=== PATIENT | female | born 1990 | race Caucasian/White ===

== ENCOUNTER 2023-05-31 16:06 | Outpatient (OUT) | payer BC, SELFPAY ==
--- NOTE | 2023-05-31 16:10 | US_ITS ---
[place] [id number] Patient Name: MYA CASTANEDA MRN: [id number] date: 1990 Sex: F Assigned Patient Location: US Current Patient Location: Accession/Order Number: [id number] Exam Date: 05/31/2023 16:25 Report Date: 06/03/2023 07:54 At the request of: ROCK HARRISON Procedure: US OB transvaginal EXAMINATION: US OB transvaginal HISTORY: Missed menses N92.6 COMPARISON: No relevant comparison available. FINDINGS: Bergeron intrauterine gestation Gestational sac: 1.79 cm, 6 weeks 1 day CRL: 0.62 cm, 6 weeks 3 days Yolk sac: 2.2 mm Heart rate: 119 bpm The uterus is normal, anteverted The ovaries are normal. 3.1 cm anechoic area in the left ovary likely represents a corpus luteal cyst. The cervix is closed measuring 4.2 cm Clinical age: 7 weeks 2 days Clinical CLIFFORD: 01/15/2024 Ultrasound age: 6 weeks 2 days Ultrasound CLIFFORD: 01/22/2024 US/US OB transvaginal IMPRESSION: Viable bergeron intrauterine gestation measuring 6 weeks 2 days Electronically authenticated by: IRENE ZUÑIGA Date: 06/03/2023 07:54
== END 2023-05-31 16:07 | disposition home or self-care (01) ==
LOC: US 16:06
PROVIDERS: Visit Provider Obstetrics & Gynecology
DX: Z34.91 Encounter for supervision of normal pregnancy, unspecified, first trimester (principal); Z3A.01 Less than 8 weeks gestation of pregnancy; N92.6 Irregular menstruation, unspecified
CPT/HCPCS: 76817

== ENCOUNTER 2023-06-28 16:34 | Outpatient (OUT) | payer BC, SELFPAY ==
[2023-06-28 17:12] LABS: Estimated Average Glucose 105 mg/dL; Glycohemoglobin A1C 5.3 % (4.5-6.2)
[2023-06-28 17:15] LABS: Basophils Percent Auto 0.3 % (0.2-2.0); Eosinophils Percent Auto 0.5 % (0.9-7.0); Hematocrit 34.5 % (36.0-48.0); Hemoglobin 11.8 g/dL (12.0-16.0); Immature Granulocytes Abs Auto 0.02 10^3/uL (0.00-0.03); Immature Granulocytes Pct Auto 0.3 % (0.0-0.5); Lymphocytes Absolute Auto 2.5 10^3/uL (1.2-3.8); Lymphocytes Percent Auto 33.2 % (20.5-60.0); Mean Corpuscular HGB Conc 34.2 g/dL (29.9-35.2); Mean Corpuscular Hemoglobin 29.7 pg (26.7-34.0); Mean Corpuscular Volume 86.9 fL (81.0-99.0); Mean Platelet Volume 9.6 fL (9.5-13.5); Monocytes Absolute Auto 0.4 10^3/uL (0.3-0.8); Monocytes Percent Auto 5.4 % (1.7-12.0); Neutrophils Absolute Auto 4.5 10^3/uL (1.4-6.5); Neutrophils Percent Auto 60.3 % (43.0-75.0); Platelet Count 286 10^3/uL (150-450); Red Blood Count 3.97 10^6/uL (4.20-5.40); Red Cell Distribution Width 13.4 % (11.0-15.0); White Blood Count 7.4 10^3/uL (4.0-11.0)
[2023-06-28 18:54] LABS: BOX Test Sent Out Y
[2023-06-30 08:07] LABS: HIV Ab/p24 Ag Screen Non Reactive (Non Reactive)
[2023-06-30 10:08] LABS: HBsAg Screen Negative (Negative)
[2023-06-30 12:08] LABS: HCV Ab Non Reactive (Non Reactive); Rapid Plasma Reagin, Quant Non Reactive titer (NonRea<1:1)
== END 2023-06-28 16:35 | disposition home or self-care (01) ==
PROVIDERS: Visit Provider Obstetrics & Gynecology
DX: N92.6 Irregular menstruation, unspecified (principal); Z36.0 Encounter for antenatal screening for chromosomal anomalies
CPT/HCPCS: 36415; 83036; 85025; 86592; 86762; 86803; 86850; 86900; 86901; 87086; 87340; 87389

== ENCOUNTER 2023-08-12 20:31 | Outpatient (REF) | payer BC, SELFPAY ==
--- OUTSIDE RECORDS SUMMARY | 2023-08-12 20:42 | XMS_ITS | CCD ---
Author Organization [facility] Inform ion Partnership [facility] Care Team Providers Care Pastry Finisher Name Role Phone Unavailable Primary Care Provider Unavailisaac HARRISON ., DR WILKERSON Admitting Unavailable CHRISTY ., DR WILKERSON Attending Unavailable CHRISTY ., DR WILKERSON Consulting Unavailable IUKA, DR IRENE Dee Consulting Unavailable CHRISTY ., DR WILKERSON Attending Unavailable CHRISTY ., DR WILKERSON Admitting Unavailable CHRISTY ., DR WILKERSON Consulting Unavailable ROCK HARRISON Attending Unavailable LADONNA CEBALLOS Attending Unavailable Problems Problem Classification Problem Date Documented Date Episodic/Chronic Abdominal pain (1 source) Pelvic and perineal pain; Translations: [PELVIC AND PERINEAL PAIN] Onset: 05-23-2022 Episodic Immunizations and screening for infectious disease (1 source) Encounter for screening for human papillomavirus (HPV); Translations: [ENC SCREENING HUMAN PAPILLOMAVIRUS] Onset: 05-23-2022 Episodic Other screening for suspected conditions (not mental disorders or infectious disease) (4 sources) Encounter for screening for malignant neoplasm of cervix; Translations: [ENC SCREENING MALIG NEOPLASM CERV] Onset: 05-17-2022 Episodic Ovarian cyst (1 source) Other ovarian cyst, right side; Translations: [OTHER OVARIAN CYST RIGHT SIDE] Onset: 05-23-2022 Episodic Results Test Name Value Interpretation Reference Range Facility PAP ACOG PANEL 2: 21 to 29on 05-24-2022 . . Normal [facility] Comment on above: Performed By: #### [id number] #### [facility] [address] [place], [place] [address] Dr. Michael Garrett Age Gdln ACOG Testing 21-[address] [facility] Comment on above: Performed By: #### [id number] #### [facility] [address] [place] [address] Dr. Michael Garrett DIAGNOSIS: Comment Normal [facility] Comment on above: Result Comment: NEGA TIVE FOR INTRAEPITHELIAL LESION OR MALIGNANCY. CELLULAR CHANGES ASSOCIATED WITH INFLAMMATION ARE PRESENT. Performed By: #### [id number] #### [facility] [address] [place] [address] Dr. Michael Garrett Methodology: Comment [facility] Comment on above: Result Comment: This liquid based ThinPrep(R) pap test was screened with the use of an image guided system. Performed By: #### [id number] #### [facility] [address] [place] [address] Dr. Michael Garrett Note: Comment Normal [facility] Comment on above: Result Comment: The Pap smear is a screening test designed to aid in the detection of premalignant and malignant conditions of the uterine cervix. It is not a diagnostic procedure and should not be used as the sole means of detecting cervical cancer. Both false-positive and false-negative reports do occur. . Performed By: #### [id number] #### [facility] [address] [place] [address] Dr. Michael Garrett Performed by: Comment Normal [facility] Comment on above: Result Comment: Francisco Otero, Shift Supervisor Melting (ASCP) Performed By: #### [id number] #### [facility] [address] [place] [address] Dr. Michael Garrett Reflex Criteria: Comment [facility] Comment on above: Result Comment: The HPV DNA reflex criteria were not met with this specimen result therefore, no HPV testing was performed. . Performed By: #### 4 [id number] #### [facility] [address] [place] [address] Dr. Michael Garrett Specimen adequacy: Comment [facility] Comment on above: Result Comment: Sati sfactory for evaluation. Endocervical and/or squamous metaplastic cells (endocervical component) are present. Performed By: #### 4 [id number] #### [facility] [address] [place] [address] Dr. Michael Garrett US PELVIS AND TRANSVAGon US PELVIS AND TRANSVAG EXAMINATION: US PELVIS AND TRANSVAG HISTORY: Pelvic and perineal pain COMPARISON: No relevant comparison available. FINDINGS: The uterus is normal in size, contour and myometrial echotexture measuring 8.8 x 4.4 x 6.1 cm. Anteverted. The endometrium measures 5.9 mm, normal. Linear hyperechogenicity within the endometrial cavity consistent with a normally positioned IUD The right ovary is normal in appearance measuring 5.5 x 2.4 x 2.8 cm. Normal color Doppler flow. Area of anechoic echogenicity measuring 2.1 x 1.8 x 2.1 cm, simple cyst Left ovary is normal in appearance measuring 2.1 x 3.1 x 2.3 cm. Normal color and Doppler flow IMPRESSION: 2.1 cm right ovarian simple cyst Electronically authenticated by: IRENE ZUÑIGA Date: 2022-05-18 07:[address] [facility] Nursing Assessmenton 021 Nursing Assessment [id number] 3 [id number] Normal [facility] Coding Summary.on 08-16-2020 Coding Summary. CD:[id number] G h0bWw+PGhlYWQ+YP0PRHA aR54peSXcyA5NT7oXPT4A WRBQYMZZSX6PWA3ajRG4U VawD0IvanCg XlkuoMLcSL04MHs3RJA7v HwrJWtgbY2ouSVlT3e7Us FyCT41lK02XNrwBKTnNoM 3LjZpbjsgbWFy L3tkJgQjhKSsBhz+PHRhY mxlIHdpZHRoPScxMDAlJy YwuPvuZY5eSs3kZJLsFPI vbGxhcHNlOiBj z9hxXRZmOKqhAA9koAypM 2TywED4MMOod6y3Wt56jH I+WGWmGIG7uCinGLpwl15 4SlHny8xeBON3 uCZkUNdvXSE7C12wo2B8N DQoFOQrDUN8zEI0jA8kvW xniihtB4RgiJDpPsS0LTX 9aOSnjR3wcJma nykyoJ7eWlh+R23MBR5VO GAKHF4AJgs4H7QgCxqqzL I+HC21ZNDeGH58wCZnuWI lc3hpcVt8KqUi HCZrGYK2vWigLZstv6BqJ UPdX82kwDCjf9Q8KAGsjZ yyaJXfJeOmyJY1wU6lVFg nxdaqt4qmwuip Pgigc3bokt38qS11Q74aF ZqtZNCwEEE9CXHbHMSyeA igub0zaX8eVf7+RDxvu0d rn2jigFk6XqYl KCMzxlBrqZfkMBX2n7BeK s82B9PeqYkun6KyAnr4vj 94qUVqi2M4lZU5UDsnSNO gsV8oECvwIpZ8 ORCkMyMavH39oVAsWPxwZ i5veOjbsRedGS0hSIDpsi xfQKHzeT6hTLCaaPEsgGv kEW5nQJDafoem a625CrOsTOM6HDMsbPPtG 5BzfD9iKfFrYFRmSDNqO3 ZboCZzPXebG411KEdiWvB 7LRBzrbBmA3Ms VXDfgCtwReT0h8I5Ud6Yx 0YcgrfwBZH8FCbkRHW0Jl M7NzEdBnG3A0EtLak2LBX xmGhjFW4yZ3Jr PLYalclxidvqvNE1SUSoB OAwzB20yBTjYYbtMn6ep5 O6m629NHPnSHNvuZ79Hp1 udDogMTBwdCBU iQ1jvmmua8pzetfmEdQcU BVtKSz6YBa4MFWoaFapZw LwYHO7QgZ6YFM9sAQakA2 btDjynwiwvQ1y Oyc+T55pvT0sXHY1YXM9o aknLYHfyfAuVU12LQ40T2 RyPjwvdGFibGU+PGRpdiB jlQvbFE3nCmLa x2zya9EgDMciQ2WdZKXuL MytXtt3MCQtHFW9jPU5yJ 4kKSUlPPigo0Q3jQV8R0S gulUlcy1ot7fc SXXpVGwiJ36hlMLhk2M5J UApdGF0INQxgVdoOwIqcF 93Oyc+JBVbcAmlp5GhPej qt0lks2vhvAc9 OuGiDOOnwxBuwQzkZMK0d 6VdKw16W20aYJobSCHqGR SoYTAzSJWduMnvvk5fqV5 wIi8+PGNvbCB3 dKJ0kM7xXABvUkB5KKhsD 498RtDfiPZaPdoky6soa0 oaoBl5JhKsQLIalkHbgIh aQFY5p1TcTv44 J33qOHybVCFnLKMuELSoA EYhjUvzbb6kqP5kAd8+PC 6ar5ymxl86pP68xEI+PHR uBRX8jWvhDYxy RRDdhF0oFSwlYgO4MIIlL xWbqA34zMTjACxfFk1hqJ gziJfjLF7bAWHvdjmdu07 1CpJdi7kxHSOb xXVePDtuSAF5A91uw1Q2S PVrONQcJRK2fEZ1fP4qhX lnbjogbGVmdDsgdmVydGl mSUoyTFqbG406 IHRvcDsnPlBhdGllbnQgT eJeSMn8J9AdWyw7RVHeuD cqNY5pbIYcZZvzZb2ujVl rhIelRX4rABVw eeiks491IhDtm8vfDJGqa OYmJZijKYH0M72qc4S7LD MyGGCzVJT5zIV5cI2vmDv nbjogbGVmdDsg moTruTcaDWpbHFiaY040G HRvcDsnPkJpcnRoIERhdG M0LE97EE76sAPbg8G9oBN 7Z0YeDEGsjjkc qokqmBR6BJZbTZWmvT58M e5zhUhmKm2eBTEcTVE4RI KsdOMeB7JavZ8qWpLgCNS vJWGaF8CotSRm IWcrH200PCnvGsM9WKYas iYrZ2RzRCMeyWsaIoA6w8 P1Rt7MB7M6KJ96MC42gAV pr5D9vJL3J1Fn NWUwscmqlqeudAC5QZElT EQrmK19Dx6mhDyjWt7gYR ShMSL7AHVpcKAwU0YtqB6 yOiAjMDAwMDAw G4YhpWZeCGaoA641JKtjO iV4MJOtrdIeD5DlEFLzjS mrUqY8m0T2Pg0DIXo0BM4 3KG11dIEfe0V0 eYV0E3MnLBRndkbyjhciy TN6OGJaQJPzkE23Lm3yfE wlXr6vGQKzBJZ1MUHyoXH oV7IkqB2lSzDa OKMaRUGvX3UbtLMqJJomX 440AUcsIoF4VYUwzyTkF6 LsQVEmsQibWtS1j5P4Ja9 RHTIzPD31HGB8 iGI7JP88KC14N5XoGmlnz GFibGU+PHRhYmxlIHdpZH RoPScxMDAlJyBzdHlsZT0 lMd6tHKXfJZZg cOkebDLyJkAdc8bsQCVeP FgkJF3qjVvjV4KxlJD8WX Abi8w0Si73J20eK3GvaNR +UBPoqHB1rWF0 lO4sYnYgCpM1KUqzB309C gSbyISrQrvaz8xej8npkB f4RqT0ZGYaurUbpHgoPBT 3w8YtZa69R72y IHdpZHRoPSIxNSUiIHZhb Hgojo3ytR0mGs8+PGNvbC L2rXU5fL3gChHiDlX3HQc aL534EwYugNVq Njchx5bkr8uacSd5ZgFiA JHfhiLxnDjeLLU2m1PcAi 30C3UmcQfqg8JzTwn7ih2 5hVQfx5Z3mRY7 I3DdIDBwrjenwSEqqLlaJ G6uGZWfgorwREKuwY9zDD AvB6u4ZnHoXzB4BOahK4P klpE4NXGqrTMb HAxzOYQ1H13xq6T9VJDwQ VEmNUB6dDA5cU4hyJyjan ogbGVmdDsgdmVydGljYWw mQMeeZ791NHYe tMvbOJExbP6hONQduQOfo DcrCC5cMWKlbzftIdBQKz lLEy2uFFVWXoRJI7PzYIs vdGQ+PHRkIHN0 eCdlPNnjLJNphK6pGFYeU 2s6EcXoWzB2BAoeR2NjWZ DbdtjqGi58vD1iTpUjNrB 0MXirA6MdhgE2 DAUhpPAbTFsgLAT4P45pr 0U3KMBtUEZhVRN9fCU0eI 1hbGlnbjogbGVmdDsgdmV ydGljYWwtYWxp W710WTPqqCymNqX8JrAkL jY0WNL0R4IrNge7WQXfuD rzUF1lyGNnPUtqXj4rjXt aySuwIJ9tJRJr cocsBXWxiC4wLKBjfVXkz HxxHD1fKDEcscgko696Oc DiWJT0BWYqwXXmG3YpvO5 yOiAjMDAwMDAw T2XwgYUoSNubY621ENryQ zP7LQBlaaGxC8LzFWCggC bmLnH5i5R6Ay3lKGOKTZY yczwvdGQ+PHRk HHB7zAuiRHvcRJPzaJ9fS FNgS1f6KyNxPhC2QRzhI4 YeMDYeuhvdIo42gL5uByC fLsB1OLdiJ6Lh yjS2QGDxuOHcIFgfPMB2T 26oa3C3NNDbAQWrPTS9gD M2xI2ydBynosxgiINqvNr gdmVydGljYWwt ZXbqK387HHJvdXkxYgKyj WFsZTwvdGQ+EBTmLXZ2dI yrKDclNNEtbX7yRRYcM7r 8TdPeLlD6MOoq K0LtSDYsmxpeGu64uY7hD pIlNxC6HPdxE2KhngU4BP MzzDXlWLymJKL4X66ya9Y 6YWMkIUUaLOH8 dZK4iC1tsGfszjwsnXJjf DsgdmVydGljYWwtYWxpZ2 36HPIwvSeyUn98fBOziGa adgB4B5NbGkfg dHI+UV68HDLwFA47hUPrr CUzs9pouLh8QhDqOWUcHY I4bTnaKIvew8JaNMWjO49 gxSNgg3L6CPJp qWgaiKRlXyAtuOF0cI7tC Jqyswpjz3fhrqfoLefhp2 pqcy31hB70B03qICxnERO oPSIzMCUiIHZh sVtfix5byL8hGn4+PGNvb VQ4fMU5sR8pPyXsUjH9OR gfS604RjNbjVNnOkivd9c fr6ddxNp3GoSo YCOsbaDfqZenNMR0y6MtT w37E55sQGgaIFGgVACtNT MnQULnsLfsxc2baT0qTp9 +UM5ak6telh97 kT04tPK+FTTdPVJ0kLnaW XeyWNYysE7vGEgjJoI5ET UzKtFzjI28gKOpIDinOn1 luRffiVhkFB0p TPVcoegxr681LlNiu4aoU DGozYWfYEicMZB6L10tt0 Y0PGWrPCAuVRF8qTL6dQ2 hbGlnbjogbGVm dDsgdmVydGljYWwtYWxpZ 718KDGwoFobEuRoiFXxE9 zlxqJWWB7aRusccKS+PHR mFSD9kQjgBMnm CGKkfP2wYKIeG1y4KqTzR jB6FAyqE0NqrdF4SGLbbG QaBNKyiFGDxE8mkltmb0e vcjogIzAwMDAw GAl7OMg7KTIrmLglVaUuS GW7MrN5LGA1uRRxmB3olJ rcbmxhrQ0dWdl+RklOOjw vdGQ+PHRkIHN0 pZyqGSigTCHcbS0wEQQaQ 4i3TyGgHfO0LIvnH4Qrdm O5FIPoqNLtZCFlnBQZdI1 sfdfhw0tmsfyp WeIpJMHyJVf2ZDw0AJTvh YsyItNhALF3FtF4SUK3nO EbaZ9hxLncapjkfJ7gJid +TVJOOjwvdGQ+ SNYiWQK3jOmpQMxiPASuh Y7jRLDuD2p6NlRvEgD0RB hcM2MydhW2RKVdyMYkLJG khIFHsK3bajgc i4eqhuslXjIzPTGcSOo6A Qf6HGGvmAzyCcIoBEJ0Fg W7DEK4zEWytE2rmQtkwvq nzP5kOxh+UGF5 FWC0CY55HA14Z1VvHlzrt GFibGU+PHRhYmxlIHdpZH RoPScxMDAlJyBzdHlsZT0 qMj2wQMAiYDSt bGxh (more content not included)... Normal [facility] Coding Summary.on 08-15-2020 Coding Summary. CD:[id number] G h0bWw+PGhlYWQ+MN3EJHE fD05pdOOslQ6WH9rIPZ0P SXARLLAJNE9QAO1rwQJ2N TkoY7YqvtJy QstsnMMxTV49ANu8RDU7t RvcWJjaeJ7wyBUhW4t3Pl PkYA26jM33OAtsPDCtOcQ 3LjZpbjsgbWFy H5saDtEgcAEmZbu+PHRhY mxlIHdpZHRoPScxMDAlJy ConBwiZL3hTt4dNKFrJDN vbGxhcHNlOiBj e5ufBEVeKSzlGR4mwIssG 3KusEJ6VSHpg2x0Xk94iD I+SPHtEPY7aJsrWVvfo77 7OjLgc6viRFI3 qKFvUErwNSR1Z18kv1E0Z XNjRDSjIGJ4dOB2hX6zaJ vezpfnL1HozLVpKfK7KBG 2nMAnxU6uyOuc efyqxF9dRet+S67SUR2CF ADFVH1CZzv6Z8GjDdffwR I+MW93FHDdHW57jWNdrAH nx8uutKa4GjXj RIGbCDM6fCglCDkpc9MlB MTyU08tsZBpl8I1RNOvrF qlrQAaTuEcaGM7fL1sGNw nvxpth6aypajr Nrscm8lafb56oW87Z36jE SslSPKuQQQ6NVHqNFGbeV ygho6tnF2lWz0+UTgfl6u iq4kajTz7BwOw RTLahuRvqEzcPON2k0RmJ m46L9ZfmKiux4XmDac0lq 29tVKjh6V4bTO9AQryHSK hoN9dMDhvPtP8 DJUdCoBlvK36zDMqIMrnW n5weVjdeSkuRQ4nIGJfrv nrUCKvgH3pYXWodSFirTa kSK7gHAHnytbl w349ErScPNK8MVVroHQpI 3WvyH2kUqFiXNYfBJOpN0 OqgCKnRHcpY976EWxsPdX 4FEEjzaMmR0Qi KMPfdDnpJpB3o8W4Ea6Us 7BrmaqjDGP9ZChuQNZ7Sr D9OiVrAiN8E1BbQwy0KNP dgRinAO7pB4En PHQhtlikfeqqfLV6KFHgK OKqoP27bJJvUCznNd0xi7 L9v590TSOkLYOtvA37Xi0 udDogMTBwdCBU iO3yrkzni6toucocVuAnG WSgXPx4NTv0GOKcoEmpXx CbWCO3TdN1IHO4uWOptS8 ycXnsvgwkqT1p Oyc+V89boD2oKSR8VJZ0v hmwYXYewlJdVL37HL49N4 RyPjwvdGFibGU+PGRpdiB iyMmeIP5yKzAn i9doh0ZvQFlzG0BeQFPiW AamBik6QCBqTFF7lPY2gN 1hODBpRGsgc7G3rDF1X5J komCxjm0pn5wq CNGyGDieE74jkHJjw7O7V UYriEQ8BFIirMraZjLqjQ 93Oyc+UELtsVjzf5CuFbx yf1hac2parAg2 FzFrAHOhywHmtPqdPYP6i 1YhCb22Z69lARimVTKcFB GjKVFnZRYqgFlnmt2qrP5 wIi8+PGNvbCB3 lVF4kS2iKMRmNgD4QKmbW 988ZuEafRBkQoxpw2kiq5 kzdTg8WwKnQHHmcbNymOi mHNF5u7GjIs31 Z32oKYzaMGHmKQZrHTHzJ ZVxgDzgjx0ctT3kCi3+PC 0wh8gyfz01oK31kIY+PHR lART8oHqnTTfa TINdmV8xSTvbJlJ0AGHaW jNfrR89eVYbTPlsZl1saW owlWflFN3gUEGqrqrba35 7OnIzh6dnSHAb nIYvRKukQBX8L49cq4J5H CCfYQZtWVD6tNU3qU9kvX lnbjogbGVmdDsgdmVydGl nOBmxKPxcP912 IHRvcDsnPlBhdGllbnQgT gZxCGj3T6QvWzs5VKFkcY bfLT0drBMxCUwnYc7zcAg hjZnrJR2bUKAu owwzx816WtRdl8akFYMeb GRpLLyqZTE6S56tw9J3NI VuPPIgCDB9zFA5yI3idQd nbjogbGVmdDsg jjGyzSnuHHbzCQekO410A HRvcDsnPkJpcnRoIERhdG E4YT60UN26pYErw0U9sDM 6L3XeIJUstenk onlskPW6AYJdKOMteC55R r3nuHhdSe9mHRJuQDQ9LM TpvZTmZ7IeeD5qIkClVCJ tVDOzJ2UluTXm KPrwD357KEbhOgL0JZZhv aGxG7ZuYJVuvMzjAcT5r1 R5Qr9FF7U3RC04YL91kOZ lk0G6gMG6E9Yr NMHrkeqqscudkKZ8TDVeE PXmgC06Dy6ddZouRo9fQO TuCBP7ZYVnuJIyW5JoqA5 yOiAjMDAwMDAw Q6GfyGNqMCxdQ244CYdlP gE2IPEwxbOzL3WpKPSgnB uwVmH4f5L6Jt9SRJr3WP3 2OT27iNHcm2J3 pWX5L4CeALDhiaztwaoxt JW9OUKaOSTfcI13Tu8dgE lmQx2jAQPvWZD6METbsDK hH8FsoK4vBeKd CBQkYVAcD4ZisGRnZNeoC 611OAwvLcC9RCQhlbBeB0 UnHZTsdUnnRmE3k8Y9Hm5 ETUUwYP02PSO5 dMP1MM73KS50X0GoDzdhq GFibGU+PHRhYmxlIHdpZH RoPScxMDAlJyBzdHlsZT0 nXz0lUFTxGOWu jVnunMQyAeWuk9beKJCoC CyxSN4dkIhrJ0JwpTN0SP Qmc9w8Mh74V19lM4XzvCC +UEZsoGH4hDB9 pM0nNdQaLrG4FKrfO747V wTntIStYehbj3zlz0atnN r8WkH9SJMceoXfoFpqCHW 7w6VtVt10B45f IHdpZHRoPSIxNSUiIHZhb Dbxnf2dnV9qWq1+PGNvbC B2vZC1zH7gSzPhHrJ5UTx sF180FxXxaHKc Xelwr3nhi1lioRe1OgYoN KUvrnNlvXcxPGR9c1GrFi 28Z2DjuArjn0QrElt3nu6 1yWRrt3H1aLG1 L9NdMERjsooqqZRrgZvtZ D6pGLEoetkqUOHjbM5yDU OvW6t6FcMcKrT9XWsxM9U qoxU8VPEuoBHf ZIzcWRW3V57my4E8EOScW DRlTDY0uSQ9iH1zmTbhjh ogbGVmdDsgdmVydGljYWw nQEfjN262KIVc iRqqXZLjwJ8rDTBtjQAwv FjwAX7ySPRfixqhIbDJRy xVDn4zRAIHTwRWS2ZrNGt vdGQ+PHRkIHN0 iEzpIVzzNJXdwT8zYDOuF 2u4EnZaBhE2HNliY7WgIF TwzggdOo66bG0hHbHbNuD 9TSpnH1IptsW7 ITQnfYAwLZryXDS0X66gn 4I4LJNvPYCjPLC1kOW0mC 1hbGlnbjogbGVmdDsgdmV ydGljYWwtYWxp N110NSFguWiyZqB0TiVyG qD2WQY6K4XcIcg4KDEwuE xdSS9gvVOoGUdpBh6fgCl mhWcnHH2xYWCw xuwrFATseJ1dXLMcnLXrm EhwEG2dYGWunuklt905Ox IvPZX1LSWusYAyQ7YuhS1 yOiAjMDAwMDAw W8IoqNQyBUvdR373RLihW lR6HGDeegUfC1KkDEWruG lkCzX6b4L0Mx9aJSARCVC yczwvdGQ+PHRk HNH3tUnyRAghGSOqdT8pN VMtY8g9WeWyRzD1LXfoU1 ScRIZqbieyXx83lO4cDeF pOfU9XIezX4Wq kcO7NGMumNRnXAnfRBA9D 49lm9L0ZRKvPEYmVWV6yH W1zL2iiBqitxvuoFQeuKu gdmVydGljYWwt OSleY192BLZfsGwnRmOrq WFsZTwvdGQ+JNAyUQV7tA ixKXewMQLxpE4zWQDhN9o 9WdImJpE8JIqh M5RlSLWmcjrxYo11qE2xX jJsJwT8JJinU0TksqG0CP PoeJGiPJkwPRK1B45fk2C 1BOHqOQIwEEK9 jLE2yQ6xrUotimulsMTcq DsgdmVydGljYWwtYWxpZ2 91GLWfqCthWbefoIN7vAG udDwvdGQ+PC90 ty57P5CxSjhgXep4SVDtZ RN6pHI6hI9tNKLdBNvty5 S0nDO6V1AzatRlvn5wt6d xAIDeDJieH11z wEYph0L5BEJanRK6KBAjn IftEcTusS40Pas+PGNvbG trg5EbQvwjm2ajl2bveLa 9IjMwJSIgdmFs hAzwNIX1h5CqFs86Z55qM HdpZHRoPSIzMCUiIHZhbG kmjc1deN8gDi1+PGNvbCB 1uAZ4tJ2bCeIq VdG2OXfmZ273WzGhrZQcQ gvdo1wmm0yzhAo6OvWvVB CrgoTjpIbnRVH4y2MlRw7 1I5InmQtkf0Fs Yva1xo11pHOlw6F4cEO7I 3BhZGRpbmctbGVmdDogMC 4mSHGkgtlrLPYwmP9nPAJ vP6p5QsDjGxM8 UQmfW5VdwwD5ZVTwcREfH CFqvBBJuK6yyhzah8fnoz cgLmArCGIhUJg1QAg9XVJ saWduOiBsZWZ0 PcD1VHT4xAIzxX7zqBwlo akloN2wLck+WFf8s2uadB CrTQ5rhJB7SK60YW59dFU uh2Q0xBN0S0Am RSLwkfzkvvqimDS3MWArZ ZMwlU45Xh4hwQphXy9gDN FnSTF7FRHijTWnM7WhvI6 yOiAjMDAwMDAw X6CwyCCiQByeP976GCmrA nB6YPMcifEyH5JgWVLelW lpZjR5i3R9Po8RKO17IY3 3GA18lLVzg5J4 sLU2P4ZuYYGbaizfcecti WN5SSKoBWOrjY51Tk9hrP zpHk8yIGNwAVC3PQKnmMB vS5VexL7zUzSs GRGyOAHuW9OqkCNpVKqyR 637GQerXtG8MUChonNlS2 IxREHxzJvkElZ5z0Q5Ug9 VBg46MF62EX23 bXBxn5T4wMV2E0YlOWDka qhrexbqzJX8IHNfERSqsH 01Xa6buNitDh5kRLLrDYP 2BICdgGFvS8Es wR2sGcStOKUbBZZnE3Ybv JZfXDvtG983ETldRgD5LB NwbvVcB8QcRZStqKpnOfL 0m3E9Sh5ZVUhw skd7G9FmAefsvMQ+PC90Y PMzSB35uNDsmJMne5bvyV u8CiDmJILxQDS2uWjpFWi ca5PzSFGnI24q bGFw (more content not included)... Normal [facility] Consent for Treatmenton 07-20 Consent for Treatment [id number]:127 Normal [facility] General Message Officeon General Message Office --- --- --- --- - -- --- --- --- --- From: Basilio, VivienInbox To: MYLESMYA Sent: 08/06/20 02:30:52 AM EDT Subject: Discharge Summary Ready to View A summary regarding your recent visit is available in the Documents section of your health record. Normal [facility] CBC w/Indiceson 08-05-2020 Erythrocyte distribution width (RBC) [Ratio] 15.1 % High 10.9-14.2 [facility] Comment on above: Performed By: #### 2 [id number], [id number], [id number] #### [facility] [address] [place] [address] Hematocrit (Bld) [Volume fraction] 26.0 % Low 34.0-46.0 [facility] Comment on above: Performed By: #### 2 [id number], [id number], [id number] #### [facility] [address] [place] [address] Hemoglobin (Bld) [Mass/Vol] 8.6 g/dL Low 12.0-16.0 [facility] Comment on above: Performed By: #### 2 689209, [id number], [id number] #### [facility] [address] [place] [address] MCH (RBC) [Entitic mass] 26.3 pg Low 27.0-34.0 [facility] Comment on above: Performed By: #### 2 764527, [id number], [id number] #### [facility] [address] [place] [address] MCHC (RBC) [Mass/Vol] 32.9 g/dL Normal 31.4-36.[address] [facility] Comment on above: Performed By: #### 2 733743, [id number], [id number] #### [facility] [address] [place] [address] MCV (RBC) [Entitic vol] 79.7 fL Low 80.0-100.0 [facility] Comment on above: Performed By: #### 2 555872, [id number], [id number] #### [facility] [address] [place] [address] Platelet mean volume (Bld) [Entitic vol] 8.0 fL Normal 6.4-10.8 [facility] Comment on above: Performed By: #### 2 880909, [id number], [id number] #### [facility] [address] [place] [address] Platelets (Bld) [#/Vol] 259.0 E9/L Normal 150.0-500.0 [facility] Comment on above: Performed By: #### 2 399547, 0706936, [id number] #### [facility] [address] [place] [address] RBC (Bld) [#/Vol] 3.3 E12/L Low 4.3-5.9 [facility] Comment on above: Performed By: #### 2 372564, [id number], [id number] #### [facility] [address] [place] [address] WBC corrected for nucl RBC Auto (Bld) [#/Vol] 10.2 E9/L Normal 4.0-11.0 [facility] Comment on above: Performed By: #### 2 629747, [id number], [id number] #### [facility] [address] [place] [address] Discharge Instructionson Discharge Instructions [id number]:127 Normal [facility] Inpatient Clinical Summaryon 08-05-2020 Inpatient Clinical Summary [address] [address] Clinical Summary Person Information Name: MYA MYLES Abdulaziz Ifeoma/[facility] Age: 30 Years : 1990 Sex: Female PCP: Chao Blackwell III, DO Marital Status: Single Race: White Ethnicity: Non- or Language: Algerian MRN: Visit Id: Visit Reason: Speciality: Acuity: 1 PP Enc Type: Inpatient Med Service: Obstetrics Arrival: 08/04/2020 06:59:23 Discharge: 08/05/2020 17:20:00 Dispo Type: Home (Routine DC) Address: [address] [place] [address] [address] [place] [id number] Provider Notes: Diagnosis: Depression during ; Obesity complicating , third trimester; Supervision of high risk in third trimester Problems Active Insomnia Chronic fatigue syndrome Attention deficit hyperactivity disorder Obesity complicating , third trimester Supervision of high risk in third trimester Depression during Ovarian cyst Smoking Status: Never Smoker Functional Status: Sensory Deficits: History of Falls: Mobility Assistance Prior to Admission: Independent ADLs: Independent Current Level of Assistance for Self-Care/Mobility: Cognitive Status: Allergies No Known Allergies Laboratory or Other Results This Visit (last charted value for your 08/04/2020 visit) Hematology 08/05/2020 6:00 AM Hct: 26.0 % -- Normal range between ( 34.0 and 46.0 ) Hgb: 8.6 gm/dL -- Normal range between ( 12.0 and 16.0 ) RBC: 3.3 E12/L -- Normal range between ( 4.3 and 5.9 ) RDW: 15.1 % -- Normal range between ( 10.9 and 14.2 ) MCH: 26.3 pg -- Normal range between ( 27.0 and 34.0 ) MCHC: 32.9 gm/dL -- Normal range between ( 31.4 and 36.0 ) MCV: 79.7 fL -- Normal range between ( 80.0 and 100.0 ) MPV: 8.0 fL -- Normal range between ( 6.4 and 10.8 ) Platelet: 259.0 E9/L -- Normal range between ( 150.0 and 500.0 ) WBC: 10.2 E9/L -- Normal range between ( 4.0 and 11.0 ) Urinalysis 08/04/2020 10:18 AM UA Bili: Negative UA Color: Yellow UA Glucose: Negative UA Ketones: Negative UA Leuk Est: Negative UA Mucous: Trace UA Nitrite: Negative UA Protein: Negative UA RBC: 0-3 /HPF UA Squam Epithelial: 0-2 /HPF UA Urobilinogen: 0.2 EU/dL -- Normal range between ( 0.0 and 1.0 ) UA WBC: 0-5 /HPF UA Spec Desc: Catheter UA Blood: Trace UA Clarity: Clear UA pH: 6.0 -- Normal range between ( 5.0 and 9.0 ) UA Spec Grav: 1.015 -- Normal range between ( 1.005 and 1.030 ) UA Amorph Nadia: Present Blood Bank 08/04/2020 8:11 AM ABO/Rh: A POS ABSC Gel Interp: Negative Measurements: Height: 162.5 cm Weight: 92.1 kg Blood Pressure: 116 mmHg / 79 mmHg BMI: 34.88 kg/m2 Procedures No Procedures Documented Immunizations No Immunizations Documented This Visit Final Med List: ibuprofen (ibuprofen 600 mg Tab) 1 Tablets By Mouth every 6 hours. Refills: 0. multivitamin, ( Multivitamins) 1 Tablets By Mouth every day. Care Team Members: Attending Physician: Funmilayo ESCOBEDO MD Consulting Physician: Referring Physician: Follow up: With: Address: When: Sukhdeep Schaffer [address] [place] [id number] Business (2) Within 6 weeks Comments: Call Dr if fever>100.5 F, heavy bleeding Call for any problems. Nothing in the vagina for 6 weeks Type Location Start [facility] 09/15/2020 9:00 AM 09/15/2020 9:15 AM Confirmed Patient Education Information: ibuprofen 600 mg Tab Normal [facility] Inpatient Patient Summaryon 08-05-2020 Inpatient Patient Summary [address] [address] Patient Discharge Instructions PERSON INFORMATION Name: MYA MYLES Date of : 1990 Current Date: 08/05/2020 18:16:41 PHYSICIANS Admitting Physician: Funmilayo ESCOBEDO MD Primary Care Physician: Chao Blackwell III, DO PCP Comment: Discharge Diagnosis: Depression during ; Obesity complicating , third trimester; Supervision of high risk in third trimester Condition at Discharge: Stable MYA MYLES has been given the following list of follow-up instructions, prescriptions, and patient education materials: PATIENT FOLLOW-UP INFORMATION Diet: Regular Activity: Expect mild pain, Expect minimal amount of drainage and/or bleeding, Activity as tolerated Wound Care Instructions: Remove Your Dressing IN: Days Call Your Doctor For: Persistent or heavy bleeding, Temperature above 101.5 degrees, Persistent vomiting IF UNABLE TO CONTACT YOUR PHYSICIAN AND YOU FEEL IT IS AN EMERGENCY, GO TO THE NEAREST EMERGENCY ROOM OR CALL 911 Home Treatment: Devices/Equipment: Special Services: Additional Instructions: Physician to provide the following pending test results: None Follow up: With: Address: When: Sukhdeep [place], [facility] [address], [place] [address] Business (1) Within 6 weeks Comments: Call Dr if fever>100.5 F, heavy bleeding Call for any problems. Nothing in the vagina for 6 weeks In the event that this physician does not participate in your insurance network, please consult with your insurance company to find a nearby participating provider. Type Location Start [facility] 09/15/2020 9:00 AM 09/15/2020 9:15 AM Confirmed Comment: JUSTINO Burton VANESSA L, have received the attached patient education materials/instruction s and have verbalized understanding. Patient Signature Date Clinican/Nurse Signature Date MEDICATION LIST New Medications [id number], [address], [place] [id number], [phone] ibuprofen (ibuprofen 600 mg Tab) 1 Tablets By Mouth every 6 hours. Refills: 0. Last Dose: ____Next Dose: ____ Medications to Continue with No Changes Other Medications multivitamin, ( Multivitamins) 1 Tablets By Mouth every day. Last Dose: ____Next Dose: ____ Pharmacy Information: [facility] PATIENT EDUCATION INFORMATION Instructions: Medication Leaflets: ibuprofen (EYE bue PROE fen) Advil, Genpril, IBU, Midol IB, Motrin IB, Proprinal, Smart Sense Children's Ibuprofen What is the most important information I should know about ibuprofen? Ibuprofen can increase your risk of fatal heart attack or stroke. Do not use this medicine just before or after heart bypass surgery (coronary artery bypass graft, or CABG). Ibuprofen may also cause stomach or intestinal bleeding, which can be fatal. What is ibuprofen? Ibuprofen is a nonsteroidal anti-inflammatory drug (NSAID). Ibuprofen is used to reduce fever and treat pain or inflammation caused by many conditions such as headache, toothache, back pain, arthritis, menstrual cramps, or minor injury. This medicine is used in adults and children who are at least 6 months old. Ibuprofen may also be used for purposes not listed in this medication guide. What should I discuss with my healthcare provider before taking ibuprofen? Ibuprofen can increase your risk of fatal heart attack or stroke, even if you don't have any risk factors. Do not use this medicine just before or after heart bypass surgery (coronary artery bypass graft, or CABG). Ibuprofen may also cause stomach or intestinal bleeding, which can be fatal. These conditions can occur without warning while you are using ibuprofen, especially in older adults. You should not use ibuprofen if you are allergic to it, or if you have ever had an asthma attack or severe allergic reaction after taking aspirin or an NSAID. Ask a doctor or pharmacist if this medicine is safe to use if you have ever had: ?? heart disease, high blood pressure, high cholesterol, diabetes, or if you smoke; ? a heart attack, stroke, or blood clot; ? stomach ulcers or bleeding; ? liver or kidney disease; ? asthma; or ? if you take aspirin to prevent heart attack or stroke. Ask a doctor before using this medicine if you are or . If you are , you should not take ibuprofen unless your doctor tells you to. Taking an NSAID during the last 20 weeks of can cause serious heart or kidney problems in the unborn baby and possible complications with your . Do not give ibuprofen to a child younger th (more content not included)... Normal [facility] ABO/Rhon 08-04-2020 ABO/Rh Positive Invalid Interpretation Code [facility] Comment on above: Performed By: #### 1 [id number], [id number], [id number], [id number] ####[facility] [address] [place] [address] ABO/Rh History Checkon 08-04 ABO/Rh History Check Verified Hx Blood Type Normal [facility] Comment on above: Performed By: #### 1 [id number], [id number], [id number], [id number] ####[facility] [address] [place] [address] ABSCon 08-04-2020 ABSC Gel Interp Negative Normal [facility] Comment on above: Performed By: #### 1 [id number], [id number], [id number], [id number] ####[facility] [address] [place] [address] Blood Bank ID#on 08-04-2020 BBID# [id number] Invalid Interpretation Code [facility] Comment on above: Performed By: #### 1 [id number], [id number], [id number], [id number] ####[facility] [address] [place] [address] CBC w/Indiceson 08-04-2020 Erythrocyte distribution width (RBC) [Ratio] 14.8 % High 10.9-14.2 [facility] Comment on above: Performed By: #### 2 [id number] #### [facility] [address] [place] [address] Hematocrit (Bld) [Volume fraction] 31.7 % Low 34.0-46.0 [facility] Comment on above: Performed By: #### 2 [id number] #### [facility] [address] [place] [address] Hemoglobin (Bld) [Mass/Vol] 10.2 g/dL Low 12.0-16.0 [facility] Comment on above: Performed By: #### 2 [id number] #### [facility] [address] [place] [address] MCH (RBC) [Entitic mass] 25.6 pg Low 27.0-34.0 [facility] Comment on above: Performed By: #### 2 [id number] #### [facility] [address] [place] [address] MCHC (RBC) [Mass/Vol] 32.1 g/dL Normal 31.4-36.[address] [facility] Comment on above: Performed By: #### 2 [id number] #### [facility] [address] [place] [address] MCV (RBC) [Entitic vol] 79.7 fL Low 80.0-100.0 [facility] Comment on above: Performed By: #### 2 [id number] #### [facility] [address] [place] [address] Platelet mean volume (Bld) [Entitic vol] 8.3 fL Normal 6.4-10.8 [facility] Comment on above: Performed By: #### 2 [id number] #### [facility] [address] [place] [address] Platelets (Bld) [#/Vol] 341.0 E9/L Normal 150.0-500.0 [facility] Comment on above: Performed By: #### 2 [id number] #### [facility] [address] [place] [address] RBC (Bld) [#/Vol] 4.0 E12/L Low 4.3-5.9 [facility] Comment on above: Performed By: #### 2 315648 #### [facility] [address] [place] [address] WBC corrected for nucl RBC Auto (Bld) [#/Vol] 8.2 E9/L Normal 4.0-11.0 [facility] Comment on above: Performed By: #### 2 935689 #### [facility] [address] [place] [address] Consent for Procedure/Surger yon 08-04-2020 Consent for Procedure/Surgery [id number]# 1.00CD:127 Normal [facility] Consent for Procedure/Surgery [id number]# 1.00CD:127 Normal [facility] Consent for Procedure/Surgery [id number]# 1.00CD:127 Normal [facility] Consent for Treatmenton 07-19 Consent for Treatment [id number] [id number]# 1.00CD:127 Normal [facility] Consent for Treatment [id number] [id number]# 1.00CD:127 Normal [facility] Delivery Summaryon Delivery Summary Patient: MYA MYLES Age: 30 years Sex: Female : 1990 Associated Diagnoses: None Author: Funmilayo ESCOBEDO MD Basic Information Gestational Age: Gestational Age (EGA) and CLIFFORD * Note: EGA calculated as of 08/04/2020 CLIFFORD: 08/11/2020 EGA*: 39 weeks Type: Authoritative Method Date: 02/16/2020 Method: Ultrasound (02/16/2020) Confirmation: Confirmed Description: -- Comments: -- Entered by: Caroline HILARIO on 04/21/2020 Other CLIFFORD Calculations for this : No additional CLIFFORD calculations have been recorded for this . Procedure Vaginal delivery procedure Performed by: Funmilayo ESCOBEDO MD. Indication for delivery: labor progression induced. Informed consent obtained: for procedure. Anesthesia method: epidural. Position: birthing bed. Rupture of membranes: moderate amount of fluid, appearance of fluid clear, amniotomy. Delivery of infant: time of 08/04/2020 15:08:00, uneventful, umbilical cord clamped and cut, AMRIT presentation, with right shoulder anterior, left shoulder posterior. Nuchal cord x1, reduced after delivery of body. Status of infant Viable Gender: female. Apgars: 8 at one minute, 9 at five minutes. Weight: pending, but appears as LGA. Cord blood: specimen obtained. Umbilical cord: three vessels. Personnel present at resuscitation: L&D RN. Not suctioned prior to delivery of shoulders. No resuscitation required. Placenta: delivery spontaneous, intact, mono-amnionic, abnormalities succenturiata, sent to pathology. Uterus: hemostasis. Procedure tolerated: well. Complications Maternal: no complications. Torrez/ Baby A: facial bruising. Post Delivery Intact. Estimated blood loss: 400 ml. Impression and Plan Vaginal Delivery: condition: Stable. Maternal condition: Stable. Funmilayo Escobedo MD [facility] Comment on above: Result Comment: Elec tronically Signed By: LAURA MACEDO, Funmilayo Ryan\.br\Date and Time Signed: 08/04/20 15:29 EDT Discharge Instructionson Discharge Instructions [id number]# 1.00CD:127 [facility] Help Me Grow Referralon 07-19 Help Me Grow Referral [id number] [id number]# 1.00CD:127 [facility] Progress Note-Physicianon Progress Note-Physician Patient: MYA MYLES Age: 30 years Sex: Female : 1990 Associated Diagnoses: None Author: Kevin Haley Jr., DO Postoperative Information Post Operative Note: Day 2. Anesthetic utilized: Regional: Epidural. Health Status Allergies: Allergic Reactions (Selected) No Known Allergies Problem list: All Problems labor / Patient Care / Confirmed Ovarian cyst / SNOMED CT 657993436 / Confirmed Attention deficit hyperactivity disorder / SNOMED CT 8646680345 / Confirmed Obesity / ICD-9-CM 278.00 / Possible Obesity complicating , third trimester / SNOMED CT 7602960670 / Confirmed Depression during / SNOMED CT 7166988097 / Confirmed Insomnia / SNOMED CT 654632225 / Confirmed / SNOMED CT 638119166 / Confirmed Supervision of high risk in third trimester / SNOMED CT 24715679 / Confirmed Chronic fatigue syndrome / SNOMED CT 86658910 / Confirmed Resolved: / SNOMED CT 718457878 Resolved: / SNOMED CT 560852059 Canceled: Obesity complicating , first trimester / SNOMED CT 5570876796 Canceled: Obesity complicating , second trimester / SNOMED CT 4759286317 Canceled: Supervision of high risk in first trimester / SNOMED CT 91126723 Canceled: Supervision of high risk in second trimester / SNOMED CT 50868861 Physical Examination General: Alert and oriented, No acute distress. Neurologic: Normal sensory, Normal motor function, No focal deficits. Review / Management Result Review Condition: Stable. Assessment Anesthetic outcome No post-epidural complications noted.. Plan Transfer/ Discharge: Condition stable. Normal [facility] Comment on above: Result Comment: Elec tronically Signed By: Kevin Haley Jr., DO\.br\Date and Time Signed: 08/04/20 10:51 EDT Progress Note-Physician Patient: MYA MYLES Age: 30 years Sex: Female : 1990 Associated Diagnoses: None Author: Kevin Haley Jr., DO Chief Complaint Intrauterine Health Status Allergies: Allergic Reactions (All) No Known Allergies Current medications.Problem list: All Problems labor / Patient Care / Confirmed Ovarian cyst / SNOMED CT 460801281 / Confirmed Attention deficit hyperactivity disorder / SNOMED CT 1669767244 / Confirmed Obesity / ICD-9-CM 278.00 / Possible Obesity complicating , third trimester / SNOMED CT 6096831946 / Confirmed Depression during / SNOMED CT 8467553460 / Confirmed Insomnia / SNOMED CT 923008060 / Confirmed / SNOMED CT 937234247 / Confirmed Supervision of high risk in third trimester / SNOMED CT 46896709 / Confirmed Chronic fatigue syndrome / SNOMED CT 18893770 / Confirmed Resolved: / SNOMED CT 566071671 Resolved: / SNOMED CT 712809283 Canceled: Obesity complicating , first trimester / SNOMED CT 5904373074 Canceled: Obesity complicating , second trimester / SNOMED CT 8336128390 Canceled: Supervision of high risk in first trimester / SNOMED CT 16234287 Canceled: Supervision of high risk in second trimester / SNOMED CT 50814785 Review of Systems Respiratory: Negative. Cardiovascular: Negative. Hematology/Lymphatics : No bruising tendency, No bleeding tendency. Neurologic: Negative. Physical Examination Please refer to Labor floor nursing records for ongoing vital signs, and for intake and output totals while epidural was running. Review / Management Differential diagnosis: Active labor. OB Results Review Labor 08/04/2020 8:11 EDT WBC 8.2 E9/L RBC 4.0 E12/L LOW Hgb 10.2 gm/dL LOW Hct 31.7 % LOW MCV 79.7 fL LOW MCH 25.6 pg LOW MCHC 32.1 gm/dL RDW 14.8 % HI Platelet 341.0 E9/L MPV 8.3 fL ABO/Rh A POS ABSC Gel Interp Negative Impression and Plan Plan Labor epidural at request of patient.. Procedure Epidural injection procedure Date/ Time: 08/04/2020 09:27:00. Confirmed: patient, procedure, site, safety procedures followed. Performed by: Kevin Haley DO. Informed consent: signed by patient. Indication: Active labor.. Preparation and technique: informed consent obtained (from patient before the procedure), positioned (sitting), sterile preparation of site (patient's back was sterilly prepped and draped) (in usual fashion, with 10 % povidone iodine, draped to expose affected area), local anesthesia (1% lidocaine was applied to the patient's back before the epidural was attempted) (lidocaine without epinephrine, _1_ cc injected subcutaneously), approach (midline), needle (17 ga mohinderuhy) (placed via loss of resistance technique, At _L4-L5_ interspace.), aspiration (attempted for blood and CSF), injectant (test dose consisting of 3 ml of 1.5% lodocaine with 1:200,000 epi) (test dose given, Epidural catheter inserted and secured at a depth of _11_ cm at skin.). Procedure tolerated: well. Complications: Negative heme, negative CSF, and negative response to test dose.. [facility] Epidural Medications Administered: Bolus dose consisted of 6 ml of 0.2% Ropivacaine and 100 mcg of fentanyl (2 ml) at 0940. Then a premixed epidural bag of 0.2% Ropivacaine, and 2 mcg/ml of fentanyl was administered via PCEA with basal rate at 10 ml/hour and demand boluses of _5_ ml with a lockout interval of _30_ minutes. The PCEA was started at 0942. Normal [facility] Comment on above: Result Comment: Elec tronically Signed By: Tera Brooke DO, Kevin Nelson.rosey\Date and Time Signed: 08/04/20 10:50 EDT UA With Cult Reflexon 2020 Bilirubin Ql (U) Negative Normal Negative [facility] Comment on above: Order Comment: Urina ry Catheter Insertion triggered Urinalysis With Culture Reflex order by discern. Performed By: #### 2 [id number], 2932615, [id number] #### [facility] [address] [place] [address] Clarity (U) CLEAR Normal Clear [facility] Comment on above: Order Comment: Urina ry Catheter Insertion triggered Urinalysis With Culture Reflex order by discern. Performed By: #### 2 467015, 6226059, [id number] #### [facility] [address] [place] [address] Color (U) YELLOW Normal Yellow [facility] Comment on above: Order Comment: Urina ry Catheter Insertion triggered Urinalysis With Culture Reflex order by discern. Performed By: #### 2 934196, 3142469, [id number] #### [facility] [address] [place] [address] Crystals LM Ql (Urine sed) Present Normal [facility] Comment on above: Order Comment: Urina ry Catheter Insertion triggered Urinalysis With Culture Reflex order by discern. Performed By: #### 2 257795, 0997859, [id number] #### [facility] [address] [place] [address] Epithelial cells.squamous LM.HPF (Urine sed) [#/Area] 0-2 Normal 0-2 [facility] Comment on above: Order Comment: Urina ry Catheter Insertion triggered Urinalysis With Culture Reflex order by discern. Performed By: #### 2 009993, 2069714, [id number] #### [facility] [address] [place] [address] Glucose Test strip (U) [Mass/Vol] Negative Normal Negative [facility] Comment on above: Order Comment: Urina ry Catheter Insertion triggered Urinalysis With Culture Reflex order by discern. Performed By: #### 2 871503, 1039461, [id number] #### [facility] [address] [place] [address] Hemoglobin Ql (U) TRACE Abnormal Negative [facility] Comment on above: Order Comment: Urina ry Catheter Insertion triggered Urinalysis With Culture Reflex order by discern. Performed By: #### 2 599581, 8260180, [id number] #### [facility] [address] [place] [address] Ketones (U) [Mass/Vol] Negative Normal Negative Fi [facility] Comment on above: Order Comment: Urina ry Catheter Insertion triggered Urinalysis With Culture Reflex order by discern. Performed By: #### 2 159371, 3338413, [id number] #### [facility] [address] [place] [address] [place].plasma/[place].R BC (Bld) [Mass ratio] 0-3 Normal 0-3 [facility] Comment on above: Order Comment: Urina ry Catheter Insertion triggered Urinalysis With Culture Reflex order by discern. Performed By: #### 2 148696, 6853767, [id number] #### [facility] [address] [place] [address] Mucus Ql (Urine sed) TRACE Normal Fish [facility] Comment on above: Order Comment: Urina ry Catheter Insertion triggered Urinalysis With Culture Reflex order by discern. Performed By: #### 2 248680, 6235045, [id number] #### [facility] [address] [place] [address] Nitrite Ql (U) Negative Normal Negative [facility] Comment on above: Order Comment: Urina ry Catheter Insertion triggered Urinalysis With Culture Reflex order by discern. Performed By: #### 2 998228, 0009701, [id number] #### [facility] [address] [place] [address] pH (U) 6.0 [pH] Invalid Interpretation Code 5.0-9.0 [facility] Comment on above: Order Comment: Urina ry Catheter Insertion triggered Urinalysis With Culture Reflex order by discern. Performed By: #### 2 708446, 1751284, [id number] #### [facility] [address] [place] [address] Protein (U) [Mass/Vol] Negative Normal Negative [facility] Comment on above: Order Comment: Urina ry Catheter Insertion triggered Urinalysis With Culture Reflex order by discern. Performed By: #### 2 295085, 8608173, [id number] #### [facility] [address] [place] [address] Specific gravity (U) [Rel density] 1.015 Invalid Interpretation Code 1.005-1.030 [facility] Comment on above: Order Comment: Urina ry Catheter Insertion triggered Urinalysis With Culture Reflex order by discern. Performed By: #### 2 640428, 1890027, [id number] #### [facility] [address] [place] [address] Type of Urine collection method Catheter Normal [facility] Comment on above: Order Comment: Urina ry Catheter Insertion triggered Urinalysis With Culture Reflex order by discern. Performed By: #### 2 319824, 6959665, [id number] #### [facility] [address] [place] [address] Urobilinogen Qn (U) 0.2 {Henny'U}/dL Normal 0.0-1.0 [facility] Comment on above: Order Comment: Urina ry Catheter Insertion triggered Urinalysis With Culture Reflex order by discern. Performed By: #### 2 693511, 3093016, [id number] #### [facility] [address] [place] [address] WBC Auto Ql (U) Negative Normal Negative [facility] Comment on above: Order Comment: Urina ry Catheter Insertion triggered Urinalysis With Culture Reflex order by discern. Performed By: #### 2 105638, 6631993, [id number] #### [facility] [address] [place] [address] WBC LM.HPF (Urine sed) [#/Area] 0-5 Normal 0-5 [facility] Comment on above: Order Comment: Urina ry Catheter Insertion triggered Urinalysis With Culture Reflex order by discern. Performed By: #### 2 160003, 7657275, [id number] #### [facility] [address] [place] [address] Vaccinationson 08-04-2020 Vaccinations [id number] 0 [id number]# 1.00CD:127 Normal [facility] Coding Summary.on 08-03-2020 Coding Summary. CD:[id number]:[id number] G h0bWw+PGhlYWQ+BH3GDIG jY07cqEAnoR6OT5dYOJ3E YVJYQWTSWZ4CFM9zvIP5Y ZmxI9OvniGe HzlqvQJdFO77MDd2WTZ2c FrpHAoraR5xuIUmT7v9Yj JcCZ05sH35RAkkTYOrWdR 3LjZpbjsgbWFy D1lxIkYgwPLvVud+PHRhY mxlIHdpZHRoPScxMDAlJy VeoHjwGQ3vMx4kQUQkRYI vbGxhcHNlOiBj f6mqKAJyWVygDG0oxZwlG 3XdeDW2YUKjm9u9Vn19gN I+PRRiLOC6fTdnVWdof54 4SoKds6amQCM4 oUIyRUkhSHT7J65cv0Q2F PUhOMRzANN0pAP2pQ3hqM abspdmD3TijQReCsE0EVM 1dWTzpZ3pgRab rnmczW9xBsn+A68HRF3SV BSQNP8WTpx6E7PzVkojxX I+UH32ATXqVJ26kCDtsLK zv8tqlMb4BwKe DSUaSTU6jDnyERxhp0UaH OSlI91knYEqg7N7HDKxhY cfmNTuIqGkoMC6fD6wBGh lgvsrm0dnynsq Qqgja2oerm06kV31V00kN OdhRBZcSQP2OMLoZBKwoN psul0alN8kMa4+HAixs1s pj0inhBn1WuQo AMOegoIzvSfdOCJ4v1HaL o35T5PllDsie2EiXaw4cl 42xEOiu3G8cOL6EHbrXGL ihF6zIJixQrW0 JVKaQbOtuJ75sFSwORgtV a9imQoppHisVQ0nPPHzzd xbJBWskL6iFMMafEYdiWj vVR3uJFAqoftr b861AfZtFTA7IAQjnGFhN 1ZfxO9nWcVdACWfOVZjX1 SaeKNyHLyiN491YDbrCgC 5WXBehlHqS2Bk XCNrrRxlHrM8o0R2Om1Es 3AeqbjzAFS8DBftGBC2Pj T8HdRyUmG2T8OeMmz0ZXY afZqaZW2zO8Mg TKGsecadrvuydNW0MZQlM IHfuG99wEYrEYhaRn6hw1 D5v770ZVWyBEZlsL30Nr2 udDogMTBwdCBU zJ2ygvdaq6pioxxaYhOhZ FPgULg5WPa8UCBcuBadHp ZtRJH6UrN5HQS6dZDcyZ0 rjZykekbqgU1d Oyc+B13jjT7mXZB2JLK9u ydmSBAokqWzGW17FS54D1 RyPjwvdGFibGU+PGRpdiB paPrnAT2gNyHi l3dsn5VmRBfbO7SqJXIaR SwdJyw0PPKeINO9wNR8jE 9rZXRjWPilq4S3gNV4H6B dgsPxfm9rk7ks QFIhMUfkQ77peVOpq0M1Q PAhjBS1ZVYntOzrRfHwrZ 93Oyc+GBEikOmui8MsXjn dr6fnu8yjkHb9 QxIoYGCbbdKeiWsfMJD4n 9QpWk91R11aMUhbVPOpIH EvJXCmCPGihPumcv9eaZ3 wIi8+PGNvbCB3 xFA9eW4oEIIgKdT3SIrcA 350CrBwsQRkUmzxe3jgf0 wjoQl7RlHkDIToetYvjUc dPWP5a4MzRt52 I93uYYjhLBNdGQSwRRKqW LZceLsyvc7yzQ9yXe5+PC 7nl3otzz74gR78dJG+PHR wJEZ1zQolCOie BYEpvM9sLNmqRcF8PSCvQ eVtxA23zXWhEGtgDa1ewL okcKtbSV7ePEDvxovwd10 0AaJan5ztRUJe hEQbGKheYMQ2O26cv9U6L TIzXMDkAMV8wRQ7rO8koU lnbjogbGVmdDsgdmVydGl vBWbrABgmD840 IHRvcDsnPlBhdGllbnQgT nYeFYw8C0EnZrq8XLYawG kqEJ4zzFCsUNjuLj6nkPn iyOrjLX3xISGb tugkv742XvFlq0sjZSDbs NGdORjdHAL4L21uo0Q3UG JhBZDpZTK4iEZ8fH7rzMk nbjogbGVmdDsg jmUubOvdVQpoREzgM984S HRvcDsnPkJpcnRoIERhdG Q9RM38FK26eRHib2K4aCL 6F7IrRTScqkmi ejlemSV4HWCqWMZuzB05Q g4naZuwAn4oRSClXMG6XI HryZGgO3DnxS9kHnMoJZA rQUOpM0UkhLOo VMtoH381VCacXtS2CLKso jEmP8CrUJNanRefZoL5a9 T3Gr3DK8K8BN29LH35xUI lt6H8sLB7V3Ye IXYmrvgyafobiWD2VCHdQ NKahO45Oe3sxItaEu4cZU IxDUZ9EJRimXHiG0LmzG2 yOiAjMDAwMDAw L8NgbFDyDHanH697FAwoV cG5TINnmlFfU0KrHSKsaT waJqP3a2F4Zv6JHZg1SK8 0DJ48cLJjt6U0 iHN7A2UcLTBqxsusdbfny FI5UIKdRLMlmF25Yx0aqU ljKt3iUFMgYWA1INBsdHP eD2HdlO5pYiAo EQHhROGhH5YlxMEgCJrlH 194HTjaMaJ3MKBmehIbN5 RaGIPksXbfCtV1f7L1Tw2 CYAGdNM70XST3 zXO4YE86FS98V8AeQykyv GFibGU+PHRhYmxlIHdpZH RoPScxMDAlJyBzdHlsZT0 bQh0pTMHoBATy uAfxbXKkCaLlf9ysDWCiF DpuAI5ppCfvQ5IeoJV7RV Xdz8c5Ei20R33tU2OqgMW +HSJzyJR4uYX1 mL1dKjOyQnE9FHhzR459W fTjtGCfOojzz8gsr3mvaW k0QuC3CEUotmXbpYoyCRN 8i1DhBw94L94c IHdpZHRoPSIxNSUiIHZhb Kuigw4hnX4nQr6+PGNvbC K2zBD1qM9bQjPfXwV1PRo nX249SdVwzFZn Mmuvn1pfm1rusVp4ZkUxE RVkxqBcrGdlRNA9r9AdLx 49H0RhiIdsx1SdYgo3yf3 4uQKjw0W2zYH9 L7BwOXZuynsnoYFhlNruT F6iJOTcaskuPXRmyC7kYI GzK5p4HtAdEkC9PZdlR3T ajxP8RQUtsFKn PUjhRTN6F46lv5T3TKBzD DIdQLB1jAO1iC7bcMtkth ogbGVmdDsgdmVydGljYWw uETaxI983DQOa jHceMQRmtM5sXDUjmFGzu RxfWQ2vTKOybekoVoTTQl cBGg2iMGTYKpCXG3NsXMq vdGQ+PHRkIHN0 uEitLHzbYAOptR1xLPYuC 6w6JdKyQjM9QPqiE8NhIO AugwcnUy60wD6yGtTnNpA 2ECyfE9VorwO1 YGWzfNSgMLlmQDH0P47pj 9F5WBChSQWaNRN9sYB4uW 1hbGlnbjogbGVmdDsgdmV ydGljYWwtYWxp J473CCJcoPinMlP9JzVxK vU3ISU1P2NxMfm9AZFrdL rwVV8ewAFzWXwyWn1amUq elXfkOD0lXRKe oslhMPZpdZ1gBXTkyLZzv CfyIM2iTOJrxrpkg665Un IzLXA4GUWskYMvB9XkmP3 yOiAjMDAwMDAw Q0YmsYSlMLzbI220IWwfW yW8OUAdvkZqI3YmUOMuyG vlGxU5a3Z5Bg5sXYJFIMA yczwvdGQ+PHRk MPD0lMezBApnNVQdyF2xR RVeU5g2RuRqDxD0AAyaI0 XnXSKrolzpLe54yE7gAbY pJyT8CSqfP3Ng bbS8VPBfuJHcAQzzDXD4Z 56hl7I7QWQcZTKzEIS2pR V9sZ8ldAhdpcksyCFiaFi gdmVydGljYWwt LUeiM243YRKpnYwkSkPkt WFsZTwvdGQ+VVWvBYB7aY ejMUqhYKKpxK6uBXTfC5d 2QdLtUxE4WXbr V0DkSOUlbzbaWx24uH1iM uUaSeI3PSjnZ2KxdjH0JG EvsTHeBWbvKCW1K74ta1Y 8MVJwQTMbGCT0 jNZ3kD9sqRahvklowAIgo DsgdmVydGljYWwtYWxpZ2 46GTBasGrzYi7IXZRazGA nZTwvdGQ+PC90 na32C7DxHkisXun1CFNkA GS3vPN1tV8aMCFrZZfez6 Y0sQW2P8CplxKtxz2bb5z mSWXkAHqmF40s iQFmp1P7VKSpiSQ3DIXar KoaOqUdqY49Yke+PGNvbG nxn4KbWbjxi6rbj7uwkSt 9IjMwJSIgdmFs hYimNPR3n1RcXe28K56aY HdpZHRoPSIzMCUiIHZhbG gldg2pdB5ySu6+PGNvbCB 6gWP5qH4yVxLe QnG8HItxH180ZbLruCVcR ukts2xlj6lwdGj2AhItWX VtmmJypTduGQZ6o9MjQm4 4T4NfeXrsc2Wk Tue9jn21jFAse4F2lKL8X 3BhZGRpbmctbGVmdDogMC 7yTGEvzichWSRweP3yNYT oN5i2PbZdGyB7 CIsaC2AjxeK3DFSllSRwQ IMihOCToC0vinycs8kqoy fjRaRgRHVoWDv4JFj2EHQ saWduOiBsZWZ0 MwN3NGF6sSPavM9grKjnx zjrvS4aPkp+TSj5o3auvQ ZqAJ8gzBW6OA88JE84kQP tq0O2cPA2E8Qz QLMtszyaozfhzYS4WGSiY HRukM32Yu7ntDmnRo8zMM MsQKV3SDXhtTLtF2DnlN8 yOiAjMDAwMDAw F8XteTXmQEadM731CDpbP mN6FZKzceDeN4RaFWSznI lfIvW2h3C9Rx3JCZ85OJ6 5XJ54aRSmp4O9 tRA0Y7XnFSWujcgxwqrew YZ3GZDdRFTcgD51Ue0bpH efAf0oIHYtXXU9VAMmwHC yS9UtmR5kHjBn THFuCSBeR0GleDKvKHkoU 771GKnsInW4MSPtciXqT7 XqJBQibFeoGiT7c2X2Wa9 XVh03WU65VF04 iEQoj1R1tLI8R5MoMFJlh eqozfrtlJQ2CXQzODYexL 34La0awVpmFn4rKNTcXGB 6PTKatUIcC2Sx mH4yHtZgTFOvJICiT4Zhr HFeITdzV708XNjjYtU8OR SaafRmJ3IgBXKgfPxlRxK 0g6R5Bu0HESko wdc3D6OpVnxauFO+PC90Y ITrXL13jQVknLIlf4ufbX r4ZuVwZKPrUJC6rQzsIAk ih0KcQROoT46f bGFw (more content not included)... Normal [facility] Ambulatory Clinical Summaryo n 08-02-2020 Ambulatory Clinical Summary {[id number]}CD:[id number] Normal [facility] Insurance Correspondenceon 0 08-02-2020 Insurance Correspondence [email or web address] [id number] Normal [facility] Insurance Correspondence Off iceon 08-02-2020 Insurance Correspondence Office [id number]# 1.00CD:127 Normal [facility] Insurance Correspondence Office [id number]# 1.00CD:127 [facility] Nursing Assessmenton 021 Nursing Assessment [id number]# 1.00CD:127 Normal [facility] Obstetrics Office/Clinic Not jasmine 08-02-2020 Obstetrics Office/Clinic Note Chief Complaint OB 38w 5d, baby moving, occ. CHAMP[place]NE, swelling bilat. feet, woke up with Migrain in middle of night Obstetric History History (1,0,0,2) # 1 Baby 1 Outcome Date: 2008 Outcome: Live Outcome or Result: Vaginal Gender: Female Gest Age: 41 weeks Wt: 3232 g [place] [facility] [place]: -- Child's Name: -- Baby's Father: -- # 2 Baby 1 Outcome Date: 05/26/2013 Outcome: Live Outcome or Result: Vaginal Gender: Male Gest Age: 39 weeks 3 days Wt: 3390 g Hospital: -- [facility] Labor: 5 hr 55 min Child's Name: -- Baby's Father: -- Complications: None Complications: None EGA and CLIFFORD Gestational Age (EGA) and CLIFFORD * Note: EGA calculated as of 08/02/2020 CLIFFORD: 08/11/2020 EGA*: 38 weeks 5 days Type: Authoritative Method Date: 02/16/2020 Method: Ultrasound (02/16/2020) Confirmation: Confirmed Description: -- Comments: -- Entered by: Caroline HILARIO on 04/21/2020 Other CLIFFORD Calculations for this : No additional CLIFFORD calculations have been recorded for this History of Present Illness ob visit Review of Systems Constitutional: No fever, No chills, No sweats, No weakness. Respiratory: No shortness of breath, No cough. Cardiovascular: No chest pain, Noperipheral edema. Physical Exam Vitals & Measurements BP: 112/72 HT: 157.4 cm WT: 92.1 kg WT: 92.1 kg BMI: 37.17 Examinations Glucose Urine Dipstick: Negative Protein Urine Dipstick: Negative Weight Measured: 92.1 kg Systolic Blood Pressure: 112 mmHg Diastolic Blood Pressure: 72 mmHg D-EGA at Documented Date, Time: 38W 5D Fundal Height: 41 cm Labor Signs/Symptoms: Contractions Cervix Dilation: 4.5 cm Cervix Effacement: 70 Station: -3 Medina's Score: 8.5 Baby A - Activity: Present per patient Baby A - FHR: 135 bpm Next Appointment: 6 week(s) Antepartum Comment: Has IOL sched on 08/04 General Exam: Constitutional: alert, no acute distress, well hydrated, well developed, well nourished. Skin: normal color, no rashes, no lesions, no unusual bruising. Head: atraumatic, normocephalic. Eyes: EOM intact, no nystagmus, no icterus. Ears: no external deformities, gross hearing intact. Respiratory: no respiratory distress. Abdomen: gravid, nontender. Extremities: no deformities, no edema. Psych: oriented to all spheres, affect and mood appropriate, normal interaction, good eye contact. Assessment/Plan IOL 08/04 @ 0700 1. Supervision of high risk in third trimester (O09.93: Supervision of high risk , unspecified, third trimester) Ordered: Office Visit Level 4 Est 05263 TH 2. Obesity complicating , third trimester (O99.213: Obesity complicating , third trimester) Ordered: Office Visit Level 4 Est 19180 TH 3. Depression during (O99.340: Other mental disorders complicating , unspecified trimester) Ordered: Office Visit Level 4 Est 16418 TH 4. 38 weeks gestation of (Z3A.38: 38 weeks gestation of ) Ordered: Office Visit Level 4 Est 43002 TH Follow-up With When Contact Information Funmilayo ESCOEBDO MD In [address] [place] [address]- Additional Instructions: Problem List/Past Medical History Ongoing Attention deficit hyperactivity disorder Chronic fatigue syndrome Depression during Insomnia Obesity complicating , third trimester Ovarian cyst Supervision of high risk in third trimester Historical Medications Multivitamins, 1 tab(s), Oral, Daily Allergies No Known Allergies Social History Alcohol - Denies Alcohol Use, 11/21/2009 DENIES, 04/14/2020 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 Living situation: Home/Independent. Alcohol abuse in household: No. Substance abuse in household: No. Family/Friends available for support: Yes., 07/26/2020 Nutrition/Health Regular, 07/26/2020 Substance Abuse - Denies Substance Abuse, 11/21/2009 DENIES, 04/14/2020 Tobacco - Denies Tobacco Use, 11/21/2009 Never (less than 100 in lifetime) Tobacco Use:. Never Smokeless Tobacco Use:., 07/28/2020 Family History Diabetes mellitus type 2: Mother and Father. Hypertension: Mother and Father. Immunizations Vaccine Date Status diphtheria/pertussis, acel/tetanus adult 06/23/2020 Given Lab Results Ambulatory Point of Care Results Glucose Urine Dipstick: Negative (08/02/20 16:30:00) Protein Urine Dipstick: Negative (08/02/20 16:30:00) Normal [facility] Comment on above: Result Comment: Elec tronically Signed By: LAURA MACEDO, Funmilayo Ryan\.br\Date and Time Signed: 08/02/20 17:10 EDT Patient Educationon 08-03-19 21 Patient Education Obstetrics and Gynecology Score An score is a number that is based on an assessment of a 's condition right after . A baby's score helps the baby's health care provider to: ? Decide whether the baby needs extra medical care. ? Determine the baby's response to care that is given. Babies are usually given two scores. The first score is calculated at 1 minute after , and the second score is calculated at 5 minutes after . For babies who score less than 7, scores are calculated again at 5-minute intervals up to 20 minutes. What is the scoring system? An scoring system is based on an assessment of the following characteristics. The baby's score is the total number of points that he or she is given after the assessment. Appearance Appearance refers to the color of your baby's skin. Your baby will be given: ? 2 points if the skin is a normal color or pink. ? 1 point if the hands or feet are a different color, usually bluish (acrocyanosis). ? 0 points if the skin is pale or bluish fisher (cyanosis). Pulse Pulse refers to your baby's heartbeat. Your baby will be given: ? 2 points if the heart beats 100 or more times per minute. ? 1 point if the heart beats less than 100 times per minute. ? 0 points if there is no heartbeat. Grimace Grimace, or reflex irritability, refers to how your baby responds to stimulation. Your baby will be given: ? 2 points if he or she coughs, sneezes, cries, or pulls away when stimulated. ? 1 point if he or she makes a face when stimulated. ? 0 points if he or she does not respond when stimulated. Activity Activity, or muscle tone, refers to how active your baby is. Your baby will be given: ? 2 points if he or she is actively moving the arms and legs. ? 1 point if the arms are curled up and the legs are bent but the baby is not actively moving them. ? 0 points if he or she is limp or floppy. Respiration Respiration, or respiratory effort, refers to a baby's breathing. Your baby will be given: ? 2 points if he or she is crying and breathing well. ? 1 point if breathing is slow, weak, or uneven (irregular). ? 0 points if he or she is not breathing. What does my baby's score mean? ? An score of 7 or higher is considered normal. It also usually means that the baby only needs routine care. ? An score of 6 or lower means that the baby might need some type of medical assistance. It is more common for some babies, especially babies who are born too early (prematurely) or through a surgery called delivery, to have a lower score. A score that is low at 1 minute often improves when the assessment is done again at 5 minutes. The score helps your baby's health care provider make decisions about what type of care your baby needs after . The score does not predict how healthy your baby will be in the future. Summary ? An score is a number that is based on an assessment of a 's condition right after . ? An score helps the baby's health care provider decide whether the baby needs extra medical care and how the baby is responding to care that is given. ? An score of 7 or higher is considered normal. If a baby's score is 6 or lower, the baby may need some type of medical assistance. ? The score does not predict how healthy your baby will be in the future. This information is not intended to replace advice given to you by your health care provider. Make sure you discuss any questions you have with your health care provider. Document Released: 05/13/2008 Document Revised: 07/07/2019 Document Reviewed: 07/07/2019 [employer]ah Patient Education ? 2019 [employer] Normal [facility] Discharge Instructionson Discharge Instructions [id number]#1 .00CD:127 Normal [facility] Inpatient Clinical Summaryon 07-31-2020 Inpatient Clinical Summary [address] [id number] Clinical Summary Person Information Name: MYA MYLES [facility] Age: 30 Years : 1990 Sex: Female PCP: Chao Blackwell III, DO Marital Status: Single Race: White Ethnicity: Non- or Language: Algerian Visit Id: Visit Reason: Speciality: Acuity: Obs Enc Type: OB Triage Med Service: Obstetrics Arrival: 07/30/2020 21:16:34 Discharge: 07/30/2020 22:58:00 Dispo Type: Home ([facility] [place]) Address: [address] [place] [address] [address] [place] [id number] Provider Notes: Diagnosis: Problems Active Insomnia Chronic fatigue syndrome Attention deficit hyperactivity disorder Obesity complicating , third trimester Supervision of high risk in third trimester Depression during (10/16/2019) Ovarian cyst Smoking Status: Never Smoker Functional Status: Sensory Deficits: History of Falls: Mobility Assistance Prior to Admission: ADLs: Current Level of Assistance for Self-Care/Mobility: Cognitive Status: Allergies No Known Allergies Laboratory or Other Results This Visit (last charted value for your 07/30/2020 visit) No Laboratory or Other Results This Visit Measurements: Height: 157.4 cm Weight: 92.3 kg Blood Pressure: 124 mmHg / 60 mmHg BMI: 37.26 kg/m2 Procedures No Procedures Documented Immunizations No Immunizations Documented This Visit Final Med List: multivitamin, ( Multivitamins) 1 Tablets By Mouth every day. Care Team Members: Attending Physician: Funmilayo ESCOBEDO MD Consulting Physician: Referring Physician: Follow up: With: Address: When: Funmilayo ESCOBEDO [address] [place] [id number] Business (1) In 3 days 08/02/2020 Comments: Keep scheduled appointment with Dr. Escobedo on Saturday. Educated patient on when to return to L&D for contractions closer, longer, stronger. Educated patient on mild, moderate and strong contractions. Educated patient to return once contractions are about every 5 minutes for an hour, or begin to become closer to every 5 minutes before that hour is up. Call for any problems. Call for severe abdominal pain Return for contractions closer, longer, and harder Return for decreased movement Return if ruptured membranes or vaginal bleeding Type Location Start [place] [facility] 08/02/2020 4:30 PM 08/02/2020 4:45 PM Confirmed [facility] 09/15/2020 9:00 AM 09/15/2020 9:15 AM Confirmed Patient Education Information: Normal [facility] Inpatient Patient Summaryon 07-31-2020 Inpatient Patient Summary [address] [address] Patient Discharge Instructions PERSON INFORMATION Name: MYA MYLES Date of : 1990 Current Date: 07/30/2020 23:21:29 PHYSICIANS Admitting Physician: Funmilayo ESCOBEDO MD Primary Care Physician: Chao Blackwell III, DO PCP Comment: Discharge Diagnosis: Condition at Discharge: Stable MYA MYLES has been given the following list of follow-up instructions, prescriptions, and patient education materials: PATIENT FOLLOW-UP INFORMATION Diet: Activity: Wound Care Instructions: Remove Your Dressing IN: Days Call Your Doctor For: IF UNABLE TO CONTACT YOUR PHYSICIAN AND YOU FEEL IT IS AN EMERGENCY, GO TO THE NEAREST EMERGENCY ROOM OR CALL 911 Home Treatment: Devices/Equipment: Special Services: Additional Instructions: Physician to provide the following pending test results: None Follow up: With: Address: When: Funmilayo ESCOBEDO [address] [place] [id number] [place] (1) In 3 days 08/02/2020 Comments: Keep scheduled appointment with Dr. Escobedo on Saturday. Educated patient on when to return to L&D for contractions closer, longer, stronger. Educated patient on mild, moderate and strong contractions. Educated patient to return once contractions are about every 5 minutes for an hour, or begin to become closer to every 5 minutes before that hour is up. Call for any problems. Call for severe abdominal pain Return for contractions closer, longer, and harder Return for decreased movement Return if ruptured membranes or vaginal bleeding In the event that this physician does not participate in your insurance network, please consult with your insurance company to find a nearby participating provider. Type Location [place] [facility] 08/02/2020 4:30 PM 08/02/2020 4:45 PM Confirmed [facility] 09/15/2020 9:00 AM 09/15/2020 9:15 AM Confirmed Comment: JUSTINO Burton VANESSA L, have received the attached patient education materials/instruction s and have verbalized understanding. Patient Signature Date Clinican/Nurse Signature Date MEDICATION LIST Medications to Continue with No Changes Other Medications multivitamin, ( Multivitamins) 1 Tablets By Mouth every day. Last Dose: ____Next Dose: ____ Pharmacy Information: [facility] [place] PATIENT EDUCATION INFORMATION Instructions: Medication Leaflets: You may receive a survey from [employer] asking you to rate your care experience. Your feedback is important and will help us understand what we do well and how we can improve the quality of care we provide to you, your loved ones and our community. It?s an honor to serve you. Thank you for choosing [facility] Consent for Treatmenton 07-19 Consent for Treatment [id number]# 1.00CD:127 [facility] Consent for Treatment [id number]# 1.00CD:127 [facility] Insurance Correspondenceon 0 07-29-2020 Insurance Correspondence [id number] #1.00CD:127 [facility] Insurance Correspondence Off iceon 07-29-2020 Insurance Correspondence Office [id number]# 1.00CD:127 [facility] Nursing Assessmenton 021 Nursing Assessment [id number]# 1.00CD:127 [facility] Ambulatory Clinical Summaryo n 07-28-2020 Ambulatory Clinical Summary {[id number] [facility] Obstetrics Office/Clinic Not jasmine 07-28-2020 Obstetrics Office/Clinic Note Chief Complaint OB visit 38 weeks . Obstetric History History (1,0,0,2) # 1 Baby 1 Outcome Date: 2008 Outcome: Live Outcome or Result: Vaginal Gender: Female Gest Age: 41 weeks Wt: 3232 g [place] [facility] [place] Labor: -- Child's Name: -- Baby's Father: -- # 2 Baby 1 Outcome Date: 05/26/2013 Outcome: Live Outcome or Result: Vaginal Gender: Male Gest Age: 39 weeks 3 days Wt: 3390 g Hospital: -- [facility] Labor: 5 hr 55 min Child's Name: -- Baby's Father: -- Complications: None Complications: None EGA and CLIFFORD Gestational Age (EGA) and CLIFFORD * Note: EGA calculated as of 07/28/2020 CLIFFORD: 08/11/2020 EGA*: 38 weeks Type: Authoritative Method Date: 02/16/2020 Method: Ultrasound (02/16/2020) Confirmation: Confirmed Description: -- Comments: -- Entered by: Caroline HILARIO on 04/21/2020 Other CLIFFORD Calculations for this : No additional CLIFFORD calculations have been recorded for this History of Present Illness 30 y/o here for visit. Active movement. She was on her feet all day today. She has had only about 3 contractions today - they are worse at night. Review of Systems Constitutional: No fever, No chills, Yes headache. Skin: No rash, No lesions. Respiratory: No shortness of breath. Cardiovascular: No peripheral edema. Gastrointestinal: No nausea, No vomiting, Noheartburn, No diarrhea, No constipation. Genitourinary: No dysuria. Gynecology: No abnormal vaginal discharge, No vaginal itching/burning, No bleeding, No leaking of fluid. Physical Exam Vitals & Measurements BP: 122/76 HT: 157.4 cm HT: 157.4 cm WT: 92.7 kg WT: 92.7 kg BMI: 37.42 Examinations Glucose Urine Dipstick: Negative Protein Urine Dipstick: Negative Weight Measured: 92.7 kg Systolic Blood Pressure: 122 mmHg Diastolic Blood Pressure: 76 mmHg D-EGA at Documented Date, Time: 38 weeks Fundal Height: 40 cm Labor Signs/Symptoms: Pelvic pressure, Contractions Cervix Dilation: 5 cm Cervix Effacement: 80 Station: -2 Medina's Score: 8 Baby A - Activity: Present per patient Baby A - FHR: 140 bpm Next Appointment: 1 week(s) Antepartum Comment: Labor precautions. IOL 6-17. General Exam: Constitutional: alert, no acute distress, well hydrated, well developed, well nourished. Skin: normal color, no rashes, no lesions, no unusual bruising. Head: atraumatic, normocephalic. Eyes: EOM intact, no nystagmus, no icterus. Ears: no external deformities, gross hearing intact. Respiratory: no respiratory distress. Abdomen: gravid, nontender. Extremities: no deformities, no edema. Psych: oriented to all spheres, affect and mood appropriate, normal interaction, good eye contact. Assessment/Plan 1. Obesity complicating , third trimester (O99.213: Obesity complicating , third trimester) Ordered: Office Visit Level 3 Est 68640 TH 2. Supervision of high risk in third trimester (O09.93: Supervision of high risk , unspecified, third trimester) Follow up in 1 wk. Ordered: Office Visit Level 3 Est 57217 TH 3. 38 weeks gestation of (Z3A.38: 38 weeks gestation of ) Ordered: Office Visit Level 3 Est 64062 TH Follow-up With When Contact Information [facility] In [address] [place] [address]- Additional Instructions: Problem List/Past Medical History Ongoing Attention deficit hyperactivity disorder Chronic fatigue syndrome Depression during Insomnia Obesity complicating , third trimester Ovarian cyst Supervision of high risk in third trimester Historical Medications Multivitamins, 1 tab(s), Oral, Daily Allergies No Known Allergies Social History Alcohol - Denies Alcohol Use, 11/21/2009 DENIES, 04/14/2020 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 Living situation: Home/Independent. Alcohol abuse in household: No. Substance abuse in household: No. Family/Friends available for support: Yes., 07/26/2020 Nutrition/Health Regular, 07/26/2020 Substance Abuse - Denies Substance Abuse, 11/21/2009 DENIES, 04/14/2020 Tobacco - Denies Tobacco Use, 11/21/2009 Never (less than 100 in lifetime) Tobacco Use:. Never Smokeless Tobacco Use:., 07/28/2020 Family History Diabetes mellitus type 2: Mother and Father. Hypertension: Mother and Father. Immunizations Vaccine Date Status diphtheria/pertussis, acel/tetanus adult 06/23/2020 Given Lab Results Ambulatory Point of Care Results Glucose Urine Dipstick: Negative (07/28/20 16:33:00) Protein Urine Dipstick: Negative (07/28/20 16:33:00) Normal [facility] Comment on above: Result Comment: Elec tronically Signed By: Caroline HILARIO\.rosey\Date and Time Signed: 07/28/20 16:52 EDT Patient Educationon 07-29-19 Patient Education Obstetrics and Gynecology Before Baby Comes Home Once your baby is home with you, things may become a bit hectic as you map out a schedule around your 's patterns. Preparing the things you need at home before that time comes is important. Before your baby arrives, make sure you: ? Have all the supplies that you will need to care for your baby. ? Know where to go if there is an emergency. ? Discuss the baby's arrival with other family members. What supplies will I need? Having the following supplies ready before your baby arrives will help ensure that you are prepared: Large items ? Crib or bassinet and mattress. Make sure to follow safe sleep recommendations to reduce the risk of sudden syndrome. ? Rear-facing car seat. Have a trained professional check to make sure that it is installed in your car correctly. Many hospitals and fire departments perform this service free of charge. ? Stroller. Always make sure any products?including cribs, mattresses, bassinets, or portable cribs and play areas?are safe. Check for recalls on your specific brand and model of crib. ? Nursing pillow. ? Milk storage containers or bags. ? Nipple cream. ? Nursing bra. ? Breast pads. ? Breast pump. ? Breast dover. Feeding ? Formula. ? Purified bottled water. ? 6?8 bottles (4?5 oz bottles and 8?9 oz bottles). ? 6?8 bottle nipples. ? Bibs and burp cloths. ? Bottle brush. ? Bottle sterilizer (or a pot with a lid). Bathing ? bath basin. ? Mild baby soap and baby shampoo. ? Soft cloth towel and washcloth. ? Hooded towel. Diapering ? Diapers. You may need to use as many as 10?12 diapers each day. ? Baby wipes. ? Diaper cream. ? Petroleum jelly. ? 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 ? Hand capacity manager. Health and safety ? Rectal thermometer. ? medicines. ? Bulb syringe. ? Baby nail clippers. ? Baby monitor. ? 2?3 pacifiers, if desired. Sleeping ? Sleep sack or swaddling blanket. ? Firm mattress pad and fitted sheets for the crib or bassinet. Other supplies ? Diaper bag. ? Clothing, including one-piece outfits and pajamas. ? Receiving blankets. Follow these instructions at home: Preparing for an emergency Prepare for an emergency by taking these steps: ? Know when to seek care or call your health care provider. ? Know how to get to the nearest hospital. ? List the phone numbers of your baby's health care providers near your home phone and in your cell phone. ? Take an infant first aid and CPR class. ? Place the phone number for the poison control center on your refrigerator. ? If there will be caregivers in the home, make sure your phone number, emergency contacts, and address are placed on the refrigerator in case they need to be given to emergency services. Preparing your family ? Create a plan for visitors. Keep your baby away from people who have a cough, fever, or other symptoms of illness. ? Prepare freezer meals ahead of time, and ask friends and family to help with meal preparation, errands, and everyday tasks. ? If you have other children: ? Talk with them about the baby coming home. Ask them how they feel about it. ? Read a book together about being a new big brother or sister. ? Find ways to let them help you prepare for the new baby. ? Have someone ready to care for them while you are in the hospital. Where to find more information ? Consumer Product Safety Commission: www.cpsc.gov ? [employer] [employer]: www.healthychildren.o rg ? Safe Kids [employer]: www.safekids.org Summary ? Planning is important before bringing your baby home from the hospital. You will need to have certain supplies ready before your baby arrives. ? You will need to have a rear-facing infant car seat ready prior to bringing your baby home. Have a trained professional check to make sure that it is installed in your car correctly. ? Always make sure any products?including cribs, mattresses, bassinets, or portable cribs and play areas?are safe. Check for recalls on your specific brand and model of crib. ? Know when to seek care or call your health care provider, and know how to get to the nearest hospital. This information is not intended to replace advice given to you by your health care provider. Make sure you discuss any questions you have with your health care provider. Document Released: 01/17/2009 Document Revised: 01/17/2018 Document Reviewed: 12/25/2017 [employer] Patient Education ? 2019 [employer]. [facility] Coding Summary.on 07-27-2020 Coding Summary. [id number] G h0bWw+PGhlYWQ+IF8VXIX tE44qeZNnnU2QQ1rMJY1N CIDSTSQLUQ8RPA8iiEP5K ZkoI4GwyyYm LghueWLwBZ50IWk3DLM7f MamVBbojB9yqTBxN4i1Ql WuKB84zW70OYbrOFRsUaX 3LjZpbjsgbWFy M5npGtUegTXeAun+PHRhY mxlIHdpZHRoPScxMDAlJy QdoIidMT6jAy4aABXkARF vbGxhcHNlOiBj g9tkICYzVFnwRN2hbGwsA 4PwcGV3MQGfe1b4Br98bV I+YHKbWEX2eKkmEAkio25 7QmJkk6pnVLM1 uQMuAVfjQDS8V51lb2F4B CCiHIRdHYM6aVE9uG9bsF nuyewcH2HsnEEhNoB8LYD 0kKNtnU0xmUsf dlpqqR4iPhn+R78IED0DW KWNXJ4MBxv9T8AvDiwbtQ I+XU40DKRzVO19fNOksAK dt8yttNf5ScWv KQCtCLP0kWgeVFcen2TiA YGqY46qxEExa5A2RBRsoP nfyXKwIhThwRL8pV9nBCn nwzenl9wumnug Gyyqi0oomp35rC58N29wC FdyKEMiZAW0GCUkCIBeyY kyro1zsL8vMw1+BZrsv8a aq4rucQf3UmEy PMAxttZaxLksITI9z7VtB i71D7AxhEebm0FjElj7wn 45aTLzn8S7aSD3HDvaFDP zxA4oMYrvZqQ2 HXLpAvRkxM32lQZdQXwqW g6orPzidMipHG5bBVJwuc alJWVquA0iBHQlaEOseAz zIP6rXXJhbukc m464RqJsEQX5HJYidXOxO 4IsyS7nBmEzPEXlYALnD7 MneKZgAIeeZ029KSqmPlO 0OBPuuiYuF9Us KDKdtFowZsY3w3P7Kt1Xs 9CkwhltQUK7MXnoTRT3Ep G3UwFpMmQ8A7KgFhy7CXP naYmoVM1iO2Mj UGNytjuxfgzscJF6BRPhG EFnmC43lBFuJKrmIy8lz9 L1z783WETuIANadF76Uj7 udDogMTBwdCBU dT1khbwqv6rgyqqmPcTzF KVtGMu7WZx1MRDxmUcjVt KqYMB3SuF0ITX3xFQebU5 piNknbayemV7i Oyc+X46plB9tMNL3HHA2x semQNWehpTiVU82EX98S4 RyPjwvdGFibGU+PGRpdiB poVtwIQ5fKnZx i5ekv2YdMUhnB3UvLJOhT UjdFuw3ELPlWVJ1mMV7xS 9dZXYcLPjvw7K9xUX0P6F svrHcdd3dn1zk BUVfMRquL35wgSIou3M9J BHcoAA6GCCeaRsfEfGntJ 93Oyc+SASviRsgz8WiEeu wv5ecr9gyoPb8 HsHmRFBusoBuaGsvXXW4i 8FcAo11Q67gAQiyVQYwIA PrTHGhQOBxlVwmlv4djJ3 wIi8+PGNvbCB3 gSL3gP4bNESoNkV6YDvcF 212GeTucJFzOxjns2son4 fqnLu6FsHsMWUpzjOpwVw sJGV6f2TfMg05 A60tQPhjHEDjQUNkNDFlL SIqnQrugk5yfP8mLc1+PC 0md7zodr89sU62vTT+PHR qBRM3wCelFSfz ULRdsG3pGKrnOuZ2DCPtG pYznK12cHJuJSxeAz5xrC pmjUgjMY4tVIZqfeycg28 3KqAhq9evGESe tRMzOAzvZXK6Y18oq7K6D JYjDMJoYGA2wAF6yX7njT lnbjogbGVmdDsgdmVydGl yJVlrNFwcK385 IHRvcDsnPlBhdGllbnQgT gYpLKi3D2GzFix1DYYcmM uhKI4dfPDeXYxcFl8beNo nuCoiTX1vVIHd yawbu572CzXfn4acVFTzf AQcYUzzDUT8W07kb9K8BA HwNBGgQGL7zYH4pC1rcZt nbjogbGVmdDsg ngSbgXhnZXuoPDebA368J HRvcDsnPkJpcnRoIERhdG Y5RN92KJ44uGDxi4R1dFQ 0Q7OhVXAzpjyw vvpuzCS0TZKkXYDijY76N t4xpGrnUd4hFPKaFCW9CL XrvHGmT9QkkK3lWpMbGXB xTOWhC2JyhMLo EZevD078SUydIbK9SEEil xQdG3GkHFFmzFbjMvE8g0 C2Um5FD8I4AZ43NH93qDB ep9E4xXU6P2Zo OEQgegecmsoqaGJ0XPVlC XPqcB26Ch1bjMrvLy2wTO FyVYU9POShsRIjB3FsnS0 yOiAjMDAwMDAw N4ViuOKiDSfsS012FQchT dY5SGZeocAbF4MkXOLwbL mxEuL6u2D1Xk6ZGLe4JB8 6KV54mCPxk3V0 fJQ9L8UnJSEmrfticermv ER9TRFhNQDhfS45Lu6ziG lqAn2jNWRzHZR4LFKxmJT tU2YmsV3qSxEh HWSjCUFiZ2VwqACwGNxkK 251TTibCqE2DOHjlhOtV9 ZyPCUncOltKpK4x4C8Pv4 IMVJdAQ18CRS1 zPK3MB40UK67O5ZpNqbpr GFibGU+PHRhYmxlIHdpZH RoPScxMDAlJyBzdHlsZT0 iDz7dOBAuJUNy xHuzlBBlCvLvg2wwNLOfU XznKF8hbVqfI2JutEF5TL Uhn6d4Uy80C98yL5FbaXZ +BZGlkPS8nLR2 yK8xItGuAhE1CXviJ394C wVsvHYyMifzx0oco7mngI t3NnS8XVDjxiLgpQrpFZN 2d5TcUm77O46o IHdpZHRoPSIxNSUiIHZhb Wsfqq7gvG8jAy4+PGNvbC K2sNW5vI3aEjAuCxG5BXs wR776BnCsuWMl Sufgl5mqs9zajOt8AjIlE MJpmsKwzBbmMUZ4h0UjMv 76Z8WocJvwt0HrWtj9xd1 5cEOda6O3tSU6 I8FxBMSpolxvhJEoaNpgE F5iCSUhcvwpYOLycJ7hSP IaB5c8JgCeDiA7QByxX9O yvtU3AEMtwCBn SFnpIHC4E34eb6M2FABvP LJbCHX3fQP5nW1xkZpsha ogbGVmdDsgdmVydGljYWw nIRieO271MXJs iJjmOTVwdT5xKRKnvJPha GqqOD2jRDXnxcitMmOPXk kWXd7lGFOYOoKUE3LrNDv vdGQ+PHRkIHN0 dXyxUVidVJVxqD1cXWSuH 6m1XtFjIsS3TZbfY0GeHI FqylkkZr72oF1cNlHpXzA 3YWjjC5AymsY6 NVZkjKZaALnnMDW7C68hi 2U7OEXoMHTwNSU6jDY1hO 1hbGlnbjogbGVmdDsgdmV ydGljYWwtYWxp G339QXFyyHldAdR7TrLvB tW3JPC9Q7TzVff5LIDlyR wsKR4dwBMoTBbyOe1kzFn fxLvlBY6kPBJm igimSSIlaJ8qDJVteCWut OdoOG4wNPTdjrops860Mg PbXRT2ANHjqKPjV5JzlM0 yOiAjMDAwMDAw W3UpuDChFHfsT770CRdnD nQ9QWVsjfKcQ3IuBSOdcA fgOxG1i0R6Bc0eTPPJEDV yczwvdGQ+PHRk SCX8zThmWCiiBROhrM7xH VOsY5m8ImVuLsI2SLnoH6 FoDSUpsmpbDr09oR3zPwU pNoS1UEsaV2Tj txR6SUFwaQSwUOmkWAM4J 66wq8Q5SLBaXFUqAVD0gZ Q7tH3qnOrqewyumFBcnQh gdmVydGljYWwt LFiaS823CPWtoMqyQcIuo WFsZTwvdGQ+HKQmZDO7gP mlVZskORAgvQ7pVCGqM3u 6NeEoSvX0PFze T2WoKKNllrlyPs37bT8gV aSkKlX9AOheF0YgvsG5WP RrrEFbSRhcDIJ8M11ww6N 2OSTiHCFqTMM5 tER8oI2asWoqyzgpeEUry DsgdmVydGljYWwtYWxpZ2 88BUOujIzaQs3TBFKzlHD nZTwvdGQ+PC90 et42I1WaRuybXxq8KZLvF RL2oIS0bK2dPDYyQRake5 M5lKP5W6RdgzXdvv8dk6k mJZJsAQnnD05d wJXub2E9ZRXghCJ6MIWel WpvViSovQ77Bsi+PGNvbG arz3LqCykli7gps3mehIm 9IjMwJSIgdmFs gBfdXLM9o1ZfAv36W32zN HdpZHRoPSIzMCUiIHZhbG sqwq9jfI9kTx2+PGNvbCB 9wEJ3qI9lYvCc VjQ5SDzhE482KgFipLZzL dutc6fls6dhqLu2VyUcJT SpxzKnwYtxMIR9n6FhCr2 1S2BpxExqx5Kc Ldj0eg67nBYnv9S6oVE9V 3BhZGRpbmctbGVmdDogMC 7bHBHsvchmXZIymN1uYTO eU2g4NeXoRrE3 GYvdP2RsckL6PPFauAUsB YWybICLhJ6qzpafz0qlfs grRpYlYBDpOJt3AWg7SUN saWduOiBsZWZ0 CdT3IEX4qMUaqT8wfVjsl euczN1nEoa+ZGz1t3rjmL OeTH5roES8HC98BX39pCJ to1B0cJA2Q6Yj HNMcwirokhshdHA8GVPqD OFhvM87Cw7waAzsPw7pYZ VpSVM1MAJwlTOaA5EmgM3 yOiAjMDAwMDAw C4NyuZUrMJswY728BGflQ cV9LRJmmrKjS4IsOHAypA yyZyS0r4I1Qx0XZS01JW2 1DM54nHHdf8Z8 rIX6S4AjSUYebrpvfktyc JL0GYFvEKUjyV31Ok0tiD kaNr5uQQUsHFB3YMOkaTC mL7IoaE2kOwEr JBMmJEHmH1EtrYOfPBnkE 988TEegBdR1SMAktiZzO7 RtPJEhuXaeOoL8r2K6Ab1 FAs44EY06CH59 vZAqb9F1vXE8C2PzZSRft kmqvzjhwOS9WZUqXMIbuR 87Qx2rtGsmBu7nBCHsCNM 0SFVinWKhT5Iu pL7kUzYcLPTqGMZaU8Tcm GVkOUcvF741VQstXxT3SO EnzaHkJ6HoBEDjwLccSvW 2r7Z4Ax6JIUex muu7P6AoWnifxIJ+PC90Y RPpFI40zONtgELam0yuyS h9OmQoURBwOVA2mRthYDi gt0FyXPVwT60i bGFw (more content not included)... Normal [facility] Consent for Treatmenton Consent for Treatment [id number]#1 .00CD:127 Normal [facility] Discharge Instructionson Discharge Instructions [id number] #1.00CD:127 [facility] Comment on above: Other Comment: incco rrect title Discharge Instructions [id number] #1.00CD:127 [facility] Inpatient Clinical Summaryon 07-26-2020 Inpatient Clinical Summary [place] [address] Clinical Summary Person Information Name: MYA MYLES [place] Age: 30 Years : 1990 Sex: Female PCP: Chao Blackwell III, DO Marital Status: Single Race: White Ethnicity: Non- or Language: Algerian Visit Id: Visit Reason: CONTRACTIONS Speciality: Acuity: Enc Type: OB Triage Med Service: Obstetrics Arrival: 07/26/2020 14:59:40 Discharge: 07/26/2020 16:40:00 Dispo Type: Home (Routine DC) Address: [address] [place] [address] [address] [place] [id number] Provider Notes: Diagnosis: Problems Active Insomnia Chronic fatigue syndrome Attention deficit hyperactivity disorder Obesity complicating , third trimester Supervision of high risk in third trimester Depression during (10/16/2019) Ovarian cyst Smoking Status: Never Smoker Functional Status: Sensory Deficits: History of Falls: Mobility Assistance Prior to Admission: ADLs: Current Level of Assistance for Self-Care/Mobility: Cognitive Status: Allergies No Known Allergies Laboratory or Other Results This Visit (last charted value for your 07/26/2020 visit) Urinalysis 07/26/2020 3:15 PM UA Bacteria: Trace /HPF UA Bili: Negative UA Color: Yellow UA Glucose: Negative UA Ketones: Trace UA Leuk Est: Trace UA Nitrite: Negative UA Protein: Negative UA RBC: 0-3 /HPF UA Squam Epithelial: 5-8 /HPF UA Urobilinogen: 0.2 EU/dL -- Normal range between ( 0.0 and 1.0 ) UA WBC: 0-5 /HPF UA Yeast: Trace UA Spec Desc: Clean Catch UA Blood: Trace UA Clarity: Clear UA pH: 6.0 -- Normal range between ( 5.0 and 9.0 ) UA Spec Grav: 1.020 -- Normal range between ( 1.005 and 1.030 ) Measurements: Height: 157.4 cm Weight: 89 kg Blood Pressure: 112 mmHg / 67 mmHg BMI: 35.92 kg/m2 Procedures No Procedures Documented Immunizations No Immunizations Documented This Visit Final Med List: famotidine (Pepcid 20 mg Tab) 1 Tablets By Mouth 2 times a day. Refills: 2. metronidazole (Flagyl 500 mg Tab) 1 Tablets 2 times a day. multivitamin, ( Multivitamins) 1 Tablets By Mouth every day. Care Team Members: Attending Physician: Funmilayo ESCOBEDO MD Consulting Physician: Referring Physician: Follow up: With: Address: When: Funmilay[place] [address] [facility] (1) Within 1 week Comments: Call for any problems. Call for fever > 100.5 F Return for contractions closer, longer, and harder Return for decreased movement Return if ruptured membranes or vaginal bleeding Type Location Start Finish State [facility] 07/27/2020 2:45 PM 07/27/2020 3:00 PM Confirmed [facility] 08/02/2020 4:30 PM 08/02/2020 4:45 PM Confirmed [facility] 09/15/2020 9:00 AM 09/15/2020 9:15 AM Confirmed Patient Education Information: Normal [facility] Inpatient Patient Summaryon 07-26-2020 Inpatient Patient Summary [address] [address] Patient Discharge Instructions PERSON INFORMATION Name: MYA MYLES Date of : 1990 Current Date: 07/26/2020 19:27:26 PHYSICIANS Admitting Physician: Funmilayo ESCOBEDO MD Primary Care Physician: Chao Blackwell III, DO PCP Comment: Discharge Diagnosis: Condition at Discharge: Stable MYA MYLES has been given the following list of follow-up instructions, prescriptions, and patient education materials: PATIENT FOLLOW-UP INFORMATION Diet: Activity: Wound Care Instructions: Remove Your Dressing IN: Days Call Your Doctor For: IF UNABLE TO CONTACT YOUR PHYSICIAN AND YOU FEEL IT IS AN EMERGENCY, GO TO THE NEAREST EMERGENCY ROOM OR CALL 911 Home Treatment: Devices/Equipment: Special Services: Additional Instructions: Physician to provide the following pending test results: Urine culture Follow up: With: Address: When: [address]milay[address] [place], [place] [id number] [facility] (1) Within 1 week Comments: Call for any problems. Call for fever > 100.5 F Return for contractions closer, longer, and harder Return for decreased movement Return if ruptured membranes or vaginal bleeding In the event that this physician does not participate in your insurance network, please consult with your insurance company to find a nearby participating provider. Type Location Start Finish State [facility] 07/27/2020 2:45 PM 07/27/2020 3:00 PM Confirmed [facility] 08/02/2020 4:30 PM 08/02/2020 4:45 PM Confirmed [facility] 09/15/2020 9:00 AM 09/15/2020 9:15 AM Confirmed Comment: JUSTINO Burton VANESSA L, have received the attached patient education materials/instruction s and have verbalized understanding. Patient Signature Date Clinican/Nurse Signature Date MEDICATION LIST Medications to Continue with No Changes Other Medications famotidine (Pepcid 20 mg Tab) 1 Tablets By Mouth 2 times a day. Refills: 2. Last Dose: ____Next Dose: ____ metronidazole (Flagyl 500 mg Tab) 1 Tablets 2 times a day. Last Dose: ____Next Dose: ____ multivitamin, ( Multivitamins) 1 Tablets By Mouth every day. Last Dose: ____Next Dose: ____ Pharmacy Information: [facility] PATIENT EDUCATION INFORMATION Instructions: Medication Leaflets: You may receive a survey from [facility] asking you to rate your care experience. Your feedback is important and will help us understand what we do well and how we can improve the quality of care we provide to you, your loved ones and our community. It?s an honor to serve you. Thank you for choosing [facility] Normal [facility] UA With Cult Reflexon 2020 Bacteria LM Ql (Urine sed) TRACE Normal Trace [facility] Comment on above: Performed By: #### 2 [id number], [id number], [id number] #### [facility] [address] [place] [address] Bilirubin Ql (U) Negative Normal Negative [facility] Comment on above: Performed By: #### 2 [id number], [id number], [id number] #### [facility] [address] [place] [address] Clarity (U) CLEAR Normal Clear [facility] Comment on above: Performed By: #### 2 823395, 0808093, [id number] #### [facility] [address] [place] [address] Color (U) YELLOW Normal Yellow [facility] Comment on above: Performed By: #### 2 602047, 8245577, [id number] #### [facility] [address] [place] [address] Epithelial cells.squamous LM.HPF (Urine sed) [#/Area] 5-8 Normal 0-2 [facility] Comment on above: Performed By: #### 2 298773, [id number], [id number] #### [facility] [address] [place] [address] Glucose Test strip (U) [Mass/Vol] Negative Normal Negative [facility] Comment on above: Performed By: #### 2 706831, 0809933, [id number] #### [facility] [address] [place] [address] Hemoglobin Ql (U) TRACE Abnormal Negative [facility] Comment on above: Performed By: #### 2 523121, 3761898, [id number] #### [facility] [address] [place] [address] Ketones (U) [Mass/Vol] TRACE Abnormal Negative [facility] Comment on above: Performed By: #### 2 518996, [id number], [id number] #### [facility] [address] [place] [address] [address] [place].plasma/[place].R BC (Bld) [Mass ratio] 0-3 Normal 0-3 [facility] Comment on above: Performed By: #### 2 892818, 4887824, [id number] #### [facility] [address] [place] [address] Nitrite Ql (U) Negative Normal Negative [facility] Comment on above: Performed By: #### 2 169728, 5435350, [id number] #### [facility] [address] [place] [address] pH (U) 6.0 [pH] Invalid Interpretation Code 5.0-9.0 [facility] Comment on above: Performed By: #### 2 741593, 6133640, [id number] #### [facility] [address] [place] [address] Protein (U) [Mass/Vol] Negative Normal Negative [facility] Comment on above: Performed By: #### 2 540505, 0350611, [id number] #### [facility] [address] [place] [address] Specific gravity (U) [Rel density] 1.020 Invalid Interpretation Code 1.005-1.030 [facility] Comment on above: Performed By: #### 2 790401, 2991649, [id number] #### [facility] [address] [place] [address] Type of Urine collection method Clean Catch Normal [facility] Comment on above: Performed By: #### 2 302755, 7180396, [id number] #### [facility] [address] [place] [address] Urobilinogen Qn (U) 0.2 {Henny'U}/dL Normal 0.0-1.0 [facility] Comment on above: Performed By: #### 2 828991, 6394504, [id number] #### [facility] [address] [place], [place] [address] WBC Auto Ql (U) TRACE Abnormal Negative [facility] Comment on above: Performed By: #### 2 606518, 4257152, [id number] #### [facility] [address] [place] [address] WBC LM.HPF (Urine sed) [#/Area] 0-5 Normal 0-5 [facility] Comment on above: Performed By: #### 2 564569, 7783244, [id number] #### [facility] [address] [place] [address] Yeast LM Ql (Urine sed) TRACE Normal [facility] Comment on above: Performed By: #### 2 907285, 4889173, [id number] #### [facility] [address] [place] [address] [place]enton 07-22-2020 Consent [id number] .00CD:127 Normal [facility] Consent for Procedure/Surger yon 07-22-2020 Consent for Procedure/Surgery [id number]#1 .00CD:127 Normal [facility] US Follow Upon US Follow Up Exam Date/Time: 07/21/2020 16:30 EDT Reason for Exam: Size - measuring standard growth/amniotic fluid volume;growth q4w - anatomy completed with MFM Report IMPRESSION: SINGLE LIVE INTRAUTERINE CORRESPONDING TO APPROXIMATELY Composite Ultrasound Age: 36 weeks, 3 days. NO GROSS ABNORMALITY IDENTIFIED. US Follow Up: 07/21/2020 4:02 PM CLINICAL HISTORY: Size - measuring standard growth/amniotic fluid volume, growth q4w - anatomy completed with MFM. . Gestational Age by LMP: 37 weeks, 0 days US_F1_EDD_FROM_US Composite Ultrasound Age: 36 weeks, 3 days 37w0d (weeks/days) COMPARISON: None available. Transabdominal ultrasound of the gravid uterus was performed. FINDINGS: A single live intrauterine is noted in vertex position. cardiac activity is measured at 150 bpm. The . PLACENTA: A grade 2-appearing placenta is posterior without evidence of placenta previa. The amniotic fluid volume appears within normal limits for gestation. Amniotic Fluid Index: 15.5 cm MEASUREMENTS: The following measurements were obtained: * Biparietal Diameter: 9.0 cm with the Growth Percentile Rank: 49.0 Percent * Head Circumference: 32.5 cm with the Growth Percentile Rank: 20.0 Percent * Abdominal Circumference: 32.5 cm with the Growth Percentile Rank: 48.0 Percent * Femur Length: 7.0 cm with the Growth Percentile Rank: 21.0 Percent * which corresponds to Composite Ultrasound Age: 36 weeks, 3 days. Report ESTIMATED WEIGHT: Estimated Weight: 2908.6 (grams) Estimated Weight: 6lbs 6.6ozs (lbs/oz) EFW growth percentile rank: 38 (Percent) EFW AUA Percentile: 50.3 (Percent) EFW LMP Percentile: 38.0 (Percent) A full anatomy survey was not performed. FINAL REPORT Dictated: 07/22/2020 3:01 pm Alexy Conn MD, V. Signed (Electronic Signature): 07/22/2020 3:01 pm Signed by: Alexy Conn MD, V. Transcribed by: [facility] Technologist: ADEN Technical Comments CLIFFORD 08/11/20 CLIFFORD Obtained CLIFFORD by US GA 37w 1d History 3 Para 2 Transabdominal Ultrasound Performed Placenta Location posterior Placenta Grade 2 Positioning Vertex Amniotic Fluid Volume Normal Normal [facility] Ambulatory Clinical Summaryo n 07-21-2020 Ambulatory Clinical Summary {[id number] Normal [facility] Ambulatory Clinical Summary {[id number] Normal [facility] Obstetrics Office/Clinic Not jasmine 07-21-2020 Obstetrics Office/Clinic Note Chief Complaint OB 37w, baby moving, swelling fingers and feet goes down with rest and elevating them Obstetric History History (1,0,0,2) # 1 Baby 1 Outcome Date: 2008 Outcome: Live Outcome or Result: Vaginal Gender: Female Gest Age: 41 weeks Wt: 3232 g [place] [facility] [place] Labor: -- Child's Name: -- Baby's Father: -- # 2 Baby 1 Outcome Date: 05/26/2013 Outcome: Live Outcome or Result: Vaginal Gender: Male Gest Age: 39 weeks 3 days Wt: 3390 g Hospital: [facility] Labor: 5 hr 55 min Child's Name: -- Baby's Father: -- Complications: None Complications: None EGA and CLIFFORD Gestational Age (EGA) and CLIFFORD * Note: EGA calculated as of 07/21/2020 CLIFFORD: 08/11/2020 EGA*: 37 weeks Type: Authoritative Method Date: 02/16/2020 Method: Ultrasound (02/16/2020) Confirmation: Confirmed Description: -- Comments: -- Entered by: Caroline HILARIO on 04/21/2020 Other CLIFFORD Calculations for this : No additional CLIFFORD calculations have been recorded for this History of Present Illness ob visit Review of Systems Constitutional: No fever, No chills, No sweats, No weakness. Respiratory: No shortness of breath, No cough. Cardiovascular: No chest pain, Noperipheral edema. Physical Exam Vitals & Measurements BP: 126/76 HT: 158.0 cm HT: 158 cm WT: 89.2 kg WT: 89.2 kg BMI: 35.73 Examinations Glucose Urine Dipstick: Negative Protein Urine Dipstick: Negative Weight Measured: 89.2 kg Systolic Blood Pressure: 126 mmHg Diastolic Blood Pressure: 76 mmHg D-EGA at Documented Date, Time: 37 weeks Fundal Height: 40 cm Labor Signs/Symptoms: None Cervix Dilation: 4 cm Cervix Effacement: 80 Station: -3 Medina's Score: 7 Baby A - Activity: Present per patient Baby A - FHR: 150 bpm Next Appointment: 1 week(s) Antepartum Comment: Signed labor/larc consents. Plans likely combined OCPs PP. Plans to breastfeed. Will start zoloft at delivery. EFW 38% (6# 7oz, 2909g), ALEXY 15.5cm, vtx General Exam: Constitutional: alert, no acute distress, well hydrated, well developed, well nourished. Skin: normal color, no rashes, no lesions, no unusual bruising. Head: atraumatic, normocephalic. Eyes: EOM intact, no nystagmus, no icterus. Ears: no external deformities, gross hearing intact. Respiratory: no respiratory distress. Abdomen: gravid, nontender. Extremities: no deformities, no edema. Psych: oriented to all spheres, affect and mood appropriate, normal interaction, good eye contact. Assessment/Plan RTC 1 wk 1. Supervision of high risk in third trimester (O09.93: Supervision of high risk , unspecified, third trimester) Ordered: Office Visit Level 4 Est 68312 TH 2. Obesity complicating , third trimester (O99.213: Obesity complicating , third trimester) Ordered: Office Visit Level 4 Est 96661 3. Depression during (O99.340: Other mental disorders complicating , unspecified trimester) Ordered: Office Visit Level 4 Est 07712 TH 4. 37 weeks gestation of (Z3A.37: 37 weeks gestation of ) Ordered: Office Visit Level 4 Est 01645 Orders: metronidazole, 500 mg = 1 tab(s), Oral, q12hr, X 7 day(s), # 14 tab(s), Refills(s) 0, Pharmacy: [id number], 158, cm, 07/07/20 20:05:00 EDT, Height/Length Dosing, 88.3, kg, 07/14/20 16:41:00 EDT, Weight Dosing Follow-up With When Contact Information Funmilayo ESCOBEDO MD In [address] [place] [address]- Additional Instructions: Problem List/Past Medical History Ongoing Attention deficit hyperactivity disorder Chronic fatigue syndrome Depression during Insomnia Obesity complicating , third trimester Ovarian cyst Supervision of high risk in third trimester Historical Medications Pepcid 20 mg Tab, 20 mg= 1 tab(s), Oral, BID, 2 refills Multivitamins, 1 tab(s), Oral, Daily Allergies No Known Allergies Social History Alcohol - Denies Alcohol Use, 11/21/2009 DENIES, 04/14/2020 Substance Abuse - Denies Substance Abuse, 11/21/2009 DENIES, 04/14/2020 Tobacco - Denies Tobacco Use, 11/21/2009 Never (less than 100 in lifetime) Tobacco Use:. Never Smokeless Tobacco Use:., 07/06/2020 Family History Diabetes mellitus type 2: Mother and Father. Hypertension: Mother and Father. Immunizations Vaccine Date Status diphtheria/pertussis, acel/tetanus adult 06/23/2020 Given Lab Results Ambulatory Point of Care Results Glucose Urine Dipstick: Negative (07/21/20 16:41:00) Protein Urine Dipstick: Negative (07/21/20 16:41:00) Normal [facility] Comment on above: Result Comment: Elec tronically Signed By: Funmilayo ESCOBEDO MD\.br\Date and Time Signed: 07/21/20 17:39 EDT Patient Educationon 07-22-19 Patient Education Obstetrics and Gynecology Score An score is a number that is based on an assessment of a 's condition right after . A baby's score helps the baby's health care provider to: ? Decide whether the baby needs extra medical care. ? Determine the baby's response to care that is given. Babies are usually given two scores. The first score is calculated at 1 minute after , and the second score is calculated at 5 minutes after . For babies who score less than 7, scores are calculated again at 5-minute intervals up to 20 minutes. What is the scoring system? An scoring system is based on an assessment of the following characteristics. The baby's score is the total number of points that he or she is given after the assessment. Appearance Appearance refers to the color of your baby's skin. Your baby will be given: ? 2 points if the skin is a normal color or pink. ? 1 point if the hands or feet are a different color, usually bluish (acrocyanosis). ? 0 points if the skin is pale or bluish fisher (cyanosis). Pulse Pulse refers to your baby's heartbeat. Your baby will be given: ? 2 points if the heart beats 100 or more times per minute. ? 1 point if the heart beats less than 100 times per minute. ? 0 points if there is no heartbeat. Grimace Grimace, or reflex irritability, refers to how your baby responds to stimulation. Your baby will be given: ? 2 points if he or she coughs, sneezes, cries, or pulls away when stimulated. ? 1 point if he or she makes a face when stimulated. ? 0 points if he or she does not respond when stimulated. Activity Activity, or muscle tone, refers to how active your baby is. Your baby will be given: ? 2 points if he or she is actively moving the arms and legs. ? 1 point if the arms are curled up and the legs are bent but the baby is not actively moving them. ? 0 points if he or she is limp or floppy. Respiration Respiration, or respiratory effort, refers to a baby's breathing. Your baby will be given: ? 2 points if he or she is crying and breathing well. ? 1 point if breathing is slow, weak, or uneven (irregular). ? 0 points if he or she is not breathing. What does my baby's score mean? ? An score of 7 or higher is considered normal. It also usually means that the baby only needs routine care. ? An score of 6 or lower means that the baby might need some type of medical assistance. It is more common for some babies, especially babies who are born too early (prematurely) or through a surgery called delivery, to have a lower score. A score that is low at 1 minute often improves when the assessment is done again at 5 minutes. The score helps your baby's health care provider make decisions about what type of care your baby needs after . The score does not predict how healthy your baby will be in the future. Summary ? An score is a number that is based on an assessment of a 's condition right after . ? An score helps the baby's health care provider decide whether the baby needs extra medical care and how the baby is responding to care that is given. ? An score of 7 or higher is considered normal. If a baby's score is 6 or lower, the baby may need some type of medical assistance. ? The score does not predict how healthy your baby will be in the future. This information is not intended to replace advice given to you by your health care provider. Make sure you discuss any questions you have with your health care provider. Document Released: 05/13/2008 Document Revised: 07/07/2019 Document Reviewed: 07/07/2019 [employer] Patient Education ? 2019 [employer]. [facility] Provider Letteron 07-21-2020 Provider Letter July 21, 2020 To Whom It May Concern, yMa Myles is scheduled to be induced on 08/04/20. [facility] [address] [facility] Ambulatory Clinical Summaryo n 07-14-2020 Ambulatory Clinical Summary {[id number]}CD:[id number] [facility] Obstetrics Office/Clinic Not jasmine 07-14-2020 Obstetrics Office/Clinic Note Chief Complaint OB 36w, baby moving, [place] in morning, feels like underwear are wet and has to shower frequently. Contractions all night and not able to sleep Obstetric History History (1,0,0,2) # 1 Baby 1 Outcome Date: 2008 Outcome: Live Outcome or Result: Vaginal Gender: Female Gest Age: 41 weeks Wt: 3232 g Hospital: [facility] Labor: -- Child's Name: -- Baby's Father: -- # 2 Baby 1 Outcome Date: 05/26/2013 Outcome: Live Outcome or Result: Vaginal Gender: Male Gest Age: 39 weeks 3 days Wt: 3390 g Hospital: -- [facility] Labor: 5 hr 55 min Child's Name: -- Baby's Father: -- Complications: None Complications: None EGA and CLIFFORD Gestational Age (EGA) and CLIFFORD * Note: EGA calculated as of 07/14/2020 CLIFFORD: 08/11/2020 EGA*: 36 weeks Type: Authoritative Method Date: 02/16/2020 Method: Ultrasound (02/16/2020) Confirmation: Confirmed Description: -- Comments: -- Entered by: Caroline HILARIO on 04/21/2020 Other CLIFFORD Calculations for this : No additional CLIFFORD calculations have been recorded for this History of Present Illness ob visit Review of Systems Constitutional: No fever, No chills, No sweats, No weakness. Respiratory: No shortness of breath, No cough. Cardiovascular: No chest pain, Noperipheral edema. Physical Exam Vitals & Measurements BP: 122/76 HT: 158 cm WT: 88.3 kg WT: 88.3 kg BMI: 35.37 Examinations Glucose Urine Dipstick: Negative Protein Urine Dipstick: Negative Weight Measured: 88.3 kg Systolic Blood Pressure: 122 mmHg Diastolic Blood Pressure: 76 mmHg D-EGA at Documented Date, Time: 36 weeks Fundal Height: 36.5 cm Labor Signs/Symptoms: Contractions, Leaking Fluid Cervix Dilation: 4.5 cm Cervix Effacement: 60 Station: -3 Medina's Score: 8.5 Baby A - Activity: Present per patient Baby A - FHR: 140 bpm Next Appointment: 1 week(s) Antepartum Comment: BOW palpated. Ferning neg. Pooling neg. Possible BV with milky white, frothy d/c. Will tx for this as pt having frequent ctx and watery discharge. General Exam: Constitutional: alert, no acute distress, well hydrated, well developed, well nourished. Skin: normal color, no rashes, no lesions, no unusual bruising. Head: atraumatic, normocephalic. Eyes: EOM intact, no nystagmus, no icterus. Ears: no external deformities, gross hearing intact. Respiratory: no respiratory distress. Abdomen: gravid, nontender. Extremities: no deformities, no edema. Psych: oriented to all spheres, affect and mood appropriate, normal interaction, good eye contact. Assessment/Plan RTC 1 wk. Tx for suspected BV as this is linked to labor. Otherwise negative workup for ROM. 1. Supervision of high risk in third trimester (O09.93: Supervision of high risk , unspecified, third trimester) Ordered: Fern Test Q0114 Office Visit Level 4 Est 19186 NC 2. Obesity complicating , third trimester (O99.213: Obesity complicating , third trimester) Ordered: Fern Test Q0114 Office Visit Level 4 Est 76366 [place] 3. Depression during (O99.340: Other mental disorders complicating , unspecified trimester) Ordered: Fern Test Q0114 Office Visit Level 4 Est 55985 NC 4. 36 weeks gestation of (Z3A.36: 36 weeks gestation of ) Ordered: Fern Test Q0114 Office Visit Level 4 Est 15307 [place] 5. Bacterial vaginosis (N76.0: Acute vaginitis) Ordered: Fern Test Q0114 Office Visit Level 4 Est 31052 NC Orders: metronidazole, 500 mg = 1 tab(s), Oral, q12hr, X 7 day(s), # 14 tab(s), Refills(s) 0, Pharmacy: [id number], 158, cm, 07/07/20 20:05:00 EDT, Height/Length Dosing, 88.3, kg, 07/14/20 16:41:00 EDT, Weight Dosing Follow-up With When Contact Information Funmilayo ESCOBEDO MD In 1 week [address] [place] [address]- Additional Instructions: Funmilayo ESCOBEDO MD In 1 week [address] [place] [address]- Additional Instructions: Problem List/Past Medical History Ongoing Attention deficit hyperactivity disorder Chronic fatigue syndrome Depression during Insomnia Obesity complicating , third trimester Ovarian cyst Supervision of high risk in third trimester Historical Medications Flagyl 500 mg Tab, 500 mg= 1 tab(s), Oral, q12hr Pepcid 20 mg Tab, 20 mg= 1 tab(s), Oral, BID, 2 refills Multivitamins, 1 tab(s), Oral, Daily Allergies No Known Allergies Social History Alcohol - Denies Alcohol Use, 11/21/2009 DENIES, 04/14/2020 Substance Abuse - Denies Substance Abuse, 11/21/2009 DENIES, 04/14/2020 Tobacco - Denies Tobacco Use, 11/21/2009 Never (less than 100 in lifetime) Tobacco Use:. Never Smokeless Tobacco Use:., 07/06/2020 Family History Diabetes mellitus type 2: (more content not included)... Normal [facility] Comment on above: Result Comment: Elec tronically Signed By: LAURA MACEDO, Funmilayo Garner.br\Date and Time Signed: 07/14/20 17:27 EDT Patient Educationon 07-15-19 21 Patient Education Obstetrics and Gynecology Score An score is a number that is based on an assessment of a 's condition right after . A baby's score helps the baby's health care provider to: ? Decide whether the baby needs extra medical care. ? Determine the baby's response to care that is given. Babies are usually given two scores. The first score is calculated at 1 minute after , and the second score is calculated at 5 minutes after . For babies who score less than 7, scores are calculated again at 5-minute intervals up to 20 minutes. What is the scoring system? An scoring system is based on an assessment of the following characteristics. The baby's score is the total number of points that he or she is given after the assessment. Appearance Appearance refers to the color of your baby's skin. Your baby will be given: ? 2 points if the skin is a normal color or pink. ? 1 point if the hands or feet are a different color, usually bluish (acrocyanosis). ? 0 points if the skin is pale or bluish fisher (cyanosis). Pulse Pulse refers to your baby's heartbeat. Your baby will be given: ? 2 points if the heart beats 100 or more times per minute. ? 1 point if the heart beats less than 100 times per minute. ? 0 points if there is no heartbeat. Grimace Grimace, or reflex irritability, refers to how your baby responds to stimulation. Your baby will be given: ? 2 points if he or she coughs, sneezes, cries, or pulls away when stimulated. ? 1 point if he or she makes a face when stimulated. ? 0 points if he or she does not respond when stimulated. Activity Activity, or muscle tone, refers to how active your baby is. Your baby will be given: ? 2 points if he or she is actively moving the arms and legs. ? 1 point if the arms are curled up and the legs are bent but the baby is not actively moving them. ? 0 points if he or she is limp or floppy. Respiration Respiration, or respiratory effort, refers to a baby's breathing. Your baby will be given: ? 2 points if he or she is crying and breathing well. ? 1 point if breathing is slow, weak, or uneven (irregular). ? 0 points if he or she is not breathing. What does my baby's score mean? ? An score of 7 or higher is considered normal. It also usually means that the baby only needs routine care. ? An score of 6 or lower means that the baby might need some type of medical assistance. It is more common for some babies, especially babies who are born too early (prematurely) or through a surgery called delivery, to have a lower score. A score that is low at 1 minute often improves when the assessment is done again at 5 minutes. The score helps your baby's health care provider make decisions about what type of care your baby needs after . The score does not predict how healthy your baby will be in the future. Summary ? An score is a number that is based on an assessment of a 's condition right after . ? An score helps the baby's health care provider decide whether the baby needs extra medical care and how the baby is responding to care that is given. ? An score of 7 or higher is considered normal. If a baby's score is 6 or lower, the baby may need some type of medical assistance. ? The score does not predict how healthy your baby will be in the future. This information is not intended to replace advice given to you by your health care provider. Make sure you discuss any questions you have with your health care provider. Document Released: 05/13/2008 Document Revised: 07/07/2019 Document Reviewed: 07/07/2019 [employer] Patient Education ? [address] [employer] [facility] Coding Summary.on 07-12-2020 Coding Summary. CD:[id number] G h0bWw+PGhlYWQ+QR8LIWP jP17vxIAshC9II1gPBQ2G USYKURYRUY8NNB0ifLV4G IiuX6JkvsDs HbkqdGKkBM84ZQd9TAS4f ScgBFcdeF6niFPsI7w0Eu McFH03uU09QIciCTJgCmI 3LjZpbjsgbWFy Y4rxNpAjrQZhDrq+PHRhY mxlIHdpZHRoPScxMDAlJy SzbAbgOI0iBu9zHUDtGGY vbGxhcHNlOiBj j0nyIFLdUGbjPU7vhDzwQ 4UkwYA3HRJhv9a0Ed24fB I+BPUdAYB1eLslELtoz87 8BpCax5bmMQN3 qFTrOSysIMS1Z07hi3M6H DOzPSBjTTB5nSF6oG3iiE nkpmfhM1XzeZSrWuB2EER 1vXGfbX5vfOin rfzgmC7eDen+L01IRM7AK JZWCJ5EDfb6C2UbMikhsU I+DH64XDUwYM57hFTcuKU cp7tbtRj9HaIw AYAwZSH3wQnxTHaaq4WuC CPqH42gzQNre9I2FRGonB sovVIqDsWwdAX2aY6bOJn orrfqp0suvevf Osnse5oahs18jU23E81xY HexFBHeTMI0ZOErSXEbwZ atxc8hgF5gPh8+QUird6v dv5gdoNj5QzKk IJHwywAyqXkuWKR5p8NrF l49N7DwxRnbi6WlUyf0ld 65zUFyk6B6pBO8GRhsQQF xuA0jVFiyMxZ4 NNVqJrUrwN23nVTwXXbyG b1qvLjfxWieTU0qVVNsen ahSLJbfA3gGFPpuRQswIg qHT8uZYToohcj i130GfPoNHP3SEUrpVFyJ 1HwaV8lIvUcUIOlUJRaN3 OfjYEeQRxlO973JZroLtF 6KITpzpEaU7Ji CABhyDujOgG6m1L7Sp9Cd 7QivnjqYCU0YJejYUF9Im H1RhCzPnR9D3PjChv2ENL drYyqSG6mG3Lq NIJsfqihipipcXN0RULyP AQmpI84gRVcUCzqLb7av1 T8u960CBWhFOAyrZ84Bj4 udDogMTBwdCBU pE1fswsuh8vwyeudOcIgA HPuPWy7LYa9ECMtpMpcBt KmMLA7GzM0ILJ5fSAxcV6 ctUgyjllzsA3l Oyc+B08noN0pGMG2BMT0q izsUAOtfrHhFL71HC54A7 RyPjwvdGFibGU+PGRpdiB nrFtlNG4qDyBc g1rrf4QtHCjsS2QfEHMzP IdbReb2AZUrVVL2rQC2gE 1wOLUyDIlia9H0hQZ2I6H yqxBabs7wa5ip RXOcTYznW03vhSTwg3L9J ZBnaKA8UJYrhNynCpYcoG 93Oyc+BKFelWxcp6YrKza xt8hpg7fhiHq7 TzGeMYFdbkNsnTleNRB0g 8HeCg94A65mZKlcGEYvRP YdMCVaVRLeqTudxs1vvZ7 wIi8+PGNvbCB3 eZT0sS6fSLLrJqQ7EJmbA 140IcSztFQkGsekf1afr5 mjwBo9CxZbDMVrtbBexTw dLZQ3r4FwKk99 C54xPGbpTXGsAMWiPKWbB WIqcPbspe0leP6bUt9+PC 0dk5ikin29hM19wHL+PHR vRQT1iSbdMQfe PTGxaG8lDDojKjO2MFEtW wEnnA12bVSnULcyHl0kvA ofdTxoRI0cGZSjgdfah67 2JvJip3ezDVVe cLEcNWatECC1P37as6M9E MTtBLRdCZS9vNX1nF6zfF lnbjogbGVmdDsgdmVydGl oBBliXWtrK314 IHRvcDsnPlBhdGllbnQgT rVdLXk8Z2CkMqt1ZCIynG woJI1evIWuDIplCx5wkOg uyQhzTS4iZYIx susop772XdBxs3opRHGej OJgHDqjKDZ6E41wf4E0BP DzDAYrMCK9aVW3hM1btTv nbjogbGVmdDsg kjWktSasTYwwQNgvC308X HRvcDsnPkJpcnRoIERhdG Q6GY65XR65sUUvo5Q9uIQ 4V7KuKJSykvbf vryauLR4BNKnOZYlxX32R a2ruPecTy8eYKLqMZT3LP MpfLYyY5BbcV7uBbDvYOH eSMAxM9FaxNSn ADcgW117MCjzOyH7DFNdk uKwX4AtUTOzrQmtWwV7w7 F7Kx8XB7I0AU23WY47sYU en9S0rMN1C8Lu TNZrwddujqevfZC8XIJaE LPxhY42Ei3thMubZk6wWC NmXXX0FXAauCJrQ1BjcC3 yOiAjMDAwMDAw Q7XmnKDrBYvbU160DJwwO uJ4JVPnkjBeT7FnOUBalT woYmF3k1O4Bb2EYLh1YX5 1FK31zLOmh7A5 tJH8P7LkARUlcotcwmbrf JE8MCXlHQKwsM54Pj3yhZ ygKq6jTHNhSUS6VNPxaNH rB1DmrZ9vUjFu MWUnUNJaB4FmgYEsVBdqV 105BBbjSfS3TUWfnzNtY5 IyIYNpgMvkBgF4p9B8Wy5 PZDXhRR27LHQ5 fOC0WN30AG54T7WdZmopp GFibGU+PHRhYmxlIHdpZH RoPScxMDAlJyBzdHlsZT0 kJz9pVTPuQNVu lBnumJEdEjKen8feZLWnV CydPG1vkHmeN1DvdVL0PU Tpo9c7Tp24W05jK6XdrVX +CQPtrHA3qNY0 uG8zOsGvTrT5AJfgV954G zMpfWQvXdvzm9fie1sjuH j1VfP8LYSrjdLpxOygKRF 1d2GnOf49I05b IHdpZHRoPSIxNSUiIHZhb Xtezo8hoU5iMp9+PGNvbC R0lLJ5yY9rMdVgZtZ1OUe nT231YtAteRAe Wrrdg0lne7dxnTe5ZrToK YMhgmKzlPdgTDC2f8GcQj 87H9PvqTjhq8LpFki4km2 8aKNky8W7uVR0 D4JuLJHpdqrbmGBclWvkK Q3wCACeversDOEdiY7lWD TmO8f5JoRsNzL9DSndM8W oqiS2FAAnjJRu OTloJJC8P04ki1T3GDGuL DIqYHC7jLA1xY2wdEqamr ogbGVmdDsgdmVydGljYWw gRLkwN821VBKc wAvqSTHihU4qPLRhlZIas NcnTW5eWBBciidvIgROGn bIJq2sFJNPDgSII6VbOOo vdGQ+PHRkIHN0 vUlqIFgbXKUskV7bNPJjH 6g9ZkRoQtR1NQjoW7CiFX YuyqmwUe71gY2vRmCsNuQ 6FZchT0TiekL8 KRDcvCRwBMrsAWT6F39rl 3P1WDKvOOIuNIJ2gVI6lP 1hbGlnbjogbGVmdDsgdmV ydGljYWwtYWxp Z241GPOfsGkvZsS5SgYeE hW3WAF3V1HiUse5QLOvbQ jbAB6xkCEpKJvhZt7ugXw auThsLW9qDEQo qgznZORwvH0pWBOauRNcc FtlUK7xHGQbwrqwh471Wi EkPPY0DVRhyOLuC2CnvL4 yOiAjMDAwMDAw P5DxcSTlEXthS697DOgtI aH0EFGuydDkG7ZjWQPbpF gyPxE3v5W1Go7vIQKBWFS yczwvdGQ+PHRk QJP6xHfnPMniYKCsmN3eF NUmJ5h4UhJgSgE4GUinF1 WnRMVhkblvMr88rN1xRxB gNnK2QVtxV6Pj vkV0OGVnpTCbNOcxSOH0D 48vm1M1DEQaQCPfFCY4xU Q0uU0kbAaxzwvtjQHkwSs gdmVydGljYWwt FFvaE063PXZzcNuoMgIpi WFsZTwvdGQ+KJDwBER2dG nhDRruHNXhaZ3yOTBfS1z 4JqVdBcN7GQqm T8EePWLfbcvzMa61eK2bZ mSkEqX5FYhhM7XxpdB8QG TzzBKnTXwpKMW7M47bm6V 3GVNfSZDnHUZ0 dID8aH1mlRajnpjstBWdj DsgdmVydGljYWwtYWxpZ2 84KCIesOysZs7XOSCmoOL nZTwvdGQ+PC90 hi29D9NoZqbmCfb8DELbZ ZP3wPD3nD3qNNQeOYeei6 V1oOP5P3XvvwPzxe8sz8d eKOKrSJijU57p iCSyp7U6EREelHH6AWMso CajPjKssE37Ucr+PGNvbG mgu6DhLxcze1eyn0sjyJz 9IjMwJSIgdmFs gAbsAQN1y7KoOb54C36jU HdpZHRoPSIzMCUiIHZhbG ruge7khL0zCz7+PGNvbCB 5jTP3kJ7pRfRq QpI1BYlwR124WhPinIFpS kbgh4faf2sidVh7KaHeBQ TmqgZqrYknQWB8h1YgLs5 9G4MboFmvh8Sj Oia2xd53xEBhc1H6jFE4I 3BhZGRpbmctbGVmdDogMC 7uUUVzjgoxIWOplT5cHTW iN6y9OlYyPcD4 JBzdP9BmphH3KNGisOUcQ DYxzYJEvP0khhkdb1wehe jmLcPrBFNoDCk6KEp4NTI saWduOiBsZWZ0 GjA2EFJ8fWWzxC0zmZvvj psgxM4kCmr+SWj9u4gnvW WbNN2yqZG2AW33HE04dGB ha2G5uGJ1W8Rx QTKosamoitjxiAW6LYWkE AVxfM63Lj1abApyWr5dFG JjQJX5NCHnjZPyY3ZknS5 yOiAjMDAwMDAw C3PdyJIrBUqsH870MSnrV uT3AGLewxOaN8SpWCOagN ioPsH0o0J0Bl8DHQ61AR6 1GR86iYYrl0M3 rIW2N7MqYJKvmdmbmamdd AT2HSCaODYtoG41Dr3gzO xuEw2cJMOoVVG5NATbgAU pW0PvfU3xFuOh YEEfWNBuX3SelYYvZStnQ 383ARwpJpE4ILUjxaLvD8 OuDAFxyEbpGkV1i0M9Jm4 YKd34UI67FB20 pUSde9Y3iUA6A9FnIELot tteebderVN7UBTdERCbrM 29Uy2thSjvMh7aVYZoAVM 7PIXcaUDiL8Iu oI2oTnYoNNBlYUWlO6Tdi WChQUfuI864VJipQkS8UO BrtaSqJ6SsDTDjnHmeLnH 9q0B6Rx3DVYgq alj4B3DyCkhghCD+PC90Y HMtPJ14nVVtoYHwj5rldD c7ElQmVAKgNKE2mRnaEVw kl4IeZDPhA26u bGFw (more content not included)... Normal [facility] Insurance Correspondenceon 0 07-12-2020 Insurance Correspondence [id number]# 1.00CD:127 Normal [facility] Insurance Correspondence Off iceon 07-12-2020 Insurance Correspondence Office [id number]# 1.00CD:127 Normal [facility] Nursing Assessmenton 021 Nursing Assessment [id number]# 1.00CD:127 Normal [facility] Group B Strep by PCRon 07-09 Group B Strep colonization by PCR Negative Normal Negative [facility] Comment on above: Order Comment: vagin al swab Performed By: #### 2 120938, [id number], [id number] #### [facility] [address] [place] [address] ABO/Rhon 07-08-2020 ABO/Rh Positive Invalid Interpretation Code [facility] Comment on above: Performed By: #### 1 [id number], [id number], [id number], [id number] #### [facility] [address] [place] [address] ABO/Rh History Checkon 07-08 ABO/Rh History Check Verified Hx Blood Type Normal [facility] Comment on above: Performed By: #### 1 [id number], [id number], [id number], [id number] ####[facility] [address] [place] [address] ABSCon 07-08-2020 ABSC Gel Interp Negative Normal [facility] Comment on above: Performed By: #### 1 [id number], [id number], 0598571, [id number] ####[facility] [address] [place] [address] BUNon 07-08-2020 Urea nitrogen [Mass/Vol] 7 mg/dL Normal - [facility] Comment on above: Performed By: #### 2 699389, 8697200, [id number] #### [facility] [address] [place] [address] Blood Bank ID#on 07-08-2020 BBID# [id number] Invalid Interpretation Code [facility] Comment on above: Performed By: #### 1 [id number], [id number], [id number], [id number] ####[facility] [address] [place] [address] CBC w/Indiceson 07-08-2020 Erythrocyte distribution width (RBC) [Ratio] 13.6 % Normal 10.9-14.2 [facility] Comment on above: Performed By: #### 2 867996, 5126677, [id number] #### [facility] [address] [place] [address] Hematocrit (Bld) [Volume fraction] 28.9 % Low 34.0-46.0 [facility] Comment on above: Performed By: #### 2 184581, 2189913, [id number] #### [facility] [address] [place] [address] Hemoglobin (Bld) [Mass/Vol] 9.7 g/dL Low 12.0-16.0 [facility] Comment on above: Performed By: #### 2 987644, 4939867, [id number] #### [facility] [address] [place] [address] MCH (RBC) [Entitic mass] 27.4 pg Normal 27.0-34.0 [facility] Comment on above: Performed By: #### 2 591800, 9998837, [id number] #### [facility] [address] [place] [address] MCHC (RBC) [Mass/Vol] 33.5 g/dL Normal 31.4-36.[address] [facility] Comment on above: Performed By: #### 2 048753, 0929786, [id number] #### [facility] [address] [place] [address] MCV (RBC) [Entitic vol] 81.7 fL Normal 80.0-100.0 [facility] Comment on above: Performed By: #### 2 126934, 1412984, [id number] #### [facility] [address] [place] [address] Platelet mean volume (Bld) [Entitic vol] 7.9 fL Normal 6.4-10.8 [facility] Comment on above: Performed By: #### 2 782054, 1480663, [id number] #### [facility] [address] [place] [address] Platelets (Bld) [#/Vol] 320.0 E9/L Normal 150.0-500.0 [facility] Comment on above: Performed By: #### 2 161316, 9254801, [id number] #### [facility] [address] [place] [address] RBC (Bld) [#/Vol] 3.5 E12/L Low 4.3-5.9 [facility] Comment on above: Performed By: #### 2 657904, 1526354, [id number] #### [facility] [address] [place] [address] WBC corrected for nucl RBC Auto (Bld) [#/Vol] 9.9 E9/L Normal 4.0-11.0 [facility] Comment on above: Performed By: #### 2 063349, 4953843, [id number] #### [facility] [address] [place] [address] Creatinineon 07-08-2020 Creatinine [Mass/Vol] 0.4 mg/dL Low 0.5-1.3 [facility] Comment on above: Performed By: #### 2 796995, 1074649, [id number] #### [facility] [address] [place] [address] Discharge Instructionson Discharge Instructions [id number]# 1.00CD:127 Normal [facility] FSPon 07-08-2020 Fibrin+Fibrinogen fragments (S) [Mass/Vol] <10 Normal <10 [facility] Comment on above: Performed By: #### 2 528425, 2478763, [id number] #### [facility] [address] [place] [address] Stainon 07-08-2020 FMHV 0 mL Invalid Interpretation Code [facility] Comment on above: Performed By: #### 2 107222, 7685817, [id number] #### [facility] [address] [place] [address] Negative Control Negative Normal [facility] Comment on above: Performed By: #### 2 684435, 8356325, [id number] #### [facility] [address] [place] [address] Fibrinogenon 07-08-2020 Fibrinogen Coag (PPP) [Mass/Vol] 451 mg/dL High 200-393 [facility] Comment on above: Performed By: #### 2 333419, 3340799, [id number] #### [facility] [address] [place] [address] Hep Func Panelon 07-08-2020 Bilirubin.indirect [Mass or moles/Vol] UTC Abnormal 0.1-0.9 [facility] Comment on above: Result Comment: Resu lt verified by Discern Rule. Performed result UTC (Unable to Calculate) was sent as an Alpha code due the inability to calculate a valid numeric value. Performed By: #### 2 232236, 7897559, [id number] #### [facility] [address] [place] [address] Albumin [Mass/Vol] 2.6 g/dL Low 3.3-5.0 [facility] Comment on above: Performed By: #### 2 924669, 2615714, [id number] #### [facility] [address] [place] [address] Albumin/Globulin (S) [Mass conc ratio] 0.8 Low 1.1-2.2 [facility] Comment on above: Performed By: #### 2 110112, 2534682, [id number] #### [facility] [address] [place] [address] ALP [Catalytic activity/Vol] 108 Int._Unit/L High 21-98 [facility] Comment on above: Performed By: #### 2 323372, 8515180, [id number] #### [facility] [address] [place] [address] 285[address] ALT No additional P-5'-P [Catalytic activity/Vol] 13 Int._Unit/L Normal 6-46 [facility] Comment on above: Performed By: #### 2 503625, 5497306, [id number] #### [facility] [address] [place] [address] AST [Catalytic activity/Vol] 22 Int._Unit/L Normal 5-43 [facility] Comment on above: Performed By: #### 2 951636, 8326698, [id number] #### [facility] [address] [place] [address] Bilirubin [Mass/Vol] 0.4 mg/dL Normal 0.0-1.1 [facility] Comment on above: Performed By: #### 2 [id number], [id number] #### [facility] [address] [place] [address] Bilirubin.direct [Mass/Vol] mg/dL Normal 0.1-0.4 [facility] Comment on above: Performed By: #### 2 [id number], [id number], [id number] #### [facility] [address] [place] [address] Globulin (S) [Mass/Vol] 3.4 g/dL Normal 1.4-4.0 [facility] Comment on above: Performed By: #### 2 [id number], [id number], [id number] #### [facility] [address] [place] [address] Protein [Mass/Vol] 6.0 g/dL Normal 6.0-7.8 [facility] Comment on above: Performed By: #### 2 [id number], [id number], [id number] #### [facility] [address] [place] [address] Inpatient Clinical Summaryon 07-08-2020 Inpatient Clinical Summary [address] [address] Clinical Summary Person Information Name: MYA MYLES [facility] Age: 30 Years : 1990 Sex: Female PCP: Chao Blackwell III, DO Marital Status: Single Race: White Ethnicity: Non- or Language: Algerian Visit Id: Visit Reason: Speciality: Acuity: Obs Enc Type: OB Triage Med Service: Obstetrics Arrival: 07/07/2020 19:39:51 Discharge: 07/08/2020 21:22:00 Dispo Type: Home (Routine DC) Address: [address] [place] [address] [address] [place] [id number] Provider Notes: Diagnosis: Problems Active Obesity complicating , third trimester Supervision of high risk in third trimester Depression during (10/16/2019) Ovarian cyst Smoking Status: Never Smoker Functional Status: Sensory Deficits: History of Falls: Mobility Assistance Prior to Admission: ADLs: Independent Current Level of Assistance for Self-Care/Mobility: Cognitive Status: Allergies No Known Allergies Laboratory or Other Results This Visit (last charted value for your 07/07/2020 visit) Hematology 07/07/2020 10:17 PM Hct: 28.9 % -- Normal range between ( 34.0 and 46.0 ) Hgb: 9.7 gm/dL -- Normal range between ( 12.0 and 16.0 ) RBC: 3.5 E12/L -- Normal range between ( 4.3 and 5.9 ) RDW: 13.6 % -- Normal range between ( 10.9 and 14.2 ) MCH: 27.4 pg -- Normal range between ( 27.0 and 34.0 ) MCHC: 33.5 gm/dL -- Normal range between ( 31.4 and 36.0 ) MCV: 81.7 fL -- Normal range between ( 80.0 and 100.0 ) MPV: 7.9 fL -- Normal range between ( 6.4 and 10.8 ) Platelet: 320.0 E9/L -- Normal range between ( 150.0 and 500.0 ) WBC: 9.9 E9/L -- Normal range between ( 4.0 and 11.0 ) Coagulation 07/07/2020 10:17 PM FSP: <10 INR: 1.0 Fibrinogen: 451 mg/dL -- Normal range between ( 200 and 393 ) PT: 12.2 second(s) -- Normal range between ( 10.2 and 12.9 ) PTT: 25.4 second(s) -- Normal range between ( 25.1 and 36.5 ) Urinalysis 07/07/2020 8:22 PM UA Bacteria: 1+ /HPF UA Bili: Negative UA Color: Yellow UA Glucose: Negative UA Ketones: Trace UA Leuk Est: Negative UA Mucous: Trace UA Nitrite: Negative UA Protein: Negative UA RBC: >30 /HPF UA Squam Epithelial: >10 /HPF UA Urobilinogen: 0.2 EU/dL -- Normal range between ( 0.0 and 1.0 ) UA WBC: 0-5 /HPF UA Spec Desc: Clean Catch UA Blood: 2+ UA Clarity: Clear UA pH: 5.5 -- Normal range between ( 5.0 and 9.0 ) UA Spec Grav: 1.025 -- Normal range between ( 1.005 and 1.030 ) Chemistry 07/07/2020 10:17 PM Creatinine: 0.4 mg/dL -- Normal range between ( 0.5 and 1.3 ) A/G Ratio: 0.8 -- Normal range between ( 1.1 and 2.2 ) AGAP: 9 mEq/L -- Normal range between ( 6 and 16 ) Albumin Lvl: 2.6 gm/dL -- Normal range between ( 3.3 and 5.0 ) Alk Phos: 108 Int._Unit/L -- Normal range between ( 21 and 98 ) ALT: 13 Int._Unit/L -- Normal range between ( 6 and 46 ) AST: 22 Int._Unit/L -- Normal range between ( 5 and 43 ) Bili Direct: <0.1 mg/dL -- Normal range between ( 0.1 and 0.4 ) Bili Total: 0.4 mg/dL -- Normal range between ( 0.0 and 1.1 ) CO2: 21 mmol/L -- Normal range between ( 21 and 31 ) Sodium Lvl: 135 mmol/L -- Normal range between ( 135 and 145 ) Total Protein: 6.0 gm/dL -- Normal range between ( 6.0 and 7.8 ) BUN: 7 mg/dL -- Normal range between ( 5 and 21 ) Potassium Lvl: 3.4 mmol/L -- Normal range between ( 3.5 and 5.3 ) Uric Acid: 2.7 mg/dL -- Normal range between ( 2.2 and 7.4 ) Chloride: 108 mmol/L -- Normal range between ( 101 and 111 ) Bili Indirect: Unable to Calculate mg/dL -- Normal range between ( 0.1 and 0.9 ) eGFR: >60 mL/min/1.73 m2 eGFR AA: >60 mL/min/1.73 m2 Globulin: 3.4 gm/dL -- Normal range between ( 1.4 and 4.0 ) Blood Bank 07/07/2020 10:17 PM ABO/Rh: A POS ABSC Gel Interp: Negative FMHV: 0 mL 07/07/2020 8:15 PM Fibronectin: Negative Serology 07/07/2020 8:18 PM PAMG-1 Protein: Negative Measurements: Height: 158 cm Weight: 88.2 kg Blood Pressure: 112 mmHg / 56 mmHg BMI: 35.33 kg/m2 Procedures No Procedures Documented Immunizations No Immunizations Documented This Visit Final Med List: famotidine (Pepcid 20 mg Tab) 1 Tablets By Mouth 2 times a day. Refills: 2. multivitamin, ( Multivitamins) 1 Tablets By Mouth every day. Care Team Members: Attending Physician: Sukhdeep Schaffer MD Consulting Physician: Referring Physician: Follow up: With: Address: When: Funmilayo ESCOBEDO [address] [place] [address] [facility] (1) In 3 days 07/11/2020 Comments: Call Dr. Kramer office Saturday to see if she wants to see you sooner. If not keep appointment. Call for any problems. Call for severe abdominal pain Call physician for heavy vaginal bleeding (more content not included)... Normal [facility] Inpatient Patient Summaryon 07-08-2020 Inpatient Patient Summary [address] [address] Patient Discharge Instructions PERSON INFORMATION Name: MYA MYLES Date of : 1990 Current Date: 07/08/2020 21:31:37 PHYSICIANS Admitting Physician: Sukhdeep Schaffer MD Primary Care Physician: Chao Blackwell III, DO PCP Comment: Discharge Diagnosis: Condition at Discharge: MYLES, MYA L has been given the following list of follow-up instructions, prescriptions, and patient education materials: PATIENT FOLLOW-UP INFORMATION Diet: Activity: Wound Care Instructions: Remove Your Dressing IN: Days Call Your Doctor For: IF UNABLE TO CONTACT YOUR PHYSICIAN AND YOU FEEL IT IS AN EMERGENCY, GO TO THE NEAREST EMERGENCY ROOM OR CALL 911 Home Treatment: Devices/Equipment: Special Services: Additional Instructions: Physician to provide the following pending test results: Follow up: With: Address: When: Funmilayo ESCOBEDO [address] [place] [id number] [facility] (1) In 3 days 07/11/2020 Comments: Call Dr. Kramer office Saturday to see if she wants to see you sooner. If not keep appointment. Call for any problems. Call for severe abdominal pain Call physician for heavy vaginal bleeding Call physician if symptoms worsen Return for contractions closer, longer, and harder Return for decreased movement Return if ruptured membranes or vaginal bleeding In the event that this physician does not participate in your insurance network, please consult with your insurance company to find a nearby participating provider. Type Location Start Finish State [facility] 07/14/2020 4:30 PM 07/14/2020 4:45 PM Confirmed [facility] Ul[facility]ound [facility] 07/21/2020 4:00 PM 07/21/2020 4:45 PM Confirmed [facility] 07/21/2020 4:30 PM 07/21/2020 4:45 PM Confirmed [facility] 07/27/2020 2:45 PM 07/27/2020 3:00 PM Confirmed [facility] 08/02/2020 4:30 PM 08/02/2020 4:45 PM Confirmed [facility] 09/15/2020 9:00 AM 09/15/2020 9:30 AM Confirmed Comment: JUSTINO Burton VANESSA L, have received the attached patient education materials/instruction s and have verbalized understanding. Patient Signature Date Clinican/Nurse Signature Date MEDICATION LIST Medications to Continue with No Changes Other Medications famotidine (Pepcid 20 mg Tab) 1 Tablets By Mouth 2 times a day. Refills: 2. Last Dose: ____Next Dose: ____ multivitamin, ( Multivitamins) 1 Tablets By Mouth every day. Last Dose: ____Next Dose: ____ Pharmacy Information: [facility] PATIENT EDUCATION INFORMATION Instructions: Labor, Home Care labor is when a woman has contractions that cause the cervix to open, shorten and thin before 37 weeks of . You will have regular contractions (tightening) 2 to 3 minutes apart. This usually causes discomfort or pain. HOME CARE Eat a healthy diet. Take your vitamins as told by your doctor. Drink 6 to 8 glasses of water a day. Get rest and sleep. Do not have sex if you have or are at high risk for labor. Follow your doctor's advice about activity, medicines and tests. Avoid stress. Avoid hard labor or exercise that lasts for a long time. Do not smoke. GET HELP IF: You are having contractions. You have belly (abdominal) pain. You have bleeding from your vagina. You have pain when you pee (urinate). You have abnormal discharge from your vagina. You develop a fever over 102? F (38.9? C) or higher. Document Released: 05/03/2009 [place]? Patient Information ?2009 [employer]. Labor and Information normally lasts 39?41 weeks. labor is when labor starts early. It starts before you have been for 37 whole weeks. What are the risk factors for labor? labor is more likely to occur in women who: ? Have an infection while . ? Have a cervix that is short. ? Have gone into labor before. ? Have had surgery on their cervix. ? Are younger than age 17. ? Are older than age 35. ? Are . ? Are with two or more babies. ? Take street drugs while . ? Smoke while . ? Do not gain enough weight while . ? Got right after another . What are the symptoms of labor? Symptoms of labor include: ? Cramps. The cramps may feel like the cramps some women get during their period. The cramps may happen with watery poop (diarrhea). ? Pain in the belly (abdomen). ? Pain in the lower back. ? Regular contractions or tightening. (more content not included)... Normal [facility] 07-08-2020 Anion gap [Moles/Vol] 9 mmol/L Normal 6-[address] [facility] Comment on above: Performed By: #### 2 [id number], [id number], [id number] #### [facility] [address] [place] [address] Chloride [Moles/Vol] 108 mmol/L Normal 101-111 [facility] Comment on above: Performed By: #### 2 629837, 3488139, [id number] #### [facility] [address] [place] [address] CO2 [Moles/Vol] 21 mmol/L Normal 21-31 [facility] Comment on above: Performed By: #### 2 999732, 4490366, [id number] #### [facility] [address] [place] [address] Potassium [Moles/Vol] 3.4 mmol/L Low 3.5-5.[address] [facility] Comment on above: Performed By: #### 2 360045, 5766916, [id number] #### [facility] [address] [place] [address] Sodium [Moles/Vol] 135 mmol/L Normal 135-145 [facility] Comment on above: Performed By: #### 2 053004, 2016408, [id number] #### [facility] [address] [place] [address] PT & PTTon 07-08-2020 aPTT Coag (PPP) [Time] 25.4 second(s) Normal 25.1-36.5 [facility] Comment on above: Result Comment: Hepa rin therapeutic range (represented by Anti-Factor Xa activity of 0.2 - 0.4 U/mL) corresponds to PTT of 56.6 - 109.0 sec. Performed By: #### 2 567696, 0330837, [id number] #### [facility] [address] [place] [address] INR Coag (PPP) [Relative time] 1.0 {INR} Invalid Interpretation Code [facility] Comment on above: Result Comment: INR results are specifically intended to assess patients stabilized on long-term Anticoagulation therapy suggested INR?s ?Less Intensive Anticoagulation? 2.0 ? 3.0 Conventional Range 3.0 ? 4.5 Performed By: #### 2 163681, 8442400, [id number] #### [facility] [address] [place] [address] PT Coag (PPP) [Time] 12.2 second(s) Normal 10.2-12.9 [facility] Comment on above: Performed By: #### 2 573211, 0054215, [id number] #### [facility] [address] [place] [address] Uric Acidon 07-08-2020 Urate [Mass/Vol] 2.7 mg/dL Normal 2.2-7.4 [facility] Comment on above: Performed By: #### 2 520036, 5639027, [id number] #### [facility] [address] [place] [address] eGFRon 07-08-2020 GFR/1.73 sq M.predicted among blacks MDRD (S/P/Bld) [Vol rate/Area] mL/min/{1.73_m2} Normal >=59 [facility] Comment on above: Order Comment: Order Added by Discern Expert. Result Comment: eGFR is race adjusted. AA=. Performed By: #### 2 106963, 1055431, [id number] #### [facility] [address] [place] [address] GFR/1.73 sq M.predicted among non-blacks MDRD (S/P/Bld) [Vol rate/Area] mL/min/{1.73_m2} Normal >=59 [facility] Comment on above: Order Comment: Order Added by Discern Expert. Result Comment: Belt Buckle Maker ramesh kidney disease could be indicated at eGFR's of less than 60 mL/min/1.73m2. Kidney failure is indicated at less than 15 mL/min/1.73m2. Performed By: #### 2 912119, 9449747, [id number] #### [facility] [address] [place] [address] AmniSureon 07-07-2020 PAMG-1 Protein Negative Normal Negative [facility] Comment on above: Performed By: #### 2 550292, 8216724, [id number] #### [facility] [address] [place] [address] PAMG-1 Protein Internal Control Positive Normal Positive [facility] Comment on above: Performed By: #### 2 560300, 0947282, [id number] #### [facility] [address] [place] [address] Consent for Treatmenton 06-19 Consent for Treatment [id number] [id number]# 1.00CD:127 Normal [facility] Consent for Treatment [id number] [id number]# 1.00CD:127 Normal [facility] FFNon 07-07-2020 Fibronectin. Ql (Vag fld) Negative Normal [facility] Comment on above: Result Comment: In [place] , a positive result is associated with delivery in: -symptomatic women between 24-36 weeks, 6 days gestation -asymptomatic women between 22-30 weeks, 6 days gestation Manipulation of the cervix may lead to false positive results. Cervicovaginal specimens should be obtained prior to digital examination or manipulation of the cervix. Lubricants, soaps, disinfectants, or creams may interfere with absorption of the specimen by the applicator or with the antibody-antigen reaction. Performed By: #### 2 832414, 5353907, [id number] #### [facility] [address] [place] [address] UA With Cult Reflexon 2020 Bacteria LM Ql (Urine sed) 1+ /HPF Abnormal Trace [facility] Comment on above: Performed By: #### 2 600982, 7049751, [id number] #### [facility] [address] [place] [address] Bilirubin Ql (U) Negative Normal Negative [facility] Comment on above: Performed By: #### 2 067485, 7296264, [id number] #### [facility] [address] [place] [address] Clarity (U) CLEAR Normal Clear [facility] Comment on above: Performed By: #### 2 296424, 2637566, [id number] #### [facility] [address] [place] [address] Color (U) YELLOW Normal Yellow [facility] Comment on above: Performed By: #### 2 126449, 3040652, [id number] #### [facility] [address] [place] [address] Epithelial cells.squamous LM.HPF (Urine sed) [#/Area] /[HPF] Normal 0-2 [facility] Comment on above: Performed By: #### 2 882522, 1907490, [id number] #### [facility] [address] [place] [address] Glucose Test strip (U) [Mass/Vol] Negative Normal Negative [facility] Comment on above: Performed By: #### 2 755460, 1200815, [id number] #### [facility] [address] [place] [address] Hemoglobin Ql (U) 2+ Abnormal Negative [facility] Comment on above: Performed By: #### 2 864326, 4378779, [id number] #### [facility] [address] [place] [address] Ketones (U) [Mass/Vol] TRACE Abnormal Negative Fi [facility] Comment on above: Performed By: #### 2 616138, 9222098, [id number] #### [facility] [address] [place] [address] [place].plasma/[place].R BC (Bld) [Mass ratio] >30 Abnormal 0-3 [facility] Comment on above: Performed By: #### 2 703085, 0111030, [id number] #### [facility] [address] [place] [address] Mucus Ql (Urine sed) TRACE Normal Fish [facility] Comment on above: Performed By: #### 2 757196, 3878950, [id number] #### [facility] [address] [place] [address] Nitrite Ql (U) Negative Normal Negative [facility] Comment on above: Performed By: #### 2 014877, 0172378, [id number] #### [facility] [address] [place] [address] pH (U) 5.5 [pH] Invalid Interpretation Code 5.0-9.0 [facility] Comment on above: Performed By: #### 2 252482, 7299022, [id number] #### [facility] [address] [place] [address] Protein (U) [Mass/Vol] Negative Normal Negative [facility] Comment on above: Performed By: #### 2 559241, 4665598, [id number] #### [facility] [address] [place], [place] [address] Specific gravity (U) [Rel density] 1.025 Invalid Interpretation Code 1.005-1.030 [facility] Comment on above: Performed By: #### 2 616014, 1729077, [id number] #### [facility] [address] [place], [place] [address] Type of Urine collection method Clean Catch Normal [facility] Comment on above: Performed By: #### 2 387364, 7629637, [id number] #### [facility] [address] [place], [place] [address] Urobilinogen Qn (U) 0.2 {Henny'U}/dL Normal 0.0-1.0 [facility] Comment on above: Performed By: #### 2 185832, 5827648, [id number] #### [facility] [address] [place] [address] WBC Auto Ql (U) Negative Normal Negative [facility] Comment on above: Performed By: #### 2 649638, 5515735, [id number] #### [facility] [address] [place] [address] WBC LM.HPF (Urine sed) [#/Area] 0-5 Normal 0-5 [facility] Comment on above: Performed By: #### 2 761141, 4767760, [id number] #### [facility] [address] [place] [address] Ambulatory Clinical Summaryo n 07-06-2020 Ambulatory Clinical Summary {[id number]}CD:[id number] Normal [facility] Obstetrics Office/Clinic Not jasmine 07-06-2020 Obstetrics Office/Clinic Note Chief Complaint OB visit 34 weeks 6 days. Obstetric History History (1,0,0,2) # 1 Baby 1 Outcome Date: 2008 Outcome: Live Outcome or Result: Vaginal Gender: Female Gest Age: 41 weeks Wt: 3232 g [place] [facility] [place] [facility] Labor: -- Child's Name: -- Baby's Father: -- # 2 Baby 1 Outcome Date: 05/26/2013 Outcome: Live Outcome or Result: Vaginal Gender: Male Gest Age: 39 weeks 3 days Wt: 3390 g Hospital: -- [facility] Labor: 5 hr 55 min Child's Name: -- Baby's Father: -- Complications: None Complications: None EGA and CLIFFORD Gestational Age (EGA) and CLIFFORD * Note: EGA calculated as of 07/06/2020 CLIFFORD: 08/11/2020 EGA*: 34 weeks 6 days Type: Authoritative Method Date: 02/16/2020 Method: Ultrasound (02/16/2020) Confirmation: Confirmed Description: -- Comments: -- Entered by: Caroline HILARIO on 04/21/2020 Other CLIFFORD Calculations for this : No additional CLIFFORD calculations have been recorded for this History of Present Illness 30 y/o here for visit. Active movement. She has been having some ctx. They last 10-20 seconds, gets them about 5 times per day. Yesterday and today she could feel it in her thighs lasting about 20 seconds. She feels she is getting them once every 2 hours and very random. It is random when she develops heartburn, not taking the pepcid daily just PRN. Review of Systems Constitutional: No fever, No chills, No headache. Skin: No rash, No lesions. Respiratory: No shortness of breath. Cardiovascular: Yes peripheral edema. Gastrointestinal: No nausea, No vomiting, Yesheartburn, No diarrhea, No constipation. Genitourinary: No dysuria. Gynecology: No abnormal vaginal discharge, No vaginal itching/burning, No bleeding, No leaking of fluid. Physical Exam Vitals & Measurements BP: 118/78 HT: 157.0 cm HT: 157 cm WT: 88.6 kg WT: 88.6 kg BMI: 35.94 Examinations Glucose Urine Dipstick: Negative Protein Urine Dipstick: Negative Weight Measured: 88.6 kg Systolic Blood Pressure: 118 mmHg Diastolic Blood Pressure: 78 mmHg D-EGA at Documented Date, Time: 34W 6D Fundal Height: 35 cm Labor Signs/Symptoms: Contractions Baby A - Activity: Present per patient Baby A - FHR: 128 bpm Next Appointment: 2 week(s) Antepartum Comment: growth next time. PTL precuations. General Exam: Constitutional: alert, no acute distress, well hydrated, well developed, well nourished. Skin: normal color, no rashes, no lesions, no unusual bruising. Head: atraumatic, normocephalic. Eyes: EOM intact, no nystagmus, no icterus. Ears: no external deformities, gross hearing intact. Respiratory: no respiratory distress. Abdomen: gravid, nontender. Extremities: no deformities, no edema. Psych: oriented to all spheres, affect and mood appropriate, normal interaction, good eye contact. Assessment/Plan 1. Depression during (O99.340: Other mental disorders complicating , unspecified trimester) Stable. Ordered: Office Visit Level 3 Est 30007 TH 2. Obesity complicating , third trimester (O99.213: Obesity complicating , third trimester) Doing well managing weight gain. Ordered: Office Visit Level 3 Est 19350 TH 3. Supervision of high risk in third trimester (O09.93: Supervision of high risk , unspecified, third trimester) Follow up in 2 weeks for appt and growth US. PTL precautions until 37 wks. Ordered: Office Visit Level 3 Est 19480 TH 4. 34 weeks gestation of (Z3A.34: 34 weeks gestation of ) Ordered: Office Visit Level 3 Est 11686 TH Follow-up With When Contact Information [facility] In [address] [place] [address]- Additional Instructions: Problem List/Past Medical History Ongoing Depression during Obesity complicating , third trimester Ovarian cyst Supervision of high risk in third trimester Historical Medications Pepcid 20 mg Tab, 20 mg= 1 tab(s), Oral, BID, 2 refills Multivitamins, 1 tab(s), Oral, Daily Allergies No Known Allergies Social History Alcohol - Denies Alcohol Use, 11/21/2009 DENIES, 04/14/2020 Substance Abuse - Denies Substance Abuse, 11/21/2009 DENIES, 04/14/2020 Tobacco - Denies Tobacco Use, 11/21/2009 Never (less than 100 in lifetime) Tobacco Use:. Never Smokeless Tobacco Use:., 07/06/2020 Family History Diabetes mellitus type 2: Mother and Father. Hypertension: Mother and Father. Immunizations Vaccine Date Status diphtheria/pertussis, acel/tetanus adult 06/23/2020 Given Lab Results Ambulatory Point of Care Results Glucose Urine Dipstick: Negative (07/06/20 14:59:00) Protein Urine Dipstick: Negative (07/06/20 14:59:00) Normal [facility] Comment on above: Result Comment: Elec tronically Signed By: Caroline HILARIO\.rosey\Date and Time Signed: 07/06/20 15:42 EDT Patient Educationon 07-07-19 21 Patient Education How a Baby Grows During begins when the male's sperm enters the female's egg. This happens in the fallopian tube and is called fertilization. The fertilized egg is called an embryo until it reaches 9 weeks from the time of fertilization. From 9 weeks until it is called a fetus. The fertilized egg moves down the tube into the uterus and attaches to the inside lining of the uterus. The woman is responsible for the growth of the embryo/fetus by supplying nourishment and oxygen through the blood stream and placenta to the developing fetus. The uterus becomes larger and pops out from the abdomen more and more as the fetus develops and grows. A normal lasts 280 days, with a range of 259 to 294 days, or 40 weeks. The is divided up into three trimesters: ? First trimester - 0 to 13 weeks. ? Second trimester - 14 to 27 weeks. ? Third trimester - 28 to 40 weeks. The day your baby is supposed to be born is called estimated date of confinement (EDC) or estimated date of delivery (CLIFFORD). GROWTH OF THE BABY MONTH BY MONTH 1. First Month: The fertilized egg attaches to the inside of the uterus and certain cells will form the placenta and others will develop into the fetus. The arms, legs, brain, spinal cord, lungs, and heart begin to develop. At the end of the first month the heart begins to beat. The embryo weighs less than an ounce and is ? inch long. 2. Second Month: The bones can be seen, the inner ear, eye lids, hands and feet form and genitals develop. By the end of 8 weeks, all of the major organs are developing. The fetus now weighs less than an ounce and is one inch (2.54 cm) long. 3. Third Month: Teeth buds appear, all the internal organs are forming, bones and muscles begin to grow, the spine can flex and the skin is transparent. Finger and toe nails begin to form, the hands develop faster than the feet and the arms are longer than the legs at this point. The fetus weighs a little more than an ounce (0.03 kg) and is 3? inches (8.89cm) long. 4. Fourth Month: The placenta is completely formed. The external sex organs, neck, outer ear, eyebrows, eyelids and fingernails are formed. The fetus can hear, swallow, flex its arms and legs and the kidney begins to produce urine. The skin is covered with a white waxy coating (vernix ) and very thin hair (lanugo ) is present. The fetus weighs 5 ounces (0.14kg) and is 6 to 7 inches (16.51cm) long. 5. Fifth Month: The fetus moves around more and can be felt for the first time (called quickening ), sleeps and wakes up at times, may begin to suck its finger and the nails grow to the end of the fingers. The gallbladder is now functioning and helps to digest the nutrients, eggs are formed in the female and the testicles begin to drop down from the abdomen to the scrotum in the male. The fetus weighs ? to 1 pound (0.45kg) and is 10 inches (25.4cm) long. 6. Sixth Month: The lungs are formed but the fetus does not breath yet. The eyes open, the brain develops more quickly at this time, one can detect finger and toe prints and thicker hair grows. The fetus weighs 1 to 1? pounds (0.68kg) and is 12 inches (30.48cm) long. 7. Seventh Month: The fetus can hear and respond to sounds, kicks and stretches and can sense changes in light. The fetus weighs 2 to 2? pounds (1.13kg) and is 14 inches (35.56cm) long. 8. Eight Month: All organs and body systems are fully developed and functioning. The bones get harder, taste buds develop and can taste sweet and sour flavors and the fetus may hiccup now. Different parts of the brain are developing and the skull remains soft for the brain to grow. The fetus weighs 5 pounds (2.27kg) and is 18 inches (45.75cm) long. 9. Ninth Month: The fetus gains about a half a pound a week, the lungs are fully developed, patterns of sleep develop and the head moves down into the bottom of the uterus called vertex. If the buttocks moves into the bottom of the uterus, it is called a breech. The fetus weighs 6 to 9 pounds (2.72 to 4.08kg) and is 20 inches (50.8cm) long. You should be informed about your , yourself and how the baby is developing as much as possible. Being informed helps you to enjoy this experience. It also gives you the sense to feel if something is not going right and when to ask questions. Talk to your caregiver when you have questions about your baby or your own body. Document Released: 07/23/2008 Document Revised: 04/28/2012 Document Reviewed: 07/23/2008 ExitCare? Patient Information ?2013 [employer] [facility]. [facility] Follow Upon Follow Up Exam Date/Time: 06/23/2020 15:12 EDT Reason for Exam: Size - measuring standard growth/amniotic fluid volume;growth q4w - anatomy completed with MFM Report IMPRESSION: SINGLE LIVE INTRAUTERINE CORRESPONDING TO APPROXIMATELY COMPOSITE ULTRASOUND AGE: 33 WEEKS, 3 DAYS. NO GROSS ABNORMALITY IDENTIFIED. US Follow Up: 06/23/2020 2:35 PM CLINICAL HISTORY: Size - measuring standard growth/amniotic fluid volume, growth q4w - anatomy completed with MFM. . LMP: 11/05/2019 CLIFFORD: 08/11/2020 Gestational Age by LMP: 33 weeks, 0 days CLIFFORD (AUA): 08/08/2020 COMPOSITE ULTRASOUND AGE: 33 WEEKS, 3 DAY COMPARISON: 01/07/2020. Transabdominal ultrasound of the gravid uterus was performed. FINDINGS: A single live intrauterine is noted in cephalic position. cardiac activity is measured at 149 bpm. PLACENTA: A grade 2-appearing placenta is posterior without evidence of placenta previa. The amniotic fluid volume appears within normal limits for gestation. Amniotic Fluid Index: 14.6 cm MEASUREMENTS: The following measurements were obtained: * Biparietal Diameter: 8.4 cm with the Growth Percentile Rank: 64.0 Percent * Head Circumference: 30.6 cm with the Growth Percentile Rank: 41.0 Percent * Abdominal Circumference: 29.2 cm with the Growth Percentile Rank: 57.0 Percent * Femur Length: 6.2 cm with the Growth Percentile Rank: 18.0 Percent * which corresponds to COMPOSITE ULTRASOUND AGE: 33 WEEKS, 3 DAYS. ESTIMATED WEIGHT: Report Estimated Weight: 2100.7 (grams) Estimated Weight: 4lbs 10.1ozs (lbs/oz) EFW growth percentile rank: 41 (Percent) EFW AUA Percentile: 29.8 (Percent) EFW LMP Percentile: 41.0 (Percent) A full anatomy survey was not performed. FINAL REPORT Dictated: 06/27/2020 7:45 am Yousif Toribio M.D. Signed (Electronic Signature): 06/27/2020 7:45 am Signed by: Yousif Toribio M.D. Transcribed by: [facility] Technologist: ADEN Technical Comments CLIFFORD 08/11/20 CLIFFORD Obtained CLIFFORD by US GA 33w 0d History 3 Para 2 Transabdominal Ultrasound Performed Placenta Location posterior Placenta Grade 1 2 Positioning Vertex Amniotic Fluid Volume Normal Normal [facility] [place]enton 06-24-2020 Consent [id number] Normal [facility] Ambulatory Clinical Summaryo n 06-23-2020 Ambulatory Clinical Summary {[id number] Normal [facility] Ambulatory Clinical Summary {[id number] Normal [facility] Obstetrics Office/Clinic Not jasmine 06-23-2020 Obstetrics Office/Clinic Note Chief Complaint OB 33w, baby moving, swelling in feet. Having heartburn for about two weeks. Obstetric History History (1,0,0,2) # 1 Baby 1 Outcome Date: 2008 Outcome: Live Outcome or Result: Vaginal Gender: Female Gest Age: 41 weeks Wt: 3232 g [place] [facility] [place]: -- Child's Name: -- Baby's Father: -- # 2 Baby 1 Outcome Date: 05/26/2013 Outcome: Live Outcome or Result: Vaginal Gender: Male Gest Age: 39 weeks 3 days Wt: 3390 g Hospital: -- [facility] Labor: 5 hr 55 min Child's Name: -- Baby's Father: -- Complications: None Complications: None EGA and CLIFFORD Gestational Age (EGA) and CLIFFORD * Note: EGA calculated as of 06/23/2020 CLIFFORD: 08/11/2020 EGA*: 33 weeks Type: Authoritative Method Date: 02/16/2020 Method: Ultrasound (02/16/2020) Confirmation: Confirmed Description: -- Comments: -- Entered by: Caroline HILARIO on 04/21/2020 Other CLIFFORD Calculations for this : No additional CLIFFORD calculations have been recorded for this History of Present Illness ob visit Review of Systems Constitutional: No fever, No chills, No sweats, No weakness. Respiratory: No shortness of breath, No cough. Cardiovascular: No chest pain, Noperipheral edema. Physical Exam Vitals & Measurements BP: 120/76 HT: 157.0 cm HT: 157 cm WT: 86.7 kg WT: 86.7 kg BMI: 35.17 Examinations Glucose Urine Dipstick: Negative Protein Urine Dipstick: Negative Weight Measured: 86.7 kg Systolic Blood Pressure: 120 mmHg Diastolic Blood Pressure: 76 mmHg D-EGA at Documented Date, Time: 33 weeks Fundal Height: 34.5 cm Labor Signs/Symptoms: Contractions Baby A - Activity: Present per patient Baby A - FHR: 149 bpm Next Appointment: 2 week(s) Antepartum Comment: GERD bad. Rx for pepcid. EFW 41%, ALEXY 14.6cm, vtx. TdaP today. General Exam: Constitutional: alert, no acute distress, well hydrated, well developed, well nourished. Skin: normal color, no rashes, no lesions, no unusual bruising. Head: atraumatic, normocephalic. Eyes: EOM intact, no nystagmus, no icterus. Ears: no external deformities, gross hearing intact. Respiratory: no respiratory distress. Abdomen: gravid, nontender. Extremities: no deformities, no edema. Psych: oriented to all spheres, affect and mood appropriate, normal interaction, good eye contact. Assessment/Plan RTC 2 wks. Mood stable. TdaP given today. Desires IOL on 08/04 - scheduled. 1. Supervision of high risk in third trimester (O09.93: Supervision of high risk , unspecified, third trimester) Ordered: Office Visit Level 4 Est 54289 NC 2. Obesity complicating , third trimester (O99.213: Obesity complicating , third trimester) Ordered: Office Visit Level 4 Est 38527 NC 3. Depression during (O99.340: Other mental disorders complicating , unspecified trimester) Ordered: Office Visit Level 4 Est 17106 NC 4. 33 weeks gestation of (Z3A.33: 33 weeks gestation of ) Ordered: Office Visit Level 4 Est 89882 NC Encounter for immunization (Z23: Encounter for immunization) Ordered: tetanus/diphtheria/pe rtussis, acel (Tdap), 0.5 mL, IntraMuscular, Once, Stop date 06/23/20 16:00:00 EDT, Routine, Start date 06/23/20 16:00:00 EDT EACH ADD'L Surgical Aides Teacher Admin Component 37416 EACH ADD'L Surgical Aides Teacher Admin Component 71340 FIRST VACCINE Surgical Aides Teacher Admin Charge [id number] Orders: famotidine, 20 mg = 1 tab(s), Oral, BID, # 60 tab(s), Refills(s) 2, Pharmacy: [id number], 157, cm, 06/23/20 15:10:00 EDT, Height/Length Dosing, 86.7, kg, 06/23/20 15:10:00 EDT, Weight Dosing Follow-up With When Contact Information Funmilayo ESCOBEDO MD In [address] [place] [address]- Additional Instructions: Problem List/Past Medical History Ongoing Depression during Obesity complicating , third trimester Ovarian cyst Supervision of high risk in third trimester Historical Medications Pepcid 20 mg Tab, 20 mg= 1 tab(s), Oral, BID, 2 refills Multivitamins, 1 tab(s), Oral, Daily Allergies No Known Allergies Social History Alcohol - Denies Alcohol Use, 11/21/2009 DENIES, 04/14/2020 Substance Abuse - Denies Substance Abuse, 11/21/2009 DENIES, 04/14/2020 Tobacco - Denies Tobacco Use, 11/21/2009 Never (less than 100 in lifetime) Tobacco Use:. Never Smokeless Tobacco Use:., 05/11/2020 Family History Diabetes mellitus type 2: Mother and Father. Hypertension: Mother and Father. Immunizations Vaccine Date Status diphtheria/pertussis, acel/tetanus adult 06/23/2020 Given Lab Results Ambulatory Point of Care Results Glucose Urine Dipstick: Negative (06/23/20 15:09:00) Protein Urine Dipstick: Negative (06/23/20 15:09:00) Normal [facility] Comment on above: Result Comment: Elec tronically Signed By: Funmilayo ESCOBEDO MD\.br\Date and Time Signed: 06/23/20 15:40 EDT Patient Educationon 06-24-19 Patient Education Obstetrics and Gynecology Abdominal Pain During Abdominal pain is common during , and has many possible causes. Some causes are more serious than others, and sometimes the cause is not known. Abdominal pain can be a sign that labor is starting. It can also be caused by normal growth and stretching of muscles and ligaments during . Always tell your health care provider if you have any abdominal pain. Follow these instructions at home: ? Do not have sex or put anything in your vagina until your pain goes away completely. ? Get plenty of rest until your pain improves. ? Drink enough fluid to keep your urine pale yellow. ? Take pvxz-twp-hmvflle and prescription medicines only as told by your health care provider. ? Keep all follow-up visits as told by your health care provider. This is important. Contact a health care provider if: ? Your pain continues or gets worse after resting. ? You have lower abdominal pain that: ? Comes and goes at regular intervals. ? Spreads to your back. ? Is similar to menstrual cramps. ? You have pain or burning when you urinate. Get help right away if: ? You have a fever or chills. ? You have vaginal bleeding. ? You are leaking fluid from your vagina. ? You are passing tissue from your vagina. ? You have vomiting or diarrhea that lasts for more than 24 hours. ? Your baby is moving less than usual. ? You feel very weak or faint. ? You have shortness of breath. ? You develop severe pain in your upper abdomen. Summary ? Abdominal pain is common during , and has many possible causes. ? If you experience abdominal pain during , tell your health care provider right away. ? Follow your health care provider's home care instructions and keep all follow-up visits as directed. This information is not intended to replace advice given to you by your health care provider. Make sure you discuss any questions you have with your health care provider. Document Released: 02/04/2006 Document Revised: 05/25/2019 Document Reviewed: 05/09/2017 [employer] Patient Education ? 2019 [employer] First Stage of Labor Labor is your body's natural process of moving your baby and other structures, including the placenta and umbilical cord, out of your uterus. There are three stages of labor. How long each stage lasts is different for every woman. But certain events happen during each stage that are the same for everyone. ? The first stage starts when true labor begins. This stage ends when your cervix, which is the opening from your uterus into your vagina, is completely open (dilated). ? The second stage begins when your cervix is fully dilated and you start pushing. This stage ends when your baby is born. ? The third stage is the delivery of the organ that nourished your baby during (placenta). First stage of labor As your due date gets closer, you may start to notice certain physical changes that mean labor is going to start soon. You may feel that your baby has dropped lower into your pelvis. You may experience irregular, often painless, contractions that go away when you walk around or lie down ([place] Mahmood contractions). This is also called false labor. The first stage of labor begins when you start having contractions that come at regular (evenly spaced) intervals and your cervix starts to get thinner and wider in preparation for your baby to pass through. care providers measure the dilation of your cervix in centimeters (cm). One centimeter is a little less than one-half of an inch. The first stage ends when your cervix is dilated to 10 cm. The first stage of labor is divided into three phases: ? Early phase. ? Active phase. ? Transitional phase. The length of the first stage of labor varies. It may be longer if this is your first . You may spend most of this stage at home trying to relax and stay comfortable. How does this affect me? During the first stage of labor, you will move through three phases. What happens in the early phase? ? You will start to have regular contractions that last 30?60 seconds. Contractions may come every 5?20 minutes. Keep track of your contractions and call your care provider. ? Your water may break during this phase. ? You may notice a clear or slightly bloody discharge of mucus (mucus plug) from your vagina. ? Your cervix will dilate to 3?6 cm. What happens in the active phase? The active phase usually lasts 3?5 hours. You may go to the hospital or center around this time. During the active phase: ? Your contractions will become stronger, longer, and more uncomfortable. ? Your contractions may last 45?90 seconds and come every 3?5 minutes. ? You may feel lower back pain. ? Your care providers may examine your cervix and feel your belly to find the position of your baby. ? You may have a monitor strap (more content not included)... Normal [facility] Coding Summary.on 06-12-2020 Coding Summary. [id number] G h0bWw+PGhlYWQ+NM3BNQQ zX21obGZjaV6NI6kHSV4M PUPYRNDBIO7IRX2bjEN9S UzdA1HzyjOv EsijgQQpKJ00CKk6NOS5i NhlYJebsT6mgQWpD3o1Is AuJI88vB29IPngROUjIsI 3LjZpbjsgbWFy N2hlUjYcoALgWhv+PHRhY mxlIHdpZHRoPScxMDAlJy MzaWzxHU7wFu4pJDJmWME vbGxhcHNlOiBj i4apFUXtBUbpBQ8umOtoP 9FopVJ5PCPpr2b0Dl04yL I+HIIvPDJ9iNppZZtbc07 2IjMto2cvAOE7 tYNfLYdzANP7Y26po0G9H WSrUSJhOHJ7lYU6fC3uwE qckxjdQ5IlhGGvKbQ5QAY 0fLRzqY2asFvj odykzL8fKlj+H47NIM9EJ RAMIM8BLkg1T7PyCroixP I+PE42AMMsUT56kVQabOU be6krkZp1RhPd NIKbJJZ7nMsjMPayn1OjP RQiC88haETuw4K9ZVVtaE cnyYXePzHzdWF9tO1fWTp ogjbvl4ctjyov Dwxkz9ubip86xU42U76dG JahHRVyTTO6QVVtKSCniB iqdk3khG2eIi5+RFjfr9v yg6xcqWu7LkRw XDZxlfIbrHieIIM4u2SpT i25V2IciNbwt2TzAnq2oj 59xFNwq2A5nPR6RGyzYVX asL9oPXlsMzO9 ZEJyUlAkpZ39pTRePToqD z4wgNcslEktGQ8rWWKzlw faHWAldV4iISLbxMTlfTv rOQ0mKBWdqbzn h755WaQyLAO8WECrmUSvB 8HhjY0vYiPqQJJfPISmF8 KntDDaVZjrL534TNomXjF 5TQMzsqTsH6Dt PEOpgAcdXlG5h1N3Kg5Xz 0DmpwfjSLF0HMgfUYY9Xp J8TcIeRbP8D6SkHuv1YBV brOhuEG6wB2Rf HOPlmokxmsikhNJ5PWOxA TPizE56qLDxOLkpMy6gm1 Y5x705XFCkNEXuaL45Ow6 udDogMTBwdCBU tL9uvwwpt6fypwtaFjAzD EUrZOf0TCr1JIKhaUhiRx VvVKK1AyM2MYG7zHMqvH8 azEnveodjuM8b Oyc+T94xsX1eTPN6YOY7b lzkRZPzpdNxPO00NA45L5 RyPjwvdGFibGU+PGRpdiB kiMmlSU5wGmBp k6sms3CpZPpzZ5TvVDQnP LeoNgh9OOMlLTO0bNY8mO 3kIRZvZQkcw3B2qYW2P6J ncuJzss7pe3ve DPEgWTdaX47qxOAvq9A6H OBumPZ3KZTgtDmsDfUouP 93Oyc+YIMdjRtac6VoGdx qh6oau4yawEp7 TiLyFHAwpxZnbBzzHVS9r 0EdMq43A77jITclHLZpNZ GuMHHkHEDsrNmtjr8yeJ3 wIi8+PGNvbCB3 sMC8aQ1aXYBdZyG0DRlfX 737MiSzxQFqNrzks7wwv1 gssQj7JlEkLBZabsRppQo qSSQ4l9VcXs16 B59hGJyaYGDbAINjQKTaN LMqhVlafn8hrM7cVw1+PC 9so8oqad21sL13cIM+PHR sHVU1pRzvEJdt FSDnlC7gROigGbE7QXLrR iUlkA53rRNoHFtnTk4qlO wbgDraEK1hDVHrfzmhc70 5RaLhs2pnWQCd eQTtHJzdKLL9S24ps8A1X QZmJPUwGEC0lNO3iB6bfR lnbjogbGVmdDsgdmVydGl eLHdsQJorV023 IHRvcDsnPlBhdGllbnQgT nTfOEi0X9KcUda8YHVamL laZC3gzWIcTJjmMk0bvOi oiDaqEG2wKOSv dwkna602OmNwk1ptXMIfo BRtLAzxMBF7R26og5C0IN OzJKHbSQB8yVQ8aR5biZb nbjogbGVmdDsg tvSilJpiYJooWNluW303C HRvcDsnPkJpcnRoIERhdG V4LM65MA84dADno5Z4dSC 5X5ZlIALehfgs iilzoPO5THAtBVZqkN49N r1ruTslVe8uPHQaLPC8GM PbhIHxY9DdjQ0nCfIhLXS sJVHyY7TimTYn CYkfL426YUagJjC4YOSqu kOlF3BcYDWdtYbrZuB2k2 Y7Xn2CW3K6RH67FM37fZE oo8W7lAM8L0Go NWLmwuujjwbltSR6TZCqA POiqZ40Hn2wfTmbPt7iML FnIPA0SCWqbQDdE5HkuP5 yOiAjMDAwMDAw H4WcoNQfHHflE724BXrlY wW4CAIuebGpX4AeEBQfzP itPkW8s1A9Ac1LZSq0DZ3 5MD92gJLiu6U3 hDR7Z9IgLTLamupxhwloc IB7TXJoSXBmaW00Cf5iwW fvJg8yGXElNWL7ILFmnFX xK5NelL4aFmKh XKPcKLHgD5TdzPJkGIlhD 703VEwjFsS5AZZwntPcC8 ZsJSDlzLcrHoA7h2J7Ty8 OYYAmGI48ZJS4 pTM2NC05GN88U5DjSlupe GFibGU+PHRhYmxlIHdpZH RoPScxMDAlJyBzdHlsZT0 xSm9uJDKtPBQc oQpfaMYwSjWfj6rwGKClD TmdBK8mmXqmN1QqbJF1ER Chk4e0Os95J43tC0NgxSN +HDKniIQ7mFC3 cB3nImIpGkD9RVjxQ833S zPdaFTpOnawc8qkh9uqwA b3QfN8GHXmadHnjNocGHT 1z0JjFc25B42b IHdpZHRoPSIxNSUiIHZhb Fgwts0ziS8xKg7+PGNvbC O3tVW6bG0hRfYhUyL2MOd oR452IbVoiGSe Auadj9qrt0onbPm3AiGjL UDhogApyDnoNTY1w8HgIo 14R1WqvNaaw4XlSjl0uv6 7oPKfa7A9dNP5 Q0BcGYCqmxrksMRlbSflS T9bOLAjejtgRIZglE5hQD NfU0e3WcIePnX9XEfrO0I kfyP7WQZrvFBh WRoxRPH9T39nt8M1FUTmY DDfNXV0xYD0zP8kbWikpc ogbGVmdDsgdmVydGljYWw zXLwjA200YXRv oYkoOIPgbX7pMMCnnWWdb NymGZ4eSBDgrywmMvQUAe gIMg5nMUIVGdUHT0TaMNf vdGQ+PHRkIHN0 yHkhPSkoIRLgrK7fXLNmU 7v7IjOnUfR2LCybL1RxPZ EwkluuCy15iX8kAbXrApQ 2NCatS8KhwhS8 SDLkzQQaWWmkDNT2I31zo 8F8IHNlFFQtUSJ7kHJ5tH 1hbGlnbjogbGVmdDsgdmV ydGljYWwtYWxp U900IJAiaGoyOgT0YrRiO mR3TDY7B2IbBrp7SPMpkD fjNY5amKMgJXqmOs4jfEq meQlaJA5uUPXp phnaNQBgmO3mLAJdnIVjc PliFP7dHZDprzshu013Bk RgPPX1TBHgqYLhQ3ExuD9 yOiAjMDAwMDAw A1VjdYRxGZppC086UVauV gA6VTWvnpQxD1MzCSGxaF fhWwP4b2Z1Ko9sBCJRKXQ yczwvdGQ+PHRk KCR0gBnhIZbhMCWmuM4zV ODcM5h7CcFeZjH7BSqrG4 SrULHkfvqaUz45dU9jZaF jCfG9UKlqH0Uu hwI8JRDmlSHpPVkfBFN8B 00te0Y4WRZaZNDbMGH1nS R6lY3vlKoexdqrvPXyhFq gdmVydGljYWwt YEwrR018ISYroFvgDmFuu WFsZTwvdGQ+XVAlRWW4oN qjJOxyGWCvvR0kIGRnC8a 3TbXiEnD3DIiu V3JnCPJbdwhuSu47nF5lL nXaOlO3HInlB1XguzG0NB KrcJVeDKraCLW8A70bj6D 8MUJpPYUwMPD2 rGR6jD1ngPqwlkhikJYtg DsgdmVydGljYWwtYWxpZ2 63QNZirUjyBb82oPGpsEw ccjO3Z5TyCfbo dHI+WK17LBWuYT56tWIvt QNwo7tywVm1KmQiALSsSQ B6oOukIFrmf3ZxRUEyK28 mcJPyh7F2RLQw vIqttNReVlLgwNT3cM1fQ Mkysbaih2ebsldoZweln0 wvaa40oX84N22eIWgtGYR oPSIzMCUiIHZh vXndvs7siE5hEs2+PGNvb LV4lDB5kM5mZxMzRwY8MH hrT341PfBvlRHgGfqmz9m vu3bbmAi7UzNp BPJppkKxrQsyPFS8f2XrM y20P90pEGavUXGsUQIhVX TvULIiyDebmp0bqV2vFc3 +GH7ji0taql84 zG72pFK+GAUzJFP9aZplJ QyfNVXrxF9kRPdgDrW5IO QdQpCbkA90oSXiEUokNw2 pqOcmoNalJB4k JPLozjplf021FpFez0flU KHloRXkLPecEOO8J76ms2 A9EGJbTOWuNNH0bUP2nC2 hbGlnbjogbGVm dDsgdmVydGljYWwtYWxpZ 948KGIwfBndGyHtnUIwO4 ipinIBOW4tSozrhQY+PHR aJRG6jJhoOGjt FSVheW5lVQBtJ0m4NgOsK uO0QLwmL1JqtvR0DROhxV GrPNYelENLvI6momjdl2j vcjogIzAwMDAw JPh6TRj0KQIpoLqbJiWyB HG5AnO0JPL7iOConE7ykW taxynguC2mWvc+RklOOjw vdGQ+PHRkIHN0 hIjaAWdsZLTuoD2fUWWwV 8c1MsWrWoM0KPatI3Tbof E4ZREcjLPqYZPtjTSUoJ1 hmqsyi8gtephr PkXnFYEjBOy1MDz9ZZEwh XlvQcSyNDR9MiN4XEX9fF IetL1arSdomzxtuH3iVlc +TVJOOjwvdGQ+ AJAfKYA4mWgsNLkmQRNmm W3hFNHgC9s4DhAfIsW4KD blE8MlmxP2TORbiQFbHAU wdEIFbA6omhoj k4jsetnuGeRlDGEgMHd2O Tm4NEBeyOtrUkEkSXP6Su V2LTY7lHCgtK1iiQwywen sjM9wRal+UGF5 IBY2ZW58KP04Q7EwTbnnu GFibGU+PHRhYmxlIHdpZH RoPScxMDAlJyBzdHlsZT0 iEb4rWMItZYRr bGxh (more content not included)... Normal [facility] Coding Summary.on 06-09-2020 Coding Summary. CD:[id number] G h0bWw+PGhlYWQ+HF4KCGI vO29bpMUfoH2AF8cYBC6E BTFXUQMXFT5GEJ8ycYJ6H MuyD1UrvbFi RjrqqJMjOE58AFz2WOS4w PqoDEkapS5kxZHiS8u6Ic ZfRA82jK45NXbyGMWdMeQ 3LjZpbjsgbWFy B4caTbTsbHBjJcp+PHRhY mxlIHdpZHRoPScxMDAlJy OljHwdZO9oSi9fBCOoIYQ vbGxhcHNlOiBj k8ywFOUkSVlcWA0rsGtqF 4IwkOL3YTYel6j3Gw57sN I+TFUqFYU3mBhnDKcsa53 7KcOvs9kkIIE8 bGWiZTlzJAO0K64yc1D6A HFiVHCiNCR7lMS3sL5jwX dydeckI6FneYLcKmY2KWY 5yCGxdO4fgGdz iusbgV2yQby+V12BEQ2KR AUFBE7GGwh0A3SyAmlimY I+LN60WLAxTG23kVVhiET uu2nfkTp0GzGu YIKtBSX5fMsqAXtdm5SzW MHpT55mkBEvw8S0MWCmhW joyQUyPtNxcMG6fF7jMNa hvjjtf3chwwyt Slaqi2wmnv64kZ86I06nN CxjOBCrWMU1RANtXQXyaC rynj3yaQ2yDg9+JZzmn7v dr7vcsUj4GnQn JLFstkQhlNfpLBB8d1XgN z62B6TleEwag2YiGpg0oe 66wYQgo0D8xRJ3QBfdBYH ldR1aXIytWuL4 HGRdKzIhsY21iDSlOFgpS p8hkMpfiUgyLZ2sEGUuva enQPElcL9pQJEifROywMu iTM1uMKOsakuh w629IqXvSLS2CTIodTUoE 2LuaT4mLpCgKJRaNYImY0 MxqRIqGYfvC177AUfzHuM 4VBAtanTgK2Gh GMQioTdzXwZ1x2H4Df9Ja 4WyfzheSXR1MHriGIX2Ip BhPkUwAkE8C5HtOps7EXE joWfgLT5rJ6Mi IQNtrmbqgrfisCY2WNSkT SHgyF86cFHgTMgvQv7dj1 D5n519HVQnQETlcL47Gp8 udDogMTBwdCBU tN5gpbaru9sepjnyMgTqA HXsLCc0XNi2VDXjcGhrSf NaXZS9HrX2IVD4dDJyjA2 shHuzcrtueP6d Oyc+A52jxV2vQUJ6RFZ2h jsxQYMycfJmBK41XJ49X7 RyPjwvdGFibGU+PGRpdiB agAmaTO4yOcVd l9xow0BfELxlM2EyPTUcN RebBvk6LNMhCAG3bKS2xF 5kRWVxYJdxz2W4uJS1O5U ibfPwwh5mt1pw KJXmKLbbI81jbLSyt9U9P LOvfLS1DHXsjSndHqEgcJ 93Oyc+KFLemBbzl2RkFnr zf2zsz0yrqSn0 AfWiNEKyzxXmtXqfLHM1p 5QiMe82U77wEYwhAZDgCQ GmKVNiPWHhiIrlhd0pnY5 wIi8+PGNvbCB3 eNC5eO5lBLUaEoA1YAgpG 358ZrUgeYLxRitck0qzn1 huiBs2VgHtMJWhmbGugBu vMKE4w1GsZg10 L43nGCghCCAbBXWfBBOrK PKbeWcfkf9fzM2fTq9+PC 4ry7czwt69dI32kEX+PHR cXFN5mWrsFAqb IOJwmU4zAKxjOlL0KOOuI fKiyA99lFSkXVurRw0esF zehWkjJT5wYREobzjda82 6FsXlj6jaSJYp mEOpVVrqVBJ4C12un3G6A MRmOKOcEQK6jPE4wG0chW lnbjogbGVmdDsgdmVydGl wMKcyEPeoD017 IHRvcDsnPlBhdGllbnQgT tRxNDf2K3XnHxd0NWMlyE byJB0iqVLcHSyvCo2ohPz rzLncNC5iOCRu rizlu986FtBad9rsTIUxx QBuXWldHEV7D12av5I7KR CtNMRvTIN3vNF5qZ3qmAe nbjogbGVmdDsg koQqpYmfRAijBBroU534I HRvcDsnPkJpcnRoIERhdG Y6CG15WJ48rFRyo6O5oLG 6X4TzEPUonitb lkmlmJD7RTAoAHFrqH04I h6rlLijHs7fXGAyBGB4JZ SnuRWcU8HpdY6yQwSbFLU aRYOxL7NrjYNw KCleN245MRddDtH7NTOyd yCtN9IgKTNjbLbmNbI6w9 M8Uu9NX5N1MS98DL15cUR ov5S8dBS3E0Fr HSElvphpmcrujRM6THTcX TObcG68Ya0ruKxpMk9dUI JgJMQ7RNAytEJpS6AlwE1 yOiAjMDAwMDAw F9KheFDqLVrjQ410WOciN vZ5NJRwocQvI3OpSVLfoJ mbUlO4x2D1Mt5ZYXw0UP5 7YG56jAWxv5P2 cKK6W9RiQWSxhueeonpyc OK2ZMCqUOPzbN17Tk9qdF odTo1yUBLwGEY8QDAxpXS iK9LxoK4yFqAm ITPqZDYdY0CkfYHjWTrdT 179ZHqjEdL8RNUewnTmX6 CmUOUavRvvQvT3k4O7Ni4 CINSgCH18AYC0 iKE5HH56IO03A7TqIkfqi GFibGU+PHRhYmxlIHdpZH RoPScxMDAlJyBzdHlsZT0 bKm5jKXVoCVHv fQpqoQQeAfQug0kvQZKuP KfcKX8lvUryK1PbfDX1MY Qdv5v8Pz83O68zB8PrySB +AUYafYU1lYZ4 fO0kGqGqJaL1QDwvZ229U cUayYOzLospd9udh6arcH a5VlN3YEVcerXkgAocFLB 5j1EnSy69B10c IHdpZHRoPSIxNSUiIHZhb Qjmkl4jqU2aPt0+PGNvbC X0hKM3hD2rWyWfPnA0JJr zH085MqUwtCIi Fkrhp8sbn7pgvYa0FcArX VVfeeIpnIcbMQD5v6GkXi 00M5RtcPtof2HaQoo6av7 0yYFib2Y7fNS6 B4QfDJLjzvspzNExiCksM P7gCFKptbzlGXHikO8kDE JuX2c6TlLqJkV9NOzuI4P achH8JCGddSIj XYchIRN4C86fs9L8ZHXmD APsAJL0pKJ5uW8xaKgdai ogbGVmdDsgdmVydGljYWw vJSzcM822CFUr aRmmLRYiqA8cUOUkzHSpo BbdMP6gGNJvqcckBkVADa xJCt7rUXLQFkLYK4GpYVr vdGQ+PHRkIHN0 gPagBVrjLRLjhX7hTJRcW 9x3KcQkSvV5BPhhP5TvCS MzmdcmEb64dF2qFhEoEzV 4SVdfO6EcuqX5 RSGhqUKrZBqbWLL8Q43rv 2D9CJEoLVPlTQZ9rHH9gT 1hbGlnbjogbGVmdDsgdmV ydGljYWwtYWxp C441EMBxmQcbJoX1DjRvM pA1OXV4D9MyVft8RKFumG kkNN5fjKSlKKmdDy4kwUf eaDgyIE6pYVNw ttsbYCNrnC6tIJLlrRGtz UgrPZ6yGQEgywmjx858Nt IhPGR5YWIbjVSpG1IcyO0 yOiAjMDAwMDAw M0VugNJkPDinO853ONenR oL9ZVQamkNxJ9DwKIZcvQ rvJiR3o4T2Te3eDWLHVDF yczwvdGQ+PHRk OZL9eYdgIXzdTIHhwA6yA JUyN8s8ZiRfVgS2QIvnF6 MlQSKqrbllIo42rC6wQuQ iBmT7VCctJ5Ae fmZ4MRLmrCEdZRymIHN0F 46wi3H2LFNlSEMvXFR5eY Q0eC9adOpajptkjLXtqTr gdmVydGljYWwt HEnvR987PNJlvJhtNhAln WFsZTwvdGQ+OLSxNDI8pO xsUKupUDFatD4pXZQoI4q 4XvKzArP7EAyp R1GuEXScqidiNo72aH1gH jGgOcQ8NEpaK1SaojL7YS IctMLkATgbGWH5X93qh3B 6QXBnQYGwCZI6 sCL5cE9isMzakgxfhKVvw DsgdmVydGljYWwtYWxpZ2 14BIGuwTeuAe74xOTjzVk jfmY3M9NnVftf dHI+FO64GMUdPI74dUAzd UCdd9jvzSm3AeUsDSLyIG W9pCjzHXgxd0YoHWCrN30 vaSLdy3S5PAOr qOgmaTOvAhAonUF9uV1vA Apnyancf8epexrmTzsqi1 ptxs51vP17R95sWBjmITM oPSIzMCUiIHZh kLadfo4joF6dFt8+PGNvb UL6jOE1pO8tMlJpOzH0SY vrS009KoDnpFZfErgsd2z du9hqmIw2PgSi ZPJzqhAkeYmoVKI4k7DqX w76Q23hZIoaELQpBJUqJA EaJWFxwUxzie3tmV9hTl3 +EX0dm7djtw51 aO55cAO+QCLnSIL8zYpzR GqoJGXpwH1qHRhvNdI2FK WxHlWxlQ83mJJlWZkhXy2 dsMmscHfwLW0n SFEjoglkm930OcDba7crB EZtqBHpPSleOIH8M35qd9 S3VYLwTSAjESR5bZL2oA5 hbGlnbjogbGVm dDsgdmVydGljYWwtYWxpZ 704ANBbqYytEwZksYPcQ2 yqgrWMRJ8lHubckAF+PHR xPGU2zFxwIVzb HDMcqI6kXZApR8y4SzBcO vS5VTxvU9IzjeT9BUOyfV WlDCYqqKQPaF5jdkqps3i vcjogIzAwMDAw CXr5UWq4WSBqsJqqRzLrB RZ9TvZ7URB0hRFmeU7yiE edumxpmD4kVgp+RklOOjw vdGQ+PHRkIHN0 fYfeOLwhBGLcaM4yLKUdC 2n1UyXbJhK3UWptZ2Xuqi S8YLOjuZVnJBVmrWIHvI9 cmdrsh0qqbjyr IiJzLTSgDKo3KHk8EIPhs KpiGrJmBSV8BvY8PBK6nZ HblA6diVnsmhmrwG3vJdc +TVJOOjwvdGQ+ VQTnZTW0jQpbLBnxFMRsm U5eQYXmN6f6HmNdXjC4LS cuY0CrsiJ9WELsrRUvNTN oeGPXcJ8rejei m6xnjcekYyYzNANgTTj9U Pu5WLUntTfqHrOgOHI5Af P6TAX7zMNteD2trMleeot eaI4lUuw+UGF5 BYD7PM57JL88Q1BcOzixl GFibGU+PHRhYmxlIHdpZH RoPScxMDAlJyBzdHlsZT0 xEh1eVHIuDXMt bGxh (more content not included)... Normal [facility] Capillary Glucose POCon 05-19 Glucose [Mass/Vol] 82 mg/dL Normal 55-99 [facility] Comment on above: Performed By: #### [id number] #### [facility] [address] [place] [address] Consent for Treatmenton 05-19 Consent for Treatment [phone] [id number] Normal [facility] Glu 1 Hron 06-03-2020 Glucose [Mass/Vol] 139 mg/dL Normal 55-180 The [facility] Comment on above: Result Comment: POSI TIVE SCREEN = 1 HR > 140 mg/dL Performed By: #### 2 [id number] #### [facility] [address] [place] [address] Glu 2 Hron 06-03-2020 Glucose [Mass/Vol] 123 mg/dL Normal 55-155 [facility] Comment on above: Result Comment: DIAB ETES FASTING >126 mg/dL or 2 HOUR >200 mg/dL Performed By: #### 2 [id number], [id number], [id number] #### [facility] [address] [place] [address] Glu 3 Hron 06-03-2020 Glucose [Mass/Vol] 101 mg/dL Normal 55-140 [facility] Comment on above: Result Comment: GEST ATIONAL DIABETES 2 of the following: FASTING >95 mg/dL 1 HOUR >180 mg/dL 2 HOUR >155 mg/dL 3 HOUR >140 mg/dL Performed By: #### 2 [id number] ####[facility] [address] [place] [address] Glu Fastingon 06-03-2020 Glucose [Mass/Vol] 83 mg/dL Normal 55-99 [facility] Comment on above: Performed By: #### 2 [id number], [id number], [id number] #### [facility] [address] [place] [address] Rubella Abon 06-03-2020 Rubella Ab Positive Normal Positive [facility] Comment on above: Performed By: #### 2 [id number], [id number], [id number] #### [facility] [address] [place] [address] ABO/Rhon 06-02-2020 ABO/Rh Positive Invalid Interpretation Code [facility] Comment on above: Performed By: #### 1 [id number], [id number] ####[facility] [address] [place] [address] ABSCon 06-02-2020 ABSC Gel Interp Negative Normal [facility] Comment on above: Performed By: #### 1 [id number] ####[facility] [address] [place] [address] CBC w/Indiceson 06-02-2020 Erythrocyte distribution width (RBC) [Ratio] 12.9 % Normal 10.9-14.2 [facility] Comment on above: Performed By: #### 2 [id number], [id number], [id number] #### [facility] [address] [place] [address] Hematocrit (Bld) [Volume fraction] 33.5 % Low 34.0-46.0 [facility] Comment on above: Performed By: #### 2 787483, 7937179, [id number] #### [facility] [address] [place] [address] Hemoglobin (Bld) [Mass/Vol] 11.2 g/dL Low 12.0-16.0 [facility] Comment on above: Performed By: #### 2 351775, [id number], [id number] #### [facility] [address] [place] [address] MCH (RBC) [Entitic mass] 29.0 pg Normal 27.0-34.0 [facility] Comment on above: Performed By: #### 2 436898, [id number], [id number] #### [facility] [address] [place] [address] MCHC (RBC) [Mass/Vol] 33.5 g/dL Normal 31.4-36.[address] [facility] Comment on above: Performed By: #### 2 112918, 7684117, [id number] #### [facility] [address] [place] [address] MCV (RBC) [Entitic vol] 86.6 fL Normal 80.0-100.0 [facility] Comment on above: Performed By: #### 2 403487, [id number], [id number] #### [facility] [address] [place] [address] Platelet mean volume (Bld) [Entitic vol] 7.6 fL Normal 6.4-10.8 [facility] Comment on above: Performed By: #### 2 360271, [id number], [id number] #### [facility] [address] [place] [address] Platelets (Bld) [#/Vol] 284.0 E9/L Normal 150.0-500.0 [facility] Comment on above: Performed By: #### 2 361894, 5532716, [id number] #### [facility] [address] [place] [address] RBC (Bld) [#/Vol] 3.9 E12/L Low 4.3-5.9 [facility] Comment on above: Performed By: #### 2 233840, [id number], [id number] #### [facility] [address] [place] [address] WBC corrected for nucl RBC Auto (Bld) [#/Vol] 9.4 E9/L Normal 4.0-11.0 [facility] Comment on above: Performed By: #### 2 730035, [id number], [id number] #### [facility] [address] [place] [address] Consent for Treatmenton 05-19 Consent for Treatment [id number] 104 [id number]:127 Normal [facility] Gest Scr Glu 1 Hron 06-03-19 Glucose [Mass/Vol] 150 mg/dL High 55-140 [facility] Comment on above: Result Comment: Posi tive Screen =1 HR > 140mg/dL Performed By: #### 2 142927, [id number], [id number] #### [facility] [address] [place] [address] Ambulatory Clinical Summaryo n 2020 Ambulatory Clinical Summary {[id number] Normal [facility] Obstetrics Office/Clinic Not jasmine 2020 Obstetrics Office/Clinic Note Chief Complaint OB 29w 5d, baby moving, patient doing 28 week labs done this Obstetric History History (1,0,0,2) # 1 Baby 1 Outcome Date: 2008 Outcome: Live Outcome or Result: Vaginal Gender: Female Gest Age: 41 weeks Wt: 3232 g Hospital: [facility] Labor: -- Child's Name: -- Baby's Father: -- # 2 Baby 1 Outcome Date: 05/26/2013 Outcome: Live Outcome or Result: Vaginal Gender: Male Gest Age: 39 weeks 3 days Wt: 3390 g Hospital: [facility] Labor: 5 hr 55 min Child's Name: -- Baby's Father: -- Complications: None Complications: None EGA and CLIFFORD Gestational Age (EGA) and CLIFFORD * Note: EGA calculated as of 2020 CLIFFORD: 08/11/2020 EGA*: 29 weeks 5 days Type: Authoritative Method Date: 02/16/2020 Method: Ultrasound (02/16/2020) Confirmation: Confirmed Description: -- Comments: -- Entered by: Caroline HILARIO on 04/21/2020 Other CLIFFORD Calculations for this : No additional CLIFFORD calculations have been recorded for this History of Present Illness ob visit Review of Systems Constitutional: No fever, No chills, No sweats, No weakness. Respiratory: No shortness of breath, No cough. Cardiovascular: No chest pain, Noperipheral edema. Physical Exam Vitals & Measurements T: 37 ?C (Temporal Artery) BP: 126/74 HT: 157 cm HT: 157.0 cm WT: 87.4 kg WT: 87.4 kg BMI: 35.46 Examinations Glucose Urine Dipstick: Negative Protein Urine Dipstick: Negative Weight Measured: 87.4 kg Systolic Blood Pressure: 126 mmHg Diastolic Blood Pressure: 74 mmHg D-EGA at Documented Date, Time: 29W 5D Fundal Height: 31 cm Labor Signs/Symptoms: None Baby A - Activity: Present per patient Baby A - FHR: 140 bpm Next Appointment: 2 week(s) Antepartum Comment: Will do growth USs here. Ordered. Mood now good. 28wk labs on . TdaP at next visit. General Exam: Constitutional: alert, no acute distress, well hydrated, well developed, well nourished. Skin: normal color, no rashes, no lesions, no unusual bruising. Head: atraumatic, normocephalic. Eyes: EOM intact, no nystagmus, no icterus. Ears: no external deformities, gross hearing intact. Respiratory: no respiratory distress. Abdomen: gravid, nontender. Extremities: no deformities, no edema. Psych: oriented to all spheres, affect and mood appropriate, normal interaction, good eye contact. Assessment/Plan RTC 3 wks. Will do 28wk labs later this wk. Desires IOL at 39wks. 1. Supervision of high risk in third trimester (O09.93: Supervision of high risk , unspecified, third trimester) Ordered: Office Visit Level 4 Est 37640 [place] US Follow Up US Follow Up 2. Obesity complicating , third trimester (O99.213: Obesity complicating , third trimester) Ordered: Office Visit Level 4 Est 12200 [place] US Follow Up US Follow Up 3. Depression during (O99.340: Other mental disorders complicating , unspecified trimester) Ordered: Office Visit Level 4 Est 58632 [place] US Follow Up US Follow Up 4. 29 weeks gestation of (Z3A.29: 29 weeks gestation of ) Ordered: Office Visit Level 4 Est 24067 [place] US Follow Up US Follow Up Follow-up With When Contact Information Funmilayo ESCOBEDO MD In [address] [place] [address]- Additional Instructions: Problem List/Past Medical History Ongoing Depression during Obesity complicating , third trimester Ovarian cyst Supervision of high risk in third trimester Historical Medications Multivitamins, 1 tab(s), Oral, Daily Allergies No Known Allergies Social History Alcohol - Denies Alcohol Use, 11/21/2009 DENIES, 04/14/2020 Substance Abuse - Denies Substance Abuse, 11/21/2009 DENIES, 04/14/2020 Tobacco - Denies Tobacco Use, 11/21/2009 Never (less than 100 in lifetime) Tobacco Use:. Never Smokeless Tobacco Use:., 05/11/2020 Family History Diabetes mellitus type 2: Mother and Father. Hypertension: Mother and Father. Lab Results Ambulatory Point of Care Results Glucose Urine Dipstick: Negative (05/31/20 14:25:00) Protein Urine Dipstick: Negative (05/31/20 14:25:00) Normal [facility] Comment on above: Result Comment: Elec tronically Signed By: Funmilayo ESCOBEDO MD\.br\Date and Time Signed: 05/31/20 15:32 EDT Patient Educationon 06-01-19 Patient Education Obstetrics and Gynecology Glucose Tolerance Test During Why am I having this test? The glucose tolerance test (GTT) is done to check how your body processes sugar (glucose). This is one of several tests used to diagnose diabetes that develops during (gestational diabetes mellitus). Gestational diabetes is a temporary form of diabetes that some women develop during . It usually occurs during the second trimester of and goes away after delivery. Testing (screening) for gestational diabetes usually occurs between 24 and 28 weeks of . You may have the GTT test after having a 1-hour glucose screening test if the results from that test indicate that you may have gestational diabetes. You may also have this test if: ? You have a history of gestational diabetes. ? You have a history of giving to very large babies or have experienced repeated loss (stillbirth). ? You have signs and symptoms of diabetes, such as: ? Changes in your vision. ? Tingling or numbness in your hands or feet. ? Changes in hunger, thirst, and urination that are not otherwise explained by your . What is being tested? This test measures the amount of glucose in your blood at different times during a period of 3 hours. This indicates how well your body is able to process glucose. What kind of sample is taken? Blood samples are required for this test. They are usually collected by inserting a needle into a blood vessel. How do I prepare for this test? ? For 3 days before your test, eat normally. Have plenty of carbohydrate-rich foods. ? Follow instructions from your health care provider about: ? Eating or drinking restrictions on the day of the test. You may be asked to not eat or drink anything other than water (fast) starting 8?10 hours before the test. ? Changing or stopping your regular medicines. Some medicines may interfere with this test. Tell a health care provider about: ? All medicines you are taking, including vitamins, herbs, eye drops, creams, and bmvr-laz-hdmxlsz medicines. ? Any blood disorders you have. ? Any surgeries you have had. ? Any medical conditions you have. What happens during the test? First, your blood glucose will be measured. This is referred to as your fasting blood glucose, since you fasted before the test. Then, you will drink a glucose solution that contains a certain amount of glucose. Your blood glucose will be measured again 1, 2, and 3 hours after drinking the solution. This test takes about 3 hours to complete. You will need to stay at the testing location during this time. During the testing period: ? Do not eat or drink anything other than the glucose solution. ? Do not exercise. ? Do not use any products that contain nicotine or tobacco, such as cigarettes and e-cigarettes. If you need help stopping, ask your health care provider. The testing procedure may vary among health care providers and hospitals. How are the results reported? Your results will be reported as milligrams of glucose per deciliter of blood (mg/dL) or millimoles per liter (mmol/L). Your health care provider will compare your results to normal ranges that were established after testing a large group of people (reference ranges). Reference ranges may vary among labs and hospitals. For this test, common reference ranges are: ? Fasting: less than 95?105 mg/dL (5.3?5.8 mmol/L). ? 1 hour after drinking glucose: less than 180?190 mg/dL (10.0?10.5 mmol/L). ? 2 hours after drinking glucose: less than 155?165 mg/dL (8.6?9.2 mmol/L). ? 3 hours after drinking glucose: 140?145 mg/dL (7.8?8.1 mmol/L). What do the results mean? Results within reference ranges are considered normal, meaning that your glucose levels are well-controlled. If two or more of your blood glucose levels are high, you may be diagnosed with gestational diabetes. If only one level is high, your health care provider may suggest repeat testing or other tests to confirm a diagnosis. Talk with your health care provider about what your results mean. Questions to ask your health care provider Ask your health care provider, or the department that is doing the test: ? When will my results be ready? ? How will I get my results? ? What are my treatment options? ? What other tests do I need? ? What are my next steps? Summary ? The glucose tolerance test (GTT) is one of several tests used to diagnose diabetes that develops during (gestational diabetes mellitus). Gestational diabetes is a temporary form of diabetes that some women develop during . ? You may have the GTT test after having a 1-hour glucose screening test if the results from that test indicate that you may have gestational diabetes. You may also have this test if you have any symptoms or risk factors for gestational diabetes. ? Talk with your health care provider about what your results mean. This inform (more content not included)... Normal [facility] RAD - Ultrasound Reporton RAD - Ultrasound Report [id number]. 00CD:127 [facility] Coding Summary.on 05-17-2020 Coding Summary. CODING DATE: 05/16/2020 FINAL [facility] STATUS: Home (Routine DC) PAYOR: Diamond ADMIT DX: REASON FOR VISIT DX: O09.92 Supervision of high risk , unspecified, second trimester FINAL DX: PRINCIPAL: O09.92 Supervision of high risk , unspecified, second trimester SECONDARY: PYMT PROC APC STAT DESCRIPTION DOCTOR NAME DATE NOTE: The code number assigned matches the documented diagnosis and / or procedure in the patient's chart. However, the narrative phrase printed from the coding software may appear abbreviated, or result in slightly different terminology. Coded By: Vannesa Pitt CphT Date Saved: 05/16/2020 11:[address] [facility] C Urineon 05-13-2020 Bacteria identified Cx Nom (U) Microbiology PROCEDURE: Urine Culture [R1] SOURCE: U Random BODY SITE: COLLECTED DATE/TIME: 05/11/2020 10:37 EDT RECEIVED DATE/TIME: 05/11/2020 19:08 EDT START DATE/TIME: 05/11/2020 19:08 EDT FREE TEXT SOURCE: Caroline HILARIO Stephanie FINAL REPORTS Final Report [] Verified Date/Time: 05/13/2020 08:25 EDT 4,000 cfu/ml Mixed skin contaminants Performing Locations R1: This test was performed at: [facility], [address] [place] [address], [id number] , , [facility] Comment on above: Performed By: #### 2 [id number] ####[facility] [address] [place] [address] Ambulatory Clinical Summaryo n 05-11-2020 Ambulatory Clinical Summary {[id number] Jerardo Gonzales [facility] Obstetrics Office/Clinic Not jasmine 05-11-2020 Obstetrics Office/Clinic Note Chief Complaint OB visit 26 weeks 6 days. Leg Pain, Has alot of anxiety. Tired all the time. 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 Obstetric History History (1,0,0,2) # 1 Baby 1 Outcome Date: 2008 Outcome: Live Outcome or Result: Vaginal Gender: Female Gest Age: 41 weeks Wt: 3232 g [facility] [facility] Labor: -- Child's Name: -- Baby's Father: -- # 2 Baby 1 Outcome Date: 05/26/2013 Outcome: Live Outcome or Result: Vaginal Gender: Male Gest Age: 39 weeks 3 days Wt: 3390 g Hospital: [facility] Labor: 5 hr 55 min Child's Name: -- Baby's Father: -- Complications: None Complications: None EGA and CLIFFORD Gestational Age (EGA) and CLIFFORD * Note: EGA calculated as of 05/11/2020 CLIFFORD: 08/11/2020 EGA*: 26 weeks 6 days Type: Authoritative Method Date: 02/16/2020 Method: Ultrasound (02/16/2020) Confirmation: Confirmed Description: -- Comments: -- Entered by: Caroline HILARIO on 04/21/2020 Other CLIFFORD Calculations for this : No additional CLIFFORD calculations have been recorded for this History of Present Illness 29 y/o here for visit, accompanied by significant other. She has been doing meditation for her depression. Last stomach was really hard up top, she had trouble sleeping, couldn't feel the baby move much. This morning had leg cramps. She does not feel baby's movements as much as she did last week. She does feel baby move every day. She is not having constipation. She has daily headaches. No vision changes. No swelling. 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 Review of Systems Constitutional: No fever, No chills, Yes headache. Skin: No rash, No lesions. Respiratory: No shortness of breath. Cardiovascular: No peripheral edema. Gastrointestinal: No nausea, No vomiting, Noheartburn, No diarrhea, No constipation. Genitourinary: No dysuria. Gynecology: No abnormal vaginal discharge, No vaginal itching/burning, No bleeding, No leaking of fluid. Physical Exam Vitals & Measurements BP: 130/90 BP: 122/82(Supine) HT: 158 cm HT: 158.0 cm WT: 83.9 kg WT: 83.9 kg BMI: 33.61 Examinations Glucose Urine Dipstick: Negative Protein Urine Dipstick: Negative Weight Measured: 83.9 kg Systolic Blood Pressure: 130 mmHg Diastolic Blood Pressure: 90 mmHg D-EGA at Documented Date, Time: 26W 6D Fundal Height: 27.5 cm Labor Signs/Symptoms: Headaches Baby A - Activity: Present per patient Baby A - FHR: 160 bpm Next Appointment: 2 week(s) Antepartum Comment: labs ordered. urine cx sent. General Exam: Constitutional: alert, no acute distress, well hydrated, well developed, well nourished. Skin: normal color, no rashes, no lesions, no unusual bruising. Head: atraumatic, normocephalic. Eyes: EOM intact, no nystagmus, no icterus. Ears: no external deformities, gross hearing intact. Respiratory: no respiratory distress. Abdomen: gravid, nontender. Extremities: no deformities, no edema. Psych: oriented to all spheres, affect and mood appropriate, normal interaction, good eye contact. Assessment/Plan 1. Obesity complicating , second trimester (O99.212: Obesity complicating , second trimester) Has gained 4lbs so far. Ordered: Office Visit Level 3 Est 41878 [place] 2. Depression during (O99.340: Other mental disorders complicating , unspecified trimester) Doing meditation. Ordered: Office Visit Level 3 Est 98013 [place] 3. Supervision of high risk in second trimester (O09.92: Supervision of high risk , unspecified, second trimester) Plan for 28 wk labs to be done prior to next visit. Sending out urine as she was recently treated for UTI. Follow up in 2 weeks. Preeclampsia precautions. Make sure drinking enough water. Ordered: ABO/Rh Antibody Screen CBC w/ Indices Gestational Screen Glucose 1 Hour Office Visit Level 3 Est 95947 [place] Urine Culture 4. 26 weeks gestation of (Z3A.26: 26 weeks gestation of ) Ordered: Office Visit Level 3 Est 83211 [place] Follow-up With When Contact Information [facility] In [address] [place] [address]- Additional Instructions: Problem List/Past Medical History Ongoing Depression during Obesity complicating , second trimester Ovarian cyst Supervision of high risk in second trimester Historical Medications Multivitamins, 1 tab(s), Oral, Daily Allergies No Known Allergies Social History Alcohol - Denies Alcohol Use, 11/21/2009 DENIES, 04/14/2020 Substance Abuse - Denies Substance Abuse, 11/21/2009 DENIES, 04/14/2020 Tobacco - Denies Tobacco Use, 11/21/2009 Never (less than 100 in lifetime) Tobacco Use:. Never Smokeless Toba (more content not included)... Normal [facility] Comment on above: Result Comment: Elec tronically Signed By: Caroline HILARIO\.rosey\Date and Time Signed: 05/11/20 10:23 EDT Patient Educationon 05-12-19 Patient Education Obstetrics and Gynecology Before Baby Comes Home Once your baby is home with you, things may become a bit hectic as you map out a schedule around your 's patterns. Preparing the things you need at home before that time comes is important. Before your baby arrives, make sure you: ? Have all the supplies that you will need to care for your baby. ? Know where to go if there is an emergency. ? Discuss the baby's arrival with other family members. What supplies will I need? Having the following supplies ready before your baby arrives will help ensure that you are prepared: Large items ? Crib or bassinet and mattress. Make sure to follow safe sleep recommendations to reduce the risk of sudden infant syndrome. ? Rear-facing infant car seat. Have a trained professional check to make sure that it is installed in your car correctly. Many hospitals and fire departments perform this service free of charge. ? Stroller. Always make sure any products?including cribs, mattresses, bassinets, or portable cribs and play areas?are safe. Check for recalls on your specific brand and model of crib. ? Nursing pillow. ? Milk storage containers or bags. ? Nipple cream. ? Nursing bra. ? Breast pads. ? Breast pump. ? Breast dover. Feeding ? Formula. ? Purified bottled water. ? 6?8 bottles (4?5 oz bottles and 8?9 oz bottles). ? 6?8 bottle nipples. ? Bibs and burp cloths. ? Bottle brush. ? Bottle sterilizer (or a pot with a lid). Bathing ? bath basin. ? Mild baby soap and baby shampoo. ? Soft cloth towel and washcloth. ? Hooded towel. Diapering ? Diapers. You may need to use as many as 10?12 diapers each day. ? Baby wipes. ? Diaper cream. ? Petroleum jelly. ? 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 ? Hand capacity manager. Health and safety ? Rectal thermometer. ? medicines. ? Bulb syringe. ? Baby nail clippers. ? Baby monitor. ? 2?3 pacifiers, if desired. Sleeping ? Sleep sack or swaddling blanket. ? Firm mattress pad and fitted sheets for the crib or bassinet. Other supplies ? Diaper bag. ? Clothing, including one-piece outfits and pajamas. ? Receiving blankets. Follow these instructions at home: Preparing for an emergency Prepare for an emergency by taking these steps: ? Know when to seek care or call your health care provider. ? Know how to get to the nearest hospital. ? List the phone numbers of your baby's health care providers near your home phone and in your cell phone. ? Take an first aid and CPR class. ? Place the phone number for the poison control center on your refrigerator. ? If there will be caregivers in the home, make sure your phone number, emergency contacts, and address are placed on the refrigerator in case they need to be given to emergency services. Preparing your family ? Create a plan for visitors. Keep your baby away from people who have a cough, fever, or other symptoms of illness. ? Prepare freezer meals ahead of time, and ask friends and family to help with meal preparation, errands, and everyday tasks. ? If you have other children: ? Talk with them about the baby coming home. Ask them how they feel about it. ? Read a book together about being a new big brother or sister. ? Find ways to let them help you prepare for the new baby. ? Have someone ready to care for them while you are in the hospital. Where to find more information ? Consumer Product Safety Commission: www.cpsc.gov ? [employer] [employer]: www.healthychildren.o rg ? Safe [employer]: www.safekids.org Summary ? Planning is important before bringing your baby home from the hospital. You will need to have certain supplies ready before your baby arrives. ? You will need to have a rear-facing infant car seat ready prior to bringing your baby home. Have a trained professional check to make sure that it is installed in your car correctly. ? Always make sure any products?including cribs, mattresses, bassinets, or portable cribs and play areas?are safe. Check for recalls on your specific brand and model of crib. ? Know when to seek care or call your health care provider, and know how to get to the nearest hospital. This information is not intended to replace advice given to you by your health care provider. Make sure you discuss any questions you have with your health care provider. Document Released: 01/17/2009 Document Revised: 01/17/2018 Document Reviewed: 12/25/2017 [employer] Patient Education ? [address] [employer] [facility] Coding Summary.on 04-29-2020 Coding Summary. CODING DATE: 04/28/2020 [facility] STATUS: Home (Routine DC) PAYOR: [place] ADMIT DX: REASON FOR VISIT DX: O09.92 Supervision of high risk , unspecified, second trimester FINAL DX: PRINCIPAL: O09.92 Supervision of high risk , unspecified, second trimester SECONDARY: Z3A.21 21 weeks gestation of PYMT PROC APC STAT DESCRIPTION DOCTOR NAME DATE NOTE: The code number assigned matches the documented diagnosis and / or procedure in the patient's chart. However, the narrative phrase printed from the coding software may appear abbreviated, or result in slightly different terminology. Coded By: Vannesa Pitt CphT Date Saved: 04/28/2020 10:[address] [facility] Coding Summary.on 04-27-2020 Coding Summary. CODING DATE: 04/27/2020 FINAL [facility] STATUS: Home (Routine DC) PAYOR: [place] ADMIT DX: REASON FOR VISIT DX: Z34.82 Encounter for supervision of other normal , second trimester FINAL DX: PRINCIPAL: Z34.82 Encounter for supervision of other normal , second trimester SECONDARY: Z3A.24 24 weeks gestation of PYMT PROC APC STAT DESCRIPTION DOCTOR NAME DATE NOTE: The code number assigned matches the documented diagnosis and / or procedure in the patient's chart. However, the narrative phrase printed from the coding software may appear abbreviated, or result in slightly different terminology. Coded By: Vannesa Pitt CphT Date Saved: 04/27/2020 10:[address] [facility] Nursing Assessmenton 021 Nursing Assessment [id number] .[id number]:127 [facility] C Urineon 04-23-2020 Bacteria identified Cx Nom (U) Microbiology PROCEDURE: Urine Culture [R1] SOURCE: U CleanCatch BODY SITE: COLLECTED DATE/TIME: 04/21/2020 16:15 EST RECEIVED DATE/TIME: 04/21/2020 17:00 EST START DATE/TIME: 04/21/2020 17:01 EST FREE TEXT SOURCE: LAURA MACEDO, Funmilayo ESCOBEDO MD, Funmilayo Ryan FINAL REPORTS Final Report [] Verified Date/Time: 04/23/2020 12:51 EST 1,000 cfu/ml Mixed skin contaminants Performing Locations R1: This test was performed at: [facility], [address] [place] [address], [address] , , [facility] Comment on above: Performed By: #### 2 [id number], [id number], [id number] #### [facility] [address] [place] [address] Consent for Treatmenton Consent for Treatment [id number] .00CD:127 [facility] Consent for Treatment [id number] [facility] [id number] .00CD:127 Normal [facility] Discharge Instructionson Discharge Instructions [id number] .[id number]:127 Normal [facility] Inpatient Clinical Summaryon 04-21-2020 Inpatient Clinical Summary [address] [address] Clinical Summary Person Information Name: MYA MYLES [facility] Age: 29 Years : 1990 Sex: Female PCP: Chao Blackwell III, DO Marital Status: Single Race: White Ethnicity: Non- or Language: Algerian Visit Id: Visit Reason: Speciality: Acuity: Enc Type: OB Triage Med Service: Obstetrics Arrival: 04/21/2020 15:56:05 Discharge: 04/21/2020 17:47:48 Dispo Type: Home ([facility]) Address: [address] [place] [address] [address] [place] [id number] Provider Notes: Diagnosis: Problems Active Depression during Obesity complicating , second trimester Supervision of high risk in second trimester (10/16/2019) Ovarian cyst Smoking Status: Never Smoker Functional Status: Sensory Deficits: History of Falls: Mobility Assistance Prior to Admission: ADLs: Current Level of Assistance for Self-Care/Mobility: Cognitive Status: Allergies No Known Allergies Laboratory or Other Results This Visit (last charted value for your 04/21/2020 visit) Urinalysis 04/21/2020 4:15 PM UA Bacteria: 1+ /HPF UA Bili: Negative UA Color: Yellow UA Glucose: Negative UA Ketones: 1+ UA Leuk Est: 1+ UA Nitrite: Negative UA Protein: Negative UA RBC: 0-3 /HPF UA Squam Epithelial: 3-4 /HPF UA Urobilinogen: 0.2 EU/dL -- Normal range between ( 0.0 and 1.0 ) UA WBC: 0-5 /HPF UA Spec Desc: Clean Catch UA Blood: Negative UA Clarity: Clear UA pH: 7.0 -- Normal range between ( 5.0 and 9.0 ) UA Spec Grav: 1.010 -- Normal range between ( 1.005 and 1.030 ) Measurements: Height: 158 cm Weight: 83 kg Blood Pressure: 117 mmHg / 72 mmHg BMI: 33.25 kg/m2 Procedures No Procedures Documented Immunizations No Immunizations Documented This Visit Final Med List: cephalexin (Keflex 500 mg oral capsule) 1 Capsules By Mouth 4 times a day for 7 Days. Refills: 0. multivitamin, ( Multivitamins) 1 Tablets By Mouth every day. Care Team Members: Attending Physician: Funmilayo ESCOBEDO MD Consulting Physician: Referring Physician: Follow up: With: Address: When: Funmilayo [address] [place] [id number] [place] () 05/12/2020 9:00 AM Comments: Call for any problems. Type Location Start [facility] 05/12/2020 9:00 AM 05/12/2020 9:15 AM Confirmed Patient Education Information: Normal [facility] Inpatient Patient Summaryon 04-21-2020 Inpatient Patient Summary [address] [id number] Patient Discharge Instructions PERSON INFORMATION Name: MYA MYLES Date of : 1990 Current Date: 04/21/2020 17:48:50 PHYSICIANS Admitting Physician: Funmilayo ESCOBEDO MD Primary Care Physician: Chao Blackwell III, DO PCP Comment: Discharge Diagnosis: Condition at Discharge: MYA MYLES has been given the following list of follow-up instructions, prescriptions, and patient education materials: PATIENT FOLLOW-UP INFORMATION Diet: Activity: Wound Care Instructions: Remove Your Dressing IN: Days Call Your Doctor For: IF UNABLE TO CONTACT YOUR PHYSICIAN AND YOU FEEL IT IS AN EMERGENCY, GO TO THE NEAREST EMERGENCY ROOM OR CALL 911 Home Treatment: Devices/Equipment: Special Services: Additional Instructions: Physician to provide the following pending test results: Follow up: With: Address: When: [place] [address] [employer] () 05/12/2020 9:00 AM Comments: Call for any problems. In the event that this physician does not participate in your insurance network, please consult with your insurance company to find a nearby participating provider. Type Location Start [facility] ELIZABETH LUCIO [place] 05/12/2020 9:00 AM 05/12/2020 9:15 AM Confirmed Comment: JUSTINO Burton VANESSA L, have received the attached patient education materials/instruction s and have verbalized understanding. Patient Signature Date Clinican/Nurse Signature Date MEDICATION LIST Medications to Continue with No Changes Other Medications cephalexin (Keflex 500 mg oral capsule) 1 Capsules By Mouth 4 times a day for 7 Days. Refills: 0. Last Dose: ____Next Dose: ____ multivitamin, ( Multivitamins) 1 Tablets By Mouth every day. Last Dose: ____Next Dose: ____ Pharmacy Information: [facility] PATIENT EDUCATION INFORMATION Instructions: Medication Leaflets: You may receive a survey from [employer] asking you to rate your care experience. Your feedback is important and will help us understand what we do well and how we can improve the quality of care we provide to you, your loved ones and our community. It?s an honor to serve you. Thank you for choosing [facility] Normal [facility] Insurance Correspondence Off iceon 04-21-2020 Insurance Correspondence Office [id number] .[id number]:127 Normal [facility] RAD - Ultrasound Reporton RAD - Ultrasound Report [id number] .[id number]:127 Normal [facility] UA With Cult Reflexon 2020 Bacteria LM Ql (Urine sed) 1+ /HPF Abnormal Trace [facility] Comment on above: Performed By: #### 2 232482, [id number], [id number] #### [facility] [address] [place] [address] Bilirubin Ql (U) Negative Normal Negative [facility] Comment on above: Performed By: #### 2 975189, 6194799, [id number] #### [facility] [address] [place] [address] Clarity (U) CLEAR Normal Clear [facility] Comment on above: Performed By: #### 2 456318, 1889509, [id number] #### [facility] [address] [place] [address] Color (U) YELLOW Normal Yellow [facility] Comment on above: Performed By: #### 2 773057, 0047380, [id number] #### [facility] [address] [place] [address] Epithelial cells.squamous LM.HPF (Urine sed) [#/Area] 3-4 Normal 0-2 [facility] Comment on above: Performed By: #### 2 879242, 3604633, [id number] #### [facility] [address] [place] [address] Glucose Test strip (U) [Mass/Vol] Negative Normal Negative [facility] Comment on above: Performed By: #### 2 680338, 8636672, [id number] #### [facility] [address] [place] [address] Hemoglobin Ql (U) Negative Normal Negative [facility] Comment on above: Performed By: #### 2 434809, 6911891, [id number] #### [facility] [address] [place] [address] Ketones (U) [Mass/Vol] 1+ Abnormal Negative [facility] Comment on above: Performed By: #### 2 543732, 8883534, [id number] #### [facility] [address] [place] [address] [place].plasma/[place].R BC (Bld) [Mass ratio] 0-3 Normal 0-3 [facility] Comment on above: Performed By: #### 2 370667, 5491639, [id number] #### [facility] [address] [place] [address] Nitrite Ql (U) Negative Normal Negative [facility] Comment on above: Performed By: #### 2 161172, 8684500, [id number] #### [facility] [address] [place] [address] pH (U) 7.0 [pH] Invalid Interpretation Code 5.0-9.0 [facility] Comment on above: Performed By: #### 2 089047, 8809662, [id number] #### [facility] [address] [place] [address] Protein (U) [Mass/Vol] Negative Normal Negative [facility] Comment on above: Performed By: #### 2 050339, 2656284, [id number] #### [facility] [address] [place] [address] Specific gravity (U) [Rel density] 1.010 Invalid Interpretation Code 1.005-1.030 [facility] Comment on above: Performed By: #### 2 966975, 9104246, [id number] #### [facility] [address] [place] [address] UA Spec Desc Clean Catch Normal [facility] Comment on above: Performed By: #### 2 705514, 7958263, [id number] #### [facility] [address] [place] [address] Urobilinogen Qn (U) 0.2 {Henny'U}/dL Normal 0.0-1.0 [facility] Comment on above: Performed By: #### 2 313525, 8803026, [id number] #### [facility] [address] [place] [address] WBC Auto Ql (U) 1+ Abnormal Negative [facility] Comment on above: Performed By: #### 2 826402, 8869325, [id number] #### [facility] [address] [place] [address] WBC LM.HPF (Urine sed) [#/Area] 0-5 Normal 0-5 [facility] Comment on above: Performed By: #### 2 365428, 4664452, [id number] #### [facility] [address] [place] [address] C Urineon 04-18-2020 Bacteria identified Cx Nom (U) Microbiology PROCEDURE: Urine Culture [R1] SOURCE: U Random BODY SITE: COLLECTED DATE/TIME: 04/14/2020 10:08 EST RECEIVED DATE/TIME: 04/14/2020 19:35 EST START DATE/TIME: 04/14/2020 19:35 EST FREE TEXT SOURCE: LAURA MACEDO, Funmilayo ESCOBEDO MD, Funmilayo Ryan FINAL REPORTS Final Report [] Verified Date/Time: 04/18/2020 10:55 EST >100,000 cfu/ml Staphylococcus epidermidis SUSCEPTIBILITY RESULTS LEGEND: S=Susceptible, N/R=Not Reported, Blank=Data not available, or drug not advisable or tested, I=Intermediate, ESBL=Extended spectrum beta-lactamase, R=Resistant, TFG=Thymidine-depende nt strain, CALVIN=Beta-lactamase positive, EL=mcg/m;(mg/L), S*=Predicted susceptible interp, R*=Predicted resistant interp Staepi Antibiotic EL Dilutn EL Interp Amoxicillin/ <=4/2 S Clavulanate Ampicillin <=2 N/R Ampicillin/ <=8/4 S Sulbactam Cefazolin <=8 S Ciprofloxacin <=1 S Daptomycin <=1 S Gentamicin <=4 S Levofloxacin <=1 S Linezolid <=2 S Nitrofurantoin <=32 S Oxacillin <=0.25 S Penicillin <=0.03 S Rifampin <=1 S Tetracycline <=4 S Trimethoprim/ <=0.5/9.5 S Sulfa Vancomycin 1 S Performing Locations R1: This test was performed at: [facility], [address] [place] [address], [address]- , [place], [facility] Comment on above: Performed By: #### 2 [id number] ####[place] [address] [place] [address] Obstetrics Office/Clinic Not jasmine 04-18-2020 Obstetrics Office/Clinic Note Chief Complaint OB 21w 5d, baby moving Obstetric History History (1,0,0,2) # 1 Baby 1 Outcome Date: 2008 Outcome: Live Outcome or Result: Vaginal Gender: Female Gest Age: 41 weeks Wt: 3232 g Hospital: [facility] Labor: -- Child's Name: -- Baby's Father: -- # 2 Baby 1 Outcome Date: 05/26/2013 Outcome: Live Outcome or Result: Vaginal Gender: Male Gest Age: 39 weeks 3 days Wt: 3390 g Hospital: -- [facility] Labor: 5 hr 55 min Child's Name: -- Baby's Father: -- Complications: None Complications: None EGA and CLIFFORD Gestational Age (EGA) and CLIFFORD * Note: EGA calculated as of 04/14/2020 CLIFFORD: 08/20/2020 EGA*: 21 weeks 5 days Type: Authoritative Method Date: 11/14/2019 Method: Last Menstrual Period (11/14/2019) Confirmation: Confirmed Description: -- Comments: -- Entered by: Caroline HILARIO on 01/11/2020 Other CLIFFORD Calculations for this : No additional CLIFFORD calculations have been recorded for this History of Present Illness ob visit Review of Systems Constitutional: No fever, No chills, No sweats, No weakness. Respiratory: No shortness of breath, No cough. Cardiovascular: No chest pain, Noperipheral edema. Physical Exam Vitals & Measurements T: 37.1 ?C (Temporal Artery) BP: 122/76 HT: 157 cm WT: 84.4 kg WT: 84.4 kg BMI: 34.24 Examinations Glucose Urine Dipstick: Negative Protein Urine Dipstick: Negative Weight Measured: 84.4 kg Systolic Blood Pressure: 122 mmHg Diastolic Blood Pressure: 76 mmHg D-EGA at Documented Date, Time: 21W 5D Fundal Height: 22.5 cm Labor Signs/Symptoms: None Baby A - Activity: Present per patient Baby A - FHR: 150 bpm Next Appointment: 4 week(s) Antepartum Comment: Roberto US with MFM - f/u US for subvis roberto in a cpl wks; nl cfDNA; female. Depression - tearful daily. Not sleeping well. Will try melatonin and meditation. Will call if not better and needs meds General Exam: Constitutional: alert, no acute distress, well hydrated, well developed, well nourished. Skin: normal color, no rashes, no lesions, no unusual bruising. Head: atraumatic, normocephalic. Eyes: EOM intact, no nystagmus, no icterus. Ears: no external deformities, gross hearing intact. Respiratory: no respiratory distress. Abdomen: gravid, nontender. Extremities: no deformities, no edema. Psych: oriented to all spheres, affect and mood appropriate, normal interaction, good eye contact. Assessment/Plan RTC 4 wks. Suggested melatonin and meditation for depression. May also use benadryl or tylenol PM. Will call if not better. 1. Supervision of high risk in second trimester (O09.92: Supervision of high risk , unspecified, second trimester) Ordered: Office Visit Level 4 Est 61665 NC 2. Obesity complicating , second trimester (O99.212: Obesity complicating , second trimester) Ordered: Office Visit Level 4 Est 99756 NC 3. 21 weeks gestation of (Z3A.21: 21 weeks gestation of ) Ordered: Office Visit Level 4 Est 62488 NC 4. Depression during (O99.340: Other mental disorders complicating , unspecified trimester) Ordered: Office Visit Level 4 Est 60632 NC Follow-up With When Contact Information LAURA MACEDO, Funmilayo Ryan In [address] [place] [address]- Additional Instructions: Problem List/Past Medical History Ongoing Depression during Obesity complicating , second trimester Ovarian cyst Supervision of high risk in second trimester Historical Medications Multivitamins, 1 tab(s), Oral, Daily Allergies No Known Allergies Social History Alcohol - Denies Alcohol Use, 11/21/2009 DENIES, 04/14/2020 Substance Abuse - Denies Substance Abuse, 11/21/2009 DENIES, 04/14/2020 Tobacco - Denies Tobacco Use, 11/21/2009 Never (less than 100 in lifetime) Tobacco Use:. Never Smokeless Tobacco Use:., 04/14/2020 Family History Diabetes mellitus type 2: Mother and Father. Hypertension: Mother and Father. Lab Results Ambulatory Point of Care Results Glucose Urine Dipstick: Negative (04/14/20 09:00:00) Protein Urine Dipstick: Negative (04/14/20 09:00:00) Urine cx returned at positive for staph epidermitis. Rx for keflex sent to pts pharmacy. Spoke with pt. 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 Will repeat urine cx at next visit. Kendal Escobedo MD [facility] Comment on above: Result Comment: Elec tronically Signed By: LAURA MACEDO, Funmilayo Garner.br\Date and Time Signed: 04/18/20 18:12 EST C Urineon 04-17-2020 Bacteria identified Cx Nom (U) Microbiology PROCEDURE: Urine Culture [R1] SOURCE: U CleanCatch BODY SITE: COLLECTED DATE/TIME: 04/15/2020 02:51 EST RECEIVED DATE/TIME: 04/15/2020 02:51 EST START DATE/TIME: 04/15/2020 02:51 EST FREE TEXT SOURCE: Caroline HILARIO, Caroline FINAL REPORTS Final Report [] Verified Date/Time: 04/17/2020 10:39 EST <10,000 cfu/ml Mixed skin contaminants Performing Locations R1: This test was performed at: [facility], [address] [place] [address], [address] , , [facility] Comment on above: Performed By: #### 2 860959 ####[facility] [address] [place] [address] HIV Screen 4th Generation wR fxon 04-16-2020 HIV 1+2 Ab+HIV1 p24 Ag IA Ql Non-Reactive Invalid Interpretation Code Non Reactive [facility] Comment on above: Result Comment: Perf ormed at: [facility] [address] [id number] PhD Lanette Dunn Performed By: #### 2 988643, [id number], [id number] #### [facility] [address] [place] [address] Hep Bs Agon 04-16-2020 HBV surface Ag IA Ql Negative Invalid Interpretation Code Negative [facility] Comment on above: Result Comment: Perf ormed at: [facility] [place] [id number] [place], [place] [id number] PhD Lanette Dunn Performed By: #### 2 819730, [id number], [id number] #### [facility] [address] [place] [address] Coding Summary.on 04-15-2020 Coding Summary. CODING DATE: 04/15/2020 FINAL [facility] STATUS: Home (Routine DC) PAYOR: [place] ADMIT DX: REASON FOR VISIT DX: O09.91 Supervision of high risk , unspecified, first trimester FINAL DX: PRINCIPAL: O09.91 Supervision of high risk , unspecified, first trimester SECONDARY: PYMT PROC APC STAT DESCRIPTION DOCTOR NAME DATE NOTE: The code number assigned matches the documented diagnosis and / or procedure in the patient's chart. However, the narrative phrase printed from the coding software may appear abbreviated, or result in slightly different terminology. Coded By: Vannesa Pitt CphT Date Saved: 04/15/2020 09:18 am Normal [facility] RPRon 04-15-2020 Reagin Ab RPR Ql (S) Non-Reactive Normal Non-Reactive [facility] Comment on above: Performed By: #### 9 [id number], 7551248, [id number] ####[facility] [address] [place] [address] ABO/Rhon 04-14-2020 ABO/Rh Positive Invalid Interpretation Code [facility] Comment on above: Performed By: #### 2 547898, [id number] #### [facility] [address] [place] [address] ABSCon 04-14-2020 ABSC Gel Interp Negative Normal [facility] Comment on above: Performed By: #### 2 393436, [id number] #### [facility] [address] [place] [address] Ambulatory Clinical Summaryo n 04-14-2020 Ambulatory Clinical Summary {[id number] Normal [facility] Auto Diffon 04-14-2020 Basophils/100 WBC (Bld) 0.3 % Normal 0.0-2.0 [facility] Comment on above: Order Comment: Order Added by Discern Expert. Performed By: #### 2 303191, 8241725, [id number] #### [facility] [address] [place] [address] Basophils/Leukocytes Auto (Bld) [Pure # fraction] 0.0 E9/L Normal 0.0-0.2 [facility] Comment on above: Order Comment: Order Added by Discern Expert. Performed By: #### 2 958636, 2574181, [id number] #### [facility] [address] [place] [address] Eosinophils/100 WBC (Bld) 0.3 % Normal 0.0-8.0 [facility] Comment on above: Order Comment: Order Added by Idalia Expert. Performed By: #### 2 827887, 9638950, [id number] #### [facility] [address] [place] [address] Eosinophils/Leukocytes Auto (Bld) [Pure # fraction] 0.0 E9/L Normal 0.0-0.5 [facility] Comment on above: Order Comment: Order Added by Discern Expert. Performed By: #### 2 261943, 5119867, [id number] #### [facility] [address] [place] [address] Lymphocytes/100 WBC (Bld) 19.1 % Normal 14.0-50.0 [facility] Comment on above: Order Comment: Order Added by Discern Expert. Performed By: #### 2 351804, 1177609, [id number] #### [facility] [address] [place] [address] Lymphocytes/Leukocytes Auto (Bld) [Pure # fraction] 1.4 E9/L Normal 1.0-4.0 [facility] Comment on above: Order Comment: Order Added by Idalia Expert. Performed By: #### 2 657491, 3222954, [id number] #### [facility] [address] [place] [address] Monocytes/100 WBC (Bld) 6.4 % Normal 4.0-14.0 [facility] Comment on above: Order Comment: Order Added by Discern Expert. Performed By: #### 2 147684, 3989276, [id number] #### [facility] [address] [place] [address] Monocytes/Leukocytes Auto (Bld) [Pure # fraction] 0.5 E9/L Normal 0.2-1.0 [facility] Comment on above: Order Comment: Order Added by Discern Expert. Performed By: #### 2 237223, 1912099, [id number] #### [facility] [address] [place] [address] Neutrophils/100 WBC (Bld) 73.9 % Normal 36.0-75.0 [facility] Comment on above: Order Comment: Order Added by Discern Expert. Performed By: #### 2 013089, 4128279, [id number] #### [facility] [address] [place] [address] Neutrophils/Leukocytes Auto (Bld) [Pure # fraction] 5.3 E9/L Normal 2.0-7.5 [facility] Comment on above: Order Comment: Order Added by Discern Expert. Performed By: #### 2 617226, 8596881, [id number] #### [facility] [address] [place] [address] BhCG Quanton 04-14-2020 [place] [address] m[IU]/mL High 1-3 [facility] Comment on above: Result Comment: GEST ATIONAL AGE HCG RANGE (mIU/mL) NON- <1-3 0.2-1 WEEKS 5-50 1-2 WEEKS 50-500 2-3 WEEKS 100-5,000 3-4 WEEKS 500-10,000 4-5 WEEKS 1,000-50,000 5-6 WEEKS 10,000-100,000 6-8 WEEKS 15,000-200,000 8-12 WEEKS 10,000-100,000 Performed By: #### 2 561387 #### [facility] [address] [place] [address] CBC w/ Auto Diffon Erythrocyte distribution width (RBC) [Ratio] 13.0 % Normal 10.9-14.2 [facility] Comment on above: Performed By: #### 2 383185, 8588513, [id number] #### [facility] [address] [place] [address] Hematocrit (Bld) [Volume fraction] 34.6 % Normal 34.0-46.0 [facility] Comment on above: Performed By: #### 2 185626, 4187189, [id number] #### [facility] [address] [place] [address] Hemoglobin (Bld) [Mass/Vol] 11.6 g/dL Low 12.0-16.0 [facility] Comment on above: Performed By: #### 2 750806, 2015481, [id number] #### [facility] [address] [place] [address] MCH (RBC) [Entitic mass] 29.8 pg Normal 27.0-34.0 [facility] Comment on above: Performed By: #### 2 507633, 9845175, [id number] #### [facility] [address] [place] [address] MCHC (RBC) [Mass/Vol] 33.4 g/dL Normal 31.4-36.[address] [facility] Comment on above: Performed By: #### 2 443447, 9468672, [id number] #### [facility] [address] [place] [address] MCV (RBC) [Entitic vol] 89.2 fL Normal 80.0-100.0 [facility] Comment on above: Performed By: #### 2 [id number], [id number], [id number] #### [facility] [address] [place] [address] Platelet mean volume (Bld) [Entitic vol] 7.8 fL Normal 6.4-10.8 [facility] Comment on above: Performed By: #### 2 [id number], [id number], [id number] #### [facility] [address] [place] [address] Platelets (Bld) [#/Vol] 326.0 E9/L Normal 150.0-500.0 [facility] Comment on above: Performed By: #### 2 [id number], [id number], [id number] #### [facility] [address] [place] [address] RBC (Bld) [#/Vol] 3.9 E12/L Low 4.3-5.9 [facility] Comment on above: Performed By: #### 2 [id number], [id number], [id number] #### [facility] [address] [place] [address] WBC corrected for nucl RBC Auto (Bld) [#/Vol] 7.2 E9/L Normal 4.0-11.0 [facility] Comment on above: Performed By: #### 2 [id number], [id number], [id number] #### [facility] [address] [place] [address] Consent for Treatmenton 03-22 Consent for Treatment [id number] .[id number]:127 Normal [facility] [id number] 04-14-2020 HbA1c (Bld) [Mass fraction] 4.8 % Normal <=5.9 [facility] Comment on above: Performed By: #### 2 [id number], [id number], [id number] #### [facility] [address] [place] [address] Patient Educationon 04-14-19 Patient Education How a Baby Grows During begins when the male's sperm enters the female's egg. This happens in the fallopian tube and is called fertilization. The fertilized egg is called an embryo until it reaches 9 weeks from the time of fertilization. From 9 weeks until it is called a fetus. The fertilized egg moves down the tube into the uterus and attaches to the inside lining of the uterus. The woman is responsible for the growth of the embryo/fetus by supplying nourishment and oxygen through the blood stream and placenta to the developing fetus. The uterus becomes larger and pops out from the abdomen more and more as the fetus develops and grows. A normal lasts 280 days, with a range of 259 to 294 days, or 40 weeks. The is divided up into three trimesters: ? First trimester - 0 to 13 weeks. ? Second trimester - 14 to 27 weeks. ? Third trimester - 28 to 40 weeks. The day your baby is supposed to be born is called estimated date of confinement (EDC) or estimated date of delivery (CLIFFORD). GROWTH OF THE BABY MONTH BY MONTH 1. First Month: The fertilized egg attaches to the inside of the uterus and certain cells will form the placenta and others will develop into the fetus. The arms, legs, brain, spinal cord, lungs, and heart begin to develop. At the end of the first month the heart begins to beat. The embryo weighs less than an ounce and is ? inch long. 2. Second Month: The bones can be seen, the inner ear, eye lids, hands and feet form and genitals develop. By the end of 8 weeks, all of the major organs are developing. The fetus now weighs less than an ounce and is one inch (2.54 cm) long. 3. Third Month: Teeth buds appear, all the internal organs are forming, bones and muscles begin to grow, the spine can flex and the skin is transparent. Finger and toe nails begin to form, the hands develop faster than the feet and the arms are longer than the legs at this point. The fetus weighs a little more than an ounce (0.03 kg) and is 3? inches (8.89cm) long. 4. Fourth Month: The placenta is completely formed. The external sex organs, neck, outer ear, eyebrows, eyelids and fingernails are formed. The fetus can hear, swallow, flex its arms and legs and the kidney begins to produce urine. The skin is covered with a white waxy coating (vernix ) and very thin hair (lanugo ) is present. The fetus weighs 5 ounces (0.14kg) and is 6 to 7 inches (16.51cm) long. 5. Fifth Month: The fetus moves around more and can be felt for the first time (called quickening ), sleeps and wakes up at times, may begin to suck its finger and the nails grow to the end of the fingers. The gallbladder is now functioning and helps to digest the nutrients, eggs are formed in the female and the testicles begin to drop down from the abdomen to the scrotum in the male. The fetus weighs ? to 1 pound (0.45kg) and is 10 inches (25.4cm) long. 6. Sixth Month: The lungs are formed but the fetus does not breath yet. The eyes open, the brain develops more quickly at this time, one can detect finger and toe prints and thicker hair grows. The fetus weighs 1 to 1? pounds (0.68kg) and is 12 inches (30.48cm) long. 7. Seventh Month: The fetus can hear and respond to sounds, kicks and stretches and can sense changes in light. The fetus weighs 2 to 2? pounds (1.13kg) and is 14 inches (35.56cm) long. 8. Eight Month: All organs and body systems are fully developed and functioning. The bones get harder, taste buds develop and can taste sweet and sour flavors and the fetus may hiccup now. Different parts of the brain are developing and the skull remains soft for the brain to grow. The fetus weighs 5 pounds (2.27kg) and is 18 inches (45.75cm) long. 9. Ninth Month: The fetus gains about a half a pound a week, the lungs are fully developed, patterns of sleep develop and the head moves down into the bottom of the uterus called vertex. If the buttocks moves into the bottom of the uterus, it is called a breech. The fetus weighs 6 to 9 pounds (2.72 to 4.08kg) and is 20 inches (50.8cm) long. You should be informed about your , yourself and how the baby is developing as much as possible. Being informed helps you to enjoy this experience. It also gives you the sense to feel if something is not going right and when to ask questions. Talk to your caregiver when you have questions about your baby or your own body. Document Released: 07/23/2008 Document Revised: 04/28/2012 Document Reviewed: 07/23/2008 ExitCare? Patient Information ?2013 [employer]. Obstetrics and Gynecology Eating Plan for Women While you are , your body requires additional nutrition to help support your growing baby. You also have a higher need for some vitamins and minerals, such as folic acid, calcium, iron, and vitamin D. Eating a healthy, well-balanced diet is very important for your health and your baby's health. Your need for extra calories varies for the three 3-month segments of your (t (more content not included)... Normal [facility] U Drug Screenon 04-14-2020 Amphetamines Screen method >1000 ng/mL Ql (U) Negative Normal Negative [facility] Comment on above: Result Comment: Nega tive Cutoff: <1000 ng/mL Performed By: #### 2 [id number] #### [facility] [address] [place] [address] Barbiturates Screen Ql (U) Negative Normal Negative [facility] Comment on above: Result Comment: Nega tive Cutoff: <200 ng/mL Performed By: #### 2 [id number] #### [facility] [address] [place] [address] Benzodiazepines Ql (U) Negative Normal Negative [facility] Comment on above: Result Comment: Nega tive Cutoff: <200 ng/mL Performed By: #### 2 [id number] #### [facility] [address] [place] [address] Cocaine Ql (U) Negative Normal Negative [facility] Comment on above: Result Comment: Nega tive Cutoff: <300 ng/mL Performed By: #### 2 [id number] #### [facility] [address] [place] [address] Opiates Screen Ql (U) Negative Normal Negative [facility] Comment on above: Result Comment: Nega tive Cutoff: <300 ng/mL Performed By: #### 2 [id number] #### [facility] [address] [place] [address] Phencyclidine Screen method >25 ng/mL Ql (U) Negative Normal Negative [facility] Comment on above: Result Comment: Nega tive Cutoff: <25 ng/mL These drug screen results are to be used for medical (i.e., treatment) purposes only. Unconfirmed drug screening results must not be used for non-medical purposes (e.g., employment testing, legal testing). Performed By: #### 2 [id number] #### [facility] [address] [place] [address] Tetrahydrocannabinol Screen method >50 ng/mL Ql (U) Negative Normal Negative [facility] Comment on above: Result Comment: Nega tive Cutoff: <50 ng/mL Performed By: #### 2 [id number] #### [facility] [address] [place] [address] RAD - Ultrasound Reporton RAD - Ultrasound Report [id number] .[id number]:127 Normal [facility] Reportson 03-14-2020 Lab Reports [id number] .[id number]:127 Normal [facility] Ambulatory Clinical Summaryo n 02-29-2020 Ambulatory Clinical Summary {[id number]}CD:[id number] Normal [facility] Ambulatory Clinical Summary {[id number]}CD:[id number] Normal [facility] Obstetrics Office/Clinic Not jasmine 02-29-2020 Obstetrics Office/Clinic Note Chief Complaint OB 15w 2d, feeling flutters, occ. [place] Obstetric History History (1,0,0,2) # 1 Baby 1 Outcome Date: 2008 Outcome: Live Outcome or Result: Vaginal Gender: Female Gest Age: 41 weeks Wt: 3232 g [place] [facility] [place] Labor: -- Child's Name: -- Baby's Father: -- # 2 Baby 1 Outcome Date: 05/26/2013 Outcome: Live Outcome or Result: Vaginal Gender: Male Gest Age: 39 weeks 3 days Wt: 3390 g Hospital: -- [facility] Labor: 5 hr 55 min Child's Name: -- Baby's Father: -- Complications: None Complications: None EGA and CLIFFORD Gestational Age (EGA) and CLIFFORD * Note: EGA calculated as of 02/29/2020 CLIFFORD: 08/20/2020 EGA*: 15 weeks 2 days Type: Authoritative Method Date: 11/14/2019 Method: Last Menstrual Period (11/14/2019) Confirmation: Confirmed Description: -- Comments: -- Entered by: Caroline HILARIO on 01/11/2020 Other CLIFFORD Calculations for this : No additional CLIFFORD calculations have been recorded for this History of Present Illness ob visit Review of Systems Constitutional: No fever, No chills, No sweats, No weakness. Respiratory: No shortness of breath, No cough. Cardiovascular: No chest pain, Noperipheral edema. Physical Exam Vitals & Measurements T: 36.8 ?C (Temporal Artery) BP: 110/66 HT: 157 cm WT: 85.6 kg WT: 85.6 kg BMI: 34.73 Examinations Glucose Urine Dipstick: Negative Protein Urine Dipstick: Negative Weight Measured: 85.6 kg Systolic Blood Pressure: 110 mmHg Diastolic Blood Pressure: 66 mmHg D-EGA at Documented Date, Time: 15W 2D General Exam: Constitutional: alert, no acute distress, well hydrated, well developed, well nourished. Skin: normal color, no rashes, no lesions, no unusual bruising. Head: atraumatic, normocephalic. Eyes: EOM intact, no nystagmus, no icterus. Ears: no external deformities, gross hearing intact. Respiratory: no respiratory distress. Abdomen: gravid, nontender. Extremities: no deformities, no edema. Psych: oriented to all spheres, affect and mood appropriate, normal interaction, good eye contact. Assessment/Plan RTC 4 wks. Has anatomy US with GREGORIA on 03/22. Discussed weight gain and exercise in . 1. Supervision of high risk in second trimester (O09.92: Supervision of high risk , unspecified, second trimester) Ordered: Office Visit Level 4 Est 93588 TH 2. Obesity complicating , second trimester (O99.212: Obesity complicating , second trimester) Ordered: Office Visit Level 4 Est 05216 TH 3. 15 weeks gestation of (Z3A.15: 15 weeks gestation of ) Ordered: Office Visit Level 4 Est 03417 TH Follow-up With When Contact Information Funmilayo ESCOBEDO MD In [address] [place] [address]- Additional Instructions: Problem List/Past Medical History Ongoing Obesity complicating , second trimester Ovarian cyst Supervision of high risk in second trimester Historical Medications Multivitamins, 1 tab(s), Oral, Daily Allergies No Known Allergies Social History Alcohol - Denies Alcohol Use, 11/21/2009 DENIES, 02/29/2020 Substance Abuse - Denies Substance Abuse, 11/21/2009 DENIES, 02/29/2020 Tobacco - Denies Tobacco Use, 11/21/2009 Never (less than 100 in lifetime) Tobacco Use:. Never Smokeless Tobacco Use:., 02/29/2020 Family History Diabetes mellitus type 2: Mother and Father. Hypertension: Mother and Father. Lab Results Ambulatory Point of Care Results Glucose Urine Dipstick: Negative (02/29/20 15:46:00) Protein Urine Dipstick: Negative (02/29/20 15:46:00) Normal [facility] Comment on above: Result Comment: Elec tronically Signed By: Funmilayo ESCOBEDO MD\.br\Date and Time Signed: 02/29/20 16:25 EST Patient Educationon 02-28-19 Patient Education Exercise During It is possible to maintain a healthy exercise program throughout a . However, it is important to discuss exercising with your caregiver, so that the two of you may develop an appropriate exercise program. It is important to remember that exercise during should be use to maintain one's health and not to lose weight. Strenuous activities should be avoided as the may cause the baby to have difficulty obtaining proper amounts of oxygen. A proper exercise plan has many benefits including preparing you for the physical challenges of childbirth by strengthening the muscles that help with childbirth, reducing common backaches, alleviating constipation, improving posture, elevating mood, and promoting better sleep. If possible, begin exercising regularly before you become and continue through the duration of the . It is difficult for a woman to begin an exercise program later in a due to enlargement of the uterus and breasts and a shift in the center of gravity. exercise programs should be aimed at improving the muscles of the heart, back, pelvis, and abdomen. GENERAL GUIDELINES Every woman and is different; thus, the level of exercise you can do depends on your health, the conditions of the , and activity level before . For women who were sedentary before , walking is a good way to begin. Use caution while participation in sports during , because your center of gravity changes and may affect your balance or that require rapid movements. Always make sure to drink plenty of fluids to avoid dehydration, which may decrease blood flow to your baby. Avoid any activity that has the potential for trauma to the abdomen. If possible try to avoid high-altitude activities, which can deprive you and your baby of oxygen; this may cause premature labor. Talk with your caregiver. Performing a proper warm up and cool down are very important. It is important to start slowly and build up to more demanding exercises. Toward the end of an exercise session, gradually slow your activity. Perhaps try and work back through the exercises in reverse order. Check your pulse during peak activity, and discuss with your caregiver an appropriate range of heart rate for activity. Slow down your activity if your heart starts beating faster than the target range recommended by your health care provider. Do not exceed a heart rate of 140 beats per minute. Exercise that is too strenuous may speed up the baby's heartbeat to a dangerous level. In general, if you are able to carry on a conversation comfortably while exercising, your heart rate is probably within the recommended limits. Check to make sure. You should stop exercising and call your health care provider if you have any unusual symptoms, such as pain, uterine contractions, chest pain, bleeding or fluid leakage from the vagina, dizziness, or shortness of breath. Talk to your health caregiver if you have any questions. Document Released: 02/04/2006 Document Revised: 04/28/2012 Document Reviewed: 05/19/2009 ExitCare? Patient Information ?2014 [facility], [facility]. Family Medicine How a Baby Grows During begins when the male's sperm enters the female's egg. This happens in the fallopian tube and is called fertilization. The fertilized egg is called an embryo until it reaches 9 weeks from the time of fertilization. From 9 weeks until it is called a fetus. The fertilized egg moves down the tube into the uterus and attaches to the inside lining of the uterus. The woman is responsible for the growth of the embryo/fetus by supplying nourishment and oxygen through the blood stream and placenta to the developing fetus. The uterus becomes larger and pops out from the abdomen more and more as the fetus develops and grows. A normal lasts 280 days, with a range of 259 to 294 days, or 40 weeks. The is divided up into three trimesters: ? First trimester - 0 to 13 weeks. ? Second trimester - 14 to 27 weeks. ? Third trimester - 28 to 40 weeks. The day your baby is supposed to be born is called estimated date of confinement (EDC) or estimated date of delivery (CLIFFORD). GROWTH OF THE BABY MONTH BY MONTH 1. First Month: The fertilized egg attaches to the inside of the uterus and certain cells will form the placenta and others will develop into the fetus. The arms, legs, brain, spinal cord, lungs, and heart begin to develop. At the end of the first month the heart begins to beat. The embryo weighs less than an ounce and is ? inch long. 2. Second Month: The bones can be seen, the inner ear, eye lids, hands and feet form and genitals develop. By the end of 8 weeks, all of the major organs are developing. The fetus now weighs less than an ounce and is one inch (2.54 cm) long. 3. Third Month: Teeth buds appear, all the internal organs are forming, bones and muscles begin to grow, the spine can flex an (more content not included)... Normal [facility] Physician Referralon 021 Physician Referral [id number] .[id number]:127 Normal [facility] RAD - Ultrasound Reporton RAD - Ultrasound Report [id number] .[id number]:127 Normal [facility] Physician Referralon 020 Physician Referral [id number] .[id number]:127 Normal [facility] Physician Referralon 020 Physician Referral [id number] .[id number]:127 Normal [facility] Chlamydia/Gonococcus, NAAon 01-30-2020 C. trachomatis rRNA KAIDEN+probe Ql (Unsp spec) Negative Invalid Interpretation Code Negative [facility] Comment on above: Performed By: #### 2 [id number], [id number], [id number] #### [facility] [address] [place] [address] N. gonorrhoeae rRNA KAIDEN+probe Ql (Unsp spec) Negative Invalid Interpretation Code Negative [facility] Comment on above: Result Comment: Perf ormed at: =G [facility] [address] [place], [place] [id number] MD Kehinde Rivero Performed By: #### 2 [id number], [id number] #### [facility] [address] [place] [address] Coding Summary.on 01-29-2020 Coding Summary. CODING DATE: 01/29/2020 FINAL [facility] DSC STATUS: Home (Routine DC) PAYOR: Self Pay ADMIT DX: REASON FOR VISIT DX: O09.91 Supervision of high risk , unspecified, first trimester FINAL DX: PRINCIPAL: O09.91 Supervision of high risk , unspecified, first trimester SECONDARY: PYMT PROC APC STAT DESCRIPTION DOCTOR NAME DATE NOTE: The code number assigned matches the documented diagnosis and / or procedure in the patient's chart. However, the narrative phrase printed from the coding software may appear abbreviated, or result in slightly different terminology. Coded By: Thu Garcia Date Saved: 01/29/2020 01:52 pm Normal [facility] Ambulatory Clinical Summaryo n 01-27-2020 Ambulatory Clinical Summary {[id number]}CD:[id number] Normal [facility] Obstetrics Office/Clinic Not jasmine 01-27-2020 Obstetrics Office/Clinic Note Chief Complaint 1st OB 10 Weeks 4 days. Some Nausea. Obstetric History History (1,0,0,2) # 1 Baby 1 Outcome Date: 2008 Outcome: Live Outcome or Result: Vaginal Gender: Female Gest Age: 41 weeks Wt: 3232 g [place] [facility] [place] Benny Labor: -- Child's Name: -- Baby's Father: -- # 2 Baby 1 Outcome Date: 05/26/2013 Outcome: Live Outcome or Result: Vaginal Gender: Male Gest Age: 39 weeks 3 days Wt: 3390 g Hospital: -- [facility] Labor: 5 hr 55 min Child's Name: -- Baby's Father: -- Complications: None Complications: None EGA and CLIFFORD Gestational Age (EGA) and CLIFFORD * Note: EGA calculated as of 01/27/2020 CLIFFORD: 08/20/2020 EGA*: 10 weeks 4 days Type: Authoritative Method Date: 11/14/2019 Method: Last Menstrual Period (11/14/2019) Confirmation: Confirmed Description: -- Comments: -- Entered by: Caroline HILARIO on 01/11/2020 Other CLIFFORD Calculations for this : No additional CLIFFORD calculations have been recorded for this History of Present Illness 29 Years old patient here for first OB visit. LMP 11-14-19. Sure of dates, not on contraception at time of conception. She had some light bleeding a couple of weeks ago. On 01-18-20 called ER because she was hit in abdomen pretty hard. Had no bleeding or cramping since then. First daughter born with congenital lymphedema. Genetic testing negative with son. Both full term vaginal deliveries. She has not been as tired anymore. She feels she needs to eat all of the time or she feels morales and anxious. She will get a hot sensation in her stomach ad has to eat small amounts every 2 hours. Previously she had been eating twice a day. She is concerned as she was around 130lbs with her first 2 pregnancies and is around 180 lbs now. No first degree relatives with diabetes. No recent travel. Taking vitamins. Denies smoking, alcohol, or drug use. Last pap 2-13-18, NILM. 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 Review of Systems Constitutional: No fever, No chills, No headache. Skin: No rash, No lesions. Respiratory: No shortness of breath. Cardiovascular: No peripheral edema. Gastrointestinal: No nausea, No vomiting, Yesheartburn, No diarrhea, Yes constipation. Genitourinary: No dysuria. Gynecology: No abnormal vaginal discharge, No vaginal itching/burning, No bleeding, No leaking of fluid. Physical Exam Vitals & Measurements BP: 118/76 HT: 157.0 cm HT: 157 cm WT: 84.8 kg WT: 84.8 kg BMI: 34.4 Examinations Glucose Urine Dipstick: Negative Protein Urine Dipstick: Negative Weight Measured: 84.8 kg Systolic Blood Pressure: 118 mmHg Diastolic Blood Pressure: 76 mmHg D-EGA at Documented Date, Time: 10W 4D Labor Signs/Symptoms: None Baby A - FHR: 161 bpm Next Appointment: 4 week(s) Antepartum Comment: first OB. . obesity BMI 34, hx baby with congenital lymphedema. General Exam: Constitutional: alert, no acute distress, well hydrated, well developed, well nourished. Skin: normal color, no rashes, no lesions, no unusual bruising. Head: atraumatic, normocephalic. Eyes: EOM intact, no injection, no nystagmus, no icterus. Ears: no external deformities, gross hearing intact. Respiratory: no respiratory distress. Abdomen: nondistended, nontender, no guarding. Spine: normal mobility, no deformities. Extremities: no deformities, no clubbing, no cyanosis, no edema. Neurol: normal, cranial nn II-XII grossly intact, sensation intact, motor intact, station & gait normal. Psych: oriented to all spheres, affect and mood appropriate, normal interaction, good eye contact. Pelvic Exam: Vulva: normal appearance, normal hair distribution, no lesions or masses. Urethra: normal, no masses, non-tender, no discharge. Bladder: normal, non-tender, non-distended. Vagina: normal, rugated, physiologic discharge, no lesions, no masses, adequate pelvic support. Cervix: normal, midposition, no motion tenderness, no lesions. Uterus: smooth, mobile, non-tender, adequate support. Adnexa: normal, no masses, mobile, nontender. Assessment/Plan 1. Obesity complicating , first trimester (O99.211: Obesity complicating , first trimester) Recommend limiting weight gain to 11-20lbs in based on BMI by IOM. Discussed healthy diet focusing on fruits, vegetables, lean proteins, whole grains, and limiting sugars and empty calories. Recommend exercising 30 minutes per day at least 5 days per week. 2. Supervision of high risk in first trimester (O09.91: Supervision of high risk , unspecified, first trimester) New OB education provided. Folder given. Discussed safe medications in , nutrition, travel, bloodwork, genetic screening, interval of appointments, ultrasounds, childbirth classes, how to reach us during or after office hours. Referral to M and will defer to them for genetic testin (more content not included)... Normal [facility] Comment on above: Result Comment: Elec tronically Signed By: Caroline HILARIO\.rosey\Date and Time Signed: 01/27/20 14:40 EST Patient Educationon 01-27-20 Patient Education Family Medicine How a Baby Grows During begins when the male's sperm enters the female's egg. This happens in the fallopian tube and is called fertilization. The fertilized egg is called an embryo until it reaches 9 weeks from the time of fertilization. From 9 weeks until it is called a fetus. The fertilized egg moves down the tube into the uterus and attaches to the inside lining of the uterus. The woman is responsible for the growth of the embryo/fetus by supplying nourishment and oxygen through the blood stream and placenta to the developing fetus. The uterus becomes larger and pops out from the abdomen more and more as the fetus develops and grows. A normal lasts 280 days, with a range of 259 to 294 days, or 40 weeks. The is divided up into three trimesters: ? First trimester - 0 to 13 weeks. ? Second trimester - 14 to 27 weeks. ? Third trimester - 28 to 40 weeks. The day your baby is supposed to be born is called estimated date of confinement (EDC) or estimated date of delivery (CLIFFORD). GROWTH OF THE BABY MONTH BY MONTH 1. First Month: The fertilized egg attaches to the inside of the uterus and certain cells will form the placenta and others will develop into the fetus. The arms, legs, brain, spinal cord, lungs, and heart begin to develop. At the end of the first month the heart begins to beat. The embryo weighs less than an ounce and is ? inch long. 2. Second Month: The bones can be seen, the inner ear, eye lids, hands and feet form and genitals develop. By the end of 8 weeks, all of the major organs are developing. The fetus now weighs less than an ounce and is one inch (2.54 cm) long. 3. Third Month: Teeth buds appear, all the internal organs are forming, bones and muscles begin to grow, the spine can flex and the skin is transparent. Finger and toe nails begin to form, the hands develop faster than the feet and the arms are longer than the legs at this point. The fetus weighs a little more than an ounce (0.03 kg) and is 3? inches (8.89cm) long. 4. Fourth Month: The placenta is completely formed. The external sex organs, neck, outer ear, eyebrows, eyelids and fingernails are formed. The fetus can hear, swallow, flex its arms and legs and the kidney begins to produce urine. The skin is covered with a white waxy coating (vernix ) and very thin hair (lanugo ) is present. The fetus weighs 5 ounces (0.14kg) and is 6 to 7 inches (16.51cm) long. 5. Fifth Month: The fetus moves around more and can be felt for the first time (called quickening ), sleeps and wakes up at times, may begin to suck its finger and the nails grow to the end of the fingers. The gallbladder is now functioning and helps to digest the nutrients, eggs are formed in the female and the testicles begin to drop down from the abdomen to the scrotum in the male. The fetus weighs ? to 1 pound (0.45kg) and is 10 inches (25.4cm) long. 6. Sixth Month: The lungs are formed but the fetus does not breath yet. The eyes open, the brain develops more quickly at this time, one can detect finger and toe prints and thicker hair grows. The fetus weighs 1 to 1? pounds (0.68kg) and is 12 inches (30.48cm) long. 7. Seventh Month: The fetus can hear and respond to sounds, kicks and stretches and can sense changes in light. The fetus weighs 2 to 2? pounds (1.13kg) and is 14 inches (35.56cm) long. 8. Eight Month: All organs and body systems are fully developed and functioning. The bones get harder, taste buds develop and can taste sweet and sour flavors and the fetus may hiccup now. Different parts of the brain are developing and the skull remains soft for the brain to grow. The fetus weighs 5 pounds (2.27kg) and is 18 inches (45.75cm) long. 9. Ninth Month: The fetus gains about a half a pound a week, the lungs are fully developed, patterns of sleep develop and the head moves down into the bottom of the uterus called vertex. If the buttocks moves into the bottom of the uterus, it is called a breech. The fetus weighs 6 to 9 pounds (2.72 to 4.08kg) and is 20 inches (50.8cm) long. You should be informed about your , yourself and how the baby is developing as much as possible. Being informed helps you to enjoy this experience. It also gives you the sense to feel if something is not going right and when to ask questions. Talk to your caregiver when you have questions about your baby or your own body. Document Released: 07/23/2008 Document Revised: 04/28/2012 Document Reviewed: 07/23/2008 ExitCare? Patient Information ?[address] [facility] Patient Letter [facility] January 27, [address] MY[address] [place] [address] [place] [address] MYA MYLES 1990 Our patient Mya Myles is with a single IUP. EDC is 08/20/[address] [address] [facility] Coding Summary.on 01-22-2020 Coding Summary. CODING DATE: 01/22/2020 FINAL [facility] STATUS: Home (Routine DC) PAYOR: Self Pay ADMIT DX: REASON FOR VISIT DX: O20.9 Hemorrhage in early , unspecified FINAL DX: PRINCIPAL: O20.9 Hemorrhage in early , unspecified SECONDARY: PYMT PROC APC STAT DESCRIPTION DOCTOR NAME DATE NOTE: The code number assigned matches the documented diagnosis and / or procedure in the patient's chart. However, the narrative phrase printed from the coding software may appear abbreviated, or result in slightly different terminology. Coded By: Gloria Fleming Date Saved: 01/22/2020 08:46 am Normal [facility] 1st Trimesteron 01-11-2020 1st Trimester Exam Date/Time: 01/07/2020 10:19 EST Reason for Exam: Vaginal bleeding Report IMPRESSION: EARLY SINGLE INTRAUTERINE GESTATION. Composite Ultrasound Age: 8 weeks, 2 days. No subchorionic hemorrhage. CLINICAL HISTORY: Vaginal bleeding. LMP: 11/14/2019 CLIFFORD from LMP: 08/20/2020 Gestational Age by LMP: 7 weeks, 5 days CLIFFORD from average ultrasound age: 0608/16/2020 Composite Ultrasound Age: 8 weeks, 2 days 3 para 2 COMPARISON: None. COMMENT: Transabdominal images were obtained. The uterus measurements and an estimated volume are: Uterus Length: 14.1 cm Uterus Width: 7.1 cm Uterus Height: 5.1 cm Uterus Volume: 267.1 cm3 The uterus is otherwise unremarkable. A single gestational sac is identified within the uterine cavity. A yolk sac and small pole are identified within the gestational sac. The crown-rump length and the corresponding gestational age +/- 1 week are: [place] Rump Length: 1.8 cm Composite Ultrasound Age: 8 weeks, 2 days CLIFFORD from average ultrasound age: 0608/16/2020 There is no evidence of subchorionic hemorrhage. The heart rate is measured at 169 bpm. The right ovary measurements and estimated volume are: Right Ovary Length: 2.6 cm Right Ovary Width: 1.9 cm Right Ovary Height: 1.3 cm Right Ovary Volume: 3.3 cm3 The left ovary measurements and estimated volume are: Left Ovary Length: 4.6 cm Left Ovary Width: 2.9 cm Left Ovary Height: 2.3 cm Left Ovary Volume: 16.1 cm3 There are a few small follicular ovarian cysts. No large cysts and no adnexal mass are noted. There is no free fluid in the cul-de-sac. There is placenta forming Report posteriorly. FINAL REPORT Dictated: 01/11/2020 11:44 am Julia Sánchez MD Signed (Electronic Signature): 01/11/2020 11:44 am Signed by: Julia Sánchez MD Transcribed by: ERMELINDA Technologist: ADEN Technical Comments Regular History 3 Para 2 SAB 1 Transabdominal Ultrasound Performed Size = Dates Normal [facility] Ambulatory Clinical Summaryo n 01-07-2020 Ambulatory Clinical Summary {[id number]}CD:[id number] Normal [facility] Ambulatory Clinical Summaryo n 01-06-2020 Ambulatory Clinical Summary {[id number]}CD:[id number] Normal [facility] BhCG Quanton 01-06-2020 HCG.beta subunit Qn [id number] m[IU]/mL High 1-3 [facility] Comment on above: Result Comment: GEST ATIONAL AGE HCG RANGE (mIU/mL) NON- <1-3 0.2-1 WEEKS 5-50 1-2 WEEKS 50-500 2-3 WEEKS 100-5,000 3-4 WEEKS 500-10,000 4-5 WEEKS 1,000-50,000 5-6 WEEKS 10,000-100,000 6-8 WEEKS 15,000-200,000 8-12 WEEKS 10,000-100,000 Performed By: #### 2 [id number], [id number], [id number] #### [facility] [address] [place] [id number] Consent for Treatmenton 12-19 Consent for Treatment [id number] .[id number]:127 Normal [facility] Gynecology Office/Clinic Not jasmine 01-06-2020 Gynecology Office/Clinic Note Chief Complaint Confirmation of , Nausea Some Vomitting. Has had Dark pink Spotting, First OB paper work added . Obstetric History History (1,0,0,2) # 1 Baby 1 Outcome Date: 2008 Outcome: Live Outcome or Result: Vaginal Gender: Female Gest Age: 41 weeks Wt: 3232 g [place] [facility] [place] [facility] Labor: -- Child's Name: -- Baby's Father: -- # 2 Baby 1 Outcome Date: 05/26/2013 Outcome: Live Outcome or Result: Vaginal Gender: Male Gest Age: 39 weeks 3 days Wt: 3390 g Hospital: -- [facility] Labor: 5 hr 55 min Child's Name: -- Baby's Father: -- Complications: None Complications: None History of Present Illness 29 y/o NEW here for confirmation of , accompanied by significant other. LMP ether 10/15 or 11/13. 10/15 was a normal period for her, 11/13 was more spotting for her. Pt had IUD removed end of July, changed to pill for August and September and discontinued due to mood problems. She has been having some pink spotting. 2 weeks ago had very light pink tinge discharge. 3 days ago had dark pink. Blood type A+. Cramping stopped about 2 weeks ago. She has a lot of nausea, not vomiting. Crackers and 7up is helping. She feels extremely tired. First baby has congenital lymphedema. She has had genetic testing done, all negative results. Hx vaginal delivery x2. First baby went 42 weeks. She is concerned as she feels she has gained a lot of weight this year, approx 30lbs. Review of Systems Constitutional: No fever, No chills, No headache. Skin: No rash, No lesions. Respiratory: No shortness of breath. Cardiovascular: No peripheral edema. Gastrointestinal: Yes nausea, No vomiting, Noheartburn, No diarrhea, No constipation. Genitourinary: No dysuria. Gynecology: No abnormal vaginal discharge, No vaginal itching/burning, Yes bleeding. Physical Exam Vitals & Measurements T: 36.9 ?C (Temporal Artery) BP: 122/76 HT: 157 cm HT: 157.0 cm WT: 82.7 kg WT: 82.7 kg BMI: 33.55 General Exam: Constitutional: alert, no acute distress, well hydrated, well developed, well nourished. Skin: normal color, no rashes, no lesions, no unusual bruising. Head: atraumatic, normocephalic. Eyes: EOM intact, no nystagmus, no icterus. Ears: no external deformities, gross hearing intact. Respiratory: no respiratory distress. Extremities: no deformities, no clubbing, no cyanosis. Neurol: normal, cranial nn II-XII grossly intact, sensation intact, motor intact, station & gait normal. Psych: oriented to all spheres, affect and mood appropriate, normal interaction, good eye contact. Assessment/Plan 1. First trimester bleeding (O20.9: Hemorrhage in early , unspecified) Plan to check quant levels and based on results order subsequent US. Plan to refer to [facility] d/t hx child with congenital lymphedema. Recommend for pt to continue on vitamins and can add vitamin B6 3 times per day to help with nausea. Recommend small frequent meals. Discussed healthy diet focusing on fruits, vegetables, lean proteins, whole grains, and limiting sugars and empty calories. Recommend exercising 30 minutes per day at least 5 days per week. Ordered: Beta hCG Quantitative Beta hCG Quantitative Progesterone Level Positive test (Z32.01: Encounter for test, result positive) Ordered: HCG, Urine POC 21021 Follow-up No qualifying data available Problem List/Past Medical History Ongoing Ovarian cyst Historical Medications Multivitamins, 1 tab(s), Oral, Daily Allergies No Known Allergies Social History Alcohol - Denies Alcohol Use, 11/21/2009 Substance Abuse - Denies Substance Abuse, 11/21/2009 Tobacco - Denies Tobacco Use, 11/21/2009 Never (less than 100 in lifetime) Tobacco Use:., 01/06/2020 Family History Diabetes mellitus type 2: Mother and Father. Hypertension: Mother and Father. Lab Results Ambulatory Point of Care Results HCG, Urine: Positive (01/06/20 09:31:00) Normal [facility] Comment on above: Result Comment: Elec tronically Signed By: Caroline HILARIO\.rosey\Date and Time Signed: 01/06/20 10:17 EST Progesteroneon 01-06-2020 Progesterone [Mass/Vol] 18.00 ng/mL Invalid Interpretation Code [facility] Comment on above: Result Comment: REFE RENCE RANGE Males 0.14-2.06 ng/mL Non- Females Follicular 0.10-0.60 ng/mL Luteal 3.00-17.5 ng/mL Midluteal 3.30-18.6 ng/mL Post-Menopausal 0.10-0.40 ng/mL First Trimester 8.30-66.5 ng/mL Second Trimester 18.9-66.1 ng/mL Third Trimester 35.8-312.4 ng/mL Performed By: #### 2 [id number], [id number], [id number] #### [facility] [address] [place] [address] Coding Summary.on 12-14-2019 Coding Summary. CODING DATE: 12/14/2019 FINAL [facility] STATUS: Home (Routine DC) PAYOR: Self Pay ADMIT DX: REASON FOR VISIT DX: T18.9XXA Foreign body of alimentary tract, part unspecified, initial encounter FINAL DX: PRINCIPAL: O9A.211 Injury, poisoning and certain other consequences of external causes complicating , first trimester SECONDARY: T18.9XXA Foreign body of alimentary tract, part unspecified, initial encounter Y92.[address] the [address] of occurrence of the external cause Z3A.01 Less than 8 weeks gestation of PYMT PROC APC STAT DESCRIPTION DOCTOR NAME DATE NOTE: The code number assigned matches the documented diagnosis and / or procedure in the patient's chart. However, the narrative phrase printed from the coding software may appear abbreviated, or result in slightly different terminology. Coded By: Thu Garcia Date Saved: 12/14/2019 02:13 pm Normal [facility] ED Note-Physicianon 12-14-19 ED Note-Physician Basic Information Time Seen: Kate MESA, Gege Lechuga 12/13/2019 19:14 Chief Complaint pt to ED with c/o consuming plastic from a burger at [employer] today. pt is . denies complaints History of Present Illness This patient presents emergency department after ingesting some type of plastic while eating a sandwich at [employer]. She states she was at [employer] restaurant. She bit down on something hard and swallowed it. She states the next bite there was something hard again and she opened a sandwich and there was a piece of plastic in it. She believes she also swallowed a piece of plastic. She came in because she is concerned because she is 6 weeks she does not want any danger to the fetus. She denies any nausea or vomiting. Rest review of systems unremarkable. Review of Systems 10 point ROS negative except for pertinent positives and negatives as listed in the HPI Physical Exam Vitals & Measurements T: 37.0 ?C (Oral) HR: 101(Peripheral) RR: 18 BP: 141/87 SpO2: 98% HT: 157 cm HT: 157.0 cm WT: 79 kg WT: 79.0 kg BMI: 32.05 Vital signs and nursing notes reviewed. General: Awake, alert, NAD. HEENT: Head is normocephalic, atraumatic. PERRL. EOMI. Sclerae are anicteric. External ears are normal. TMs are intact bilaterally. Canals are clear bilaterally. Nares are patent bilaterally. Oral mucosa is pink and moist. No lesions noted. Tongue protrudes in midline. Uvula rises with phonation. Neck is supple, no no palpable adenopathy. No JVD. Trachea is midline. Thorax: Symmetrical rise and fall Lungs: Clear to auscultation throughout all hughes, no wheezes, no crackles Heart: Regular rate and rhythm. No murmur, gallop, or rub Abdomen: No tenderness on palpation. Bowel sounds are present active and normal. No organomegaly. No palpable masses. No CVA tenderness. Extremities: Motor sensory pulses intact x4 extremities. No lower extremity edema. Skin: No lesions, rashes, ulcerations. No bruising or petechiae. Color appropriate, warm and dry Neuro: No oriented x3, cranial nerves II through XII are grossly intact with no focal neuro deficits Psych: Mood and affect are normal Medical Decision Making accidental ingested foreign body Assessment/Plan 1. Ingestion of foreign body (T18.9XXA: Foreign body of alimentary tract, part unspecified, initial encounter) This patient was interviewed and examined. I have not discussed the diagnosis with the patient and her . I discussed with them to eat a high-fiber diet to keep her stools bulky so that she passes any potential piece of plastic for her bowels. I have instructed the patient if she has any worsening or change in her symptoms that she should return to the emergency department immediately. She can follow-up with her primary care physician. The patient will be discharged to home in good condition with stable vital signs. She is to return to the emergency department for any further problems or concerns. Disposition Plan Patient Discharge Condition stable Discharge Disposition home Discharge Prescription List Prescriptions No active prescription medications Follow-up With When Contact Information Chao Blackwell In 3 days 12/16/2019 EDT [address] [place] [address]- Business (1) Additional Instructions: Patient Education Swallowed Foreign Body, Adult, Dlea-oq-Yrsp Problem List/Past Medical History Ongoing Ovarian cyst Historical Medications Inpatient No active inpatient medications Home Bactroban 2% Cream, 1 ced, Topical, TID Woodhull 325 mg-5 mg oral tablet, 1 tab(s), Oral, q4hr, PRN Allergies No Known Allergies Social History Alcohol - Denies Alcohol Use, 11/21/2009 Substance Abuse - Denies Substance Abuse, 11/21/2009 Tobacco - Denies Tobacco Use, 11/21/2009 Family History Diabetes mellitus type 2: Mother and Father. Hypertension: Mother and Father. Lab Results No qualifying data available. Diagnostic Results No qualifying data available. [facility] Comment on above: Result Comment: Elec tronically Signed By: Gege Love PA-C\.br\Date and Time Signed: 12/13/19 19:34 EDT\.br\Electronically Co-Signed By: Ed Jerome MD\.br\Date and Time Co-Signed: 12/14/19 05:14 EDT Consent for Treatmenton 11-19 Consent for Treatment [id number] .[id number]:127 [facility] Discharge Instructionson Discharge Instructions [id number]:127 Normal [facility] ED Clinical Summaryon 2019 ED Clinical Summary [facility] [address], [place] [id number] ED Clinical Summary Person Information Name: MYA MYLES [place] Age: 29 Years : 1990 Sex: Female Language: Algerian PCP: Chao Blackwell III, DO Marital Status: Single MRN: Visit Id: Visit Reason: Medical screening exam; CONSUMED PLASTIC IN A BURGER FROM [employer], APRX 6-8 WEEKS Speciality: Acuity: 4 Enc Type: Emergency Med Service: Emergency Arrival: 12/13/2019 18:29:24 Discharge: 12/13/2019 19:43:58 LOS: 000 01:14 Checkin: 12/13/2019 18:29:24 Checkout: 12/13/2019 19:43:58 Dispo Type: Home (Routine DC) EVENTS: Event Name Event Status Request Date/Time Start Date/Time Complete Date/Time Arrive Complete 12/13/2019 18:29:24 12/13/2019 18:29:24 12/13/2019 18:29:24 Document Home Meds Request 12/13/2019 18:29:24 Triage Complete 12/13/2019 18:29:24 12/13/2019 18:44:29 12/13/2019 18:44:29 Bed Assign Complete 12/13/2019 18:41:44 12/13/2019 18:41:44 12/13/2019 18:41:44 Dr Exam Complete 12/13/2019 18:41:44 12/13/2019 19:14:05 12/13/2019 19:14:05 RN Exam Complete 12/13/2019 18:41:44 12/13/2019 18:48:18 12/13/2019 18:48:18 Registration Complete 12/13/2019 19:06:40 12/13/2019 19:06:40 12/13/2019 19:06:40 Reg Complete Request 12/13/2019 19:06:40 Reg Bed Request Complete 12/13/2019 19:06:40 12/13/2019 19:06:40 12/13/2019 19:06:40 Registration Request 12/13/2019 19:14:05 Discharge Complete 12/13/2019 19:31:23 12/13/2019 19:44:03 12/13/2019 19:44:03 Transfer Complete 12/13/2019 19:44:03 12/13/2019 19:44:03 12/13/2019 19:44:03 ADDRESS: [address] [place] [address] [address] [place] [id number] PHYS DOC NOTES: MEDICAL INFORMATION: Prescriptions Given: Medications to Continue with No Changes Other Medications acetaminophen-hydroco done (Woodhull 325 mg-5 mg oral tablet) 1 Tablets By Mouth every 4 hours as needed for pain. Refills: 0. mupirocin topical (Bactroban 2% Cream) 1 Application Topical 3 times a day. Refills: 0. PATIENT EDUCATION INFORMATION: Instructions: Swallowed Foreign Body, Adult, Nnuc-au-Uaiw Follow up: With: Address: When: Chao Blackwell [address] [place] [address], [facility], [facility] [place] [address] Business (1) In 3 days 12/16/2019 DIAGNOSIS: 1:Ingestion of foreign body Normal [facility] ED Patient Education Noteon 12-13-2019 ED Patient Education Note Family Medicine Swallowed Foreign Body, Adult You have swallowed an object (foreign body). The object may get stuck in the food pipe (esophagus). A stuck object can cause pain and trouble swallowing. In some cases, a doctor may need to remove the object. If the object keeps moving and reaches the stomach, it usually does not cause problems. Certain medicines and illegal drugs can be life-threatening if swallowed. HOME CARE ? Ask your doctor when it is safe for you to start eating again. Drink liquids and eat soft foods until you feel better. ? When you go back to eating normal foods: ? Cut food into small pieces. ? Remove small bones from food. ? Remove large seeds and pits from fruit. ? Chew your food well. ? Do not talk, laugh, or do physical activity while eating or swallowing. GET HELP RIGHT AWAY IF: ? You have trouble breathing, chest pain, or you cannot control your cough. ? You have a temperature by mouth above 102? F (38.9? C), not controlled by medicine. ? You cannot eat or drink, or you feel food is stuck in your throat. ? You are choking, or you cannot stop drooling. ? You have belly (abdominal) pain, you throw up (vomit) blood, or you are bleeding from the place where poop comes out (rectum). MAKE SURE YOU: ? Understand these instructions. ? Will watch your condition. ? Will get help right away if you are not doing well or get worse. Document Released: 05/22/2011 Document Revised: 04/28/2012 Document Reviewed: 05/22/2011 ExitCare? Patient Information ?2014 [employer]. This information is not intended to replace advice given to you by your health care provider. Make sure you discuss any questions you have with your health care provider. Normal [facility] ED Patient Summaryon 020 ED Patient Summary [facility] [address], [place] [address] Patient Discharge Instructions Person Information Name: MYA MYLES Age: 29 Years Arrival Date: 12/13/2019 18:29:24 Discharge Diagnosis: 1:Ingestion of foreign body Primary Care Physician: Chao Blackwell III, DO Provider Information Primary Provider: Advanced Electrical Project Manager:None The exam and treatment you received in the Emergency Department were for an urgent problem and are not intended as complete care. It is important that you follow up with a doctor, nurse practitioner, or physician?s assistant merchandise manager for ongoing care. If your symptoms become worse or you do not improve as expected and you are unable to reach your usual health care provider, you should return to the Emergency Department. We are available 24 hours a day. MYA MYLES has been given the following list of patient education materials, prescriptions and follow-up instructions: Follow-up Instructions: With: Address: When: Chao Rishi [address] [place] [address], [place], [place] [id number] Business (1) In 3 days 12/16/2019 In the event that this physician does not participate in your insurance network, please consult with your insurance company to find a nearby participating provider. Patient Education Materials: Swallowed Foreign Body, Adult, Dhge-vy-Hpbo A MESSAGE TO ALL PATIENTS REGARDING OPIOIDS PRESCRIPTION OPIOIDS: WHAT YOU NEED TO KNOW Prescription opioids can be used to help relieve oozhrscb-yy-[id number] pain and are often prescribed following a surgery or injury, or for certain health conditions. These medications can be an important part of the treatment but also come with serious risks. It is important to work with your healthcare provider to make sure you are getting the safest, most effective care. WHAT ARE THE RISKS AND SIDE EFFECTS OF OPIOID USE? Prescription opioids carry serious risks of addiction and overdose, especially with prolonged use. An opioid overdose, often marked by slowed breathing, can cause sudden . The use of prescription opioids can have a number of side effects as well, even when taken as directed: ? Tolerance?meaning you might need to take more of the medication for the same pain relief ? Physical dependence?meaning you have symptoms of withdrawal when a medication is stopped ? Increased sensitivity to pain ? Constipation ? Nausea, vomiting, and dry mouth ? Sleepiness and dizziness ? Confusion ? Depression ? Low levels of testosterone that can result in lower sex drive, energy, and strength ? Itching and sweating RISKS ARE GREATER WITH: ? History of drug misuse, substance use disorder, or overdose ? Mental health conditions (such as depression or anxiety) ? Sleep apnea ? Older age (65 years and older) ? Avoid alcohol while taking prescription opioids. Also, unless specifically advised by your health care provider, medications to avoid include: ? Benzodiazepines (such as Xanax or Valium) ? Muscle relaxants (such as Soma or Flexeril) ? Hypnotics (such as Ambien or Lunesta) ? Other prescription opioids KNOW YOUR OPTIONS Talk to your health care provider about ways to manage your pain that don?t involve prescription opioids. Some of these options may actually work better and have fewer risks and side effects. Options may include: ? Pain relievers such as acetaminophen, ibuprofen, and naproxen ? Some medication that are also used for depression or seizures ? Physical therapy and exercise ? Cognitive behavioral therapy, a psychological, goal-directed approach, in which patients learn how to modify physical, behavioral, and emotional triggers of pain and stress. IF YOU ARE PRESCRIBED OPIOIDS FOR PAIN: ? Never take opioids in greater amounts or more often than prescribed. ? Follow up with your primary health care provider. o Work together to create a plan on how to manage your pain. o Talk about ways to help manage your pain that don?t involve prescription opioids. o Talk about any and all concerns and side effects. ? Help prevent misuse and abuse o Never sell or share prescription opioids. o Never use another person?s prescription opioids. ? Store prescription opioids in a secure place and out of reach of others (this may include visitors, children, friends, and family). ? Safely dispose of unused prescription opioids: Find your community drug take-back program or your pharmacy mail-back program, or flush them down the toilet, following guidance from the Food and Drug Administration (www.fda.gov/Drugs/Re sourcesForYou). ? Visit www.cdc.gov/drugoverd ose to learn about the risks of opioids abuse and overdose. ? If you believe you may be struggling with addiction, tell your health hospice care transitions coordinator and ask for guidance or call [facility] National Helpline at 2-274-939-QTTB. (more content not included)... [facility] Encounters Encounter Date Encounter Type Care Provider Facility Start: 07-30-2023 End: 07-30-2023 ambulatory LADONNA CEBALLOS Not Available Start: 07-08-2023 End: 07-08-2023 ambulatory ROCK HARRISON Not Available Start: 06-07-2023 End: 06-07-2023 ambulatory ROCK HARRISON Not Available Start: 05-17-2022 End: 05-18-[address] IRENE ZUÑIGA Facility:[facility] Start: 05-16-2022 End: 05-16-[address] ROCK HARRISON . Facility:[facility] Start: 02-16-2020 End: 02-16-2020 Subsequent hospital visit by physician Njama Hilliard Work Phone: [facility] [address] Plan of Treatment Date Care Activity Detail Author Start: 10-20-2019 Influenza vaccination Flu vaccine (# 1) [place], [place] Payers Date Payer Category Payer Unknown [id number] 1990 Unknown [id number] 2.16.84 [id number] 1990 Unknown [id number] 2.16.84 [id number] 1990 Unknown [id number] 2.16.84 [id number] 1990 Unknown [id number] 2.16.84 [id number] 1990 Unknown [id number] 2.16.84 [id number] 1959 Unknown [id number] Social History Date Type Detail Facility Tobacco smoking status NHIS Unknown if ev er smoked [place], [place] Sex Assigned At Not on file [place] Discharge summary note 08-16-2020 Note Date & Type Note Facility 08-16-2020 Note DATE OF DISCHARGE: 0 08/05/2020 The patient is without complaints. Positive flatus. Positive void. Vital signs are stable, afebrile. Breasts non-tender, non-pathologic. Abdomen fundus firm and below the umbilicus. She has scant lochia. The perineum is intact. The patient is ready for release. Good instructions are given. The patient is to return to my office in six weeks. She is given the following prescriptions for her home use: Motrin and vitamins. DISCHARGE DIAGNOSIS: Vaginal delivery. Course: Relatively uncomplicated. Intrapartum Course: Spontaneous vaginal delivery of an 8 pound 7 ounce female infant with Apgars of 8 and 9, nuchal cord reduced x1, secondary lobe on the placenta noted, otherwise without complications. Course: Without complications. Sukhdeep Schaffer MD, [facility] Dictated: 08/13/2020 #[id number] Typed: 08/15/2020 #[id number] cc: Sukhdeep Schaffer MD, [facility] Comment on above: Result Comment: Elec tronically Signed By: Karime MACEDO, Sukhdeep Olivera\.br\Date and Time Signed: 08/16/20 08:09 EDT Clinical Note 08-05-2020 Note Date & Type Note Facility 08-05-2020 Note The following Patien t Education Materials have been given to the patient: [facility] History and physical note 08-04-2020 Note Date & Type Note Facility 08-04-2020 Note Patient: LAZARO MYLES Age: 30 years Sex: Female : 1990 Associated Diagnoses: None Author: Funmilayo ESCOBEDO MD Basic Information Reason for admission: Scheduled induction. Maternal complications: Obesity, depression. Informed consent obtained for procedure. Gestational Age: Gestational Age (EGA) and CLIFFORD * Note: EGA calculated as of 08/04/2020 CLIFFORD: 08/11/2020 EGA*: 39 weeks Type: Authoritative Method Date: 02/16/2020 Method: Ultrasound (02/16/2020) Confirmation: Confirmed Description: -- Comments: -- Entered by: Caroline HILARIO on 04/21/2020 Other CLIFFORD Calculations for this : No additional CLIFFORD calculations have been recorded for this . Chief Complaint 08/04/2020 8:11 EDT pt here for labor induction History of Present Illness Patient is Para Information: : 3 Para Term: 2 Para : 0 Para Abortions: 0 Para Livin. Review of Systems Constitutional: Negative. Eye: Negative. Ear/Nose/Mouth/Throat: Negative. Respiratory: Negative. Cardiovascular: Negative. Breast: Negative. Gastrointestinal: Negative. Genitourinary: Negative. Gynecologic: Negative. Hematology/Lymphatics: Negative. Endocrine: Negative. Immunologic: Negative. Musculoskeletal: Negative. Integumentary: Negative. Neurologic: Negative. Psychiatric: Negative. All other systems are negative Health Status Allergies: Allergic Reactions (Selected) No Known Allergies Problem list: All Problems Attention deficit hyperactivity disorder / SNOMED CT 3739469351 / Confirmed Chronic fatigue syndrome / SNOMED CT 84676152 / Confirmed Depression during / SNOMED CT 4146439632 / Confirmed Insomnia / SNOMED CT 574268052 / Confirmed Obesity / ICD-9-CM 278.00 / Possible Obesity complicating , third trimester / SNOMED CT 7615372869 / Confirmed Ovarian cyst / SNOMED CT 509150197 / Confirmed / SNOMED CT 098948797 / Confirmed labor / Patient Care / Confirmed Supervision of high risk in third trimester / SNOMED CT 63439314 / Confirmed Histories History History (1,0,0,2) # 1 Baby 1 Outcome Date: 2008 Outcome: Live Outcome or Result: Vaginal Gender: Female Gest Age: 41 weeks Wt: 3232 g [place] [facility] [place]: -- Child's Name: -- Baby's Father: -- # 2 Baby 1 Outcome Date: 05/26/2013 Outcome: Live Outcome or Result: Vaginal Gender: Male Gest Age: 39 weeks 3 days Wt: 3390 g Hospital: - [facility] Labor: 5 hr 55 min Child's Name: -- Baby's Father: -- Complications: None Complications: None Family History: Hypertension Father Mother Diabetes mellitus type 2 Father Procedure history: No active procedure history items have been selected or recorded. 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 Home/Environment Lives with Children, Significant other. Living situation: Home/Independent. Alcohol abuse in household: No. Substance abuse in household: No. Family/Friends available for support: Yes. Nutrition/Health Regular Substance Abuse Denies Substance Abuse (11/21/2009) DENIES Tobacco Denies Tobacco Use (11/21/2009) Never (less than 100 in lifetime) Tobacco Use:. Never Smokeless Tobacco Use:. Psychosocial History Family/Social (08/04/20) Emotional Support Available: Yes Coping: Effective Father of Baby Involved: Yes (12/13/19) Domestic Concerns: None Domestic Violence Screen (08/04/20) Have You Ever Been Emotionally Or Physically Abused by Your Partner: No (07/30/20) Have You Ever Been Emotionally Or Physically Abused by Your Partner: No Have You Been Physically Hurt by Someone Within the Past Year: No Within the Last Year, Has Anyone Forced You to Have Sexual Activity: No (07/26/20) Have You Ever Been Emotionally Or Physically Abused by Your Partner: No Have You Been Physically Hurt by Someone Within the Past Year: No Within the Last Year, Has Anyone Forced You to Have Sexual Activity: No (07/07/20) Have You Ever Been Emotionally Or Physically Abused by Your Partner: No Have You Been Physically Hurt by Someone Within the Past Year: No Within the Last Year, Has Anyone Forced You to Have Sexual Activity: No (04/21/20) Have You Ever Been Emotionally Or Physically Abused by Your Partner: No . Physical Examination Vital Signs 08/04/2020 7:30 EDT Temperature Temporal Artery 36.4 DegC Heart Rate Monitored 92 bpm Systolic Blood Pressure 116 mmHg Diastolic Blood Pressure 69 mmHg Mean Arterial Pressure, Cuff 85 mmHg Hourly Rounding Yes General: Alert and oriented, No acute distress. Eye: Extraocular movements are intact. HENT: Normocephalic, Normal hearing, Oral mu (more content not included)... [facility] Comment on above: Result Comment: Elec tronically Signed By: LAURA MACEDO, Funmilayo Ryan\.br\Date and Time Signed: 08/04/20 13:03 EDT Clinical Note 07-31-2020 Note Date & Type Note Facility 07-31-2020 Note The following Patien t Education Materials have been given to the patient: [facility] Clinical Note 07-26-2020 Note Date & Type Note Facility 07-26-2020 Note The following Patien t Education Materials have been given to the patient: [facility] History and physical note 07-11-2020 Note Date & Type Note Facility 07-11-2020 Note HOSPITAL REGULATIONS : ALL Positive Important Negative Findings Shall Be Recorded DATE ADMITTED: 07/07/2020 ADMITTING DIAGNOSIS: Intrauterine at 35 weeks gestation with pre-term labor. HISTORY OF PRESENT ILLNESS: The patient is a 30-year-old 3, para 2, AB 0 white female who presented at 35 weeks gestation complaining of irregular contractions. Her cervix was found to be 3-4 cm dilatation, 50% effaced, membranes intact with irregular contractions. PAST OBSTETRICAL HISTORY: Two full-term pregnancies. This had good dating parameters, confirmed with ultrasound. PAST MEDICAL HISTORY: Allergies: No known allergies. Medications: None. Illnesses: None. Surgeries: Noncontributory. PSYCHOSOCIAL HISTORY: Negative for cigarettes. Negative for ETOH. REVIEW OF SYSTEMS: Irregular contractions. PHYSICAL EXAMINATION: GENERAL: A well-developed, well-nourished, white female in no acute distress. VITAL SIGNS: Afebrile, pulse 82, respirations 16, blood pressure 111/61. HEAD AND E.E.N.T.: Normocephalic. Extraocular muscles intact. The pupils equal and responsive to light and accommodation. Nose and throat clear. NECK: Without masses. Without thyromegaly. LUNGS: Clear to auscultation and percussion. HEART: Regular rate and rhythm. BREASTS: Nonpathologic. ABDOMEN: Soft, irregular contractions, vertex presentation. EXTREMITIES: Negative for clubbing, cyanosis or edema. PELVIC: Normal external genitalia. Vault within normal limits. Cervix 50% and 3-4 cm dilatation, -2 to -1 station, vertex. IMPRESSION: Advanced dilatation for 35 weeks gestation. Will observe. Additional examination after evaluation although the fibronectin was negative, her cervix had progressed to 4 cm dilatation. She was given hydration and parenteral antibiotics for a question of urinary tract infection and administered betamethasone to help with lung maturity. Will continue to observe and watch for further cervical progression. Suk[facility]deep Schaffer MD, [facility] Dictated: 07/08/2020 #[id number] Typed 07/08/2020 #[id number] cc: Sukhdeep Schaffer MD, [facility] Comment on above: Result Comment: Elec tronically Signed By: Karime MACEDO, Sukhdeep Olivera\.br\Date and Time Signed: 07/11/20 07:40 EDT Clinical Note 07-08-2020 Note Date & Type Note Facility 07-08-2020 Note The following Patien t Education Materials have been given to the patient: [facility] 04-21-2020 Note Date & Type Note Facility 04-21-2020 Note The following Patien t Education Materials have been given to the patient: [facility] Summary Purpose Family History No Family History Records FoundNo Family History Records FoundNo Family History Records Found Advance Directives No Advanced Directives Records FoundNo Advanced Directives Records FoundNo Advanced Directives Records Found Additional Source Comments INFORMATION SOURCE (unrecogn ized section and content) DATE CREATED AUTHOR 09/15/2020 [facility] DATE CREATED AUTHOR AUTHOR'S ORGANIZ ATION 06/29/2022 [facility] DATE CREATED AUTHOR AUTHOR'S ORGANIZ ATION 07/31/2023 [facility] EPIC FOR RECORDS PERTAINING TO PATIENTS WHO ARE OR HAVE BEEN ENROLLED IN A CHEMICAL DEPENDENCY/SUBSTANCEABUSE PROGRAM, SOME INFORMATION MAY BE OMITTED. This clinical summary was aggregated from multiple sources. Caution should be exercised in using it in the provision of clinical care. This summary normalizes information from multiple sources, and as a consequence, information in this document may materially change the coding, format and clinical context of patient data. In addition, data may be omitted in some cases. CLINICAL DECISIONS SHOULD BE BASED ON THE PRIMARY CLINICAL RECORDS. [email or web address] provides no warranty or guarantee of the accuracy or completeness of information in this document.
== END 2023-08-12 20:32 | disposition home or self-care (01) ==
LOC: LAB 20:31
PROVIDERS: Visit Provider Obstetrics & Gynecology
DX: Z01.419 Encounter for gynecological examination (general) (routine) without abnormal findings (principal)
CPT/HCPCS: 87624; 88175

== ENCOUNTER 2023-09-13 11:23 | Outpatient (OUT) | payer BC, SELFPAY ==
--- OUTSIDE RECORDS SUMMARY | 2023-09-13 11:40 | XMS_ITS | CCD ---
Author Organization [facility] Care Team Providers Care Cytotechnologist/Histotechnologist Name Role Phone Unavailable Primary Care Provider Unavailisaac HARRISON ., DR WILKERSON Admitting Unavailable CHRISTY ., DR WILKERSON Attending Unavailable CHRISTY ., DR WILKERSON Consulting Unavailable HOPEWELL, DR IRENE Dee Consulting Unavailable CHRISTY ., DR WILKERSON Attending Unavailable CHRISTY ., DR WILKERSON Admitting Unavailable CHRISTY ., DR WILKERSON Consulting Unavailable ROCK HARRISON R Referring Unavailable RY ERAZO Attending Unavailable CHARLOTTE VELASCO Referring Unavail able ROCK HARRISON Attending Unavailable LADONNA CEBALLOS Attending Unavailable CHRISTYROCK DIAZ Attending Unavailable LORNA BAEZA Attending Unavailable Problems Problem Classification Problem Date Documented Date Episodic/Chronic Abdominal pain (1 source) Pelvic and perineal pain; Translations: [PELVIC AND PERINEAL PAIN] Onset: 05-23-2022 Episodic Attention-deficit, conduct, and disruptive behavior disorders (1 source) Attention-deficit hyperactivity disorder, unspecified type; Translations: [Attention-deficit hyperactivity disorder, unspecified type] Onset: 09-06-2023 Chronic Attention-deficit, conduct, and disruptive behavior disorders (1 source) Attention deficit hyperactivity disorder Onset: 09-06-2023 Chronic Hemorrhage during ; abruptio placenta; placenta previa (1 source) Low lying placenta NOS or without hemorrhage, unspecified trimester; Translations: [Low lying placenta nos or without hemorrhage, unspecified trimester] Onset: 09-06-2023 Episodic Immunizations and screening for infectious disease (1 source) Encounter for screening for human papillomavirus (HPV); Translations: [ENC SCREENING HUMAN PAPILLOMAVIRUS] Onset: 05-23-2022 Episodic Other and unspecified benign neoplasm (1 source) Lymphangioma, any site; Translations: [Lymphangioma, any site] Onset: 09-06-2023 Episodic Other complications of (1 source) Obesity complicating , unspecified trimester; Translations: [Obesity complicating , unspecified trimester] Onset: 09-06-2023 Chronic Other complications of (1 source) Obesity complicating , second trimester; Translations: [Obesity complicating , second trimester] Onset: 09-06-2023 Chronic Other complications of (1 source) Supervision of high risk , unspecified, unspecified trimester; Translations: [Supervision of high risk , unspecified, unspecified trimester] Onset: 09-06-2023 Episodic Other complications of (1 source) Supervision of high risk , unspecified, second trimester; Translations: [Supervision of high risk , unspecified, second trimester] Onset: 09-06-2023 Episodic Other diseases of veins and lymphatics (1 source) Lymphedema, not elsewhere classified; Translations: [Lymphedema, not elsewhere classified] Onset: 09-06-2023 Chronic Other nutritional; endocrine; and metabolic disorders (1 source) Obesity, unspecified; Translations: [Obesity, unspecified] Onset: 09-06-2023 Chronic Other screening for suspected conditions (not mental disorders or infectious disease) (6 sources) Encounter for screening for malignant neoplasm of cervix; Translations: [Encounter for other specified screening] Onset: 05-17-2022 Episodic Ovarian cyst (1 source) Other ovarian cyst, right side; Translations: [OTHER OVARIAN CYST RIGHT SIDE] Onset: 05-23-2022 Episodic Residual codes; unclassified (1 source) Family history of other congenital malformations, deformations and chromosomal abnormalities; Translations: [Family history of other congenital malformations, deformations and chromosomal abnormalities] Onset: 09-06-2023 Episodic Residual codes; unclassified (1 source) 20 weeks gestation of ; Translations: [20 weeks gestation of ] Onset: 09-06-2023 Episodic Unclassified (1 source) 1st daughter born with Primary Lymphadema and Abdominal Lym Onset: 09-06-2023 Results Test Name Value Interpretation Reference Range Facility PAP ACOG PANEL 2: 21 to 29on 05-24-2022 . . Normal [facility] Comment on above: Performed By: #### [id number] #### [facility] [address] [place] [address] Dr. Michael Garrett Age Gdln ACOG Testing 21-29 Normal [facility] Comment on above: Performed By: #### [id number] #### [facility] [address] [place] [address] Dr. Michael Garrett DIAGNOSIS: Comment [facility] Comment on above: Result Comment: NEGA TIVE FOR INTRAEPITHELIAL LESION OR MALIGNANCY. CELLULAR CHANGES ASSOCIATED WITH INFLAMMATION ARE PRESENT. Performed By: #### [id number] #### [facility] [address] [place] [address] Dr. Michael Garrett Methodology: Comment [facility] Comment on above: Result Comment: This liquid based ThinPrep(R) pap test was screened with the use of an image guided system. Performed By: #### [id number] #### [facility] [address] [place] [address] Dr. Michael Garrett Note: Comment Normal [facility] Comment on above: Result Comment: The Pap smear is a screening test designed to aid in the detection of premalignant and malignant conditions of the uterine cervix. It is not a diagnostic procedure and should not be used as the sole means of detecting cervical cancer. Both false-positive and false-negative reports do occur. . Performed By: #### [id number] #### [facility] [address] [place] [address] Dr. Michael Garrett Performed by: Comment Normal [facility] Comment on above: Result Comment: Francisco Otero, Winding Machine Operator (ASCP) Performed By: #### [id number] #### [facility] [address] [place] [address] Dr. Michael Garrett Reflex Criteria: Comment [facility] Comment on above: Result Comment: The HPV DNA reflex criteria were not met with this specimen result therefore, no HPV testing was performed. . Performed By: #### [id number] #### [facility] [address] [place] [address] Dr. Michael Garrett Specimen adequacy: Comment [facility] Comment on above: Result Comment: Sati sfactory for evaluation. Endocervical and/or squamous metaplastic cells (endocervical component) are present. Performed By: #### 4 [id number] #### [facility] [address] [place] [address] Dr. Michael Garrett US PELVIS AND TRANSVAGon [...] by: IRENE ZUÑIGA Date: 2022-05-18 07:45 Normal [facility] Nursing Assessmenton 021 Nursing Assessment [id number] Normal [facility] Coding Summary.on 08-16-2020 Coding Summary. CD:[id number] G h0bWw+PGhlYWQ+KF6WQRV zX91fkWRrnY4YD8jXJS8U QVLQDWVEHC6GIQ1oxXH8X IbmV8HemgUu DhoktUBaEV66MIy2SAF1u WksBJvryM8vkKDkM2t3Ex AhVG54uH58NPvaIMHnJyE 3LjZpbjsgbWFy I7erFlEjzPGyRbz+PHRhY mxlIHdpZHRoPScxMDAlJy BpzEzjRP4bMr7vBMImHEU vbGxhcHNlOiBj w3ilJCSpVEbbHV2wqBdhJ 1NwlGR4VUYdb1o6Mz00vO I+BVFuQDH2aSehCKxhf39 3AsGpf8vdIQG7 zBTbGAyuLWJ8H70xj6I5W OCbDBBnQGA0wMP2gS8umZ khbopeU0HneJJhEmD4GXI 5pEQayL4xdYbt azfagX2jFbe+E80ZDR0YU LNMEQ0TIcu3L5XgDfvelH I+CJ04IVIwJV88oBHqlRC cx9ntmDg9FwKs VQNsKZB1dOcbOQkiw6VfY SBnF57ydAYjw7H6ZYMpnN kblRYyTcWnySU2kE1dYWh qczkmf7jezxub Ikzsb5iryz81vH23R08hE GydHLScDYE7VRJnKKVdzC jvlf4rdQ4qWb5+EVgbb1h tt2kqwBu5VrWr YVQfzsBcqKnwHMZ3h8PlA r18R7UitEjsz5NaOor4zm 46rSIho6M6gWS1RHbzVNH viB4jHMuaQuD0 LILhZwEjpA22nYKxEFacM d4ixQsphTqhNB4wPBJcrb siPQNtdJ5rEJEzuVNdxSd wSN6qXVCaaxhe u350LeCdVTR0KZTgzCBrN 5YouU9bRuGiBUZuAYFfY3 HodVYvQWupN288YKisGtW 1KPGgpdLyF8Ke OOKbpBtrOxS2f0P4Cb7Pk 3QsyxgsEDP3CIzgRRG6Sb L2EuYhAcC1O1GtBzm0NCR hnFkiPU9jQ8Xl JGFijzhmukppeUH5KIOiE IExuW91cUPqFMloGa4rl6 F4d478KJEoHGGnpS60Em1 udDogMTBwdCBU xH2yefbpi9mchkhqIzOqD IZvSHq1SYc8BPPfpKlaOl DzIIG1RhD2ULF3jJXkhH7 xsQrgojkayU6l Oyc+Q12ogH8qWGT6AKK2q srqNSJzlfAbUC50UV20T9 RyPjwvdGFibGU+PGRpdiB kkTrtOZ0yIdRa h2aoo1LoPBvlQ7UpMQFqN PzgKep2FGXaZCF8qLT4cD 5xNUFsKHvxn5E3vAQ5H4L frfSrdg3yp3jq BPRhVVyjR04lvZXwt5X6Z TUmhGE7QLYyrIhrXlDenK 93Oyc+TKEhiTtko8BbWhf on4jnw6zzrPn0 EcRsANZhwlIxzEmqUTZ9j 6WzRc28T97zHRxwPLLmJI NvOFEoIXCxsFarbk1khY9 wIi8+PGNvbCB3 yAV2jX6qXBDyUzA5XAndX 448VwBltLYmXymsq5dtv6 lfqLi1UgLdPCXbuhZpjQm bMIH0x8RvWb25 C01qLHikJDCvLIReBZDfO HSquHokji4boQ0yGi2+PC 5fe4relj88vG70uDK+PHR iYFV9gGjaHZir ILPuqU1yHWgfHxF5ZSSuD aJizA96tWLzRTpcYj1dsQ ahfMfmEE3fXTWamcmdp86 5GgBln8lxAEJf vBUdHZdlLIJ7Z70zf7I7Z QHrRIRiWMS8qGM0sM6njN lnbjogbGVmdDsgdmVydGl rZVbcLSkwF449 IHRvcDsnPlBhdGllbnQgT eZdHMj1Z4AmIkt6OJVxiX hdPZ9ydCTlJGqaHa3njUe dzCtsIW7jJMZl qlsjw155OjWlp4wxOIPpy HHyBMsiZFR6Y40xg9S0UD ZmLSMySTA8tCB4fA5vtIu nbjogbGVmdDsg ljWceUhgKTarPZryR104A HRvcDsnPkJpcnRoIERhdG S0DO30GP24yGFwb6T6uQF 3F2IkKLXgenbc aqkgwXO7QOTxUFJkeJ59N y1avBtbJr8oBYIfXFJ0LW CavBTmE5YcaB9pOxXgLVQ hOWNkM4VhmNPc MRnvN662EUmbIuM1QKIvq fCkM2TcILQhrJmmBjZ0h8 H6Ve9DY5H3RV67UV93aOF cf0L0uDX3V9Nh IKVzcncsyojvuMH6MOErW WDbtM28Zh9gmNjcHh3fXR JrIAH2EKVdbCQqQ6FliZ5 yOiAjMDAwMDAw J5FbuMJwGLxiC315PZlwM rS0RWIprvTnY8RwSUPedU bnVsT6q4E3Hi0FQHt3WS1 8VF52aSWao8R8 rSA8C0LmLKRdkcluzdhpw DS4AIUiUOUlrS43Au1hnJ lwVz6oGIJgRFQ0WIBofZH zJ7JkdK3pFdYn VEAzWHGxP4OgvXBmJMcxR 816QSszIuD7VVNyjxLgI2 LgSDVxrJazHrW4t2K9Wx9 RRLOiLD03DKK3 vEJ3TM32TY23B9NcKegcw GFibGU+PHRhYmxlIHdpZH RoPScxMDAlJyBzdHlsZT0 mPf2hQBVgSBGo qCxlrGHrVaOql4yqMCYsN MxxJT1xcDjiG3AfbPO9QN Wgy4q7Wp33Y49xL0QavEW +EJIkwUX3nCO6 mO3uPhMrNtG4QRymW727Z kImuYAlWuqjz5eyk6mvmR u1VjV8NDQrauUluEnuTJQ 2x8WnRj82K86t IHdpZHRoPSIxNSUiIHZhb Gdwuj2cqS5dTe8+PGNvbC T1hAM9tD3jFbHzFiO0QFu oQ851IgBwsBVd Bstjx4afr7pfnHg7ViFkZ OTqbeJocWqxWIU0d7WsZk 84E3LldJott9BfRas4zp1 6vMPuz7B8gES8 Z4NsYGOezesuuSVnsHdaI C0bTAJbknfmLVSmgO0tLS RzF1u3DfNsWqF2XSiyY0X gbeX8WEBckRZd OQghZWI6P65fh9D5BNJbV RBhUFK3nHD3hG0oiViuem ogbGVmdDsgdmVydGljYWw eXWcwA155JXQi jZyfWFDidK4mWKIuwGIqv NtsVL5tMCPtmkuzToVUNk eFGt6nVYKVXtKCG0GoEKm vdGQ+PHRkIHN0 hKsgBHzuASVjgT0tIROyX 5b9XgZjVbJ4IFqrF4VxEQ GbznibHk74qJ7hFjMsGtR 1EUpcY0OhpfY6 DVYkeZLgEWzjTEB9K59nv 2E1ENDoGTHzYEW2bVZ0oG 1hbGlnbjogbGVmdDsgdmV ydGljYWwtYWxp G255BIDhtPomBeE4TnJqU sY0HLY3G7RhEtl1MMMwgT aqVB7qjNZqLUwdTa5pnBn ioAbjSZ7cRJBm mlmsXPUdxE4yXWZrpZBur BerGD9yNVBszdgjb985Iz SqGGV0NKZxiOHjH6BrxK8 yOiAjMDAwMDAw B1RlwUCkSXofD281XQbyP bY7HDOrlhHzW7PqVYUbfF ugBtJ9s5N3Ek7cDAEJCTB yczwvdGQ+PHRk NIM5iNpgINuzUBAjcM6kD PPcM1o4PsNkHvY0LWlgU0 JtDAVeupusQv47uU7cIeB sWtL3JLhnA1Gn fhT1SPMvuMEvTLnsTDI1V 59jx1E8VSHhUYIvZVH7cS O5yG0luGhxdzuzdNIecSt gdmVydGljYWwt ZAcvH244PKKmtHqkVwLxy WFsZTwvdGQ+THMaOYT5nM blDBycFYGvaL6oXEAdA5d 7XfZzWvJ3KUpq A8TfPFQzjhezXp59mV9qN bFkFcR8LUjjI1PdmrK0NS TsqOFsKTicBXS6T14kc3N 1GBSaGJPgIAG9 pCF9aA9gpBlshtzmoRBgy DsgdmVydGljYWwtYWxpZ2 83VLOhgVnzSv29xDPuhGw zxoR8F7UqGwnf dHI+VP01DMFiAS11yBVcw PKjm3kplSn8QjNxFUSxLM R5hSuxOSjas6UoKLAnW33 blNIeu1E5KVCp sHiujJFrMkTbnPJ5sF0bF Uwxlnete8jupnzpCtaxz9 rjej94aP21X95dVNbrPPF oPSIzMCUiIHZh dHdlqk1lwG6vLd3+PGNvb TH1oTT6aS4pMfLwGjJ9IF jzD948FvLfwDBgSipqd8w uz0xdpWh5SfEr YXPfjzIvfZtoSBJ4u8BhE d44F19fSKiwMDGuUBFdYY FrAMBtsJxvtg2ytZ6sYm9 +YE1vy8bojs52 rI72mRV+YEEbYQJ6fQqmJ NbmOYZtmB3mINpcHuV5JA KgDeAftZ63mDGdNTdvCz9 jbOqbuIaaAG8m GJIcquafi422YwXiv7vgE VVzqXIeLTgaAGR0U13mq6 Z0LYDkCHEbKUN7bEV8gQ1 hbGlnbjogbGVm dDsgdmVydGljYWwtYWxpZ 882VHPubRxfXyUhvLFsC8 oqxhDFKO9hUvzuxKS+PHR pMWC8cUfzXZqk WGUblL8lKPPzI2e1LjIvU uF4SDxbO8RpgoD0ZJDnzZ LvXUSnzWELgZ6miinzd7g vcjogIzAwMDAw SNe1ZBw9SMBugIsfIdFbC LE0LkW6FVA3mYQlxK8liD mlxnxspD8pIyb+RklOOjw vdGQ+PHRkIHN0 sXbyBCriTDXxzF3oXWRqR 2c8TyIjGrR7GWcmP3Cjcs O2WTJzmSAnMQYsqTBQkH4 dimdiu8lsihuk EnRcCIKhXGl7KYa3PPZmc SjhVtSuUYH1YsY7RWL3lX GirC1oyFqhuhthjY6bPni +TVJOOjwvdGQ+ UVFqLYU4uJaeVOveENHtt M9kKSCxY4w8IdPdAtA4BH kqK4TfanN4UUBnuEMvJZO oiOKLbI2xhebq f3xvokykWmKbGHQqBGr7M Af8VJShfCkmTwTpUQO1Sr N1XIB5iGKpzP8dzVbddxb xnR3yMiq+UGF5 ORE5LX58WL78T1IfKbqmr GFibGU+PHRhYmxlIHdpZH RoPScxMDAlJyBzdHlsZT0 xYy7jTWUmUUUb bGxh (more content not included)... [facility] Coding Summary.on 08-15-2020 Coding Summary. CD:[id number] G h0bWw+PGhlYWQ+HP9UPYQ lO49taOJhhO8AO3hWME6S NGCMVTAVRV9XUT3jnED7Q OzgX5WhmzGg OqnhcURvUS43SBf9ZTU6v QwtIPwrzZ2tnSVjA1o7Uu LeRR60uF75MZesALJcXhH 3LjZpbjsgbWFy A2cgNaBvlLMcKmm+PHRhY mxlIHdpZHRoPScxMDAlJy ShaZwjHQ9bQp1gFDDjNKJ vbGxhcHNlOiBj b0msRIYoYDefCY7iaZnzI 3BuuXL4JSNuq4j4Zy20sG I+OQZrZXI5eNxnFExqj26 1MnYwb4kkHSY9 tUUsLDsiRRS8S48sw5F0Z JJjVXZdUPU5iQA6eD3drQ fueaitK1GgvASiBaU0OVK 7nBMqaF3zfIiw pmkckI1gQsv+Y72CTT2WV XRFCW2NHzf6G9KbZhfxiD I+CA49HKZuAF92eDCtoEB tf6sjrQh7ZaOj CMGwJDE5dBprXQrem5WtR SNjL17evMHeh0B2YWOftP zgcHWgJgXwjXB9eA2iGGr ronsyk7nivyli Dnsmk9nrqx64xR31W74fH PwwFDFqOEK7TEExAIRvaT olxy5npR1kAj5+BQfyy1a xr3eolNd5DpFs TXGjqiNijPnrFWF9m5AeU m52E3NgnZzag2VjUxn6nc 07bSKmb9H7zJH1KRbwLNV ajZ0pQUgjKfE5 NSHcJjXynE77rPTyCKgcH t9vkFdijHmtIW6dULUzhq qsMPXlyZ8jOMBfzCXssGv nDK3vYEKzgkap y328JyEwYVM9VFNzoEHnQ 0WraR5nWfDmFXEiRYBgN3 BqvCFoVYyjY904QRanQsQ 7XKEdfiJnD6Pj JWGqdEafLpO7d7I2Hn8Bn 4KpfxumRBS7YHbmLJT0Dk M0PqDuFlD8O9VnYat9HHL fbQrgMC6bX8Fl TGLjympquvxpoIX4KFTrE OBqvP31dRNkQSaxZr5qq3 H6f436ESRpNJGevE18Bq2 udDogMTBwdCBU kT2kmbhtc9odtgniGwLdZ IRvEEg0HQt2QJNqqJorFb TkPIF2WtB7IZU4gLSaeM2 ukGywkbfroF8h Oyc+J43dfY8gKIK3WEL9m kooAUJstpCoJV66UB03E3 RyPjwvdGFibGU+PGRpdiB syWwtNS8mDaRo z7qus3XcTMylZ1LjHWEqI LplXic8BXEwDSL4qAR6iD 1nMCKaYUqpa6M1nYM7C3G trsQiuj9si5kl AOWgRRteZ23yyOTyl9L8J GUotPN3ZRQylYvkAhWdiF 93Oyc+AABjfClsx5UzFqv vw5dbu7kumQz0 LfQuWUNyhqTwtKitTVZ3q 4DzPq26S58gVVevLJQpXG VoEFNaNGQkdRvvoe1fzC0 wIi8+PGNvbCB3 oPN3vS1xOAJgAwQ3FGzaE 244KtWgoWPpAbxgf8rjo2 zsbXn3BzDfUSJutgGyaNd fGCZ3m8VbYo68 N75fEDdrMNNaMSIgRVZlN SBdeWljmy7asA5wSl0+PC 7ro0nxrh19qU62wWB+PHR eMAL7zQrxTTsf ZDShaM0nQEwpQbQ1VLDzH tEgmM65lARuQRlnQv1cmX gozGleEP5fOCJlwiswc73 5PwIsn5fmSNVk hSLmHRzqYLR9N72jr4G3N YOtGGLsHDV3cZR0lZ0nfY lnbjogbGVmdDsgdmVydGl iFWosAAotF486 IHRvcDsnPlBhdGllbnQgT bKrTGj1I2DnRxk4QOYctR mjPW5bfXTyVYhuFj8qsKo djDmrEN3nGYUf bkvnt743XbNrt9xqJANun QSiHSuaVTY0X53ks7T2KC PhVOQnDOA9pVV5pL4ayVf nbjogbGVmdDsg ngCcvGgxEQgjXSbaU806Z HRvcDsnPkJpcnRoIERhdG B2OE71VC23qWHwg6X1pJE 6B6LzLFZvkaul tbghtGX8UJZmVQDuhB00K l6czYoqXa9jXSAbHNG8OS FfqVPpY9CaqB5rJaTvAUV dXMUnJ0NwcUHa XIwcT044WGzmCeD7ILYqr qTgA1XrODGqcJpkRlE9c0 Z8Gy8ZS8H8AU15BD32uZK ak3C6xDM1Q0Tx DQTescrnfsrqxYA8DUZhD SGxzI20Pm2isMszVf2pZJ SzZKL5CDFqbLMrS4HtwZ5 yOiAjMDAwMDAw Z9ZmyUWdXBgfG650VSooH aS7NQJplhRvM3MjDSEfiL vuWaA8n1M3Oe2QDRc7ST9 1NM38xRQtg3A8 pWF9Z6JfRXYiilxljggox JW8OZLrNSZntI91Hn7qoK bwEn0aAKOaSAK3TSWfhFQ lT4VodZ5mGwFn HMUbRYMpF2LhlQQuMDcrS 312NDefShN6BYUeprXkX7 CqZQRmsUupSfR3a4R8Ok9 KNDTgPO13LLG0 yGH8GH41ZW82F0ClZlswy GFibGU+PHRhYmxlIHdpZH RoPScxMDAlJyBzdHlsZT0 uTq4zILKkHPCi iXpisQIwAaKtg6saJFEyU XieWR1fsXrxN9BtiWM7YR Ldf3v9Td48F86eE9BkvOP +BBYezJY4yMY6 oU4yBnPbBcX5DLqwA291L vDbfCMpRqjkp2yxa5xyhP e4VqL6LKTguaIrpIhmTYX 7p1PxBf37E83d IHdpZHRoPSIxNSUiIHZhb Bgehk4uvD3cCk9+PGNvbC E8wIU2cT6oRaMoIuS1JTd oG621HdEmcXDd Dmzbv4tsw9bstQo4FqRlD MDybyXlqBafGVD8r9IpRl 48Z3ChuOwcs8LvQlb3en9 6uVOvb8T9bSI0 F1MxAMVmczqwmMGkfYyyX D5cPGMmcuudMJScwR2uAG PcH1k0XkUgPnL2ZUotD3Y ibjA9YXVxnJKd RFdzSYB6C39qc6N2QRNlM IKbYFI8pUG1cZ4fqBonsn ogbGVmdDsgdmVydGljYWw yBFljV428BYQq lTtqLCKyhK1lAQCxiATiv ExyLJ8zAQMxkklyBgGZIl wNDc3mHSGALlXQJ1LyJIy vdGQ+PHRkIHN0 mLjjVCicDFPngI1pSGZxQ 8t9AkVpJaT9IXxfU9WhYQ VrteqhAy10gG6rUsPdOvB 9FMlwV0XzoiR2 IWIzxCEdHSuzSLZ9I43pi 6B4EWNdPRItMYP0pQD1uF 1hbGlnbjogbGVmdDsgdmV ydGljYWwtYWxp F305MZChvVdqYyN8UtAqV cU5PQU6B5JhGew1VHRvjV lpSK9ddOLdOAssQg9ioFn btDlxRQ8mQKQx ctzhUFApdH2dVVVlxZRfd PmzGN1fOPOwrdlla745Fd AaBUX8RNPzyOPaP6VcmV3 yOiAjMDAwMDAw K7JetUSvRJovZ534ESgwZ oB7TBNzitPpF7VeGBLxaC eaPjU9d9W3Us7qXBBJPJW yczwvdGQ+PHRk PUU8oWcpQDpnTEJqiG2qP IVqA9l5ZbXbMrM3YWhwE7 BpMXCqnqcuYx07kF5oYwI jYyZ0TUkmG9Cx uqU5LJAloKUmJVegXKG2E 00ze6O8TYPlBVPcYBD0dZ H9zH3umDxjfrbruVAhsKa gdmVydGljYWwt TBokL261MRVjaLdkMgLpa WFsZTwvdGQ+TXBrUIQ0oD pbLHquAAWegC4uTPVsI8x 0HvFuFuQ0PWyx A3VrHHYecczmLm68oR0bP qWwJoC8AAejJ7IsqyD1RL ZwoICrSOnzNPW1H80av5O 6SXEyYQUtZON7 aUF3aU8bfFxlyfesoVVjv DsgdmVydGljYWwtYWxpZ2 52QVFsmFdqJczidJH3wQL udDwvdGQ+PC90 bl93Q7HuJdxnGxf0THXvW RG7cAN4jA0jKOFdJWvzw4 N0cXA6A6NltlHoix0fd9u rEOQpMZjkY14g aLBnh5P0AXFwsTD2ADQso RmqCyLiaK35Hhe+PGNvbG kfp0PoRrbgs3ski7rcpIx 9IjMwJSIgdmFs vFmqQSS5m2PyDp13V80dY HdpZHRoPSIzMCUiIHZhbG ttqn4ngF6eFi4+PGNvbCB 3oSF7yF7oIbSl LjG4PNuvT225VnTliCLoP smmx3icx2xesBz3NgBeLR QedwSqzKnzOIG9e6CkAx8 3W2KzsAljh4Ta Ntd0ej30mKAxe2J3rKO4A 3BhZGRpbmctbGVmdDogMC 0eJPVlgutjXISnuK7aCTP nB4j7VfPpOlZ6 DPbeI2KiuwR2SYQdzTNfE FWqaTBMrI0twufep3uwgx atSkAePQOpHTb6FPq6KHG saWduOiBsZWZ0 PvA7IBM7vIQesL3gpRvkm aafmQ3cRzz+YDf4j6nnxN CkQF2geRX6PS92VM99cXZ al1K2sYL8Q4Rz GSLfavjplspkgTB9QTPaP IZiaD54Fl1hfSacEs9kQK MyNSJ2QMPmqKRmU9OocX0 yOiAjMDAwMDAw S3YujROdMQxjX830HEpzJ gR9HPQipvGaC9XgRABujB qyJhZ0x8O7Gd7YQB68KQ2 5XW38qOLmq5U0 wLF8C3CzHCKwzleqwjfiy YJ2LDOuSKDleM41Sw3jjE pzNr0aYEPsUAA1BRCbiBA sD8FoaF6fLjIu BIYbPAFqR7KacUTfPVtnS 655ILtbSxD6FPQukeJjX4 XoHRGsjNbuVhV8r0R6Ll6 RPk70FL98HE76 zXFgp6N3cEM9R5DjEGRye ddwskgchIQ6EFDnTEHbfA 07Km1mbFxlHp3wNYUwPTP 0RCXxoURuI8Qi bS5oBsBwSLYrTSIiA0Jsy WPxJDtyL453YVtrRoL8LF TogpQeH8YxRZTygZeyEuE 9h9U8Fe5EYYqn aml2Z8GaHyyvaSG+PC90Y JNtGX33fBHelKUbp1rxxO d1KzVqBZQwJCC1oFmyVIt re5HqKHStK27a bGFw (more content not included)... Normal [facility] Consent for Treatmenton 07-20 Consent for Treatment [id number] .00CD:127 Normal [facility] General Message Officeon General Message Office --- --- --- --- - -- --- --- --- --- From: Basilio, Direct[employer] To: MYA MYLES Sent: 08/06/20 02:30:52 AM EDT Subject: Discharge Summary Ready to View A summary regarding your recent visit is available in the Documents section of your health record. Normal [facility] CBC w/Indiceson 08-05-2020 Erythrocyte distribution width (RBC) [Ratio] 15.1 % High 10.9-14.2 [facility] Comment on above: Performed By: #### 2 [id number], [id number], [id number] #### [facility] [address] [place] [address] Hematocrit (Bld) [Volume fraction] 26.0 % Low 34.0-46.0 [facility] Comment on above: Performed By: #### 2 [id number], [id number], [id number] #### [facility] [address] [place] [address] Hemoglobin (Bld) [Mass/Vol] 8.6 g/dL Low 12.0-16.0 [facility] Comment on above: Performed By: #### 2 547678, [id number], [id number] #### [facility] [address] [place] [address] MCH (RBC) [Entitic mass] 26.3 pg Low 27.0-34.0 [facility] Comment on above: Performed By: #### 2 440429, 7098741, [id number] #### [facility] [address] [place] [address] MCHC (RBC) [Mass/Vol] 32.9 g/dL Normal 31.4-36.0 [facility] Comment on above: Performed By: #### 2 859598, 7270432, [id number] #### [facility] [address] [place] [address] MCV (RBC) [Entitic vol] 79.7 fL Low 80.0-100.0 F [facility] Comment on above: Performed By: #### 2 397581, 8462391, [id number] #### [facility] [address] [place] [address] Platelet mean volume (Bld) [Entitic vol] 8.0 fL Normal 6.4-10.8 [facility] Comment on above: Performed By: #### 2 947397, 7398470, [id number] #### [facility] [address] [place] [address] Platelets (Bld) [#/Vol] 259.0 E9/L Normal 150.0-500.0 [facility] Comment on above: Performed By: #### 2 132124, 6950753, [id number] #### [facility] [address] [place] [address] RBC (Bld) [#/Vol] 3.3 E12/L Low 4.3-5.9 [facility] Comment on above: Performed By: #### 2 601839, 5318605, [id number] #### [facility] [address] [place], [place] [id number] WBC corrected for nucl RBC Auto (Bld) [#/Vol] 10.2 E9/L Normal 4.0-11.0 [facility] Comment on above: Performed By: #### 2 396167, 9581528, [id number] #### [facility] [address] [place] [address] Discharge Instructionson Discharge Instructions [id number] 1.00CD:127 Normal [facility] Inpatient Clinical Summaryon 08-05-2020 Inpatient Clinical Summary [address] [address] Clinical Summary Person Information Name: MYA MYLES [place] Age: 30 Years : 1990 Sex: Female PCP: Chao Blackwell III, DO Marital Status: Single Race: White Ethnicity: Non- or Language: [place] Citizen Visit Id: Visit Reason: Speciality: Acuity: 1 PP Enc Type: Inpatient Med Service: Obstetrics Arrival: 08/04/2020 06:59:23 Discharge: 08/05/2020 17:20:00 Dispo Type: Home (Routine DC) Address: [address] [place] [address] [place] [id number] Provider Notes: Diagnosis: Depression during ; Obesity [...] Follow up: With: Address: When: Sukhdeep Schaffer [address] [place] [address] Business (1) Within 6 weeks Comments: Call Dr if fever>100.5 F, heavy bleeding Call for any problems. Nothing in the vagina for 6 weeks Type Location Start Finish [facility] 09/15/2020 9:00 AM 09/15/2020 9:15 AM Confirmed Patient Education Information: ibuprofen 600 mg Tab Normal [facility] Inpatient Patient Summaryon 08-05-2020 Inpatient Patient Summary [address] [address] Patient Discharge Instructions PERSON INFORMATION Name: MYA MYLES L Date of : 1990 Current Date: 08/05/2020 18:16:41 PHYSICIANS Admitting Physician: Funmilayo ESCOBEDO MD Primary Care Physician: Chao Blackwell III, DO PCP Comment: Discharge Diagnosis: Depression during ; Obesity complicating , third trimester; Supervision of high risk in third trimester Condition at Discharge: Stable MYLES MYA Abdulaziz has been given the following list of [...] None Follow up: With: Address: When: Sukhdeep L[facility] [place] [address], [place] [address] Business (1) Within 6 weeks Comments: Call Dr if fever>100.5 F, heavy bleeding Call for any problems. Nothing in the vagina for 6 weeks In the event that this physician does not participate in your insurance network, please consult with your insurance company to find a nearby participating provider. Type Location Start [facility] 09/15/2020 9:00 AM 09/15/2020 9:15 AM Confirmed Comment: IJUSTINO VANESSA L, have received the attached patient education materials/instruction s and have verbalized understanding. Patient Signature Date Clinican/Nurse Signature Date MEDICATION LIST New Medications [id number], [address], [place] [id number], [phone] - 1947 ibuprofen (ibuprofen 600 mg Tab) 1 Tablets By Mouth every 6 hours. Refills: 0. Last Dose: ____Next Dose: ____ Medications to Continue with No Changes Other Medications multivitamin, ( Multivitamins) 1 Tablets By Mouth every day. Last Dose: ____Next Dose: ____ Pharmacy Information: [facility] PATIENT EDUCATION INFORMATION Instructions: Medication Leaflets: ibuprofen [...] younger th (more content not included)... [facility] ABO/Rhon 08-04-2020 ABO/Rh Positive Invalid Interpretation Code [facility] Comment on above: Performed By: #### 1 [id number], [id number], [id number], [id number] ####[facility] [address] [place] [address] ABO/Rh History Checkon 08-04 ABO/Rh History Check Verified Hx Blood Type Normal [facility] Comment on above: Performed By: #### 1 [id number], [id number], [id number], [id number] ####[address] [place] [address] ABSCon 08-04-2020 ABSC Gel Interp Negative Normal [facility] Comment on above: Performed By: #### 1 [id number], [id number], [id number], [id number] ####[address] [place] [address] Blood Bank ID#on 08-04-2020 BBID# [id number] Invalid Interpretation Code [facility] Comment on above: Performed By: #### 1 [id number], [id number], [id number], [id number] ####[address] [place] [address] CBC w/Indiceson 08-04-2020 Erythrocyte distribution width (RBC) [Ratio] 14.8 % High 10.9-14.2 [facility] Comment on above: Performed By: #### 2 [id number] #### [facility] [address] [place] [address] Hematocrit (Bld) [Volume fraction] 31.7 % Low 34.0-46.0 [facility] Comment on above: Performed By: #### 2 [id number] #### [facility] [address] [place] [address] Hemoglobin (Bld) [Mass/Vol] 10.2 g/dL Low 12.0-16.0 [facility] Comment on above: Performed By: #### 2 [id number] #### [facility] [address] [place] [address] MCH (RBC) [Entitic mass] 25.6 pg Low 27.0-34.0 [facility] Comment on above: Performed By: #### 2 [id number] #### [facility] [address] [place] [address] MCHC (RBC) [Mass/Vol] 32.1 g/dL Normal 31.4-36.0 [facility] Comment on above: Performed By: #### 2 314220 #### [facility] [address] [place] [address] MCV (RBC) [Entitic vol] 79.7 fL Low 80.0-100.0 [facility] Comment on above: Performed By: #### 2 [id number] #### [facility] [address] [place] [address] Platelet mean volume (Bld) [Entitic vol] 8.3 fL Normal 6.4-10.8 [facility] Comment on above: Performed By: #### 2 745032 #### [facility] [address] [place] [address] Platelets (Bld) [#/Vol] 341.0 E9/L Normal 150.0-500.0 [facility] Comment on above: Performed By: #### 2 385631 #### [facility] [address] [place] [address] RBC (Bld) [#/Vol] 4.0 E12/L Low 4.3-5.9 [facility] Comment on above: Performed By: #### 2 924097 #### [facility] [address] [place] [address] WBC corrected for nucl RBC Auto (Bld) [#/Vol] 8.2 E9/L Normal 4.0-11.0 [facility] Comment on above: Performed By: #### 2 295834 #### [facility] [address] [place] [address] Consent for Procedure/Surger yon 08-04-2020 Consent for Procedure/Surgery [id number]# 1.00CD:127 Normal [facility] Consent for Procedure/Surgery [id number]# 1.00CD:127 Normal [facility] Consent for Procedure/Surgery [id number]# 1.00CD:127 Normal [facility] Consent for Treatmenton 07-19 Consent for Treatment [id number] [id number]# 1.00CD:127 Normal [facility] Consent for Treatment [id number] [id number]# 1.00CD:127 Normal [facility] Delivery Summaryon Delivery Summary Patient: MYA [...] Vaginal delivery procedure Performed by: Funmilayo ESCOBEDO MD Indication for delivery: labor progression induced. Informed consent obtained: for procedure. Anesthesia method: epidural. Position: birthing bed. Rupture of membranes: moderate amount of fluid, appearance of fluid clear, amniotomy. Delivery of infant: time of 08/04/2020 15:08:00, uneventful, umbilical cord clamped and cut, AMRIT presentation, with right shoulder anterior, left shoulder posterior. Nuchal cord x1, reduced after delivery of body. Status of Viable Gender: female. Apgars: 8 at one [...] Stable. Maternal condition: Stable. Funmilayo Escobedo MD [facility] Comment on above: Result Comment: Elec tronically Signed By: Funmilayo ESCOBEDO MD\.br\Date and Time Signed: 08/04/20 15:29 EDT Discharge Instructionson Discharge Instructions [id number] [id number]# 1.00CD:127 [facility] Help Me Grow Referralon 07-19 Help Me Grow Referral [id number] [id number]# 1.00CD:127 [facility] Progress Note-Physicianon Progress Note-Physician Patient: MYA MYLES Age: 30 years Sex: Female : 1990 Associated Diagnoses: None Author: Kevin Haley Jr., DO Postoperative Information Post Operative Note: Day 2. Anesthetic utilized: Regional: Epidural. Health Status Allergies: Allergic Reactions (Selected) No Known Allergies Problem list: All Problems labor / Patient Care / Confirmed Ovarian cyst / SNOMED CT 930739635 / Confirmed Attention deficit hyperactivity disorder / SNOMED CT 4512536868 / Confirmed Obesity / ICD-9-CM 278.00 / Possible Obesity complicating , third trimester / SNOMED CT 1706214414 / Confirmed Depression during / SNOMED CT 3307474620 / Confirmed Insomnia / SNOMED CT 048007003 / Confirmed / SNOMED CT 213886389 / Confirmed Supervision of high risk in third trimester / SNOMED CT 61112887 / Confirmed Chronic fatigue syndrome / SNOMED CT 41782972 / Confirmed Resolved: / SNOMED CT 867196254 Resolved: / SNOMED CT 644873755 Canceled: Obesity complicating , first trimester / SNOMED CT 7707186727 Canceled: Obesity complicating , second trimester / SNOMED CT 3670221366 Canceled: Supervision of high risk in first trimester / SNOMED CT 63454101 Canceled: Supervision of high risk in second trimester / SNOMED CT 69046206 Physical Examination General: Alert and oriented, No acute distress. Neurologic: Normal sensory, Normal motor function, No focal deficits. Review / Management Result Review Condition: Stable. Assessment Anesthetic outcome No post-epidural complications noted.. Plan Transfer/ Discharge: Condition stable. Normal [facility] Comment on above: Result Comment: Elec [...] / Confirmed Ovarian cyst / SNOMED CT 267647688 / Confirmed Attention deficit hyperactivity disorder / SNOMED CT 0226304056 / Confirmed Obesity / ICD-9-CM 278.00 / Possible Obesity complicating , third trimester / SNOMED CT 8401389047 / Confirmed Depression during / SNOMED CT 6717002135 / Confirmed Insomnia / SNOMED CT 346464643 / Confirmed / SNOMED CT 038866451 / Confirmed Supervision of high risk in third trimester / SNOMED CT 30521803 / Confirmed Chronic fatigue syndrome / SNOMED CT 96654897 / Confirmed Resolved: / SNOMED CT 966008488 Resolved: / SNOMED CT 857821872 Canceled: Obesity complicating , first trimester / SNOMED CT 8142021018 Canceled: Obesity complicating , second trimester / SNOMED CT 8148609764 Canceled: Supervision of high risk in first trimester / SNOMED CT 73245995 Canceled: Supervision of high risk in second trimester / SNOMED CT 21845291 Review of Systems Respiratory: Negative. Cardiovascular: Negative. [...] The PCEA was started at 0942. Normal [facility] Comment on above: Result Comment: Elec tronically Signed By: Kevin Haley Jr., DO\.rosey\Date and Time Signed: 08/04/20 10:50 EDT UA With Cult Reflexon 2020 Bilirubin Ql (U) Negative Normal Negative [facility] Comment on above: Order Comment: Urina ry Catheter Insertion triggered Urinalysis With Culture Reflex order by discern. Performed By: #### 2 622061, 5180413, [id number] #### [facility] [address] [place] [address] Clarity (U) CLEAR Normal Clear [facility] Comment on above: Order Comment: Urina ry Catheter Insertion triggered Urinalysis With Culture Reflex order by discern. Performed By: #### 2 040223, 3498863, [id number] #### [facility] [address] [place] [address] Color (U) YELLOW Normal Yellow [facility] Comment on above: Order Comment: Urina ry Catheter Insertion triggered Urinalysis With Culture Reflex order by discern. Performed By: #### 2 627399, 2143536, [id number] #### [facility] [address] [place] [address] Crystals LM Ql (Urine sed) Present Normal [facility] Comment on above: Order Comment: Urina ry Catheter Insertion triggered Urinalysis With Culture Reflex order by discern. Performed By: #### 2 363719, 0674150, [id number] #### [facility] [address] [place] [address] Epithelial cells.squamous LM.HPF (Urine sed) [#/Area] 0-2 Normal 0-2 [facility] Comment on above: Order Comment: Urina ry Catheter Insertion triggered Urinalysis With Culture Reflex order by discern. Performed By: #### 2 532968, 5425591, [id number] #### [facility] [address] [place] [address] Glucose Test strip (U) [Mass/Vol] Negative Normal Negative [facility] Comment on above: Order Comment: Urina ry Catheter Insertion triggered Urinalysis With Culture Reflex order by discern. Performed By: #### 2 493364, 6391359, [id number] #### [facility] [address] [place] [address] Hemoglobin Ql (U) TRACE Abnormal Negative [facility] Comment on above: Order Comment: Urina ry Catheter Insertion triggered Urinalysis With Culture Reflex order by discern. Performed By: #### 2 019484, 1536418, [id number] #### [facility] [address] [place] [address] Ketones (U) [Mass/Vol] Negative Normal Negative [facility] Comment on above: Order Comment: Urina ry Catheter Insertion triggered Urinalysis With Culture Reflex order by discern. Performed By: #### 2 452368, 7871120, [id number] #### [facility] [address] [place] [address] [place].plasma/[place].R BC (Bld) [Mass ratio] 0-3 Normal 0-3 [facility] Comment on above: Order Comment: Urina ry Catheter Insertion triggered Urinalysis With Culture Reflex order by discern. Performed By: #### 2 123126, 0543852, [id number] #### [facility] [address] [place] [address] Mucus Ql (Urine sed) TRACE Normal [facility] Comment on above: Order Comment: Urina ry Catheter Insertion triggered Urinalysis With Culture Reflex order by discern. Performed By: #### 2 838848, 2390391, [id number] #### [facility] [address] [place] [address] Nitrite Ql (U) Negative Normal Negative [facility] Comment on above: Order Comment: Urina ry Catheter Insertion triggered Urinalysis With Culture Reflex order by discern. Performed By: #### 2 949148, 9916789, [id number] #### [facility] [address] [place] [address] pH (U) 6.0 [pH] Invalid Interpretation Code 5.0-9.0 [facility] Comment on above: Order Comment: Urina ry Catheter Insertion triggered Urinalysis With Culture Reflex order by discern. Performed By: #### 2 714881, 8595564, [id number] #### [facility] [address] [place] [address] Protein (U) [Mass/Vol] Negative Normal Negative [facility] Comment on above: Order Comment: Urina ry Catheter Insertion triggered Urinalysis With Culture Reflex order by discern. Performed By: #### 2 911854, 2771352, [id number] #### [facility] [address] [place] [address] Specific gravity (U) [Rel density] 1.015 Invalid Interpretation Code 1.005-1.030 [facility] Comment on above: Order Comment: Urina ry Catheter Insertion triggered Urinalysis With Culture Reflex order by discern. Performed By: #### 2 925323, 0586952, [id number] #### [facility] [address] [place] [address] Type of Urine collection method Catheter Normal [facility] Comment on above: Order Comment: Urina ry Catheter Insertion triggered Urinalysis With Culture Reflex order by discern. Performed By: #### 2 931930, 7051234, [id number] #### [facility] [address] [place] [address] Urobilinogen Qn (U) 0.2 {Henny'U}/dL Normal 0.0-1.0 [facility] Comment on above: Order Comment: Urina ry Catheter Insertion triggered Urinalysis With Culture Reflex order by discern. Performed By: #### 2 177291, 8543227, [id number] #### [facility] [address] [place] [address] WBC Auto Ql (U) Negative Normal Negative [facility] Comment on above: Order Comment: Urina ry Catheter Insertion triggered Urinalysis With Culture Reflex order by discern. Performed By: #### 2 304429, 8637104, [id number] #### [facility] [address] [place] [address] WBC LM.HPF (Urine sed) [#/Area] 0-5 Normal 0-5 [facility] Comment on above: Order Comment: Urina ry Catheter Insertion triggered Urinalysis With Culture Reflex order by discern. Performed By: #### 2 191576, 2156050, [id number] #### [facility] [address] [place] [address] Vaccinationson 08-04-2020 Vaccinations [id number]# 1.00CD:127 Normal [facility] Coding Summary.on 08-03-2020 Coding Summary. CD:[id number]:[id number] G h0bWw+PGhlYWQ+TC7NVRZ yW72ogMCqaU7XK7oDFO9O EYCPJHNWWX8EUP9vhCJ9M LltY1AkzgIm NndnkYKtRO60ICd5ZZL2u TftUXwzbY9hePXfP3e8Jd ByER80zU72HOmrFPWwIgP 3LjZpbjsgbWFy F0kyXyVpdFRiUqx+PHRhY mxlIHdpZHRoPScxMDAlJy YbtHbdDS0xAz3fWSBaVTP vbGxhcHNlOiBj b5pcXUZhIWmeGH3uhEayY 2FikVK1AWAqt4z5Nh52uF I+SOGbLKA5tNsvWJdpy41 9UeGmf5ikJBS0 fMQyFTeeHDX1U91gc5E3V EByVSIoWTC0xXB3iY3eaK ipqucuM5HqrLBnUqB2QOZ 7eJPleF3kkDkr mlsvxI3jZtl+X95BPG9XO OJAHH6QEoh8S3TbOsdxpV I+PI70TEVnHY23cQWsbOB et0lboYn8WpOc PSGmVMB9uSaqZNdlv4FeD EChD78hfCOgk6X0NPGjnS xahHFzItOxoZV2cG5lRLi gjvzce5ygaoas Qgrrj7lqpz82hG94S74fW OkrBPTfBCX4EMYgLCBlrA zokl5xwX0zOq2+PSadd4z bl9xuwBd9HzYq XJRvjtJynLfxKAH8p8NaJ s41N7YziOknp7TzJsb7lp 98rPGzi2O4uVB2AZfbNCD aqO4oPYxoTxX8 XCNlLpCsrN28zZRnMZatR d3ocRhifDxfFG7rBKRdso dzGDWwhO5uEYLslAWwzHd gQS1rWBUrtdgp b064YoApLOJ3MAMynODsC 1YfwZ5cTpXbHQDwABEwY1 FigICgRXdpL650MWpkUwI 2LDXiswLlF7Oc ZKZgyZssVhS4g7L0Tw2Ya 2RfznfqDMP4WDskWNI8Br M9CwUyBjI7M6TqMsp7JMH dkIwxJG3mN7Qn TLLbvzpcwdgifZO6ZAVoS NZleJ30kTAeUVqiDn6mc9 Z5q965PPNxOVFbyY29Op5 udDogMTBwdCBU oA2kqrtro2zsbojcIzEeO JYnGLo0MEt3APDivZnnLy VfESD4HpN0LTZ3nIMfsL5 rbWzshqtotY6k Oyc+I22juX8cKIE9ELI4j fnhJCXehyAuMP77AT33D0 RyPjwvdGFibGU+PGRpdiB hfCphTT4dCcSw g0yaa2PxTUdfC2FaBXPqB UchXwd8TUIoKFS9fBN6hT 0bNSVcVRzcu3D1mUE4O7M zkwRooq5iq4pz QYFmJCdzR97gwRTdu7T7R BKjlNR5YEDfdQdwEgMisU 93Oyc+PNImuMaoj4DxIvj ag3dft4bwrSu6 HvLwSJEhpsGgoGgfGEG3g 5TvUf17Z39nLXxlTHOpTR YgEOStSARlaZbkmc8bfU8 wIi8+PGNvbCB3 iBC0nK0tDWJtWhS9SMvyF 154CdFsjLNkEdyda4jwp3 itlTm8FxXhIBTqijQceAq bORI1a7TpKy60 V88rKAgsDGOmWKJqYNPsP YCigXrqdu5fzB4kWl0+PC 7yl4uwyi98pH95oCM+PHR kMJR1xXahJZrs UEJhlJ1vPXejDfN0MPEeL lNvhT67qDJmIJzyMz1yfU yscYleYW3oOPYraxobk64 1BoZam1rkTRDj dGLoHJexKAV5E70we1V9X FJdTQGiXYM9qFS0gC5jgJ lnbjogbGVmdDsgdmVydGl cPFitUCpiL286 IHRvcDsnPlBhdGllbnQgT sTkGDi6I2FjFrm3TIItgK ztLA7lxGHjDUdgSo4yaZa odHrhPN0uKTDf stnhj427HyDlv4ixWJGcb YHwLMblVQS6V42cf2X7JA CaQQMjEAF8gPJ9hE0pyBt nbjogbGVmdDsg nwOwcAijZKwaKZfrE639K HRvcDsnPkJpcnRoIERhdG Z4GT85UJ83hKLyc2K4hUE 0F7DtLXHglsrv ysbcjSG9HNKzAJHwkN05U n4ylFqtTp4tDZMuTAE6AC YxvCHlZ6XmvD2dPdIyEAH iQZBmT0XgeFSp UNpdP461NUbbIiD3OSQwk dIdW7DdMOHroUgiGiW9e6 I3Mi0LO0R1GC62RM62gJP ky4J1lAW6X6Qy TMTtbddmtdtyrDP2YAPkM ZSpnL38Nl2yyPsbIz2zHL PzDVA5NXAwaJRcS4VazE5 yOiAjMDAwMDAw D6JbmCCdTDaoT481GIshL zV1IFQtcwJkM8PnKUGcmN efSxQ2a6V2Uj5AEHq4RG1 9WG99fUUsx0W1 aLY7Y7EoBFJeskkkrrvjl HQ3GOTmLJCkrU97Rs9dbG nwMm3zXHTqBDG1ZTJebZG xJ2MfjB3cOzTc MLJkNJClL4OhyYOrRCilJ 895KVrxPgZ2OVDmvzKyE4 NyLAFvuCloSqI5l6Y7Ee4 ZHYYvXF57WVY5 yUA1MW75XM22L3OiCnpre GFibGU+PHRhYmxlIHdpZH RoPScxMDAlJyBzdHlsZT0 nTy1dFDAeCUQd xIdzqIKkOgCmi8imSWQfI DypQR7onBoeO4GvgZR5ZX Igz4s3Qx22Z84wC4AafGS +QBYrwTE4qWD1 pV9gUtOaVzA7UCwlR621B eTdhGCbRpcww9jay4ufeJ j4ZvK1DRGejrTjsItgAPY 8o3SdXh38O22f IHdpZHRoPSIxNSUiIHZhb Yknrn7icV5gYb0+PGNvbC J7eCA0iU8vWwPvJpZ5NRd rS502PbDbaINi Lnppl3wih4meeHu1VkMmK KUpjxZcaSuzDLB2i0IbAy 21L2BjnFxya7QiZug1xn0 3nRZtx4T9kHQ4 O2LySNWieunfhYPcpSowF C8pHAFadabdWDQywH7tUV UfL2u8TzMpUrE8CEupO6V dguX4BEQswNTv HWfkKYI3V13cg8F9AMPsH QRoLXU0aCJ4xK4oxPuydm ogbGVmdDsgdmVydGljYWw pJPieH288VXDy kLreOCDbhD8sDLUkyMQwa VqfWM7hTDIuzevkGhINMj tVYk4cQAQFEnDVS8BkJHp vdGQ+PHRkIHN0 rIodQVfvHCCmmN3bYJFnF 6j7OzRrJxN1AYloU6WoLD GkdyrsFz01qV0mUuZlPeU 7SQmvP4JylnX4 QRCmlNNiETimYQX3P64st 1Y8ZCUaPBXxWRN4lHU5qO 1hbGlnbjogbGVmdDsgdmV ydGljYWwtYWxp W559DRNonObaAeV8MeSsY bD1ABH7L4AyBif5CSHaaO wdXV1puWXqDPnwEv2jdOf bwPwdQK4nCVWe adrhXPYpuK8eFATlzCXae BgbKS5dZUMfawimo043Rv RnIJT0CJVzxEJcT0FgtK4 yOiAjMDAwMDAw K6CwxNVnPAaoI335AZlmW oL1VWGrrbQhM3JiTOUbzO ttSlG6o3P0Bu6nAGSCHPK yczwvdGQ+PHRk FVN9dAhrXIddPPMifM1rU RQgT1d3RvPbEtC4HGihD3 NtCLMkjztkWd02bF3oKuZ nBxC4AWrcB5Iu lsK5SQMioPQjMDobPBT3V 19yw0U2TBIyEMUnTZT3gO G8uL2ahOcwodwhxYVbtNd gdmVydGljYWwt ENqwW943QZBimGqnJuNta WFsZTwvdGQ+PHNsAJW3kG pcTGoiFYWgnK3lWJYaH1z 1FdVgHfU3JLvz A2YkLUNsppvgPk42qO7cE rQwJiY0HSxaY1FzmwH5SS RwpBNlPUubMZI7S64rt5F 0TFDwAFWhCNP6 nHV7yL1tmYkidyatxYOue DsgdmVydGljYWwtYWxpZ2 89GDIuhFmeGm2LAZJxlRB nZTwvdGQ+PC90 zw55T1IaNbkpAiw9HTAmS FL7uDN7pQ7jTWHiVZxqa5 L9vTN1U1SldpVajl5lf1e fMTDaVPqvL76d qIVbz4Z7VSSffTM5MJEay ZcnUtUqhK47Ljf+PGNvbG mno7SkUgxvp4ncq4fqgMh 9IjMwJSIgdmFs qJylMHA5f3StUu87J50pI HdpZHRoPSIzMCUiIHZhbG mrkb8dfR5fWy8+PGNvbCB 0bWS7bO1mUnVo OsD5GQvpT521WrJnxABrA qxkx3heg0aagYo2RjDkII XsxbXdbYuyZTQ7x0NtNl1 3T4CkgHbot1Xq Jup2su58nCXxh8L6dWN8X 3BhZGRpbmctbGVmdDogMC 6kPMUnpoyoRICuqO9xAJY eF6g0SnYnUlL5 XZfqC1XeixK2UMXizUPnX VWgySQTaH1bskewt3ykuc srWsNmLVEhLHr7CZe5VSO saWduOiBsZWZ0 FfA5YGO9oVYhaE7nfXhiy jeaoT2bJur+VOj5d9kaoY FuUR0ljFA0JI58CR86gTU nb8B3bAM8S3Bj FFLhidlwawxsjVS4IHQeX VHajL75Yn9wmNkyEd3iWQ QqKFO8NLWhdMTkH9IffN2 yOiAjMDAwMDAw G4XldNLyLMjtF672QPsmM aE7DFArjtTdQ1IxJIZqzV bnRvI9g8H7Oh8PVI71RF2 6DT89lBKvb1V8 nSW4M4XoBBXqbulqrfmfy UM4CKVhGIImmG58If1ytJ jxUi4aLGKsVFB0WILtiHU jF7SlwN7bDzPc WDOwFFAoM9EbgKOoNPauZ 283JOdyMgR7KZUeuxMtE3 GdZXTrdMgrOgS3b2E0Fp0 EQv14OG28GL54 vVFnk7C8dVV3P4KmMZZso iurzbsmoVR1UDNjSCRrpM 22Fd3rgSwtDb3pOJHnDYZ 1NSBuxMSnO5Gu gO3jDdBjZKUoTYQhQ5Vwo TUhNEhnA808XCrpDrP3YN WsdwDaJ4CzRPCtgMwmNeY 0x3I8Es7UVZys qsr8E4XhVzyjoID+PC90Y BCyNN00sZSjeJSpc5szpM t8FpSjDYDkLYY8zLdnUXr wd6CkVVWhC86i bGFw (more content not included)... Normal [facility] Ambulatory Clinical Summaryo n 08-02-2020 Ambulatory Clinical Summary {jg-12-u2-[id number]-[id number] -[id number]-rl-78-fc-[id number]-09 -9c-6a}CD:[id number] [facility] Insurance Correspondenceon 0 08-02-2020 Insurance Correspondence [id number]#1 .00CD:127 Normal [facility] Insurance Correspondence Off iceon 08-02-2020 Insurance Correspondence Office [id number]# 1.00CD:127 Normal [facility] Insurance Correspondence Office [id number]# 1.00CD:127 Normal [facility] Nursing Assessmenton 021 Nursing Assessment [id number]# 1.00CD:127 [facility] Obstetrics Office/Clinic Not jasmine 08-02-2020 Obstetrics Office/Clinic Note Chief Complaint OB 38w 5d, baby moving, occ. [place], swelling bilat. feet, woke up with Migrain in middle of night Obstetric History History (1,0,0,2) # 1 Baby 1 Outcome Date: 2008 Outcome: Live Outcome or Result: Vaginal Gender: Female Gest Age: 41 weeks Wt: 3232 g [facility]: [facility] Labor: -- Child's Name: -- Baby's [...] Description: -- Comments: -- Entered by: Caroline IHLARIO on 04/21/2020 Other [place] Calculations for this [...] trimester) Ordered: Office Visit Level 4 Est 97780 2. Obesity complicating , third trimester (O99.213: Obesity complicating , third trimester) Ordered: Office Visit Level 4 Est 57408 3. Depression during (O99.340: Other mental disorders complicating , unspecified trimester) Ordered: Office Visit Level 4 Est 51352 TH 4. 38 weeks gestation of (Z3A.38: 38 weeks gestation of ) Ordered: Office Visit Level 4 Est 22800 TH Follow-up With When Contact Information Funmilayo ESCOBEDO MD In [address] [place] [address]- Additional Instructions: Problem List/Past Medical History Ongoing Attention deficit hyperactivity disorder Chronic fatigue syndrome Depression during Insomnia Obesity complicating , third trimester Ovarian cyst Supervision of high risk in third trimester Historical Medications Multivitamins, 1 tab(s), Oral, Daily Allergies No Known Allergies Social History Alcohol - Denies Alcohol Use, 11/21/2009 DENIES, 04/14/2020 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 [...] Protein Urine Dipstick: Negative (08/02/20 16:30:00) [facility] Comment on above: Result Comment: Elec tronically Signed By: LAURA MACEDO, Funmilayo Garner.rosey\Date and Time Signed: 08/02/20 17:10 EDT Patient Educationon 08-03-19 Patient Education Obstetrics and Gynecology Score An [...] 05/13/2008 Document Revised: 07/07/2019 Document Reviewed: 07/07/2019 [employer] Patient Education ? 2019 [employer] Normal [facility] Discharge Instructionson Discharge Instructions [id number]#1 .00CD:127 [facility] Inpatient Clinical Summaryon 07-31-2020 Inpatient Clinical Summary [address] [address] Clinical Summary Person Information Name: MYA MYLES [facility] Age: 30 Years : 1990 Sex: Female PCP: Chao Blackwell III, DO Marital Status: Single Race: White Ethnicity: Non- or Language: [place] Citizen Visit Id: Visit Reason: Speciality: Acuity: Obs Enc Type: OB Triage Med Service: Obstetrics Arrival: 07/30/2020 21:16:34 Discharge: 07/30/2020 22:58:00 Dispo Type: Home (Routine DC) Address: [address] [place] [address] [place] [id number] Provider Notes: Diagnosis: Problems Active Insomnia Chronic [...] Follow up: With: Address: When: Funmilayo ESCOBEDO [place] [place] [id number] Business (1) In 3 days 08/02/2020 Comments: [...] Type Location Start Finish State WH SOV [facility] 08/02/2020 4:30 PM 08/02/2020 4:45 PM Confirmed WH [facility] 09/15/2020 9:00 AM 09/15/2020 9:15 AM Confirmed Patient Education Information: Normal [facility] Inpatient Patient Summaryon 07-31-2020 Inpatient Patient Summary [address] [address] Patient Discharge Instructions PERSON INFORMATION [...] up: With: Address: When: Funmilayo ESCOBEDO [address] [place] [address] [employer] ([place] In 3 days 08/02/2020 Comments: Keep scheduled [...] provider. Type Location Start Finish State SOV [facility] 08/02/2020 4:30 PM 08/02/2020 4:45 PM Confirmed [facility] 09/15/2020 9:00 AM 09/15/2020 9:15 AM Confirmed Comment: IJUSTINO VANESSA L, have received the attached patient [...] to serve you. Thank you for choosing [facility] Consent for Treatmenton 07-19 Consent for Treatment [id number]# 1.00CD:127 [facility] Consent for Treatment [id number]# 1.00CD:127 [facility] Insurance Correspondenceon 0 07-29-2020 Insurance Correspondence [id number] #1.00CD:127 [facility] Insurance Correspondence Off iceon 07-29-2020 Insurance Correspondence Office [id number]# 1.00CD:127 [facility] Nursing Assessmenton 021 Nursing Assessment [id number]# 1.00CD:127 [facility] Ambulatory Clinical Summaryo n 07-28-2020 Ambulatory Clinical Summary {[id number] Jerardo Gonzales [facility] Obstetrics Office/Clinic Not jasmine 07-28-2020 Obstetrics Office/Clinic Note Chief Complaint OB visit 38 weeks . Obstetric History History (1,0,0,2) # 1 Baby 1 Outcome Date: 2008 Outcome: Live Outcome or Result: Vaginal Gender: Female Gest Age: 41 weeks Wt: 3232 g [place] [facility] [place] Labor: -- Child's Name: -- Baby's [...] trimester) Ordered: Office Visit Level 3 Est 07165 TH 2. Supervision of high risk in third trimester (O09.93: Supervision of high risk , unspecified, third trimester) Follow up in 1 wk. Ordered: Office Visit Level 3 Est 06906 TH 3. 38 weeks gestation of (Z3A.38: 38 weeks gestation of ) Ordered: Office Visit Level 3 Est 42318 TH Follow-up With When Contact Information [facility] In [address] [place] [address]- Additional Instructions: Problem List/Past Medical History Ongoing Attention deficit hyperactivity disorder Chronic fatigue syndrome Depression during Insomnia Obesity complicating , third trimester Ovarian cyst Supervision of high risk in third trimester Historical Medications Multivitamins, 1 tab(s), Oral, Daily Allergies No Known Allergies Social History Alcohol - Denies Alcohol Use, 11/21/2009 DENIES, 04/14/2020 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 [...] Protein Urine Dipstick: Negative (07/28/20 16:33:00) [facility] Comment on above: Result Comment: Elec tronically Signed By: RHONDA DICKEY, Caroline\.br\Date and Time Signed: 07/28/20 16:52 EDT Patient [...] a pot with a lid). Bathing ? Infant bath basin. ? Mild baby soap and baby shampoo. ? Soft cloth towel and washcloth. ? Hooded towel. Diapering ? Diapers. You may need to use as many as 10?12 diapers each day. ? Baby wipes. ? Diaper cream. ? Petroleum jelly. ? 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 ? Hand distribution sales manager. Health and safety ? Rectal thermometer. ? Infant medicines. ? Bulb syringe. ? Baby nail [...] ? Consumer Product Safety Commission: www.cpsc.gov ? [place] [employer]: www.healthychildren.o rg ? [employer]: www.safekids.org Summary ? Planning is important before bringing your baby home from the hospital. You will need to have certain supplies ready before your baby arrives. ? You will need to have a rear-facing car seat ready prior to bringing your [...] 01/17/2009 Document Revised: 01/17/2018 Document Reviewed: 12/25/2017 [employer]Order Patient Education ? 2019 [employer] [facility] Coding Summary.on 07-27-2020 Coding Summary. CD:[id number] G h0bWw+PGhlYWQ+QS7SHZD iE69xbZNznO2DW3dBYC9S YRJBANAIMX0RDJ2gjXD3U IgbR6DxvaYo WawxoKNwUZ61UYh6SYT3l AnwLDqatI1clHQqD8x3Ov EtIZ91yA86ZQwyYFNvZkS 3LjZpbjsgbWFy A6xaYzHgsOSaNtm+PHRhY mxlIHdpZHRoPScxMDAlJy KwqXxuRS2oIz9sEHTgLFH vbGxhcHNlOiBj v5hcNQIqLAcvKB3lbNttJ 3OnwYF6YMOey2j4Mt23gV I+BTReCUG4xBcuARkdx68 7KaUcp1zsHYM7 uMQrCTxuXEQ7O03kj5P5C RWiNQUuOOF8dMO7pF5xsU xxzvyoP0DpnNSxJoT2OEY 9wOGruE4joEqd lnmleX9yDkk+K61ZDS6PD AMASB3IAkc4D8LwMdgjpV I+CR07RMRyMJ31lPXltYY uj8mcvZs9TpCg NJGyGRS2nFsaAJcfl0VfT SGiI64ubXAtz7I2ZCLstH nbzYBzKoVytDA7vF3uQTn pifyeg4ozsdyr Bgoiq8pxon02rX03J64aX HmoLBGwSTP7LBDvZOGpmP llpd8qfK6bMg5+VLhqb5x gh7nqvGs1BeRl FBHmzlCwrCzxQXD3d2ZcF v65Y3AusMehr6GzNci9gp 94hUIta9T3pXD0UWoiPYL klO1xVAntIxQ6 WRBuOyGtkQ06uMJjGYwvN s1ynAojtTlcPH2yIZRsul edGYLigV9uIEKypQIikMu kNR2eEYRzybbj z549ZxIwMVC5TLPepNNzK 5VroE8cWaRzAVOoNDFqW3 XggYEtNZafK153HJjyPxU 0DZSbzlFuI3Jq MIWbjKnvWbA0o2T1Co3Nj 5ZoakevCQE3RAzmYCE9Ck R3EkIfKsT4V0MoSim5FBT sdHjdGV7cA3Qq WIRpsuhudtfelZQ9HSQbU GJzlR89yTCaGQncWd1vi4 H0r178JDOhONXrcI45Cq9 udDogMTBwdCBU sK9wrbodc0yzdzsiRmXwR XQqEXk7ZEy0ICYmnZnbWo CaVIQ7GzI0NUV2mCVmnS7 sdAaelxtzcT7b Oyc+A68eaA1dEIP9SPK9v lveVHNmreZyYH47QS67O5 RyPjwvdGFibGU+PGRpdiB ivHknTI8aXjLt e4czc0AnQAhhR5EgGSCbC ZpaHxk5CBJlLGZ2iWC8pW 7sROLcRSfhd1I2zFZ8Z9D hztJftj0jm8um UNEtQYkzG85wbASdi2G9L UTraXE2ZHGkcJcuJsGloM 93Oyc+FVTvbBwsm5KnClb xa5hvj0siuUi0 YzTePMGsjlWgtBhgIWD9m 4AhQj56R31hQStzVXEpPR MrJGQzJOSmoPbeoc0egT9 wIi8+PGNvbCB3 bNN0cI6nYWXjQwS0ORisG 764YiBnsVHbKeode8gyn7 tqqKr5SwTbJROdfvVkuEl uIRZ7g0KpMw10 I94pVJabBPNeEMZqAQMdY COzgHgmay4whF1uSr7+PC 6vc9mbxe02vV28pBY+PHR gMSM0uUpgWXxp HMFqjX2eLYcmNcM2HTVuM gIifD74xKUwSTpkTz8dbV lgrIycXZ8sIMVihvwqe93 5CqVcn7wpZBQj nBKxGOhaWSZ7Q22ae0C5W OBhHYWyIAJ2nCS1iK5olC lnbjogbGVmdDsgdmVydGl wYJnqHRdnT370 IHRvcDsnPlBhdGllbnQgT oQdNOf9K1GjQhq0YYTidU ihIX3hdKNcYDxfIh7umZb uaYmyMS0rSEUh tvntx945CuWqu6whSCIwc UNfSZurCRZ8D59if1E6CP PvRKEvOJD0qRS9aP8ygXk nbjogbGVmdDsg dfBdxUcwDJveKKavU408L HRvcDsnPkJpcnRoIERhdG F8RD01AF84jHJfm7N8lGL 2G0JhIGBmepyv jlubrEY3XSJoQENtsH40A x4ipIxuPu6zIWOcOFH4GN BmeHYsK1NetP9lRoJrGUX nXQFwD9AikQEo OLmvJ177ODlhCgG9ZSQlm aRxM8WrDYSaqChzXoY8c0 Z9Yk4PF1F4YB31IQ30fAQ lg0P3tEC5I8Qx QVQfoknyakurrJB4FMYhQ ZOzlA34Um2bsYlmXn8fLO LiJYC9IWKbvPBjN3SrsX0 yOiAjMDAwMDAw Q8TizQYiGLkyA075CHfhW uS3ZADptcUnB4GiPUYalN dsSmR7y8B2Aw6YFId9HY2 6CF72jTXdi1Y3 sCB9G0DeZCOyssijclbpa RL0GSIhBKTezL34At2jqD nfFc8sZWOcXBT4YWHpdGA uC0PspK2vXlWt XSJzXCQgW0WvfTApAMpyH 956RSsqHxI7WVRdssQbG4 KyYGPecElxYxL8r4N5Ya7 YPZFiSK87PBQ7 fRQ7WT13WB72X8QeWruvk GFibGU+PHRhYmxlIHdpZH RoPScxMDAlJyBzdHlsZT0 hAd7vFWLmQXCa zAvpcJMaBnBbr3xaVQTnL RmyNL0enSdrU0CflEQ6KS Iul6t1Ye89H58vL7BhiSY +QMFofSS9pED0 iX0aJyZlAaE9LCloM963Y vVekEZpGizax6csa3dgpK z6MmT2MIRfkoHzzLrzBVE 6r3SqVh60M69e IHdpZHRoPSIxNSUiIHZhb Dgvbs7csY6qJt7+PGNvbC W1cLP9sU4zXgKjTrG1LNy nA247CtCjkNFm Tbhvc5nfm7nhpBx0JnErK AYxmbRhkJbgOPC6u0NyEc 71L2CohAwwn0XwKbc2jz7 6uSFwq8E4aQT9 A6VtLMBrdlhaaCJgkIwzX Y6eRUHylrbxTYSpsT1tSG SnO7y7EfAqTkY4MPoeJ0M ljpM2MTDyzLPx ZXrcMVC6P34ky2A5PVScR HFxTQJ2eQS8bJ3hsVgerz ogbGVmdDsgdmVydGljYWw pDXwwQ290KXVu pTqgIFAtgD7jXNLqwVUwm LhnGZ2bZPJwvxbaHnUIJe iURm4wNLCNKbOAY9SyGXr vdGQ+PHRkIHN0 pNisBJpkBWVyfR5lJYJdQ 6u4LeNyCqX6YHacU4QwWK LboehyVe46bI9rKsHyGrR 0DHmbV0MrdrN2 QIIruMUmIXvnUJM6P72ef 3T5EQCpIGUxHNO7xNT8xE 1hbGlnbjogbGVmdDsgdmV ydGljYWwtYWxp P983KRLmiXfgOsP0TcAsB pZ0YMM7U5CwLkb3VNErfV fyPU1csZCnZWsqRq9miIz ggDnaIG9mPOEz txpiHGKdaQ9vJORnwPTbh UdsNP0qAVAriopzu404Ls ReVMF2ZHEezBHsE8JvdW2 yOiAjMDAwMDAw V1FfyFZvEBsiI782JKufF jV2KATkybCfF7OpISEkyP beHbR4u2S6Yy0iETGWFNX yczwvdGQ+PHRk QZV7oQtsVUtjKVAlrC4yR EWkU2i9MfEmRxR5WSsjZ4 AzHQCiizqoOn91aB6oVmT vZbQ7AJvaL1Rn yfS8GNHzzSZxDZdnRUU6D 48wq3F2LLXfILTcUGR1aH E3zF9evBwgvblkpXLxvZx gdmVydGljYWwt DMkfP228TKYyzIdqBePyu WFsZTwvdGQ+VTSfXXG3dZ yyTJjuSWVnwM4wXMSpL3r 6FuZcSkR0MWgp A7EwQUCfgigkIr53kB2zY iBySjU2RHhyZ8HemoZ8RP OeqUQsCUreGHJ9K06wh4C 3LPQkXDHuUQT3 fPZ3gZ0wnSramoxisRMgz DsgdmVydGljYWwtYWxpZ2 68UZDilTsvBm7CPBMehWO nZTwvdGQ+PC90 bo48Y3EgGltrSzc3AWPuQ DL6pXK9qZ6nKDEbRFdjc6 M5rIU5N7EnpkBscy6ox4h bHEAaJSluM35a iJWuj6E3GPAdiIV1HGGzd XjpGkAtrK98Clf+PGNvbG kca9MfHuyzk3jlr5kleKk 9IjMwJSIgdmFs yBulVJS2l3UvQw33O34yY HdpZHRoPSIzMCUiIHZhbG sthi7exH4tYb6+PGNvbCB 6zHX1jE4nPlRf SsM4YDkoT131UpQplUBpD jpfl1daz2vtkTu1NgTpIZ YtgmQobQgcMUQ7y6LvCp5 4L8ElaSjoo2Ky Dlu4qq77oXVzy1C0bOX7K 3BhZGRpbmctbGVmdDogMC 4aNPQbqgwvNLPjvA4qRYC mT9g9RnTyEgP2 KWghA9QjdoS0QLZjdWXvT XXopRUZmN6qezjqo1ssmi azVtWrPITzQSp6PYe9WXQ saWduOiBsZWZ0 OuX3TWQ9aHYsdX4hkQxue cgwjU2jVjv+GLk8c5uvxH JiQC5mrOK3OL26VX73wLH un9W7kEV6K6Xs CRBiybywkkiuhFK2CEKsZ YXtwM25Bv8agFllSy0uKP EeGEU2MRTbaAQgD3HmsA2 yOiAjMDAwMDAw R5DsbECkOTykU262SVioF gZ7BRZvbeXjA6GrTTHomC qrJwQ0l8N1Ng3BBM21EJ3 4WJ44rWYth4N6 kFB3H6GqCDRwekktezxzq CA3ZUPhRYRsfG71Lf1lxM alSz3yEZVvGFH9CACmdLK yW8EmzT9wYyDf TGHbUSUbX7FwhALrTTrdQ 557SPgbAaP0IDFwdxIzR8 WoJIUsnZxnHzY2m8X9Za1 EHj02HJ46EJ62 tEIsy7U8jZR4C8KbTIBjt qfndvcxdGE5KBBrLOSyxA 37Xq1ajTjhSr5nQLOuBME 8EDVmoPVxT1Uw mY6tTjGxZEJxDMGsI0Pbk WXuAFzeZ594JOyiDbF8RT UxccYzW9DhNPVcwZazShT 0v4Q5Lr1RGFzw dgk1K3PdDjinmPY+PC90Y PGnXI70rAPmuNCeh5pwfW l9IoBlAKMzFYZ1eVacABw gf3YyGUZaE18v bGFw (more content not included)... [facility] Consent for Treatmenton Consent for Treatment [id number]#1 .00CD:127 [facility] Discharge Instructionson Discharge Instructions [id number] #1.00CD:127 [facility] Comment on above: Other Comment: incco rrect title Discharge Instructions [id number] #1.00CD:127 [facility] Inpatient Clinical Summaryon 07-26-2020 Inpatient Clinical Summary [address] [address] Clinical Summary Person Information Name: MYA MYLES [place] Age: 30 Years : 1990 Sex: Female PCP: Chao Blackwell III, DO Marital Status: Single Race: White Ethnicity: Non- or Language: [place] Citizen Visit Id: Visit Reason: CONTRACTIONS Speciality: Acuity: Enc Type: OB Triage Med Service: Obstetrics Arrival: 07/26/2020 14:59:40 Discharge: 07/26/2020 16:40:00 Dispo Type: Home (Routine DC) Address: [address] [place] [address] [address] [place] [id number] Provider Notes: Diagnosis: Problems Active Insomnia Chronic [...] up: With: Address: When: Funmilayo ESCOBEDO [address] [place] [phone] Business (1) Within 1 week Comments: Call for any problems. Call for fever > 100.5 F Return for contractions closer, longer, and harder Return for decreased movement Return if ruptured membranes or vaginal bleeding Type Location Start Finish State SOV [facility] 07/27/2020 2:45 PM 07/27/2020 3:00 PM Confirmed WH SOV [facility] 08/02/2020 4:30 PM 08/02/2020 4:45 PM Confirmed WH BI[facility] 09/15/2020 9:00 AM 09/15/2020 9:15 AM Confirmed Patient Education Information: [facility] Inpatient Patient Summaryon 07-26-2020 Inpatient Patient Summary [address] [address] Patient Discharge Instructions PERSON INFORMATION [...] culture Follow up: With: Address: When: Funmilayo ESCOBEDO [address] [place] [address] Business (1[place]zo Within 1 week Comments: Call for any problems. Call for fever > 100.5 F Return for contractions closer, longer, and harder Return for decreased movement Return if ruptured membranes or vaginal bleeding In the event that this physician does not participate in your insurance network, please consult with your insurance company to find a nearby participating provider. Type Location Start Finish State SOV [place] 07/27/2020 2:45 PM 07/27/2020 3:00 PM Confirmed S[facility] 08/02/2020 4:30 PM 08/02/2020 4:45 PM Confirmed BI[facility]EN[facility] 09/15/2020 9:00 AM 09/15/2020 9:15 AM [...] to serve you. Thank you for choosing [facility] UA With Cult Reflexon 2020 Bacteria LM Ql (Urine sed) TRACE Normal Trace [facility] Comment on above: Performed By: #### 2 191662, [id number], [id number] #### [facility] [address] [place] [address] Bilirubin Ql (U) Negative Normal Negative [facility] Comment on above: Performed By: #### 2 739528, 3204208, [id number] #### [facility] [address] [place] [address] Clarity (U) CLEAR Normal Clear [facility] Comment on above: Performed By: #### 2 608193, 6335949, [id number] #### [facility] [address] [place] [address] Color (U) YELLOW Normal Yellow [facility] Comment on above: Performed By: #### 2 485133, 6269126, [id number] #### [facility] [address] [place] [address] Epithelial cells.squamous LM.HPF (Urine sed) [#/Area] 5-8 Normal 0-2 [facility] Comment on above: Performed By: #### 2 751242, 0538919, [id number] #### [facility] [address] [place] [address] Glucose Test strip (U) [Mass/Vol] Negative Normal Negative [facility] Comment on above: Performed By: #### 2 363967, 7421800, [id number] #### [facility] [address] [place] [address] Hemoglobin Ql (U) TRACE Abnormal Negative [facility] Comment on above: Performed By: #### 2 592772, 4795963, [id number] #### [facility] [address] [place] [address] Ketones (U) [Mass/Vol] TRACE Abnormal Negative Fi [facility] Comment on above: Performed By: #### 2 976176, 4691007, [id number] #### [facility] [address] [place] [address] [place].plasma/[place].R BC (Bld) [Mass ratio] 0-3 Normal 0-3 [facility] Comment on above: Performed By: #### 2 995891, 4535103, [id number] #### [facility] [address] [place] [address] Nitrite Ql (U) Negative Normal Negative [facility] Comment on above: Performed By: #### 2 792934, 1993592, [id number] #### [facility] [address] [place] [address] pH (U) 6.0 [pH] Invalid Interpretation Code 5.0-9.0 [facility] Comment on above: Performed By: #### 2 010395, 4007395, [id number] #### [facility] [address] [place] [id number] Protein (U) [Mass/Vol] Negative Normal Negative [facility] Comment on above: Performed By: #### 2 244172, 8409234, [id number] #### [facility] [address] [place] [address] Specific gravity (U) [Rel density] 1.020 Invalid Interpretation Code 1.005-1.030 [facility] Comment on above: Performed By: #### 2 610393, 5458447, [id number] #### [facility] [address] [place] [address] Type of Urine collection method Clean Catch Normal [facility] Comment on above: Performed By: #### 2 883777, 1231415, [id number] #### [facility] [address] [place] [address] Urobilinogen Qn (U) 0.2 {Henny'U}/dL Normal 0.0-1.0 [facility] Comment on above: Performed By: #### 2 872282, 8660822, [id number] #### [facility] [address] [place] [address] WBC Auto Ql (U) TRACE Abnormal Negative [facility] Comment on above: Performed By: #### 2 059791, 4859501, [id number] #### [facility] [address] [place] [address] WBC LM.HPF (Urine sed) [#/Area] 0-5 Normal 0-5 [facility] Comment on above: Performed By: #### 2 195628, 4258975, [id number] #### [facility] [address] [place] [address] Yeast LM Ql (Urine sed) TRACE Normal F [facility] Comment on above: Performed By: #### 2 525139, 3722181, [id number] #### [facility] [address] [place] [address] [place] 07-22-2020 Consent [id number]#1 .00CD:127 [facility] Consent for Procedure/Surger yon 07-22-2020 Consent for Procedure/Surgery [id number]#1 .00CD:127 [facility] US Follow Upon US Follow Up Exam [...] by: Alexy Conn MD, V. Transcribed by: ERMELINDA Technologist: ADEN Technical Comments LCIFFORD 08/11/20 CLIFFORD Obtained CLIFFORD by US GA 37w 1d History 3 Para 2 Transabdominal Ultrasound Performed Placenta Location posterior Placenta Grade 2 Positioning Vertex Amniotic Fluid Volume Normal [facility] Ambulatory Clinical Summaryo n 07-21-2020 Ambulatory Clinical Summary {[id number]}CD:[id number] [facility] Ambulatory Clinical Summary {[id number]}CD:566201 [facility] Obstetrics Office/Clinic Not jasmine 07-21-2020 Obstetrics Office/Clinic Note Chief Complaint OB 37w, baby moving, swelling fingers and feet goes down with rest and elevating them Obstetric History History (1,0,0,2) # 1 Baby 1 Outcome Date: 2008 Outcome: Live Outcome or Result: Vaginal Gender: Female Gest Age: 41 weeks Wt: 3232 g [facility] [facility] [place] Labor: -- Child's Name: -- Baby's [...] trimester) Ordered: Office Visit Level 4 Est 24045 2. Obesity complicating , third trimester (O99.213: Obesity complicating , third trimester) Ordered: Office Visit Level 4 Est 25780 3. Depression during (O99.340: Other mental disorders complicating , unspecified trimester) Ordered: Office Visit Level 4 Est 50652 4. 37 weeks gestation of (Z3A.37: 37 weeks gestation of ) Ordered: Office Visit Level 4 Est 41557 TH Orders: metronidazole, 500 mg = 1 tab(s), Oral, q12hr, X 7 day(s), # 14 tab(s), Refills(s) 0, Pharmacy: [id number], 158, cm, 07/07/20 20:05:00 EDT, Height/Length Dosing, 88.3, kg, 07/14/20 16:41:00 EDT, Weight Dosing Follow-up With When Contact Information Funmilayo ESCOBEDO MD In [address] [place] [address]- Additional Instructions: Problem List/Past Medical [...] Protein Urine Dipstick: Negative (07/21/20 16:41:00) [facility] Comment on above: Result Comment: Elec [...] 05/13/2008 Document Revised: 07/07/2019 Document Reviewed: 07/07/2019 ElseHeTexted Patient Education ? 2019 [employer] [facility] Provider Letteron 07-21-2020 Provider Letter July 21, 2020 To Whom It May Concern, Mya Myles is scheduled to be induced on 08/04/20. [facility] [address] [facility] Ambulatory Clinical Summaryo n 07-14-2020 Ambulatory Clinical Summary {[id number] -[id number]}CD:432065 [facility] Obstetrics Office/Clinic Not jasmine 07-14-2020 Obstetrics Office/Clinic Note Chief Complaint OB 36w, baby moving, [place] in morning, feels like underwear are wet and has to shower frequently. Contractions all night and not able to sleep Obstetric History History (1,0,0,2) # 1 Baby 1 Outcome Date: 2008 Outcome: Live Outcome or Result: Vaginal Gender: Female Gest Age: 41 weeks Wt: 3232 g [place] [facility] [place] Labor: -- Child's Name: -- Baby's [...] Test Q0114 Office Visit Level 4 Est 20843 NC 2. Obesity complicating , third trimester (O99.213: Obesity complicating , third trimester) Ordered: Fern Test Q0114 Office Visit Level 4 Est 08596 NC 3. Depression during (O99.340: Other mental disorders complicating , unspecified trimester) Ordered: Fern Test Q0114 Office Visit Level 4 Est 23116 NC 4. 36 weeks gestation of (Z3A.36: 36 weeks gestation of ) Ordered: Fern Test Q0114 Office Visit Level 4 Est 28925 NC 5. Bacterial vaginosis (N76.0: Acute vaginitis) Ordered: Fern Test Q0114 Office Visit Level 4 Est 90663 NC Orders: metronidazole, 500 mg = 1 tab(s), Oral, q12hr, X 7 day(s), # 14 tab(s), Refills(s) 0, Pharmacy: [facility] #[id number], 158, cm, 07/07/20 20:05:00 EDT, Height/Length Dosing, 88.3, kg, 07/14/20 16:41:00 EDT, Weight Dosing Follow-up With When Contact Information Funmilayo ESCOBEDO MD In 1 week [address] [place] [address]- Additional Instructions: Funmilayo ESCOBEDO MD In 1 week [address] [place] [address]- Additional Instructions: Problem List/Past Medical History Ongoing [...] type 2: (more content not included)... [facility] Comment on above: Result Comment: Elec tronically Signed By: LAURA MACEDO, Funmilayo Ryan\.br\Date and Time Signed: 07/14/20 17:27 EDT Patient [...] 05/13/2008 Document Revised: 07/07/2019 Document Reviewed: 07/07/2019 ElseHeTexted Patient Education ? 2019 [employer] [facility] Coding Summary.on 07-12-2020 Coding Summary. CD:[id number]:[id number] G h0bWw+PGhlYWQ+ML6ZOJD qT53ojRKkcJ6LI3sXEU1L GCTKBIHFVO4WYO7fjOG8J GzlZ3KmhzMp StitfQRjUL76YLk3XLV0k PvgSGahoM4sjYJaI0z3Ru ErIK72oI97LQlqAUBxNwV 3LjZpbjsgbWFy V3qnVxXtzZTkOfy+PHRhY mxlIHdpZHRoPScxMDAlJy WsqNmtVW7fFs0gOBRlMLE vbGxhcHNlOiBj d8nrWSOaBIenEZ1utNxxG 1OlbNE5JLVkp6j2Wz88uY I+XCPhSZD6kZwnOLune24 7CdJsw9uxORN5 yBVfXYctOFO3R78ei0Y8G DTuRLNwEBV3rKS1hM2ypW ocltlrY3UpzRVlLpB0XXH 5pTUgmS1tsBpl ipjhjY5tPck+G07TGG1RX FZHMJ4GOxa2U7EeUbpchR I+GM27KSHxYB64hTAycEW sm4armMs5TeXb LLPuAUC3zJasQVoji2LhR ETpP55wvKRjo8D4GGFqnG lbpNHzWzIhfPR3aI7tWKj yhseyb8htqjjh Qzhqp4chne65sV36R22sR SaiZEKzXYC5WXDmFHKfkN goot8mdJ8iTa4+HCuuu4k ti8fvtJu5UyVl QGBjqdPuxOwvKXS2b2NfU w74H3TfiBubs1IaPix8vm 13uUXcm7F2iHP1CHbeYJO loT7hYGtoMiD9 HHKuFfUkxK88jTUeKJxzL c3hdOmhjIbrNU4uCTNkgz bcTTSheY4nAYHcpCAudIx hHR9mMOUfqiap e663PfHeTEN1SKPmyIBjH 4HryH9bRuYzPAZpVKQxK7 QkvXWvLVplQ835HZczCgO 8RVOdhrTtB7Km YROaoDfmWfC8h1B3Lg7Ex 7UjntlzZZP7OOzaIUY0Hb W4MkGsWsM4O6JrKan8BJB zdVxkNK2xK6Ph BNMfnndoytxefMZ4KYYxS EMcvS91eAZiMFglJb0kb8 I9o319XKWaKDZasW70Jd7 udDogMTBwdCBU eF9vkdoic3kvnsbnZoDdS TVjIIb7BQz8PBSxuDwkCy QlSCW4GsO7THD6vZGnvW6 ymFlixcxbcZ2g Oyc+Q03jgT9dZXB1NGB1n eakTWAiklGySJ52YI72H6 RyPjwvdGFibGU+PGRpdiB gcKpoUO4xYvCq m3lue3BaVAubZ9FqSUYvX ZlnLjp7UPCgRQO4iNV7mD 0sWCYaUXvjg7C3lYP8X1B dgvMzyx1ja6jt DPOtOXkxX72ypADqf0U5B FZswTT6DWWvrXgmJcLgrL 93Oyc+EWNjyAdoa0TpYbb lk8pcq5mudKn9 VtPwNYLcbgZajZeeGQX6j 3PzWi74I29pROvoUSMoXB HxQWTbBDZgdClzmb4ovQ1 wIi8+PGNvbCB3 hLM5jD6dMOTySgX1BJgiW 778JvNdfRWpHavtp5dcp6 ggcTi7CoIyYWSdbsDccTw xLEJ9m5OlZw43 S80cMIahRIJnKBQgTCJfK CEiuBvqvo2ojA1oZt8+PC 6uh3ejii83cJ50oDY+PHR mZNV6iMxrVUnv AUJnaZ4mLMslVlA8CQWtJ jCrqF50zLJjOQyqDp6eiP invXceBQ3dTVLvscdvz21 6YyGbl5xcGBHa lZZyEMtmTON9I39kl5Q5M KJkACTiTNU0qAM5iC3evD lnbjogbGVmdDsgdmVydGl fPAdjIEovK551 IHRvcDsnPlBhdGllbnQgT nYtLOd6F4TmNfs5PHHccD tzBG6dtKQpMSbzVl4nvHh vnNhwGL2vSBCt nazyd556MlYlk7cyTQUub GYjXFshXAN7T06hc9U5EO RvTXEgBXS1qPI9qC6tsPm nbjogbGVmdDsg mjDbbYekXYsjMTzyI037L HRvcDsnPkJpcnRoIERhdG R3LG64LE09mTXkn2H4cZF 4U1LhDLFzrcei maaoeZG5RUTaSLLosT77V t9arMgpQn8aHVHeHBU2TR TsnKFsZ9FtbL1xUmAoWJD lAOKgJ5WrcGXf FNbwT277EAzuWlC2YFYrf nChI9StKRHzbPogGoM9i1 Q0Bq1IF9K4BN63UH45yNA cm6Z5pJC0Q1Sg EABcnjyzwaedbTW1DLFsV RKgoK98Hh4yeCzgEa4pZZ IwDCG4WGCxnUVtM8QmpH0 yOiAjMDAwMDAw Z8AtcYGtBAzkY657MHffG qG4DAHjanHrK2IkSZIngT vyVsN7a1P2Pg6XLUz8WI2 5HG37mOLgq2I6 cAV8X4YlBLYkdsbfvptny HX3YUHdILQhgT48Yj4ceL vcLa5uKFBhNXF3BSOrgBP mW1ZjfI7rUwYx CAYdOAXwS9GoiJTyOMsjO 557XPynLfO0JUGgrxWzQ5 LxORLogGdtGuX4s7I2Vm8 DBSGtOB09WUU0 nBM5EA50TJ91R8YgZfsnh GFibGU+PHRhYmxlIHdpZH RoPScxMDAlJyBzdHlsZT0 rPd9eKQTwHONf iVqcnWYhUaNce1ouVCVhU VahTQ6qdFmyX2AlyGP1CA Lhs6m2Nr26E63gY0DkhLT +BHQymZA2nGL6 oR8sUfPgOwL9EFdpK969S uYupTFiBthvz7hqr5afgE v4OoU4GOFiqdVmkJdfYOV 8j2RlEk58P24h IHdpZHRoPSIxNSUiIHZhb Yutjc9foO6kJh0+PGNvbC S2jDG8sS6wHiJwRwZ6AMy jF159JuTzjFJi Ddbvm4gex5cplYw5EmOmX BYzpmCsvLdoLWF8f9FkVy 09N0EzvRjjr0ObJvb7yg9 8yHXjq4N1vNF1 E6QxFMNhnzrnaNLeuZrjS L2mMWTugydqFLYqmT0zLJ WwJ2g6QmDbUvI6FIgzI9Y qowL2FXPipXIe GPpsQYE7M08in3W4POGnT WAhFLY2ySJ3kI0qvGyryi ogbGVmdDsgdmVydGljYWw zRGkmZ881AANg gGbsGFBgbL7wIAVvmPTvi PcjHW9vDCOitoxoJnKEVq fTQr4fLNFPMhNPJ8JaQUz vdGQ+PHRkIHN0 aTpbZWtqBNImwX8qNRIqZ 7w2ZkFcSlH7ZZqhK5FoKE CbliarUz05qY1tYyAoWaQ 4UCzeC6EvrpL5 OQWouHOnGZkpJAU6T41ob 4F1RQXySDSjHOJ3zLO8eT 1hbGlnbjogbGVmdDsgdmV ydGljYWwtYWxp P917MNItjLacTtK3PlXzL bE4OSG5X9NpWtr4IWUyoM hlBW0ozDJoHEzsWs0wqEb dlGmfXT5nISFq artsCBCdqW1oLEHhqZFgs XksSD3mVGJkvgkml352Jb NfYRX8MCLsqOXcZ4CueX6 yOiAjMDAwMDAw M6ZmiVChCVblY806IHliT cX0FCWqliGiA8UrGKIgmL wwGxY1j7B9Tc3bWVUYZKT yczwvdGQ+PHRk NGT8rXryFAbwYXXvwQ9aW HMlQ1n4GhZjIfJ4ZEbtM6 IyJTImusiuDe94rZ3gBnP zFsU5OJpqW7Nr hxM6INYywGMyGNzuCGH1C 94ta2C4ASLqGWHyGYY0rB C8uH8ijHbdhvlrxJCtcWr gdmVydGljYWwt BGarY695PJUebBxsZrTea WFsZTwvdGQ+GILmPLA4aB hwGNiwXILrrO9lLZJtM5l 9ZjMoEaN5WZov P2QePCDysyqjKw83xN8tR vMfEvR1JVtoW5LpxuW5LL TiaNEtILsvOPC6C06kg3J 8FEBtMGHfUYM6 kFC9mL2raPnobxtroWXkj DsgdmVydGljYWwtYWxpZ2 23XEKnnOckLr3XASBnhKQ nZTwvdGQ+PC90 kp56W9FdOszeBgs2DXCmH JQ6zBA2kW3tBWOxFLwqm4 H9dFW7J2SjufHwvo2li4k yYQVlYAfhI10b sBDkc4Z3EBUpbBV7TCHjp AabCpUkqM46Mbq+PGNvbG ndr2EkPaaei4nkb5czoGx 9IjMwJSIgdmFs wNpoRBL5h2HaIb49S29rE HdpZHRoPSIzMCUiIHZhbG infw8pnW6rYu2+PGNvbCB 9hWI1jF8oGgTv OmS5PVyjQ787DpZgxEWqZ nepw4rij4tiuMr1UkHpGU CihuMsmQpjVBJ4u2ZdOp9 8X4WuuLakr5Hr Oez9hl45nSZaz3S3bZI6F 3BhZGRpbmctbGVmdDogMC 9aSJPeromrZZOqpV5lQAH eU6w2DvTtViM3 ALfjY3NxvmB3JALqxNIqR JUmpBNPwL4ibqued8kfyy rrXkRzZODpPIw7COx0JKI saWduOiBsZWZ0 PzU6FCM9sFDfrE2fgKfwx zqmiF4fZyq+EYi7o6dtbM BwOS6hbXP6TQ15BC41yOQ nu3T3bVZ5N8Gx NASsvnotttrcxQW6JXLlA XXrlL40Et1dxLbgEh9hBL LfGDN4MMPbcEEhJ4WfcH7 yOiAjMDAwMDAw G5NqbYFxOWvxE224PSpgF tH8ZUCdzeMaR4ItGRMisW vmTeR9l4V9Yj2ODX26KB6 4FD12zRWxm0H0 iHF1H9YyKBSpfvqyznjob GN9LAPrPZNvrM75Yy6iwJ owLw5tKPHrHYA4DJYfiPQ cG4PlpD6nXyOz XVGqBCRpF5JrqCMpTLyoQ 395ZIopWnQ1LGVbtrWpH4 UtUTCgzYdzTwH4j0R3Py1 DEf88LF30TH34 iLTxo4F5aSQ7Z3HsTDXzo puyruphcNR6WDMuNGDqxY 64Wv2dxWxlWw6tXNNjPCH 2ITTkpBUdG2Ml lT7kWcXmXECqTUIjX1Agx ONcSAxdY196UAadWpI7VE SuflBbI3KsQWVizSbdFeE 1c3E3Ed6TIIpi yqb6Q8NvKsiwrPV+PC90Y DDxNC61tPWuiKFxu7yafT o3UyVnKUSkRYJ1vEuwXSl dw4HnTLBuK55q bGFw (more content not included)... Normal [facility] Insurance Correspondenceon 0 07-12-2020 Insurance Correspondence [id number]# 1.00CD:127 Normal [facility] Insurance Correspondence Off iceon 07-12-2020 Insurance Correspondence Office [id number]# 1.00CD:127 Normal [facility] Nursing Assessmenton 021 Nursing Assessment [id number]# 1.00CD:127 Normal [facility] Group B Strep by PCRon 07-09 Group B Strep colonization by PCR Negative Normal Negative [facility] Comment on above: Order Comment: vagin al swab Performed By: #### 2 [id number] #### [facility] [address] [place] [address] ABO/Rhon 07-08-2020 ABO/Rh Positive Invalid Interpretation Code [facility] Comment on above: Performed By: #### 1 [id number] #### [facility] [address] [place] [address] ABO/Rh History Checkon 07-08 ABO/Rh History Check Verified Hx Blood Type Normal [facility] Comment on above: Performed By: #### 1 [id number] ####[facility] [address] [place] [address] ABSCon 07-08-2020 ABSC Gel Interp Negative Normal [facility] Comment on above: Performed By: #### 1 [id number] ####[facility] [address] [place] [address] BUNon 07-08-2020 Urea nitrogen [Mass/Vol] 7 mg/dL Normal 07-08 [facility] Comment on above: Performed By: #### 2 [id number], [id number], [id number] #### [facility] [address] [id number] Blood Bank ID#on 07-08-2020 BBID# [id number] Invalid Interpretation Code [facility] Comment on above: Performed By: #### 1 2659306, 55940034, 7305889, [id number] ####[facility] [address] [place] [address] CBC w/Indiceson 07-08-2020 Erythrocyte distribution width (RBC) [Ratio] 13.6 % Normal 10.9-14.2 [facility] Comment on above: Performed By: #### 2 516028, 2562728, [id number] #### [facility] [address] [place] [address] Hematocrit (Bld) [Volume fraction] 28.9 % Low 34.0-46.0 [facility] Comment on above: Performed By: #### 2 778701, 2323746, [id number] #### [facility] [address] [place] [address] Hemoglobin (Bld) [Mass/Vol] 9.7 g/dL Low 12.0-16.0 [facility] Comment on above: Performed By: #### 2 081601, 7637317, [id number] #### [facility] [address] [place] [address] MCH (RBC) [Entitic mass] 27.4 pg Normal 27.0-34.0 [facility] Comment on above: Performed By: #### 2 060515, 3761874, [id number] #### [facility] [address] [place] [address] MCHC (RBC) [Mass/Vol] 33.5 g/dL Normal 31.4-36.0 [facility] Comment on above: Performed By: #### 2 972222, 8498395, [id number] #### [facility] [address] [place] [address] MCV (RBC) [Entitic vol] 81.7 fL Normal 80.0-100.0 [facility] Comment on above: Performed By: #### 2 179673, 4209525, [id number] #### [facility] [address] [place] [address] Platelet mean volume (Bld) [Entitic vol] 7.9 fL Normal 6.4-10.8 [facility] Comment on above: Performed By: #### 2 976345, 6302727, [id number] #### [facility] [address] [place] [address] Platelets (Bld) [#/Vol] 320.0 E9/L Normal 150.0-500.0 [facility] Comment on above: Performed By: #### 2 247109, 1371751, [id number] #### [facility] [address] [place] [address] RBC (Bld) [#/Vol] 3.5 E12/L Low 4.3-5.9 [facility] Comment on above: Performed By: #### 2 269343, 3220856, [id number] #### [facility] [address] [place] [address] WBC corrected for nucl RBC Auto (Bld) [#/Vol] 9.9 E9/L Normal 4.0-11.0 [facility] Comment on above: Performed By: #### 2 057255, 9079732, [id number] #### [facility] [address] [place] [address] Creatinineon 07-08-2020 Creatinine [Mass/Vol] 0.4 mg/dL Low 0.5-1.3 [facility] Comment on above: Performed By: #### 2 887427, 4702600, [id number] #### [facility] [address] [place] [address] Discharge Instructionson Discharge Instructions [id number]# 1.00CD:127 Normal [facility] FSPon 07-08-2020 Fibrin+Fibrinogen fragments (S) [Mass/Vol] <10 Normal <10 [facility] Comment on above: Performed By: #### 2 076172, 6099016, [id number] #### [facility] [address] [place] [address] Stainon 07-08-2020 FMHV 0 mL Invalid Interpretation Code [facility] Comment on above: Performed By: #### 2 431624, 1929044, [id number] #### [facility] [address] [place] [address] Negative Control Negative Normal [facility] Comment on above: Performed By: #### 2 349757, 3419713, [id number] #### [facility] [address] [place] [address] Fibrinogenon 07-08-2020 Fibrinogen Coag (PPP) [Mass/Vol] 451 mg/dL High 200-393 [facility] Comment on above: Performed By: #### 2 869127, 1614687, [id number] #### [facility] [address] [place] [address] Hep Func Panelon 07-08-2020 Bilirubin.indirect [Mass or moles/Vol] UTC Abnormal 0.1-0.9 [facility] Comment on above: Result Comment: Resu lt verified by Discern Rule. Performed result [facility] (Unable to Calculate) was sent as an Alpha code due the inability to calculate a valid numeric value. Performed By: #### 2 309377, 0290486, [id number] #### [facility] [address] [place] [address] Albumin [Mass/Vol] 2.6 g/dL Low 3.3-5.0 [facility] Comment on above: Performed By: #### 2 479551, 5312333, [id number] #### [facility] [address] [place] [address] Albumin/Globulin (S) [Mass conc ratio] 0.8 Low 1.1-2.2 [facility] Comment on above: Performed By: #### 2 624506, 1604405, [id number] #### [facility] [address] [place] [address]85 ALP [Catalytic activity/Vol] 108 Int._Unit/L High 21-98 [facility] Comment on above: Performed By: #### 2 244538, 7419926, [id number] #### [facility] [address] [place] [address]95[address] ALT No additional P-5'-P [Catalytic activity/Vol] 13 Int._Unit/L Normal 6-46 [facility] Comment on above: Performed By: #### 2 586104, 5470097, [id number] #### [facility] [address] [place] [address] AST [Catalytic activity/Vol] 22 Int._Unit/L Normal 5-43 [facility] Comment on above: Performed By: #### 2 009933, 1513471, [id number] #### [facility] [address] [place] [address] Bilirubin [Mass/Vol] 0.4 mg/dL Normal 0.0-1.1 [facility] Comment on above: Performed By: #### 2 902582, 8353760, [id number] #### [facility] [address] [place] [address] Bilirubin.direct [Mass/Vol] mg/dL Normal 0.1-0.4 [facility] Comment on above: Performed By: #### 2 511403, 5074406, 960278635 #### [facility] [address] [place] [address] Globulin (S) [Mass/Vol] 3.4 g/dL Normal 1.4-4.0 [facility] Comment on above: Performed By: #### 2 068742, 6862530, [id number] #### [facility] [address] [place] [address] Protein [Mass/Vol] 6.0 g/dL Normal 6.0-7.8 [facility] Comment on above: Performed By: #### 2 369936, 2522552, [id number] #### [facility] [address] [place] [address] Inpatient Clinical Summaryon 07-08-2020 Inpatient Clinical Summary [address] [address] Clinical Summary Person Information Name: MYA MYLES Ifeoma/[facility] Age: 30 Years : 1990 Sex: Female PCP: Chao Blackwell III, DO Marital Status: Single Race: White Ethnicity: Non- or Language: [place] Citizen Visit Id: Visit Reason: Speciality: Acuity: Obs Enc Type: OB Triage Med Service: Obstetrics Arrival: 07/07/2020 19:39:51 Discharge: 07/08/2020 21:22:00 Dispo Type: Home (Routine DC) Address: [address] [place] [address] [place] [id number] Provider Notes: Diagnosis: Problems Active Obesity complicating [...] Follow up: With: Address: When: Funmilayo ESCOBEDO [address] [place], [place] [id number] [facility] () In 3 days 07/11/2020 Comments: Call Dr. Kramer office Saturday to see if she wants to see you sooner. If not keep appointment. Call for any problems. Call for severe abdominal pain Call physician for heavy vaginal bleeding (more content not included)... Normal [facility] Inpatient Patient Summaryon 07-08-2020 Inpatient Patient Summary [address] [id number] Patient Discharge Instructions PERSON INFORMATION Name: MYA [...] Follow up: With: Address: When: Funmilayo ESCOBEDO [address] [place] [address] [facility] () In 3 days 07/11/2020 Comments: Call Dr. [...] Type Location Start Finish State [facility] SOV [place] 07/14/2020 4:30 PM 07/14/2020 4:45 PM Confirmed [facility] Ultrasound [place] 07/21/2020 4:00 PM 07/21/2020 4:45 PM Confirmed [facility] SOV [place] 07/21/2020 4:30 PM 07/21/2020 4:45 PM Confirmed [facility] SOV [place] 07/27/2020 2:45 PM 07/27/2020 3:00 PM Confirmed [facility] SOV [place] 08/02/2020 4:30 PM 08/02/2020 4:45 PM Confirmed WH BIENVENIDO [place] 09/15/2020 9:00 AM 09/15/2020 9:30 AM Confirmed [...] (38.9? C) or higher. Document Released: 05/03/2009 ExitCare? Patient Information ?2009 [place] P[place]. Labor and Information normally lasts 39?41 weeks. [...] or tightening. (more content not included)... Normal [facility] Lyteson 07-08-2020 Anion gap [Moles/Vol] 9 mmol/L Normal 6-16 [facility] Comment on above: Performed By: #### 2 167136, 9188579, [id number] #### [facility] [address] [place] [address] Chloride [Moles/Vol] 108 mmol/L Normal 101-111 [facility] Comment on above: Performed By: #### 2 706527, 2935232, [id number] #### [facility] [address] [place] [address] CO2 [Moles/Vol] 21 mmol/L Normal 21-31 [facility] Comment on above: Performed By: #### 2 763220, 7311869, [id number] #### [facility] [address] [place] [address] Potassium [Moles/Vol] 3.4 mmol/L Low 3.5-5.3 [facility] Comment on above: Performed By: #### 2 058852, 2846241, [id number] #### [facility] [address] [place] [address] Sodium [Moles/Vol] 135 mmol/L Normal 135-145 [facility] Comment on above: Performed By: #### 2 613906, 0189786, [id number] #### [facility] [address] [place] [address] PT & PTTon 07-08-2020 aPTT Coag (PPP) [Time] 25.4 second(s) Normal 25.1-36.5 [facility] Comment on above: Result Comment: Hepa rin therapeutic range (represented by Anti-Factor Xa activity of 0.2 - 0.4 U/mL) corresponds to PTT of 56.6 - 109.0 sec. Performed By: #### 2 284148, 2233899, [id number] #### [facility] [address] [place] [address] INR Coag (PPP) [Relative time] 1.0 {INR} Invalid Interpretation Code [facility] Comment on above: Result Comment: INR results are specifically intended to assess patients stabilized on long-term Anticoagulation therapy suggested INR?s ?Less Intensive Anticoagulation? 2.0 ? 3.0 Conventional Range 3.0 ? 4.5 Performed By: #### 2 209552, 0262453, [id number] #### [facility] [address] [place] [address] PT Coag (PPP) [Time] 12.2 second(s) Normal 10.2-12.9 [facility] Comment on above: Performed By: #### 2 141970, 0933013, [id number] #### [facility] [address] [place] [address] Uric Acidon 07-08-2020 Urate [Mass/Vol] 2.7 mg/dL Normal 2.2-7.4 [facility] Comment on above: Performed By: #### 2 411312, 1747429, 800510328 #### [facility] [address] [place] [address] eGFRon 07-08-2020 GFR/1.73 sq M.predicted among blacks MDRD (S/P/Bld) [Vol rate/Area] mL/min/{1.73_m2} Normal >=59 [facility] Comment on above: Order Comment: Order Added by Discern Expert. Result Comment: eGFR is race adjusted. AA=. Performed By: #### 2 780357, 8317161, [id number] #### [facility] [address] [place] [address] GFR/1.73 sq M.predicted among non-blacks MDRD (S/P/Bld) [Vol rate/Area] mL/min/{1.73_m2} Normal >=59 [facility] Comment on above: Order Comment: Order Added by Discern Expert. Result Comment: Express Manager ramesh kidney disease could be indicated at eGFR's of less than 60 mL/min/1.73m2. Kidney failure is indicated at less than 15 mL/min/1.73m2. Performed By: #### 2 526761, 1600257, 522591300 #### [facility] [address] [place] [address] AmniSureon 07-07-2020 PAMG-1 Protein Negative Normal Negative [facility] Comment on above: Performed By: #### 2 099003, 1406467, 521003917 #### [facility] [address] [place] [address] PAMG-1 Protein Internal Control Positive Normal Positive [facility] Comment on above: Performed By: #### 2 177173, 3222017, [id number] #### [facility] [address] [place] [address] Consent for Treatmenton 06-19 Consent for Treatment [id number]# 1.00CD:127 Normal [facility] Consent for Treatment [id number] [id number]# 1.00CD:127 Normal [facility] FFNon 07-07-2020 Fibronectin. Ql (Vag fld) Negative Normal [facility] Comment on above: Result Comment: In [...] the antibody-antigen reaction. Performed By: #### 2 223771, 4564097, [id number] #### [facility] [address] [place] [address] UA With Cult Reflexon 2020 Bacteria LM Ql (Urine sed) 1+ /HPF Abnormal Trace [facility] Comment on above: Performed By: #### 2 616587, 6022429, 085139319 #### [facility] [address] [place] [address] Bilirubin Ql (U) Negative Normal Negative [facility] Comment on above: Performed By: #### 2 965437, 8126496, 286904787 #### [facility] [address] [place] [address] Clarity (U) CLEAR Normal Clear [facility] Comment on above: Performed By: #### 2 743518, 0817410, 362300073 #### [facility] [address] [place] [address] Color (U) YELLOW Normal Yellow [facility] Comment on above: Performed By: #### 2 894256, 7931952, 486838539 #### [facility] [address] [place] [address] Epithelial cells.squamous LM.HPF (Urine sed) [#/Area] /[HPF] Normal 0-2 [facility] Comment on above: Performed By: #### 2 308925, 8238749, 361865180 #### [facility] [address] [place] [address] Glucose Test strip (U) [Mass/Vol] Negative Normal Negative [facility] Comment on above: Performed By: #### 2 152384, 4229102, 774224201 #### [facility] [address] [place] [address] Hemoglobin Ql (U) 2+ Abnormal Negative [facility] Comment on above: Performed By: #### 2 597218, 0343611, 368379945 #### [facility] [address] [place] [address] Ketones (U) [Mass/Vol] TRACE Abnormal Negative Fi [facility] Comment on above: Performed By: #### 2 120529, 2360079, 106372198 #### [facility] [address] [place] [address] [place].plasma/[place].R BC (Bld) [Mass ratio] >30 Abnormal 0-3 [facility] Comment on above: Performed By: #### 2 113598, 9394668, 184906423 #### [facility] [address] [place] [address] Mucus Ql (Urine sed) TRACE Normal [facility] Comment on above: Performed By: #### 2 474791, 4302313, 225010288 #### [facility] [address] [place] [address] Nitrite Ql (U) Negative Normal Negative [facility] Comment on above: Performed By: #### 2 217978, 2196233, 641998502 #### [facility] [address] [place] [address] pH (U) 5.5 [pH] Invalid Interpretation Code 5.0-9.0 [facility] Comment on above: Performed By: #### 2 371874, 3392022, [id number] #### [facility] [address] [place] [address] Protein (U) [Mass/Vol] Negative Normal Negative [facility] Comment on above: Performed By: #### 2 189634, 8830751, 235146776 #### [facility] [address] [place] [address] Specific gravity (U) [Rel density] 1.025 Invalid Interpretation Code 1.005-1.030 [facility] Comment on above: Performed By: #### 2 135743, 8840576, 221108247 #### [facility] [address] [place] [address] Type of Urine collection method Clean Catch Normal [facility] Comment on above: Performed By: #### 2 726651, 1012019, 881151411 #### [facility] [address] [place] [address] Urobilinogen Qn (U) 0.2 {Henny'U}/dL Normal 0.0-1.0 [facility] Comment on above: Performed By: #### 2 180274, 2196738, 551489141 #### [facility] [address] [place] [address] WBC Auto Ql (U) Negative Normal Negative [facility] Comment on above: Performed By: #### 2 766198, 5405313, 528917283 #### [facility] [address] [place] [address] WBC LM.HPF (Urine sed) [#/Area] 0-5 Normal 0-5 [facility] Comment on above: Performed By: #### 2 687461, 1272825, 137756533 #### [facility] [address] [place] [address] Ambulatory Clinical Summaryo n 07-06-2020 Ambulatory Clinical Summary {[id number]}CD:[id number] Normal [facility] Obstetrics Office/Clinic Not jasmine 07-06-2020 Obstetrics Office/Clinic Note Chief Complaint OB visit 34 weeks 6 days. Obstetric History History (1,0,0,2) # 1 Baby 1 Outcome Date: 2008 Outcome: Live Outcome or Result: Vaginal Gender: Female Gest Age: 41 weeks Wt: 3232 g [facility]: [facility] Labor: -- Child's Name: -- Baby's [...] Stable. Ordered: Office Visit Level 3 Est 32269 TH 2. Obesity complicating , third trimester (O99.213: Obesity complicating , third trimester) Doing well managing weight gain. Ordered: Office Visit Level 3 Est 35900 TH 3. Supervision of high risk in third trimester (O09.93: Supervision of high risk , unspecified, third trimester) Follow up in 2 weeks for appt and growth US. PTL precautions until 37 wks. Ordered: Office Visit Level 3 Est 91941 TH 4. 34 weeks gestation of (Z3A.34: 34 weeks gestation of ) Ordered: Office Visit Level 3 Est 95729 TH Follow-up With When Contact Information [facility] In [address] [place] [address]- Additional Instructions: Problem List/Past Medical History Ongoing [...] Protein Urine Dipstick: Negative (07/06/20 14:59:00) Normal [facility] Comment on above: Result Comment: Elec tronically Signed By: Caroline HILARIO\.rosey\Date and Time Signed: 07/06/20 15:42 EDT Patient Educationon 07-07-19 Patient Education How a Baby Grows During [...] Document Reviewed: 07/23/2008 ExitCare? Patient Information ?2013 [place] P[place]. Jer[facility] US Follow Upon Follow Up Exam Date/Time: 06/23/2020 [...] Signed by: Yousif Toribio M.D. Transcribed by: Phong Technologist: ADEN Technical Comments CLIFFORD 08/11/20 CLIFFORD Obtained CLIFFORD by US GA 33w 0d History 3 Para 2 Transabdominal Ultrasound Performed Placenta Location posterior Placenta Grade 1 2 Positioning Vertex Amniotic Fluid Volume Normal Normal [facility] Consenton 06-24-2020 Consent [id number]#1 .00CD:127 Normal [facility] Ambulatory Clinical Summaryo n 06-23-2020 Ambulatory Clinical Summary {[id number] -09-56}CD:675110 Normal [facility] Ambulatory Clinical Summary {[id number] -[id number]}CD:436708 Normal [facility] Obstetrics Office/Clinic Not jasmine 06-23-2020 Obstetrics Office/Clinic Note Chief Complaint OB 33w, baby moving, swelling in feet. Having heartburn for about two weeks. Obstetric History History (1,0,0,2) # 1 Baby 1 Outcome Date: 2008 Outcome: Live Outcome or Result: Vaginal Gender: Female Gest Age: 41 weeks Wt: 3232 g [facility] [facility] Labor: -- Child's Name: -- Baby's Father: -- # 2 Baby 1 Outcome Date: 05/26/2013 Outcome: Live Outcome or Result: Vaginal Gender: Male Gest Age: 39 weeks 3 days Wt: 3390 g Hospital: [facility] Labor: 5 hr 55 min Child's [...] trimester) Ordered: Office Visit Level 4 Est 59694 NC 2. Obesity complicating , third trimester (O99.213: Obesity complicating , third trimester) Ordered: Office Visit Level 4 Est 77448 NC 3. Depression during (O99.340: Other mental disorders complicating , unspecified trimester) Ordered: Office Visit Level 4 Est 40590 NC 4. 33 weeks gestation of (Z3A.33: 33 weeks gestation of ) Ordered: Office Visit Level 4 Est 46395 AL Encounter for immunization (Z23: Encounter for immunization) Ordered: tetanus/diphtheria/pe rtussis, acel (Tdap), 0.5 mL, IntraMuscular, Once, Stop date 06/23/20 16:00:00 EDT, Routine, Start date 06/23/20 16:00:00 EDT EACH ADD'L Lathing Supervisor Admin Component 92373 EACH ADD'L Lathing Supervisor Admin Component 59168 FIRST VACCINE Lathing Supervisor Admin Charge 94[address] Orders: famotidine, 20 mg = 1 tab(s), Oral, BID, # 60 tab(s), Refills(s) 2, Pharmacy: [id number], 157, cm, 06/23/20 15:10:00 EDT, Height/Length Dosing, 86.7, kg, 06/23/20 15:10:00 EDT, Weight Dosing Follow-up With When Contact Information Funmilayo ESCOBEDO MD In [address] [place] [address]- Additional Instructions: Problem List/Past Medical [...] Protein Urine Dipstick: Negative (06/23/20 15:09:00) Normal [facility] Comment on above: Result Comment: Elec tronically Signed By: Funmilayo ESCOBEDO MD\.br\Date and Time Signed: 06/23/20 15:40 EDT Patient Educationon 06-24-19 21 Patient Education Obstetrics and Gynecology Abdominal Pain [...] keep your urine pale yellow. ? Take rqgq-dsv-fgaalwx and prescription medicines only as told by [...] 02/04/2006 Document Revised: 05/25/2019 Document Reviewed: 05/09/2017 Elsevier Patient Education ? 2019 [employer] First Stage of Labor Labor is [...] when you walk around or lie down ([place] Mahmood contractions). This is also called false [...] monitor strap (more content not included)... Normal [facility] Coding Summary.on 06-12-2020 Coding Summary. CD:[id number]:[id number] G h0bWw+PGhlYWQ+LT1TNWX yO90xvKXcnW3VP7lMAT8B QKITQFWZFU7UIP9vrWI1W FohQ8LedbCc CqgabDQhOV66DZm3MIQ2e BuiYHfmiA6poSDaS2b3Ni IgPR83wI51HBydVMQxJsL 3LjZpbjsgbWFy X0anIuLdtWGsWeq+PHRhY mxlIHdpZHRoPScxMDAlJy YwrXbcJL9nEj7iWQSvIQX vbGxhcHNlOiBj t4vqAXJsPCtoQV5jaJfpF 6CcjXE5NVCbv4x6Wk79mL I+EHXeORT1pWqmJXerp13 4MwEnr0vqWPP0 yKHoXHbrCCX3T90wb4C4G HFhUUFsHQL8vBE4jM2kgM omeujrS5GuuIVmQkZ0RXJ 8eUNzzN3nvCia qrrtxV0uUql+D86QDV4JO QWULI1WMyq9I1NvYbdhgI I+HF60YMIoPF16uLSdvKZ zs7lcmLq1NeWi YSZxVFF5bUkpSLvvf1DkQ VQwX94chTXcd2R8DMDfoD lfkCTlFwUtoCZ7oL8nOBs blyyhv6huyjiq Vdglz9uaul44uV08J30xT DrvTJPwVPW0DEIvZDUgeQ prkz6llM4oRd5+UMhwz5t qh4hliFo8EeXo PYDfbzQrwQlkOJN0w0RaF z56U3VnmAlat3NhAjv5nt 11gKWgv3O9fZV4QJyqDGQ cqG4rGQhsErK0 CCXcVjZllI93lZUgXVqcS j5gqQxcxWyeLR7lEDMusu qvOPEsdP5hVKEqmGZfzBu hFD0iLZAdxljm d649RgGhFKE5OKKosLOuV 9TvwO1vTpYhWKAxTRUpI5 IrqJDvNZkjH997ELydTpG 1HOPowaWaO1Qm YORogZmsRsB4d5I2Lr7Ra 9OrxsccMSY4WLteRTD2Cx R5YfLmOyH8W7UfJmb3EHR ctApxXN7iE7Or BSEhiupwbspwpOQ4HCCtI BZieN22vOGsTVwnXk5pd0 C0k285QJLvYNIpjY17Ql9 udDogMTBwdCBU pN0fwcynz2srlenaKxTeC CApJHc1YOb1ZHMwiRcyPg PnLEZ1CmN7SDB1qJVjeX5 dxDmapvpizH2q Oyc+T74mqN0eSAX8AZK1x uczDTQwzgHgNU97TP86A5 RyPjwvdGFibGU+PGRpdiB tuMyvZM4cSvXw n5qju5UfONxjJ2OoGRZpZ DgiOqe6DUOpNTF3aKX7pH 0nPFOwFDxju7K8eXH5S5M hfuUmgt0jy6jb MKRbNNrwN29zmANdl8X9A SCnpDX9NQQgaTwjGpAzkD 93Oyc+KPEmsKqbm4YtJdm wp2srj7oykTy0 ItPgPLJwbhEtoNnhCPI1n 8JzVf96V96kAIroYYVqUW BzNHQsAZPaoHfcwu4evP9 wIi8+PGNvbCB3 hAF4aA8aDTWdSxU6ZCyuX 086YzWryYPeFkmsw5ffu7 nxkCh7OoDxZUHakqUoxBg zFHR8j3FjIs99 G45mOXtnKIDtMKUcRYMnU UFnnEthlc1fkE3xKo1+PC 0mw8gues19iJ70pVL+PHR dEKO2aBqlEHzx RTQhgL2xMPsaOfU6QNYuH gOuzT48dXOyZXqnZo5iwE iidVigQC6mMQQeyjdvs62 4CvRnf6ikNODr uTRuEXogOTF5F65es0R0Z MYtHMOiUOD9fUN3qB0qoY lnbjogbGVmdDsgdmVydGl rYGgoZJibA703 IHRvcDsnPlBhdGllbnQgT tVtUDt1K3EtFcx9OBXdkP woEX3gsOFfOKvtGd4qeHf zjLuuRS3rYSJb aalrc656QrJbo5xwNALcm MTjYXybAKQ9W78ir3P9SJ QuDFGtNIC8tEA8qI1trAf nbjogbGVmdDsg vhKgpFfgNNyfZGojO626B HRvcDsnPkJpcnRoIERhdG K6MZ59RT26xKIjc2O2vHS 2L2NcLPBrvikw afbgnBV3OTNvMGVdiJ74Z p1niHfrSt0uOLNvBLJ9XI MciVAoM4VdtM2gAaIjGTR mDCSqO3JsnAOd GQyzN970REwyMqB6GUDrr jCjR8QqRFUtoPvfPfQ0a0 B2Yq8IH0L1VH88FV83tBZ hu9L8mOM7O8Ut GEDilkdjdbmfwYJ8HTGjP WIqtR17Nv2akXxwCt8iLL AzZFV8WKAvdPPnU0PfxO0 yOiAjMDAwMDAw W5LsxXZgZWmrN842MPyeB bU9YMLudtShE4SpADUlrL phZtL8c5I2Ii5GEKp8AA8 2MK30hKFbg9A7 kOT4Y1WcPLWetpojauwbr JO1AOXtTMZvdY56An3woN unCz9oZYWgSBC0PQHfmEG vL7YnuQ1zNhOi GUQcHXHnA7QopPNlYEblC 900XClxCsW3SWXgvtSoX6 IeDQMeuNguKrF8a1F6Uj0 XDFDbAG89QLI7 tZS8TK38OV24R1DcHmzmq GFibGU+PHRhYmxlIHdpZH RoPScxMDAlJyBzdHlsZT0 iEb5mMDHrYWNh fJkdrFHnAiNkb7gxQCOrF XsxZI4nfRopE7BvcRA9OU Mmt9i8Dm67E02zR5KfjEL +NUSrtJR9uRC2 dJ0zAeQlDjF3ONnpQ204O xMowLUfXewbi6ztz0eclO t5UeI2VHCfycCghCxuGSH 6r0AgGx12D56x IHdpZHRoPSIxNSUiIHZhb Zgedd1doY8uKg0+PGNvbC Z2uIA3fZ5dGuFxHuK6UAi eJ505FdMrjKUf Ibsbc2hlz7haxRm4WfQzT IQvfbIkpKsxMEQ6l1BqTq 51W5YmwDmdj8PhNgr8jn0 2vBAqs7I9sOS4 X4QtROOpbbfxxLMyiJonE X6kUKEyxdcdQWNcbG0hNS TaO3x1MaQxJiC3BGjaX5I fmiI7BKGzyFMf TDgtZBF5W30xc8H5ZJUdY EWdKCL3yXC3rY3pfIogdf ogbGVmdDsgdmVydGljYWw tLUhaD159DAVw xKacVIEobP2aURPvwTIfk AjkMT3sWKJxtbabMlSEWl wUGa3tNKAIQdPKD5ByLDy vdGQ+PHRkIHN0 cLaiDFkeMIRxqT4gFEFfQ 4y5EmYiCuS9UUirL7PhEE EftcwgNa18xL8hQoExWnP 4KBtmK0JildF3 UZCbdWGiOXkrTER6F48xe 6T1JNQzYMIjKCT9bDL3oZ 1hbGlnbjogbGVmdDsgdmV ydGljYWwtYWxp M591OWYcfFtsZvZ7MvAdS fU0PPD0S3YtKut9QEUlnV ttEV1zwGMtLGyeAi1dzEo jjVafZJ6bLOEs peabHBWuzH5dBZRnqYKra IiqKA7rOVJzebbqy148Gn NpIFB6SQDrlHZbV0MkfP4 yOiAjMDAwMDAw E3BqmRTpLHjoX140EPmvT aQ9STHotzTyE9IoOMOopD qqOzN0c0Q7Pk1lGIWNLKA yczwvdGQ+PHRk YQB7oRrwHLbdOWBboU9bI ERpW6w5QdLiJqY8ETnwK9 UvKJQjwhtaCk87mR8kOrA kLnB0UAogG5Zr ucW6DSEgyLPhBIaaAZF5A 99ru4G0ONReHBJvOQC4nN D2bO1foHaasieeiKBjkSi gdmVydGljYWwt NHzdG339MELkpXouLkBoc WFsZTwvdGQ+OEAnMKA8nN iiATczXWYtlO2hRMZxC1l 0TrWdKkP6IIzc N2ErSDTxzbdwCc18fR1fA dXdWeI0ADvzM3TykbD9HC GczIXtJLgjVUB8S84dj4G 1DVSkWLBgPNF2 bRW3xT3tiNdcrdosfLDxo DsgdmVydGljYWwtYWxpZ2 69XJCstMumUa84mBBovPa lwrQ3X3KvCgjy dHI+FH87NQIaCB24mHKpm PPcq9mplIr2IvDxSKWbYQ O0eMdgKOurh6CjZLEsN20 fvEJrh3V9MQFo hUooyBZcNaVsdFT2yN4eC Yyncfbqs6zgfjbrGbvhr4 rkms87dO59A85eFOryKXJ oPSIzMCUiIHZh lLvdox0evP6jIs2+PGNvb OM0tIN5jE6bFrWhFoQ0CK ohO808AmEejNYgRlwmy9x za2gydWe3ScKp MSEtazCavDkvJFS9t9MvN e42M01nAPuzXKRsEPKgCY DiHMNsqKznrv7swF5sZm3 +RE0wn4xxoz42 kC95bGV+OEMrKBU2cUhdE TvgFPEvhM7lVKalHfD2EN JkIlUjuR24iLTvPHrzMe2 fiUwwoHzqFJ1v XSOocpqqb619GeHbu5dwC DXmtICjIKvsHQP7X58gl9 G1FBBcWQPrYYM2nYK1lN4 hbGlnbjogbGVm dDsgdmVydGljYWwtYWxpZ 957HRLhsRvbEpHryPTnB0 bvvfLAMD8uPikqxIW+PHR cJGZ8fCvqJAeq BFPjfL9iFZDrZ6a8FhVuL kU5IQluX1RlqeV7LIYclR KnGBUigBWAyT1oxojly2p vcjogIzAwMDAw REl1QVx6ARCroRtxYpGhW IQ7FyJ9PCX6iCUadC2ppF pyqzchzZ5vFfy+RklOOjw vdGQ+PHRkIHN0 xAkkVKxvZKYmxH2oPNUqK 8z3MpBzNbJ2XGyjO3Vcfa T8XCZkuBOnSMXutMEHlD4 kczuor1ejmqlr XpYnPUXyKEo8KSn3AOGsr WfdWvWlKSS9RiP2ZWC6cR YjvQ3cpNujhtamxH5xFzk +TVJOOjwvdGQ+ YTJkFZM9nLwnTKkaQDCgu P3fTUCtP1c4UlHpIfQ4CK jgY8MusvI8QGFqcMHaRMK mmDSXyF1rzkrg r3mnyrwvRfTlDOAxLNx1E Gt7GXLbbRmkVrSoUYN3Bx X3SVK6mUIrhD6akQqbhyk bfI3pJqp+UGF5 QDP7BQ03LO92A2EkEcmku GFibGU+PHRhYmxlIHdpZH RoPScxMDAlJyBzdHlsZT0 pPo4kHCVmJTFl bGxh (more content not included)... [facility] Coding Summary.on 06-09-2020 Coding Summary. CD:[id number]:[id number] G h0bWw+PGhlYWQ+GA3XZRQ tQ85xdYNqiJ6JM6nNWI6O IIYTSYHDCG7XMM6mwRL1P QaiI0GjheYa QomeqKSmYM22QMv8NZM1d NhhTMfnmU3qlIHdW7b6In SwNX19oR03TKneFTGfKmW 3LjZpbjsgbWFy W4xoOrFrtXMyOuu+PHRhY mxlIHdpZHRoPScxMDAlJy YrnFfhUC7tIa0qTBUvWNG vbGxhcHNlOiBj h7awTETgIPijER8ipEzzZ 1OlnTX9DAOrg4a4Vu44yA I+CCJoODN2dBqkAZzwm33 6NyYsq7wsYSK0 xZBbZFtfJIZ0D23su6D8U IBkAWQuAFS9bZY3xV8crI sknuszB0QreUPyOgT1RCX 6iIWihV4rbWjw jemdlC0sUkc+K60FFH9SR VLROD3ZCli8T1QpPeaxjH I+SE62FWMuCR24iKTayVF sn9txpBt0WeKu TGEqYRQ4sTknNFvol0WqN QMtL07apQGmy1T7PMWdqZ ixeHInZzAlmRY3sY0yWWq ztrejl0wvjekl Gxcyz2qikt46lU34X86kO MflFWGdTFD8FIPyGUJcrF idzz1veG4pNz8+GYkao0l hn2jugWw7GgYv DQEjsoTuwEeeCIW3t4OgK n30K8CnhEirj3HhWyx5uz 68yAIbk4S8rCH7GOboVPM euN3nXGruXlY3 JGFvJtMreP17gIGaMHjmY x8diEdnoEvmAJ0oYRGvlg ahRXFhkA2vEQWsbRMnfRv rBY0vRDNcfuut y500ZfWiIOT4VIWibXZpV 5AluT6mZkZbTFOcYJDcC1 MkxAFfBNziU444FSwbGpR 3MFVksnNtC1Yf WZYhuMiyHnM8n7V7Rs8Lz 6MzdmibVKV8SKkuAKL6Fw TnQcIzDsX9H9StFah3RRL iiCgkSF2rW2Is SKLoxuqyrsetuXB6BXStE LDevK26xIUnJTcbBk2lv9 W7k500TEZpQFWkaQ47Ym0 udDogMTBwdCBU pQ8rxqiky6xhpntgCnPiB NXaUPh0XFi9TXGevIsgEj KqKLF9LfV1PXU6sWTjyU0 jwUvfkaaffC3i Oyc+B38auG6jYZK2ISI8w voeVIFynkWwBW77MV74N1 RyPjwvdGFibGU+PGRpdiB jtCzvKJ9zPzDq j3phh6TlXYoaO6GgSGYdX GbxTpt2ICWpGLF9mKR2bB 3kMCKxULran2H2hCS0D6W iysEtjp2ac0lw YPTnMJnoC95exTWlj9N1W OUisRS4TSKxiIhlPiNqrZ 93Oyc+PQWujZqjp5YySzd bs1vjf0iuhQh5 AsYjVNWlqnMhdGaaTWS8h 7YpDb89C63aWXywVCJiVS PvLBAdBLYniNktwe3zlE3 wIi8+PGNvbCB3 jOJ8pM5aSQWiZuO4SNztI 848NbEggOWvHywfc5knj7 ijsFk9TjFpTAHkisQzoKj zEFI9j6RoFp67 W82pQFvfKUDyKFKbVDPoE TBluQlppx4daF0rCc4+PC 4sf2obsp72qG65vWO+PHR kMTK1bYcnHWhe IUWkaB1lJSpdVgP3OAZpQ mDzxB94xBSwKAcuSw0fcW whnGczKL5vZQLprkaea75 4ZzGzi9bnAUIo hBNzWDtcNHM6Y71ot3U3T YOeIVVaSZR9lMN4nC5oeW lnbjogbGVmdDsgdmVydGl cENcgIAkhU399 IHRvcDsnPlBhdGllbnQgT gDdDKw1V6ZrJhj0SREufX oaEK2lmWUjHNopDv8afNj tuLwkJW1tWEUl xptwy727UtGku0loGWRjf PAoKMqbUYZ8X13xs3F0DU PzXPYrGGV4eUA9cI2uyJe nbjogbGVmdDsg oiJumMswNFzjXXmbN664M HRvcDsnPkJpcnRoIERhdG Q4LI72LA33tQBgq7Q5gOL 6I5GnTOSxapny jhynkKH9MKZsHAQeiV40A f7gsUccRt1fWGFdUTZ1AM IrcWYhX8JqeT2xAzVdOMG vIBKqJ6NyaHTn JVcaY704UQmtPzP7FNXkm bHeA0XvHLOziNfpEkW1k9 F7Hz6YG8Q3TP82NU37rPI io8R2qFH0W6Ja OMJivrignrfitXR2OFQtR HGhdS81Ix2xrDoeSq8nKR MiCTP9FFTfdKBlO4PjqL8 yOiAjMDAwMDAw M9FwtWFjIQmrF294SWckA eP1NHAxfePtZ9IkWPLvmB sjRuX5x0Z1Lh4NDFx2MX7 9OP31mKYpx2G1 yQQ0J9LgQTLvrwfgpfylz VN3PZOaHRWgcF57Gr8cxB hkCs8bOCUgLWV1LERilHI fW3LoeE3lNrXq NYMzRBMoV2LmqNAlZAfjN 490EPsdMpQ3XTJinxXkI6 LbHPUxeTkzGrN8o1A0Vu9 MXHQkRG80LQW2 xYW3SW04HL44A1MqBzuvg GFibGU+PHRhYmxlIHdpZH RoPScxMDAlJyBzdHlsZT0 rPk6cVTQyJOWx eLefnAMvCwWxc8clYDBbN ZysHQ5dmExdZ5RxtYD1LD Cli3i9Ex41S18nE5BfcNZ +DZCddIL0aBB8 jC0aQlEdEgY3NZthV052S dPhnCUbJxyre8ivw5poaF a8ObS4KSUfhgMykLliWXV 9u7NlRm45V00r IHdpZHRoPSIxNSUiIHZhb Llimp5svV0cUn8+PGNvbC P9qPF9zM9tCzGmTlX7ZXw dG900HaUsbUUt Npzak0nss8vskVm9ImIiE HAztzTdhXliCPM5n5ThRe 66X9PonVzjp9OiHfj5dy8 3pCEht3V4tHY4 L6KbJYRjimxbwWHiuRvxY V1xCTLimjtnAPYhjZ0oVB YaS0n9AiNhFhU1CXzzP3B qctP2LIJhoQKn QHbqPQR2P90pu7L2FQKoO YHiMPO7xIX4fR1hiApdjq ogbGVmdDsgdmVydGljYWw sUTonX178BCEb lRbvEOXsfX1oXQBtkWEsz LwyTU3xYKDxnfxzBbYPXu uBNp5jGYLEQaIER0MpWOk vdGQ+PHRkIHN0 xOahJGqxBRLbuK1kLFMeT 8x4XtKeEcL6YEesE2VzWH DltspdBe44lB9yPqDwWnP 5EXhgQ7UrdgT3 HAEqtJNkVEfaOLX8Q77un 5M4YTIxGWGlEFU3dHM9zA 1hbGlnbjogbGVmdDsgdmV ydGljYWwtYWxp Y217BSRpnVhcZuC9JgBrD zR3OSL8G6RyTze8ORUbmD uuHB4arQGgLEwxDf9upWx ovVbiWW1xYHUv nglkUJVoyO6aSQFlfNOke FlaHY7cOCHngrzgb566Ap HyRSR4DQUqeLTuK3FbhK5 yOiAjMDAwMDAw S5VekFMmSPypF683VYwuB qY8LYKcbuHrX1KsBHKwzH sjZlR0y1L7Jv4tSKZGYIO yczwvdGQ+PHRk RSJ9iAlqJOxpHESguO3uM WYnP4b5WyEaSqS9UUenV3 RjBNBukavuNx26oU2dPeV hEqE2DFszA4Db eaS8TROajSEiSCjxMKJ3U 08sf2H9LTFdLXJbTWQ8fB Q1nY7cpAavrwogzWAihWq gdmVydGljYWwt JYlfJ334IJTruBtvNhIht WFsZTwvdGQ+DQNhDON7mE xkSFpdFJZroQ4oJHAgA0c 4WtGlMsQ5YQzj B7AuIFVetstyDp36gW8sC wApHzM0IStrE4AwmdX3OZ HifXKuYNpvEQE7I25xk5M 5RWLgVOXuWPG8 rHN0gM8plXhxkrifoLItb DsgdmVydGljYWwtYWxpZ2 42HHPlzMefFl72dEQwnPv yzsF9J1IhSqwv dHI+SF86PMCkJF52dCFdz YDfx2ldtTy4YcGtIWTpPB R3xRorPIyto3SkQNGbK22 aoSFej0V3QWLd bBfxoDJfAtNlbBT2zT9oU Zsyahcpw9khokraMqjbj3 xfam74vC53F29tITeoQJD oPSIzMCUiIHZh rWkyev1tnB9zYu4+PGNvb ZI5pZA1hQ3oAyAqEdZ2US gbZ792XfJabINdBgytl0m bz1klhQd0IlDf QBPdmtIphDnwEWN3t7FnT m05Q54lYKelGFUkKDEcFD YdTLGapQjeoc9vdE5fHn6 +JY3ee8mcdb84 jK82xGZ+YXDsHEW0nZrtV GrtVHVexA8vKLunLzD7HX YrAvPslB05fKRqYTyqNw8 ymDoitXygZK7m JWOwxgkpj036PqRoy8ioD VIupXKiOHufGHY1V04si6 P1PQPfEYSvDXX3fQR6dP1 hbGlnbjogbGVm dDsgdmVydGljYWwtYWxpZ 371YVYirXmzRtLmaWQoJ3 bsceICLQ9oInyhjUE+PHR kDMC4vGqtXAvt CZKlmZ1hRFKaG3i9NoLbR wI6QMrsL3MoeeF5TSNcyE UvLWKewDLXzW2gxilqt3q vcjogIzAwMDAw TRy1CJc7YTDetUggMaRxC VQ9InK2UCF3kNYnxU6cnS yqjdnzjG7hKtk+RklOOjw vdGQ+PHRkIHN0 kUaaSJbpBSLogW3hEBWsS 7y5SeIxHnD9FSkgX7Ttug T1WUPdkQHlAOIqhWHGdG9 ftzthw9fmjvbf KbUmLRZiYFo2NWv9WZLmi AprHcKlXQQ6RyD6NPW2jF DuqG9nfJdlsdxsqP8iDuw +TVJOOjwvdGQ+ LWJuUOI1uOnxXXjmPVXxf Y7wZBApI5f7LxRbVxC0YO cuQ8DepsT4QDVcxWIpGCR mhFUUiR6rydnp j2hkpcazKmJwQZPzHRm5N Vp3RCMlhNutBlGqIXS3Uj Z8EGW5fBVzaD6eyMyyrww zzU4eNiy+UGF5 OKS1CK32JD83G8AzNlbmp GFibGU+PHRhYmxlIHdpZH RoPScxMDAlJyBzdHlsZT0 zZe8oLOGpHRTf bGxh (more content not included)... [facility] Capillary Glucose POCon 05-19 Glucose [Mass/Vol] 82 mg/dL Normal 55-99 [facility] Comment on above: Performed By: #### 2 [id number] #### [facility] [address] [place] [address] Consent for Treatmenton 05-19 Consent for Treatment [id number] .00CD:127 [facility] Glu 1 Hron 06-03-2020 Glucose [Mass/Vol] 139 mg/dL Normal 55-180 [facility] Comment on above: Result Comment: POSI TIVE SCREEN = 1 HR > 140 mg/dL Performed By: #### 2 [id number] #### [facility] [address] [place] [address] Glu 2 Hron 06-03-2020 Glucose [Mass/Vol] 123 mg/dL Normal 55-155 [facility] Comment on above: Result Comment: DIAB ETES FASTING >126 mg/dL or 2 HOUR >200 mg/dL Performed By: #### 2 [id number], [id number], [id number] #### [facility] [address] [place] [address] Glu 3 Hron 06-03-2020 Glucose [Mass/Vol] 101 mg/dL Normal 55-140 [facility] Comment on above: Result Comment: GEST ATIONAL DIABETES 2 of the following: FASTING >95 mg/dL 1 HOUR >180 mg/dL 2 HOUR >155 mg/dL 3 HOUR >140 mg/dL Performed By: #### 2 [id number] ####[facility] [address] [place] [address] Glu Fastingon 06-03-2020 Glucose [Mass/Vol] 83 mg/dL Normal 55-99 [facility] Comment on above: Performed By: #### 2 013932, 7252031, [id number] #### [facility] [address] [place] [address] Rubella Abon 06-03-2020 Rubella Ab Positive Normal Positive [facility] Comment on above: Performed By: #### 2 [id number], [id number], [id number] #### [facility] [address] [place] [address] ABO/Rhon 06-02-2020 ABO/Rh Positive Invalid Interpretation Code [facility] Comment on above: Performed By: #### 1 [id number], [id number] ####[facility] [address] [place] [address] ABSCon 06-02-2020 ABSC Gel Interp Negative Normal [facility] Comment on above: Performed By: #### 1 [id number], [id number] ####[facility] [address] [place] [address] CBC w/Indiceson 06-02-2020 Erythrocyte distribution width (RBC) [Ratio] 12.9 % Normal 10.9-14.2 [facility] Comment on above: Performed By: #### 2 941122, [id number], [id number] #### [facility] [address] [place] [address] Hematocrit (Bld) [Volume fraction] 33.5 % Low 34.0-46.0 [facility] Comment on above: Performed By: #### 2 620348, 7280001, [id number] #### [facility] [address] [place] [address] Hemoglobin (Bld) [Mass/Vol] 11.2 g/dL Low 12.0-16.0 [facility] Comment on above: Performed By: #### 2 400082, 0890439, [id number] #### [facility] [address] [place] [address] MCH (RBC) [Entitic mass] 29.0 pg Normal 27.0-34.0 [facility] Comment on above: Performed By: #### 2 986821, 6680015, [id number] #### [facility] [address] [place] [address] MCHC (RBC) [Mass/Vol] 33.5 g/dL Normal 31.4-36.0 [facility] Comment on above: Performed By: #### 2 337095, 7218789, [id number] #### [facility] [address] [place] [address] MCV (RBC) [Entitic vol] 86.6 fL Normal 80.0-100.0 F [facility] Comment on above: Performed By: #### 2 687184, 5106381, [id number] #### [facility] [address] [place] [address] Platelet mean volume (Bld) [Entitic vol] 7.6 fL Normal 6.4-10.8 [facility] Comment on above: Performed By: #### 2 455979, 7528148, [id number] #### [facility] [address] [place] [address] Platelets (Bld) [#/Vol] 284.0 E9/L Normal 150.0-500.0 [facility] Comment on above: Performed By: #### 2 408887, 2544941, [id number] #### [facility] [address] [place] [address] RBC (Bld) [#/Vol] 3.9 E12/L Low 4.3-5.9 [facility] Comment on above: Performed By: #### 2 741621, 8551543, [id number] #### [facility] [address] [place] [address] WBC corrected for nucl RBC Auto (Bld) [#/Vol] 9.4 E9/L Normal 4.0-11.0 [facility] Comment on above: Performed By: #### 2 168925, 6003330, [id number] #### [facility] [address] [place] [address] Consent for Treatmenton 05-19 Consent for Treatment [id number]#1 .00CD:127 [facility] Gest Scr Glu 1 Hron 06-03-19 21 Glucose [Mass/Vol] 150 mg/dL High 55-140 [facility] Comment on above: Result Comment: Posi tive Screen =1 HR > 140mg/dL Performed By: #### 2 106602, 1770902, [id number] #### [facility] [address] [place] [address] Ambulatory Clinical Summaryo n 2020 Ambulatory Clinical Summary {[id number] -26-70}CD:[id number] [facility] Obstetrics Office/Clinic Not jasmine 2020 Obstetrics Office/Clinic Note Chief Complaint OB 29w 5d, baby moving, patient doing 28 week labs done this Obstetric History History (1,0,0,2) # 1 Baby 1 Outcome Date: 2008 Outcome: Live Outcome or Result: Vaginal Gender: Female Gest Age: 41 weeks Wt: 3232 g [facility] [facility] Labor: -- Child's Name: -- Baby's [...] Ordered. Mood now good. 28wk labs on Th. TdaP at next visit. General Exam: Constitutional: [...] trimester) Ordered: Office Visit Level 4 Est 80509 [facility] Follow Up US Follow Up 2. Obesity complicating , third trimester (O99.213: Obesity complicating , third trimester) Ordered: Office Visit Level 4 Est 11101 [facility] Follow Up Follow Up 3. Depression during (O99.340: Other mental disorders complicating , unspecified trimester) Ordered: Office Visit Level 4 Est 52423 [facility] Follow Up US Follow Up 4. 29 weeks gestation of (Z3A.29: 29 weeks gestation of ) Ordered: Office Visit Level 4 Est 18284 [facility] Follow Up Follow Up Follow-up With When Contact Information LAURA MACEDO, Funmilayo Ryan In [address] [place] [address]- Additional Instructions: Problem List/Past Medical [...] 14:25:00) Protein Urine Dipstick: Negative (05/31/20 14:25:00) [facility] Comment on above: Result Comment: Elec tronically Signed By: LAURA MACEDO, Funmilayo Garner.rosey\Date and Time Signed: 05/31/20 15:32 EDT Patient [...] including vitamins, herbs, eye drops, creams, and abmu-lqq-uhzbjik medicines. ? Any blood disorders you have. [...] mean. This inform (more content not included)... [facility] RAD - Ultrasound Reporton RAD - Ultrasound Report [id number]#1. 00CD:127 [facility] Coding Summary.on 05-17-2020 Coding Summary. CODING DATE: 05/16/2020 FINAL [facility] STATUS: Home (Routine DC) PAYOR: Diamond [...] [facility] CphT Date Saved: 05/16/2020 11:17 pm [facility] C Urineon 05-13-2020 Bacteria identified Cx Nom (U) Microbiology PROCEDURE: Urine Culture [R1] SOURCE: U Random BODY SITE: COLLECTED DATE/TIME: 05/11/2020 10:37 EDT RECEIVED DATE/TIME: 05/11/2020 19:08 EDT START DATE/TIME: 05/11/2020 19:08 EDT FREE TEXT SOURCE: Caroline HILARIO Stephanie FINAL REPORTS Final Report [] Verified Date/Time: 05/13/2020 08:25 EDT 4,000 cfu/ml Mixed skin contaminants Performing Locations R1: This test was performed at: [facility], [address] [place] [address], [id number] [place] [address], Normal [facility] Comment on above: Performed By: #### 2 [id number] ####[facility] [address] [place] [address] Ambulatory Clinical Summaryo n 05-11-2020 Ambulatory Clinical Summary {[id number] -f9-14}CD:[id number] [facility] Obstetrics Office/Clinic Not jasmine 05-11-2020 Obstetrics Office/Clinic Note Chief Complaint OB visit 26 weeks 6 days. Leg Pain, Has alot of anxiety. Tired all the time. 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 Obstetric History History (1,0,0,2) # 1 Baby 1 Outcome Date: 2008 Outcome: Live Outcome or Result: Vaginal Gender: Female Gest Age: 41 weeks Wt: 3232 g [facility] [facility] [place] Labor: -- Child's Name: -- Baby's [...] far. Ordered: Office Visit Level 3 Est 86394 [place] 2. Depression during (O99.340: Other mental disorders complicating , unspecified trimester) Doing meditation. Ordered: Office Visit Level 3 Est 47218 [place] 3. Supervision of high risk in [...] 1 Hour Office Visit Level 3 Est 23215 [place] Urine Culture 4. 26 weeks gestation of (Z3A.26: 26 weeks gestation of ) Ordered: Office Visit Level 3 Est 58701 [place] Follow-up With When Contact Information [facility] In [address] [place], [place] [address]- Additional Instructions: Problem List/Past Medical History Ongoing [...] Smokeless Toba (more content not included)... [facility] Comment on above: Result Comment: Elec tronically Signed By: Carolnie HILARIO\.rosey\Date and Time Signed: 05/11/20 10:23 EDT [...] a pot with a lid). Bathing ? Infant bath basin. ? Mild baby soap and baby shampoo. ? Soft cloth towel and washcloth. ? Hooded towel. Diapering ? Diapers. You may need to use as many as 10?12 diapers each day. ? Baby wipes. ? Diaper cream. ? Petroleum jelly. ? 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 ? Hand distribution sales manager. Health and safety ? Rectal thermometer. [...] ? Consumer Product Safety Commission: www.cpsc.gov ? [place] [employer]: www.healthychildren.o rg ? Safe [...] 01/17/2009 Document Revised: 01/17/2018 Document Reviewed: 12/25/2017 [employer] Patient Education ? 2019 [employer] [facility] Coding Summary.on 04-29-2020 Coding Summary. CODING DATE: 04/28/2020 FINAL [facility] STATUS: Home (Routine DC) PAYOR: Marvel ADMIT DX: REASON FOR VISIT DX: O09.92 [...] [facility] Date Saved: 04/28/2020 10:33 pm [facility] Coding Summary.on 04-27-2020 Coding Summary. CODING DATE: 04/27/2020 FINAL [facility] STATUS: Home (Routine DC) PAYOR: Diamond [...] [facility] Date Saved: 04/27/2020 10:53 am [facility] Nursing Assessmenton 021 Nursing Assessment [id number]#1 .00CD:127 [facility] C Urineon 04-23-2020 Bacteria identified Cx Nom [...] [facility]: [facility], [address] [place] [address], [address] , , [facility] Comment on above: Performed By: #### 2 [id number], [id number], [id number] #### [facility] [address] [place] [address] Consent for Treatmenton Consent for Treatment [id number] .00CD:127 [facility] Consent for Treatment [id number] .00CD:127 [facility] Discharge Instructionson Discharge Instructions [id number]#1 .00CD:127 [facility] Inpatient Clinical Summaryon 04-21-2020 Inpatient Clinical Summary [address] [id number] Clinical Summary Person Information Name: MYA MYLES Ifeoma/[facility] Age: 29 Years : 1990 Sex: Female PCP: Chao Blackwell III, DO Marital Status: Single Race: White Ethnicity: Non- or Language: [place] Citizen Visit Id: Visit Reason: Speciality: Acuity: Enc Type: OB Triage Med Service: Obstetrics Arrival: 04/21/2020 15:56:05 Discharge: 04/21/2020 17:47:48 Dispo Type: Home (Routine DC) Address: [address] [place] [address] [id number] Provider Notes: Diagnosis: Problems Active Depression during [...] Follow up: With: Address: When: Funmilayo ESCOBEDO [place] [id number] Business (1) 05/12/2020 9:00 AM Comments: Call for any problems. Type Location [facility] 05/12/2020 9:00 AM 05/12/2020 9:15 AM Confirmed Patient Education Information: [facility] Inpatient Patient Summaryon 04-21-2020 Inpatient Patient Summary [address] [address] Patient Discharge Instructions PERSON INFORMATION [...] Follow up: With: Address: When: Funmilayo ESCOBEDO [address] [place] [id number] Business (1) 05/12/2020 9:00 AM Comments: Call for any problems. In the event that this physician does not participate in your insurance network, please consult with your insurance company to find a nearby participating provider. Type Location [facility] [employer] [place] 05/12/2020 9:00 AM 05/12/2020 9:15 AM Confirmed [...] Leaflets: You may receive a survey from [employer] asking you to rate your care experience. Your feedback is important and will help us understand what we do well and how we can improve the quality of care we provide to you, your loved ones and our community. It?s an honor to serve you. Thank you for choosing [facility] Insurance Correspondence Off iceon 04-21-2020 Insurance Correspondence Office [id number] .[id number]:127 [facility] RAD - Ultrasound Reporton RAD - Ultrasound Report [id number] .[id number]:127 [facility] UA With Cult Reflexon 2020 Bacteria LM Ql (Urine sed) 1+ /HPF Abnormal Trace [facility] Comment on above: Performed By: #### 2 [id number], [id number], [id number] #### [facility] [address] [place] [address] Bilirubin Ql (U) Negative Normal Negative [facility] Comment on above: Performed By: #### 2 703224, 6767177, [id number] #### [facility] [address] [place] [address] Clarity (U) CLEAR Normal Clear [facility] Comment on above: Performed By: #### 2 093208, 8282234, [id number] #### [facility] [address] [place] [address] Color (U) YELLOW Normal Yellow [facility] Comment on above: Performed By: #### 2 832832, 7102995, [id number] #### [facility] [address] [place] [address] Epithelial cells.squamous LM.HPF (Urine sed) [#/Area] 3-4 Normal 0-2 [facility] Comment on above: Performed By: #### 2 074451, 2286675, [id number] #### [facility] [address] [place] [address] Glucose Test strip (U) [Mass/Vol] Negative Normal Negative [facility] Comment on above: Performed By: #### 2 726709, 8720546, [id number] #### [facility] [address] [place] [address] Hemoglobin Ql (U) Negative Normal Negative [facility] Comment on above: Performed By: #### 2 784499, 0916157, [id number] #### [facility] [address] [place] [address] Ketones (U) [Mass/Vol] 1+ Abnormal Negative [facility] Comment on above: Performed By: #### 2 388320, 6736630, [id number] #### [facility] [address] [place] [address] [place].plasma/[place].R BC (Bld) [Mass ratio] 0-3 Normal 0-3 [facility] Comment on above: Performed By: #### 2 902241, 7413327, [id number] #### [facility] [address] [place] [address] Nitrite Ql (U) Negative Normal Negative [facility] Comment on above: Performed By: #### 2 762827, 3629854, [id number] #### [facility] [address] [place] [address] pH (U) 7.0 [pH] Invalid Interpretation Code 5.0-9.0 [facility] Comment on above: Performed By: #### 2 384354, 4384925, [id number] #### [facility] [address] [place] [address] Protein (U) [Mass/Vol] Negative Normal Negative [facility] Comment on above: Performed By: #### 2 039136, 2919462, [id number] #### [facility] [address] [place] [address] Specific gravity (U) [Rel density] 1.010 Invalid Interpretation Code 1.005-1.030 [facility] Comment on above: Performed By: #### 2 017237, 2504876, [id number] #### [facility] [address] [place] [address] UA Spec Desc Clean Catch [facility] Comment on above: Performed By: #### 2 245094, 2072834, [id number] #### [facility] [address] [place] [address] Urobilinogen Qn (U) 0.2 {Henny'U}/dL Normal 0.0-1.0 [facility] Comment on above: Performed By: #### 2 436286, 5617521, [id number] #### [facility] [address] [place] [address] WBC Auto Ql (U) 1+ Abnormal Negative [facility] Comment on above: Performed By: #### 2 640150, 7197394, [id number] #### [facility] [address] [place] [address] WBC LM.HPF (Urine sed) [#/Area] 0-5 Normal 0-5 [facility] Comment on above: Performed By: #### 2 867139, 1159370, [id number] #### [facility] [address] [place] [address] C Urineon 04-18-2020 Bacteria identified Cx Nom [...] Locations R1: This test was performed at: [facility], [address] [place] [address], [address] , , [facility] Comment on above: Performed By: #### 2 248187 ####[facility] [address] [place] [address] Obstetrics Office/Clinic Not jasmine 04-18-2020 Obstetrics Office/Clinic Note Chief Complaint OB 21w 5d, baby moving Obstetric History History (1,0,0,2) # 1 Baby 1 Outcome Date: 2006 Outcome: Live Outcome or Result: Vaginal Gender: Female Gest Age: 41 weeks Wt: 3232 g [facility] [facility] [place] Labor: -- Child's Name: -- Baby's [...] trimester) Ordered: Office Visit Level 4 Est 16430 NC 2. Obesity complicating , second trimester (O99.212: Obesity complicating , second trimester) Ordered: Office Visit Level 4 Est 87239 NC 3. 21 weeks gestation of (Z3A.21: 21 weeks gestation of ) Ordered: Office Visit Level 4 Est 77498 NC 4. Depression during (O99.340: Other mental disorders complicating , unspecified trimester) Ordered: Office Visit Level 4 Est 15499 NC Follow-up With When Contact Information Funmilayo ESCOBEDO MD In [address] [place] [address]- Additional Instructions: Problem List/Past Medical History Ongoing [...] pts pharmacy. Spoke with pt. 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 Will repeat urine cx at next visit. Kendal Escobedo MD [facility] Comment on above: Result Comment: Elec tronically Signed By: LAURA MACEDO, Funmilayo Garner.br\Date and Time Signed: 04/18/20 18:12 EST C Urineon 04-17-2020 Bacteria identified Cx Nom (U) Microbiology PROCEDURE: Urine Culture [R1] SOURCE: U CleanCatch BODY SITE: COLLECTED DATE/TIME: 04/15/2020 02:51 EST RECEIVED DATE/TIME: 04/15/2020 02:51 EST START DATE/TIME: 04/15/2020 02:51 EST FREE TEXT SOURCE: Caroline HILARIO Stephanie FINAL REPORTS Final Report [] Verified Date/Time: 04/17/2020 10:39 EST <10,000 cfu/ml Mixed skin contaminants Performing Locations R1: This test was performed at: [facility], [address] [place] [address], [facility] , , [facility] Comment on above: Performed By: #### 2 [id number] ####[facility] [address] [place] [address] HIV Screen 4th Generation wR fxon 04-16-2020 HIV 1+2 Ab+HIV1 p24 Ag IA Ql Non-Reactive Invalid Interpretation Code Non Reactive [facility] Comment on above: Result Comment: Perf ormed at: [facility] [address] [id number] PhD Lanette Dunn Performed By: #### 2 130976, [id number], [id number] #### [facility] [address] [place] [address] Hep Bs Agon 04-16-2020 HBV surface Ag IA Ql Negative Invalid Interpretation Code Negative [facility] Comment on above: Result Comment: Perf ormed at: CB [facility] [address] [id number] PhD Lanette Dunn Performed By: #### 2 177193, [id number], [id number] #### [facility] [address] [place] [address] Coding Summary.on 04-15-2020 Coding Summary. CODING DATE: 04/15/2020 FINAL [facility] STATUS: Home (Routine DC) PAYOR: Marvel ADMIT DX: REASON FOR VISIT DX: O09.91 [...] CphT Date Saved: 04/15/2020 09:18 am [facility] RPRon 04-15-2020 Reagin Ab RPR Ql (S) Non-Reactive Normal Non-Reactive [facility] Comment on above: Performed By: #### 9 [id number], [id number] ####[facility] [address] [place] [address] ABO/Rhon 04-14-2020 ABO/Rh Positive Invalid Interpretation Code [facility] Comment on above: Performed By: #### 2 575060, [id number] #### [facility] [address] [place] [address] ABSCon 04-14-2020 ABSC Gel Interp Negative Normal [facility] Comment on above: Performed By: #### 2 115184, [id number] #### [facility] [address] [place] [address] Ambulatory Clinical Summaryo n 04-14-2020 Ambulatory Clinical Summary {[id number] -03-14}CD:736611 Normal [facility] Auto Diffon 04-14-2020 Basophils/100 WBC (Bld) 0.3 % Normal 0.0-2.0 [facility] Comment on above: Order Comment: Order Added by Discern Expert. Performed By: #### 2 470122, 3042306, [id number] #### [facility] [address] [place] [address] Basophils/Leukocytes Auto (Bld) [Pure # fraction] 0.0 E9/L Normal 0.0-0.2 [facility] Comment on above: Order Comment: Order Added by Discern Expert. Performed By: #### 2 381269, 1421374, [id number] #### [facility] [address] [place] [address] Eosinophils/100 WBC (Bld) 0.3 % Normal 0.0-8.0 [facility] Comment on above: Order Comment: Order Added by Discern Expert. Performed By: #### 2 608247, 2474939, [id number] #### [facility] [address] [place] [address] Eosinophils/Leukocytes Auto (Bld) [Pure # fraction] 0.0 E9/L Normal 0.0-0.5 [facility] Comment on above: Order Comment: Order Added by Discern Expert. Performed By: #### 2 660589, 9615602, [id number] #### [facility] [address] [place] [address] Lymphocytes/100 WBC (Bld) 19.1 % Normal 14.0-50.0 [facility] Comment on above: Order Comment: Order Added by Discern Expert. Performed By: #### 2 353650, 6512426, [id number] #### [facility] [address] [place] [address] Lymphocytes/Leukocytes Auto (Bld) [Pure # fraction] 1.4 E9/L Normal 1.0-4.0 [facility] Comment on above: Order Comment: Order Added by Discern Expert. Performed By: #### 2 445601, 6542380, [id number] #### [facility] [address] [place] [address] Monocytes/100 WBC (Bld) 6.4 % Normal 4.0-14.0 [facility] Comment on above: Order Comment: Order Added by Discern Expert. Performed By: #### 2 775599, 4010524, [id number] #### [facility] [address] [place] [address] Monocytes/Leukocytes Auto (Bld) [Pure # fraction] 0.5 E9/L Normal 0.2-1.0 [facility] Comment on above: Order Comment: Order Added by Idalia Expert. Performed By: #### 2 555631, 9009196, [id number] #### [facility] [address] [place] [address] Neutrophils/100 WBC (Bld) 73.9 % Normal 36.0-75.0 [facility] Comment on above: Order Comment: Order Added by Idalia Expert. Performed By: #### 2 945162, 0156742, [id number] #### [facility] [address] [place] [address] Neutrophils/Leukocytes Auto (Bld) [Pure # fraction] 5.3 E9/L Normal 2.0-7.5 [facility] Comment on above: Order Comment: Order Added by Discern Expert. Performed By: #### 2 960239, 1839765, [id number] #### [facility] [address] [place] [address] BhCG Quanton 04-14-2020 [place] [address] m[IU]/mL High 1-3 F [facility] Comment on above: Result Comment: GEST ATIONAL AGE HCG RANGE (mIU/mL) NON- <1-3 0.2-1 WEEKS 5-50 1-2 WEEKS 50-500 2-3 WEEKS 100-5,000 3-4 WEEKS 500-10,000 4-5 WEEKS 1,000-50,000 5-6 WEEKS 10,000-100,000 6-8 WEEKS 15,000-200,000 8-12 WEEKS 10,000-100,000 Performed By: #### 2 871631 #### [facility] [address] [place] [address] CBC w/ Auto Diffon Erythrocyte distribution width (RBC) [Ratio] 13.0 % Normal 10.9-14.2 [facility] Comment on above: Performed By: #### 2 531268, 9375904, [id number] #### [facility] [address] [place] [address] Hematocrit (Bld) [Volume fraction] 34.6 % Normal 34.0-46.0 [facility] Comment on above: Performed By: #### 2 924811, 3213398, [id number] #### [facility] [address] [place] [address] Hemoglobin (Bld) [Mass/Vol] 11.6 g/dL Low 12.0-16.0 [facility] Comment on above: Performed By: #### 2 835834, 7949126, [id number] #### [facility] [address] [place] [address] MCH (RBC) [Entitic mass] 29.8 pg Normal 27.0-34.0 [facility] Comment on above: Performed By: #### 2 948546, 3987935, [id number] #### [facility] [address] [place] [address] MCHC (RBC) [Mass/Vol] 33.4 g/dL Normal 31.4-36.0 [facility] Comment on above: Performed By: #### 2 100942, 2814009, [id number] #### [facility] [address] [place] [address] MCV (RBC) [Entitic vol] 89.2 fL Normal 80.0-100.0 F [facility] Comment on above: Performed By: #### 2 206267, 2860897, [id number] #### [facility] [address] [place] [address] Platelet mean volume (Bld) [Entitic vol] 7.8 fL Normal 6.4-10.8 [facility] Comment on above: Performed By: #### 2 951419, 1358734, [id number] #### [facility] [address] [place] [address] Platelets (Bld) [#/Vol] 326.0 E9/L Normal 150.0-500.0 [facility] Comment on above: Performed By: #### 2 266861, 8010848, [id number] #### [facility] [address] [place] [address] RBC (Bld) [#/Vol] 3.9 E12/L Low 4.3-5.9 [facility] Comment on above: Performed By: #### 2 226779, 7798568, [id number] #### [facility] [address] [place] [address] WBC corrected for nucl RBC Auto (Bld) [#/Vol] 7.2 E9/L Normal 4.0-11.0 [facility] Comment on above: Performed By: #### 2 895492, 1062998, [id number] #### [facility] [address] [place] [address] Consent for Treatmenton 03-22 Consent for Treatment [id number] .00CD:127 Normal [facility] DqaI3vqy 04-14-2020 HbA1c (Bld) [Mass fraction] 4.8 % Normal <=5.9 [facility] Comment on above: Performed By: #### 2 138284, 5311589, [id number] #### [facility] [address] [place] [address] Patient Educationon 04-14-19 Patient Education How a [...] Document Reviewed: 07/23/2008 ExitCare? Patient Information ?2013 [place]. Obstetrics and Gynecology Eating Plan for Women [...] your (t (more content not included)... [facility] U Drug Screenon 04-14-2020 Amphetamines Screen method >1000 ng/mL Ql (U) Negative Normal Negative [facility] Comment on above: Result Comment: Nega tive Cutoff: <1000 ng/mL Performed By: #### 2 775240 #### [facility] [address] [place] [address] Barbiturates Screen Ql (U) Negative Normal Negative [facility] Comment on above: Result Comment: Nega tive Cutoff: <200 ng/mL Performed By: #### 2 991890 #### [facility] [address] [place] [address] Benzodiazepines Ql (U) Negative Normal Negative [facility] Comment on above: Result Comment: Nega tive Cutoff: <200 ng/mL Performed By: #### 2 261415 #### [facility] [address] [place] [address] Cocaine Ql (U) Negative Normal Negative [facility] Comment on above: Result Comment: Nega tive Cutoff: <300 ng/mL Performed By: #### 2 201210 #### [facility] [address] [place] [address] Opiates Screen Ql (U) Negative Normal Negative [facility] Comment on above: Result Comment: Nega tive Cutoff: <300 ng/mL Performed By: #### 2 793173 #### [facility] [address] [place] [address] Phencyclidine Screen method >25 ng/mL Ql (U) Negative Normal Negative [facility] Comment on above: Result Comment: Nega tive Cutoff: <25 ng/mL These drug screen results are to be used for medical (i.e., treatment) purposes only. Unconfirmed drug screening results must not be used for non-medical purposes (e.g., employment testing, legal testing). Performed By: #### 2 419070 #### [facility] [address] [place] [address] Tetrahydrocannabinol Screen method >50 ng/mL Ql (U) Negative Normal Negative [facility] Comment on above: Result Comment: Nega tive Cutoff: <50 ng/mL Performed By: #### 2 969142 #### [facility] [address] [place] [address] RAD - Ultrasound Reporton RAD - Ultrasound Report [id number] .00CD:127 Normal [facility] Lab Reportson 03-14-2020 Lab Reports [id number] .00CD:127 Normal [facility] Ambulatory Clinical Summaryo n 02-29-2020 Ambulatory Clinical Summary {[id number] -3a-98}CD:037010 Normal [facility] Ambulatory Clinical Summary {[id number]-43 -[id number]-[id number] -73-bd}CD:335277 Normal [facility] Obstetrics Office/Clinic Not jasmine 02-29-2020 Obstetrics Office/Clinic Note Chief Complaint OB 15w 2d, feeling flutters, occ. [place] Obstetric History History (1,0,0,2) # 1 Baby 1 Outcome Date: 2008 Outcome: Live Outcome or Result: Vaginal Gender: Female Gest Age: 41 weeks Wt: 3232 g [facility] [facility] [place] Labor: -- Child's Name: -- Baby's [...] RTC 4 wks. Has anatomy US with MFNeelam on 03/22. Discussed weight gain and exercise in . 1. Supervision of high risk in second trimester (O09.92: Supervision of high risk , unspecified, second trimester) Ordered: Office Visit Level 4 Est 54527 TH 2. Obesity complicating , second trimester (O99.212: Obesity complicating , second trimester) Ordered: Office Visit Level 4 Est 54240 TH 3. 15 weeks gestation of (Z3A.15: 15 weeks gestation of ) Ordered: Office Visit Level 4 Est 39868 TH Follow-up With When Contact Information Funmilayo ESCOBEDO MD In [address] [place] [address]- Additional Instructions: Problem List/Past Medical [...] Protein Urine Dipstick: Negative (02/29/20 15:46:00) [facility] Comment on above: Result Comment: Elec tronically Signed By: Funmilayo ESCOBEDO MD\.br\Date and Time Signed: 02/29/20 16:25 EST Patient Educationon 02-28-19 21 Patient Education Exercise During It is possible [...] 04/28/2012 Document Reviewed: 05/19/2009 ExitCare? Patient Information ?2013 [place]. [facility] How a Baby Grows During begins when [...] flex an (more content not included)... [facility] Physician Referralon 021 Physician Referral [id number] .00CD:127 [facility] RAD - Ultrasound Reporton RAD - Ultrasound Report [id number] .00CD:127 Normal [facility] Physician Referralon 020 Physician Referral [id number] .00CD:127 Normal [facility] Physician Referralon 020 Physician Referral [id number] .00CD:127 Normal [facility] Chlamydia/Gonococcus, NAAon 01-30-2020 C. trachomatis rRNA KAIDEN+probe Ql (Unsp spec) Negative Invalid Interpretation Code Negative [facility] Comment on above: Performed By: #### 2 860388, 7831681, [id number] #### [facility] [address] [place] [address] N. gonorrhoeae rRNA KAIDEN+probe Ql (Unsp spec) Negative Invalid Interpretation Code Negative [facility] Comment on above: Result Comment: Perf ormed at: =G [facility] [address] [id number] MD Kehinde Rivero Performed By: #### 2 028277, 5956009, [id number] #### [facility] [address] [place] [address] Coding Summary.on 01-29-2020 Coding Summary. CODING DATE: 01/29/2020 FINAL [facility] STATUS: Home (Routine DC) PAYOR: Self [...] Garcia Date Saved: 01/29/2020 01:52 pm Normal [facility] Ambulatory Clinical Summaryo n 01-27-2020 Ambulatory Clinical Summary {[id number] -[id number]}CD:736060 Normal [facility] Obstetrics Office/Clinic Not jasmine 01-27-2020 Obstetrics Office/Clinic Note Chief Complaint 1st OB 10 Weeks 4 days. Some Nausea. Obstetric History History (1,0,0,2) # 1 Baby 1 Outcome Date: 2008 Outcome: Live Outcome or Result: Vaginal Gender: Female Gest Age: 41 weeks Wt: 3232 g [place] [facility] [place] Labor: -- Child's Name: -- Baby's [...] Confirmed Description: -- Comments: -- Entered by: aCroline HILARIO on 01/11/2020 Other [place] Calculations for [...] drug use. Last pap 2-13-18, NILM. 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 Review of Systems Constitutional: No fever, No [...] genetic testin (more content not included)... [facility] Comment on above: Result Comment: Elec tronically Signed By: Caroline HILARIO\.br\Date and Time Signed: 01/27/20 14:40 EST Patient Educationon 01-27-20 20 Patient Education Family Medicine How a Baby [...] Document Reviewed: 07/23/2008 ExitCare? Patient Information ?2013 [place] P[place]. [facility] January 27, 2020 MYA MYLES [address] [place] [address] [place] [address] MYA MYLES 1990 Our patient Mya Myles is with a single IUP. EDC is 08/20/20 [place] [address] [place], [place] [address] [facility] Coding Summary.on 01-22-2020 Coding Summary. CODING DATE: 01/22/2020 FINAL [facility] STATUS: Home (Routine DC) PAYOR: Self [...] Gloria Fleming Date Saved: 01/22/2020 08:46 am [facility] 1st Trimesteron 01-11-2020 1st Trimester Exam Date/Time: [...] corresponding gestational age +/- 1 week are: [place] Rump Length: 1.8 cm Composite Ultrasound Age: [...] Transabdominal Ultrasound Performed Size = Dates Normal [facility] Ambulatory Clinical Summaryo n 01-07-2020 Ambulatory Clinical Summary {[id number] -79-56}CD:209296 Normal [facility] Ambulatory Clinical Summaryo n 01-06-2020 Ambulatory Clinical Summary {[id number] -12-53}CD:407119 [facility] BhCG Quanton 01-06-2020 HCG.beta subunit Qn 114379 m[IU]/mL High 1-3 [facility] Comment on above: Result Comment: GEST ATIONAL AGE HCG RANGE (mIU/mL) NON- <1-3 0.2-1 WEEKS 5-50 1-2 WEEKS 50-500 2-3 WEEKS 100-5,000 3-4 WEEKS 500-10,000 4-5 WEEKS 1,000-50,000 5-6 WEEKS 10,000-100,000 6-8 WEEKS 15,000-200,000 8-12 WEEKS 10,000-100,000 Performed By: #### 2 893357, 0158988, [id number] #### [facility] [address] [place] [address] Consent for Treatmenton 12-19 Consent for Treatment [id number] .00CD:127 Normal [facility] Gynecology Office/Clinic Not jasmine 01-06-2020 Gynecology Office/Clinic Note Chief Complaint Confirmation of , Nausea Some Vomitting. Has had Dark pink Spotting, First OB paper work added . Obstetric History History (1,0,0,2) # 1 Baby 1 Outcome Date: 2008 Outcome: Live Outcome or Result: Vaginal Gender: Female Gest Age: 41 weeks Wt: 3232 g [place] [facility] [place] Labor: -- Child's Name: -- Baby's [...] order subsequent US. Plan to refer to [facility] d/t hx child with congenital lymphedema. Recommend [...] test, result positive) Ordered: HCG, Urine POC 22721 Follow-up No qualifying data available Problem List/Past [...] Results HCG, Urine: Positive (01/06/20 09:31:00) [facility] Comment on above: Result Comment: Elec tronically Signed By: Caroline HILARIO\.rosey\Date and Time Signed: 01/06/20 10:17 EST Progesteroneon 01-06-2020 Progesterone [Mass/Vol] 18.00 ng/mL Invalid Interpretation Code [facility] Comment on above: Result Comment: REFE RENCE RANGE Males 0.14-2.06 ng/mL Non- Females Follicular 0.10-0.60 ng/mL Luteal 3.00-17.5 ng/mL Midluteal 3.30-18.6 ng/mL Post-Menopausal 0.10-0.40 ng/mL First Trimester 8.30-66.5 ng/mL Second Trimester 18.9-66.1 ng/mL Third Trimester 35.8-312.4 ng/mL Performed By: #### 2 892194, 6566289, [id number] #### [facility] [address] [place] [address] Coding Summary.on 12-14-2019 Coding Summary. CODING DATE: 12/14/2019 FINAL [facility] STATUS: Home (Routine DC) PAYOR: Self [...] Garcia Date Saved: 12/14/2019 02:13 pm [facility] ED Note-Physicianon 12-14-19 20 ED Note-Physician Basic Information Time Seen: Kate MESA, Gege Lechuga 12/13/2019 19:14 Chief Complaint pt to ED with c/o consuming plastic from a burger at [employer] today. pt is . denies complaints History of Present Illness This patient presents emergency department after ingesting some type of plastic while eating a sandwich at [employer]. She states she was at [employer] restaurant. She bit down on something hard [...] Blackwell In 3 days 12/16/2019 EDT [address] [facility], [place] [address]- Business (1) Additional Instructions: Patient Education Swallowed Foreign Body, Adult, Bsve-ai-Zrpo Problem List/Past Medical History Ongoing Ovarian cyst Historical Medications Inpatient No active inpatient medications Home Bactroban 2% Cream, 1 ced, Topical, TID Meherrin 325 mg-5 mg oral tablet, 1 tab(s), Oral, q4hr, PRN Allergies No Known Allergies Social History Alcohol - Denies Alcohol Use, 11/21/2009 Substance Abuse - Denies Substance Abuse, 11/21/2009 Tobacco - Denies Tobacco Use, 11/21/2009 Family History Diabetes mellitus type 2: Mother and Father. Hypertension: Mother and Father. Lab Results No qualifying data available. Diagnostic Results No qualifying data available. [facility] Comment on above: Result Comment: Elec tronically Signed By: Gege Love PA-C\.br\Date and Time Signed: 12/13/19 19:34 EDT\.br\Electronically Co-Signed By: Ed Jerome MD\.br\Date and Time Co-Signed: 12/14/19 05:14 EDT Consent for Treatmenton 11-19 Consent for Treatment [id number] .00CD:127 Normal [facility] Discharge Instructionson Discharge Instructions [id number]# 1.00CD:127 Normal [facility] ED Clinical Summaryon 2019 ED Clinical Summary [facility] [address] [place], [place] [address] ED Clinical Summary Person Information Name: MYA MYLES Abdulaziz Dia/[facility] Age: 29 Years : 1990 Sex: Female Language: [place] Citizen PCP: Chao Blackwell III, DO Marital Status: Single Visit Id: Visit Reason: Medical screening exam; CONSUMED PLASTIC IN A BURGER FROM [place], APRX 6-8 WEEKS Speciality: Acuity: 4 Enc [...] 12/13/2019 19:44:03 12/13/2019 19:44:03 12/13/2019 19:44:03 ADDRESS: [address] [facility] [place] [id number] PHYS DOC NOTES: MEDICAL INFORMATION: Prescriptions Given: Medications to Continue with No Changes Other Medications acetaminophen-hydroco done (Meherrin 325 mg-5 mg oral tablet) 1 Tablets By Mouth every 4 hours as needed for pain. Refills: 0. mupirocin topical (Bactroban 2% Cream) 1 Application Topical 3 times a day. Refills: 0. PATIENT EDUCATION INFORMATION: Instructions: Swallowed Foreign Body, Adult, Eimv-df-Dsvl Follow up: With: Address: When: Chao Blackwell [address] [place] [address], [place] [address] Business (1) In 3 days 12/16/2019 DIAGNOSIS: 1:Ingestion of foreign body [facility] ED Patient Education Noteon 12-13-2019 ED [...] 04/28/2012 Document Reviewed: 05/22/2011 ExitCare? Patient Information ?2015 [place]. This information is not intended to replace advice given to you by your health care provider. Make sure you discuss any questions you have with your health care provider. Normal [facility] ED Patient Summaryon 020 ED Patient Summary [facility] [address] [place], [place] [address] Patient Discharge Instructions Person Information Name: MYA MYLES Age: 29 Years Arrival Date: 12/13/2019 18:29:24 Discharge Diagnosis: 1:Ingestion of foreign body Primary Care Physician: Chao Blackwell III, DO Provider Information Primary Provider: Advanced Public Relations Intern:None The exam and treatment you received in the Emergency Department were for an urgent problem and are not intended as complete care. It is important that you follow up with a doctor, nurse practitioner, or physician?s animal assistant for ongoing care. If your symptoms become worse or you do not improve as expected and you are unable to reach your usual health care provider, you should return to the Emergency Department. We are available 24 hours a day. MYA MYLES has been given the following list of patient education materials, prescriptions and follow-up instructions: Follow-up Instructions: With: Address: When: Chao Blackwell [address] [place] [address], [facility] [place] [address] Business (1) In 3 days 12/16/2019 In the event that this physician does not participate in your insurance network, please consult with your insurance company to find a nearby participating provider. Patient Education Materials: Swallowed Foreign Body, Adult, Ggwn-dx-Kfqq A MESSAGE TO ALL PATIENTS REGARDING OPIOIDS PRESCRIPTION OPIOIDS: WHAT YOU NEED TO KNOW Prescription opioids can be used to help relieve xlmkwuez-fz-wllpkc pain and are often prescribed following a [...] be struggling with addiction, tell your health critical care physician assistant and ask for guidance or call [facility]?S National Helpline at 0-319-229-BHJI. (more content not included)... [facility] Encounters Encounter Date Encounter Type Care Provider Facility Start: 09-09-2023 End: 09-09-2023 ambulatory LORNA BAEZA Not Available Start: 09-06-2023 End: 09-06-2023 ambulatory ROCK HARRISON [facility] Start: 08-12-2023 End: 08-12-2023 ambulatory ROCK HARRISON Not Available Start: 07-30-2023 End: 07-30-2023 ambulatory LADONNA CEBALLOS Not Available Start: 07-08-2023 End: 07-08-2023 ambulatory ROCK HARRISON Not Available Start: 06-07-2023 End: 06-07-2023 ambulatory ROCK HARRISON Not Available Start: 05-17-2022 End: 05-18-[address] IRENE ZUÑIGA Facility:[facility] Start: 05-16-2022 End: 05-16-[address] ROCK HARRISON . Facility:[facility] Start: 02-16-2020 End: 02-16-2020 Subsequent hospital visit by physician Najma Hilliard Work Phone: [facility] [address] [facility] Plan of Treatment Date Care Activity Detail Author Start: 10-20-2019 Influenza vaccination Flu vaccine (# 1) [place], [place] Payers Date Payer Category Payer Unknown [id number] 1990 Unknown [id number] 2.16.84 [id number] 1990 Unknown [id number] 2.16.84 [id number] 1990 Unknown [id number] 2.16.8 [id number] 1990 Unknown [id number] 2.16.8 [id number] 1990 Unknown [id number] 2.16.84 [id number] 1990 Unknown [id number] 2.16.84 [id number] 1990 Unknown [id number] 2.16.84 [id number] 1990 Unknown [id number] 2.16.84 [id number] 1992 Unknown [id number] 2.16.84 [id number] 1959 Unknown [id number] Social History Date Type Detail Facility Tobacco smoking status NHIS Unknown if ev er smoked [place], [place] Sex Assigned At Not on file [place], [place] Discharge summary note 08-16-2020 Note Date [...] complications. Course: Without complications. Sukhdeep Schaffer MD, FACOG gls Dictated: 08/13/2020 #[id number] Typed: 08/15/2020 #[id number] cc: Sukhdeep Schaffer MD, [facility] Comment on above: Result Comment: Elec tronically Signed By: Karime MACEDO, Sukhdeep Olivera\.br\Date and Time Signed: 08/16/20 08:09 EDT Clinical Note 08-05-2020 Note Date & Type Note Facility 08-05-2020 Note The following Patien t Education Materials have been given to the patient: [facility] History and physical note 08-04-2020 Note [...] Attention deficit hyperactivity disorder / SNOMED CT 8954272520 / Confirmed Chronic fatigue syndrome / SNOMED CT 88218340 / Confirmed Depression during / SNOMED CT 5913777697 / Confirmed Insomnia / SNOMED CT 822540504 / Confirmed Obesity / ICD-9-CM 278.00 / Possible Obesity complicating , third trimester / SNOMED CT 1937610419 / Confirmed Ovarian cyst / SNOMED CT 314946090 / Confirmed / SNOMED CT 291649746 / Confirmed labor / Patient Care / Confirmed Supervision of high risk in third trimester / SNOMED CT 09959053 / Confirmed Histories History History (1,0,0,2) # 1 Baby 1 Outcome Date: 2008 Outcome: Live Outcome or Result: Vaginal Gender: Female Gest Age: 41 weeks Wt: 3232 g [facility]: [facility] [place] Labor: -- Child's Name: -- Baby's [...] Use (11/21/2009) DENIES Employment/School 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 Home/Environment Lives with Children, Significant other. Living [...] hearing, Oral mu (more content not included)... [facility] Comment on above: Result Comment: Elec tronically Signed By: LAURA MACEDO, Funmilayo Garner.rosey\Date and Time Signed: 08/04/20 13:03 EDT Clinical Note 07-31-2020 Note Date & Type Note Facility 07-31-2020 Note The following Patien t Education Materials have been given to the patient: [facility] Clinical Note 07-26-2020 Note Date & Type Note Facility 07-26-2020 Note The following Patien t Education Materials have been given to the patient: [facility] History and physical note 07-11-2020 Note Date [...] for further cervical progression. Sukhdeep Schaffer MD, [facility] Dictated: 07/08/2020 #[id number] Typed 07/08/2020 #[id number] cc: Sukhdeep Schaffer MD, [facility] Comment on above: Result Comment: Elec tronically Signed By: Karime MACEDO, Sukhdeep Arciniega.br\Date and Time Signed: 07/11/20 07:40 EDT Clinical Note 07-08-2020 Note Date & Type Note Facility 07-08-2020 Note The following Patien t Education Materials have been given to the patient: [facility] Clinical Note 04-21-2020 Note Date & Type Note Facility 04-21-2020 Note The following Patien t Education Materials have been given to the patient: [facility] Summary Purpose Family History No Family History Records FoundNo Family History Records FoundNo Family History Records FoundNo Family History Records Found Advance Directives No Advanced Directives Records FoundNo Advanced Directives Records FoundNo Advanced Directives Records FoundNo Advanced Directives Records Found Additional Source Comments INFORMATION SOURCE (unrecogn ized section and content) DATE CREATED AUTHOR 09/15/2020 Christian Rodrigez [facility] DATE CREATED AUTHOR AUTHOR'S ORGANIZ ATION 06/29/2022 [facility] DATE CREATED AUTHOR AUTHOR'S ORGANIZ ATION 09/09/2023 [facility] DATE CREATED AUTHOR AUTHOR'S ORGANIZ ATION 09/12/2023 [facility] FOR RECORDS PERTAINING TO PATIENTS WHO ARE [...] BE BASED ON THE PRIMARY CLINICAL RECORDS. [facility] [employer] provides no warranty or guarantee of the accuracy or completeness of information in this document.
[2023-09-13 12:53] LABS: Glucose 1 Hour 104 mg/dL (<130)
== END 2023-09-13 11:24 | disposition home or self-care (01) ==
LOC: LAB 11:25
PROVIDERS: Visit Provider Obstetrics & Gynecology
DX: Z34.91 Encounter for supervision of normal pregnancy, unspecified, first trimester (principal)
CPT/HCPCS: 36415; 82950

== ENCOUNTER 2023-11-18 14:55 | Outpatient (OUT) | payer BC, SELFPAY ==
--- NOTE | 2023-11-18 14:56 | US_ITS ---
[address] [address] Patient Name: MYA CASTANEDA MRN: [id number] date: 1990 Sex: F Assigned Patient Location: [facility] Current Patient Location: Accession/Order Number: [id number] Exam Date: 11/18/2023 15:00 Report Date: 11/19/2023 04:24 At the request of: ROCK HARRISON Procedure: US OB growth EXAMINATION: US OB growth HISTORY: Excessive growth COMPARISON: Ultrasound OB transvaginal 05/31/2023 FINDINGS: Heart Rate: 133 bpm Amniotic Fluid Volume: 16.6 cm; normal range Number: 1 Position: CEPHALIC BIOMETRY: BPD: 8.37 cm; 33 weeks 5 days; >97 % HC: 31.43 cm; 35 weeks 2 days; >97 % AC: 31.64 cm; 35 weeks 4 days; >97 % FL: 5.76 cm; 30 weeks 1 day; 21.40 % EFW: 2482.72 g; >97 % FL/AC: 18.20 FL/BPD: 68.82 HC/AC: 0.99 GESTATIONAL AGE: Age by EDC: 30 weeks 5 days CLIFFORD by EDC: 2024-01-22 Age by US: 33 weeks 5 days CL[place] by US: 2024-01-01 US/US OB growth IMPRESSION: 1. Single live intrauterine with growth detailed above. 2. Estimated weight is greater than 97th percentile. Electronically authenticated by: LAURA COATES Date: 11/19/2023 04:24
--- OUTSIDE RECORDS SUMMARY | 2023-11-18 14:58 | XMS_ITS | CCD ---
Author Organization [facility] Care Team Providers Care Solder Cream Maker Name Role Phone Unavailable Primary Care Provider Unavailisaac CARYO ., DR WILKERSON Admitting Unavailable CHRISTY ., DR WILKERSON Attending Unavailable CHRISTY ., DR WILKERSON Consulting Unavailable [place], DR IRENE Dee Consulting Unavailable CHRISTY ., DR WILKERSON Attending Unavailable CHRISTY ., DR WILKERSON Admitting Unavailable CHRISTY ., DR WILKERSON Consulting Unavailable CHRISTYROCK R Referring Unavailable RY ERAZO Attending Unavailable CHARLOTTE VELASCO Referring Unavail able CHRISTY, ROCK R Referring Unavailable CY HARRISONY Attending Unavailable LADONNA CEBALLOS Attending Unavailable CHRISTY, ROCK Attending Unavailable LORNA BAEZA Attending Unavailable CHRISTY, ROCK Attending Unavailable Problems Problem Classification Problem Date [...] conditions (not mental disorders or infectious disease) (7 sources) Encounter for screening for malignant neoplasm of cervix; Translations: [Encounter for other screening follow-up] Onset: 05-17-2022 Episodic Ovarian cyst (1 source) [...] to 31on 05-24-2022 . . Normal [facility] Comment on above: Performed By: #### [id number] #### [facility] [address] [place] [address] Dr. Michael Garrett Age Gdln ACOG Testing 21-29 [facility] Comment on above: Performed By: #### [id number] #### [facility] [address] [place] [address] Dr. Michael Garrett DIAGNOSIS: Comment [facility] Comment on above: Result Comment: NEGA TIVE FOR INTRAEPITHELIAL LESION OR MALIGNANCY. CELLULAR CHANGES ASSOCIATED WITH INFLAMMATION ARE PRESENT. Performed By: #### 4 [id number] #### [facility] [address] [place] [address] Dr. Michael Garrett Methodology: Comment [facility] Comment on above: Result Comment: This liquid based ThinPrep(R) pap test was screened with the use of an image guided system. Performed By: #### 4 [id number] #### [facility] [address] [place] [address] Dr. Michael Garrett Note: Comment [facility] Comment on above: Result Comment: The Pap smear is a screening test designed to aid in the detection of premalignant and malignant conditions of the uterine cervix. It is not a diagnostic procedure and should not be used as the sole means of detecting cervical cancer. Both false-positive and false-negative reports do occur. . Performed By: #### 4 [id number] #### [facility] [address] [place] [address] Dr. Michael Garrett Performed by: Comment [facility] Comment on above: Result Comment: Francisco Otero, Heel Painter (ASCP) Performed By: #### [id number] #### [facility] [address] [place] [address] Dr. Michael Garrett Reflex Criteria: Comment [facility] Comment on above: Result Comment: The HPV DNA reflex criteria were not met with this specimen result therefore, no HPV testing was performed. . Performed By: #### 4 [id number] #### [facility] [address] [place] [address] Dr. Michael Garrett Specimen adequacy: Comment [facility] Comment on above: Result Comment: Sati sfactory for evaluation. Endocervical and/or squamous metaplastic cells (endocervical component) are present. Performed By: #### 4 [id number] #### [facility] [address] [place] [address] Dr. Michael Garrett US PELVIS AND TRANSVAGon [...] by: IRENE ZUÑIGA Date: 2022-05-18 07:45 Normal [facility] Nursing Assessmenton [facility] Nursing Assessment [id number] Normal [facility] Coding Summary.on 08-16-2020 Coding Summary. CD:[id number] G h0bWw+PGhlYWQ+NK5HBGW mX81kyRLbmE1AK9cTSN5N YUDTRWTGBS9YBF5aoWY7O BovA0ZbjbWr DcwtwAVlIM52ZAc8JYA2e BykYUmdhI1xrCHoW2j7Kc HuJI11gP72IPodQRFcKvB 3LjZpbjsgbWFy G8cqLmWvtDLzDag+PHRhY mxlIHdpZHRoPScxMDAlJy QsnNsuVH4zTg4qPYYtMIY vbGxhcHNlOiBj x1xiLTHxDFnbVM0gdMhkD 7QulCY4YCJsu3t6Yf67gZ I+JCMmLCF9kXcoQFbgt59 6FmWbx2kdNOG0 vJAxGKmqDFY8H21kd6V7H JBhIHWkLBH6rVI1pM0fyU tocgnqC3VmhEUfMvQ4QDX 0yBRalJ1auTgu roifcE9rPrv+B78IAK3OE RLTCP9BCbt0H3FoOelcaE I+OS28XZEpYN01gQWwjWC ti5fxaPd9XvBr TIPcDCB6qDraLDehs4KcZ TDeB17rwMAyt5Z6RTVnrO uftPWfKsJwoEZ4lV0iXWy ydlxok9tmtwfm Zwezf4avwa12jN42J52yR QqpCFVdFEW1HHKgZUQfbE uxve7jsE2yPm5+EVwvn6p rc0alpKp7MpGt SJCyhzNreOdpZFE9f9VnP z45T9BqsMwlj3NnIbe4ht 07rIRar3Y9jTO6COdlROM taG1jOKfsElL5 VXTuEuQjmQ69qBLaYDxjF e8xyScbjVfoIL8qZMYnrx rbMFGxqG8wNSXniJTpfTn gNL6hIZObdtut u880CpKtMKY9TSCoaXMcR 3StoU8aYvYmTBEaLREfP4 NxaUFoPVrcY543FKgxEyF 5WQNbbgFwB8Cs KQTitFjaEcQ9n2Y1Vp5Qd 1DwcsnrCBL4URmlVHU6Vs P2DjNrHqF8T0LxNyn5MOY rpUkqQU7jC7Jl GCZyaismubcgyAP7FZFuC FFiqQ18sNNbZXygHr8nr7 Y0t316BYPtUOKcsP82Fq0 udDogMTBwdCBU zN5njnfev9fprhztUfBpR RVhHUu4LWl0KDNidFnxQz YdNCK2OcH7HKZ4wSNwvR1 wxCpqjmwneY4m Oyc+N40udQ3mXRJ8DRK8f kmxTAOfzoFqET48AO81C8 RyPjwvdGFibGU+PGRpdiB ldMgtHE2oCzIn s7bkl9MsOGduC0GzOVQmK PifNlm4XOFcKHR7dNQ7oU 7vXRRfQNrwx8M1xMJ0R5D brmRbsc0vb7ye EEYzXPprK62lbYAay2N3Q NOrxNJ2YCRnyZsdAiSyoM 93Oyc+ZTQqyDxfc4GgHma qe2twc1ufsBp1 SzZrDFXtrjJbjYpsNCG2k 5RwWr51W45tGAvxYIQyMH JwEVBrBSGhhLllyc4dqC7 wIi8+PGNvbCB3 eLS7lW1jQATnFxS1QDonW 601ZbHdnRTjHovqm9bhb7 dqyVu0MtMdCNFocfUkaHg kLFZ5y3ToSt32 I16hLMnfSHPkVCGmRNJcJ SOuoTomae6dwB5yBn2+PC 4lj2dkof83uO01nCV+PHR hDLT8vUiuUPht RGTnfE2mNNkgLrY6RAKpG bFfqB87cRMxBAylQt5noF nmkRrePU4tTIIqxgvvd06 3YrTyc4yiZYSp wAXrRYchGND2H57ip4D4S OGdSGBfLUE2vOO9pO6kwO lnbjogbGVmdDsgdmVydGl vDAtrDUzjK454 IHRvcDsnPlBhdGllbnQgT dGqXDw3X0XgIfr4SZCwdJ bySE9qeWUcPEfuQn7ifUd vdEuhZE7yMBDz eusaz282JuFxc5kzTPXia SLjZBhrPEC3R46pl3O2FF ZbZZFnHTW6gNP1zS6knCv nbjogbGVmdDsg tsMxhOvzEOijQLlgW493L HRvcDsnPkJpcnRoIERhdG W8FS48TX74jZZbe7G3yJF 8Q0HdDZEfhjya djnpaYF6VDOcZQWndI19Q o9ooAptJi1mGWSoTAP6QA NoqQUlG3ZarB6gEuNeVCC pTCVvX3AvjVMu OCojB518UKvyLgW6RTNpt sUzQ3RzLTGbvCyyYcM3l1 R4Ml8SK9S7FB58UY54eLM cl0N5bTT3L6Ec ECRiqzkooybuyWG0LCHvO ILuoZ37Iz1eqQgtEn3bTP MrDUA4PGTziLYvC0JjeO1 yOiAjMDAwMDAw F9FwxIXjSDfoF154TPruH yD0KTXpxkOdB3GhVOLpaF ylFhD6p9M1Bi3TLLm2QJ0 4PJ21kSBib9O9 vGV7U9YmPBLaiwdsiaptx NQ8SMSgHAOzyE03Rn8phB ldPq6xGVReKCG5WZGzvJJ sL0IroT9eShIh JECySIXvB0OwgOLeALvcS 968QIxeGgA4CEMzxrBhG7 AsPVAaoYanZrG4a8S5Jy3 RGGGqTN63SPM9 fWL1TY00ZS05R0XkBkpny GFibGU+PHRhYmxlIHdpZH RoPScxMDAlJyBzdHlsZT0 wGy2vZABoAJWy rHgecXKcTrUwk6xhVAGwB RgsBS5wfEqxM7PogGI2SD Opk6a7Hi57J22hR7HehDP +FFEoiPC1jYO8 wO4eFzBpYvO5SHnyJ734K yGtnJUgVcfwj5efk8yeqC o0QfK9PDWwjoFneHkhPXD 2n8VhOa03B39g IHdpZHRoPSIxNSUiIHZhb Bwvxk4cdY4xQr7+PGNvbC E6hLU3tJ0nXjYoUgY6AGe pH554ZxPrbAHh Vwtpi3kak2zvdQh8HvGwR AZwxzGxpUabVTF1m0EdUe 44K2CsuQizl7NtUco7zj6 7yIRyy1Q5uTF2 E7LpQNImkfpicGWxuUrnP D6cXCDvbawhGJZtwR7iHR YrI9r8TfAtClP7PIfgP5X mxgN9QUWrjHLy AFoqFGD6Q22mo6X5SKZiK VZnNQV7kLK1dQ4lyUzbfw ogbGVmdDsgdmVydGljYWw nALhzG174JIJw fPveNWGzoA1cELOraINbl EwgZP4kDBWfeaikZpOJYo nBYm9gEQMJXiJCR1ElHDm vdGQ+PHRkIHN0 rZeiBJvfCTKvvM0zSJCiP 7c1AuJrKzY5ZFimV4KlHC YpjgkcGq94nT1jOaViEsT 7ZXghG5FucxB1 WKEzvTDnUHucMCE3I77zk 0D2WVRsBLHlAOR5lVR3vI 1hbGlnbjogbGVmdDsgdmV ydGljYWwtYWxp Z773JRKvoLvsFyJ2ArEcV tU4UCK5U3CzNrb5WFKbjI vwHR5hxGXtXSqiFm1kdHh ljFbhHF9pSFNb qpmjPHAnqM5pVETnoICmr QxwFV5vSEFuxijmm711Gg FxNUW7LDJbhHWfU1GikB7 yOiAjMDAwMDAw C8UzrBFsALkoE654YOhaK rX7TQLbooWmW8GkIZRswM wwOvY9z1T4Ok6mQWXJREJ yczwvdGQ+PHRk IOC5lZwrBHshYLBokH6yE VDyH2g4MuKbQzF7JSouL2 UlALBxjawjUs25lK0hFwJ hJbS3OGxuD2Ty naN6ZMDeeQCyHFkkYSN5J 38mj3L1DTKrMPZwATM9pR P4rK9qcVxufwlkxJYdpBf gdmVydGljYWwt UJhvG320ZRVfsMtsCxPsz WFsZTwvdGQ+JXTwBSM3hH plFLkdOCBpgH3bQZNxD8b 7RuVuZoA1HYff I5KvDEScldjgCd72hI0sF eErPyZ4XQysH7HjccZ2TR GthNZhTBliBUQ1C97co4I 8GXHxMRKbRJY1 wDG2jN1zlMphxidqnRRdk DsgdmVydGljYWwtYWxpZ2 56IYLahYjyYv40zGTgpIw gfhV5O4NzYfxk dHI+PV87DWGyLN56zYMhz ALpw5kepCt7UaTuBJAoAA E4hMrhRTnnn8RvRCXxX55 maAYvw8I2ZOGg wAdswJNaTxLchEK8nP4oF Llpeabsd7jmplnwXtjsr7 fbwk11uN35H25jXArmHPG oPSIzMCUiIHZh cKojte5nyP3kGr9+PGNvb RO6kNQ8nB9qIzXqSqF6ZQ rrK283MyHnqLIfFfxpx8c xx0tykHf4OcRv MYQsrvUwsHztXNA2p2NgV b45X44yDZitWPVtFGGsFQ AnLHUgyUdkse9qbC4qCz0 +IO7vg2noht86 eM72qVQ+VONnQMW6vFssX AgcUFStyR6yVTpcGaY6GR FdIwHbpW07oHDcFJbjIg0 ehYdtqTtkZB4o XWIzfqjmc972JyRna4pwK ADetKKuWJzqWAZ7P36tr9 B8YEJrXSUkOPS2jMB8jV1 hbGlnbjogbGVm dDsgdmVydGljYWwtYWxpZ 871PTVqqObhJjOnfTKoC0 netiGNRS5tKrcpqXM+PHR gFSF7rNxfMEzh TXCthW6jJQShU5i0KfLnV pH4COosI9KrnhF5EQLyjL EmWVMfvAIOnA2wpiczw2p vcjogIzAwMDAw EJa0WLf4UOZenXkfFjBbH RB8KoC2FDY0kIJazX0baX bavcstpN3iDet+RklOOjw vdGQ+PHRkIHN0 mQdzASaqBFGhcK7sIKEvN 0f2QfKsBrS5IRbxN4Lepk U7OENjnVVbXKSkgLYNrA2 shkoxn3lnopsm FmCeOYMcYFc7AAc4STGyu EctQeYhLFN6YbN5FMP8bD LyeM4khSoiazpkuP1wSzs +TVJOOjwvdGQ+ LJKrYPB8lOrdELysEZNwf Y6pXDJaU6n4IhItRkX8HX efO0BgoiU5BRSksVXpNXN hrYYOoQ9jrnos g9fcizpzOuLsMRDrFGb7S Ct5AQEtpDqsNtWlPWW6Br N5LPR2oPSmxZ8slNhhktl acM3eCyl+UGF5 CUQ2DK21QD17C7PfVdzju GFibGU+PHRhYmxlIHdpZH RoPScxMDAlJyBzdHlsZT0 iVb2jMWAyDBKz bGxh (more content not included)... [facility] Coding Summary.on 08-15-2020 Coding Summary. CD:[id number] G h0bWw+PGhlYWQ+LC7DMDI xC80faUTxnK0CG5hQGI4U SBENTFJOSZ8NZM4qpBA2V JnrM3ZglnDo KwobiTDfIS18MXn3JXM7d OmfEWydzN4nzSQvH5l8Lc QnUZ54aX30UVnqCJBfFoM 3LjZpbjsgbWFy O8imSyHvpAMpHpi+PHRhY mxlIHdpZHRoPScxMDAlJy NujWxwUP8lAn3xLMWkQHT vbGxhcHNlOiBj d7wsDYJzJMysRF3wqAzjL 0HrqQA6KHGva1a5Ew55pN I+CAOgFWR9iVbxJAxfk27 8AtAyb0sdCJR9 iNRfGCzcZJF5G41vi4F2T YQkTIGqPRB6kAN2bI9mmQ ojvhbkE3SclRCrZlD5KOQ 0nHRxqY9nrNgk cdmwyM6gGxo+N68OHZ4SM FNVWU6IHjn5V9OmQwirhL I+EH42FERhWH58cNZacCQ fl4nvkCm2LiEs OJZeXNQ6aIoaFGgot4WsV XVqA68zyVLnq5F8XGLhdP lanAMkGcHebER7oT6wNPf pesmzc6jhraoz Sowlw1hvrc16kZ79Q87cI PowRZMgQLQ9PKHzGOSymM cuwb3ydE5kNh5+KSnon1n bp8jgoYb9MsVc SCXnpvBcgHntVHL3g4PxF z51G7KzhPixf9DgTjk5qp 49oEWww7G2vQP3RIvbAXD ugV9wMFroGbI1 FFKcGsFapY42pXOxEHiuN w1ipAjnjBzkWP9zYXYusw vhLKQluE2xSHBgiRLhnLn iVF1hEAKhkrqw o133EnMiODE0ASNhqAIxN 3PktR5zSjYqBQYxMKJzJ5 VrxSLqAXhuS890SYbbGaX 5TMIlxfZcT0Sw EHNwdAsoXhS1k3Y4Pd5Qk 2RlprpfOEO0XGmmSNY8Is T6McMiIoZ5G5OaDne6KML ypIaaAF0sD5Tz URQntduizmkvoDQ6ETWpQ ULcfD42uBTlWOybRl3kj1 G5s754RPAlPTDbkX42Ln4 udDogMTBwdCBU nJ3uxsbkh9nfwyyvSaKhO CAiJQc9YUo3TCEvcMzuNi YqAJX4KeN3PZJ5tXBsaU0 vgTgrlookbV6a Oyc+B67qfQ6jMWH4SGG8l xoyFRBbzxUeUU20EF68A0 RyPjwvdGFibGU+PGRpdiB rhFleCH8wLrWo k0hol0DgZNnxF6BdNFJiW EdlTsa0CRRxNBH1iNL2cN 0sYHFvMSvtq5H4wOY0X6K jpvKbfu5zk0xp HHQpAUehH93xyZZew4N9S YTppQZ3DEJymZxlApEwlY 93Oyc+HKPufYumw7HwAcu bj2dlc4livUa9 FnGqIBByejDllDnhDFX7d 8FjHd26Y07dUWjdJVPpHT WcUPPiNUJjrQqevd1eqK8 wIi8+PGNvbCB3 kGK3xJ2pYMAjUcD0HAtvN 349ZxFhxWOwBqbgb7tew9 pmlQf8DuPcMQPqapCaoAr rHOT8y4JrRu34 H71fOLudYKDkVMSnCHJmV PSfaNzrmd5srY7sUq5+PC 2sn9yqrc63yF29zDG+PHR fZQO3tWwvEGhr CAVfzJ5cQTvnMaG6KCMtB vPedO11qHSaCBodHm1zwB mygWyzJO4oYRUvlxhhg83 3EhLpn2ldEYDe yEItMPswYNB2Z43ba5M1R OMnABBrANG4uPQ4zG4atD lnbjogbGVmdDsgdmVydGl fMOanCDnfT780 IHRvcDsnPlBhdGllbnQgT zArNRc1L2NnAtb7LJPmxG veYV8euAIeMGztAz1otEc wjJquQR8kPSIz gyjzy742SmVel4zuIYDkn JAhWNivZKE1O25gb8S2EF DlTSSxXEO2sAJ0xH5peFy nbjogbGVmdDsg zbZqhQocMWtjVQffP346Z HRvcDsnPkJpcnRoIERhdG N7OD40AM08qTDzd3Q2oXA 1W0GnMZZitgli zyjmiYX7KCAlUDTyuM14P q7daCwkYi7kEITzTNK7FG AfxKEdN7RmpU7cBlRfHOU oZFFiE3KrjJOk YIafD331LAslTdP1ZPEwi mAoR7NmZFDvmRqqAsD8d3 W4Nf5NP9R2GP37HZ21kDK es9N2nZL0T1En TSXemfqhemizxJO1ILVaW HWztO89Dz1keQakDq3cYN KoQJU7DQPqhCAcI1KutJ0 yOiAjMDAwMDAw A9DtyDDpBNaoX482QHbtP tT6KWNhdpRjU9TeTQUbnU tlUfQ9s7S9Pd9SZDz2ZX4 9CD50qCKiw7B9 lDU2O8OjHGXazfpkfgtzq TI9MGPqTCAncK06By0xlI zdSz3nIXGwSJU2RUCccIK qE1WwrL9sMbPk XBMnBSKvX7CdvUOnRUwoE 725TEruCwU9KKIkohIiH1 NyUTYchQomUzM9t4F6Ee0 SDQHdIG28OJD2 zEN5VE90PJ18Y2EwYebki GFibGU+PHRhYmxlIHdpZH RoPScxMDAlJyBzdHlsZT0 oJx9gGCLmDOFz wMkgqYXmStQve7evGWHfF ZrnUV1bgWmiE6OtbWQ9XN Rtn8n9Ve64S71lJ5NmlDA +KNBxdPN3xHC2 hL5yZyBeNvO3QTdcX906A kNdwSXhQyast6ipv9mykZ n4KkO9YVOqdiHyeAtaJSM 6g0SzEd71S75x IHdpZHRoPSIxNSUiIHZhb Lgoqo3dpA8iKv6+PGNvbC X9eJK7oU7aPcMqAkG5XDh dQ924OlQcsURm Nzlha1wwf4povTv8ZkBmO TDbgqJklApyBQA2r0LmVc 20M5MsdCihq7ShClt9mf8 1mAXyp7V2zNG4 M9PxMEPuzsgaqAOlbAkzF D5tIXFsaaioKFIwyS9gNI ZaL4r1OdKrGoR4HYcfE2B jifJ9DUHqoCLb AUwiCQN8L89cc4D7BLIiI PVtVHT7wML6cV4ygBjcqp ogbGVmdDsgdmVydGljYWw lCZchJ767NNXr lMhqYRUttV4dGXYqiEEvu HskCB2eSRBjznvkDwHDJw vPQw5oJJTOYaTLC0MoAPn vdGQ+PHRkIHN0 gSvvILyzOFZpaP1vMRPtY 9h5PiXjDnD6GKmlX1IiGF QktpoaMz99iD1uBjQnQgT 0GMyuG2HwgrE6 MSPuyEZgFPuhOZP7T55ja 3I1PFXoTYYeCOM4sWU0xA 1hbGlnbjogbGVmdDsgdmV ydGljYWwtYWxp N619DMRkvSyxMkU8GkUlX qX4OTX6S2PqBim3HGShbP wyVG5zzOFmRZidIw9qiCc jgZqmYF5kHSUm bhgzHUTkxF3sCRObwKAko LfyTF6aZJFesdlyb475Sr KbUCK9HIJtoEIaY2IzhY6 yOiAjMDAwMDAw W7SytVZhGKyaL887DBngT cP8XUPwbpAgK1GlHXNieX kbYrN9b8S9Eg3zFBQEACJ yczwvdGQ+PHRk TFR1cSpaHZqzJZNhoF6hV QKmS4e6WaUoUxE0ZCyqA5 KhKFFlkacxCk06sK1eUtX kEfP2YOnoY5Jr wbX9ZTKceGFyXKaeRZP0F 40kn6K0KJVmBVZxXQI6hA B5rN3wnHlpdmbztNIaoWj gdmVydGljYWwt FBrmI772JTScpTzaWsFut WFsZTwvdGQ+EZSqVIL3sP kgZOpoDBHfdW2hZGFlV4n 3XmQbUlW1YLth X8CfLRZwulsgDi57xD2lK hKrUdA6LZnlU3NuinG7AA HxgXMmALtlKVT8W26mn4E 4LHYtGVExFDX1 sYW0mM3saAegebeyfZQve DsgdmVydGljYWwtYWxpZ2 78VSImbWqaMdpzcDX6vIF udDwvdGQ+PC90 of68F7LfZhfdDix8KCGcH DM7jTQ0zR5mSKGoBOlok4 H0yIX4Q8ApqbZjsn4tw1t hIPJdPMbwA61z lHYdm8O2MRWtgQQ0HEYft LvfTtEqqN44Thr+PGNvbG gnw6QwHddot9ziw8dvdQl 9IjMwJSIgdmFs qQlzQXT1v6DxDk77X64iA HdpZHRoPSIzMCUiIHZhbG jvbl0ghF3kOt3+PGNvbCB 3pYX4bA7uWvLv NpB2TCtuK808PvUwhZNfG iejm9izx2mxvHd8IxIeVI BgmkRoyPymOCF1p6YqMb2 0Q9WngAwll8Cu Jru2ax28hHRba6L2gYA4W 3BhZGRpbmctbGVmdDogMC 5wMLHvxscoYUFznZ7gIHW qQ3w7XvDaHrF8 GPhqI8EvcqJ4DBRovHBzF EAkaXLChF0sfhbyy5ersj mcOhLoFJCyKOs7BJl2TQJ saWduOiBsZWZ0 TlW3XFD0bEFhoG5stAurb qpsxS5wFuf+LDm4y3dsaZ UuGX1hsVK0II12UD94zHL vb3H7kFC3C4Az VHYfrhznkvqxvHD4SOMeI KBjcY07Nc9nbDiyAe6tEI PqMAG8UPCmpSZzY7EguF1 yOiAjMDAwMDAw N0QkqMIoTGdeQ948TNrfO jR4BLDbokFrR1HvPNQoxP kmMcS5n5F1Ff2XES67YT6 9MY38aGEmh0I8 uSP8A9FpZZOiowjmqqgfx TC7XCUrGVJqlO24Vd2sdQ goRn1kRNBiBVU3UIHbpVS wD7TieT4gZiYh CPIuZERgB7MqhJHmBOfsT 897YSidIsN4HAZyagHqT4 MxZHRqaJvgZcT1i0D0Ow5 QRp20QE47XB37 nZFut8X1dIX3H5YxBRBhn wurxwozvRT5YPEoNAOilR 30Lt0jnNqkKi0cCOSwBFR 9MNExjUNeM5Ma eF8xPcUgSNLhKTNgR8Hba SCaJIazY461NKijIvJ8UR QbevOdK4InPAKzcUkwToL 0b2K0Ll2ETXwx mth5W1PaDgptsPL+PC90Y FWsQC88mEGucDJhh2nicN k1EfLvMBSwBAV2oGfzLEt au5QjZDVcF67t bGFw (more content not included)... Normal [facility] Consent for Treatmenton 07-20 Consent for Treatment [id number]#1 .00CD:127 Normal [facility] General Message Officeon General Message Office --- --- --- --- - -- --- --- --- --- From: [place], [employer] To: MYA MYLES Sent: 08/06/20 02:30:52 AM EDT Subject: Discharge Summary Ready to View A summary regarding your recent visit is available in the Documents section of your health record. Normal [facility] CBC w/Indiceson 08-05-2020 Erythrocyte distribution width (RBC) [Ratio] 15.1 % High 10.9-14.2 [facility] Comment on above: Performed By: #### 2 [id number], [id number], [id number] #### [facility] [address] [place] [address] Hematocrit (Bld) [Volume fraction] 26.0 % Low 34.0-46.0 [facility] Comment on above: Performed By: #### 2 870097, 6922389, [id number] #### [facility] [address] [place] [address] Hemoglobin (Bld) [Mass/Vol] 8.6 g/dL Low 12.0-16.0 [facility] Comment on above: Performed By: #### 2 204189, 7764127, [id number] #### [facility] [address] [place] [address] MCH (RBC) [Entitic mass] 26.3 pg Low 27.0-34.0 [facility] Comment on above: Performed By: #### 2 774898, 6726753, [id number] #### [facility] [address] [place] [address] MCHC (RBC) [Mass/Vol] 32.9 g/dL Normal 31.4-36.0 [facility] Comment on above: Performed By: #### 2 494897, 6190795, [id number] #### [facility] [address] [place] [address] MCV (RBC) [Entitic vol] 79.7 fL Low 80.0-100.0 [facility] Comment on above: Performed By: #### 2 084568, 7493155, [id number] #### [facility] [address] [place] [address] Platelet mean volume (Bld) [Entitic vol] 8.0 fL Normal 6.4-10.8 [facility] Comment on above: Performed By: #### 2 886321, 4516240, [id number] #### [facility] [address] [place] [address] Platelets (Bld) [#/Vol] 259.0 E9/L Normal 150.0-500.0 [facility] Comment on above: Performed By: #### 2 298272, 8443655, [id number] #### [facility] [address] [place] [address] RBC (Bld) [#/Vol] 3.3 E12/L Low 4.3-5.9 [facility] Comment on above: Performed By: #### 2 700637, 1832003, [id number] #### [facility] [address] [place] [address] WBC corrected for nucl RBC Auto (Bld) [#/Vol] 10.2 E9/L Normal 4.0-11.0 [facility] Comment on above: Performed By: #### 2 096652, 5741465, [id number] #### [facility] [address] [place] [address] Discharge Instructionson Discharge Instructions [id number]# 1.00CD:127 Normal [facility] Inpatient Clinical Summaryon 08-05-2020 Inpatient Clinical Summary [address] [address] Clinical Summary Person Information Name: MYA MYLES [place] Age: 30 Years : 1990 Sex: Female PCP: Chao Blackwell III, DO Marital Status: Single Race: White Ethnicity: Non- or Language: Tongan Visit Id: Visit Reason: Speciality: Acuity: 1 PP Enc Type: Inpatient Med Service: Obstetrics Arrival: 08/04/2020 06:59:23 Discharge: 08/05/2020 17:20:00 Dispo Type: Home (Routine DC) Address: [address] [place] [address] [address] [id number] Provider Notes: Diagnosis: Depression during ; Obesity [...] Follow up: With: Address: When: Sukhdeep Schaffer [address] [place] [id number] Business (1) Within 6 weeks Comments: Call Dr if fever>100.5 F, heavy bleeding Call for any problems. Nothing in the vagina for 6 weeks Type Location Start Finish [facility] 09/15/2020 9:00 AM 09/15/2020 9:15 AM Confirmed Patient Education Information: ibuprofen 600 mg Tab Normal [facility] Inpatient Patient Summaryon 08-05-2020 Inpatient Patient Summary [address] [address] Patient Discharge Instructions PERSON INFORMATION Name: MYA [...] None Follow up: With: Address: When: Sukhdeep Schaffer [address] [place] [address], [facility] [address], [place] [address] Business (1) Within 6 weeks Comments: Call Dr if fever>100.5 F, heavy bleeding Call for any problems. Nothing in the vagina for 6 weeks In the event that this physician does not participate in your insurance network, please consult with your insurance company to find a nearby participating provider. Type Location Start [facility] 09/15/2020 9:00 AM 09/15/2020 9:15 AM Confirmed Comment: IJUSTINO VANESSA L, have received the attached patient education materials/instruction s and have verbalized understanding. Patient Signature Date Clinican/Nurse Signature Date MEDICATION LIST New Medications [id number], [address], [place] [id number], [phone] ibuprofen (ibuprofen 600 mg Tab) 1 Tablets By Mouth every 6 hours. Refills: 0. Last Dose: ____Next Dose: ____ Medications to Continue with No Changes Other Medications multivitamin, ( Multivitamins) 1 Tablets By Mouth every day. Last Dose: ____Next Dose: ____ Pharmacy Information: [facility] PATIENT EDUCATION INFORMATION Instructions: Medication Leaflets: ibuprofen [...] younger th (more content not included)... Normal [facility] ABO/Rhon 08-04-2020 ABO/Rh Positive Invalid Interpretation Code [facility] Comment on above: Performed By: #### 1 [id number], [id number], 17724389, [id number] ####[facility] [address] [place] [address] ABO/Rh History Checkon 08-04 ABO/Rh History Check Verified Hx Blood Type Normal [facility] Comment on above: Performed By: #### 1 [id number], [id number], [id number], [id number] ####[facility] [address] [place] [address] ABSCon 08-04-2020 ABSC Gel Interp Negative Normal [facility] Comment on above: Performed By: #### 1 [id number], [id number], [id number], [id number] ####[facility] [address] [place] [address] Blood Bank ID#on 08-04-2020 BBID# [id number] Invalid Interpretation Code [facility] Comment on above: Performed By: #### 1 [id number], [id number], [id number], [id number] ####[facility] [address] [place] [address] CBC w/Indiceson 08-04-2020 Erythrocyte distribution width (RBC) [Ratio] 14.8 % High 10.9-14.2 [facility] Comment on above: Performed By: #### 2 602741 #### [facility] [address] [place] [address] Hematocrit (Bld) [Volume fraction] 31.7 % Low 34.0-46.0 [facility] Comment on above: Performed By: #### 2 899020 #### [facility] [address] [place] [address] Hemoglobin (Bld) [Mass/Vol] 10.2 g/dL Low 12.0-16.0 [facility] Comment on above: Performed By: #### 2 329922 #### [facility] [address] [place] [address] MCH (RBC) [Entitic mass] 25.6 pg Low 27.0-34.0 [facility] Comment on above: Performed By: #### 2 857551 #### [facility] [address] [place] [address] MCHC (RBC) [Mass/Vol] 32.1 g/dL Normal 31.4-36.0 [facility] Comment on above: Performed By: #### 2 737094 #### [facility] [address] [place] [address] MCV (RBC) [Entitic vol] 79.7 fL Low 80.0-100.0 [facility] Comment on above: Performed By: #### 2 282011 #### [facility] [address] [place] [address] Platelet mean volume (Bld) [Entitic vol] 8.3 fL Normal 6.4-10.8 [facility] Comment on above: Performed By: #### 2 431417 #### [facility] [address] [place] [address] Platelets (Bld) [#/Vol] 341.0 E9/L Normal 150.0-500.0 [facility] Comment on above: Performed By: #### 2 189221 #### [facility] [address] [place] [address] RBC (Bld) [#/Vol] 4.0 E12/L Low 4.3-5.9 [facility] Comment on above: Performed By: #### 2 027050 #### [facility] [address] [place] [address] WBC corrected for nucl RBC Auto (Bld) [#/Vol] 8.2 E9/L Normal 4.0-11.0 [facility] Comment on above: Performed By: #### 2 845302 #### [facility] [address] [place] [address] Consent for Procedure/Surger yon 08-04-2020 Consent for Procedure/Surgery [id number]# 1.00CD:127 Normal [facility] Consent for Procedure/Surgery [id number]# 1.00CD:127 Normal [facility] Consent for Procedure/Surgery [id number]# 1.00CD:127 Normal [facility] Consent for Treatmenton 07-19 Consent for Treatment [id number] [id number]# 1.00CD:127 Normal [facility] Consent for Treatment [id number] [id number]# 1.00CD:127 Normal [facility] Delivery Summaryon Delivery Summary Patient: MYA MYLES [...] Stable. Maternal condition: Stable. Funmilayo Escobedo MD [facility] Comment on above: Result Comment: Elec tronically Signed By: Funmilayo ESCOBEDO MD\.br\Date and Time Signed: 08/04/20 15:29 EDT Discharge Instructionson Discharge Instructions [id number] 1060 [id number]# 1.00CD:127 Normal [facility] Help Me Grow Referralon 07-19 Help Me Grow Referral [id number]# 1.00CD:127 [facility] Progress Note-Physicianon Progress Note-Physician Patient: MYA MYLES Age: 30 years Sex: Female : 1990 Associated Diagnoses: None Author: Kevin Haley Jr., DO Postoperative Information Post Operative Note: Day 2. Anesthetic utilized: Regional: Epidural. Health Status Allergies: Allergic Reactions (Selected) No Known Allergies Problem list: All Problems labor / Patient Care / Confirmed Ovarian cyst / SNOMED CT 836787380 / Confirmed Attention deficit hyperactivity disorder / SNOMED CT 8234988534 / Confirmed Obesity / ICD-9-CM 278.00 / Possible Obesity complicating , third trimester / SNOMED CT 0588290788 / Confirmed Depression during / SNOMED CT 8266944099 / Confirmed Insomnia / SNOMED CT 267849819 / Confirmed / SNOMED CT 557531448 / Confirmed Supervision of high risk in third trimester / SNOMED CT 01907368 / Confirmed Chronic fatigue syndrome / SNOMED CT 31306071 / Confirmed Resolved: / SNOMED CT 716089600 Resolved: / SNOMED CT 503867323 Canceled: Obesity complicating , first trimester / SNOMED CT 6094092782 Canceled: Obesity complicating , second trimester / SNOMED CT 5881283325 Canceled: Supervision of high risk in first trimester / SNOMED CT 68807492 Canceled: Supervision of high risk in second trimester / SNOMED CT 69098433 Physical Examination General: Alert and oriented, No acute distress. Neurologic: Normal sensory, Normal motor function, No focal deficits. Review / Management Result Review Condition: Stable. Assessment Anesthetic outcome No post-epidural complications noted.. Plan Transfer/ Discharge: Condition stable. Normal [facility] Comment on above: Result Comment: [...] / Confirmed Ovarian cyst / SNOMED CT 059492896 / Confirmed Attention deficit hyperactivity disorder / SNOMED CT 8073571410 / Confirmed Obesity / ICD-9-CM 278.00 / Possible Obesity complicating , third trimester / SNOMED CT 6454770671 / Confirmed Depression during / SNOMED CT 6347760503 / Confirmed Insomnia / SNOMED CT 479601758 / Confirmed / SNOMED CT 539991460 / Confirmed Supervision of high risk in third trimester / SNOMED CT 62984514 / Confirmed Chronic fatigue syndrome / SNOMED CT 36629897 / Confirmed Resolved: / SNOMED CT 339018722 Resolved: / SNOMED CT 349379678 Canceled: Obesity complicating , first trimester / SNOMED CT 9617469622 Canceled: Obesity complicating , second trimester / SNOMED CT 9279142597 Canceled: Supervision of high risk in first trimester / SNOMED CT 95733699 Canceled: Supervision of high risk in second trimester / SNOMED CT 40762432 Review of Systems Respiratory: Negative. Cardiovascular: Negative. [...] injected subcutaneously), approach (midline), needle (17 ga touhy) (placed via loss of resistance technique, At [...] The PCEA was started at 0942. Normal [facility] Comment on above: Result Comment: Elec tronically Signed By: Kevin Haley Jr., DO\.br\Date and Time Signed: 08/04/20 10:50 EDT UA With Cult Reflexon 2020 Bilirubin Ql (U) Negative Normal Negative [facility] Comment on above: Order Comment: Urina ry Catheter Insertion triggered Urinalysis With Culture Reflex order by discern. Performed By: #### 2 961506, 0797454, [id number] #### [facility] [address] [place] [address] Clarity (U) CLEAR Normal Clear [facility] Comment on above: Order Comment: Urina ry Catheter Insertion triggered Urinalysis With Culture Reflex order by discern. Performed By: #### 2 741503, 3043305, [id number] #### [facility] [address] [place] [address] Color (U) YELLOW Normal Yellow [facility] Comment on above: Order Comment: Urina ry Catheter Insertion triggered Urinalysis With Culture Reflex order by discern. Performed By: #### 2 796173, 5610307, [id number] #### [facility] [address] [place] [address] Crystals LM Ql (Urine sed) Present Normal [facility] Comment on above: Order Comment: Urina ry Catheter Insertion triggered Urinalysis With Culture Reflex order by discern. Performed By: #### 2 693229, 5507464, [id number] #### [facility] [address] [place] [address] Epithelial cells.squamous LM.HPF (Urine sed) [#/Area] 0-2 Normal 0-2 [facility] Comment on above: Order Comment: Urina ry Catheter Insertion triggered Urinalysis With Culture Reflex order by discern. Performed By: #### 2 599227, 9955978, [id number] #### [facility] [address] [place] [address] Glucose Test strip (U) [Mass/Vol] Negative Normal Negative [facility] Comment on above: Order Comment: Urina ry Catheter Insertion triggered Urinalysis With Culture Reflex order by discern. Performed By: #### 2 025659, 8128311, [id number] #### [facility] [address] [place] [address] Hemoglobin Ql (U) TRACE Abnormal Negative [facility] Comment on above: Order Comment: Urina ry Catheter Insertion triggered Urinalysis With Culture Reflex order by discern. Performed By: #### 2 667030, 1644246, [id number] #### [facility] [address] [place] [address] Ketones (U) [Mass/Vol] Negative Normal Negative [facility] Comment on above: Order Comment: Urina ry Catheter Insertion triggered Urinalysis With Culture Reflex order by discern. Performed By: #### 2 983140, 3061499, [id number] #### [facility] [address] [place] [address] Wisner.plasma/Wisner.R BC (Bld) [Mass ratio] 0-3 Normal 0-3 [facility] Comment on above: Order Comment: Urina ry Catheter Insertion triggered Urinalysis With Culture Reflex order by discern. Performed By: #### 2 952496, 8260362, [id number] #### [facility] [address] [place] [address] Mucus Ql (Urine sed) TRACE Normal [facility] Comment on above: Order Comment: Urina ry Catheter Insertion triggered Urinalysis With Culture Reflex order by discern. Performed By: #### 2 606522, 3082185, [id number] #### [facility] [address] [place] [address] Nitrite Ql (U) Negative Normal Negative [facility] Comment on above: Order Comment: Urina ry Catheter Insertion triggered Urinalysis With Culture Reflex order by discern. Performed By: #### 2 489078, 5694573, [id number] #### [facility] [address] [place] [address] pH (U) 6.0 [pH] Invalid Interpretation Code 5.0-9.0 [facility] Comment on above: Order Comment: Urina ry Catheter Insertion triggered Urinalysis With Culture Reflex order by discern. Performed By: #### 2 782504, 3816668, [id number] #### [facility] [address] [place] [address] Protein (U) [Mass/Vol] Negative Normal Negative Fi [facility] Comment on above: Order Comment: Urina ry Catheter Insertion triggered Urinalysis With Culture Reflex order by discern. Performed By: #### 2 806668, 6403767, [id number] #### [facility] [address] [place] [address] Specific gravity (U) [Rel density] 1.015 Invalid Interpretation Code 1.005-1.030 [facility] Comment on above: Order Comment: Urina ry Catheter Insertion triggered Urinalysis With Culture Reflex order by discern. Performed By: #### 2 339852, 9614165, [id number] #### [facility] [address] [place] [address] Type of Urine collection method Catheter Normal [facility] Comment on above: Order Comment: Urina ry Catheter Insertion triggered Urinalysis With Culture Reflex order by discern. Performed By: #### 2 990506, 8276321, [id number] #### [facility] [address] [place] [address] Urobilinogen Qn (U) 0.2 {Henny'U}/dL Normal 0.0-1.0 [facility] Comment on above: Order Comment: Urina ry Catheter Insertion triggered Urinalysis With Culture Reflex order by discern. Performed By: #### 2 314906, 1847199, [id number] #### [facility] [address] [place] [address] WBC Auto Ql (U) Negative Normal Negative [facility] Comment on above: Order Comment: Urina ry Catheter Insertion triggered Urinalysis With Culture Reflex order by discern. Performed By: #### 2 205950, 1044129, [id number] #### [facility] [address] [place] [address] WBC LM.HPF (Urine sed) [#/Area] 0-5 Normal 0-5 [facility] Comment on above: Order Comment: Urina ry Catheter Insertion triggered Urinalysis With Culture Reflex order by discern. Performed By: #### 2 188263, 5019179, [id number] #### [facility] [address] [place] [address] Vaccinationson 08-04-2020 Vaccinations [id number]# 1.00CD:127 Normal [facility] Coding Summary.on 08-03-2020 Coding Summary. CD:[id number] G h0bWw+PGhlYWQ+CV3ZOQD qE60lkIPfvK0BO9oXLO2N IDMBYIDEJO4QNF3cvDK8X ZbdB1ZnszHw VugamCQtEA15HBf1MXV5t WonPOxalN7ljRIbO2j1Up NvUL35oY21NBklKJKdReA 3LjZpbjsgbWFy T0xrKbEsrKGmSvu+PHRhY mxlIHdpZHRoPScxMDAlJy YolMquWJ3vLy6dVOHzWQU vbGxhcHNlOiBj t7mrQNAvXDysKN0vuBlaE 4IerIP2ALSrr4f8Ai77lE I+CISuVED9dAyeGWbmz77 5CcFsv8wkXJG0 zOYoNKtuMKQ5R17az9T0M FKqNKXsLDV1gNJ9wV4ubS oykqjrR5TnsHEnXwC0AQV 1tUKjfY8gyVdo pnpnvR8jIql+Q33GJJ8AZ MPQBU3SQzv4D4WjTuqgiT I+HO49EXEkMZ00fSWhjUJ ys0swfDl3IuPr YWRaYVA1cAcvFDmpv0AoL RLaO45sfJIuk8S9LCJalK mmjKNfRoYzcLQ7zH3eOUm igwygn1ptcsno Esanj7qwil84bU46V78mJ CisPLTiABY0JTDqVDPfbI wywk5lyU8gCk1+OWghp2b bm4hjwXz6JxSu WQCdkxAfySmqWQP8c9QgM i84J3YsdVpxu7YbRcw5ty 73nHMly2G3jJS1PWfuFMT ahQ7pCUykUzN3 IZAjZpWncO82sNPuAVufT b5tvVrfoHdbAT1wNQMwhh ruVGJrpY4pLJTnsDZoaCe xTK8dZLFeotht b899WoMiFXW8YLRolNAiS 1LumO1mGcQzCRTyEWEhM1 LnbEUnXHswO458RLvaLmH 3YDZyzpEoN6Dm ZGYyvXvcMbZ8z6N9Zi2Sd 6EiyhecQSB8EMycFZR1Ra Y5LjVyGbJ6V1AaYbw4JLL ckGeiQP8mF1Ko UNUnbdqtanqsbPW1PSDpO ZOzkX68zIRaVQpnEh3sj5 J8x684IWBdTTEfvE70Bl9 udDogMTBwdCBU mR0kjoxih3ejphuvOaUzK HZfXKg3FGy4TOTwkVzsSu QlTMW5DvW0VJM3oAXsdL1 lwHxdurimuT7i Oyc+K95weS4iIIV0YNU6c wjnMHCyejPaCE72VD78E3 RyPjwvdGFibGU+PGRpdiB leXfkZY1xEbDe p4llv7OaONzhI4LsUOMcX DwxAat1ISIuEWE5mZB6lH 7bXCPaPPjuf8F4iPZ2N4X cbkPowc3dj7ss JEFoJMuwK53kiXGvi4R7K YJffKY5JFGdfKywQqCxwF 93Oyc+IALrjQahf4FrZwo id4ero1kesRh3 IkGlOSKlluTtxAbtPDQ1j 4NnBn52D29qWCtgBNDwOW YoUBGoKTHbkGpptx5xmA5 wIi8+PGNvbCB3 cWB9nV2tMBIpDwJ5EJynK 354MzIuiPBfTwcyr6fiz0 uxjYr5EbHtMTBjvvXpbUh tRWB8p5ZuAj36 L49gENmoDMRxMDIyXGChM BLhsAwddz0wuK3xSa3+PC 6bm1xdyg57cY53nAC+PHR bVXM7bSdyTLkg ANYlqO5fINtqVtQ5LFSaC aFblJ52iYRcVHpnGt9vhH vmhBwuAC2xWYRfsstfc39 5VnCis9jkPPNc wUCuHHmyHKT3K16ab4J3N UIgQVYoULY5oGD4yD5zeS lnbjogbGVmdDsgdmVydGl hOZxoADxaW208 IHRvcDsnPlBhdGllbnQgT zSvHWy8X6SeWlk4VILlpH wtJR4dsGVpPOwlUo4kgZd doYviAT4qLUTm ssqft878HoTqx2rcNDGhg BFrHUjqCZV5C39hb9K6TR EwFKPiKAO3jNU7iG4doTo nbjogbGVmdDsg jbCwwGgqPCfhUNrpZ106E HRvcDsnPkJpcnRoIERhdG K1PN42BC56vFMiy5X9mNK 4T4UwURGraoig ngfgqQJ6JMBuOODfnS89E c1xfBsaGs4oSUFyKUZ3RT FxkKNpH9VsaN2qNgBqKHL hDUQrK6AohYVd VWgpR970HExfRrO3CTQac eInU7BwSGUalWqnHeU0s1 G7Mz0AA9S3BG20MK20xDA qn1L4qQN2D7Go NCVfchcljkhpcHM6UZYkF NFcvP26Tr6emZfnFf8zKG AkAPG7UTBmkOObC4IgvK5 yOiAjMDAwMDAw V5UxoUPwSIqxF036ZPwaE bN4BHZnimAbS4JpPCVdwF ygCvA7y6U7Bp5YEKo3IH4 4OP16yYOvx0W8 lBU6X2FpDDLtrhrdocuze OB8LQHsSYRwaG23Zc1xtI bsOs9dOTDvGSM7FUAnyXR vW9UgqE8uSlQl FIKtWGMiX7VcmTYwQLpeC 503MWkvSlS5TZZdgvVeI6 XzDVZcrGgnWtY7a5J0Ko9 AXINlDE09YKT3 sKH0NS42PN75L6QhThexp GFibGU+PHRhYmxlIHdpZH RoPScxMDAlJyBzdHlsZT0 mLj6rJGEfCPMr aNpmxVOdDrTmz4tiGTNbY XryEY4vnSidI2TgnKV6MP Fob9i4Ow69T76nR4DwsZT +RIDivBJ2uBN6 rB5nPuJfYcA3MJmzE289J gBrjMDfUghod8iic0tdkI g6DfT3KNVhbcVrtQnaOKN 2c8ViEk51Y51j IHdpZHRoPSIxNSUiIHZhb Fpnaf6bmK2xKx2+PGNvbC Z5lWP0gS3lYzXeGpV1VSj fG053IaVbsHCb Zjdjj0olp6uvqWn8CqIxR DPznhBbzWfjNHL4r9DcAe 27O0GusTcys3CiHbw3vp1 9jHCbb9W2lSN8 C4FdDBYkytmqbEJqrJvoS L2hVAVucjpqUTDkiE7pOW HwH0q3LsTwRrO1UGmqF5W wjvB1NDHjsXTi HLqqBMD0K66bn6N8HZViK WAlCOA2jXG3jK4vsGsbeh ogbGVmdDsgdmVydGljYWw bTNpmG806CXXm zAwnHLOqtC9dHKGrnCUsi DhkZT0gLHKfwlhjJyIPTl iIVg5kXXKXUxEAA9GiXBp vdGQ+PHRkIHN0 xTzcHOcmFTHydY7aAXLrL 7k4LfKoZaO6LDenT7AcRI WxqcklOf55tK7lVkYbEmX 3VNkfP3OkclV2 ODQwyPOdBPtqERL6X44tk 1U5WEVzLUBzTDW6aFM6zC 1hbGlnbjogbGVmdDsgdmV ydGljYWwtYWxp T022TRZguHznCmN5BrIpC qD7SXB2I1PhPmo1AKNkuS ncXR1xmRBnTHtfHp0xgBm anKbjMV0sVLXl jboyVXRprV5pCLEzeXYts YovEM2sXYJfxypjb995Fj ZiFYY6GSClgDUgL3OftI7 yOiAjMDAwMDAw P3FjfMDoESwjO263RIpyK iK1HVVskyRnF1RwSBPxtL usOuG7r9E9Bw4kJJEVILG yczwvdGQ+PHRk GEO6yBxtINmeJJXwwM2xN IVsP2t5TwEhNuW2MKjpC1 ImMKNwvaxuCr75nV0fNcZ tFjZ3DTvxZ8Sc hxL8FNSnmTMbQCyhCRP2S 06gd8I8DXAyILIdLIP9xI W3iY1lkMozknmgoBFpfSt gdmVydGljYWwt JOngK021PFHomVheHfEzj WFsZTwvdGQ+FAHeVCA6mN ekSKbyOKUkdV2hLPOcZ0i 7BmDpEaX3VHty W7TyUELpmbtgSx76wJ9xS hLuHmJ9QWcqU6OwnaO9UM DaaFYjPQseZAX8Z56lp6V 6TRXnOKWxEXX4 yQB8zP0hqSlkzubglZObs DsgdmVydGljYWwtYWxpZ2 41QRZarJqnGw3TDCNtbSC nZTwvdGQ+PC90 dl21X3PsTueiZqh3ZKFsX XM4hVL0lA1bRVWsVHlah7 Q4tUW4D7MyvnWwhf2my0d yHEYrBPllG33x qXCho8G0ITOteQC4HOZsj GypOgWjaQ26Ukc+PGNvbG rhn0AzLakkl9qzi5ebrKl 9IjMwJSIgdmFs jNvyUNS9g9OySk33D34dE HdpZHRoPSIzMCUiIHZhbG bnyc7hrU4uXz6+PGNvbCB 2bXH5yI7tYxPg VaQ7ZOvcX993QeYvsWDeL vtnn2kif4dznTw6TaJfWG TsewNlaRszVPS3z4TdHj4 7N2DczKddx8It Yps5fy40cESxx9H7lWY2P 3BhZGRpbmctbGVmdDogMC 5tITEmvruyVFJtnA6fDIT aW1a8FlLzHdK4 VGzxX3GjcgW4KKLbeVCiO QBpzPUAfI4cscvrd5uyjn mmIbPwOAUwRBl2DWx3LQG saWduOiBsZWZ0 SpY4LZV0eXJfhP5egRsqy gdwxH7vKuq+RGc3k7fygG TxMB0ssMS1MH01CJ71qJA xd5V3wQY4P5Mp KNQrigesxhzcpWG6TGCaJ WRztY08Hr9fiMycSa4wTN IyFGT3FSHhyLRjM7YysQ5 yOiAjMDAwMDAw I7OybFEpSKmyF704BGdmB qZ5NSHpyyAhM4BfRYSwxR nqZeK3i3V1Lx9UAU01VN5 3MG50kVOzn6L1 zGC2Y3ZlLUTizknrczzux NY5JGEkUGBsmK28Sl8gyZ rpJc7zTFYgNIQ8ZOAemMB yR3UxuB2fCfWw TLBdGYQjH9CrsQIsPXplN 194YUswJvF2WEUmruJxV2 OxEBBbeVmuJrQ2d9L9Nk9 CMe11XX25XK53 eBTgc8H7bXC5Y3HuJNQnn ruxpzplxVO2CTCnCSBbiF 50Qu0ztDeyLi1qHOAoVGL 2JCYfuXCxN6Xi qP7hMzQmKIHdBPHfS7Yzj ZQtQMzeO454ODtmMmL9BU XquoGkD7HcXQEplUoyQrJ 2w3A4Wy3PQCky brb7B6UwRyfzcUK+PC90Y PLjYE31rKJsjXWmp7ivrR y3YfUdZXQgPWK7nLccWQu xd0PwSDEmT89o bGFw (more content not included)... Normal [facility] Ambulatory Clinical Summaryo n 08-02-2020 Ambulatory Clinical Summary {[id number]}CD:[id number] Normal [facility] Insurance Correspondenceon 0 08-02-2020 Insurance Correspondence [id number]#1 .00CD:127 Normal [facility] Insurance Correspondence Off iceon 08-02-2020 Insurance Correspondence Office [id number]# 1.00CD:127 Normal [facility] Insurance Correspondence Office [id number]# 1.00CD:127 [facility] Nursing Assessmenton 021 Nursing Assessment [id number]# 1.00CD:127 [facility] Obstetrics Office/Clinic Not jasmine 08-02-2020 Obstetrics Office/Clinic Note Chief Complaint OB 38w 5d, baby moving, occ. [place], swelling bilat. feet, woke up with Migrain in middle of night Obstetric History History (1,0,0,2) # 1 Baby 1 Outcome Date: 2008 Outcome: Live Outcome or Result: Vaginal Gender: Female Gest Age: 41 weeks Wt: 3232 g [place] [facility] [place] Labor: -- Child's Name: -- Baby's [...] trimester) Ordered: Office Visit Level 4 Est 32332 2. Obesity complicating , third trimester (O99.213: Obesity complicating , third trimester) Ordered: Office Visit Level 4 Est 10231 3. Depression during (O99.340: Other mental disorders complicating , unspecified trimester) Ordered: Office Visit Level 4 Est 83102 4. 38 weeks gestation of (Z3A.38: 38 weeks gestation of ) Ordered: Office Visit Level 4 Est 04559 TH Follow-up With When Contact Information LAURA MACEDO, Funmilayo Ryan In [address] [place] [address]- Additional Instructions: Problem List/Past Medical History Ongoing Attention deficit hyperactivity disorder Chronic fatigue syndrome Depression during Insomnia Obesity complicating , third trimester Ovarian cyst Supervision of high risk in third trimester Historical Medications Multivitamins, 1 tab(s), Oral, Daily Allergies No Known Allergies Social History Alcohol - Denies Alcohol Use, 11/21/2009 DENIES, 04/14/2020 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 2019 [employer] Normal [facility] Discharge Instructionson Discharge Instructions [id number]#1 .00CD:127 Normal [facility] Inpatient Clinical Summaryon 07-31-2020 Inpatient Clinical Summary [address] [address] Clinical Summary Person Information Name: MYA MYLES [facility] Age: 30 Years : 1990 Sex: Female PCP: Chao Blackwell III, DO Marital Status: Single Race: White Ethnicity: Non- or Language: Tongan Visit Id: Visit Reason: Speciality: Acuity: Obs Enc Type: OB Triage Med Service: Obstetrics Arrival: 07/30/2020 21:16:34 Discharge: 07/30/2020 22:58:00 Dispo Type: Home (Routine DC) Address: [address] [place] [address] [address] [place] [id number] Provider Notes: Diagnosis: Problems Active Insomnia Chronic [...] Follow up: With: Address: When: Funmilayo [place] [address] [employer] In 3 days 08/02/2020 Comments: Keep scheduled [...] Type Location Start Finish State WH [facility] 08/02/2020 4:30 PM 08/02/2020 4:45 PM Confirmed [facility] 09/15/2020 9:00 AM 09/15/2020 9:15 AM Confirmed Patient Education Information: Normal [facility] Inpatient Patient Summaryon 07-31-2020 Inpatient Patient Summary [address] [address] Patient Discharge Instructions PERSON INFORMATION [...] up: With: Address: When: Funmilayo ESCOBEDO [address] [place] [address] [employer] In 3 days 08/02/2020 Comments: Keep scheduled [...] provider. Type Location Start Finish State [facility] 08/02/2020 4:30 PM 08/02/2020 4:45 PM Confirmed [facility] 09/15/2020 9:00 AM 09/15/2020 9:15 AM [...] to serve you. Thank you for choosing [facility] Consent for Treatmenton 07-19 Consent for Treatment [id number]# 1.00CD:127 Normal [facility] Consent for Treatment [id number]# 1.00CD:127 Normal [facility] Insurance Correspondenceon 07-29-2020 Insurance Correspondence [id number] #1.00CD:127 Normal [facility] Insurance Correspondence Off iceon 07-29-2020 Insurance Correspondence Office [id number]# 1.00CD:127 Normal [facility] Nursing Assessmenton Nursing Assessment [id number]# 1.00CD:127 Normal [facility] Ambulatory Clinical Summaryo n 07-28-2020 Ambulatory Clinical Summary {[id number]}CD:[id number] Normal [facility] Obstetrics Office/Clinic Not jasmine 07-28-2020 Obstetrics Office/Clinic Note Chief Complaint OB visit 38 weeks . Obstetric History History (1,0,0,2) # 1 Baby 1 Outcome Date: 2008 Outcome: Live Outcome or Result: Vaginal Gender: Female Gest Age: 41 weeks Wt: 3232 g Hospital: [facility] Labor: -- Child's Name: -- Baby's Father: -- # 2 Baby 1 Outcome Date: 05/26/2013 Outcome: Live Outcome or Result: Vaginal Gender: Male Gest Age: 39 weeks 3 days Wt: 3390 g Hospital: -- [facility] Labor: 5 hr 55 min Child's [...] trimester) Ordered: Office Visit Level 3 Est 13493 TH 2. Supervision of high risk in third trimester (O09.93: Supervision of high risk , unspecified, third trimester) Follow up in 1 wk. Ordered: Office Visit Level 3 Est 01197 TH 3. 38 weeks gestation of (Z3A.38: 38 weeks gestation of ) Ordered: Office Visit Level 3 Est 24808 TH Follow-up With When Contact Information [facility] In [address] [place] [address]- Additional Instructions: Problem List/Past Medical History Ongoing Attention deficit hyperactivity disorder Chronic fatigue syndrome Depression during Insomnia Obesity complicating , third trimester Ovarian cyst Supervision of high risk in third trimester Historical Medications Multivitamins, 1 tab(s), Oral, Daily Allergies No Known Allergies Social History Alcohol - Denies Alcohol Use, 11/21/2009 DENIES, 04/14/2020 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 ? Rear-facing infant car seat. Have [...] Petroleum jelly. ? 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 ? Hand orthopedic physical therapist. Health and safety ? Rectal thermometer. ? [...] ? Consumer Product Safety Commission: www.cpsc.gov ? [place] [employer]: www.healthychildren.o rg ? Safe [...] 01/17/2009 Document Revised: 01/17/2018 Document Reviewed: 12/25/2017 [employer] Patient Education ? 2019 [employer]. [facility] Coding Summary.on 07-27-2020 Coding Summary. CD:[id number] G h0bWw+PGhlYWQ+TG8QVGP xI16dxCQmiF6AG4kJNF4B XJRAPAWZPX1TUN8euCV8S MtiD1MzsfVr BdjizYFlVJ04NVl4BGQ2z SsjWGlqoS0irCRtK8e2Kc YwXL85oF18AKdpWKTiIwI 3LjZpbjsgbWFy U5irAxUpeBCgBfx+PHRhY mxlIHdpZHRoPScxMDAlJy LatSiyRI4jYk7fBPHiIUK vbGxhcHNlOiBj s7woADIdNGjlDT2skLjnJ 2ZmqTG3QBYcz1q9Mw40qL I+UNQpWGJ7lSniQTmvb04 5NrIpe6qcZHV7 lWQgUDvuCXO0J20ya6E8H EMpNZGhBXW7gSF9hX2weL zhhpqhO2HrwFCjGkH0VHX 7jXYiwJ6txDde mhzaxI4fZhh+V15HKP9FF SPFAT5HDfz7N3IqXbvnrE I+AK46AXBaNY27rHMjrEV pf1ydwLl7VgGm HTYqYDC0eLvpZPoqf1RvN YIcS52faNCma5I0YPLnyH dgpVJpQnDtoXO8tI5wTAw wwarni3cjronh Vmotc2bcci93oX82R94hG YmyCUYrGZT1TTVpQBKrpJ xkbd4zyI7wYg5+ZRotv7h ao3oqzQb8PgHt ZWFuctGkhSynWHJ1n4GkJ h09R6XyrZneb2SsXid7bo 88uCToi2W7gWE5OKgkZYF awO6hWGasFvY8 ROXtHkWytE49rYWzHGdaV f8mmIdgaQdrJM8sELLqgv ruNGUlpO9fEYAdpBHqkYj xDN4jVELbtihk l401QkOyKER9LVBddPCtQ 8DogL9ePjYeDSBzSVMeI8 PvjNNyWVwsE010JBigPkT 6UFPesfTgG5Nc MNLhaRjlOgU8m5V6Bu7Ov 9MadbqxWYL3TIypZGD1Fv R0IfSmYzS6U5NdWcg7BED lnDbqYY8iV1Zo NGUjdpfuowvpzAT9ZDKrC LLnqQ49xPAiKSlkDp6yq9 J3s053RMZsVOMccV44Wk0 udDogMTBwdCBU jV9ytcwzk6rtjejhLfVnI UCrBGl8QYd3FPBpqBdpSv XxHVM0RdU7PIZ3bKVmwO1 bvAypzbxpdO6f Oyc+Q96haG0pNTP6TRC4p dkjGURgzsUgSU08SK02I6 RyPjwvdGFibGU+PGRpdiB unLekTL1vEpMs v2tqo5ZmOFrjA3YmVRDvD OznMci0DKXmXND2jWJ8pT 7kFUEyZIaml5N6fIH7K2S wnhYucd1vw6tf ADNiCAlhS64pgVVxb6O5K SYfhEY7LHTrjCplReNwxO 93Oyc+VMThtZmll3GkXkt sg6qxg3ljqXm2 BpBgSJXtqfPlwJozSQH4b 8AkHr38X56mCOpoWCZgKB OsFPJcOSKpcXcibq2gkC6 wIi8+PGNvbCB3 gPW7cX2oTKPcYkN7IDnqK 380FbRwlKNnTfuep2hnr5 lndBc9AnEcZPYrhgYsoQt jHIU9w4YnCc90 X77jOBdfZSNtNKPbZDFoJ EAogJtgem9zhG2aMb2+PC 6mz9bywm59xH82eRQ+PHR iUPM1mMuaTXzm RYJzhL5cFMzvPuV0GTEfA pGbnM98aTXtZLpxAj0mmE zboTjhTF9eYLWxrcngf46 2UhKfr4keKUCo fOFsLXpbKCW0Z04ao2L0K WBaTVIbKKD0rYL0eU5kvB lnbjogbGVmdDsgdmVydGl sQBbzWHtbQ636 IHRvcDsnPlBhdGllbnQgT pSbROp6H1AiVde1CFAduN gbYS1knELuEJrvHc7dcVc whFvjZT4zUHUd syaul413ReBsp4jjELCtg FQvUFtqLSH8T30sw1G1HR LqASTeJHQ6rLO0kB4erUt nbjogbGVmdDsg rbOfrQicEGzqEYytW648O HRvcDsnPkJpcnRoIERhdG S2UV71CP50zVQue7L2uIG 5R5XlUPVftspa dpjzmBY4MIWaPNQxjB14D e3zrQiyEp4sVTCsHUY8NU OrgKWbA1AulO8sXkFgOZH bUPGdK1AlzNTg NQfcO876HDgyLlY9TRQtg hYfD7DoYNTkdQxqHbD4y4 W4Qc9LP1N9RB17PF72eFR ag7R0pOJ2U3Qt KPHsgvirhhgdvNP5XEBjF NZqqZ00Iu8acSiwXr5hPA OsYSZ9TVTliZVmA1IpqY4 yOiAjMDAwMDAw Y1GjbYVoCDwxA189IPhhY qT8VHUoloZgJ2VhHLHenF uqWdL2s9V0Kb5KHAj3TU8 2TT52jVEbo1J0 fBW0M7XeSUCauumuukymn UU9QRTwXHOfeO35Ac0mmA lsXm4cVYZoOBV6KZAwdMF eA3BsvY2vGyPx JGClSXSnF8OvnZWxXXqhO 325IYmxIpB8AUJzrgUlN2 OqVTWamFafWbI5d5B4Nk1 QRZTlMQ16HXQ2 nBR3FY96QD42Q8VfIlbbt GFibGU+PHRhYmxlIHdpZH RoPScxMDAlJyBzdHlsZT0 gXp8fHQQoLNQm jHnyjNZfRyEjx0wyGIBfE TeiYE7okSesC0MihXY7FL Rij5h1Px69J78dU9PtrNM +OOJrwTN0uFG6 dB2qYuHiHeN8MIqaL926O pGatVFhMmgvg1gli6yksW a7KxV9IXJabxNaoTeiKFY 6u1PzZs84G58e IHdpZHRoPSIxNSUiIHZhb Ycjai7icS1xZa1+PGNvbC B1cBL1yF6aPvGuMyV3AQe vX462BmGjpFYl Albfo2uxi1ljbWg5JtCrS QIeyqKabDubHYR9f5DaAr 14Z2UkfNyek5TvTzo1ya1 8rPBow8H0kVF9 Y0DfUQWdxukhlUZugUwdX U6ySZPqldxnXMErhX4iKQ WgD7h6ZgExWmJ9XDeiY8C jwhC8HEJklIIe OIdeCXE5K88at0M3DZVfK KNzMKR4eII8sS0xuPzhku ogbGVmdDsgdmVydGljYWw lTSqkA308JKPo hJntPRYlwP9pVTJrwMOqw RxnPA8yYDMjlnktCgRRAk kFKf7kEPXNTaEPV4MeOOe vdGQ+PHRkIHN0 nZqfIIsbHLXfaP7bAMNfN 7g3NpAtOhG4MWsnR1SmWN EcufsrVu98oP1bYlRpCjF 8HNzjO0JiyvK3 WJUpsKKqZOkiJAC3E29ll 2F2XVQxTCNiTYQ8yMB5zD 1hbGlnbjogbGVmdDsgdmV ydGljYWwtYWxp I762XOIirDdcQzF1KbEpF qA6QYA9Q1TtThs6NYLxtC jeVH7agXVsVAarZs4giKb zgRivDO6vTABp ixtkHFFozK9jBFMmwVXgn ReqOS7vKAPipzpbb454Zx SsSGP9NLOobNGvE7JchI7 yOiAjMDAwMDAw O4RhfDDfBEgoU183DMnlQ jU0CBAiazOcU4KsLLJhoY tjLjI7k3Q7Ud0tASFUEFV yczwvdGQ+PHRk BIP9tDxsELfoVYTvqP2uN QQuU8b5YbHqAlI1EMxrP5 NdDRStduqtWl42oX0nJbP pFdZ4TKmlA1Cg eiG2NWMznWLjKWkbMIP0H 73fh2O3BFTqHOQsOJQ2sP F5gD4jsManjcwfcUOouJv gdmVydGljYWwt AIlbQ123FXXyuZvvAtAqd WFsZTwvdGQ+NOTfIEW8zR jaLRdmVFZsyL4lSPTrR5r 0OeRyZkB0OHlt R8IvWWHkxigyQn65iE7eD gQdAnX9ZBhuA1YhklQ1GY HgiNGxPSvyNYF9O41mh5Z 4ORKoEQOoEIZ7 wWQ2aA0nnWyikazegFDjv DsgdmVydGljYWwtYWxpZ2 70AEYomLquPc2XJWImoHC nZTwvdGQ+PC90 tf02S0CjYpejTix4ZTDhT SW6uYP1rH3sZJMkVVifm6 B0xRB5V9KuiiRhij9wo0h pXGRmVOwuA51r aJGti3H4PIRbwOY8SMMcp BqpTuCzgZ85Xdh+PGNvbG dpe1XdRbtog0jqi1wgbRs 9IjMwJSIgdmFs aPgdLUA5r5TtWj03D04fL HdpZHRoPSIzMCUiIHZhbG ftsq6uqJ0sJz5+PGNvbCB 2sJH4rZ3uChGt EjJ6XPfnA020FhPaiIPsJ oiob5clw1qizAc0HtKdWM IyztVmsCmnSQM3a1KjNb3 2X4BzyNozw3Xg Nhb2ra08zPQty2I4nLD5B 3BhZGRpbmctbGVmdDogMC 8xPZHxoaeyDBOzjQ8gWRR gI9v9GoSvDaR0 TXxmC8XmhkB4WDNqlZLnO IXzlORTxW8bgwvtk5vfqq cwTyKsMNRqCXc6UCn9ZHV saWduOiBsZWZ0 OoL7MZK3vOSudG8nwNlgo dxczT4aLvx+YMy5t7ebfN JjTB8shFB6PR40ZK56aJP lh2C9yUV5O5Fd DNBvrjrzuvwraGE2JPLrB GUhlU41Ab3nuJcrUh3nDP JnXZO8PGVxlBJfX3VrcP5 yOiAjMDAwMDAw R1KqmAEpHLkzH029ELceV eS4ATWdawAeC5PkHQBplG qfSaM0w6H8Fe1BOZ83UJ3 8IN16gYSzf0C9 iRS8T0KqHYWglwcdlgiki RY3WRNhYYCbdZ73Py9naI gpHs2zLNUhCUO7AXMnbIS zV8CknA4uDtAm HYOtTQNqE2QbeHAhNMocL 559HKumVwG4NEJbmbAqP9 TbETIdqFnaDsE0o2V9Xn8 PCu73IL73IQ63 qESum7F2oAI3U5InDDAls amdttzvhGL6UGEpJPVmcN 49Ed1ekQymFm1zIIHjQOY 1SIClyVFrL4Fk dP3wTzUxEGReUUUjJ4Vrb KKfETejH060WIucGrB5ZL NihdAnT7LuHHXruXquBzA 0v2S1Gl6RPLap mna2U3DwQjqhdGL+PC90Y PDuII22vVVshDLof7vtoC z5DiJyIPBhXXM4aTqxXAy cb4LdMMNrE12e bGFw (more content not included)... [facility] Consent for Treatmenton Consent for Treatment [id number]#1 .00CD:127 [facility] Discharge Instructionson Discharge Instructions [id number] 2106 [id number] #1.00CD:127 [facility] Comment on above: Other Comment: incco rrect title Discharge Instructions [id number] [id number] #1.00CD:127 Normal [facility] Inpatient Clinical Summaryon 07-26-2020 Inpatient Clinical Summary [address] [address] Clinical Summary Person Information Name: MYA MYLES [place] Age: 30 Years : 1990 Sex: Female PCP: Chao Blackwell III, DO Marital Status: Single Race: White Ethnicity: Non- or Language: Tongan MRN: Visit Id: Visit Reason: CONTRACTIONS Speciality: Acuity: Enc Type: OB Triage Med Service: Obstetrics Arrival: 07/26/2020 14:59:40 Discharge: 07/26/2020 16:40:00 Dispo Type: Home ([facility]) Address: [address] [place] [address] [address] [place] [id number] Provider Notes: Diagnosis: Problems Active Insomnia Chronic [...] Follow up: With: Address: When: Funmilayo ESCOBEDO [employer] [place] [id number] Business (1) Within 1 week Comments: Call for any problems. Call for fever > 100.5 F Return for contractions closer, longer, and harder Return for decreased movement Return if ruptured membranes or vaginal bleeding Type Location Start Finish State [facility] 07/27/2020 2:45 PM 07/27/2020 3:00 PM Confirmed WH [facility] 08/02/2020 4:30 PM 08/02/2020 4:45 PM Confirmed WH [facility] 09/15/2020 9:00 AM 09/15/2020 9:15 AM Confirmed Patient Education Information: Normal [facility] Inpatient Patient Summaryon 07-26-2020 Inpatient Patient Summary [address] [address] Patient Discharge Instructions PERSON INFORMATION [...] When: Funmilayo ESCOBEDO [address] [place] [address] [employer] Within 1 week Comments: Call for any problems. Call for fever > 100.5 F Return for contractions closer, longer, and harder Return for decreased movement Return if ruptured membranes or vaginal bleeding In the event that this physician does not participate in your insurance network, please consult with your insurance company to find a nearby participating provider. Type Location [facility] 2:45 PM 07/27/2020 3:00 PM Confirmed [facility] 08/02/2020 4:30 PM 08/02/2020 4:45 PM Confirmed [facility] 09/15/2020 9:00 AM 09/15/2020 9:15 AM [...] to serve you. Thank you for choosing [facility] Normal [facility] UA With Cult Reflexon 2020 Bacteria LM Ql (Urine sed) TRACE Normal Trace [facility] Comment on above: Performed By: #### 2 973504, [id number], [id number] #### [facility] [address] [place] [address] Bilirubin Ql (U) Negative Normal Negative [facility] Comment on above: Performed By: #### 2 340304, [id number], [id number] #### [facility] [address] [place] [address] Clarity (U) CLEAR Normal Clear [facility] Comment on above: Performed By: #### 2 148282, 6530044, [id number] #### [facility] [address] [place] [address] Color (U) YELLOW Normal Yellow [facility] Comment on above: Performed By: #### 2 783148, 2202354, [id number] #### [facility] [address] [place] [address] Epithelial cells.squamous LM.HPF (Urine sed) [#/Area] 5-8 Normal 0-2 [facility] Comment on above: Performed By: #### 2 188343, 0199294, [id number] #### [facility] [address] [place] [address] Glucose Test strip (U) [Mass/Vol] Negative Normal Negative [facility] Comment on above: Performed By: #### 2 193115, 5490911, [id number] #### [facility] [address] [place] [address] Hemoglobin Ql (U) TRACE Abnormal Negative [facility] Comment on above: Performed By: #### 2 407031, 8671703, [id number] #### [facility] [address] [place] [address] Ketones (U) [Mass/Vol] TRACE Abnormal Negative [facility] Comment on above: Performed By: #### 2 725377, 7545141, [id number] #### [facility] [address] [place] [address] Wisner.plasma/Wisner.R BC (Bld) [Mass ratio] 0-3 Normal 0-3 [facility] Comment on above: Performed By: #### 2 978007, 9213131, [id number] #### [facility] [address] [place] [address] Nitrite Ql (U) Negative Normal Negative [facility] Comment on above: Performed By: #### 2 830822, 2626184, [id number] #### [facility] [address] [place] [address] pH (U) 6.0 [pH] Invalid Interpretation Code 5.0-9.0 [facility] Comment on above: Performed By: #### 2 938538, 6852305, [id number] #### [facility] [address] [place] [address] Protein (U) [Mass/Vol] Negative Normal Negative [facility] Comment on above: Performed By: #### 2 432294, 8112536, [id number] #### [facility] [address] [place] [address] Specific gravity (U) [Rel density] 1.020 Invalid Interpretation Code 1.005-1.030 [facility] Comment on above: Performed By: #### 2 474624, 4126157, [id number] #### [facility] [address] [place] [address] Type of Urine collection method Clean Catch Normal [facility] Comment on above: Performed By: #### 2 506564, 1559161, [id number] #### [facility] [address] [place], [place] [address] Urobilinogen Qn (U) 0.2 {Henny'U}/dL Normal 0.0-1.0 [facility] Comment on above: Performed By: #### 2 497622, 6139852, [id number] #### [facility] [address] [place], [place] [address] WBC Auto Ql (U) TRACE Abnormal Negative [facility] Comment on above: Performed By: #### 2 501077, 8379291, [id number] #### [facility] [address] [place] 8[address]8557 WBC LM.HPF (Urine sed) [#/Area] 0-5 Normal 0-5 [facility] Comment on above: Performed By: #### 2 281038, 7312977, [id number] #### [facility] [address] [place] 8[address]8557 Yeast LM Ql (Urine sed) TRACE Normal [facility] Comment on above: Performed By: #### 2 303800, 5997888, [id number] #### [facility] [address] [place] [address]8557 [place] 07-22-2020 Consent [id number]#1 .00CD:127 Normal [facility] Consent for Procedure/Surger yon 07-22-2020 Consent for Procedure/Surgery [id number]#1 .00CD:127 Normal [facility] US Follow Upon US Follow [...] Transcribed by: ERMELINDA Technologist: ADEN Technical Comments CLIFFORD 08/11/20 CLIFFORD Obtained CLIFFORD by US GA 37w 1d History 3 Para 2 Transabdominal Ultrasound Performed Placenta Location posterior Placenta Grade 2 Positioning Vertex Amniotic Fluid Volume Normal Normal [facility] Ambulatory Clinical Summaryo n 07-21-2020 Ambulatory Clinical Summary {[id number]}CD:[id number] Normal [facility] Ambulatory Clinical Summary {[id number]}CD:[id number] Normal [facility] Obstetrics Office/Clinic Not jasmine 07-21-2020 Obstetrics Office/Clinic Note Chief Complaint OB 37w, baby moving, swelling fingers and feet goes down with rest and elevating them Obstetric History History (1,0,0,2) # 1 Baby 1 Outcome Date: 2008 Outcome: Live Outcome or Result: Vaginal Gender: Female Gest Age: 41 weeks Wt: 3232 g [place] [facility] [place] Labor: -- Child's Name: -- Baby's Father: -- # 2 Baby 1 Outcome Date: 05/26/2013 Outcome: Live Outcome or Result: Vaginal Gender: Male Gest Age: 39 weeks 3 days Wt: 3390 g Hospital: [facility] Labor: 5 hr 55 min Child's [...] trimester) Ordered: Office Visit Level 4 Est 97431 2. Obesity complicating , third trimester (O99.213: Obesity complicating , third trimester) Ordered: Office Visit Level 4 Est 34297 3. Depression during (O99.340: Other mental disorders complicating , unspecified trimester) Ordered: Office Visit Level 4 Est 36886 TH 4. 37 weeks gestation of (Z3A.37: 37 weeks gestation of ) Ordered: Office Visit Level 4 Est 14547 TH Orders: metronidazole, 500 mg = 1 tab(s), Oral, q12hr, X 7 day(s), # 14 tab(s), Refills(s) 0, Pharmacy: [id number], 158, cm, 07/07/20 20:05:00 EDT, Height/Length Dosing, 88.3, kg, 07/14/20 16:41:00 EDT, Weight Dosing Follow-up With When Contact Information Funmilayo ESCOBEDO MD In [address] [place] [address]- Additional Instructions: Problem List/Past Medical [...] Protein Urine Dipstick: Negative (07/21/20 16:41:00) Normal [facility] Comment on above: Result Comment: [...] 05/13/2008 Document Revised: 07/07/2019 Document Reviewed: 07/07/2019 Elsevier Patient Education ? 2019 [employer] [facility] Provider Letteron 07-21-2020 Provider Letter July 21, 2020 To Whom It May Concern, Mya Myles is scheduled to be induced on 08/04/20. [facility] [address] [place] [address] [facility] Ambulatory Clinical Summaryo n 07-14-2020 Ambulatory Clinical Summary {[id number]}CD:[id number] [facility] Obstetrics Office/Clinic Not jasmine 07-14-2020 Obstetrics Office/Clinic Note Chief Complaint OB 36w, baby moving, [place] in morning, feels like underwear are wet and has to shower frequently. Contractions all night and not able to sleep Obstetric History History (1,0,0,2) # 1 Baby 1 Outcome Date: 2008 Outcome: Live Outcome or Result: Vaginal Gender: Female Gest Age: 41 weeks Wt: 3232 g [place] [facility] [place] Labor: -- Child's Name: -- Baby's Father: -- # 2 Baby 1 Outcome Date: 05/26/2013 Outcome: Live Outcome or Result: Vaginal Gender: Male Gest Age: 39 weeks 3 days Wt: 3390 g Hospital: -- [facility] Labor: 5 hr 55 min Child's [...] Test Q0114 Office Visit Level 4 Est 90401 NC 2. Obesity complicating , third trimester (O99.213: Obesity complicating , third trimester) Ordered: Fern Test Q0114 Office Visit Level 4 Est 95376 NC 3. Depression during (O99.340: Other mental disorders complicating , unspecified trimester) Ordered: Fern Test Q0114 Office Visit Level 4 Est 22134 NC 4. 36 weeks gestation of (Z3A.36: 36 weeks gestation of ) Ordered: Fern Test Q0114 Office Visit Level 4 Est 38107 NC 5. Bacterial vaginosis (N76.0: Acute vaginitis) Ordered: Fern Test Q0114 Office Visit Level 4 Est 66410 NC Orders: metronidazole, 500 mg = 1 tab(s), Oral, q12hr, X 7 day(s), # 14 tab(s), Refills(s) 0, Pharmacy: [id number], 158, cm, 07/07/20 20:05:00 EDT, Height/Length Dosing, 88.3, kg, 07/14/20 16:41:00 EDT, Weight Dosing Follow-up With When Contact Information Funmilayo ESCOBEDO MD In 1 week [address] [place] [address]- Additional Instructions: Funmilayo ESCOBEDO MD In [address] [place] [address]- Additional Instructions: Problem List/Past Medical History Ongoing [...] type 2: (more content not included)... Normal [facility] Comment on above: Result Comment: Elec tronically Signed By: LAURA MACEDO, Funmilayo Ryan\.rosey\Date and Time Signed: 07/14/20 17:27 EDT Patient [...] 05/13/2008 Document Revised: 07/07/2019 Document Reviewed: 07/07/2019 [employer] Patient Education ? 2019 [employer]. [facility] Coding Summary.on 07-12-2020 Coding Summary. CD:[id number]:[id number] G h0bWw+PGhlYWQ+EP9PVGN rJ46fhDKnjI7UY5rULT1S LTOGOOKNOD3YEK6heXE3O FtwP5BpxzNw HbfdpNCiVH51ANo8BWH2y PmiWFocbT9mfABgQ6s2Xi FiVG23jL17KSusPTJcZcO 3LjZpbjsgbWFy U3pqRsWqjOHtHdu+PHRhY mxlIHdpZHRoPScxMDAlJy FviHaeXU8sBn1xKMDkDBV vbGxhcHNlOiBj d5icUQEsUSfhNF7ieKneJ 2ZhlPO1ZQGyi6q1Ki40lD I+PRDrLPU0sDkeWLynj40 5WnLcb0kpVCQ9 zRMuWJevEUP9B59pm4X2X RGeWGYvKQY6aEM4aX8qgD dwbuyuC6VolQOdXgH0WMW 1dAAdyX1qfTle aqnfcV4bPzz+E72FUT1CM JLQYI5TJtb2F8CwSaebaA I+BB65QYNnKN34uEZjuAV ba6pdoBu4XyCq OQWwYHQ9dEzdHYmye2GpP NKaO27nlRYkd0X7ZWDxqO tldYNeEyYipRT5xN3sSDf usltzy4ksrawg Nxfut4esnm96yY70Q71fB ZfgWUPxCGY9VYGdFQCemH mdnd5kjK1hDt8+APuzh2z of5liuUh1FwJz APElirIqeUtwBPM0b2TmM l96A7VlnFjxi5RjUfm3ko 16oTCvp9E8bWX7HSqmUSI pkK3gEYtdOrK0 YAHjBgIyaH50uYLyZZgqL p8paDcogIlzOO8cQFJsle kcTKZocV4bWJWesGLivIo rBW3lUSSrbimt w662QkAwVBV1KMAmvWAnR 5YtmM9sKnJnFAIkSZGlF2 KfoGCxMFvkW344VCjqJzP 2RVTjrgKvW6Ls YBEbzKegOdX7c3L6Fa3Ys 9RjlnerISY8SHecBTV6Sy I5OjEpWiO4L1JoIgv6LKF vaVjvMM4kQ6Ca JSDdtcpvxnjlnIO1XSAbA NApvW71iBTcMKtcAn0lj7 H8r392DMNeJIMdgD19Gi8 udDogMTBwdCBU uT5icosfd3dhcfptTpEaN SCbBTs1UIj1CSShtOrgUj RlRFT9WlG4RCO1oXBqdZ3 trUzeqasgwK0w Oyc+C48odZ5aQKW1NTK0f zisBOZjdcUcUO52LN85R3 RyPjwvdGFibGU+PGRpdiB mvGviUG9yDoHu d6ury5YwQUdaY2KmRWBhN PyyIwh2AODgDMF4sXS5lB 4aZWSuYLnvq6V2cUH3J8K wekFchw2ng7md KWIkKCtgE32osHUde1B1O SRvyWG4EBXazDbyTjXhqI 93Oyc+QPSfyFyei3PsQlf fy3xil8tkvJx2 LwYaFPAnhrIeyElnGXY9q 1SmPh35P94lUUtbNTNqSF JzNHCnVEEsjYfeby6wpN4 wIi8+PGNvbCB3 oEH1gM7fPWTkBlW7XTjlL 336LbYloUTrOzzpd0htc9 tjrHi5LzIiWWYgzcTudYs qAYN2e9BjBr90 I29uHSsxOPXfLEPuRDIrY DSbgAelcx6pzJ1wKh3+PC 3uf9sibo92pS22nEV+PHR cAHC0lFdxVUdu TEBtpQ3qBIshXeE1MMWwE hBrrR78xLOgUVbmNu5jwJ ahyNspNF1dVKJbencbv78 3WiAbk1trSDZy bDPuEAojOSX2Y56lk1S9F MHaXSKlKCE6xQT4kQ7xhK lnbjogbGVmdDsgdmVydGl xWHsjDChmW366 IHRvcDsnPlBhdGllbnQgT cHwQUx3I0RsUlg9KLQkxP zkQP1bgQBsSHwmLg1xvQe zcZsoFA9oHLLn kiuur296TeOiw5yqAMOpu KCuFZgdVZC8M90io0D5IB RgOIAySDI2nCQ4aW3xyPs nbjogbGVmdDsg mwGheZypBNvoKPbnH066T HRvcDsnPkJpcnRoIERhdG M7RM13CI40jPNvk9Y5zVR 1K4FoDGSvkezg fdngpYT7RDRwMMAfzL49B a5gbUbwIf4aTGUpJOL0RG MprQQiO2BngR4uPkQhFPB gFLXsW3IwmHMg PFcdL231CTnsGlU3EGHel lYyI7YnZYKstAbpRmX3l5 X9Wt4WY6Z9ZL12FG57oLE eq9D8gIZ1M4Iy JHRvcenqbigkoVN9TWMaB YPccS81Yt3wiTqzLl0qFW HoREP2QJJsyMTaS6NucP9 yOiAjMDAwMDAw D4XhtXYgPElkT702RFliU rS7PGVgvuJvY0FaNUIusW cdUvF8q9T5Lv5SMMt3TX6 9WD23lDOha5G3 xRZ0W3OnSPDgxfqdoppmq BT6RDYxRKFtaA31Qi9hwW ujXc9hMHQmWMF8JYIhqOQ sR4PejT6bKnKj SKUkCEPhM2HtlTQhCIduV 842FVieOtK0SCEsdoNmA6 NcNGSlrFleUkN8k2F8Uw9 VGEFoWX05PGV5 lHF3HY49JX01V3LmAaazv GFibGU+PHRhYmxlIHdpZH RoPScxMDAlJyBzdHlsZT0 fQd9pAHPfJVUo kXqjmLCoWqSug3liHMAvM PliZU1rrAeeA7FcsMB7VU Qlg3s8Ws59A78vB7BzjYI +QWLkxCP8tXZ4 eF6wJiMrFdU8BXonA723G cGexDUgFpffv0ckq0oxeS c9UeK3EOVbhsYnjRntXBJ 0v3PuEw87L49o IHdpZHRoPSIxNSUiIHZhb Vjxjs2laD7eSa0+PGNvbC Q2qVY5mD6eUnApClK1ALw qS469QlHivEMl Qtioi0gzn6hrgZy9WkVyR JCydnZdxKeqXMM6g1HsDc 54X3IzuVlrz4QnTph1qf9 3wPPzx2Q0nPQ0 T3QySWGcsxtfvPGejAvkN J5zSKFsjpdwKFTqcG9jFL YbC2t8IaLhOoL9PCkhC9T fysT3COBanRQv HNjbVAQ3V75dl0D9TRZaV SDyKOV5aOK8aF7clGmzgv ogbGVmdDsgdmVydGljYWw uBYyzX664IBSn lQyjWTWheK6xWGMaxZQby BffZR8xKBZxpognEdPCAv sULy5lUAFMYkQGE3ScHAv vdGQ+PHRkIHN0 gQptLXxnAFJzpJ0lOYVmP 3m8TkFeOcN8IQvdM8QhHE CqraviVr37bI5wPkHuGsG 0NIkpZ8UdhsK0 TORnuDJhOYoxCTT3J66pv 7U8GELgBGCyBAG8vSK3nA 1hbGlnbjogbGVmdDsgdmV ydGljYWwtYWxp J057MTHkyKkbKnF0LuPiD dH0OKZ8G1KwAnn4MXFgdA buCV9nqZAzLGpdWu5xlWe loCzoAC4zYDIa qajtMOIynE2uIMSibLHyh UcnEH8xVYPanvuml470Zi QxMIJ0MFUnsHUsW4FwfF1 yOiAjMDAwMDAw W5KcwOIyPDyhJ342GSkoT zR6LJJuqgTgS5UtJQIrtI fiZtC8i3J8Zq5kTFOVFYA yczwvdGQ+PHRk BBX0pEmuFGkqCOCmrG5iV WOxQ3y4LyTsToG7XIasU5 HwUEKsgoqfPq96wQ1tUkP cFtQ0IDrfK2Oj kiT5VIKedLZqQIuvIAM4I 03nh4F7VSXxJLNiBRL0eE X4hU0veYbrybjuvNXjjTe gdmVydGljYWwt PVwwH599BKCziCsbWoPsc WFsZTwvdGQ+FRCyJBM2hM ehQMnmVDFxxE0aMSMgP2t 9IxRwDnJ9EHuu G5WsMSTqmmldSz16lI5xK pJhFoY7XBrjV6YhucC9RV ZdeCVrDOjpKEP2H56jl8J 7PABoTLWiSSD2 yFX3tX8emOrdqszpeHKsg DsgdmVydGljYWwtYWxpZ2 34LEAhkRppSr9LWGBcvFL nZTwvdGQ+PC90 bq48Y9FkEeigVkg0GMVbG VO2sEG8iD7rGYNzPHiub9 T3qAQ1N1QpjwScfk6ed3d rCROtWPszE57e bJLkh7P5UIFkaGS9WVQqb FldAeVefR42Eqr+PGNvbG jrr2FlSkraa5omo4yriYx 9IjMwJSIgdmFs gGvtWEZ7z7LcLu43K39iJ HdpZHRoPSIzMCUiIHZhbG peav1yiC6pYo2+PGNvbCB 0rYF5bV0jWsQw ZjM1NXjjK427LnGymGJvV yffk4ack1aeoWa4VqMpOB DqqoQzjVvfIDQ7w0HuOu8 6T9CrxNxxw7Pr Rft3yq81dQDlc5D3jBF2T 3BhZGRpbmctbGVmdDogMC 2sUIQtydvkESKojU3iZKA bR3c4TlHyOeU0 SGmeG1BljsC8HEIyaTXcO TYvuUBNhR2zqygql1fdqk fsTtOvJBEoYEz5NIc1MSZ saWduOiBsZWZ0 UfB3UGE4lBMfdT4wbXrlh thwjR0ePpg+THp2j2tabN DyQM1mxFR2DL69WT94pKS xj1Y7yQD8W8Sw UCIkfkrjqkxmmDZ1TDZfA ATylE95Ux1lmUchHt3dUU KzENH4ZSEluFCwG4KkxA1 yOiAjMDAwMDAw R2RbfZAaZAmcV390KNhbD tJ7TGYvbrLeA3SrUJDyrR yhYmQ6q4F6Tk5KJR23EI3 8AN50bNGdx2X9 aQM3B7NzZJRqfrbugxdep CP7GSLgRUCpgD79Bm8spL kiOu5fPPXjDPW5OZPpeYV bQ8YrnA7kIgCc YNSwIQRkD4IawECwPMpxC 243ZRnuDrG6VWOgqpGjI4 InBWHmeEpvXzL3q7H5Sd5 IYm00YS78YK17 lPQja7A3hZQ6V4OaYAFce gjaqbjmlDV3YHOfKVSfoI 12Gf9xaVioVb9qYYWoNKX 4VDNntMZlA0Em nO7lAkMhLKMhIQArT9Nxu UYpUXdyO598VCvbCcJ7VD TcvaFlE6MdWTToeKozTiC 2j7K1By2YHTla vsc8W0RiFkjkkSC+PC90Y CYyNQ71gKPndAUgd5lkeD i8XmHyAMUyQGT4tRpnCVx xo3SmRJYsY72w bGFw (more content not included)... Normal [facility] Insurance Correspondenceon 0 07-12-2020 Insurance Correspondence [id number]# 1.00CD:127 Normal [facility] Insurance Correspondence Off iceon 07-12-2020 Insurance Correspondence Office [id number]# 1.00CD:127 Normal [facility] Nursing Assessmenton 021 Nursing Assessment [id number]# 1.00CD:127 Normal [facility] Group B Strep by PCRon 07-09 Group B Strep colonization by PCR Negative Normal Negative [facility] Comment on above: Order Comment: vagin al swab Performed By: #### 2 [id number], [id number] #### [facility] [address] [place] [address] ABO/Rhon 07-08-2020 ABO/Rh Positive Invalid Interpretation Code [facility] Comment on above: Performed By: #### 1 [id number], [id number], [id number], [id number] #### [facility] [address] [place] [address] ABO/Rh History Checkon 07-08 ABO/Rh History Check Verified Hx Blood Type Normal [facility] Comment on above: Performed By: #### 1 [id number], [id number], [id number], [id number] ####[facility] [address] [place] [address] ABSCon 07-08-2020 ABSC Gel Interp Negative Normal [facility] Comment on above: Performed By: #### 1 [id number], [id number], [id number], [id number] ####[facility] [address] [place] [address] BUNon 07-08-2020 Urea nitrogen [Mass/Vol] 7 mg/dL Normal 07-08 [facility] Comment on above: Performed By: #### 2 [id number], [id number], [id number] #### [facility] [address] [id number] Blood Bank ID#on 07-08-2020 BBID# [id number] Invalid Interpretation Code [facility] Comment on above: Performed By: #### 1 [id number], [id number], [id number], [id number] ####[facility] [address] [place] [address] CBC w/Indiceson 07-08-2020 Erythrocyte distribution width (RBC) [Ratio] 13.6 % Normal 10.9-14.2 [facility] Comment on above: Performed By: #### 2 [id number], [id number], [id number] #### [facility] [address] [place] [address] Hematocrit (Bld) [Volume fraction] 28.9 % Low 34.0-46.0 [facility] Comment on above: Performed By: #### 2 [id number], [id number], [id number] #### [facility] [address] [place] [address] Hemoglobin (Bld) [Mass/Vol] 9.7 g/dL Low 12.0-16.0 [facility] Comment on above: Performed By: #### 2 946237, [id number], [id number] #### [facility] [address] [place] [address] MCH (RBC) [Entitic mass] 27.4 pg Normal 27.0-34.0 [facility] Comment on above: Performed By: #### 2 [id number], [id number], [id number] #### [facility] [address] [place] [address] MCHC (RBC) [Mass/Vol] 33.5 g/dL Normal 31.4-36.0 [facility] Comment on above: Performed By: #### 2 894600, [id number], [id number] #### [facility] [address] [place] [address] MCV (RBC) [Entitic vol] 81.7 fL Normal 80.0-100.0 [facility] Comment on above: Performed By: #### 2 [id number], [id number], [id number] #### [facility] [address] [place] [address] Platelet mean volume (Bld) [Entitic vol] 7.9 fL Normal 6.4-10.8 [facility] Comment on above: Performed By: #### 2 [id number], [id number], [id number] #### [facility] [address] [place] [address] Platelets (Bld) [#/Vol] 320.0 E9/L Normal 150.0-500.0 [facility] Comment on above: Performed By: #### 2 605645, 6979540, [id number] #### [facility] [address] [place] [address] RBC (Bld) [#/Vol] 3.5 E12/L Low 4.3-5.9 [facility] Comment on above: Performed By: #### 2 135153, 0660941, [id number] #### [facility] [address] [place] [address] WBC corrected for nucl RBC Auto (Bld) [#/Vol] 9.9 E9/L Normal 4.0-11.0 [facility] Comment on above: Performed By: #### 2 414052, 7077938, [id number] #### [facility] [address] [place] [address] Creatinineon 07-08-2020 Creatinine [Mass/Vol] 0.4 mg/dL Low 0.5-1.3 [facility] Comment on above: Performed By: #### 2 264281, 0664546, [id number] #### [facility] [address] [place] [address] Discharge Instructionson Discharge Instructions [id number]# 1.00CD:127 Normal [facility] FSPon 07-08-2020 Fibrin+Fibrinogen fragments (S) [Mass/Vol] <10 Normal <10 [facility] Comment on above: Performed By: #### 2 452947, 9651399, [id number] #### [facility] [address] [place] [address] Stainon 07-08-2020 FMHV 0 mL Invalid Interpretation Code [facility] Comment on above: Performed By: #### 2 375115, 7215578, [id number] #### [facility] [address] [place] [address] Negative Control Negative Normal [facility] Comment on above: Performed By: #### 2 402937, 1336745, [id number] #### [facility] [address] [place] [address] Fibrinogenon 07-08-2020 Fibrinogen Coag (PPP) [Mass/Vol] 451 mg/dL High 200-393 [facility] Comment on above: Performed By: #### 2 775911, 3617936, [id number] #### [facility] [address] [place] [address] Hep Func Panelon 07-08-2020 Bilirubin.indirect [Mass or moles/Vol] UT Abnormal 0.1-0.9 [facility] Comment on above: Result Comment: Resu lt verified by Discern Rule. Performed result UT (Unable to Calculate) was sent as an Alpha code due the inability to calculate a valid numeric value. Performed By: #### 2 672797, 4270395, [id number] #### [facility] [address] [place] [address] Albumin [Mass/Vol] 2.6 g/dL Low 3.3-5.0 [facility] Comment on above: Performed By: #### 2 655496, 7779518, [id number] #### [facility] [address] [place] [address] Albumin/Globulin (S) [Mass conc ratio] 0.8 Low 1.1-2.2 [facility] Comment on above: Performed By: #### 2 818932, 7701522, [id number] #### [facility] [address] [place] [address] ALP [Catalytic activity/Vol] 108 Int._Unit/L High 21-98 [facility] Comment on above: Performed By: #### 2 693256, 7308851, [id number] #### [facility] [address] [place] [address] ALT No additional P-5'-P [Catalytic activity/Vol] 13 Int._Unit/L Normal 6-46 [facility] Comment on above: Performed By: #### 2 909386, 6129194, [id number] #### [facility] [address] [place] [address] AST [Catalytic activity/Vol] 22 Int._Unit/L Normal 5-43 [facility] Comment on above: Performed By: #### 2 282075, 8323913, [id number] #### [facility] [address] [place] [address] Bilirubin [Mass/Vol] 0.4 mg/dL Normal 0.0-1.1 [facility] Comment on above: Performed By: #### 2 557217, 1830124, [id number] #### [facility] [address] [place] [address] Bilirubin.direct [Mass/Vol] mg/dL Normal 0.1-0.4 [facility] Comment on above: Performed By: #### 2 692152, 2896052, [id number] #### [facility] [address] [place] [address] Globulin (S) [Mass/Vol] 3.4 g/dL Normal 1.4-4.0 [facility] Comment on above: Performed By: #### 2 543333, 4346479, [id number] #### [facility] [address] [place] [address] Protein [Mass/Vol] 6.0 g/dL Normal 6.0-7.8 [facility] Comment on above: Performed By: #### 2 974005, 4020476, [id number] #### [facility] [address] [place] [address] Inpatient Clinical Summaryon 07-08-2020 Inpatient Clinical Summary [address] [address] Clinical Summary Person Information Name: MYA MYLES Ifeoma/[facility] Age: 30 Years : 1990 Sex: Female PCP: Chao Blackwell III, DO Marital Status: Single Race: White Ethnicity: Non- or Language: Tongan Visit Id: Visit Reason: Speciality: Acuity: Obs Enc Type: OB Triage Med Service: Obstetrics Arrival: 07/07/2020 19:39:51 Discharge: 07/08/2020 21:22:00 Dispo Type: Home (Routine DC) Address: [address] [place] [address] [address] [place] [phone] Provider Notes: Diagnosis: Problems Active Obesity complicating [...] up: With: Address: When: Funmilayo ESCOBEDO [address] [place], [place] [id number] [facility] () In 3 days 07/11/2020 Comments: Call Dr. Kramer office Saturday to see if she wants to see you sooner. If not keep appointment. Call for any problems. Call for severe abdominal pain Call physician for heavy vaginal bleeding (more content not included)... Normal [facility] Inpatient Patient Summaryon 07-08-2020 Inpatient Patient Summary [address] [address] Patient Discharge Instructions PERSON INFORMATION [...] TO THE NEAREST EMERGENCY ROOM OR CALL 1 Home Treatment: Devices/Equipment: Special Services: Additional Instructions: Physician to provide the following pending test results: Follow up: With: Address: When: Funmilayo ESCOBEDO [address] [place] [address] [employer] () In 3 days 07/11/2020 Comments: Call Dr. Kramer office Saturday morning to see if she wants to see [...] PM 07/14/2020 4:45 PM Confirmed [facility] [place] 07/21/2020 4:00 PM 07/21/2020 4:45 PM Confirmed [facility] SOV Saeid 07/21/2020 4:30 PM 07/21/2020 4:45 PM Confirmed [facility] SOV [place] 07/27/2020 2:45 PM 07/27/2020 3:00 PM Confirmed [facility] SOV [place] 08/02/2020 4:30 PM 08/02/2020 4:45 PM Confirmed [facility] BIENVENIDO Ste[place]man 09/15/2020 9:00 AM 09/15/2020 9:30 AM Confirmed [...] (38.9? C) or higher. Document Released: 05/03/2009 [employer]? Patient Information ?2009 [employer]. Labor and Information normally lasts 39?41 weeks. [...] or tightening. (more content not included)... Normal [facility] Lyteson 07-08-2020 Anion gap [Moles/Vol] 9 mmol/L Normal 6-16 [facility] Comment on above: Performed By: #### 2 047463, 0782361, [id number] #### [facility] [address] [place] [address] Chloride [Moles/Vol] 108 mmol/L Normal 101-111 [facility] Comment on above: Performed By: #### 2 903979, 6896255, [id number] #### [facility] [address] [place] [address] CO2 [Moles/Vol] 21 mmol/L Normal 21-31 [facility] Comment on above: Performed By: #### 2 220537, 6963085, [id number] #### [facility] [address] [place] [address] Potassium [Moles/Vol] 3.4 mmol/L Low 3.5-5.3 [facility] Comment on above: Performed By: #### 2 524703, 0078672, [id number] #### [facility] [address] [place] [address] Sodium [Moles/Vol] 135 mmol/L Normal 135-145 [facility] Comment on above: Performed By: #### 2 186688, 0326997, [id number] #### [facility] [address] [place] [address] PT & PTTon 07-08-2020 aPTT Coag (PPP) [Time] 25.4 second(s) Normal 25.1-36.5 [facility] Comment on above: Result Comment: Hepa rin therapeutic range (represented by Anti-Factor Xa activity of 0.2 - 0.4 U/mL) corresponds to PTT of 56.6 - 109.0 sec. Performed By: #### 2 017629, 3638862, [id number] #### [facility] [address] [place] [address] INR Coag (PPP) [Relative time] 1.0 {INR} Invalid Interpretation Code [facility] Comment on above: Result Comment: INR results are specifically intended to assess patients stabilized on long-term Anticoagulation therapy suggested INR?s ?Less Intensive Anticoagulation? 2.0 ? 3.0 Conventional Range 3.0 ? 4.5 Performed By: #### 2 269482, 9417998, [id number] #### [facility] [address] [place] [address] PT Coag (PPP) [Time] 12.2 second(s) Normal 10.2-12.9 [facility] Comment on above: Performed By: #### 2 481716, 3234836, [id number] #### [facility] [address] [place] [address] Uric Acidon 07-08-2020 Urate [Mass/Vol] 2.7 mg/dL Normal 2.2-7.4 [facility] Comment on above: Performed By: #### 2 201121, 8509604, [id number] #### [facility] [address] [place] [address] eGFRon 07-08-2020 GFR/1.73 sq M.predicted among blacks MDRD (S/P/Bld) [Vol rate/Area] mL/min/{1.73_m2} Normal >=59 [facility] Comment on above: Order Comment: Order Added by Discern Expert. Result Comment: eGFR is race adjusted. AA=. Performed By: #### 2 176724, 6621159, [id number] #### [facility] [address] [place] [address] GFR/1.73 sq M.predicted among non-blacks MDRD (S/P/Bld) [Vol rate/Area] mL/min/{1.73_m2} Normal >=59 [facility] Comment on above: Order Comment: Order Added by Discern Expert. Result Comment: Supervisor [employer] ramesh kidney disease could be indicated at eGFR's of less than 60 mL/min/1.73m2. Kidney failure is indicated at less than 15 mL/min/1.73m2. Performed By: #### 2 399359, 1343711, [id number] #### [facility] [address] [place] [address] AmniSureon 07-07-2020 PAMG-1 Protein Negative Normal Negative [facility] Comment on above: Performed By: #### 2 577431, 0043984, [id number] #### [facility] [address] [place] [address] PAMG-1 Protein Internal Control Positive Normal Positive [facility] Comment on above: Performed By: #### 2 537091, 3359670, [id number] #### [facility] [address] [place] [address] Consent for Treatmenton 06-19 Consent for Treatment [id number]# 1.00CD:127 Normal [facility] Consent for Treatment [id number] [id number]# 1.00CD:127 Normal [facility] FFNon 07-07-2020 Fibronectin. Ql (Vag fld) Negative Normal [facility] Comment on above: Result Comment: In S [...] the antibody-antigen reaction. Performed By: #### 2 125601, 8872364, [id number] #### [facility] [address] [place] [address] UA With Cult Reflexon 2020 Bacteria LM Ql (Urine sed) 1+ /HPF Abnormal Trace [facility] Comment on above: Performed By: #### 2 691150, 4985410, [id number] #### [facility] [address] [place] [address] Bilirubin Ql (U) Negative Normal Negative [facility] Comment on above: Performed By: #### 2 723776, 9703417, 262194736 #### [facility] [address] [place] [address] Clarity (U) CLEAR Normal Clear [facility] Comment on above: Performed By: #### 2 963861, 5074000, [id number] #### [facility] [address] [place] [address] Color (U) YELLOW Normal Yellow [facility] Comment on above: Performed By: #### 2 431212, 9325535, 166261539 #### [facility] [address] [place] [address] Epithelial cells.squamous LM.HPF (Urine sed) [#/Area] /[HPF] Normal 0-2 [facility] Comment on above: Performed By: #### 2 927094, 3176344, [id number] #### [facility] [address] [place] [address] Glucose Test strip (U) [Mass/Vol] Negative Normal Negative [facility] Comment on above: Performed By: #### 2 677870, 4029070, [id number] #### [facility] [address] [place] [address] Hemoglobin Ql (U) 2+ Abnormal Negative [facility] Comment on above: Performed By: #### 2 018259, 8561016, 299969228 #### [facility] [address] [place] [address] Ketones (U) [Mass/Vol] TRACE Abnormal Negative [facility] Comment on above: Performed By: #### 2 043123, 3107947, [id number] #### [facility] [address] [place] [address] Wisner.plasma/Wisner.R BC (Bld) [Mass ratio] >30 Abnormal 0-3 [facility] Comment on above: Performed By: #### 2 021426, 5738579, [id number] #### [facility] [address] [place] [address] Mucus Ql (Urine sed) TRACE Normal [facility] Comment on above: Performed By: #### 2 236879, 9063424, 791035781 #### [facility] [address] [place] [address] Nitrite Ql (U) Negative Normal Negative [facility] Comment on above: Performed By: #### 2 412373, 4672532, 924323594 #### [facility] [address] [place] [address] pH (U) 5.5 [pH] Invalid Interpretation Code 5.0-9.0 [facility] Comment on above: Performed By: #### 2 703957, 8213339, [id number] #### [facility] [address] [place] [address] Protein (U) [Mass/Vol] Negative Normal Negative [facility] Comment on above: Performed By: #### 2 323079, 6058772, [id number] #### [facility] [address] [place] [address] Specific gravity (U) [Rel density] 1.025 Invalid Interpretation Code 1.005-1.030 [facility] Comment on above: Performed By: #### 2 171404, 2974907, [id number] #### [facility] [address] [place] [address] Type of Urine collection method Clean Catch Normal [facility] Comment on above: Performed By: #### 2 917966, 9225800, 061306649 #### [facility] [address] [place] [address] Urobilinogen Qn (U) 0.2 {Henny'U}/dL Normal 0.0-1.0 [facility] Comment on above: Performed By: #### 2 480042, 6575465, [id number] #### [facility] [address] [place] [address] WBC Auto Ql (U) Negative Normal Negative [facility] Comment on above: Performed By: #### 2 650197, 5731361, [id number] #### [facility] [address] [place] [address] WBC LM.HPF (Urine sed) [#/Area] 0-5 Normal 0-5 [facility] Comment on above: Performed By: #### 2 933711, 4646796, [id number] #### [facility] [address] [place] [address] Ambulatory Clinical Summaryo n 07-06-2020 Ambulatory Clinical Summary {[id number]}CD:[id number] Normal [facility] Obstetrics Office/Clinic Not jasmine 07-06-2020 Obstetrics Office/Clinic Note Chief Complaint OB visit 34 weeks 6 days. Obstetric History History (1,0,0,2) # 1 Baby 1 Outcome Date: 2008 Outcome: Live Outcome or Result: Vaginal Gender: Female Gest Age: 41 weeks Wt: 3232 g [place] [facility] [place] Labor: -- Child's Name: -- Baby's [...] Stable. Ordered: Office Visit Level 3 Est 57360 TH 2. Obesity complicating , third trimester (O99.213: Obesity complicating , third trimester) Doing well managing weight gain. Ordered: Office Visit Level 3 Est 18408 TH 3. Supervision of high risk in third trimester (O09.93: Supervision of high risk , unspecified, third trimester) Follow up in 2 weeks for appt and growth US. PTL precautions until 37 wks. Ordered: Office Visit Level 3 Est 12289 TH 4. 34 weeks gestation of (Z3A.34: 34 weeks gestation of ) Ordered: Office Visit Level 3 Est 37382 TH Follow-up With When Contact Information [facility] In [address] [place] [address]- Additional Instructions: Problem List/Past Medical History Ongoing [...] Protein Urine Dipstick: Negative (07/06/20 14:59:00) Normal [facility] Comment on above: Result Comment: [...] Document Reviewed: 07/23/2008 ExitCare? Patient Information ?2013 [employer]. [facility] Follow Upon Follow Up Exam Date/Time: 06/23/2020 [...] Signed by: Yousif Toribio M.D. Transcribed by: ERMELINDA Technologist: ADEN Technical Comments CLIFFORD 08/11/20 CLIFFORD Obtained CLIFFORD by US GA 33w 0d History 3 Para 2 Transabdominal Ultrasound Performed Placenta Location posterior Placenta Grade 1 2 Positioning Vertex Amniotic Fluid Volume Normal Normal [facility] Consenton 06-24-2020 Consent [id number] .00CD:127 Normal [facility] Ambulatory Clinical Summaryo n 06-23-2020 Ambulatory Clinical Summary {[id number] -[id number]}CD:[id number] Normal [facility] Ambulatory Clinical Summary {[id number] -[id number]}CD:744643 Normal [facility] Obstetrics Office/Clinic Not jasmine 06-23-2020 Obstetrics Office/Clinic Note Chief Complaint OB 33w, baby moving, swelling in feet. Having heartburn for about two weeks. Obstetric History History (1,0,0,2) # 1 Baby 1 Outcome Date: 2008 Outcome: Live Outcome or Result: Vaginal Gender: Female Gest Age: 41 weeks Wt: 3232 g [place] [facility] [place] Labor: -- Child's Name: -- Baby's [...] trimester) Ordered: Office Visit Level 4 Est 71370 NC 2. Obesity complicating , third trimester (O99.213: Obesity complicating , third trimester) Ordered: Office Visit Level 4 Est 20855 NC 3. Depression during (O99.340: Other mental disorders complicating , unspecified trimester) Ordered: Office Visit Level 4 Est 10186 NC 4. 33 weeks gestation of (Z3A.33: 33 weeks gestation of ) Ordered: Office Visit Level 4 Est 12501 [place] Encounter for immunization (Z23: Encounter for immunization) Ordered: tetanus/diphtheria/pe rtussis, acel (Tdap), 0.5 mL, IntraMuscular, Once, Stop date 06/23/20 16:00:00 EDT, Routine, Start date 06/23/20 16:00:00 EDT EACH ADD'L [employer]building Draft[employer] Admin Component 97560 EACH ADD'L [employer] Admin Component 44514 FIRST VACCINE [employer] Admin Charge 03026 Orders: famotidine, 20 mg = 1 tab(s), Oral, BID, # 60 tab(s), Refills(s) 2, Pharmacy: [facility] #[id number], 157, cm, 06/23/20 15:10:00 EDT, Height/Length Dosing, 86.7, kg, 06/23/20 15:10:00 EDT, Weight Dosing Follow-up With When Contact Information LAURA MACEDO, Funmilayo Ryan In [address] [place] [address]- Additional Instructions: Problem List/Past Medical [...] Protein Urine Dipstick: Negative (06/23/20 15:09:00) Normal [facility] Comment on above: Result Comment: Elec tronically Signed By: LAURA MACEDO, Funmilayo Garner.rosey\Date and Time Signed: 06/23/20 15:40 EDT Patient [...] keep your urine pale yellow. ? Take jpoz-ftd-czcuswg and prescription medicines only as told by [...] Reviewed: 05/09/2017 Elsevier Patient Education ? 2019 [employer] First Stage of Labor Labor is [...] when you walk around or lie down ([place] Mahmood contractions). This is also called false [...] monitor strap (more content not included)... Normal [facility] Coding Summary.on 06-12-2020 Coding Summary. CD:[id number] G h0bWw+PGhlYWQ+AF8ZQSI sF23eqIWubZ1ZZ0zVLI6B LNXUEPMUGU9NGY0arKM7T DxyP9SqsiGy IcgsnNLaUF68LAo7XHI7h VgvJIaliU7yoKLvS0i1Ec EdDQ43rN38ESmzOWXkDuM 3LjZpbjsgbWFy S6rfTnUhmIEtDvx+PHRhY mxlIHdpZHRoPScxMDAlJy RplWvkDV8jDe4bXQVfBFD vbGxhcHNlOiBj q0dmHCStIJkmOS9fxUhmK 6GtvZD6HEFjy2v2Vl88xJ I+LOAfPKL9rMlyAOqzu78 4AcLtg4ggVTG2 jVAaZOhnVXT8Y28wt0G2Q PHjQQDrMXR3xSB8fG2ibC zdpxucU5ZtbEEaNvU4GUJ 8ySFvrV5eaFjp iidsdR7aWwe+U55EUZ1KI ZFZYS7YCch6E8OcWldvjV I+ZF13UCSfQF24dLGliBN jr5gfyCb1QlEp WPXkHQG9xQyfJOjgg9EzO GYdN27gsGNtr9O1AZOhnZ eugFFjDaWgoVY5yW7cAXh akdykw2iogomh Ktbqh2lnry97dQ80I46iG ErrEZKeXDE7TOIvRTPjhJ vhrx9pyI2uLj5+DTuwo6b sm1ieuRe7OfBq COZinmBkjLmqMBC3p4HwF w25S8QdgIjej6UeNtj6om 58mSFsb8M7wOF6PZaaZUM ktR2pCRltPcR4 AHGlNpHhgC37iNQfWXacU x9kyZzqpBajNC8sDJOufm kwZLCmvE1vCZKfmUFjyPb rPH4bYKJivorn w975EaBuDIK5KTRphOIuU 2TxtH1kLsEiLTIwJWCuC7 YmfMBvUNgkC549OOrtDiH 0FINhioBaN9Ds QKMzuZbcVhJ7y0M7Ls2Bp 9EhcnlpMZR7DPfvKJC0La N3EsEdNbS5F7HtSba1QRB zhCqfCZ8uV1Fl BGNdivclmxmexRR9GIQeB XUmwS45fBMaAOgzBl9wk6 X0h423RVMyFBPdmR34Wb0 udDogMTBwdCBU fC4cesdvs4pzcqagNiTsK FNdMEp7VQi4DWTjfZgfZn QyMSF2BpZ4ATB8qAQfdU9 arCihgpeohG5n Oyc+V38ynS4mNEE3MTC1s bcfLPPlmkZoKL08BE36R7 RyPjwvdGFibGU+PGRpdiB kcSyxZQ5vZzPk s7etr6VxICnsY6EqPNBgR OotKqo6OQFfHXX6fDK7jJ 1lPNSwOBpel3M8sLA9E9J dooZxpn5lf2cu AUZoVBvyD41szSZfl0I5P TCimCZ5IGJqdHduTzDkqB 93Oyc+CZRnqGnxj9AlTsk tp4yil0wziVv7 QjBpKUNlofWazAtwGKT2v 1JhJe14Z11tPWdjTZFxCR SlYWQyYTAxnMkvlv1rsY1 wIi8+PGNvbCB3 bCT4zQ1qDVTlXgB4NTcgK 807VwQnaVVsRbeec5cbz8 dpoAd7LxLfWSVpteVaqOy kMUZ3a5WoYg22 N94rRPokDXCsNXRlEYTaL QLejLfgeq6mnN1yIf7+PC 5yw6cxou66uX73lDM+PHR mTJN1yYqvOCrj IYQjpW7yZPrqEsI3PXMaG dIzgA48vRJdHEppXk5dxQ qnzCydDD0pSXTwhuskn38 3UnSah4fdDWXm aFAmKPukURP4Q23my2W3T OSnAREkPEX4bIV6jS1krV lnbjogbGVmdDsgdmVydGl oJUtcHTasN039 IHRvcDsnPlBhdGllbnQgT mCrRSm3F1KbSnx2ZEFyyL xsCO7awZZpJRdsXo1rxSv cvYywJN2iMIZi tzaja941IoVkb0opCIBra BBbDBdjDBT2N72kw5A0MT EfXUXbHHS5qCL3sY5vuSr nbjogbGVmdDsg hdUrqXgrIRzjUMquH845D HRvcDsnPkJpcnRoIERhdG U4UC99RU19bLTod0P3vTE 8O0JcYOPevhlc oazaoFZ7JTYtQJGhoQ43F p4qgWvkVg2yQGWkMMM3DE UvjFDaV7PvlN7qAfWxKTX zYLOcF5MtvOMd YNbrT216EJwaZzY3LXGup xXrY9IaZXOyuEevUdZ6d7 L3Wt3PS1G8DA37OF39fZA gn4L1eLK3S4Ca KKAahkrmsimueCG9BNMaZ UBiqQ89Ql5efCysEs3sYF AxQPY8SAPnhRLrD2ItkD4 yOiAjMDAwMDAw U9GioWLqCVbhG432KMffN iB6VGMqmcQwK1SwIGSajB ypIkO6t2C4Qr1JOPz5LI9 8NM55tXKjr9O9 rZI0F0DrCOHbqzhzqesol HS1ZNFdAJVesC62Rc2sfX bfLz8zICKdPZS8FDEngCR cK1BkxZ2mLmPa JGMjHPViR7JsuMArGImsH 582TQznYnL7TUErtmWcM7 DvURClvZsnXoX0u3Q8Ei9 MKMEwWQ74VYG8 tSB3MG84FP84F7RaSvjhv GFibGU+PHRhYmxlIHdpZH RoPScxMDAlJyBzdHlsZT0 bLh7tTJEdPGDq rOiavAPbOeOen2zwANSpI HzrHD6xqZjeM9GbxKS3RX Vsk6c9Rg97L82lZ9CggDK +NMUtjIT8pCV5 sU9xNzMtWoS6WLtnR843X qKgiPBdRecxy8dlr0nsoF l7HhD3HQWmcxQxxEaeRFT 4s5RjRh86G96m IHdpZHRoPSIxNSUiIHZhb Qzvwf2lqH5qQk0+PGNvbC D3eQQ1uB3bPsNbVgD2AWo rW458YoAtsTYa Dxuzu8uij9cqpGw3YyUrN ODagwCcrSnvTCM5y9VwRz 27W5JgpLzuf1QrVyj2je1 2uDWaj0G2oRS6 F6JxFNFlianuwITsqWzpL T9rTSAbkgboMFKveB1iAF MnA7n6McJbIbQ3TAthY0J jztR2CTArzXLp PWzqLZU5E80tx3Y7AKUiB YMiTIE8lAS1hM9ejRikom ogbGVmdDsgdmVydGljYWw oGSasE910STXe gLkfTSEizU3jZLLdgHAil HkaEK0nXUYtocliBjFHSv gTDw5yLGCELyNGH9DjPOt vdGQ+PHRkIHN0 nSmqKOolLAXsfC3oHQTcJ 8k7WcWwEgL5ZHlwP5QpTU CrudgsLv21bH8hTrMqXuO 4EFtwY7UgscP3 UJSuwYWbAXozDNJ6S14kk 3S9TIGcOXJnACX9vWN7xX 1hbGlnbjogbGVmdDsgdmV ydGljYWwtYWxp L513SVTrfEthNvP6DhNeE yT0WDV9H0RjKgl6XMQmpC pnVN2pzNLzSNmxZe9vuIv xrDzhAA3xZCCf spisWGZcqH4pUUGhwKBqn IhoNT8pRDGxbccvt851Li OnFHQ3OBLbzZDnG9FqnU4 yOiAjMDAwMDAw J7HiwTTiLYgkT850ZBlgN qB2XMOvbpEyX3HbPHIleL pxMnM6s7Q4Gf9bGPTWRNL yczwvdGQ+PHRk UDL7hQeqFVlpZDEjwQ8hF IIoN9e4VkWdXzM6TSalG3 GgMHNkswjhAz48xZ5bFlG vVaI8TSlgT7Vr sgF9WMHhmWCaQJgtVOP1C 89kk8N0UCTtOAGdGCU6gK V8yO6cwVgqqeltsJNeyYs gdmVydGljYWwt RDjvQ150DTDgdVpqUmVdq WFsZTwvdGQ+RVQmSHS8qU ibQTnmRULcrD0bUFLzD4d 2JnZaUmO8SSon Y0BiTVEqmsqlIb65zN1lM lKrJeJ4RCbnE9BsfyC0UB PiwUHxNLovPJF9R41hj4X 5HBJbRKDfHDW1 eQK6jP6uzLyfltnzpTLpx DsgdmVydGljYWwtYWxpZ2 37FEVvrYecDe42mQIyyVe lcfF9H2UbDtop dHI+VQ21YYSfEC74gJPua QEjh4sdkZx9KfXuXBLbXZ U7yLqoXFkbc0MpHZFaV20 moTKbs9V4MZZr bRzlmFIfSeObfOA5oT1nQ Osuptrnw3bnmrwzScznw8 hhpm24tK07Q28pFQqlHFT oPSIzMCUiIHZh ySuopm9hyO6xFz9+PGNvb QS6mSV3iP6tFjGoHyP2RS aaC346MjCovYRaJpqmw8y ot4vtnXk4UlEi GGMqniVbmVhtNHL1p4FkN e30J51bLJxhMTZhCRVlPK CaLMRopFzizn7mhX9aOn2 +[id number] sD79bZC+CGVeFQB9fWwjB NnjKQZhxO3qDNwdNyT3BO TzWhYlcU35pAAeZUdtHk3 lnItufHsvKA6t ZEGrxeams523RtAlx8lnM GOnzPYhFMvpFKG9M20vc2 K4HDMhXRHhZPW8cRF1oU1 hbGlnbjogbGVm dDsgdmVydGljYWwtYWxpZ 104BHSavApnAyNicWOhG1 almiASZE3yRnsjhOW+PHR qJXL6fEqnKEan UORtaA3lYACbM6m8XkHjX sA2IIcyG6HopbK6DXGggB UbKIZtyIDRuP9gpahsd9k vcjogIzAwMDAw FLe6ARd3NAVwyZhbXyQqQ JS6SaG0ZHK3qGTxvJ5zgD qyvnllwV7uArx+RklOOjw vdGQ+PHRkIHN0 jZunRNnfAQGkcF6zMLWpT 8h8YfBqGjS1COdyG4Ocmg S3VFZslVPzWEQhrTWYaN1 jqvqcj1zkdwvc LaKsOQRaIKs4XEr2DUFmw JtoAsCwNBR7QgQ2TZQ5lK DfqY8hjZhiswcslZ4cGoa +TVJOOjwvdGQ+ HTBtFLO1xFchOOeuTRLnh N6fAHTnN0p1WdJdEvI4GV koH8NkbmK1GGMijOVdZNL utQLEfD6barfm n4dfxtcqHoFgVOKfEYa6D Ie3WITvrPetXsXqBPI2To Y9SDZ3yLEpoX3gxRtnutk dnP7rUvk+UGF5 WKG4UM60LJ71R8PcFylhd GFibGU+PHRhYmxlIHdpZH RoPScxMDAlJyBzdHlsZT0 nQm6wXBXrHLKx bGxh (more content not included)... [facility] Coding Summary.on 06-09-2020 Coding Summary. CD:[id number]:[id number] G h0bWw+PGhlYWQ+BR0GNRB uY23zxJTuoS3BH7yLDV6F TURVNTBGCV2NNF2nnNT9A AboJ2SlbuMp MyuicKRrQL37NTd8NEA3q KmyQBxpjL6wtNIwQ9a3Yp DkJU69bJ28FAmlWXSpRyP 3LjZpbjsgbWFy Y7zpPzBwrQObFsw+PHRhY mxlIHdpZHRoPScxMDAlJy NhqXunUO2yDa0uFYXuFFU vbGxhcHNlOiBj y1tbNYVwKAaaFT2tfVbmO 1FkuOL7PFRrv4r1Fh30rW I+EKAxDBK8dJyqPNkdv04 0DyCiq1tgSSG0 gEPpNOirZSH1R08de9Z2G GPeBMVpIFU0eES8qW8xwW ghpipdO6NqfSGzMwG8JVT 6jPEilU2trYnm tkvqpJ7nPmy+H90QOE4GL NAWQC4GOpx7M6WrFssmfX I+FO63XRRhYY66zRAzdLD jc3bhxJl1XlIw CKZtCJK3fSggSBkxp0ZnD XEwK87mrFKdf1U7FOOhuL nmzJGwIeIkkVR4wG2vORm ljstyf1djolea Axkfu6kuey76vF56A60gM FnpBIFjCYN7QSDrOTAuiB cohw1zlP6lWp8+RZvjq5j se8jecWy4XnKy NPYfcmSxeNgtGLX5p4IrY x04Y4JxjLcqj2FgAeh3io 69zQNtx3A9eSY0IUpuMQX waM8kEIfdQpR2 AKQpWuEwyH31pDGkBYjsT y6kjHwgaKgaTV8fUOFjxh upXDDicN7iKZLdaFZlzFx wNN6dFRIvcmgn l319IaAhFYY6EKMgsNCsJ 1GifY2zFoKbSQPkWORhO7 NfyTGiKWviB415WDwoCeQ 7CYKvgvPpA1Kp HCWnlMqiWbG9t7D4Ap7Mv 4SebhxcNWB4CIxhYQX3Ki VsOkDoMhO3U4IuIdh7TIF jpEteTX6lK5Ua HXQrxobjyruxwYU4EFKkD YDqdG26lAWpLVyzPw3jl1 H1z929OZEqGWSceE77Ub7 udDogMTBwdCBU qR1clmuxq1nflrglMeXyU NEzPCp9PWq6QQLwiDsjVb MgHRP9JwL9XFZ9tWWbvL0 crCggznoszL7f Oyc+X89omF6kONG8ERW8g siaBQTnmhCbYC97RT11B3 RyPjwvdGFibGU+PGRpdiB onRvwMC0aDpNn m4gkv2HvGMbrO5OjHYZxG QuyYrj9TVDnPRE3hQF4tB 7hRDLkNGlux8R9uVT3E7J xuiJgdl2jd7rh QYEeXZbnP20xdNVfr9Q7Z NDwsUG3UUZviQzkOcHwxH 93Oyc+QHVhkLknz4PlHvj sv9iah3bdqDy9 LuUbMRNtljSmfQcvRUF9e 3JxRc59N95kUUomZFNfAO QxCGZxUCRysGsrbo6lgM0 wIi8+PGNvbCB3 hHH8xT7oIQBuDuU2RQmzS 009VqBzeGVjZsbar0aiv6 yozIe1VsQrSPAvdlWucBl tTQO7x3NtXd72 G13aWOdlEDBtQMEmXFPmH SZjgDzokz8rgY0wMy5+PC 7ru8oafr76nN85wJU+PHR tTUQ1eIuuROwr OHYjyG1aQEfhUcF1GEWlJ fDggR79sISiPGyhRk3qnL arpMnxEM1eQWCqhnbjj02 7UjXxd3ixBOQo lYVhQKwiYMA9U33qn9A6K MLdPWZqWCO4fZQ6fK6eyK lnbjogbGVmdDsgdmVydGl wWJidQMxpQ492 IHRvcDsnPlBhdGllbnQgT yLzHUt2L1GfSbh2YVRdzU xnRG4umZIjWOmzSp7kxEt knBocZC1lOFXn gpqsa064NsSsw3jmGMRqf RMaXZpcXDA2Q08yw9Z3JP YjCZSvAVZ9mSC9eF0egOl nbjogbGVmdDsg kyNqaJuqORsdFFlmV267G HRvcDsnPkJpcnRoIERhdG N8HG81WE53wWFcz5C5kYO 1E7BjMZOkvwzb tzgynTB5QBOgFRJmtN70H v3ykCojRz8aLLXcZGG6YO KypSKkI2YsdS7oYnTbJCF jJLWxA0SwbMMu XXmlZ829VFykSfW7ZCLgs cQnX5LcSLShuUejDqC6f4 J7Yg1AI1X9VI01NX70yZV rd8G4tLF7W3Pq ZHHsgdgqtyosjEB6ZWNiY YWmbL01Lr7ejGxvGa0vMO AwPDL9QCFnkZSpW4PchT6 yOiAjMDAwMDAw E9QclCSgERkuY188PEtpR xE8HWJagiBpW6ZqHLXnuW ddNuT2p5I0Nd1BCIo7XW2 9OF03mCGpz2K4 hHY4S6IlHCQyoetyuwybm SO4YQHsIYFznS47Nx6qzU exCg2vBTDpVOV0HHTtnUO kK7AvgP6bRtUd QSQpNUYpU4QtiKCsVRztT 663QGtgRlQ0CFBfymQsV0 OjVYZbvEtlLlK2o1D2Lj2 RVBAyNW56OYF8 gOL0QF50JM93B8XxOhbdr GFibGU+PHRhYmxlIHdpZH RoPScxMDAlJyBzdHlsZT0 aJk0zBWNwUMRu gWyzzKPqBmNby1fvFJZsB XnhST2isXojX3LxoNI8TR Ffz7s6Ht74J35yZ2RmjJD +CUMmaJB2hED6 wP5dMgNtZhV0QCtjM584V eKfmZAmKpuvv1xxw8jhoR e4IyC2WGDevkKttVucIDU 7s9GhJj95B65j IHdpZHRoPSIxNSUiIHZhb Zgjxq1euD8aEf9+PGNvbC I1eOV9wR7jTkYaYyZ8YGj vN640NuYzmGRw Yqkfn1hma6ycqYo1HcLaM CEdglPkeMitVIM4s9KvMs 28A4BxfCfij5DpMxe0mt0 5zHHrf4U8jVT3 E1YuXUJcfnbtyZKouHllP T5lOFTaegytXFJdoZ1pVX RoF9h5YdIeIjG5VIevW2Z osjO5CSEbkTHk PVofVPC7Z53fo8X0KZUjR SXpCHF5wTY3yS9mlChgqs ogbGVmdDsgdmVydGljYWw fKZjkV363OMWl tHmrBMUzmL4cMVSvcBUeb VxsVL0dTZNjcyhvHrCTPn eLMb3rZTFYYkQCV6IvVPc vdGQ+PHRkIHN0 fKbcKMyjVSEfhH7iXWIcD 3c9DmYmQqU0JOvpY3RhSQ SndqciGn40fR2lDvRrFaM 0XZqoV3GvrfE2 JMNcaFPwFNslVKU8H68hu 2T1DCJrXJRkJKI5jUW9qQ 1hbGlnbjogbGVmdDsgdmV ydGljYWwtYWxp G508LNKdpIyuFnS6MjBjL yW9SNE7J5ZvCbh8HVIzvQ ejBA5erSEtOWaxZn4ppEc bsBivAL3pWRYq nlwlIQOklT7qGAZpgWSiq QckXH2zECKmcjdsf499Xh ZmFGA0QXPcgOEgM5ThyL8 yOiAjMDAwMDAw P4EhmHWaKMveJ398WHueX nO4ICOhvvGuS3PmSOHrrL orXoX8i8I6Kg1hXAWHROE yczwvdGQ+PHRk IOD7bWrhHQnvTJEweH0kK PWmS4n2MyVoHvR3ZRinP7 EgNTUdloteFa26eY9cWuA mZvA4TKkgJ3Aj fmA2FHEpzIEsQRbdLUS6V 20jq2M5FPGqUAGaZNG2yJ F0bR8mgHgvsligtGDyqTb gdmVydGljYWwt MTblP354VTSrkQjoRfIwa WFsZTwvdGQ+UGFsTYP0uF msAQhjYUFmhD2kTEYtT9p 0XxTuBtW0UIet L1IjTMQiwxkaJa66nE2aK xQyHqO3KSebK1ZttgB3JV NtkMEmZYibCKI7W52tm0P 0UJXqPWBlEEM3 jCE6pL0cwFyhjscxsCBbj DsgdmVydGljYWwtYWxpZ2 69EPVohGdhDa91vTAaxMe xhgL6M7AfHjse dHI+DE33ODXbOR93cHQby GGwk6jwuMm6PdBxDVEqXE P7iZszZYbuq0GjXTIqP42 tmZSnf7S0BZCd tJguwFWfIjRvfOV8hG3nZ Wuqpjben6wmvnxeWckfr0 knnt23mS99O35oCBghPAE oPSIzMCUiIHZh vUzhkz7veN3iZe4+PGNvb GY2zFG1tU6nFyQqQpA6JR duZ435IhQxmQXqOntdv6l ta1qbqRw1JfUo AAGkwlZdiWbyYEW7b5ZgM r40Z58vUYvhQBYnMNPlMH CjFIMzsTuoza3ldT5iIc4 +ZW2sm1bpqw46 fS08oNY+FETgMIZ9rHxgQ JjpJMWmjM1vZEjvPpA0XE WaSrDpzQ45yWUzHJzqOr3 qaOtrmNtiQA0z RVXfjqfwr698TlKxs4gcM VUkiNWvOWgeTXD3E40hd6 E5HADvCBJrMOE8kXO5tQ5 hbGlnbjogbGVm dDsgdmVydGljYWwtYWxpZ 288HOXucHtsOhQgsRShF4 wjanAXJC6uUpcrrUI+PHR tNTP6gJlgOGdk HYAovM4aBBHxB1a2FxWeD mW2AJgaN2CnpyY5GTEelB DxWWGenLNYeS0yswqox2b vcjogIzAwMDAw XHg6RIb2XPTndYuoCiIiL LG8GnH1BTW1bHEcfX6gbZ kkfssefC0iKry+RklOOjw vdGQ+PHRkIHN0 nMbqWGmoSYGlsY4bEQZhM 5z0GuKwPtL8FEhpX4Pxfy X6EFRqzWOqNWUxbVZTfH1 rewypf9evxcsv NeCfMSXjWUd0GIt7EHNpr LydLkGwWII1VmN5HBS6jS UgvS5rkZyswmfmwJ9iFvv +TVJOOjwvdGQ+ QUVbCCS5cXdoKVqyLALze T1bTUWjO2v0MeFtQoH9AR xxO4UsopE3HFVyrCWfVRF isSBXwM3bmfdt m0jzmebxLuLbNHBfIKl1H Rk5YNVroKelMgDcMUP6Kw Q8KPM8aKRgmA7ryXvvmsm dhG3vNmf+UGF5 GCS9JZ37CW88B8BuJuzvb GFibGU+PHRhYmxlIHdpZH RoPScxMDAlJyBzdHlsZT0 kNc8fCKRuOUMj bGxh (more content not included)... Normal [facility] Capillary Glucose POCon 05-19 Glucose [Mass/Vol] 82 mg/dL Normal 55-99 [facility] Comment on above: Performed By: #### 2 [id number] #### [facility] [address] [place] [address] Consent for Treatmenton 05-19 Consent for Treatment [id number] .00CD:127 Normal [facility] Glu 1 Hron 06-03-2020 Glucose [Mass/Vol] 139 mg/dL Normal 55-180 [facility] Comment on above: Result Comment: POSI TIVE SCREEN = 1 HR > 140 mg/dL Performed By: #### 2 [id number] #### [facility] [address] [place] [address] Glu 2 Hron 06-03-2020 Glucose [Mass/Vol] 123 mg/dL Normal 55-155 [facility] Comment on above: Result Comment: DIAB ETES FASTING >126 mg/dL or 2 HOUR >200 mg/dL Performed By: #### 2 [id number], [id number], [id number] #### [facility] [address] [place] [address] Glu 3 Hron 06-03-2020 Glucose [Mass/Vol] 101 mg/dL Normal 55-140 [facility] Comment on above: Result Comment: GEST ATIONAL DIABETES 2 of the following: FASTING >95 mg/dL 1 HOUR >180 mg/dL 2 HOUR >155 mg/dL 3 HOUR >140 mg/dL Performed By: #### 2 829120 ####[facility] [address] [place] [address] Glu Fastingon 06-03-2020 Glucose [Mass/Vol] 83 mg/dL Normal 55-99 [facility] Comment on above: Performed By: #### 2 035506, 3142592, [id number] #### [facility] [address] [place] [address] Rubella Abon 06-03-2020 Rubella Ab Positive Normal Positive [facility] Comment on above: Performed By: #### 2 703405, 1304046, [id number] #### [facility] [address] [place] [address] ABO/Rhon 06-02-2020 ABO/Rh Positive Invalid Interpretation Code [facility] Comment on above: Performed By: #### 1 [id number], [id number] ####[facility] [address] [place] [address] ABSCon 06-02-2020 ABSC Gel Interp Negative Normal [facility] Comment on above: Performed By: #### 1 [id number], [id number] ####[facility] [address] [place] [address] CBC w/Indiceson 04-15-2021 Erythrocyte distribution width (RBC) [Ratio] 12.9 % Normal 10.9-14.2 [facility] Comment on above: Performed By: #### 2 449226, 4435576, [id number] #### [facility] [address] [place] [address] Hematocrit (Bld) [Volume fraction] 33.5 % Low 34.0-46.0 [facility] Comment on above: Performed By: #### 2 726279, 1033596, [id number] #### [facility] [address] [place] [address] Hemoglobin (Bld) [Mass/Vol] 11.2 g/dL Low 12.0-16.0 [facility] Comment on above: Performed By: #### 2 715823, 8399676, [id number] #### [facility] [address] [place] [address] MCH (RBC) [Entitic mass] 29.0 pg Normal 27.0-34.0 [facility] Comment on above: Performed By: #### 2 877915, 1434405, [id number] #### [facility] [address] [place] [address] MCHC (RBC) [Mass/Vol] 33.5 g/dL Normal 31.4-36.0 [facility] Comment on above: Performed By: #### 2 685320, 8741650, [id number] #### [facility] [address] [place] [address] MCV (RBC) [Entitic vol] 86.6 fL Normal 80.0-100.0 [facility] Comment on above: Performed By: #### 2 824401, 3239374, [id number] #### [facility] [address] [place] [address] Platelet mean volume (Bld) [Entitic vol] 7.6 fL Normal 6.4-10.8 [facility] Comment on above: Performed By: #### 2 103007, 3030697, [id number] #### [facility] [address] [place] [address] Platelets (Bld) [#/Vol] 284.0 E9/L Normal 150.0-500.0 [facility] Comment on above: Performed By: #### 2 949593, 3569871, [id number] #### [facility] [address] [place] [address] RBC (Bld) [#/Vol] 3.9 E12/L Low 4.3-5.9 [facility] Comment on above: Performed By: #### 2 413728, 2339238, [id number] #### [facility] [address] [place] [address] WBC corrected for nucl RBC Auto (Bld) [#/Vol] 9.4 E9/L Normal 4.0-11.0 [facility] Comment on above: Performed By: #### 2 543431, 7567642, [id number] #### [facility] [address] [place] [address] Consent for Treatmenton 05-19 Consent for Treatment [id number] 104 [id number] .00CD:127 Normal [facility] Gest Scr Glu 1 Hron 06-03-19 21 Glucose [Mass/Vol] 150 mg/dL High 55-140 [facility] Comment on above: Result Comment: Posi tive Screen =1 HR > 140mg/dL Performed By: #### 2 252625, 8695688, [id number] #### [facility] [address] [place] [address] Ambulatory Clinical Summaryo n 2020 Ambulatory Clinical Summary {[id number] -26-70}CD:[id number] Normal [facility] Obstetrics Office/Clinic Not jasmine 2020 Obstetrics Office/Clinic Note Chief Complaint OB 29w 5d, baby moving, patient doing 28 week labs done this Obstetric History History (1,0,0,2) # 1 Baby 1 Outcome Date: 2008 Outcome: Live Outcome or Result: Vaginal Gender: Female Gest Age: 41 weeks Wt: 3232 g [place] [facility] Labor: -- Child's Name: -- Baby's [...] Ordered. Mood now good. 28wk labs on Thurs. TdaP at next visit. General Exam: Constitutional: [...] trimester) Ordered: Office Visit Level 4 Est 08481 [facility] Follow Up US Follow Up 2. Obesity complicating , third trimester (O99.213: Obesity complicating , third trimester) Ordered: Office Visit Level 4 Est 09378 [facility] Follow Up Follow Up 3. Depression during (O99.340: Other mental disorders complicating , unspecified trimester) Ordered: Office Visit Level 4 Est 05047 [facility] Follow Up Follow Up 4. 29 weeks gestation of (Z3A.29: 29 weeks gestation of ) Ordered: Office Visit Level 4 Est 93213 [facility] Follow Up Follow Up Follow-up With When Contact Information Funmilayo ESCOBEDO MD In [address] [place] [address]- Additional Instructions: Problem List/Past Medical History Ongoing [...] Protein Urine Dipstick: Negative (05/31/20 14:25:00) Normal [facility] Comment on above: Result Comment: Elec tronically Signed By: LAURA MACEDO, Funmilayo Stallings\Date and Time Signed: 05/31/20 15:32 EDT Patient [...] including vitamins, herbs, eye drops, creams, and syek-xbt-bkyfvuj medicines. ? Any blood disorders you have. [...] This inform (more content not included)... Normal [facility] RAD - Ultrasound Reporton RAD - Ultrasound Report [id number]#1. 00CD:127 Normal [facility] Coding Summary.on 05-17-2020 Coding Summary. CODING DATE: 05/16/2020 FINAL [facility] STATUS: Home (Routine DC) PAYOR: Frost ADMIT DX: REASON FOR VISIT DX: O09.92 [...] Pitt CphT Date Saved: 05/16/2020 11:17 pm [facility] C Urineon 05-13-2020 Bacteria identified Cx Nom (U) Microbiology PROCEDURE: Urine Culture [R1] SOURCE: U Random BODY SITE: COLLECTED DATE/TIME: 05/11/2020 10:37 EDT RECEIVED DATE/TIME: 05/11/2020 19:08 EDT START DATE/TIME: 05/11/2020 19:08 EDT FREE TEXT SOURCE: Caroline HILARIO Stephanie FINAL REPORTS Final Report [] Verified Date/Time: 05/13/2020 08:25 EDT 4,000 cfu/ml Mixed skin contaminants Performing Locations R1: This test was performed at: [facility], [address] [place] [address], [address] , [place], Normal [facility] Comment on above: Performed By: #### 2 958176 ####[facility] [address] [place] [address] Ambulatory Clinical Summaryo n 05-11-2020 Ambulatory Clinical Summary {[id number] -f9-14}CD:[id number] Normal [facility] Obstetrics Office/Clinic Not jasmine 05-11-2020 [...] Age: 41 weeks Wt: 3232 g [facility] [facility] [place] [place] Labor: -- Child's Name: -- Baby's [...] CLIFFORD Calculations for this : No additional CLIFFODR calculations have been recorded for this History [...] far. Ordered: Office Visit Level 3 Est 47100 [place] 2. Depression during (O99.340: Other mental disorders complicating , unspecified trimester) Doing meditation. Ordered: Office Visit Level 3 Est 81944 [place] 3. Supervision of high risk in [...] 1 Hour Office Visit Level 3 Est 64752 [place] Urine Culture 4. 26 weeks gestation of (Z3A.26: 26 weeks gestation of ) Ordered: Office Visit Level 3 Est 67008 [place] Follow-up With When Contact Information [facility] In [address] [place] [address]- Additional Instructions: Problem List/Past Medical History Ongoing [...] Smokeless Toba (more content not included)... Normal [facility] Comment on above: Result Comment: [...] Petroleum jelly. ? 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 ? Hand orthopedic physical therapist. Health and safety ? Rectal thermometer. ? [...] ? Consumer Product Safety Commission: www.cpsc.gov ? [place] [employer]: www.healthychildren.o rg ? Safe [...] 01/17/2009 Document Revised: 01/17/2018 Document Reviewed: 12/25/2017 [employer] Patient Education ? 2019 [employer]. Normal [facility] Coding Summary.on 04-29-2020 Coding Summary. CODING DATE: 04/28/2020 FINAL [facility] STATUS: Home (Routine DC) PAYOR: Diamond [...] Pitt CphT Date Saved: 04/28/2020 10:33 pm [facility] Coding Summary.on 04-27-2020 Coding Summary. CODING DATE: 04/27/2020 FINAL [facility] STATUS: Home (Routine DC) PAYOR: Diamond [...] in slightly different terminology. Coded By: Vannesa Ptit CphT Date Saved: 04/27/2020 10:53 am [facility] Nursing Assessmenton 021 Nursing Assessment [id number]#1 .00CD:127 [facility] C Urineon 04-23-2020 Bacteria identified Cx [...] Locations R1: [facility], [address] [place] [address], [address] , , [facility] Comment on above: Performed By: #### 2 301176, 0293018, [id number] #### [facility] [address] [place] [address] Consent for Treatmenton Consent for Treatment [id number] .00CD:127 Normal [facility] Consent for Treatment [id number]#1 .00CD:127 Normal [facility] Discharge Instructionson Discharge Instructions [id number] .00CD:127 Normal [facility] Inpatient Clinical Summaryon 04-21-2020 Inpatient Clinical Summary [address] [address] Clinical Summary Person Information Name: MYA MYLES Ifeoma/[facility] Age: 29 Years : 1990 Sex: Female PCP: Chao Blackwell III, DO Marital Status: Single Race: White Ethnicity: Non- or Language: Tongan Visit Id: Visit Reason: Speciality: Acuity: Enc Type: OB Triage Med Service: Obstetrics Arrival: 04/21/2020 15:56:05 Discharge: 04/21/2020 17:47:48 Dispo Type: Home ([facility]) Address: [address] [place] [address] [address] [place] [phone] Provider Notes: Diagnosis: Problems Active Depression during [...] Follow up: With: Address: When: Funmilayo ESCOBEDO [employer] [place] [phone] Business (1) 05/12/2020 9:00 AM Comments: Call for any problems. Type Location Start [facility] 05/12/2020 9:00 AM 05/12/2020 9:15 AM Confirmed Patient Education Information: Normal [facility] Inpatient Patient Summaryon 04-21-2020 Inpatient Patient Summary [place] [id number] Patient Discharge Instructions PERSON INFORMATION Name: MYA [...] Address: When: Funmilayo ESCOBEDO [address] [place] [address] [employer] (1) 05/12/2020 9:00 AM Comments: Call for any problems. In the event that this physician does not participate in your insurance network, please consult with your insurance company to find a nearby participating provider. Type Location Start [employer] [facility] 05/12/2020 9:00 AM 05/12/2020 9:15 AM [...] Leaflets: You may receive a survey from [employer] asking you to rate your care experience. Your feedback is important and will help us understand what we do well and how we can improve the quality of care we provide to you, your loved ones and our community. It?s an honor to serve you. Thank you for choosing [facility] Normal [facility] Insurance Correspondence Off iceon 04-21-2020 Insurance Correspondence Office [id number]#1 .00CD:127 Normal [facility] RAD - Ultrasound Reporton RAD - Ultrasound Report [id number]#1 .00CD:127 Normal [facility] UA With Cult Reflexon 2020 Bacteria LM Ql (Urine sed) 1+ /HPF Abnormal Trace [facility] Comment on above: Performed By: #### 2 930040, 1332262, [id number] #### [facility] [address] [place] [address] Bilirubin Ql (U) Negative Normal Negative [facility] Comment on above: Performed By: #### 2 806204, 7403521, [id number] #### [facility] [address] [place] [address] Clarity (U) CLEAR Normal Clear [facility] Comment on above: Performed By: #### 2 902234, 1198049, [id number] #### [facility] [address] [place] [address] Color (U) YELLOW Normal Yellow [facility] Comment on above: Performed By: #### 2 982041, 8537463, [id number] #### [facility] [address] [place] [address] Epithelial cells.squamous LM.HPF (Urine sed) [#/Area] 3-4 Normal 0-2 [facility] Comment on above: Performed By: #### 2 786130, [id number], [id number] #### [facility] [address] [place] [address] Glucose Test strip (U) [Mass/Vol] Negative Normal Negative [facility] Comment on above: Performed By: #### 2 507108, 1350800, [id number] #### [facility] [address] [place] [address] Hemoglobin Ql (U) Negative Normal Negative [facility] Comment on above: Performed By: #### 2 361592, [id number], [id number] #### [facility] [address] [place] [address] Ketones (U) [Mass/Vol] 1+ Abnormal Negative [facility] Comment on above: Performed By: #### 2 093497, [id number], [id number] #### [facility] [address] [place] [address] Wisner.plasma/Wisner.R BC (Bld) [Mass ratio] 0-3 Normal 0-3 [facility] Comment on above: Performed By: #### 2 018708, 5635544, [id number] #### [facility] [address] [place] [address] Nitrite Ql (U) Negative Normal Negative [facility] Comment on above: Performed By: #### 2 956924, 4680885, [id number] #### [facility] [address] [place] [address] pH (U) 7.0 [pH] Invalid Interpretation Code 5.0-9.0 [facility] Comment on above: Performed By: #### 2 277025, [id number], [id number] #### [facility] [address] [place] [address] Protein (U) [Mass/Vol] Negative Normal Negative [facility] Comment on above: Performed By: #### 2 525473, 4065577, [id number] #### [facility] [address] [place] [address] Specific gravity (U) [Rel density] 1.010 Invalid Interpretation Code 1.005-1.030 [facility] Comment on above: Performed By: #### 2 100417, 3354785, [id number] #### [facility] [address] [place] [address] UA Spec Desc Clean Catch Normal [facility] Comment on above: Performed By: #### 2 728007, [id number], [id number] #### [facility] [address] [place], [place] [id number] Urobilinogen Qn (U) 0.2 {Henny'U}/dL Normal 0.0-1.0 [facility] Comment on above: Performed By: #### 2 211576, 6037389, [id number] #### [facility] [address] [place], [place] [address] WBC Auto Ql (U) 1+ Abnormal Negative [facility] Comment on above: Performed By: #### 2 705868, 7393350, [id number] #### [facility] [address] [place] [address] WBC LM.HPF (Urine sed) [#/Area] 0-5 Normal 0-5 [facility] Comment on above: Performed By: #### 2 021484, 6574510, [id number] #### [facility] [address] [place] [address] C Urineon 04-18-2020 Bacteria identified Cx Nom [...] Locations R1: This test was performed at: [facility], [address] [place] [address], [address]- , , [facility] Comment on above: Performed By: #### 2 [id number] ####[facility] [id number] [address] Obstetrics Office/Clinic Not jasmine 04-18-2020 Obstetrics Office/Clinic Note Chief Complaint OB 21w 5d, baby moving Obstetric History History (1,0,0,2) # 1 Baby 1 Outcome Date: 2008 Outcome: Live Outcome or Result: Vaginal Gender: Female Gest Age: 41 weeks Wt: 3232 g [place] [facility] [place] Labor: -- Child's Name: -- Baby's [...] trimester) Ordered: Office Visit Level 4 Est 97176 NC 2. Obesity complicating , second trimester (O99.212: Obesity complicating , second trimester) Ordered: Office Visit Level 4 Est 21292 [place] 3. 21 weeks gestation of (Z3A.21: 21 weeks gestation of ) Ordered: Office Visit Level 4 Est 12991 [place] 4. Depression during (O99.340: Other mental disorders complicating , unspecified trimester) Ordered: Office Visit Level 4 Est 78581 NC Follow-up With When Contact Information Funmilayo ESCOBEDO MD In [address] [place] [address]- Additional Instructions: Problem List/Past Medical History Ongoing [...] pts pharmacy. Spoke with pt. 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 Will repeat urine cx at next visit. Kendal Escobedo MD [facility] Comment on above: Result Comment: Elec tronically Signed By: LAURA MACEDO, Funmilayo Ryan\.br\Date and Time Signed: 04/18/20 18:12 EST C [...] Locations R1: This test was performed at: [facility], [address] [place] [address], [facility] , , [facility] Comment on above: Performed By: #### 2 [id number] ####[facility] [address] [place] [address] HIV Screen 4th Generation wR fxon 04-16-2020 HIV 1+2 Ab+HIV1 p24 Ag IA Ql Non-Reactive Invalid Interpretation Code Non Reactive [facility] Comment on above: Result Comment: Perf ormed at: [facility] [address] [id number] PhD Lanette Dunn Performed By: #### 2 [id number], [id number], [id number] #### [facility] [address] [place] [address] Hep Bs Agon 04-16-2020 HBV surface Ag IA Ql Negative Invalid Interpretation Code Negative [facility] Comment on above: Result Comment: Perf ormed at: CB [facility] [place] [address] [place], [place] [id number] PhD Lanette Dunn Performed By: #### 2 918385, [id number], [id number] #### [facility] [address] [place] [address] Coding Summary.on 04-15-2020 Coding Summary. CODING DATE: 04/15/2020 FINAL [facility] STATUS: Home (Routine DC) PAYOR: Diamond ADMIT DX: REASON FOR VISIT DX: O09.91 [...] CphT Date Saved: 04/15/2020 09:18 am Normal [facility] RPRon 04-15-2020 Reagin Ab RPR Ql (S) Non-Reactive Normal Non-Reactive [facility] Comment on above: Performed By: #### 9 [id number], [id number], [id number] ####[facility] [address] [place] [address] ABO/Rhon 04-14-2020 ABO/Rh Positive Invalid Interpretation Code [facility] Comment on above: Performed By: #### 2 [id number], [id number] #### [facility] [address] [place] [address] ABSCon 04-14-2020 ABSC Gel Interp Negative Normal [facility] Comment on above: Performed By: #### 2 [id number], [id number] #### [facility] [address] [place] [address] Ambulatory Clinical Summaryo n 04-14-2020 Ambulatory Clinical Summary {[id number] -03-14}CD:[id number] Normal [facility] Auto Diffon 04-14-2020 Basophils/100 WBC (Bld) 0.3 % Normal 0.0-2.0 [facility] Comment on above: Order Comment: Order Added by Discern Expert. Performed By: #### 2 066827, 1414909, [id number] #### [facility] [address] [place] [address] Basophils/Leukocytes Auto (Bld) [Pure # fraction] 0.0 E9/L Normal 0.0-0.2 [facility] Comment on above: Order Comment: Order Added by Discern Expert. Performed By: #### 2 107385, 0202038, [id number] #### [facility] [address] [place] [address] Eosinophils/100 WBC (Bld) 0.3 % Normal 0.0-8.0 [facility] Comment on above: Order Comment: Order Added by Discern Expert. Performed By: #### 2 243141, 6325628, [id number] #### [facility] [address] [place] [address] Eosinophils/Leukocytes Auto (Bld) [Pure # fraction] 0.0 E9/L Normal 0.0-0.5 [facility] Comment on above: Order Comment: Order Added by Discern Expert. Performed By: #### 2 456991, 5011896, [id number] #### [facility] [address] [place] [address] Lymphocytes/100 WBC (Bld) 19.1 % Normal 14.0-50.0 [facility] Comment on above: Order Comment: Order Added by Discern Expert. Performed By: #### 2 865603, 9293174, [id number] #### [facility] [address] [place] [address] Lymphocytes/Leukocytes Auto (Bld) [Pure # fraction] 1.4 E9/L Normal 1.0-4.0 [facility] Comment on above: Order Comment: Order Added by Discern Expert. Performed By: #### 2 721383, 8430497, [id number] #### [facility] [address] [place] [address] Monocytes/100 WBC (Bld) 6.4 % Normal 4.0-14.0 [facility] Comment on above: Order Comment: Order Added by Discern Expert. Performed By: #### 2 576813, 4468891, [id number] #### [facility] [address] [place] [address] Monocytes/Leukocytes Auto (Bld) [Pure # fraction] 0.5 E9/L Normal 0.2-1.0 [facility] Comment on above: Order Comment: Order Added by Idalia Expert. Performed By: #### 2 069799, 6026565, [id number] #### [facility] [address] [place] [address] Neutrophils/100 WBC (Bld) 73.9 % Normal 36.0-75.0 [facility] Comment on above: Order Comment: Order Added by Idalia Expert. Performed By: #### 2 773247, 8673106, [id number] #### [facility] [address] [place] [address] Neutrophils/Leukocytes Auto (Bld) [Pure # fraction] 5.3 E9/L Normal 2.0-7.5 [facility] Comment on above: Order Comment: Order Added by Idalia Expert. Performed By: #### 2 102969, 7713552, [id number] #### [facility] [address] [place] [address] BhCG Quanton 04-14-2020 [place] [address] m[IU]/mL High 1-3 [facility] Comment on above: Result Comment: GEST ATIONAL AGE HCG RANGE (mIU/mL) NON- <1-3 0.2-1 WEEKS 5-50 1-2 WEEKS 50-500 2-3 WEEKS 100-5,000 3-4 WEEKS 500-10,000 4-5 WEEKS 1,000-50,000 5-6 WEEKS 10,000-100,000 6-8 WEEKS 15,000-200,000 8-12 WEEKS 10,000-100,000 Performed By: #### 2 551849 #### [facility] [address] [place] [address] CBC w/ Auto Diffon Erythrocyte distribution width (RBC) [Ratio] 13.0 % Normal 10.9-14.2 [facility] Comment on above: Performed By: #### 2 111967, 7797288, [id number] #### [facility] [address] [place] [address] Hematocrit (Bld) [Volume fraction] 34.6 % Normal 34.0-46.0 [facility] Comment on above: Performed By: #### 2 650027, 8166753, [id number] #### [facility] [address] [place] [address] Hemoglobin (Bld) [Mass/Vol] 11.6 g/dL Low 12.0-16.0 [facility] Comment on above: Performed By: #### 2 263657, 8498415, [id number] #### [facility] [address] [place] [address] MCH (RBC) [Entitic mass] 29.8 pg Normal 27.0-34.0 [facility] Comment on above: Performed By: #### 2 967555, 1893672, [id number] #### [facility] [address] [place] [address] MCHC (RBC) [Mass/Vol] 33.4 g/dL Normal 31.4-36.0 [facility] Comment on above: Performed By: #### 2 879714, 5812683, [id number] #### [facility] [address] [place] [address] MCV (RBC) [Entitic vol] 89.2 fL Normal 80.0-100.0 [facility] Comment on above: Performed By: #### 2 937753, 8932876, [id number] #### [facility] [address] [place] [address] Platelet mean volume (Bld) [Entitic vol] 7.8 fL Normal 6.4-10.8 [facility] Comment on above: Performed By: #### 2 231078, 2221985, [id number] #### [facility] [address] [place] [address] Platelets (Bld) [#/Vol] 326.0 E9/L Normal 150.0-500.0 [facility] Comment on above: Performed By: #### 2 320015, 5239557, [id number] #### [facility] [address] [place] [address] RBC (Bld) [#/Vol] 3.9 E12/L Low 4.3-5.9 [facility] Comment on above: Performed By: #### 2 725505, 5953612, [id number] #### [facility] [address] [place] [address] WBC corrected for nucl RBC Auto (Bld) [#/Vol] 7.2 E9/L Normal 4.0-11.0 [facility] Comment on above: Performed By: #### 2 800741, 7447007, [id number] #### [facility] [address] [place] [address] Consent for Treatmenton 03-22 Consent for Treatment [id number] .00CD:127 Normal [facility] FpwM3hpt 04-14-2020 HbA1c (Bld) [Mass fraction] 4.8 % Normal <=5.9 [facility] Comment on above: Performed By: #### 2 320873, 5093894, [id number] #### [facility] [address] [place] [address] Patient Educationon 04-14-19 21 Patient Education How a Baby Grows [...] Document Reviewed: 07/23/2008 ExitCare? Patient Information ?2013 [employer]. Obstetrics and Gynecology Eating Plan for Women [...] your (t (more content not included)... Normal [facility] U Drug Screenon 04-14-2020 Amphetamines Screen method >1000 ng/mL Ql (U) Negative Normal Negative [facility] Comment on above: Result Comment: Nega tive Cutoff: <1000 ng/mL Performed By: #### 2 736069 #### [facility] [address] [place] [address] Barbiturates Screen Ql (U) Negative Normal Negative [facility] Comment on above: Result Comment: Nega tive Cutoff: <200 ng/mL Performed By: #### 2 945360 #### [facility] [address] [place] [address] Benzodiazepines Ql (U) Negative Normal Negative [facility] Comment on above: Result Comment: Nega tive Cutoff: <200 ng/mL Performed By: #### 2 693112 #### [facility] [address] [place] [address] Cocaine Ql (U) Negative Normal Negative [facility] Comment on above: Result Comment: Nega tive Cutoff: <300 ng/mL Performed By: #### 2 727889 #### [facility] [address] [place] [address] Opiates Screen Ql (U) Negative Normal Negative [facility] Comment on above: Result Comment: Nega tive Cutoff: <300 ng/mL Performed By: #### 2 981216 #### [facility] [address] [place] [address] Phencyclidine Screen method >25 ng/mL Ql (U) Negative Normal Negative [facility] Comment on above: Result Comment: Nega tive Cutoff: <25 ng/mL These drug screen results are to be used for medical (i.e., treatment) purposes only. Unconfirmed drug screening results must not be used for non-medical purposes (e.g., employment testing, legal testing). Performed By: #### 2 131882 #### [facility] [address] [place] [address] Tetrahydrocannabinol Screen method >50 ng/mL Ql (U) Negative Normal Negative [facility] Comment on above: Result Comment: Nega tive Cutoff: <50 ng/mL Performed By: #### 2 376275 #### [facility] [address] [place] [address] RAD - Ultrasound Reporton RAD - Ultrasound Report [id number] .00CD:127 Normal [facility] Lab Reportson 03-14-2020 Lab Reports [id number] .00CD:127 Normal [facility] Ambulatory Clinical Summaryo n 02-29-2020 Ambulatory Clinical Summary {[id number] -[id number]-98}CD:[id number] Normal [facility] Ambulatory Clinical Summary {[id number] -73-bd}CD:413843 [facility] Obstetrics Office/Clinic Not jasmine 02-29-2020 Obstetrics Office/Clinic Note Chief Complaint OB 15w 2d, feeling flutters, occ. [place] Obstetric History History (1,0,0,2) # 1 Baby 1 Outcome Date: 2008 Outcome: Live Outcome or Result: Vaginal Gender: Female Gest Age: 41 weeks Wt: 3232 g [place] [facility] [place] Labor: -- Child's Name: -- Baby's [...] * Note: EGA calculated as of 02/29/2020 CLIFOFRD: 08/20/2020 EGA*: 15 weeks 2 days Type: [...] RTC 4 wks. Has anatomy US with MFM on 03/22. Discussed weight gain and exercise in . 1. Supervision of high risk in second trimester (O09.92: Supervision of high risk , unspecified, second trimester) Ordered: Office Visit Level 4 Est 77454 TH 2. Obesity complicating , second trimester (O99.212: Obesity complicating , second trimester) Ordered: Office Visit Level 4 Est 44334 TH 3. 15 weeks gestation of (Z3A.15: 15 weeks gestation of ) Ordered: Office Visit Level 4 Est 77042 TH Follow-up With When Contact Information Funmilayo ESCOBEDO MD In [address] [place] [address]- Additional Instructions: Problem List/Past Medical [...] Protein Urine Dipstick: Negative (02/29/20 15:46:00) Normal [facility] Comment on above: Result Comment: [...] Document Reviewed: 05/19/2009 ExitCare? Patient Information ?2013 [facility], [facility]. [facility] Medicine How a Baby Grows During begins [...] flex an (more content not included)... Normal [facility] Physician Referralon 021 Physician Referral [id number] .00CD:127 Normal [facility] RAD - Ultrasound Reporton RAD - Ultrasound Report [id number] .00CD:127 Normal [facility] Physician Referralon 020 Physician Referral [id number] .00CD:127 Normal [facility] Physician Referralon 020 Physician Referral [id number] .00CD:127 Normal [facility] Chlamydia/Gonococcus, NAAon 01-30-2020 C. trachomatis rRNA KAIDEN+probe Ql (Unsp spec) Negative Invalid Interpretation Code Negative [facility] Comment on above: Performed By: #### 2 503772, 8803477, [id number] #### [facility] [address] [place] [address] N. gonorrhoeae rRNA KAIDEN+probe Ql (Unsp spec) Negative Invalid Interpretation Code Negative [facility] Comment on above: Result Comment: Perf ormed at: =G [facility] [place] [address] [place], [place] [id number] MD Kehinde Rivero Performed By: #### 2 877690, 3222228, [id number] #### [facility] [address] [place] [address] Coding Summary.on 01-29-2020 Coding Summary. CODING DATE: 01/29/2020 FINAL [facility] STATUS: Home (Routine DC) PAYOR: Self [...] Garcia Date Saved: 01/29/2020 01:52 pm Normal [facility] Ambulatory Clinical Summaryo n 01-27-2020 Ambulatory Clinical Summary {[id number] -[id number]}CD:[id number] Jerardo Gonzales [facility] Obstetrics Office/Clinic Not jasmine 01-27-2020 Obstetrics Office/Clinic Note Chief Complaint 1st OB 10 Weeks 4 days. Some Nausea. Obstetric History History (1,0,0,2) # 1 Baby 1 Outcome Date: 2008 Outcome: Live Outcome or Result: Vaginal Gender: Female Gest Age: 41 weeks Wt: 3232 g [place] [facility] [place] Labor: -- Child's Name: -- Baby's [...] smoking, alcohol, or drug use. Last pap 2--18, NILM. 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 Review of Systems Constitutional: No fever, No [...] genetic testin (more content not included)... Normal [facility] Comment on above: Result Comment: [...] Document Reviewed: 07/23/2008 ExitCare? Patient Information ?2013 [employer]. Normal [facility] January 27, 2020 MYA MYLES [address] [place] [address] [place] [address] MYA MYLES 1990 Our patient Mya Myles is with a single IUP. EDC is 08/20/[address] [address] [facility] Coding Summary.on 01-22-2020 Coding Summary. CODING DATE: 01/22/2020 FINAL [facility] STATUS: Home (Routine DC) PAYOR: Self [...] Gloria Fleming Date Saved: 01/22/2020 08:46 am [facility] US 1st Trimesteron 01-11-2020 1st Trimester Exam Date/Time: [...] corresponding gestational age +/- 1 week are: [place] Rump Length: 1.8 cm Composite Ultrasound Age: [...] Transabdominal Ultrasound Performed Size = Dates Normal [facility] Ambulatory Clinical Summaryo n 01-07-2020 Ambulatory Clinical Summary {[id number] -79-56}CD:[id number] Normal [facility] Ambulatory Clinical Summaryo n 01-06-2020 Ambulatory Clinical Summary {[id number] -[id number]}CD:[id number] [facility]2020 HCG.beta subunit Qn 114262 m[IU]/mL High 1-3 [facility] Comment on above: Result Comment: GEST ATIONAL AGE HCG RANGE (mIU/mL) NON- <1-3 0.2-1 WEEKS 5-50 1-2 WEEKS 50-500 2-3 WEEKS 100-5,000 3-4 WEEKS 500-10,000 4-5 WEEKS 1,000-50,000 5-6 WEEKS 10,000-100,000 6-8 WEEKS 15,000-200,000 8-12 WEEKS 10,000-100,000 Performed By: #### 2 585507, 5878976, [id number] #### [facility] [address] [place] [address] Consent for Treatmenton 12-19 Consent for Treatment [id number] .00CD:127 Normal [facility] Gynecology Office/Clinic Not jasmine 01-06-2020 Gynecology Office/Clinic Note Chief Complaint Confirmation of , Nausea Some Vomitting. Has had Dark pink Spotting, First OB paper work added . Obstetric History History (1,0,0,2) # 1 Baby 1 Outcome Date: 2008 Outcome: Live Outcome or Result: Vaginal Gender: Female Gest Age: 41 weeks Wt: 3232 g [place] [facility] [place] Labor: -- Child's Name: -- Baby's [...] order subsequent US. Plan to refer to [facility] d/t hx child with congenital lymphedema. [...] test, result positive) Ordered: HCG, Urine POC 34860 Follow-up No qualifying data available Problem List/Past [...] Results HCG, Urine: Positive (01/06/20 09:31:00) Normal [facility] Comment on above: Result Comment: Elec tronically Signed By: Caroline HILARIO\.rosey\Date and Time Signed: 01/06/20 10:17 EST Progesteroneon 01-06-2020 Progesterone [Mass/Vol] 18.00 ng/mL Invalid Interpretation Code [facility] Comment on above: Result Comment: REFE RENCE RANGE Males 0.14-2.06 ng/mL Non- Females Follicular 0.10-0.60 ng/mL Luteal 3.00-17.5 ng/mL Midluteal 3.30-18.6 ng/mL Post-Menopausal 0.10-0.40 ng/mL First Trimester 8.30-66.5 ng/mL Second Trimester 18.9-66.1 ng/mL Third Trimester 35.8-312.4 ng/mL Performed By: #### 2 230398, [id number], [id number] #### [facility] [address] [place] [address] Coding Summary.on 12-14-2019 Coding Summary. CODING DATE: 12/14/2019 FINAL [facility] STATUS: Home (Routine DC) PAYOR: Self [...] Garcia Date Saved: 12/14/2019 02:13 pm Normal [facility] ED Note-Physicianon 12-14-19 ED Note-Physician Basic Information Time Seen: Kate MESA, Gege Lechuga 12/13/2019 19:14 Chief Complaint pt to ED with c/o consuming plastic from a burger at [employer] today. pt is . denies complaints History of Present Illness This patient presents emergency department after ingesting some type of plastic while eating a sandwich at [employer]. She states she was at [employer] restaurant. She bit down on something hard [...] Blackwell In 3 days 12/16/2019 EDT [address] [facility] [place] [address]- Business (1) Additional Instructions: Patient Education Swallowed Foreign Body, Adult, Oszu-ui-Mrqq Problem List/Past Medical History Ongoing Ovarian cyst Historical Medications Inpatient No active inpatient medications Home Bactroban 2% Cream, 1 ced, Topical, TID [place] 325 mg-5 mg oral tablet, 1 tab(s), Oral, q4hr, PRN Allergies No Known Allergies Social History Alcohol - Denies Alcohol Use, 11/21/2009 Substance Abuse - Denies Substance Abuse, 11/21/2009 Tobacco - Denies Tobacco Use, 11/21/2009 Family History Diabetes mellitus type 2: Mother and Father. Hypertension: Mother and Father. Lab Results No qualifying data available. Diagnostic Results No qualifying data available. Normal [facility] Comment on above: Result Comment: Elec tronically Signed By: Gege Love PA-C\.br\Date and Time Signed: 12/13/19 19:34 EDT\.br\Electronically Co-Signed By: Ed Jerome MD\.br\Date and Time Co-Signed: 12/14/19 05:14 EDT Consent for Treatmenton 11-19 Consent for Treatment [id number] .00CD:127 Normal [facility] Discharge Instructionson Discharge Instructions [id number]# 1.00CD:127 Normal [facility] ED Clinical Summaryon 2019 ED Clinical Summary [facility] [address] [place], [place] [address] ED Clinical Summary Person Information Name: MYA MYLES [facility] Age: 29 Years : 1990 Sex: Female Language: Tongan PCP: Chao Blackwell III, DO Marital Status: [...] 12/13/2019 19:44:03 12/13/2019 19:44:03 12/13/2019 19:44:03 ADDRESS: [address] [place] [address] [address] [place] [id number] PHYS DOC NOTES: MEDICAL INFORMATION: Prescriptions Given: Medications to Continue with No Changes Other Medications acetaminophen-hydroco done ([place] 325 mg-5 mg oral tablet) 1 Tablets By Mouth every 4 hours as needed for pain. Refills: 0. mupirocin topical (Bactroban 2% Cream) 1 Application Topical 3 times a day. Refills: 0. PATIENT EDUCATION INFORMATION: Instructions: Swallowed Foreign Body, Adult, Oopx-mh-Jlau Follow up: With: Address: When: Chao Blackwell [address] [place] [address], [place] [phone] Business (1) In 3 days 12/16/2019 DIAGNOSIS: 1:Ingestion of foreign body Normal [facility] ED Patient Education Noteon 12-13-2019 ED Patient [...] Document Reviewed: 05/22/2011 ExitCare? Patient Information ?2014 [employer]. This information is not intended to replace advice given to you by your health care provider. Make sure you discuss any questions you have with your health care provider. Normal [facility] ED Patient Summaryon 020 ED Patient Summary [address] [address] Patient Discharge Instructions Person Information Name: MYA MYLES Age: 29 Years Arrival Date: 12/13/2019 18:29:24 Discharge Diagnosis: 1:Ingestion of foreign body Primary Care Physician: Chao Blackwell III, DO Provider Information Primary Provider: [employer] Collector:None The exam and treatment you received in the Emergency Department were for an urgent problem and are not intended as complete care. It is important that you follow up with a doctor, nurse practitioner, or physician?s medical assistant supervisor for ongoing care. If your symptoms become worse or you do not improve as expected and you are unable to reach your usual health care provider, you should return to the Emergency Department. We are available 24 hours a day. MYA MYLES has been given the following list of patient education materials, prescriptions and follow-up instructions: Follow-up Instructions: With: Address: When: Chao Blackwell [address] [place] [address], [place] [address] Business (1) In 3 days 12/16/2019 In the event that this physician does not participate in your insurance network, please consult with your insurance company to find a nearby participating provider. Patient Education Materials: Swallowed Foreign Body, Adult, Utwe-sb-Ggya A MESSAGE TO ALL PATIENTS REGARDING OPIOIDS PRESCRIPTION OPIOIDS: WHAT YOU NEED TO KNOW Prescription opioids can be used to help relieve kwvpwsld-if-pxvyzi pain and are often prescribed following a [...] be struggling with addiction, tell your health adult care provider and ask for guidance or call [facility] National Helpline at 0-245-688-UKLN. (more content not included)... [facility] Encounters Encounter Date Encounter Type Care Provider Facility Start: 10-24-2023 End: 10-24-2023 ambulatory ROCK HARRISON Not Available Start: 10-08-2023 End: 10-08-2023 ambulatory [facility] Start: 09-09-2023 End: 09-09-2023 ambulatory LORNA BAEZA Not Available Start: 09-06-2023 End: 09-06-2023 ambulatory [facility] Start: 08-12-2023 End: 08-12-2023 ambulatory ROCK HARRISON Not Available Start: 07-30-2023 End: 07-30-2023 ambulatory LADONNA KYARAASHLEY Not Available Start: 07-08-2023 End: 07-08-2023 ambulatory ROCK HARRISON Not Available Start: 06-07-2023 End: 06-07-2023 ambulatory ROCK HARRISON Not Available Start: 05-17-2022 End: 05-18-[address] IRENE ZUÑIGA Facility:[facility] Start: 05-16-2022 End: 05-16-[address] ROCK HARRISON . Facility:[facility] Start: 02-16-2020 End: 02-16-2020 Subsequent hospital visit by physician Najma Hilliard Work Phone: [phone] Plan of Treatment Date Care Activity Detail Author Start: 10-20-2019 Influenza vaccination Flu vaccine (# 1) [facility] [place] Payers Date Payer Category Payer Unknown [id number] 1992 Unknown [id number] 2.16.84 [id number] 1992 Unknown [id number] 2.16.84 [id number] 1992 Unknown [id number] 2.16.8 [id number] 1992 Unknown [id number] 2.16.8 40.1.180900.3.579.2.1286 1992 Unknown [id number] 2.16.8 40.1.597336.3.579.2.128 1992 Unknown [id number] 2.16.84 0.1.615635.3.579.2.9 1992 Unknown [id number] 2.16.84 0.1.477421.3.579.2.9 1992 Unknown [id number] 2.16.84 0.1.939714.3.579.2.9 1992 Unknown [id number] 2.16.84 0.1.683986.3.579.2.1258 1992 Unknown [id number] 2.16.84 0.1.560836.3.579.2.9 1992 Unknown [id number] 2.16.84 [id number] 1959 Unknown [id number] Social History Date Type Detail Facility Tobacco smoking status NHIS Unknown if ev er smoked [place], [place] Sex Assigned At Not on file [place] Discharge summary note 08-16-2020 Note Date [...] of an 8 pound 7 ounce female with Apgars of 8 and 9, nuchal cord reduced x1, secondary lobe on the placenta noted, otherwise without complications. Course: Without complications. Sukhdeep Schaffer MD, [facility] Dictated: 08/13/2020 #[id number] Typed: 08/15/2020 #[id number] cc: Sukhdeep Schaffer MD, [facility] Comment on above: Result Comment: Elec tronically Signed By: Karime MACEDO, Sukhdeep Olivera\.br\Date and Time Signed: 08/16/20 08:09 EDT Clinical Note 08-05-2020 Note Date & Type Note Facility 08-05-2020 Note The following Patien t Education Materials have been given to the patient: [facility] History and physical note 08-04-2020 Note Date [...] Attention deficit hyperactivity disorder / SNOMED CT 5683989646 / Confirmed Chronic fatigue syndrome / SNOMED CT 97020265 / Confirmed Depression during / SNOMED CT 9316243625 / Confirmed Insomnia / SNOMED CT 570192903 / Confirmed Obesity / ICD-9-CM 278.00 / Possible Obesity complicating , third trimester / SNOMED CT 5128923634 / Confirmed Ovarian cyst / SNOMED CT 172345081 / Confirmed / SNOMED CT 792939850 / Confirmed labor / Patient Care / Confirmed Supervision of high risk in third trimester / SNOMED CT 27030436 / Confirmed Histories History History (1,0,0,2) # 1 Baby 1 Outcome Date: 2008 Outcome: Live Outcome or Result: Vaginal Gender: Female Gest Age: 41 weeks Wt: 3232 g [place] [facility] [place] Labor: -- Child's Name: -- Baby's [...] Use (11/21/2009) DENIES 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 Home/Environment Lives with Children, Significant other. [...] hearing, Oral mu (more content not included)... [facility] Comment on above: Result Comment: Elec tronically Signed By: LAURA MACEDO, Funmilayo Ryan\.rosey\Date and Time Signed: 08/04/20 13:03 EDT Clinical Note 07-31-2020 Note Date & Type Note Facility 07-31-2020 Note The following Patien t Education Materials have been given to the patient: [facility] Clinical Note 07-26-2020 Note Date & Type Note Facility 07-26-2020 Note The following Patien t Education Materials have been given to the patient: [facility] History and physical note 07-11-2020 Note [...] for further cervical progression. [facility] MD, [facility] Dictated: 07/08/2020 #[id number] Typed 07/08/2020 #[id number] cc: Sukhdeep Schaffer MD, [facility]OG [facility] Comment on above: Result Comment: Elec tronically Signed By: Karime MACEDO, Sukhdeep Olivera\.br\Date and Time Signed: 07/11/20 07:40 EDT Clinical Note 07-08-2020 Note Date & Type Note Facility 07-08-2020 Note The following Patien t Education Materials have been given to the patient[facility] 04-21-2020 Note Date & Type Note Facility 04-21-2020 Note The following Patien t Education Materials have been given to the patient: [facility] Purpose Family History No Family History Records FoundNo Family History Records FoundNo Family History Records FoundNo Family History Records Found Advance Directives No Advanced Directives Records FoundNo Advanced Directives Records FoundNo Advanced Directives Records FoundNo Advanced Directives Records Found Additional Source Comments INFORMATION SOURCE (unrecogn ized section and content) DATE CREATED AUTHOR 09/15/2020 [facility] DATE CREATED AUTHOR AUTHOR'S ORGANIZ ATION 06/29/2022 [facility] DATE CREATED AUTHOR AUTHOR'S ORGANIZ ATION 10/10/2023 [facility] DATE CREATED AUTHOR AUTHOR'S ORGANIZ ATION 10/26/2023 [facility] EPIC FOR RECORDS PERTAINING TO PATIENTS [...] BE BASED ON THE PRIMARY CLINICAL RECORDS. [employer] provides no warranty or guarantee of the accuracy or completeness of information in this document.
== END 2023-11-18 14:56 | disposition home or self-care (01) ==
LOC: NOMS 14:55
PROVIDERS: Visit Provider Obstetrics & Gynecology
DX: Z34.93 Encounter for supervision of normal pregnancy, unspecified, third trimester (principal); Z3A.30 30 weeks gestation of pregnancy
CPT/HCPCS: 76816

== ENCOUNTER 2023-12-10 07:09 | Outpatient (OUT) | payer BC, SELFPAY ==
--- OUTSIDE RECORDS SUMMARY | 2023-12-09 07:00 | XMS_ITS | CCD ---
Author Organization [facility] Care Team Providers Care Service Rig Operator Name Role Phone Unavailable Primary Care Provider Unavailabl e CHRISTY ., DR WILKERSON Admitting Unavailable CHRISTY ., DR WIKLERSON Attending Unavailable CHRISTY ., DR WILKERSON Consulting Unavailable MOUNT AIRY, DR IRENE Dee Consulting Unavailable CHRISTY ., DR WILKERSON Attending Unavailable CHRISTY ., DR WILKERSON Admitting Unavailable CHRISTY ., DR WILKERSON Consulting Unavailable CHRISTY, DEVEN Attending Unavailable LADONNA CEBALLOS Attending Unavailable CHRISTY, DEVEN Attending Unavailable ARYANCATHERINE Attending Unavailable CHRISTY, DEVEN Attending Unavailable CHRISTY, DEVEN Attending Unavailable ARYAN, CATHERINE Attending Unavailable Unavailable Primary Care Provider Unavailabl e Unavailable Primary Care Provider Unavailabl e CHRISTY, DEVEN R Referring Unavailable MORY RYAN Attending Unavailable CHARLOTTE VELASCO Referring Unavail able CHRISTY, DEVEN R Referring Unavailable MARINA MARTINEZ Attending Unavailable CHRISTY, DEVEN R Referring Unavailable ALYSIA LEE Attending Unavailable CHRISTY, DEVEN R Referring Unavailable Medications Current Medications Medication Drug Class(es) Dates Sig (Normalized) Sig (Original) aspirin 81 mg delayed release oral tablet (4 sources) Platelet Aggregation Inhibitor, Nonsteroidal Anti-inflammatory Drug End: 11-27-2023 take 1 tablet by mouth in the morning aspirin 81 mg Take 1 tablet (81 mg total) by mouth in the morning. Active cephalexin 500 mg oral capsule (1 source) Cephalosporin Antibacterial Start: 11-27-2023 End: 12-04-2023 take 1 capsule by mouth in the morning, then take 1 capsule by mouth in the evening, then take 1 capsule by mouth at bedtime cephalexin (Keflex) 500 MG capsule Indications: Dysuria Take 1 capsule (500 mg) by mouth in the morning and 1 capsule (500 mg) in the evening and 1 capsule (500 mg) before bedtime. Do all this for 7 days. 21 capsule 11/27/2023 12/04/2023 Active [id number] acid ( 19) 29 mg iron- 1 mg tablet,chewable (2 sources) [id number] acid ( 19) 29 mg iron- 1 mg tablet,chewable Chew 1 tablet and swallow in the morning. Active Vit-Fe Fumarate-FA ( Vitamin Plus Low Iron) 27-1 MG tablet (2 sources) take 1 tablet by mouth once daily Vit-Fe Fumarate-FA ( Vitamin Plus Low Iron) 27-1 MG tablet Take 1 each by mouth 1 (one) time each day at the same time Active Vit-Fe Fumarate-FA ( Vitamins) 28-0.8 MG tablet (2 sources) Start: 07-08-2023 End: 07-07-2024 take 1 tablet by mouth once daily Vit-Fe Fumarate-FA ( Vitamins) 28-0.8 MG tablet Indications: First trimester Take 1 tablet by mouth Daily 30 tablet 11 07/08/2023 07/07/2024 Active Completed/Discontinued Medications Medication Drug Class(es) Dates Sig (Normalized) Sig (Original) clindamycin 10 mg/ml topical lotion (2 sources) Lincosamide Antibacterial Start: 07-30-2023 End: 11-27-2023 clindamycin (Cleocin T) 1 % lotion Indications: Acne vulgaris Apply to face in the morning/30 day supply 60 mL 11 07/30/2023 11/27/2023 Discontinued ferrous sulfate (2 sources) End: 11-27-2023 take 1 tablet by mouth in the morning Ferrous Sulfate (IRON PO) Take 1 tablet by mouth in the morning. 11/27/2023 Discontinued take 1 tablet by mouth in the mo rning Ferrous Sulfate (IRON PO) Take 1 tablet by mouth in the morning. Active hydrocortisone 25 mg/ml topical cream (2 sources) Corticosteroid Start: 07-30-2023 End: 11-27-2023 hydrocortisone 2.5 % cream Indications: Other atopic dermatitis Apply thin layer to affected areas bid prn for flares, hold when clear/30 days 60 g 3 07/30/2023 11/27/2023 Discontinued Problems Active Problems Problem Classification Problem Date Documented Date Episodic/Chronic Abdominal pain (1 source) Pelvic and perineal pain; Translations: [PELVIC AND PERINEAL PAIN] Onset: 05-23-2022 Episodic Attention-deficit, conduct, and disruptive behavior disorders (1 source) Attention-deficit hyperactivity disorder, unspecified type; Translations: [Attention-deficit hyperactivity disorder, unspecified type] Onset: 09-06-2023 Chronic Attention-deficit, conduct, and disruptive behavior disorders (1 source) Attention deficit hyperactivity disorder Onset: 09-06-2023 Chronic Genitourinary symptoms and ill-defined conditions (1 source) Dysuria; Translations: [Dysuria] 11-27-2023 Episodic Immunizations and screening for infectious disease (1 source) Encounter for screening for human papillomavirus (HPV); Translations: [ENC SCREENING HUMAN PAPILLOMAVIRUS] Onset: 05-23-2022 Episodic Other complications of (1 source) Maternal obesity complicating , childbirth and the puerperium, antepartum; Translations: [Obesity complicating , second trimester] 12-04-2023 Chronic Other complications of (1 source) Obesity complicating , unspecified trimester; Translations: [Obesity complicating , unspecified trimester] Onset: 09-06-2023 Chronic Other complications of (1 source) Obesity complicating , second trimester; Translations: [Obesity complicating , second trimester] Onset: 09-06-2023 Chronic Other diseases of veins and lymphatics (1 source) Lymphedema, not elsewhere classified; Translations: [Lymphedema, not elsewhere classified] Onset: 09-06-2023 Chronic Other nutritional; endocrine; and metabolic disorders (1 source) Obesity, unspecified; Translations: [Obesity, unspecified] Onset: 09-06-2023 Chronic Other and delivery including normal (1 source) Third trimester ; Translations: [Encounter for supervision of normal , unspecified, third trimester] 11-27-2023 Episodic Other screening for suspected conditions (not mental disorders or infectious disease) (7 sources) Encounter for screening for malignant neoplasm of cervix; Translations: [Encounter for other screening follow-up] Onset: 05-17-2022 Episodic Ovarian cyst (1 source) Other ovarian cyst, right side; Translations: [OTHER OVARIAN CYST RIGHT SIDE] Onset: 05-23-2022 Episodic Polyhydramnios and other problems of amniotic cavity (4 sources) Polyhydramnios with problem; Translations: [Polyhydramnios, unspecified trimester, not applicable or unspecified] Onset: 12-04-2023 12-04-2023 Episodic Residual codes; unclassified (1 source) Gestation period, 32 weeks; Translations: [32 weeks gestation of ] 11-27-2023 Episodic Unclassified (1 source) 1st daughter born with Primary Lymphadema and Abdominal Lym Onset: 09-06-2023 Past or Other Problems Problem Classification Problem Date Documented Da te Episodic/Chronic Hemorrhage during ; abruptio placenta; placenta previa (1 source) Low lying placenta NOS or without hemorrhage, unspecified trimester; Translations: [Low lying placenta nos or without hemorrhage, unspecified trimester] Onset: 09-06-2023 Episodic Other and unspecified benign neoplasm (1 [...] , unspecified, second trimester] Onset: 09-06-2023 Episodic Residual codes; unclassified (1 source) Family history of other congenital malformations, deformations and chromosomal abnormalities; Translations: [Family history of other congenital malformations, deformations and chromosomal abnormalities] Onset: 09-06-2023 Episodic Residual codes; unclassified (1 source) 20 weeks gestation of ; Translations: [20 weeks gestation of ] Onset: 09-06-2023 Episodic NEGATED: Highlighted row has been ruled out!Unclassified (2 sources) No known active problems 07-30-2023 Results Test Name Value Interpretation Reference Range Facility Glucose random or fasting- P OCTon 12-04-2023 External Glucose Fasting Or Random (Fbs) 126 [facility] POCT Hemoglobin A1con 2023 HbA1c (Bld) [Mass fraction] 5.1 % 4 - 7 % [facility] Urinalysis macro (dipstick) panel (U)on 11-27-2023 Bilirubin, UA Negative Negative - 4(70) +++ mg/dL [facility] Blood, UA Negative Negative - 50 [place]/mcL [facility] Clarity, UA Cloudy [facility] Color, UA Yellow [facility] Glucose, UA Negative Negative - 2000(110) ++++ mg/dL [facility] Interpretation and review of laboratory results Normal [facility] Ketones, UA Negative Negative - 160(16) ++++ mg/dL [facility] Leukocytes, UA Negative Negative - 500+++ [place]/mcL [facility] Nitrite, UA Negative Negative - Positive [facility] pH, UA 7.0 5 - 9 [facility] Protein, UA Negative Negative - 2000(20) ++++ mg/dL [facility] Spec Grav, UA 1.025 1 - 1.03 [facility] Urobilinogen, UA 0.2 0.2 - 12 mg/dL [facility] PAP ACOG PANEL 2: 21 to 29on 05-24-2022 . . Normal [facility] Comment on above: Performed By: #### [id number] #### [facility] [address] [place] [address] Dr. Michael Garrett Age Gdln ACOG Testing - [facility] Comment on above: Performed By: #### [id number] #### [facility] [address] [address] [address] Michael Garrett DIAGNOSIS: Comment [facility] Comment on above: Result Comment: NEGA TIVE FOR INTRAEPITHELIAL LESION OR MALIGNANCY. CELLULAR CHANGES ASSOCIATED WITH INFLAMMATION ARE PRESENT. Performed By: #### [id number] #### [facility] [address] [address] [address] Michael Garrett Methodology: Comment [facility] Comment on above: Result Comment: This liquid based ThinPrep(R) pap test was screened with the use of an image guided system. Performed By: #### [id number] #### [facility] [address] [place] [address] Dr. Michael Garrett Note: Comment [facility] Comment on above: Result Comment: The Pap smear is a screening test designed to aid in the detection of premalignant and malignant conditions of the uterine cervix. It is not a diagnostic procedure and should not be used as the sole means of detecting cervical cancer. Both false-positive and false-negative reports do occur. . Performed By: #### [id number] #### [facility] [address] [place] [address] Dr. Michael Garrett Performed by: Comment Normal [facility] Comment on above: Result Comment: Francisco Otero, Napper Tender (ASCP) Performed By: #### [id number] #### [facility] [address] [place] [address] Dr. Michael Garrett Reflex Criteria: Comment Normal [facility] Comment on above: Result Comment: The HPV DNA reflex criteria were not met with this specimen result therefore, no HPV testing was performed. . Performed By: #### [id number] #### [facility] [address] [place] [address] Dr. Michael Garrett Specimen adequacy: Comment Normal [facility] Comment on above: Result Comment: Sati sfactory for evaluation. Endocervical and/or squamous metaplastic cells (endocervical component) are present. Performed By: #### [id number] #### [facility] [address] [place] [address] Dr. Michael Garrtet US PELVIS AND TRANSVAGon US PELVIS AND [...] by: IRENE ZUÑIGA Date: 2022-05-18 07:45 Normal [facility] Nursing Assessmenton 021 Nursing Assessment [id number] #[id number]:127 Normal [facility] Coding Summary.on 08-16-2020 Coding Summary. [id number] Gh0bWw+PGhlYWQ+PE1FV BZbJ08ulDAwnW4XX7rDW B0JUJUJCXBGSF2PJS2gs PL6ZSvaV7PtkkSr MlotmUOwIV86GXu0QXV0 iLccOUhglH3imPGrP4t0 PiWfQO59nN02SPhoSCIu CrQ4HiNbxhdcqUVm J9syPrJdyFDrYde+PHRh YmxlIHdpZHRoPScxMDAl EdDoaKnpKN6aXm6mQBLh LWNvbGxhcHNlOiBj s6ajLGDjRTwqTT1izBhu Y6EegHA0GXOhq9p4Ha44 dHI+SDIjTGT3lNgzRVvg g763WoThl6ogJLP5 jNDrLPexHUL5K46dh1Y0 XUOxHVReWQJ7pYW9xN6f jQxtagyeM5DxtLZqSfM5 WJG0jIWocT3dpMha zdednK4lLfk+Q60DLQ5E UEEYIB0WQbs0O0JkPojp dHI+FP45CHJbBE25lMPe jHVcn4osnVp2BiGb RFZaUXY2jOlsQLqrm1Tb HPBpR38paGSyd8I1YXKz dHcsvXVuXaCvdAL5uK3r UEvuzgfdh7wnfizi Ydsuo9ftro83uH04A61i SLecHJBhGSN8CBPcEVGk aBtkxr8waN3hZp2+IDxj x8nxo9vlgCq6FaYk RVEiizMlfQlwWAO5r5Yw Jc12D5JqtWpow4YoSpm0 nv25sBDrr4Y2rZA9ZZti GGDplE8mVVniZxR1 BXUkDzAgiB75bXUeGHte Td8jhVvytDraLU1sDMSt gvmiYHQvcQ5xCSCgmROf nGkbNA1eTBJqldwm a376WqJaIPY6CIWhrPCy X3HhjU6dSvJwITFvXCHb J4RwgYZdGOroH105UTev AeG8YOVnoqMrN3Sr CQHeqMejFeI6o8C6Hx1A m7AlifpnFCC8XCypHWI8 PsE6CvQpDjF8F3TaSxm9 HXIefJkaSY8hX7Hr EGKqdrjyiblutSX2UKHj TEBjbZ87nKGqZPduBi8u k3L0i875YUTjNBTspG51 Pa9kbTztZRLbuWKE wI8slrsxa9acppohWxGz YROgYYm4KPu9VPUzlAdf MdYkHNW2AhM4SCX3kRQy tS9mwFexbixehS5a Oyc+G63ovH8kMUE0DWU3 zvgxOCYekjIcPM41OP46 Q8IzXrrykTYbgRJ+PGRp qfCcyUkyNU5cHgVi v6lqe6RlJTwlN8YgGHRi HGimFzk3YMHzTIP1iWN4 bI1nSCSfFAocf7N5eIS8 F0SjjoXauf0uw6li MAOtABrvZ45ojYIod3X0 GKGxcKF5JOFnkFfdXwNf hX63Hjn+GNSgcExwv7Yc Mtytn4gbh5sclDd1 IjMwJSIgdmFsaWduPSJ0 i1SgPz00F01wFFoxFMZl IFQaDBCrMNBcpBajej4q iS6cRk4+PGNvbCB3 bGC3gP5aBXTwVqM0HXjb O141QcPetKXbQoylc9xa r2worLl2FmSjZOHsokDy fTjaMVN5r0RkUy90 X56hBVtqODSnRZTwJVBz HXTxkJkeqd1veM7oRv2+ HF4qw4ydsw85tA28gNW+ WUToWWW7iIneAKqn ONFepA1mLObsZjY6FAEb KeJccZ31wLCzBDzoNb9o fIzktQahMP9lGUEdjhog u916MwLpc8pkFXDl fBZcZMgnBEG8G10rj1X5 ZSQgKKStYZU8vMZ4qA0s bGlnbjogbGVmdDsgdmVy uTchFJyvPLcxG985 IHRvcDsnPlBhdGllbnQg KiSlUHd6S2JdVkj4HLRf ePnxHB3njHJmVBzuNd5i iLdipHowZD8bYNAj pnsav862IrKkz9bqNPJq mEZyKNnbKOX1C80nk7Q7 EKPrFCBnIGW6rMF2kB8n bGlnbjogbGVmdDsg swYoaQuaJOrxXZbgZ353 IHRvcDsnPkJpcnRoIERh fAL3YD68MV34jISlu6D8 gVN4E3LlEEZhdxbm bghqsPF7GMXwSNOryO37 Qk4hyAkoCs8kTVGtVCM2 VUUtwWDrX1HgaM8xEmCo PRNxVONuB8IxbGXq WQgrH791BKbvBlJ4BYJz hjFvI0PvGEZvbZcjUgZ6 b7O5Wa3AF5F7PR14XD77 lSWic7N5dNJ6I4Mt CANruxbetudlrQL6HTLn QNFjeN33If7bpVdvMy2w RUBjCKJ3VNPuyMRrY5Ff rB0pPePiVUPhDLSw B4PcwAByGDotW669DKpr YvX7YXLzqcMiQ0PuGCQu lJhvTlD1q5U1Fg3QNOe8 VH60MB26rUXue4L0 nWF5U3OaBFMkovebrvkq hJT7GNDrKRFavN19Zd8x sNfeOx9tPHNyYIF3IQYc wVGoD0QdhD8vEcBs JHWkIYVnA4SlyTCpSMsn J548MEeoPjI1SBKpkgKe B0VtUFBldUjuMlT6e1P8 Ur0BFWRxZI15RRR6 uKU9AJ04KV44V7WbMznf dGFibGU+PHRhYmxlIHdp ZHRoPScxMDAlJyBzdHls MS6fVa9yAVPxSRJp fLnogIHrSsJxx2enDHMm PKueAL6hzEmfV1OjdOS0 QHDzh4d7Zx14V95zI8Zx dXA+ZOOojYS2fNO5 pV4rWzOvPmM3MKfnE678 VyAizRZqPlbkt4eki1mm cEj2ZuJ4HNHisnYwcSyn FNN4q2EdLy66N32o IHdpZHRoPSIxNSUiIHZh yFgnsa1ojQ1jQq3+PGNv dIT8vUX4dR6pHqFfPqU0 NQksP297UvObaCQo Pzzys6xjw2xqiBx1YbSe BEBofaOstLplCLD7k4Yx Pw28W4NytMtpf0AbKwv6 lz71kBPaz2I1oFP7 Z4DnDPYvkjicpQVuySnr DY1dLKDgvzmlTNVjpH8o SMYiF0z3OpZxZjQ6IWzk V7DnhqH9UARaeMJe HAjuHDE5O88pw0V8MWTx TVCeIHP7pRB6vA1iyBal bjogbGVmdDsgdmVydGlj ASatLSssU611TEIb wQswPVFluL8pSSHqyBHp hVtwYX4dIWUlopliWtXB KzkXMh4wQZTBOuUQN0Ng TDwvdGQ+PHRkIHN0 dTkpBQvyIUZfxB0bLHZn K5d6ZjGoQcD4FLbgF4Ho OWCwhitaRv52lE1rSfBs CuJ3YWssD2RhsxD0 VQZaaHRjMBjfGCX5P33v x8Z2VJMmXQRhWBT1zFS2 kV6klZhtgwofwPSaeFxg dmVydGljYWwtYWxp F417DUBkkBohGhO2NkSl XuM9CSR5D0SeFnf1HFGg rUzwRK6brBBeZMxjAh5n jJmqlWmyML9rUHOd slczAOKamS6tNIVicIZv iRngNP8wYYKqkxvli946 DmZtTDW1FDSlcAGxS3If tA8xWnPlTZVlDXLt W7FuuVOeNTuzA039ZRvx OvC0ANCzvmMsW5TeNONc tSxrOyS8a9K0Er2eAQAS ZWFyczwvdGQ+PHRk FTP5zYgbYGleRGRzfO9f KPShW6y8TmOjPsO8JOdo S4AnIOLmtgsuOj40wQ9a CzFcCwZ4NKvmP6Wh evN4UVMhyWNoITxmDKP5 P46wl0T8HXLcBYCjRXF7 nAK5hX8jwSncyqxkbHGi dDsgdmVydGljYWwt SSjdX000EYOyfZlrQwXg bWFsZTwvdGQ+PHRkIHN0 vQcbARrzFIKwsL6iXGRt M3c6RmBsXfV0KPxw P1KvDZNhvkjnAc66cN7v CoJfOgM0MKpuH8ZoldD3 OIUsdJAqWXxsUTF2E49w v6P1HIEgRQQoNZE2 mTJ5zU0jcLsmfsclnQXv dDsgdmVydGljYWwtYWxp Y649XOVzzHewRr05lJBa rNgmkbS7G7RbSild dHI+EJ93AYStIZ68tALe iRRoo9jbsMt3GuCiVJOm HLS9dQkiUAidj9WgLRVe S22hqWPkf1A7ZIMl hOtoqTSbDrVzwDS3qX3u XKyffvkup4wnhtemWyvf g4zuio77gJ67I25zMGrz ZHRoPSIzMCUiIHZh dAigsh9taT0hHd0+PGNv aSI8aJV5pE9lEtIqJrE3 XJctC834HvCrhIPwEskn i7dpz0zifMb5TkUi DLHpksFfnYkmVWL0z7St Hx46W00cJXmyCRNsDLAc ZVYaPFPbuMppct4xsP3d Ii8+NK3oj5qoqf35 bV27sPE+FQSjXQZ3oNad GGpcAIBkjC2cHTduRzG8 YHLhSzKdjY91iNRtUQok Mo5hkSqdaNiiTJ8c BPMhtutad266VdCoa0yu STYjiQQhSBvhTZS3T10r p8A2UXFpXUIlVPA0qVR1 zM9xgWperhydyGAh dDsgdmVydGljYWwtYWxp W734NXOfoBsqKtPwcDFh T4eyxnBJVN4uEgjsxTC+ DTLmAGG0lYvaYUyx CZGwqJ9uWCGxU1o6YeHk EbB7JStfJ9QxpzV1GDTz vHLxASDbjHSVpT4htewt g4jpothqNzJcUKKx JZr0XGm0PRQbsPnmNyVm SLD7YcC0SHS5kOOzmP2y oRcgsbhmeA0lUiw+RklO OjwvdGQ+PHRkIHN0 aOudTHwsQTLxdJ5oBKFs G1f0BjVvLeC8GDutO1Va fiE4QVLbpJYzXHXonRNU eE3rorblz7rsgeac HyRjWPKfGWj7LUf3XPZx cPzoFpHfYQC7RdV2FQY8 oOFotR3sdQoqouezxX2z Oyc+TVJOOjwvdGQ+ BZKbVCR9hQlrJCeoNRCb pO2cRGPuU7g4FpGmLuK6 QTutD4GwhqK2UGBvpIQl ESEupQXGaN2fiylj a6uvojetYbDlRBByYEk3 MYt6EVBqsAmuOoRnJEI1 IcL7UZO5hQKixH5vlKut jgcbfA7bSwr+UGF5 UJZ9OT99GD38G5YeAyzl dGFibGU+PHRhYmxlIHdp ZHRoPScxMDAlJyBzdHls CE8eAh1iKCJfTOLa bGxh (more content not included)... [facility] Coding Summary.on 08-15-2020 Coding Summary. [id number] Gh0bWw+PGhlYWQ+PE1FV MGvW31guRElyJ7AO3fZD M1ZDQSUERVERH1YNF6ew LL3ZJjtN0AgjuLw PlpjgRKwTN21CRz0TLK4 kQnhRBrplM4rdJXeU1k0 SwCjQP73fN18INjgQLFe WtU1GmFefoxovTPr P6hiZfMtmAObZbs+PHRh YmxlIHdpZHRoPScxMDAl DiHfdLxpFM1zWa2tSRTb LWNvbGxhcHNlOiBj t4lzGXOqUHffPB4lhWfw G1SrtDM1RHDms9f9Cx79 dHI+LRJfSBI7pSrkVOni t089VuJhj2vhIIZ0 bRHvKGkeFHT1X65iq9V4 NFUvTVTmCIM4cGA4zD6t yFgiqxbaB3NcfJDaPvO5 LWS7gJZawM4nyZjc dynjnQ4tCqv+T98MSS0Y ARAHES0UTxy1H8QrQqkf dHI+TV67ALHeJF04hUQg oVLuy6kouKy5BvBq MVTpAIY1iMwoDDxmf7Ta WJNhB70fvVMez3C1RCGc mEzjnYEcFgFyxAK8xU0o ZUtncxvcj0tmqqyf Xvsgx1cjjf35uV58Q59w ZRumETWhFAS5AVPkMTKh iPripr1cvS5qUt0+IDxj f9vjc4rnsYg5AyCs UOQhmjGydQnqYNC3q1Uj Cv23W5NfmVvfj9YxSha6 yt70vSTmo3X5yWC4NQcw TKCitP3tQMjkSbQ4 HMChUiWbcH17rZSiBDqv Qw7wdGlrtNaeVQ2pJVTc zvcsVUOxuP4uUMGpyNBf jAchSQ3cMLXsbvmu i212SuYzZPG6PIYgxWVm O9UfuK6iCuTzUGAaMIVz N0FoxNIrDVdzQ393VGja KtC6SEQpoaGsZ7Nt WQBaaEnoUiR3e9L1Xo4Y u8SvcansDRB4ZTbeYHV3 OsK3DaBwKkE8R1XtAzw1 VGSuvSepZO9oX4Pg PPAczykjwrpzfAZ6DIUk OFZkvG20zEDpKPtpLr0h r7Q8j765OHFzQTNsqC50 On1vaQtvRQDmdVKW yG6ulvscx7joumdnNaXk ERXnNQa6NSg5RPKjsObf XkDxKGU9HgL7HSI3nJIi hP0ssMitmqqmjW8w Oyc+S68zgQ2fRWT1UXH8 glebUPMlumOcYD16ZM40 X5ZkTshtpFIvqID+PGRp xtBiwHrmWZ7aEnGn z9mgx6KwNRxdF1HyEOFq MBauOes8PRUxMHV0bRT1 eL7aLKPwEZmgl1C4iJZ8 O2RuhkYrnz5mu6tz LFTjLEegY17muRPhf5V2 IGJczYE0XEBnxZruFyEv vB23Tpy+VLLguVusk9Ai Iufbw4liv1pbuBd9 IjMwJSIgdmFsaWduPSJ0 s9BvAa15P24lPFraIROj KZZxPRWcPMVrdIoreb4v yW3gBm3+PGNvbCB3 sHC9dN9bISTyNyK3WFeq C657LfBseGWfKgfpf4hd f7ggyIl2ZfVkAKOgitJi sRkfDQZ2d8PaJs96 O97zOTqpFHAuGCImKTFb RFWmnPbedg7owI6tIs9+ ZK5fn8slxu03jM43oHE+ IJKrLGV1wWygPOzv KBMhjI4qXEorVcD6BCNb ApQfdN27wAMuISgnLi8x bZrugXarUI8nNPHzihsj q906KnSbr2htEETi tLZzJEjmYVP7E78qf1Y3 SBXxXRDpDAB7lCQ2eI4k bGlnbjogbGVmdDsgdmVy iEnhPCjhMXbjP089 IHRvcDsnPlBhdGllbnQg LvPgVFo8G3FoOte2NWTw bHxwCT1ozJCcMVbrWn4z sGfhlGbpXN6uXEFr tltud617GkSgz6zvTUDr tXEcYYvtJDW6H85rq0L1 RWLcDTJoMZP0tLE7dW7f bGlnbjogbGVmdDsg ttNxoBtuZMgkFCpcD513 IHRvcDsnPkJpcnRoIERh sZK4NE96PM00iXLgs5J2 pAO6N6IwDJMfucfm hzhmbAN9WHXlJBTnmI90 Gv4caAthUa1zTYEzZON2 DUEctPVfQ9QqcC9lRzUf SGLoHRVsG7ZvuLXa LSmdM896ZSxyZqX3ESXh lnGdU5VfIAXlhUfmEiY6 y1V0Ci1YV3Y8GQ61TF19 hICee0D3vAY5E7Sn HNJvamytoixsiKA3UTLq PMUpbJ49Hk4ncIzvJd7q TTRtGHC8QMXbrBIvL1Mc xR6eSfCeLORfAADf E7UybWArGSdzR883CLhi VzC1JORrxfLbH9PqJSVq uAoxRxH2r4V4Pm6ZTHr7 UD57EI20wIIxh4W9 gXR8N9MlLFBnyisdvxww bMN6GTJvBAIfwN01Nw0u eBadPc0gBVIoLEX1JDSw zYAhN0ZdvF7cIbWu TMUcNHLcG1HobSXjJTak W375QDmmRtJ6CEFdzdLp Q2UbDOQntXytYoP4n7H7 Pm3UJTRgFI86OKD4 tHN0LY18ME90D9LkKqvc dGFibGU+PHRhYmxlIHdp ZHRoPScxMDAlJyBzdHls OL4hSn9mQVClIQFs rKldrUPxOsZsv0hgMUUx IEcxOG9dpEvpZ0HweUW7 PRQpq0o0Np91J19oG4Az dXA+RUQhwVZ5vHT5 qB7nWkXuJhV6CKfhF895 XyCxpXHnRdzxr3wyg7li zWf5ZuO1FYSdxhGzjVfz FYM2k4QmXk17O70u IHdpZHRoPSIxNSUiIHZh bUqqft5btQ0zZq2+PGNv tZL1lHX9jH8pCzCzKqI8 UHrnP443MeIzzWHl Nkrvc0vpe3nqaWn9WsGi PALkjqLpoJnlTEA7h4Jv Rh90T3LhoSzqd3EpWbf0 lv72zHCsc9W3dPT1 Z7EkASJpvaenzRIykXai CR1qOOFuxhhdLJGknC4d XTSvG7b5RxDyQbH0NYjt P1YoelQ1TTTajGYr KPqxMEJ8K60zu1B0PZQr MDVgKDN2hZI3aM2qsQmn bjogbGVmdDsgdmVydGlj MKeuBFpiA645VEDq xQtmPSGvcD9vZARbiRIv qPwdMB0yJRDpwezmQxBP HasRDh7yUUUBXdQUQ9Vf TDwvdGQ+PHRkIHN0 jXvpCMztQKWusP4xLBGe Z6n5CzUvIsD9RYjcI4Zx JQEusqtiKu43rX7iQtMn UzO3NEkwE0XureJ2 WYIlpXEtCIldCAF4G34t p6Q4IHZgRKJiTAI4vRH5 vI6kvPinjczayTYaiSsz dmVydGljYWwtYWxp Z933AWUurKkySzS3SoRk KuT5MCE1K3MpArj2TQEb iIhnBO9xcIXcBGuaZc4t dLqzeQjcUP1eFVWr ppidJACddA1yXIFwsXKq wRqhNA1wSVHsedzrr222 JwJlCFJ7TRBqqSRwA2Qv lH3kWiQhEOIiQJBl G8BhoDOiTGnxV886MYoc UhM3FQLeewRqH8BnDNAz jOjmLfW9h2N8Hy8tNAQN ZWFyczwvdGQ+PHRk PGZ8rEkeIHewREEdvA1m NBXiI8b4CqNyAmN1GPrw E4ZdRYUhbkxoIs62sO0h MrIfIjS4GHxlY3Nf vmR2ZPBkhNEjKKupIXE5 N73xm7H7IXDmZZHlFGG3 jGW1yT7ryKmedfjzrIKa dDsgdmVydGljYWwt IJxmN276CDDibZvzBuTi bWFsZTwvdGQ+PHRkIHN0 gOiuDMreGBEfnX2aLPLo V6p1VdWkBuE7PLav B7HbGFVydcleZo46bU7f JkNgFsB4FVndX8WfhkI2 NIKbyRWbGXoxUFH1O52v r6B2QKMuZZXjOGD0 iFK9hI8foBidalogzHMo dDsgdmVydGljYWwtYWxp X589MNDntLwmIcgpoBC3 aWVudDwvdGQ+PC90 mj26I4CsDhhyJdn7QEOb LUP0cBM6xI0uREVzMOof m8M1nKE5I7TjogWgpt8w u4sgFVTaDQdoB67m vRQid7A3EPAsxOC7XNLd vQehQaEqpM36Iad+PGNv yJpej5CsBvhfj2vdt1km qCq0PhFwKQFtvpYu iUrjJTE3t0TcCi05Y51p IHdpZHRoPSIzMCUiIHZh zSyhfk5oeG3fJp5+PGNv mTY1pTF7xZ2sYjMb XuQ6KJfpF763BfRjpGHc Jtdqr5ubp3lrvXu2EaEo VIDdaxXqiGyqTHV2y3Rx Bm15G5JacVolo6Bt Ubk0bm41eQEyr8P5bEF1 N7WeVXPdlkfzdXFjdPoy RS6uQLJimzjyZESxyY2r KLYzN7g2VhXbTuU5 CDdqS6NrtzL0RJIbgGJx LEQjcRQKvE3kgudpm5cw cuhsRiCxHJJzUFi9YXn3 LWFsaWduOiBsZWZ0 HnU0SKZ9pRYjmL0eeUip jpvcuI7nAsx+MJe4c1kz mOUlYP6rmRL9JH86VB53 eLAji7B0sPN5I6Ru BPVuxvmzjislgGX7XKLa AMMsuZ33Ew2hoTrmDb1f NNDjTWH9UULvfFPtL2Im pO8aQtXyIFTpXTUk N0ZuxVTeCCzcM136ZOne YwY9ATXugbHuO8DzHKNu tBslNyV5k8D2Ol9TRA50 SL65UB98iBHrp2R8 jLR4T5NzGPJetbeelmhj yUY1LLKcTJLgrR00Mp9q cIxzNg6lPAQqGUA1HSCc kMEfS0CqnB5uSzSv RWVeDZRpU5DygEOaTWlq M703PKjxJaU0GEFebfQf H3VeIYAtwWqeRpN6b6S6 Ig8HAm14VS03LD67 xIAgb9O9cEY4Z9PuCHTs dmrbbqfcjYC5MHHyOTLs nB21Xv3nhBgnRh4qVEUj PTZ1DJZlsVLgN5Uz qV2uIfTgFTJcAHIvX8Cy pSOrKWgyM617RGweYbF7 HQAzqtLzO2UwEWWrwXbq XmR0h9J4Vs3WSIbc nal3S1OhMzeouHO+PC90 DNDrEX09hIYscWJka8gw lJt3KkXqBRBsUIU7uPdz WNemr4DnIMIrN72u bGFw (more content not included)... Normal [facility] Consent for Treatmenton 07-20 Consent for Treatment [id number] Normal [facility] General Message Officeon General Message Office --- --- --- --- - -- --- --- --- --- From: Basilio, [employer] To: MYA MYLES Sent: 08/06/20 02:30:52 AM EDT Subject: Discharge Summary Ready to View A summary regarding your recent visit is available in the Documents section of your health record. Normal [facility] CBC w/Indiceson 08-05-2020 Erythrocyte distribution width (RBC) [Ratio] 15.1 % High 10.9-14.2 [facility] Comment on above: Performed By: #### 2 [id number], [id number] #### [facility] [address] [place] [address] Hematocrit (Bld) [Volume fraction] 26.0 % Low 34.0-46.0 [facility] Comment on above: Performed By: #### 2 [id number], [id number] #### [facility] [address] [place] [address] Hemoglobin (Bld) [Mass/Vol] 8.6 g/dL Low 12.0-16.0 [facility] Comment on above: Performed By: #### 2 [id number], [id number], [id number] #### [facility] [address] [place] [address] MCH (RBC) [Entitic mass] 26.3 pg Low 27.0-34.0 [facility] Comment on above: Performed By: #### 2 [id number], [id number] #### [facility] [address] [place] [address] MCHC (RBC) [Mass/Vol] 32.9 g/dL Normal 31.4-36.0 [facility] Comment on above: Performed By: #### 2 [id number], [id number], [id number] #### [facility] [address] [place] [address] MCV (RBC) [Entitic vol] 79.7 fL Low 80.0-100.0 [facility] Comment on above: Performed By: #### 2 [id number], [id number], [id number] #### [facility] [address] [place] [address] Platelet mean volume (Bld) [Entitic vol] 8.0 fL Normal 6.4-10.8 [facility] Comment on above: Performed By: #### 2 [id number], [id number], [id number] #### [facility] [address] [place] [address] Platelets (Bld) [#/Vol] 259.0 E9/L Normal 150.0-500.0 [facility] Comment on above: Performed By: #### 2 [id number], [id number], [id number] #### [facility] [address] [place] [address] RBC (Bld) [#/Vol] 3.3 E12/L Low 4.3-5.9 [facility] Comment on above: Performed By: #### 2 [id number], [id number], [id number] #### [facility] [address] [place] [address] WBC corrected for nucl RBC Auto (Bld) [#/Vol] 10.2 E9/L Normal 4.0-11.0 [facility] Comment on above: Performed By: #### 2 [id number], [id number], [id number] #### [facility] [address] [place] [address] Discharge Instructionson Discharge Instructions [id number] 106 [id number] 9#1.00CD:127 Normal [facility] Inpatient Clinical Summaryon 08-05-2020 Inpatient Clinical Summary [address] [address] Clinical Summary Person Information Name: MYA MYLES Ifeoma/[facility] Age: 30 Years : 1990 Sex: Female PCP: Chao Blackwell III, DO Marital Status: Single Race: White Ethnicity: Non- or Language: Brazilian Visit Id: Visit Reason: Speciality: Acuity: 1 PP Enc Type: Inpatient Med Service: Obstetrics Arrival: 08/04/2020 06:59:23 Discharge: 08/05/2020 17:20:00 Dispo Type: Home (Routine DC) Address: [address] [place] [address] DR BREAUX MD [id number] Provider Notes: Diagnosis: Depression during ; Obesity [...] Physician: Follow up: With: Address: When: [address], [place] [address] Business (1) Within 6 weeks Comments: Call Dr if fever>100.5 F, heavy bleeding Call for any problems. Nothing in the vagina for 6 weeks Type Location Start Finish State [facility] 09/15/2020 9:00 AM 09/15/2020 9:15 AM Confirmed Patient Education Information: ibuprofen 600 mg Tab Normal [facility] Inpatient Patient Summaryon 08-05-2020 Inpatient Patient Summary [address] [address] Patient Discharge Instructions PERSON INFORMATION [...] None Follow up: With: Address: When: [address], [place] [address] Business (1) Within 6 weeks Comments: Call Dr if fever>100.5 F, heavy bleeding Call for any problems. Nothing in the vagina for 6 weeks In the event that this physician does not participate in your insurance network, please consult with your insurance company to find a nearby participating provider. Type Location Start Finish [facility] 09/15/2020 9:00 AM 09/15/2020 9:15 AM Confirmed Comment: JUSTINO Burton VANESSA L, have received the attached patient education materials/instructio ns and have verbalized understanding. Patient Signature Date Clinican/Nurse Signature Date MEDICATION LIST New Medications [id number], [address] [place] [address] [id number], [phone] ibuprofen (ibuprofen 600 mg Tab) 1 Tablets By Mouth every 6 hours. Refills: 0. Last Dose: Next Dose: Medications to Continue with No Changes Other Medications multivitamin, ( Multivitamins) 1 Tablets By Mouth every day. Last Dose: Next Dose: Pharmacy Information: [facility] PATIENT EDUCATION INFORMATION Instructions: Medication Leaflets: [...] younger th (more content not included)... Normal [facility] ABO/Rhon 08-04-2020 ABO/Rh Positive Invalid Interpretation Code [facility] Comment on above: Performed By: #### 1 [id number], [id number], [id number], [id number] ####[facility] [address] [place] [address] ABO/Rh History Checkon 08-04 ABO/Rh History Check Verified Hx Blood Type Normal [facility] Comment on above: Performed By: #### 1 [id number], [id number], [id number], [id number] ####[facility] [address] [place] [address] ABSCon 08-04-2020 ABSC Gel Interp Negative Normal [facility] Comment on above: Performed By: #### 1 [id number], [id number], [id number], [id number] ####[facility] [address] [place] [address] Blood Bank ID#on 08-04-2020 BBID# [id number] Invalid Interpretation Code [facility] Comment on above: Performed By: #### 1 [id number], [id number], [id number], [id number] ####[facility] [address] [place] [address] CBC w/Indiceson 08-04-2020 Erythrocyte distribution width (RBC) [Ratio] 14.8 % High 10.9-14.2 [facility] Comment on above: Performed By: #### 2 [id number] #### [facility] [address] [place] [address] Hematocrit (Bld) [Volume fraction] 31.7 % Low 34.0-46.0 [facility] Comment on above: Performed By: #### 2 164614 #### [facility] [address] [place] [address] Hemoglobin (Bld) [Mass/Vol] 10.2 g/dL Low 12.0-16.0 [facility] Comment on above: Performed By: #### 2 687987 #### [facility] [address] [place] [address] MCH (RBC) [Entitic mass] 25.6 pg Low 27.0-34.0 [facility] Comment on above: Performed By: #### 2 765861 #### [facility] [address] [place] [address] MCHC (RBC) [Mass/Vol] 32.1 g/dL Normal 31.4-36.0 [facility] Comment on above: Performed By: #### 2 595184 #### [facility] [address] [place] [address] MCV (RBC) [Entitic vol] 79.7 fL Low 80.0-100.0 F [facility] Comment on above: Performed By: #### 2 634976 #### [facility] [address] [place] [address] Platelet mean volume (Bld) [Entitic vol] 8.3 fL Normal 6.4-10.8 [facility] Comment on above: Performed By: #### 2 [id number] #### [facility] [address] [place] [address] Platelets (Bld) [#/Vol] 341.0 E9/L Normal 150.0-500.0 [facility] Comment on above: Performed By: #### 2 981904 #### [facility] [address] [place] [address] RBC (Bld) [#/Vol] 4.0 E12/L Low 4.3-5.9 [facility] Comment on above: Performed By: #### 2 136231 #### [facility] [address] [place] [address] WBC corrected for nucl RBC Auto (Bld) [#/Vol] 8.2 E9/L Normal 4.0-11.0 [facility] Comment on above: Performed By: #### 2 752523 #### [facility] [address] [place] [address] Consent for Procedure/Surger yon 08-04-2020 Consent for Procedure/Surgery [id number] 9#1.00CD:127 Normal [facility] Consent for Procedure/Surgery [id number] 3#1.00CD:127 Normal [facility] Consent for Procedure/Surgery [id number] 5#1.00CD:127 Normal [facility] Consent for Treatmenton 07-19 Consent for Treatment [id number] 2#1.00CD:127 Normal [facility] Consent for Treatment [id number] 06 [id number] 9#1.00CD:127 Normal [facility] Delivery Summaryon Delivery Summary Patient: MYA [...] appearance of fluid clear, amniotomy. Delivery of : time of 08/04/2020 15:08:00, uneventful, umbilical cord [...] Stable. Maternal condition: Stable. Funmilayo Escobedo MD [facility] Comment on above: Result Comment: Elec tronically Signed By: LAURA MACEDO, Funmilayo J\.br\Date and Time Signed: 08/04/20 15:29 EDT Discharge Instructionson Discharge Instructions [id number] 106 [id number] 9#1.00CD:[address] [facility] Help Me Grow Referralon 07-19 Help Me Grow Referral [id number] 4#1.00CD:[address] [facility] Progress Note-Physicianon Progress Note-Physician Patient: MYA MYLES Age: 30 years Sex: Female : 1990 Associated Diagnoses: None Author: Kevin Haley Jr., DO Postoperative Information Post Operative Note: Day 2. Anesthetic utilized: Regional: Epidural. Health Status Allergies: Allergic Reactions (Selected) No Known Allergies Problem list: All Problems labor / Patient Care / Confirmed Ovarian cyst / SNOMED CT 030115281 / Confirmed Attention deficit hyperactivity disorder / SNOMED CT 1869509960 / Confirmed Obesity / ICD-9-CM 278.00 / Possible Obesity complicating , third trimester / SNOMED CT 6323084154 / Confirmed Depression during / SNOMED CT 2054130248 / Confirmed Insomnia / SNOMED CT 628350670 / Confirmed / SNOMED CT 093919675 / Confirmed Supervision of high risk in third trimester / SNOMED CT 38499118 / Confirmed Chronic fatigue syndrome / SNOMED CT 92702347 / Confirmed Resolved: / SNOMED CT 456250245 Resolved: / SNOMED CT 222746664 Canceled: Obesity complicating , first trimester / SNOMED CT 9840716664 Canceled: Obesity complicating , second trimester / SNOMED CT 5149766966 Canceled: Supervision of high risk in first trimester / SNOMED CT 28049407 Canceled: Supervision of high risk in second trimester / SNOMED CT 52132942 Physical Examination General: Alert and oriented, No acute distress. Neurologic: Normal sensory, Normal motor function, No focal deficits. Review / Management Result Review Condition: Stable. Assessment Anesthetic outcome No post-epidural complications noted.. Plan Transfer/ Discharge: Condition stable. Normal [facility] Comment on above: Result Comment: [...] / Confirmed Ovarian cyst / SNOMED CT 061888753 / Confirmed Attention deficit hyperactivity disorder / SNOMED CT 4527530722 / Confirmed Obesity / ICD-9-CM 278.00 / Possible Obesity complicating , third trimester / SNOMED CT 2697180604 / Confirmed Depression during / SNOMED CT 7080484431 / Confirmed Insomnia / SNOMED CT 123128173 / Confirmed / SNOMED CT 328061652 / Confirmed Supervision of high risk in third trimester / SNOMED CT 54606841 / Confirmed Chronic fatigue syndrome / SNOMED CT 85194776 / Confirmed Resolved: / SNOMED CT 782679669 Resolved: / SNOMED CT 270604133 Canceled: Obesity complicating , first trimester / SNOMED CT 8748142209 Canceled: Obesity complicating , second trimester / SNOMED CT 8940015499 Canceled: Supervision of high risk in first trimester / SNOMED CT 81553153 Canceled: Supervision of high risk in second trimester / SNOMED CT 41271475 Review of Systems Respiratory: Negative. Cardiovascular: Negative. Hematology/Lymphatic s: No bruising tendency, No bleeding tendency. Neurologic: [...] The PCEA was started at 0942. Normal [facility] Comment on above: Result Comment: Elec tronically Signed By: Kevin Haley Jr., DO.rosey\Date and Time Signed: 08/04/20 10:50 EDT UA With Cult Reflexon 2020 Bilirubin Ql (U) Negative Normal Negative [facility] Comment on above: Order Comment: Urina ry Catheter Insertion triggered Urinalysis With Culture Reflex order by discern. Performed By: #### 2 026472, 1685801, [id number] #### [facility] [address] [place] [address] Clarity (U) CLEAR Normal Clear [facility] Comment on above: Order Comment: Urina ry Catheter Insertion triggered Urinalysis With Culture Reflex order by discern. Performed By: #### 2 259421, 4501917, [id number] #### [facility] [address] [place] [address] Color (U) YELLOW Normal Yellow [facility] Comment on above: Order Comment: Urina ry Catheter Insertion triggered Urinalysis With Culture Reflex order by discern. Performed By: #### 2 519739, 9189559, [id number] #### [facility] [address] [place] [address] Crystals LM Ql (Urine sed) Present Normal [facility] Comment on above: Order Comment: Urina ry Catheter Insertion triggered Urinalysis With Culture Reflex order by discern. Performed By: #### 2 951600, 9601374, [id number] #### [facility] [address] [place] [address] Epithelial cells.squamous LM.HPF (Urine sed) [#/Area] 0-2 Normal 0-2 [facility] Comment on above: Order Comment: Urina ry Catheter Insertion triggered Urinalysis With Culture Reflex order by discern. Performed By: #### 2 418963, 1474627, [id number] #### [facility] [address] [place] [address] Glucose Test strip (U) [Mass/Vol] Negative Normal Negative [facility] Comment on above: Order Comment: Urina ry Catheter Insertion triggered Urinalysis With Culture Reflex order by discern. Performed By: #### 2 805813, 3583943, [id number] #### [facility] [address] [place] [address] Hemoglobin Ql (U) TRACE Abnormal Negative [facility] Comment on above: Order Comment: Urina ry Catheter Insertion triggered Urinalysis With Culture Reflex order by discern. Performed By: #### 2 241361, 6801167, [id number] #### [facility] [address] [place] [address] Ketones (U) [Mass/Vol] Negative Normal Negative [facility] Comment on above: Order Comment: Urina ry Catheter Insertion triggered Urinalysis With Culture Reflex order by discern. Performed By: #### 2 018547, 7287687, [id number] #### [facility] [address] [place] [address] Keyport.plasma/Keyport. RBC (Bld) [Mass ratio] 0-3 Normal 0-3 [facility] Comment on above: Order Comment: Urina ry Catheter Insertion triggered Urinalysis With Culture Reflex order by discern. Performed By: #### 2 707541, 3357464, [id number] #### [facility] [address] [place] [address] Mucus Ql (Urine sed) TRACE Normal [facility] Comment on above: Order Comment: Urina ry Catheter Insertion triggered Urinalysis With Culture Reflex order by discern. Performed By: #### 2 149712, 2041300, [id number] #### [facility] [address] [place] [address] Nitrite Ql (U) Negative Normal Negative [facility] Comment on above: Order Comment: Urina ry Catheter Insertion triggered Urinalysis With Culture Reflex order by discern. Performed By: #### 2 248182, 2429920, [id number] #### [facility] [address] [place] [address] pH (U) 6.0 [pH] Invalid Interpretation Code 5.0-9.0 [facility] Comment on above: Order Comment: Urina ry Catheter Insertion triggered Urinalysis With Culture Reflex order by discern. Performed By: #### 2 897741, 6811970, [id number] #### [facility] [address] [place] [address] Protein (U) [Mass/Vol] Negative Normal Negative [facility] Comment on above: Order Comment: Urina ry Catheter Insertion triggered Urinalysis With Culture Reflex order by discern. Performed By: #### 2 613482, 8810958, [id number] #### [facility] [address] [place] [address] Specific gravity (U) [Rel density] 1.015 Invalid Interpretation Code 1.005-1.030 [facility] Comment on above: Order Comment: Urina ry Catheter Insertion triggered Urinalysis With Culture Reflex order by discern. Performed By: #### 2 897795, 8312199, [id number] #### [facility] [address] [place] [address] Type of Urine collection method Catheter Normal [facility] Comment on above: Order Comment: Urina ry Catheter Insertion triggered Urinalysis With Culture Reflex order by discern. Performed By: #### 2 988855, 7298709, [id number] #### [facility] [address] [place], [place] [address] Urobilinogen Qn (U) 0.2 {Henny'U}/dL Normal 0.0-1.0 [facility] Comment on above: Order Comment: Urina ry Catheter Insertion triggered Urinalysis With Culture Reflex order by discern. Performed By: #### 2 990179, 3203578, [id number] #### [facility] [address] [place] [address] WBC Auto Ql (U) Negative Normal Negative [facility] Comment on above: Order Comment: Urina ry Catheter Insertion triggered Urinalysis With Culture Reflex order by discern. Performed By: #### 2 517259, 3629949, [id number] #### [facility] [address] [place] [address] WBC LM.HPF (Urine sed) [#/Area] 0-5 Normal 0-5 [facility] Comment on above: Order Comment: Urina ry Catheter Insertion triggered Urinalysis With Culture Reflex order by discern. Performed By: #### 2 812427, 3499135, [id number] #### [facility] [address] [place] [address] Vaccinationson 08-04-2020 Vaccinations [id number] 0#1.00CD:127 Normal [facility] Coding Summary.on 08-03-2020 Coding Summary. CD:[id number] Gh0bWw+PGhlYWQ+PE1FV QOgK96ilZKlxY1UN1sSD Q9OEWUWTWMASE7UID1xo UT2ZUhsT0AyuyJr JqachQHqHP19GBt5OVW1 iFvcREaafE9nsTDyS7f3 VnCcNG48kN70LYosEXDa RbY5TkRzczlpzAEb Y8wdZeKgxXQpItx+PHRh YmxlIHdpZHRoPScxMDAl LsNdvDtuPL1nSm8qTBXz LWNvbGxhcHNlOiBj l5icMCLsDRvmYD0maIfp T3AyfQW2IKOcp8c3Xc77 dHI+XWHgUIP0eWqoUThg o877MwXzz1orVXJ5 mIGcZLqhBCX8U85zt6N6 MLTxAQUpFKJ2vNN9mU2l bTgzedaoJ8DkiTMnAgS5 GZI5iZHwoX6jiMkr nlljwE4hMgr+Q97AOR4H LKAIJO9BCtk2T4MpOucc dHI+OE44TLRfVH06hEHj tHGdj1zzoAe6FrEt LWPjECJ5gUtpTOgpk2Oc TBCeO67mfEXcu7Z4GFQv jJmamRInRpAapKP3eG2k FYyquwxdz7luxlen Exipv5yltq03zX98Q28v IQpaUKYdMFY4EVRjVAYo vEtjyu0xuU4qDa4+IDxj n0xpx1xthUv1OoKz CMAjxfQfrTvvHTR2t2By Sd88X5HobUfab0VxLou3 iy97vEMac6H2jVH1JMbw MTFljY2iAUmnNaF3 ANNkBmWhxI76oREuFArx Jb9exPnujKmiNW1uPCHv afayEMSkdX9vQEOvvGHd zKmiLN5gXTDgktby w107WqCgOGC0BLKvtSWy D9LrrP1yLjObOGCrBZXr V9EqdGBiQRhpR359CKzd AmV5EGAickPhQ5Sr SWFyuBbtVgC8x7E4Kp6A y2XiifsgPEB8UOhhXCB7 FwQ8RxAfVvR5W2JlLly3 NNAplEdvFO6eU1Hd COKgumggopnfyTI6LVVm MCOzbR27uLXePTtvUm2d x3R9e616QVFiWJNanP14 Lq3jkGayBVQgvZDK iU1yelnnc6lgkquvFwMt BQUsQNv0TVw1KRBkqPkv QaOrYXM4NjY3TCA5pUKx xB6glWyhnqrqcP6c Oyc+X26yfZ9vWBW8QOL1 dugpLXJhtzOsVW82LZ75 Y1PmBfsljYXsvQP+PGRp vgBstZomPC6tYkTj e1sqo0OuZJomF4WbBDYe ROgcUej4OJOgGEO2pCV7 vX8kSYGqCKmfp0Y8nVF5 B7TuzmLhga0xr8ld ZYXcJWrjP50usBNyi1K0 OGHfaVC5OUFydFdvOmHq iT88Ejl+IKXjbNsil1Wv Axelc1ceo1ztlLa7 IjMwJSIgdmFsaWduPSJ0 w2UqXj01Q78dMUjsGOGe FUZlPYPsNMZoqIhzpb5z kU3dGm0+PGNvbCB3 yZE5vG9tGSSsAfN4VYch X137AmCbfHXgDmrms9gf m6rukPe2PrKkSOGpllQi lMglVMJ0b5IwSi77 Z58tIWtxPTVvMQTuZWMo AKNtvWutjt1plO2oVh2+ HR7vi6kqvg60sC84qLJ+ PHAcJZT5vPdjUDpg GPCdfB9bHNapMyR8FMRt RbCzwW46pASmLMquVu4j kXlbtPbmNA4vDTOpgakl d033OtMnp3qqTMWo dXEbSReaTWL2Q11tb9Y3 SZLfPALjJGL6qNK7iT0d bGlnbjogbGVmdDsgdmVy dOwfJGapFIcdH424 IHRvcDsnPlBhdGllbnQg LlCrZHu0R1LkVsv4NTKn zAleID2rxOOxFOfwPk7e fZmtqSnmMS7mXRUs aaqsd741JbUod5hmHFHx gCKgREycKCK1L72vg6Y9 GFAaHVBnVJK0pVV2xM5o bGlnbjogbGVmdDsg cdGdvCajSGluCQdfB144 IHRvcDsnPkJpcnRoIERh kOR8FF65CP35jXXyd4A0 dYS1Z8XzXACyiscj odhdvHK1QDFpHUXdjX66 Mb2ssFmaJm8lDEDhTDY8 RAMbdXLiE8KdtM4rIsPn UDLbEGTaV2OthPXy EHdlY386QMlaStK2UYPo ocQaZ5GcPGZxzHamGaM7 j6D1Dc4RF2X3CM86JC12 wNBsw5O1mBF8W4Dw YEShaxbvetfzmWL2NJMh COZxlL57Ja4ewMtrTy2u JRGvDPD5ZQPdwCNjG1Yy pJ8dQrKqXAQjMOQd B4QqtLAtYBohW462OXxe BqB6MVAbqjJuV6HjEEGi uEukAqH5h9I3Vd6ETCl9 ZJ90BP12tPHrg6K5 wIC4N7LmMKAagkhijjoq nQG6CHSnBVFqfR83Tk8z xKzbHx6tAYUaDBF5BOQd zLOoU6KtyV5pQtAe SGMkYEEkX4KkdLXyNRzn Q344MVcxCzN1KHQbloAm L5DoUUKgyMorGmK3l8R2 Mh1KEHVcPL89IOO7 iNS0BL05US52F2BhFwbi dGFibGU+PHRhYmxlIHdp ZHRoPScxMDAlJyBzdHls YY7aOo9oIDTnNIVg lWncfKEjMmDwt9kkUBZw OBflYL7uzWaqW4UpnHI0 MZJpp4q3Cl42L06oU8Lk dXA+KVJckHH4jTN4 aF3rBuTqPoJ2BRsqE703 AoHdiPMkMxoek7dre6tc tAc2StF2QZKkutMkxJpo CIH5d3HxWo39C17h IHdpZHRoPSIxNSUiIHZh rKdfdh7clU9aMp1+PGNv oIW4dLY5gS3pJbBwQoZ5 XNafS878OmYjqRJb Gdjsf1lzt1wflSv5KsOc ADQnnvXvvZyyMQG2f2Qf Nq12D7NrgMoai5RpVyb5 bb64nZPxm1Z9eMF6 Q9HpPNMdjkpfpHDbdYcy JZ5oLVVdeqgdJZGwoG6t RQSwU6t5CjBoXlQ1GGzw I5YkxcO0LIHtaQXg ODyfCTD7H41aq7N9UYYa KJFqERB8kYP8cI7fgSqm bjogbGVmdDsgdmVydGlj FOweGHjuM480ZOEr tUpmCPWqbF5fUQPvxRCi tEsiTT8mNAWoeohwGkZE LyaHAa1mDIHPLwQSG7Yf TDwvdGQ+PHRkIHN0 oGpzSQltKTFjtC2jTHOk V7x4JyAzOoQ9KBwrJ7Ln BEGawewlFc90uI9xMrSx TnN2POvmS8SpkyE3 KPYsqWPaROpjQBA2N84x f2U9YDBxMFDoIMJ3yIV8 gT9tfMsnrnexiONfmBak dmVydGljYWwtYWxp Q525OEAnxKrrLaF4RcEi DxY0KZY7V0IxEza8USXi oRjfFJ1wqXMdWPmbWl6x zHgotFpeUZ3ePACc ltwfFTZyxI0ePESkmOTn aAecVZ9pQGClmasic220 EvJjKDO0VWFvgBXvL3Uc bC3fArKwFQEuTRLg C5WxvTEqAUkyT143EAvc DuH9JVCtkuKtY5OwIQTy pUujPkV4y2W0Bc1sMEXM ZWFyczwvdGQ+PHRk LQV0uHwqOGijKFFhkS3c XOPnP1i2YwSiMnG3FSig Y2QoNVOguaxrDe53sZ3n GaWyXdI4GKzfP2Kf feA7QSBqnVXwBGmnYUH9 B52nl8C8RIOyLGStGAA6 bJU6nL0gtZbtyaqscFIu dDsgdmVydGljYWwt NWjqA212BTWyeZxvIuXb bWFsZTwvdGQ+PHRkIHN0 fFnuAZeqCCGewU2iHEMv V1l6WbKcVoD9FXcc K3AoXALeqhirYw24zF2j LoVuWlL2LUvjD1CunvN4 HOPcqHHuMDtyPRY4F97k n1O2OXBoOFIxRXQ5 cJV4gQ3emKsssldxnGUi dDsgdmVydGljYWwtYWxp E220MZUzhJzsUe3DOZTw aWFnZTwvdGQ+PC90 ko27N3VzLyrfYya1ZRIy PSY5sJJ9jR4rWGMgETmj e6A4vUH9Y5MluwSzjw4a q7nhXKYhQNpeR55k pWMnr3K9TNOdxXV6PQVw wVkfLkXisW95Zrs+PGNv lTkyh1TnZgncw0ohq2oy vHt6VoIeLQFqhxOl dGprUGT3l1BdVd00I92a IHdpZHRoPSIzMCUiIHZh uHpejg7nuU4jMf4+PGNv wZS4iFL9mW0jUfQd TrS1KRfaH850RtKtxLCt Hfnte0vsd9eulDg4WzPd XENlsiSuiWouILH7p6Lp Eb88W4HkxOthi3Eu Doc3kx84jUUpl3F9vDM6 R2OpOONmzjphqNDtjRoc NT6kJSJqswetQUJmwT8u XAVsY8x3MoKpUvQ1 FAsxA2GkvuY6TPZcsWFg YUGmdGRAgQ0ceqhwl3ep ilahZaLxPTHeEIa0KCl9 LWFsaWduOiBsZWZ0 HgB7LHH1iFLuhT7dbPen rtjrwB2mRjr+WWg1d8no mLAcOP8vpTS5TR75XR79 sCSbi5O4vXH6U9Hp ZMXecbfrjgcbnIS7ZAFv VOUeoK70Zd1rxYhdJq0f RHPrXPU9IYNrjCDcD5Mb vV8fNfPjZGLfVPCi S6ZkdPKlHYywD123BDfi QkR1LQPpmmQsS7NiXRXa oTpnYaU4g7K2Ff7UOI96 ZD89UF74dDFly2S7 nRA8U5SgGSCulsajntxh pGZ4JLVsGFLfxV63Di4d uTpvSn2sKVJoBTH1AEFr yFUbV9MqdB7rPzAj CBKbIUReN5PqsAFkJCdd S985JMfpRkU4PRVhnfBu M0UvQQSanRrlApJ9h7Q3 Nj5IMi74EZ27LX40 mWVib1B3nFW2E7QyIDIx qsnagbcpwIF8XZSvKBDj cN00Os6poEyfGx5vHAIc YBE0IUDtcQJlZ8Ro mT7kNrIpXVWsNRDyB2Ee jIMtDEzpZ459QOkvCjM2 SDLmbpMqL1ZhYRAdqVhb BxU8v5J1Sg5VVMgp emi7L0UhKxyhbXS+PC90 XGPtNF60wPUcrRZkl6xh kRg1FyHuMBXaLRF9dKry GMwgm5RnGPNcC87u bGFw (more content not included)... Normal [facility] Ambulatory Clinical Summaryo n 08-02-2020 Ambulatory Clinical Summary {to-88-f6-[id number] 8-3u-vr-48-wn-68-5b- 09-9c-6a}CD:[id number] Normal [facility] Insurance Correspondenceon 0 08-02-2020 Insurance Correspondence [id number] #1.00CD:[address] [facility] Insurance Correspondence Off iceon 08-02-2020 Insurance Correspondence Office [id number] 1#1.00CD:[address] [facility] Insurance Correspondence Office [id number] 1#1.00CD:127 Normal [facility] Nursing Assessmenton 021 Nursing Assessment [id number] 4#1.00CD:127 Normal [facility] Obstetrics Office/Clinic Not jasmine 08-02-2020 Obstetrics Office/Clinic Note Chief Complaint OB 38w 5d, baby moving, occ. [place], swelling bilat. feet, woke up with Migrain in middle of night Obstetric History History (1,0,0,2) # 1 Baby 1 Outcome Date: 2008 Outcome: Live Outcome or Result: Vaginal Gender: Female Gest Age: 41 weeks Wt: 3232 g Hospital: [facility] [place] Benny Labor: -- Child's Name: -- Baby's Father: -- # 2 Baby 1 Outcome Date: 05/26/2013 Outcome: Live Outcome or Result: Vaginal Gender: Male Gest Age: 39 weeks 3 days Wt: 3390 g Hospital: -- [facility] Labor: 5 hr 55 min Child's Name: [...] normal interaction, good eye contact. Assessment/Plan IOL Th08/04 @ 0700 1. Supervision of high risk in third trimester (O09.93: Supervision of high risk , unspecified, third trimester) Ordered: Office Visit Level 4 Est 00977 TH 2. Obesity complicating , third trimester (O99.213: Obesity complicating , third trimester) Ordered: Office Visit Level 4 Est 88239 TH 3. Depression during (O99.340: Other mental disorders complicating , unspecified trimester) Ordered: Office Visit Level 4 Est 41153 TH 4. 38 weeks gestation of (Z3A.38: 38 weeks gestation of ) Ordered: Office Visit Level 4 Est 85992 TH Follow-up With When Contact Information Funmilayo ESCOBEDO MD In [address] [place] [address]- Additional Instructions: Problem List/Past Medical History Ongoing Attention deficit hyperactivity disorder Chronic fatigue syndrome Depression during Insomnia Obesity complicating , third trimester Ovarian cyst Supervision of high risk in third trimester Historical Medications Multivitamins, 1 tab(s), Oral, Daily Allergies No Known Allergies Social History Alcohol - Denies Alcohol Use, 11/21/2009 DENIES, 04/14/2020 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 Immunizations Vaccine Date Status diphtheria/pertussis , acel/tetanus adult 06/23/2020 Given Lab Results Ambulatory Point of Care Results Glucose Urine Dipstick: Negative (08/02/20 16:30:00) Protein Urine Dipstick: Negative (08/02/20 16:30:00) Normal [facility] Comment on above: Result Comment: Elec tronically Signed By: LUARA MACEDO, Funmilayo Garner.rosey\Date and Time Signed: 08/02/20 [...] Reviewed: 07/07/2019 [employer] Patient Education ? 2019 [employer] Normal [facility] Discharge Instructionson Discharge Instructions [id number] #1.00CD:127 [facility] Inpatient Clinical Summaryon 07-31-2020 Inpatient Clinical Summary [address] [address] Clinical Summary Person Information Name: MYA MYLES [place] Age: 30 Years : 1990 Sex: Female PCP: Chao Blackwell III, DO Marital Status: Single Race: White Ethnicity: Non- or Language: Brazilian Visit Id: Visit Reason: Speciality: Acuity: Obs Enc Type: OB Triage Med Service: Obstetrics Arrival: 07/30/2020 21:16:34 Discharge: 07/30/2020 22:58:00 Dispo Type: Home (Routine DC) Address: [address] [place] [address] DR BREAUX MD [id number] Provider Notes: Diagnosis: Problems Active Insomnia Chronic [...] up: With: Address: When: Funmilayo ESCOBEDO [address] [place] [address] BiolineRx (1) In 3 days 08/02/2020 Comments: Keep [...] Type Location Start Finish State [facility] 08/02/2020 4:30 PM 08/02/2020 4:45 PM Confirmed [facility] 09/15/2020 9:00 AM 09/15/2020 9:15 AM Confirmed Patient Education Information: Normal [facility] Inpatient Patient Summaryon 07-31-2020 Inpatient Patient Summary [address] [address] Patient Discharge Instructions PERSON INFORMATION [...] up: With: Address: When: Funmilay[place] [address] Business (1) In 3 days 08/02/2020 Comments: [...] Type Location Start Finish State [facility] 08/02/2020 4:30 PM 08/02/2020 4:45 PM Confirmed [facility] 09/15/2020 9:00 AM 09/15/2020 9:15 AM Confirmed Comment: JUSTINO Burton VANESSA L, have received the attached patient education materials/instructio ns and have verbalized understanding. Patient Signature Date Clinican/Nurse Signature Date MEDICATION LIST Medications to Continue with No Changes Other Medications multivitamin, ( Multivitamins) 1 Tablets By Mouth every day. Last Dose: Next Dose: Pharmacy Information: [facility] PATIENT EDUCATION INFORMATION Instructions: Medication Leaflets: You may receive a survey from [employer] asking you to rate your care experience. Your feedback is important and will help us understand what we do well and how we can improve the quality of care we provide to you, your loved ones and our community. It?s an honor to serve you. Thank you for choosing [facility] Consent for Treatmenton 07-19 Consent for Treatment [id number] 06 [id number] 0#1.00CD:[address] [facility] Consent for Treatment [id number] 06 [id number] 8#1.00CD:[address] [facility] Insurance Correspondenceon 0 07-29-2020 Insurance Correspondence [id number] 41#1.00CD:[address] [facility] Insurance Correspondence Off iceon 07-29-2020 Insurance Correspondence Office [id number] 5#1.00CD:[address] [facility] Nursing Assessmenton 021 Nursing Assessment [id number] 1#1.00CD:[address] [facility] Ambulatory Clinical Summaryo n 07-28-2020 Ambulatory Clinical Summary {[id number]}CD:[id number] [facility] Obstetrics Office/Clinic Not jasmine 07-28-2020 Obstetrics Office/Clinic Note Chief Complaint OB visit 38 weeks . Obstetric History History (1,0,0,2) # 1 Baby 1 Outcome Date: 2008 Outcome: Live Outcome or Result: Vaginal Gender: Female Gest Age: 41 weeks Wt: 3232 g Hospital: [facility] Benny Labor: -- Child's Name: -- Baby's [...] CLIFFORD Calculations for this : No additional CILFFORD calculations have been recorded for this History [...] trimester) Ordered: Office Visit Level 3 Est 87567 TH 2. Supervision of high risk in third trimester (O09.93: Supervision of high risk , unspecified, third trimester) Follow up in 1 wk. Ordered: Office Visit Level 3 Est 99260 TH 3. 38 weeks gestation of (Z3A.38: 38 weeks gestation of ) Ordered: Office Visit Level 3 Est 11595 TH Follow-up With When Contact Information [facility] In [address] [place] [id number]- Additional Instructions: Problem List/Past Medical History Ongoing Attention deficit hyperactivity disorder Chronic fatigue syndrome Depression during Insomnia Obesity complicating , third trimester Ovarian cyst Supervision of high risk in third trimester Historical Medications Multivitamins, 1 tab(s), Oral, Daily Allergies No Known Allergies Social History Alcohol - Denies Alcohol Use, 11/21/2009 DENIES, 04/14/2020 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 Immunizations Vaccine Date Status diphtheria/pertussis , acel/tetanus adult 06/23/2020 Given Lab Results Ambulatory Point of Care Results Glucose Urine Dipstick: Negative (07/28/20 16:33:00) Protein Urine Dipstick: Negative (07/28/20 16:33:00) [facility] Comment on above: Result Comment: Elec tronically Signed By: Caroline HILARIO\.rosey\Date and Time Signed: 07/28/20 16:52 EDT Patient Educationon 06-10-20 21 Patient Education Obstetrics and Gynecology Before Baby [...] Petroleum jelly. ? 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 ? Hand metal gauge maker. Health and safety ? Rectal thermometer. ? [...] ? Consumer Product Safety Commission: www.cpsc.gov ? [employer] Academy [employer] Pediatrics: www.healthychildren. org ? Safe Kids Worldwide: www.safekids.org Summary ? [...] 01/17/2009 Document Revised: 01/17/2018 Document Reviewed: 12/25/2017 [employer] Patient Education ? 2019 [employer] [facility] Coding Summary.on 07-27-2020 Coding Summary. CD:[id number] Gh0bWw+PGhlYWQ+PE1FV IBaY00jsOFgbR8HM7eME C6QONAHBUZHOL4LOB1uc RS1SWfbK5IqseLz QmejtHRvFS38UNr9DRZ0 lGmeHMnbiA4zyQZyP1x1 UzEtOD66aM63WVqcTTKm ByE8MoZvbewgnYLk C9ktIeHsrUYzDin+PHRh YmxlIHdpZHRoPScxMDAl IcMeeDmqBN3gAl4qCOMp LWNvbGxhcHNlOiBj p9wlHMWgLEvbJS5snNsb Q3KkuLE3BLOhi8z6Yf62 dHI+DUJvTKC4yGpkHUuf j583CkMva0dxQMW7 jYYoILgkFKU0C72uy5Q7 GDRdWFFwNVB9pKJ4dX1g kBodjvdpB6QjnKZdIoV7 YDQ7jTXviC0spDbo iehjrQ4cQoa+F13PBL8X YZYCPS6WVoe5T4GgJlha dHI+EE64GIVwNV87jZEi lHDds6ktmLv4CjOx RMFzZCC6vUzhZZpgb0Vf OVEfW87ovYHwu5Y0STSh oTzzpAMvMjXphKY7fE1a UUegolpkt3ycuapf Ritnq7gkiu62aW93S35s PCyxLILcTKD7IBGdULKc nSabta2wrU8yZf5+IDxj l6acg6hubTw5CcBu ELJmtjNgnBzmJQU6t7Dr Sh44E4XxlDwin6GfPno7 wv93nWHhm3C9nNJ9ZYbf KRDtnY4cSOmmFmT3 FWSuCzTueV07rDVqWQoo Cs4beMlnvImoWN2qQBTm rzbpVCRlhO1dPGLatPMy uNvzAU4tPJNftcvu q855ZbZcSBN1RCRvoAOq I7OkkS9kQcBoALPwVOCv T0VacOIlTJhjH402PGvi PtE2HVSebaPrG0Qj FDKlpIyeRcE4j8K6Kp4L g5SvqjtgMSR5ZYfgPWY7 MwG7QiSaAeC1I4OmOgl2 HMYmyZyfDU7yZ4Vh HMJrhmxfkpzmfRL9BSVj VEHobY69oQXnVBddTn3w y7X8s869YOTgQUFjsF41 Pu6ysZpvMMPmeUJC dH3iomhhm4ysryfjPgNt SWDoDVv0SEw8SJRpyDbn IrBaSWR1UmZ4QWX5eLJq lV9thOhvembzrT9w Oyc+L67dzQ3zHPV1KUQ1 lhanIZYzvwZdZB91EH35 N4MnFtqxmDEspAS+PGRp zqMblKqxIA1jRtRi u4ugt2CkUZvyQ0BrHPPa DIwaSvo8COSqTOK7yZU9 vD5fFQZgJChrd5G2xTO2 K3SydqVsun0ue3wm HFRgVXqhB19vvVHnk5B7 LZMukOD4VFLzqZaqXyMv aY60Syb+FFOauLxvs4Ye Rmuqk1msn9axkDv3 IjMwJSIgdmFsaWduPSJ0 g2HdQp35N33rONhcSXHm PMVgAEQwWENttWnztz2u gL2wBs0+PGNvbCB3 dOV1qL5fMPLmFsR5YCmq V305XpGzpVDtXsfai4km m9ngrQe2CdCtTLEzhrIb vCkjOKI9o9DtTw74 G33gVWmsSYWvBVMuWEPg ALOvcWainn9eqS8pVk0+ TY0zf0ijkk54dS48nUH+ VMUkHUD5wQzjBAds GNWgjB2aJKndMeE3HYBu NrUuzM31kDVtZQtbKn3w dVvcyNzdMU0zGZNigpza d115XeCuv5zyUHHu fTQfTMupVFI7D21bi5R7 NWVuBYLoMHA9qXF5rE0s bGlnbjogbGVmdDsgdmVy gHnyPZltLQcaC346 IHRvcDsnPlBhdGllbnQg RdRwVWs6M1NkSzs4LREe bMcqXU0ohWFoXOlyWi1w yZybfCprAM3wOAGy ggmae980ZvVtz9pkPZKl ePLpAOlxLCS9Z58sj2G6 DUZlMYZgVSM4pEB0vS0j bGlnbjogbGVmdDsg vtUfyVemFGvsWJapC063 IHRvcDsnPkJpcnRoIERh dYI8WY94PS34cQXjm8Y3 uZQ0S8KiUCDczdvk asumfZV0JCHaPHGzdK69 Pt0krKysAg3nJVDiVCX9 PADonKVbE2BfgS4oSmQh WYPaKXQcX7UcsELo QTpfJ290UOkyZmP4MRYt boXpM6MxGFPvqShvOxW4 u2N1Bb6KL4S4XC22ON07 wSKfi0S8mGR2X6Mk MXFtyqbfxwnnnSN8EOBe ASFxhC55Iz4fzAfwAa0w ZEPeDUM5GQOnbWFhM4Dr nY3aDxDkLADhMKBy D7EgrNVbKXzjF286IHzw TtT9ITAeonLbD9JiJWTl iYnaXzD5m0Y1Bv7LJGw1 YY36AH66nDNkl4B4 tRP6R4BgHJYciolkjxil eUM0FFEoEBRdgO99Nc6d gPoaCv9fMTHmUQU4IBUc yEJoX1CeyB2vRzVd MHTtSTUbO7ZksCRkDYgt A624VKqsRzO1ESDisnFc F5EoKTUceOihBvJ4h0R5 Yt7ASYPwHD78QKG8 fSR9XE94MR51A2LwEmas dGFibGU+PHRhYmxlIHdp ZHRoPScxMDAlJyBzdHls QN9sVt4qEUCdVUCl eDclhPGaZzHhw5hbVTCq YNtoBM9wrCibT7OfkVY4 IFJkh4l9Tt37B25tF1Fg dXA+EOOkqBH2oGC8 nC7uKcNpTsF8BKvgG812 XpWuqOFzRuhoo4gtg7yf aCd8MyR5AZBrrpHehMxj LGI5a2TzOo19I86i IHdpZHRoPSIxNSUiIHZh sHwguv5xbU0gUa3+PGNv tJK1oXV1nZ8rLmWqSqS1 WVdlN401CiRdjHUz Rvvom5spr8onhRr4PlNt RJZzceFluYnwEWB7c2Ki Fb87G0YllZaez9TyQfj8 rq01tYMxi4K4lTR9 W1NbQEHpiztibYObxNah CJ5pHWKrlmvlEMLcwL9m LEJgG2i4GrRiHkS3SFuk X5EyhzQ7BQVozSDt JHkyDVW9E05ti4B1ZDHb YLJfTAN2nYX1vB2ltJgb bjogbGVmdDsgdmVydGlj ARnmGKifM819PAMg cVieIRZedM0yAPJtiTMa iWwoIC3vTHKkxaqqNzCZ RrnPWg9hNJANJmBGJ6Lc TDwvdGQ+PHRkIHN0 mSvjMAdpFVCcjU7gAEGx V0o9CdTvAcJ4HSivQ2Ra NMRrymycPc55zI6pCkFu HfD7HOnpW3OvjoC2 YIHanOMtOUguHTO4Y43h r9J6JFCmZULzAVI7gOA2 zD9dhNhvtcvpoMNqyTma dmVydGljYWwtYWxp S413MURmvKedQfN9CpBd EgE1WJR4J1GfIrp6BRZh zDtwZN2rjFTbZHhoMo2f kMofnPhsIW0mHBDo ajgfVECbcL0uAINqhGCk aOibKO9pEOPlxpfnk640 MqDiHGP3KNOlnQBmR5Cv bE2lWnFxQZGgBLCw W8VzzIPoZFdtK289JYsb ZtC7LSMhguPiQ8KxDMBy sEkrLmT1i9C1Uk4hMJZQ ZWFyczwvdGQ+PHRk RJS2vFdkIYkyYYDsxK0i JUXgZ3r2PmAbRlJ9SOme K5JbJOQbrwfuVh66dH4t ZwDlRzY1QDphS3Hc ceN4XBQadCWmYEktKZJ1 N32ax2L9AFAmBKVlMKY5 eVJ5fB1wyCdcbdfjjGUc dDsgdmVydGljYWwt CDokE990DRDmtXsqAuFj bWFsZTwvdGQ+PHRkIHN0 zVruJPvtCUNxkB1bCXIc C4w7RpQcVuM3SAqq I7NsMEXxowsjNo89xY6k LpFvSeT0PRtdE7FgoeF6 OKRwqFEcRTruEUL0A39l j9X8YJCbGIImUCQ1 uIM3fR0rbFknxkufySXg dDsgdmVydGljYWwtYWxp V150FZTgkGsfNu3EROKl aWFnZTwvdGQ+PC90 rd62Y6UzAxbqZid9SOBt PZA4lDF5xN5bJXCxDJxg m2D8dAK5Q9MeoyReyc3v t3gqCKCuRWfeR84q gWIwv4T3UQPsrJV7QLWr sVehWkHihU86Jbz+PGNv bCnsm2TbTzraf7lzn1wp cGx9WsGbRODhdxTv kOurGIB6z7ElJy45E60g IHdpZHRoPSIzMCUiIHZh vTprks9ztG0iIk3+PGNv kNI9xGK3uR5iUvFx RlL7NPfmP867GqPqnQZa Boedp8nme0zhmVj9GrTl EESwczWwbEyzATF6f7Dw Xl01F0AsmWpil8Po Vcy2cb02qHCuf1I8sHY8 J7PqINVdieorsGCsoWzg ZI8iHGEdgbntPLMgrU1s TMOgR7o6ZeTjWhD6 VVxsP9XzttB3IETnlQKk XADhiPWDuG1wontrp7ed rxezHcFwMHWvLOu2BPw3 LWFsaWduOiBsZWZ0 DmI1UVR8wCVtvV8apIcl onpbvS0sLdd+ECi8r0wh eIClSH4opPQ9IK98PT71 vJYra9H8rSL0C1Jb PDBumcrqsdivfRA2WTJj LOFzrM41Jj2pwIkfRq0v CXIvVRB7YTLfoCNzO3Ub pM6fMqWiOFXqYJPi A3PnbAOcUZxmM779EHzw PxP1ZWQlcmGaR5IuMFPs dNccArF4k4L2Dv3AAC55 SB46MH28sZEmz1W5 oVP5P6MtXHDmqjamsjfe hVN0IWCyNFMdsN47Nk4w wGbbWq9oLZPxEQH8JZUz kJWgW2MzaN6hQvWa CCMvEUYlX0ByfHUfFHyq K682BXehSmV7DTKdnnCw Y8YtHCUbxGelYcB6d7J8 Ck8GSj99QM82GC85 zHUhr8V2rPH4T9MmLPBl hwynnhjxdJU4PTYfACGr dD73Ov9nrDsdMi5fSTJm VMP2SCYkoQAmH2Ve eR3mRvMyEIFwKEHrZ0Wd kQPqKYlgL512SImmQqY1 WNHddnCsQ3GfNKPmuKeo GqE0e0E4Vz9XORfb drc6M7ZpEiwdnRV+PC90 IXKgAH32bVIohCEys2mp xYn3OtXxNPVdIFV3cDst VHfwd4FzOPMpV41m bGFw (more content not included)... [facility] Consent for Treatmenton Consent for Treatment [id number] #1.00CD:[address] [facility] Discharge Instructionson Discharge Instructions [id number]#1.00CD:[address] [facility] Comment on above: Other Comment: incco rrect title Discharge Instructions [id number]#1.00CD:[address] [facility] Inpatient Clinical Summaryon 07-26-2020 Inpatient Clinical Summary [address] [address] Clinical Summary Person Information Name: MYA MYLES Ifeoma/[facility] Age: 30 Years : 1990 Sex: Female PCP: Chao Blackwell III, DO Marital Status: Single Race: White Ethnicity: Non- or Language: Brazilian Visit Id: Visit Reason: CONTRACTIONS Speciality: Acuity: Enc Type: OB Triage Med Service: Obstetrics Arrival: 07/26/2020 14:59:40 Discharge: 07/26/2020 16:40:00 Dispo Type: Home (Routine DC) Address: [address] [place] [address] DR BREAUX MD [phone] Provider Notes: Diagnosis: Problems Active Insomnia Chronic [...] every day. Care Team Members: Attending Physician: Fnumilayo ESCOBEDO MD Consulting Physician: Referring Physician: Follow up: With: Address: When: Funmilayo ESCOBEDO [address] [place] [address] BiolineRx (1) Within 1 week Comments: Call for any problems. Call for fever > 100.5 F Return for contractions closer, longer, and harder Return for decreased movement Return if ruptured membranes or vaginal bleeding Type Location Start Finish State [facility] 07/27/2020 2:45 PM 07/27/2020 3:00 PM Confirmed [facility] 08/02/2020 4:30 PM 08/02/2020 4:45 PM Confirmed [facility] 09/15/2020 9:00 AM 09/15/2020 9:15 AM Confirmed Patient Education Information: Normal [facility] Inpatient Patient Summaryon 07-26-2020 Inpatient Patient Summary [address] [address] Patient Discharge Instructions PERSON INFORMATION Name: MYA MYLES Date of : 1990 Current Date: 07/26/2020 19:27:26 PHYSICIANS Admitting Physician: Funmilayo ESCOBEDO MD Primary Care Physician: Chao Blackwell III, DO PCP Comment: Discharge Diagnosis: Condition at Discharge: Stable MYLES MYA Abdulaziz [...] Follow up: With: Address: When: Funmilay[place] [address] Business (1) Within 1 week Comments: Call [...] Type Location Start Finish State [facility] 07/27/2020 2:45 PM 07/27/2020 3:00 PM Confirmed [facility] 08/02/2020 4:30 PM 08/02/2020 4:45 PM Confirmed [facility] 09/15/2020 9:00 AM 09/15/2020 9:15 AM Confirmed Comment: JUSTINO Burton VANESSA L, have received the attached patient education materials/instructio ns and have verbalized understanding. Patient Signature Date Clinican/Nurse Signature Date MEDICATION LIST Medications to Continue with No Changes Other Medications famotidine (Pepcid 20 mg Tab) 1 Tablets By Mouth 2 times a day. Refills: 2. Last Dose: Next Dose: metronidazole (Flagyl 500 mg Tab) 1 Tablets 2 times a day. Last Dose: Next Dose: multivitamin, ( Multivitamins) 1 Tablets By Mouth every day. Last Dose: Next Dose: Pharmacy Information: [facility] Bre[facility] PATIENT EDUCATION INFORMATION [...] to serve you. Thank you for choosing [facility] Normal [facility] UA With Cult Reflexon 2020 Bacteria LM Ql (Urine sed) TRACE Normal Trace [facility] Comment on above: Performed By: #### 2 [id number], [id number], [id number] #### [facility] [address] [facility] [place] [address] Bilirubin Ql (U) Negative Normal Negative [facility] Comment on above: Performed By: #### 2 980645, 7363543, [id number] #### [facility] [address] [place] [address] Clarity (U) CLEAR Normal Clear [facility] Comment on above: Performed By: #### 2 210228, [id number], [id number] #### [facility] [address] [place] [address] Color (U) YELLOW Normal Yellow [facility] Comment on above: Performed By: #### 2 022250, [id number], [id number] #### [facility] [address] [place] [address] Epithelial cells.squamous LM.HPF (Urine sed) [#/Area] 5-8 Normal 0-2 [facility] Comment on above: Performed By: #### 2 966837, 8932267, [id number] #### [facility] [address] [place] [address] Glucose Test strip (U) [Mass/Vol] Negative Normal Negative [facility] Comment on above: Performed By: #### 2 774435, 0970980, [id number] #### [facility] [address] [place] [address] Hemoglobin Ql (U) TRACE Abnormal Negative [facility] Comment on above: Performed By: #### 2 231959, 7506448, [id number] #### [facility] [address] [place] [address] Ketones (U) [Mass/Vol] TRACE Abnormal Negative [facility] Comment on above: Performed By: #### 2 451537, 8639221, [id number] #### [facility] [address] [place] [address] [place].plasma/[place]. RBC (Bld) [Mass ratio] 0-3 Normal 0-3 [facility] Comment on above: Performed By: #### 2 416252, 9193230, [id number] #### [facility] [address] [place] [address] Nitrite Ql (U) Negative Normal Negative [facility] Comment on above: Performed By: #### 2 285699, 7978815, [id number] #### [facility] [address] [place] [address] pH (U) 6.0 [pH] Invalid Interpretation Code 5.0-9.0 [facility] Comment on above: Performed By: #### 2 429006, 3296573, [id number] #### [facility] [address] [place] [address] Protein (U) [Mass/Vol] Negative Normal Negative [facility] Comment on above: Performed By: #### 2 775156, 0127546, [id number] #### [facility] [address] [place] [address] Specific gravity (U) [Rel density] 1.020 Invalid Interpretation Code 1.005-1.030 [facility] Comment on above: Performed By: #### 2 269623, 6784090, [id number] #### [facility] [address] [place] [address] Type of Urine collection method Clean Catch Normal [facility] Comment on above: Performed By: #### 2 979631, 9881171, [id number] #### [facility] [address] [place] [address] Urobilinogen Qn (U) 0.2 {Henny'U}/dL Normal 0.0-1.0 [facility] Comment on above: Performed By: #### 2 584729, 8649499, [id number] #### [facility] [address] [place] [address] WBC Auto Ql (U) TRACE Abnormal Negative [facility] Comment on above: Performed By: #### 2 926005, 7649379, [id number] #### [facility] [address] [place] [address] WBC LM.HPF (Urine sed) [#/Area] 0-5 Normal 0-5 [facility] Comment on above: Performed By: #### 2 129703, 1358731, [id number] #### [facility] [address] [place] [address] Yeast LM Ql (Urine sed) TRACE Normal F [facility] Comment on above: Performed By: #### 2 769340, 3063659, [id number] #### [facility] [address] [place] [address] Consenton 07-22-2020 Consent [id number] #1.00CD:127 Normal [facility] Consent for Procedure/Surger yon 07-22-2020 Consent for Procedure/Surgery [id number] #1.00CD:127 Normal [facility] US Follow Upon US Follow Up Exam Date/Time: 07/21/2020 16:30 EDT Reason for Exam: Size - measuring standard growth/amniotic fluid volume;growth q4w - anatomy completed with [facility] Report IMPRESSION: SINGLE LIVE INTRAUTERINE CORRESPONDING TO [...] by: Alexy Conn MD, V. Transcribed by: U Technologist: ADEN Technical Comments CLIFFORD 08/11/20 CLIFFORD Obtained CLIFFORD by US GA 37w 1d History 3 Para 2 Transabdominal Ultrasound Performed Placenta Location posterior Placenta Grade 2 Positioning Vertex Amniotic Fluid Volume Normal Normal [facility] Ambulatory Clinical Summaryo n 07-21-2020 Ambulatory Clinical Summary {[id number]}CD:[id number] Normal [facility] Ambulatory Clinical Summary {[id number]}CD:[id number] Normal [facility] Obstetrics Office/Clinic Not jasmine 07-21-2020 Obstetrics Office/Clinic Note Chief Complaint OB 37w, baby moving, swelling fingers and feet goes down with rest and elevating them Obstetric History History (1,0,0,2) # 1 Baby 1 Outcome Date: 2008 Outcome: Live Outcome or Result: Vaginal Gender: Female Gest Age: 41 weeks Wt: 3232 g Hospital: [facility] Benny Labor: -- Child's Name: -- Baby's [...] trimester) Ordered: Office Visit Level 4 Est 08988 TH 2. Obesity complicating , third trimester (O99.213: Obesity complicating , third trimester) Ordered: Office Visit Level 4 Est 91741 3. Depression during (O99.340: Other mental disorders complicating , unspecified trimester) Ordered: Office Visit Level 4 Est 32544 4. 37 weeks gestation of (Z3A.37: 37 weeks gestation of ) Ordered: Office Visit Level 4 Est 58504 TH Orders: metronidazole, 500 mg = 1 tab(s), Oral, q12hr, X 7 day(s), # 14 tab(s), Refills(s) 0, Pharmacy: [id number], 158, cm, 07/07/20 20:05:00 EDT, Height/Length Dosing, 88.3, kg, 07/14/20 16:41:00 EDT, Weight Dosing Follow-up With When Contact Information Funmilayo ESCOBEDO MD In 1 week [address] [place] [address]- Additional Instructions: Problem List/Past Medical [...] Mother and Father. Immunizations Vaccine Date Status diphtheria/pertussis , acel/tetanus adult 06/23/2020 Given Lab Results Ambulatory Point of Care Results Glucose Urine Dipstick: Negative (07/21/20 16:41:00) Protein Urine Dipstick: Negative (07/21/20 16:41:00) Normal [facility] Comment on above: Result Comment: Elec tronically Signed By: LAURA MACEDO, Funmilayo Garner.rosey\Date and Time Signed: 07/21/20 17:39 EDT Patient [...] Reviewed: 07/07/2019 Elsevier Patient Education ? 2019 [employer] [facility] Provider Letteron 07-21-2020 Provider Letter July 21, 2020 To Whom It May Concern, Mya Myles is scheduled to be induced on 08/04/20. [employer] [address] [facility] Ambulatory Clinical Summaryo n 07-14-2020 Ambulatory Clinical Summary {[id number]}CD:[id number] [facility] Obstetrics Office/Clinic Not jasmine 07-14-2020 Obstetrics Office/Clinic Note Chief Complaint OB 36w, baby moving, [place] in morning, feels like underwear are wet and has to shower frequently. Contractions all night and not able to sleep Obstetric History History (1,0,0,2) # 1 Baby 1 Outcome Date: 2008 Outcome: Live Outcome or Result: Vaginal Gender: Female Gest Age: 41 weeks Wt: 3232 g Hospital: [facility] [place] Benny Labor: -- Child's Name: -- Baby's [...] Test Q0114 Office Visit Level 4 Est 25102 NC 2. Obesity complicating , third trimester (O99.213: Obesity complicating , third trimester) Ordered: Fern Test Q0114 Office Visit Level 4 Est 36178 NC 3. Depression during (O99.340: Other mental disorders complicating , unspecified trimester) Ordered: Fern Test Q0114 Office Visit Level 4 Est 79852 NC 4. 36 weeks gestation of (Z3A.36: 36 weeks gestation of ) Ordered: Fern Test Q0114 Office Visit Level 4 Est 25892 NC 5. Bacterial vaginosis (N76.0: Acute vaginitis) Ordered: Fern Test Q0114 Office Visit Level 4 Est 42566 NC Orders: metronidazole, 500 mg = 1 tab(s), Oral, q12hr, X 7 day(s), # 14 tab(s), Refills(s) 0, Pharmacy: [facility] #[id number], 158, cm, 07/07/20 20:05:00 EDT, Height/Length Dosing, 88.3, kg, 07/14/20 16:41:00 EDT, Weight Dosing Follow-up With When Contact Information Funmilayo ESCOBEDO MD In 1 week [address] [place] [address]- Additional Instructions: Funmilayo ESCOBEDO MD In 1 week [address] [place] [address]- Additional Instructions: Problem List/Past Medical [...] type 2: (more content not included)... Normal [facility] Comment on above: Result Comment: Elec tronically Signed By: Funmilayo ESCOBEDO MD\.br\Date and Time Signed: 07/14/20 17:27 EDT Patient [...] 05/13/2008 Document Revised: 07/07/2019 Document Reviewed: 07/07/2019 [employer] Patient Education ? 2019 [employer] [facility] Coding Summary.on 07-12-2020 Coding Summary. CD:[id number] Gh0bWw+PGhlYWQ+PE1FV IZyB66ckVZdtF2YL2gED U4OUKVHLLSTFK2EDJ8dh RA8PBjpL0WtqaZn PfefgTWxNE39JQx1SUB3 oVquZRynvT5blVHuO3e8 JjLvSV74aI22JIglTJPx TwR6YeFzgtzclWOc Y5oiEgYhkKCdOoy+PHRh YmxlIHdpZHRoPScxMDAl BxBgyVxqRS4bHl3hNAIs LWNvbGxhcHNlOiBj u8crRRTmPRjoFW9kqWfp K2YjsTP5ERQkh6f7Za15 dHI+ECQdPGH9yLmxXPsw g273TgKwx7hcYOT2 hFOlQFosVWH6B22fk2R2 JTHlQBArRNE8eWP9iB4u aCbzsbmxD8VsrHHpIiO7 YGB8qOXjeZ0jwLzd pgcdrO1uSqr+C39AXP6P TKUZVX8NVug5K7IqKczd dHI+TW67GDOjXS13lZTr gXCue2yoaOj6HkTl XGUlMNC0yTjzOAbbi7Nb LNNjY65zvRHme9R8OCLo pXjxaJZhUsBqjZC0pX8m DIasygyzg4axqyuk Srgst7uoms56eA53Q38p HGqjKYYhLXR9QNQzLDJr kSbhrd8ocY2bOc4+IDxj w8emo7ddmNy5GbDo ESYzomZzfCbdKSR9w9Fl Ti18R2OjeYxgs1ZyIuw5 am84oSAgx4T2sHJ3PQrk JRWamS7qDSvcMxW0 NZHgLsMftG25mAWsIJpw Gv1jzVdhkNlzMC5nFUIv vsnxSIJvrO3qRSEzfLXe fAieQO5sCGDakajh o871KmDrLVS2TZWhyIGf O6LqiT3xYdGmJJOuNWTd X6XfsXVeOBeaE607POsq JvK1CKXperLjG4Cc YZVpwKohSlV3p1J3Jl8M g7SjafycCIN7XMylICQ9 QnB6EbXrVdR9I0ReIsr9 PYBdkPbxFQ4yG7Yk NGUgddiygkvcsAK3OXHi KWZeaL34uLCsCZpnBq6l f5B6p901XJFhHRBdaW11 Nv2dvDxyJEMvlUAC xJ3ngmiav5obbhctGtEu JBByZMb8YCb9GWHpdCli BcRhZFZ9BfP1XSN1sWGt kF9kaTxcemxgrK2q Oyc+U18ggZ0kJWQ3XCD9 pmjiCPQbcbEaQV29ZW18 Q6HeIfaqhDFwhHY+PGRp ibEqfRlcUJ2vBoFh e6jjk2AmHYdyT9InHAEu RZsdIly0UXMnFZB2xZY0 eK2bTYPkMUvwc1Q9eQN6 Z2AppnCsgj8xk0qa AUHqIBprK66qwXLgf6V5 JJMfrKH5OZZdhYxaVjAx qC13Rxc+ACSdrXqnc7Uf Lulin7ydc4rfeKe7 IjMwJSIgdmFsaWduPSJ0 g7GiUt01Z74aPVozVXMh PKCoSPDkNKOfkXutoo8z kD4jHq7+PGNvbCB3 dFT0bM9hGGFvIlP1LJje G049LeZnhOXzPcwlq5ru e2kpkVx7QcPyZBDgjgDb sXqoCHO1r0ZlFp25 V67zFNriSHOoHHKmWNEb PWDkeIgoyi9xyC8dAy7+ FJ2nx1gpua03qK69aRZ+ GCSoDTO6sGxfIZdc JAWsjT2pIIerVhC1GHZa XqRaiZ19bDMyGTguWr7o oVrliBcuRL7tCRLrdrkd d950IiLkg2qfLUBu uAKzVYzwWTE3E64aq2A6 ZEIrKLMbZOE7xHO2bK2s bGlnbjogbGVmdDsgdmVy aEzjMHjlZJjwD531 IHRvcDsnPlBhdGllbnQg IlVtYQl0L0NzRyf3XIGc mTbzBK8jcXKfLUmqMg3b oMccuGgvDP7tHTGf mqder034BwDuh5zoRYUw nVZqOKhyALQ6I34ak9Z4 PKRbJVKwSOR6sCR9qY0m bGlnbjogbGVmdDsg uiZnqMyrARvbDSpfN998 IHRvcDsnPkJpcnRoIERh fHJ4VR82MJ31yPUnd1N8 yZH7H9JiVLDnpinx ukcvxLA2QEKjAJQynV15 Wc0nfNiyNv7kVVWpGXM8 NDVauZBvS1OgwE8hUrDw ZQHeLXNvC8VguFWv CBttR144AHbpDyP7FJUj rgFrG4WfOVNhhUlwTdH5 p5Z3Wh4IO8G9CF27DM70 qXNjs4M9mYW7Q9Fg ADAgjwpscckooLG5RRPx JWGtsO84Qy7suMhqCy8q TLZgZPI5JSCadPRnS9Rr bK3iSkYkNTZuMQIy V6PgcMZmATvtG818HMds AvE7PKDatrYbT2WjMWUp yDmaRwW2v0C0Zc2CKPk4 BC34ZJ21nZAsr2E4 zNG9O5OyOJYhedlhspif jWK9EAWpMGCqbQ56La4o gDyjQb3oTUMwFYA0LWFw nGVuE5OlsS3hRfQs CGNpJGElO8FotPIcDPay V653BWqyGbX0FIMqerWf H1VhFMYeuSrrZkT4m0S7 Ts3BBRUxUD59MXO6 cEL3UC06YR81Q1QfBaiu dGFibGU+PHRhYmxlIHdp ZHRoPScxMDAlJyBzdHls DH3nGe2kNSCfJLGr lMqvnRWkBzGmd8mjBBBr KWlgVO9adPddA5AnqDX8 TQFeo8x1Ap37J68iY6Ou dXA+MZJjrMP1eUL5 zK5qUrWmGiU0ZBrxO981 RgRxkCSoVxwjs6sli3rx xIr5DwY7ROFcbfHckJzb WJV2a1RcCc16E21g IHdpZHRoPSIxNSUiIHZh rFdddx0pvM1qDy1+PGNv nLY2lVO2aG1kVaFxXbY8 CQvpN628GwThxCHh Ebmgh4kju4gilPx3CtHh KIMxggDawPpjIDI9j3Xx Ya32E7MvnPsur5GcNpf4 os44cCGla2U7jLM8 J3AdQBRugohozLKtiWbx EZ0zKGHmrltjARUldO1u FSVwS0d1YiYpDhM4YPln B7QkgpP3QHKcyYWa JSyvOTT2X48gp7I9EWJy BGYtHRX9eRB6mJ7brRap bjogbGVmdDsgdmVydGlj QYowSXdkH072BNTv yTluHXOvrH2vZTHklVUl eTssOB9jTSBlzwofKaJX ItfTZl2gPSTCDqVST4Ha TDwvdGQ+PHRkIHN0 lHcqJOvnUTRrtH1qVLKb H8r3FfBmQhJ1FTqiX7Td FHFkyjkkYx54oH7rLwEf OqK5LLqwO3OazfX8 EQYhmRDmRJrkZTU8C47l p9D4WYPcQQAcWQN3nGA3 lO8srJwqaxvkcLEpjFcp dmVydGljYWwtYWxp Y157EBRxtZdjYtO6BwCs OtP1QSO0T7KsVba8WSQo xWesXU8irNSiWKwdCe4t uAyvyWkzLK5eWWIq cgyrXZZkoQ5uDWVijBNh nIpkAS9hVGCephlwc285 UhWjZCM8RKGwkMYuV9Ks tP5aChXhIGTbUVNh M9RddWVfKUeuT327NRak CaC8MZWwenKbT5WjYIHz gFqpZvF8u5O2Fh4yOFTR ZWFyczwvdGQ+PHRk BBZ4cFtbNPekSJVcbE6t UPSkP0y2FbDdLrR0WWok X4IjAMMzokshXr55oW9e OhElJzQ4DZwaY7Te miF2YELvjMHePJcoTOV2 Q05fm4H3EDGpHYSyXBU5 iIL8iA6fwFdodmrvpXKo dDsgdmVydGljYWwt SSagM231WSSueKgjWsPm bWFsZTwvdGQ+PHRkIHN0 uUzkMRnpJUIgqR9dSHJa R8p8GnWdPpD2NWuq C0AjJNYszaqgDi75zA7h JfLuLjP8RWakO2EwxvD4 GOLpoLHrDRsnWEU4R45t u6Y1JZZrQBCfFRJ1 cNU0oJ0zrRmzsfgqbOGe dDsgdmVydGljYWwtYWxp S358BIMtmFcgDx6SSKZb aWFnZTwvdGQ+PC90 df38R5ZsVqoqLwl0ISGv QHI8hCH2qL1eCGBlQCat b1D6gUX1G9EpmjXrhx2j i1woPZByKNmiB64e zEBpp7T2ESEnzYS8MXGt pPkoLzJhhW31Nvf+PGNv iTvlr0JwKddpi9hiw5ic eBo2NfObMAMbzyHg xAakNON2t4AxRk44P12u IHdpZHRoPSIzMCUiIHZh vSxqog8vvT3kCb5+PGNv kAH3iZO4rV2dVmFp FfE9IIxwR040IzHekWUh Ixbsh1eeu8hskUf2HzEh JNVwpuPxePmrZXS0k5Fg Mg46L7FitPzva9Yh Qxc5yo55gRGlc9Z9dZF1 T5AhKJQvbtbhiRWqbZdb SW6dXILnudvxZYAkvP8y ZLUgH7l4HxShMhW1 XAitH1HpvvR7WHWxpRNn ECEyjZVYrP8igjrlg4zp qoyyWxLlCLEzIQc2ETc8 LWFsaWduOiBsZWZ0 OxK3MVS7eYZcnE0mvUcv qakfsX6cQbi+CDl8e1ht bEYuZR6ogAA6PF40CV12 aLMzw9A5tLQ6J0If OLHfytgrhrxxeSX2GROc TDVxaY82Ao5acArvRo0m FFFdUDK2BUUfmPLgW3Vh zK5eOvNsELWcSFIy M4ZpfBLbTQooE255RGpd ZbF2HXKfbeTmU3EoBROc cEinRkH1k3I6La8CER43 BC66BM78nSMob9E9 pLD7K0BuOPDcybvlylmd jHC1TENqPUCctA39Hk2g bKyqFh5iCWKjXHL1MPNu sHBdG9ExnW3eDmSq OIBdBKTjK0XmxRBnGHmk T009YFgwDlS9GRSnafGs S3MhLYItoJmnDqV4d7K3 Ak6LJb56JP23DQ94 oZNqs8F7wCN0P3VlZSZq nptzgzudzSO8DSRkEBTo zX82Ji1uhKrxSe9xBPWj IJI5WCPmkKPlB8Xz uG6uTvViAWDjROXsM0Ve xRXjQBdhM457JEetVhK5 HLKmpxAbZ3GhWIXdqTen UrC3q3C4Vr2KKFwy utj2D1ZpLvoknKV+PC90 COMvVV96aYJreBPao2ab yOq9YxOaFCUqPVD1fUdr QLigf4QsZFMoI33g bGFw (more content not included)... Normal [facility] Insurance Correspondenceon 0 07-12-2020 Insurance Correspondence [id number] 8#1.00CD:127 Normal [facility] Insurance Correspondence Off iceon 07-12-2020 Insurance Correspondence Office [id number] 1#1.00CD:127 Normal [facility] Nursing Assessmenton 021 Nursing Assessment [id number] 8#1.00CD:127 Normal [facility] Group B Strep by PCRon 07-09 Group B Strep colonization by PCR Negative Normal Negative [facility] Comment on above: Order Comment: vagin al swab Performed By: #### 2 160081, 5950304, [id number] #### [facility] [address] [address]457 ABO/Rhon 07-08-2020 ABO/Rh Positive Invalid Interpretation Code [facility] Comment on above: Performed By: #### 1 1039438, 59660718, 0614789, [id number] #### [facility] [address] [place] [address] ABO/Rh History Checkon 07-08 ABO/Rh History Check Verified Hx Blood Type Normal [facility] Comment on above: Performed By: #### 1 3969032, 38020114, 9812568, [id number] ####[facility] [address] [place] [address] ABSCon 07-08-2020 ABSC Gel Interp Negative Normal [facility] Comment on above: Performed By: #### 1 0278428, 57357573, 8173679, [id number] ####[facility] [address] [place] [address] BUNon 07-08-2020 Urea nitrogen [Mass/Vol] 7 mg/dL Normal 07-08 [facility] Comment on above: Performed By: #### 2 511748, 7573602, [id number] #### [facility] [address] [place] [address] Blood Bank ID#on 07-08-2020 BBID# [id number] Invalid Interpretation Code [facility] Comment on above: Performed By: #### 1 5689938, 65561468, 4862480, [id number] ####[facility] [address] [place] [address] CBC w/Indiceson 07-08-2020 Erythrocyte distribution width (RBC) [Ratio] 13.6 % Normal 10.9-14.2 [facility] Comment on above: Performed By: #### 2 544052, 4552883, [id number] #### [facility] [address] [place] [address] Hematocrit (Bld) [Volume fraction] 28.9 % Low 34.0-46.0 [facility] Comment on above: Performed By: #### 2 852994, 8581052, [id number] #### [facility] [address] [place] [address] Hemoglobin (Bld) [Mass/Vol] 9.7 g/dL Low 12.0-16.0 [facility] Comment on above: Performed By: #### 2 099950, 0688446, [id number] #### [facility] [address] [place] [address] MCH (RBC) [Entitic mass] 27.4 pg Normal 27.0-34.0 [facility] Comment on above: Performed By: #### 2 345012, 0793670, [id number] #### [facility] [address] [place] [address] MCHC (RBC) [Mass/Vol] 33.5 g/dL Normal 31.4-36.0 [facility] Comment on above: Performed By: #### 2 114001, 3457623, [id number] #### [facility] [address] [place] [address] MCV (RBC) [Entitic vol] 81.7 fL Normal 80.0-100.0 [facility] Comment on above: Performed By: #### 2 822933, 1249411, [id number] #### [facility] [address] [place] [address] Platelet mean volume (Bld) [Entitic vol] 7.9 fL Normal 6.4-10.8 [facility] Comment on above: Performed By: #### 2 333079, 1809760, [id number] #### [facility] [address] [place] [address] Platelets (Bld) [#/Vol] 320.0 E9/L Normal 150.0-500.0 [facility] Comment on above: Performed By: #### 2 112449, 5882645, [id number] #### [facility] [address] [place] [address] RBC (Bld) [#/Vol] 3.5 E12/L Low 4.3-5.9 [facility] Comment on above: Performed By: #### 2 905750, 8155237, 360997210 #### [facility] [address] 2240457 WBC corrected for nucl RBC Auto (Bld) [#/Vol] 9.9 E9/L Normal 4.0-11.0 [facility] Comment on above: Performed By: #### 2 212624, 2864218, [id number] #### [facility] [address] [place] [address] Creatinineon 07-08-2020 Creatinine [Mass/Vol] 0.4 mg/dL Low 0.5-1.3 [facility] Comment on above: Performed By: #### 2 857864, 6450523, [id number] #### [facility] [address] [place] [address] Discharge Instructionson Discharge Instructions [id number] 8#1.00CD:127 Normal [facility] FSPon 07-08-2020 Fibrin+Fibrinogen fragments (S) [Mass/Vol] <10 Normal <10 [facility] Comment on above: Performed By: #### 2 555618, 4078386, [id number] #### [facility] [address] [place] [address] Stainon 07-08-2020 FMHV 0 mL Invalid Interpretation Code [facility] Comment on above: Performed By: #### 2 799932, 1781023, [id number] #### [facility] [address] [place] [address] Negative Control Negative Normal [facility] Comment on above: Performed By: #### 2 428179, 9517867, [id number] #### [facility] [address] [place] [address] Fibrinogenon 07-08-2020 Fibrinogen Coag (PPP) [Mass/Vol] 451 mg/dL High 200-393 [facility] Comment on above: Performed By: #### 2 928170, 4172879, 748390565 #### [facility] [address] [place] [address] Hep Func Panelon 07-08-2020 Bilirubin.indirect [Mass or moles/Vol] UTC Abnormal 0.1-0.9 [facility] Comment on above: Result Comment: Resu lt verified by Discern Rule. Performed result UTC (Unable to Calculate) was sent as an Alpha code due the inability to calculate a valid numeric value. Performed By: #### 2 462297, 4111077, [id number] #### [facility] [address] [place] [address] Albumin [Mass/Vol] 2.6 g/dL Low 3.3-5.0 [facility] Comment on above: Performed By: #### 2 716254, 7903755, 373563912 #### [facility] [address] [place] [address] Albumin/Globulin (S) [Mass conc ratio] 0.8 Low 1.1-2.2 [facility] Comment on above: Performed By: #### 2 756324, 9612941, [id number] #### [facility] [address] [place] [address] ALP [Catalytic activity/Vol] 108 Int._Unit/L High 21-98 [facility] Comment on above: Performed By: #### 2 071520, 4765200, [id number] #### [facility] [address] [place] [address] ALT No additional P-5'-P [Catalytic activity/Vol] 13 Int._Unit/L Normal 6-46 [facility] Comment on above: Performed By: #### 2 472653, 8574214, 655354536 #### [facility] [address] [place] [address] AST [Catalytic activity/Vol] 22 Int._Unit/L Normal 5-43 [facility] Comment on above: Performed By: #### 2 012616, 4518214, [id number] #### [facility] [address] [place] [address] Bilirubin [Mass/Vol] 0.4 mg/dL Normal 0.0-1.1 [facility] Comment on above: Performed By: #### 2 828415, 9670581, 362481079 #### [facility] [address] [place] [address] Bilirubin.direct [Mass/Vol] mg/dL Normal 0.1-0.4 [facility] Comment on above: Performed By: #### 2 730174, 9865078, [id number] #### [facility] [address] [place] [address] Globulin (S) [Mass/Vol] 3.4 g/dL Normal 1.4-4.0 [facility] Comment on above: Performed By: #### 2 071494, 6518686, 659837220 #### [facility] [address] [place] [address] Protein [Mass/Vol] 6.0 g/dL Normal 6.0-7.8 [facility] Comment on above: Performed By: #### 2 400693, 7099472, [id number] #### [facility] [address] [place] [address] Inpatient Clinical Summaryon 07-08-2020 Inpatient Clinical Summary [address] [address] Clinical Summary Person Information Name: MYA MYLES [place] Age: 30 Years : 1990 Sex: Female PCP: Chao Blackwell III, DO Marital Status: Single Race: White Ethnicity: Non- or Language: Brazilian Visit Id: Visit Reason: Speciality: Acuity: Obs Enc Type: OB Triage Med Service: Obstetrics Arrival: 07/07/2020 19:39:51 Discharge: 07/08/2020 21:22:00 Dispo Type: Home (Routine DC) Address: [address] [place] [address] DR BREAUX MD [id number] Provider Notes: Diagnosis: Problems Active Obesity complicating [...] every day. Care Team Members: Attending Physician: Karime MACEDO, Sukhdeep Olivera Consulting Physician: Referring Physician: Follow up: With: Address: When: Fun[place] [address] Business (1) In 3 days 07/11/2020 Comments: Call Dr. Kramer office Saturday morning to see if she wants to see you sooner. If not keep appointment. Call for any problems. Call for severe abdominal pain Call physician for heavy vaginal bleeding (more content not included)... Normal [facility] Inpatient Patient Summaryon 07-08-2020 Inpatient Patient Summary [address] [address] Patient Discharge Instructions PERSON INFORMATION [...] Follow up: With: Address: When: Funmilayo ESCOBED[address] [place] [id number] Business ([employer] In 3 days 07/11/2020 Comments: Call Dr. [...] Type Location Start [facility] 4[facility]30 PM 07/14/2020 4:45 PM Confirmed [facility] Ultrasound [facility] 07/21/2020 4:00 PM 07/21/2020 4:45 PM Confirmed WH SOV [facility] 07/21/2020 4:30 PM 07/21/2020 4:45 PM Confirmed WH SOV [facility] 07/27/2020 2:45 PM 07/27/2020 3:00 PM Confirmed WH SOV [facility] 08/02/2020 4:30 PM 08/02/2020 4:45 PM Confirmed WH [facility] 09/15/2020 9:00 AM 09/15/2020 9:30 AM Confirmed Comment: JUSTINO Burton VANESSA L, have received the attached patient education materials/instructio ns and have verbalized understanding. Patient Signature Date Clinican/Nurse Signature Date MEDICATION LIST Medications to Continue with No Changes Other Medications famotidine (Pepcid 20 mg Tab) 1 Tablets By Mouth 2 times a day. Refills: 2. Last Dose: Next Dose: multivitamin, ( Multivitamins) 1 Tablets By Mouth every day. Last Dose: Next Dose: Pharmacy Information: Lawanda Breaux PATIENT EDUCATION INFORMATION [...] Document Released: 05/03/2009 ExitCare? Patient Information ?2009 L2. Labor and Information normally lasts 39?41 weeks. [...] or tightening. (more content not included)... Normal [facility] Lyteson 07-08-2020 Anion gap [Moles/Vol] 9 mmol/L Normal 6-16 [facility] Comment on above: Performed By: #### 2 335692, 6270824, [id number] #### [facility] [address] [place] [address] Chloride [Moles/Vol] 108 mmol/L Normal 101-111 [facility] Comment on above: Performed By: #### 2 711287, 1283450, [id number] #### [facility] [address] [place] [address] CO2 [Moles/Vol] 21 mmol/L Normal 21-31 [facility] Comment on above: Performed By: #### 2 823851, 8597784, [id number] #### [facility] [address] [place] [address] Potassium [Moles/Vol] 3.4 mmol/L Low 3.5-5.3 [facility] Comment on above: Performed By: #### 2 004666, 1916605, [id number] #### [facility] [address] [place] [address] Sodium [Moles/Vol] 135 mmol/L Normal 135-145 [facility] Comment on above: Performed By: #### 2 771804, 2567222, 833832304 #### [facility] [address] [place] [address] PT & PTTon 07-08-2020 aPTT Coag (PPP) [Time] 25.4 second(s) Normal 25.1-36.5 [facility] Comment on above: Result Comment: Hepa rin therapeutic range (represented by Anti-Factor Xa activity of 0.2 - 0.4 U/mL) corresponds to PTT of 56.6 - 109.0 sec. Performed By: #### 2 231978, 4911212, 140292405 #### [facility] [address] [place] [address] INR Coag (PPP) [Relative time] 1.0 {INR} Invalid Interpretation Code [facility] Comment on above: Result Comment: INR results are specifically intended to assess patients stabilized on long-term Anticoagulation therapy suggested INR?s ?Less Intensive Anticoagulation? 2.0 ? 3.0 Conventional Range 3.0 ? 4.5 Performed By: #### 2 052289, 3786663, [id number] #### [facility] [address] [place] [address] PT Coag (PPP) [Time] 12.2 second(s) Normal 10.2-12.9 [facility] Comment on above: Performed By: #### 2 122132, 8540005, [id number] #### [facility] [address] [place] [address] Uric Acidon 07-08-2020 Urate [Mass/Vol] 2.7 mg/dL Normal 2.2-7.4 [facility] Comment on above: Performed By: #### 2 945569, 8356159, 027485612 #### [facility] [address] [place] [address] eGFRon 07-08-2020 GFR/1.73 sq M.predicted among blacks MDRD (S/P/Bld) [Vol rate/Area] mL/min/{1.73_m2} Normal >=59 [facility] Comment on above: Order Comment: Order Added by Discern Expert. Result Comment: eGFR is race adjusted. AA=. Performed By: #### 2 386224, 0719631, [id number] #### [facility] [address] [place] [address] GFR/1.73 sq M.predicted among non-blacks MDRD (S/P/Bld) [Vol rate/Area] mL/min/{1.73_m2} Normal >=59 [facility] Comment on above: Order Comment: Order Added by Discern Expert. Result Comment: [employer] ramesh kidney disease could be indicated at eGFR's of less than 60 mL/min/1.73m2. Kidney failure is indicated at less than 15 mL/min/1.73m2. Performed By: #### 2 011638, 8433588, [id number] #### [facility] [address] [place] [address] AmniSureon 07-07-2020 PAMG-1 Protein Negative Normal Negative [facility] Comment on above: Performed By: #### 2 469167, 6621693, 216294904 #### [facility] [address] [place] [address] PAMG-1 Protein Internal Control Positive Normal Positive [facility] Comment on above: Performed By: #### 2 913273, 2748773, 085760927 #### [facility] [address] [place] [address] Consent for Treatmenton 06-19 Consent for Treatment [id number] 3#1.00CD:127 Normal [facility] Consent for Treatment [id number] 9#1.00CD:127 Normal [facility] FFNon 07-07-2020 Fibronectin. Ql (Vag fld) Negative Normal [facility] Comment on above: Result Comment: In [...] the antibody-antigen reaction. Performed By: #### 2 747457, 0112653, [id number] #### [facility] [address] [place] [address] UA With Cult Reflexon 2020 Bacteria LM Ql (Urine sed) 1+ /HPF Abnormal Trace [facility] Comment on above: Performed By: #### 2 413639, 0481180, [id number] #### [facility] [address] [place] [address] Bilirubin Ql (U) Negative Normal Negative [facility] Comment on above: Performed By: #### 2 671819, 4246483, 601553211 #### [facility] [address] [place] [address] Clarity (U) CLEAR Normal Clear [facility] Comment on above: Performed By: #### 2 064793, 2925914, [id number] #### [facility] [address] [place] [address] Color (U) YELLOW Normal Yellow [facility] Comment on above: Performed By: #### 2 275307, 8967806, [id number] #### [facility] [address] [place] [address] Epithelial cells.squamous LM.HPF (Urine sed) [#/Area] /[HPF] Normal 0-2 [facility] Comment on above: Performed By: #### 2 493401, 5074966, [id number] #### [facility] [address] [place] [address] Glucose Test strip (U) [Mass/Vol] Negative Normal Negative [facility] Comment on above: Performed By: #### 2 404231, 5807414, [id number] #### [facility] [address] [place] [address] Hemoglobin Ql (U) 2+ Abnormal Negative [facility] Comment on above: Performed By: #### 2 848782, 9872247, 107004033 #### [facility] [address] [place] [address] Ketones (U) [Mass/Vol] TRACE Abnormal Negative [facility] Comment on above: Performed By: #### 2 081788, 4490664, [id number] #### [facility] [address] [place] [address] Keyport.plasma/[place]. RBC (Bld) [Mass ratio] >30 Abnormal 0-3 [facility] Comment on above: Performed By: #### 2 103900, 1864806, [id number] #### [facility] [address] [place] [address] Mucus Ql (Urine sed) TRACE Normal [facility] Comment on above: Performed By: #### 2 271429, 8820843, 995194832 #### [facility] [address] [place] [address] Nitrite Ql (U) Negative Normal Negative [facility] Comment on above: Performed By: #### 2 445705, 0820907, 939176811 #### [facility] [address] [place] [address] pH (U) 5.5 [pH] Invalid Interpretation Code 5.0-9.0 [facility] Comment on above: Performed By: #### 2 495776, 9388757, 093898528 #### [facility] [address] [place] [address] Protein (U) [Mass/Vol] Negative Normal Negative [facility] Comment on above: Performed By: #### 2 150311, 5410712, 585302139 #### [facility] [address] 2240457 Specific gravity (U) [Rel density] 1.025 Invalid Interpretation Code 1.005-1.030 [facility] Comment on above: Performed By: #### 2 314062, 6782477, [id number] #### [facility] [address] 2240457 Type of Urine collection method Clean Catch Normal [facility] Comment on above: Performed By: #### 2 470058, 5162602, 447290929 #### [facility] [address] [address] Urobilinogen Qn (U) 0.2 {Henny'U}/dL Normal 0.0-1.0 [facility] Comment on above: Performed By: #### 2 121810, 3375510, 537155133 #### [facility] [address] [id number] WBC Auto Ql (U) Negative Normal Negative [facility] Comment on above: Performed By: #### 2 [id number], [id number], [id number] #### [facility] [address] [place] [address] WBC LM.HPF (Urine sed) [#/Area] 0-5 Normal 0-5 [facility] Comment on above: Performed By: #### 2 [id number], [id number], [id number] #### [facility] [address] [id number] Ambulatory Clinical Summaryo n 07-06-2020 Ambulatory Clinical Summary {[id number]}CD:[id number] Normal [facility] Obstetrics Office/Clinic Not jasmine 07-06-2020 Obstetrics Office/Clinic Note Chief Complaint OB visit 34 weeks 6 days. Obstetric History History (1,0,0,2) # 1 Baby 1 Outcome Date: 2008 Outcome: Live Outcome or Result: Vaginal Gender: Female Gest Age: 41 weeks Wt: 3232 g Hospital: [facility] [place] Benny Labor: -- Child's Name: -- Baby's [...] Stable. Ordered: Office Visit Level 3 Est 03100 TH 2. Obesity complicating , third trimester (O99.213: Obesity complicating , third trimester) Doing well managing weight gain. Ordered: Office Visit Level 3 Est 89588 TH 3. Supervision of high risk in third trimester (O09.93: Supervision of high risk , unspecified, third trimester) Follow up in 2 weeks for appt and growth US. PTL precautions until 37 wks. Ordered: Office Visit Level 3 Est 82276 TH 4. 34 weeks gestation of (Z3A.34: 34 weeks gestation of ) Ordered: Office Visit Level 3 Est 61184 TH Follow-up With When Contact Information [facility] In [address] [place] [id number]- Additional Instructions: Problem List/Past Medical History Ongoing [...] Mother and Father. Immunizations Vaccine Date Status diphtheria/pertussis , acel/tetanus adult 06/23/2020 Given Lab Results Ambulatory Point of Care Results Glucose Urine Dipstick: Negative (07/06/20 14:59:00) Protein Urine Dipstick: Negative (07/06/20 14:59:00) Normal [facility] Comment on above: Result Comment: Elec [...] Document Reviewed: 07/23/2008 ExitCare? Patient Information ?[address] [facility] US Follow Upon Follow Up Exam Date/Time: 06/23/2020 15:12 EDT Reason for Exam: Size - measuring standard growth/amniotic fluid volume;growth q4w - anatomy completed with [facility] Report IMPRESSION: SINGLE LIVE INTRAUTERINE CORRESPONDING TO APPROXIMATELY COMPOSITE ULTRASOUND AGE: 33 WEEKS, 3 DAYS. NO GROSS ABNORMALITY IDENTIFIED. US Follow Up: 06/23/2020 2:35 PM CLINICAL HISTORY: Size - measuring standard growth/amniotic fluid volume, growth q4w - anatomy completed with [facility]. . LMP: 11/05/2019 CLIFFORD: 08/11/2020 Gestational Age [...] Signed by: Yousif Toribio M.D. Transcribed by: [facility] Technologist: ADEN Technical Comments CLIFFORD 08/11/20 CLIFFORD Obtained CLIFFORD by US GA 33w 0d History 3 Para 2 Transabdominal Ultrasound Performed Placenta Location posterior Placenta Grade 1 2 Positioning Vertex Amniotic Fluid Volume Normal Normal [facility] Consenton 06-24-2020 Consent [id number] #[id number]:127 Normal [facility] Ambulatory Clinical Summaryo n 06-23-2020 Ambulatory Clinical Summary {2w-2s-s6-a7-ea-01-4 1-35-z7-4z-z1-gj-59- 4f-09-56}CD:[id number] Normal [facility] Ambulatory Clinical Summary {1j-zl-2k-7a-46-b6-4 7-bh-0i-r2-03-01-99- 21-e0-30}CD:[id number] Normal [facility] Obstetrics Office/Clinic Not jasmine 06-23-2020 Obstetrics Office/Clinic Note Chief Complaint OB 33w, baby moving, swelling in feet. Having heartburn for about two weeks. Obstetric History History (1,0,0,2) # 1 Baby 1 Outcome Date: 2008 Outcome: Live Outcome or Result: Vaginal Gender: Female Gest Age: 41 weeks Wt: 3232 g Hospital: [facility] [place] Benny Labor: -- Child's Name: -- Baby's [...] trimester) Ordered: Office Visit Level 4 Est 89660 NC 2. Obesity complicating , third trimester (O99.213: Obesity complicating , third trimester) Ordered: Office Visit Level 4 Est 76176 NC 3. Depression during (O99.340: Other mental disorders complicating , unspecified trimester) Ordered: Office Visit Level 4 Est 43608 NC 4. 33 weeks gestation of (Z3A.33: 33 weeks gestation of ) Ordered: Office Visit Level 4 Est 15456 NC Encounter for immunization (Z23: Encounter for immunization) Ordered: tetanus/diphtheria/p ertussis, acel (Tdap), 0.5 mL, IntraMuscular, Once, Stop date 06/23/20 16:00:00 EDT, Routine, Start date 06/23/20 16:00:00 EDT EACH ADD'L Property Maintenance Supervisor Admin Component 12062 EACH ADD'L Property Maintenance Supervisor Admin Component [id number] FIRST VACCINE Property Maintenance Supervisor Admin Charge [id number] Orders: famotidine, 20 mg = 1 tab(s), Oral, BID, # 60 tab(s), Refills(s) 2, Pharmacy: [id number], 157, cm, 06/23/20 15:10:00 EDT, Height/Length Dosing, 86.7, kg, 06/23/20 15:10:00 EDT, Weight Dosing Follow-up With When Contact Information LAURA MACEDO, Funmilayo Ryan In [address] [place] [address]- Additional Instructions: Problem List/Past Medical [...] Mother and Father. Immunizations Vaccine Date Status diphtheria/pertussis , acel/tetanus adult 06/23/2020 Given Lab Results Ambulatory Point of Care Results Glucose Urine Dipstick: Negative (06/23/20 15:09:00) Protein Urine Dipstick: Negative (06/23/20 15:09:00) Normal [facility] Comment on above: Result Comment: Elec tronically Signed By: LAURA MACEDO, Funmilayo Ryan\.br\Date and Time Signed: 06/23/20 15:40 EDT Patient [...] keep your urine pale yellow. ? Take oeur-vzl-yvlbfuk and prescription medicines only as told by [...] 02/04/2006 Document Revised: 05/25/2019 Document Reviewed: 05/09/2017 [employer] Patient Education ? 2020 [employer]. First Stage of Labor Labor is your [...] when you walk around or lie down (Barry Mahmood contractions). This is also called false [...] monitor strap (more content not included)... Normal [facility] Coding Summary.on 06-12-2020 Coding Summary. CD:[id number] Gh0bWw+PGhlYWQ+PE1FV YUhI85eeFRddK2JJ9tKH B9YQSMPHACIKD8SCF4yb XK4IOgkP7SargSy WzrexQCoXB88KDk3YZI5 fXajQXpovS4dgLMtZ4z9 PtTcNA32gK18UQdkMQNm IqF5JsUlirdqkPYq U5tlLlLwmPUcQhn+PHRh YmxlIHdpZHRoPScxMDAl AbPpuMhkKM2bVy1jYFKo LWNvbGxhcHNlOiBj o6ukLBExOIftUE9qwRvf M3GglRG9YJLwg1s2Zu95 dHI+RYSoYKO9xKjpVVvo t927KgQes2fjPOA7 jTFhHEiwWSA9V75mn6P0 HEWpQXPgYCK8rPY1kG4z hFuinihdM0NyiOOeOaU3 ZQM0pMAtiF7qjOuq zyxwjC8uKuz+A12FMD2M QFLLQH6HKuz0W4HmDinz dHI+WD13KYScZE30pICc fUMjy7oyrLj2OaTc PFUaSEN0wTkjRLlzv4In CXKlW69ulYEay0Q1MIYd mDzrcWQrOeQzdYU0rQ0h VKswgaijv5opjllu Tyvhk6wkex39xU86M67a XCrcLYZdDNB7POJpZXHp vQniub0akJ0mWt0+IDxj p7frj6hgeGd8EaXv SHMzcmRnvCzkRAU7e9Kp Ll98H9QwaOmdt8NnCfd6 ss83aEJul6I3aLR4THvw HXKqqY3sKNgkHuO7 OPEeGiWknA11jYJhGNbg Vp6zlAgupXkeRC9pJOFu ocsmWQQphP7yGAZwrLBa eOodGF9lUZOrdtpp l048ZaYwBJQ5YBGijCCa Q3NzaE4yCmZpBYCaKNQf Q6TkeNCvKCujI499ZQqe YpZ4XQWwdxKkQ4Bc AFRuiDfxGaN1e7D1Eo4D i8XhtmjvXUM1UCafZQT6 HgX2KcWxInY5X8JiSkg8 EQHmgMgrGT7aG4Hu WYRwhtzuapgrxLM1PPZf SIYuxL43wXRfKPnqPs1i b4V5e532TZKcEXEymO67 Jv3ezLmaYBXltDZY iR9gwyazv8bdzlpxReDi VUZhNAr0FUa4NFSydKdw CqBaOSF8KpH9ILT0wCKn xS9lfKtecnyolC3y Oyc+D03pdV1oLBC3KXB7 twzhMLAfvqYlWJ36EA95 X1AqUeelgOEusDE+PGRp cpEhwEwnUK4pYhDe e4jeh2WlMHjqI7PyKTLk DPtsIrb1WHHaUDN6kQN4 oX0iJWTfFXpau2I8uRF2 P3GebtPohq7lb8mg ADYiYDfeR32liEEqc0M7 TNJxoZT7TLRfiAgrOaOy lX88Wfl+BMEwqRalp3Nn Tgvml8uqc1qlfUe3 IjMwJSIgdmFsaWduPSJ0 c5TdAz92H61vSNplIOSc DCEhDSUcCQGevRxozk9z tK1wYw4+PGNvbCB3 zUV7mK0hFOSiMgI7ARig F226VvXoqTPqMnpro5ii s5wgrRh6KuNvTVBewjDw vAipCHD5s4GgGk35 K70fVJanPDWjHHWcGMCi GSHfkBddht0zfB0cBx3+ PT1sf6dqcy28tG08pOX+ AYXtDEA8pLbuKArs BUQyqN1tKIesMdT2VEUf WvSfeO53uYDhKElfOp4c gIuloBcoVF4wLQSoebdw x510BqZcb9fzFJQb wFEgQJcnIVS6C94za4Y5 LOGkHDYoWFJ3oUE2kQ7y bGlnbjogbGVmdDsgdmVy eVvhZCkmACywI779 IHRvcDsnPlBhdGllbnQg PnPkCOp8A8PbJae5IRGm iFgxVT3gdGMiYRorRu2o mXdmbVjwCQ5kHCZe cqxuy430ZsBwc2wjMFPf aNElBNjaDBK6A12az5L2 WDCdTWGrBHS8dAZ2yD9n bGlnbjogbGVmdDsg psIesUioOIbuCIagD695 IHRvcDsnPkJpcnRoIERh yUD0GV32NH00kWFjt9U6 dKI9I5QxIJYmnozi nbrbqQP9KFJoXXCksT98 Wn6txUdtQh2kKWLiTRM8 YGGpoZZlH7WhwO4kUyYd AVVfGBPeU4WeoSFv CPgnI544ALnjSyU6FZZs xzNpQ6MzFEPnkJxnPcA5 i9Y6Py0BY9X3PI07OG29 aBEht4Y0wCC9X0Ph WJDdymvnjcmbaZZ7JGTc FZVbfI27Bv0foLiwUc7y OCPoAMX9EVNcgOTiW3Jr bY9xTwKlHMXoQHYt Q2XenBXcJCluJ406UUlh RuU3DKVlehNzD8VrAQOj jHinWkR8r9Y8Hl4EKRf6 TC18UI20kGCxz5Z3 rUU7Z0RgHXQtgmbnncxk gFB2ZPPzJUPyvM87Wc3c vWfxAo7pOFUvCSU9NDBl jCNoC9YzaO5sRfTc DTIfLZHbN2OfsSQfXQza U222HTynQsZ0IWRmhpYb I0SmVAMnhSpqDsU9x3G5 Tu2HPTSiDT44JNN7 sVW3HO02GO03R7VdBhyg dGFibGU+PHRhYmxlIHdp ZHRoPScxMDAlJyBzdHls WJ8gBa6wCRAaTRFb jFhqkEMcRiBge0ufRXTc MIpfQI3fcNbjC6LddQV8 NKScq1y5Dh83C58wY0Mv dXA+JRGrmJD8yXC8 wA9sThYdNkB3ZQojD501 ZtHwoQAaEfzae9oql3ek hWk7TxO9HHCalnLqwIka TZX9b1XqUb44T58q IHdpZHRoPSIxNSUiIHZh zRhbdl8emM2aDd8+PGNv vWT6eQP8aF1yOcJdOxY1 NZnaH777YaVneDWl Vrlnt9evv9fdxAg5YmNz APLidoXapNfoMCF5m1Am Ya56T5ZhiQelf0AyNxx9 qs00mMOjk1G1aXA4 E0YsZRUsqbsddRRxsZku RP8tOJChbpoqBSEqcU6q TEHdN6c6JlLjOqX1ZUye P6BowpH3YOQugXJo XMqwVUT3L31wo7R3QFHp IDHaBQU5wQU9dN2ntXbz bjogbGVmdDsgdmVydGlj BNzmPNjiB697OXRq eFaeYMOxeY1yFTFxaZWf bXzqJE4cKTWbnufaSiJH SotUVn7aTCZAZmVVE8Bu TDwvdGQ+PHRkIHN0 tUwcRUkqAWWiyQ1cFQVx O9q0VnSwKbZ5QYtaG4Bc NNZkysbbHg08qO2fVzKv IiN6MUplW8TgxcA8 YOZlmCLqXCofNEG0K67c h3Y2QFMxHVIlZWQ4gML9 sE6mgVdnfwjzfWZcvZgz dmVydGljYWwtYWxp U772OPXdxYsoXhQ1KbJq VqO4ZGT1S2XfQja9BWQb oJvsZE0fuMAeUDkePz6x jIsapUqgHY3xVRMd xvbnRTAimP4nMXSraJUp fDjbCW4gDZBpofomm272 ErQoLMI1LGWjpYFoK9Tw pV9wSaArUSSoROWd G1NotQEgRJctR187WHrr ThR5WRSskmVzA2EtKLKo dNubKiF3j4E9Xh5ySRCK ZWFyczwvdGQ+PHRk DMI8kSypZDqlQJJnvG1l KUIkN9y4CqRkMgN2RAcz C9SmIGVoareeKy33tZ4r CsPxYvO7MKulW3Ka lkB4MFXmnMJaCBpjYVP6 Z32qj5Y3SHRkPHIxGAD2 bXN1qN2vvIhxakrgcGDx dDsgdmVydGljYWwt WVexG364TYCslSsrRdFf bWFsZTwvdGQ+PHRkIHN0 hAnfXTxfJAJsnE5mJHWp D5m8SeVdGpK5NBev T6GiFYMufntaMk54kY7q QtGqPzB6MQswD2BjdmV0 YBIsyTImTFzxDJM2H46q j1S0MLMiEVQqRPU7 fUF0kU8gdArckkbcvGKe dDsgdmVydGljYWwtYWxp T348KJHujGkeXq36bTAs lMhbqyE6T3LpDbrj dHI+EU45GSVhVI45jMRg rMZgb4pwwNk3PzZwVZGh OWR7pGvlUGiqb2GiZEGv A16fqUIss6T7QEBl wUiywCEfYvKjuWM0xW8u UCevrvbma1rnqijqUdch z8upuq08fX50I44mUJxy ZHRoPSIzMCUiIHZh eZlrxa5ktO1oAt7+PGNv eND0tLV5mM6cYoSyKoX9 HIoiG471TyKisOPmFqyl s0zpe5gomWu7IrOb UDXnlkTwbAikMIH5v4Hv Zs62J63lESxwYZAvEOQf FYUsPZVwjBhbbq4meX4v Ii8+DX0ms3nkuv15 oI72oUW+WWVmEEA7cVpr XZhgDMRgwY2rLPlnNoP2 ZANlIzSarI18gYCkJMgq Lx8jbAbjjUhyZK4t ZJDjopnjq176VeVii1oy KFKihYTpYBcoLBR8U92q r1P2AZRsVYOyUTM9cLB6 lE3wtWvosyslePZi dDsgdmVydGljYWwtYWxp P655UCNofYqsZcInwGTb I4nrhgIIGL5bSpnlhNC+ KNZcQWK8pHbwPBnr FHAtmG3fHILkV9a2HeEw XtP7HYvjO9SiswC4IGJi rWRdPIXzoQHVfN9bwezu h9kvgaspAjIjHUQr WPb9BXz9CENxqToqIlAl KUF0CaJ2GNP4xLCmkY0i cHzloxjznN5kUef+RklO OjwvdGQ+PHRkIHN0 sTbhRQciFOYfsX9mPEYu R5h8UbOpBhV5PVarM2Xy stA7EGRviKRzPITruLCK qL1tateak4brfgom PrPaPPFpAMi7FYd0WFOe fZokInNcJCN3YwT8HIB0 hEIaaE9kvOxpameydL9x Oyc+TVJOOjwvdGQ+ DAExVKH5wWwrFMfmYNTj zQ2rKWIwW7a5AtPpWfZ7 AWydD3XpkpV5EDLumWDy HGSnwYWRxM9uurqe i0gfkmqiEqTcQYPsKNk8 GAs2MBXagDubFjNxFOC6 GjH5DWJ6bNYzaC1iyFki kshikB2gYpd+UGF5 DYA0YU43JE38D2ItYffe dGFibGU+PHRhYmxlIHdp ZHRoPScxMDAlJyBzdHls RE0nYj5qYKVmXEDo bGxh (more content not included)... [facility] Coding Summary.on 06-09-2020 Coding Summary. CD:[id number] Gh0bWw+PGhlYWQ+PE1FV HQoU12zbTTizM3CT2tTG N8QOWDYHMQRRF3HBR7pu YA2ABfgN7MddnEb YxptvBEvFB16WSm9UGW0 hFhaBNcxkS8mwOTdC6a7 ZzGlBV13cO72DLijFTGa YjR0KvUnkwwocTLw C9tjAqDbmHLaXmr+PHRh YmxlIHdpZHRoPScxMDAl QyGcnLzxTR4cVe9sMMMd LWNvbGxhcHNlOiBj d6tqUCJxUYugMH9erPtb G4NgjWX6WXYsv6a2Fd65 dHI+ZWSlDNS2sEffSEcj q830EpUym1pnTRZ2 mEKlRKlyVQO6K61bh1W8 IQJtHWUwGIP3qFF3jK9c gPzflrmwQ1LfdHZoNiO6 WAU3qQSxfT3hvEse omfwyS6sSum+C01ZUJ6P ZIPQBR7GRvv5C0KpRvkp dHI+RJ90EXSxCN99wAHg lBIlt4ieuBv0MkNt LUBxDZC4oDzzUCmga0Pu TGXxJ69cgVFln4X8QBHx yFwbeVZiVlXfsWV1dQ4n BQnkwrgkd9azyzeh Waluh1lgzd15vL13W20j WSukENUiKZF6HYUhTBAt jLgdko8ypJ7gTg5+IDxj z0gdm6niwJx6OiIw ZPWdizBjdFlkAGY5e7Ss My91K3YzkTecy4YyGup8 na25dUQpv6K8bXZ8KYiw OXBdcT9xPXqkKyL9 RHCuWvFpeJ30fVVgNDqw Dp3viOobiAndYD6iWBMw xzhsJXBvzF3dMMJmsMJe sMyjJU2nVBOgftzn u604YfWbBLZ2SQGyzYPd F4IfhU8cOdVhFWBsDUDd Z8ErcWJiERetV927RCab HzE9YIKarwFdX0Df NSYuhQkcLrK5x8G9Ya9R j2DkdxkeLLG7YYheJTJ2 MnEtCyPzEnP4H7IhWxz1 QALyjZcnMP0kV9Nu MMAftjzfnovcwQB8QPOq MITobG46hQKrWMfaQa0r s7F2s913NELnWYIgxJ35 Tu0huZogTCNczGMI uK7arknaj8yhalobByAc FNJlRPh2LLo8GCCjrOmh XdKqOLL5OqH8OLS0dBLh bF6auQlwzvjucY5m Oyc+S22zkU8gUMS5HLO0 cvfqIBFjibKtRK21QC84 S4IoShdcdTEikGU+PGRp cmJqsLbcPQ2kPzMt x1kug9DhUKfzO9LiBJFk DByiJji4MZKbCXZ6cCD5 hZ3rCVYqEFijl0S2qOX5 E9FdjxMzhf7yp1je UWIcYJedE25iwLZkm3O8 ZIScrTN0SJTboStqKdOz cQ96Gte+JINwhPgfd4Yk Zxrdp3zzs2gijCc1 IjMwJSIgdmFsaWduPSJ0 q9OsPe18E25dSCqwBWPy YTTdHHYxHEYlxJtcwy1g uZ2nRr4+PGNvbCB3 dRY5rD5sDRDsWdN9KVqv L010YnFrjMIyJvqoq2hn b2xjhBf4LmSkFNViapCq vEqlTGK3c0RrXd79 S52uEBikOQSuWBHsNMAd BLXjhAezez3yoE0xIv0+ AE3xx5temz46eT93jKE+ YZYoUCC9nOktQUoi TEVryW8nUDtzDdT7IHJz HeNvfO84jEDiVWmjRl8v dMldfQhyJZ8xKFYsuqzq f769ZdPya6juHVOn uAYzRVhfSTK5I32xe0M2 WTTsBKKcUKX6uZT6sY6y bGlnbjogbGVmdDsgdmVy aSorNJrqRXhdV058 IHRvcDsnPlBhdGllbnQg NqEyANp0N6FzUpp7DRRp xVaxQL0eqIQtCJigEx1k oZcutRdsKH1zJDHj knmpl500EbTkt6hrMBCl cJJpIFwoJXC6M45bd2U9 SSJmKZJhQFU8yLO1zA5i bGlnbjogbGVmdDsg ynTbzKxiVJyhFNmqD509 IHRvcDsnPkJpcnRoIERh iPB8EG32LR19cTJor4P1 yDM0V0BfQQEtnuuv qnjzbYE2EOXeDMFdmQ04 Ex0qtPlxGy2bQIJxPNA1 DMMzfLAaG0FniY8oMoOu UWYrBJIdV3TciGJx KZpoB005QNiaJlY7CWVg arCsF3XwYLMdkKccJgH5 i5U6Ln8FP5J1GW90JH72 aSTej6O5lVL6S0Fy EYIyuqyhwsaogHD0RUTm TCKiaW98Pk7kqUpoOg4z AWKlSYC5UPAyoXCcY7Ap tA1oIgBoLONbYCZy L0WzbQDsOOppO425BPrl BdF6BJShqsTpM4OaTJJo sXvuXvP9g8F3Ni2IBEc7 CY58FI58qPUsl3K9 rGE1V4DuLZQdeitexsfz nHE5ZWZuFTLooY17Yp1h tQgmGh8oFHYhIHL3JLRk yXDcF1OqrO8zEqJx PNDrMZUxS9IqcTBfAJqp E453LCuyMgK6NPOcilEn L0YfLFOgsIsoBiX0m3F3 Im9KFJJcGJ45SDY1 nWN7CD29CM47L9PmVjdb dGFibGU+PHRhYmxlIHdp ZHRoPScxMDAlJyBzdHls PB6zVe1eARCqYICd eCkhoLAkFuVfr0ndMRMx GTymQO0duEnqD7EoyOO5 KLPbm9e1Wh38M50wB5Ut dXA+EKFaiWL5bJR3 nX6aAkBrVvK1QCnvW696 VbExdSAaXyhoc6zsy3sg wTk0QcT5RFHxfzBtkRcu KRG8r5YhTe10S25n IHdpZHRoPSIxNSUiIHZh sQuyso4quA9eZs3+PGNv eEN3kKI3rI9qCfDbHjH3 ZBwuB753IjYzqDCq Itksh9pcr4hvhVq9IrMm UHEdlhCadBzmKLE9t7Tr Sy50D0CzuHlha3BzRbo6 nf83dFRqv5X9zWQ5 S3VtOSPsstvcxRDkyRld ST5hDSMvhbrhXBTdpR5j MGQhA4d7YrErVtS7WRgs U2AyxhA8FHWrbPAq DEvuVAJ5S26ve4R6BRFq DATcWMN9aYQ3sS3tfYwj bjogbGVmdDsgdmVydGlj CUftHJfoE475JLJq yScsHWNjxA4cQYNtjWXp sIqfUV6iWRNmywvcGrED AysIDd8uDMOLQnLSM5Hm TDwvdGQ+PHRkIHN0 sBblHLwpHVMmzI9dLREw A9b0GaKiFgC0DGdcK0Cx TQNonmnyQg80zE0aKnGi UuS3EKyjQ3DfdvM1 ARIobPMtWMhnRXY5P92j l2P9ZCAoQCEbIBO2rFV6 bX3ptPibftdsmPUbxRas dmVydGljYWwtYWxp K104FXAboLfaUuF7YtSt SxZ6FUN9U1CaGfw2YSUc dTgwYP7ztEAmODkkPz2f tIbfnJqpVL9uNUWp qhhkZWQtuF0bNFWatLYe lYefSK1vGYVprhtqi268 TuDeTCB7CMRtxDDuX5Hx nL7nCnOzBNEwMAGk Z7YlxZEaWSreS827IZsy TjF9NRGxglPsO0LrPLEg vApjMnS5z7O3Hr3dRSGJ ZWFyczwvdGQ+PHRk EQF7yZfbVNayQQOnvL5s UQCmH2j5HyPwQpQ0AOya J3OnITUbpksdSv15oA7v QmRvVgW4KLinC4Tf xeV9PQCesFBxINcaSZP0 N01mu6R3FYOpQEObPBW9 lJZ5kL3phXperlcvuWLx dDsgdmVydGljYWwt SKmlS316LZTmxPoySjYy bWFsZTwvdGQ+PHRkIHN0 jDqeAGyxXCTmbE6aXLLu U8z9PqOjSzJ4EFad W0MvRDNqurzkRr46tH5t QzPsTyO0NWysP6DuwlC2 BRSspEHdNZmeTKO2G81t o4I5IQGsFVVzKOJ9 aGC4fB7rsCknmvelhAFo dDsgdmVydGljYWwtYWxp K821ZTAgyYspXo29ySNz eEplfjE9M7GcTuur dHI+JN08QPCnSL47rEKg aIAoh7qwkKy4TbWgDLXp STD8oZwiFSend3EnQKWl C80ejWVfy2X3YMFn qTqwkHPbEmXnkNT2hW8j ZFzekpmfw1rwexprOavj r9budc28rS92L27fTDvt ZHRoPSIzMCUiIHZh jTaezn1atS4vMo7+PGNv uEM6zDG5bR0uYwQcOxE7 BEvdN220RjYugLKyEvhp e5vbn2whtNs1SfYj PAHgnmGdqKrnQJF8l2Oe Tk22J75dOCkkOFRuIIHd FFIfJZKrnFhjyw0aoJ6n Ii8+LC1hn4tnju33 lF35wEK+HHHcWFI5oXgh JSysYJBxuE9dJOikDiV3 POIrNcUklQ39rXQbVAsi Nt6wcOwitPvzSO6i SUUupbsua129NuVhy9lc GEVciDOdAVmqQDI7U15f l7B6DTCwQXYbHRV1sCO7 iL5jsPbkeqokuRPu dDsgdmVydGljYWwtYWxp Z419IZEvpTanNlDorOQl I1ncglFEOZ5eHtjtfQD+ TJIwSUD7hCwkJYvn TGZuxO0aEFBaS3a5ObVm GoY9UNvyV4ObbmU6QEMx rCPeSXGgzVVMrJ7zxleq j7zwcsnlLaEiBVNu HEk0VZh3HFPhlMckHzHb CVX2WwE4BIE5nOKjnP3o cTmeoijbuO6nEyu+RklO OjwvdGQ+PHRkIHN0 rIiiZVyaKLTjvL5hAFZb O6o1NbMbKeH1OFlmA1Kx qtW2ULActWRlQPAgjXIR hV0xcyxlq7sebkli EdMqTBRvACf0VRf7VXZg iEpeIsYvBLD0PvF4OYZ0 dRSovJ7giGfffmjidN3g Oyc+TVJOOjwvdGQ+ ZUScSMB6aWhdOHxoYRMr pE9iHXDlB1t5NrKnEnH0 OZhhO0NotmO5WJDesREi XMSznJRUfQ8kogna g6pjyrjcSjNaCBDmTQb7 XLy2BBUwuBjxGnTsZOJ2 ZhC6VIX3lXRlmF3cpImr rupvfB4iZea+UGF5 WUB5XK74XY07Y3MbWhxw dGFibGU+PHRhYmxlIHdp ZHRoPScxMDAlJyBzdHls JY4eXp6rXXSdCSDg bGxh (more content not included)... Normal [facility] Capillary Glucose POCon 05-19 Glucose [Mass/Vol] 82 mg/dL Normal 55-99 [facility] Comment on above: Performed By: #### 2 [id number] #### [facility] [address] [place] [address] Consent for Treatmenton 05-19 Consent for Treatment [id number] #1.00CD:127 Normal [facility] Glu 1 Hron 06-03-2020 Glucose [Mass/Vol] 139 mg/dL Normal 55-180 [facility] Comment on above: Result Comment: POSI TIVE SCREEN = 1 HR > 140 mg/dL Performed By: #### 2 [id number] #### [facility] [address] [place] [address] Glu 2 Hron 06-03-2020 Glucose [Mass/Vol] 123 mg/dL Normal 55-155 [facility] Comment on above: Result Comment: DIAB ETES FASTING >126 mg/dL or 2 HOUR >200 mg/dL Performed By: #### 2 [id number], [id number], [id number] #### [facility] [address] [place] [address] Glu 3 Hron 06-03-2020 Glucose [Mass/Vol] 101 mg/dL Normal 55-140 [facility] Comment on above: Result Comment: GEST ATIONAL DIABETES 2 of the following: FASTING >95 mg/dL 1 HOUR >180 mg/dL 2 HOUR >155 mg/dL 3 HOUR >140 mg/dL Performed By: #### 2 [id number] ####[facility] [address] [place] [address] Glu Fastingon 06-03-2020 Glucose [Mass/Vol] 83 mg/dL Normal 55-99 [facility] Comment on above: Performed By: #### 2 938448, [id number], [id number] #### [facility] [address] [place] [address] Rubella Abon 06-03-2020 Rubella Ab Positive Normal Positive [facility] Comment on above: Performed By: #### 2 819396, 8874819, [id number] #### [facility] [address] [place] [address] ABO/Rhon 06-02-2020 ABO/Rh Positive Invalid Interpretation Code [facility] Comment on above: Performed By: #### 1 [id number], [id number] ####[facility] [address] [place] [address] ABSCon 06-02-2020 ABSC Gel Interp Negative Normal [facility] Comment on above: Performed By: #### 1 [id number], [id number] ####[facility] [address] [place] [address] CBC w/Indiceson 06-02-2020 Erythrocyte distribution width (RBC) [Ratio] 12.9 % Normal 10.9-14.2 [facility] Comment on above: Performed By: #### 2 152659, 8497643, [id number] #### [facility] [address] [place] [address] Hematocrit (Bld) [Volume fraction] 33.5 % Low 34.0-46.0 [facility] Comment on above: Performed By: #### 2 811686, 2607569, [id number] #### [facility] [address] [place] [address] Hemoglobin (Bld) [Mass/Vol] 11.2 g/dL Low 12.0-16.0 [facility] Comment on above: Performed By: #### 2 889126, 3460596, [id number] #### [facility] [address] [place] [address] MCH (RBC) [Entitic mass] 29.0 pg Normal 27.0-34.0 [facility] Comment on above: Performed By: #### 2 344413, 0441441, [id number] #### [facility] [address] [place] [address] MCHC (RBC) [Mass/Vol] 33.5 g/dL Normal 31.4-36.0 [facility] Comment on above: Performed By: #### 2 657416, 9345556, [id number] #### [facility] [address] [place] [address] MCV (RBC) [Entitic vol] 86.6 fL Normal 80.0-100.0 F [facility] Comment on above: Performed By: #### 2 910016, 4294702, [id number] #### [facility] [address] [place] [address] Platelet mean volume (Bld) [Entitic vol] 7.6 fL Normal 6.4-10.8 [facility] Comment on above: Performed By: #### 2 101505, 2654645, [id number] #### [facility] [address] [place] [address] Platelets (Bld) [#/Vol] 284.0 E9/L Normal 150.0-500.0 [facility] Comment on above: Performed By: #### 2 605357, 2541450, [id number] #### [facility] [address] [place] [address] RBC (Bld) [#/Vol] 3.9 E12/L Low 4.3-5.9 [facility] Comment on above: Performed By: #### 2 751636, 0704420, [id number] #### [facility] [address] [place] [address] WBC corrected for nucl RBC Auto (Bld) [#/Vol] 9.4 E9/L Normal 4.0-11.0 [facility] Comment on above: Performed By: #### 2 581614, 4748635, [id number] #### [facility] [address] [place] [address] Consent for Treatmenton 05-19 Consent for Treatment [id number] #1.00CD:127 Normal [facility] Gest Scr Glu 1 Hron 06-03-19 Glucose [Mass/Vol] 150 mg/dL High 55-140 [facility] Comment on above: Result Comment: Posi tive Screen =1 HR > 140mg/dL Performed By: #### 2 794603, 0246612, [id number] #### [facility] [address] [place] [address] Ambulatory Clinical Summaryo n 2020 Ambulatory Clinical Summary {[id number]}CD:[id number] Normal [facility] Obstetrics Office/Clinic Not jasmine 2020 Obstetrics Office/Clinic Note Chief Complaint OB 29w 5d, baby moving, patient doing 28 week labs done this Obstetric History History (1,0,0,2) # 1 Baby 1 Outcome Date: 2008 Outcome: Live Outcome or Result: Vaginal Gender: Female Gest Age: 41 weeks Wt: 3232 g Hospital: [facility] [place] Benny Labor: -- Child's Name: -- Baby's [...] trimester) Ordered: Office Visit Level 4 Est 05162 [facility] Follow Up US Follow Up 2. Obesity complicating , third trimester (O99.213: Obesity complicating , third trimester) Ordered: Office Visit Level 4 Est 33397 [facility] Follow Up Follow Up 3. Depression during (O99.340: Other mental disorders complicating , unspecified trimester) Ordered: Office Visit Level 4 Est 73097 [facility] Follow Up US Follow Up 4. 29 weeks gestation of (Z3A.29: 29 weeks gestation of ) Ordered: Office Visit Level 4 Est 65517 [facility] Follow Up Follow Up Follow-up With When Contact Information Funmilayo ESCOBEDO MD In [address] [place] [address]- Additional Instructions: Problem List/Past Medical History [...] Protein Urine Dipstick: Negative (05/31/20 14:25:00) Normal [facility] Comment on above: Result Comment: Elec [...] including vitamins, herbs, eye drops, creams, and nzym-swi-xyhjrjy medicines. ? Any blood disorders you have. [...] This inform (more content not included)... Normal [facility] RAD - Ultrasound Reporton RAD - Ultrasound Report [id number]# 1.00CD:127 Normal [facility] Coding Summary.on 05-17-2020 Coding Summary. CODING DATE: 05/16/2020 FINAL [facility] STATUS: Home (Routine DC) PAYOR: Crittenden ADMIT DX: REASON FOR VISIT DX: O09.92 [...] [facility] Date Saved: 05/16/2020 11:[address] [facility] C Urineon 05-13-2020 Bacteria identified Cx Nom (U) Microbiology PROCEDURE: Urine Culture [R1] SOURCE: U Random BODY SITE: COLLECTED DATE/TIME: 05/11/2020 10:37 EDT RECEIVED DATE/TIME: 05/11/2020 19:08 EDT START DATE/TIME: 05/11/2020 19:08 EDT FREE TEXT SOURCE: Caroline HILARIO, Caroline FINAL REPORTS Final Report [] Verified Date/Time: 05/13/2020 08:25 EDT 4,000 cfu/ml Mixed skin contaminants Performing Locations R1: This test was performed at: [facility], [address] [place] [address], [facility]- , , [facility] Comment on above: Performed By: #### 2 [id number] ####[place] [address] Ambulatory Clinical Summaryo n 05-11-2020 Ambulatory Clinical Summary {[id number]}CD:[id number] [facility] Obstetrics Office/Clinic Not jasmine 05-11-2020 Obstetrics [...] Age: 41 weeks Wt: 3232 g Hospital: [facility] Labor: -- Child's Name: -- Baby's [...] far. Ordered: Office Visit Level 3 Est 03022 [place] 2. Depression during (O99.340: Other mental disorders complicating , unspecified trimester) Doing meditation. Ordered: Office Visit Level 3 Est 67840 [place] 3. Supervision of high risk in [...] 1 Hour Office Visit Level 3 Est 39500 [place] Urine Culture 4. 26 weeks gestation of (Z3A.26: 26 weeks gestation of ) Ordered: Office Visit Level 3 Est 58863 [place] Follow-up With When Contact Information [facility] [place] In [address] [place] [address]- Additional Instructions: Problem List/Past Medical History Ongoing [...] Smokeless Toba (more content not included)... Normal [facility] Comment on above: Result Comment: [place] Signed By: Kathryn HILARIO.rosey\Date and Time Signed: 05/11/20 10:23 EDT Patient [...] Petroleum jelly. ? 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 ? Hand metal gauge maker. Health and safety ? Rectal thermometer. ? [...] ? Consumer Product Safety Commission: www.cpsc.gov ? [employer]: www.healthychildren. org ? [employer]: www.safekids.org Summary ? [...] 01/17/2009 Document Revised: 01/17/2018 Document Reviewed: 12/25/2017 Elsevier Patient Education ? 2019 [employer] [facility] Coding Summary.on 04-29-2020 Coding Summary. CODING DATE: 04/28/2020 [facility] STATUS: Home (Routine DC) PAYOR: Crittenden ADMIT DX: REASON FOR VISIT DX: O09.92 [...] [facility] Date Saved: 04/28/2020 10:[address] [facility] Coding Summary.on 04-27-2020 Coding Summary. CODING DATE: 04/27/2020 [facility] STATUS: Home (Routine DC) PAYOR: Crittenden ADMIT DX: REASON FOR VISIT DX: Z34.82 [...] [facility] Date Saved: 04/27/2020 10:[address] [facility] Nursing Assessmenton 021 Nursing Assessment [id number] #1.00CD:[address] [facility] C Urineon 04-23-2020 Bacteria identified Cx [...] Locations R1: This test was performed at: [facility], [address] [place] [address], [facility] , , [facility] Comment on above: Performed By: #### 2 024236, [id number], [id number] #### [facility] [address] [place] [address] Consent for Treatmenton Consent for Treatment [id number] #1.00CD:127 [facility] [facility] Consent for Treatment [id number] 30 [id number] #1.00CD:[address] [facility] Discharge Instructionson Discharge Instructions [id number] #1.00CD:[address] [facility] Inpatient Clinical Summaryon 04-21-2020 Inpatient Clinical Summary [address] [address] Clinical Summary Person Information Name: MYA MYLES [place] Age: 29 Years : 1990 Sex: Female PCP: Chao Blackwell III, DO Marital Status: Single Race: White Ethnicity: Non- or Language: Brazilian Visit Id: Visit Reason: Speciality: Acuity: Enc Type: OB Triage Med Service: Obstetrics Arrival: 04/21/2020 15:56:05 Discharge: 04/21/2020 17:47:48 Dispo Type: Home (Routine DC) Address: [address] [place] [address] SAEID MD [phone] Provider Notes: Diagnosis: Problems Active Depression during [...] Follow up: With: Address: When: Funmilay[place] [address] Business (1) 05/12/2020 9:00 AM Comments: Call for any problems. Type Location Start Finish [facility] 05/12/2020 9:00 AM 05/12/2020 9:15 AM Confirmed Patient Education Information: Normal [facility] Inpatient Patient Summaryon 04-21-2020 Inpatient Patient Summary [address] [address] Patient Discharge Instructions PERSON INFORMATION Name: MYLESMYA Date of : 1990 Current Date: 04/21/2020 [...] up: With: Address: When: Funmilayo ESCOBEDO [address] [place], [place] [id number] Business (1) 05/12/2020 9:00 AM Comments: Call for any problems. In the event that this physician does not participate in your insurance network, please consult with your insurance company to find a nearby participating provider. Type Location Start Finish [facility] 05/12/2020 9:00 AM 05/12/2020 9:15 AM Confirmed Comment: JUSTINO Burton VANESSA L, have received the attached patient education materials/instructio ns and have verbalized understanding. Patient Signature Date Clinican/Nurse Signature Date MEDICATION LIST Medications to Continue with No Changes Other Medications cephalexin (Keflex 500 mg oral capsule) 1 Capsules By Mouth 4 times a day for 7 Days. Refills: 0. Last Dose: Next Dose: multivitamin, ( Multivitamins) 1 Tablets By Mouth every day. Last Dose: Next Dose: Pharmacy Information: Lawanda Breaux PATIENT EDUCATION INFORMATION Instructions: Medication Leaflets: You may receive a survey from [employer] asking you to rate your care experience. Your feedback is important and will help us understand what we do well and how we can improve the quality of care we provide to you, your loved ones and our community. It?s an honor to serve you. Thank you for choosing [facility] Normal [facility] Insurance Correspondence Off iceon 04-21-2020 Insurance Correspondence Office [id number] #1.00CD:127 Normal [facility] RAD - Ultrasound Reporton RAD - Ultrasound Report [id number] #1.00CD:127 Normal [facility] UA With Cult Reflexon 2020 Bacteria LM Ql (Urine sed) 1+ /HPF Abnormal Trace [facility] Comment on above: Performed By: #### 2 406963, 9376145, [id number] #### [facility] [address] [place] [address] Bilirubin Ql (U) Negative Normal Negative [facility] Comment on above: Performed By: #### 2 868577, 9973547, [id number] #### [facility] [address] [place] [address] Clarity (U) CLEAR Normal Clear [facility] Comment on above: Performed By: #### 2 181769, 0340156, [id number] #### [facility] [address] [place] [address] Color (U) YELLOW Normal Yellow [facility] Comment on above: Performed By: #### 2 174795, 0014267, [id number] #### [facility] [address] [place] [address] Epithelial cells.squamous LM.HPF (Urine sed) [#/Area] 3-4 Normal 0-2 [facility] Comment on above: Performed By: #### 2 461760, 2483256, [id number] #### [facility] [address] [place] [address] Glucose Test strip (U) [Mass/Vol] Negative Normal Negative [facility] Comment on above: Performed By: #### 2 120802, 3701198, [id number] #### [facility] [address] [place] [address] Hemoglobin Ql (U) Negative Normal Negative [facility] Comment on above: Performed By: #### 2 496070, 9031583, [id number] #### [facility] [address] [place] [address] Ketones (U) [Mass/Vol] 1+ Abnormal Negative [facility] Comment on above: Performed By: #### 2 204200, 2028071, [id number] #### [facility] [address] [place] [address] [place].plasma/[place]. RBC (Bld) [Mass ratio] 0-3 Normal 0-3 [facility] Comment on above: Performed By: #### 2 738272, 8520583, [id number] #### [facility] [address] [place] [address] Nitrite Ql (U) Negative Normal Negative [facility] Comment on above: Performed By: #### 2 305711, 5943884, [id number] #### [facility] [address] [place] [address] pH (U) 7.0 [pH] Invalid Interpretation Code 5.0-9.0 [facility] Comment on above: Performed By: #### 2 532835, 3790347, [id number] #### [facility] [address] [place] [address] Protein (U) [Mass/Vol] Negative Normal Negative [facility] Comment on above: Performed By: #### 2 457348, 7105534, [id number] #### [facility] [address] [place] [address] Specific gravity (U) [Rel density] 1.010 Invalid Interpretation Code 1.005-1.030 [facility] Comment on above: Performed By: #### 2 001901, 7682223, [id number] #### [facility] [address] [place] [address] UA Spec Desc Clean Catch Normal [facility] Comment on above: Performed By: #### 2 032261, 4286784, [id number] #### [facility] [address] [place] [address] Urobilinogen Qn (U) 0.2 {Henny'U}/dL Normal 0.0-1.0 [facility] Comment on above: Performed By: #### 2 607168, 1460574, [id number] #### [facility] [address] [place] [address] WBC Auto Ql (U) 1+ Abnormal Negative [facility] Comment on above: Performed By: #### 2 602871, 3088376, [id number] #### [facility] [address] [place] [address] WBC LM.HPF (Urine sed) [#/Area] 0-5 Normal 0-5 [facility] Comment on above: Performed By: #### 2 457673, 2533133, [id number] #### [facility] [address] [place] [address] C Urineon 04-18-2020 Bacteria identified Cx Nom [...] or tested, I=Intermediate, ESBL=Extended spectrum beta-lactamase, R=Resistant, TFG=Thymidine-depend ent strain, CALVIN=Beta-lactamase positive, EL=mcg/m;(mg/L), S*=Predicted susceptible interp, [...] Locations R1: This test was performed at: [facility], [address] [place] [address], [facility] , , [facility] Comment on above: Performed By: #### 2 500687 ####[facility] [address] [place] [address] Obstetrics Office/Clinic Not jasmine 04-18-2020 Obstetrics Office/Clinic Note Chief Complaint OB 21w 5d, baby moving Obstetric History History (1,0,0,2) # 1 Baby 1 Outcome Date: 2008 Outcome: Live Outcome or Result: Vaginal Gender: Female Gest Age: 41 weeks Wt: 3232 g Hospital: [facility] Benny Labor: -- Child's Name: -- Baby's [...] trimester) Ordered: Office Visit Level 4 Est 34537 NC 2. Obesity complicating , second trimester (O99.212: Obesity complicating , second trimester) Ordered: Office Visit Level 4 Est 54729 NC 3. 21 weeks gestation of (Z3A.21: 21 weeks gestation of ) Ordered: Office Visit Level 4 Est 71315 NC 4. Depression during (O99.340: Other mental disorders complicating , unspecified trimester) Ordered: Office Visit Level 4 Est 64436 NC Follow-up With When Contact Information Funmilayo ESCOBEDO MD In [address] [place] [address]- Additional Instructions: Problem List/Past Medical History [...] pts pharmacy. Spoke with pt. 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 Will repeat urine cx at next visit. Kendal Escobedo MD [facility] Comment on above: Result Comment: Elec tronically Signed By: Funmilayo ESCOBEDO MD\.br\Date and Time Signed: 04/18/20 18:12 EST C Urineon 04-17-2020 Bacteria identified Cx Nom (U) Microbiology PROCEDURE: Urine Culture [R1] SOURCE: U CleanCatch BODY SITE: COLLECTED DATE/TIME: 04/15/2020 02:51 EST RECEIVED DATE/TIME: 04/15/2020 02:51 EST START DATE/TIME: 04/15/2020 02:51 EST FREE TEXT SOURCE: ELLISCaroline SHAVER Stephanie FINAL REPORTS Final Report [] Verified Date/Time: 04/17/2020 10:39 EST <10,000 cfu/ml Mixed skin contaminants Performing Locations R1: This test was performed at: [facility], [address] [place] [address], [address]- , [place], Normal [facility] Comment on above: Performed By: #### 2 916481 ####[facility] [address] [place] [address] HIV Screen 4th Generation wR fxon 04-16-2020 HIV 1+2 Ab+HIV1 p24 Ag IA Ql Non-Reactive Invalid Interpretation Code Non Reactive [facility] Comment on above: Result Comment: Perf ormed at: [address] [id number] PhD Lanette Dunn Performed By: #### 2 696484, 1307752, [id number] #### [facility] [address] [place] [address] Hep Bs Agon 04-16-2020 HBV surface Ag IA Ql Negative Invalid Interpretation Code Negative [facility] Comment on above: Result Comment: Perf ormed at: [address] [id number] PhD Lanette Dunn Performed By: #### 2 894278, 9237674, [id number] #### [facility] [address] [place] [address] Coding Summary.on 04-15-2020 Coding Summary. CODING DATE: 04/15/2020 FINAL [facility] STATUS: Home (Routine DC) PAYOR: [place] ADMIT DX: REASON FOR VISIT DX: O09.91 [...] result in slightly different terminology. Coded By: Sweetie Zuniga Vannesa Date Saved: 04/15/2020 09:18 am Normal [facility] RPRon 04-15-2020 Reagin Ab RPR Ql (S) Non-Reactive Normal Non-Reactive [facility] Comment on above: Performed By: #### 9 [id number], 5133871, [id number] ####[facility] [address] [place] [address] ABO/Rhon 04-14-2020 ABO/Rh Positive Invalid Interpretation Code [facility] Comment on above: Performed By: #### 2 294457, [id number] #### [facility] [address] [place] [address] ABSCon 04-14-2020 ABSC Gel Interp Negative Normal [facility] Comment on above: Performed By: #### 2 663539, [id number] #### [facility] [address] [place] [address] Ambulatory Clinical Summaryo n 04-14-2020 Ambulatory Clinical Summary {[id number] [id number]}CD:[id number] Normal [facility] Auto Diffon 04-14-2020 Basophils/100 WBC (Bld) 0.3 % Normal 0.0-2.0 F [facility] Comment on above: Order Comment: Order Added by Discern Expert. Performed By: #### 2 097683, 1403322, [id number] #### [facility] [address] [place] [address] Basophils/Leukocytes Auto (Bld) [Pure # fraction] 0.0 E9/L Normal 0.0-0.2 [facility] Comment on above: Order Comment: Order Added by Discern Expert. Performed By: #### 2 585609, 9996546, [id number] #### [facility] [address] [place] [address] Eosinophils/100 WBC (Bld) 0.3 % Normal 0.0-8.0 [facility] Comment on above: Order Comment: Order Added by Idalia Expert. Performed By: #### 2 843073, 3225036, [id number] #### [facility] [address] [place] [address] Eosinophils/Leukocytes Auto (Bld) [Pure # fraction] 0.0 E9/L Normal 0.0-0.5 [facility] Comment on above: Order Comment: Order Added by Discern Expert. Performed By: #### 2 414398, 8217400, [id number] #### [facility] [address] [place] [address] Lymphocytes/100 WBC (Bld) 19.1 % Normal 14.0-50.0 [facility] Comment on above: Order Comment: Order Added by Idalia Expert. Performed By: #### 2 051656, 5213381, [id number] #### [facility] [address] [place] [address] Lymphocytes/Leukocytes Auto (Bld) [Pure # fraction] 1.4 E9/L Normal 1.0-4.0 [facility] Comment on above: Order Comment: Order Added by Idalia Expert. Performed By: #### 2 998823, 3185000, [id number] #### [facility] [address] [place] [address] Monocytes/100 WBC (Bld) 6.4 % Normal 4.0-14.0 [facility] Comment on above: Order Comment: Order Added by Idalia Expert. Performed By: #### 2 587092, 2682016, [id number] #### [facility] [address] [place] [address] Monocytes/Leukocytes Auto (Bld) [Pure # fraction] 0.5 E9/L Normal 0.2-1.0 [facility] Comment on above: Order Comment: Order Added by Idalia Expert. Performed By: #### 2 291161, 0396658, [id number] #### [facility] [address] [place] [address] Neutrophils/100 WBC (Bld) 73.9 % Normal 36.0-75.0 [facility] Comment on above: Order Comment: Order Added by Discern Expert. Performed By: #### 2 142462, 9894113, [id number] #### [facility] [address] [place] [address] Neutrophils/Leukocytes Auto (Bld) [Pure # fraction] 5.3 E9/L Normal 2.0-7.5 [facility] Comment on above: Order Comment: Order Added by Discern Expert. Performed By: #### 2 441849, 7919216, [id number] #### [facility] [address] [place] [address] BhCG Quanton 04-14-2020 [place] [address] m[IU]/mL High 1-3 F [facility] Comment on above: Result Comment: GEST ATIONAL AGE HCG RANGE (mIU/mL) NON- <1-3 0.2-1 WEEKS 5-50 1-2 WEEKS 50-500 2-3 WEEKS 100-5,000 3-4 WEEKS 500-10,000 4-5 WEEKS 1,000-50,000 5-6 WEEKS 10,000-100,000 6-8 WEEKS 15,000-200,000 8-12 WEEKS 10,000-100,000 Performed By: #### 2 888217 #### [facility] [address] [place] [address] CBC w/ Auto Diffon Erythrocyte distribution width (RBC) [Ratio] 13.0 % Normal 10.9-14.2 [facility] Comment on above: Performed By: #### 2 693363, 2862260, [id number] #### [facility] [address] [place] [address] Hematocrit (Bld) [Volume fraction] 34.6 % Normal 34.0-46.0 [facility] Comment on above: Performed By: #### 2 491916, 4137437, [id number] #### [facility] [address] [place] [address] Hemoglobin (Bld) [Mass/Vol] 11.6 g/dL Low 12.0-16.0 [facility] Comment on above: Performed By: #### 2 214564, 5600622, [id number] #### [facility] [address] [place] [address] MCH (RBC) [Entitic mass] 29.8 pg Normal 27.0-34.0 [facility] Comment on above: Performed By: #### 2 625231, 5665553, [id number] #### [facility] [address] [place] [address] MCHC (RBC) [Mass/Vol] 33.4 g/dL Normal 31.4-36.0 [facility] Comment on above: Performed By: #### 2 560142, 0872075, [id number] #### [facility] [address] [place] [address] MCV (RBC) [Entitic vol] 89.2 fL Normal 80.0-100.0 F [facility] Comment on above: Performed By: #### 2 031905, 7082641, [id number] #### [facility] [address] [place] [address] Platelet mean volume (Bld) [Entitic vol] 7.8 fL Normal 6.4-10.8 [facility] Comment on above: Performed By: #### 2 314579, 8646764, [id number] #### [facility] [address] [place] [address] Platelets (Bld) [#/Vol] 326.0 E9/L Normal 150.0-500.0 [facility] Comment on above: Performed By: #### 2 100559, 7253427, [id number] #### [facility] [address] [place] [address] RBC (Bld) [#/Vol] 3.9 E12/L Low 4.3-5.9 [facility] Comment on above: Performed By: #### 2 829513, 6670376, [id number] #### [facility] [address] [place] [address] WBC corrected for nucl RBC Auto (Bld) [#/Vol] 7.2 E9/L Normal 4.0-11.0 [facility] Comment on above: Performed By: #### 2 353676, 3024528, [id number] #### [facility] [address] [place] [address] Consent for Treatmenton 03-22 Consent for Treatment [id number] #1.00CD:127 Normal [facility] UpyF0kbz 04-14-2020 HbA1c (Bld) [Mass fraction] 4.8 % Normal <=5.9 [facility] Comment on above: Performed By: #### 2 053025, 7638178, [id number] #### [facility] [address] [place] [address] Patient Educationon 04-14-19 21 Patient Education How [...] Document Reviewed: 07/23/2008 ExitCare? Patient Information ?2013 L2. Obstetrics and Gynecology Eating Plan for Women [...] your (t (more content not included)... Normal [facility] U Drug Screenon 04-14-2020 Amphetamines Screen method >1000 ng/mL Ql (U) Negative Normal Negative [facility] Comment on above: Result Comment: Nega tive Cutoff: <1000 ng/mL Performed By: #### 2 818255 #### [facility] [address] [place] [address] Barbiturates Screen Ql (U) Negative Normal Negative [facility] Comment on above: Result Comment: Nega tive Cutoff: <200 ng/mL Performed By: #### 2 125273 #### [facility] [address] [place] [address] Benzodiazepines Ql (U) Negative Normal Negative [facility] Comment on above: Result Comment: Nega tive Cutoff: <200 ng/mL Performed By: #### 2 142725 #### [facility] [address] [place] [address] Cocaine Ql (U) Negative Normal Negative [facility] Comment on above: Result Comment: Nega tive Cutoff: <300 ng/mL Performed By: #### 2 017838 #### [facility] [address] [place] [address] Opiates Screen Ql (U) Negative Normal Negative [facility] Comment on above: Result Comment: Nega tive Cutoff: <300 ng/mL Performed By: #### 2 981442 #### [facility] [address] [place] [address] Phencyclidine Screen method >25 ng/mL Ql (U) Negative Normal Negative [facility] Comment on above: Result Comment: Nega tive Cutoff: <25 ng/mL These drug screen results are to be used for medical (i.e., treatment) purposes only. Unconfirmed drug screening results must not be used for non-medical purposes (e.g., employment testing, legal testing). Performed By: #### 2 649998 #### [facility] [address] [place] [address] Tetrahydrocannabinol Screen method >50 ng/mL Ql (U) Negative Normal Negative [facility] Comment on above: Result Comment: Nega tive Cutoff: <50 ng/mL Performed By: #### 2 603230 #### [facility] [address] [place] [address] RAD - Ultrasound Reporton RAD - Ultrasound Report [id number] #1.00CD:127 Normal [facility] Lab Reportson 03-14-2020 Lab Reports [id number] #1.00CD:127 Normal [facility] Ambulatory Clinical Summaryo n 02-29-2020 Ambulatory Clinical Summary {[id number]-98}CD:871537 Normal [facility] Ambulatory Clinical Summary {[id number] [id number]-[id number]}CD:531713 Normal [facility] Obstetrics Office/Clinic Not jasmine 02-29-2020 Obstetrics Office/Clinic Note Chief Complaint OB 15w 2d, feeling flutters, occ. [place] Obstetric History History (1,0,0,2) # 1 Baby 1 Outcome Date: 2008 Outcome: Live Outcome or Result: Vaginal Gender: Female Gest Age: 41 weeks Wt: 3232 g Hospital: [facility] Benny Labor: -- Child's Name: -- Baby's [...] RTC 4 wks. Has anatomy US with M on 03/22. Discussed weight gain and exercise in . 1. Supervision of high risk in second trimester (O09.92: Supervision of high risk , unspecified, second trimester) Ordered: Office Visit Level 4 Est 38384 TH 2. Obesity complicating , second trimester (O99.212: Obesity complicating , second trimester) Ordered: Office Visit Level 4 Est 45163 TH 3. 15 weeks gestation of (Z3A.15: 15 weeks gestation of ) Ordered: Office Visit Level 4 Est 81013 TH Follow-up With When Contact Information Funmilayo ESCOBEDO MD In [address] [place] [address]- Additional Instructions: Problem List/Past Medical [...] Protein Urine Dipstick: Negative (02/29/20 15:46:00) Normal [facility] Comment on above: Result Comment: Elec tronically Signed By: LAURA MACEDO, Funmilayo Garner.rosey\Date and Time Signed: 02/29/20 16:25 EST Patient [...] 02/04/2006 Document Revised: 04/28/2012 Document Reviewed: 05/19/2009 [employer]? Patient Information ?2013 L2. Family Medicine How a Baby Grows During [...] flex an (more content not included)... Normal [facility] Physician Referralon 021 Physician Referral [id number] #1.00CD:127 Normal [facility] RAD - Ultrasound Reporton RAD - Ultrasound Report [id number] #1.00CD:127 Normal [facility] Physician Referralon 020 Physician Referral [id number] #1.00CD:127 Normal [facility] Physician Referralon 020 Physician Referral [id number] #1.00CD:127 Normal [facility] Chlamydia/Gonococcus, NAAon 01-30-2020 C. trachomatis rRNA KAIDEN+probe Ql (Unsp spec) Negative Invalid Interpretation Code Negative [facility] Comment on above: Performed By: #### 2 462271, 5335398, [id number] #### [facility] [address] [place] [address] N. gonorrhoeae rRNA KAIDEN+probe Ql (Unsp spec) Negative Invalid Interpretation Code Negative [facility] Comment on above: Result Comment: Perf ormed at: =G [facility] [place] [id number] MD Kehinde Rivero Performed By: #### 2 905536, 4129900, [id number] #### [facility] [address] [place] [address] Coding Summary.on 01-29-2020 Coding Summary. CODING DATE: 01/29/2020 FINAL [facility] STATUS: Home (Routine DC) PAYOR: Self Pay [...] Garcia Date Saved: 01/29/2020 01:52 pm Normal [facility] Ambulatory Clinical Summaryo n 01-27-2020 Ambulatory Clinical Summary {[id number]}CD:[id number] Normal [facility] Obstetrics Office/Clinic Not jasmine 01-27-2020 Obstetrics Office/Clinic Note Chief Complaint 1st OB 10 Weeks 4 days. Some Nausea. Obstetric History History (1,0,0,2) # 1 Baby 1 Outcome Date: 2008 Outcome: Live Outcome or Result: Vaginal Gender: Female Gest Age: 41 weeks Wt: 3232 g Hospital: [facility] [place] Benny Labor: -- Child's Name: -- Baby's [...] smoking, alcohol, or drug use. Last pap 2, NILM. 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 Review of Systems Constitutional: No fever, No [...] during or after office hours. Referral to [facility] and will defer to them for genetic testin (more content not included)... Normal [facility] Comment on above: Result Comment: Elec [...] 04/28/2012 Document Reviewed: 07/23/2008 ExitCare? Patient Information ?[address] [facility] Patient Letter FTon 2019 Patient [place] [facility] January 27, [address] MYLES [address] [place] [address] [facility] [place] [address] MYA MYLES 1990 Our patient Mya Myles is with a single IUP. EDC is 08/20/[address] [facility] Coding Summary.on 01-22-2020 Coding Summary. CODING DATE: 01/22/2020 FINAL [facility] STATUS: Home (Routine DC) PAYOR: Self Pay [...] Gloria Fleming Date Saved: 01/22/2020 08:[address] [facility] US 1st Trimesteron 01-11-2020 US 1st Trimester Exam Date/Time: 01/07/2020 10:19 EST [...] corresponding gestational age +/- 1 week are: [place] Rump Length: 1.8 cm Composite Ultrasound Age: [...] Signed by: Julia Sánchez MD Transcribed by: Phong Technologist: ADEN Technical Comments Regular History 3 Para 2 SAB 1 Transabdominal Ultrasound Performed Size = Dates Normal [facility] Ambulatory Clinical Summaryo n 01-07-2020 Ambulatory Clinical Summary {[id number] Normal [facility] Ambulatory Clinical Summaryo n 01-06-2020 Ambulatory Clinical Summary {[id number]}CD:[id number] Normal [facility] BhCG Quanton 01-06-2020 HCG.beta subunit Qn [id number] m[IU]/mL High 1-3 [facility] Comment on above: Result Comment: GEST ATIONAL AGE HCG RANGE (mIU/mL) NON- <1-3 0.2-1 WEEKS 5-50 1-2 WEEKS 50-500 2-3 WEEKS 100-5,000 3-4 WEEKS 500-10,000 4-5 WEEKS 1,000-50,000 5-6 WEEKS 10,000-100,000 6-8 WEEKS 15,000-200,000 8-12 WEEKS 10,000-100,000 Performed By: #### 2 [id number], [id number], [id number] #### [facility] [address] [place] [address] Consent for Treatmenton 12-19 Consent for Treatment [id number] #1.00CD:127 Normal [facility] Gynecology Office/Clinic Not jasmine 01-06-2020 Gynecology Office/Clinic Note Chief Complaint Confirmation of , Nausea Some Vomitting. Has had Dark pink Spotting, First OB paper work added . Obstetric History History (1,0,0,2) # 1 Baby 1 Outcome Date: 2008 Outcome: Live Outcome or Result: Vaginal Gender: Female Gest Age: 41 weeks Wt: 3232 g Hospital: [facility] Benny Labor: -- Child's Name: -- Baby's [...] order subsequent US. Plan to refer to [facility] d/t hx child with congenital lymphedema. Recommend [...] test, result positive) Ordered: HCG, Urine POC [id number] Follow-up No qualifying data available Problem List/Past [...] Results HCG, Urine: Positive (01/06/20 09:31:00) Normal [facility] Comment on above: Result Comment: Elec tronically Signed By: RHONDA DICKEY, Caroline\.br\Date and Time Signed: 01/06/20 10:17 EST Progesteroneon 01-06-2020 Progesterone [Mass/Vol] 18.00 ng/mL Invalid Interpretation Code [facility] Comment on above: Result Comment: REFE RENCE RANGE Males 0.14-2.06 ng/mL Non- Females Follicular 0.10-0.60 ng/mL Luteal 3.00-17.5 ng/mL Midluteal 3.30-18.6 ng/mL Post-Menopausal 0.10-0.40 ng/mL First Trimester 8.30-66.5 ng/mL Second Trimester 18.9-66.1 ng/mL Third Trimester 35.8-312.4 ng/mL Performed By: #### 2 [id number], [id number], [id number] #### [facility] [address] [place] [address] Coding Summary.on 12-14-2019 Coding Summary. CODING DATE: 12/14/2019 FINAL [facility] STATUS: Home (Routine DC) PAYOR: Self Pay [...] Garcia Date Saved: 12/14/2019 02:13 pm Normal [facility] ED Note-Physicianon 12-14-19 ED Note-Physician Basic Information Time Seen: Gege Love PA-C 12/13/2019 19:14 Chief Complaint pt to ED with c/o consuming plastic from a burger at [employer] today. pt is . denies complaints History of Present Illness This patient presents emergency department after ingesting some type of plastic while eating a sandwich at [employer]. She states she was at [employer] restaurant. She bit down on something hard [...] Blackwell In 3 days 12/16/2019 EDT [address] [id number] [facility] (1) Additional Instructions: Patient Education Swallowed Foreign Body, Adult, Rqca-xt-Gvmh Problem List/Past Medical History Ongoing Ovarian cyst Historical Medications Inpatient No active inpatient medications Home Bactroban 2% Cream, 1 ced, Topical, TID Bol[place] 325 mg-5 mg oral tablet, 1 tab(s), Oral, q4hr, PRN Allergies No Known Allergies Social History Alcohol - Denies Alcohol Use, 11/21/2009 Substance Abuse - Denies Substance Abuse, 11/21/2009 Tobacco - Denies Tobacco Use, 11/21/2009 Family History Diabetes mellitus type 2: Mother and Father. Hypertension: Mother and Father. Lab Results No qualifying data available. Diagnostic Results No qualifying data available. Normal [facility] Comment on above: Result Comment: Elec tronically Signed By: Gege Love PA-C\.br\Date and Time Signed: 12/13/19 19:34 EDT\.br\Electronically Co-Signed By: Ed Jerome MD\.br\Date and Time Co-Signed: 12/14/19 05:14 EDT Consent for Treatmenton 11-19 Consent for Treatment [id number] #1.00CD:127 Normal [facility] Discharge Instructionson Discharge Instructions [id number]#1.00CD:127 Normal [facility] ED Clinical Summaryon 2019 ED Clinical Summary [place] [id number] ED Clinical Summary Person Information Name: MYA MYLES [facility] Age: 29 Years : 1990 Sex: Female Language: Brazilian PCP: Chao Blackwell III, DO Marital Status: Single MRN: Visit Id: Visit Reason: Medical screening exam; CONSUMED PLASTIC IN A BURGER FROM [place], APRX 6-8 WEEKS Speciality: Acuity: 4 Enc [...] 12/13/2019 19:44:03 12/13/2019 19:44:03 12/13/2019 19:44:03 ADDRESS: [address] [place] [address] DR BREAUX MD [id number] PHYS DOC NOTES: MEDICAL INFORMATION: Prescriptions Given: Medications to Continue with No Changes Other Medications acetaminophen-hydroc odone (Bolivia 325 mg-5 mg oral tablet) 1 Tablets By Mouth every 4 hours as needed for pain. Refills: 0. mupirocin topical (Bactroban 2% Cream) 1 Application Topical 3 times a day. Refills: 0. PATIENT EDUCATION INFORMATION: Instructions: Swallowed Foreign Body, Adult, Zmlh-rt-Meqr Follow up: With: Address: When: Chao Blackwell [address] [place] [address], [facility] BRE[place] [address] Business (1) In 3 days 12/16/2019 DIAGNOSIS: 1:Ingestion of foreign body Normal [facility] ED Patient Education Noteon 12-13-2019 ED [...] Document Reviewed: 05/22/2011 ExitCare? Patient Information ?2015 L2. This information is not intended to replace advice given to you by your health care provider. Make sure you discuss any questions you have with your health care provider. Normal [facility] ED Patient Summaryon 020 ED Patient Summary [place] [id number] Patient Discharge Instructions Person Information Name: MYA MYLES Age: 29 Years Arrival Date: 12/13/2019 18:29:24 Discharge Diagnosis: 1:Ingestion of foreign body Primary Care Physician: Chao Blackwell III, DO Provider Information Primary Provider: [employer]:None The exam and treatment you received in the Emergency Department were for an urgent problem and are not intended as complete care. It is important that you follow up with a doctor, nurse practitioner, or physician?s training assistant for ongoing care. If your symptoms [...] Follow-up Instructions: With: Address: When: Chao Blackwell [address] [place] [address], [place] [address] [employer] (1) In 3 days 12/16/2019 In the event that this physician does not participate in your insurance network, please consult with your insurance company to find a nearby participating provider. Patient Education Materials: Swallowed Foreign Body, Adult, Zwcg-jj-Pyhq A MESSAGE TO ALL PATIENTS REGARDING OPIOIDS PRESCRIPTION OPIOIDS: WHAT YOU NEED TO KNOW Prescription opioids can be used to help relieve lahwkksf-nl-uhlwmv pain and are often prescribed following a [...] guidance from the Food and Drug Administration (www.fda.gov/Drugs/R esourcesForYou). ? Visit www.cdc.gov/drugover dose to learn about the risks of opioids abuse and overdose. ? If you believe you may be struggling with addiction, tell your health rn complex care and ask for guidance or call SAMHSA?S National Helpline at 1-622-490-YMBP. (more content not included)... Normal [facility] Vital Signs Date Time Vital Sign Value Performing Clinician Rene hernandez 11-27-2023 15:35-0400 Body mass index (BMI) [Ratio] 34.57 kg/m2 Catherine TRACY Work Phone: [facility] 11-27-2023 15:35-0400 Body weight 85.73 kg Catherine TRACY Work Phone: [facility] 11-27-2023 15:35-0400 Diastolic blood pressure 76 mm[Hg] Catherine TRACY Work Phone: [facility] Healthcare 11-27-2023 15:35-0400 Systolic blood pressure 114 mm[Hg] Catherine TRACY Work Phone: [facility] Encounters Encounter Date Encounter Type Care Provider Facility Start: 12-06-2023 End: 12-06-[address] [facility] at [facility] Start: 12-04-2023 End: 12-04-2023 Office consultation new/estab patient 40 min Alysia Lee MD Work Phone: [facility]- Medicine at [facility] Comment on above: Obesity affecting pr egnancy in second trimester, unspecified obesity type (Primary Dx); Polyhydramnios, antepartum, single or unspecified fetus Start: 12-04-2023 End: [facility] Start: 11-27-2023 End: 11-27-2023 ambulatory CATHERINE BAEZA Not Available Start: 11-27-2023 End: 11-27-2023 flow sheet Catherine TRACY Work Phone: [facility] Comment on above: 32 weeks gestation o f ; Third trimester ; Dysuria Start: 11-27-2023 End: 11-27-2023 Bamboo flowsheet Catherine TRACY Work Phone: [facility] Start: 11-27-2023 End: 11-27-2023 Bamboo flowsheet Catherine TRACY Work Phone: [facility] Start: 11-14-2023 End: 11-14-2023 ambulatory DEVEN CHRISTY Not Available Start: 10-24-2023 End: 10-24-2023 ambulatory DEVEN CHRISTY Not Available Start: 10-08-2023 End: 10-08-2023 ambulatory DEVEN R CHRISTY [facility] Start: 09-09-2023 End: 09-09-2023 ambulatory CATHERINE BAEZA Not Available Start: 09-06-2023 End: 09-06-2023 ambulatory DEVEN R CHRISTY [facility] Start: 08-12-2023 End: 08-12-2023 ambulatory DEVEN GOODE Not Available Start: 07-30-2023 End: 07-30-2023 ambulatory LADONNA CEBALLOS Not Available Start: 07-08-2023 End: 07-08-2023 ambulatory DEVEN GOODE Not Available Start: 06-07-2023 End: 06-07-2023 ambulatory DEVEN GOODE Not Available Start: 05-17-2022 End: 05-18-[address] IRENE ZUÑIGA Facility:[facility] Start: 05-16-2022 End: 05-16-[address] DEVEN GOODE . Facility:[facility] Start: 02-16-2020 End: 02-16-2020 Subsequent hospital visit by physician Najma Hilliard Work Phone: [facility] Procedures Date Procedure Procedure Detail Performing Clinician Start: 12-04-2023 End: 12-04-2023 Glucose quantitative blood xcpt reagent strip Alysia Lee MD Work Phone: Start: 11-27-2023 Urnls dip stick/tabl et rgnt non-auto w/o micrscp Catherine TRACY Work Phone: Plan of Treatment Date Care Activity Detail Author Start: 12-03-2024 Tobacco Screening Tobacco Screening [facility] Start: 09-05-2024 Adult BMI Screening Adult BMI Screen ing [facility] Start: 12-12-2023 End: 12-12-2023 Patient encounter procedure 12/12/2023 9:30 AM EDT Routine [facility] [address] [place] [address] [address], [address], [place] [id number] [facility] Start: 10-20-2023 Influenza vaccination Influenza Vacc ine [facility] Start: 10-20-2019 Influenza vaccination Flu vaccine (# 1) [facility] Start: 2013 Screening for malign ant neoplasm of cervix Pap Smear [facility] Start: 06-01-2011 DTaP,Tdap and Td Vaccines (1 - Tdap) DTaP,Tdap and Td Vaccines (1 - Tdap) [facility] Start: 2010 Adult BMI Follow Up Plan Adult BMI Follow Up Plan [facility] Start: 2004 Depression Screening Depression Scre ening [facility] Bacteria identified in Urine by Culture Urine culture Microbiology Routine Dysuria Ordered: 11/27/2023 [facility] Work Phone: Comment on above: Ordered: 11/27/2023 Payers Date Payer Category Payer Blue Cross Blue Shie ld Managed Care - Other ANTHEM [id number] 2022 Unknown BCBS BCBS xxxxxx [id number] 2022-Present [phone] [place], [place] [id number] [id number] 2022 Unknown [id number] 1990 Unknown [id number] 2.16.840.1.846689.3.579.2. 593 1990 Unknown [id number] 2.16.840.1.514664.3.579.2. 593 1992 Unknown [id number] 2.16.840.1.169866.3.579.2. 1259 1992 Unknown [id number] 2.16.840.1.244999.3.579.2. 9 1992 Unknown [id number] 2.16.840.1.996939.3.579.2. 9 1992 Unknown [id number] 2.16.840.1.600545.3.579.2. 9 1992 Unknown [id number] 2.16.840.1.484342.3.579.2. 1258 1992 Unknown [id number] 2.16.840.1.855661.3.579.2. 9 1992 Unknown [id number] 2.16.840.1.117157.3.579.2. 1258 1992 Unknown [id number] 2.16.840.1.973848.3.579.2. 9 1992 Unknown [id number] 2.16.840.1.854188.3.579.2. 1285 1992 Unknown [id number] 2.16.840.1.532053.3.579.2. 1285 1992 Unknown [id number] 2.16.840.1.849195.3.579.2. 1285 1992 Unknown [id number] 2.16.840.1.751349.3.579.2. 6 1992 Unknown [id number] 2.16.840.1.195792.3.579.2. 1286 1959 Unknown [id number] Social History Date Type Detail Facility [facility] Start: 1990 Sex Assigned At Not on file [facility] Start: 07-30-2023 End: 09-06-2023 Tobacco smoking status CAIS Never smoked tobacco [facility] Start: 07-30-2023 End: 09-06-2023 Tobacco use and exposure Smokeless tobacco non-user [facility] Start: 07-30-2023 End: 12-04-2023 History of Social function [facility] Start: 07-30-2023 End: 12-04-2023 Tobacco use panel [facility] Start: 05-01-2023 [facility] Start: 12-04-2023 Alcoholic beverage intake Ex-drinker (finding) [facility] Within the past 12 months we worried whether our food would run out before we got money to buy more. Never True [facility] Start: 08-15-2023 Sex Female (finding) [facility] Clinical Notes 04-21-2020 to 12-06-2023 Telephone Encounter - [address] - 12/06/2023 10:23 AM EDTTelephone Encounter - [address] - 12/06/2023 10:23 AM Deloris Rothman CMA - 12/04/2023 4:00 PM DEMARCUS Vasquez - 11/27/2023 3:20 PM EDT Note Date & Type Note Facility 12-06-2023 Miscellaneous Notes I LEFT A MESSAGE FOR PT TO CALL ME SO WE CAN SCHEDULE A GROWTH U/S. PT THINKS SHE ONLY NEEDS U/S AT PRIMARY OB OFFICE. CATHERINE Shahdi SAID SHE NEEDS TO COME HERE. THANK YOU documented in this encounter [facility] 12-06-2023 Telephone encounter Note I LEFT A MESSAGE FOR PT TO CALL ME SO WE CAN SCHEDULE A GROWTH U/S. PT THINKS SHE ONLY NEEDS U/S AT PRIMARY OB OFFICE. CATHERINE Shahid SAID SHE NEEDS TO COME HERE. THANK YOU [facility] 12-04-2023 History of Presen t illness Narrative Headache/epigastric pain/blurry vision/swelling? No Cramping/contractions? No Abnormal vaginal discharge? No Spotting or vaginal bleeding? No Loss or gush of fluid like your water may have broken? No Recent ER visits or hospitalizations? No Any concerns that you would like me to mention to the provider today? Just feeling tight and uncomfortable. REASON FOR OFFICE VISIT: Incidental finding of polyhydramnios. HISTORY OF PRESENT ILLNESS: Mya Olivas is a pleasant 33 y.o. at 33w1d due on Estimated Date of Delivery: 01/22/24 . has been complicated with New finding of polyhydramnios. Patient with normal hemoglobin A1c. Patient does state that she takes sugar cookies few times a week. Large for gestational age fetus. Currently the patient has no complaints. The patient denies nausea, vomiting, abdominal pain, vaginal bleeding, SOB or chest pain. Patient Active Problem List Diagnosis Polyhydramnios, antepartum complication ALLERGIES: No Known Allergies CURRENT MEDICATIONS: Current Outpatient Medications: aspirin 81 mg, Take 1 tablet (81 mg total) by mouth in the morning., Disp: , Rfl: [id number] acid ( 19) 29 mg iron- 1 mg tablet,chewable, Chew 1 tablet and swallow in the morning., Disp: , Rfl: Past Medical History: Diagnosis Date ADHD (attention deficit hyperactivity disorder) Lymphedema hx w/ last preg. REVIEW OF SYSTEMS: Head and Neck: Negative for any dizziness and headaches. Cardiovascular and Respiratory System: Denies any chest pain, shortness of breath, and coughing. Abdominal and System: Denies any abdominal pain, nausea, vomiting, vaginal bleeding, and vaginal discharge RECOMMENDATION: 1. Large for gestational age fetus. 2. Polyhydramnios seen. 3. Patient advised to decrease her simple carbohydrate intake. 4. Serial growth ultrasounds every 4 weeks office. 5. Continue form once a week NST and ALEXY based on criteria at her OB office. 6. Patient still low risk and can be delivered at her local hospital. 7. Delivery at 39 weeks gestation based on medical indication for polyhydramnios. 8. Bilobed placenta was seen which is a benign finding. Thank you for allowing me to participate in Mya Olivas care. If there are any questions, please do not hesitate to call me. Sincerely, ALYSIA LEE MD documented in this encounter [facility] 11-27-2023 History of Presen t illness Narrative Reason for Appointment: Patient ID: Mya Olivas is a 33 y.o. female who presents for Routine Visit Patient presents today for Return OB appointment. MEDICATIONS Current Outpatient Medications Medication Instructions Vit-Fe Fumarate-FA ( Vitamin Plus Low Iron) 27-1 MG tablet 1 each, Oral, Every 24 hours Vit-Fe Fumarate-FA ( Vitamins) 28-0.8 MG tablet 1 tablet, Oral, Daily ALLERGIES No Known Allergies PROBLEMS Active Ambulatory Problems Diagnosis Date Noted No Active Ambulatory Problems Resolved Ambulatory Problems Diagnosis Date Noted No Resolved Ambulatory Problems Past Medical History: Diagnosis Date [facility] deficit [facility] HISTORY PAST MEDICAL HISTORY SOCIAL HISTORY Past Medical History: Diagnosis Date ADHD (attention deficit hyperactivity disorder) ([facility] Social History Tobacco Use Smoking status: Never Smokeless tobacco: Never Substance Use Topics Alcohol use: Not on file Drug use: Not on file FAMILY HISTORY No family history on file. SURGICAL HISTORY History reviewed. No pertinent surgical history. REVIEW OF SYSTEMS Review of Systems: Review of Systems Constitutional: Negative. HENT: Negative. Eyes: Negative. Respiratory: Negative. Cardiovascular: Negative. Gastrointestinal: Negative. Genitourinary: Negative. Musculoskeletal: Negative. Skin: Negative. Neurological: Negative. All other systems reviewed and are negative. Hematological: Negative. Endocrine: Negative. Allergic/Immunologic: Negative. OBJECTIVE Objective: Physical Exam Constitutional: Appearance: Normal appearance. She is normal weight. HENT: Head: Normocephalic. Cardiovascular: Rate and Rhythm: Normal rate. Pulses: Normal pulses. Pulmonary: Effort: Pulmonary effort is normal. Breath sounds: Normal breath sounds. Abdominal: Palpations: Abdomen is soft. Musculoskeletal: General: Normal range of motion. Neurological: General: No focal deficit present. Mental Status: She is alert and oriented to person, place, and time. Psychiatric: Mood and Affect: Mood normal. Behavior: Behavior normal. Thought Content: Thought content normal. Judgment: Judgment normal. Vitals and nursing note reviewed. Vitals: Estimated body mass index is 34.57 kg/m as calculated from the following: Height as of 05/16/22: 5' 2 . Weight as of this encounter: 189 lb. BP: 114/76 Patient's last menstrual period was 04/10/2023. ASSESSMENT & PLAN ICD-10-CM 1. 32 weeks gestation of Z3A.32 POCT urinalysis dipstick manually resulted 2. Third trimester Z34.93 POCT urinalysis dipstick manually resulted Return OB: Patient presents today for a routine obstetrics appointment. Patient is currently 32w0d . Patient states she is doing well but has complaints of being tired due to current . Patient has verbalizes frequent movement. labor precautions was discussed/given and patient was instructed to perform kick counts three times a day. Patient states she has pain with urination. Will send urine for culture and send Keflex to her pharmacy. Patient scheduled for US NEXT WEEK WITH [facility], orders for nst and bpp sent for starting Orders Placed This Encounter Procedures POCT urinalysis dipstick manually resulted Follow Up: Patient is to return to office in 2 weeks for routine OB appointment. Documented by Leah Mason on behalf of: DEMARCUS Ross documented in this encounter [facility] 08-16-2020 Note DATE OF DISCHARGE: 0 08/05/2020 [...] complications. Course: Without complications. Sukhdeep Schaffer MD, [facility] Dictated: 08/13/2020 #[id number] Typed: 08/15/2020 #[id number] cc: Sukhdeep Schaffer MD, [place] [facility] Comment on above: Result Comment: Elec tronically Signed By: Karime MACEDO, Sukhdeep Olivera\.br\Date and Time Signed: 08/16/20 08:09 EDT 08-05-2020 Note The following Patien t Education Materials have been given to the patient: EducationMaterial [facility] 08-04-2020 Note Patient: LAZARO MYLES Age: 30 years Sex: Female : 1990 Associated Diagnoses: None Author: Funmilayo ESCOBEDO MD Basic Information Reason for admission: Scheduled induction. Maternal complications: Obesity, depression. Informed consent obtained for procedure. Gestational Age: Gestational Age (EGA) and CLIFFORD * Note: EGA calculated as of 08/04/2020 CIL[place]ORD: 08/11/2020 EGA*: 39 weeks Type: Authoritative Method [...] Attention deficit hyperactivity disorder / SNOMED CT 9267755932 / Confirmed Chronic fatigue syndrome / SNOMED CT 53586887 / Confirmed Depression during / SNOMED CT 7696438055 / Confirmed Insomnia / SNOMED CT 820189835 / Confirmed Obesity / ICD-9-CM 278.00 / Possible Obesity complicating , third trimester / SNOMED CT 4724905362 / Confirmed Ovarian cyst / SNOMED CT 533526826 / Confirmed / SNOMED CT 393086821 / Confirmed labor / Patient Care / Confirmed Supervision of high risk in third trimester / SNOMED CT 22382722 / Confirmed Histories History History (1,0,0,2) # 1 Baby 1 Outcome Date: 2008 Outcome: Live Outcome or Result: Vaginal Gender: Female Gest Age: 41 weeks Wt: 3232 g Hospital: [facility] Benny Labor: -- Child's Name: -- Baby's [...] Use (11/21/2009) DENIES 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 Home/Environment Lives with Children, Significant other. [...] hearing, Oral mu (more content not included)... [facility] Comment on above: Result Comment: Elec tronically Signed By: LAURA MACEDO, Funmilayo Ryan\.br\Date and Time Signed: 08/04/20 13:03 EDT 07-31-2020 Note The following Patien t Education Materials have been given to the patient: [facility] 07-26-2020 Note The following Patien t Education Materials have been given to the patient: [facility] 07-11-2020 Note HOSPITAL REGULATIONS : ALL Positive [...] for further cervical progression. Sukhdeep Schaffer MD, [facility] gls Dictated: 07/08/2020 #[id number] Typed 07/08/2020 #[id number] cc: Sukhdeep Schaffer MD, [facility] Comment on above: Result Comment: Elec tronically Signed By: Karime MACEDO, Sukhdeep Olivera\.br\Date and Time Signed: 07/11/20 07:40 EDT 07-08-2020 Note The following Patien t Education Materials have been given to the patient: [facility] Note The following Patien t Education Materials have been given to the patient: [facility] Evaluation note Diagnosis 32 weeks gestation of Third trimester state, incidental Dysuria [facility] Diagnosis Obesity affecting in second trimester, unspecified obesity type- Primary Polyhydramnios, antepartum, single or unspecified fetus documented in this encounter [facility]Not on filedocumented in this encounter [facility] SystemInstructionsNot on filedocumented in this encounter [facility] Summary Purpose Family History No Family History Records FoundNo Family History Records FoundNo Family History Records FoundNo Family History Records Found Advance Directives No Advanced Directives Records FoundNo Advanced Directives Records FoundNo Advanced Directives Records FoundNo Advanced Directives Records Found Additional Source Comments INFORMATION SOURCE (unrecogn ized section and content) DATE CREATED AUTHOR 09/15/2020 [facility] DATE CREATED AUTHOR AUTHOR'S ORGANIZ ATION 06/29/[address] [facility] DATE CREATED AUTHOR AUTHOR'S ORGANIZ ATION 11/29/2023 [facility] EPIC DATE CREATED AUTHOR AUTHOR'S ORGANVAUGHN ATION 12/07/2023 [facility] Reason for Visit (unrecogniz ed section and content) Reason Comments Routine Visit Reason Comments add on poly FOR RECORDS PERTAINING TO PATIENTS WHO ARE [...] BE BASED ON THE PRIMARY CLINICAL RECORDS. [employer] provides no warranty or guarantee of the accuracy or completeness of information in this document.
--- OUTSIDE RECORDS SUMMARY | 2023-12-10 07:12 | XMS_ITS | CCD ---
Author Organization [facility] Care Team Providers Care Coldfusion Name Role Phone Unavailable Primary Care Provider Unavailabl e CHRISTY ., DR WILKERSON Admitting Unavailable CHRISTY ., DR WILKERSON Attending Unavailable CHRISTY ., DR WILKERSON Consulting Unavailable OSCEOLA, DR IRENE Dee Consulting Unavailable CHRISTY ., [...] aspirin 81 mg delayed release oral tablet (5 sources) Platelet Aggregation Inhibitor, Nonsteroidal Anti-inflammatory Drug [...] 7 days. 21 capsule 11/27/2023 12/04/2023 Active [id number] acid ( 19) 29 mg iron- 1 mg tablet,chewable (3 sources) [id number]-[id number]-pkyym acid ( 19) 29 mg iron- 1 [...] Polyhydramnios and other problems of amniotic cavity (5 sources) Polyhydramnios with problem; Translations: [Polyhydramnios, unspecified [...] External Glucose Fasting Or Random (Fbs) 126 [facility] POCT Hemoglobin A1con 2023 HbA1c (Bld) [Mass fraction] 5.1 % 4 - 7 % [facility] Urinalysis macro (dipstick) panel (U)on 11-27-2023 Bilirubin, UA Negative Negative - 4(70) +++ mg/dL [facility] Blood, UA Negative Negative - 50 [place]/mcL [facility] Clarity, UA Cloudy [facility] Color, UA Yellow [facility] Glucose, UA Negative Negative - 2000(110) ++++ mg/dL [facility] Interpretation and review of laboratory results Normal [facility] Ketones, UA Negative Negative - 160(16) ++++ mg/dL [facility] Leukocytes, UA Negative Negative - 500+++ Saeed/mcL [facility] Nitrite, UA Negative Negative - Positive [facility] pH, UA 7.0 5 - 9 [facility] Protein, UA Negative Negative - 2000(20) ++++ mg/dL [facility] Spec Grav, UA 1.025 1 - 1.03 [facility] Urobilinogen, UA 0.2 0.2 - 12 mg/dL [facility] PAP ACOG PANEL 2: 23 to 31on 05-24-2022 . . Normal [facility] Comment on above: Performed By: #### [id number] #### [facility] [address] [place] [address] Dr. Michael Garrett Age Gdln ACOG Testing - [facility] Comment on above: Performed By: #### [id number] #### [facility] [address] [address] [address] Michael Garrett DIAGNOSIS: Comment [facility] Comment on above: Result Comment: NEGA TIVE FOR INTRAEPITHELIAL LESION OR MALIGNANCY. CELLULAR CHANGES ASSOCIATED WITH INFLAMMATION ARE PRESENT. Performed By: #### [id number] #### [facility] [address] [address] [address] Michael Garrett Methodology: Comment [facility] Comment on above: Result Comment: This liquid based ThinPrep(R) pap test was screened with the use of an image guided system. Performed By: #### [id number] #### [facility] [address] [place] [address] Dr. Michael Garrett Note: Comment [facility] Comment on above: Result Comment: The Pap smear is a screening test designed to aid in the detection of premalignant and malignant conditions of the uterine cervix. It is not a diagnostic procedure and should not be used as the sole means of detecting cervical cancer. Both false-positive and false-negative reports do occur. . Performed By: #### [id number] #### [facility] [address] [place] [address] Dr. Michael Garrett Performed by: Comment Normal [facility] Comment on above: Result Comment: Francisco Otero, Diesel Fleet Mechanic (ASCP) Performed By: #### [id number] #### [facility] [address] [place] [address] Dr. Michael Garrett Reflex Criteria: Comment Normal [facility] Comment on above: Result Comment: The HPV DNA reflex criteria were not met with this specimen result therefore, no HPV testing was performed. . Performed By: #### 4 [id number] #### [facility] [address] [place] [address] Dr. Michael Garrett Specimen adequacy: Comment Normal [facility] Comment on above: Result Comment: Sati sfactory for evaluation. Endocervical and/or squamous metaplastic cells (endocervical component) are present. Performed By: #### [id number] #### [facility] [address] [place] [address] Dr. Michael Garrett US PELVIS AND TRANSVAGon [...] by: IRENE ZUÑIGA Date: 2022-05-18 07:45 Normal [facility] Nursing Assessmenton 021 Nursing Assessment [id number] #[id number] Normal [facility] Coding Summary.on 08-16-2020 Coding Summary. CD:[id number] Gh0bWw+PGhlYWQ+PE1FV RLcR33isSWbkC5AP1bZL U7SAPKGEGVHFN7QXZ7yo WB4CGehW8JlmzRv YasgvWZeYF51THz3VTB2 oEwuRWxxhY8zeECnU6q9 KiCbGD47rB52ADghDVZm ThN2VgEegtliaRZi V2acBtIxyDOrScf+PHRh YmxlIHdpZHRoPScxMDAl GxEpoCgyFR0gDu8aKTWa LWNvbGxhcHNlOiBj s9jhOLBtOLkbQM8ccNcc H1DnuKW0NKUln5u9Rp86 dHI+DKEnANX7xHscGNpi b013YsKbb7klFLL4 cYCsABrsGBJ0U47rq5T0 UIThYUUcJPL2xSN5zE5q lKgwsafxX6CimRHzCbG8 MUD2fLNkrR0ruIhg zsnpyN3pZmh+D30IDJ2Z OOCHBY3YRrx0H7MyKyai dHI+ST13KSIyXB77iOGp wLPuv7obdFd4CsPy TXPhKRC8iLybYRnfy4Ei WLKjI43snFOov6F7DRFu vAifdAZyMrAqaPB3aH9d ACoiihkqz8ljofcg Ruonz0hirs56bM48Z81z QMuqGFFzTGQ8ZUCmGJTz pBavcd9gzF1lAe6+IDxj u9rko4jexVo9HrWe UEDsdsDvcVblSRC7d4Lp Cn44T1HgrZyew8WgTbo5 cd95lXVox9L3xKY5FPkf QMCvgU2oNEofXoL9 YAVnEwSggA39lAFdCOnq Yc5vwAidhKzbPH7qIQDx nlsfNSOgyJ0rUGKhxIWz lUciPH4uPKLlevrx p012LyKwLRH9OLIvfLPw R7DhtZ2yIsAtKEObYVTw L5GnmXJeFMvmX376JWdx WvL6FXCrjvLtQ9Cb RHBkdVopUpG1p2A6Dx9U y5QpnwjxCLH2ZGrrIQQ6 RoE6RhMyRrB1S4TbRff8 SCWyvDoaFX4pD3En RLMnwwtjnouorLI6DWPs IZZuuW44fKQhWJxkYe7v k4R6g826AMZqACQxwZ68 Np6tpLvzMGKdhXPC aT3kybhgi1eowgovOfTa ZVKhDDi2YGn7VMFouMkt OxWjLLD8RwP5HMR1tMSj cJ2yyIvpvbtjbJ7h Oyc+M73wrD3kDUH3KSZ7 yvkqIUVrojDnRN47MZ05 Y2OtXycwmBSkyHM+PGRp qdKfnQwcGR8eLoIv l8jgo6MfMSxoI4HlKIHv TMudWdf3GBRzNLZ0fRN8 nL2oMFJzLHsgy7E4eNW5 R9CowwAhtu3he8bj BTNhMAohI53zgZNmx5R4 SGDanYZ0PLHzvSzcOiNz oI43Pyi+TKPbtWjwl9Ay Kfvgg3lff1ddyAx8 IjMwJSIgdmFsaWduPSJ0 f5OwPb58R57bUMzqPAKc FZDxYGPwCLBtjKpnht9d nN9fOb8+PGNvbCB3 vKC3zQ5lGVLtQhS1FOsf K698RaHeqFYaQzybo6nc q0lwfKj5FrBaYEIsdxBn tShaCAY7u2NhGb00 F18mQJmbLPGaHKIqQMTq CQByjWtdve8dfX7vZl1+ US0on1vabh08sO54nFF+ SLTyVKP5gTgfXWfi PJQldF1mDImsRlQ1BOWx GjRwiQ34nFCmWPdaJh8m qDutmDqsDF6yAIFczpux t442BoFgl2lrEHPq zBNgFOndRBQ8R96ti1O9 YZPbUCKvYOK1oUM8pR7u bGlnbjogbGVmdDsgdmVy jLdpJPckSXakS215 IHRvcDsnPlBhdGllbnQg AkGoOSv6U3MuFwv5ZTDt dVkjUN3uaVOeKEveSf0g nKwxdWgeUJ5kEIId tacfr077PaQfb9koXDEj hOJsAUkoEDP6V19mf8L3 COWqMYUkMMW1vYL3fP8z bGlnbjogbGVmdDsg qqHosStgIRqmVXjvC872 IHRvcDsnPkJpcnRoIERh mTO0YJ82HE82dDTew5W4 iHY0Y5YtPEIfamis hxywxQV1XDJoUTAdhJ75 Ih6kiHzaSo2lTJYnRZU8 JKVwkIAwM6WzrJ9qBdYa FNRfSYLmV8XukQUr SEfhY996BGvaUtA8MAEv ysIlK3JcIBQedJfqGbD1 y9O8Tm9WL4N6YA67WS29 zOVyk7C0rUE9C3Rn JUUylnooshhejHA5YCXg EWIziA36Bl3jyAqgAc7v FFKfMJX6JYNptARqW8Sn oJ6iNqGnUHWiNJVy K7OvwEEhOOhrG257ELso PdI0UCZtxzQaF4RcEAUd cQweMoK3j4Q9Ym7DJOd4 BS15ND55kPDph2S0 pLK1N4HxVXZgrxxnfrhc dJJ2BOHsXYLknY55Nj9b vTlxWy6wQOTqBBX8PAUr cODuN2SflW2mAkNi UCYcFNBiK0MwyVWbCEbg Z607SXgdJbD1QLVozcGi M9QsCGDlqYuzGvH9p8K8 Tl6CZGVhVQ68YLN9 sJW6ZO14YR28U2HlQwsw dGFibGU+PHRhYmxlIHdp ZHRoPScxMDAlJyBzdHls NY9aEq1xSVIcNQQq eDybrVRdXzCgh0zhDRMu CCxoIU5egIjbP5JqbXB6 ZPZwq4v8Xv46T25gM6Ji dXA+HZUsdYW3vQD3 zG7bNuEwGnJ4CJvqT263 NqRtuZBzAeslm4vuz4pt oTr3YsU9XKBzexCeiRgw YMX2o5FgHb66X24y IHdpZHRoPSIxNSUiIHZh fKzhmu4uqX1rMf4+PGNv zSW5mKL9sT0kDvPsDhK2 YZvjV003HzLloLBe Vjzmp5eaw0iqkEj7ZgUp SJQxgqTnvCxkXYY5n0Ji Fl80A4VlcJzdy7UaNls8 le47aDPcw3B4jZZ7 W2HhOWVviydigXWsmKqf LZ5zGOUspzwiILBpjF3x PVCbR2s2LuOwPvV7CKca Y9CdazA6RQTcrVNj NMhxZTJ6D09sp8X7ZBMx FAIcDCP1lSM0tP0mtZnj bjogbGVmdDsgdmVydGlj WUjxBZrzC528XQEc jWozEJRkxA0cUCRofYMu zYplTU4bQOFkapsuRvHO MxnHLo9hYSQBZcKIP2Pe TDwvdGQ+PHRkIHN0 zVjtBVsqFZIsxS2jLOVx Z0a3TyLeCvX3SBwqZ2En BEWxnomsDj03aN1wNjBn EaB1OUnuC8CkfbN8 NUBsjYFvPJhlQIN4N68i z8B1ZPLkHHTlVSZ1yRL5 oH8pcSpjvmcmnQVetEcd dmVydGljYWwtYWxp U000VRCmcGrfXiR4LpSe PiW2FWD1L5QcGch5ENBg zDukIH3tiFIiUVquAz5k kGxjaQunNV9rJUSh hsmoBFRuhH2xPISqfSNn fKgxKZ9iRYKhsstqj626 WfKxNLF1RQFouTTmZ0Rs oK7gRzSxBNRzGBWm Y8ZlrYAqRVstU783VNao WeT6XQOedfMcF7ImDSKp mDpoWrL8v1K6Bp5zVXQH ZWFyczwvdGQ+PHRk OHQ2oVwgVGqgWHItzA9s KTXfH7r6XgAvQfC0ODqh O0UoKPFefcvkWt11uA5u QeSaCoQ1NIboI9Nd zxE1LEVxiNAoRZiiAQO5 E32hz8B0UWRrLDHnNPM2 hYI2dI5seGihulokcJWh dDsgdmVydGljYWwt TWonZ567EHVmvCueSiHx bWFsZTwvdGQ+PHRkIHN0 yQfuMEiuUDMnlC3tVUSh R6s6WvGvUtI7FZky O8JoSGHykdlcZj11gO5o MxHxMvQ2MYpkU3MhkmO2 DXHquXUxKUwyDDG2E12o t1X1STKqEJXpRFZ7 bXY3iZ8zzPxpgawnuLEc dDsgdmVydGljYWwtYWxp S875XKFgzIdaSf86nXWw mQrcfdD3I6FqGdqx dHI+YT43CTDlSW36dYIt xSFqk2zvxNu9SoBeNLZl WDW9eBueLGogn3KwINJy P73mtGGcm8K8SFUy kAwwuVNlGjDlhPR7xC9e WXzjapzns3bbpyucYjsn n9lbgq01vZ21X01kYRws ZHRoPSIzMCUiIHZh kGgnzu4uqC5dGv5+PGNv hTR3xRO1bV5yFlVnPrD6 NIkeT939EfEkySAjKnkv q4fem3eyrSm6PjPe KLOwwoNqvLuiSDY1f8Mp Be31I21tDUlxWGAkDHYt KUWmADZmyJnumn2cwJ7d Ii8+PR9mk2ztxj13 iD07qKF+NSPuZSH5dBvc ZGdxJXWzkU8xTSyaZwM3 TBAkCpBagL32rBWsDNuy Xg2jjGuhaYhsRV7s QOOhuhfbl200OgWbt2nq ETPdhMKzBQfzDXG5S93k o5O7CZWvMBOjGHO6qVQ2 nM6moRazwdphiDRw dDsgdmVydGljYWwtYWxp N708YBVqrVjuFfUjpZYa R0dganXSBZ1iIxfhsKH+ PAKkYAJ2nNcjMXdw AFOgwR2hVRGcB4v4JqDq YmE7OQrfU7WkuzV2IBZe zCRwEYRomUBVrA1gckzz y6rxujwvAdPhDHOg IMt0JCy6BWAfnFsrQxOv POB9ZpL0TMR7lKDpoV6r rTtvwblvrO7yWsa+RklO OjwvdGQ+PHRkIHN0 wAcmMTwaQUKwaX6yYIGv G5s1LyBdBdZ3LMyoZ0Qi hhT2TDHubFBvTGIaoOHT oR8rmnljd3arykcs JrBqDPIiNJu3CPw3MYXe pBhuXpGaBFC9KrW6QQF3 fFXnyN3agNmgfkzsfB5f Oyc+TVJOOjwvdGQ+ RXOqLOD4gVtqDWsdCZHi aD2cUHKuX9y8KaKuJvJ8 OOhnI5PusqL1YDKjuBGi GRBldQOEsL2ogqhw c2afzjrbTsOsGNQpKWt2 IDc0JOOklCezWlBeDJT2 EnS7FYO2yXWstR5lgJou itevdG1tAda+UGF5 WXF1GB22QK04N8TyUnng dGFibGU+PHRhYmxlIHdp ZHRoPScxMDAlJyBzdHls CX7uSc4rVWQjFHCc bGxh (more content not included)... [facility] Coding Summary.on 08-15-2020 Coding Summary. CD:[id number] Gh0bWw+PGhlYWQ+PE1FV VRaK28zmKIewH3LM6cQR E9VUDYQYRLIBB2BNY5nc IJ4GHxaY3DktcXr RctlpPTrNI27WCu0UHH9 sYyfOHkwgT1wzHTeQ3l7 ZyItJR09rE38AFymQTJh GjP2NnQnlpptbUMj C5vsZkBkpFEeCok+PHRh YmxlIHdpZHRoPScxMDAl OiWadYmxGY1yGn4jFJYk LWNvbGxhcHNlOiBj t4okNZQaJUozBV7gmSrz U1CmdVL6VTZkk9r3Is32 dHI+LODmDMT1zYtuRDcg w209RlSlm0jiVPF7 nAWsJZnvMEH2N78gi3V9 CHSoDPZoRNS0lGC0hI8y kZwhgmijQ3HskDObPoX1 XHW7hHGbyW7xyJse tmfhkE6wEhg+U01VOI4N IQPSAC4DVbj5S0IjXjzz dHI+FA40UKIxDT97zDAk bXLts0byeOk8IqEu LBHyDFK2mLniICcjj9Mn GUNbN84yyDFpe0G6EFWl lEpfdTLjKbFovVG6zL1d LAgfkvwyu9vwtngf Vvdwx8amsi21yM12A30f PXlqBDElLMZ1HWKsAJDc mJazjb6vxU5xTp1+IDxj h0syu1msbYo0CfHi UUDoxyAyhUeuHDD1g6Kn Dq88M4JrtQwmj0NwWkk2 zl25hJKaf3I9fBZ5PGcw GFOfoP5eYFnpQpB1 AJDxIeEofO73lKSmERwi Rc1wmUuraAryNJ7hOIOk ndztOHPamI3tKYFyzDPr hUwvBW9lGCNnyekc z011DuJtHZS6JNKuiCJv Z8JhwB4bFoUsAMNdPBTh K6PggJMiCPbmM989DAqv UsO2QEOsflHaR6Mb LDPuhYzwFmC8p6N4Lk7S t1FwuvopFPD6LEfaSVD9 YjW3KxPxPoZ6L9WaAam3 DHUdlBpjKO2nL3Ps EVCdcmpopoqvoYI3BELx LOCvpJ40sKGuFKyoQc6s a0U4w181ZAFzQVToaZ90 Hp2zjYjiFTMjaMFW uM6wraihm4puwsgdVeDp TTPnMTm9BMb8KZAdiKro VuFmJUD2SvZ3CWE0zMWh fZ5dfVpjxktpyB0t Oyc+E41vdS6aGIJ4ROK3 ewfmZTDdejUjZI70UD35 T4IsKfxqkQFuzOG+PGRp ohDtnVyyJV8mIgLw r6hnt9XzUQogT5MdJPKf BCfdJwo6WBAvONO2oDD8 yO0pXQHnUIkdb9C1rRX5 K6FwumQfye3hq9mr PPJmZCydY10ebJXxt4P7 SMXoyJI4BZNjtLfoTyMy lQ72Eha+GYDjkPnfv7Ub Otbrh7suv6xbnLc0 IjMwJSIgdmFsaWduPSJ0 j7KfZx15I51fFHexNSUu ZEOzWJWbKMZtqRpkou6j oT9fJu2+PGNvbCB3 bYW1wP8bRXMfSoV1LXez V416LgPpzKZkXssve1vk a0tovIy5FiWdOTChuxGn oKzoAOE1e9SoQh19 S85eHQoaZXClURApPKOg ZMAchHolvv0vrO5aKs7+ GM1qk6bljf16hX02eTW+ TKPcMWH7mLmdNDnz PZLbaO4wJMimThQ6CMCv ItAhoN32fFOhKCboTv8e iPopdJncOH5bOSRtpgpj d402QyQch4wmQEKi fNUdTZbqWNZ7C94ku9D7 MHAcSOZpILH5nHG9zL8r bGlnbjogbGVmdDsgdmVy kDpuXYswBQwnN528 IHRvcDsnPlBhdGllbnQg BuYyATy8D3WdJui6TMPe dOcxUX9imZOqOSbdXm2u sZkhnBuhXL4yVLXs kpzfp772SnRsp9xsRGOk sYOmUMvpXPR4Z22mn7P6 PHTjENZiTHL1wEU6zQ9n bGlnbjogbGVmdDsg zmSnyOaiDBtoYOxrP793 IHRvcDsnPkJpcnRoIERh uGP4NW63OP94zTSmc3I4 xKN1Y5KxKKYjpajp wkenuCN0SSOsVXRjsZ79 Yn7igGprJe3iLUFrLII2 ZPAzjAVtK9PjaI3nNjNj QOGvCYUfQ5CeqHAx UGmpG037XOlsLlX1QMZe dfMgV7TtSRWttFfpFkL1 o1O4Kw6LT2Q4RY33EM43 cABak5V1zGC9Y6Tx MIQjlomsqoqgwZT8PHOp KTGiqT95Ee9wcHkhDt8p GBApNGG5OSStxEKcS2Yz xX1xIkGySPUdANWz N1VuxQJrCZkgK698FEtc UgG7EKJkrvCzM6HjZTDy qSauUnZ8n1V5Da4RMUw8 AW50NX97aSTpu8X8 qOU3L2LgQIDkjyyjxqlx jDZ8KHVdGWRddI91Rv8r eJliZq3mYHHbMDK0RAHb bGGiQ5QnyF8zGaEj FECpKECsK0MeqONrACax I843OLioZcW7HSJggzDk R6BjYENtjHdcXqT7i9V1 Mj8WMORqXY53XYG1 uTV2DV02HP93F4AqZkkz dGFibGU+PHRhYmxlIHdp ZHRoPScxMDAlJyBzdHls JS3pFr9nSKXlXHBy rUbraCIaHcSbh1loGVKz QJurFA9lcHbjK1GzqBJ4 INTur2o3Zz32J54oP9Za dXA+ZQJtpVZ2gSZ5 wF3cSqUqYeI6NFokO888 UqTnsLNtSllhd4uuc5iw gNj2BrS5IWGqptHglTyf BVJ4v7IdKb27P83e IHdpZHRoPSIxNSUiIHZh jEvmje8lxT1mUs5+PGNv cTG5mPL0cM3aViLgXvM0 UIjoN159QuJinHZv Lvwxm7nly5zgeUz0HzUx HACnqlXgcMsfRZK5l1Xx Os97E1YbrLkeu1PcTxu8 cy01kSWku1D9mAM0 G5EwQUJnyymbsBPavJmk EV1cMTPrjdohIMDrsJ1k MWUdO0b8RzFfJzW1HOkd M6UpjgC6QUMlwIOn JXkxLUA5E23mr6H3UOBn RJQvCVO2aGS3tA2zjAri bjogbGVmdDsgdmVydGlj ZFedVJuoO456XKLw sDjaADDofG5nNIEzrEQc kScuIN9oWDVnofazRxCN UaaGBs8nBNZSPyFGE1Uc TDwvdGQ+PHRkIHN0 rJcbFLwgGBVjgB7dTSQs H8p5WhWtPaL0UMneR3Xj QRWhwapnBy15xJ4nUzUs GjX1IJwhH3IhqvJ5 BEXqfPPmMEkiCFM4B96x o9J9EGFvDHOyWPZ2sVS0 sQ3afDspnsbspWKtbRln dmVydGljYWwtYWxp S740KXUgkKaoOdK4WaAp NbE3EIA0C7GaLpa1VOMd wSfxIW6noIYzACxvHo7x zBrleTqrSO6hVVXt yvrtHTVwfX5kRIHhkOPe hKibTC7fYRDhfwzue782 DrRtLYA7OXModILhR5Sy vP0zXuZqUUZlJWUh E4TfrBUzSIfnO652GPoh HgH9OGUjcfIbU0ZcDCEe jEqjIoQ8m2U4Xr0qGJVV ZWFyczwvdGQ+PHRk HEP6uZavYRpkJWJygO8v AAKsQ0o9HuNvGfA1ATby H7KxKLSbmueuWl94mJ1r JcKpZcR4TIcpL7Fy klE9EHTnzXNgARpaQDH0 D58gn4B3BCAyDDFcEUE5 lSJ7dV9ypTdxwodsoQSy dDsgdmVydGljYWwt JBrnH246XVAstLgyAkCm bWFsZTwvdGQ+PHRkIHN0 zItlBEsvEHPwiU7vKMDf J2q4GtQpQoO8OAsj L0OwBTHvbierGr52oI3v EzZsXcR5OLvyK7MltwM3 TENydKDgTItxJEW3S07h p3D7HYNxPVBjTOE6 sVB3nD6mqBsawgnliQIm dDsgdmVydGljYWwtYWxp C791HLKptHsgQdrfzZA0 aWVudDwvdGQ+PC90 hg11E3YmTcqnAhk0EFCj FGR2bUC9nY5jPSVrIHon f5T9dKH2D4DowtZdje1h x3goWGMsDHhgS00k aXNdk6W1BDUmcCK8HCPj aAguGeFjvD35Yfb+PGNv nJhkh2ZuGjkho5ykg1ld hZz5RzCvUBEtaeSh eQiaNCR7z5JwCt21R47v IHdpZHRoPSIzMCUiIHZh bWepls8enN1zJm3+PGNv rMQ8rUN3eL4oZkKi CtR0UDxsJ264RfLdfWPv Bgpvr2esa0cnkRo7AwOb UTOpyuDixDteYXL6d2Fu Xk88V8MgyTgkv1Ry Awi2us75cDPhs6A0gBA7 L3ZsQREapexflZAfpBbx YS2yVVVmhwekXTJkxS6j WOAfY2s9XhZpPfA7 AMftJ1PorkC8FLXxlCWh WZVrqVKSpO4mgfojl7he fbxfTzGtKIGxYTy2YCa0 LWFsaWduOiBsZWZ0 PpB7HWF1jWFhxM4loZsa gglioO7lUcl+QNr2w1el qXXcGL2yoDU3EP02ZP04 fLGpq4D0rYM0P0Hx ENVecztemucywDQ7AQKq ZOGlxY61Tl3poHnnJc2c KMMxRZE2CJRdmNYyM4Fq zC5aGiGvBOWxVZFw L1PctOEfXAjrT842XPwd TqE1RKKhqaQdQ3FrCDVy oLetHzJ2u9N6Pe9SNE24 HS39LO36xNBcx7B2 qAZ9M8GbEHQcxtlbfiry fJI1TBApUOExnQ42Ge6d ePghFp9wNUUvOOM9BBIh lGUpX9CtdC8pKyAl IDHrHHZuC4SjfMJqWYfr C834AVrmLxE2APJgllZi I1FrNKQfcSboFwU3r0I2 Fa8UZp79LT52US13 lSVeg3O0eSP8B2PaIDNc yukbdbnruSY0VSOgRFNq fF08Cv8zcTelXu8oNDRp KHK6FKCwbFLcX7Ez yG9pPaCdVQVcDSVsA6Gn cHOsJZhfO625VZxkVbD2 GSNhroHbJ5JpOPRlbEgw BlQ0r7J7Fq3JQWgk rpe6C9AbIicglCD+PC90 SBBlCG07oFQskOXvl6vb yUk6LmCjOMHpNUB0eAij DJegd0ZjQPBfZ59h bGFw (more content not included)... Normal [facility] Consent for Treatmenton 07-20 Consent for Treatment [id number] #1.00CD:127 Normal [facility] General Message Officeon General Message Office --- --- --- --- - -- --- --- --- --- From: Basilio, Direct[employer] To: MYA MYLES Sent: 08/06/20 02:30:52 AM EDT Subject: Discharge Summary Ready to View A summary regarding your recent visit is available in the Documents section of your health record. Normal [facility] CBC w/Indiceson 08-05-2020 Erythrocyte distribution width (RBC) [Ratio] 15.1 % High 10.9-14.2 [facility] Comment on above: Performed By: #### 2 [id number], [id number], [id number] #### [facility] [address] [place] [address] Hematocrit (Bld) [Volume fraction] 26.0 % Low 34.0-46.0 [facility] Comment on above: Performed By: #### 2 968368, [id number], [id number] #### [facility] [address] [place] [address] Hemoglobin (Bld) [Mass/Vol] 8.6 g/dL Low 12.0-16.0 [facility] Comment on above: Performed By: #### 2 328258, 7196664, [id number] #### [facility] [address] [place] [address] MCH (RBC) [Entitic mass] 26.3 pg Low 27.0-34.0 [facility] Comment on above: Performed By: #### 2 963186, [id number], [id number] #### [facility] [address] [place] [address] MCHC (RBC) [Mass/Vol] 32.9 g/dL Normal 31.4-36.0 [facility] Comment on above: Performed By: #### 2 875590, 4632794, [id number] #### [facility] [address] [place] [address] MCV (RBC) [Entitic vol] 79.7 fL Low 80.0-100.0 [facility] Comment on above: Performed By: #### 2 895397, 4079680, [id number] #### [facility] [address] [place] [address] Platelet mean volume (Bld) [Entitic vol] 8.0 fL Normal 6.4-10.8 [facility] Comment on above: Performed By: #### 2 881475, 2703077, [id number] #### [facility] [address] [place] [address] Platelets (Bld) [#/Vol] 259.0 E9/L Normal 150.0-500.0 [facility] Comment on above: Performed By: #### 2 881945, 3681027, [id number] #### [facility] [address] [place] [address] RBC (Bld) [#/Vol] 3.3 E12/L Low 4.3-5.9 [facility] Comment on above: Performed By: #### 2 801885, 5231527, [id number] #### [facility] [address] [place] [address] WBC corrected for nucl RBC Auto (Bld) [#/Vol] 10.2 E9/L Normal 4.0-11.0 [facility] Comment on above: Performed By: #### 2 515280, 4539493, [id number] #### [facility] [address] [place] [address] Discharge Instructionson Discharge Instructions [id number] 106 [id number] 9#1.00CD:127 Normal [facility] Inpatient Clinical Summaryon 08-05-2020 Inpatient Clinical Summary [address] [address] Clinical Summary Person Information Name: MYA MYLES Ifeoma/[facility] Age: 30 Years : 1990 Sex: Female PCP: Chao Blackwell III, DO Marital Status: Single Race: White Ethnicity: Non- or Language: Trinidadian Visit Id: Visit Reason: Speciality: Acuity: 1 PP Enc Type: Inpatient Med Service: Obstetrics Arrival: 08/04/2020 06:59:23 Discharge: 08/05/2020 17:20:00 Dispo Type: Home (Routine DC) Address: [address] [place] [address] [address] [place] [id number] Provider Notes: Diagnosis: Depression during ; Obesity [...] Address: When: [address], [place] [address] Business (1) Within 6 weeks Comments: Call Dr if fever>100.5 F, heavy bleeding Call for any problems. Nothing in the vagina for 6 weeks Type Location Start Fin[facility] 09/15/2020 9:00 AM 09/15/2020 9:15 AM Confirmed Patient Education Information: ibuprofen 600 mg Tab Normal [facility] Inpatient Patient Summaryon 08-05-2020 Inpatient Patient Summary [address] [address] Patient Discharge Instructions PERSON INFORMATION [...] Address: When: [address], [place] [address] Business (1) Within 6 weeks Comments: Call Dr if fever>100.5 F, heavy bleeding Call for any problems. Nothing in the vagina for 6 weeks In the event that this physician does not participate in your insurance network, please consult with your insurance company to find a nearby participating provider. Type Location Start Finish [facility] Saeid 09/15/2020 9:00 AM 09/15/2020 9:15 AM Confirmed Comment: JUSTINO Burton VANESSA L, have received the attached patient education materials/instructio ns and have verbalized understanding. Patient Signature Date Clinican/Nurse Signature Date MEDICATION LIST New Medications ON [id number], [address] [place] [address] [phone], [phone] ibuprofen (ibuprofen 600 mg Tab) 1 Tablets By Mouth every 6 hours. Refills: 0. Last Dose: Next Dose: Medications to Continue with No Changes Other Medications multivitamin, ( Multivitamins) 1 Tablets By Mouth every day. Last Dose: Next Dose: Pharmacy Information: [facility] PATIENT EDUCATION INFORMATION Instructions: Medication [...] younger th (more content not included)... Normal [facility] ABO/Rhon 08-04-2020 ABO/Rh Positive Invalid Interpretation Code [facility] Comment on above: Performed By: #### 1 [id number], [id number], [id number], [id number] ####[facility] [address] [place] [address] ABO/Rh History Checkon 08-04 ABO/Rh History Check Verified Hx Blood Type Normal [facility] Comment on above: Performed By: #### 1 [id number], [id number], [id number], [id number] ####[facility] [address] [place] [address] ABSCon 08-04-2020 ABSC Gel Interp Negative Normal [facility] Comment on above: Performed By: #### 1 [id number], 96665886, [id number], [id number] ####[facility] [address] [place] [address] Blood Bank ID#on 08-04-2020 BBID# [id number] Invalid Interpretation Code [facility] Comment on above: Performed By: #### 1 [id number], [id number], [id number], [id number] ####[facility] [address] [place] [address] CBC w/Indiceson 08-04-2020 Erythrocyte distribution width (RBC) [Ratio] 14.8 % High 10.9-14.2 [facility] Comment on above: Performed By: #### 2 452771 #### [facility] [address] [place] [address] Hematocrit (Bld) [Volume fraction] 31.7 % Low 34.0-46.0 [facility] Comment on above: Performed By: #### 2 910131 #### [facility] [address] [place] [address] Hemoglobin (Bld) [Mass/Vol] 10.2 g/dL Low 12.0-16.0 [facility] Comment on above: Performed By: #### 2 542584 #### [facility] [address] [place] [address] MCH (RBC) [Entitic mass] 25.6 pg Low 27.0-34.0 [facility] Comment on above: Performed By: #### 2 149514 #### [facility] [address] [place] [address] MCHC (RBC) [Mass/Vol] 32.1 g/dL Normal 31.4-36.0 [facility] Comment on above: Performed By: #### 2 556155 #### [facility] [address] [place] [address] MCV (RBC) [Entitic vol] 79.7 fL Low 80.0-100.0 [facility] Comment on above: Performed By: #### 2 211984 #### [facility] [address] [place] [address] Platelet mean volume (Bld) [Entitic vol] 8.3 fL Normal 6.4-10.8 [facility] Comment on above: Performed By: #### 2 327028 #### [facility] [address] [place] [address] Platelets (Bld) [#/Vol] 341.0 E9/L Normal 150.0-500.0 [facility] Comment on above: Performed By: #### 2 065614 #### [facility] [address] [place] [address] RBC (Bld) [#/Vol] 4.0 E12/L Low 4.3-5.9 [facility] Comment on above: Performed By: #### 2 141343 #### [facility] [address] [place] [address] WBC corrected for nucl RBC Auto (Bld) [#/Vol] 8.2 E9/L Normal 4.0-11.0 [facility] Comment on above: Performed By: #### 2 737794 #### [facility] [address] [place] [address] Consent for Procedure/Surger yon 08-04-2020 Consent for Procedure/Surgery [id number] 9#1.00CD:127 Normal [facility] Consent for Procedure/Surgery [id number] 3#1.00CD:127 Normal [facility] Consent for Procedure/Surgery [id number] 5#1.00CD:127 Normal [facility] Consent for Treatmenton 07-19 Consent for Treatment [id number] 06 [id number] 2#1.00CD:127 Normal [facility] Consent for Treatment [id number] 06 [id number] 9#1.00CD:127 Normal [facility] Delivery Summaryon Delivery Summary Patient: MYA [...] Stable. Maternal condition: Stable. Funmilayo Escobedo MD [facility] Comment on above: Result Comment: Elec tronically Signed By: LAURA MACEDO, Funmilayo J\.br\Date and Time Signed: 08/04/20 15:29 EDT Discharge Instructionson Discharge Instructions [id number] 9#1.00CD:127 [facility] Help Me Grow Referralon 07-19 Help Me Grow Referral [id number] 4#1.00CD:127 [facility] Progress Note-Physicianon Progress Note-Physician Patient: MYA MYLES Age: 30 years Sex: Female : 1990 Associated Diagnoses: None Author: Kevin Haley Jr., DO Postoperative Information Post Operative Note: Day 2. Anesthetic utilized: Regional: Epidural. Health Status Allergies: Allergic Reactions (Selected) No Known Allergies Problem list: All Problems labor / Patient Care / Confirmed Ovarian cyst / SNOMED CT 268782994 / Confirmed Attention deficit hyperactivity disorder / SNOMED CT 6322801420 / Confirmed Obesity / ICD-9-CM 278.00 / Possible Obesity complicating , third trimester / SNOMED CT 1983954353 / Confirmed Depression during / SNOMED CT 2122109538 / Confirmed Insomnia / SNOMED CT 351620887 / Confirmed / SNOMED CT 217867883 / Confirmed Supervision of high risk in third trimester / SNOMED CT 32745321 / Confirmed Chronic fatigue syndrome / SNOMED CT 14807548 / Confirmed Resolved: / SNOMED CT 282686946 Resolved: / SNOMED CT 493655086 Canceled: Obesity complicating , first trimester / SNOMED CT 3629172724 Canceled: Obesity complicating , second trimester / SNOMED CT 4026890937 Canceled: Supervision of high risk in first trimester / SNOMED CT 08739335 Canceled: Supervision of high risk in second trimester / SNOMED CT 29907643 Physical Examination General: Alert and oriented, No acute distress. Neurologic: Normal sensory, Normal motor function, No focal deficits. Review / Management Result Review Condition: Stable. Assessment Anesthetic outcome No post-epidural complications noted.. Plan Transfer/ Discharge: Condition stable. Normal [facility] Comment on above: Result Comment: Elec [...] / Confirmed Ovarian cyst / SNOMED CT 968464773 / Confirmed Attention deficit hyperactivity disorder / SNOMED CT 1120891760 / Confirmed Obesity / ICD-9-CM 278.00 / Possible Obesity complicating , third trimester / SNOMED CT 1026167877 / Confirmed Depression during / SNOMED CT 1870057925 / Confirmed Insomnia / SNOMED CT 836343348 / Confirmed / SNOMED CT 719745448 / Confirmed Supervision of high risk in third trimester / SNOMED CT 45284025 / Confirmed Chronic fatigue syndrome / SNOMED CT 24936882 / Confirmed Resolved: / SNOMED CT 653917210 Resolved: / SNOMED CT 022451145 Canceled: Obesity complicating , first trimester / SNOMED CT 7571738493 Canceled: Obesity complicating , second trimester / SNOMED CT 8144835354 Canceled: Supervision of high risk in first trimester / SNOMED CT 53117258 Canceled: Supervision of high risk in second trimester / SNOMED CT 44077012 Review of Systems Respiratory: Negative. Cardiovascular: Negative. [...] The PCEA was started at 0942. Normal [facility] Comment on above: Result Comment: Elec tronically Signed By: Kevin Haley Jr., DO.rosey\Date and Time Signed: 08/04/20 10:50 EDT UA With Cult Reflexon 2020 Bilirubin Ql (U) Negative Normal Negative [facility] Comment on above: Order Comment: Urina ry Catheter Insertion triggered Urinalysis With Culture Reflex order by discern. Performed By: #### 2 907249, 0747913, [id number] #### [facility] [address] [place] [address] Clarity (U) CLEAR Normal Clear [facility] Comment on above: Order Comment: Urina ry Catheter Insertion triggered Urinalysis With Culture Reflex order by discern. Performed By: #### 2 533751, [id number], [id number] #### [facility] [address] [place] [address] Color (U) YELLOW Normal Yellow [facility] Comment on above: Order Comment: Urina ry Catheter Insertion triggered Urinalysis With Culture Reflex order by discern. Performed By: #### 2 923745, 9615700, [id number] #### [facility] [address] [place] [address] Crystals LM Ql (Urine sed) Present Normal [facility] Comment on above: Order Comment: Urina ry Catheter Insertion triggered Urinalysis With Culture Reflex order by discern. Performed By: #### 2 691852, 8560040, [id number] #### [facility] [address] [place] [address] Epithelial cells.squamous LM.HPF (Urine sed) [#/Area] 0-2 Normal 0-2 [facility] Comment on above: Order Comment: Urina ry Catheter Insertion triggered Urinalysis With Culture Reflex order by discern. Performed By: #### 2 462717, 0974558, [id number] #### [facility] [address] [place] [address] Glucose Test strip (U) [Mass/Vol] Negative Normal Negative [facility] Comment on above: Order Comment: Urina ry Catheter Insertion triggered Urinalysis With Culture Reflex order by discern. Performed By: #### 2 513985, 4488369, [id number] #### [facility] [address] [place] [address] Hemoglobin Ql (U) TRACE Abnormal Negative [facility] Comment on above: Order Comment: Urina ry Catheter Insertion triggered Urinalysis With Culture Reflex order by discern. Performed By: #### 2 533536, 9389963, [id number] #### [facility] [address] [place] [address] Ketones (U) [Mass/Vol] Negative Normal Negative [facility] Comment on above: Order Comment: Urina ry Catheter Insertion triggered Urinalysis With Culture Reflex order by discern. Performed By: #### 2 357087, 3157126, [id number] #### [facility] [address] [place] [address] [place].plasma/[place]. RBC (Bld) [Mass ratio] 0-3 Normal 0-3 [facility] Comment on above: Order Comment: Urina ry Catheter Insertion triggered Urinalysis With Culture Reflex order by discern. Performed By: #### 2 320370, 5973278, [id number] #### [facility] [address] [place] [address] Mucus Ql (Urine sed) TRACE Normal [facility] Comment on above: Order Comment: Urina ry Catheter Insertion triggered Urinalysis With Culture Reflex order by discern. Performed By: #### 2 626738, 2948033, [id number] #### [facility] [address] [place] [address] Nitrite Ql (U) Negative Normal Negative [facility] Comment on above: Order Comment: Urina ry Catheter Insertion triggered Urinalysis With Culture Reflex order by discern. Performed By: #### 2 093307, 0621756, [id number] #### [facility] [address] [place] [address] pH (U) 6.0 [pH] Invalid Interpretation Code 5.0-9.0 [facility] Comment on above: Order Comment: Urina ry Catheter Insertion triggered Urinalysis With Culture Reflex order by discern. Performed By: #### 2 502920, 4594904, [id number] #### [facility] [address] [place] [address] Protein (U) [Mass/Vol] Negative Normal Negative [facility] Comment on above: Order Comment: Urina ry Catheter Insertion triggered Urinalysis With Culture Reflex order by discern. Performed By: #### 2 052562, 1051284, [id number] #### [facility] [address] [place] [address] Specific gravity (U) [Rel density] 1.015 Invalid Interpretation Code 1.005-1.030 [facility] Comment on above: Order Comment: Urina ry Catheter Insertion triggered Urinalysis With Culture Reflex order by discern. Performed By: #### 2 432923, 7037673, [id number] #### [facility] [address] [place] [address] Type of Urine collection method Catheter Normal [facility] Comment on above: Order Comment: Urina ry Catheter Insertion triggered Urinalysis With Culture Reflex order by discern. Performed By: #### 2 932054, 9973427, [id number] #### [facility] [address] [place], [place] [address] Urobilinogen Qn (U) 0.2 {Henny'U}/dL Normal 0.0-1.0 [facility] Comment on above: Order Comment: Urina ry Catheter Insertion triggered Urinalysis With Culture Reflex order by discern. Performed By: #### 2 475537, 5575724, [id number] #### [facility] [address] [place] [address] WBC Auto Ql (U) Negative Normal Negative [facility] Comment on above: Order Comment: Urina ry Catheter Insertion triggered Urinalysis With Culture Reflex order by discern. Performed By: #### 2 983195, 2976466, [id number] #### [facility] [address] [place] [address] WBC LM.HPF (Urine sed) [#/Area] 0-5 Normal 0-5 [facility] Comment on above: Order Comment: Urina ry Catheter Insertion triggered Urinalysis With Culture Reflex order by discern. Performed By: #### 2 774081, [id number], [id number] #### [facility] [address] [place] [address] Vaccinationson 08-04-2020 Vaccinations [id number] 0#1.00CD:127 Normal [facility] Coding Summary.on 08-03-2020 Coding Summary. CD:[id number] Gh0bWw+PGhlYWQ+PE1FV GNmY43cmMWwkB4PO7yKZ U1NGFVKTBPTBS6BLD8xe AV4NQueF5DgumDm YaowdEIiRM71RLh4LQF5 dUoyFUmsmJ4rpKSjU5u7 WeZgWU67zT90NLwlQKWh SwF7HrUjjrafaBPw V5thIoSlnMHrAyn+PHRh YmxlIHdpZHRoPScxMDAl EaOsyDhwAL4nDi0kVDHg LWNvbGxhcHNlOiBj r5kiZLXfWVcbVJ1ttEjm X6JhoVT3KYLta4t7Yr62 dHI+GTUlLUF9oVqsURcp b633QcKgf8urEHI6 sABwWSayECY4L89wp2B1 FCIbNBGfNJY7cOM7vE5z gKavnlpaT0OlsUCxPwH1 LSR2jMJpuM4gcYfg tfmsdS3iKyl+A04ZGP0Y TTPXLL2SNij8V3QsOvyt dHI+LG88KSWoPR88rCTs iVRdi8cjrQv2GxCb JSGyLOL4iOuxGKbbv3Td EHVsJ37wdDExx5Q0SWFh iNtpjGAgYqZiqFZ2xQ6p IFnfxqzua4vtbzjt Wtqru6ssyd71cC92S76g ZYrjFFKaZYQ9TZUaZAIc oDkaxu8buZ3nBm6+IDxj z7kij8kpqZn0LlSh RKDktqYolGzrLSQ0b6Ze Tc30P3WwcOczp8JqSgo7 uy14kEUvf4L7pQL7HGsv RHYikF4aMAjuAhQ7 ZDJnKqMngV86jHYjXQbk Zv2gzQtmfCmbBZ4lNOPj xyokUUEjwA7gPZNcqVVs rWlvUU9pGUEqfved y499OuThPRX6UNKajQJj B7CofW5eGcDzVCUtQYJq C9FtyHVeNPfjI019FLwg QeG7KKYzxzKoB2Rj HSBrmUzqBrW8u2L2Ru7T j5NllowyZUB0RMgdTBI8 HnH1JaBeDeJ5B5AmBaf9 RBRraUsvPM1bH7Hn SPMkebesloabaME2IRDz QYZxqT95uUMcUCnjUj1a o1M4b865VMEyLBUtlW42 Zw0qaSffMGXdqSAE uZ2ujrwyd1nvfjuuAxUz QOAhDQn7ZVz7DKUstRqq DyXfWSG3MqT7XAM5tPXk kJ5dcVckfzzdhM5e Oyc+G13azB2sIGZ7VVR9 umfgZMPpmnVpSZ94UT85 U2VlJfmxrCUlyLF+PGRp pyGlrBeoXY5hUpCb e1bgb2XrCQvaL1AgOIAc GZakRch6KWLnBWL3nIC5 wS5kMWUqJGexx9V0vJQ9 M6TcgaCwbn0zg1fn XUXlGAocL21gvRKoh3I3 YEKddFB8VVQcgWsuJdOq vE67Izo+AFKvhKopb0Tk Ypnmp3axl6ottMl3 IjMwJSIgdmFsaWduPSJ0 r5VhZl62D28hYZzjAPOm MVRjIAEuDRDmpXbqjf9b gS4lPr7+PGNvbCB3 sJP1hM0uGKGlFzW1JUrj H504YkBfuPRvNzgwb3lo z2wimNf5LfYhYTDnxwJq wIkjDDO2c9EjWu99 C31bKNobYYCeVVZzYCZx OFHzzQamkv2xsY0cBr1+ WG2av5ddes94sB48xQQ+ OBAdAXT5wFddVUhe UGScrX6fMXmcWjQ1CWYb EsVeyG27pRMeKZquLm3o xElnjMgmGU9mWTRcnsrx u876AvPux2yhTSKj pPTnFXlcUZS9H60xv5V2 TPPnEKHeVKX4hFN6pG1z bGlnbjogbGVmdDsgdmVy kDioSWmkXYvyT327 IHRvcDsnPlBhdGllbnQg JdSiZAs0J7IzHin2ELUr jRoeNR3wvOKnQJgyLa2s aQbpqXmxUN7qGVNz qfslk985MaGvv5zbHPPz jLRxZIciXMQ8D18po0Z9 EBEfQRFuXNH2hKS4vJ6a bGlnbjogbGVmdDsg oxKaeQsxXJltUIzvA135 IHRvcDsnPkJpcnRoIERh cDB5RV81IY05nMIad6J5 mSX3Z7NbIBIaaxls tiuqwIZ2LJYvUHYypD22 Rt5qzQosOn7iFWUjJWN7 QPEjdBWnY4HnyK4rHzQf NKWfYPJeC1MybWIa ZTeuI574EKhoWoC5NVKa epDxZ5EoEMBioRpxMrE3 a6B1Nl4KS6R8MG25FE91 hVDqs6U7fJP5O2Kl XXBsyarvockopIP5SZFc BFUbtL65Wl6izJfpBg5r YJPxYBK5HBKgcDQdL4Jx xT2zDvLzHUWvNODy H2JfgEPgIWhnD318RCum DbW5TWPrsxKlA0QwGFJu gOkpLdF7j0U0Mf2VALa1 UJ96SI67qKLsx8L0 yVO9A3RpYIBkcmryfwax hGF0KLBbZIKipJ99Dg5o yCysTz6bNHPxGJC4EULz cRWqV9KtiH3wUhCi OAUsAHQxP0QuwWTgMGlc I539MXbsYnZ3ATXxilLw U8DhDRQmuNviJnB0h8K1 Mg3LKMPcAW49CIQ9 rNF0MU39NQ62N5XiRsfv dGFibGU+PHRhYmxlIHdp ZHRoPScxMDAlJyBzdHls AE3iOs7xIFSmUFMt eEnzgFFfDdBec3daXVPg NOzhGM0ocNuuX4MlhDQ4 USCie3r2Hv12A10pF7Yi dXA+ZNOqpPY0ePI0 xS3qWsSfYnI7VKitK323 UuBhgKDaUerzy5rob2uw oZe8MbN8POBhszHmuIcd NZT9x0YmFr22G14t IHdpZHRoPSIxNSUiIHZh hPepht3jdG7nGh2+PGNv eIM5iAE9sN9nWtStLaQ0 FGiqT503GwNdvIAj Biavk4xuq5ocpHf4DaNz VKAczoZaaPbwTHP7t5Fi Fw23W8OfjVrjd1RtSye9 ar80uQWum2R1iXU7 Q3RuDLJdjprilUZxdArc OC1dXREfnijtKUDwzH4q LJOiM6j4NgRqYpY4VEzb P3NbdtU3AQHntFYm DHmbTCK1Z88an6G3NPFc TOLtCHP9sVM5jZ6xxSki bjogbGVmdDsgdmVydGlj EEtsRRwcI215WXUh mPhgPAWqbQ7fFVCdtGYf eXuoEO3fKWIxbwqkAzDU QupOFw2pXHKWByMLH4St TDwvdGQ+PHRkIHN0 kCszSQgfCUXzhG9eVEUl R2o2SxHbKeU8BLcgW7Bj BMTvsyouJf82kP7bLkIw UqB2HLvxB0PcrtX0 KIOrfJEhIXdbCJO3R45d t9Y4OKKoVCIcBHL3zAJ1 xM6kdYuozdwjjPCknKbq dmVydGljYWwtYWxp R016VKYozAghMyE9UsTy DpH0UPD0O2FjDgn2IVId sWccLW4nbMIiNAlmCk8a dXfbkEwjBU3lKRFx mihhMXZvdR6hBSIkyHZl pUnvEW8nWWNqkxxhi655 AgHbZGB6WHWvcPQlS1Ej vB1rXdWdIYXaYSMo L0NnyBHfHKdkP726KDda VmV2PRAwhaCvV2UaRUBz yGnoYsT8v5Y5Cw2rJLFV ZWFyczwvdGQ+PHRk SEU2pBtaSLxjYAShmC8h PQJqO2f9VgJrFxP8NYex N6IaEFLuhcezQm28gZ7l MqOeXrH9TMkdI5Qu uhF0ZUBcuFSeXVbzGQR2 X98vf3E4KYYfDTBzDQB3 fDW0cG0lgYfztutanPFg dDsgdmVydGljYWwt PNppV262RXMasEslJdVa bWFsZTwvdGQ+PHRkIHN0 xArgWJpjXVPmiF1pNLCe J9i2SpDrNqA2UPzo J5UqUEFftrbtLl80gX0c YaQkBqH8VMwxO7VoqsH6 UCBseXMcWLvxRCC4X21w w9D5SQDxOFQhWIB0 pUO4aM0qzXbnvkaarJOb dDsgdmVydGljYWwtYWxp R286NUAkzSikSg7VBHVf aWFnZTwvdGQ+PC90 zk41Y1MvPbugFhk5XNFi JKL8bUN4gK9eUUHeWBsi b9B7pSJ1L0TczlXngj7i v4jrKPDoVZqeZ17o cVWpg1P5CLEfcXJ2IFVx aIaiQqJkpU85Ghi+PGNv iTmsw3UkQbdcb6qoi9xh fIh7JrYoDQYhxmLd bCaoWIC5x3NaZi23J22b IHdpZHRoPSIzMCUiIHZh cMxujo7ncF0rOv1+PGNv eYQ0iHA6nP6wXsXj LgJ4ARkdZ281CvIxqQSr Cwurg2zkn3tbbOa2QyNy GCThvoIviSvcSWW2k6Cb Sw79D9MtzIrma8Ef Rts8hy74bKXtq8H4uFZ1 Y5JaVBUuxtlpbAPnnBmd GB2zDNLnbivuZGAyeK8x YGQfH1c8UwUqJoU6 QFroS1MooiG8ODChhULz GYNuxUVBnU9fhdhgp0wk ykupBtSoQRLzKQf1WAl9 LWFsaWduOiBsZWZ0 CvQ7HOA1hSEeuW2cwLfu fhafaW6kDed+SPq1x6hf uDUvWB4pwZR5SB34RY48 kQSjn2R6iTC0V0Ha RCObwthpvmoanWN8NSRx MTYptZ06Cp4lhPqeMt0s YIJsOTG8ACTtsSLuG9Ap uV4rDjXzDIXwINQl C3QyhOCoPCygU831MXsg DtR7KZUrmkNrU1LtOGTz oGsjSwJ1g8I1Ou3CEB12 SK35VX52kXHeo6X6 uPA3G4YfEVWclssxtubs rML4ZWCwKSFnmN77Fg5j wVjeKr1pJHLuKXG6PFJx aSWtI5BncZ7iJxNt ZBLlSCKnI3JliZLmBVwy W766MPcxLxS4NPLmpdOy O0SaUZWttHfaVzP8r1H6 Pb5SAq57OH49SX65 hNGab3D2tOZ8K8TgDQDd zvhcjxzlpDC6YWQeDKZs eZ43Dg6jkJbtSz3bFOKi RPN0BQYerZZtR1Nq bX4xMhNzEUXjFKJbB8Ur gHDiRCokE432AMhqQrA5 XTKvhnEwI0QxMIEyeMdi YnM8h6O8Fe7RLAly hxa1N7QsDlivkNQ+PC90 NTCkNK85yPPajEUrt4nj mCs8DqLfRQBiWIQ2mSgd IQsuk0RyRRTbA40s bGFw (more content not included)... Normal [facility] Ambulatory Clinical Summaryo n 08-02-2020 Ambulatory Clinical Summary {[id number]}CD:[id number] Normal [facility] Insurance Correspondenceon 0 08-02-2020 Insurance Correspondence [id number] #1.00CD:127 [facility] Insurance Correspondence Off iceon 08-02-2020 Insurance Correspondence Office [id number] 1#1.00CD:127 [facility] Insurance Correspondence Office [id number] 1#1.00CD:127 Normal [facility] Nursing Assessmenton 021 Nursing Assessment [id number] 4#1.00CD:127 Normal [facility] Obstetrics Office/Clinic Not jasmine 08-02-2020 Obstetrics Office/Clinic Note Chief Complaint OB 38w 5d, baby moving, occ. [place], swelling bilat. feet, woke up with Migrain in middle of night Obstetric History History (1,0,0,2) # 1 Baby 1 Outcome Date: 2008 Outcome: Live Outcome or Result: Vaginal Gender: Female Gest Age: 41 weeks Wt: 3232 g Hospital: [facility] Labor: -- Child's Name: -- Baby's Father: -- # 2 Baby 1 Outcome Date: 05/26/2013 Outcome: Live Outcome or Result: Vaginal Gender: Male Gest Age: 39 weeks 3 days Wt: 3390 g Hospital: -- [facility] Labor: 5 hr 55 min Child's Name: [...] trimester) Ordered: Office Visit Level 4 Est 74901 TH 2. Obesity complicating , third trimester (O99.213: Obesity complicating , third trimester) Ordered: Office Visit Level 4 Est 17429 TH 3. Depression during (O99.340: Other mental disorders complicating , unspecified trimester) Ordered: Office Visit Level 4 Est 60271 TH 4. 38 weeks gestation of (Z3A.38: 38 weeks gestation of ) Ordered: Office Visit Level 4 Est 60448 TH Follow-up With When Contact Information Funmilayo ESCOBEDO MD In [address] [place] [address]- Additional Instructions: Problem List/Past Medical History Ongoing Attention deficit hyperactivity disorder Chronic fatigue syndrome Depression during Insomnia Obesity complicating , third trimester Ovarian cyst Supervision of high risk in third trimester Historical Medications Multivitamins, 1 tab(s), Oral, Daily Allergies No Known Allergies Social History Alcohol - Denies Alcohol Use, 11/21/2009 DENIES, 04/14/2020 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 2019 [employer] Normal [facility] Discharge Instructionson Discharge Instructions [id number] #1.00CD:127 Normal [facility] Inpatient Clinical Summaryon 07-31-2020 Inpatient Clinical Summary [address] [address] Clinical Summary Person Information Name: MYA MYLES [place] Age: 30 Years : 1990 Sex: Female PCP: Chao Blackwell III, DO Marital Status: Single Race: White Ethnicity: Non- or Language: Trinidadian Visit Id: Visit Reason: Speciality: Acuity: Obs Enc Type: OB Triage Med Service: Obstetrics Arrival: 07/30/2020 21:16:34 Discharge: 07/30/2020 22:58:00 Dispo Type: Home (Routine DC) Address: [address] [place] [address] [address] [place] [id number] Provider Notes: Diagnosis: Problems Active Insomnia Chronic [...] up: With: Address: When: Funmilayo ESCOBEDO [address] [place] [address] [employer] (1) In 3 days 08/02/2020 Comments: Keep [...] Type Location Start Finish State WH SOV [facility] 08/02/2020 4:30 PM 08/02/2020 4:45 PM Confirmed WH BI[facility]O [facility] 09/15/2020 9:00 AM 09/15/2020 9:15 AM Confirmed Patient Education Information: Normal [facility] Inpatient Patient Summaryon 07-31-2020 Inpatient Patient Summary [address] [address] Patient Discharge Instructions PERSON INFORMATION [...] up: With: Address: When: [place] [address] Business (1) In 3 days [...] Leaflets: You may receive a survey from [employer] asking you to rate your care experience. Your feedback is important and will help us understand what we do well and how we can improve the quality of care we provide to you, your loved ones and our community. It?s an honor to serve you. Thank you for choosing [facility] Consent for Treatmenton 07-19 Consent for Treatment [id number] 0#1.00CD:127 [facility] Consent for Treatment [id number] 8#1.00CD:127 [facility] Insurance Correspondenceon 0 07-29-2020 Insurance Correspondence [id number] 41#1.00CD:127 [facility] Insurance Correspondence Off iceon 07-29-2020 Insurance Correspondence Office [id number] 5#1.00CD:127 [facility] Nursing Assessmenton 021 Nursing Assessment [id number] 1#1.00CD:127 [facility] Ambulatory Clinical Summaryo n 07-28-2020 Ambulatory Clinical Summary {[id number] [id number]}CD:[id number] [facility] Obstetrics Office/Clinic Not jasmine 07-28-2020 Obstetrics Office/Clinic Note Chief Complaint OB visit 38 weeks . Obstetric History History (1,0,0,2) # 1 Baby 1 Outcome Date: 2008 Outcome: Live Outcome or Result: Vaginal Gender: Female Gest Age: 41 weeks Wt: 3232 g Hospital: [facility] Labor: -- Child's Name: -- Baby's [...] trimester) Ordered: Office Visit Level 3 Est 76204 TH 2. Supervision of high risk in third trimester (O09.93: Supervision of high risk , unspecified, third trimester) Follow up in 1 wk. Ordered: Office Visit Level 3 Est 27374 TH 3. 38 weeks gestation of (Z3A.38: 38 weeks gestation of ) Ordered: Office Visit Level 3 Est 68007 TH Follow-up With When Contact Information [facility] In [address] [place] [address]- Additional Instructions: Problem List/Past Medical History Ongoing Attention deficit hyperactivity disorder Chronic fatigue syndrome Depression during Insomnia Obesity complicating , third trimester Ovarian cyst Supervision of high risk in third trimester Historical Medications Multivitamins, 1 tab(s), Oral, Daily Allergies No Known Allergies Social History Alcohol - Denies Alcohol Use, 11/21/2009 DENIES, 04/14/2020 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 ? 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 ? 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 Health and safety ? Rectal thermometer. [...] ? Consumer Product Safety Commission: www.cpsc.gov ? [place] [employer]: www.healthychildren. org ? Safe [...] 01/17/2009 Document Revised: 01/17/2018 Document Reviewed: 12/25/2017 [employer] Patient Education ? 2019 [employer] [facility] Coding Summary.on 07-27-2020 Coding Summary. CD:[id number] Gh0bWw+PGhlYWQ+PE1FV CPbM59kzEHdfN1AO9qFC X0NFVOOWINTWC2YMV5by DR0QBenW3WynqSm GkcblPFnOD98VUj6OHA8 dZqwVUekeZ6fnICaJ4y3 BuYbEW43kZ17BWkeHKTi QiN5PtFnkewzvCBr R8lvUsWbzNTbJod+PHRh YmxlIHdpZHRoPScxMDAl PtNuuDohLQ0dTm2qPKXl LWNvbGxhcHNlOiBj h8hlVFBoMSlbPM3taEpo B0CwuRU6NPZee7t4Do10 dHI+KKPhSUW0uAvpRGwb a077OcIfp2lpMTP1 nCAcEYuzOXR1V02kl7W1 KPUsLYYpJWM7eXT4kD1o fRclwcfxD2LgqBUeSjT6 LXS5pLOlxG0ksSkx uwesvU7cVtv+Z67IKL2P DWHWHM4TJze3Z1GzFdid dHI+EX70LVJwHK30iIKq wGWgq1cfwVb0SvLa FTKqQJH6nAtdTGblo3Xl BBUtN91jcFXgz5E5FOGh iWqwoITdMqCshNR0nF1j OVtbadmro2obwgjw Srboy3spjc82kJ14M27k EBkmXODcSGX5PBByRTLu uWgymb1mmV8yZg2+IDxj n5vec8zynNj7VjZa XVWcnyPhxNmsGKR0y6Bo Cs53X1ZedFsyg1AcRhd0 mz26oAWuo6H5mFR5KPtl XVAntQ0kAXjyVkN2 WLFwEaPzyV34lJKuVNbx Sv2lxUwqfXfkXS3zTMFv mrbrBXGebT9gEDQzcUEk fPynHV1lMTDmwxtc r136HzSvSTT2UVRdbQZv K8CmeH1iCaHfGTQxEBEd E6RtnSPsYZycM292AVyz QxW5BHLcagEaQ3Dz LARomMsfHlF4z0T9Dr6B y0NozvrdEUT7KBvxTSS8 BnI5FwClPvT1N0NbCcm4 CPMwgXzsRO0pS0Zn DUPmixbnnnvneKC7GVAy QILmvI62rABaTVxuJu7t h6K9e066MTPvDHZcuS65 Uj3jjAjcHDZohZKQ dE6xnvrlo4xciwhvGjCp QCPpXRa8YIm5IYYtvMlf IbYzEFQ5KoF2WMG3fXTj hU9veWuwancbcG8c Oyc+O15skP8rPJB3XRJ2 prwfSJQpkqCyAK38KM05 C3ChPvtsjSTmoOP+PGRp ghFdgWndGM0jKsQa y0tfa8LxARisD5DhZMXr INdpGbk8MWOaUSB1dBN4 gK6cUVPjKGdhv4X9mYS6 Z6JapjGikx4ug1yf IAYxJLdjO90viBPzw4E1 HGXzzMN5VORlpYdkCaRd zY13Ukw+AHPimKhqb6Gd Saxal6gsc9gtkCd0 IjMwJSIgdmFsaWduPSJ0 v0GrEe04X58hQYymPOHl CTZhHVScIXLqvYznpx6c sT0aTt9+PGNvbCB3 pVE1oC3vXYPfOuG6YOhj F695SiZoqITuOlrhy3qt q0phwPe4OnLpCEVpciDk fClaPZY7p3IoHd27 V29qGVftUULrOVIoQZLy CWAroVymkf3stS4gId4+ SQ2li7jtug45bB01qUV+ CISsBNB3xApgKMsh NZUcjP7uCUanQhH4SMQc QoMceZ27uPVaMZwoHd6t dDjbwZhvCQ6tHPPctron b051UdRvs3hxYZHu iOIlEAgtHSN4K70sd6V1 RCVvOERiIST3gCG6jF4d bGlnbjogbGVmdDsgdmVy jUriHOtfPPmzO475 IHRvcDsnPlBhdGllbnQg KbTtBEf3S6PdDgd8KEHw iDscDI8sfCAyPJdbCt5c rXdokXgxAY6oDXJj uljjq870ZjQdh1ooOXFv hMOqICmbTDC2G59vl1Q3 JOWpEUReJTM2lFE4hF9i bGlnbjogbGVmdDsg ovDshNhsYWxuTLquI486 IHRvcDsnPkJpcnRoIERh nXX9ZC89MR16eNZye8Z2 uBI1G2YpTLBtjojc yxfhvVP6YUFfUEJoiO87 Jk8whFdwNs3gWTWpOUX9 GABjrRGyS2MktL5zEwTq OOWsZTNjE3AmcKTp YVdrL515VVbaGvA2OIFm siWaU3GsLIYoeVrlBkO1 o0U5Yw2CZ5J6PB18LW25 hNTtq7T3mQQ5R6Bu ZOTgjdujbylcnXZ0TFDo HDMaqJ53Pw4mpRodWm4n WACtDDN1CJPfaDWuO6Ua sP0iDzTtZWCkUSYf V9MifJPyMMsaA191GPqx DiK4XPGibwLoI3LmBCNc yJorQbP3u6C9Ry3GYDv2 ZG45VI66tWQhn6L0 dHE5J1TaCGNcjwxnzahk jGC7EPQvSSCyiU56Lq0g zEndYb2hHPLgNDA2IGSn sHZkP3GlxM8fRtEz MQImWFKjD4OtsCTpODsd R951ONcuJmY7QRSlwjDn Z4OdJGJsvHgjRzU5h7G5 Mg3TRMWpSO75AVT3 jWH5EY12TN39Q3MaTkqr dGFibGU+PHRhYmxlIHdp ZHRoPScxMDAlJyBzdHls LJ2dGp8qONQmSTMr mOaynNMiZtKca6gzHUTz XFxxBS0szFecW7KecCT4 AJPlp9l2Oj78P17eE9Av dXA+JYKkiHJ7pVH4 nZ6zGiNnKyP0OVwyW072 PtWybAQqUmuqk6bfr9ey wUc1CwO9ANNteuQvmOjc GGF9l1JvDa81X80v IHdpZHRoPSIxNSUiIHZh gMhduy7ksC4fRb6+PGNv fTH8eYZ4uG8yQzIxNzP3 VYrqD749PkVrdQEt Xlder2dup7wohAc9IoKl WDPauvEfjLcjANO3i1On Wu15E7PzbDfiu6QxJcv9 sn83bFTjw9A7zXV8 H5SoJTAnifmqfUKfpGbr DS4kNOWxbzwyRWHlhB8o GDNiB2e0DeReXmV6QBcm T2TxotI2JXJugQCw KShmNCS7X20uk4P5FJOw EWKyUUN9wEY2zD9aiBoq bjogbGVmdDsgdmVydGlj JJvwDVtfT717NIEt dDdzTVJguI8wCDWyiXZj jGdwAC3bVZElwiwsTyXL RdcWBx3lSNLHCzGSA1Nn TDwvdGQ+PHRkIHN0 zIrwLNoqPSBnkI3lUUBl C3v0RaDmVlS7JIitS6Ty EJXylrfuAx82pS3yUpMc KfG8BSdyS1PwrzN2 ZDXroKTaJQbdCFF7S56j v4V2OQIuZUMyOAY1dMH0 cT9myUreukntmMRgtRqp dmVydGljYWwtYWxp A763ZKDmaMtpCwI5WaLi EzL0TQS6Y1DzMak6HKFp vZkiAI1uxMEkHJyuOq1t gGurfButLR9wPXCf mkekUINniX2cPQBpxMRk eJaeOQ1zIMDwjwpkz643 QwMcGHM2PUTpgRPpG1Hm jT4qMgLtOOYnUULk G6UslTKxCIxtR222OTxd WfM4FTSemcWcP0EpEWEc qPtrFdY6p2G7Nl4sXLJX ZWFyczwvdGQ+PHRk FYX8hAcdCJbvHOTllB0s BZCzV5e2WmArYiS1IWhj B9JzJVAjvmfwGa27qW7t SyXhUoD0JEhsH8Nb bdC9EFTjkWSwOXuePEC9 W28lx2R2CZArILNfBGV3 lZV9eK7ryKnxrtlqsAIk dDsgdmVydGljYWwt UOtpF912GWGltSonIiIh bWFsZTwvdGQ+PHRkIHN0 aYdzNWjjHIChsY0gUOGo Z2o0VeZkTuN7TQlp W5BqXFMvzvzcCk80wX8t SlOkXkR7RHleH2EdwlM8 EVYdiEErGLwpINI2O28d t3T5YAApIQNbJKT3 pWS4eW2ntPslzuofgGJd dDsgdmVydGljYWwtYWxp Y260AYAjmYzdVs0EUUTo aWFnZTwvdGQ+PC90 kg06R5OmSdhzJnv0LXCj XKF6cQW9qK3sIYFiLVev b4W0aRE9D2QmobXigl4p w5kjREHqCCxcT33q fTBda5A5HQHfbYS6WUKk uMluMjBeyP22Xfi+PGNv qNnox7VeOwobx7xyg7yi nOy3CvBzSXYaohEt dPitWMV1c5QfZd88E28f IHdpZHRoPSIzMCUiIHZh iPzorg3shW6xGy9+PGNv vFM1pPD5qQ9aQlTc NaA1VKmzQ675WfAkiMCh Zpqnc4qcf3yarPx0OyPu JZDnubEoiZbaBSR7c7Mi Xs64U6CteUpyg2Gj Lcp4jr78vWPkx5O8aEQ9 Q6WbXHYuvjmycJJeyNwv GM5fNPGudwrxIZPkgA8f JWCvM9o2GoXkGwB1 LCqnZ2UdtwH3HYWxdIPd GZSqmLBHkR6nkbmoo0xl cvqmOmImUBLhRKz9LWw2 LWFsaWduOiBsZWZ0 JmH7SPT4sASwgE3ihFfv mdilkR7eUse+SMp9x7no ySIbRK1bbYR4EI13OQ28 vQFxj2B3rKL8L1Ik WEKypmauquhgxGQ8EYPy URNwwY16Do0tfQsxKu1g TDAlSQW9FSGlsQChG8Lm xB8mHcBdDNThGQBd J9GciNUyBMohD730NTzl ZnS1UMIjyeMpT9BoZNQj jWqqMuB1h2H7Gc1SUR43 FJ84GS43wDZrb4K8 lGN1W7VyDCLuptrsarui xEW8MHEeTFSwfD21Xe8o cJcaPp3vTHXeWRP1QZHm sWKhL2UtbZ3nWuZe LHBvNZLxH6KgiYLrIFyv Y608KRuqPpN3EFTuglSu D3EwHGOopVqoDwZ1f8U0 Ms6TAa99MP07UL76 pZHyx0O9aKW4U9KmFPTy ltmqnlvkpZL2AQCwWFBt mV80Sw5phHadMi4lDKTv ENW5PYLzwAWnU2Er mT4oQnQlZPAfEXDvX6Le lBOhITwwG263FPxsTyR2 RUWgokUtD2RcMRDomOfc PpN1h6K2Bk8NDRum bih4W2IpUkqmsJX+PC90 ZHGzCB58dHLqhNRxe3aq zFz0SgMqWZPxZMU6xShh AHmfn1NoSQQeV72q bGFw (more content not included)... Normal [facility] Consent for Treatmenton Consent for Treatment [id number] #1.00CD:127 [facility] Discharge Instructionson Discharge Instructions [id number]#1.00CD:127 [facility] Comment on above: Other Comment: incco rrect title Discharge Instructions [id number] 67#1.00CD:127 [facility] Inpatient Clinical Summaryon 07-26-2020 Inpatient Clinical Summary [address] [address] Clinical Summary Person Information Name: MYA MYLES [facility] Age: 30 Years : 1990 Sex: Female PCP: Chao Blackwell III, DO Marital Status: Single Race: White Ethnicity: Non- or Language: Trinidadian Visit Id: Visit Reason: CONTRACTIONS Speciality: Acuity: Enc Type: OB Triage Med Service: Obstetrics Arrival: 07/26/2020 14:59:40 Discharge: 07/26/2020 16:40:00 Dispo Type: Home (Routine DC) Address: [address] [place] [address] [address] [place] [id number] Provider Notes: Diagnosis: Problems Active Insomnia Chronic [...] up: With: Address: When: Funmilayo ESCOBEDO [address] [place] [address] [employer] (1) Within 1 week Comments: Call for any problems. Call for fever > 100.5 F Return for contractions closer, longer, and harder Return for decreased movement Return if ruptured membranes or vaginal bleeding Type Location Start Finish State WH SOV [facility] 07/27/2020 2:45 PM 07/27/2020 3:00 PM Confirmed WH SOV [facility] 08/02/2020 4:30 PM 08/02/2020 4:45 PM Confirmed WH BIENVENIDO [facility] 09/15/2020 9:00 AM 09/15/2020 9:15 AM Confirmed Patient Education Information: Normal [facility] Inpatient Patient Summaryon 07-26-2020 Inpatient Patient Summary [address] [address] Patient Discharge Instructions PERSON INFORMATION [...] Follow up: With: Address: When: Funmilayo [place] [place] [address] Business (1) Within 1 week [...] Type Location Start Finish State WH SOV [facility] 07/27/2020 2:45 PM 07/27/2020 3:00 PM Confirmed WH SOV [facility] 08/02/2020 4:30 PM 08/02/2020 4:45 PM Confirmed WH BIENVEN[place] 09/15/2020 9:00 AM 09/15/2020 9:15 AM [...] to serve you. Thank you for choosing [facility] Normal [facility] UA With Cult Reflexon 2020 Bacteria LM Ql (Urine sed) TRACE Normal Trace [facility] Comment on above: Performed By: #### 2 021401, [id number], [id number] #### [facility] [address] [facility] [place] [address] Bilirubin Ql (U) Negative Normal Negative [facility] Comment on above: Performed By: #### 2 424510, [id number], [id number] #### [facility] [address] [facility] [place] [address] Clarity (U) CLEAR Normal Clear [facility] Comment on above: Performed By: #### 2 135794, [id number], [id number] #### [facility] [address] [facility] [place] [address] Color (U) YELLOW Normal Yellow [facility] Comment on above: Performed By: #### 2 565974, 6798106, [id number] #### [facility] [address] [facility] [place] [address] Epithelial cells.squamous LM.HPF (Urine sed) [#/Area] 5-8 Normal 0-2 [facility] Comment on above: Performed By: #### 2 807243, 5186085, [id number] #### [facility] [address] [place] [address] Glucose Test strip (U) [Mass/Vol] Negative Normal Negative [facility] Comment on above: Performed By: #### 2 234165, 9571924, [id number] #### [facility] [address] [facility] [place] [address] Hemoglobin Ql (U) TRACE Abnormal Negative [facility] Comment on above: Performed By: #### 2 176564, 3457567, [id number] #### [facility] [address] [facility] [place] [address] Ketones (U) [Mass/Vol] TRACE Abnormal Negative [facility] Comment on above: Performed By: #### 2 135784, 1984668, [id number] #### [facility] [address] [place] [address] [place].plasma/[place]. RBC (Bld) [Mass ratio] 0-3 Normal 0-3 [facility] Comment on above: Performed By: #### 2 154136, 6494371, [id number] #### [facility] [address] [place] [address] Nitrite Ql (U) Negative Normal [facility] Comment on above: Performed By: #### 2 778949, 5068554, [id number] #### [facility] [address] [place] [address] pH (U) 6.0 [pH] Invalid Interpretation Code 5.0-9.0 [facility] Comment on above: Performed By: #### 2 265942, 2735919, [id number] #### [facility] [address] [place] [address] Protein (U) [Mass/Vol] Negative Normal Negative [facility] Comment on above: Performed By: #### 2 685650, 4842518, [id number] #### [facility] [address] [place] [address] Specific gravity (U) [Rel density] 1.020 Invalid Interpretation Code 1.005-1.030 [facility] Comment on above: Performed By: #### 2 066523, 7306292, [id number] #### [facility] [address] [place] [address] Type of Urine collection method Clean Catch Normal [facility] Comment on above: Performed By: #### 2 483884, 6723619, [id number] #### [facility] [address] [place] [address] Urobilinogen Qn (U) 0.2 {Henny'U}/dL Normal 0.0-1.0 [facility] Comment on above: Performed By: #### 2 775979, 7768808, [id number] #### [facility] [address] [place] [address] WBC Auto Ql (U) TRACE Abnormal Negative [facility] Comment on above: Performed By: #### 2 541424, 6616330, [id number] #### [facility] [address] [place] [address] WBC LM.HPF (Urine sed) [#/Area] 0-5 Normal 0-5 [facility] Comment on above: Performed By: #### 2 189683, 1310945, [id number] #### [facility] [address] [place] [address] Yeast LM Ql (Urine sed) TRACE Normal F [facility] Comment on above: Performed By: #### 2 534756, 5847284, [id number] #### [facility] [address] [place] [address] [place] 07-22-2020 Consent [id number] #1.00CD:127 Normal [facility] Consent for Procedure/Surger yon 07-22-2020 Consent for Procedure/Surgery [id number] #1.00CD:127 Normal [facility] US Follow Upon US Follow Up Exam Date/Time: 07/21/2020 16:30 EDT Reason for Exam: Size - measuring standard growth/amniotic fluid volume;growth q4w - anatomy completed with [facility] Report IMPRESSION: SINGLE LIVE INTRAUTERINE CORRESPONDING TO [...] Positioning Vertex Amniotic Fluid Volume Normal Normal [facility] Ambulatory Clinical Summaryo n 07-21-2020 Ambulatory Clinical Summary {[id number]}CD:[id number] Normal [facility] Ambulatory Clinical Summary {[id number]}CD:[id number] Normal [facility] Obstetrics Office/Clinic Not jasmine 07-21-2020 Obstetrics Office/Clinic Note Chief Complaint OB 37w, baby moving, swelling fingers and feet goes down with rest and elevating them Obstetric History History (1,0,0,2) # 1 Baby 1 Outcome Date: 2008 Outcome: Live Outcome or Result: Vaginal Gender: Female Gest Age: 41 weeks Wt: 3232 g Hospital: [facility] Labor: -- Child's Name: -- Baby's [...] trimester) Ordered: Office Visit Level 4 Est 98174 TH 2. Obesity complicating , third trimester (O99.213: Obesity complicating , third trimester) Ordered: Office Visit Level 4 Est 89033 3. Depression during (O99.340: Other mental disorders complicating , unspecified trimester) Ordered: Office Visit Level 4 Est 99717 4. 37 weeks gestation of (Z3A.37: 37 weeks gestation of ) Ordered: Office Visit Level 4 Est 14985 TH Orders: metronidazole, 500 mg = 1 tab(s), Oral, q12hr, X 7 day(s), # 14 tab(s), Refills(s) 0, Pharmacy: [id number], 158, cm, 07/07/20 20:05:00 EDT, Height/Length Dosing, 88.3, kg, 07/14/20 16:41:00 EDT, Weight Dosing Follow-up With When Contact Information Funmilayo ESCOBEDO MD In 1 week [address] [place] [address]- Additional Instructions: Problem List/Past Medical [...] Protein Urine Dipstick: Negative (07/21/20 16:41:00) Normal [facility] Comment on above: Result Comment: Elec [...] Reviewed: 07/07/2019 Elsevier Patient Education ? 2019 [employer] [facility] Provider Letteron 07-21-2020 Provider Letter July 21, 2020 To Whom It May Concern, Mya Myles is scheduled to be induced on 08/04/20. [employer] [address] [facility] Ambulatory Clinical Summaryo n 07-14-2020 Ambulatory Clinical Summary {[id number]}CD:[id number] [facility] Obstetrics Office/Clinic Not jasmine 07-14-2020 Obstetrics Office/Clinic Note Chief Complaint OB 36w, baby moving, [place] in morning, feels like underwear are wet and has to shower frequently. Contractions all night and not able to sleep Obstetric History History (1,0,0,2) # 1 Baby 1 Outcome Date: 2008 Outcome: Live Outcome or Result: Vaginal Gender: Female Gest Age: 41 weeks Wt: 3232 g Hospital: [facility] Labor: -- Child's Name: -- Baby's [...] Test Q0114 Office Visit Level 4 Est 77311 NC 2. Obesity complicating , third trimester (O99.213: Obesity complicating , third trimester) Ordered: Fern Test Q0114 Office Visit Level 4 Est 54394 NC 3. Depression during (O99.340: Other mental disorders complicating , unspecified trimester) Ordered: Fern Test Q0114 Office Visit Level 4 Est 70674 NC 4. 36 weeks gestation of (Z3A.36: 36 weeks gestation of ) Ordered: Fern Test Q0114 Office Visit Level 4 Est 81772 NC 5. Bacterial vaginosis (N76.0: Acute vaginitis) Ordered: Fern Test Q0114 Office Visit Level 4 Est 64269 NC Orders: metronidazole, 500 mg = 1 tab(s), Oral, q12hr, X 7 day(s), # 14 tab(s), Refills(s) 0, Pharmacy: [id number], 158, cm, 07/07/20 20:05:00 EDT, Height/Length Dosing, 88.3, kg, 07/14/20 16:41:00 EDT, Weight Dosing Follow-up With When Contact Information Funmilayo ESCOBEDO MD In 1 week [address] [place] [address]- Additional Instructions: Funmilayo ESCOBEDO MD In 1 week [address] [place] [address]- Additional Instructions: Problem List/Past Medical [...] type 2: (more content not included)... Normal [facility] Comment on above: Result Comment: Elec [...] 05/13/2008 Document Revised: 07/07/2019 Document Reviewed: 07/07/2019 [employer] Patient Education ? 2019 [employer] [facility] Coding Summary.on 07-12-2020 Coding Summary. CD:[id number] Gh0bWw+PGhlYWQ+PE1FV WXbN83izWFirN2WB4gLA Y2SSAZHMVZQDG6PVR7uj XO8OQicJ4IifcIy GvmtlDXnUO93LDy8IQQ6 xYhkOHocwM3erDXdG1q0 ZnJlVZ30wB96YLvgLPIb ChM8OtKphpzsvQSc S0qjWqNslAJvKpy+PHRh YmxlIHdpZHRoPScxMDAl YzUnjOjuEP8kGb3tYDSx LWNvbGxhcHNlOiBj m9lhLLLcXFwgXV3tlZvp V4BxlCH8DLJos5s1Dq69 dHI+FYEiNPL3xJbbCCdu g254AhWhb4gvUNX0 bVOfRAglNXQ1Q22ym7E6 IOWrGNIjYJY0jDR1mJ0l eWkzbpbaR7QguFVgRzV2 ETT1uGFzqI7nyLet pywywS7ePrp+A58GOQ1L WIBJPQ7YWid9C6RtYuzf dHI+YS00OHPnGZ59iNVf hSKov2oouQz0DdNs ZSWxZBI0eRxdYOgbn7Ly FQKeB33ioCKbw1Z4KTLq sUrqwIBmTpFvxSF9cP1h LXiojzvjz2dkglvk Jeptq2ucuu63wM81L16a TGbhBDDzXEP1HNLlWEJv dSjbzd8mbY5oLj4+IDxj j3fij3sppYi3MsLh LYOyboGxzNndTAH0j4Si Ho81E6WosQjml2UbCar6 aq24jIQdd7H6qLS9DTft AFOqkP4jNEieMkY9 QPKtJvVkxW89jZSuSCrx Hd8khDcgoCvpHD9aLTKw qyqzDWVyuZ1qZOCmdAQg uOxmAY4dFZRudiqr j923NgCgGIF1IMTmtUBk V1QehC0sYlNpXWQhHGJk P9RkqZBzTRqrB614OXwk UmU2MFLnpiAwE2Xx OOMxhJdoFiQ4w5M2Ns8W j4FdmzjbGPV3BMnbWZE3 XdA3EcOeKdK3U2FdXom2 JNCoyJhfLJ6eH0Uh BWHntfvhxuvujVV5OPCq AHRhfF58iTQmKEtmCq5g f9F7m834SKChQUKnkM90 Rc9stEwgRRZeoCBP jU3ceggjv1frutyzHePp QMZrNNe8MOo2DANgjGfu UdFqCFP4WwV9TTH8wYCg zJ3gsGwboygvxJ0x Oyc+S71xtI8tSEM3IWK8 zactFTDsgkQeIZ33JQ06 H4EeJzjnoYZtcSG+PGRp moXsbMzeOI2ePgRl u6hqz6OcTOghH6QwYTPi DFhwLew3QKUfPFU7rCI6 aJ4yOYBhJRwmh1H0mTZ0 C1FtsdQkpi6jl6hs DMLbCSbdY90hdGOao5E2 DULeuJH8NQGxnOxoAnZo uM29Igh+INAzgMnup4Da Tagyz2ncv4mkmDd3 IjMwJSIgdmFsaWduPSJ0 z3TdQj34R92lUSapFCDm AIKfBOFwBVBnfNnjpr6w zN1sNf3+PGNvbCB3 xCK9rO3eOGJdTpQ5SRkc B680EoUurJOsQvbph4nx v2fjvNy1JhNwWUVlvgDu yGuoKSJ0x8PxIa50 L46dWHrsPDEuMVFoEEOk AZTbdWlnfj3feP0pMg9+ JQ1za5gpgt57aF98mXJ+ SJBdESI5jGyjYTty FDVzwG9dMDgpYvM4GHTo IaRkzW20xNRoGYtuSv7l oImzsWucJZ6sVJLrkumi i509WeHya9qiMZGt hZZfRLmoTBB2S90ja9U6 PVAlQEBiPBD6kFD9zX1m bGlnbjogbGVmdDsgdmVy pFcxSBcgBSfrL396 IHRvcDsnPlBhdGllbnQg DsVvYFu6Y6GxExg5ZUBu yKjeKH6iaHLvBIfbLp7x vImvmRyoCS8nGEFh rhpwr317TfWtv5hhSUJb gGVqPNopYPN2G65qj6S3 LQVpOAVcOYE2qNK0dO7e bGlnbjogbGVmdDsg muYqwUxnLUblEHzzU419 IHRvcDsnPkJpcnRoIERh sEW1ZU15AF76xKZul2E8 xZL5E3KkMECineav jhheaSP4HEXwCSTfiJ77 Xi5zzNvkEy6kAOTaZWP7 WNZlzVElA6SkkT3eOfVl POXbZHYrI9BtuMRs ONpoE397CFcwWzD2URGa leDcR5HfRFErvNcbUkK6 c8L3Gs0MW5G0IE40TT27 wKVaq7F7pES0N6Gf TMTrqtrqgwogiIQ0UTJi GDZyjA68Ul1kwMrbOt0i GUYiARE0MZSkeWVqA6Sk vO1yLnBmDGBqJHMv A3FrrBFyRBysK548QGnk TsS3EVFhpiPpY0PcUNId bXpeBoQ2r1F8Lx4FKYs9 OY84EX06zXFpk9Q3 rQL5A8XiDBMjrjaoagya yAD5HEAxWYWcxG62Ii9y hWxiQm4dYKItLDY8CMVq sTCgN8GarS0kSpJv GADcGSWcF6XriJEyTQxu S889XFmwBhB0EJFotgGu R7SkAEHojAqmFcT5h2J8 Ey7BPTEpGT58GHJ7 wGZ6YO45UH87I3KbEjjs dGFibGU+PHRhYmxlIHdp ZHRoPScxMDAlJyBzdHls LG8cUa8lMCXdHMNo oBvevZZsYpUhk9auQFVq TXimWE1zpCpxN2PoaKU0 KGVmx7b2Ma13B98tJ0Mw dXA+BOLqvQF0gRD9 aV8xArNzIqL4RUvmG071 JuPcdJLtUlypy4mdm7ys yVl0IjK7BUQdygUivCib JVN9y1DdMf48M23t IHdpZHRoPSIxNSUiIHZh xSmtqw0wiC6eGw0+PGNv jIN0pIE9zC9wEeDwCgF6 ZRotC573PkZznCOm Hxoiz9gml2edsIr8PaFn NGTplbVigBdbLUZ7h2Sw Ql56E6HikHjor4EtKkp7 th08lBBzl0W9xKS0 M0SwCVXlfupviTVolKzx UZ0oMNVjlydpHDZynR4d RFRfM2k4OaPeBcP1VNle U3SxloE7ZEAdyNTe JOycORV8C83ur8D1BBHi KFKwPNX6sGY0aI6biDcu bjogbGVmdDsgdmVydGlj YTdrOWqbO001NLWm wPnlZCAjpL9gMYPnhXCh lQkpDM6oLCSaefzaBrSL LlqRXc2tGOLNVwUOT7Nf TDwvdGQ+PHRkIHN0 fHxhTWjxYXOtaL9vBKTq F7u2SzYqFnF5TIueP2Av GMAhtlduFm44lD3kAbCq EmR0XQxhF6CweuR9 CLUqoIGqZVdtELD2B73f a2H4BHYxCGQuCTK2tUK0 rT3sgFtlyhlvdCHtyDid dmVydGljYWwtYWxp T445BIHdoAczKcG3IrNv AaT0CWQ9G2UgGyx8MYVz rXavAT6fxXWnWEplHe8h yJbokByeFE6rANLw bzisQESgcY7lMPRbtBEb lWsqDV9qVGPradvgn042 QeXyONN7RDKxxMEdR3Ka bM1jDtPyHAYyFOHc Z3WqgIBjTPmqR413JEsa QrH7ZGPnxuZpP7KxEOFn nUdlKvO9j4U9Vi1kCMUJ ZWFyczwvdGQ+PHRk VKT5jBpfAWzkNEGanA5o HSTfP3g8HaUtWkK4BZbu N1YqTCEvjoqpZe07eF5h QtLfVfC6QQaiU3Qx awS3RYDggCDaVWwxOHS3 E57bi6S8FSJbCDRaMBH3 yVZ9fB9giDkgzunkpZYn dDsgdmVydGljYWwt RZleM666JKXncTkqHbPz bWFsZTwvdGQ+PHRkIHN0 tZtxTLbzXZQsrU0xGUBf F4c8CmGtWfI1HKfj M0AwEHJdtdcqZc35uU9f FsQxItF6TSbeB1FiowV2 SZUgfFVqOOcyFSE9V57v p1K2RILlDXAnKDE9 zIH8hB4noFmbiwfasETe dDsgdmVydGljYWwtYWxp E680KECrqHqdMd8YSQMy aWFnZTwvdGQ+PC90 ka49S4OrEltvWbk9PUZw GSB0vEF9gE5aIHVgBKtk c6H2pOO9N7AweeDhgt1q c7xyVNQuRYraV07a uUXtn8R6SCPnzUG8ZFCw bBlaPyZycI45Vjv+PGNv iZzpm1TdItapt9bok4uv iCh0OaLwNSOakbOi rJxuDOJ2g6WaPj83O64x IHdpZHRoPSIzMCUiIHZh bKodqj0raQ3rPr7+PGNv hEP0hOD7kL6aSeJu FiY2EMjmW044YpPyrMYd Qmsnv2ocq0jvpTr3HzTv FILhnkTslLbcMND4y6Pn Ir92R9MkjLzcl3Qo Ikc9nc63lUJtw3D1wNO7 W4RkMFEwbqgnrPUbdLej XY8dFVSdvadoQSNjuB1c WVEsB9k0YwOnVyN9 EVooL4EdbsK1SZRycWXg CWFdwMSMgM4bvtard0te prnrPgKpKOChFHz5VDm6 LWFsaWduOiBsZWZ0 TzU5RIB3eKYnqT9eoIkw qnghkN1tRhx+ITz8r7wv rPEhGD4hqGT9WV96BY23 cYVxb0Y0xIO5I0Vr NNRurwzantpdrUV3WDNs QSTlwJ95Ho1bjCocNs7x QGYbLGM1JFScdNGwV8Gf cR5dLaGkUFRlUQNr Y1PhaYYvRDouA557NLyw YdJ6TPEnixMqP3UrVBDz dUoiPwM4m1C3Fn3OKT81 IH55RK61pQQzg4D7 cPW3Z8ZgJVDyhkhnbcpz vFT1DXThKRBilM30Ur3i oRvwSb4xPLFnGEZ2ZXKt dUKpY5CzeI6uZhOl DUYxQOGbJ6NjmXVzGWdz D539SAgmAcS3YUYeafMm Z5NmEJYfvVoqHvT5j8K6 Yx6UJj94AV23CS64 sHPxf8D8fOP4L6EmPYDq npogsdynkNT9WANpAFIj hP46Gi5ooRfxHs1vPCQv FQI4LMKlbXQwG1Pz dY6tBaBgRXNwZGTlZ2Mq nZFxCCjhK196COzrHvE8 XWUltzKhZ7GmLPClkQqm OlC6m0E8Qx5IQUko vdi7W5KkVgjayHA+PC90 FDKiPY75lOEalUYlr4jd qJc0JuEbOWZdLIA5bLiv KUebs0DgAWVeM82g bGFw (more content not included)... Normal [facility] Insurance Correspondenceon 0 07-12-2020 Insurance Correspondence [id number] 8#1.00CD:127 Normal [facility] Insurance Correspondence Off iceon 07-12-2020 Insurance Correspondence Office [id number] 1#1.00CD:127 Normal [facility] Nursing Assessmenton 021 Nursing Assessment [id number] 8#1.00CD:127 Normal [facility] Group B Strep by PCRon 07-09 Group B Strep colonization by PCR Negative Normal Negative [facility] Comment on above: Order Comment: vagin al swab Performed By: #### 2 [id number], [id number], [id number] #### [facility] [address] [id number] ABO/Rhon 07-08-2020 ABO/Rh Positive Invalid Interpretation Code [facility] Comment on above: Performed By: #### 1 [id number], [id number], [id number], [id number] #### [facility] [address] [place] [address] ABO/Rh History Checkon 07-08 ABO/Rh History Check Verified Hx Blood Type Normal [facility] Comment on above: Performed By: #### 1 [id number], [id number], [id number], [id number] ####[facility] [address] [place] [address] ABSCon 07-08-2020 ABSC Gel Interp Negative Normal [facility] Comment on above: Performed By: #### 1 [id number], [id number], 9296462, [id number] ####[facility] [address] [place] [address] BUNon 07-08-2020 Urea nitrogen [Mass/Vol] 7 mg/dL Normal 07-08 [facility] Comment on above: Performed By: #### 2 980259, 7397963, [id number] #### [facility] [address] [place] [address] Blood Bank ID#on 07-08-2020 BBID# [id number] Invalid Interpretation Code [facility] Comment on above: Performed By: #### 1 [id number], [id number], [id number], [id number] ####[facility] [address] [place] [address] CBC w/Indiceson 07-08-2020 Erythrocyte distribution width (RBC) [Ratio] 13.6 % Normal 10.9-14.2 [facility] Comment on above: Performed By: #### 2 474123, 9484685, [id number] #### [facility] [address] [place] [address] Hematocrit (Bld) [Volume fraction] 28.9 % Low 34.0-46.0 [facility] Comment on above: Performed By: #### 2 586914, 0591496, [id number] #### [facility] [address] [place] [address] Hemoglobin (Bld) [Mass/Vol] 9.7 g/dL Low 12.0-16.0 [facility] Comment on above: Performed By: #### 2 455325, 3480930, [id number] #### [facility] [address] [place] [address] MCH (RBC) [Entitic mass] 27.4 pg Normal 27.0-34.0 [facility] Comment on above: Performed By: #### 2 501454, 6738675, [id number] #### [facility] [address] [place] [address] MCHC (RBC) [Mass/Vol] 33.5 g/dL Normal 31.4-36.0 [facility] Comment on above: Performed By: #### 2 601595, 9546540, [id number] #### [facility] [address] [place] [address] MCV (RBC) [Entitic vol] 81.7 fL Normal 80.0-100.0 [facility] Comment on above: Performed By: #### 2 564616, 5546292, [id number] #### [facility] [address] [place] [address] Platelet mean volume (Bld) [Entitic vol] 7.9 fL Normal 6.4-10.8 [facility] Comment on above: Performed By: #### 2 183137, 0498814, [id number] #### [facility] [address] [place] [address] Platelets (Bld) [#/Vol] 320.0 E9/L Normal 150.0-500.0 [facility] Comment on above: Performed By: #### 2 591345, 5676663, [id number] #### [facility] [address] [place] [address] RBC (Bld) [#/Vol] 3.5 E12/L Low 4.3-5.9 [facility] Comment on above: Performed By: #### 2 628551, 1990404, [id number] #### [facility] [address] [id number] WBC corrected for nucl RBC Auto (Bld) [#/Vol] 9.9 E9/L Normal 4.0-11.0 [facility] Comment on above: Performed By: #### 2 000717, 9805812, [id number] #### [facility] [address] [place] [address] Creatinineon 07-08-2020 Creatinine [Mass/Vol] 0.4 mg/dL Low 0.5-1.3 [facility] Comment on above: Performed By: #### 2 163647, 9150127, [id number] #### [facility] [address] [place] [address] Discharge Instructionson Discharge Instructions [id number] 8#1.00CD:127 Normal [facility] FSPon 07-08-2020 Fibrin+Fibrinogen fragments (S) [Mass/Vol] <10 Normal <10 [facility] Comment on above: Performed By: #### 2 966070, 8324187, [id number] #### [facility] [address] [place] [address] Stainon 07-08-2020 FMHV 0 mL Invalid Interpretation Code [facility] Comment on above: Performed By: #### 2 034309, 1215679, [id number] #### [facility] [address] [place], [place] [address] Negative Control Negative Normal [facility] Comment on above: Performed By: #### 2 879915, 6672850, [id number] #### [facility] [address] [place] [address] Fibrinogenon 07-08-2020 Fibrinogen Coag (PPP) [Mass/Vol] 451 mg/dL High 200-393 [facility] Comment on above: Performed By: #### 2 648500, 1933752, [id number] #### [facility] [address] [place] [address] Hep Func Panelon 07-08-2020 Bilirubin.indirect [Mass or moles/Vol] UTC Abnormal 0.1-0.9 [facility] Comment on above: Result Comment: Resu lt verified by Discern Rule. Performed result UTC (Unable to Calculate) was sent as an Alpha code due the inability to calculate a valid numeric value. Performed By: #### 2 746479, 5850180, [id number] #### [facility] [address] [place] [address] Albumin [Mass/Vol] 2.6 g/dL Low 3.3-5.0 [facility] Comment on above: Performed By: #### 2 547112, 0920932, [id number] #### [facility] [address] [place] [address] Albumin/Globulin (S) [Mass conc ratio] 0.8 Low 1.1-2.2 [facility] Comment on above: Performed By: #### 2 335557, 2015784, [id number] #### [facility] [address] [place] [address] ALP [Catalytic activity/Vol] 108 Int._Unit/L High 21-98 [facility] Comment on above: Performed By: #### 2 191173, 0223983, [id number] #### [facility] [address] [place] [address] ALT No additional P-5'-P [Catalytic activity/Vol] 13 Int._Unit/L Normal 6-46 [facility] Comment on above: Performed By: #### 2 795007, 2065877, [id number] #### [facility] [address] [place] [address] AST [Catalytic activity/Vol] 22 Int._Unit/L Normal 5-43 [facility] Comment on above: Performed By: #### 2 742608, 7583461, [id number] #### [facility] [address] [place] [address] Bilirubin [Mass/Vol] 0.4 mg/dL Normal 0.0-1.1 [facility] Comment on above: Performed By: #### 2 281038, 6364703, [id number] #### [facility] [address] [place] [address] Bilirubin.direct [Mass/Vol] mg/dL Normal 0.1-0.4 [facility] Comment on above: Performed By: #### 2 376458, 5146412, [id number] #### [facility] [address] [place] [address] Globulin (S) [Mass/Vol] 3.4 g/dL Normal 1.4-4.0 [facility] Comment on above: Performed By: #### 2 614220, 3200603, [id number] #### [facility] [address] [place] [address] Protein [Mass/Vol] 6.0 g/dL Normal 6.0-7.8 [facility] Comment on above: Performed By: #### 2 182146, 4479677, [id number] #### [facility] [address] [place] [address] Inpatient Clinical Summaryon 07-08-2020 Inpatient Clinical Summary [address] [address] Clinical Summary Person Information Name: MYA MYLES [place] Age: 30 Years : 1990 Sex: Female PCP: Chao Blackwell III, DO Marital Status: Single Race: White Ethnicity: Non- or Language: Trinidadian Visit Id: Visit Reason: Speciality: Acuity: Obs Enc Type: OB Triage Med Service: Obstetrics Arrival: 07/07/2020 19:39:51 Discharge: 07/08/2020 21:22:00 Dispo Type: Home (Routine DC) Address: [address] [place] [address] [address] [place] [id number] Provider Notes: Diagnosis: Problems Active Obesity complicating [...] Follow up: With: Address: When: Funmilayo [place] [address] Business (1) In 3 days 07/11/2020 Comments: Call Dr. Kramer office Saturday morning to see if she wants to see you sooner. If not keep appointment. Call for any problems. Call for severe abdominal pain Call physician for heavy vaginal bleeding (more content not included)... Normal [facility] Inpatient Patient Summaryon 07-08-2020 Inpatient Patient Summary [address] [address] Patient Discharge Instructions PERSON INFORMATION [...] Follow up: With: Address: When: Funmilayo ESCOBEDO [employer] [place] [id number] Business ([employer] In 3 days 07/11/2020 Comments: Call Dr. [...] Type Location Start Finish [facility] 4:30 PM 07/14/2020 4:45 PM Confirmed [facility] Ultrasound [facility] [place] 07/21/2020 4:00 PM 07/21/2020 4:45 PM Confirmed WH SOV [facility] [place] 07/21/2020 4:30 PM 07/21/2020 4:45 PM Confirmed WH SOV [facility] [place] 07/27/2020 2:45 PM 07/27/2020 3:00 PM Confirmed WH SOV [facility] [place] 08/02/2020 4:30 PM 08/02/2020 4:45 PM Confirmed WH [place] [facility] [place] 09/15/2020 9:00 AM 09/15/2020 9:30 AM Confirmed [...] Document Released: 05/03/2009 ExitCare? Patient Information ?2009 Let. Labor and Information normally lasts 39?41 weeks. [...] or tightening. (more content not included)... Normal [facility] Lyteson 07-08-2020 Anion gap [Moles/Vol] 9 mmol/L Normal 6-16 [facility] Comment on above: Performed By: #### 2 047404, 2782282, [id number] #### [facility] [address] [place] [address] Chloride [Moles/Vol] 108 mmol/L Normal 101-111 [facility] Comment on above: Performed By: #### 2 063177, 8121436, [id number] #### [facility] [address] [place] [address] CO2 [Moles/Vol] 21 mmol/L Normal 21-31 [facility] Comment on above: Performed By: #### 2 244903, 7186011, [id number] #### [facility] [address] [place] [address] Potassium [Moles/Vol] 3.4 mmol/L Low 3.5-5.3 [facility] Comment on above: Performed By: #### 2 311056, 3450018, [id number] #### [facility] [address] [place] [address] Sodium [Moles/Vol] 135 mmol/L Normal 135-145 [facility] Comment on above: Performed By: #### 2 067902, 5969138, [id number] #### [facility] [address] [place] [address] PT & PTTon 07-08-2020 aPTT Coag (PPP) [Time] 25.4 second(s) Normal 25.1-36.5 [facility] Comment on above: Result Comment: Hepa rin therapeutic range (represented by Anti-Factor Xa activity of 0.2 - 0.4 U/mL) corresponds to PTT of 56.6 - 109.0 sec. Performed By: #### 2 524188, 9731314, [id number] #### [facility] [address] [place] [address] INR Coag (PPP) [Relative time] 1.0 {INR} Invalid Interpretation Code [facility] Comment on above: Result Comment: INR results are specifically intended to assess patients stabilized on long-term Anticoagulation therapy suggested INR?s ?Less Intensive Anticoagulation? 2.0 ? 3.0 Conventional Range 3.0 ? 4.5 Performed By: #### 2 365165, 9513927, [id number] #### [facility] [address] [place] [address] PT Coag (PPP) [Time] 12.2 second(s) Normal 10.2-12.9 [facility] Comment on above: Performed By: #### 2 547011, 5918310, [id number] #### [facility] [address] [place] [address] Uric Acidon 07-08-2020 Urate [Mass/Vol] 2.7 mg/dL Normal 2.2-7.4 [facility] Comment on above: Performed By: #### 2 382456, 8957437, [id number] #### [facility] [address] [place] [address] eGFRon 07-08-2020 GFR/1.73 sq M.predicted among blacks MDRD (S/P/Bld) [Vol rate/Area] mL/min/{1.73_m2} Normal >=59 [facility] Comment on above: Order Comment: Order Added by Discern Expert. Result Comment: eGFR is race adjusted. AA=. Performed By: #### 2 493326, 2728348, [id number] #### [facility] [address] [place] [address] GFR/1.73 sq M.predicted among non-blacks MDRD (S/P/Bld) [Vol rate/Area] mL/min/{1.73_m2} Normal >=59 [facility] Comment on above: Order Comment: Order Added by Discern Expert. Result Comment: Water Pollution Specialist ramesh kidney disease could be indicated at eGFR's of less than 60 mL/min/1.73m2. Kidney failure is indicated at less than 15 mL/min/1.73m2. Performed By: #### 2 240504, 3806292, [id number] #### [facility] [address] [place] [address] AmniSureon 07-07-2020 PAMG-1 Protein Negative Normal [facility] Comment on above: Performed By: #### 2 983587, 2104953, [id number] #### [facility] [address] [place] [address] PAMG-1 Protein Internal Control Positive Normal Positive [facility] Comment on above: Performed By: #### 2 427376, 1995454, [id number] #### [facility] [address] [place] [address] Consent for Treatmenton 06-19 Consent for Treatment [id number]#1.00CD:127 Normal [facility] Consent for Treatment [id number] 9#1.00CD:127 Normal [facility] FFNon 07-07-2020 Fibronectin. Ql (Vag fld) Negative Normal [facility] Comment on above: Result Comment: In [...] the antibody-antigen reaction. Performed By: #### 2 295806, 0812111, [id number] #### [facility] [address] [place] [address] UA With Cult Reflexon 2020 Bacteria LM Ql (Urine sed) 1+ /HPF Abnormal Trace [facility] Comment on above: Performed By: #### 2 599807, 9231099, [id number] #### [facility] [address] [place] [address] Bilirubin Ql (U) Negative Normal Negative [facility] Comment on above: Performed By: #### 2 050607, 2012229, [id number] #### [facility] [address] [place] [address] Clarity (U) CLEAR Normal Clear [facility] Comment on above: Performed By: #### 2 595731, 9034982, [id number] #### [facility] [address] [place] [address] Color (U) YELLOW Normal Yellow [facility] Comment on above: Performed By: #### 2 103195, 0370319, [id number] #### [facility] [address] [place] [address] Epithelial cells.squamous LM.HPF (Urine sed) [#/Area] /[HPF] Normal 0-2 [facility] Comment on above: Performed By: #### 2 898220, 6813119, [id number] #### [facility] [address] [place] [address] Glucose Test strip (U) [Mass/Vol] Negative Normal Negative [facility] Comment on above: Performed By: #### 2 772107, 3504447, [id number] #### [facility] [address] [place] [address] Hemoglobin Ql (U) 2+ Abnormal Negative [facility] Comment on above: Performed By: #### 2 714037, 9057233, [id number] #### [facility] [address] [place] [address] Ketones (U) [Mass/Vol] TRACE Abnormal Negative [facility] Comment on above: Performed By: #### 2 617361, 9662375, [id number] #### [facility] [address] [place] [address] [place].plasma/[place]. RBC (Bld) [Mass ratio] >30 Abnormal 0-3 [facility] Comment on above: Performed By: #### 2 940303, 1166224, [id number] #### [facility] [address] [place] [address] Mucus Ql (Urine sed) TRACE Normal [facility] Comment on above: Performed By: #### 2 602918, 4333941, [id number] #### [facility] [address] [place] [address] Nitrite Ql (U) Negative Normal Negative [facility] Comment on above: Performed By: #### 2 011879, 9423642, 096940697 #### [facility] [address] [place] [address] pH (U) 5.5 [pH] Invalid Interpretation Code 5.0-9.0 [facility] Comment on above: Performed By: #### 2 579066, 6812293, 102453138 #### [facility] [address] [place] [address] Protein (U) [Mass/Vol] Negative Normal Negative [facility] Comment on above: Performed By: #### 2 082604, 7373189, [id number] #### [facility] [address] [place] 7036257 Specific gravity (U) [Rel density] 1.025 Invalid Interpretation Code 1.005-1.030 [facility] Comment on above: Performed By: #### 2 369165, 0758692, 136227476 #### [facility] [address] [place] 7036257 Type of Urine collection method Clean Catch Normal [facility] Comment on above: Performed By: #### 2 845876, 4060095, 975747669 #### [facility] [address] [place] [address]36257 Urobilinogen Qn (U) 0.2 {Henny'U}/dL Normal 0.0-1.0 [facility] Comment on above: Performed By: #### 2 172425, 4505521, 921868514 #### [facility] [address] [place] [address]257 WBC Auto Ql (U) Negative Normal Negative [facility] Comment on above: Performed By: #### 2 272754, 8005172, [id number] #### [facility] [address] [place] [address] WBC LM.HPF (Urine sed) [#/Area] 0-5 Normal 0-5 [facility] Comment on above: Performed By: #### 2 829006, 0158282, [id number] #### [facility] [address] [place] [address] Ambulatory Clinical Summaryo n 07-06-2020 Ambulatory Clinical Summary {[id number]}CD:[id number] Normal [facility] Obstetrics Office/Clinic Not jasmine 07-06-2020 Obstetrics Office/Clinic Note Chief Complaint OB visit 34 weeks 6 days. Obstetric History History (1,0,0,2) # 1 Baby 1 Outcome Date: 2008 Outcome: Live Outcome or Result: Vaginal Gender: Female Gest Age: 41 weeks Wt: 3232 g Hospital: [facility] Labor: -- Child's Name: -- Baby's [...] Stable. Ordered: Office Visit Level 3 Est 53016 TH 2. Obesity complicating , third trimester (O99.213: Obesity complicating , third trimester) Doing well managing weight gain. Ordered: Office Visit Level 3 Est 84692 TH 3. Supervision of high risk in third trimester (O09.93: Supervision of high risk , unspecified, third trimester) Follow up in 2 weeks for appt and growth US. PTL precautions until 37 wks. Ordered: Office Visit Level 3 Est 32247 TH 4. 34 weeks gestation of (Z3A.34: 34 weeks gestation of ) Ordered: Office Visit Level 3 Est 46772 TH Follow-up With When Contact Information [facility] In [address] [place] [address]- Additional Instructions: Problem List/Past Medical History Ongoing [...] Protein Urine Dipstick: Negative (07/06/20 14:59:00) Normal [facility] Comment on above: Result Comment: Elec [...] Document Reviewed: 07/23/2008 ExitCare? Patient Information ?2013 Let. [facility] US Follow Upon Follow Up Exam Date/Time: 06/23/2020 15:12 EDT Reason for Exam: Size - measuring standard growth/amniotic fluid volume;growth q4w - anatomy completed with [facility] Report IMPRESSION: SINGLE LIVE INTRAUTERINE CORRESPONDING TO APPROXIMATELY COMPOSITE ULTRASOUND AGE: 33 WEEKS, 3 DAYS. NO GROSS ABNORMALITY IDENTIFIED. US Follow Up: 06/23/2020 2:35 PM CLINICAL HISTORY: Size - measuring standard growth/amniotic fluid volume, growth q4w - anatomy completed with [facility]. . LMP: 11/05/2019 CLIFFORD: 08/11/2020 Gestational Age [...] Signed by: Yousif Toribio M.D. Transcribed by: [facility] Technologist: ADEN Technical Comments CLIFFORD 08/11/20 CLIFFORD Obtained CLIFFORD by US GA 33w 0d History 3 Para 2 Transabdominal Ultrasound Performed Placenta Location posterior Placenta Grade 1 2 Positioning Vertex Amniotic Fluid Volume Normal Normal [facility] Consenton 06-24-2020 Consent [id number] #1.00CD:127 Normal [facility] Ambulatory Clinical Summaryo n 06-23-2020 Ambulatory Clinical Summary {[id number]}CD:[id number] Normal [facility] Ambulatory Clinical Summary {[id number]}CD:601789 Normal [facility] Obstetrics Office/Clinic Not jasmine 06-23-2020 Obstetrics Office/Clinic Note Chief Complaint OB 33w, baby moving, swelling in feet. Having heartburn for about two weeks. Obstetric History History (1,0,0,2) # 1 Baby 1 Outcome Date: 2008 Outcome: Live Outcome or Result: Vaginal Gender: Female Gest Age: 41 weeks Wt: 3232 g Hospital: [facility] Labor: -- Child's Name: -- Baby's [...] trimester) Ordered: Office Visit Level 4 Est 06785 NC 2. Obesity complicating , third trimester (O99.213: Obesity complicating , third trimester) Ordered: Office Visit Level 4 Est 05192 NC 3. Depression during (O99.340: Other mental disorders complicating , unspecified trimester) Ordered: Office Visit Level 4 Est 30432 NC 4. 33 weeks gestation of (Z3A.33: 33 weeks gestation of ) Ordered: Office Visit Level 4 Est 69870 NC Encounter for immunization (Z23: Encounter for immunization) Ordered: tetanus/diphtheria/p ertussis, acel (Tdap), 0.5 mL, IntraMuscular, Once, Stop date 06/23/20 16:00:00 EDT, Routine, Start date 06/23/20 16:00:00 EDT EACH ADD'L Foot Setter Admin Component 15315 EACH ADD'L Foot Setter Admin Component 49672 FIRST VACCINE Foot Setter Admin Charge 02634 Orders: famotidine, 20 mg = 1 tab(s), Oral, BID, # 60 tab(s), Refills(s) 2, Pharmacy: [id number], 157, cm, 06/23/20 15:10:00 EDT, Height/Length Dosing, 86.7, kg, 06/23/20 15:10:00 EDT, Weight Dosing Follow-up With When Contact Information LAURA MACEDO, Funmilayo Ryan In [address] [place] [address]- Additional Instructions: Problem List/Past Medical [...] Protein Urine Dipstick: Negative (06/23/20 15:09:00) Normal [facility] Comment on above: Result Comment: Elec [...] keep your urine pale yellow. ? Take snkj-btp-xpsznbj and prescription medicines only as told by [...] 02/04/2006 Document Revised: 05/25/2019 Document Reviewed: 05/09/2017 [employer] Patient Education ? 2020 [employer]. First Stage of Labor Labor is your [...] monitor strap (more content not included)... Normal [facility] Coding Summary.on 06-12-2020 Coding Summary. CD:[id number] Gh0bWw+PGhlYWQ+PE1FV GXpX63cqHHchR5WP2wMJ F5FGQWAWAAEZR4VHC4ic KI1ACbvJ9LpanSd NqobbXSmWF20IXn8YWC9 bChlXJshxP8roOGaA0n0 MyCbPA58aF91FAhpADYc CcX3JaGpyiodxWFq H0dcAtLspIZnKrz+PHRh YmxlIHdpZHRoPScxMDAl NmMhwSleAI4pJb0cDDGd LWNvbGxhcHNlOiBj h7wlQQJaALyjGJ0snUuh F4GhmJQ4RGEqh6o8Xe40 dHI+NDDmQAJ7cWybAMpa y888OjKco8pyCCN6 kVQaPCazIVK4G87kj0W4 YHJsQHTsMZU0iJM3hX3z cEsuogxgL7EfxGAdNeY4 KAS5hWPhrM8ulFiv jtwjkQ6nJoj+M65SGM5Y NVKPFS3MIto1V6ZiHijl dHI+IC10SGUvHT76dDOg tPUxu2espWa9OkDc VQAnCWO5xIgjLZxto6Eu DFAdN46opXVsv7D2SNNr sDwhgYBeXeQutAX0aP0m UFdzbexli5nemwln Xtiwc5gbbi63aD46J60m NGnqZKPlNQK7PYFhMJJj oPebfz2xvU1yGg7+IDxj m7ppk1konWl6EfBx AORastRrrDzxPCW7v5Od Qo01P0CnkAxuv9KtUzl5 fy60hSPmt1D0qYX7HEyi TSDtfA1hUTopQlL1 MWCsUjUecH54hTOqSAno Jj0diXsaeHtpFR4uZXYy hjshKWXczT5bJEDmaGBa eVamQJ3qOLLbbukc g412LhSoASG5FNNrzKEg M1ZgvJ9mXiAjEVPxLJZw I7XwiFDvSXnbJ753IYdk JsW4PNLhwqRvQ9Sw YUYgrAbcOvB6w9W0Ud5G u1NrfflcXYG4EPuxCUG8 JzC4SzTvHeU6P2ZjWfj3 UPEveXrjXF8uO1Ab MXNvtqaszhnezYC5LFPv RVQagM61nNJaAUrvLk5i q5V9f834NSMjABFunZ02 Am5kxYmaWDRwxFAO vP7oeakia3vtqaitKvEo OHVpFUp7YJb9MLBotMuz KtPpVKH9PwH2CTL0iHCz vG7hsQbgjcscdZ5l Oyc+W40guE5aNVE5KQE9 cctiSGHneeQxKE50TK65 I8SaIsideTSmmWY+PGRp lwLkaPnaMD3aCmHx d1bwe4BbXMhfC8SfFXCp GHyrDos3LCNtMUS3vYS2 jS4rGQHxCFude7J3pSB6 T7QjjlEloe0jy2rg WBXhUDwoV40apRIjk0B0 MOJqfRU1DQNagBqxNwCf kQ67Waj+SHGzvHpii0Et Utbxp4okv7cwwQn9 IjMwJSIgdmFsaWduPSJ0 w5JqGs20K36nWIxuOTVu KNDfZUDcIXAxqJtweb3z eW2gDn3+PGNvbCB3 cMV0sG8tEFLfRfK8OFzn Y928ErLjaBGjMkzwd9wt o8rgrEj1OjTeAEBhdhZa dOgaYFN1e8CaBa91 Z09iFWgpMMCbANJdKHTn BOXefHjjhf4qxA9zZx3+ RE5fb0majq82yC19oRA+ YTCkAWN6fTpzCHup KZYzlP3pSJzkBlA8STRg UrIozX58bGDgSLfcKe9n xAynjUsnHU7tJTCdquag k611LoJtx4pgLNTz bYCsWWxvLUN9Z27fk1L2 FPKfPZRaFEG4xRJ0iK6v bGlnbjogbGVmdDsgdmVy hQwtFQqeHLufQ232 IHRvcDsnPlBhdGllbnQg LqItJDc6P2BuKvz4QINy kDdePX7mvEZwHDleRd2l tEfukFjxNW1xUEOw zkxbc283OdGco1nlRYCr lIWgIBsfHDH8A92ju5G8 BSFyJDFtFIG9aMZ5lZ2w bGlnbjogbGVmdDsg xdBhcRhbEYlsVRxaZ218 IHRvcDsnPkJpcnRoIERh lWU0KD68YG40zKBxc3Y8 yXJ4M6XuITDoakfj fzawtJN0MMTmKVZxrZ71 Vw3cwTwcRn9nPLOiSAK3 HMItqFNrR8FtjL8eUzTm RUVrGCRmP9RlfVTz KDqcM196PCmfGlC7FPPt ddWzT9WbMMTvsHrvJjJ6 s5V5Xv2AC9U8ZD52HL22 qFBdg2O0sII7E6Mb KPXejjrtioavdNO2OWTm NWQtkR02Wx8adOkbQj4f WZAuOEJ1YIJunFMtZ9Pi lL2vItBjCFWrGXUw L9XinTUpPWaaG071IPkj WzS9ITOkicTqR1GzEGPn sBlgXuJ2j7D5En9UFWx1 BJ00TF29qWJpm5M7 aHI6C9CeEOCxxvbvltrx kQA5OKZdXNGngD80Hq8v nRsoWm7bLGDeBAH1FJBg pSGyQ9QavO9tCsEb CYWqHUQtR1HgfWVfQTpb B584RFjlNkO4XFIdgjTi E2GmLZCylFwxPpL6q5D0 Fd8LKJEpHK49JZS5 tPZ0UE62NK85G1EzSjqn dGFibGU+PHRhYmxlIHdp ZHRoPScxMDAlJyBzdHls HZ7qHz1rKWRrOCMv sPluzMXtDbDmz7ecXXEu UQhzLJ5dzXypT0AekKM0 JJIle1s9Im99Q97zO3Kn dXA+RKRqlPB3rYI6 yM0hYoUfJqW1MZvsK814 VdLlfIQgFkikl9tys7dc bWr1CdT9RBLkkxWbvGlb KIS3l5GzLw63I70s IHdpZHRoPSIxNSUiIHZh ePaqjc7hqH8cUj9+PGNv eXI8hCO8zL4fBfOxGbG4 GHztQ813IvHfsASl Ladmi1lsw5jvgTp2QkZi FSLdyfCygEmbNHL8r1Cr Ec01N0KsxGjjr5YrVjk1 or50zEWfz1K8eDP4 W1VfRHOpryjwwFYebFeh SE7hKOQzexrbZPVupN4m GXNwB5s6EwTbSmP7PZat L5QcalJ7ZQDgeTJa ATgbGSR2U55wd3T1EWSt CJLqARA0fEZ5gP0grPtw bjogbGVmdDsgdmVydGlj NIafIZknW866XOWd eCnsHJDuuG4aDGTlzBVr cOefFC3cMHKyolcfWvAR KivJUe6yGDESKuTMT0Mf TDwvdGQ+PHRkIHN0 uUreTEmfFUHtbS8yUSEe W9v5NyWpOzJ2NKkfR3Xu IAMrmqdzLu48gX0iDaGl WcS2JEwhZ0AxpbG3 HUPwpGMwORitAZA3Y16b y1R9NCYgMNCyYVU8gLC7 yM4wmBfvhkrsyJNvxXco dmVydGljYWwtYWxp L338XZSgnIasHfF7CfJf DrE5OCY2S7WzTcl3GTNt yMyiPS8wrNWkROgdOb8y cNfltWvcKT3hLKDv vgwsYKHstM7tPCEckHZm tKgwRR6jIFLygkctj554 LqVhTBW7TZJstWYeT4Mo pJ8kLyBnTJOuQGIr F4DtfVAkLHdgO105NGzj RqB0PZOprvViP2CzZYIo yHjnIpJ8m2G8Ga3zVDTS ZWFyczwvdGQ+PHRk CAG6iIxqVRtdMIHfxT8z ZLFjO2x6ZpTuIkX7ARsf X4UsFSDzrixzYw56wN2x DfPwUsS4ROxuQ1Lt hcX1GUKvbOPqNOhqGWG7 I96kn8H7JDKnQUYwISB2 xOE4iM5xjExrfsjrmYBs dDsgdmVydGljYWwt UWszM162BGOjbDltCfAf bWFsZTwvdGQ+PHRkIHN0 zVfySFciARNanH1mQEGi S0x5GsHqHoC4MEmi R0SoTVRqabatCo23kR8g ZmSpJuL5REstF3QmulL3 LCXjjAPzAZaqWDV6D67e q8D8ZNInOJVmKUP3 fEP4hM2oeArowkysaHCi dDsgdmVydGljYWwtYWxp X098XJVobAwkPr41sJIb zJpxkcF7Q9LoWywu dHI+EF59PKEcFD14mNGi lPSoc3aycPs5QfSvPQAi NIY5tXvzZRldf2GdHMSo S98tkQFae5G2HPLk gDkltVZuNvTxgQC6yW9o BYachzbcz7aicwotHbrk v4mkeh44fK29V60yFJwq ZHRoPSIzMCUiIHZh wHskta4keZ9iVw3+PGNv mSQ7hCO5mQ6wLeGeAlA4 OFkiK494NzLvdWCnQufq h7lai6aiyRa6WaHc LAPuesWqmDmvAIW4c5Nx Go48Z35eXIhrHZCyAODs XOWcBKIdqPdwpc8taR6z Ii8+JI6fu9ukti13 cQ25oGX+LJEgGII6uJwf EKhiKIEnrQ8mHRwxDmH1 DZQkKcRdsM70xGNrFQvx Ma5dhLbweIgsEQ1s GEMdzaaal326FiTvd1yz ZNQykBOgMIswJIX6P77p g8J2XOKeSJLlMJK8uWC9 dY3llXpmbkhljQWp dDsgdmVydGljYWwtYWxp N857HRAxbDfpExEgoBCc U2qhiuHNAZ3iUxvxrEB+ EJVcJCA9hZseXZsy BZBxwW8wMNVpQ4v0FwFq KgG0HWkbW7PkmtW0LVHo xSJyGGPzmQABaS6uyskj w0zgqvkiNuGtLENy GIb0JFa3MJEvcWacDpHi WRD4NgD4UGX2cGSruO0y jZwbsmwcoD8pLvd+RklO OjwvdGQ+PHRkIHN0 gDmpNWvjSCXueP6lWCBd S0j7HgTlPdX0IKvlA7Wm ubD7CUGkxIBpTWFesEAK xJ3nmxasx3xxzjjw NyLhHJGjGTx0OCp8JPQp rIjqOpRePLG3SuT1JFO4 wTMvbT9zpClvxqhtgX6a Oyc+TVJOOjwvdGQ+ HYReZXX4yRorUHayBFKs dA8pKKOoR5h8ZnXyUiQ4 EIevC0GdulO7RGAunLZj QHKbeCKUzI3wgsdj q1igmqgyLyGfHGYfIPu2 PXg4ZUIrwIupXiPkSMQ3 AsN1VGW2pMRseM3tqZhb tghbgS5tEap+UGF5 WHA9LU15DJ72K7XcXtze dGFibGU+PHRhYmxlIHdp ZHRoPScxMDAlJyBzdHls PU4dTj4qPQLzAKVo bGxh (more content not included)... [facility] Coding Summary.on 06-09-2020 Coding Summary. [id number] Gh0bWw+PGhlYWQ+PE1FV KHsL03ohMHslN9ZR3oHF D8BJHCNNNUYUZ9UNG5mf QV7AUuhK0VlseIx LbxtdHFrBM06DJt1BJS7 pTbiZBgayY4slGOpQ5c8 HoMgOO48aO70CXkgCCPz KqG6ZiHvzeexgKXg L3enAbTerXKiEhp+PHRh YmxlIHdpZHRoPScxMDAl UpYzzCsuLW0sRn3zGHPe LWNvbGxhcHNlOiBj x6fcXWAgMOveYW7ynDce F7QbaVI8ELIac3p8Sr43 dHI+JSCoNJF9fRbyPYym n964TtZlf3cdZJG9 vDMsCThvSYL2B79qe7R1 PDWvCCGxRCK0xKO2aS5o lKkaetivT6AmtYGiKbO6 SEM0gZLuwF1ivRwv rxuweH7eHka+Q76YPQ7F KOAZZF2RTrc7P6CeIntq dHI+VE39YENpWX65kRNc pSGbo2dkeHf6DgTk QEPjNBM6sFmfKCakh4Lo JUIbF16suAErm1U9UJTl iOludOQxJxHivSO2pQ0h NUsghduyh3mibdxq Fnxwe5gadg98xC92C08t UVbsXGJsGBR9JTHjVMFp dIeuwq2mkS0gFq4+IDxj c2ots2nrvWs9SxHx ZXLcqhQjaVddZMZ3i2Ch Yt81A4HswXvgp8CqWcc7 th41eAQol9C8yBK5WEbr SKXtoP0qKBslMbO4 IOPrErUcxB74hDAmBBos Vd6wlCrmwUtpCM5kFYDc fyhwIDNmcR3bOCRnjKHf kTirVM9vZASmvktg u942YbJdJYR0JKUafFKx J5SmiE4iYwHjCEBiXKLq G1XkcBQfNBodS886BEnj KpG9TUAbntQmM7Vl BEHhiZrwErS5b5Y9Ac8Z o6IcbgprIHR6ZGrmZLQ0 KgIrTwJtWqZ1I0BgZpn5 ZAQlmQfzVI8qL8Uz TLTpzugkzvkjkVR4DQDy JJBbfS74eUQfXChdYv8q w0Q1i466QXApDKEugQ21 Eu9ytHrtCUQmdNJS yQ4czlzct4ntbzpmWuJc WJTlGCk6CLp9UZVzzQis HmHkSHP5QhN1TGV1pFPn eH5ssJsvqvbxlU1u Oyc+I84ndQ4bPNU6CQB6 aezjHBLbomVwJQ18CT16 T0ZtEbpenWXhsLG+PGRp hvLhdAwmNZ8cOmXp y1ygn3RdXXstP6RhMCQq OOdlVcl6CPUrJWV6kGG4 zW1iXTVuGLqpu8V3gRB3 M0QvahKipm3wq4du OMSkLKtdM14ffDInc9Q2 IKBueAS5JBWymWpfHtFg qW74Sts+XDNvqNkrm5Qi Mzame2hpf5knoHb8 IjMwJSIgdmFsaWduPSJ0 c9ArHp27F67uEWccFYGa FZIySPWiZLGeuJejkn3y xP4nQa5+PGNvbCB3 pGS0oW3aHRJxDbQ0MAfx Q513XiXyuVUbQdmip4ob k4ilpOh8HgFmHRIuduJn zVciBOD8c5HmXx72 N57oMJkgLEBpACYqVHQz CPDhpBjxnn4arF8aYz1+ HM1sm3nhae80kJ61nQC+ WNLpGDS1eMcjSQlz YSScnG3tXOvyDyK1QLFa WoOphB01lUYcOXbeGv0n rSgtcEbfBF5wTGCfjzqj v303FcKfi9qpJXXd xYPlCVatBOB1T93lq8G2 LEUlBOXzSKI9fFS2fP7b bGlnbjogbGVmdDsgdmVy aGwgSYjeSDrxS427 IHRvcDsnPlBhdGllbnQg MwJrCYt8S3PpJml7SDMs pBvmXM5xaVUnMXhhYq3g rEdnbBnsML3zKKFt dthij063XiDsd1dxPVNd aUWgZFznCVR8K42le5B0 DQHwZWObRDP2bDU3gS4o bGlnbjogbGVmdDsg yrKxwXyxETojIFfrI175 IHRvcDsnPkJpcnRoIERh hDM3FJ04XX61mGDuz3A7 pPK1Y8JgRVJjpnub ddstfXM5JNOqASSjnA68 Ie8vvLbsLq0kSDSkFXW0 AVKxoAUmK9OevF2mUiNn BGTxGJIeF1EmjRNn OXbzZ900DDfgMkK8ARPy qgOnN4EiPSCczFaaEgT1 e2O0Lg6IR6N9RT04AX55 pDTti2T4yQG1I5Mv YSIgwefmgpblaJX1DIUz NHYowY05Yl3wrYkrNf9a BCFeYIM8NFZafDZqA5Tx pU1gCaHzYYIaYJBi U0HduQDpDHimL592VVsq DeT2FJQuniTzP2PpBHAy bHkrKuZ0p4F7Uu6UXNt7 FY81OL88tGUqi5Q1 zCH3H6DbUAVxldfxafvp fBL1TRDuOCCusB16Rr5k jRgtRh5rEUFfECB8LUZm cHSyV6ZvaJ9jXbZx ZQYjVLVqE4FwhLHvBTvv C123GSnfRvG2YUKvyhEc X7YfTMThcPzgNwL4t6P4 Az4EKMWaMP24YLT8 rQP4FY67IU47O6SpCxni dGFibGU+PHRhYmxlIHdp ZHRoPScxMDAlJyBzdHls RV6sJg5zTNMbGSKu sMnezSGoNkNoc2amNHLa GCcvEM0grVfuS2WpwRX8 JSUub2d6Es22K78bF4Ep dXA+XTHnpDG8zLH0 nY2xAlIqHpY6LUkiN887 MhRvmSSkZwqhn9uba8fv yBv0DzU6WBBtkpMfnIxe NAB3s9UbFs02R29n IHdpZHRoPSIxNSUiIHZh bAjqom5wlC6pXp9+PGNv yRA3bZI1yH0bUrYtMeD9 EAlgH613PjRgnPTe Pgutg6jmp0nhjIg0HdNj YVPneyOezLwpDXX9e1Or Xl09K9IkzWsko2PjDdq1 dp41iWKal6N3lKU8 F6TeUBQdgjhskODzgFja MB6jFCRmcbalYMYdqP1p AUNaO3e8VoNmIhT8JHal K8GkuyZ7YNVrtIIx AHlsIXB7B27js2I7WJZe KDPpSOH0wDP3sH3stZoh bjogbGVmdDsgdmVydGlj NCplIXsdE660CGXi fWgiMCQznZ7dXWWdvOGq jEjdTU6hDGAbtktcLsJY MwuNBj3lBKCITgSZU5Gp TDwvdGQ+PHRkIHN0 vGbjNIcmDEPotC1aTIDj G9z2QzYrYcP6ZUlpC7Hm KEQjbhteBj14qR0uIkIw MdT5EKfhA1WzakV4 ZNXjaYTpRRrtGBO0O99o s9W7SMHtFZTnPVI5vQJ5 jU4lzMjxmnceyDNhzCrg dmVydGljYWwtYWxp H154YBYyfVypFfQ6IaGo UeL2IZD9A3EqEay3RFYz zOtdFM1xzVKnTNvjVk2c gCxvzLjkAP8uNZSx htlbGNGcqE2bTNPzuNHq dXhhMY5jEJDowksor749 TcEfULN9RAAwqIVkS6Ze hL6fErCrAOWvJNYg C0PtjDOdEBcnK823OUni DyP6HTWnbqQvB7UuXCIr oXdkEeS2c5H7Za1kRYJT ZWFyczwvdGQ+PHRk DSB5eGlvHPvlJCUolU7h ZMKkC7t2CtVzUgO5OTco W5QfMVAqsaabXv04xX1h IwQeHmF6EBlpH2Rm egZ8SEOfsNUhXLzpTBM4 B35jk7U5VKZtOGMtAEY0 nEX0yF6iaChjogqtzNLr dDsgdmVydGljYWwt CYshK823NJSbyAnzAwYo bWFsZTwvdGQ+PHRkIHN0 lKjnLAsqYXJlpD8zBXLu E2p8ZsYqOqT4DFta Q0FmMPMytqotFv62tM7i HbSsTjM3ZLpkK3LxhwP5 HZTzbDHxZKuoXEN9T62f v0Q5SPLwYRVeSYL3 sOK8wM4umCsfcgsrfDXg dDsgdmVydGljYWwtYWxp O022QEUbaNahDh65gMKg jOiouuF3Q9JySudl dHI+PG53ZYMjIQ80xQOx uLUbc0kadIi8ZhHmZZCc VQR1yBcsUZlwy7LhPXQc Z40neLNbh2P1HYEb vPrswPAtLpJpePI5wJ5b JQzoibhle2fklrljMvbt p7qshn92nV11K08cKTtt ZHRoPSIzMCUiIHZh oGreuv2imW8sGm4+PGNv dBX2nVO9yY3xCzBbLjW1 LPgtI950NpFdrBAcUtcb y8jgk5ehbPv2ImDo ZYRxcyOezCsoVOG6x9Nd Sg68L28mPYbfRALsEMDn NMZhMCKmgAjyxn6dfO4j Ii8+IF8qm0cndw62 kI15oVN+DMVzZTK5dPde UBvuESLvvP4xSYhqNqG3 EGVnLwMjtC85nAMcZDch Lp7inMhzqVdwQU4v INJjpwaic265HbUpb5gg WCNroHOlDMgoLCH1B43f z8Q7WNVfMKCyRZL8vIO6 mX3ujZeanlgfvTIf dDsgdmVydGljYWwtYWxp V640GBEopMptQoTjxIMg I0rqwbPSSJ3yGncgpMW+ FRTxRJN5oSopEBfy SSTyeV1wLLHpW7g8DlDx UdM2UIofO3OiiwI5YNKh jWRfRBDduRSXzB4owldb c2ogzychFkUoZJSu CBi7FDn9PDBeeKmrSdIm PVG2AlM7WMW7qAUnwW4z bLwumdxxjJ4iLip+RklO OjwvdGQ+PHRkIHN0 oLppJPwtHHWlzP8oHNBv K8g6PdAwSlQ7ZAzuM0Lf smI8KGJrrMTpARBkfFLV mZ3jmtmne7yqhzyb XbWaBJNaPSs1VHt9KJPu gXddVfZqPTI2OqV7YXK5 sVUgeW2mqNwqiiqsyI8j Oyc+TVJOOjwvdGQ+ IQIcICN8lDxuQVxlGENk qZ9dRGCjM3e3LcHrVlI1 QKboC6KatwD3OAUrcXBv CYFmkNCGdB7qsezp g5dqaoycXoMpVHWeSEm0 JUi8AFEeeLmrItEdNMC7 GfL0IGS0uGBoqW2scPmq pxpfaF1fTvt+UGF5 ZKB3LE36XR03G8SgGzvr dGFibGU+PHRhYmxlIHdp ZHRoPScxMDAlJyBzdHls GN6wLz3iOCNeOUIm bGxh (more content not included)... Normal [facility] Capillary Glucose POCon 05-19 Glucose [Mass/Vol] 82 mg/dL Normal 55-99 [facility] Comment on above: Performed By: #### 2 630886 #### [facility] [address] [place] [address] Consent for Treatmenton 05-19 Consent for Treatment [id number] #1.00CD:127 Normal [facility] Glu 1 Hron 06-03-2020 Glucose [Mass/Vol] 139 mg/dL Normal 55-180 [facility] Comment on above: Result Comment: POSI TIVE SCREEN = 1 HR > 140 mg/dL Performed By: #### 2 358879 #### [facility] [address] [place] [address] Glu 2 Hron 06-03-2020 Glucose [Mass/Vol] 123 mg/dL Normal 55-155 [facility] Comment on above: Result Comment: DIAB ETES FASTING >126 mg/dL or 2 HOUR >200 mg/dL Performed By: #### 2 411388, 5367819, [id number] #### [facility] [address] [place] [address] Glu 3 Hron 06-03-2020 Glucose [Mass/Vol] 101 mg/dL Normal 55-140 [facility] Comment on above: Result Comment: GEST ATIONAL DIABETES 2 of the following: FASTING >95 mg/dL 1 HOUR >180 mg/dL 2 HOUR >155 mg/dL 3 HOUR >140 mg/dL Performed By: #### 2 525178 ####[facility] [address] [place] [address] Glu Fastingon 06-03-2020 Glucose [Mass/Vol] 83 mg/dL Normal 55-99 [facility] Comment on above: Performed By: #### 2 418649, 1994220, [id number] #### [facility] [address] [place] [address] Rubella Abon 06-03-2020 Rubella Ab Positive Normal Positive [facility] Comment on above: Performed By: #### 2 181006, 0586900, [id number] #### [facility] [address] [place] [address] ABO/Rhon 06-02-2020 ABO/Rh Positive Invalid Interpretation Code [facility] Comment on above: Performed By: #### 1 [id number], [id number] ####[facility] [address] [place] [address] ABSCon 06-02-2020 ABSC Gel Interp Negative Normal [facility] Comment on above: Performed By: #### 1 0308787, [id number] ####[facility] [address] [place] [address] CBC w/Indiceson 06-02-2020 Erythrocyte distribution width (RBC) [Ratio] 12.9 % Normal 10.9-14.2 [facility] Comment on above: Performed By: #### 2 550936, 8713594, [id number] #### [facility] [address] [place] [address] Hematocrit (Bld) [Volume fraction] 33.5 % Low 34.0-46.0 [facility] Comment on above: Performed By: #### 2 580767, 2064357, [id number] #### [facility] [address] [place] [address] Hemoglobin (Bld) [Mass/Vol] 11.2 g/dL Low 12.0-16.0 [facility] Comment on above: Performed By: #### 2 490634, 5266279, [id number] #### [facility] [address] [place] [address] MCH (RBC) [Entitic mass] 29.0 pg Normal 27.0-34.0 [facility] Comment on above: Performed By: #### 2 451336, 4384297, [id number] #### [facility] [address] [place] [address] MCHC (RBC) [Mass/Vol] 33.5 g/dL Normal 31.4-36.0 [facility] Comment on above: Performed By: #### 2 381879, 2177294, [id number] #### [facility] [address] [place] [address] MCV (RBC) [Entitic vol] 86.6 fL Normal 80.0-100.0 [facility] Comment on above: Performed By: #### 2 117664, 6254415, [id number] #### [facility] [address] [place] [address] Platelet mean volume (Bld) [Entitic vol] 7.6 fL Normal 6.4-10.8 [facility] Comment on above: Performed By: #### 2 278370, 2714939, [id number] #### [facility] [address] [place] [address] Platelets (Bld) [#/Vol] 284.0 E9/L Normal 150.0-500.0 [facility] Comment on above: Performed By: #### 2 438112, 5192987, [id number] #### [facility] [address] [place] [address] RBC (Bld) [#/Vol] 3.9 E12/L Low 4.3-5.9 [facility] Comment on above: Performed By: #### 2 781243, 7832700, [id number] #### [facility] [address] [place] [address] WBC corrected for nucl RBC Auto (Bld) [#/Vol] 9.4 E9/L Normal 4.0-11.0 [facility] Comment on above: Performed By: #### 2 721528, 2558977, [id number] #### [facility] [address] [place] [address] Consent for Treatmenton 05-19 Consent for Treatment [id number] #1.00CD:127 Normal [facility] Gest Scr Glu 1 Hron 06-03-19 Glucose [Mass/Vol] 150 mg/dL High 55-140 [facility] Comment on above: Result Comment: Posi tive Screen =1 HR > 140mg/dL Performed By: #### 2 213748, 3829892, [id number] #### [facility] [address] [place] [address] Ambulatory Clinical Summaryo n 2020 Ambulatory Clinical Summary {[id number] [id number]}CD:[id number] Normal [facility] Obstetrics Office/Clinic Not jasmine 2020 Obstetrics Office/Clinic Note Chief Complaint OB 29w 5d, baby moving, patient doing 28 week labs done this Obstetric History History (1,0,0,2) # 1 Baby 1 Outcome Date: 2008 Outcome: Live Outcome or Result: Vaginal Gender: Female Gest Age: 41 weeks Wt: 3232 g Hospital: [facility] Labor: -- Child's Name: -- Baby's [...] trimester) Ordered: Office Visit Level 4 Est 67865 [facility] Follow Up US Follow Up 2. Obesity complicating , third trimester (O99.213: Obesity complicating , third trimester) Ordered: Office Visit Level 4 Est 18592 [facility] Follow Up Follow Up 3. Depression during (O99.340: Other mental disorders complicating , unspecified trimester) Ordered: Office Visit Level 4 Est 12305 [facility] Follow Up US Follow Up 4. 29 weeks gestation of (Z3A.29: 29 weeks gestation of ) Ordered: Office Visit Level 4 Est 12888 [facility] Follow Up Follow Up Follow-up With When Contact Information Funmilayo ESCOBEDO MD In [address] [place] [address]- Additional Instructions: Problem List/Past Medical History [...] Protein Urine Dipstick: Negative (05/31/20 14:25:00) Normal [facility] Comment on above: Result Comment: Elec [...] including vitamins, herbs, eye drops, creams, and shzk-kbt-sfcrrwe medicines. ? Any blood disorders you have. [...] This inform (more content not included)... Normal [facility] RAD - Ultrasound Reporton RAD - Ultrasound Report [id number] [id number]# 1.00CD:127 Normal [facility] Coding Summary.on 05-17-2020 Coding Summary. CODING DATE: 05/16/2020 FINAL [facility] STATUS: Home (Routine DC) PAYOR: [place] ADMIT DX: REASON FOR VISIT DX: O09.92 [...] [facility] Date Saved: 05/16/2020 11:17 pm [facility] C Urineon 05-13-2020 Bacteria identified Cx Nom (U) Microbiology PROCEDURE: Urine Culture [R1] SOURCE: U Random BODY SITE: COLLECTED DATE/TIME: 05/11/2020 10:37 EDT RECEIVED DATE/TIME: 05/11/2020 19:08 EDT START DATE/TIME: 05/11/2020 19:08 EDT FREE TEXT SOURCE: Caroline HILARIO, Caroline FINAL REPORTS Final Report [] Verified Date/Time: 05/13/2020 08:25 EDT 4,000 cfu/ml Mixed skin contaminants Performing Locations R1: This test was performed at: [facility], [address] [place] [address], [employer]- , , [facility] Comment on above: Performed By: #### 2 [address] ####[place] [address] Ambulatory Clinical Summaryo n 05-11-2020 Ambulatory Clinical Summary {[id number]}CD:668248 [facility] Obstetrics Office/Clinic Not jamsine 05-11-2020 Obstetrics Office/Clinic Note Chief Complaint OB visit 26 weeks 6 days. Leg Pain, Has alot of anxiety. Tired all the time. 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 Obstetric History History (1,0,0,2) # 1 Baby 1 Outcome Date: 2008 Outcome: Live Outcome or Result: Vaginal Gender: Female Gest Age: 41 weeks Wt: 3232 g Hospital: [facility] Labor: -- Child's Name: -- Baby's Father: [...] far. Ordered: Office Visit Level 3 Est 43128 [place] 2. Depression during (O99.340: Other mental disorders complicating , unspecified trimester) Doing meditation. Ordered: Office Visit Level 3 Est 41630 [place] 3. Supervision of high risk in [...] 1 Hour Office Visit Level 3 Est 44594 [place] Urine Culture 4. 26 weeks gestation of (Z3A.26: 26 weeks gestation of ) Ordered: Office Visit Level 3 Est 83425 [place] Follow-up With When Contact Information [facility] [place] In [address] [place] [address]- Additional Instructions: Problem List/Past Medical History Ongoing [...] Smokeless Toba (more content not included)... Normal [facility] Comment on above: Result Comment: Dillon [...] Petroleum jelly. ? 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 ? 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 Health and safety ? Rectal thermometer. [...] ? Consumer Product Safety Commission: www.cpsc.gov ? [place] [employer]: www.healthychildren. org ? Safe [...] Reviewed: 12/25/2017 Elsevier Patient Education ? 2019 [employer] [facility] Coding Summary.on 04-29-2020 Coding Summary. CODING DATE: 04/28/2020 [facility] STATUS: Home (Routine DC) PAYOR: [place] ADMIT DX: REASON FOR VISIT DX: O09.92 [...] [facility] Date Saved: 04/28/2020 10:33 pm [facility] Coding Summary.on 04-27-2020 Coding Summary. CODING DATE: 04/27/2020 [facility] STATUS: Home (Routine DC) PAYOR: [place] ADMIT DX: REASON FOR VISIT DX: Z34.82 [...] [facility] Date Saved: 04/27/2020 10:53 am [facility] Nursing Assessmenton 021 Nursing Assessment [id number] #1.00CD:127 [facility] C Urineon 04-23-2020 Bacteria identified Cx [...] Locations R1: This test was performed at: [facility], [address] [place] [address], [facility] , , [facility] Comment on above: Performed By: #### 2 431876, 8780078, [id number] #### [facility] [address] [place] [address] Consent for Treatmenton Consent for Treatment [id number] #1.00CD:127 [facility] Consent for Treatment [id number] 30 [id number] #1.00CD:127 [facility] Discharge Instructionson Discharge Instructions [id number] [id number] #1.00CD:127 [facility] Inpatient Clinical Summaryon 04-21-2020 Inpatient Clinical Summary [address] [address] Clinical Summary Person Information Name: MYA MYLES [place] Age: 29 Years : 1990 Sex: Female PCP: Chao Blackwell III, DO Marital Status: Single Race: White Ethnicity: Non- or Language: Trinidadian Visit Id: Visit Reason: Speciality: Acuity: Enc Type: OB Triage Med Service: Obstetrics Arrival: 04/21/2020 15:56:05 Discharge: 04/21/2020 17:47:48 Dispo Type: Home (Routine DC) Address: [address] [place] [address] [place] [id number] Provider Notes: Diagnosis: Problems Active Depression during [...] Follow up: With: Address: When: Funmilayo [place] [address] Business (1) 05/12/2020 9:00 AM Comments: Call for any problems. Type Location Start Finish [facility] [place] 05/12/2020 9:00 AM 05/12/2020 9:15 AM Confirmed Patient Education Information: Normal [facility] Inpatient Patient Summaryon 04-21-2020 Inpatient Patient Summary [address] [address] Patient Discharge Instructions PERSON INFORMATION Name: MYLESMYA [...] up: With: Address: When: Funmilayo ESCOBEDO [address] [place], [place] [id number] Business (1) 05/12/2020 9:00 AM Comments: Call for any problems. In the event that this physician does not participate in your insurance network, please consult with your insurance company to find a nearby participating provider. Type Location Start Finish [facility] 05/12/2020 9:00 AM 05/12/2020 9:15 AM [...] Leaflets: You may receive a survey from [employer] asking you to rate your care experience. Your feedback is important and will help us understand what we do well and how we can improve the quality of care we provide to you, your loved ones and our community. It?s an honor to serve you. Thank you for choosing [facility] Normal [facility] Insurance Correspondence Off iceon 04-21-2020 Insurance Correspondence Office [id number] #1.00CD:127 Normal [facility] RAD - Ultrasound Reporton RAD - Ultrasound Report [id number] [id number] #1.00CD:127 Normal [facility] UA With Cult Reflexon 2020 Bacteria LM Ql (Urine sed) 1+ /HPF Abnormal Trace [facility] Comment on above: Performed By: #### 2 905857, 9610336, [id number] #### [facility] [address] [place] [address] Bilirubin Ql (U) Negative Normal Negative [facility] Comment on above: Performed By: #### 2 794503, 0784266, [id number] #### [facility] [address] [place] [address] Clarity (U) CLEAR Normal Clear [facility] Comment on above: Performed By: #### 2 050523, 9781957, [id number] #### [facility] [address] [place] [address] Color (U) YELLOW Normal Yellow [facility] Comment on above: Performed By: #### 2 098617, 0778383, [id number] #### [facility] [address] [place] [address] Epithelial cells.squamous LM.HPF (Urine sed) [#/Area] 3-4 Normal 0-2 [facility] Comment on above: Performed By: #### 2 761919, 0191010, [id number] #### [facility] [address] [place] [address] Glucose Test strip (U) [Mass/Vol] Negative Normal Negative [facility] Comment on above: Performed By: #### 2 859729, 7464349, [id number] #### [facility] [address] [place] [address] Hemoglobin Ql (U) Negative Normal Negative [facility] Comment on above: Performed By: #### 2 257508, 5169783, [id number] #### [facility] [address] [place] [address] Ketones (U) [Mass/Vol] 1+ Abnormal Negative [facility] Comment on above: Performed By: #### 2 230359, 3445356, 230866941 #### [facility] [address] [place] [address] [place].plasma/[place]. RBC (Bld) [Mass ratio] 0-3 Normal 0-3 [facility] Comment on above: Performed By: #### 2 704373, 5122076, [id number] #### [facility] [address] [place] [address] Nitrite Ql (U) Negative Normal [facility] Comment on above: Performed By: #### 2 260659, 1698725, [id number] #### [facility] [address] [place] [address] pH (U) 7.0 [pH] Invalid Interpretation Code 5.0-9.0 [facility] Comment on above: Performed By: #### 2 936094, 4077203, [id number] #### [facility] [address] [place] [address] Protein (U) [Mass/Vol] Negative Normal Negative [facility] Comment on above: Performed By: #### 2 615763, 9620888, [id number] #### [facility] [address] [place] [address] Specific gravity (U) [Rel density] 1.010 Invalid Interpretation Code 1.005-1.030 [facility] Comment on above: Performed By: #### 2 310043, 9663608, [id number] #### [facility] [address] [place] [address] UA Spec Desc Clean Catch Normal [facility] Comment on above: Performed By: #### 2 963744, 2626640, [id number] #### [facility] [address] [place] [address] Urobilinogen Qn (U) 0.2 {Henny'U}/dL Normal 0.0-1.0 [facility] Comment on above: Performed By: #### 2 813955, 3480630, [id number] #### [facility] [address] [place] [address] WBC Auto Ql (U) 1+ Abnormal Negative [facility] Comment on above: Performed By: #### 2 607781, 5204451, [id number] #### [facility] [address] [place] [address] WBC LM.HPF (Urine sed) [#/Area] 0-5 Normal 0-5 [facility] Comment on above: Performed By: #### 2 134028, 8029057, [id number] #### [facility] [address] [place] [address] C Urineon 04-18-2020 Bacteria identified Cx Nom [...] Locations R1: This test was performed at: [facility], [address] [place] [address], [facility] , , [facility] Comment on above: Performed By: #### 2 348797 ####[facility] [address] [place] [address] Obstetrics Office/Clinic Not jasmine 04-18-2020 Obstetrics Office/Clinic Note Chief Complaint OB 21w 5d, baby moving Obstetric History History (1,0,0,2) # 1 Baby 1 Outcome Date: 2008 Outcome: Live Outcome or Result: Vaginal Gender: Female Gest Age: 41 weeks Wt: 3232 g Hospital: [facility] Labor: -- Child's Name: -- Baby's [...] trimester) Ordered: Office Visit Level 4 Est 65525 [place] 2. Obesity complicating , second trimester (O99.212: Obesity complicating , second trimester) Ordered: Office Visit Level 4 Est 93093 [place] 3. 21 weeks gestation of (Z3A.21: 21 weeks gestation of ) Ordered: Office Visit Level 4 Est 88364 [place] 4. Depression during (O99.340: Other mental disorders complicating , unspecified trimester) Ordered: Office Visit Level 4 Est 38457 [place] Follow-up With When Contact Information Funmilayo ESCOBEDO MD In [address] [place] [address]- Additional Instructions: Problem List/Past Medical History [...] pts pharmacy. Spoke with pt. 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 Will repeat urine cx at next visit. Kendal Escobedo MD [facility] Comment on above: Result Comment: [...] Locations R1: This test was performed at: [facility], [address] [place] [address], [address]- , [place], Normal [facility] Comment on above: Performed By: #### 2 560154 ####[facility] [address] [place] [address] HIV Screen 4th Generation wR fxon 04-16-2020 HIV 1+2 Ab+HIV1 p24 Ag IA Ql Non-Reactive Invalid Interpretation Code Non Reactive [facility] Comment on above: Result Comment: Perf ormed at: [address] [id number] PhD Lanette Dunn Performed By: #### 2 041455, 1125761, [id number] #### [facility] [address] [place] [address] Hep Bs Agon 04-16-2020 HBV surface Ag IA Ql Negative Invalid Interpretation Code Negative [facility] Comment on above: Result Comment: Perf ormed at: [address] [id number] PhD Lanette Dunn Performed By: #### 2 [id number] #### [facility] [address] [place] [id number] Coding Summary.on 04-15-2020 Coding Summary. CODING DATE: 04/15/2020 FINAL [facility] STATUS: Home (Routine DC) PAYOR: [place] ADMIT DX: REASON FOR VISIT DX: O09.91 [...] Vannesa Date Saved: 04/15/2020 09:18 am Normal [facility] RPRon 04-15-2020 Reagin Ab RPR Ql (S) Non-Reactive Normal Non-Reactive [facility] Comment on above: Performed By: #### 9 [id number] ####[facility] [address] [place] [address] ABO/Rhon 04-14-2020 ABO/Rh Positive Invalid Interpretation Code [facility] Comment on above: Performed By: #### 2 [id number] #### [facility] [address] [place] [address] ABSCon 04-14-2020 ABSC Gel Interp Negative Normal [facility] Comment on above: Performed By: #### 2 [id number] #### [facility] [address] [place] [address] Ambulatory Clinical Summaryo n 04-14-2020 Ambulatory Clinical Summary {[id number] Normal [facility] Auto Diffon 04-14-2020 Basophils/100 WBC (Bld) 0.3 % Normal 0.0-2.0 [facility] Comment on above: Order Comment: Order Added by Discern Expert. Performed By: #### 2 [id number], [id number], [id number] #### [facility] [address] [place] [address] Basophils/Leukocytes Auto (Bld) [Pure # fraction] 0.0 E9/L Normal 0.0-0.2 [facility] Comment on above: Order Comment: Order Added by Discern Expert. Performed By: #### 2 809541, 6999920, [id number] #### [facility] [address] [place] [address] Eosinophils/100 WBC (Bld) 0.3 % Normal 0.0-8.0 [facility] Comment on above: Order Comment: Order Added by Idalia Expert. Performed By: #### 2 858755, 2430561, [id number] #### [facility] [address] [place] [address] Eosinophils/Leukocytes Auto (Bld) [Pure # fraction] 0.0 E9/L Normal 0.0-0.5 [facility] Comment on above: Order Comment: Order Added by Discern Expert. Performed By: #### 2 997223, 5370921, [id number] #### [facility] [address] [place] [address] Lymphocytes/100 WBC (Bld) 19.1 % Normal 14.0-50.0 [facility] Comment on above: Order Comment: Order Added by Idalia Expert. Performed By: #### 2 078253, 5777433, [id number] #### [facility] [address] [place] [address] Lymphocytes/Leukocytes Auto (Bld) [Pure # fraction] 1.4 E9/L Normal 1.0-4.0 [facility] Comment on above: Order Comment: Order Added by Idalia Expert. Performed By: #### 2 854206, 3964247, [id number] #### [facility] [address] [place] [address] Monocytes/100 WBC (Bld) 6.4 % Normal 4.0-14.0 [facility] Comment on above: Order Comment: Order Added by Idalia Expert. Performed By: #### 2 605928, 6152955, [id number] #### [facility] [address] [place] [address] Monocytes/Leukocytes Auto (Bld) [Pure # fraction] 0.5 E9/L Normal 0.2-1.0 [facility] Comment on above: Order Comment: Order Added by Idalia Expert. Performed By: #### 2 942485, 6348656, [id number] #### [facility] [address] [place] [address] Neutrophils/100 WBC (Bld) 73.9 % Normal 36.0-75.0 [facility] Comment on above: Order Comment: Order Added by Discern Expert. Performed By: #### 2 405768, 4824359, [id number] #### [facility] [address] [place] [address] Neutrophils/Leukocytes Auto (Bld) [Pure # fraction] 5.3 E9/L Normal 2.0-7.5 [facility] Comment on above: Order Comment: Order Added by Discern Expert. Performed By: #### 2 655433, 2921453, [id number] #### [facility] [address] [place] [address] BhCG Quanton 04-14-2020 [place] [address] m[IU]/mL High 1-3 [facility] Comment on above: Result Comment: GEST ATIONAL AGE HCG RANGE (mIU/mL) NON- <1-3 0.2-1 WEEKS 5-50 1-2 WEEKS 50-500 2-3 WEEKS 100-5,000 3-4 WEEKS 500-10,000 4-5 WEEKS 1,000-50,000 5-6 WEEKS 10,000-100,000 6-8 WEEKS 15,000-200,000 8-12 WEEKS 10,000-100,000 Performed By: #### 2 080198 #### [facility] [address] [place] [address] CBC w/ Auto Diffon Erythrocyte distribution width (RBC) [Ratio] 13.0 % Normal 10.9-14.2 [facility] Comment on above: Performed By: #### 2 920657, 4538486, [id number] #### [facility] [address] [place] [address] Hematocrit (Bld) [Volume fraction] 34.6 % Normal 34.0-46.0 [facility] Comment on above: Performed By: #### 2 209831, 8399416, [id number] #### [facility] [address] [place] [address] Hemoglobin (Bld) [Mass/Vol] 11.6 g/dL Low 12.0-16.0 [facility] Comment on above: Performed By: #### 2 609168, 4325376, [id number] #### [facility] [address] [place] [address] MCH (RBC) [Entitic mass] 29.8 pg Normal 27.0-34.0 [facility] Comment on above: Performed By: #### 2 113601, 1831713, [id number] #### [facility] [address] [place] [address] MCHC (RBC) [Mass/Vol] 33.4 g/dL Normal 31.4-36.0 [facility] Comment on above: Performed By: #### 2 530959, 8898418, [id number] #### [facility] [address] [place] [address] MCV (RBC) [Entitic vol] 89.2 fL Normal 80.0-100.0 [facility] Comment on above: Performed By: #### 2 567343, 7070010, [id number] #### [facility] [address] [place] [address] Platelet mean volume (Bld) [Entitic vol] 7.8 fL Normal 6.4-10.8 [facility] Comment on above: Performed By: #### 2 650354, 4314766, [id number] #### [facility] [address] [place] [address] Platelets (Bld) [#/Vol] 326.0 E9/L Normal 150.0-500.0 [facility] Comment on above: Performed By: #### 2 242069, 6734560, [id number] #### [facility] [address] [place] [address] RBC (Bld) [#/Vol] 3.9 E12/L Low 4.3-5.9 [facility] Comment on above: Performed By: #### 2 207978, 5145216, [id number] #### [facility] [address] [place] [address] WBC corrected for nucl RBC Auto (Bld) [#/Vol] 7.2 E9/L Normal 4.0-11.0 [facility] Comment on above: Performed By: #### 2 423700, 7181826, [id number] #### [facility] [address] [place] [address] Consent for Treatmenton 03-22 Consent for Treatment [id number] #1.00CD:127 Normal [facility] YghW2aaj 04-14-2020 HbA1c (Bld) [Mass fraction] 4.8 % Normal <=5.9 [facility] Comment on above: Performed By: #### 2 659321, 0018603, [id number] #### [facility] [address] [place] [address] Patient Educationon 04-14-19 21 Patient Education How [...] Document Reviewed: 07/23/2008 ExitCare? Patient Information ?2013 Let. Obstetrics and Gynecology Eating Plan for Women [...] your (t (more content not included)... Normal [facility] U Drug Screenon 04-14-2020 Amphetamines Screen method >1000 ng/mL Ql (U) Negative Normal Negative [facility] Comment on above: Result Comment: Nega tive Cutoff: <1000 ng/mL Performed By: #### 2 720059 #### [facility] [address] [place] [address] Barbiturates Screen Ql (U) Negative Normal Negative [facility] Comment on above: Result Comment: Nega tive Cutoff: <200 ng/mL Performed By: #### 2 359473 #### [facility] [address] [place] [address] Benzodiazepines Ql (U) Negative Normal Negative [facility] Comment on above: Result Comment: Nega tive Cutoff: <200 ng/mL Performed By: #### 2 825852 #### [facility] [address] [place] [address] Cocaine Ql (U) Negative [facility] Comment on above: Result Comment: Nega tive Cutoff: <300 ng/mL Performed By: #### 2 926128 #### [facility] [address] [place] [address] Opiates Screen Ql (U) Negative Normal Negative [facility] Comment on above: Result Comment: Nega tive Cutoff: <300 ng/mL Performed By: #### 2 966008 #### [facility] [address] [place] [address] Phencyclidine Screen method >25 ng/mL Ql (U) Negative Normal Negative [facility] Comment on above: Result Comment: Nega tive Cutoff: <25 ng/mL These drug screen results are to be used for medical (i.e., treatment) purposes only. Unconfirmed drug screening results must not be used for non-medical purposes (e.g., employment testing, legal testing). Performed By: #### 2 252975 #### [facility] [address] [place] [address] Tetrahydrocannabinol Screen method >50 ng/mL Ql (U) Negative Normal Negative [facility] Comment on above: Result Comment: Nega tive Cutoff: <50 ng/mL Performed By: #### 2 558355 #### [facility] [address] [place] [address] RAD - Ultrasound Reporton RAD - Ultrasound Report [id number] #1.00CD:127 Normal [facility] Lab Reportson 03-14-2020 Lab Reports [id number] #1.00CD:127 Normal [facility] Ambulatory Clinical Summaryo n 02-29-2020 Ambulatory Clinical Summary {[id number]}CD:[id number] Normal [facility] Ambulatory Clinical Summary {[id number]}CD:287677 Normal [facility] Obstetrics Office/Clinic Not jasmine 02-29-2020 Obstetrics Office/Clinic Note Chief Complaint OB 15w 2d, feeling flutters, occ. [place] Obstetric History History (1,0,0,2) # 1 Baby 1 Outcome Date: 2008 Outcome: Live Outcome or Result: Vaginal Gender: Female Gest Age: 41 weeks Wt: 3232 g Hospital: [facility] Labor: -- Child's Name: -- Baby's [...] trimester) Ordered: Office Visit Level 4 Est 64607 TH 2. Obesity complicating , second trimester (O99.212: Obesity complicating , second trimester) Ordered: Office Visit Level 4 Est 33925 TH 3. 15 weeks gestation of (Z3A.15: 15 weeks gestation of ) Ordered: Office Visit Level 4 Est 47818 TH Follow-up With When Contact Information Funmilayo ESCOBEDO MD In [address] [place] [address]- Additional Instructions: Problem List/Past Medical [...] Protein Urine Dipstick: Negative (02/29/20 15:46:00) Normal [facility] Comment on above: Result Comment: Elec [...] 02/04/2006 Document Revised: 04/28/2012 Document Reviewed: 05/19/2009 Ringers[employer]Care? Patient Information ?2013 Let. Family Medicine How a Baby Grows During [...] flex an (more content not included)... Normal [facility] Physician Referralon 021 Physician Referral [id number] #1.00CD:127 Normal [facility] RAD - Ultrasound Reporton RAD - Ultrasound Report [id number] [id number] #1.00CD:127 Normal [facility] Physician Referralon 020 Physician Referral [id number] #1.00CD:127 Normal [facility] Physician Referralon 020 Physician Referral [id number] #1.00CD:127 Normal [facility] Chlamydia/Gonococcus, NAAon 01-30-2020 C. trachomatis rRNA KAIDEN+probe Ql (Unsp spec) Negative Invalid Interpretation Code Negative [facility] Comment on above: Performed By: #### 2 934734, 8533095, [id number] #### [facility] [address] [place] [address] N. gonorrhoeae rRNA KAIDEN+probe Ql (Unsp spec) Negative Invalid Interpretation Code Negative [facility] Comment on above: Result Comment: Perf ormed at: =G [facility] [place] [id number] MD Kehinde Rivero Performed By: #### 2 854979, 7394536, [id number] #### [facility] [address] [place] [address] Coding Summary.on 01-29-2020 Coding Summary. CODING DATE: 01/29/2020 FINAL [facility] STATUS: Home (Routine DC) PAYOR: Self [...] Garcia Date Saved: 01/29/2020 01:52 pm Normal [facility] Ambulatory Clinical Summaryo n 01-27-2020 Ambulatory Clinical Summary {[id number]}CD:[id number] Normal [facility] Obstetrics Office/Clinic Not jasmine 01-27-2020 Obstetrics Office/Clinic Note Chief Complaint 1st OB 10 Weeks 4 days. Some Nausea. Obstetric History History (1,0,0,2) # 1 Baby 1 Outcome Date: 2008 Outcome: Live Outcome or Result: Vaginal Gender: Female Gest Age: 41 weeks Wt: 3232 g Hospital: [facility] Labor: -- Child's Name: -- Baby's [...] drug use. Last pap 2, NILM. 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 Review of Systems Constitutional: No fever, No [...] during or after office hours. Referral to [facility] and will defer to them for genetic testin (more content not included)... Normal [facility] Comment on above: Result Comment: Elec [...] Document Reviewed: 07/23/2008 ExitCare? Patient Information ?2014 Let. [facility] Patient Letter FTon 2019 Patient Letter [facility] January 27, [address] [place] [address] [facility] [address] MYA MYLES 1990 Our patient Mya Myles is with a single IUP. EDC is 08/20/[address] [address] [facility] Coding Summary.on 01-22-2020 Coding Summary. CODING DATE: 01/22/2020 FINAL [facility] STATUS: Home (Routine DC) PAYOR: Self [...] Gloria Fleming Date Saved: 01/22/2020 08:46 am [facility] US 1st Trimesteron 01-11-2020 US 1st [...] corresponding gestational age +/- 1 week are: [place] Rump Length: 1.8 cm Composite Ultrasound Age: [...] Transabdominal Ultrasound Performed Size = Dates Normal [facility] Ambulatory Clinical Summaryo n 01-07-2020 Ambulatory Clinical Summary {[id number]}CD:[id number] Normal [facility] Ambulatory Clinical Summaryo n 01-06-2020 Ambulatory Clinical Summary {[id number]}CD:[id number] Normal [facility] BhCG Quanton 01-06-2020 HCG.beta subunit Qn 566868 m[IU]/mL High 1-3 [facility] Comment on above: Result Comment: GEST ATIONAL AGE HCG RANGE (mIU/mL) NON- <1-3 0.2-1 WEEKS 5-50 1-2 WEEKS 50-500 2-3 WEEKS 100-5,000 3-4 WEEKS 500-10,000 4-5 WEEKS 1,000-50,000 5-6 WEEKS 10,000-100,000 6-8 WEEKS 15,000-200,000 8-12 WEEKS 10,000-100,000 Performed By: #### 2 184479, 6572266, [id number] #### [facility] [address] [place] [address] Consent for Treatmenton 12-19 Consent for Treatment [id number] #1.00CD:127 Normal [facility] Gynecology Office/Clinic Not jasmine 01-06-2020 Gynecology Office/Clinic Note Chief Complaint Confirmation of , Nausea Some Vomitting. Has had Dark pink Spotting, First OB paper work added . Obstetric History History (1,0,0,2) # 1 Baby 1 Outcome Date: 2008 Outcome: Live Outcome or Result: Vaginal Gender: Female Gest Age: 41 weeks Wt: 3232 g Hospital: [facility] Labor: -- Child's Name: -- Baby's [...] order subsequent US. Plan to refer to [facility] d/t hx child with congenital lymphedema. [...] test, result positive) Ordered: HCG, Urine POC 80385 Follow-up No qualifying data available Problem List/Past [...] Results HCG, Urine: Positive (01/06/20 09:31:00) Normal [facility] Comment on above: Result Comment: Elec tronically Signed By: RHONDA DICKEY, Caroline\.br\Date and Time Signed: 01/06/20 10:17 EST Progesteroneon 01-06-2020 Progesterone [Mass/Vol] 18.00 ng/mL Invalid Interpretation Code [facility] Comment on above: Result Comment: REFE RENCE RANGE Males 0.14-2.06 ng/mL Non- Females Follicular 0.10-0.60 ng/mL Luteal 3.00-17.5 ng/mL Midluteal 3.30-18.6 ng/mL Post-Menopausal 0.10-0.40 ng/mL First Trimester 8.30-66.5 ng/mL Second Trimester 18.9-66.1 ng/mL Third Trimester 35.8-312.4 ng/mL Performed By: #### 2 842540, 5969765, [id number] #### [facility] [address] [place] [address] Coding Summary.on 12-14-2019 Coding Summary. CODING DATE: 12/14/2019 FINAL [facility] STATUS: Home (Routine DC) PAYOR: Self [...] Garcia Date Saved: 12/14/2019 02:13 pm Normal [facility] ED Note-Physicianon 12-14-19 ED Note-Physician Basic Information Time Seen: Gege Love PA-C 12/13/2019 19:14 Chief Complaint pt to ED with c/o consuming plastic from a burger at [employer] today. pt is . denies complaints History of Present Illness This patient presents emergency department after ingesting some type of plastic while eating a sandwich at [employer]. She states she was at [employer] restaurant. She bit down on something hard [...] Blackwell In 3 days 12/16/2019 EDT [address] [id number] [facility] (1) Additional Instructions: Patient Education Swallowed Foreign Body, Adult, Uhbn-cv-Bate Problem List/Past Medical History Ongoing Ovarian cyst Historical Medications Inpatient No active inpatient medications Home Bactroban 2% Cream, 1 ced, Topical, TID Allston 325 mg-5 mg oral tablet, 1 tab(s), Oral, q4hr, PRN Allergies No Known Allergies Social History Alcohol - Denies Alcohol Use, 11/21/2009 Substance Abuse - Denies Substance Abuse, 11/21/2009 Tobacco - Denies Tobacco Use, 11/21/2009 Family History Diabetes mellitus type 2: Mother and Father. Hypertension: Mother and Father. Lab Results No qualifying data available. Diagnostic Results No qualifying data available. Normal [facility] Comment on above: Result Comment: Elec tronically Signed By: Gege Love PA-C\.br\Date and Time Signed: 12/13/19 19:34 EDT\.br\Electronically Co-Signed By: Ed Jerome MD\.br\Date and Time Co-Signed: 12/14/19 05:14 EDT Consent for Treatmenton 11-19 Consent for Treatment [id number] #1.00CD:127 Normal [facility] Discharge Instructionson Discharge Instructions [id number]#1.00CD:127 Normal [facility] ED Clinical Summaryon 2019 ED Clinical Summary [place] [id number] ED Clinical Summary Person Information Name: MYA MYLES [facility] Age: 29 Years : 1990 Sex: Female Language: Trinidadian PCP: Chao Blackwell III, DO Marital Status: [...] 12/13/2019 19:44:03 12/13/2019 19:44:03 12/13/2019 19:44:03 ADDRESS: [address] [place] [address] [address] [place] [place] [id number] PHYS DOC NOTES: MEDICAL INFORMATION: Prescriptions Given: Medications to Continue with No Changes Other Medications acetaminophen-hydroc odone (Allston 325 mg-5 mg oral tablet) 1 Tablets By Mouth every 4 hours as needed for pain. Refills: 0. mupirocin topical (Bactroban 2% Cream) 1 Application Topical 3 times a day. Refills: 0. PATIENT EDUCATION INFORMATION: Instructions: Swallowed Foreign Body, Adult, Escp-oo-Fhui Follow up: With: Address: When: Chao Blackwell [address] [place] [address], [facility] [place] [id number] Business (1) In 3 days 12/16/2019 DIAGNOSIS: 1:Ingestion of foreign body Normal [facility] ED Patient Education Noteon 12-13-2019 ED [...] Document Reviewed: 05/22/2011 ExitCare? Patient Information ?2015 Let. This information is not intended to replace advice given to you by your health care provider. Make sure you discuss any questions you have with your health care provider. Normal [facility] ED Patient Summaryon 020 ED Patient Summary [place] [id number] Patient Discharge Instructions Person Information Name: MYA MYLES Age: 29 Years Arrival Date: 12/13/2019 18:29:24 Discharge Diagnosis: 1:Ingestion of foreign body Primary Care Physician: Chao Blackwell III, DO Provider Information Primary Provider: Advanced Quantitative Research Analyst:None The exam and treatment you received in the Emergency Department were for an urgent problem and are not intended as complete care. It is important that you follow up with a doctor, nurse practitioner, or physician?s pest controller assistant for ongoing care. If your symptoms [...] Follow-up Instructions: With: Address: When: Chao Blackwell [address] [place] [address], [place] [address] [employer] (1) In 3 days 12/16/2019 In the event that this physician does not participate in your insurance network, please consult with your insurance company to find a nearby participating provider. Patient Education Materials: Swallowed Foreign Body, Adult, Eomp-ha-Fpwx A MESSAGE TO ALL PATIENTS REGARDING OPIOIDS PRESCRIPTION OPIOIDS: WHAT YOU NEED TO KNOW Prescription opioids can be used to help relieve htojhrpw-wf-juugfn pain and are often prescribed following a [...] be struggling with addiction, tell your health career development facilitator and ask for guidance or call [employer]?S National Helpline at 8-356-429-UCHT. (more content not included)... Normal [facility] Vital Signs Date Time Vital Sign Value Performing Clinician Rene hernandez 11-27-2023 15:35-0400 Body mass index (BMI) [Ratio] 34.57 kg/m2 Catherine TRACY Work Phone: [facility] 11-27-2023 15:35-0400 Body weight 85.73 kg Catherine TRACY Work Phone: [facility] 11-27-2023 15:35-0400 Diastolic blood pressure 76 mm[Hg] Catherine TRACY Work Phone: [facility] 11-27-2023 15:35-0400 Systolic blood pressure 114 mm[Hg] Catherine TRACY Work Phone: [facility] Healthcare Encounters Encounter Date Encounter Type Care Provider Facility Start: 12-09-2023 End: 12-09-2023 Telephone encounter Shoshana Berlinantony [facility] Start: 12-06-2023 End: 12-06-2023 Telephone encounter Shoshana Sladegiannicydney [facility] Start: 12-04-2023 End: 12-04-2023 Office consultation new/estab patient 40 min Alysia Lee MD Work Phone: [facility] Comment on above: Obesity affecting pr egnancy in second trimester, unspecified obesity type (Primary Dx); Polyhydramnios, antepartum, single or unspecified fetus Start: 12-04-2023 End: 12-04-2023 ambulatory [facility] Start: 11-27-2023 End: 11-27-2023 ambulatory CATHERINE BAEZA Not Available Start: 11-27-2023 End: 11-27-2023 flow sheet Catherine TRACY Work Phone: [facility] Comment on above: 32 weeks gestation o f ; Third trimester ; Dysuria Start: 11-27-2023 End: 11-27-2023 Bamboo flowsheet Catherine TRACY Work Phone: [facility] Start: 11-27-2023 End: 11-27-2023 Bamboo flowsheet Catherine TRACY Work Phone: [facility] Start: 11-14-2023 End: 11-14-2023 ambulatory DEVEN CHRISTY Not Available Start: 10-24-2023 End: 10-24-2023 ambulatory DEVEN CHRISTY Not Available Start: 10-08-2023 End: 10-08-2023 ambulatory DEVEN R CHRISTY [facility] Start: 09-09-2023 End: 09-09-2023 ambulatory CATHERINE BAEZA Not Available Start: 09-06-2023 End: 09-06-2023 ambulatory DEVEN GOODE [facility] Start: 08-12-2023 End: 08-12-2023 ambulatory DEVEN BROOKSZIO Not Available Start: 07-30-2023 End: 07-30-2023 ambulatory LADONNA CEBALLOS Not Available Start: 07-08-2023 End: 07-08-2023 ambulatory DEVEN CHRISTY Not Available Start: 06-07-2023 End: 06-07-2023 ambulatory DEVEN CHRISTY Not Available Start: 05-17-2022 End: 05-18-2022 ambulatory [...] Author Start: 12-03-2024 Tobacco Screening Tobacco Screening [facility] Start: 09-05-2024 Adult BMI Screening Adult BMI Screen ing [facility] Start: 12-12-2023 End: 12-12-2023 Patient encounter procedure 12/12/2023 9:30 AM EDT Routine [facility] [address] [place] [address] Deven Goode, DO [address], [place] [id number] [facility] Start: 10-20-2023 Influenza vaccination Influenza Vacc ine [facility] Start: 10-20-2019 Influenza vaccination Flu vaccine (# 1) [place], [place] Start: 2013 Screening for malign ant neoplasm of cervix Pap Smear [facility] Start: 06-01-2011 DTaP,Tdap and Td Vaccines (1 - Tdap) DTaP,Tdap and Td Vaccines (1 - Tdap) [facility] Start: 2010 Adult BMI Follow Up Plan Adult BMI Follow Up Plan [facility] Start: 2004 [facility] B[facility] identified in Urine by Culture Urine culture Microbiology Routine Dysuria Ordered: 11/27/2023 [facility] Work Phone: Comment on above: Ordered: 11/27/2023 Payers Date Payer Category Payer Blue [employer] - Other ANTH [id number]. [id number] 2022 Unknown BCBS BCBS [id number] 2022-Present [id number] [place], [place] [id number]. [id number] 2022 Unknown [id number] 1992 Unknown [id number] 2.16.840.1.996563.3.579.2. 593 1992 Unknown [id number] 2.16.840.1.350893.3.579.2. 593 1992 Unknown [id number] 2.16.840.1.063690.3.579.2. 9 1992 Unknown [id number] 2.16.840.1.612862.3.579.2. 9 1992 Unknown [id number] 2.16.840.1.684806.3.579.2. 9 1992 Unknown [id number] 2.16.840.1.628946.3.579.2. 1258 1992 Unknown [id number] 2.16.840.1.544492.3.579.2. 9 1992 Unknown [id number] 2.16.840.1.609548.3.579.2. 1258 1992 Unknown [id number] 2.16.840.1.650360.3.579.2. 9 1992 Unknown [id number] 2.16.840.1.887941.3.579.2. 1258 1992 Unknown [id number] 2.16.840.1.098127.3.579.2. 1285 1992 Unknown [id number] 2.16.840.1.823851.3.579.2. 1285 1992 Unknown [id number] 2.16.840.1.178037.3.579.2. 1285 1992 Unknown [id number] 2.16.840.1.511864.3.579.2. 1285 1992 Unknown [id number] 2.16.840.1.799251.3.579.2. 1286 1959 Unknown [id number] Social History Date Type Detail Facility [facility] [place] Start: 1990 Sex Assigned At Not on file [place] Start: 07-30-2023 End: 09-06-2023 Tobacco smoking status AKIS Never smoked tobacco [facility] Start: 07-30-2023 End: 09-06-2023 Tobacco use and exposure Smokeless tobacco non-user [facility] Start: 07-30-2023 End: 12-04-2023 History of Social function [facility] Start: 07-30-2023 End: 12-04-2023 Tobacco use panel [facility] Start: 05-01-2023 [facility] Start: 12-04-2023 Alcoholic beverage intake Ex-drinker (finding) [facility] Within the past 12 months we worried whether our food would run out before we got money to buy more. Never True [facility] Start: 08-15-2023 Sex Female (finding) [facility] Clinical Notes 04-21-2020 to 12-09-2023 Telephone Encounter - [address] - 12/09/2023 2:20 PM EDTTelephone Encounter - [address] - 12/09/2023 2:20 PM EDTTelephone Encounter - [address] - 12/06/2023 10:23 AM EDT Note Date & Type Note Facility 12-09-2023 Miscellaneous Notes I LEFT A MESSAGE FOR PT TO CALL ME, I WILL CALL PT BACK TO SCHEDULE HER FOR A GROWTH U/S, ALSO A VIDEO VISIT WITH ONE OF THE DRS documented in this encounter [facility] 12-09-2023 Telephone encounter Note I LEFT A MESSAGE FOR PT TO CALL ME, I WILL CALL PT BACK TO SCHEDULE HER FOR A GROWTH U/S, ALSO A VIDEO VISIT WITH ONE OF THE DRS [facility] 12-06-2023 Miscellaneous Notes I LEFT A MESSAGE FOR PT TO CALL ME SO WE CAN SCHEDULE A GROWTH U/S. PT THINKS SHE ONLY NEEDS U/S AT PRIMARY OB OFFICE. CATHERINE Shahid SAID SHE NEEDS TO COME HERE. THANK YOU documented in this encounter [facility] 12-06-2023 Telephone encounter Note I LEFT A MESSAGE FOR PT TO CALL ME SO WE CAN SCHEDULE A GROWTH U/S. PT THINKS SHE ONLY NEEDS U/S AT PRIMARY OB OFFICE. CATHERINE Shahid SAID SHE NEEDS TO COME HERE. THANK YOU [facility] 12-04-2023 History of Presen t illness [...] mouth in the morning., Disp: , Rfl: [id number] acid ( 19) 29 mg iron- 1 [...] [facility] History of Presen t illness Narrative [...] Diagnosis Date ADHD (attention deficit hyperactivity disorder) ([facility]) HISTORY PAST MEDICAL HISTORY SOCIAL HISTORY Past Medical History: Diagnosis Date ADHD (attention deficit hyperactivity disorder) ([facility]) Social History Tobacco Use Smoking status: [...] Patient scheduled for US NEXT WEEK WITH M, orders for nst and bpp sent for starting Orders Placed This Encounter Procedures POCT urinalysis dipstick manually resulted Follow Up: Patient is to return to office in 2 weeks for routine OB appointment. Documented by Leah Mason on behalf of: DEMARCUS Ross documented in this encounter [facility] 08-16-2020 Note DATE OF DISCHARGE: 0 08/05/2020 [...] complications. Course: Without complications. Sukhdeep Schaffer MD, [facility], [place] Dictated: 08/13/2020 #[id number] Typed: 08/15/2020 #[id number] cc: Sukhdeep Schaffer MD, [facility] Comment on above: Result Comment: Elec tronically Signed By: Karime MACEDO, Sukhdeep Olivera\.br\Date and Time Signed: 08/16/20 08:09 EDT 08-05-2020 Note The following Patien t Education Materials have been given to the patient: EducationMaterial [facility] 08-04-2020 Note Patient: LAZARO MYLES Age: [...] Attention deficit hyperactivity disorder / SNOMED CT 8481735391 / Confirmed Chronic fatigue syndrome / SNOMED CT 64413684 / Confirmed Depression during / SNOMED CT 7007023257 / Confirmed Insomnia / SNOMED CT 495473778 / Confirmed Obesity / ICD-9-CM 278.00 / Possible Obesity complicating , third trimester / SNOMED CT 5520516006 / Confirmed Ovarian cyst / SNOMED CT 830291026 / Confirmed / SNOMED CT 886857849 / Confirmed labor / Patient Care / Confirmed Supervision of high risk in third trimester / SNOMED CT 28546871 / Confirmed Histories History History (1,0,0,2) # 1 Baby 1 Outcome Date: 2008 Outcome: Live Outcome or Result: Vaginal Gender: Female Gest Age: 41 weeks Wt: 3232 g Hospital: [facility] Labor: -- Child's Name: -- Baby's Father: -- # 2 Baby 1 Outcome Date: 05/26/2013 Outcome: Live Outcome or Result: Vaginal Gender: Male Gest Age: 39 weeks 3 days Wt: 3390 g Hospital: [facility] Labor: 5 hr 55 min Child's Name: -- Baby's Father: -- Complications: None Complications: None Family History: Hypertension Father Mother Diabetes mellitus type 2 Father Procedure history: No active procedure history items have been selected or recorded. 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 Home/Environment Lives with Children, Significant other. [...] hearing, Oral mu (more content not included)... [facility] Comment on above: Result Comment: Elec tronically Signed By: LAURA MACEDO, Funmilayo Ryan\.br\Date and Time Signed: 08/04/20 13:03 EDT 07-31-2020 Note The following Patien t Education Materials have been given to the patient: [facility] Note The following Patien t Education Materials have been given to the patient: [facility] 07-11-2020 Note HOSPITAL REGULATIONS : ALL Positive [...] for further cervical progression. Sukhdeep Schaffer MD, [facility], [place] Dictated: 07/08/2020 #[id number] Typed 07/08/2020 #[id number] cc: Sukhdeep Schaffer MD, [facility] Comment on above: Result Comment: Elec tronically Signed By: Karime MACEDO, Sukhdeep Olivera\.br\Date and Time Signed: 07/11/20 07:40 EDT 07-08-2020 Note The following Patien t Education Materials have been given to the patient: [facility] 04-21-2020 Note The following Patien t Education Materials have been given to the patient: [facility] Evaluation note Diagnosis 32 weeks gestation of Third trimester state, incidental Dysuria [facility] Obesity affecting in second trimester, unspecified obesity type- Primary Polyhydramnios, antepartum, single or unspecified fetus documented [facility] this encounter [facility] SystemInstructionsNot on filedocumented in this encounter [facility]Not on filedocumented in [facility] encounter [facility] Summary Purpose Family History No Family History Records FoundNo Family History Records FoundNo Family History Records FoundNo Family History Records Found Advance Directives No Advanced Directives Records FoundNo Advanced Directives Records FoundNo Advanced Directives Records FoundNo Advanced Directives Records Found Additional Source Comments INFORMATION SOURCE (unrecogn ized section and content) DATE CREATED AUTHOR 09/15/2020 [facility] DATE CREATED AUTHOR AUTHOR'S ORGANIZ ATION 06/29/2022 Eduardo Kapoor [facility] DATE CREATED AUTHOR AUTHOR'S ORGANIZ ATION 11/29/2023 [facility] EPIC DATE CREATED AUTHOR AUTHOR'S ORGANIZ ATION 12/07/2023 [facility] Reason for Visit (unrecogniz ed section [...] BE BASED ON THE PRIMARY CLINICAL RECORDS. [facility] [employer] [facility]. provides no warranty or guarantee of the accuracy or completeness of information in this document.
--- NOTE | 2023-12-10 19:05 | US_ITS ---
[address] [address] Patient Name: MYA CASTANEDA MRN: [id number] date: 1990 Sex: F Assigned Patient Location: US Current Patient Location: Accession/Order Number: [id number] Exam Date: 12/10/2023 19:09 Report Date: 12/11/2023 06:29 At the request of: ROCK HARRISON Procedure: US OB BPP w non-stress EXAMINATION: US OB BPP w non-stress HISTORY:EXCESSIVE GROWTH AFFECTING [id number] COMPARISON: No relevant comparison available. TECHNIQUE: Ultrasound biophysical profile was performed in the radiology department. BREATHING MOVEMENTS: 2 GROSS BODY MOVEMENTS: 2 TONE: 2 QUALITATIVE AMNIOTIC FLUID VOLUME: 2 PRESENTATION: CEPHALIC HEART RATE: 134.33 bpm AMNIOTIC FLUID VOLUME: 10.58 cm GESTATIONAL AGE: 33 weeks 6 days US/US OB BPP w non-stress IMPRESSION: Total biophysical profile score: 8 Electronically authenticated by: LAURA COATES Date: 12/11/2023 06:29
[2023-12-10 19:53] VITALS: BP 104/69; PULSE 85
== END 2023-12-10 20:25 | disposition home or self-care (01) ==
LOC: US 07:09 → FBC 19:49
PROVIDERS: Visit Provider Obstetrics & Gynecology
DX: O36.63X0 Maternal care for excessive fetal growth, third trimester, not applicable or unspecified (principal); Z3A.33 33 weeks gestation of pregnancy
CPT/HCPCS: 76818

== ENCOUNTER 2023-12-13 07:11 | Outpatient (OUT) | payer BC, SELFPAY ==
--- OUTSIDE RECORDS SUMMARY | 2023-12-13 07:15 | XMS_ITS | CCD ---
Author Organization [facility] Care Team Providers Care Cooking Appliance Repair Technician Name Role Phone Unavailable Primary Care Provider Unavailabl e RUSSEL ., DR WILKERSON Admitting Unavailable RUSSEL ., DR WILKERSON Attending Unavailable RUSSEL ., DR WILKERSON Consulting Unavailable WATKINS, DR IRENE Dee Consulting Unavailable RUSSEL ., DR WILKERSON Attending Unavailable RUSSEL ., DR WILKERSON Admitting Unavailable RUSSEL ., DR WILKERSON Consulting Unavailable RUSSEL, DEVEN Attending Unavailable LADONNA CEBALLOS Attending Unavailable RUSSEL, DEVEN Attending Unavailable ARYANCATHERINE Attending Unavailable RUSSEL, DEVEN Attending Unavailable RUSSEL, DEVEN Attending Unavailable ARYAN CATHERINE Attending Unavailable Unavailable Primary Care Provider Unavailabl e Unavailable Primary Care Provider Unavailabl e RUSSEL, DEVEN R Referring Unavailable RY ERAZO Attending Unavailable CHARLOTTE VELASCO Referring Unavail able RUSSEL, DEVEN R Referring Unavailable MARINA MARTINEZ Attending Unavailable RUSSEL, DEVEN R Referring Unavailable ALYSIA LEE Attending Unavailable RUSSEL, DEVEN R Referring Unavailable Medications Current Medications [...] 7 days. 21 capsule 11/27/2023 12/04/2023 Active [id number] acid ( 19) 29 mg iron- 1 mg tablet,chewable (3 sources) [id number] acid ( 19) 29 mg iron- 1 mg tablet,chewable Chew 1 tablet and swallow in the morning. Active Vit-Fe Fumarate-FA ( Vitamin Plus Low Iron) 27-1 MG tablet (5 sources) take 1 tablet by mouth once daily Vit-Fe Fumarate-FA ( Vitamin Plus Low Iron) 27-1 MG tablet Take 1 each by mouth 1 (one) time each day at the same time Active Vit-Fe Fumarate-FA ( Vitamins) 28-0.8 MG tablet (5 sources) Start: 07-08-2023 End: 07-07-2024 take 1 [...] trimester] Onset: 09-06-2023 Chronic Other complications of (4 sources) Placenta succenturiata; Translations: [Other malformation of placenta, third trimester] Onset: 12-12-2023 12-12-2023 Episodic Other diseases of veins and lymphatics (1 source) Lymphedema, not elsewhere classified; Translations: [Lymphedema, not elsewhere classified] Onset: 09-06-2023 Chronic Other nutritional; endocrine; and metabolic disorders (1 source) Obesity, unspecified; Translations: [Obesity, unspecified] Onset: 09-06-2023 Chronic Other and delivery including normal (5 sources) Third trimester ; Translations: [Encounter for supervision of normal , unspecified, third trimester] Onset: 12-12-2023 11-27-2023 Episodic Other screening for suspected conditions [...] [32 weeks gestation of ] 11-27-2023 Episodic Residual codes; unclassified (4 sources) Gestation period, 34 weeks; Translations: [34 weeks gestation of ] Onset: 12-12-2023 12-12-2023 Episodic Unclassified (1 source) 1st daughter born [...] NEGATED: Highlighted row has been ruled out!Unclassified (3 sources) No known active problems 07-30-2023 Results Test Name Value Interpretation Reference Range Facility Urinalysis macro (dipstick) panel (U)on 12-12-2023 Bilirubin, UA Negative Negative - 4(70) +++ mg/dL [facility] Blood, UA Positive Negative - 50 [place]/mcL [facility] Comment on above: trace Clarity, UA Clear [facility] Color, UA Yellow [facility] Glucose, UA Negative Negative - 1999(110) ++++ mg/dL [facility] Interpretation and review of laboratory results Abnormal [facility] Ketones, UA Negative Negative - 160(16) ++++ mg/dL [facility] Leukocytes, UA Negative Negative - 500+++ Saeed/mcL [facility] Nitrite, UA Negative Negative - Positive [facility] pH, UA 7 5 - 9 [facility] Protein, UA Negative Negative - 1999(20) ++++ mg/dL [facility] Spec Grav, UA 1.02 1 - 1.03 [facility] Urobilinogen, UA 0.2 0.2 - 12 mg/dL [facility] Glucose random or fasting- P OCTon 12-04-2023 External Glucose Fasting Or Random (Fbs) 126 [facility] POCT Hemoglobin A1con 2023 HbA1c (Bld) [Mass fraction] 5.1 % 4 - 7 % [facility] Urinalysis macro (dipstick) panel (U)on 11-27-2023 Bilirubin, UA Negative Negative - 4(70) +++ mg/dL [facility] Blood, UA Negative Negative - 50 [place]/mcL [facility] Clarity, UA Cloudy [facility] Color, UA Yellow [facility] Glucose, UA Negative Negative - 1999(110) ++++ mg/dL [facility] Interpretation and review of laboratory results Normal [facility] Ketones, UA Negative Negative - 160(16) ++++ mg/dL [facility] Leukocytes, UA Negative Negative - 500+++ Saeed/mcL [facility] Nitrite, UA Negative Negative - Positive [facility] pH, UA 7.0 5 - 9 [facility] Protein, UA Negative Negative - 1999(20) ++++ mg/dL [facility] Spec Grav, UA 1.025 1 - 1.03 [facility] Urobilinogen, UA 0.2 0.2 - 12 mg/dL [facility] PAP ACOG PANEL 2: 21 to 29on 05-24-2022 . . Normal [facility] Comment on above: Performed By: #### [id number] #### [facility] [address] [place] [address] Dr. Michael Garrett Age Gdln ACOG Testing 21-29 [facility] Comment on above: Performed By: #### [id number] #### [facility] [address] [address] [address] Michael Garrett DIAGNOSIS: Comment [facility] Comment on above: Result Comment: NEGA TIVE FOR INTRAEPITHELIAL LESION OR MALIGNANCY. CELLULAR CHANGES ASSOCIATED WITH INFLAMMATION ARE PRESENT. Performed By: #### [id number] #### [facility] [address] [place] [address] Dr. Michael Garrett Methodology: Comment [facility] Comment on above: Result Comment: This liquid based ThinPrep(R) pap test was screened with the use of an image guided system. Performed By: #### [id number] #### [facility] [address] [place] [address] Dr. Michael Garrett Note: Comment [facility] Comment on above: Result Comment: The Pap smear is a screening test designed to aid in the detection of premalignant and malignant conditions of the uterine cervix. It is not a diagnostic procedure and should not be used as the sole means of detecting cervical cancer. Both false-positive and false-negative reports do occur. . Performed By: #### [id number] #### [facility] [address] [place] [address] Dr. Michael Garrett Performed by: Comment Normal [facility] Comment on above: Result Comment: Francisco Otero, Oxygen Furnace Operator (ASCP) Performed By: #### [id number] #### [facility] [address] [place] [address] Dr. Michael Garrett Reflex Criteria: Comment [facility] Comment on above: Result Comment: The HPV DNA reflex criteria were not met with this specimen result therefore, no HPV testing was performed. . Performed By: #### [id number] #### [facility] [address] [place] [address] Dr. Michael Garrett Specimen adequacy: Comment Normal [facility] Comment on above: Result Comment: Sati sfactory for evaluation. Endocervical and/or squamous metaplastic cells (endocervical component) are present. Performed By: #### [id number] #### [facility] [address] [place] [address] Dr. Michael Garrett US PELVIS AND TRANSVAGon [...] Date: 2022-05-18 07:[address] [facility] Nursing Assessmenton 021 Nursing Assessment [id number] #[email or web address]:127 Normal [facility] Coding Summary.on 08-16-2020 Coding Summary. [id number] Gh0bWw+PGhlYWQ+PE1FV SAdH70esFXyyE7SE5bTZ M4QXOZOSNVGMC5RVR3kz LS7VAqjZ1BjnpIz GqpckSTrFC87BWb3OKA8 aTryOErsqO2emIWrC0k9 DgMgAF31kS74DWngDFSd VyD1HzUpxbyqiCAe C8xcLzTxjWTjBhx+PHRh YmxlIHdpZHRoPScxMDAl SzJwbRoyFA6zXy0yHQUm LWNvbGxhcHNlOiBj i4sdMNMjBCvjMA1exEun T0OehIM2DRXwj3p3In76 dHI+OLQvLJH5lGacNZfw x796FwGpf0pkMYW8 uQFsOYsgPDA0M99rc1V8 TMCzCYRlKMF0kOV8kQ0q rJxhsmpdH8XykTTrJxO9 KQT6bOCntM4niZko uquxkF7bHvo+K24FWN7M SZWLLN1JWvn9I6NdFjxl dHI+MZ66CEMtYE57qNHr wJOrn5uzlPs6UwUw RYHzWUA2pDvhOAjxb0Dw INKtR38dhKVtk4F3CPWw fCucxJNzTfNwnWB2mT4j UWsshuxim8dfdzkm Fehpy0nmhl29cF84P20j APyfYZUaVFB8PMOzQEQc hSfmdk5knQ7zVw1+IDxj y0rfz9oljXx5QqOj IDHhrnEuuMydOIQ8a8Vy Sw31B7FvlUbec7TeXia6 hu53iHCpk8W9nMX6CXiw VVKxpL2xOKoiQsL2 QUPbBqHfwV84bOGjYGih Cd1omLguhCvfQX7pUUXf zncmXBXtfY6tBHFumTIw tRusRG5qYLSphkka c304AnAlKXO7TETixAEr C1RwaQ1aUpBvQTHrQKCk I7NlhTXuGYrnD560LCrj PsH7SBSwckUuW3Uh HRXxdUgzIrE6a3W7Ty0W y1CqqolzZTE6MDidKXT7 EyI8YrOhMiA9F4OkOpe1 KIDggBfmDU2mJ3Wm VMUclristpyhzAW6AFLt YYBkkY94sNDwNGdpEf5a j8R6t402NKOpBTBnhM22 Yp3ysKsxHWGbuVIB bM9wcnwas4mtewfgAeOw NMTdAEi7WUh9HACekZht XkZcFXU1FbT8FZZ3bVLg bS5abTrayguwaT0w Oyc+Z30uvW1vDPJ8OXR6 zpvwIREwldWtQR45ZP84 X1JuUygfyVErxCD+PGRp sjUbgMkaXZ2kEyIp k6rpi6WzCVcdL0JvBNVx HZzmZal1CGGrMAU3qPC8 eI4lOQKtSKlxa3W9sLV0 F7WpdmJfyv9as5hk HEMgOBblA16zdAFin6X9 NCPlcFA7LAFrzNptHnFm aI30Muh+RPRwiUrhe6Ca Lkymd5diq9cuvIc3 IjMwJSIgdmFsaWduPSJ0 f1FmIa28M72iWYqsDKUl OHMePKKuZTBvyBoaoh0n dU8bXf9+PGNvbCB3 aMZ0lL6uBNIcKbI9KKzz E937EgKjaQWvEwgfv4fx n9lirFi8InNcTJOzugNd iTujKJQ2m5GyQu13 T41zYIikIORlFKYbWKGc QOVwqUaoqj0neA1xRm8+ NK1nk3oobq95nM57hIS+ WSMpHCK2xAycLPgo YMKdhN1sAAtqGjM5JEGm JaQwkD56bQGgFLnnRl0n aRcjxKkwDT5sYGIhoplu p020CiXnm2xeLNCt uXEuAHjbILP9S57zg0U7 WPCvFJMxEXW1yUQ4tS5k bGlnbjogbGVmdDsgdmVy gMdtHBjsOYnnS708 IHRvcDsnPlBhdGllbnQg DxFuNJs6E3KuUpe5FKXc bFajBH1olPWpXYtvFn8p xDnagGzzDD1uAKWz gyaxv270FqUqi6ktRKIw iPKrGJvwRWN8M70gu7W9 IBUoFJEmYGC9iKZ0vE3o bGlnbjogbGVmdDsg qcOrvThfZMznNAucS860 IHRvcDsnPkJpcnRoIERh xBI2UR18XC67mIUsv9N4 lLJ7S5AiGBHdrtcd zxfuzQN6YRRyOEGvhK96 Rw0ziEhpUf2yHDWaWOE2 ZDLskJRwN0ZvtZ1cPtXb EJVxDPOoC7PkaGNl OTzfB724UOszQxW6RAQf ohOhI2IrYTSwnUncCsT6 g1W6Gh1SL4P7NJ38ET93 jDQer1D8pSR4K8Wx YRKpqqodreibcUP0SPGr LNOftK84Dh0wwMhvCk1w RJRhELM7MTHlsTSbA6Mp uT6hXbNyZWFcMVQo Y6XlsCPgVUynM114FCrk VgU1AYEaefBvV7UtSQMn oFluAaF2s3H5Kg9ZNOc9 RB83YK43zCHfb4T1 kSD3W6RnROWkakuqvnls xQF7QTKwHYMfdS28Xr3h xCbcRb5hIAHzHFK9DVCz vPYpY4MaaA0kOyTd EHVsIDAoF6DejCOxYNub Z596KQteIdF9OGOmjwAz Q4SiJGZkrCkzLkH0h7R3 Rt7RZLZdWE83FVU9 xCY5QT20PG56H5ZjMmtd dGFibGU+PHRhYmxlIHdp ZHRoPScxMDAlJyBzdHls NX3bAs6mAODhRXJj bWxusSXmOxFso6meBKUz EJlkPT8lkWhxS6AovUF4 WSPqb7t9Sn81B65xE9Zw dXA+FYOaxOR7pPN9 hC2cRfQoPhD3DTrpN660 MgTbcJZyAvipt8myy8gs uQo6SqP9FNRourHcwVcs PFW4n9RdKw77P76j IHdpZHRoPSIxNSUiIHZh kHmyco0ejK9nSz9+PGNv xHD8pDQ8lO2bDnPcKyU1 SYylM802WeSlzFXv Xkwsa9ytc3ltsTw4GtMv IBOvejAnlCnoPKM6s6Sb Ei49L3QpzBgwc4OiMci4 kh54sAArp8Q0mAO5 P1AdQYQlqznujYChsDkq ME8hAHTccrbvISEcjL0r GRGaZ8s2ThLbAgL2RDsr E3BhlzV1PFZfxMLo QFhfSXJ1E58kj2O7GURt ORZkUWT1dPB4dT2duXby bjogbGVmdDsgdmVydGlj YTwmXMfbY830BZLp wBtdZYRtlL8fWQQjkIPy zKluDU2uQWKzessnEmVQ NufMSn7dZDJSQmORP3Cq TDwvdGQ+PHRkIHN0 lMozZIfqCOSodM5uWRTy O1h2AeApTdV0SPlzY1Ej UQTroataDl78mF1sAxNp ZrO9LFjtJ1UxmrD0 KWNroNYbEXxpICW5D16n g2W9QJHuKPUqPFK4xYD6 uH1dpUmyeyxwwLIsoMnb dmVydGljYWwtYWxp D413OVSpiAcxUiE0RdZn ShS7LUX5P6HjGby7OQTf tPraVS8drSOkKYphNk5v sMzlqJzuIO7wNXAs knkoCHBceT9gNCJgvSUq aTdqEC7dQONduotgs831 LuUhSIB0SJBubQHzV4Rw wZ1wReMdINEyFBSe O3GteXQhASrcB948WPar OtV3RFCvlfQjJ9BnGAZt fAkqHmY6p2G8Nq2jZPIE ZWFyczwvdGQ+PHRk BOK2tMtwHVtkTWMyyP1v FOZdV0z1ZrStXqU4XTgj Y6VoEFWgmfcrUz84cJ6m ShItQhB2YFuhD7Wy ffH7CQCxiYRqSUwjHGY5 W95ix7E0ODXfCVOpWGK6 hOG2xR7ihWoyclgwdHHa dDsgdmVydGljYWwt XNtcD118DFYsuNabJaNm bWFsZTwvdGQ+PHRkIHN0 xEhtXRsfTAEfnR4fCUMm I9p7NnWxCvM8KZet Z3CoMOLgdeibMq72aV3d CsYvBtD8JTykE3PrzjL2 HQVonYZuASlzCXE3H59i s0G3ZFNoBUBoKNQ4 cDM8lU4vfWvupuwxlBHb dDsgdmVydGljYWwtYWxp H958IINzhLthUy49wVJm rWagldO5L3InTbnv dHI+WC61KHAuQX85zSRo bSGet5ivyZk5HwOdBQRl VSY4mCnjJGkno8BzVUMc Y37ycRRxl8W3UJRa tZyjrLBoFfHuuPC9nM2q MTfdmfntp9jesdeqKpya t3bvis77xX16P34mOZfd ZHRoPSIzMCUiIHZh qCmzoy3aiE2bSi3+PGNv gXW6jIJ2yH5gGrRkAgY5 GSpmO465AlZtlOFwUvqq p6nae9wmdRn8XhYl UPWsslWrtGezGES3j9Or Ij00Y01lXNjcOVLxLVBh CJIkVOSppYjttl7neR1x Ii8+FT3vu9dlut47 zL65wYM+AFAhDXR5sQix ZWhnJQLseH6pOVbtWvJ2 CTThFkTjsJ58qVOjDGyi Fb4vmCmeeXouFG1w CBZoczdqt262NfKtz6yz CNAjrNPcWEzbEJW6U65r m2B8IYHwBQLdYTS6rCB2 vT4vhWawhaasoYJl dDsgdmVydGljYWwtYWxp W612GEFldLrmMpXbfAEj Z0wgumIMEQ6oPnqpkPN+ RXYgFZW9jVegROeo VFOfiZ1yRJQpT7f1CaIu FcY5AZejP9UhnlS1YMSd iLXnFJVfcZTTeN2eemix l4ffcctaBtEnLWXo OAg1KDf0AAQjlHumKfQi RFE5PsH3TYT1bOXdaV2q tSzdkfcenG1pMto+RklO OjwvdGQ+PHRkIHN0 hHvcEWnnPRMooL4qMMQc R8v8YiOvSkW5BYlqD4Hf deL2MAXhrUPeTUFusHIS mF9zdkqdg9plwirn HvKkZDVaDPd0HPj6XSVc lXyfTwSqAVC9YfU5BDJ7 uGGhvC9pwYiyhqjhgD5u Oyc+TVJOOjwvdGQ+ KWGgCIQ7pQjdWTmkSPSy rP7oCJLpM2f9JhCnZpY7 FHoiP9RgcvO2KZLtsJUm DWEtiIJEdX3uayny l9rkhunyRmLoEBSzHYh0 KPe1RYDqpXvlIbUdQVW1 YzC3NJV7gUTozV2byKjx hadpdP6dXrw+UGF5 GXG5DC38DZ41V8OrTyfp dGFibGU+PHRhYmxlIHdp ZHRoPScxMDAlJyBzdHls KN8gWb8eWZKrBUOb bGxh (more content not included)... Normal [facility] Coding Summary.on 08-15-2020 Coding Summary. [id number] Gh0bWw+PGhlYWQ+PE1FV OGtR62oyTFkxI6CT2zUA A5QONZEDWOXIV5TLT7ly XR4SZciI8OdtjRz IawszBMvWL99MNv9SLM2 wUscIGznlK6yqWOdZ0h0 WgNgUY23kQ53OSjaZUPp AnQ3QpQneovtyIKk C7kxPjQxdMUiWnc+PHRh YmxlIHdpZHRoPScxMDAl FzVzzJvrIA4pVl5yPRTe LWNvbGxhcHNlOiBj s4hmPJIxQFasQQ9xrRjq Y0NlzJC9WNFir2o0Ua38 dHI+OFSzYVO3jYibGUsa n222HfUay3yyYQE9 hYZoFHjoZNG9Q70me1H1 HJBoJOTlMOE7pPE6kM7y cJsrqdboI6UimIUrXoB2 FRX5kPNykM9luXsh yumvsQ5xMzg+J82GBX9V SVEFQQ6SAiu1J1HuEifi dHI+VM84XKWsWR21aOYt xMVip1ablNx7UzNt BCTuYGM4tFyiBMouf2Ur TBGpH55jhYYwt6X5NMBo iStlhTEtRyTudTP8fT9r QXtcwrdxe3ttdaos Zyykp7svnq77kY18D05c EWslUBXrWTB1YHYoKTIy lPjzkx9ltQ1jMf1+IDxj u1bjw5opfLo1GtGe NTOmtwHjjFhyVKW1m5Rf Df25M1SshIgve8AdKqh7 dx38fOWiz5Y1zXB2KTyr LWOsgF4kZEwyZqP3 ATKxNvWelU18oIHwMWax Vt4apKmvrOsgHS5zMQCq otzfSOCzwP2nZXRkcNDn kUxoPQ0gJUDtvrge o991BqRpEPT4GSOmrSKg Z5SlcA7uQkKcSUJaETFu H3TkjTJvDHlvB215KKwu WvM6MJXmdkZiH9Iv ETBgwOnrIaT3h4X3Cz8M t6NxashqAXG7OBeoYOZ0 UjS2VdYwIrR7Q9BaAcs5 QMNbhRckJG6rN9Kp ARLhscvujhxrsBE0RPOz GKYnoR19dZLxAZyaCp1o n6A3w767OYWqUNHyoM85 Ay6giAlwINRtrWMF fR9eahoup3mjtjcvWeKg NJOtRIm0OJl7SZQgiEyr HxIhPUP2GsU8GNN0cKYh dD0fnXsmzecnwK3l Oyc+Y78gdJ8oDSK7FCB1 yexmNKWqnqXpZG40SF61 B2LhKdyxqAUiqOM+PGRp gfHjeCglPR3uRaGn f5mjg5MgYDupM4TkIXId AQyaPsc7EMRhUEZ5jKN3 jS2vHXSwJVnkp3J8vCL8 B4ZkpbKiag0zp2kv WIJuSCzqE85udIPtb0W2 BDPfwRU1VFOryWajCqQb yL30Ris+TSEnfErqw9Yh Zpfdd4bfh3fauGf9 IjMwJSIgdmFsaWduPSJ0 b6MsPh21S81aIZtqATNo OHMnXBCrUXOrkDguff8v aE5kPp8+PGNvbCB3 eTC0dZ5xPRQyDfI2FIrw H685EaXmdHUpNtwzg1ju w5melUy2TxRtQDIrieCx tUoeSSY3u7QhQn93 T65uDTjrRXWhYQKcYMCt YOMbyCohjf5ovQ7yTj8+ WG2ni5jkos08yR64yYG+ LYNbHFH9qWyxZNom ZVPdkC2dIDbjGuH9KLSf QuDlvE15mGNsBJcqCl8s nOocjCldXP3pLFBdeutr q397XlSha8beRNYy mSSgMQwiUVK8L23gs8Z4 PSNlJOEbNHO0gDL9uE2z bGlnbjogbGVmdDsgdmVy oBhuCLagCMaxE486 IHRvcDsnPlBhdGllbnQg CkIdAWh3S3ItXfl9QPUh yQyiIN4ehARqLPktOf2z nXqrdMbnEF5zTOSg ewhum627EmFfa4yvZZQu cKVbXKtvIQL0P04cw4E2 GUUpSSDcGFH7fFP4dT4q bGlnbjogbGVmdDsg qoPqsPtwZMomBEffC619 IHRvcDsnPkJpcnRoIERh zMH7WB10LI75kGCtq8M9 bZN1S0VaHWSjfgtl dahciTF4JMVgGYSsrT64 Ih8yeFshMo2nQFCbRAE4 WNXfdQLwI8ArlE6gSxDi LAHdPSZfJ2VqhVMx ZNzxE949FSjtIyM6WKTb wuIcA5QoGEHxuAwkAmE0 p1C8Tz0YV9O4NZ08JY15 kSLuf5G1gKW4I3Dy JFNroahqrxbzpEZ5ZIMx NWOllC42Ya3qrIggBe8s EOPwCRA3VPHrmAFnD8Ir eC7qGiQxXFHcZJMl X5EwjUUlMVufQ140XEbk SqW7HIOnhbQeH3HlKTGz rBxrDpW8c8N7Wm5BVBs5 LV39AD04pIRta6Q3 gFT4F6UbRYXcfajmfhom pBU6ZDEtEZRaeQ85Rc8p hJxaVt5pJQToREI9KPQt zMQdU2YpiB5yEgSu AAMbBKSyL7DlqTStTLgz H444LVjbTkD8DIQofnYb V0ZqBZYwkFjnTpX7b3N5 Tp5BFZZvIH67QYA4 rLH9CF15RI52V4IbOskv dGFibGU+PHRhYmxlIHdp ZHRoPScxMDAlJyBzdHls MY3jEt0wFXPjWGTm lIzlcYZrVvOkt1efLPOf DZnkED7xbOdnX8UsfRA4 JNOpb2a3Xa38Y21yS1Ea dXA+CBUvpKQ1nQU2 dP3bKjJqAgW4MRtlR305 KhXteYTsGbbvd6trj6pp oVa3NzZ9FDQtqcDyzKib JWS6k2NaVj58G37t IHdpZHRoPSIxNSUiIHZh nYfdfv8ujS8nKf2+PGNv jVF1fPU1tP3ePbReZkW6 QOmmV986XdHfcBAc Ykxuo0sbj1wduKz9YxHr RBVsngFpoRcdEHO5r6Va Vn90B8YnvFxmn4EkSko8 dx85xTLgo5Y9uJX4 C7PmQKAuklkydOGlfZoq DX5qHRChpxroBQFflJ2a IKCnT1s6BzJnRdG7IGoj R3EsywA2EQWniJFu UJusCVB7E77es0Z4RYGv JSJdCBV6uEA0nF1ziVxu bjogbGVmdDsgdmVydGlj MXwpXWphE605QVYz fRmdXSOloV6aJEWhrZMq eRekYY0gPYSrmqwiCfTQ OpjUBl2jPXQKRvHJA0Um TDwvdGQ+PHRkIHN0 kYenMGlfZMAojC0vWKTz Z4v6PfZnBtU3OCbwD8Uk JJGcjvgqOd99rS1dEhKh NrT8LIupG8JzvkS2 GCBfgRPeBCegCBR7P17l s8W0EXWoFCIdWBA4hLS1 oF8pnDtbbotgvGXrrUjc dmVydGljYWwtYWxp B698DQTsyUsrGjX2IaWx TlZ1OHX8D5UyVdz0ZLKd qVtdDU4acGAeEAlzQj5o oWmqmIndQI8tKYTx cnjeTOYwoX8kIVMcrLEe lOtoBE9jMNKveihwp661 BxJpNEC4XNDioDTeO6Mv hS4fWlKvMIFuCBHn V5MpuGXcIGdbW341RBjg YfS3PSGhfnGuO2AqKIYa zDthInC7s9K7Sq6dOEKP ZWFyczwvdGQ+PHRk OJO9dUsyOOkqYEPcuO7x WRIbY4k1WtXeQwX1LJed J6ReNENclkhyZr92uI2q CvZqShT1ILgpY2Mz iuP7QRRjgUJiQUybEXZ0 U28nw1G2GDRwTGOxGVO7 zSB1mU5auIrrpkvupPNp dDsgdmVydGljYWwt TXcdS009BIBgnRxcZaQg bWFsZTwvdGQ+PHRkIHN0 oApnADliVYCedV8lVDEx O4p3ErDhAoJ0OLea E8DzRUUdkmnxAk26eQ6z VqBpJjZ1LJawE1LkyoB4 OENqwCDzOSknWOT1F17c e2Q8VIOqJPOpWYD4 iPK9cK1ieUxgiurwwNGw dDsgdmVydGljYWwtYWxp V341BTVrbLhxAjizxSR4 aWVudDwvdGQ+PC90 lf55K9DmNhezYur7JNBw LFS1uYY5rI4nTRArVCdx x3N3bRV2Y4FpbpKcgg3r m1vvLWViDUbnF66a xUNqj9L0ZCSxmAY8GMBm jQzgVfIfyC94Zoe+PGNv pCjla6MaPxbef8ott5jj vFo0DbUdDSTcpeUa iOehKLY7m0ClAs08A51j IHdpZHRoPSIzMCUiIHZh rFznhx2kiD3aBb3+PGNv iBL9qHN6mP7sEnUd QwN0YDpvE242McVvfKRm Ixwmw0lgq4xxuRk5NwEe HBHadvByuTsqOET7i3Fi Cc73P4XcmFlel4Sw Cks3uw61mVRjx9Q3xBD2 W3DoVUFjlxlurWUkeEkp BG6oOWOayyprTFTogS6f JMJgS4e4AmCkPiK7 NNeaF9HjtdR3AGZplTSk XUPghORHhZ9nbihoc8qb vblwXiXyQQNzUXm1MGo4 LWFsaWduOiBsZWZ0 QxA1ULX3lKUapP2uoDwm tkkzfL1wNle+RKq8c7gz jFDdVE0deJU7PX95EY30 hFAjx5A3eDL0T2Ps DYTdcaqrckhprIH6YPOq QOVjxA71Rf6jnGcwQd0a RQEzJNR1UDXtvDUiG5Hp qL6uQeGdNGLmJFHr N8LcgQSnGEbnU278SAbi EsE8JFTtbcXwC9IeTYAd aMikWvF4d0A6Yv6YXI26 DS03OU90uMQlb5K1 hJF4I5KkGOPwsjhpieoh uFW0QHGgJVTciM94Cx7b nUztYq4hKNJnBGL6ZKSt kKMlL3IgpO3zZsOj DTGdIKXaL8GozMQhYOdq M351ZLvsBeQ1EWXaacGd U7NsMKKydAcvBxC9q9L8 Lh6MDd93LU32EJ19 mRGro3C1aOA2U6FnEKXu bqildhuorCQ5IVCfUGFy yR95Az0cdBnpIk4jLNNh JYT6RHAoaMFpI5Xe uB9mCwSjIORkUPIoN2Zi vBFlMKsmS866DNiuKtE5 WZGwlgZqX0ZlLYVdeUgq ItS3o6E8Kd6PGNod vup4H0HcHomxvKZ+PC90 CPVbNH85yRWmxTBsv0us qJx7ZaWfJFHyNZT0oKdk XFvxh7IjNTZiD31k bGFw (more content not included)... Normal [facility] Consent for Treatmenton 07-20 Consent for Treatment [id number] #[id number]:127 Normal [facility] General Message Officeon General Message Office --- --- --- --- - -- --- --- --- --- From: Vivien RichmondInmode To: MYA MYLES Sent: 08/06/20 02:30:52 AM EDT Subject: Discharge Summary Ready to View A summary regarding your recent visit is available in the Documents section of your health record. Normal [facility] CBC w/Indiceson 08-05-2020 Erythrocyte distribution width (RBC) [Ratio] 15.1 % High 10.9-14.2 [facility] Comment on above: Performed By: #### 2 [id number], [id number], [id number] #### [facility] [address] [place] [address] Hematocrit (Bld) [Volume fraction] 26.0 % Low 34.0-46.0 [facility] Comment on above: Performed By: #### 2 [id number], [id number], [id number] #### [facility] [address] [place] [address] Hemoglobin (Bld) [Mass/Vol] 8.6 g/dL Low 12.0-16.0 [facility] Comment on above: Performed By: #### 2 [id number], [id number], [id number] #### [facility] [address] [place] [address] MCH (RBC) [Entitic mass] 26.3 pg Low 27.0-34.0 [facility] Comment on above: Performed By: #### 2 [id number], [id number], [id number] #### [facility] [address] [place] [address] MCHC (RBC) [Mass/Vol] 32.9 g/dL Normal 31.4-36.0 [facility] Comment on above: Performed By: #### 2 [id number], [id number], [id number] #### [facility] [address] [place] [address] MCV (RBC) [Entitic vol] 79.7 fL Low 80.0-100.0 [facility] Comment on above: Performed By: #### 2 [id number], [id number], [id number] #### [facility] [address] [place], [place] [id number] Platelet mean volume (Bld) [Entitic vol] 8.0 fL Normal 6.4-10.8 [facility] Comment on above: Performed By: #### 2 [id number], [id number], [id number] #### [facility] [address] [place] [address] Platelets (Bld) [#/Vol] 259.0 E9/L Normal 150.0-500.0 [facility] Comment on above: Performed By: #### 2 [id number], [id number], [id number] #### [facility] [address] [place] [address] RBC (Bld) [#/Vol] 3.3 E12/L Low 4.3-5.9 [facility] Comment on above: Performed By: #### 2 616553, [id number], [id number] #### [facility] [address] [place] [address] WBC corrected for nucl RBC Auto (Bld) [#/Vol] 10.2 E9/L Normal 4.0-11.0 [facility] Comment on above: Performed By: #### 2 [id number], [id number], [id number] #### [facility] [address] [place] [address] Discharge Instructionson Discharge Instructions [id number]#[id number]:127 Normal [facility] Inpatient Clinical Summaryon 08-05-2020 Inpatient Clinical Summary [address] [address] Clinical Summary Person Information Name: MYA MYLES [facility] Age: 30 Years : 1990 Sex: Female PCP: Chao Blackwell III, DO Marital Status: Single Race: White Ethnicity: Non- or Language: Sammarinese MRN: Visit Id: Visit Reason: Speciality: Acuity: 1 PP Enc Type: Inpatient Med Service: Obstetrics Arrival: 08/04/2020 06:59:23 Discharge: 08/05/2020 17:20:00 Dispo Type: Home ([facility]) Address: [address] [place] [address] [address] [place] [id number] Provider Notes: Diagnosis: Depression during ; Obesity [...] Follow up: With: Address: When: Sukhdeep Schaffer [address] [place] [address], [place] [address], [place] [phone] Business (1) Within 6 weeks Comments: Call Dr if fever>100.5 F, heavy bleeding Call for any problems. Nothing in the vagina for 6 weeks Type Location [facility] 09/15/2020 9:00 AM 09/15/2020 9:15 AM Confirmed Patient Education Information: ibuprofen 600 mg Tab Normal [facility] Inpatient Patient Summaryon 08-05-2020 Inpatient Patient Summary [address] [address] Patient Discharge Instructions PERSON INFORMATION Name: MYA MYLES Date of : 1990 Current Date: 08/05/2020 18:16:41 PHYSICIANS Admitting Physician: LAURA MACEDO, Funmilayo Ryan Primary Care Physician: Chao Blackwell III, DO [...] Follow up: With: Address: When: Sukhdeep Schaffer [address] [place] [address], [address] [address] Business (1) Within 6 weeks Comments: Call Dr if fever>100.5 F, heavy bleeding Call for any problems. Nothing in the vagina for 6 weeks In the event that this physician does not participate in your insurance network, please consult with your insurance company to find a nearby participating provider. Type Location [facility] 09/15/2020 9:00 AM 09/15/2020 9:15 AM Confirmed Comment: JUSTINO Burton VANESSA L, have received the attached patient education materials/instructio ns and have verbalized understanding. Patient Signature Date Clinican/Nurse Signature Date MEDICATION LIST New Medications [id number], [address], [place] [id number], [phone] ibuprofen (ibuprofen 600 mg Tab) 1 Tablets By Mouth every 6 hours. Refills: 0. Last Dose: Next Dose: Medications to Continue with No Changes Other Medications multivitamin, ( Multivitamins) 1 Tablets By Mouth every day. Last Dose: Next Dose: Pharmacy Information: [facility] PATIENT EDUCATION INFORMATION Instructions: Medication Leaflets: [...] younger th (more content not included)... Normal [facility] ABO/Rhon 08-04-2020 ABO/Rh Positive Invalid Interpretation Code [facility] Comment on above: Performed By: #### 1 [id number], [id number], [id number], [id number] ####[facility] [id number] [place] [address] ABO/Rh History Checkon 08-04 ABO/Rh History Check Verified Hx Blood Type Normal [facility] Comment on above: Performed By: #### 1 [id number], [id number], [id number], [id number] ####[address] [place] [address] ABSCon 08-04-2020 ABSC Gel Interp Negative Normal [facility] Comment on above: Performed By: #### 1 [id number], [id number], [id number], [id number] ####[address] [place] [address] Blood Bank ID#on 08-04-2020 BBID# [id number] Invalid Interpretation Code [facility] Comment on above: Performed By: #### 1 [id number], [id number], [id number], [id number] ####[facility] [id number] [place] [address] CBC w/Indiceson 08-04-2020 Erythrocyte distribution width (RBC) [Ratio] 14.8 % High 10.9-14.2 [facility] Comment on above: Performed By: #### 2 [id number] #### [facility] [address] [place] [address] Hematocrit (Bld) [Volume fraction] 31.7 % Low 34.0-46.0 [facility] Comment on above: Performed By: #### 2 [id number] #### [facility] [address] [place] [address] Hemoglobin (Bld) [Mass/Vol] 10.2 g/dL Low 12.0-16.0 [facility] Comment on above: Performed By: #### 2 381706 #### [facility] [address] [place] [address] MCH (RBC) [Entitic mass] 25.6 pg Low 27.0-34.0 [facility] Comment on above: Performed By: #### 2 744250 #### [facility] [address] [place] [address] MCHC (RBC) [Mass/Vol] 32.1 g/dL Normal 31.4-36.0 [facility] Comment on above: Performed By: #### 2 055775 #### [facility] [address] [place] [address] MCV (RBC) [Entitic vol] 79.7 fL Low 80.0-100.0 F [facility] Comment on above: Performed By: #### 2 724193 #### [facility] [address] [place] [address] Platelet mean volume (Bld) [Entitic vol] 8.3 fL Normal 6.4-10.8 [facility] Comment on above: Performed By: #### 2 652546 #### [facility] [address] [place] [address] Platelets (Bld) [#/Vol] 341.0 E9/L Normal 150.0-500.0 [facility] Comment on above: Performed By: #### 2 212222 #### [facility] [address] [place] [address] RBC (Bld) [#/Vol] 4.0 E12/L Low 4.3-5.9 [facility] Comment on above: Performed By: #### 2 833716 #### [facility] [address] [place] [address] WBC corrected for nucl RBC Auto (Bld) [#/Vol] 8.2 E9/L Normal 4.0-11.0 [facility] Comment on above: Performed By: #### 2 262386 #### [facility] [address] [place] [address] Consent for Procedure/Surger yon 08-04-2020 Consent for Procedure/Surgery [id number] 9#1.00CD:127 Normal [facility] Consent for Procedure/Surgery [id number] 3#1.00CD:127 Normal [facility] Consent for Procedure/Surgery [id number] 5#1.00CD:127 Normal [facility] Consent for Treatmenton 07-19 Consent for Treatment [id number] 2#1.00CD:127 Normal [facility] Consent for Treatment [id number] 9#1.00CD:127 Normal [facility] Delivery Summaryon Delivery Summary Patient: MYA MYLES Age: 30 years Sex: Female : 1990 Associated Diagnoses: None Author: LAURA MACEDO, Funmilayo Ryan Basic Information Gestational Age: Gestational Age (EGA) [...] Maternal condition: Stable. Funmilayo Escobedo MD [facility] Comment on above: Result Comment: Elec tronically Signed By: Funmilayo ESCOBEDO MD\.br\Date and Time Signed: 08/04/20 15:29 EDT Discharge Instructionson Discharge Instructions [id number] 106 [id number] 9#1.00CD:127 Normal [facility] Help Me Grow Referralon 07-19 Help Me Grow Referral [id number] 4#1.00CD:127 Normal [facility] Progress Note-Physicianon Progress Note-Physician Patient: MYA MYLES Age: 30 years Sex: Female : 1990 Associated Diagnoses: None Author: Kevin Haley Jr., DO Postoperative Information Post Operative Note: Day 2. Anesthetic utilized: Regional: Epidural. Health Status Allergies: Allergic Reactions (Selected) No Known Allergies Problem list: All Problems labor / Patient Care / Confirmed Ovarian cyst / SNOMED CT 987473585 / Confirmed Attention deficit hyperactivity disorder / SNOMED CT 2957967627 / Confirmed Obesity / ICD-9-CM 278.00 / Possible Obesity complicating , third trimester / SNOMED CT 9945706868 / Confirmed Depression during / SNOMED CT 1406918091 / Confirmed Insomnia / SNOMED CT 576177904 / Confirmed / SNOMED CT 464966222 / Confirmed Supervision of high risk in third trimester / SNOMED CT 59632353 / Confirmed Chronic fatigue syndrome / SNOMED CT 66388788 / Confirmed Resolved: / SNOMED CT 131096665 Resolved: / SNOMED CT 179511857 Canceled: Obesity complicating , first trimester / SNOMED CT 7501648019 Canceled: Obesity complicating , second trimester / SNOMED CT 8554808634 Canceled: Supervision of high risk in first trimester / SNOMED CT 22762969 Canceled: Supervision of high risk in second trimester / SNOMED CT 04855714 Physical Examination General: Alert and oriented, No acute distress. Neurologic: Normal sensory, Normal motor function, No focal deficits. Review / Management Result Review Condition: Stable. Assessment Anesthetic outcome No post-epidural complications noted.. Plan Transfer/ Discharge: Condition stable. Normal [facility] Comment on above: Result Comment: Elec [...] / Confirmed Ovarian cyst / SNOMED CT 826634134 / Confirmed Attention deficit hyperactivity disorder / SNOMED CT 9856537124 / Confirmed Obesity / ICD-9-CM 278.00 / Possible Obesity complicating , third trimester / SNOMED CT 1753024782 / Confirmed Depression during / SNOMED CT 5169043441 / Confirmed Insomnia / SNOMED CT 028189714 / Confirmed / SNOMED CT 083474190 / Confirmed Supervision of high risk in third trimester / SNOMED CT 05202666 / Confirmed Chronic fatigue syndrome / SNOMED CT 38785788 / Confirmed Resolved: / SNOMED CT 528476381 Resolved: / SNOMED CT 449333391 Canceled: Obesity complicating , first trimester / SNOMED CT 6773017673 Canceled: Obesity complicating , second trimester / SNOMED CT 4624023807 Canceled: Supervision of high risk in first trimester / SNOMED CT 73579858 Canceled: Supervision of high risk in second trimester / SNOMED CT 60251501 Review of Systems Respiratory: Negative. Cardiovascular: Negative. [...] The PCEA was started at 0942. Normal [facility] Comment on above: Result Comment: Elec tronically Signed By: Kevin Haley Jr., DO\.rosey\Date and Time Signed: 08/04/20 10:50 EDT UA With Cult Reflexon 2020 Bilirubin Ql (U) Negative Normal Negative [facility] Comment on above: Order Comment: Urina ry Catheter Insertion triggered Urinalysis With Culture Reflex order by discern. Performed By: #### 2 894879, 6181785, [id number] #### [facility] [address] [place] [address] Clarity (U) CLEAR Normal Clear [facility] Comment on above: Order Comment: Urina ry Catheter Insertion triggered Urinalysis With Culture Reflex order by discern. Performed By: #### 2 769603, 7160744, [id number] #### [facility] [address] [place] [address] Color (U) YELLOW Normal Yellow [facility] Comment on above: Order Comment: Urina ry Catheter Insertion triggered Urinalysis With Culture Reflex order by discern. Performed By: #### 2 448190, 7583379, [id number] #### [facility] [address] [place] [address] Crystals LM Ql (Urine sed) Present Normal [facility] Comment on above: Order Comment: Urina ry Catheter Insertion triggered Urinalysis With Culture Reflex order by discern. Performed By: #### 2 386587, 0686165, [id number] #### [facility] [address] [place] [address] Epithelial cells.squamous LM.HPF (Urine sed) [#/Area] 0-2 Normal 0-2 [facility] Comment on above: Order Comment: Urina ry Catheter Insertion triggered Urinalysis With Culture Reflex order by discern. Performed By: #### 2 951409, 0234839, [id number] #### [facility] [id number] Glucose Test strip (U) [Mass/Vol] Negative Normal Negative [facility] Comment on above: Order Comment: Urina ry Catheter Insertion triggered Urinalysis With Culture Reflex order by discern. Performed By: #### 2 850171, 3816806, [id number] #### [facility] [address] [place] [address] Hemoglobin Ql (U) TRACE Abnormal Negative [facility] Comment on above: Order Comment: Urina ry Catheter Insertion triggered Urinalysis With Culture Reflex order by discern. Performed By: #### 2 218470, 9312844, [id number] #### [facility] [address] [place] [address] Ketones (U) [Mass/Vol] Negative Normal Negative [facility] Comment on above: Order Comment: Urina ry Catheter Insertion triggered Urinalysis With Culture Reflex order by discern. Performed By: #### 2 654862, 2638426, [id number] #### [facility] [address] [place] [address] [place].plasma/[place]. RBC (Bld) [Mass ratio] 0-3 Normal 0-3 [facility] Comment on above: Order Comment: Urina ry Catheter Insertion triggered Urinalysis With Culture Reflex order by discern. Performed By: #### 2 890806, 5855967, [id number] #### [facility] [address] [place] [address] Mucus Ql (Urine sed) TRACE Normal [facility] Comment on above: Order Comment: Urina ry Catheter Insertion triggered Urinalysis With Culture Reflex order by discern. Performed By: #### 2 906962, 6597224, [id number] #### [facility] [address] [place] [address] Nitrite Ql (U) Negative Normal Negative [facility] Comment on above: Order Comment: Urina ry Catheter Insertion triggered Urinalysis With Culture Reflex order by discern. Performed By: #### 2 577396, 9460943, [id number] #### [facility] [address] [place] [address] pH (U) 6.0 [pH] Invalid Interpretation Code 5.0-9.0 [facility] Comment on above: Order Comment: Urina ry Catheter Insertion triggered Urinalysis With Culture Reflex order by discern. Performed By: #### 2 137447, 8380132, [id number] #### [facility] [address] [place] [address] Protein (U) [Mass/Vol] Negative Normal Negative [facility] Comment on above: Order Comment: Urina ry Catheter Insertion triggered Urinalysis With Culture Reflex order by discern. Performed By: #### 2 670733, 4019691, [id number] #### [facility] [address] [place] [address] Specific gravity (U) [Rel density] 1.015 Invalid Interpretation Code 1.005-1.030 [facility] Comment on above: Order Comment: Urina ry Catheter Insertion triggered Urinalysis With Culture Reflex order by discern. Performed By: #### 2 683585, 2315412, [id number] #### [facility] [address] [place] [address] Type of Urine collection method Catheter Normal [facility] Comment on above: Order Comment: Urina ry Catheter Insertion triggered Urinalysis With Culture Reflex order by discern. Performed By: #### 2 375028, 2570957, [id number] #### [facility] [address] [place] [address] Urobilinogen Qn (U) 0.2 {Henny'U}/dL Normal 0.0-1.0 [facility] Comment on above: Order Comment: Urina ry Catheter Insertion triggered Urinalysis With Culture Reflex order by discern. Performed By: #### 2 245958, 6233156, [id number] #### [facility] [address] [place] [address] WBC Auto Ql (U) Negative Normal Negative [facility] Comment on above: Order Comment: Urina ry Catheter Insertion triggered Urinalysis With Culture Reflex order by discern. Performed By: #### 2 041801, 4300291, [id number] #### [facility] [address] [place] [address] WBC LM.HPF (Urine sed) [#/Area] 0-5 Normal 0-5 [facility] Comment on above: Order Comment: Urina ry Catheter Insertion triggered Urinalysis With Culture Reflex order by discern. Performed By: #### 2 239302, 6746249, [id number] #### [facility] [address] [place] [address] Vaccinationson 08-04-2020 Vaccinations [id number] 0#1.00CD:127 Normal [facility] Coding Summary.on 08-03-2020 Coding Summary. CD:[id number]:[id number] Gh0bWw+PGhlYWQ+PE1FV MOxI20kfYPdiJ2BM4xIR R4VTFUEJHROEM7KCD2cq EX0PKdlE4LvngEb NifslCOsEG95BJa2IDN3 iHfwQLwcbJ8qwLNyT5o1 QvAyFP76iU89XBojEYRq UrK7FdGpqjbohJRa W6bbDdYsnTCpHym+PHRh YmxlIHdpZHRoPScxMDAl LpOrbGdqKU0uKo9qBMKl LWNvbGxhcHNlOiBj c3puVGZcNSlnGM0nvZjy Z5JbyOO3FCVrk8p2Xy84 dHI+YPQdJTR8nLubLEat q712VqBhe0veSGQ8 aHHlDLegQTG6R36mu7A7 OIRvLEIcXIH4cGB3oJ9u sHpgngcfO4HknIJiLlM4 NVM7eMSyuY0abSpp lwzcrX4yVtl+O85XZX0K HQDWPB4STia7I5StZziw dHI+RT91MWJeDP28kOQm lJPwh9xcgXw5MpXc XBHaREY6kEjaMNbje4Ah MWKyQ68sxVXui8V8YAFt gUxhtDEwCfNxlQP0eZ8a EQnbdpkuj5ajyzhl Njctd7mhst71eL77Z10g ORnhMBHxQTE0VYJuYINl tGvsey9fuB4tNh2+IDxj l8vgv7kpiKg4FmQr ECFphiVwrYttDQI2p4Mh Oj09P5HycFgys2ZfWlu2 yc59pEBes8S8iNL5KIwp YHRraI4yGSmyZeW1 PORbTjPzjK56hRUfKTtz Pj1dqMwpkRuvXI7vTOFm xhfoENLefA5fNORifWMc uMycGH0oHOXqyoaz f204SrBuUTG6MDXslXVy S0XwgJ3gZhEmHLUsOVJd F3HhoFGiNLudY308BYun BqX4CULxetMgQ8Kw VFPfuRuwUpJ7i4K0Rj5B i6DpsbtcIKL1IOfcOVA7 QjN1XaYfKnS3R4AwKzr9 PVGbcHeeOI8jM3Fp ZFUqmxbnrnojnJE4JYWa RDMwrD91lIOpBKgjKf3j i5O0l420DJYaXPEjrK32 Tc8gmGxgYVWbzEYV jO1mqmgfp6ksvhqgSfCv DABeNGj8ESj6UZGoyOkf DwLwUMM3LoM0DXG1rLBf uL9kfRjxcehjjR7i Oyc+H32bwU7iZPE1QGK5 kxcbDETfrmKoLE99BQ93 R5KqBmqqmFEtwSN+PGRp idMhlFzjNB4iCiCt e3uju5OoSFgtJ9EhVXJu UWzsLnv1NRJsRQY3zSR6 rV1qRYZoBHxny3U7uUD1 F8RfweCrtf4ad9hn YZKsYCpcV52bmINmt3U9 LPYldAY8NTIdjLxxJdUp kN76Vzz+MROifQbpr3Hs Eonzp5bqx3zcqXc2 IjMwJSIgdmFsaWduPSJ0 t4DrYi74F77dMUlcOVKx KKMoWJEnFHSuiMkwly4d mV6bDz6+PGNvbCB3 hGG2tD6dSLRpSxH7YDue M724QvCcyNQgFqezt9rv q9pflHk3AaEyEMOejjDc mPvmIYH7c6KsPh25 J54xZXizYHYnCTPdUJVx PYDscAalye3wtT4hWu4+ GR7nb0dlzg08mD39eMI+ DVAeSUM4aIpyCCpy QDLipJ9dWYjdStS5WAPb AcXbqW95pWPbMXqqCt3v uMtqmOzuBJ3dGILcdzpj j949ElAns6ruUTKk vXOjBBnsJOA5N02co2Y1 RLCbKWFzTWF7pVS0mY4g bGlnbjogbGVmdDsgdmVy hBnrHKkhFVtsB370 IHRvcDsnPlBhdGllbnQg ShSaQUk5T4NcHpv4MXHz fFiaJT6nhNCiOFgqVw3q kHuoqWgvPX6uRKFb gtnwv968GnLsh4dxTSUv hHRqYYdpYUB0W88io5A3 RDSwFAWkQIR4dYZ3eR2y bGlnbjogbGVmdDsg ynYffAzuKEyvISfsE283 IHRvcDsnPkJpcnRoIERh yHR3KI71KN33pFArn9A1 zCF4F8NbUFUevrtb vyndmEX3NEDkKJBaoQ41 Qj2blIxnXc6cSWVyOOT5 YACllFTsZ2LwrF6cYgXa PAJrZEZyB0VkcESf HWpwQ393ACyrDsH3AGPm exCkQ5RbWBZfjNpeGuW6 g1Z8Dj7RH4Q3AD31UX25 pGCji6U3lNO2J3Xe JOEkqbmtbmndvNC3NOBy VRYrgQ08St6pgJpdAw2w SIBdCGM1KIUzeEFsZ9Gj bG6sDgLhTVAyOYWi G7FgoMTmGXsnE161WAwc FvX1ZLNawcImJ2SzRJKy nHoxKkO6c0I0Jc0QUPv2 XP13UO64pDFug3P3 wTJ1F2JsVEDxuwyqswdy cLC1DJUhCCPplX78Xp9k kUmbKy4tPDTvCTC7SCGr dEAtF7NiyG5eQuTq QNRmXBPsA3GdtACgLDvv Y667ZIilGkM8OEPxjsAh N9IrVDAxrSiqXhT7v6X9 Ng8HYBUpUL85RKT1 pYC4HS55GK49F5KwExop dGFibGU+PHRhYmxlIHdp ZHRoPScxMDAlJyBzdHls ON8xVb0jEKMoSWLd wMpnkQNnEyYta9lnMIZn BBwnIZ3ghNqqL1DulRM5 JESzy3o0Un67L63iY3Rn dXA+FQAytKS8jYT3 pH0oSzTeKtM7DZmkH428 YiEgdFHcUylew3coz3jr pSu0BbM1DXEmhbAqjXdj DMX0y1UzNs07B65k IHdpZHRoPSIxNSUiIHZh rNxncd9ndV8qJk3+PGNv kQO0xEP5lW6qMwCnVfO5 LPfoT872YzLfaCPk Yxkph5wqm7vspEl8TcIh DMTdhnFvkCuaZYF0o6Nf Hu51F2MjvDihb9HkOxe4 ok76vLZwb4H8vKL3 W4VvLEKaebjveUHrgDds UN9yLLYdfkxjEORexW3d DCEaI6q3DaRrKlI5JKim H0HujnU2PLLkpGPd WAppDOY0Y17la5U1QSCo YBGvLQJ6oCT9gK5vbNzz bjogbGVmdDsgdmVydGlj XDdsRDxcE679AIUt oYbbESLfpI0kRMKkiEOe dPziXO0nKFVehjzuDtUO YlgSTk9wMOJNMnAND8Pz TDwvdGQ+PHRkIHN0 cXjtNJeaPSTsyL0qCKGb M6c9NaHuAgL4IXulU9Ws EXBsnlkyCu09cE6qGnUf RbM8KSooY4QjuhK1 VWPrjNGzKXceWTR4I79j p4Z4TFPsGIYuRNC6jYL3 jY2diUqkxxdoyPZmiPtn dmVydGljYWwtYWxp G849NPAtfGpwLrP9CfZd CpX1NDX0D8YsUri3TCFn sQrkPN3ngSLmRPtwHs2k oDwhbCtgFD5jSGRu ajeoKYAnqL1aEKGkdPVu jBqjTE0nXQIgdurgo751 AwThHUL7XPJqwYTxO5Bt uX0eCtRtMYUcGGVd E7FzqGBaXUbaF054OZcj UnB4OLRahoItJ2DnKUYe pLkkYvS7g4Y8Yc6xIIMI ZWFyczwvdGQ+PHRk GOM2uWhtOVieIWWgbX4o XMMuX0q3IjSwAsZ2YAab B3TbPBNejvocKa75mW6u CpTeYfS9FEuoO8Ly orC5JWYzfIWoHXhySVY3 U57hb9E4ZDQqOGXfZZV7 qRW7hY9byXfawxwhiZSn dDsgdmVydGljYWwt DThxW269BJGlyJfwQaZl bWFsZTwvdGQ+PHRkIHN0 zDzbKObjRQIusM0rDNMx P7b2VlQkMqH3IOoh H2GaQUNfnfioWa22vH4t WnAjDnR2IPenC3FcnjG4 XLLbiCSmOFxvVKY3T45l a4B5JFVuWLQhSEP0 mAX2dR7poNehvzrkkSNx dDsgdmVydGljYWwtYWxp M750LMQlbJyvGa3EBVAw aWFnZTwvdGQ+PC90 fb03C9ItZhtiOgz8PHWw WWJ3rMF1sQ4sFBKlQMvr h7C2zXY0X5LwwcOfjs4z v6jiGUIdCCrrX75k uDNrf5T7KIXmjDD7VKQb cFwrDoLgvQ85Moj+PGNv xAzvr6HsMraes7fxd6my aWv2QaPuFQZjvtXv zOizEFA8b8NuQk36R73l IHdpZHRoPSIzMCUiIHZh eAkuid1qcO7fMt2+PGNv kOE2pTO9lR1tKpXl UbE1QPtkB047XfMcjYVo Mqrdl1qqc3oewKa3BoRn XIXgieCvrKtzKQG4d2Au So68U0GaeTuxx7Ai Ixm2cd97xFVsx2Q9tNT3 G2WyWECmosskxIHbjKxh AY4kPYIepjorEZUreE8o CVWfA5j4BoPvIvU9 WNwdU2DignD6TOXmpZBc VSBhfGSChN5npgojq2hg myepXkZjUUTrFKc4DPv4 LWFsaWduOiBsZWZ0 IyZ6MWG3kWCynD5ujYyf ptxuqP3mZhn+EUu8k3gk vWYwVV4kuRD8DH59HC44 wFVez0E4dEZ1E4Uu JTDnwrcpdlhfvIC3KFZh SVLzbG81Im9elCwyTf6n QLRvTXN6KSQriIIfO7No vH1rQlUqIAIzTIJq F8WizOIzIOgzX081BRea AtW7LWYbxyZaE1VoXUEk lRlwNaG0k8S3Uw4UMG38 BB86CI42tLVtl8S0 sYL9Z3TwJDPfnuvagpxz jVZ5VHBlZPWnkR90Mk6o fBxbVl7iFNInJTX0EBJn hNWhP3IiiW5fFbTk YIFmUPGjF3GxkIQzSIse L572ORxnVzZ1FACztmPj W7KkRTRpnNtmHrG5v9P0 Fh0YOo78FF98YN16 wUEvg2A0kEM4M5PyUJAo qtcvztlslNR0LHEbQJEp yM94Xg1yrKeiLj7cGMWx REK3XIEowWQaR7Di iP9iHzXeQAFmOZHpS6Bz pAYbYZelO412PQccAcY5 KDQtktLuR1TzBJYeiBkd EbA5g8D8Cv3JJEim oov0Y6CqEurnqXY+PC90 WYIgKR18mJHobCMvk7bn fPz3UqSjACTfTZG3uOgk FCncm2UdZMLxI81x bGFw (more content not included)... Normal [facility] Ambulatory Clinical Summaryo n 08-02-2020 Ambulatory Clinical Summary {[id number] Normal [facility] Insurance Correspondenceon 0 08-02-2020 Insurance Correspondence [id number] #1.00CD:127 [facility] Insurance Correspondence Off iceon 08-02-2020 Insurance Correspondence Office [id number] 1#1.00CD:127 [facility] Insurance Correspondence Office [id number] 1#1.00CD:127 [facility] Nursing Assessmenton 021 Nursing Assessment [id number] 4#1.00CD:127 [facility] Obstetrics Office/Clinic Not jasmine 08-02-2020 Obstetrics Office/Clinic Note Chief Complaint OB 38w 5d, baby moving, occ. [place], swelling bilat. feet, woke up with Migrain in middle of night Obstetric History History (1,0,0,2) # 1 Baby 1 Outcome Date: 2008 Outcome: Live Outcome or Result: Vaginal Gender: Female Gest Age: 41 weeks Wt: 3232 g [place] [facility] [place] Labor: -- Child's Name: -- Baby's [...] trimester) Ordered: Office Visit Level 4 Est 97507 2. Obesity complicating , third trimester (O99.213: Obesity complicating , third trimester) Ordered: Office Visit Level 4 Est 46779 3. Depression during (O99.340: Other mental disorders complicating , unspecified trimester) Ordered: Office Visit Level 4 Est 40784 4. 38 weeks gestation of (Z3A.38: 38 weeks gestation of ) Ordered: Office Visit Level 4 Est 40555 TH Follow-up With When Contact Information Funmilayo ESCOBEDO MD In [address] [place] [address]- Additional Instructions: Problem List/Past Medical History Ongoing Attention deficit hyperactivity disorder Chronic fatigue syndrome Depression during Insomnia Obesity complicating , third trimester Ovarian cyst Supervision of high risk in third trimester Historical Medications Multivitamins, 1 tab(s), Oral, Daily Allergies No Known Allergies Social History Alcohol - Denies Alcohol Use, 11/21/2009 DENIES, 04/14/2020 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 2020 [employer] Normal [facility] Discharge Instructionson Discharge Instructions [id number] #1.00CD:127 Normal [facility] Inpatient Clinical Summaryon 07-31-2020 Inpatient Clinical Summary [place] [address] Clinical Summary Person Information Name: MYA MYLES [facility] Age: 30 Years : 1990 Sex: Female PCP: Chao Blackwell III, DO Marital Status: Single Race: White Ethnicity: Non- or Language: Sammarinese Visit Id: Visit Reason: Speciality: Acuity: Obs Enc Type: OB Triage Med Service: Obstetrics Arrival: 07/30/2020 21:16:34 Discharge: 07/30/2020 22:58:00 Dispo Type: Home (Routine DC) Address: [address] [place] [address] [address] [place] [id number] Provider Notes: Diagnosis: Problems Active Insomnia Chronic [...] up: With: Address: When: Funmilay[address] [place] [address] Business (1) In 3 days 08/02/2020 Comments: [...] Type Location Start Finish State [facility] 08/02/2020 4:30 PM 08/02/2020 4:45 PM Confirmed [facility] 09/15/2020 9:00 AM 09/15/2020 9:15 AM Confirmed Patient Education Information: Normal [facility] Inpatient Patient Summaryon 07-31-2020 Inpatient Patient Summary [address] [address] Patient Discharge Instructions PERSON INFORMATION Name: MYA [...] Follow up: With: Address: When: Funmilayo [place] [address] Business (1) In 3 days [...] provider. Type Location Start Finish State [facility] 08/02/2020 4:30 PM 08/02/2020 4:45 PM Confirmed [facility] 09/15/2020 9:00 AM 09/15/2020 9:15 AM [...] Leaflets: You may receive a survey from [employer] asking you to rate your care experience. Your feedback is important and will help us understand what we do well and how we can improve the quality of care we provide to you, your loved ones and our community. It?s an honor to serve you. Thank you for choosing [facility] Consent for Treatmenton 07-19 Consent for Treatment [id number] 0#1.00CD:127 [facility] Consent for Treatment [id number] 8#1.00CD:127 Normal [facility] Insurance Correspondenceon 0 07-29-2020 Insurance Correspondence [id number] 41#1.00CD:127 Normal [facility] Insurance Correspondence Off ice07-29-2020 Insurance Correspondence Office [id number] 5#1.00CD:127 Normal [facility] Nursing Assessmenton 021 Nursing Assessment [id number] 1#1.00CD:127 Normal [facility] Ambulatory Clinical Summaryo n 07-28-2020 Ambulatory Clinical Summary {[id number] Normal [facility] Obstetrics Office/Clinic Not jasmine 07-28-2020 Obstetrics Office/Clinic Note Chief Complaint OB visit 38 weeks . Obstetric History History (1,0,0,2) # 1 Baby 1 Outcome Date: 2008 Outcome: Live Outcome or Result: Vaginal Gender: Female Gest Age: 41 weeks Wt: 3232 g [place] [facility] [place]: -- Child's Name: -- Baby's Father: -- # 2 Baby 1 Outcome Date: 05/26/2013 Outcome: Live Outcome or Result: Vaginal Gender: Male Gest Age: 39 weeks 3 days Wt: 3390 g Hospital: -- [facility] Labor: 5 hr 55 min Child's [...] trimester) Ordered: Office Visit Level 3 Est 11298 TH 2. Supervision of high risk in third trimester (O09.93: Supervision of high risk , unspecified, third trimester) Follow up in 1 wk. Ordered: Office Visit Level 3 Est 42590 TH 3. 38 weeks gestation of (Z3A.38: 38 weeks gestation of ) Ordered: Office Visit Level 3 Est 88550 TH Follow-up With When Contact Information [facility] In [address] [place] [address]- Additional Instructions: Problem List/Past Medical History Ongoing Attention deficit hyperactivity disorder Chronic fatigue syndrome Depression during Insomnia Obesity complicating , third trimester Ovarian cyst Supervision of high risk in third trimester Historical Medications Multivitamins, 1 tab(s), Oral, Daily Allergies No Known Allergies Social History Alcohol - Denies Alcohol Use, 11/21/2009 DENIES, 04/14/2020 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 ? 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 ? Hand disability rater. Health and safety ? Rectal thermometer. ? [...] ? Consumer Product Safety Commission: www.cpsc.gov ? [place] [employer]: www.healthychildren. org ? Safe [...] 01/17/2009 Document Revised: 01/17/2018 Document Reviewed: 12/25/2017 [employer] Patient Education ? [address] [facility] Coding Summary.on 07-27-2020 Coding Summary. [id number] Gh0bWw+PGhlYWQ+PE1FV NLrT06rvMEypE0NQ8nEQ S4UXLVQEZVSUX2ERO6ay VL3LWhoG6DfuuCz FuisjEEbEF43TXt7RYL2 mZluIVifsA9cnBVfY8j1 UcEvGR72sP87GBdbJSKl ZyB4ZxCgkgdipUFm X9llFwTaxCDjCmr+PHRh YmxlIHdpZHRoPScxMDAl EuTciUywFN0xLe4bZBGm LWNvbGxhcHNlOiBj j8qoSJJeNXjwQX6wzTav Z0DwfPB0AZVpp8o8Ba48 dHI+XWXwMCZ7aUinYNev d308RjXma7cfRYM0 zWUcJSqqFKN0R62mw3G4 BHQaZDSnWOV2hWN7zH1m oQcyfadcD4SosDWhWyH8 BXS0fVHhvL4xrRqn janvyR5tVcm+M96OAT0H IPLRZQ7WJtv6K8SdLpus dHI+FV16NQMwHS87tWLy mQKhc7hkvPs1DbCq IQAqWFH0zPisXNesd5Gl ECOiM91qnBNvm9A1BSAk aTppcECxWmRizSV6bS3v THqwdacew5drkpqd Yolpy8xwre94tV29R73b NStdGSItZVD8OSCyBZDg uDtbdc8wjY6iSu3+IDxj f0mjq3xpyBs4EwOy QQSedbBkuDmxZAJ3d1Xj Vd87U3OrxQigz0JjUpu1 gc59iTBhu8S0oFC7NVmr RCXzlP9tHKtbFvR8 HTNiKnFohD05oVOfHSlz Hl1wjKbgmUicKS0uPFTg nnqiPVRrgE3hWJItqQWs eOpnRH4cLQMmnnbz a471LwPvNOX8BYIzcAXb L3GirR8sOkJrYRQkFGQy N2KgjIAiCQwyU251INaj GnP6GUPrjnClZ6Ka WBSirRexRnH8s7E6Qb3P l9UdridtBVM9DBcoBDP3 BkQ7CpWrPgV5Q1VuUsq5 HHUtuIhaIT3aD4We ECVtjlpnofsafCD7DMKa OOCcsP79iLHfTIxcNb5z j3R2o188SNMuJDAtyV00 Em1crJiqTYNbiQGB sF7vxgdgl5twuqsgVnWj XBMzDQd4MAk8FNNxfVnw NuKxCVG4LfF3PMS8qIWp gJ8bxSkdswwclF8k Oyc+L65xtX6sTYG7NTW4 akxzXYJfvsSrVP63FP66 X7PbKipnwMFurWZ+PGRp coOxsLehJU9qWqFs x6ucp2OiDHfiN6RuPAMe BYtbBjy3AILsDCS4iPE5 pA7mPJYqUQzpl7Q5sQT5 D3RwvnPcpw4qf0vz AYYnPOfvL97zwYGwl4A1 VIJioQH0YUTgrJqjCjOl cZ57Als+LROuiPape5Vh Ccckt4aae4uirZs8 IjMwJSIgdmFsaWduPSJ0 f1GaPu53Q85hWUhaGWNm RPZcLDLqNLJdgSkwcc6a wL7gPc5+PGNvbCB3 lGW5aX6vNWOkMmE4EDzw G813RsKlkWHtFhvzf0qb u4szfRx6DmRjLMInqoVb vXjjENH5n7YmIb11 J96gWXxjPQSyAXLqDYSv QOWltAqlbq4ydE2sMw8+ LA2dl7wsko59aP75kLI+ LYAgETT2yPruBUqe CZFhoL9jFMdoYhQ8UNNi TsCekR53fYEdVIiuPm6l lOljyJdjNT8iUPYpdwpo s844GvSoc0wcEHSa kPApVNnwJYB3T13im6Q2 DMRjANCuEUW1eQS8pA3s bGlnbjogbGVmdDsgdmVy nRuvXSieONakL565 IHRvcDsnPlBhdGllbnQg NpBuRZv5I9IwQfd9WAUg gBvnET8xiDEcBJiyYv7w zLmrfSajXC3sPFYp kqmlq220DaJdv3lpDAVh sZTlTCakUBT9G60zh3M8 IBWiZXWjMUK6oDQ1mJ6t bGlnbjogbGVmdDsg hlDweSkzNLeiUMjvI520 IHRvcDsnPkJpcnRoIERh vNI9GO16BL04qGGuv3L9 gER0N1ZzOWRgymix izlfgTG0EZKrHQCkcE31 Jm5smWoxGi0zRNRqQJP8 CPYvrEWhJ0HypP8tMhVu HFSgCDPpJ3IysCWe NUimR625DQgxFcY4ACFi tqKjL0LsSHFgoZbuXvE6 m0L5On1SG3D1LS51YF37 uMCvh9W0mOJ0I7Rm JPZlltdkaqadxID1CSUu PSHdtE29Fu7rlGvaFw5a CEHxOQF3MASikCPbN9Bb pV2tKzQvLDKhFEBb A4XvpSXhPOogN913IZgb EoO4CSJwraNlI5SqXMAw aWrzOhV0v3N6Rf0DSEm1 KP89HX30sMJxq6D8 pSW8J9QpJJXzrvydezxc jBU9YZXvYCVbcJ09Xd8x zJcvUr7fXSNsXER1KBQq gLKmS6ChwA2fMhFf VJQeIKOnD4UtjBGwOOfq D514HLehXdE9PTPqubId N3JnTEIqtHseEbB5u6T1 Ra7QDARaZP13AQA4 eTE5YA27JK01V7ZgTzgs dGFibGU+PHRhYmxlIHdp ZHRoPScxMDAlJyBzdHls KF8hKl0yPSAiSRYf xRcgkMKjOsRjp9yzFMTn YDklYZ4uaObhI6QxlGI4 VUWql8o3Oe25Y90bC3Mp dXA+NYQvjXF4eUK8 mY7fWaRvIeQ9ZTwvM936 BbHdyPJcBmsio6fpc5ro pWe3IcY7KSAenaDhaLjr ISU4x1LkMs60W84t IHdpZHRoPSIxNSUiIHZh rTqhnz2slE1nBh0+PGNv xWH2jEZ4mJ2bDnPiGtF4 LCamG648LzGqqOXh Oyedd5tqz8doxNp2DqQg TVBvgpNncCocXHM0g1Gx Sq21W9IxjUrwc5CeQoh3 me74tUVce0M2kRY2 B9NqHIVzhzovdJUyvMsa AX1rTEKkayayPMOjkN8r XPWvV6a0MlAbKsF0IVkg G9RyiyZ3JLJosIHh NCuwBFP4D96ft5D8GNKb EHStNGL1lHR8aV5qcGkn bjogbGVmdDsgdmVydGlj SMwkWVbsB038VXSf uJcuJMGxoN3oWMXwxYZl mLxdTP0vXAAokypzPoXI ZzjYTn3aMYOVJqPQK2St TDwvdGQ+PHRkIHN0 kYpkJHgiZQNihC0vGUKd G3c6MgCeOeV5OIrlR0Rs SAMeojitOu94hE1uWlEx UnR4NDazI7PexcY5 VQSviZRnBCneKOE8V96b a4A0AQMmBBRrFBR8kTK9 nV9owVlmmwbjbDZcoMrz dmVydGljYWwtYWxp T836NIOngZznGkY7RiJo DpM7BYO3I4QsZct0MSCc qBhwLV0veBIvZCvgDo5f iYgqlJjfOU8xYSQc jvtiJTHvnY9iXKUiuNZq jEdbBJ2rIWDmgmcpy187 QlWwQDC6XFNjpHNnU7Ov kD6mQhDuJJRnMWFl C3PilAMpJFfgC187QQus UoL6UNUkygQxV3BsNOQt kYisCbZ4t6T5Sn1eEOWO ZWFyczwvdGQ+PHRk ABC7yYoaUAxqKFNfcL4r CKWkR2g6QqLnJdH1KCgn S1PhGWFxnggbWg37zP3l YnWpZxP0HEgdU3Mr dvY3XIRrxRAxTCkjEBF7 L73zi7I6VHGmFRTbRLR3 qBC5bD3pxDxhpypdaURy dDsgdmVydGljYWwt POeiK253DSLboEmwLzQf bWFsZTwvdGQ+PHRkIHN0 fCmzWAvdLAYnnX9gGWGh J7e3PuNhCxS3YEij U6FfSPHyhdfgSd90qZ9y ItFiTeB2KInjF2XhtpL5 KXLxrACaANqePVM2H09e b7A6XTIdHPNlFKH2 rSR6aV6sbQoetocbhBDk dDsgdmVydGljYWwtYWxp R510RUBnxAacUi0VLBHk aWFnZTwvdGQ+PC90 ov78F5VuPhgaMdf1RSUi OEV8kDC5yY9cOYXnRCha r3R6pCU6S9DvuoIwte1f d8wpNOOoFLdrE60u aSBez2B5IPJlgWR1MNXs nCagImDalY91Ybu+PGNv qBaxj7JlKybwq4fcz4fw xVn4OdJwLLXfiyTh uXdiHAU7u3IbIk03Y23e IHdpZHRoPSIzMCUiIHZh vZvvfl9klS3iXr5+PGNv zSJ6hTV4hI9mQkUy IlU3SDjsO046IwWmqNKz Mswig9ans8lhmYp7ZiVw LUMoxiSenDxjEFF2x4Jq Qh67H3LlfSpyz5Xe Dwv8dz66aYGps7I5kKG5 Q6GgDOYwnwgyxIDbuDha LY2nTMFgxpfjYNAabQ4m BNXsO5j8OgUvYxU9 ODvrH2FyyzA7YMRdaSSu TXHsjYKXrG4lbjcve9yw ppncEoYzGKVhSJt9NFh8 LWFsaWduOiBsZWZ0 OsT6BYK6rAZkzX4lmRdw jwytmV8yOcz+HMk0j6cp vZAdZH1ybII5NV96EN21 nJTwh5F3mGZ1J5Qv VODlxvxsktjcrBD3YBTe SSDhvB33Tr2flCdhPz1o WQBoSUY1SSZglSEcE1Ew iG3wEnYqUCOqXJMd V5ElzIVtNXjqL696XSko OnZ6JGSiimSrN0WyBRIk zQesOkE1e8B1Eq5LXX41 JA34UR50wXWsl3U0 wWQ7P9HmXAOgzcumubdi rMO1PNMrMCIagR69Rr5q oHncEp7tBOZzRRM8VTSs jJTwK4HsaQ0fZeUr HIKeAQFsI9NuhQQaZRca S597LIxjKgY2RKJblwEz F6TpPSOmuVfdVoR3t8X3 Oo5PYh35WS84DH49 yFIyp9M7sSU4Y8AoXMKg tqwmrlxptIG7AVCaPWZr rO56Gc3ytHcsJz7eVNPp WNM7EKHhyIVrO3Qh nT2eRuTkEFJgCLZwF6Cp gXQeHNcvL711XHwrTkK6 FEZwquOaG2IpXNAchHdf PvT1h5I4Hc4NQYoz ggd2N3MhFzzuxWM+PC90 RKCnCW89tKSlwVZua7fq kBj9PcIzJCHkFSY3aOya BNexc7MwPFOjE92o bGFw (more content not included)... Normal [facility] Consent for Treatmenton Consent for Treatment [id number] #1.00CD:127 [facility] Discharge Instructionson Discharge Instructions [id number]#1.00CD:127 Normal [facility] Comment on above: Other Comment: incco rrect title Discharge Instructions [id number]#1.00CD:127 Normal [facility] Inpatient Clinical Summaryon 07-26-2020 Inpatient Clinical Summary [address] [address] Clinical Summary Person Information Name: MYA MYLES [place] Age: 30 Years : 1990 Sex: Female PCP: Chao Blackwell III, DO Marital Status: Single Race: White Ethnicity: Non- or Language: Sammarinese Visit Id: Visit Reason: CONTRACTIONS Speciality: Acuity: Enc Type: OB Triage Med Service: Obstetrics Arrival: 07/26/2020 14:59:40 Discharge: 07/26/2020 16:40:00 Dispo Type: Home (Routine DC) Address: [address] [place] [address] [address] [place] [id number] Provider Notes: Diagnosis: Problems Active Insomnia Chronic [...] Follow up: With: Address: When: Funmilayo ESCOBEDO [employer] [place] [phone] Business (1) Within 1 week Comments: Call for any problems. Call for fever > 100.5 F Return for contractions closer, longer, and harder Return for decreased movement Return if ruptured membranes or vaginal bleeding Type Location Start Finish State [facility] 07/27/2020 2:45 PM 07/27/2020 3:00 PM Confirmed WH [facility] 08/02/2020 4:30 PM 08/02/2020 4:45 PM Confirmed WH [facility] 09/15/2020 9:00 AM 09/15/2020 9:15 AM Confirmed Patient Education Information: Normal [facility] Inpatient Patient Summaryon 07-26-2020 Inpatient Patient Summary [address] [address] Patient Discharge Instructions PERSON INFORMATION [...] Address: When: Funmilayo ESCOBEDO [address] [place] [address] Business (1) Within 1 week [...] provider. Type Location Start Finish State [facility] 07/27/2020 2:45 PM 07/27/2020 3:00 PM Confirmed [facility] 08/02/2020 4:30 PM 08/02/2020 4:45 PM Confirmed [facility] 09/15/2020 9:00 AM 09/15/2020 9:15 AM [...] Leaflets: You may receive a survey from [employer] asking you to rate your care experience. Your feedback is important and will help us understand what we do well and how we can improve the quality of care we provide to you, your loved ones and our community. It?s an honor to serve you. Thank you for choosing [facility] Normal [facility] UA With Cult Reflexon 2020 Bacteria LM Ql (Urine sed) TRACE Normal Trace [facility] Comment on above: Performed By: #### 2 [id number], [id number], [id number] #### [facility] [address] [place] [address] Bilirubin Ql (U) Negative Normal Negative [facility] Comment on above: Performed By: #### 2 915248, [id number], [id number] #### [facility] [address] [place] [address] Clarity (U) CLEAR Normal Clear [facility] Comment on above: Performed By: #### 2 721576, [id number], [id number] #### [facility] [address] [place] [address] Color (U) YELLOW Normal Yellow [facility] Comment on above: Performed By: #### 2 387727, 2430424, [id number] #### [facility] [address] [place] [address] Epithelial cells.squamous LM.HPF (Urine sed) [#/Area] 5-8 Normal 0-2 [facility] Comment on above: Performed By: #### 2 167389, 1978815, [id number] #### [facility] [address] [place] [address] Glucose Test strip (U) [Mass/Vol] Negative Normal Negative [facility] Comment on above: Performed By: #### 2 988880, 7729174, [id number] #### [facility] [address] [place] [address] Hemoglobin Ql (U) TRACE Abnormal Negative [facility] Comment on above: Performed By: #### 2 968268, 6863549, [id number] #### [facility] [address] [place] [address] Ketones (U) [Mass/Vol] TRACE Abnormal Negative [facility] Comment on above: Performed By: #### 2 308021, 5197107, [id number] #### [facility] [address] [place] [address] [place].plasma/[place]. RBC (Bld) [Mass ratio] 0-3 Normal 0-3 [facility] Comment on above: Performed By: #### 2 895858, 6465308, [id number] #### [facility] [address] [place] [address] Nitrite Ql (U) Negative Normal Negative [facility] Comment on above: Performed By: #### 2 931233, 6953808, [id number] #### [facility] [address] [place] [address] pH (U) 6.0 [pH] Invalid Interpretation Code 5.0-9.0 [facility] Comment on above: Performed By: #### 2 820704, 5318894, [id number] #### [facility] [address] [place] [address] Protein (U) [Mass/Vol] Negative Normal Negative [facility] Comment on above: Performed By: #### 2 499921, 0870130, [id number] #### [facility] [address] [place] [address] Specific gravity (U) [Rel density] 1.020 Invalid Interpretation Code 1.005-1.030 [facility] Comment on above: Performed By: #### 2 852589, 2761985, [id number] #### [facility] [address] [place] [address] Type of Urine collection method Clean Catch Normal [facility] Comment on above: Performed By: #### 2 079516, 2021795, [id number] #### [facility] [address] [place] [address] Urobilinogen Qn (U) 0.2 {Henny'U}/dL Normal 0.0-1.0 [facility] Comment on above: Performed By: #### 2 956949, 0699808, [id number] #### [facility] [address] [place] [address] WBC Auto Ql (U) TRACE Abnormal Negative [facility] Comment on above: Performed By: #### 2 233665, 1690613, [id number] #### [facility] [address] [place] [address] WBC LM.HPF (Urine sed) [#/Area] 0-5 Normal 0-5 [facility] Comment on above: Performed By: #### 2 023342, 4428842, [id number] #### [facility] [address] [place] [address] Yeast LM Ql (Urine sed) TRACE Normal F [facility] Comment on above: Performed By: #### 2 785197, 7154482, [id number] #### [facility] [address] [place] [address] [place]enton 07-22-2020 Consent [id number] #1.00CD:127 Normal [facility] Consent for Procedure/Surger yon 07-22-2020 Consent for Procedure/Surgery [id number] #1.00CD:127 Normal [facility] US Follow Upon US Follow Up [...] Positioning Vertex Amniotic Fluid Volume Normal Normal [facility] Ambulatory Clinical Summaryo n 07-21-2020 Ambulatory Clinical Summary {[id number]}CD:[id number] Normal [facility] Ambulatory Clinical Summary {[id number]}CD:[id number] Normal [facility] Obstetrics Office/Clinic Not jasmine 07-21-2020 Obstetrics Office/Clinic Note Chief Complaint OB 37w, baby moving, swelling fingers and feet goes down with rest and elevating them Obstetric History History (1,0,0,2) # 1 Baby 1 Outcome Date: 2008 Outcome: Live Outcome or Result: Vaginal Gender: Female Gest Age: 41 weeks Wt: 3232 g [place] [facility] [place] Labor: -- Child's Name: -- Baby's [...] trimester) Ordered: Office Visit Level 4 Est 62405 TH 2. Obesity complicating , third trimester (O99.213: Obesity complicating , third trimester) Ordered: Office Visit Level 4 Est 10109 3. Depression during (O99.340: Other mental disorders complicating , unspecified trimester) Ordered: Office Visit Level 4 Est 36629 4. 37 weeks gestation of (Z3A.37: 37 weeks gestation of ) Ordered: Office Visit Level 4 Est 31682 Orders: metronidazole, 500 mg = 1 tab(s), Oral, q12hr, X 7 day(s), # 14 tab(s), Refills(s) 0, Pharmacy: [id number], 158, cm, 07/07/20 20:05:00 EDT, Height/Length Dosing, 88.3, kg, 07/14/20 16:41:00 EDT, Weight Dosing Follow-up With When Contact Information Funmilayo ESCOBEDO MD In [address] [place] [address]- Additional Instructions: Problem List/Past Medical [...] Protein Urine Dipstick: Negative (07/21/20 16:41:00) Normal [facility] Comment on above: Result Comment: Elec [...] 05/13/2008 Document Revised: 07/07/2019 Document Reviewed: 07/07/2019 [employer] Patient Education ? 2019 [employer] Normal [facility] Provider Letteron 07-21-2020 Provider Letter July 21, 2020 To Whom It May Concern, Mya Myles is scheduled to be induced on 08/04/20. [facility] [address] Normal [facility] Ambulatory Clinical Summaryo n 07-14-2020 Ambulatory Clinical Summary {[id number]}CD:[id number] Jerardo [facility] Obstetrics Office/Clinic Not jasmine 07-14-2020 Obstetrics Office/Clinic Note Chief Complaint OB 36w, baby moving, [place] in morning, feels like underwear are wet and has to shower frequently. Contractions all night and not able to sleep Obstetric History History (1,0,0,2) # 1 Baby 1 Outcome Date: 2008 Outcome: Live Outcome or Result: Vaginal Gender: Female Gest Age: 41 weeks Wt: 3232 g [place] [facility] [place] Labor: -- Child's Name: -- Baby's [...] Test Q0114 Office Visit Level 4 Est 02644 NC 2. Obesity complicating , third trimester (O99.213: Obesity complicating , third trimester) Ordered: Fern Test Q0114 Office Visit Level 4 Est 21289 NC 3. Depression during (O99.340: Other mental disorders complicating , unspecified trimester) Ordered: Fern Test Q0114 Office Visit Level 4 Est 93997 NC 4. 36 weeks gestation of (Z3A.36: 36 weeks gestation of ) Ordered: Fern Test Q0114 Office Visit Level 4 Est 80542 NC 5. Bacterial vaginosis (N76.0: Acute vaginitis) Ordered: Fern Test Q0114 Office Visit Level 4 Est 98077 NC Orders: metronidazole, 500 mg = 1 tab(s), Oral, q12hr, X 7 day(s), # 14 tab(s), Refills(s) 0, Pharmacy: [facility] #[id number], 158, cm, 07/07/20 20:05:00 EDT, Height/Length Dosing, 88.3, kg, 07/14/20 16:41:00 EDT, Weight Dosing Follow-up With When Contact Information Funmilayo ESCOBEDO MD In 1 week [address] [place] [address]- Additional Instructions: Funmilayo ESCOBEDO MD In 1 week [address] [place] [address]- Additional Instructions: Problem List/Past Medical [...] type 2: (more content not included)... Normal [facility] Comment on above: Result Comment: Elec [...] 05/13/2008 Document Revised: 07/07/2019 Document Reviewed: 07/07/2019 [employer] Patient Education ? [address] [facility] Coding Summary.on 07-12-2020 Coding Summary. [id number] Gh0bWw+PGhlYWQ+PE1FV JBgQ45phVYboK6SB3aVE H5ZBOROACDGGX3OFH9eq NI6FNjeR8YfpsBj VlbzbBKcMX73BRw6EUV0 sNwyUIwbnA5wmEGrU4u1 OmAuJA99rI53FAmkAOKh ApY0GfIzvnrtvLEh V7yeNfVtuJHlUdc+PHRh YmxlIHdpZHRoPScxMDAl BmSmnNlwJO4rKl1uCSVn LWNvbGxhcHNlOiBj c9zqZIIoZMizTV3kqMfw T9LzyZZ5ENJhs4y6Iw87 dHI+PNZaBKR5fNehCHuz w600QoIkp4wfMGZ2 uFLqTOebMKE1C58bs3F9 DJPrEULqQQR7vAB7uM0m kQdxtpguP2CaxKIuRpX1 FYE0jDLdwV7hvDff csmsxB3xOwi+L23TMR9K DHILFC1TCvn2U5ZdNgwp dHI+YN75SWVdNF37uQCh eCQgz9ztuZl1AmHq DXVeKBZ4zTxbPVxip5Xl LGEoT88xlHOxp2V5PNIh qToawNGkBhFgbDN5fZ9j ISmmzlcns2rwztsd Zaboe0hens54tY75T39t ATyqPEXhGKH4EQOeLVAx uJquom6cnR7yFy1+IDxj f5krl0emwOp5QcLc ITHfbeJxyIjrRZN9r4Ut Uo19E9IdyEgbt3VxUul5 ud52qILix2W0tKZ2ILcg AJTsnZ3hUZsvKeV3 YXPwTyVkjC68nHSyLUed Xl2wcJmrcXzuOA2vSDJc hunvYSCkoG0tNYGgvLRa bCvvAR3lOZJdtltt p039KgIeXZW7UJLtqLPo A4RxjL8iBhIfLEBfACFr U3VjtYYbENeiE188ZUpi KsQ3FBFyufFtX5Sx VEDibXdlEjI5j3V3Bj9B u0XeeaqkTSC4GOunYAH5 OuG8HnQxHhZ5N0EeNob5 YVOujXccYR4oL3Li VJFthdigrephmAG3FYZd QYDkpW65qHWhUMpjXg6r z2L8r825GIZtMOTfhA07 Rw9ofMviVMLczCZY jB0htwlrg1nbydejLyPh ZYVjOZa8ZGg5UJHdmLsl HhImJQI5PmX7EEH3fBGv jJ6udWfukaofzB5r Oyc+T10bhY8kKBP9FYJ8 xwhvBEXwqyItVF92AA26 M9IcFczcdAEzzNX+PGRp neWcdYjfEF0rAiYb e8pum9CdKEngU3EnTSGm PMbnSbf0RGPkEUQ8eLF9 iT1vBCLbBGbuw1Y0fQK7 U4PwrsXohw3qv9hl VOAsGDkmN90cfDYyw0R6 HXNbsYI5WBCxkJozTmTu tT43Vga+YCQevQrxj5Hb Jpljd3zjg3parZw8 IjMwJSIgdmFsaWduPSJ0 i9WwBs50M15zQVnxEWVu KYBeCWIsGSTguLidjd7j mF8qHs4+PGNvbCB3 mVZ6qW4dLJDpJbS3TTro T120EiWipBSkEjuze4av y9pfjPh4SoZxMRUmhcSu wFmhLUS1u4PsGy07 J49mAKheKRGsLAYiITBs UOAqkHbxyk5mhA0cGz4+ TA8ji0qmgd78fZ75sPX+ VYKjPGS8nPwrVUbb BVBafZ1cOMobTmU3FZCy GhIarI32rKCmHOxpMb1m hTreyZdvFJ1jLUYijgoa v500NvIby9khHNGg qLUiYXxwESN4L94hb6F2 OPYcNDCmPIX7jQA8oP6o bGlnbjogbGVmdDsgdmVy jYlyNDbpWGalQ506 IHRvcDsnPlBhdGllbnQg AbPePRx6X7WdLws9NVRd cQdxEK1zzHArLPuwQn7k lFypyCgeAP1wISWn ioqyt790RcNit3yyGJTy oWYkRSfwWQQ8C25dk4I7 VOGaBABaPQE0vBL3yR8l bGlnbjogbGVmdDsg clZrvEmsUNfkJXozJ119 IHRvcDsnPkJpcnRoIERh mUO3XM15RD58jSSqn5X6 nLF5K2BlCEZfmylb dbvbdJV2LYKpVVZuaN20 Zo2qbScmUw3bHVPiGDV1 DGQevPRkW2LqjY6rQdYy TVTrCNCvJ0HqhVEa SPqwJ041TAhdCrT1BJKz csFwK0TcZRHcwLqoLbL2 r5S4Up0LO4I6LT16SS68 iKGdy1Y8cYI0W2Lm RCVmtsacfxtczDI2GTBl HMFegL23Nu4cnDaoIp0a TJJmBXW8SOPedFHqP1Wi eR1mWdAtBXOrLLCw Z4WpbJZbDErqX214BZyp CuF2UVKcjvUkF4EsVDQa aCxbEhM1o4B1Xg3BAFy3 YT85KF92gNUhg5M1 yHK4Q4HxBGLizwjythxu rIY3TQRpLMDjsE77Ls3h dBiqGa6lQXLoWLB9AXOg jNBhH3AcvM9oEdSk NOLxTBIrF8OlpYAnTNuv Y903VIjsSoG6EDErhiEv N5KvQQExcSicFoN7t2U1 Rj7MOAImJU97YAO9 mZE0IC01LI95D1QkSifa dGFibGU+PHRhYmxlIHdp ZHRoPScxMDAlJyBzdHls AN7wRu5iDFCtALZj dHbklUBzDePgo2odBZAv GXkgIG0kpOxhE2XpdWX5 MOSud2b8Uv90S60uM0Zk dXA+SCPfhET0lIO1 sD8gNeCkDaR3QNaiQ598 AaIzwMNxOatdo1lea0pu tCg0ZsH9SMWdisAcwMrp DGU6z1YfNr30K19i IHdpZHRoPSIxNSUiIHZh vAoayz6fpS4aUb7+PGNv wWC2fQA1bL3tXoPzIuF0 IJlpU809VsWafKIl Xpain4pih7yfdNa3SkXl DTUkwpLlyVeuICW4e8Zm Dr48C5TviJock2NdUxs5 vg99zOJcp6U0lKH0 P7NiFGAikhxpqSMifExm RQ0mXMMeqpgdTBXboR0z TKUtY8g3HsVdJyG1CJnn Q5VdavF0VNPszMOv QNmpBYM9Z55ye3X8MBEv KLUbHRD6pLJ6oG3fwCtv bjogbGVmdDsgdmVydGlj TCgpMRjmI025EXDe xGocLEBgqH6sHQIxwXHm pEqyNR3oOJEzguziCyBH BnyGJd0hVJXRXfZEE2Sx TDwvdGQ+PHRkIHN0 kSbyPOpqQSHurP7dFRCu B4u9UwMvDyW7YTmoI4Nl IYWjkyacGr23tQ6fDyAs IaU1MSaaE2CvsfH4 QTBvfOUsLWftLEX9M40o m4A5YKHsPKEzTAW9nRM9 bS4avKzijhyvnKWuePhk dmVydGljYWwtYWxp P420MEPyyHtrKmS6CdOx JrL1SCI8M0RmMnz5MEJh rUorJA3tcIVuABsgDs5a gJcgjCmuIN0wRYXz nsksLGJfnH9uLACvkWSf cSbmZY7qWRRuzvhbg873 GhXzKYE5AYSlpNUkZ5Tc iE6wHfMhOCQmIZYk U2FfgWNhNYryS753TGvw TuF6CUQvkjLjH0IiOJWo uDluQmS1k6M3Le0vAYCF ZWFyczwvdGQ+PHRk MLD5oVugJOlvPDXcgW8m LMLlY3d1AfUjBoB7GJof Y6NpRQJmyqedSr21iR7m HiUqCmY7EOduH1Nc siZ8JONfyTLvXDbqKKP7 P03ep1H5RWAbPQScEQK5 yEZ4eM2bnArokdnbmNMd dDsgdmVydGljYWwt PWxwM945NZVvmGboQhFz bWFsZTwvdGQ+PHRkIHN0 mNpyRYtgTHXvsN9sZPAk I2s6KoJeAtG2OJtr H8MkVEOrcoacJt69iS6m JkTvXjU9XPezU7WjsaX3 PXFnkSNtLCepSGM4S61l u7N2REQpIICrJZM3 kIW5sU1ddOmjzneqqIAq dDsgdmVydGljYWwtYWxp I120OHIuiLnqQn5SKDSk aWFnZTwvdGQ+PC90 qe48J6RpVyhkUok5QVKf LAJ3bGT8mP8tLYSjLPgn o5Z7uNS8R2ZeaiUgdd6m j3avOOJbPAcvV02d cPPup3R3WKMbtVF4TNNm iWwzWnGuvF66Inp+PGNv jLbum5VtTtxox8wur0be kEi3VzXcTPLgekDi eWjuUGR5f5JzUl62Y96d IHdpZHRoPSIzMCUiIHZh dLphab9qgM8sLh8+PGNv fDJ9mKP1tO6iHtMx SfV7TLbhH034RmTwaCAs Rmoog7oxs2tweWn7IfEf UUFvcfYtrDtdSGP1s1Ww Jk51I1EeeSbcu8Vs Cow6ys61yMMam3B0nHD5 T6JpNPCvkfoiyBNtdJyq WG2nVTZwanooRQHbmJ9s UCVfG0t2ExRePwS3 MJvlT2YaqtJ2EMGykKIe QUYcrBHEjV8knxczi9nb zaipPkGfPOWwADa1TJz5 LWFsaWduOiBsZWZ0 OtO2JOV1vXOkvO0pvZqq xyjkuI6eHax+XWy6n5ll bDEtAN5nyGF9RZ90FJ45 oEIhe3L2jTN2W4Hs IPHcbpegytjxzRR6DSHe ZRWaaQ05Xp2xqAlvIl5h GAKlTRE3RTZvrLSzQ0Pz kS3kEcUkJZMeHCZx J3TrrTDqIAlaF337FNme VsN5BGAsznWaX8VuQKGh eKzrQaK7i5A4Tc6XDJ89 UZ65XB41dETvo2I2 fMX5C9RhCHRylczctsze qZD6DMPsVSMcrY16Rn3b hWbbFn8jARJiTEX5OGDq nKKbQ3VskI7qHySt FFYkVSQnB8JztITtXBda T595RGycYrU1YSFmihGy X5MuWPPhqEshZlC0v2R4 Vj5MCx70AL84SE39 dZVoy6A9sKV2Q2ByDXIp bcpqosnldWO2LKPaIFIs yJ55Ne9gvStaIz2wEZJt MJJ8DTDmwXRwM0Ot lB2xFwWiQMOlXJZiE5Ew bIQzCXgkV677MMwbQiN0 QGDwfeLzU8NdOQYsuUij AiV4x2J1Ws2YMFer bzb5U6VySbmozIO+PC90 PZVyLF30lWSytZUut6ub fFj2PxQfABWlIKU4uVnu UYhgk7MhFIWcS05m bGFw (more content not included)... Normal [facility] Insurance Correspondenceon 0 07-12-2020 Insurance Correspondence [id number] 8#[email or web address] Normal [facility] Insurance Correspondence Off iceon 07-12-2020 Insurance Correspondence Office [id number] 1#[email or web address]:127 Normal [facility] Nursing Assessmenton 021 Nursing Assessment [id number] 8#1.00CD:127 Normal [facility] Group B Strep by PCRon 07-09 Group B Strep colonization by PCR Negative Normal Negative [facility] Comment on above: Order Comment: vagin al swab Performed By: #### [id number] #### [facility] [address] [place] [id number] ABO/Rhon 07-08-2020 ABO/Rh Positive Invalid Interpretation Code [facility] Comment on above: Performed By: #### 1 [id number], [id number], 6223469, [id number] #### [facility] [address] [place] [address] ABO/Rh History Checkon 07-08 ABO/Rh History Check Verified Hx Blood Type Normal [facility] Comment on above: Performed By: #### 1 [id number], 21284138, 5780609, [id number] ####[facility] [address] [place] [address] ABSCon 07-08-2020 ABSC Gel Interp Negative Normal [facility] Comment on above: Performed By: #### 1 2472851, 71364372, 0587884, [id number] ####[facility] [address] [place] [address] BUNon 07-08-2020 Urea nitrogen [Mass/Vol] 7 mg/dL Normal 07-08 [facility] Comment on above: Performed By: #### 2 886854, 8644474, [id number] #### [facility] [address] [place] [address] Blood Bank ID#on 07-08-2020 BBID# [id number] Invalid Interpretation Code [facility] Comment on above: Performed By: #### 1 9954809, 87032625, 9821774, [id number] ####[facility] [address] [place] [address] CBC w/Indiceson 07-08-2020 Erythrocyte distribution width (RBC) [Ratio] 13.6 % Normal 10.9-14.2 [facility] Comment on above: Performed By: #### 2 090975, 4984796, 064525138 #### [facility] [address] [place] [address] Hematocrit (Bld) [Volume fraction] 28.9 % Low 34.0-46.0 [facility] Comment on above: Performed By: #### 2 904213, 7946326, [id number] #### [facility] [address] [place] [address] Hemoglobin (Bld) [Mass/Vol] 9.7 g/dL Low 12.0-16.0 [facility] Comment on above: Performed By: #### 2 806297, 9015545, [id number] #### [facility] [address] [place] [address] MCH (RBC) [Entitic mass] 27.4 pg Normal 27.0-34.0 [facility] Comment on above: Performed By: #### 2 884774, 4322918, [id number] #### [facility] [address] [place] [address] MCHC (RBC) [Mass/Vol] 33.5 g/dL Normal 31.4-36.0 [facility] Comment on above: Performed By: #### 2 588110, 9108318, [id number] #### [facility] [address] [place] [address] MCV (RBC) [Entitic vol] 81.7 fL Normal 80.0-100.0 [facility] Comment on above: Performed By: #### 2 659046, 5405739, [id number] #### [facility] [address] [place] [address] Platelet mean volume (Bld) [Entitic vol] 7.9 fL Normal 6.4-10.8 [facility] Comment on above: Performed By: #### 2 261041, 0556901, [id number] #### [facility] [address] [place] [address] Platelets (Bld) [#/Vol] 320.0 E9/L Normal 150.0-500.0 [facility] Comment on above: Performed By: #### 2 161496, 4475802, [id number] #### [facility] [address] [place] [address] RBC (Bld) [#/Vol] 3.5 E12/L Low 4.3-5.9 [facility] Comment on above: Performed By: #### 2 450721, 2093836, 190304215 #### [facility] [address] [place] [address] WBC corrected for nucl RBC Auto (Bld) [#/Vol] 9.9 E9/L Normal 4.0-11.0 [facility] Comment on above: Performed By: #### 2 749781, 7576380, [id number] #### [facility] [address] [place] [address] Creatinineon 07-08-2020 Creatinine [Mass/Vol] 0.4 mg/dL Low 0.5-1.3 [facility] Comment on above: Performed By: #### 2 026277, 7452641, [id number] #### [facility] [address] [place] [address] Discharge Instructionson Discharge Instructions [id number] 8#1.00CD:127 Normal [facility] FSPon 07-08-2020 Fibrin+Fibrinogen fragments (S) [Mass/Vol] <10 Normal <10 [facility] Comment on above: Performed By: #### 2 568826, 0390591, [id number] #### [facility] [address] [place] [address] Stainon 07-08-2020 FMHV 0 mL Invalid Interpretation Code [facility] Comment on above: Performed By: #### 2 577670, 4508733, [id number] #### [facility] [address] [place] [address] Negative Control Negative Normal [facility] Comment on above: Performed By: #### 2 952735, 1106920, 045986216 #### [facility] [address] [place] [address] Fibrinogenon 07-08-2020 Fibrinogen Coag (PPP) [Mass/Vol] 451 mg/dL High 200-393 [facility] Comment on above: Performed By: #### 2 766165, 0470140, 968625867 #### [facility] [address] [place] [address] Hep Func Panelon 07-08-2020 Bilirubin.indirect [Mass or moles/Vol] UTC Abnormal 0.1-0.9 [facility] Comment on above: Result Comment: Resu lt verified by Discern Rule. Performed result UTC (Unable to Calculate) was sent as an Alpha code due the inability to calculate a valid numeric value. Performed By: #### 2 965385, 7662205, [id number] #### [facility] [address] [place] [address] Albumin [Mass/Vol] 2.6 g/dL Low 3.3-5.0 [facility] Comment on above: Performed By: #### 2 181103, 6400831, 010437249 #### [facility] [address] [place] [address] Albumin/Globulin (S) [Mass conc ratio] 0.8 Low 1.1-2.2 [facility] Comment on above: Performed By: #### 2 396369, 3619374, 562311496 #### [facility] [address] [place] [address] ALP [Catalytic activity/Vol] 108 Int._Unit/L High 21-98 [facility] Comment on above: Performed By: #### 2 029771, 1544685, [id number] #### [facility] [address] [place] [address] ALT No additional P-5'-P [Catalytic activity/Vol] 13 Int._Unit/L Normal 6-46 [facility] Comment on above: Performed By: #### 2 597335, 0301123, [id number] #### [facility] [address] [place] [address] AST [Catalytic activity/Vol] 22 Int._Unit/L Normal 5-43 [facility] Comment on above: Performed By: #### 2 690308, 7600649, 483354786 #### [facility] [address] [place] [address] Bilirubin [Mass/Vol] 0.4 mg/dL Normal 0.0-1.1 [facility] Comment on above: Performed By: #### 2 297183, 9955381, 457502702 #### [facility] [address] [place] [address] Bilirubin.direct [Mass/Vol] mg/dL Normal 0.1-0.4 [facility] Comment on above: Performed By: #### 2 083412, 4981290, 298179047 #### [facility] [address] [place] [address] Globulin (S) [Mass/Vol] 3.4 g/dL Normal 1.4-4.0 F [facility] Comment on above: Performed By: #### 2 464656, 1655890, 225446092 #### [facility] [address] [place] [address] Protein [Mass/Vol] 6.0 g/dL Normal 6.0-7.8 [facility] Comment on above: Performed By: #### 2 540572, 8566259, [id number] #### [facility] [address] [place] [address] Inpatient Clinical Summaryon 07-08-2020 Inpatient Clinical Summary [address] [address] Clinical Summary Person Information Name: MYA MYLES Ifeoma/[facility] Age: 30 Years : 1990 Sex: Female PCP: Chao Blackwell III, DO Marital Status: Single Race: White Ethnicity: Non- or Language: Sammarinese MRN: [id number] Visit Id: Visit Reason: Speciality: Acuity: Obs Enc Type: OB Triage Med Service: Obstetrics Arrival: 07/07/2020 19:39:51 Discharge: 07/08/2020 21:22:00 Dispo Type: Home ([facility]) Address: [address] [place] [address] [address] [place] [id number] Provider Notes: Diagnosis: Problems Active Obesity complicating [...] Follow up: With: Address: When: Funmilayo ESCOBEDO [facility] [place] [id number] [place] (1) In 3 days 07/11/2020 Comments: Call Dr. rKamer office Saturday morning to see if she wants to see you sooner. If not keep appointment. Call for any problems. Call for severe abdominal pain Call physician for heavy vaginal bleeding (more content not included)... Normal [facility] Inpatient Patient Summaryon 07-08-2020 Inpatient Patient Summary [address] [address] Patient Discharge Instructions PERSON INFORMATION Name: MYA MYLES Date of : 1990 Current Date: 07/08/2020 21:31:37 PHYSICIANS Admitting Physician: Sukhdeep Schaffer MD Primary Care Physician: Chao Blackwell III, DO PCP Comment: Discharge Diagnosis: Condition at Discharge: MYLES MYA Cintron has been given the following list of [...] Address: When: Funmilayo ESCOBEDO [address] [place] [address] Business (1) In 3 days [...] Type Location Start Finish State WH SOV [facility] 07/14/2020 4:30 PM 07/14/2020 4:45 PM Confirmed [facility] Ultrasound [facility] 07/21/2020 4:00 PM 07/21/2020 4:45 PM Confirmed [facility] SOV [facility] 07/21/2020 4:30 PM 07/21/2020 4:45 PM Confirmed WH SOV [facility] 07/27/2020 2:45 PM 07/27/2020 3:00 PM Confirmed WH SOV [facility] 08/02/2020 4:30 PM 08/02/2020 4:45 PM Confirmed WH BIENVENIDO [facility] 09/15/2020 9:00 AM 09/15/2020 9:30 AM Confirmed [...] Document Released: 05/03/2009 ExitCare? Patient Information ?2009 [employer]. Labor and Information normally lasts 39?41 weeks. [...] or tightening. (more content not included)... Normal [facility] Lyteson 07-08-2020 Anion gap [Moles/Vol] 9 mmol/L Normal 6-16 [facility] Comment on above: Performed By: #### 2 693747, 2128812, [id number] #### [facility] [address] [place] [address] Chloride [Moles/Vol] 108 mmol/L Normal 101-111 [facility] Comment on above: Performed By: #### 2 095344, 3075482, 116588527 #### [facility] [address] [place] [address] CO2 [Moles/Vol] 21 mmol/L Normal 21-31 [facility] Comment on above: Performed By: #### 2 146455, 4990747, 069647064 #### [facility] [address] [place] [address] Potassium [Moles/Vol] 3.4 mmol/L Low 3.5-5.3 [facility] Comment on above: Performed By: #### 2 578021, 6358153, 111904339 #### [facility] [address] [place] [address] Sodium [Moles/Vol] 135 mmol/L Normal 135-145 [facility] Comment on above: Performed By: #### 2 051542, 9341805, 710886060 #### [facility] [address] [place] [address] PT & PTTon 07-08-2020 aPTT Coag (PPP) [Time] 25.4 second(s) Normal 25.1-36.5 [facility] Comment on above: Result Comment: Hepa rin therapeutic range (represented by Anti-Factor Xa activity of 0.2 - 0.4 U/mL) corresponds to PTT of 56.6 - 109.0 sec. Performed By: #### 2 575959, 9373764, 236987816 #### [facility] [address] [place] [address] INR Coag (PPP) [Relative time] 1.0 {INR} Invalid Interpretation Code [facility] Comment on above: Result Comment: INR results are specifically intended to assess patients stabilized on long-term Anticoagulation therapy suggested INR?s ?Less Intensive Anticoagulation? 2.0 ? 3.0 Conventional Range 3.0 ? 4.5 Performed By: #### 2 952786, 2665359, 570823228 #### [facility] [address] [place] [address] PT Coag (PPP) [Time] 12.2 second(s) Normal 10.2-12.9 [facility] Comment on above: Performed By: #### 2 670940, 0141237, [id number] #### [facility] [address] [place] [address] Uric Acidon 07-08-2020 Urate [Mass/Vol] 2.7 mg/dL Normal 2.2-7.4 [facility] Comment on above: Performed By: #### 2 742547, 3083354, 909276348 #### [facility] [address] [place] [address] eGFRon 07-08-2020 GFR/1.73 sq M.predicted among blacks MDRD (S/P/Bld) [Vol rate/Area] mL/min/{1.73_m2} Normal >=59 [facility] Comment on above: Order Comment: Order Added by Discern Expert. Result Comment: eGFR is race adjusted. AA=. Performed By: #### 2 218657, 0565724, 033000166 #### [facility] [address] [place] [address] GFR/1.73 sq M.predicted among non-blacks MDRD (S/P/Bld) [Vol rate/Area] mL/min/{1.73_m2} Normal >=59 [facility] Comment on above: Order Comment: Order Added by Discern Expert. Result Comment: [employer] ramesh kidney disease could be indicated at eGFR's of less than 60 mL/min/1.73m2. Kidney failure is indicated at less than 15 mL/min/1.73m2. Performed By: #### 2 903966, 4500533, 281103288 #### [facility] [address] [place] [address] AmniSureon 07-07-2020 PAMG-1 Protein Negative Normal Negative [facility] Comment on above: Performed By: #### 2 696472, 7427118, 352953162 #### [facility] [address] [place] [address] PAMG-1 Protein Internal Control Positive Normal Positive [facility] Comment on above: Performed By: #### 2 263228, 9089333, 868663835 #### [facility] [address] [place] [address] Consent for Treatmenton 05- Consent for Treatment [id number] 05 [id number] 3#1.00CD:127 Normal [facility] Consent for Treatment [id number] 05 [id number] 9#1.00CD:127 Normal [facility] FFNon 07-07-2020 Fibronectin. Ql (Vag fld) Negative Normal [facility] Comment on above: Result Comment: In [...] the antibody-antigen reaction. Performed By: #### 2 555512, 9165893, 775749166 #### [facility] [address] [place] [address] UA With Cult Reflexon 2020 Bacteria LM Ql (Urine sed) 1+ /HPF Abnormal Trace [facility] Comment on above: Performed By: #### 2 941022, 0311106, 843281098 #### [facility] [address] [place] [address] Bilirubin Ql (U) Negative Normal Negative [facility] Comment on above: Performed By: #### 2 487655, 0677085, 853227453 #### [facility] [address] [place] [address] Clarity (U) CLEAR Normal Clear [facility] Comment on above: Performed By: #### 2 689440, 5581954, 441133429 #### [facility] [address] [place] [address] Color (U) YELLOW Normal Yellow [facility] Comment on above: Performed By: #### 2 471133, 7394017, 537017150 #### [facility] [address] [place] [address] Epithelial cells.squamous LM.HPF (Urine sed) [#/Area] /[HPF] Normal 0-2 [facility] Comment on above: Performed By: #### 2 705101, 5708221, 055247432 #### [facility] [address] [place] [address] Glucose Test strip (U) [Mass/Vol] Negative Normal Negative [facility] Comment on above: Performed By: #### 2 644669, 7024440, 716874035 #### [facility] [address] [place] [address] Hemoglobin Ql (U) 2+ Abnormal Negative [facility] Comment on above: Performed By: #### 2 951841, 9350405, 946994025 #### [facility] [address] [place] [address] Ketones (U) [Mass/Vol] TRACE Abnormal Negative [facility] Comment on above: Performed By: #### 2 466968, 9977302, 843261145 #### [facility] [address] [place] [address] [place]okah.plasma/[place]. RBC (Bld) [Mass ratio] >30 Abnormal 0-3 [facility] Comment on above: Performed By: #### 2 935146, 9212584, 431864201 #### [facility] [address] [place] [address] Mucus Ql (Urine sed) TRACE Normal [facility] Comment on above: Performed By: #### 2 861635, 1604580, 159311203 #### [facility] [address] [place] 2340857 Nitrite Ql (U) Negative Normal Negative [facility] Comment on above: Performed By: #### 2 128044, 4734583, 950697867 #### [facility] [address] [place] [address]857 pH (U) 5.5 [pH] Invalid Interpretation Code 5.0-9.0 [facility] Comment on above: Performed By: #### 2 598325, 9453628, 956969306 #### [facility] [address] [place] [address]40857 Protein (U) [Mass/Vol] Negative Normal Negative [facility] Comment on above: Performed By: #### 2 815620, 6016356, 370942939 #### [facility] [address] [place] [address] Specific gravity (U) [Rel density] 1.025 Invalid Interpretation Code 1.005-1.030 [facility] Comment on above: Performed By: #### 2 427254, 1297052, 384834153 #### [facility] [address] [place] [address]857 Type of Urine collection method Clean Catch Normal [facility] Comment on above: Performed By: #### 2 831731, 8200046, 315609456 #### [facility] [address] [place] [address] Urobilinogen Qn (U) 0.2 {Henny'U}/dL Normal 0.0-1.0 [facility] Comment on above: Performed By: #### 2 223741, 6497459, 019257971 #### [facility] [address] [place] [address] WBC Auto Ql (U) Negative Normal Negative [facility] Comment on above: Performed By: #### 2 234114, 6043842, 215527246 #### [facility] [address] [place] [address] WBC LM.HPF (Urine sed) [#/Area] 0-5 Normal 0-5 [facility] Comment on above: Performed By: #### 2 840543, 4289295, 075964704 #### [facility] [address] [place] [address] Ambulatory Clinical Summaryo n 07-06-2020 Ambulatory Clinical Summary {[id number]}CD:[id number] Normal [facility] Obstetrics Office/Clinic Not jasmine 07-06-2020 Obstetrics Office/Clinic Note Chief Complaint OB visit 34 weeks 6 days. Obstetric History History (1,0,0,2) # 1 Baby 1 Outcome Date: 2008 Outcome: Live Outcome or Result: Vaginal Gender: Female Gest Age: 41 weeks Wt: 3232 g [place] [facility] Labor: -- Child's Name: -- Baby's [...] Stable. Ordered: Office Visit Level 3 Est 01353 TH 2. Obesity complicating , third trimester (O99.213: Obesity complicating , third trimester) Doing well managing weight gain. Ordered: Office Visit Level 3 Est 00160 TH 3. Supervision of high risk in third trimester (O09.93: Supervision of high risk , unspecified, third trimester) Follow up in 2 weeks for appt and growth US. PTL precautions until 37 wks. Ordered: Office Visit Level 3 Est 55018 TH 4. 34 weeks gestation of (Z3A.34: 34 weeks gestation of ) Ordered: Office Visit Level 3 Est 59961 TH Follow-up With When Contact Information [facility] In [address] [place] [address]- Additional Instructions: Problem List/Past Medical History Ongoing [...] Protein Urine Dipstick: Negative (07/06/20 14:59:00) Normal [facility] Comment on above: Result Comment: Elec [...] Document Reviewed: 07/23/2008 ExitCare? Patient Information ?2013 [employer] [facility] US Follow Upon US Follow Up Exam Date/Time: 06/23/2020 15:12 EDT [...] Signed by: Yousif Toribio M.D. Transcribed by: [facility] Technologist: ADEN Technical Comments CLIFFORD 08/11/20 CLIFFORD Obtained CLIFFORD by US GA 33w 0d History 3 Para 2 Transabdominal Ultrasound Performed Placenta Location posterior Placenta Grade 1 2 Positioning Vertex Amniotic Fluid Volume Normal Normal [facility] Consenton 06-24-2020 Consent [id number] #1.00CD:127 Normal [facility] Ambulatory Clinical Summaryo n 06-23-2020 Ambulatory Clinical Summary {[id number] [id number]}CD:[id number] Normal [facility] Ambulatory Clinical Summary {[id number] [id number]}CD:530681 Normal [facility] Obstetrics Office/Clinic Not jasmine 06-23-2020 Obstetrics Office/Clinic Note Chief Complaint OB 33w, baby moving, swelling in feet. Having heartburn for about two weeks. Obstetric History History (1,0,0,2) # 1 Baby 1 Outcome Date: 2008 Outcome: Live Outcome or Result: Vaginal Gender: Female Gest Age: 41 weeks Wt: 3232 g [place] [facility] [place] Labor: -- Child's Name: -- Baby's [...] trimester) Ordered: Office Visit Level 4 Est 85695 NC 2. Obesity complicating , third trimester (O99.213: Obesity complicating , third trimester) Ordered: Office Visit Level 4 Est 71623 NC 3. Depression during (O99.340: Other mental disorders complicating , unspecified trimester) Ordered: Office Visit Level 4 Est 24768 NC 4. 33 weeks gestation of (Z3A.33: 33 weeks gestation of ) Ordered: Office Visit Level 4 Est 06126 NC Encounter for immunization (Z23: Encounter for immunization) Ordered: tetanus/diphtheria/p ertussis, acel (Tdap), 0.5 mL, IntraMuscular, Once, Stop date 06/23/20 16:00:00 EDT, Routine, Start date 06/23/20 16:00:00 EDT EACH ADD'L Aoc Operations Intelligence Officer Admin Component 01107 EACH ADD'L Aoc Operations Intelligence Officer Admin Component 56594 FIRST VACCINE Aoc Operations Intelligence Officer Admin Charge 20593 Orders: famotidine, 20 mg = 1 tab(s), Oral, BID, # 60 tab(s), Refills(s) 2, Pharmacy: [id number], 157, cm, 06/23/20 15:10:00 EDT, Height/Length Dosing, 86.7, kg, 06/23/20 15:10:00 EDT, Weight Dosing Follow-up With When Contact Information LAURA MACEDO, Funmilayo Ryan In [address] [place] [address]- Additional Instructions: Problem List/Past Medical [...] Protein Urine Dipstick: Negative (06/23/20 15:09:00) Normal [facility] Comment on above: Result Comment: Elec [...] keep your urine pale yellow. ? Take akai-njj-bzcejrp and prescription medicines only as told by [...] 02/04/2006 Document Revised: 05/25/2019 Document Reviewed: 05/09/2017 [employer] Patient Education ? 2019 [employer] First Stage of Labor Labor is [...] monitor strap (more content not included)... Normal [facility] Coding Summary.on 06-12-2020 Coding Summary. CD:[id number]:[id number] Gh0bWw+PGhlYWQ+PE1FV UJiC21azULwdM3HK8bZN U8KASZRBTUCXT6FZG5ot ER9PGukW9PwmjYu BezzpMPqJR12GAl0FZW0 mQlxUPpwtO4xuUDwW6v7 YrNoBB41cP24EEltENWm LtJ5FvTepzjsnXJo I7gcJlEokJVqOml+PHRh YmxlIHdpZHRoPScxMDAl QlNfuHjhRI4zJm9nEYPq LWNvbGxhcHNlOiBj v8yvWKEgPXtxVY1ojQbd L8FgsJS9YXIyf8m8Ml64 dHI+CMEgMTH4pWhiEMuf w420StOux3wvRKB4 pQCjQLmbLQP0E91uk3S0 KJEyHNTkYSC0rGE5tY0t bXdnbccjR9KnhCCsKhT9 DRI8fWDknQ6mxWcz qxgeuA1vYxj+M74BUW2W HHCTXT8THxy5I6GsPhgl dHI+QU61SUOrEQ62qBHr hAHsa8jjnXm3KxYs NSPyLTT1uRqpBSivc9Up JWUdD81woOZaw0I9JFNa aOnatRVwSmTbiKI1nM0l QAanxqhau3djvcsn Gcziz6qzyw03hG10Z72h KPkzETTpEBW6XHKaLUSo mKaado6feV0wAd2+IDxj s6cuo2npuGa5IkNi LWPdscRynOhaKYK1n4Ai Ub60D4BfjCcwk3CwIjs5 nq42mMArs9V0mKB4USod NJTtjJ4wSIryAuT2 RZAdEcMuvA56hNIdWQpy Av5qgRoutMckCS6vZFNb tugsMJYqcL8gVZIjsUAh hKouUP5lZGIgqtzg q068AoErPDR6IKIejYGv P7JquD6oSpDaRBTyEBXe F2HzzMOsCBcmI825LEwc ZaI9YUOroqOuO9Ql BFVgbLjaEuG6q7K5De4N u5FrwmvfYCH9CUomGMZ9 TjY3LfEuXtK6T3MzUvc6 QMRotZznJT0rH1Zs BZLqsnivoozglJI3EAUg NPVzoC05dVHnRFwoKr7d y4Y4h544SIPiPZGfcD10 Ga0rvOrvPJDzfEBW qK7lbkntr4gfqiuhOpWc LOAoGOq2KYy3TPDgmGaq CuGbHLD0SqN8WJM2aXHo xM8bsVmrnvltrE2z Oyc+P34ioM1rXFQ0ODN2 eyxwXJQjtdFmVN92AZ03 Y9JlZwjazUBqhNH+PGRp knGjfTyaKZ1tPdAy p7ypg7TmQSavT7BmSMYu FCpoYwa8CQByCAM3kRA1 rN8oRFDwWLcmu6C0ePP9 O7GgfoGyte4nb4dj TXDiNLduO62ewLZnu7W8 AXCmeVQ4FNZnfJxqZzMv oR42Jlo+RSDrgRijs5Te Uxhkv8zbd9xlvNy1 IjMwJSIgdmFsaWduPSJ0 p8FgJi29P92mLWwrFLIa SQCaNBWfXCFydOhqnm4q rV4cCg3+PGNvbCB3 nFA9bI9qXIJmMnO4WPug D298OmWcgZVuBeuvi6vq f8vsvPu2PxTgVWKqcyEh zJgbVWK5w2JoLt64 E35yISnbSTXsUTZbDDKg CIXuvGotsc2clW8fJo0+ QA1av9onbz57nW87nTW+ PHWoJKW6oAddZJky DOFowV7tEThcJtR0OZJy ReCboW55iKIiLWdpDv1i dFokyLtxRV6kONEmhnge n180KoBdq8gjWBXz tHQqMIpkUMP5R88mz4A2 IUJqZVQsUIH5qVG5gQ6x bGlnbjogbGVmdDsgdmVy wZwgVOawWNkyK853 IHRvcDsnPlBhdGllbnQg PaUcIJl7V9KkPkr3UUEg eAsbMI7aqVDgRFhfWe2o tPjtrDpiSJ0yMQGc tmhol500BwQbz4vsTSDm vRPkOKpeURG2L75id7F7 ZSGlBWEnKIB1zPX1fR8q bGlnbjogbGVmdDsg xbZspBgnBVvhWMcoO194 IHRvcDsnPkJpcnRoIERh dHW4UA82NG93bYDhk8R5 fQA3T7VzKFNuaysn dlbhrPI5XQTdKTBusT69 Yi4frAnjFw0dQMUzCRS8 BPIztWXbL7TliC2iIzEp EMSsQTQuA8JzmMFq OMjdK983OOfeClB0UXXq xfEcS1QdWNQkeEvmXoO9 d8H4Ts3EH5T4HU62QY96 mRUzd9B5bQY9X6Dq VJBfnjclibzeyJP3MKLq PBGpvD50Rr9ehIbxNp2o XVKmXHM1HWNcoNVzK2Ia jH5mYuCgWLLsZKDf U7KvcNFpTNcvB458TZjh SjK0KIMizfRkP9CzEZBg sAllNdV0l4G9Rr9XDAf5 GJ03KE79aCOxp5F3 wLN6U2UbEUQsdglkttux aKB2AKQgIPHurZ55Ln7m bCypJm7fVYAtOIP8UTHj dOLzB2NkzS6pRuFi RYSxPZFlC6JtnSZiKPol V637JWrvVnC0ERQyeeXp R0JtLMAllFtmHlS8u6K0 Av2THPFbTO65CVE7 hFY3XH36VR36S8WmUfai dGFibGU+PHRhYmxlIHdp ZHRoPScxMDAlJyBzdHls HJ5fGn4kFIWwPIAg lWxstVHuOnKab1xbQGOt LWgrUA3yrCyzT7EmyWF3 MUGgq8k3Yo64T23tN6Nf dXA+ZGKjsEM7ePS1 yX2pRrIiGsO5FIbzE336 VqBvnJRqGkhgg1gpw2bg wWx1NmM5ZIPpgvWsvTwo UHU0f5QmBt60W33m IHdpZHRoPSIxNSUiIHZh gGrgtk2ecE9dTx5+PGNv cBS1zAC2gV0lJgBtWgS3 EZhlL190AjZfwUAe Mhwrc8pzy6cnuIe9XtIi HIQvylFndAzxHXJ0x4Ur Oe91F4XosFozk3BlBlz1 zu14qIYzn4V9pDU2 P9IrYRXfcvkeeYQawNmv FS0rHKPzmfsiFHKuvQ4x CBMdW3s5ZwHlSuK6DWsb H4JqziF9QOYryVRg MVllSFX3B93ip7C2IMFr BFOlUQZ0hYZ9vO5mwGof bjogbGVmdDsgdmVydGlj SBuaXDkgW157LAEy wIdyLFNdcG2tYKNffEZa uKlmMI6mPQVnicxiSiGA UozFEx6hKIDRIrUZV6Yg TDwvdGQ+PHRkIHN0 hBrfGGfqVMGsiB8hYMPz C6n9QzTbDwL5SCniR2Zm FLWekkevEg80tU0qYjFh JzH7XYaxM5HoknU4 RSMuiUGaWCreDFX7M94d r1M6UJFlZDJrTVU2fLQ1 uJ5njJobayeeyVSljTxx dmVydGljYWwtYWxp V537NFItkSsaVpZ5ZcYo HyI2YFQ3V5TaYvf9DXHe sRsoYL1pqUTwGUneYo6y rEiwcMdxRD3wLTLk ixpuMBKpmR3wRTBjtJEs jHydHY0eIACgucixn368 OjFaJML8TLPniTAcS8Fv hK5lIiTfEAQkARYf G4EadSQeDZrtI793OGnu BrF6RBFpdaMdX1KkILKz eVkcBmI4d6R2Yh1hRXAF ZWFyczwvdGQ+PHRk QMD1hDgzFNtpWPXbtI5y UEZeC3x5YhBkNaS7TXzp G2MxHWBzhyomBy90mU4w ZjSqVhK9FAfkX8Vr dkR3QTNaiOTzHIubSJH7 C64io5E5YSKxZFPeNOM2 cWL7aB5syBfwwznxzJXi dDsgdmVydGljYWwt VAoeP572LNHsuKxnWcSq bWFsZTwvdGQ+PHRkIHN0 cQttRNobFZWjuQ3iTOTm X9w5BmSkZlK5KRap P3NsCXZrrwegKp29iU9w AvIkEyY4TPodC4GyneA1 SPCexSMxGVliNFH7J49w l0X4CGDvWKEdIEQ4 iMP6hB6vgLowizwdlTJd dDsgdmVydGljYWwtYWxp H305URFskRozOq91eNOv cOabatF7V1TgJnbn dHI+PM16CZGmVV01aDJg mJCxz0hddAe6AhQkPDLu IST5lMfwXPhzb2FcIKYo F10jiKBfl8F6AFDx eCuhzORoNnLmxSN7lX7h KTvdwtknh8brjryrTnlf r8sdfb79dF04K66aANye ZHRoPSIzMCUiIHZh dQdoor9rjW1pYo5+PGNv jKA3jAK5mT5sGnPtOdG4 POqaA336ZeEsxSDvPcza e9dnp5lpfGl0GmNf ZLAqbhTqvUkuWJP9g2Td Dx06X73hPBurJSAkNQJl IGJjSBBaiYbukr6smO0r Ii8+FN3ap8bboo45 rR59wIH+CQRkUSA2sQoc KCdxOUFwmZ5wEOacZkJ9 KBIaDbPyaQ20nUQvKRnv Ew3guCgvhLcqTV1w JWWvxdxpk332VlTta0ih GHHhgHCsZIqdBOW0V47o v5P0CKWfJQIpQGM7hRL9 mW7lxKfwlxdguUOz dDsgdmVydGljYWwtYWxp Q144NFXbmUqaUcGatBRh M9hlglQNMC8wOrrgjUK+ LOSdJRI8tKaxKJho TOEzgB6oRPCrU3v4BkYw OiA7QAbtX3YzseC1TRUn hEVjXXErpDPQzB7aupiz v2kcuvjoIzAlHNFx NUp5EFz2UAYksVbiQlSp PPV1XgD7GEO3aRNunM1p uTiunaaecO0aMok+RklO OjwvdGQ+PHRkIHN0 pAaxMFrvQOKnbS0yDEKi S9w5IhKtYmM6DAdkL6Hi tjM0OAQkkSEaIBNmuBPB cB7swzsrf6hskbsn OmStGWEwCMh5JRa7BNHc hNjxGxHzOZT0BpG4CZT9 pIVpaX1avOsfipbifT4s Oyc+TVJOOjwvdGQ+ BCDlMEF6kOzlDKlsELTi gP3oAHNqV7o2TlNgNkE1 PQrzH7RivhB3DWBmlXIj LMZilEPQzZ2jfoiz i1qcqjefSxAaGRQtCVv0 PEb0PGIcyJtwGtLnJWX7 QvG4UGX6bVMgbU2ytNmm weskqF1vFzm+UGF5 LCV0RY93NO26O0BiBmmk dGFibGU+PHRhYmxlIHdp ZHRoPScxMDAlJyBzdHls CE8dAs2qXCSnRRNy bGxh (more content not included)... Normal [facility] Coding Summary.on 06-09-2020 Coding Summary. CD:[id number]:[id number] Gh0bWw+PGhlYWQ+PE1FV NYuR06aiLYiuS8PK2uBI U9ITGZTUTEQMV0TOV7he IF2OLkkZ5RanwMz SxcniIJjJU25KTq2FTQ7 mJimTAtzvU0kxFEnG3k8 HdYqHT69hU72OTweCVUa EnS2YaOvjzlxjRTh R9vbVtAwpQOnYjn+PHRh YmxlIHdpZHRoPScxMDAl CiSgyKikRZ6bXp6tUUVe LWNvbGxhcHNlOiBj m4vmDZCyOUzuNG7kwVlc J7OpaFF8IWWym0l5Qc41 dHI+SFHtVDJ1kZchRLlw r487FoDue5nvGLU3 sWFxSYeiNIS1J00ut2A5 LJTbGMIhJJW5eDI6fG3u eArjjvzaE4GmmEWqCgZ2 YMM2vNAvtP3zuLnj aigqwJ4hLfk+O98BKN9Z GIQIXA6OEdf9R3FgPubw dHI+BJ73HAPaAE95kEBz fBXxw2mpvBh0ZsHv WIWlSVZ5eHpuOWhju1Ju GCAtQ90umQAen6X1GKOq dHvugYHnMmKswMK2kP8u IPbfomoxh6issbov Gzojn9eazo82oY78H01d YNjwKMKmJCE7YOEeRWMt rGdbcw5ncG2ySx1+IDxj v4zyk6iodKn3KrVr YEPuhmFtwQqlKEO7o7Lp Cw30U7VzhGurt8FcIns9 pf26jJPzv1W0lLD7HIat DTBtsI3uCKtoHoR0 JFEpLrKmeL50nBAyRXuy Wi2hoXkymZmqDM0kTAYe rfubWNHtfO2mTURykXAt lHxnRA9hXZGfuswm y786NxLaEBI6DVFaxTAj I1FbrW1wVfLqZEJnMDYi H4VkaIPpGXbeF710BQvk AqU9BZEotxVrJ7Nq WZVvnJplQjQ6r1S0Lz3B k1XwabrkYBI5NLtvLFL1 KuSlTyAxBcW7D8ZcQcg2 JTYuwIhiLW9dG1Mh UIKmyzgdlxkupVK9MSZx BLLcoO31mSGbWJnvOh6j u9P1v684RTQiRCXzkW73 Ha5chOzjSDMoyTUI zL2mqmzaj0kphljwHuQk YTZjAHp5CFl7LNPgbPmk NyByBRQ4ZsH2AKJ9qXWj nZ8eaUhuhooqhC2p Oyc+F24zlQ6fLYU9GYA6 ivbxJZRjsnViWB06LV14 W8QcPxvuiSMlrID+PGRp gpOtsCkmYT7xWmQk w5hlf1ZdBJvqW8NfNPYp TItgDwg9VTKnWQZ2hLW8 rS9lMFMwHLwdq0M1qNW5 F4XftnKbkg9qn4jj AMVzFPbsL56nbCIrf9W4 AXVjxYU0NACkfCjfLvJz cJ04Fsi+TULnaWted9Zx Loxlx5tib4zxaGo6 IjMwJSIgdmFsaWduPSJ0 g8EvBe90D95jEVxkZVHd MVEbCDEpVMZwbHmqyb9r oI9lNi5+PGNvbCB3 sTB8wT2aIIZtMmC6QQlg S229OqTgeBRlEamgr3rz d8qrgSl6NgFoICZjkrCr kIjoGRO4z2GgOb89 Z33rEFjbDLDzDDGhFKXs DZEjjVszna1cfO1fXb2+ KP7co1pgjr23wY99sMW+ TZRtNAA5nSgyQUwn LTOzyF0xDOjmTnB5NXLd AuWldN21dLCvVHupMi9t oQfxuWevLW0oLVUsiowt x848UrWnf5enZTVh mRXdEEodUGF8N00be6P4 OSVmFHHzWIZ5pJX8mZ3h bGlnbjogbGVmdDsgdmVy mCfrXHpjOHsoN850 IHRvcDsnPlBhdGllbnQg OrHaRCq2J2LuBvy4WDTv qTmoPY3yaBNtIRxzHz9b rGstuIfoAB9cKTEj bjnsa419EkYrb6rhYHDg pJMcZFvySTZ3W21qi1G7 IUUfHGCjOYH2hQA0dC5y bGlnbjogbGVmdDsg caEgiPilIUlyANnpU951 IHRvcDsnPkJpcnRoIERh aYR8LB58FL79sNXzg1I0 cZP2Y8UiMVDpfnpd cshscML1HALvGXEwoR67 Fp9kpNakSd9tJAPlFQK0 GMXupVQeL3GhvS6eQhUc VAViCGIwC6OedOJl CTlnZ850ORauZlD6CGYd qiLlO3QrRBKzcTtwOqC1 l5H7Xw2EV0Y8YQ27DL61 cSSyg1M7mYO5S9Uj QROvcuoycyvkqEJ0TMZb SVQbdL07Sv0uuYziRd5m BCYoVGY7AMNvqDYdI0Vv iD0nJnGiRBEgXDYv E7SiiCBsYJgaC958TRxu VdD5XKCzidMgJ3XrYTIn sVfcOzG8o2L0Jb0CZNd8 RT04RQ51rCOrg1S0 mLY6A3BlPQRjpzjvhxmg qOU7SYBvWMLdaJ36Av1v yLkiSl7dWWQtGEM9VSWp eOViW7HpqD4mAkXr ULReSRCpD3EebWLxOVct B303PCmnXwP3UJXaigIp Y0GsXNQnlBzoZgF1p0F3 Ng7IYNOzBF77QXX4 zKT9VP43UJ38X5XkKgyq dGFibGU+PHRhYmxlIHdp ZHRoPScxMDAlJyBzdHls PB3eTy6fVDHfHBXv lUswhUVzXjJuq8xlJPJd HTnfBO8xrZdsC5VclFA6 VRRzx2r6Rv82Z69fO7Tn dXA+KKOmjFY9aQI3 kE5jDlQfPzH2NTajV100 HjStdCDuOtgjs0fls0jx kHw0JcV3AYWtatPwtOgq FFM2v8CcFo42W29p IHdpZHRoPSIxNSUiIHZh wDcqsc9odX5tXr8+PGNv bXF3cJK2bJ7sXxYkCoR3 LPiaQ922RuHcnTLp Lqidt1kkz0mhfLl9WhCh YWZtzrPdbDfdKFF9d0Dw Cd87G9YqsCenr5MuGvk0 mu82wQQcq6A7mNI3 T9IxLPIptqvahWVoeMuv TD6nFANvfgxgHJYdqO5b NRFsT0a3YfFeYzK8EMfd C3CgizB9OOUqeUPf GVdvFXI1E00bg8O1APLm LPZbFOE3sIT7xF4wwLhd bjogbGVmdDsgdmVydGlj OFuiGBjzZ299GLHt fYohLTOiaQ7rMBIyhRUu xVxxBI5oIUVsbofvMcOZ LcsONy9oUFIISkZEJ9Kq TDwvdGQ+PHRkIHN0 uTquIRtyMOFzhH1iWZHs L6a5BeFvUxJ0BZyzY4Zs PCLxdwyeAc27eR5xEsLa PpK3VYgwF1XyktA1 LCYqtUVxXVgtSJD7L60c j7G8ADDiVHFcUDZ4bXI4 kR1kaNwzrtjstYJsfVky dmVydGljYWwtYWxp C657BIAeoUhlXjX2GeEr InG6SME1S4NtXbd7RYAa cDlhIY3slIGeZRynVt3m bExtpKjaBP3wHKWb sktaJKVykC1uQSQvrORk pElhPQ1jQLDryfadj676 GkAgGAY9BTLhtMDsR0Nj rP8uQbXnTPNyBDMo Z5CpdKWcSQtgD672CPre HgW3HFZcczQcN6YjRXIo yFpmZuN1e7I5Ph8tVNIY ZWFyczwvdGQ+PHRk XUC6jGpaFHhrKLQpwM9s VKXbH6j9LzCwEoI1ISsj Y8MpVMJtrbpkMy39qG3v LwVfRsH1CJrlP8Az krZ2OBGdhCZtSZreCTU5 E64pz6E7FNKiTAQxLXW9 iCW6yE1moHtoendyzLIr dDsgdmVydGljYWwt KRwhR317BIOaqNcgJoXh bWFsZTwvdGQ+PHRkIHN0 oNzhRAdtVXRrgS4uFDJv T8v1WmThTfU1BRki H8EiBMMfsrywEv26vW1y XiVaDgJ1OZpzD1QtngW1 PGGkgJMyYFgcIEA1B81f a2R2HVBaBBJvKQS8 iCX3eB5qoKxfdsjqoOLe dDsgdmVydGljYWwtYWxp B234YYVoiZjfFb75rOWt pMmvdwB8P4JeFgdg dHI+WA62KIEwAG70nWCy yQVka0zwfOe7JrGaTZTk KOS9nZlbBIljq4XnNTDe M75qtHDdf6D4AGUh iFlnaBWgShYlcKJ2bO1n NUiaakasr6zpouxjYqwx d3mqnm40vZ22Z99iGOlq ZHRoPSIzMCUiIHZh zHzutl7ljZ3zQq6+PGNv vXQ7uHF6cL9fUwGiKzF7 UWaaP271JxLrbMIoYydk t5phu7nelSr7YkQf KIWadjLunVubVBY7o9Ta Ik72W84kZAldHDCeBCFv HHItASRozYeodw3ggF2g Ii8+RB9gz4dlqo63 oP14zPO+QMOzPHV7zDog PIejXPKlgF8xEKrpKxK6 WPErMoTkrZ21pERjGFrz Wu5hiOanoNajEF3g UWByasbrb482SvBpv5kv XSDokKVdJMeiOKP6T45p l2Y1CHNuXECvTKG7mAG8 kC2rhQdiyaoouONb dDsgdmVydGljYWwtYWxp S922UYGgyGmtPmIckFGm Y3igugOGVQ2lPpjpqZX+ KAJxASA3iTqqOQqg KCSqxP0cHNCxW9j3MrUq GmN2YTtgB0VpfsV8HRFv vFWqCTHedILPdY1shoan h6kzszqpNgEyECZh ZAc9ZZh6LBMmaKbyAlGn TKL9GmJ4QYQ2nZDpqT7y uQcwzpnvsG1eXbr+RklO OjwvdGQ+PHRkIHN0 sAkhMLqrLFIilQ7oJHBg E7t8MpJcSaV7HUeqG6Ri obU7ZLMypMVrABKqyUNQ eO9jvdklj9lfgtgp JeFtCWOsYTq2FOg8GWMc cGrgWlGrPOY3WkW4ZMF3 vPCzkC8jfRiwaotchL4u Oyc+TVJOOjwvdGQ+ AOOeYDM4kVghTGsvNZJb cP9dIBOfJ3k3DhXnNrZ2 TUupB2EmsoJ7QEWtpRGn QUMlaUUYhD3kvmjz l8zbmiefObBrKLGxCAm4 TEo4OUCvlUxwFsZjYRW4 LiL2ZHT2lUIcvU1ogIed vtbtuM4oHxn+UGF5 JDF6AW08VM80J5FwIhze dGFibGU+PHRhYmxlIHdp ZHRoPScxMDAlJyBzdHls AW0pDe9qRKDkIABi bGxh (more content not included)... Normal [facility] Capillary Glucose POCon 05-19 Glucose [Mass/Vol] 82 mg/dL Normal 55-99 [facility] Comment on above: Performed By: #### 2 [id number] #### [facility] [address] [place] [address] Consent for Treatmenton 05-19 Consent for Treatment [id number] #1.00CD:127 Normal [facility] Glu 1 Hron 06-03-2020 Glucose [Mass/Vol] 139 mg/dL Normal 55-180 [facility] Comment on above: Result Comment: POSI TIVE SCREEN = 1 HR > 140 mg/dL Performed By: #### 2 [id number] #### [facility] [address] [place] [address] Glu 2 Hron 06-03-2020 Glucose [Mass/Vol] 123 mg/dL Normal 55-155 [facility] Comment on above: Result Comment: DIAB ETES FASTING >126 mg/dL or 2 HOUR >200 mg/dL Performed By: #### 2 [id number], [id number], [id number] #### [facility] [address] [place] [address] Glu 3 Hron 06-03-2020 Glucose [Mass/Vol] 101 mg/dL Normal 55-140 [facility] Comment on above: Result Comment: GEST ATIONAL DIABETES 2 of the following: FASTING >95 mg/dL 1 HOUR >180 mg/dL 2 HOUR >155 mg/dL 3 HOUR >140 mg/dL Performed By: #### 2 [id number] ####[facility] [address] [place] [address] Glu Fastingon 06-03-2020 Glucose [Mass/Vol] 83 mg/dL Normal 55-99 [facility] Comment on above: Performed By: #### 2 653754, [id number], [id number] #### [facility] [address] [place] [address] Rubella Abon 06-03-2020 Rubella Ab Positive Normal Positive [facility] Comment on above: Performed By: #### 2 [id number], [id number], [id number] #### [facility] [address] [place] [address] ABO/Rhon 06-02-2020 ABO/Rh Positive Invalid Interpretation Code [facility] Comment on above: Performed By: #### 1 [id number], [id number] ####[facility] [address] [place] [address] ABSCon 06-02-2020 ABSC Gel Interp Negative Normal [facility] Comment on above: Performed By: #### 1 [id number], [id number] ####[facility] [address] [place] [address] CBC w/Indiceson 06-02-2020 Erythrocyte distribution width (RBC) [Ratio] 12.9 % Normal 10.9-14.2 [facility] Comment on above: Performed By: #### 2 [id number], [id number], [id number] #### [facility] [address] [place] [address] Hematocrit (Bld) [Volume fraction] 33.5 % Low 34.0-46.0 [facility] Comment on above: Performed By: #### 2 465082, [id number], [id number] #### [facility] [address] [place] [address] Hemoglobin (Bld) [Mass/Vol] 11.2 g/dL Low 12.0-16.0 [facility] Comment on above: Performed By: #### 2 754946, 3802214, [id number] #### [facility] [address] [place] [address] MCH (RBC) [Entitic mass] 29.0 pg Normal 27.0-34.0 [facility] Comment on above: Performed By: #### 2 720100, 4893401, [id number] #### [facility] [address] [place] [address] MCHC (RBC) [Mass/Vol] 33.5 g/dL Normal 31.4-36.0 [facility] Comment on above: Performed By: #### 2 913630, [id number], [id number] #### [facility] [address] [place] [address] MCV (RBC) [Entitic vol] 86.6 fL Normal 80.0-100.0 F [facility] Comment on above: Performed By: #### 2 786571, [id number], [id number] #### [facility] [address] [place] [address] Platelet mean volume (Bld) [Entitic vol] 7.6 fL Normal 6.4-10.8 [facility] Comment on above: Performed By: #### 2 248230, 4031525, [id number] #### [facility] [address] [place] [address] Platelets (Bld) [#/Vol] 284.0 E9/L Normal 150.0-500.0 [facility] Comment on above: Performed By: #### 2 461277, 7896607, [id number] #### [facility] [address] [place] [address] RBC (Bld) [#/Vol] 3.9 E12/L Low 4.3-5.9 [facility] Comment on above: Performed By: #### 2 252230, 2365644, [id number] #### [facility] [address] [place] [address] WBC corrected for nucl RBC Auto (Bld) [#/Vol] 9.4 E9/L Normal 4.0-11.0 [facility] Comment on above: Performed By: #### 2 601605, 0980716, [id number] #### [facility] [address] [place] [address] Consent for Treatmenton 05-19 Consent for Treatment [id number] 10 [id number] #1.00CD:127 Normal [facility] Gest Scr Glu 1 Hron 06-03-19 21 Glucose [Mass/Vol] 150 mg/dL High 55-140 [facility] Comment on above: Result Comment: Posi tive Screen =1 HR > 140mg/dL Performed By: #### 2 215305, [id number], [id number] #### [facility] [address] [place] [address] Ambulatory Clinical Summaryo n 2020 Ambulatory Clinical Summary {[id number] [id number]}CD:[id number] Normal [facility] Obstetrics Office/Clinic Not jasmine 2020 Obstetrics Office/Clinic Note Chief Complaint OB 29w 5d, baby moving, patient doing 28 week labs done this Obstetric History History (1,0,0,2) # 1 Baby 1 Outcome Date: 2008 Outcome: Live Outcome or Result: Vaginal Gender: Female Gest Age: 41 weeks Wt: 3232 g [facility] [facility] [place] Labor: -- Child's Name: -- Baby's [...] trimester) Ordered: Office Visit Level 4 Est 18409 [facility] Follow Up US Follow Up 2. Obesity complicating , third trimester (O99.213: Obesity complicating , third trimester) Ordered: Office Visit Level 4 Est 41278 [facility] Follow Up US Follow Up 3. Depression during (O99.340: Other mental disorders complicating , unspecified trimester) Ordered: Office Visit Level 4 Est 69666 [facility] Follow Up US Follow Up 4. 29 weeks gestation of (Z3A.29: 29 weeks gestation of ) Ordered: Office Visit Level 4 Est 64424 [facility] Follow Up Follow Up Follow-up With When Contact Information Funmilayo ESCOBEDO MD In [address] [place] [address]- Additional Instructions: Problem List/Past Medical History Ongoing [...] Protein Urine Dipstick: Negative (05/31/20 14:25:00) Normal [facility] Comment on above: Result Comment: Elec tronically Signed By: LAURA MACEDO, Funmilayo Garner.br\Date and Time Signed: 05/31/20 15:32 EDT Patient [...] including vitamins, herbs, eye drops, creams, and qxzs-mqr-jjcfhwy medicines. ? Any blood disorders you have. [...] mean. This inform (more content not included)... [facility] RAD - Ultrasound Reporton RAD - Ultrasound Report [id number]# 1.00CD:127 [facility] Coding Summary.on 05-17-2020 Coding Summary. CODING DATE: 05/16/2020 FINAL [facility] DSC STATUS: Home (Routine DC) PAYOR: Diamond ADMIT [...] CphT Date Saved: 05/16/2020 11:[address] [facility] C Urineon 05-13-2020 Bacteria identified Cx Nom (U) Microbiology PROCEDURE: Urine Culture [R1] SOURCE: U Random BODY SITE: COLLECTED DATE/TIME: 05/11/2020 10:37 EDT RECEIVED DATE/TIME: 05/11/2020 19:08 EDT START DATE/TIME: 05/11/2020 19:08 EDT FREE TEXT SOURCE: Caroline HILARIO Stephanie FINAL REPORTS Final Report [] Verified Date/Time: 05/13/2020 08:25 EDT 4,000 cfu/ml Mixed skin contaminants Performing Locations R1: This test was performed at: [facility], [address] [place] [address], [id number]- , [place], Normal [facility] Comment on above: Performed By: #### 2 [id number] ####[facility] [address] [place] [address] Ambulatory Clinical Summaryo n 05-11-2020 Ambulatory Clinical Summary {[id number] Normal [facility] Obstetrics Office/Clinic Not jasmine 05-11-2020 Obstetrics [...] Age: 41 weeks Wt: 3232 g Hospital: [facility] Labor: -- Child's Name: -- Baby's Father: -- # 2 Baby 1 Outcome Date: 05/26/2013 Outcome: Live Outcome or Result: Vaginal Gender: Male Gest Age: 39 weeks 3 days Wt: 3390 g Hospital: -- [facility] Labor: 5 hr 55 min Child's Name: -- Baby's Father: -- Complications: None Complications: None EGA and CLIFFORD Gestational Age (EGA) and CLIFOFRD * Note: EGA calculated as of 05/11/2020 CLIFFORD: 08/11/2020 EGA*: 26 weeks 6 days Type: Authoritative Method Date: 02/16/2020 Method: Ultrasound (02/16/2020) Confirmation: Confirmed Description: -- Comments: -- Entered by: Caroline HILARIO on 04/21/2020 Other CLIFFODR Calculations for this : No additional CLIFFORD [...] far. Ordered: Office Visit Level 3 Est 31961 NC 2. Depression during (O99.340: Other mental disorders complicating , unspecified trimester) Doing meditation. Ordered: Office Visit Level 3 Est 69596 NC 3. Supervision of high risk in [...] 1 Hour Office Visit Level 3 Est 23462 NC Urine Culture 4. 26 weeks gestation of (Z3A.26: 26 weeks gestation of ) Ordered: Office Visit Level 3 Est 73156 NC Follow-up With When Contact Information [facility] In [address] [place] [address]- Additional Instructions: Problem List/Past Medical History Ongoing [...] Smokeless Toba (more content not included)... Normal [facility] Comment on above: Result Comment: Elec [...] Petroleum jelly. ? 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 ? Hand disability rater. Health and safety ? Rectal thermometer. ? [...] ? Consumer Product Safety Commission: www.cpsc.gov ? [place] [employer]: www.healthychildren. org ? Safe [...] Reviewed: 12/25/2017 Elsevier Patient Education ? 2019 [employer] Normal [facility] Coding Summary.on 04-29-2020 Coding Summary. CODING DATE: 04/28/2020 FINAL [facility] STATUS: Home (Routine DC) PAYOR: Diamond ADMIT [...] Pitt CphT Date Saved: 04/28/2020 10:33 pm Normal [facility] Coding Summary.on 04-27-2020 Coding Summary. CODING DATE: 04/27/2020 FINAL [facility] DSC STATUS: Home (Routine DC) PAYOR: [employer] ADMIT DX: REASON FOR VISIT DX: Z34.82 [...] CphT Date Saved: 04/27/2020 10:[address] [facility] Nursing Assessmenton 021 Nursing Assessment [id number] #1.00CD:127 [facility] C Urineon 04-23-2020 Bacteria identified Cx [...] Locations R1: [facility] [address] [place] [address], [facility] , , [facility] Comment on above: Performed By: #### 2 [id number], [id number], [id number] #### [facility] [address] [place] [id number] Consent for Treatmenton Consent for Treatment [id number] #1.00CD:127 [facility] Consent for Treatment [id number] #1.00CD:127 [facility] Discharge Instructionson Discharge Instructions [id number] #1.00CD:127 [facility] Inpatient Clinical Summaryon 04-21-2020 Inpatient Clinical Summary [address] [address] Clinical Summary Person Information Name: MYA MYLES [facility] Age: 29 Years : 1990 Sex: Female PCP: Chao Blackwell III, DO Marital Status: Single Race: White Ethnicity: Non- or Language: Sammarinese Visit Id: Visit Reason: Speciality: Acuity: Enc Type: OB Triage Med Service: Obstetrics Arrival: 04/21/2020 15:56:05 Discharge: 04/21/2020 17:47:48 Dispo Type: Home ([facility]) Address: [address] [place] [address] [address] [place] [id number] Provider Notes: Diagnosis: Problems Active Depression during [...] Follow up: With: Address: When: Funmilayo ESCOBEDO [facility] [place] [id number] Business (1) 05/12/2020 9:00 AM Comments: Call for any problems. Type Location [facility] 05/12/2020 9:00 AM 05/12/2020 9:15 AM Confirmed Patient Education Information: Normal [facility] Inpatient Patient Summaryon 04-21-2020 Inpatient Patient Summary [place] [id number] Patient Discharge Instructions PERSON INFORMATION Name: MYA [...] When: Funmilayo ESCOBEDO [address] [place] [facility] [place] (1) 05/12/2020 9:00 AM Comments: Call for any problems. In the event that this physician does not participate in your insurance network, please consult with your insurance company to find a nearby participating provider. Type Location Start Finish [facility] [place] 05/12/2020 9:00 AM 05/12/2020 9:15 AM [...] to serve you. Thank you for choosing [facility] Normal [facility] Insurance Correspondence Off iceon 04-21-2020 Insurance Correspondence Office [id number] #1.00CD:127 Normal [facility] RAD - Ultrasound Reporton RAD - Ultrasound Report [id number] #1.00CD:127 Normal [facility] UA With Cult Reflexon 2020 Bacteria LM Ql (Urine sed) 1+ /HPF Abnormal Trace [facility] Comment on above: Performed By: #### 2 [id number], [id number], [id number] #### [facility] [address] [place] [address] Bilirubin Ql (U) Negative Normal Negative [facility] Comment on above: Performed By: #### 2 [id number], [id number], [id number] #### [facility] [address] [place] [address] Clarity (U) CLEAR Normal Clear [facility] Comment on above: Performed By: #### 2 [id number], [id number], [id number] #### [facility] [address] [place] [address] Color (U) YELLOW Normal Yellow [facility] Comment on above: Performed By: #### 2 [id number], [id number], [id number] #### [facility] [address] [place] [address] Epithelial cells.squamous LM.HPF (Urine sed) [#/Area] 3-4 Normal 0-2 [facility] Comment on above: Performed By: #### 2 [id number], [id number], [id number] #### [facility] [address] [place] [address] Glucose Test strip (U) [Mass/Vol] Negative Normal Negative [facility] Comment on above: Performed By: #### 2 [id number], [id number], [id number] #### [facility] [address] [place] [address] Hemoglobin Ql (U) Negative Normal Negative [facility] Comment on above: Performed By: #### 2 139153, [id number], [id number] #### [facility] [address] [place] [address] Ketones (U) [Mass/Vol] 1+ Abnormal Negative [facility] Comment on above: Performed By: #### 2 035606, [id number], [id number] #### [facility] [address] [place] [address] [place].plasma/[place]. RBC (Bld) [Mass ratio] 0-3 Normal 0-3 [facility] Comment on above: Performed By: #### 2 433037, [id number], [id number] #### [facility] [address] [place] [address] Nitrite Ql (U) Negative Normal Negative [facility] Comment on above: Performed By: #### 2 065760, [id number], [id number] #### [facility] [address] [place] [address] pH (U) 7.0 [pH] Invalid Interpretation Code 5.0-9.0 [facility] Comment on above: Performed By: #### 2 250935, 7550005, [id number] #### [facility] [facility] [address] [place] [address] Protein (U) [Mass/Vol] Negative Normal Negative [facility] Comment on above: Performed By: #### 2 [id number], [id number], [id number] #### [facility] [address] [place] [address] Specific gravity (U) [Rel density] 1.010 Invalid Interpretation Code 1.005-1.030 [facility] Comment on above: Performed By: #### 2 983780, 0469354, [id number] #### [facility] [address] [place] [address] UA Spec Desc Clean Catch Normal [facility] Comment on above: Performed By: #### 2 333069, 5253697, [id number] #### [facility] [address] [place], [place] [address] Urobilinogen Qn (U) 0.2 {Henny'U}/dL Normal 0.0-1.0 [facility] Comment on above: Performed By: #### 2 864450, 1404129, [id number] #### [facility] [address] [place] [address] WBC Auto Ql (U) 1+ Abnormal Negative [facility] Comment on above: Performed By: #### 2 240259, 5492517, [id number] #### [facility] [address] [place] [address] WBC LM.HPF (Urine sed) [#/Area] 0-5 Normal 0-5 [facility] Comment on above: Performed By: #### 2 342346, 2835496, [id number] #### [facility] [address] [place] [address] C Urineon 04-18-2020 Bacteria identified Cx Nom [...] Locations R1: This test was performed at: [facility], [address] [place] [address], [address]- , [place], Normal [facility] Comment on above: Performed By: #### 2 767452 ####[facility] [address] [place] [address] Obstetrics Office/Clinic Not jasmine 04-18-2020 Obstetrics Office/Clinic Note Chief Complaint OB 21w 5d, baby moving Obstetric History History (1,0,0,2) # 1 Baby 1 Outcome Date: 2008 Outcome: Live Outcome or Result: Vaginal Gender: Female Gest Age: 41 weeks Wt: 3232 g [place] [facility] [place] Labor: -- Child's Name: -- Baby's [...] trimester) Ordered: Office Visit Level 4 Est 43922 NC 2. Obesity complicating , second trimester (O99.212: Obesity complicating , second trimester) Ordered: Office Visit Level 4 Est 68968 NC 3. 21 weeks gestation of (Z3A.21: 21 weeks gestation of ) Ordered: Office Visit Level 4 Est 31832 NC 4. Depression during (O99.340: Other mental disorders complicating , unspecified trimester) Ordered: Office Visit Level 4 Est 15452 NC Follow-up With When Contact Information LAURA MACEDO, Funmilayo Ryan In [address] [place] [address]- Additional Instructions: Problem List/Past Medical [...] pts pharmacy. Spoke with pt. 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 Will repeat urine cx at next visit. Kendal Escobedo MD [facility] Comment on above: Result Comment: Elec [...] Locations R1: This test was performed at: [email or web address] [facility], [address] [place] [address], [address] , , [facility] Comment on above: Performed By: #### 2 850898 ####[facility] [address] [place] [address] HIV Screen 4th Generation wR fxon 04-16-2020 HIV 1+2 Ab+HIV1 p24 Ag IA Ql Non-Reactive Invalid Interpretation Code Non Reactive [facility] Comment on above: Result Comment: [facility] at: [facility] [address] [place], [place] [id number] PhD Lanette Dunn Performed By: #### 2 436669, [id number], [id number] #### [facility] [address] [place] [address] Hep Bs Agon 04-16-2020 HBV surface Ag IA Ql Negative Invalid Interpretation Code Negative [facility] Comment on above: Result Comment: [facility]: [facility] [address] [place], [place] [id number] PhD Lanette Dunn Performed By: #### 2 574608, 8017750, [id number] #### [facility] [address] [place] [address] Coding Summary.on 04-15-2020 Coding Summary. CODING DATE: 04/15/2020 FINAL [facility] STATUS: Home (Routine DC) PAYOR: [employer] ADMIT DX: REASON FOR VISIT DX: O09.91 [...] CphT Date Saved: 04/15/2020 09:18 am Normal [facility] RPRon 04-15-2020 Reagin Ab RPR Ql (S) Non-Reactive Normal Non-Reactive [facility] Comment on above: Performed By: #### 9 [id number], [id number], [id number] ####[facility] [address] [place] [address] ABO/Rhon 04-14-2020 ABO/Rh Positive Invalid Interpretation Code [facility] Comment on above: Performed By: #### 2 400756, [id number] #### [facility] [address] [place] [address] ABSCon 04-14-2020 ABSC Gel Interp Negative Normal [facility] Comment on above: Performed By: #### 2 005118, [id number] #### [facility] [address] [place] [address] Ambulatory Clinical Summaryo n 04-14-2020 Ambulatory Clinical Summary {[id number]}CD:[id number] Normal [facility] Auto Diffon 04-14-2020 Basophils/100 WBC (Bld) 0.3 % Normal 0.0-2.0 F [facility] Comment on above: Order Comment: Order Added by Discern Expert. Performed By: #### 2 770344, 0079403, [id number] #### [facility] [address] [place] [address] Basophils/Leukocytes Auto (Bld) [Pure # fraction] 0.0 E9/L Normal 0.0-0.2 [facility] Comment on above: Order Comment: Order Added by Discern Expert. Performed By: #### 2 784577, 6853652, [id number] #### [facility] [address] [place] [address] Eosinophils/100 WBC (Bld) 0.3 % Normal 0.0-8.0 [facility] Comment on above: Order Comment: Order Added by Discern Expert. Performed By: #### 2 501109, 0791041, [id number] #### [facility] [address] [place] [address] Eosinophils/Leukocytes Auto (Bld) [Pure # fraction] 0.0 E9/L Normal 0.0-0.5 [facility] Comment on above: Order Comment: Order Added by Discern Expert. Performed By: #### 2 457090, 7000366, [id number] #### [facility] [address] [place] [address] Lymphocytes/100 WBC (Bld) 19.1 % Normal 14.0-50.0 [facility] Comment on above: Order Comment: Order Added by Discern Expert. Performed By: #### 2 097891, 3049648, [id number] #### [facility] [address] [place] [address] Lymphocytes/Leukocytes Auto (Bld) [Pure # fraction] 1.4 E9/L Normal 1.0-4.0 [facility] Comment on above: Order Comment: Order Added by Discern Expert. Performed By: #### 2 379953, 9921412, [id number] #### [facility] [address] [place] [address] Monocytes/100 WBC (Bld) 6.4 % Normal 4.0-14.0 [facility] Comment on above: Order Comment: Order Added by Idalia Expert. Performed By: #### 2 202386, 5671648, [id number] #### [facility] [address] [place] [address] Monocytes/Leukocytes Auto (Bld) [Pure # fraction] 0.5 E9/L Normal 0.2-1.0 [facility] Comment on above: Order Comment: Order Added by Idalia Expert. Performed By: #### 2 899539, 3849289, [id number] #### [facility] [address] [place] [address] Neutrophils/100 WBC (Bld) 73.9 % Normal 36.0-75.0 [facility] Comment on above: Order Comment: Order Added by Idalia Expert. Performed By: #### 2 684399, 5826711, [id number] #### [facility] [address] [place] [address] Neutrophils/Leukocytes Auto (Bld) [Pure # fraction] 5.3 E9/L Normal 2.0-7.5 [facility] Comment on above: Order Comment: Order Added by Idalia Expert. Performed By: #### 2 177111, 7768896, [id number] #### [facility] [address] [place] [address] BhCG Quanton 04-14-2020 [place] [address] m[IU]/mL High 1-3 F [facility] Comment on above: Result Comment: GEST ATIONAL AGE HCG RANGE (mIU/mL) NON- <1-3 0.2-1 WEEKS 5-50 1-2 WEEKS 50-500 2-3 WEEKS 100-5,000 3-4 WEEKS 500-10,000 4-5 WEEKS 1,000-50,000 5-6 WEEKS 10,000-100,000 6-8 WEEKS 15,000-200,000 8-12 WEEKS 10,000-100,000 Performed By: #### 2 319282 #### [facility] [address] [place] [address] CBC w/ Auto Diffon Erythrocyte distribution width (RBC) [Ratio] 13.0 % Normal 10.9-14.2 [facility] Comment on above: Performed By: #### 2 020565, 2919577, [id number] #### [facility] [address] [place] [address] Hematocrit (Bld) [Volume fraction] 34.6 % Normal 34.0-46.0 [facility] Comment on above: Performed By: #### 2 010654, 1384252, [id number] #### [facility] [address] [place] [address] Hemoglobin (Bld) [Mass/Vol] 11.6 g/dL Low 12.0-16.0 [facility] Comment on above: Performed By: #### 2 115220, 1874410, [id number] #### [facility] [address] [place] [address] MCH (RBC) [Entitic mass] 29.8 pg Normal 27.0-34.0 [facility] Comment on above: Performed By: #### 2 488734, 8009057, [id number] #### [facility] [address] [place] [address] MCHC (RBC) [Mass/Vol] 33.4 g/dL Normal 31.4-36.0 [facility] Comment on above: Performed By: #### 2 147665, 9064227, [id number] #### [facility] [address] [place] [address] MCV (RBC) [Entitic vol] 89.2 fL Normal 80.0-100.0 F [facility] Comment on above: Performed By: #### 2 794378, 9306827, [id number] #### [facility] [address] [place] [address] Platelet mean volume (Bld) [Entitic vol] 7.8 fL Normal 6.4-10.8 [facility] Comment on above: Performed By: #### 2 940696, 8673461, [id number] #### [facility] [address] [place] [address] Platelets (Bld) [#/Vol] 326.0 E9/L Normal 150.0-500.0 [facility] Comment on above: Performed By: #### 2 749766, 3852072, [id number] #### [facility] [address] [place] [address] RBC (Bld) [#/Vol] 3.9 E12/L Low 4.3-5.9 [facility] Comment on above: Performed By: #### 2 932332, 6733496, [id number] #### [facility] [address] [place] [address] WBC corrected for nucl RBC Auto (Bld) [#/Vol] 7.2 E9/L Normal 4.0-11.0 [facility] Comment on above: Performed By: #### 2 806868, 4120762, [id number] #### [facility] [address] [place] [address] Consent for Treatmenton 03-22 Consent for Treatment [id number] 10 [id number] #1.00CD:127 Normal [facility] [id number] 04-14-2020 HbA1c (Bld) [Mass fraction] 4.8 % Normal <=5.9 [facility] Comment on above: Performed By: #### 2 859673, 0210611, [id number] #### [facility] [address] [place] [address] Patient Educationon 04-14-19 21 Patient Education How [...] Document Reviewed: 07/23/2008 ExitCare? Patient Information ?2013 [employer]. Obstetrics and Gynecology Eating Plan for Women [...] your (t (more content not included)... Normal [facility] U Drug Screenon 04-14-2020 Amphetamines Screen method >1000 ng/mL Ql (U) Negative Normal Negative [facility] Comment on above: Result Comment: Nega tive Cutoff: <1000 ng/mL Performed By: #### 2 786926 #### [facility] [address] [place] [address] Barbiturates Screen Ql (U) Negative Normal Negative [facility] Comment on above: Result Comment: Nega tive Cutoff: <200 ng/mL Performed By: #### 2 099995 #### [facility] [address] [place] [address] Benzodiazepines Ql (U) Negative Normal Negative [facility] Comment on above: Result Comment: Nega tive Cutoff: <200 ng/mL Performed By: #### 2 477360 #### [facility] [address] [place] [address] Cocaine Ql (U) Negative Normal Negative [facility] Comment on above: Result Comment: Nega tive Cutoff: <300 ng/mL Performed By: #### 2 253034 #### [facility] [address] [place] [address] Opiates Screen Ql (U) Negative Normal Negative [facility] Comment on above: Result Comment: Nega tive Cutoff: <300 ng/mL Performed By: #### 2 876205 #### [facility] [address] [place] [address] Phencyclidine Screen method >25 ng/mL Ql (U) Negative Normal Negative [facility] Comment on above: Result Comment: Nega tive Cutoff: <25 ng/mL These drug screen results are to be used for medical (i.e., treatment) purposes only. Unconfirmed drug screening results must not be used for non-medical purposes (e.g., employment testing, legal testing). Performed By: #### 2 999955 #### [facility] [address] [place] [address] Tetrahydrocannabinol Screen method >50 ng/mL Ql (U) Negative Normal Negative [facility] Comment on above: Result Comment: Nega tive Cutoff: <50 ng/mL Performed By: #### 2 476118 #### [facility] [address] [place] [address] RAD - Ultrasound Reporton RAD - Ultrasound Report [id number] #1.00CD:127 Normal [facility] Lab Reportson 03-14-2020 Lab Reports [id number] #1.00CD:127 Normal [facility] Ambulatory Clinical Summaryo n 02-29-2020 Ambulatory Clinical Summary {[id number]}CD:085450 Normal [facility] Ambulatory Clinical Summary {[id number] [id number]-[id number]}CD:[id number] Normal [facility] Obstetrics Office/Clinic Not jasmine 02-29-2020 Obstetrics Office/Clinic Note Chief Complaint OB 15w 2d, feeling flutters, occ. [place] Obstetric History History (1,0,0,2) # 1 Baby 1 Outcome Date: 2008 Outcome: Live Outcome or Result: Vaginal Gender: Female Gest Age: 41 weeks Wt: 3232 g [place] [facility] [place] Labor: -- Child's Name: -- Baby's [...] trimester) Ordered: Office Visit Level 4 Est 66483 TH 2. Obesity complicating , second trimester (O99.212: Obesity complicating , second trimester) Ordered: Office Visit Level 4 Est 83330 TH 3. 15 weeks gestation of (Z3A.15: 15 weeks gestation of ) Ordered: Office Visit Level 4 Est 70236 TH Follow-up With When Contact Information Funmilayo ESCOBEDO MD In [address] [place] [address]- Additional Instructions: Problem List/Past Medical [...] Protein Urine Dipstick: Negative (02/29/20 15:46:00) Normal [facility] Comment on above: Result Comment: Elec [...] Document Reviewed: 05/19/2009 ExitCare? Patient Information ?2013 [facility]. [facility] Medicine How a Baby Grows During [...] flex an (more content not included)... Normal [facility] Physician Referralon 021 Physician Referral [id number] #1.00CD:127 Normal [facility] RAD - Ultrasound Reporton RAD - Ultrasound Report [id number] #1.00CD:127 Normal [facility] Physician Referralon 020 Physician Referral [id number] #1.00CD:127 Normal [facility] Physician Referralon 020 Physician Referral [id number] #1.00CD:127 Normal [facility] Chlamydia/Gonococcus, NAAon 01-30-2020 C. trachomatis rRNA KAIDEN+probe Ql (Unsp spec) Negative Invalid Interpretation Code Negative [facility] Comment on above: Performed By: #### 2 209452, 2528395, [id number] #### [facility] [address] [place] [address] N. gonorrhoeae rRNA KAIDEN+probe Ql (Unsp spec) Negative Invalid Interpretation Code Negative [facility] Comment on above: Result Comment: Perf ormed at: =G [facility] [address] [place], [place] [id number] MD Kehinde Rivero Performed By: #### 2 521057, 7892136, [id number] #### [facility] [address] [place] [address] Coding Summary.on 01-29-2020 Coding Summary. CODING DATE: 01/29/2020 FINAL [facility] STATUS: Home (Routine DC) PAYOR: Self Pay [...] Garcia Date Saved: 01/29/2020 01:52 pm Normal [facility] Ambulatory Clinical Summaryo n 01-27-2020 Ambulatory Clinical Summary {[id number]}CD:[id number] Normal [facility] Obstetrics Office/Clinic Not jasmine 01-27-2020 Obstetrics Office/Clinic Note Chief Complaint 1st OB 10 Weeks 4 days. Some Nausea. Obstetric History History (1,0,0,2) # 1 Baby 1 Outcome Date: 2008 Outcome: Live Outcome or Result: Vaginal Gender: Female Gest Age: 41 weeks Wt: 3232 g [place] [facility] [place] Labor: -- Child's Name: -- Baby's [...] use. Last pap 2-13-18, NILM. 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 Review of Systems Constitutional: No fever, No [...] genetic testin (more content not included)... Normal [facility] Comment on above: Result Comment: Elec [...] Document Reviewed: 07/23/2008 ExitCare? Patient Information ?[address] [employer] [facility] Patient Letter FTon 2019 Patient Letter [facility] January 27, [address] [place] [address] MYA MYLES 1990 Our patient Mya Myles is with a single IUP. EDC is 08/20/[address] [address] Normal [facility] Coding Summary.on 01-22-2020 Coding Summary. CODING DATE: 01/22/2020 FINAL [facility] STATUS: Home (Routine DC) PAYOR: Self [...] Gloria Fleming Date Saved: 01/22/2020 08:[address] [facility] US 1st Trimesteron 01-11-2020 1st Trimester [...] corresponding gestational age +/- 1 week are: Gomer Rump Length: 1.8 cm Composite Ultrasound Age: [...] Transabdominal Ultrasound Performed Size = Dates Normal [facility] Ambulatory Clinical Summaryo n 01-07-2020 Ambulatory Clinical Summary {[id number]}CD:416085 Normal [facility] Ambulatory Clinical Summaryo n 01-06-2020 Ambulatory Clinical Summary {[id number]}CD:[id number] Normal [facility] Quanton 01-06-2020 HCG.beta subunit Qn 408909 m[IU]/mL High 1-3 [facility] Comment on above: Result Comment: GEST ATIONAL AGE HCG RANGE (mIU/mL) NON- <1-3 0.2-1 WEEKS 5-50 1-2 WEEKS 50-500 2-3 WEEKS 100-5,000 3-4 WEEKS 500-10,000 4-5 WEEKS 1,000-50,000 5-6 WEEKS 10,000-100,000 6-8 WEEKS 15,000-200,000 8-12 WEEKS 10,000-100,000 Performed By: #### 2 123470, 3186086, [id number] #### [facility] [address] [place] [address] Consent for Treatmenton 12-19 Consent for Treatment [id number] #1.00CD:127 Normal [facility] Gynecology Office/Clinic Not jasmine 01-06-2020 Gynecology Office/Clinic Note Chief Complaint Confirmation of , Nausea Some Vomitting. Has had Dark pink Spotting, First OB paper work added . Obstetric History History (1,0,0,2) # 1 Baby 1 Outcome Date: 2008 Outcome: Live Outcome or Result: Vaginal Gender: Female Gest Age: 41 weeks Wt: 3232 g [place] [facility] [place] Labor: -- Child's Name: -- Baby's [...] order subsequent US. Plan to refer to [facility] d/t hx child with congenital lymphedema. [...] test, result positive) Ordered: HCG, Urine POC 95687 Follow-up No qualifying data available Problem List/Past [...] Results HCG, Urine: Positive (01/06/20 09:31:00) Normal [facility] Comment on above: Result Comment: Elec tronically Signed By: RHONDA DICKEY, Caroline\.br\Date and Time Signed: 01/06/20 10:17 EST Progesteroneon 01-06-2020 Progesterone [Mass/Vol] 18.00 ng/mL Invalid Interpretation Code [facility] Comment on above: Result Comment: REFE RENCE RANGE Males 0.14-2.06 ng/mL Non- Females Follicular 0.10-0.60 ng/mL Luteal 3.00-17.5 ng/mL Midluteal 3.30-18.6 ng/mL Post-Menopausal 0.10-0.40 ng/mL First Trimester 8.30-66.5 ng/mL Second Trimester 18.9-66.1 ng/mL Third Trimester 35.8-312.4 ng/mL Performed By: #### 2 526866, 5250747, [id number] #### [facility] [address] [place] [address] Coding Summary.on 12-14-2019 Coding Summary. CODING DATE: 12/14/2019 FINAL [facility] STATUS: Home (Routine DC) PAYOR: Self Pay [...] Garcia Date Saved: 12/14/2019 02:13 pm Normal [facility] ED Note-Physicianon 12-14-19 20 ED Note-Physician Basic Information Time Seen: Gege Love PA-C 12/13/2019 19:14 Chief Complaint pt to ED with c/o consuming plastic from a burger at [employer] today. pt is . denies complaints History of Present Illness This patient presents emergency department after ingesting some type of plastic while eating a sandwich at [employer]. She states she was at [employer] restaurant. She bit down on something hard [...] Chao Blackwell In 3 days 12/16/[address] [place] [address] [facility] (1) Additional Instructions: Patient Education Swallowed Foreign Body, Adult, Ntvj-yb-Fwla Problem List/Past Medical History Ongoing Ovarian cyst Historical Medications Inpatient No active inpatient medications Home Bactroban 2% Cream, 1 ced, Topical, TID Phoenix 325 mg-5 mg oral tablet, 1 tab(s), Oral, q4hr, PRN Allergies No Known Allergies Social History Alcohol - Denies Alcohol Use, 11/21/2009 Substance Abuse - Denies Substance Abuse, 11/21/2009 Tobacco - Denies Tobacco Use, 11/21/2009 Family History Diabetes mellitus type 2: Mother and Father. Hypertension: Mother and Father. Lab Results No qualifying data available. Diagnostic Results No qualifying data available. [facility] Comment on above: Result Comment: Elec tronically Signed By: Gege Love PA-C\.br\Date and Time Signed: 12/13/19 19:34 EDT\.br\Electronically Co-Signed By: Ed Jerome MD\.br\Date and Time Co-Signed: 12/14/19 05:14 EDT Consent for Treatmenton 11-19 Consent for Treatment [id number] #1.00CD:127 Normal [facility] Discharge Instructionson Discharge Instructions [id number]#1.00CD:127 Normal [facility] ED Clinical Summaryon 2019 ED Clinical Summary [address] [address] ED Clinical Summary Person Information Name: MYA MYLES [place] Age: 29 Years : 1990 Sex: Female Language: Sammarinese PCP: Chao Blackwell III, DO Marital Status: Single MRN: Visit Id: Visit Reason: Medical screening exam; CONSUMED PLASTIC IN A BURGER FROM [employer], APRX 6-8 WEEKS Speciality: Acuity: 4 Enc [...] 12/13/2019 19:44:03 12/13/2019 19:44:03 12/13/2019 19:44:03 ADDRESS: [address] [place] [address] [address] [place] [id number] [facility] DOC NOTES: MEDICAL INFORMATION: Prescriptions Given: Medications to Continue with No Changes Other Medications acetaminophen-hydroc odone (Phoenix 325 mg-5 mg oral tablet) 1 Tablets By Mouth every 4 hours as needed for pain. Refills: 0. mupirocin topical (Bactroban 2% Cream) 1 Application Topical 3 times a day. Refills: 0. PATIENT EDUCATION INFORMATION: Instructions: Swallowed Foreign Body, Adult, Tfhj-kn-Rhdn Follow up: With: Address: When: [facility], [place] [address] Business (1) In 3 days 12/16/2019 DIAGNOSIS: 1:Ingestion of foreign body Normal [facility] ED Patient Education Noteon 12-13-2019 ED [...] Document Reviewed: 05/22/2011 ExitCare? Patient Information ?2015 [employer]. This information is not intended to replace advice given to you by your health care provider. Make sure you discuss any questions you have with your health care provider. Normal [facility] ED Patient Summaryon 020 ED Patient Summary [address] [address] Patient Discharge Instructions Person Information Name: MYA MYLES Age: 29 Years Arrival Date: 12/13/2019 18:29:24 Discharge Diagnosis: 1:Ingestion of foreign body Primary Care Physician: Chao Blackwell III, DO Provider Information Primary Provider: Advanced Crystal Slicer:None The exam and treatment you received in the Emergency Department were for an urgent problem and are not intended as complete care. It is important that you follow up with a doctor, nurse practitioner, or physician?s assistant buyer for ongoing care. If your symptoms become worse or you do not improve as expected and you are unable to reach your usual health care provider, you should return to the Emergency Department. We are available 24 hours a day. MYLESMYA has been given the following list of patient education materials, prescriptions and follow-up instructions: Follow-up Instructions: With: Address: When: Chao Blackwell [address] [place] [address], [facility], [place] [address] Business (1) In 3 days 12/16/2019 In the event that this physician does not participate in your insurance network, please consult with your insurance company to find a nearby participating provider. Patient Education Materials: Swallowed Foreign Body, Adult, Gnme-rb-Xwak A MESSAGE TO ALL PATIENTS REGARDING OPIOIDS PRESCRIPTION OPIOIDS: WHAT YOU NEED TO KNOW Prescription opioids can be used to help relieve dewwukvs-iv-xbwydc pain and are often prescribed following a [...] be struggling with addiction, tell your health palliative care nurse practitioner and ask for guidance or call [facility]S National Helpline at 1-941-053-LSEB. (more content not included)... Normal [facility] Vital Signs Date Time Vital Sign Value Performing Clinician Rene hernandez 12-12-2023 09:52-0400 Body mass index (BMI) [Ratio] 35.48 kg/m2 [employer] Work Phone: [facility] 12-12-2023 09:52-0400 Body weight 88 kg [employer] Work Phone: [facility] 12-12-2023 09:52-0400 Diastolic blood pressure 68 mm[Hg] [employer] Work Phone: [facility] 12-12-2023 09:52-0400 Systolic blood pressure 110 mm[Hg] [employer] Work Phone: [facility] 11-27-2023 15:35-0400 Body mass index (BMI) [Ratio] 34.57 kg/m2 Catherine TRACY Work Phone: [facility] 11-27-2023 15:35-0400 Body weight 85.73 kg Catherine TRACY Work Phone: [facility] 11-27-2023 15:35-0400 Diastolic blood pressure 76 mm[Hg] Catherine TRACY Work Phone: [facility] 11-27-2023 15:35-0400 Systolic blood pressure 114 mm[Hg] Catherine TRACY Work Phone: [facility] Encounters Encounter Date Encounter Type Care Provider Facility Start: 12-12-2023 End: 12-12-2023 Bamboo flowsheet Deven Russel DO Work Phone: [facility] Start: 12-12-2023 End: 12-12-2023 Bamboo flowsheet Deven Russel DO Work Phone: [facility] Start: 12-12-2023 End: 12-12-2023 flow sheet Deven Russel DO Work Phone: [facility] Comment on above: Third trimester preg faina; 34 weeks gestation of ; Accessory placenta, third trimester Start: 12-09-2023 End: 12-09-[address] [facility] Start: 12-06-2023 End: 12-06-[address] [facility] Start: 12-04-2023 End: 12-04-2023 Office consultation new/estab patient 40 min Alysia Lee MD Work Phone: [facility] Comment on above: Obesity affecting pr egnancy in second trimester, unspecified obesity type (Primary Dx); Polyhydramnios, antepartum, single or unspecified fetus Start: 12-04-2023 End: 12-04-2023 ambulatory MARINA [facility] Start: 11-27-2023 End: 11-27-2023 ambulatory CATHERINE BAEZA Not Available Start: 11-27-2023 End: 11-27-2023 flow sheet Catherine TRACY Work Phone: [facility] Comment on above: 32 weeks gestation o f ; Third trimester ; Dysuria Start: 11-27-2023 End: 11-27-2023 Bamboo flowsheet Catherine TRACY Work Phone: [facility] Start: 11-27-2023 End: 11-27-2023 Bamboo flowsheet Catherine TRACY Work Phone: [facility] Start: 11-14-2023 End: 11-14-2023 ambulatory DEVEN RUSSEL Not Available Start: 10-24-2023 End: 10-24-2023 ambulatory DEVEN RUSSEL Not Available Start: 10-08-2023 End: 10[facility] Start: 09-09-2023 End: 09-09-2023 ambulatory CATHERINE BAEZA Not Available Start: 09-06-2023 End: 09-06-2023 [facility] Start: 08-12-2023 End: 08-12-2023 ambulatory DEVEN RUSSEL Not Available Start: 07-30-2023 End: 07-30-2023 ambulatory LADONNA CEBALLOS Not Available Start: 07-08-2023 End: 07-08-2023 ambulatory DEVEN RUSSEL Not Available Start: 06-07-2023 End: 06-07-2023 ambulatory DEVEN RUSSEL Not Available Start: 05-17-2022 End: 05-18-[address] IRENE ZUÑIGA Facility:[facility] Start: 05-16-2022 End: 05-16-[address] DEVEN GOODE . Facility:[facility] Start: 02-16-2020 End: 02-16-2020 Subsequent hospital visit by physician Najma Hilliard Work Phone: [facility] Procedures Date Procedure Procedure Detail Performing Clinician Start: 12-12-2023 Urnls dip stick/tabl et rgnt non-auto w/o micrscp Deven Russel DO Work Phone: Start: 12-04-2023 End: 12-04-2023 Glucose quantitative blood xcpt reagent strip Alysia Lee MD Work Phone: Start: 11-27-2023 Urnls dip stick/tabl et rgnt non-auto w/o micrscp Catherine TRACY Work Phone: Plan of Treatment Date Care Activity Detail Author Start: 12-03-2024 Tobacco Screening Tobacco Screening [facility] Start: 09-05-2024 Adult BMI Screening Adult BMI Screen ing [facility] Start: 12-25-2023 End: 12-25-2023 Patient encounter procedure 12/25/2023 3:50 PM EST Routine [facility] [address] [place] [address] Catherine Baeza PA [address] [place], [facility] Start: 12-12-2023 End: 12-12-2023 Patient encounter procedure 12/12/2023 9:30 AM EDT Routine [facility] [address] [place] [address] Deven Goode DO [address] Sidney Kapoor, [facility] Start: 10-20-2023 Influenza vaccination Influenza Vacc ine [facility] Start: 10-20-2019 Influenza vaccination Flu vaccine (# 1) [place], [place] Start: 2013 Screening for malign ant neoplasm of cervix Pap Smear [facility] Start: 06-01-2011 DTaP,Tdap and Td Vaccines (1 - Tdap) DTaP,Tdap and Td Vaccines (1 - Tdap) [facility] Start: 2010 Adult BMI Follow Up Plan Adult BMI Follow Up Plan [facility] Start: 2004 Depression Screening Depression Scre [facility] Bacteria identified in Urine by Culture Urine culture Microbiology Routine Dysuria Ordered: 11/27/2023 [facility] Work Phone: Comment on above: Ordered: 11/27/2023 Payers Date Payer Category Payer [place] [employer] [id number] 2022 Blue Cross Blue Shie ld Managed Care - Other ANTHEM [id number] 2022 Unknown BCBS BCBS [id number] [id number] 2022-Present [phone] [id number] [place] [address] [id number] 2022 Unknown [id number] 1992 Unknown [id number] 2..840.1.698530.3.579.2. 593 1992 Unknown [id number] 2.16840.1.273689.3.579.2. 593 1992 Unknown [id number] 2.16.840.1.767235.3.579.2. 1259 1992 Unknown [id number] 2.16.840.1.450618.3.579.2. 1259 1992 Unknown [id number] 2.16.840.1.561193.3.579.2. 1259 1992 Unknown [id number] 2.16.840.1.794045.3.579.2. 9 1992 Unknown [id number] 2.16.840.1.568398.3.579.2. 9 1992 Unknown [id number] 2.16.840.1.630026.3.579.2. 1258 1992 Unknown [id number] 2.16.840.1.580930.3.579.2. 9 1992 Unknown [id number] 2.16.840.1.897073.3.579.2. 1258 1992 Unknown [id number] 2.16.840.1.624228.3.579.2. 1285 1992 Unknown [id number] 2.16.840.1.755992.3.579.2. 1285 1992 Unknown [id number] 2.16.840.1.478557.3.579.2. 1285 1992 Unknown [id number] 2.16.840.1.089400.3.579.2. 1285 1992 Unknown [id number] 2.16.840.1.237290.3.579.2. 1286 1959 Unknown [id number] Social History Date Type Detail [facility] smoked [place], [place] Start: 1990 Sex Assigned At Not on file [place] Start: 07-30-2023 End: 09-06-2023 Tobacco smoking status NHIS Never smoked tobacco [facility] Start: 07-30-2023 End: 09-06-2023 Tobacco use and exposure Smokeless tobacco non-user [facility] Start: 07-30-2023 End: 12-04-2023 History of Social function [facility] Start: 07-30-2023 End: 12-04-2023 Tobacco use panel [facility] Start: 05-01-2023 [facility] Start: 12-04-2023 Alcoholic beverage intake Ex-drinker (finding) [facility] Within the past 12 months we worried whether our food would run out before we got money to buy more. Never True [facility] Start: 08-15-2023 Sex Female (finding) [facility] Clinical Notes 04-21-2020 to 12-12-2023 Bindu Bravo LPN - 12/12/2023 9:30 AM EDTTelephone Encounter - Shoshana Berlinantony - 12/09/2023 2:20 PM EDTTelephone Encounter - Shoshana Way - 12/09/2023 2:20 PM DEMARCUS Vasquez - 11/27/2023 3:20 PM EDT Note Date & Type Note Facility 12-12-2023 History of Presen t illness Narrative Reason [...] Diagnosis Date ADHD (attention deficit hyperactivity disorder) ([facility]) HISTORY PAST MEDICAL HISTORY SOCIAL HISTORY Past Medical History: Diagnosis Date ADHD (attention deficit hyperactivity disorder) ([facility]) Social History Tobacco Use Smoking status: Never Smokeless tobacco: Never Substance Use Topics Alcohol use: Not on file Drug use: Not on file FAMILY HISTORY No family history on file. SURGICAL HISTORY History reviewed. No pertinent surgical history. REVIEW OF SYSTEMS Review of Systems: Review of Systems All other systems reviewed and are negative. OBJECTIVE Objective: Physical Exam Constitutional: Appearance: Normal appearance. She is well-developed. Cardiovascular: Rate and Rhythm: Normal rate and regular rhythm. Pulmonary: Effort: Pulmonary effort is normal. Breath sounds: Normal breath sounds. Abdominal: General: Bowel sounds are normal. There is no distension. Palpations: Abdomen is soft. Tenderness: There is no abdominal tenderness. There is no guarding or rebound. Musculoskeletal: General: No swelling. Normal range of motion. Right lower leg: No edema. Left lower leg: No edema. Neurological: Mental Status: She is alert and oriented to person, place, and time. Skin: General: Skin is warm and dry. Psychiatric: Mood and Affect: Mood normal. Behavior: Behavior normal. Vitals and nursing note reviewed. Exam conducted with a plant inspector present. Vitals: Estimated body mass index is 35.48 kg/m as calculated from the following: Height as of 05/16/22: 5' 2 . Weight as of this encounter: 194 lb. BP: 110/68 Patient's last menstrual period was 04/10/2023. ASSESSMENT & PLAN ICD-10-CM 1. Third trimester Z34.93 POCT urinalysis dipstick manually resulted 2. 34 weeks gestation of Z3A.34 POCT urinalysis dipstick manually resulted Patient presents today for a routine obstetrics appointment. Patient is currently 34w1d with a Estimated Date of Delivery: 01/22/24. Patient does have an accessory lobe placenta and noted on chart for at time of delivery. Patient verbalized understanding. Patient did take antibiotic for UTI. Patient voiced that at [facility] they discussed extra fluid & reassurance given to patient and spouse. Patient voiced that specialist did give a few reasons as to what may have caused the increased fluid. Discussed possibly eating protein waffles that were recalled and reassurance given to patient in regards to what to look out for and that baby is being monitored weekly. Documented by Bindu Bravo LPN on behalf of: Deven Goode DO documented in this encounter [facility] 12-09-2023 Miscellaneous Notes I LEFT A MESSAGE FOR PT TO CALL ME, I WILL CALL PT BACK TO SCHEDULE HER FOR A GROWTH U/S, ALSO A VIDEO VISIT WITH ONE OF THE DRS documented in this encounter [facility] 12-09-2023 Telephone encounter Note I LEFT A MESSAGE FOR PT TO CALL ME, I WILL CALL PT BACK TO SCHEDULE HER FOR A GROWTH U/S, ALSO A VIDEO VISIT WITH ONE OF THE DRS [facility] 12-06-2023 Miscellaneous Notes I LEFT A MESSAGE FOR PT TO CALL ME SO WE CAN SCHEDULE A GROWTH U/S. PT THINKS SHE ONLY NEEDS U/S AT PRIMARY OB OFFICE. CATHERINE Shahid SAID SHE NEEDS TO COME HERE. THANK YOU documented in this encounter [facility] 12-06-2023 Telephone encounter Note I LEFT A MESSAGE FOR PT TO CALL ME SO WE CAN SCHEDULE A GROWTH U/S. PT THINKS SHE ONLY NEEDS U/S AT PRIMARY OB OFFICE. CATHERINE Shahid SAID SHE NEEDS TO COME HERE. THANK YOU [facility] 12-04-2023 History of Presen t illness Narrative [...] mouth in the morning., Disp: , Rfl: [id number] acid ( 19) 29 mg iron- 1 [...] ALYSIA LEE MD documented in this encounter [facility] 11-27-2023 History of Presen t illness Narrative [...] Diagnosis Date ADHD (attention deficit hyperactivity disorder) ([facility]) HISTORY PAST MEDICAL HISTORY SOCIAL HISTORY Past Medical History: Diagnosis Date ADHD (attention deficit hyperactivity disorder) ([facility]) Social History Tobacco Use Smoking status: Never [...] Patient scheduled for US NEXT WEEK WITH [facility], orders for nst and bpp sent for starting Orders Placed This Encounter Procedures POCT urinalysis dipstick manually resulted Follow Up: Patient is to return to office in 2 weeks for routine OB appointment. Documented by Leah Mason on behalf of: DEMARCUS Ross documented in this encounter [facility] 08-16-2020 Note DATE OF DISCHARGE: 0 08/05/2020 [...] complications. Course: Without complications. Sukhdeep Schaffer MD, [facility] Dictated: 08/13/2020 #[id number] Typed: 08/15/2020 #[id number] cc: Sukhdeep Schaffer MD, [facility] Comment on above: Result Comment: Elec tronically Signed By: Karime MACEDO, Sukhdeep Olivera\.br\Date and Time Signed: 08/16/20 08:09 EDT 08-05-2020 Note The following Patien t Education Materials have been given to the patient: EducationMaterial [facility] 08-04-2020 Note Patient: LAZARO MYLES Age: [...] Attention deficit hyperactivity disorder / SNOMED CT 9633602777 / Confirmed Chronic fatigue syndrome / SNOMED CT 73909899 / Confirmed Depression during / SNOMED CT 0484601070 / Confirmed Insomnia / SNOMED CT 343909064 / Confirmed Obesity / ICD-9-CM 278.00 / Possible Obesity complicating , third trimester / SNOMED CT 1236639748 / Confirmed Ovarian cyst / SNOMED CT 956030888 / Confirmed / SNOMED CT 189441201 / Confirmed labor / Patient Care / Confirmed Supervision of high risk in third trimester / SNOMED CT 95293654 / Confirmed Histories History History (1,0,0,2) # 1 Baby 1 Outcome Date: 2008 Outcome: Live Outcome or Result: Vaginal Gender: Female Gest Age: 41 weeks Wt: 3232 g [facility]: [facility] Labor: -- Child's Name: -- Baby's [...] Use (11/21/2009) DENIES 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 Home/Environment Lives with Children, Significant other. [...] hearing, Oral mu (more content not included)... [facility] Comment on above: Result Comment: Elec tronically Signed By: LAURA MACEDO, Funmilayo Ryan\.br\Date and Time Signed: 08/04/20 13:03 EDT 07-31-2020 Note The following Patien t Education Materials have been given to the patient: [facility] 07-26-2020 Note The following Patien t Education Materials have been given to the patient: [facility] 07-11-2020 Note HOSPITAL REGULATIONS : ALL [...] for further cervical progression. Sukhdeep Schaffer MD, FACOG gls Dictated: 07/08/2020 #[id number] Typed 07/08/2020 #[id number] cc: Sukhdeep Schaffer MD, [facility] Comment on above: Result Comment: Elec tronically Signed By: Karime MACEDO, Sukhdeep Olivera\.br\Date and Time Signed: 07/11/20 07:40 EDT 07-08-2020 Note The following Patien t Education Materials have been given to the patient: [facility] 04-21-2020 Note The following Patien t Education Materials have been given to the patient: [facility] Evaluation note Diagnosis 32 weeks gestation of Third trimester state, incidental Dysuria [facility] Diagnosis Obesity affecting in second trimester, unspecified obesity type- Primary Polyhydramnios, antepartum, single or unspecified fetus [facility] Diagnosis Third trimester state, incidental 34 weeks gestation of Accessory placenta, third trimester documented in this encounter [facility] HealthcareInstructionsNot on filedocumented in this encounterPro[facility] SystemInstructionsNot on filedocumented in this encounterProBlanch[facility] Summary Purpose Family History No Family History Records FoundNo Family History Records FoundNo Family History Records FoundNo Family History Records Found Advance Directives No Advanced Directives Records FoundNo Advanced Directives Records FoundNo Advanced Directives Records FoundNo Advanced Directives Records Found Additional Source Comments INFORMATION SOURCE (unrecogn ized section and content) DATE CREATED AUTHOR 09/15/2020 [facility] DATE CREATED AUTHOR AUTHOR'S ORGANIZ ATION 06/29/2022 [facility] DATE CREATED AUTHOR AUTHOR'S ORGANIZ ATION 11/29/2023 [facility] DATE CREATED AUTHOR AUTHOR'S ORGANIZ ATION 12/07/2023 [facility] Reason for Visit (unrecogniz ed section [...] BE BASED ON THE PRIMARY CLINICAL RECORDS. [facility]. provides no warranty or guarantee of the accuracy or completeness of information in this document.
[2023-12-13 12:17] VITALS: BP 111/65; PULSE 86
== END 2023-12-13 12:55 | disposition home or self-care (01) ==
LOC: FBCO 07:12 → FBC 12:12
PROVIDERS: Visit Provider Obstetrics & Gynecology
DX: O36.63X0 Maternal care for excessive fetal growth, third trimester, not applicable or unspecified (principal)
CPT/HCPCS: 59025

== ENCOUNTER 2023-12-17 07:20 | Outpatient (OUT) | payer BC, SELFPAY ==
--- OUTSIDE RECORDS SUMMARY | 2023-12-17 07:24 | XMS_ITS | CCD ---
Author Organization 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 Name Role Phone Unavailable Primary Care Provider Unavailabl e RUSSEL ., DR WILKERSON Admitting Unavailable RUSSEL ., DR WILKERSON Attending Unavailable RUSSEL ., DR WILKERSON Consulting Unavailable BLOOMERY, DR IRENE Dee Consulting Unavailable RUSSEL ., DR WILKERSON Attending Unavailable RUSSEL ., DR WILKERSON Admitting Unavailable RUSSEL ., DR WILKERSON Consulting Unavailable Unavailable Primary Care Provider Unavailabl e Unavailable Primary Care Provider Unavailabl e RUSSEL, DEVEN R Referring Unavailable MOUSSA, RY NADIM Attending Unavailable CHARLOTTE VELASCO Referring Unavail able RUSSEL, DEVEN R Referring Unavailable MARINA MARTINEZ Attending Unavailable RUSSEL, DEVEN R Referring Unavailable ALYSIA LEE Attending Unavailable RUSSEL, EDVEN R Referring Unavailable RUSSEL, DEVEN Attending Unavailable LADONNA CEBALLOS Attending Unavailable RUSSEL, DEVEN Attending Unavailable CATHERINE BAEZA Attending Unavailable RUSSEL, DEVEN Attending Unavailable RUSSEL, DEVEN Attending Unavailable ARYANCATHERINE Attending Unavailable RUSSEL, DEVEN Attending Unavailable Medications Current Medications Medication Drug Class(es) [...] 7 days. 21 capsule 11/27/2023 12/04/2023 Active me255-gazr-sitep acid ( 19) 29 mg iron- 1 mg tablet,chewable (3 sources) ce276-pskw-vuelk acid ( 19) 29 mg iron- 1 [...] Negative Negative - 4(70) +++ mg/dL [facility] Blood, UA Positive Negative - 50 [place]/mcL [facility] Comment on above: trace Clarity, UA Clear [facility] Color, UA Yellow [facility] Glucose, UA Negative Negative - 1999(110) ++++ mg/dL [facility] Interpretation and review of laboratory results Abnormal [facility] Ketones, UA Negative Negative - 160(16) ++++ mg/dL [facility] Leukocytes, UA Negative Negative - 500+++ Saeed/mcL [facility] Nitrite, UA Negative Negative - Positive [facility] pH, UA 7 5 - 9 [facility] Protein, UA Negative Negative - 1999(20) ++++ mg/dL [facility] Spec Grav, UA 1.02 1 - 1.03 [facility] Urobilinogen, UA 0.2 0.2 - 12 mg/dL Replaced by [facility] Glucose random or fasting- P OCTon 12-04-2023 External Glucose Fasting Or Random (Fbs) 126 [facility] POCT Hemoglobin A1con 2023 HbA1c (Bld) [Mass fraction] 5.1 % 4 - 7 % [facility] Urinalysis macro (dipstick) panel (U)on 11-27-2023 Bilirubin, UA Negative Negative - 4(70) +++ mg/dL [facility] Blood, UA Negative Negative - 50 [place]/mcL [facility] Clarity, UA Cloudy [facility] Color, UA Yellow [facility] Glucose, UA Negative Negative - 1999(110) ++++ mg/dL [facility] Interpretation and review of laboratory results Normal [facility] Ketones, UA Negative Negative - 160(16) ++++ mg/dL [facility] Leukocytes, UA Negative Negative - 500+++ Saeed/mcL [facility] Nitrite, UA Negative Negative - Positive [facility] pH, UA 7.0 5 - 9 [facility] Protein, UA Negative Negative - 1999(20) ++++ mg/dL [facility] Spec Grav, UA 1.025 1 - 1.03 [facility] Urobilinogen, UA 0.2 0.2 - 12 mg/dL Replaced by [facility] PAP ACOG PANEL 2: 23 to 31on 05-24-2022 . . Normal [facility] Comment on above: Performed By: #### [id number] #### [facility] [address] [address] [address] Michael Garrett Age Gdln ACOG Testing 23- [facility] Comment on above: Performed By: #### [id number] #### [facility] [address] [address] [address] Michael Garrett DIAGNOSIS: Comment [facility] Comment on above: Result Comment: NEGA TIVE FOR INTRAEPITHELIAL LESION OR MALIGNANCY. CELLULAR CHANGES ASSOCIATED WITH INFLAMMATION ARE PRESENT. Performed By: #### [id number] #### [facility] [address] [place] [address] Dr. Michael Garrett Methodology: Comment [facility] Comment on above: Result Comment: This liquid based ThinPrep(R) pap test was screened with the use of an image guided system. Performed By: #### [id number] #### [facility] [address] [address] [address] Michael Garrett Note: Comment [facility] Comment on above: Result Comment: The Pap smear is a screening test designed to aid in the detection of premalignant and malignant conditions of the uterine cervix. It is not a diagnostic procedure and should not be used as the sole means of detecting cervical cancer. Both false-positive and false-negative reports do occur. . Performed By: #### [id number] #### [facility] [address] [place] [address] Dr. Michael Garrett Performed by: Comment [facility] Comment on above: Result Comment: Francisco Otero, Rewrite Editor (ASCP) Performed By: #### [id number] #### [facility] [address] [place] [address] Dr. Michael Garrett Reflex Criteria: Comment [facility] Comment on above: Result Comment: The HPV DNA reflex criteria were not met with this specimen result therefore, no HPV testing was performed. . Performed By: #### [id number] #### [facility] [address] [place] [address] Dr. Michael Garrett Specimen adequacy: Comment Normal [facility] Comment on above: Result Comment: Sati sfactory for evaluation. Endocervical and/or squamous metaplastic cells (endocervical component) are present. Performed By: #### [id number] #### [facility] [address] [place] [address] Dr. Michael Garrett US PELVIS AND TRANSVAGon [...] by: IRENE ZUÑIGA Date: 2022-05-18 07:45 Normal [facility] Nursing Assessmenton 021 Nursing Assessment [id number] #[email or web address]:127 Normal [facility] Coding Summary.on 08-16-2020 Coding Summary. CD:[id number] Gh0bWw+PGhlYWQ+PE1FV VShE30qsNMugR0CU8uHO T0ZSNVFWUFYZX1TFJ4ti MT1JHluY5ClxnGh WmgndJHsCU25LMj3JEG3 dYxcLAzblE8aqOJzP8n2 MzGdAH16fL07GBxbNRRi DtG2McIvnpgprKIl Y4jxCnEjfBDtLfj+PHRh YmxlIHdpZHRoPScxMDAl NyMdzRaeMR8dFh3oREDw LWNvbGxhcHNlOiBj j7ryZCWwDPouQU4fmYjp F8YflEV4NDEvq8j0Cq32 dHI+PPJlFSV6kOxbYRnj y715UnEje3niIMT3 uUYzFMrbYDL2X85uw8P4 TBUjKTBgFWR4kAO9wU6j xYbannabM5BdkNMpEqR0 AFX2rMJkuR7jpYaz dgyovO8tYko+G85HGN6A IMOBHA3LAzz5N7JuMkdt dHI+MF04QWFdIE19lXXz gSZzc6hicXj4ScVu FIHlTGR3gCumJDfkw1Dp XHKfQ52lgVEdl4Q9TYBf rUgecHUbGcWvvKJ8cH6q GVuczuuxo9ehctmt Brqbl9nkdt62tD31U05c EKgoXWCaRHL6TSOiNVIg tJetcw4fvI5aGv6+IDxj y0tye3wfnKi3NzGl EVKincZdcMdePYF8b1Tq Cp51S6SqwYmfs2VgFmu4 qt45bCRjq1O1nTB3YCtv MKUbsW3fHPnfKaV4 JNJgTvKezB36eFAfQCot Lx1jqThnkEegMO7dOAGz abjrVWAreQ0tZGLleMEf zRedVE3nMVBcjmpg e209WlJhGBW0WQGgzAUy O2HihN0yRaJrLOCuMBFw Q0MgkSNnLMpyY750GHoe HuR4QICitpKvW3Fq VNDneGefVyO7h5X8Yn7Y t4DmcaeuMFR7UHysJJC8 NeY8PmGoUsG7J5DfJcl0 VSMsqVmhOK8bD3Rh NUVdbphfzxhelCS6GHQt PDZtvB46yRQzKIjbOy4x s7T5u098AGAvVOTzqB07 Lt4ziWezQLMqeZVS dX8cmitvr6dmjpxeHlXn GDQiKNc5KKc1KCDilWcy XiUcIWD7WlJ4CCG5tLYc iL4ccJdscnkwvP3y Oyc+O77lmY0cKRZ8TJW2 lsxhJVIyybLhMC69FH37 Z8NvQloqiLKdyPW+PGRp vqTsaSggVU8dSsKg v4eau6XbBIldW4AfJSGr MPccIdk3FQZuKOA4cZA4 vN9sBGVdNPlxx0V7rIQ0 W9PprnTiob3vq1zu NYZuADhuY52dhFGom8F1 SYLnkEE4PCCqzBvwBzVs qW16Epy+ETKwxEtir2Bp Lfhzk2fqw8yslBr2 IjMwJSIgdmFsaWduPSJ0 d9IsWe13W70lTGenUKHs MLGrWHKoDEAemIbwtu5i tH8vAt6+PGNvbCB3 hOM6cV9kSUNyFqK3HSxn Q920LxWchZLtOqefn0vq y6bryFk4PwWuLEYqqvEh jRfkQUV7s0CpHu54 E29dAXbcLAYdMUSgTHEe LPAyyPnoie1tnT7sJi3+ OA4jm3booj27wO53dUV+ ELZvJHB2cYlmCRqj KIAjiX6aGBsdApM9SLBt SrYxpH52vTRdJGqePb8t yXnqjYwaXM8jOBSbrzds v020IsTle1zqZBPf rYZlNOalBTO7A14ka4Y4 NUVxXMDvZGV7eYN5hR1a bGlnbjogbGVmdDsgdmVy rCtgWChiIVceN161 IHRvcDsnPlBhdGllbnQg NdYpFIy5Y0ZwEbs3IBRl pFhuNN9bfSUaQOxaJi2a bZgtcTdcPR1lKKVx psise104GlSka0zpAEKf lNOhBDkcFQO1E33tq9V9 USXnYCWnFNW9gJB7dF3z bGlnbjogbGVmdDsg rrUttKfuPQpxVNquV394 IHRvcDsnPkJpcnRoIERh pFT1DO65KT00lEQnm5X9 oST1G6OvVWNnndcd fqjuxAP9NQEvQVWdoH19 Yd3nbXwkYh1fVSIePLY0 USIanEBgK3HddP5qPiYh GIRoNMVeJ1HwkZOq SUjgR791OEtgQhX4KQKd awDwK1PnQHKidPdpYwY1 k6S3We0IE6S7NV30XR88 vABjt1P6xAB5H8Ty OGQxzzheqwuwpTA1KDOx YWQciG43Oz3hqZyiRo2y WGMwFDU4TIMieINrP2Zp aA4qQpZvIRVaGXSk X3AsmCIuWQzkQ877AApw JwY5RWJrjaKlP8QmPWEk yWlxGbO4x1X6Mf4FUWm4 XD45AI34kYRdo3Q5 rUE2A8HxHRRdomerovul oSV3JCMwBLQhrG72Fn2w jMrkGa9rZJYcRYP6KWJj uUTlS6EwhQ3zAdUd GDOpDPGuL0AjnIFrIRbe U372WBsjBfX9ABGfvxVt L8JhWWRxaPtuFaA8n3K1 Mx1UHQZiQZ60QAW7 rRI3OJ87TK86F2GtTybv dGFibGU+PHRhYmxlIHdp ZHRoPScxMDAlJyBzdHls OJ3rLq7vIORgUKVn kHavdGRgEaJuk8jnWSBd JCumVQ0wbBgzZ8WawYK2 PUZbo7a0Wa22W66bL2Gt dXA+SDIhcPK8aZH9 hI7rBwUbQiK4NCtjA342 MyFjrVJgTwjap3puy5xf eDd8NaL8FIArvpKtgPsu AGU3m1PjJv64G00h IHdpZHRoPSIxNSUiIHZh wRkmwl9yyW2bQk2+PGNv pPF5hCS0aI7yVgSeJuV0 MJryF971QyYthQDb Lwfxh0odw3mpuSm8EeUl CJIxbeTncKcyWQK3t7Hr Wo62F8UmcRifz6OzRif2 hl89iURqe6F0bGO9 U9LtRPRrdylwuIOoeTpn HX9eQMNbsdybGGLcvG4n OLRiB3e0TmBeRdC1YQeh S3QbvkJ8WMMduXOh LThhWAZ1Z87wu2J7LSLt WVKcZIX6xDS5rW8srWym bjogbGVmdDsgdmVydGlj GIqkIXhnV301SOMr tWjqYIEbqE1sGUCqlLRd sKypZL1nWFGjubvzXjYI EieBTl7lQKGXGkJNV2Rf TDwvdGQ+PHRkIHN0 mAmvHSinSPXimQ2yYAMx Y8k6AjEjUcV1BYvpK9Rh BFCovcnvCp06zB4kAuHs UkV4QQrkT2JuovB0 KOJijUMzXRwaOOC0I82k z6Z3HGIkCLJrNIV6bVA8 pX2qmEftpmzrzSPxzRzk dmVydGljYWwtYWxp G637WDIpgOiiEcL0LcNm OxH2CRW1H4IgIxz3PXAx vMflEG2uxKLyQRorZn3w bAqsnHjlAP2iGDAt etntLJAizU0kBSSdjHKp iNalON8jKNNbtsees729 VhKuVFH2UZMmpEUwE4Zv zG8uOoScZELhVHYs F7FetPAkMMvbP061GVaj XfN2BTQodrNqL2LlQTLu xAqhTiC1l1P4Hk8hUILD ZWFyczwvdGQ+PHRk IIX0lGqxTUmiCBBphT1p SFFkM3a4HcAiJcH6EKaj P6TtEAUgjazqUs96wI2g KtVeAhQ1YTbiD4Kw vaZ1QXGbzGCeNFnrSHI4 E21du7C1ZFYzNUSeKPQ5 lMP0iR9dlCmmhfhfsANd dDsgdmVydGljYWwt PEsmU815QBFzaDwhQnGe bWFsZTwvdGQ+PHRkIHN0 xJtdJNbtYSXraG5iOCNe J9y9LaOvThV8KFqc I5UuSDOkbzjvSp55nK2v TvDtUkE3UMakM5GierG6 NBWgmJTsFJxhCSV0I04s w6G4UJUdTIHgDZF7 fIF2rQ4bvPeqetptpKFi dDsgdmVydGljYWwtYWxp C487ASPhrCgrMs12hTSo nGldnsG5H3QvShdv dHI+UO63CRYoOM34xEJc cHOwg0hweHc6HtCdZZVn XOL5sAngNVzcf7PiYCVl I01kqQXlt4N5QYPj pBkmyMHqYlDliEZ2xV8c COiykqdlu8njmfwdMefc g5madq50cM84R14rJYvj ZHRoPSIzMCUiIHZh uYnwlp0gyE7jCe1+PGNv uHN8gUR9wO9aOlBcFyE8 HMhuW630SaJbsDHyCtoc m5vej9xitBs9McAi VSEcesBrzThlBMQ7n9Fm Ug93D60gYSolXMKdGQLy MGUyVLGcvTieox0suT7f Ii8+XL2mb6qphd39 wO89aOR+SAIpEBT2lFcq HCtjVOYecV0dWPjeFuN5 KVVzVcLklK20zWYyYWar Nf8ijVtjqTroUH8d LIEinoebi203MzDzo3va NIGjmXMhLIskHUD0A60m x6Y2YNLkQHPfTZF6kUK7 mS2cvVzjawophHEc dDsgdmVydGljYWwtYWxp Z905TKSmrEfuJvJuuTVk T7opjpJXOS5aNcluzBA+ DITgUOZ9qZovSDye DSWhgO7sKQHcA6w8ZzZa PrY5TKksG4EfcwE4YQXd mFSpRDLvrMJPtB9tlvzf t9jmttahUiVjZBRz NUj5CXk0WXDtlAcbQyFr GUD6TzH8QBA7vYRvtD2v sGiquvjxrG7vHyk+RklO OjwvdGQ+PHRkIHN0 rAhsSTczIUWijB6xSJWs J5t2KdQsFdE8KLjzP2Du bcL6QIWyuQPwGAWmsEWK hA5zxkoqd8dxcptt LdCjQINpQWb0WKo5ORQb dAkcDyOsVNT3SpK0BTI4 vIUvyW2ozBrbzydwtE4b Oyc+TVJOOjwvdGQ+ TSCnTTX7xDhdSGshWTEf rM4kHWHvC0n6VzJhRnO3 GHdpS7NhbcR8TQTgaOQh IPWevKWXzR5tzmiz m2oggrmaJgXiHRUhYRc4 DUr8GBUejXqmNiUzZWS8 NdA6OZV0hOMpzA0ibXib hqjxxB2cSpz+UGF5 QMM7GG10EE42S7EyPpcu dGFibGU+PHRhYmxlIHdp ZHRoPScxMDAlJyBzdHls YB0fDb3hNHFaOCDa bGxh (more content not included)... Normal [facility] Coding Summary.on 08-15-2020 Coding Summary. CD:[id number] Gh0bWw+PGhlYWQ+PE1FV MTmQ47fuHEaoD0BY4tEG J1DZCLBKZLMLO2WQC5kl YA2JQnmG4KzrnSe KmybnBFgTN86FAu6VNP1 vHnaALoocO6ogTIfE0n9 KsNtSX42wR29JVrxDFFl JhB7JsIoxwhmlORr O9vnGtNjgWItFrg+PHRh YmxlIHdpZHRoPScxMDAl OwTixHjtSN2fJk6gKTMp LWNvbGxhcHNlOiBj c8doDHUfFAtpAE7xwHam W6JkbAH5SYZus5z7Nr99 dHI+CMZfKMS3uWmjROfm j335SyJfy2ofGCN3 bOBzTTptTZB6V09nn4D0 KGKxYJNhCGE1dGR2qW0w gHtzrdkaQ3PlfLPtBkD0 APJ7vFGvwF1jiKxx ndgteY2oHli+K79KQD7X FILVVH9MRtv2I6TmVglk dHI+FI47MIKtDL03hODs zDCtc5djtCq6GoPr MODbESJ7aEzfFBgqr0Jj NHYxQ75glTPtg9N8ILFi sGlvnHEnAdYltTK6eQ8a CFvqcdmkd0nxxwbt Hsiwk4wjpy37oK50V12f EYwpLZJuLEV1LXDxECPb hIpqli8vdC9sIu4+IDxj i5buh9yymMt3DyJr DUOhnvIhoCpkINR0m8Ze Gw53Z7ZeoLgco8RbReq1 jf49jQUzt9D8xLF2FLqv QYNrvX8kWOseGnY2 FKVkQpOvcH05xSPnEJio Cf4grFnofSvzZS7cLYGk wjuoVAHdhA7nQTTsfPTg hUycCX8lGDDhbymj q296HvMtFUS1UJRdhLOe P4LzaZ0oKkIpINWdREUf R3PjiWFiCQutM713GDdt AnF0LLPmeuVnB7Xm QNSiuAhaFvW5v4T6Dq5W k9HdciurRAT0VGjdVUG7 DbN1UdDvXmM8X2ZsCng8 GAMeyCdlLO0gD2Cn GCDomxdnocurfII7FGHv PJAgfV95rWZdKIhbOw5b d7C3r193AYRaSYAxsE55 Ku7oqZyfCNBdjIFT oX0yrcovw6lmklxnJwPi JBSxYYn7RVz5NSBosQnj PuZuNZX8ZvL6UWV5eOJt kK0xeKtphwvzgC5c Oyc+B26koP3lHFY3RGK3 txbyIPIvntIwVQ37WL99 P5LaTrmxyVFqyXB+PGRp lcFjvBqqRL8tByDt d2uwl4WiIZjdS6ImRFLb TDavTak0VHOyXCB2xBJ0 oW7pRMKjGZyos2S9fJZ7 K5HwtwQnod7du5or QRDmXStzP06jrYBpn4Y6 SCSteZW1TDLboXlwEjVx xG29Zcx+UZFakCfbc9Md Calja7uhg8anqXi4 IjMwJSIgdmFsaWduPSJ0 z9EuKb73H18cSAuoOKBb WOFdIHFfRLOuaZwapz4b iE9nJk0+PGNvbCB3 mRD0nA3wNEElFlB2TAim D880TlMfjZZqIivbu9ej t2ulwUo1VpGrOPItjuYq bOktWLN5y1JdWk38 T55hTBjbWEOeFJEyIWNx JZSvjZvvqo3tsW5wTt7+ GF2wu1ukha48qI89qZA+ ALLrAZH5pPlzOScg RLAhsK2gHSwoUeJ9WXQz ToKskE12mXTjEMfvQz3v iAddlShgXT5pVQSsddcd w379AkPtv8zkCTTq sAXcSSpiYZC9D98ac2G2 DPZgPVWhQXY2lTA5oM4k bGlnbjogbGVmdDsgdmVy fKfxIIoaINjrM575 IHRvcDsnPlBhdGllbnQg GqBwNIw2P1YlZcn7DQRr zWniSD1ccKXwZVqeJv8q pSrxpAnrFV1fTNPd upobx006QsIik0zwPGDm qOHkXAtlZTL5G71if6K4 GTJoELWyBHS7oWG5aT5u bGlnbjogbGVmdDsg zmOgkUysCIpxBBrrK887 IHRvcDsnPkJpcnRoIERh rSG2AF58WN33cRSho1T9 qLY5G9RqHGWaonuf batjzCE8SXCiOCTdyJ03 Bh7obLfzQp0kYJGwJCL2 ZMWjaXCaR9VfsR9nJkGi VOOhGZEiO8SprPYu FDpmL660ZPqzEuA5BYWr apLrC2XjQEBxdCdwFfY1 u7D2Ss3UL9Q5TS92LY62 uYKth0Y6aPV5I1Qc SDEkeqqjpbtjjZK0LWOc ZVOtjU38Os8yyVdyKd0e YXJaWWR3WZKguCMgE3Uh pX1vOnKrFVReICPa M3MzxYAqPIfwZ514PQzd AcS9JURnzmMkA8HoQBBa jTbxKfR5y1X8Sm1POOz2 OQ64LA04fVFiy5J5 cCP7N6OfFFIxoaxcwdad oFY3FVJaLJIalR77Up6z xRcnHu0mKWZcCBF3LKXw eHBaX5GdyJ9vTzYk WZGvOBSaL3CugUGkQIik A640XBnfNzZ8HJKdovWg O7XvARZcdZtnNbX8u1H4 Ng9QGZVyTR21HAQ9 zMK6EB59WR57V4CaAbob dGFibGU+PHRhYmxlIHdp ZHRoPScxMDAlJyBzdHls XU5zUj2qFCMuIXRg yZinsYLaRtQqf7ewFHYa UHufAP3knBmlU4JzsDA3 IHPxn9j1Bx29Y38nR5Im dXA+IEXlqCT2jAH5 bV3jVhEiFpD2RTocO253 HnIyqHTdFitzy8iij6yp hMj1QxI0VLOkwjSjeCnt MZF6r3DoQq63R40l IHdpZHRoPSIxNSUiIHZh wNhhig8yqZ1pGo8+PGNv tBR6gGY9xF2gUbJcScD4 WLodL433SnZhkUEd Rasss4run6khxLb0XtEa UYTtayHgmXaoTBM5m4Dw Ks67S2AutQqhp5UbUag0 ib97lMJsz7F8zZR4 P5FpFUQbbhruhKHmhHyb OD9bRVKkohrfWZYrtY8t PFPxY4h2IeJfHyS8PGkq B4HqvwA5HLLucGDn GVhuIZB8O54hg7T9HXZw SEDkLLH2gFX9kW9doWhd bjogbGVmdDsgdmVydGlj UNslMCluG423TWGf cXbhMLQqkU9mJOPxkXIr lVfdUR4eBNEwoitqPlHF WkbKTa9jVAJLExLUS0Pw TDwvdGQ+PHRkIHN0 rUwuLKonDSYbcU8xDSZf M2m7QkDzBvE5LXcfT4Rj ODUrcghdUb95gV7tOqSs UhJ8NBrcF9FainE2 LOQplBStBUqaPHE4D59d o6H5VKVwWYYyUHJ7jDJ4 iP7hgXockwloeLZhqRmj dmVydGljYWwtYWxp G199AIGvoOnaJnH9KeBq ShF1FFY2I4ThBle5GZNy rWbgEU9ejFEiAUofNm4i iOnsbMboZJ5pBSEn gbfaDTCbqS2kFYJogGYf vUruUZ8sTQFerrpiy171 DwBoTOE0EMNggGKmM9Hc kM3mSlAhOLYoIWDr I9MugHLzWIzeD188OXaf DpT9MQClohCwK9ZpYSEk kVgxRaR6a1R3Va2nWAWB ZWFyczwvdGQ+PHRk XHU8wTuuAOqvEEFxtI0s FQHxP1e7NwKjXpC5JLon X9FqPILepkdoQb10mH4u ZxWrDfX2QDtaD0Ih cfW6PBFunAHlVYkjKNY8 E64ya6Q5DJEzHLOjADF0 wAS5gG9gfQxtbcwqfBCt dDsgdmVydGljYWwt WJxuU430MHVmdHknWyTh bWFsZTwvdGQ+PHRkIHN0 eVifXKcsZILuoT6zMJLp Z8q4RhSyEgS6PBbj H5YdGFXusclcYe87tP3t BxIqXkK2KDnvO7BoijZ4 TJYhbNVqGSuwZLS8L02s d4D9NYKeDUPlAAG1 fZQ4aD9ntJzrxtgnsXGv dDsgdmVydGljYWwtYWxp F469BUWkjCvpMdablRY0 aWVudDwvdGQ+PC90 ms45R3QpFjqtBmc6MMCf DKC8kON6oC5kVVIpPTag q6C6tPS0J1XzwqQvkb2l f8juDHEmLYhaW16q oVRsi3W2LEVrwUB1YZFo vOckNiZdvV12Ksa+PGNv tHipq5SoIgjdw6zxw6tz fRu3EiGrYIDtysNs dPfgSXX5i3ZvZg42X24e IHdpZHRoPSIzMCUiIHZh tFnzif0fvT4jXf2+PGNv vFI2xVD7xT3cKpWc UsN9RSnwB740EmKdjQDh Dkamo2aua0wvmMc4GmUf MUCqggNcyCckIBK3v5Kr Br17M2OksNohl8Qf Qun8iu53sVGvv2C0mIL1 U5CkOIWqoucnyNMkkFzq PW8zRCMfsskuFXQcuM1v JHJuN9s6UcJnKaX4 QPnlF1UymeH9IQKypSNp XBYriWYHtD3gorogy5po dgcaAxFoDZWjOXg3RDi2 LWFsaWduOiBsZWZ0 SkK2MXI2dCBjlK9tgKci rgiuqO8fAqs+INv1z3la pCIqKK2unHQ4LY69LI86 fFRbj6B8hJT3I0Ui QVFpipdileexnQI6BWUe VCEkqV64Qp3mkZvdUd9i RUXhDRC5ZQDyrBZzW6Bi nK8oBwWnPMYmMFMy C4QrqQOkJFyvL928OPix JgR3VNKlllArB1SaDSMn vKunBrB1u6O6Hz3MFE52 IG37QB16jTYsk2U5 yLQ5X8PqCSRuyijypadl oNG4RUHvNTUuaJ54Vm5c yNcgEl1zMIRpYPJ5SQQo fLKyF6UvzR8qJlNm EEClFSQoM8XnnILgRYeo P120JAyzJmR5RFUrfhFr H6RgTVLftVljMqL5w5D5 Ds3NBx08HY64TT54 pTGqn0Y4qVA1K0HbIBKi jqbrlvgvpRB7TJJiBZHr yC66Dm9gzMdgTy4sBJOb VOT9HBCtdMAwN5Wg wE0uIlMyLXPnCIExO3Bh dIQoPDchL007YGiyJrT3 TERqmrQrP6BeJBQgyRqd QnW2b1G5We1IIXsp jzk5Y2OaDkcudDW+PC90 WWXwBY90bZMnlUNyv9ud kMh4MfNtVQYbRIT9vShk KLtxu2HxORHvB95a bGFw (more content not included)... Normal [facility] Consent for Treatmenton 07-20 Consent for Treatment [id number] Normal [facility] General Message Officeon General Message Office --- --- --- --- - -- --- --- --- --- From: Basilio, [employer] To: MYA MYLES Sent: 08/06/20 02:30:52 AM EDT Subject: Discharge Summary Ready to View A summary regarding your recent visit is available in the Documents section of your health record. Normal [facility] CBC w/Indiceson 08-05-2020 Erythrocyte distribution width (RBC) [Ratio] 15.1 % High 10.9-14.2 [facility] Comment on above: Performed By: #### 2 [id number], [id number], [id number] #### [facility] Laboratory [address] [place] [address] Hematocrit (Bld) [Volume fraction] 26.0 % Low 34.0-46.0 [facility] Comment on above: Performed By: #### 2 [id number], [id number], [id number] #### [facility] [address] [place] [address] Hemoglobin (Bld) [Mass/Vol] 8.6 g/dL Low 12.0-16.0 [facility] Comment on above: Performed By: #### 2 [id number], [id number], [id number] #### [facility] [address] [place] [address] MCH (RBC) [Entitic mass] 26.3 pg Low 27.0-34.0 [facility] Comment on above: Performed By: #### 2 [id number], [id number], [id number] #### [facility] [address] [place] [address] MCHC (RBC) [Mass/Vol] 32.9 g/dL Normal 31.4-36.0 [facility] Comment on above: Performed By: #### 2 [id number], [id number], [id number] #### [facility] [address] [place] [address] MCV (RBC) [Entitic vol] 79.7 fL Low 80.0-100.0 [facility] Comment on above: Performed By: #### 2 [id number], [id number], [id number] #### [facility] [address] [place] [address] Platelet mean volume (Bld) [Entitic vol] 8.0 fL Normal 6.4-10.8 [facility] Comment on above: Performed By: #### 2 [id number], [id number], [id number] #### [facility] [address] [place] [address] Platelets (Bld) [#/Vol] 259.0 E9/L Normal 150.0-500.0 [facility] Comment on above: Performed By: #### 2 [id number], [id number], [id number] #### [facility] [address] [place] [address] RBC (Bld) [#/Vol] 3.3 E12/L Low 4.3-5.9 [facility] Comment on above: Performed By: #### 2 [id number], [id number], [id number] #### [facility] [address] [place] [address] WBC corrected for nucl RBC Auto (Bld) [#/Vol] 10.2 E9/L Normal 4.0-11.0 [facility] Comment on above: Performed By: #### 2 [id number], [id number], [id number] #### [facility] [address] [place] [address] Discharge Instructionson Discharge Instructions [id number] Normal [facility] Inpatient Clinical Summaryon 08-05-2020 Inpatient Clinical Summary [address] [address] Clinical Summary Person Information Name: MYA MYLES Ifeoma/[facility] Age: 30 Years : 1990 Sex: Female PCP: Chao Blackwell III, DO Marital Status: Single Race: White Ethnicity: Non- or Language: Slovak Visit Id: Visit Reason: Speciality: Acuity: 1 PP Enc Type: Inpatient Med Service: Obstetrics Arrival: 08/04/2020 06:59:23 Discharge: 08/05/2020 17:20:00 Dispo Type: Home (Routine DC) Address: [address] [place] [address] [address] [id number] Provider Notes: Diagnosis: Depression during ; Obesity [...] Follow up: With: Address: When: Sukhdeep Schaffer [address] [place] [address], [facility], [place] [id number] Business (1) Within 6 weeks Comments: Call Dr if fever>100.5 F, heavy bleeding Call for any problems. Nothing in the vagina for 6 weeks Type Location Start Finish [facility] 09/15/2020 9:00 AM 09/15/2020 9:15 AM Confirmed Patient Education Information: ibuprofen 600 mg Tab Normal [facility] Inpatient Patient Summaryon 08-05-2020 Inpatient Patient Summary [address] [address] Patient Discharge Instructions PERSON INFORMATION Name: MYA MYLES Date of : 1990 Current Date: 08/05/2020 18:16:41 PHYSICIANS Admitting Physician: Funmilayo ESCOBEDO MD Primary Care Physician: Chao Blackwell III, DO PCP Comment: Discharge Diagnosis: Depression during ; Obesity complicating , third trimester; Supervision of high risk in third trimester Condition at Discharge: Stable MYLES MYA L has been given the following [...] None Follow up: With: Address: When: Sukhdeep Valeroten [address] [place] [id number] Business (1) Within 6 weeks Comments: Call Dr if fever>100.5 F, heavy bleeding Call for any problems. Nothing in the vagina for 6 weeks In the event that this physician does not participate in your insurance network, please consult with your insurance company to find a nearby participating provider. Type Location Start Finish [facility] 09/15/2020 9:00 AM 09/15/2020 9:15 AM Confirmed Comment: JUSTINO Burton VANESSA L, have received the attached patient education materials/instructio ns and have verbalized understanding. Patient Signature Date Clinican/Nurse Signature Date MEDICATION LIST New Medications [id number], [address], [place] [id number], [phone] ibuprofen (ibuprofen 600 mg Tab) 1 Tablets By Mouth every 6 hours. Refills: 0. Last Dose: Next Dose: Medications to Continue with No Changes Other Medications multivitamin, ( Multivitamins) 1 Tablets By Mouth every day. Last Dose: Next Dose: Pharmacy Information: [facility] PATIENT EDUCATION INFORMATION Instructions: Medication Leaflets: ibuprofen [...] (more content not included)... Normal [facility] ABO/Rhon 08-04-2020 ABO/Rh Positive Invalid Interpretation Code [facility] Comment on above: Performed By: #### 1 [id number], [id number], [id number], [id number] ####[address] [place] [address] ABO/Rh History Checkon 08-04 ABO/Rh History Check Verified Hx Blood Type Normal [facility] Comment on above: Performed By: #### 1 [id number], [id number], [id number], [id number] ####[address] [place] [address] ABSCon 08-04-2020 ABSC Gel Interp Negative Normal [facility] Comment on above: Performed By: #### 1 [id number], [id number], [id number], [id number] ####[address] [place] [address] Blood Bank ID#on 08-04-2020 BBID# [id number] Invalid Interpretation Code [facility] Comment on above: Performed By: #### 1 [id number], [id number], [id number] ####[facility] [address] [place] [address] CBC w/Indiceson 08-04-2020 Erythrocyte distribution width (RBC) [Ratio] 14.8 % High 10.9-14.2 [facility] Comment on above: Performed By: #### 2 [id number] #### [facility] Laboratory [address] [place] [address] Hematocrit (Bld) [Volume fraction] 31.7 % Low 34.0-46.0 [facility] Comment on above: Performed By: #### 2 [id number] #### [facility] [address] [place] [address] Hemoglobin (Bld) [Mass/Vol] 10.2 g/dL Low 12.0-16.0 [facility] Comment on above: Performed By: #### 2 592860 #### [facility] [address] [place] [address] MCH (RBC) [Entitic mass] 25.6 pg Low 27.0-34.0 [facility] Comment on above: Performed By: #### 2 137291 #### [facility] [address] [place] [address] MCHC (RBC) [Mass/Vol] 32.1 g/dL Normal 31.4-36.0 [facility] Comment on above: Performed By: #### 2 077373 #### [facility] Laboratory [address] [place] [address] MCV (RBC) [Entitic vol] 79.7 fL Low 80.0-100.0 [facility] Comment on above: Performed By: #### 2 736041 #### [facility] Laboratory [address] [place] [address] Platelet mean volume (Bld) [Entitic vol] 8.3 fL Normal 6.4-10.8 [facility] Comment on above: Performed By: #### 2 500123 #### [facility] [address] [place] [address] Platelets (Bld) [#/Vol] 341.0 E9/L Normal 150.0-500.0 [facility] Comment on above: Performed By: #### 2 479590 #### [facility] [address] [place] [address] RBC (Bld) [#/Vol] 4.0 E12/L Low 4.3-5.9 [facility] Comment on above: Performed By: #### 2 727716 #### [facility] Laboratory [address] [place] [address] WBC corrected for nucl RBC Auto (Bld) [#/Vol] 8.2 E9/L Normal 4.0-11.0 [facility] Comment on above: Performed By: #### 2 883184 #### [facility] Laboratory [address] [place] [address] Consent for Procedure/Surger yon 08-04-2020 Consent for Procedure/Surgery [id number] 9#1.00CD:127 Normal [facility] Consent for Procedure/Surgery [id number] 3#1.00CD:127 Normal [facility] Consent for Procedure/Surgery [id number] 5#1.00CD:127 Normal [facility] Consent for Treatmenton 07-19 Consent for Treatment [id number] 2#1.00CD:127 Normal [facility] Consent for Treatment [id number] 9#1.00CD:127 Normal [facility] Delivery Summaryon Delivery Summary [...] Stable. Maternal condition: Stable. Funmilayo Escobedo MD [facility] Comment on above: Result Comment: Elec tronically Signed By: Funmilayo ESCOBEDO MD\.br\Date and Time Signed: 08/04/20 15:29 EDT Discharge Instructionson Discharge Instructions [id number] 9#1.00CD:127 [facility] Help Me Grow Referralon 07-19 Help Me Grow Referral [id number] 4#1.00CD:127 [facility] Progress Note-Physicianon Progress Note-Physician Patient: MYA MYLES Age: 30 years Sex: Female : 1990 Associated Diagnoses: None Author: Kevin Haley Jr., DO Postoperative Information Post Operative Note: Day 2. Anesthetic utilized: Regional: Epidural. Health Status Allergies: Allergic Reactions (Selected) No Known Allergies Problem list: All Problems labor / Patient Care / Confirmed Ovarian cyst / SNOMED CT 995614782 / Confirmed Attention deficit hyperactivity disorder / SNOMED CT 2676560221 / Confirmed Obesity / ICD-9-CM 278.00 / Possible Obesity complicating , third trimester / SNOMED CT 1084939742 / Confirmed Depression during / SNOMED CT 5976782108 / Confirmed Insomnia / SNOMED CT 379528266 / Confirmed / SNOMED CT 955880316 / Confirmed Supervision of high risk in third trimester / SNOMED CT 67607887 / Confirmed Chronic fatigue syndrome / SNOMED CT 65659742 / Confirmed Resolved: / SNOMED CT 686826908 Resolved: / SNOMED CT 359271898 Canceled: Obesity complicating , first trimester / SNOMED CT 2066527821 Canceled: Obesity complicating , second trimester / SNOMED CT 9012048277 Canceled: Supervision of high risk in first trimester / SNOMED CT 67024757 Canceled: Supervision of high risk in second trimester / SNOMED CT 47668749 Physical Examination General: Alert and oriented, No acute distress. Neurologic: Normal sensory, Normal motor function, No focal deficits. Review / Management Result Review Condition: Stable. Assessment Anesthetic outcome No post-epidural complications noted.. Plan Transfer/ Discharge: Condition stable. Normal [facility] Comment on above: Result [...] / Confirmed Ovarian cyst / SNOMED CT 556052989 / Confirmed Attention deficit hyperactivity disorder / SNOMED CT 9857830214 / Confirmed Obesity / ICD-9-CM 278.00 / Possible Obesity complicating , third trimester / SNOMED CT 5433437886 / Confirmed Depression during / SNOMED CT 9696036699 / Confirmed Insomnia / SNOMED CT 835640062 / Confirmed / SNOMED CT 927889497 / Confirmed Supervision of high risk in third trimester / SNOMED CT 02795280 / Confirmed Chronic fatigue syndrome / SNOMED CT 31995669 / Confirmed Resolved: / SNOMED CT 802859875 Resolved: / SNOMED CT 050206980 Canceled: Obesity complicating , first trimester / SNOMED CT 5772408844 Canceled: Obesity complicating , second trimester / SNOMED CT 8147848312 Canceled: Supervision of high risk in first trimester / SNOMED CT 04737668 Canceled: Supervision of high risk in second trimester / SNOMED CT 86439850 Review of Systems Respiratory: Negative. Cardiovascular: Negative. [...] was started at 0942. Normal [facility] Comment on above: Result Comment: Elec tronically Signed By: Kevin Haley Jr., DO\.rosey\Date and Time Signed: 08/04/20 10:50 EDT UA With Cult Reflexon 2020 Bilirubin Ql (U) Negative Normal Negative [facility] Comment on above: Order Comment: Urina ry Catheter Insertion triggered Urinalysis With Culture Reflex order by discern. Performed By: #### 2 033303, [id number], [id number] #### [facility] Laboratory [address] [place] [address] Clarity (U) CLEAR Normal Clear [facility] Comment on above: Order Comment: Urina ry Catheter Insertion triggered Urinalysis With Culture Reflex order by idalia. Performed By: #### 2 862686, [id number], [id number] #### [facility] Laboratory [address] [place] [address] Color (U) YELLOW Normal Yellow [facility] Comment on above: Order Comment: Urina ry Catheter Insertion triggered Urinalysis With Culture Reflex order by discern. Performed By: #### 2 861051, 5921059, [id number] #### [facility] Laboratory [address] [place] [address] Crystals LM Ql (Urine sed) Present Normal [facility] Comment on above: Order Comment: Urina ry Catheter Insertion triggered Urinalysis With Culture Reflex order by discern. Performed By: #### 2 594521, 9400555, [id number] #### [facility] Laboratory [address] [place] [address] Epithelial cells.squamous LM.HPF (Urine sed) [#/Area] 0-2 Normal 0-2 [facility] Comment on above: Order Comment: Urina ry Catheter Insertion triggered Urinalysis With Culture Reflex order by discern. Performed By: #### 2 401729, 0739929, [id number] #### [facility] [address] [place] [address] Glucose Test strip (U) [Mass/Vol] Negative Normal Negative [facility] Comment on above: Order Comment: Urina ry Catheter Insertion triggered Urinalysis With Culture Reflex order by discern. Performed By: #### 2 335287, 5453696, [id number] #### [facility] [address] [place] [address] Hemoglobin Ql (U) TRACE Abnormal Negative [facility] Comment on above: Order Comment: Urina ry Catheter Insertion triggered Urinalysis With Culture Reflex order by discern. Performed By: #### 2 709790, 3706442, [id number] #### [facility] [address] [place] [address] Ketones (U) [Mass/Vol] Negative Normal Negative [facility] Comment on above: Order Comment: Urina ry Catheter Insertion triggered Urinalysis With Culture Reflex order by discern. Performed By: #### 2 257628, 8380522, [id number] #### [facility] Laboratory [address] [place] [address] [place].plasma/[place]. RBC (Bld) [Mass ratio] 0-3 Normal 0-3 [facility] Comment on above: Order Comment: Urina ry Catheter Insertion triggered Urinalysis With Culture Reflex order by discern. Performed By: #### 2 041486, 1053214, [id number] #### [facility] [address] [place] [address] Mucus Ql (Urine sed) TRACE Normal Fish [facility] Comment on above: Order Comment: Urina ry Catheter Insertion triggered Urinalysis With Culture Reflex order by discern. Performed By: #### 2 682224, 2214552, [id number] #### [facility] [address] [place] [address] Nitrite Ql (U) Negative Normal Negative [facility] Comment on above: Order Comment: Urina ry Catheter Insertion triggered Urinalysis With Culture Reflex order by discern. Performed By: #### 2 542649, 9439479, [id number] #### [facility] [address] [place] [address] pH (U) 6.0 [pH] Invalid Interpretation Code 5.0-9.0 [facility] Comment on above: Order Comment: Urina ry Catheter Insertion triggered Urinalysis With Culture Reflex order by discern. Performed By: #### 2 162779, 0212581, [id number] #### [facility] [address] [place] [address] Protein (U) [Mass/Vol] Negative Normal Negative [facility] Comment on above: Order Comment: Urina ry Catheter Insertion triggered Urinalysis With Culture Reflex order by discern. Performed By: #### 2 533494, 5199072, [id number] #### [facility] [address] [place] [address] Specific gravity (U) [Rel density] 1.015 Invalid Interpretation Code 1.005-1.030 [facility] Comment on above: Order Comment: Urina ry Catheter Insertion triggered Urinalysis With Culture Reflex order by discern. Performed By: #### 2 547136, 2291525, [id number] #### [facility] [address] [place] [address] Type of Urine collection method Catheter Normal [facility] Comment on above: Order Comment: Urina ry Catheter Insertion triggered Urinalysis With Culture Reflex order by discern. Performed By: #### 2 546150, 3558702, [id number] #### [facility] [address] [place] [address] Urobilinogen Qn (U) 0.2 {Henny'U}/dL Normal 0.0-1.0 [facility] Comment on above: Order Comment: Urina ry Catheter Insertion triggered Urinalysis With Culture Reflex order by discern. Performed By: #### 2 730168, 8716857, [id number] #### [facility] [address] [place] [address] WBC Auto Ql (U) Negative Normal Negative [facility] Comment on above: Order Comment: Urina ry Catheter Insertion triggered Urinalysis With Culture Reflex order by discern. Performed By: #### 2 714338, 2442812, [id number] #### [facility] [address] [place] [address] WBC LM.HPF (Urine sed) [#/Area] 0-5 Normal 0-5 [facility] Comment on above: Order Comment: Urina ry Catheter Insertion triggered Urinalysis With Culture Reflex order by discern. Performed By: #### 2 092009, 2069094, [id number] #### [facility] [address] [place] [address] Vaccinationson 08-04-2020 Vaccinations [id number] 0#1.00CD:127 Normal [facility] Coding Summary.on 08-03-2020 Coding Summary. CD:[id number]:[id number] Gh0bWw+PGhlYWQ+PE1FV FOpM38uvSAaeG6FA6oZX J9MZFQJFNDVAN0CCM5rr ET0PMedC4WqmjMn NshqcOSpKW59DWc6OAN4 dYcoQPbgzT4boXXmU5c0 OuLoEI94mM55ILuaROAh JyY2JcDgchzslONf C8cgLvPwpSPcJlb+PHRh YmxlIHdpZHRoPScxMDAl LkZkbOnaGG8cVq5iYVUx LWNvbGxhcHNlOiBj v6xqEIHpBBrnAX7hsGjk L5DmuMF5XDIfs8u5If05 dHI+UIKcWCI4fXprNJkh x938OsYsf1saPZQ4 tTCrWKezGVF1L07nj2X7 DXIwPOTsJNU7uKU9kQ1b zKnukrwvP3CpwHKxFpC8 BAH2fXMydF0udCyd kxkahI3jQye+Y87KHH2H QMOADU8ZFzc1F8ZaHpek dHI+AY49RGRxBO43ePZj xEKde4hnvDv8UjXu VDZcHIQ6nIreOJpfk5Ht LNCyU97koGRbk4J7WBQj aPfikYJwSdTwcNU1uX2l MPjkvwzol8jugptr Hjsou9ejgs16eF24Y15l WTmrPXZwEMQ9OWShSFSr uPxhct6nqZ4cDk4+IDxj g3qjv0ukrNk7ZdPi WZSlvqFkgOxjUNW8k5Qq Oa08Q7BtaVcec5VkJcx8 ke36tJHak2D3hJS7TZps NRAenN1fZNojOqA1 NVWwUsIhzH56sJJwNBex Eh7vwOenpYrfLA2cJTFq uqhiLYSdcX6hCATixGBe uCksGS5qYHPjfpjx s629UqHaZZS1BDHyuSRn P7QxnG6cNrChCQGhEPLs Q4KgmGNzOEhjV004JBqq EuI0XTLccdAuZ7Vq TZTfmVpuGqA7c8O4Ra6I q5LibuepHXM9MZrlXAZ9 IbV8ToJyRmV9M4PkIds9 AIMwgZnsJW5aU0Ku DKUbrmkqlxzrqIL7BBWe MPPkfS00tZSgKEvjPb8w r6E5f162VINyDBCixV34 Qy1ulQjnBKTuqIUW tP5mkhecz9wazqneBzHn WQZpZKb0EMe8KIOrbLkw NgOhETI4InL9DAO2kIIp vS6trIuqjbtfgT9u Oyc+L27nhZ0bPDV2IPG7 quttYZOineJyLZ97KG67 J0PaAxxmoJDxmUO+PGRp ddPjeKdcJB1oByLs p0whp2YyRCjzG4XkDBUb UBetQrz0VJKeLBP8tIG2 pZ8rVPAcODqzv8I7rQH6 W4FxdvPyaf1gg7ge GUEuUCikP73rzPPvc2W4 VIKszRB4PCAqgQsaQkAv uV76Zqf+TEAytFfnv9Vf Miqwk4hpa8zbhDl7 IjMwJSIgdmFsaWduPSJ0 f5CuNd22N95hFVvrVPLu WBNzBLJjOWHqaDfxdx2j gL8yHw9+PGNvbCB3 uBJ9cD3kBTJpGuN3RPnw M613HuOofBQnRptrk3ue g7zquDx9AzQxRWNgdmMq xQvaESB8f7PfMy97 F27zWIxzJXZuLXBgCCGu AVNwlOallc5bbW0jUu2+ ZX2yh4wvan02eY26eDH+ GBPzREV7tKttIOen PRHvyD6qMQklEcW2WKKu ZqZqsS92sFTgQFqxAm5l vHasuFjuRG0jCKBfzgly r735PlGmc5ouUFEc cJVjSLycUMI6D46yi2V0 SKDiWCRjNWX8ySS7iF7a bGlnbjogbGVmdDsgdmVy fPcpTBeoTFpeM716 IHRvcDsnPlBhdGllbnQg HnYtOYp6H7KqPuk7WLTa iQhzVQ7nsDFuYUwdJs6r uKnrrMtfZA6uTVRv jtnqm557NaAek0cxDVFi pYEqAEmuTKU5V94oz3F5 VWUoFNBsNLB0zXK7yQ9p bGlnbjogbGVmdDsg wmEanGlwRVylZObkN529 IHRvcDsnPkJpcnRoIERh jGF1GY10LR41jCWtr9E5 zHZ5F1VvDEOepgcb lsjexSU9ZKTsHVLupJ22 Yq6ttJczSy5gXDEfNZS7 YZWdqGNuB4XktC3eRxJq XUJxTSChB9BqhJYn TDkeG764VHegRjN6MJYx yrBcT6LhAARtqRajOlT1 t5D0Cb6JM1O5ZV63CQ55 cZRjf2H2xPY8Q9Wp BELxctgbzhldzXO5VUEt YSHhtG17Nm1vnDrxUu9k YZHpGBW2MWSpoSIaC7Jp aJ6sUtQdDPPvLHTj W4JbhXYvMZnfI018SEuv ScC7BQPslqEgY0DiCVZr qPviVzE2s7U1In6WTXl7 OY79BX32rLUkw0H8 mBF0N4ChREStzlskbojt bVE4RVKrSNLrpQ49Ma0t rGguSv0hOJDlWGR5USBw xRHaF3DjpV8qCfVv EYLlMKQpT5OcbMGrNImo X994FYpuCgI6WTQbnyQq F0LqMCDsbHbdBtS4i8F8 Ws5TLJZhEG77ZWC0 mFV3UM90JU37Z7RpYrwf dGFibGU+PHRhYmxlIHdp ZHRoPScxMDAlJyBzdHls XU5jDh6yUZQsRZUw zRftqEFyGdAkt1yrRDNe KDqjDB9ifUitI6KxkJF8 XAQmc1o5Ql82S08oK6Tt dXA+MOBdyFC0tRI7 uK6jZkWoXpO9ISitF736 LzLycIEcPmmzq0mys8hz cCc7BiK9QVFhfgEzaMgv TOB0v8BhHm89X05h IHdpZHRoPSIxNSUiIHZh uCczzq7hcC9pTo3+PGNv gWG1aQM0sO5qMjCsTnV6 RIwnP534GjQxyXGk Rpcux3bkc6ukxXn2EjOr CJPuwdIxvJghLDV4b2Df Tt21Q4RzuOqck2LqWzd2 xt93rLCeg2Y5vCB4 D7ZyEALpedkruZLjaFkg TW9pXLAtnwazTNNywL8l JRFmI5r4KiHcMcM3FEzb C3LrojB6AFIuqBBy VNwcTVB2C77zh0J9SOWr SLUfDSU1fQE2mN0niVnr bjogbGVmdDsgdmVydGlj KMibXZnsX078IQDk zIwrICGraH3cHBJsgMBa tHmvNY0yGUKfvclaDkDV FxfHQg5wQSUVUpGKQ7Td TDwvdGQ+PHRkIHN0 bXiiVBtrINCylL0oBQQf M7z6TpHgTtG9PZaiN4Gi EQAxltkqDs05tP4zVkNs JiN7FFbnC1CxkbP8 TEFenYImAHufRBX4I61l y8F3FRPvSTPxQMF2wTV1 gB7qpDlqppkxsPOamJzl dmVydGljYWwtYWxp X564HSYvqVxcYdA5QbVj JxY1XLS8J1ZvKan7GJUx lShvRT6qcCTyBUhwCf1j nAsxkXvvMA1vOINa dpdeJCLacK1dUHRnhXTw bFnqHB6sWEJisgwfp868 HoJbPKB7KNWdhYSaV1Xf iD8xHeUqKLTnVXGz N4IbjSAiUXztU052AEuq WuY1HEDrisXbS2EuXYDy oRvsKxE6b4X3Wx4xXRHR ZWFyczwvdGQ+PHRk EYP1rFaoNSnwYKExcL8i RKLfX3k7HsQnSxV4CLxi J0EwXTHgwtmmUm28eZ3k KjSpZtJ3RCewK0Yu jjG3OQBgjQSaNJlsFXN1 W04yg2O1EPDbDOFtVLV1 lZF1tH4knZgbywereHDi dDsgdmVydGljYWwt CMchS676WPRjdWyjHzFn bWFsZTwvdGQ+PHRkIHN0 qWgcHEkoGQWrwE8iUTRi L7i4TiNxYhL1ZTgz Q0XwZONofseqAv33zS7d NzLeLmF2JYneE5FnysE0 GRSfyGYjPNxjNWV3N04s z1P4DFDaIUZbAUL0 fKI3bE1zwPcfyhyddYTr dDsgdmVydGljYWwtYWxp B887OAUcjLqaEq2MMZBb aWFnZTwvdGQ+PC90 hx71M2EqTvieDng0YGJq LIL2cTS1aN7tNXPxECid d6J5bZF9I6AfagJvlf6i j6hwDIVaQYavT82r zTEnw6E1RNMytPN6GDQx iQriLqVcaW10Cop+PGNv qWwtu1VsDezhb9aic9pj nGf2NhHqCUQpczHt vTbaPVS7k5QxXg25A50u IHdpZHRoPSIzMCUiIHZh lZmdxs6nmN8gGk3+PGNv oYE2aSS4iK0rTgMc WkL8TVbuF299RwXyyVLr Hsgpq3eiz8oyiOu8VbQg BHJzibNjvLyxZBD6q3Sp Nm80L8SflPbgh2Yh Xhp9kf13kUHda3Z2cAW3 E9QvYOPoopikmGPtdKzh TG5uBHVptdsnBPUizH1z ITEqV8n9AkEpLyE6 SBwjC3CnvkJ7MPHibYTy IYRmqHKUuA2spwxng2xb jbabCiDcCXGdSBn4SHv7 LWFsaWduOiBsZWZ0 QbC5ZCH7yZAdwS4tcRrd yjgilW3zSmj+GLo7p0dq sQXqPJ3rxXD1LU38DU85 sDIhl6Z1nYI5Y1Cn MXGpenxxyuevqAI5EFCc NQUmmA81Di7kqFmsYl2q QLBkPGO5SOCmaEIeH7Zn jO6zZwSaAUVtFZFo U3CcyDGbFRvjY884MCme XdN6VVRogqSfE8XsGFEu nAaxYdN1e3W9Yg6DEU77 HY04IP37dVCpj2I4 hJY3A1HtNKEzipqoiewq oDC6UKClLEEkmW25Fc5j oAozIi5sRWAyUZO9NIVs bRFtX2EhgF3cHpYi PDOhDFMyV0CafZKiDQwr S174TDrmBkL5JGVfrePx V4NvBYBpyBrpFwJ6f5W0 Cw2QZs10PZ70BX15 lXVva4A7xXF9L8JqMCBf vnitiwmfqUH4GLAzNUXi qC45Xe8wiCzmDd2jLUSo OOV3HTEukELjY6Av pD7hYyYmRCPjTVOfO7Cj dSImFZklF790EOlaOtC8 OOXgmxVzP9NpTXDftCqk WeG9j6I9Jg1WXUmp ayi5J0FqWbcbyYD+PC90 VAJxIU28zWSxxVHdt2nd gMf8TjXgUPCgEXV9uAha DNlpo4ZmSGNfP30a bGFw (more content not included)... Normal [facility] Ambulatory Clinical Summaryo n 08-02-2020 Ambulatory Clinical Summary {[id number]-fm-[id number]-[id number]- 09-9c-6a}CD:[id number] [facility] Insurance Correspondenceon 0 08-02-2020 Insurance Correspondence [id number] #1.00CD:127 [facility] Insurance Correspondence Off iceon 08-02-2020 Insurance Correspondence Office [id number] 1#1.00CD:127 [facility] Insurance Correspondence Office [id number] 1#1.00CD:127 [facility] Nursing Assessmenton 021 Nursing Assessment [id number] 4#1.00CD:127 [facility] Obstetrics Office/Clinic Not jasmine 08-02-2020 Obstetrics Office/Clinic Note Chief Complaint OB 38w 5d, baby moving, occ. [place], swelling bilat. feet, woke up with Migrain in middle of night Obstetric History History (1,0,0,2) # 1 Baby 1 Outcome Date: 2008 Outcome: Live Outcome or Result: Vaginal Gender: Female Gest Age: 41 weeks Wt: 3232 g [place] [facility] [place]: -- Child's Name: -- Baby's [...] trimester) Ordered: Office Visit Level 4 Est 64995 2. Obesity complicating , third trimester (O99.213: Obesity complicating , third trimester) Ordered: Office Visit Level 4 Est 67533 3. Depression during (O99.340: Other mental disorders complicating , unspecified trimester) Ordered: Office Visit Level 4 Est 42007 4. 38 weeks gestation of (Z3A.38: 38 weeks gestation of ) Ordered: Office Visit Level 4 Est 08868 TH Follow-up With When Contact Information Funmilayo ESCOBEDO MD In [address] [place] [address]- Additional Instructions: Problem List/Past Medical History Ongoing Attention deficit hyperactivity disorder Chronic fatigue syndrome Depression during Insomnia Obesity complicating , third trimester Ovarian cyst Supervision of high risk in third trimester Historical Medications Multivitamins, 1 tab(s), Oral, Daily Allergies No Known Allergies Social History Alcohol - Denies Alcohol Use, 11/21/2009 DENIES, 04/14/2020 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 2019 [employer] Normal [facility] Discharge Instructionson Discharge Instructions [id number] #1.00CD:127 Normal [facility] Inpatient Clinical Summaryon 07-31-2020 Inpatient Clinical Summary [place] [id number] Clinical Summary Person Information Name: MYA MYLES [facility] Age: 30 Years : 1990 Sex: Female PCP: Chao Blackwell III, DO Marital Status: Single Race: White Ethnicity: Non- or Language: Slovak Visit Id: Visit Reason: Speciality: Acuity: Obs Enc Type: OB Triage Med Service: Obstetrics Arrival: 07/30/2020 21:16:34 Discharge: 07/30/2020 22:58:00 Dispo Type: Home (Routine DC) Address: [address] [place] [address] [place] [id number] Provider Notes: Diagnosis: Problems Active Insomnia Chronic [...] Follow up: With: Address: When: Funmilayo ESCOBEDO [place], [place] [id number] XDx ([employer] In 3 days 08/02/2020 Comments: Keep scheduled [...] Type Location Start Finish State WH SOV [facility] 08/02/2020 4:30 PM 08/02/2020 4:45 PM Confirmed [facility] 09/15/2020 9:00 AM 09/15/2020 9:15 AM Confirmed Patient Education Information: Normal [facility] Inpatient Patient Summaryon 07-31-2020 Inpatient Patient Summary [address] [address] Patient Discharge Instructions PERSON INFORMATION Name: MYA [...] Follow up: With: Address: When: Funmilayo [place] [address] XDx ([employer] In 3 days 08/02/2020 Comments: Keep scheduled [...] provider. Type Location Start Finish State [facility] 08/02/2020 4:30 PM 08/02/2020 4:45 PM Confirmed [facility] 09/15/2020 9:00 AM 09/15/2020 9:15 AM [...] Leaflets: You may receive a survey from [employer] asking you to rate your care experience. Your feedback is important and will help us understand what we do well and how we can improve the quality of care we provide to you, your loved ones and our community. It?s an honor to serve you. Thank you for choosing [facility] Consent for Treatmenton 07-19 Consent for Treatment [phone] [id number] 0#1.00CD:127 Normal [facility] Consent for Treatment [phone] [id number] 8#1.00CD:127 Normal [facility] Insurance Correspondenceon 0 07-29-2020 Insurance Correspondence [id number] 41#1.00CD:127 Normal [facility] Insurance Correspondence Off ice07-29-2020 Insurance Correspondence Office [id number] 5#1.00CD:127 Normal [facility] Nursing Assessmenton 021 Nursing Assessment [id number] 1#1.00CD:127 Normal [facility] Ambulatory Clinical Summaryo n 07-28-2020 Ambulatory Clinical Summary {[id number]- [id number]-[id number]}CD:[id number] Normal [facility] Obstetrics Office/Clinic Not jasmine 07-28-2020 Obstetrics Office/Clinic Note Chief Complaint OB visit 38 weeks . Obstetric History History (1,0,0,2) # 1 Baby 1 Outcome Date: 2008 Outcome: Live Outcome or Result: Vaginal Gender: Female Gest Age: 41 weeks Wt: 3232 g [place] [facility]: -- Child's Name: -- Baby's [...] trimester) Ordered: Office Visit Level 3 Est 66507 2. Supervision of high risk in third trimester (O09.93: Supervision of high risk , unspecified, third trimester) Follow up in 1 wk. Ordered: Office Visit Level 3 Est 04455 TH 3. 38 weeks gestation of (Z3A.38: 38 weeks gestation of ) Ordered: Office Visit Level 3 Est 70399 Follow-up With When Contact Information [facility] In [address] [place] [address]- Additional Instructions: Problem List/Past Medical History Ongoing Attention deficit hyperactivity disorder Chronic fatigue syndrome Depression during Insomnia Obesity complicating , third trimester Ovarian cyst Supervision of high risk in third trimester Historical Medications Multivitamins, 1 tab(s), Oral, Daily Allergies No Known Allergies Social History Alcohol - Denies Alcohol Use, 11/21/2009 DENIES, 04/14/2020 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 ? 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 ? 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 Health and safety ? Rectal thermometer. ? [...] ? Consumer Product Safety Commission: www.cpsc.gov ? [employer] [employer]: www.healthychildren. org ? Safe [...] 01/17/2009 Document Revised: 01/17/2018 Document Reviewed: 12/25/2017 [employer] Patient Education ? 2019 [employer]. [facility] Coding Summary.on 07-27-2020 Coding Summary. CD:[id number] Gh0bWw+PGhlYWQ+PE1FV QQmV44akNRmsB1PR8rCG K8PFUVCFXYFNF1QFA3it XD7SNkiC6RkkoOv XazkrZNgJQ30IKd7YLB5 fZbdMFkykZ6uwMLsG0q7 CbQgJI12nQ39ZYquDWCd YsW5EmAvkogqaNXl F4kfEuQegZVdYnl+PHRh YmxlIHdpZHRoPScxMDAl FaHfzMwdZU8vDv9nRPWy LWNvbGxhcHNlOiBj z7efIHViDWvjDG4cxMfm A7WgaTA0TXTsm3h1Nr03 dHI+XIEjXOP7tPlkSHdf s992GlTlm0baYZK8 mMFcIEaxMDA9W49ik2J6 IYMdQTGkSYY2pHL6tX3e kAcnmnxnG1CbuGJaRrT6 KWB5zKChnT4pjFmm vamuvR6dUqb+X68LHM0V OIWYDQ7FZrj6O0NwLfqw dHI+EZ80BLRxIN83tTZt eQCwt2lhmCb3BbYi TAGxQPN9hHwjLAvnd4Ec TGSsP73eyJVdz1A4TZXx uUqynMWdDjKgcFH4xD0v DBsjshfkk3swuzds Cfoww8sigl28dI70I09k NSihORWrTUS3RXSkZJFe cAshcj6irP1xMp0+IDxj r5onq3yltMx2KoFp UZTtzdYwzHljQMP4f8Sh Hn30S7CheBpbt2IfIba2 qe01aDAvg1G5rEZ2BEua PUXhzX7nATuzKmO5 CTRrSuScwL66kSFvBDfd Se9yzGuqaIcpUJ8jMKKj sevzWKGliV5cSJSeqYTr xGcwNR7hUKJqcxwa n247NiAzBJK8DYSukGGh F6SkkE2tFvMhNSWlKVEj J6HjwLOwYBwfS952URjv KpC7PILersHiV9Vh IQOkpWhxMbV7z2P0An1K j1KpjuerAFI8HMcaODI5 NaM9KlVnChN3V5WeYci1 VUOzzEkzLL5tZ0Bs UFQjrmfroftshVQ6WYXz FMHimV22dKLdTHvpIo2x n1M1i214EWBiMHPfbO57 Ts0blXuaFTOstXAN mC5ppvftf0vumyglEcIv QHJfMIb1YJw8YGKpsJqr WdJmAPS2RkH6OCM9kERw zY8jpKmpaijsyY6y Oyc+T87ygV7zQSL5BNJ9 ucpyRWYcihVdML21JM04 T6JxHfhxwNFzhLS+PGRp txBbhAsnWO5yGsHb h7ctb3RfDBmhS2XeKTUm DCwxUqw3LQLuBVA3pVF9 hS2eHCQeLUfnx0N5iFS6 Z9NfldHbqw9ep7tm VRHqSCblW27qbVEyi4I9 BETgpMK2USXgmKcjSjDj fG45Bud+LFRyrQgbg8Si Xojax0kck3zjbQc3 IjMwJSIgdmFsaWduPSJ0 f0DwOv31H18xZYpzQSEy SCVeIYQpOJIroEofzu2l nS7lEm0+PGNvbCB3 aKQ0jF3aPHCmXsX7EEwi C342FoHoyIJzJsejs9zf r1rnkHs1DvKnFXHmugOz nOfeMNT3r0CrSr66 L01hRDvlAQTtMPTlLDQk DIIndHrenr8ozD5kVd2+ CO1hu2jtcs61dZ84gQK+ QZDuASF6qYwzBNdb PQCznE5cTDgsUhF3PBNj EwGkhF53eABoUQgzIg4y jSophQykUH2jQJZeadkr e008WzFje9woYMDj aBPjOAotZJT7N14jx3D2 NNEzARFdACI9jJF3wT1w bGlnbjogbGVmdDsgdmVy eZpzVXtnLUdnJ690 IHRvcDsnPlBhdGllbnQg TsBpFWk0P6ItZcp1MFAi hGrlAA1zrVXdVBjvAr2h bVofiNqpKJ2pYIXv kfejq249SmFtu9ayWNKf fCToTXjpVHZ5T45oe6X0 DUNjKTTpETN9lLU1dF6z bGlnbjogbGVmdDsg fgVtpDqnTMlxLZfsD687 IHRvcDsnPkJpcnRoIERh bKQ2RL45HS13fEChv9A3 bCS6E7OvJNLzunsy vazzdMU8IVYgQQCyjH32 Uw7heEwcLb6kGLCnVJB4 BPRzhQFtC6ImkZ3xMgDx APCuVNAtA9VxeEAz LTijP787QYxhNfY4WUKj apRfM4UsNKGcqLwrUwV9 v4O4Kc0QO1P5IV30LD87 dUDyg6N2nEM2A7Ma PCXpkzybfytzaUF3FTTs FPChpI11Qq1bhKlbUk5o NNKpDHM8ENKksYWpK2Ti xG6pQpMhRQCzPLOg X8DnoSUfKMfqL419ZMhc RmT3KXTyvxOsH5QbLGHb yHmgGhM2z7I6Jj5OGLl0 DQ73JU11bQIhk0J7 eOV9Z2EpCVPfnehgfoba uVK9QKChSNVodE16Ng5q oVhuEg9pQDLgSQP0EONa pWPlV9NcqB1dCyNy CURpQYMiU7XmsOKtJCxg N870IEutReL1XDEjjlHe E8YvNLNquGeqZsF1b5K8 Wo9SYQIwWY09ZQH1 fVX4VH24XK07Y3RiKzgg dGFibGU+PHRhYmxlIHdp ZHRoPScxMDAlJyBzdHls BW3oGp0bGYPpGAFp tMzogPQwRvZwh1blSOXc IRrfZM1znNacG8FsiZU5 GGZgh8g6Lf20H68aE3Au dXA+JXWhbYY8wSJ1 pB2hUhUcIsH6XEazD635 BaAlgIDgIfxge3cti7kj zVt3CtU6OYNpugRfuOwm VQX5o2YqCz55D81v IHdpZHRoPSIxNSUiIHZh lFujzu2eiR4pNe5+PGNv xDG2hML8vT1qBjZlWjD8 MNwbU883BdDmqFKb Vipoy2sfr5eycZr5TgMn ZFXdumPmvVjfTJW8h3Rc Ws68L6VavDnjc9YdFou9 mt31pBNch1Y3lZJ8 I7OmKONrdpobsQQbmBej SA0zNWCwxyfmDVIgvD3f AVLnC8m9VzAhNiV0KBhb N2ShqkA6QTRybVUh KQhyCIU1B53na5L5GQMc SADtOWF5uIJ1mF6saPom bjogbGVmdDsgdmVydGlj OBewVSoqZ726PBTn lDofBRObbG0wDALyfQNb lOinMA8gQLUrwmzmNfNS RevHZp7xLNLZKvPKU4Ea TDwvdGQ+PHRkIHN0 lQkaOZupQNAvoX8wJIHw B8a6YePpUlT7SLnjW6Sq CVJsizokAp10gV3oEyRt DeS2KVwqT4YsgdK4 AKYutMVhSJxtRAI8R22t h5C7ZBHoGSYcKAV4oZN1 zN8mfBvwlemmfFZdzRdk dmVydGljYWwtYWxp V112CKSodNbzRdT1JlEk EfR0HAU7C4ZbPrb0DWMd vDwuGF4egDXsQOupHn2y hMqbqTrdRV0nYMFa ytadCOXcnI5iYJTrfEUu hBnvSH0bLQWqrwgxt771 DtGoCAB2HDRcwBAlD0Ep iW8tAbDbKKHyIEXp M9NbtNLuOZdnC871QTuh TkN4KSRbndXkH6CvUCCc oPzgHnL9n8E1Rh8aDVRR ZWFyczwvdGQ+PHRk IZT6wMszQHuqPZMnjF4v JGGlI8t2KtSbEnC9JXmx J3KeWYQttjbsZk73dT3i LwRoOyA6GTefY3Ja nwN0BPNamBKnFUfcITQ9 H62al1P7FOZuHZAeELB7 rCI4gC6uuCfbuhyhwLOn dDsgdmVydGljYWwt IHegI822UZLrrJejYoSq bWFsZTwvdGQ+PHRkIHN0 xFmyDHdtBCPwpE6kOAWh H0i2EdMjLeV1BUin N8FoKIMaufnoSw62zH2k DfZfErS0XKknN7YtmfE0 ZTRmwNBuERbeHHE7H60z a7Q9TEIbUSHbZFQ7 cZG8iV6vhVyeekzodBIi dDsgdmVydGljYWwtYWxp C927MJTzqDcvHp4SPDRy aWFnZTwvdGQ+PC90 jx61F5ScTbaaYnd7VKTq OGD9aAN1vQ6bDYGgJPve t8K7zFP4A1GaexElay0v y4dlVIAuUEipG44r kTVip1T2VCXxwJO0LLHx jSdeOpQcwJ32Bke+PGNv yIhck7XvNkcvj4wsd2fw vCg5SnEaYQKnhhEb hIrfRYF3o1UrTo03X29q IHdpZHRoPSIzMCUiIHZh qKdisg6rkH4bTi3+PGNv rHL7fVP9iB7bDcSn VmN8CLrjY057VbSreBHy Kivro8tmf3ophYn1TrXb RESjhvZprSbuDMK1d3Zc Gr03G7DtaLntn2Gl Rwe3ov66fRFjv5W9oMQ5 Q5KwBIVhkwpwyXBrkDwc EU6kZTCywujzOYYzhV8w JHUuA9l6LcFzYyM4 NOieX7NttwR1UWVscEPp TFXjuYGZgK5xyflsb5wy mmayNpYlTAVdRGt1XTw3 LWFsaWduOiBsZWZ0 QiH3RWG4xDKqmC3nbCmq qianwZ2gUmf+ADq9v9nq oNYrTE0gkBB8AE15RT49 lIWju4U5pYS9J6Rt TSRxmziyvscqrID6SSXg FHAoxD02Kx5faQqhHr4f LIIyYOL4JVArdOSrQ2Jd jZ3gLvOmQAFzEIZa V2GeqPIdALwdB700SOli HqQ0GUVjchRoQ3IdBVAw cAybBcW5p5F8Pt9ZHZ43 AE40TH75sTQzb0Y7 cMV6L6WbOZFenzoogehq jNO3JIMaVJXmgU87El4l sMydQa0zACGsQEO1TYTh nYFbY5HtzY0bDkFy CUIqSWLyG8EokJStTDwg E279HFkrXnU3KNMlaiCs R1InRPSgeAwbCkG4o8U5 Mr2POw40OS08XG15 aPKic4R6yKU8M7SvCEYe lovlwqnnjLN5MLKtTTXr nH10Gp0obBmvUg0rXJBe DJB4UKAzhXRvL1Dx oS0lLdRnTDXlEIDyR6Ik iBOlIGqcM105ROioCnK3 FRErajZeZ8VyCHPfaNra FdH8z9Q1Uz1LPTkt idl9C7MmYaqphBI+PC90 FQMxYE24kCUicPPaj8xd oQk5PjMqLSKvKIR3rZds KTgsh3LcJYSrC05p bGFw (more content not included)... Normal [facility] Consent for Treatmenton Consent for Treatment [id number] #1.00CD:127 Normal [facility] Discharge Instructionson Discharge Instructions [id number]#1.00CD:127 Normal [facility] Comment on above: Other Comment: incco rrect title Discharge Instructions [id number]#1.00CD:127 Normal [facility] Inpatient Clinical Summaryon 07-26-2020 Inpatient Clinical Summary [address] [address] Clinical Summary Person Information Name: MYA MYLES [place] Age: 30 Years : 1990 Sex: Female PCP: Chao Blackwell III, DO Marital Status: Single Race: White Ethnicity: Non- or Language: Slovak Visit Id: Visit Reason: CONTRACTIONS Speciality: Acuity: Enc Type: OB Triage Med Service: Obstetrics Arrival: 07/26/2020 14:59:40 Discharge: 07/26/2020 16:40:00 Dispo Type: Home ([facility]) Address: [address] [place] [address] [address] [place] [id number] Provider Notes: Diagnosis: Problems Active Insomnia Chronic [...] Follow up: With: Address: When: Funmilayo ESCOBEDO [employer] [place] [id number] Business (1) Within 1 week Comments: Call for any problems. Call for fever > 100.5 F Return for contractions closer, longer, and harder Return for decreased movement Return if ruptured membranes or vaginal bleeding Type Location Start Finish State [facility] 07/27/2020 2:45 PM 07/27/2020 3:00 PM Confirmed WH [facility] 08/02/2020 4:30 PM 08/02/2020 4:45 PM Confirmed WH [facility] 09/15/2020 9:00 AM 09/15/2020 9:15 AM Confirmed Patient Education Information: Normal [facility] Inpatient Patient Summaryon 07-26-2020 Inpatient Patient Summary [address] [address] Patient Discharge Instructions PERSON INFORMATION Name: JUSTINO MYA Cintron Date of : 1990 Current Date: 07/26/2020 19:27:26 PHYSICIANS Admitting Physician: Funmilayo ESCOBEDO MD Primary Care Physician: Chao Blackwell III, DO PCP Comment: Discharge Diagnosis: Condition at Discharge: Stable JUSTINO MYA Abdulaziz has been given the following [...] Address: When: Funmilayo ESCOBEDO [address] [place] [address] [employer]Dx ([employer] Within 1 week Comments: Call for any problems. Call for fever > 100.5 F Return for contractions closer, longer, and harder Return for decreased movement Return if ruptured membranes or vaginal bleeding In the event that this physician does not participate in your insurance network, please consult with your insurance company to find a nearby participating provider. Type Location Start Finish State [facility] 07/27/2020 2:45 PM 07/27/2020 3:00 PM Confirmed [facility] 08/02/2020 4:30 PM 08/02/2020 4:45 PM Confirmed [facility] 09/15/2020 9:00 AM 09/15/2020 9:15 AM [...] Leaflets: You may receive a survey from [employer] asking you to rate your care experience. Your feedback is important and will help us understand what we do well and how we can improve the quality of care we provide to you, your loved ones and our community. It?s an honor to serve you. Thank you for choosing [facility] Normal [facility] UA With Cult Reflexon 2020 Bacteria LM Ql (Urine sed) TRACE Normal Trace [facility] Comment on above: Performed By: #### 2 141646, [id number], [id number] #### [facility] Laboratory [address] [place] [address] Bilirubin Ql (U) Negative Normal Negative [facility] Comment on above: Performed By: #### 2 202320, [id number], [id number] #### [facility] Laboratory [address] [place] [address] Clarity (U) CLEAR Normal Clear [facility] Comment on above: Performed By: #### 2 769870, 7791669, [id number] #### [facility] Laboratory [address] [place] [address] Color (U) YELLOW Normal Yellow [facility] Comment on above: Performed By: #### 2 120807, [id number], [id number] #### [facility] Laboratory [address] [place] [address] Epithelial cells.squamous LM.HPF (Urine sed) [#/Area] 5-8 Normal 0-2 [facility] Comment on above: Performed By: #### 2 631606, 8251945, [id number] #### [facility] Laboratory [address] [place] [id number] Glucose Test strip (U) [Mass/Vol] Negative Normal Negative [facility] Comment on above: Performed By: #### 2 940316, 4242358, [id number] #### [facility] Laboratory [address] [place] [address] Hemoglobin Ql (U) TRACE Abnormal Negative [facility] Comment on above: Performed By: #### 2 611568, 4508311, [id number] #### [facility] Laboratory [address] [place] [address] Ketones (U) [Mass/Vol] TRACE Abnormal Negative [facility] Comment on above: Performed By: #### 2 230236, 9526569, [id number] #### [facility] Laboratory [address] [place] [address] [place]plasma/[place]. RBC (Bld) [Mass ratio] 0-3 Normal 0-3 [facility] Comment on above: Performed By: #### 2 385456, 7445319, [id number] #### [facility] Laboratory [address] [place] [address] Nitrite Ql (U) Negative Normal Negative [facility] Comment on above: Performed By: #### 2 348885, 7823936, [id number] #### [facility] [address] [place] [address] pH (U) 6.0 [pH] Invalid Interpretation Code 5.0-9.0 [facility] Comment on above: Performed By: #### 2 283081, 7173975, [id number] #### [facility] Laboratory [address] [place] [address] Protein (U) [Mass/Vol] Negative Normal Negative [facility] Comment on above: Performed By: #### 2 367251, 4233641, [id number] #### [facility] [address] [place] [address] Specific gravity (U) [Rel density] 1.020 Invalid Interpretation Code 1.005-1.030 [facility] Comment on above: Performed By: #### 2 459170, 2145140, [id number] #### [facility] Laboratory [address] [place] [address] Type of Urine collection method Clean Catch Normal [facility] Comment on above: Performed By: #### 2 422547, 9933550, [id number] #### [facility] [address] [place] [address] Urobilinogen Qn (U) 0.2 {Henny'U}/dL Normal 0.0-1.0 [facility] Comment on above: Performed By: #### 2 671242, 5210511, [id number] #### [facility] [address] [place] [address] WBC Auto Ql (U) TRACE Abnormal Negative [facility] Comment on above: Performed By: #### 2 791966, 5094193, [id number] #### [facility] [address] [place] [address] WBC LM.HPF (Urine sed) [#/Area] 0-5 Normal 0-5 [facility] Comment on above: Performed By: #### 2 688361, 5966895, [id number] #### [facility] [address] [place] [address] Yeast LM Ql (Urine sed) TRACE Normal F [facility] Comment on above: Performed By: #### 2 218898, 8021166, [id number] #### [facility] Laboratory [address] [place] [address] [place]enton 07-22-2020 Consent [id number] #1.00CD:127 Normal [facility] Consent for Procedure/Surger yon 07-22-2020 Consent for Procedure/Surgery [id number] #1.00CD:127 Normal [facility] US Follow Upon US [...] Conn MD, V. Transcribed by: ERMELINDA Technologist: ADNE Technical Comments CLIFFORD 08/11/20 CLIFFORD Obtained CLIFFORD by US GA 37w 1d History 3 Para 2 Transabdominal Ultrasound Performed Placenta Location posterior Placenta Grade 2 Positioning Vertex Amniotic Fluid Volume Normal Normal [facility] Ambulatory Clinical Summaryo n 07-21-2020 Ambulatory Clinical Summary {[id number]}CD:[id number] Normal [facility] Ambulatory Clinical Summary {[id number]}CD:[id number] Normal [facility] Obstetrics Office/Clinic Not jasmine 07-21-2020 Obstetrics Office/Clinic Note Chief Complaint OB 37w, baby moving, swelling fingers and feet goes down with rest and elevating them Obstetric History History (1,0,0,2) # 1 Baby 1 Outcome Date: 2008 Outcome: Live Outcome or Result: Vaginal Gender: Female Gest Age: 41 weeks Wt: 3232 g [place] [facility] [place]: -- Child's Name: -- Baby's [...] trimester) Ordered: Office Visit Level 4 Est 25358 TH 2. Obesity complicating , third trimester (O99.213: Obesity complicating , third trimester) Ordered: Office Visit Level 4 Est 89835 TH 3. Depression during (O99.340: Other mental disorders complicating , unspecified trimester) Ordered: Office Visit Level 4 Est 71767 4. 37 weeks gestation of (Z3A.37: 37 weeks gestation of ) Ordered: Office Visit Level 4 Est 24911 Orders: metronidazole, 500 mg = 1 tab(s), Oral, q12hr, X 7 day(s), # 14 tab(s), Refills(s) 0, Pharmacy: [id number], 158, cm, 07/07/20 20:05:00 EDT, Height/Length Dosing, 88.3, kg, 07/14/20 16:41:00 EDT, Weight Dosing Follow-up With When Contact Information Funmilayo ESCOBEDO MD In [address] [place] [address]- Additional Instructions: Problem List/Past Medical [...] Dipstick: Negative (07/21/20 16:41:00) Normal [facility] Comment on above: Result Comment: Elec tronically Signed By: LAURA MACEDO, Funmil[employer]o [employer]\Date and Time Signed: 07/21/20 17:39 EDT Patient [...] 05/13/2008 Document Revised: 07/07/2019 Document Reviewed: 07/07/2019 [employer] Patient Education ? 2019 [employer] Normal [facility] Provider Letteron 07-21-2020 Provider Letter July 21, 2020 To Whom It May Concern, Mya Myles is scheduled to be induced on 08/04/20. [facility] [address] [place] [address] Normal [facility] Ambulatory Clinical Summaryo n 07-14-2020 Ambulatory Clinical Summary {[id number]}CD:[id number] Normal [facility] Obstetrics Office/Clinic Not jasmine 07-14-2020 [...] Age: 41 weeks Wt: 3232 g [place] [facility] [place] Labor: -- Child's Name: -- Baby's [...] Test Q0114 Office Visit Level 4 Est 06916 NC 2. Obesity complicating , third trimester (O99.213: Obesity complicating , third trimester) Ordered: Fern Test Q0114 Office Visit Level 4 Est 38912 NC 3. Depression during (O99.340: Other mental disorders complicating , unspecified trimester) Ordered: Fern Test Q0114 Office Visit Level 4 Est 08072 NC 4. 36 weeks gestation of (Z3A.36: 36 weeks gestation of ) Ordered: Fern Test Q0114 Office Visit Level 4 Est 65123 NC 5. Bacterial vaginosis (N76.0: Acute vaginitis) Ordered: Fern Test Q0114 Office Visit Level 4 Est 46548 NC Orders: metronidazole, 500 mg = 1 tab(s), Oral, q12hr, X 7 day(s), # 14 tab(s), Refills(s) 0, Pharmacy: [facility][id number], 158, cm, 07/07/20 20:05:00 EDT, Height/Length Dosing, 88.3, kg, 07/14/20 16:41:00 EDT, Weight Dosing Follow-up With When Contact Information Funmilayo ESCOBEDO MD In 1 week [address] [place] [address]- Additional Instructions: Funmilayo ESCOBEDO MD In 1 week [address] [facility] [place] [address]- Additional Instructions: Problem List/Past Medical History Ongoing [...] (more content not included)... Normal [facility] Comment on above: Result [...] 05/13/2008 Document Revised: 07/07/2019 Document Reviewed: 07/07/2019 [employer] Patient Education ? 2019 [employer] [facility] Coding Summary.on 07-12-2020 Coding Summary. CD:[id number] Gh0bWw+PGhlYWQ+PE1FV GMaW23dtAMczO3EZ9hLN A9NKBXTRUKZFI8AMS5xk PL8FQszB8CdxnIx UaxdbBBzXQ05UQj4MCF7 uIuhSQxpyW9hvMTxI0z9 BsHvKG58oN26IHiiDRWd XaQ4AqWrxozwwPTg K2ekQxFdyXYzLqn+PHRh YmxlIHdpZHRoPScxMDAl NbUysGnrGH3mSn4oRSEn LWNvbGxhcHNlOiBj m1dbFXPcPWtzTK7ceBpw F4UpxQO0ZDGbl5y0Nl34 dHI+OCVtIBY5gPwnIWxs b348QcAqi4ofXHA9 tEUmOUdwJYZ3X73vw3J9 PEWpQUFtLQZ6iEM6hF3g nJvpczwmO2PznGCqVwV7 GJW3cEJcxN1pyAzq hrjbfB3ePgm+E00EAM8T DYZYAN4IHwb7X8HrUtkl dHI+OK73BQQgFN24rXIj sPGuk2koyAn5HqBz RBVtLWJ4vXfzOQhcz4Ck RBSrV77xfHDrp4J3NBSn vEgxuUEaIbPxhLA7gX5f YQusybfmy2cnqeps Tnbza5phek92tT07Z05c YCsjYMAlLGX5YRBvHNQs zFvjfv6lrA4nQz0+IDxj n1aji3pbzQq7EtWh AAWiufXalZmbAFN8f7Tv Ic22E4QwtSbtw4IhVzz3 yt36nIWkc9D7kAH6ZEeh CFNtcN4zZBmcUtL7 XUAoBkFaqA14aIBwWGul Hy2koVzdkUmyQR6iRUJp wlkoXEZalM2kAJNqdPDz pZfjMA1lQOVjazes r459NjLmZPX2JMRljLMv T2GwbD1pBqSiHMOjAFPh B1MfmAFnLQxqG831WWxl XsS9TDBsdxNcH5Uh JVKlhSskSxC3a1Y4Le2D h6GfcvviLHP4GEzwPAV0 EiI2MyVvMgV5V5NkYdy4 MLZnbIqeNB8bC8Gw MVPykgwetfcixRU2LQGd SXFgpY47iENdHQbuCi0k s8K5c685VODvTJNccD93 Gf5orBawLUWaoGLH oH1sgcyiq7grziexXeNd GZVsFXm7QGo6OYWtyPce EqCdTVN0FlO3SHO3uXRz xV4tqFppvandsC4j Oyc+X84zjW5cOSO3RKN9 qspbYHEseoVaRX93IZ19 K0FvAtwjaIEbvIN+PGRp ttRnkMjlRD2uGoOq n3bbz8MkDXzgY0WlRAMc RDmbKri9CBAaLXG2xXM3 rE7qZLNpOMxkt5M5eAS6 G3YqfvJoir5uy0xx UCWfXIkhP22enVGfc1K4 IJCxuST2AJVftVjmDqWu sB70Lgu+LPOjjDlgn3Io Vlxqx8ysf4rhoYx5 IjMwJSIgdmFsaWduPSJ0 r7HtYp93E34oHNppJVZm GHGyBAIuMRTzeTyelq8n xU2xLi8+PGNvbCB3 nUF5bB7xUZXcGdF7ERbp S301OdYsaNTiDhtqg6dp e3wmvVx8TpNpLHOmzbOa fHhkUQI7g6JzLk34 F28uJRouMTMvENQnMHNx PBXomCpejg2rpG9kIn7+ PR2xa2pyzj07hM67vBB+ KDBnTMX3aBslWEwk PLZuqH0uSDewHpL0RFOx SbGslB26hLPoQEcpAj8y oOzanVyqLA4qPUJczuct h908NcYba9ugJGDy hDSpTOtiRWW7O67ju4C0 XPQhSBCmKGJ8uAJ8iA8s bGlnbjogbGVmdDsgdmVy oVrdAQfuMLhrK941 IHRvcDsnPlBhdGllbnQg LpZtTAk7M4ZpSbt7OOLn gHbpVU4owISfEHuhOs2s uMxltJkdCW7vXDMh mudwi776TfLie0xuYFRi xUCqZBraYLI3H83pr7K8 GQOyXJPbSDG3cSA0yH8q bGlnbjogbGVmdDsg diXjaFhnZLqmJGioE225 IHRvcDsnPkJpcnRoIERh qPY0MM27FO50yXTpe1G7 oDY6N3UgFNIiwhoz wiuveVX9HSOoHWBufX44 Pf9abAieGi9vJPShDHS6 UDUmdBUnF5IpmX9mGtCq HRDgBROoS2MvkWIy XZoeS953VDlgIgP9SRYb fuWkG3MoRYWxgLtmBgT2 k8I5Qj5KT1B5JK45QD02 mMFtg2I6cUW1T7It YHHabbeastwfqCF1HWCc XPDugG17Ms4qlMmwCt3p PIMjFJC6BSVehDOdE5Gi eU3yUtPvUGZkLDTk J4GqvORfGUgdI344ATdu UvC2OTBpkfVtD2LeLBNd fBdkHuH7b3A9Lk0MPIh8 ZG70XB90qZFsq0P6 wHE0I1ChTPFzgpcegjdl nZR2XHSbSJMhvM05Vd2i vHjkVm8cSGPmIZD5FFYy iRTaC9OqrE7oWzDd YBKiWAPeN4PljLOuXOwg E007RPqnGoS1ASFgsfMw Q8JfUHUitXknDlS3h0Z8 Ph6SDNCuLG23YEY5 fVR0FJ97BT12H8CoFjtw dGFibGU+PHRhYmxlIHdp ZHRoPScxMDAlJyBzdHls SX7aRt7wIXKiRJHa yIxtoLAoKyRfj2tkOOMj RNroNE4xwDbmG2KijIF2 FXJzj8s3Bp67M75oO6Hx dXA+JFTspTK5jCY2 rW3oPfYkJuC4KObdA056 IkKbkUSoSxkph4fmx4ua tHf7EnA9XCRoymSagNup HAT4y8WuDm32D84o IHdpZHRoPSIxNSUiIHZh rQtzaa2ruK2tWa8+PGNv qEW5tQC7qD0hDwNzAcP1 RHihA120MvCgbDPk Oqjof5mja1uhiGi3SlAq RMGkmcSuaMpzESV0k9Ep Gs02C1BqpVups1ZkGle9 mm25rUZfn3Y2eWH6 Z3KoFJKalyhkzINhbXxe EX4oWHMpnrgiLCGbiO6a DIMwE1l2RuZuVhU7ULog Q7LifeS7ZEGibEMu GFfdZFM8R00mx0A8DOOr BKFkEMO4eYX8eL9loFku bjogbGVmdDsgdmVydGlj YHmqWDyeX880GNWk yLuhAYRnzW7oTDGbePRt sZbdHA6gSFGnnxyyEuFB ArkXUu8cLNUUDbECG7Wl TDwvdGQ+PHRkIHN0 cGtpZHajUMXrrJ8zATUq D0n9TfIwZxZ9NLfuI5Se YAQfsstgGu38wT3yQcTx WaC7EMxcE0RdngP5 UVTrwJRdOJbdQZQ8Z95t o4L4EIZqFIWhTIX9hPW9 tH8loEkknlwmqQKyzVil dmVydGljYWwtYWxp I732KIWfxQznRkC0TrMt KeF1AXF7M0YqLut8UNRo cMowUE2dkEAnQMneYj3a iDpxxLkeCD3mGAWk nyvtPNEqmG6sECPknDMo fHaaBB9jONBmpzcdr862 JeImQDJ4UAIopVXeC3Dk pB8sWxIiQVPuNOEc F1ThjXFnYRhiK770ITwa ZhS1WJRwdgLvR8YqICLw wOjqZlF3o7P4Cy3jVECI ZWFyczwvdGQ+PHRk VZP3oBjpARnyAUIcqV2w NOZyR8e3FxKlDwG0FWzw L8AiRNQfdhbtZh23wW7t JcGaPeZ3OCwiG8Nr kvH6RFBffNWcLEzyRKV8 F20wz8E1XQJiJBVpWUW5 tYP7hJ6nyResarzdcGSo dDsgdmVydGljYWwt INhaD005HOJzdGyvWyCq bWFsZTwvdGQ+PHRkIHN0 iQmtNJkcPSEftY8lIWId K9d1EfWkQsY8UAtd W6JdNLHdvdufNg31fZ9z OoOeWiN0UYulC9QpnnJ6 KCKttEEfVYqtWZD2Z25v y8T1XRSqZGKmIWC1 eFR3cY3uxQqyuxqcwNCu dDsgdmVydGljYWwtYWxp B673XAFtbUxaYr6PVEMy aWFnZTwvdGQ+PC90 cj37M9VfKywxItk3ZHRc ZQG9aTN0dO3tJZWtTJhm h0S5rPH9U6GtwpAsid3z k1kxTRWzRXxrX55g yGOwx9N5RYSopAC5JTZe iFriMaXydS81Mef+PGNv kEmjq0OiPbsro3jvi8ud bUb1JvMaJLXpagAh rHgzNNI5m1QwEz63B66o IHdpZHRoPSIzMCUiIHZh xVwdyt9xuZ0gPu1+PGNv gJZ8hKK3bC0rBfDi OrV6BFyoR858PqSkjGPi Zmvqf9vao4rwyLr6JlAd AYMhbkRdzMysAXP1w3Mf Pc92I7FpxMfqy0Ck Iyc1de19lVDnt4M0oPC8 C5KnTJFvcphpdVXegWux LT6sWMRqisldZPIxhK5g MAFzY4b5WnJyUwA2 IHbuW4UoyhV3DMKzgOQc PQYgcZFTeK0xtttpd9yd khryCgJxGSMpJZg6UGe6 LWFsaWduOiBsZWZ0 XiD8EJB6uHCakH1gcLyg bkfssG0vUxo+MJw4d9yt mXAoDM4ikVG0ZL97LS81 zGNyq8J8bVT2A3Xw YFHsabakuqazeKQ8JELo SXPmjZ84Xr6suXbyLo2b OBIqQTF0ESFjnPRdX0Wi uJ6fGmInSNIyBQKl H8XexDBsJShbU832KMkd JgB9REYfkqNwM6PtYCGp tUpmByM0f0M4No9YWY60 BQ46GN14rNTlv0L5 vYU9B6IlBPQvjhnyxomg tYQ5MCElQIYraC97Os2o pYtnWj2gELAjKYV0AADx nOQvQ0LhgX6aUjCa MEBfBZMuD3HfdDOcNIgh L994UHjfQpG8ACAjedJo U0AxDHXawOuhYjE1g4A3 Vk8GNu17EY24JG66 sZZzg2C8vDT7Y7EmJTKl gvnlhjvcjQH2RLEuAVNk fW21Zz8ceEdmMh7fIMZu HUC5HTUtlNTeO4Di bT1tIhXmUYMyJJOpK7Um sCUvNMfnN201EMlaFiR7 KHHbpfKmN3ZuXYZkcVmv LgY3u7E8Ja8CDOjj egz1J6HaVsgglUA+PC90 WHWaRY28fQMeiABem3cr vCi8WoGaOEKrLVS7sRph ZOdxb3OvSGSwW54v bGFw (more content not included)... Normal [facility] Insurance Correspondenceon 0 07-12-2020 Insurance Correspondence [id number] 8#1.00CD:127 Normal [facility] Insurance Correspondence Off iceon 07-12-2020 Insurance Correspondence Office [id number] 1#1.00CD:127 Normal [facility] Nursing Assessmenton 021 Nursing Assessment [id number] 8#1.00CD:127 Normal [facility] Group B Strep by PCRon 07-09 Group B Strep colonization by PCR Negative Normal Negative [facility] Comment on above: Order Comment: vagin al swab Performed By: #### 2 318244, 0418491, [id number] #### [facility] Laboratory [address] [place] [address] ABO/Rhon 07-08-2020 ABO/Rh Positive Invalid Interpretation Code [facility] Comment on above: Performed By: #### 1 6209000, 76626047, 6367860, [id number] #### [facility] Laboratory [address] [place] [address] ABO/Rh History Checkon 07-08 ABO/Rh History Check Verified Hx Blood Type Normal [facility] Comment on above: Performed By: #### 1 8802816, 54492938, 5045313, [id number] ####[facility] [address] [place] [address] ABSCon 07-08-2020 ABSC Gel Interp Negative Normal [facility] Comment on above: Performed By: #### 1 7286985, 66161325, 9294333, [id number] ####[facility] [address] [place] [address] BUNon 07-08-2020 Urea nitrogen [Mass/Vol] 7 mg/dL Normal 07-08 [facility] Comment on above: Performed By: #### 2 376464, 9547943, [id number] #### [facility] Laboratory [address] [place] [address] Blood Bank ID#on 07-08-2020 BBID# [id number] Invalid Interpretation Code [facility] Comment on above: Performed By: #### 1 3747541, 34647969, 7525663, [id number] ####[facility] [address] [place] [address] CBC w/Indiceson 07-08-2020 Erythrocyte distribution width (RBC) [Ratio] 13.6 % Normal 10.9-14.2 [facility] Comment on above: Performed By: #### 2 801678, 7178209, [id number] #### [facility] Laboratory [address] [place] [address] Hematocrit (Bld) [Volume fraction] 28.9 % Low 34.0-46.0 [facility] Comment on above: Performed By: #### 2 400621, 7622643, 443441276 #### [facility] Laboratory [address] [place] [address] Hemoglobin (Bld) [Mass/Vol] 9.7 g/dL Low 12.0-16.0 [facility] Comment on above: Performed By: #### 2 401040, 8579445, [id number] #### [facility] Laboratory [address] [place] [address] MCH (RBC) [Entitic mass] 27.4 pg Normal 27.0-34.0 [facility] Comment on above: Performed By: #### 2 044171, 6924418, 350353631 #### [facility] Laboratory [address] [place] [address] MCHC (RBC) [Mass/Vol] 33.5 g/dL Normal 31.4-36.0 [facility] Comment on above: Performed By: #### 2 814229, 8590645, 754265707 #### [facility] [address] [place] [address] MCV (RBC) [Entitic vol] 81.7 fL Normal 80.0-100.0 [facility] Comment on above: Performed By: #### 2 568079, 4308057, [id number] #### [facility] Laboratory [address] [place] [address] Platelet mean volume (Bld) [Entitic vol] 7.9 fL Normal 6.4-10.8 [facility] Comment on above: Performed By: #### 2 096094, 7465181, [id number] #### [facility] Laboratory [address] [place] [address] Platelets (Bld) [#/Vol] 320.0 E9/L Normal 150.0-500.0 [facility] Comment on above: Performed By: #### 2 917078, 4676222, 056690117 #### [facility] Laboratory [address] [place] [address] RBC (Bld) [#/Vol] 3.5 E12/L Low 4.3-5.9 [facility] Comment on above: Performed By: #### 2 118510, 0835784, 385606740 #### [facility] Laboratory [address] [place] [address] WBC corrected for nucl RBC Auto (Bld) [#/Vol] 9.9 E9/L Normal 4.0-11.0 [facility] Comment on above: Performed By: #### 2 899455, 3261320, [id number] #### [facility] [address] [place] [address] Creatinineon 07-08-2020 Creatinine [Mass/Vol] 0.4 mg/dL Low 0.5-1.3 [facility] Comment on above: Performed By: #### 2 625285, 9643147, [id number] #### [facility] [address] [place] [address] Discharge Instructionson Discharge Instructions [id number] 8#1.00CD:127 Normal [facility] FSPon 07-08-2020 Fibrin+Fibrinogen fragments (S) [Mass/Vol] <10 Normal <10 [facility] Comment on above: Performed By: #### 2 528386, 5054549, 622234386 #### [facility] [address] [place] [address] Stainon 07-08-2020 FMHV 0 mL Invalid Interpretation Code [facility] Comment on above: Performed By: #### 2 087052, 7201249, 908405385 #### [facility] Laboratory [address] [place] [address] Negative Control Negative Normal [facility] Comment on above: Performed By: #### 2 601889, 4762185, [id number] #### [facility] [address] [place] [address] Fibrinogenon 07-08-2020 Fibrinogen Coag (PPP) [Mass/Vol] 451 mg/dL High 200-393 [facility] Comment on above: Performed By: #### 2 724065, 8442278, 442411509 #### [facility] Laboratory [address] [place] [address] Hep Func Panelon 07-08-2020 Bilirubin.indirect [Mass or moles/Vol] UTC Abnormal 0.1-0.9 [facility] Comment on above: Result Comment: Resu lt verified by Discern Rule. Performed result UTC (Unable to Calculate) was sent as an Alpha code due the inability to calculate a valid numeric value. Performed By: #### 2 016806, 1598412, 700090189 #### [facility] [address] [place] [address] Albumin [Mass/Vol] 2.6 g/dL Low 3.3-5.0 [facility] Comment on above: Performed By: #### 2 596847, 0931307, 749042428 #### [facility] Laboratory [address] [place] [address] Albumin/Globulin (S) [Mass conc ratio] 0.8 Low 1.1-2.2 [facility] Comment on above: Performed By: #### 2 253430, 7271148, 128488628 #### [facility] Laboratory [address] [place] [address] ALP [Catalytic activity/Vol] 108 Int._Unit/L High 21-98 [facility] Comment on above: Performed By: #### 2 230016, 2296436, 164020569 #### [facility] Laboratory [address] [place] [address] ALT No additional P-5'-P [Catalytic activity/Vol] 13 Int._Unit/L Normal 6-46 [facility] Comment on above: Performed By: #### 2 511285, 0281794, 351249793 #### [facility] [address] [place] [address] AST [Catalytic activity/Vol] 22 Int._Unit/L Normal 5-43 [facility] Comment on above: Performed By: #### 2 285418, 1325934, [id number] #### [facility] Laboratory [address] [place] [address] Bilirubin [Mass/Vol] 0.4 mg/dL Normal 0.0-1.1 [facility] Comment on above: Performed By: #### 2 544651, 4967654, 394929486 #### [facility] [address] [place] [address] Bilirubin.direct [Mass/Vol] mg/dL Normal 0.1-0.4 [facility] Comment on above: Performed By: #### 2 275690, 5281747, 804216109 #### [facility] Laboratory [address] [place] [address] Globulin (S) [Mass/Vol] 3.4 g/dL Normal 1.4-4.0 [facility] Comment on above: Performed By: #### 2 214530, 9841376, 723861514 #### [facility] Laboratory [address] [place] [address] Protein [Mass/Vol] 6.0 g/dL Normal 6.0-7.8 [facility] Comment on above: Performed By: #### 2 962113, 9240948, 626471870 #### [facility] Laboratory [address] [place] [address] Inpatient Clinical Summaryon 07-08-2020 Inpatient Clinical Summary [address] [address] Clinical Summary Person Information Name: MYA MYLES Ifeoma/[facility] Age: 30 Years : 1990 Sex: Female PCP: Chao Blackwell III, DO Marital Status: Single Race: White Ethnicity: Non- or Language: Slovak Visit Id: Visit Reason: Speciality: Acuity: Obs Enc Type: OB Triage Med Service: Obstetrics Arrival: 07/07/2020 19:39:51 Discharge: 07/08/2020 21:22:00 Dispo Type: Home (Routine PR) Address: [address] [place] [address] [address] [place] [id number] Provider Notes: Diagnosis: Problems Active Obesity complicating [...] Follow up: With: Address: When: Funmilayo [place] [address] Business (1) In 3 days 07/11/2020 Comments: Call Dr. Kramer office Saturday morning to see if she wants to see you sooner. If not keep appointment. Call for any problems. Call for severe abdominal pain Call physician for heavy vaginal bleeding (more content not included)... Normal [facility] Inpatient Patient Summaryon 07-08-2020 Inpatient Patient Summary [address] [address] Patient Discharge Instructions PERSON INFORMATION [...] Address: When: Funmilayo ESCOBEDO [address] [place] [address] Business (1) In 3 days [...] Type Location Start Finish State WH SOV [facility] 07/14/2020 4:30 PM 07/14/2020 4:45 PM Confirmed WH Ultrasound [facility] 07/21/2020 4:00 PM 07/21/2020 4:45 PM Confirmed WH SOV [facility] 07/21/2020 4:30 PM 07/21/2020 4:45 PM Confirmed WH SOV [facility] 07/27/2020 2:45 PM 07/27/2020 3:00 PM Confirmed WH SOV [facility] 08/02/2020 4:30 PM 08/02/2020 4:45 PM Confirmed WH BIENVENIDO [facility] 09/15/2020 9:00 AM 09/15/2020 9:30 AM [...] Document Released: 05/03/2009 ExitCare? Patient Information ?2009 [employer] Labor and Information normally lasts 39?41 weeks. [...] (more content not included)... Normal [facility] Lyteson 07-08-2020 Anion gap [Moles/Vol] 9 mmol/L Normal 6-16 [facility] Comment on above: Performed By: #### 2 513611, 5031026, 344166969 #### [facility] Laboratory [address] [place] [address] Chloride [Moles/Vol] 108 mmol/L Normal 101-111 [facility] Comment on above: Performed By: #### 2 442066, 0539901, 358891681 #### [facility] Laboratory [address] [place] [address] CO2 [Moles/Vol] 21 mmol/L Normal 21-31 [facility] Comment on above: Performed By: #### 2 834701, 9602572, 038541885 #### [facility] Laboratory [address] [place] [address] Potassium [Moles/Vol] 3.4 mmol/L Low 3.5-5.3 [facility] Comment on above: Performed By: #### 2 619945, 4037088, 235967664 #### [facility] Laboratory [address] [place] [address] Sodium [Moles/Vol] 135 mmol/L Normal 135-145 [facility] Comment on above: Performed By: #### 2 363976, 8837960, 235416267 #### [facility] [address] [place] [address] PT & PTTon 07-08-2020 aPTT Coag (PPP) [Time] 25.4 second(s) Normal 25.1-36.5 [facility] Comment on above: Result Comment: Hepa rin therapeutic range (represented by Anti-Factor Xa activity of 0.2 - 0.4 U/mL) corresponds to PTT of 56.6 - 109.0 sec. Performed By: #### 2 941554, 7543119, 913154415 #### [facility] Laboratory [address] [place] [address] INR Coag (PPP) [Relative time] 1.0 {INR} Invalid Interpretation Code [facility] Comment on above: Result Comment: INR results are specifically intended to assess patients stabilized on long-term Anticoagulation therapy suggested INR?s ?Less Intensive Anticoagulation? 2.0 ? 3.0 Conventional Range 3.0 ? 4.5 Performed By: #### 2 787124, 8215320, 239151539 #### [facility] [address] [place] [address] PT Coag (PPP) [Time] 12.2 second(s) Normal 10.2-12.9 [facility] Comment on above: Performed By: #### 2 947722, 6153823, 706957325 #### [facility] Laboratory [address] [place] [address] Uric Acidon 07-08-2020 Urate [Mass/Vol] 2.7 mg/dL Normal 2.2-7.4 [facility] Comment on above: Performed By: #### 2 694144, 2581218, 775003004 #### [facility] [address] [place] [address] eGFRon 07-08-2020 GFR/1.73 sq M.predicted among blacks MDRD (S/P/Bld) [Vol rate/Area] mL/min/{1.73_m2} Normal >=59 [facility] Comment on above: Order Comment: Order Added by Discern Expert. Result Comment: eGFR is race adjusted. AA=. Performed By: #### 2 445986, 1164690, [id number] #### [facility] [address] [place] [address] GFR/1.73 sq M.predicted among non-blacks MDRD (S/P/Bld) [Vol rate/Area] mL/min/{1.73_m2} Normal >=59 [facility] Comment on above: Order Comment: Order Added by Discern Expert. Result Comment: Dredge Pump Operator ramesh kidney disease could be indicated at eGFR's of less than 60 mL/min/1.73m2. Kidney failure is indicated at less than 15 mL/min/1.73m2. Performed By: #### 2 344289, 1609474, [id number] #### [facility] [address] [place] [address] AmniSureon 07-07-2020 PAMG-1 Protein Negative Normal Negative [facility] Comment on above: Performed By: #### 2 220655, 2452854, 889407600 #### [facility] [address] [place] [address] PAMG-1 Protein Internal Control Positive Normal Positive [facility] Comment on above: Performed By: #### 2 035114, 1760057, 112050130 #### [facility] [address] [place] [address] Consent for Treatmenton - Consent for Treatment [id number] 3#1.00CD:127 Normal [facility] Consent for Treatment [id number] 9#1.00CD:127 Normal [facility] FFNon 07-07-2020 Fibronectin. Ql (Vag fld) Negative Normal [facility] Comment on above: Result [...] the antibody-antigen reaction. Performed By: #### 2 840913, 2992513, [id number] #### [facility] [address] [place] [address] UA With Cult Reflexon 2020 Bacteria LM Ql (Urine sed) 1+ /HPF Abnormal Trace [facility] Comment on above: Performed By: #### 2 658115, 2011895, 265534013 #### [facility] [address] [place] [address] Bilirubin Ql (U) Negative Normal Negative [facility] Comment on above: Performed By: #### 2 200306, 5606581, 929751131 #### [facility] [address] [place] [address] Clarity (U) CLEAR Normal Clear [facility] Comment on above: Performed By: #### 2 904295, 8915585, 660636378 #### [facility] [address] [place] [address] Color (U) YELLOW Normal Yellow [facility] Comment on above: Performed By: #### 2 461106, 6790396, 841102959 #### [facility] [address] [place] [address] Epithelial cells.squamous LM.HPF (Urine sed) [#/Area] /[HPF] Normal 0-2 [facility] Comment on above: Performed By: #### 2 503966, 1776237, 435234954 #### [facility] [address] [place] [address] Glucose Test strip (U) [Mass/Vol] Negative Normal Negative [facility] Comment on above: Performed By: #### 2 370208, 9628675, 851033203 #### [facility] [address] [place] [address] Hemoglobin Ql (U) 2+ Abnormal Negative [facility] Comment on above: Performed By: #### 2 006691, 3826416, 445224285 #### [facility] [address] [place] [address] Ketones (U) [Mass/Vol] TRACE Abnormal Negative [facility] Comment on above: Performed By: #### 2 207660, 8356633, 092984422 #### [facility] [address] [place] [address] [place].plasma/[place]. RBC (Bld) [Mass ratio] >30 Abnormal 0-3 [facility] Comment on above: Performed By: #### 2 457578, 5585476, 236519664 #### [facility] [address] [place] [address] Mucus Ql (Urine sed) TRACE Normal [facility] Comment on above: Performed By: #### 2 007580, 2291744, 660956370 #### [facility] [address] [place] [address] Nitrite Ql (U) Negative Normal Negative [facility] Comment on above: Performed By: #### 2 102856, 1324972, 049862835 #### [facility] Laboratory [address] [place] 8178257 pH (U) 5.5 [pH] Invalid Interpretation Code 5.0-9.0 [facility] Comment on above: Performed By: #### 2 337833, 2803037, 063385685 #### [facility] [address] [place] [address] Protein (U) [Mass/Vol] Negative Normal Negative [facility] Comment on above: Performed By: #### 2 218320, 3229238, 099102914 #### [facility] [address] [place] [address] Specific gravity (U) [Rel density] 1.025 Invalid Interpretation Code 1.005-1.030 [facility] Comment on above: Performed By: #### 2 663661, 9750820, 801500585 #### [facility] [address] [place] [address] Type of Urine collection method Clean Catch Normal [facility] Comment on above: Performed By: #### 2 905647, 4157160, 255496118 #### [facility] [address] [place] [address] Urobilinogen Qn (U) 0.2 {Henny'U}/dL Normal 0.0-1.0 [facility] Comment on above: Performed By: #### 2 790391, 7512233, 585364528 #### [facility] [address] [place] [address] WBC Auto Ql (U) Negative Normal Negative [facility] Comment on above: Performed By: #### 2 582294, 0635474, 936262637 #### [facility] [address] [place] [address] WBC LM.HPF (Urine sed) [#/Area] 0-5 Normal 0-5 [facility] Comment on above: Performed By: #### 2 378103, 3758941, 967698205 #### [facility] [address] [place] [address] Ambulatory Clinical Summaryo n 07-06-2020 Ambulatory Clinical Summary {[id number]}CD:[id number] Normal [facility] Obstetrics Office/Clinic Not jasmine 07-06-2020 Obstetrics Office/Clinic Note Chief Complaint OB visit 34 weeks 6 days. Obstetric History History (1,0,0,2) # 1 Baby 1 Outcome Date: 2008 Outcome: Live Outcome or Result: Vaginal Gender: Female Gest Age: 41 weeks Wt: 3232 g [place] [facility] [place] Labor: -- Child's Name: -- Baby's [...] Stable. Ordered: Office Visit Level 3 Est 95085 TH 2. Obesity complicating , third trimester (O99.213: Obesity complicating , third trimester) Doing well managing weight gain. Ordered: Office Visit Level 3 Est 43332 TH 3. Supervision of high risk in third trimester (O09.93: Supervision of high risk , unspecified, third trimester) Follow up in 2 weeks for appt and growth US. PTL precautions until 37 wks. Ordered: Office Visit Level 3 Est 41794 TH 4. 34 weeks gestation of (Z3A.34: 34 weeks gestation of ) Ordered: Office Visit Level 3 Est 34754 TH Follow-up With When Contact Information [facility] In [address] [place] [address]- Additional Instructions: Problem List/Past Medical History Ongoing [...] Dipstick: Negative (07/06/20 14:59:00) Normal [facility] Comment on above: Result Comment: Elec tronically Signed By: RHONDA DICKEY, Caroline\.rosey\Date and Time Signed: 07/06/20 15:42 EDT Patient [...] Document Reviewed: 07/23/2008 ExitCare? Patient Information ?2013 [employer] [facility] US Follow Upon US Follow [...] Amniotic Fluid Volume Normal Normal [facility] Consenton 06-24-2020 Consent [id number] #1.00CD:127 Normal [facility] Ambulatory Clinical Summaryo n 06-23-2020 Ambulatory Clinical Summary {[id number]}CD:[id number] Normal [facility] Ambulatory Clinical Summary {[id number]}CD:[id number] Normal [facility] Obstetrics Office/Clinic Not jasmine 06-23-2020 Obstetrics Office/Clinic Note Chief Complaint OB 33w, baby moving, swelling in feet. Having heartburn for about two weeks. Obstetric History History (1,0,0,2) # 1 Baby 1 Outcome Date: 2008 Outcome: Live Outcome or Result: Vaginal Gender: Female Gest Age: 41 weeks Wt: 3232 g [place] [facility] [place] Labor: -- Child's Name: -- Baby's [...] trimester) Ordered: Office Visit Level 4 Est 79610 NC 2. Obesity complicating , third trimester (O99.213: Obesity complicating , third trimester) Ordered: Office Visit Level 4 Est 30134 NC 3. Depression during (O99.340: Other mental disorders complicating , unspecified trimester) Ordered: Office Visit Level 4 Est 71422 NC 4. 33 weeks gestation of (Z3A.33: 33 weeks gestation of ) Ordered: Office Visit Level 4 Est 68195 NC Encounter for immunization (Z23: Encounter for immunization) Ordered: tetanus/diphtheria/p ertussis, acel (Tdap), 0.5 mL, IntraMuscular, Once, Stop date 06/23/20 16:00:00 EDT, Routine, Start date 06/23/20 16:00:00 EDT EACH ADD'L [employer] Admin Component 87074 EACH ADD'L [employer] Admin Component 13782 FIRST VACCINE [employer] Admin Charge [id number] Orders: famotidine, 20 mg = 1 tab(s), Oral, BID, # 60 tab(s), Refills(s) 2, Pharmacy: [id number], 157, cm, 06/23/20 15:10:00 EDT, Height/Length Dosing, 86.7, kg, 06/23/20 15:10:00 EDT, Weight Dosing Follow-up With When Contact Information Funmilayo ESCOBEDO MD In [address] [place] [address]- Additional Instructions: Problem List/Past Medical [...] Protein Urine Dipstick: Negative (06/23/20 15:09:00) Normal [facility] Comment on above: [...] keep your urine pale yellow. ? Take rwlv-aix-ktknaqk and prescription medicines only as told by [...] 02/04/2006 Document Revised: 05/25/2019 Document Reviewed: 05/09/2017 [employer] Patient Education ? 2019 [employer] First Stage of Labor Labor is [...] when you walk around or lie down (Mackinac Mahmood contractions). This is also called false [...] (more content not included)... Normal [facility] Coding Summary.on 06-12-2020 Coding Summary. CD:[id number] Gh0bWw+PGhlYWQ+PE1FV ELhK55fsBGlxM1JJ8bVG C6PSESGZJBBQP4WOY2va QM7SJppK3IxfmAz PsysnYGmVV10CSf5CSE4 xFkaPXcjpT9hiOMmZ5g0 LfBdIS76sY08GJhzWWXp OwG4CxUmbcfjbRAb X7uiJuIcyZCqKnb+PHRh YmxlIHdpZHRoPScxMDAl DaDqdKpnLF2uLu4tPSOw LWNvbGxhcHNlOiBj f9ylJBFyOAciRS0mlTtj F8ZnkSJ0BOJdd0t1Pd11 dHI+JXIgCMQ1zYmyHMns u415FkTpd3hkPML5 nOUeIEbwMNE3K21mv8N2 YTDrOENsIXQ8bBX0cR8y kEvyxxznZ0HzxWMyNfD0 CWH8tOTbiE0pgKxz jpzhtQ5nCzl+M15SAL8L TKIUFT3WZwj1W2ZdJcpl dHI+MX94PABaBL37yJKo xKGcr7hunBj8KsQv JHCuFER2xPgwFTfbt8Kz NKVpS33gxILlr2B9KVEm bMpdxJDnKvWgyQA8iA4h NNdxlzuuk1dttsad Hcoxj7bcjj48sW26X15l OZnxNXAgWUD9MGLdDBCn aCiplz3bgP1sNr4+IDxj r7ohb1okwYq2LyRh FVJlmqLnbOugFOM7d5Ia Ye70H2JgyUvri4YkXln2 nh55lFHqq6Q6rNO7VPce ZKYbjW6cHPwfOeM6 CCUiSeOawL28tPDhOWuc Rj0hlXejxChkQU5pITNn kikcATPztY0jRWYrhTCl lDpjRQ8tOPVyvhgm k849RmOjBHJ9CKTmkVEe N0GayC7jHgGtQXNdJKUk S6YhpJOeFWofN019AJvy UkJ6DSDjxtUzI0Zp UWJavJvrKmZ0y7W1Kz2P l8AptwezRFF9SVovVDH3 XdB5XyZdSgV0P9IhVij7 HBAcoRxaCW5bZ6Ox SDDdlvuylgrsiBV4LWBf UYHwuJ18hWGsQGxtQq9j v8Q7f335CQFzXSOhpV88 Qz5vfCiwRBXbvBYY tV3hlolgo1pptgktIeOg ISGsBPl3SBq4VUWemMhh LzPvYYK1FfT5UUX3xAEx cN0goDkoafkslY9j Oyc+Q23yaZ4dYFW0CEF2 azfzTINlbhByZR06KG04 R4WoIprhmKYmlJC+PGRp qcQwrYcqKX1lIlLt o7ico6JkCLeyN9EtQPDx YFnbDbo8QTKqJKD4jDK6 bL3hLCQgYDhlg6G0tHX0 X8CjxbXanh5ym5fa ONWnJAxgL05xiJRbp9N9 BLDyvDI3NBYdxAqbYnZd jD17Bae+PFXaiZfsc8Zg Esddf5mii2lkrNv6 IjMwJSIgdmFsaWduPSJ0 s1SqOj30A14kDJykHFHd JWKyIKLvZMQsiAfeyt6z oT0bKl2+PGNvbCB3 mLD0vM4qEKEuYhA4WNup M787KnSwkSVjQuztc7oq v0kikWh0OuUrPKOwsxRo dYjvCNB0t3EoAl74 M86vSTzhWJQiWJEdAXZp ESTexFrcag8taW1cSv6+ WQ5tb2vqke25aJ79uMT+ VBChFHI2lPyrLTve TPIfnI1oZFysArW4HTRd YhUquX60uXUuJGjsUj4x hKiltDdaCL5rFLJttuno f092VvHee0tcFCBb yPRiPCbqBKY5L89hz0Q1 JGBhETBlVUV8vZG6nH5f bGlnbjogbGVmdDsgdmVy nUmvJEoiCYucB779 IHRvcDsnPlBhdGllbnQg XaFqEAc5S1YlVki0LRVa bCclME4kmERhBNbwEg8y nFguyKlcAC2hACPc kxtvq437FfXkd0rdWTOo wQAzUNuhGOU3O82df0E2 BJFkBBGfARQ0bVV2mJ2o bGlnbjogbGVmdDsg veXtaLxkMDcqFDoaJ118 IHRvcDsnPkJpcnRoIERh fRP2SR34OH40wUPxc3E6 eBN7T6ErYSNtkecz coamjSW5MLDmGMCmzB68 Wk4rySmzDy5lDVBbIPA7 MSNfjUYsN9DoyS0bWyFa PXIdVYZtJ1UbiTKs USauF473IIrrMvP2CTNl qzNaV8KaJMSnuQgfOhN7 x5L2Qz6HZ8B6CI23YR98 eXKsq7D3oMC8N5Dn JRRfvkihvjijvPT1YVCh BCNpfN04Nt1ryMtwVo6u VHJtGDW9SHOxcITdS0Jy uU4xIqJlUQWcYKXp V0OzjACgIQmmF892XUwu SiB4TJQnmrZmA1YlZMDq bDljKtE7a8R4Jz5LFRj2 ZC65NP62tPGwa5R6 tFZ2K0PnISFtkfuhaeas nAZ6KRTsNTXprI67Hn9t sLnlBm2hMNVeQOS2GQDk wXNeR5NruU0bOoCx AHNwRLKrN4YuhTXjQErn Q921UOmwUmU3LZIkgoFa Y1TgENDfdLawJoT2c9Q7 Iq1QDQMwMM09JYU1 jZY0YT81PW30P0ElWrhy dGFibGU+PHRhYmxlIHdp ZHRoPScxMDAlJyBzdHls OJ7xLn5jTHTqHLKn pNlvqJVvLhWgc7ppSWUa UWrfEQ1aeNoyJ1WbjYT3 TKJrf8p1Ia51S93mH1Xy dXA+KEKvgIT2aUJ0 pQ2lCrCvWcD9OHtfV116 FnCmuZDlIdcuq9cjb6jk hZz6VjB2YFUdepMoaLov CSK1u5LxVe03R74u IHdpZHRoPSIxNSUiIHZh pQewvn1qrY0jHo2+PGNv mEZ7kNX7cP5oQeMeHhB0 QRxhP661ZpHvbKXt Pdpdo2vxb0avmVb5UvVq WXGuwxXbwVwjARW6m1Sj Eo22N7ConHkfx7TlIsy0 ol57hQLyp7A1fWA0 Q6VuFFVlyyutdIWfrCsm UF2aNZBuvnbqOCWdgO0f GJKiG5j8RsWdNlQ6BFjt M6KxqoE2FFOddVZm NGbfZXR7A07zo2M3QPBw HEIyKXX1mQG9lG4gpJkf bjogbGVmdDsgdmVydGlj EEntWGyyB079STCm uBxoOBPuvS7qVBZcpUAp vMctFH6oOSWntpipQvJJ UuoRPe4rCEKMSlIPT2Oc TDwvdGQ+PHRkIHN0 rJzcDFobYTMjsE6dDANj L3r4KtYmNeQ6ZPwiA6Bo NCDkzuegJq63mM9lQtBi UjR5LJmhG1VotpC7 XJBacWOiYPxbEQH6S33s d6E1UWEsYAWtTEH2eAP1 vY3seTvpxyuhqJSdjRmo dmVydGljYWwtYWxp P396LPEjwYkqWwR2KvWv QjC3SED5H6EvAwv6RKNx pTcmUV9rcFRbCDydIk2g nRmxpTveAH5nSEAo udleYAKptU5tPNZciBSq iMzhUK8nALUzgxwpq951 ClMmPNU8HGWniIFwP9Rj mE2sVoInXNVzDZUj S0FkoASiPQccQ452OYfh TpG4USQxwjLrA2LvNKOx kZbyNfS4w5V1Fq1rDRTI ZWFyczwvdGQ+PHRk YFL2tRtcYHrhRLYvgX2l GVHjA5k6UoOwKyX2LRdp X9TpSQIkxqevKx31iF5c AbDgQaX8ZNkwY7Gw wdQ3UTMkhXTrBNocUTV8 M46pd6P1ZVZnGCLwANO0 kNT1xD2zmGqktiqxmXQe dDsgdmVydGljYWwt VIudQ508LQYdkAzzUwAv bWFsZTwvdGQ+PHRkIHN0 hEwbXJlpCFGqyG7eKPRb L2e4WpEgNhE0KCsh A7YhHXAlypfqTa81yD7r MuKiYhM9OZfqL5HvraA5 OYQenRRxCZxsAVQ3Q68r p0A6FEAdATRcEXB0 oAV9vX6ruLqzzdejnNVg dDsgdmVydGljYWwtYWxp Q117JKDaoOirTh77iBFa gLmeuvC4M5IkIojx dHI+ZG68ACIxAG20zVNk gEAyd8xfyTq1PoRyRTWp ETC1aXpxXOhcv6GaFSEj P61gwZRlg0K4OBPa iBeqyCZrNkRbcLP7wO1y CIvfdjekk8hkfgiyWpxn j2rxjo32sQ35Z86xXLuw ZHRoPSIzMCUiIHZh eQecgr2ycR3nMv0+PGNv wCP1nZF3eV0vIrAtOfG4 WTiuT723DlQqsIAnQopz y5yvj0tnaBv8HiYk YYDvhhQbyDcsMSQ8v8Mw Cu87U81dBXmnARNyJYIs QVYrUSZflYdjwh2xqI1h Ii8+SL7ax8lqqc76 dO17oSB+TLXnSYS0dTex DFoaCGKwoR8pMOjzUrJ7 ZVKpMvSglD12gWLcMAib Ee6xoFovuZjbVD0o VHNxgould155HaHse7kn JNIypWLzDSrwRLN6N73e q2V2QIYbXWBwILW9gZL5 rC3sgIalgkdtzFFa dDsgdmVydGljYWwtYWxp J596JADlhEcoCcLquQEr B5fgqwCOMK5iNcubiDR+ ATKsAZE2vLncXJtt KPDtwQ6jNFFiN4l5CaIf PcC1LGbcP3HbgfL1IAWv dXBgUNWmhJGKbT7uyabl p5fxindpFwDgIKMx FBw2WAw6LZFhuGmlXlXv UFU3SzU6IHA9oZLvfM0o uYwdaocqlW3gGva+RklO OjwvdGQ+PHRkIHN0 aPceMNvvWLExlG8aDYPg W5r8StWzOcQ4COoqX6Yi iiF5YVLcgTDpELWfjFWE hK4zrqpwq1xcvhkc OpYtRWJwVSo1HKf4ASNv cDyjLeSrXPM9LmL1YXM6 yRQpnA0lxEdqcuhcmY5z Oyc+TVJOOjwvdGQ+ PHLjNNT8dYuoNHpuBLXw mR4wSHJiC1x4DxDqMwQ0 BJzlS2ZbotQ7KGFetTYp MEEbwASKkC8votuu f5efiffkGeNvFCAaWPr5 DYt8JLPhwKixCcScKIJ0 NpU5WNI2tKGsgT9vgNku bdmpzZ2nPxi+UGF5 HAO9RI00ML33L8WkYarr dGFibGU+PHRhYmxlIHdp ZHRoPScxMDAlJyBzdHls NS1xPa2uAFOtLOIt bGxh (more content not included)... [facility] Coding Summary.on 06-09-2020 Coding Summary. CD:[id number]:[id number] Gh0bWw+PGhlYWQ+PE1FV OEmA68gyVDwtZ8WP4rFG V5WLTOPFLXMKE9FKL1so YI2UHkjS3MwmeQg VvoaxXSyVP27MTn4XGS6 yFaxPEjrsL5wrKJyX5z4 BjEqZH22qM12EYnhYHXr YtK0RxWxuxscwOKu M7ldZpHhpYCnOvm+PHRh YmxlIHdpZHRoPScxMDAl AdEbuAzxBL2yIl6kZOVj LWNvbGxhcHNlOiBj s9ilZGJrEQvbJZ0irIgm P1QmgBI7SIGac3y7Cx49 dHI+NKDbYBM2wPvkTYog t776NeOud6tuTWZ9 jWSaZXfeKJV9Z90bk9L3 CIZvVDPlLCB5tYL8kU4c jLjcqxyoY1UcmUTbSeP5 DIA3iBSsuP8qmOyd cmbgvD2iEma+L81ZCT6G PSDXHV1PNmw0V4UtCtqq dHI+UV13ZDOtOL94zWQp mLMiw9rieCo0BuAh JZDtCBK1pLiwXDvsb7Sn VZDbZ22xmSPmk0M7QBSn iNcgyZNhAkQgsSZ3aY4t MEwlbwldf5ipetii Lauqa1fvcf65mK03A84b FZzyEAWxJBL5EKXvJUAc kRxrav4ltG9dCk8+IDxj a6oen2yqvAs3FiYq GAFuyfGhyQgpIFT3p9Ov Cd02C5TfsOmhr4CoZub5 zl96dZHgo1J4oXZ4NJkw WBDhvK3nIXvdWiZ7 QMLbWhGczA45dLZtOFcq Ee4hnAcmfApkEL3qQNRx xgfhHENjvG3xMWDkyGZl lFrhJC2tUWMaavxu x020ZhGhGZR4WSOmvFTz H4MbxF7dXvUgNHIiRPFf I1LhbEGfLAjbI304JIke RzM2AGThknUtX7Ir VMDzpGdjCeB9g8K4Hw0V f7IhuvkrULM5NZggHTU2 YcSbFqIeFbY2O1GbPms6 TIOeiOcnLJ4sV8Ne YNTunmkmaneihDM1GPPp VENkwT78zYShCBxgCc4e c4T1g433WSUlHMMscJ02 Xe7mfQrlAUKldCNB xI4xwvhkd0cmvplyAkIv LPDaYBx2LSx4PYKfoOja NfPeUAU6LzU1SXU3nJQq lX2bnRdkownywA7m Oyc+A66azG1nRLK5RLU5 eyneCVMmxhXyJX25VM10 Y7VqGeuitTVusDC+PGRp ckTilEgsDB0rGfFf o4tmq0TyLJdmM2VrZQVn NPebGwm8TIBnYSN7bME6 qX1mUBWjIVpti7E8jLE2 B4ExvqWjbl7gd9ty XFImLQciT99rpBJnm0X7 HYFigBF2TESktMtcLsFt pP19Vna+YHQieBnkn1Fg Ihlkz3xby6olnDa0 IjMwJSIgdmFsaWduPSJ0 e6MtFd51M57sADxfQFRm CMDwWLOeAJOtsCjwaj5u oY3hHq0+PGNvbCB3 kUG8vH1mLEIaWiS0RTqy A894AjRrqCCpOsmlk3da x5tvaMg3TaMaBSFbtuBg mAnoWZZ1k9BzIg06 L01zRNtuVCNbDVTlUQBx SPRmgCsoms7buJ4gGq7+ PI9mp8gkho34kG42tWJ+ TPSiZEF1qXotUWqj PQOszJ6iNFejSlZ8MCHu IwUfiB67iNNpAUdxFr9g zMuvvDsjMJ2aFLWontfp t744PvBzk8exXDKv hKKzBYhlFYT6B33su3H8 WSEuFKNuMXK5qCW9fI6m bGlnbjogbGVmdDsgdmVy lMgsMDsrOByeX683 IHRvcDsnPlBhdGllbnQg BuPfUEr9A8CkLft1RACa kArxBV6ulDPlCPyoYu7y cRuamYraTB5iWRDt ulagd326PsEmc6jeSDBm uIEgIRuhDFO3N75kg2A2 IVRlEOJhNGP3hTW2vC0j bGlnbjogbGVmdDsg uuNwgJybKUfdXMfmA028 IHRvcDsnPkJpcnRoIERh gEK1SM94KC58bXGrl9X0 rAC6Y2RpKQMlvasi jxtjbIF2MQOdHPRcsN93 Nf7glVvyTu5iDKUrROZ4 ZJQutMDuR9ZooJ6fLpEk BSZiONCkV2PbsQGd HLskG903LBhuYvJ0LNXn ycHsL0RnSVRmvHqoNwX3 s1E9Da2NU5E7JD75DD94 uYAmz7E9kQJ2N8Ff ADDfwmarkonmeNK9XCUw FFPupI25Oj1gjRbkRz2p FDNbPWD0KDQvdBTjX8Wy pB3sJfKoSWToCIXh Y5OeuLRyXAafW498EEgk CcC2XYYtaiCsF6YaEUQd rZrvPrD8t6A6Wd2WEQr7 CY02FU16hTRvg0M0 vUQ7H2LmGRLkwsevrzbd oOO1ZUKqPVAzsP86Gz8t fFmcOg3mLLOvSDF3ZVLi vAEvS6SqlN0gTpCe UDAmDOStV5NszHFqGGnk H210PMqrUdB5YCBswmAn N9IzTIFsyXboKkV3k4Z5 Sg4TROGhZW01QTM8 hRK2QO33FY16G4YrOisl dGFibGU+PHRhYmxlIHdp ZHRoPScxMDAlJyBzdHls IA9eQw8iFCSwVIRj tBogtZLtEtNoe3bxTMDd HKytOS3tnJfvG1ZqwWN9 ZNLiy9a2Ua20S06zQ6Rw dXA+CSJhmTY7uBH6 wW8iWdYmJsL5YKohQ400 QlOxaCSeTdvjq5pbx8om sSf7NnG8FGRuftGwuXru XEZ8w9FgHb11T79p IHdpZHRoPSIxNSUiIHZh mErpry9wuL6xSw2+PGNv zNU5xIX3zZ0zDnPbNeF0 NWxnX563ZgTyjSJh Ixqjd3pqq7pzlOv2NgQb KPWterPioIsxXZX2u9Oy Xp77G3XkvYgoy9HeAmm4 cu65zIEow5E1qCN0 J2TpAGYxoezghOCklGii HC5zWRDndpxoQAStxA1a KANkJ4j4LxHkOiL9SIlu J5IlzlM3QQEzjSMg RPxpFJO7O30le8R5EVLx KPBoCJS3fIU8lN3inIof bjogbGVmdDsgdmVydGlj VHbzNUntV626SXUg oZgeCVTtuY9aLGKfcLEm mEjzNF9vTBHuhdctCtMF QtuVBa8lXXRCFfXPS8Ng TDwvdGQ+PHRkIHN0 wTvwWMnhLYRqhZ2pRTDm U1t9HfNzApK5OFaxY2Wr WHZzbnaxPc47tR1hLsPc AtH9IRgrV8CwbkZ2 BTPhiRXoVBacEAP8W59c a1H8OJCxMZCyNTB2lYE0 dI1moMgapywvsEXqpSus dmVydGljYWwtYWxp Q311LHTffDulRxX8IqQo DzN9RDP0E2GlRmq1RQQf tKdcQI2nsZHdOUjtLj6f oTjuuUbxRQ4nZIDi ybimLGMzeP0tITKufNNe vVzlUS3eALNwycjxj126 AgKoDTI1SPRppMYgH7Ka iD5mFgVkFPMaEXMr X2IxnNDdHAdnO712QBvz NdZ9ISZgzzNaC7FyBNQl lZsoHjA4f3J4Ax3wPMTR ZWFyczwvdGQ+PHRk JHY1sSrmKCliONUbdU4u ONJsI9b7ZiGaDqR8TTbd N3PqCHPmmznuPj13dM5g FdAbJdB6PBrqI4Fd wiB0ZOMyhEEuKZygOWD6 H44su4Y5LIZoIXYiJGY9 qAO2zX4guUdxgedhcWMk dDsgdmVydGljYWwt XDnlY356GAZfpRcnAyLj bWFsZTwvdGQ+PHRkIHN0 gCiaIYrfNZXlsP5nLYCk F2l0FgEoTfX4PSlr U0YtIUCsbygtRr74nT0f WbTnXlV6SNhjV3SbipT1 DZAkeEJqWEmpWZU6Q29y p2J7XTOyULLzYWY5 gHJ0vO6zyNrofezdmNKm dDsgdmVydGljYWwtYWxp K419NEJgsYnjOg19nDRm pNjsprY5H4ZgCykl dHI+MP92CSCaTA95oLLu uIDup1nhpWv5VzVyERWa NZR5eSmwOSlnm6UzWOWo T11lhAZhk3R5COKw qXyavQRbHaHueMK4vQ5a XKfbblhkz0yecrrjCzsv g4qjgr77fY58E10iCQyh ZHRoPSIzMCUiIHZh zJrawk0fbK9rSn2+PGNv zZB8zHF6kG2pKdPaFfI4 ISnyH418DqVexWPyUbrp p5mpt3ylkMb1BjDv LMCpspRzdXjyQNX1s6Ec Bp59J85qEDviCAGvCWGw BZZyOIGdvGvuwg3cxQ3g Ii8+ZB4yl1pjbc31 bC59zYW+DHSnMOK1lWqe XTbbLREgqE3fFUntEwD3 ITOhVcLhbL46eZJgUTnw Ab2gaYsqdNjoKY0i XIExixqkg237GrUnl2oh IKKarAYbHYrgOFW7R77b h0Y4NQKuBMFoGJX0fMN5 jK4cwZocdvihzGQt dDsgdmVydGljYWwtYWxp D431GZDbuXfqVpMnuRJm V6rmodWXHO8mDnzahRW+ MCTiPJK9vXreBUyd IPOjaX2yVVZyK3e5QfFd AyZ2BBdqW5TokrZ7IHOk xXHiKFPgoIQBxI8caxko o1ivqwfnJoPzQHHh XJp6YUa8TTZkbRyuUqBz RBN7LmF9ZWW8uJDjjV2g cAbzblombB8sYqk+RklO OjwvdGQ+PHRkIHN0 kQipMKirCEVyuJ5rRKDx V9d2UzTdGzA8SJjfH6Dc xkV1VCSnxMEtCWKcjWJM lH3qtlrmu1jgjtkp LfLgEPQvLFs7FEq0CWEm oGheYhFiVNP4TiP8EMM0 tYRnqF9ufMrxdphowH5z Oyc+TVJOOjwvdGQ+ XFLlFMF1uEeeMDteQIBl oR1kIFDuK0l3GmIiPlR3 UVfnJ6VkjzY2KLSuxGJr FSQegBNCpJ7oquks o6lzucftZgMpABFyNIl0 CKi3UUZemRtlGzIkACF3 JxP5RYI3xRYlnN0sqLos fzvwmQ2qFjx+UGF5 NDS4BN29ZM68K3RhKyjd dGFibGU+PHRhYmxlIHdp ZHRoPScxMDAlJyBzdHls UI8tEv2xAQYwEZAf bGxh (more content not included)... Normal [facility] Capillary Glucose POCon 05-19 Glucose [Mass/Vol] 82 mg/dL Normal 55-99 [facility] Comment on above: Performed By: #### 2 [id number] #### [facility] [address] [place] [id number] Consent for Treatmenton 05-19 Consent for Treatment [phone] 10 [id number] Normal [facility] Glu 1 Hron 06-03-2020 Glucose [Mass/Vol] 139 mg/dL Normal 55-180 [facility] Comment on above: Result Comment: POSI TIVE SCREEN = 1 HR > 140 mg/dL Performed By: #### 2 [id number] #### [facility] [address] [place] [address] Glu 2 Hron 06-03-2020 Glucose [Mass/Vol] 123 mg/dL Normal 55-155 [facility] Comment on above: Result Comment: DIAB ETES FASTING >126 mg/dL or 2 HOUR >200 mg/dL Performed By: #### 2 [id number], [id number] #### [facility] [address] [place] [address] Glu 3 Hron 06-03-2020 Glucose [Mass/Vol] 101 mg/dL Normal 55-140 [facility] Comment on above: Result Comment: GEST ATIONAL DIABETES 2 of the following: FASTING >95 mg/dL 1 HOUR >180 mg/dL 2 HOUR >155 mg/dL 3 HOUR >140 mg/dL Performed By: #### 2 [id number] ####[facility] [id number] [place] [address] Glu Fastingon 06-03-2020 Glucose [Mass/Vol] 83 mg/dL Normal 55-99 [facility] Comment on above: Performed By: #### 2 [id number] #### [facility] [address] [place] [address] Rubella Abon 06-03-2020 Rubella Ab Positive Normal Positive [facility] Comment on above: Performed By: #### 2 [id number], [id number] #### [facility] [address] [place] [address] ABO/Rhon 06-02-2020 ABO/Rh Positive Invalid Interpretation Code [facility] Comment on above: Performed By: #### 1 [id number], [id number] ####[facility] [address] [place] [address] ABSCon 06-02-2020 ABSC Gel Interp Negative Normal [facility] Comment on above: Performed By: #### 1 [id number], [id number] ####[facility] [address] [place] [address] CBC w/Indiceson 06-02-2020 Erythrocyte distribution width (RBC) [Ratio] 12.9 % Normal 10.9-14.2 [facility] Comment on above: Performed By: #### 2 213450, [id number], [id number] #### [facility] [address] [place] [address] Hematocrit (Bld) [Volume fraction] 33.5 % Low 34.0-46.0 [facility] Comment on above: Performed By: #### 2 574287, 8243116, [id number] #### [facility] [address] [place] [address] Hemoglobin (Bld) [Mass/Vol] 11.2 g/dL Low 12.0-16.0 [facility] Comment on above: Performed By: #### 2 181486, 0613902, [id number] #### [facility] [address] [place] [address] MCH (RBC) [Entitic mass] 29.0 pg Normal 27.0-34.0 [facility] Comment on above: Performed By: #### 2 033568, [id number], [id number] #### [facility] [address] [place] [address] MCHC (RBC) [Mass/Vol] 33.5 g/dL Normal 31.4-36.0 [facility] Comment on above: Performed By: #### 2 938235, 8210534, [id number] #### [facility] [address] [place] [address] MCV (RBC) [Entitic vol] 86.6 fL Normal 80.0-100.0 [facility] Comment on above: Performed By: #### 2 935999, 9759600, [id number] #### [facility] [address] [place] [address] Platelet mean volume (Bld) [Entitic vol] 7.6 fL Normal 6.4-10.8 [facility] Comment on above: Performed By: #### 2 311659, 0535854, [id number] #### [facility] [address] [place] [address] Platelets (Bld) [#/Vol] 284.0 E9/L Normal 150.0-500.0 [facility] Comment on above: Performed By: #### 2 247877, 2405959, [id number] #### [facility] [address] [place] [address] RBC (Bld) [#/Vol] 3.9 E12/L Low 4.3-5.9 [facility] Comment on above: Performed By: #### 2 168721, [id number], [id number] #### [facility] [address] [place] [address] WBC corrected for nucl RBC Auto (Bld) [#/Vol] 9.4 E9/L Normal 4.0-11.0 [facility] Comment on above: Performed By: #### 2 498355, 4266229, [id number] #### [facility] [address] [place] [address] Consent for Treatmenton 05-19 Consent for Treatment [id number] #1.00CD:127 Normal [facility] Gest Scr Glu 1 Hron 06-03-19 21 Glucose [Mass/Vol] 150 mg/dL High 55-140 [facility] Comment on above: Result Comment: Posi tive Screen =1 HR > 140mg/dL Performed By: #### 2 767495, 1428384, [id number] #### [facility] [address] [place] [address] Ambulatory Clinical Summaryo n 2020 Ambulatory Clinical Summary {[id number]}CD:[id number] Normal [facility] Obstetrics Office/Clinic Not jasmine 2020 Obstetrics Office/Clinic Note Chief Complaint OB 29w 5d, baby moving, patient doing 28 week labs done this Obstetric History History (1,0,0,2) # 1 Baby 1 Outcome Date: 2008 Outcome: Live Outcome or Result: Vaginal Gender: Female Gest Age: 41 weeks Wt: 3232 g [place] [facility] [place] Labor: -- Child's Name: -- Baby's [...] trimester) Ordered: Office Visit Level [address] [facility] Follow Up Follow Up 2. Obesity complicating , third trimester (O99.213: Obesity complicating , third trimester) Ordered: Office Visit Level [address] [facility] Follow Up Follow Up 3. Depression during (O99.340: Other mental disorders complicating , unspecified trimester) Ordered: Office Visit Level [address] [facility] Follow Up Follow Up 4. 29 weeks gestation of (Z3A.29: 29 weeks gestation of ) Ordered: Office Visit Level [address] [facility] Follow Up Follow Up Follow-up With When Contact Information LAURA MACEDO, Funmilayo Ryan In [address] [place] [address]- Additional Instructions: Problem List/Past Medical History Ongoing [...] Dipstick: Negative (05/31/20 14:25:00) Normal [facility] Comment on above: Result Comment: Elec tronically Signed By: LAURA MACEDO, Funmilayo Ryan\.rosey\Date and Time Signed: 05/31/20 15:32 EDT Patient [...] including vitamins, herbs, eye drops, creams, and ooja-ajt-aubvdnr medicines. ? Any blood disorders you have. [...] This inform (more content not included)... Normal [facility] RAD - Ultrasound Reporton RAD - Ultrasound Report [id number]# 1.00CD:127 [facility] Coding Summary.on 05-17-2020 Coding Summary. CODING DATE: 05/16/2020 FINAL [facility] STATUS: Home (Routine DC) PAYOR: [place] ADMIT DX: REASON FOR VISIT DX: O09.92 [...] [facility]T Date Saved: 05/16/2020 11:17 pm [facility] C Urineon 05-13-2020 Bacteria identified [...] R1: This test was performed at: [facility], [address] [place] [address], [address]- , [place], Normal [facility] Comment on above: Performed By: #### 2 [id number] ####[facility] [address] [place] [address] Ambulatory Clinical Summaryo n 05-11-2020 Ambulatory Clinical Summary {[id number]}CD:[id number] Normal [facility] Obstetrics Office/Clinic Not jasmine [...] Age: 41 weeks Wt: 3232 g [place] [facility] [place] Labor: -- Child's Name: -- Baby's [...] far. Ordered: Office Visit Level 3 Est 16292 [place] 2. Depression during (O99.340: Other mental disorders complicating , unspecified trimester) Doing meditation. Ordered: Office Visit Level 3 Est 64704 [place] 3. Supervision of high risk in [...] 1 Hour Office Visit Level 3 Est 03513 [place] Urine Culture 4. 26 weeks gestation of (Z3A.26: 26 weeks gestation of ) Ordered: Office Visit Level 3 Est 20351 [place] Follow-up With When Contact Information [facility] In [address] [place] [address]- Additional Instructions: Problem List/Past Medical History Ongoing [...] (more content not included)... Normal [facility] Comment on above: Result [...] Petroleum jelly. ? 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 ? 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 Health and safety ? Rectal thermometer. ? [...] ? Consumer Product Safety Commission: www.cpsc.gov ? [place] [employer]: www.healthychildren. org ? Safe [...] 01/17/2009 Document Revised: 01/17/2018 Document Reviewed: 12/25/2017 [employer] Patient Education ? 2019 [employer] Normal [facility] Coding Summary.on 04-29-2020 Coding [...] Saved: 04/28/2020 10:33 pm Normal [facility] Coding Summary.on 04-27-2020 Coding Summary. CODING DATE: 04/27/2020 FINAL [facility] STATUS: Home (Routine DC) PAYOR: [place] ADMIT DX: REASON FOR VISIT DX: Z34.82 [...] [facility] Date Saved: 04/27/2020 10:53 am [facility] Nursing Assessmenton 021 Nursing Assessment [id number] #1.00CD:127 [facility] C Urineon 04-23-2020 Bacteria identified [...] Locations R1: This test was performed at: [facility], [address] [place] [address] [place], [address]- , [place], [facility] Comment on above: Performed By: #### 2 104137, 6327307, [id number] #### [facility] Laboratory [address] [place] [address] Consent for Treatmenton Consent for Treatment [id number] #1.00CD:127 [facility] Consent for Treatment [id number] #1.00CD:127 [facility] Discharge Instructionson Discharge Instructions [id number] [id number] #1.00CD:127 [facility] Inpatient Clinical Summaryon 04-21-2020 Inpatient Clinical Summary [address] [address] Clinical Summary Person Information Name: MYA MYLES Ifeoma/[facility] Age: 29 Years : 1990 Sex: Female PCP: Chao Blackwell III, DO Marital Status: Single Race: White Ethnicity: Non- or Language: Slovak Visit Id: Visit Reason: Speciality: Acuity: Enc Type: OB Triage Med Service: Obstetrics Arrival: 04/21/2020 15:56:05 Discharge: 04/21/2020 17:47:48 Dispo Type: Home ([facility] [place]) Address: [address] [place] [address] [facility] [id number] Provider Notes: Diagnosis: Problems Active Depression during [...] Follow up: With: Address: When: Funmilayo ESCOBEDO [employer] [place] [id number] Business (1) 05/12/2020 9:00 AM Comments: Call for any problems. Type Location Start [facility] 05/12/2020 9:00 AM 05/12/2020 9:15 AM Confirmed Patient Education Information: Normal [facility] Inpatient Patient Summaryon 04-21-2020 Inpatient Patient Summary [place] [id number] Patient Discharge Instructions PERSON INFORMATION Name: MYA [...] Address: When: Funmilayo ESCOBEDO [address] [facility] XDx (1) 05/12/2020 9:00 AM Comments: Call for any problems. In the event that this physician does not participate in your insurance network, please consult with your insurance company to find a nearby participating provider. Type Location Start Finish [facility] Saeid 05/12/2020 9:00 AM 05/12/2020 9:15 AM [...] Leaflets: You may receive a survey from [employer] asking you to rate your care experience. Your feedback is important and will help us understand what we do well and how we can improve the quality of care we provide to you, your loved ones and our community. It?s an honor to serve you. Thank you for choosing [facility] Normal [facility] Insurance Correspondence Off iceon 04-21-2020 Insurance Correspondence Office [id number] #1.00CD:127 Normal [facility] RAD - Ultrasound Reporton RAD - Ultrasound Report [id number] #1.00CD:127 Normal [facility] UA With Cult Reflexon 2020 Bacteria LM Ql (Urine sed) 1+ /HPF Abnormal Trace [facility] Comment on above: Performed By: #### 2 332143, 3256683, [id number] #### [facility] Laboratory [address] [place] [address] Bilirubin Ql (U) Negative Normal Negative [facility] Comment on above: Performed By: #### 2 295829, 5247124, [id number] #### [facility] Laboratory [address] [place] [address] Clarity (U) CLEAR Normal Clear [facility] Comment on above: Performed By: #### 2 119898, 5133445, [id number] #### [facility] Laboratory [address] [place] [address] Color (U) YELLOW Normal Yellow [facility] Comment on above: Performed By: #### 2 401617, 8861437, [id number] #### [facility] Laboratory [address] [place] [address] Epithelial cells.squamous LM.HPF (Urine sed) [#/Area] 3-4 Normal 0-2 [facility] Comment on above: Performed By: #### 2 503635, 5270650, [id number] #### [facility] Laboratory [address] [place] [address] Glucose Test strip (U) [Mass/Vol] Negative Normal Negative [facility] Comment on above: Performed By: #### 2 760956, 4971794, [id number] #### [facility] Laboratory [address] [place] [address] Hemoglobin Ql (U) Negative Normal Negative [facility] Comment on above: Performed By: #### 2 181232, 8582987, [id number] #### [facility] Laboratory [address] [place] [address] Ketones (U) [Mass/Vol] 1+ Abnormal Negative [facility] Comment on above: Performed By: #### 2 279251, 2477753, [id number] #### [facility] Laboratory [address] [place] [address] [place].plasma/[place]. RBC (Bld) [Mass ratio] 0-3 Normal 0-3 [facility] Comment on above: Performed By: #### 2 130699, 0480952, [id number] #### [facility] Laboratory [address] [place] [address] Nitrite Ql (U) Negative Normal Negative [facility] Comment on above: Performed By: #### 2 114769, 9363015, [id number] #### [facility] Laboratory [address] [place] [address] pH (U) 7.0 [pH] Invalid Interpretation Code 5.0-9.0 [facility] Comment on above: Performed By: #### 2 173250, 5979587, [id number] #### [facility] Laboratory [address] [place] [address] Protein (U) [Mass/Vol] Negative Normal Negative [facility] Comment on above: Performed By: #### 2 119383, 6437678, [id number] #### [facility] Laboratory [address] [place] [address] Specific gravity (U) [Rel density] 1.010 Invalid Interpretation Code 1.005-1.030 [facility] Comment on above: Performed By: #### 2 659225, 2724617, [id number] #### [facility] Laboratory [address] [place] [address] UA Spec Desc Clean Catch Normal [facility] Comment on above: Performed By: #### 2 611595, 6225207, [id number] #### [facility] Laboratory [address] [place] [address] Urobilinogen Qn (U) 0.2 {Henny'U}/dL Normal 0.0-1.0 [facility] Comment on above: Performed By: #### 2 653834, 4140012, [id number] #### [facility] Laboratory [address] [place] [address] WBC Auto Ql (U) 1+ Abnormal Negative [facility] Comment on above: Performed By: #### 2 959216, 1708894, [id number] #### [facility] Laboratory [address] [place] [address] WBC LM.HPF (Urine sed) [#/Area] 0-5 Normal 0-5 [facility] Comment on above: Performed By: #### 2 129014, 3201954, [id number] #### [facility] Laboratory [address] [place] [address] C Urineon 04-18-2020 Bacteria identified Cx Nom [...] R1: This test was performed at: [facility], [address] [place] [address], [address] , [place], Normal [facility] Comment on above: Performed By: #### 2 021842 ####[facility] [address] [place] [address] Obstetrics Office/Clinic Not jasmine 04-18-2020 Obstetrics Office/Clinic Note Chief Complaint OB 21w 5d, baby moving Obstetric History History (1,0,0,2) # 1 Baby 1 Outcome Date: 2008 Outcome: Live Outcome or Result: Vaginal Gender: Female Gest Age: 41 weeks Wt: 3232 g [place] [facility] [place] Labor: -- Child's Name: -- Baby's [...] trimester) Ordered: Office Visit Level 4 Est 92652 [place] 2. Obesity complicating , second trimester (O99.212: Obesity complicating , second trimester) Ordered: Office Visit Level 4 Est 29675 NC 3. 21 weeks gestation of (Z3A.21: 21 weeks gestation of ) Ordered: Office Visit Level 4 Est 09990 NC 4. Depression during (O99.340: Other mental disorders complicating , unspecified trimester) Ordered: Office Visit Level 4 Est 93330 NC Follow-up With When Contact Information Funmilayo ESCOBEDO MD In [address] [place] [address]- Additional Instructions: Problem List/Past Medical History Ongoing [...] pts pharmacy. Spoke with pt. She will black pickler this evening. Will repeat urine cx at next visit. Kendal Escobedo MD [facility] Comment on above: Result Comment: [...] Locations R1: This test was performed at: [facility], [address] [place] [address], [address]- , [place], [facility] Comment on above: Performed By: #### 2 530532 ####[facility] [address] [place] [address] HIV Screen 4th Generation wR fxon 04-16-2020 HIV 1+2 Ab+HIV1 p24 Ag IA Ql Non-Reactive Invalid Interpretation Code Non Reactive [facility] Comment on above: Result Comment: Perf ormed at: [facility] [address] [place], [place] [id number] PhD Lanette Dunn Performed By: #### 2 790919, 2732282, [id number] #### [facility] Laboratory [address] [place] [address] Hep Bs Agon 04-16-2020 HBV surface Ag IA Ql Negative Invalid Interpretation Code Negative [facility] Comment on above: Result Comment: Perf ormed at: [facility] [address] [place], [place] [id number] PhD Lanette Dunn Performed By: #### 2 502338, 2906041, [id number] #### [facility] Laboratory [address] [place] [address] Coding Summary.on 04-15-2020 Coding Summary. CODING DATE: [...] Saved: 04/15/2020 09:18 am Normal [facility] RPRon 04-15-2020 Reagin Ab RPR Ql (S) Non-Reactive Normal Non-Reactive [facility] Comment on above: Performed By: #### 9 [id number], 0294466, [id number] ####[facility] [address] [place] [address] ABO/Rhon 04-14-2020 ABO/Rh Positive Invalid Interpretation Code [facility] Comment on above: Performed By: #### 2 860570, [id number] #### [facility] Laboratory [address] [place] [address] ABSCon 04-14-2020 ABSC Gel Interp Negative Normal [facility] Comment on above: Performed By: #### 2 955471, [id number] #### [facility] Laboratory [address] [place] [address] Ambulatory Clinical Summaryo n 04-14-2020 Ambulatory Clinical Summary {[id number] [id number]}CD:[id number] Normal [facility] Auto Diffon 04-14-2020 Basophils/100 WBC (Bld) 0.3 % Normal 0.0-2.0 [facility] Comment on above: Order Comment: Order Added by Discern Expert. Performed By: #### 2 710284, 3462228, [id number] #### [facility] Laboratory [address] [place] [address] Basophils/Leukocytes Auto (Bld) [Pure # fraction] 0.0 E9/L Normal 0.0-0.2 [facility] Comment on above: Order Comment: Order Added by Discern Expert. Performed By: #### 2 933253, 0928244, [id number] #### [facility] Laboratory [address] [place] [address] Eosinophils/100 WBC (Bld) 0.3 % Normal 0.0-8.0 [facility] Comment on above: Order Comment: Order Added by Discern Expert. Performed By: #### 2 772163, 1858455, [id number] #### [facility] Laboratory [address] [place] [address] Eosinophils/Leukocytes Auto (Bld) [Pure # fraction] 0.0 E9/L Normal 0.0-0.5 [facility] Comment on above: Order Comment: Order Added by Discern Expert. Performed By: #### 2 652280, 5714806, [id number] #### [facility] Laboratory [address] [place] [address] Lymphocytes/100 WBC (Bld) 19.1 % Normal 14.0-50.0 [facility] Comment on above: Order Comment: Order Added by Discern Expert. Performed By: #### 2 267174, 2695729, [id number] #### [facility] Laboratory [address] [place] [address] Lymphocytes/Leukocytes Auto (Bld) [Pure # fraction] 1.4 E9/L Normal 1.0-4.0 [facility] Comment on above: Order Comment: Order Added by Discern Expert. Performed By: #### 2 100757, 9826876, [id number] #### [facility] Laboratory [address] [place] [address] Monocytes/100 WBC (Bld) 6.4 % Normal 4.0-14.0 [facility] Comment on above: Order Comment: Order Added by Id[employer] Expert. Performed By: #### 2 168543, 0743897, [id number] #### [facility] Laboratory [address] [place] [address] Monocytes/Leukocytes Auto (Bld) [Pure # fraction] 0.5 E9/L Normal 0.2-1.0 [facility] Comment on above: Order Comment: Order Added by Idalia Expert. Performed By: #### 2 684097, 6302360, [id number] #### [facility] Laboratory [address] [place] [address] Neutrophils/100 WBC (Bld) 73.9 % Normal 36.0-75.0 [facility] Comment on above: Order Comment: Order Added by Idalia Expert. Performed By: #### 2 498617, 7522283, [id number] #### [facility] Laboratory [address] [place] [address] Neutrophils/Leukocytes Auto (Bld) [Pure # fraction] 5.3 E9/L Normal 2.0-7.5 [facility] Comment on above: Order Comment: Order Added by Idalia Expert. Performed By: #### 2 230475, 2270032, [id number] #### [facility] Laboratory [address] [place] [address] BhCG Quanton 02-25-2021 [place] [address] m[IU]/mL High 1-3 [facility] Comment on above: Result Comment: GEST ATIONAL AGE HCG RANGE (mIU/mL) NON- <1-3 0.2-1 WEEKS 5-50 1-2 WEEKS 50-500 2-3 WEEKS 100-5,000 3-4 WEEKS 500-10,000 4-5 WEEKS 1,000-50,000 5-6 WEEKS 10,000-100,000 6-8 WEEKS 15,000-200,000 8-12 WEEKS 10,000-100,000 Performed By: #### 2 960020 #### [facility] Laboratory [address] [place] [address] CBC w/ Auto Diffon Erythrocyte distribution width (RBC) [Ratio] 13.0 % Normal 10.9-14.2 [facility] Comment on above: Performed By: #### 2 197767, 0885684, [id number] #### [facility] Laboratory [address] [place] [address] Hematocrit (Bld) [Volume fraction] 34.6 % Normal 34.0-46.0 [facility] Comment on above: Performed By: #### 2 587871, 9476563, [id number] #### [facility] Laboratory [address] [place] [address] Hemoglobin (Bld) [Mass/Vol] 11.6 g/dL Low 12.0-16.0 [facility] Comment on above: Performed By: #### 2 233478, 7611920, [id number] #### [facility] Laboratory [address] [place] [address] MCH (RBC) [Entitic mass] 29.8 pg Normal 27.0-34.0 [facility] Comment on above: Performed By: #### 2 756739, 5604324, [id number] #### [facility] Laboratory [address] [place] [address] MCHC (RBC) [Mass/Vol] 33.4 g/dL Normal 31.4-36.0 [facility] Comment on above: Performed By: #### 2 352078, 7001648, [id number] #### [facility] Laboratory [address] [place] [address] MCV (RBC) [Entitic vol] 89.2 fL Normal 80.0-100.0 [facility] Comment on above: Performed By: #### 2 064206, 2513476, [id number] #### [facility] Laboratory [address] [place] [address] Platelet mean volume (Bld) [Entitic vol] 7.8 fL Normal 6.4-10.8 [facility] Comment on above: Performed By: #### 2 828028, 7773864, [id number] #### [facility] Laboratory [address] [place] [address] Platelets (Bld) [#/Vol] 326.0 E9/L Normal 150.0-500.0 [facility] Comment on above: Performed By: #### 2 154411, 2920623, 123406786 #### [facility] Laboratory [address] [place] [address] RBC (Bld) [#/Vol] 3.9 E12/L Low 4.3-5.9 [facility] Comment on above: Performed By: #### 2 530631, 6165355, [id number] #### [facility] Laboratory [address] [place] [address] WBC corrected for nucl RBC Auto (Bld) [#/Vol] 7.2 E9/L Normal 4.0-11.0 [facility] Comment on above: Performed By: #### 2 229743, 2625760, [id number] #### [facility] Laboratory [address] [place] [address] Consent for Treatmenton 03-22 Consent for Treatment [id number] #1.00CD:127 Normal [facility] WbuI7uvh 04-14-2020 HbA1c (Bld) [Mass fraction] 4.8 % Normal <=5.9 [facility] Comment on above: Performed By: #### 2 661574, 9629197, [id number] #### [facility] Laboratory [address] [place] [address] Patient Educationon 04-14-19 21 Patient Education How [...] Document Reviewed: 07/23/2008 ExitCare? Patient Information ?2013 [employer] Obstetrics and Gynecology Eating Plan for Women [...] (more content not included)... Normal [facility] U Drug Screenon 04-14-2020 Amphetamines Screen method >1000 ng/mL Ql (U) Negative Normal Negative [facility] Comment on above: Result Comment: Nega tive Cutoff: <1000 ng/mL Performed By: #### 2 791143 #### [facility] Laboratory [address] [place] [address] Barbiturates Screen Ql (U) Negative Normal Negative [facility] Comment on above: Result Comment: Nega tive Cutoff: <200 ng/mL Performed By: #### 2 125215 #### [facility] Laboratory [address] [place] [address] Benzodiazepines Ql (U) Negative Normal Negative [facility] Comment on above: Result Comment: Nega tive Cutoff: <200 ng/mL Performed By: #### 2 664969 #### [facility] Laboratory [address] [place] [address] Cocaine Ql (U) Negative Normal Negative [facility] Comment on above: Result Comment: Nega tive Cutoff: <300 ng/mL Performed By: #### 2 707148 #### [facility] Laboratory [address] [place] [address] Opiates Screen Ql (U) Negative Normal Negative [facility] Comment on above: Result Comment: Nega tive Cutoff: <300 ng/mL Performed By: #### 2 420372 #### [facility] Laboratory [address] [place] [address] Phencyclidine Screen method >25 ng/mL Ql (U) Negative Normal Negative [facility] Comment on above: Result Comment: Nega tive Cutoff: <25 ng/mL These drug screen results are to be used for medical (i.e., treatment) purposes only. Unconfirmed drug screening results must not be used for non-medical purposes (e.g., employment testing, legal testing). Performed By: #### 2 874112 #### [facility] Laboratory [address] [place] [address] Tetrahydrocannabinol Screen method >50 ng/mL Ql (U) Negative Normal Negative [facility] Comment on above: Result Comment: Nega tive Cutoff: <50 ng/mL Performed By: #### 2 793096 #### [facility] Laboratory [address] [place] [address] RAD - Ultrasound Reporton RAD - Ultrasound Report [id number] #1.00CD:127 Normal [facility] Lab Reportson 03-14-2020 Lab Reports [id number] #1.00CD:127 Normal [facility] Ambulatory Clinical Summaryo n 02-29-2020 Ambulatory Clinical Summary {[id number]- [id number]-98}CD:[id number] Normal [facility] Ambulatory Clinical Summary {[id number]- 3a-73-[id number]}CD:[id number] Normal [facility] Obstetrics Office/Clinic Not jasmine 02-29-2020 Obstetrics Office/Clinic Note Chief Complaint OB 15w 2d, feeling flutters, occ. [place] Obstetric History History (1,0,0,2) # 1 Baby 1 Outcome Date: 2008 Outcome: Live Outcome or Result: Vaginal Gender: Female Gest Age: 41 weeks Wt: 3232 g [place] [facility] [place] Labor: -- Child's Name: -- Baby's [...] trimester) Ordered: Office Visit Level 4 Est 97260 TH 2. Obesity complicating , second trimester (O99.212: Obesity complicating , second trimester) Ordered: Office Visit Level 4 Est 84230 TH 3. 15 weeks gestation of (Z3A.15: 15 weeks gestation of ) Ordered: Office Visit Level 4 Est 05620 TH Follow-up With When Contact Information Funmilayo ESCOBEDO MD In [address] [place] [address]- Additional Instructions: Problem List/Past Medical [...] Dipstick: Negative (02/29/20 15:46:00) Normal [facility] Comment on above: Result Comment: Elec tronically Signed By: Funmilayo ESCOBEDO MD\.br\Date and Time Signed: 02/29/20 16:25 EST Patient Educationon 01-11-20 21 Patient Education Exercise During It is [...] Document Reviewed: 05/19/2009 ExitCare? Patient Information ?2013 [employer] [facility] Medicine How a Baby Grows During begins [...] (more content not included)... Normal [facility] Physician Referralon 021 Physician Referral [id number] #1.00CD:127 Normal [facility] RAD - Ultrasound Reporton RAD - Ultrasound Report [id number] [id number] #1.00CD:127 Normal [facility] Physician Referralon 020 Physician Referral [id number] #1.00CD:127 Normal [facility] Physician Referralon 020 Physician Referral [id number] #1.00CD:127 Normal [facility] Chlamydia/Gonococcus, NAAon 01-30-2020 C. trachomatis rRNA KAIDEN+probe Ql (Unsp spec) Negative Invalid Interpretation Code Negative [facility] Comment on above: Performed By: #### 2 161391, 7708810, [id number] #### [facility] Laboratory [address] [place] [address] N. gonorrhoeae rRNA KAIDEN+probe Ql (Unsp spec) Negative Invalid Interpretation Code Negative [facility] Comment on above: Result Comment: Perf ormed at: =[facility] [address], [place] [id number] MD Kehinde Rivero Performed By: #### 2 803951, 9446189, [id number] #### [facility] Laboratory [address] [place] [address] Coding Summary.on 01-29-2020 Coding Summary. CODING DATE: [...] Saved: 01/29/2020 01:52 pm Normal [facility] Ambulatory Clinical Summaryo n 01-27-2020 Ambulatory Clinical Summary {[id number]-b9-26}CD:[id number] Normal [facility] Obstetrics Office/Clinic Not jasmine 01-27-2020 Obstetrics Office/Clinic Note Chief Complaint 1st OB 10 Weeks 4 days. Some Nausea. Obstetric History History (1,0,0,2) # 1 Baby 1 Outcome Date: 2008 Outcome: Live Outcome or Result: Vaginal Gender: Female Gest Age: 41 weeks Wt: 3232 g [place] [facility] [place] Labor: -- Child's Name: -- Baby's [...] drug use. Last pap 2--18, NILM. 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 Review of Systems Constitutional: No fever, No [...] (more content not included)... Normal [facility] Comment on above: Result [...] Document Reviewed: 07/23/2008 ExitCare? Patient Information ?2013 [employer] [facility] Patient [facility] January 27, [address] [address] MYA MYLES 1990 Our patient Mya Myles is with a single IUP. EDC is 08/20/[address] [address] [facility] Coding Summary.on 01-22-2020 Coding Summary. CODING DATE: 01/22/2020 FINAL [facility] STATUS: Home (Routine DC) PAYOR: [...] Gloria Fleming Date Saved: 01/22/2020 08:46 am [facility] US 1st Trimesteron 01-11-2020 US 1st Trimester [...] corresponding gestational age +/- 1 week are: [place] Rump Length: 1.8 cm Composite Ultrasound Age: [...] Signature): 01/11/2020 11:44 am Signed by: Julia Sácnhez MD Transcribed by: ERMELINDA Technologist: ADEN Technical Comments Regular History 3 Para 2 SAB 1 Transabdominal Ultrasound Performed Size = Dates Normal [facility] Ambulatory Clinical Summaryo n 01-07-2020 Ambulatory Clinical Summary {[id number] [id number]}CD:[id number] Normal [facility] [facility] Clinical Summaryo n 01-06-2020 Ambulatory Clinical Summary {[id number]-[id number]}CD:[id number] Normal [facility] Quanton 01-06-2020 HCG.beta subunit Qn 259513 m[IU]/mL High 1-3 [facility] Comment on above: Result Comment: GEST ATIONAL AGE HCG RANGE (mIU/mL) NON- <1-3 0.2-1 WEEKS 5-50 1-2 WEEKS 50-500 2-3 WEEKS 100-5,000 3-4 WEEKS 500-10,000 4-5 WEEKS 1,000-50,000 5-6 WEEKS 10,000-100,000 6-8 WEEKS 15,000-200,000 8-12 WEEKS 10,000-100,000 Performed By: #### 2 [id number], [id number], [id number] #### [facility] Laboratory [address] [place] [address] Consent for Treatmenton 12-19 Consent for Treatment [id number] 01 [id number] #1.00CD:127 Normal [facility] Gynecology Office/Clinic Not jasmine 01-06-2020 Gynecology Office/Clinic Note Chief Complaint Confirmation of , Nausea Some Vomitting. Has had Dark pink Spotting, First OB paper work added . Obstetric History History (1,0,0,2) # 1 Baby 1 Outcome Date: 2008 Outcome: Live Outcome or Result: Vaginal Gender: Female Gest Age: 41 weeks Wt: 3232 g [facility] [facility] Labor: -- Child's Name: -- Baby's [...] order subsequent US. Plan to refer to [facility] d/t hx child with congenital lymphedema. [...] test, result positive) Ordered: HCG, Urine POC [id number] Follow-up No qualifying data available Problem List/Past [...] Point of Care Results HCG, Urine: Positive (11/18/20 09:31:00) Normal [facility] Comment on above: Result Comment: Elec tronically Signed By: RHONDA DICKEY, Caroline\.rosey\Date and Time Signed: 01/06/20 10:17 EST Progesteroneon 01-06-2020 Progesterone [Mass/Vol] 18.00 ng/mL Invalid Interpretation Code [facility] Comment on above: Result Comment: REFE RENCE RANGE Males 0.14-2.06 ng/mL Non- Females Follicular 0.10-0.60 ng/mL Luteal 3.00-17.5 ng/mL Midluteal 3.30-18.6 ng/mL Post-Menopausal 0.10-0.40 ng/mL First Trimester 8.30-66.5 ng/mL Second Trimester 18.9-66.1 ng/mL Third Trimester 35.8-312.4 ng/mL Performed By: #### 2 [id number], [id number], [id number] #### [facility] Laboratory [address] [place] [address] Coding Summary.on 12-14-2019 Coding Summary. CODING DATE: [...] Saved: 12/14/2019 02:13 pm Normal [facility] ED Note-Physicianon 12-14-19 20 ED Note-Physician Basic Information Time Seen: Kate MESA, Gege Lechuga 12/13/2019 19:14 Chief Complaint pt to ED with c/o consuming plastic from a burger at [employer] today. pt is . denies complaints History of Present Illness This patient presents emergency department after ingesting some type of plastic while eating a sandwich at [employer]. She states she was at [employer] restaurant. She bit down on something hard [...] Chao Blackwell In 3 days 12/16/[address] [place] [id number] [facility] (1) Additional Instructions: Patient Education Swallowed Foreign Body, Adult, Judp-xn-Pepn Problem List/Past Medical History Ongoing Ovarian cyst Historical Medications Inpatient No active inpatient medications Home Bactroban 2% Cream, 1 ced, Topical, TID Guatay 325 mg-5 mg oral tablet, 1 tab(s), Oral, q4hr, PRN Allergies No Known Allergies Social History Alcohol - Denies Alcohol Use, 11/21/2009 Substance Abuse - Denies Substance Abuse, 11/21/2009 Tobacco - Denies Tobacco Use, 11/21/2009 Family History Diabetes mellitus type 2: Mother and Father. Hypertension: Mother and Father. Lab Results No qualifying data available. Diagnostic Results No qualifying data available. [facility] Comment on above: Result Comment: Elec tronically Signed By: Gege Love PA-C\.br\Date and Time Signed: 12/13/19 19:34 EDT\.br\Electronically Co-Signed By: Ed Jerome MD\.br\Date and Time Co-Signed: 12/14/19 05:14 EDT Consent for Treatmenton 11-19 Consent for Treatment [id number] 01 [id number] #1.00CD:127 Normal [facility] Discharge Instructionson Discharge Instructions [id number] 1#1.00CD:127 Normal [facility] ED Clinical Summaryon 2019 ED Clinical Summary [place] [id number] ED Clinical Summary Person Information Name: MYA MYLES [place] Age: 29 Years : 1990 Sex: Female Language: Slovak PCP: Chao Blackwell III, DO Marital Status: [...] 12/13/2019 19:44:03 12/13/2019 19:44:03 12/13/2019 19:44:03 ADDRESS: [address] [place] [address] [address] [place] [id number] PHYS DOC NOTES: MEDICAL INFORMATION: Prescriptions Given: Medications to Continue with No Changes Other Medications acetaminophen-hydroc odone (Guatay 325 mg-5 mg oral tablet) 1 Tablets By Mouth every 4 hours as needed for pain. Refills: 0. mupirocin topical (Bactroban 2% Cream) 1 Application Topical 3 times a day. Refills: 0. PATIENT EDUCATION INFORMATION: Instructions: Swallowed Foreign Body, Adult, Rzhm-ie-Irts Follow up: With: Address: When: Chao Blackwell [address] [place] [address] [place] [address] Business (1) In 3 days 12/16/2019 DIAGNOSIS: 1:Ingestion of foreign body Normal [facility] ED Patient Education Noteon [...] Document Reviewed: 05/22/2011 ExitCare? Patient Information ?2015 [employer] This information is not intended to replace advice given to you by your health care provider. Make sure you discuss any questions you have with your health care provider. Normal [facility] ED Patient Summaryon 020 ED Patient Summary [address] [address] Patient Discharge Instructions Person Information Name: MYA MYLES Age: 29 Years Arrival Date: 12/13/2019 18:29:24 Discharge Diagnosis: 1:Ingestion of foreign body Primary Care Physician: Chao Blackwell III, DO Provider Information Primary Provider: [employer] Dispatcher:None The exam and treatment you received in the Emergency Department were for an urgent problem and are not intended as complete care. It is important that you follow up with a doctor, nurse practitioner, or physician?s clinical physician assistant for ongoing care. If your symptoms [...] Follow-up Instructions: With: Address: When: Chao Blackwell [address] [facility] [address], [place] [address] Business (1) In 3 days 12/16/2019 In the event that this physician does not participate in your insurance network, please consult with your insurance company to find a nearby participating provider. Patient Education Materials: Swallowed Foreign Body, Adult, Vlgb-qd-Lndm A MESSAGE TO ALL PATIENTS REGARDING OPIOIDS PRESCRIPTION OPIOIDS: WHAT YOU NEED TO KNOW Prescription opioids can be used to help relieve xqfebmbd-zf-qskyve pain and are often prescribed following a [...] be struggling with addiction, tell your health residential caregiver and ask for guidance or call [facility] National Helpline at 0-916-429-ACIA. (more content not included)... Normal [facility] Vital Signs Date Time Vital Sign Value Performing Clinician Rene hernandez 12-12-2023 09:52-0400 Body mass index (BMI) [Ratio] 35.48 kg/m2 Nadanu Work Phone: [facility] [employer] 12-12-2023 09:52-0400 Body weight 88 kg Nadanu Work Phone: [facility] 12-12-2023 09:52-0400 Diastolic blood pressure 68 mm[Hg] DevenAutotether Work Phone: [facility] [employer] 12-12-2023 09:52-0400 Systolic blood pressure 110 mm[Hg] Nadanu Work Phone: [facility] [employer] 11-27-2023 15:35-0400 Body mass index (BMI) [Ratio] 34.57 kg/m2 Catherine TRACY Work Phone: [facility] [employer] 11-27-2023 15:35-0400 Body weight 85.73 kg Catherine TRACY Work Phone: [facility] [employer] 11-27-2023 15:35-0400 Diastolic blood pressure 76 mm[Hg] Catherine TRACY Work Phone: [facility] 11-27-2023 15:35-0400 Systolic blood pressure 114 mm[Hg] Catherine TRACY Work Phone: [facility] Healthcare Encounters Encounter Date Encounter Type Care Provider Facility Start: 12-12-2023 End: 12-12-2023 Bamboo flowsheet Deven Russel DO Work Phone: [facility] Start: 12-12-2023 End: 12-12-2023 Bamboo flowsheet Deven Russel DO Work Phone: [facility] Start: 12-12-2023 End: 12-12-2023 ambulatory DEVEN RUSSEL Not Available Start: 12-12-2023 End: 12-12-2023 flow sheet Deven Russel DO Work Phone: [facility] Comment on above: Third trimester preg faina; 34 weeks gestation of ; Accessory placenta, third trimester Start: 12-09-2023 End: 12-09-[address] [facility] Start: 12-06-2023 End: 12-06-[address] [facility] Start: 12-04-2023 End: 12-04-2023 Office consultation new/estab patient 40 min Alysia Lee MD Work Phone: [facility] Comment on above: Obesity affecting pr egnancy in second trimester, unspecified obesity type (Primary Dx); Polyhydramnios, antepartum, single or unspecified fetus Start: 12-04-2023 End: 12-04-2023 ambulatory [facility] Start: 11-27-2023 End: 11-27-2023 ambulatory CATHERINE BAEZA Not Available Start: 11-27-2023 End: 11-27-2023 flow sheet Catherine TRACY Work Phone: [facility] Comment on above: 32 weeks gestation o f ; Third trimester ; Dysuria Start: 11-27-2023 End: 11-27-2023 Bamboo flowsheet Catherine TRACY Work Phone: [facility] Start: 11-27-2023 End: 11-27-2023 Bamboo flowsheet Catherine TRACY Work Phone: [facility] Start: 11-14-2023 End: 11-14-2023 ambulatory DEVEN RUSSEL Not Available Start: 10-24-2023 End: 10-24-2023 ambulatory DEVEN RUSSEL Not Available Start: 10-08-2023 End: 10-08-2023 ambulatory DEVEN R RUSSEL [facility] Start: 09-09-2023 End: 09-09-2023 ambulatory CATHERINE BAEZA Not Available Start: 09-06-2023 End: 09-06-2023 [facility] Start: 08-12-2023 End: 08-12-2023 ambulatory DEVEN RUSSEL Not Available Start: 07-30-2023 End: 07-30-2023 ambulatory LADONNA MOBLEYM Not Available Start: 07-08-2023 End: 07-08-2023 ambulatory [...] Author Start: 12-03-2024 Tobacco Screening Tobacco Screening [facility] Start: 09-05-2024 Adult BMI Screening Adult BMI Screen ing [facility] Start: 12-25-2023 End: 12-25-2023 Patient encounter procedure 12/25/2023 3:50 PM EST Routine [facility] [address] [place] [id number] Catherine Baeza PA [address] [facility] [address] [place], [facility] Start: 12-12-2023 End: 12-12-2023 Patient encounter procedure 12/12/2023 9:30 AM EDT Routine [facility] [address] [facility] [facility] [place] [address] Deven Goode DO [address] [facility] [address] [place] Kapoor, [facility] Start: 10-20-2023 Influenza vaccination Influenza Vacc ine [facility] Start: 10-20-2019 Influenza vaccination Flu vaccine (# 1) [place], [place] Start: 2013 Screening for malign ant neoplasm of cervix Pap Smear [facility] Start: 06-01-2011 DTaP,Tdap and Td Vaccines (1 - Tdap) DTaP,Tdap and Td Vaccines (1 - Tdap) [facility] Start: 2010 Adult BMI Follow Up Plan Adult BMI Follow Up Plan [facility] Start: 2004 [facility] identified [facility] Urine by Culture Urine culture Microbiology Routine Dysuria Ordered: 11/27/2023 [facility] Work Phone: Comment on above: Ordered: 11/27/2023 Payers Date Payer Category Payer Blue Cross Blue Shield BCBS [id number] 2022 Blue Cross Blue [facility] Other ANTHEM [id number] 2022 Unknown BCBS BCBS xxxxxx [id number] 2022-Present [phone] [id number] [place], [place] [id number]. [id number] 2022 Unknown [id number] 1990 Unknown [id number] 2.16.840.1.315379.3.579.2. 593 1992 Unknown [id number] 2.16.840.1.207790.3.579.2. 593 1992 Unknown [id number] 2.16.840.1.775927.3.579.2. 1286 1992 Unknown [id number] 2.16.840.1.009882.3.579.2. 6 1992 Unknown [id number] 2.16.840.1.298151.3.579.2. 1285 1992 Unknown [id number] 2.16.840.1.533992.3.579.2. 1285 1992 Unknown [id number] 2.16.840.1.484750.3.579.2. 1285 1992 Unknown [id number] 2.16.840.1.179735.3.579.2. 9 1992 Unknown [id number] 2.16.840.1.643396.3.579.2. 1258 1992 Unknown [id number] 2.16.840.1.971740.3.579.2. 9 1992 Unknown [id number] 2.16.840.1.462290.3.579.2. 1258 1992 Unknown [id number] 2.16.840.1.855740.3.579.2. 9 1992 Unknown [id number] 2.16.840.1.296662.3.579.2. 1258 1992 Unknown [id number] 2.16.840.1.110022.3.579.2. 9 1992 Unknown [id number] 2.16.840.1.524357.3.579.2. 1258 1992 Unknown [id number] 2.16.840.1.722137.3.579.2. 9 1959 Unknown [id number] Social History Date Type Detail [facility]: 1990 [facility] Start: 07-30-2023 End: 09-06-2023 Tobacco smoking status NHIS Never smoked tobacco [facility] Start: 07-30-2023 End: 09-06-2023 Tobacco use and exposure Smokeless tobacco non-user [facility] Start: 07-30-2023 End: 12-04-2023 History of Social function [facility] Start: 07-30-2023 End: 12-04-2023 Tobacco use panel [facility] Start: 05-01-2023 [facility] Start: 12-04-2023 Alcoholic beverage intake Ex-drinker (finding) [facility] Within the past 12 months we worried whether our food would run out before we got money to buy more. Never True [facility] Start: 08-15-2023 Sex Female (finding) [facility] Clinical Notes 04-21-2020 to 12-12-2023 Bindu Bravo LPN - 12/12/2023 9:30 AM EDTTelephone Encounter - [address] - 12/09/2023 [...] Diagnosis Date ADHD (attention deficit hyperactivity disorder) (CMS/HCC) HISTORY PAST MEDICAL HISTORY SOCIAL HISTORY Past Medical History: Diagnosis Date ADHD (attention deficit hyperactivity disorder) (CMS/HCC) Social History Tobacco Use Smoking status: Never [...] nursing note reviewed. Exam conducted with a recruiter account manager present. Vitals: Estimated body mass index is [...] antibiotic for UTI. Patient voiced that at [facility] they discussed extra fluid & reassurance [...] Deven Goode DO documented in this encounter [facility] 12-09-2023 Miscellaneous Notes I LEFT A MESSAGE FOR PT TO CALL ME, I WILL CALL PT BACK TO SCHEDULE HER FOR A GROWTH U/S, ALSO A VIDEO VISIT WITH ONE OF THE DRS documented in this encounter [facility] 12-09-2023 Telephone encounter Note I LEFT A MESSAGE FOR PT TO CALL ME, I WILL CALL PT BACK TO SCHEDULE HER FOR A GROWTH U/S, ALSO A VIDEO VISIT WITH ONE OF THE DRS [facility] 12-06-2023 Miscellaneous Notes I LEFT A MESSAGE FOR PT TO CALL ME SO WE CAN SCHEDULE A GROWTH U/S. PT THINKS SHE ONLY NEEDS U/S AT PRIMARY OB OFFICE. CATHERINE Shahid SAID SHE NEEDS TO COME HERE. THANK YOU documented in this encounter [facility] 12-06-2023 Telephone encounter Note I LEFT A MESSAGE FOR PT TO CALL ME SO WE CAN SCHEDULE A GROWTH U/S. PT THINKS SHE ONLY NEEDS U/S AT PRIMARY OB OFFICE. CATHERINE Zehra SAID SHE NEEDS TO COME HERE. THANK YOU [facility] 12-04-2023 History of Presen t illness [...] mouth in the morning., Disp: , Rfl: sw590-gkca-ioegq acid ( 19) 29 mg iron- 1 [...] ALYSIA LEE MD documented in this encounter [facility] 11-27-2023 History of Presen t illness [...] Diagnosis Date ADHD (attention deficit hyperactivity disorder) ([facility]) HISTORY PAST MEDICAL HISTORY SOCIAL HISTORY Past Medical History: Diagnosis Date ADHD (attention deficit hyperactivity disorder) ([facility]) Social History Tobacco Use Smoking status: [...] Patient scheduled for US NEXT WEEK WITH MFM, orders for nst and bpp sent for starting Orders Placed This Encounter Procedures POCT urinalysis dipstick manually resulted Follow Up: Patient is to return to office in 2 weeks for routine OB appointment. Documented by Leah Mason on behalf of: DEMARCUS Ross documented in this encounter [facility] 08-16-2020 Note DATE OF DISCHARGE: 0 08/05/2020 [...] complications. Course: Without complications. Sukhdeep Schaffer MD, [facility] Dictated: 08/13/2020 #[id number] Typed: 08/15/2020 #[id number] cc: Sukhdeep Schaffer MD, [facility] Comment on above: Result Comment: Elec tronically Signed By: Sukhdeep Schaffer MD\.br\Date and Time Signed: 08/16/20 08:09 EDT 08-05-2020 Note The following Patien t Education Materials have been given to the patient: EducationMaterial [facility] 08-04-2020 Note Patient: LAZARO MYLES Age: 30 [...] Attention deficit hyperactivity disorder / SNOMED CT 2805337955 / Confirmed Chronic fatigue syndrome / SNOMED CT 84926754 / Confirmed Depression during / SNOMED CT 0108221049 / Confirmed Insomnia / SNOMED CT 144393595 / Confirmed Obesity / ICD-9-CM 278.00 / Possible Obesity complicating , third trimester / SNOMED CT 6761881011 / Confirmed Ovarian cyst / SNOMED CT 831080867 / Confirmed / SNOMED CT 718925511 / Confirmed labor / Patient Care / Confirmed Supervision of high risk in third trimester / SNOMED CT 39968478 / Confirmed Histories History History (1,0,0,2) # 1 Baby 1 Outcome Date: 2008 Outcome: Live Outcome or Result: Vaginal Gender: Female Gest Age: 41 weeks Wt: 3232 g Hospital: [facility] Labor: -- Child's Name: -- Baby's [...] Use (11/21/2009) DENIES 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 Home/Environment Lives with Children, Significant other. [...] mu (more content not included)... [facility] Comment on above: Result Comment: Elec tronically Signed By: LAURA MACEDO, Funmilayo Stallings\Date and Time Signed: 08/04/20 13:03 EDT 07-31-2020 Note The following Patien t Education Materials have been given to the patient: [facility] 07-26-2020 Note The following Patien t Education Materials have been given to the patient: [facility] 07-11-2020 Note HOSPITAL REGULATIONS : ALL [...] for further cervical progression. Sukhdeep Schaffer MD, [facility] Dictated: 07/08/2020 #[id number] Typed 07/08/2020 #[id number] cc: [facility] Comment on above: Result Comment: Elec tronically Signed By: Karime MACEDO, Sukhdeep Olivera\.br\Date and Time Signed: 07/11/20 07:40 EDT 07-08-2020 Note The following Patien t Education Materials have been given to the patient: [facility] 04-21-2020 Note The following Patien t Education Materials have been given to the patient: [facility] Evaluation note Diagnosis 32 weeks gestation of Third trimester state, incidental Dysuria [facility] Diagnosis Obesity affecting in second trimester, unspecified obesity type- Primary Polyhydramnios, antepartum, single or unspecified fetus documented in this encounter [facility]* Diagnosis Third trimester state, incidental 34 weeks gestation of Accessory placenta, third trimester documented in this encounter [facility] HealthcareInstructionsNot on filedocumented in this encounterProW[facility]umed[facility] SystemInstructionsNot on filedocumented in this [facility] Summary Purpose Family History No Family History Records FoundNo Family History Records FoundNo Family History Records FoundNo Family History Records Found Advance Directives No Advanced Directives Records FoundNo Advanced Directives Records FoundNo Advanced Directives Records FoundNo Advanced Directives Records Found Additional Source Comments INFORMATION SOURCE (unrecogn ized section and content) DATE CREATED AUTHOR 09/15/2020 [facility] DATE CREATED AUTHOR AUTHOR'S ORGANIZ ATION 06/29/2022 [facility] DATE CREATED AUTHOR AUTHOR'S ORGANIZ ATION 12/07/2023 [facility] DATE CREATED AUTHOR AUTHOR'S ORGANIZ ATION 12/13/2023 [facility] EPIC Reason for Visit (unrecogniz ed section and [...] BE BASED ON THE PRIMARY CLINICAL RECORDS. [facility] [address] [employer] [facility]. provides no warranty or guarantee of the accuracy or completeness of information in this document.
--- NOTE | 2023-12-17 18:19 | US_ITS ---
[address] [address] Patient Name: MYA CASTANEDA MRN: [id number] date: 1990 Sex: F Assigned Patient Location: [facility] Current Patient Location: Accession/Order Number: [id number] Exam Date: 12/17/2023 18:26 Report Date: 12/18/2023 06:25 At the request of: ROCK HARRISON Procedure: US OB growth EXAMINATION: US OB growth HISTORY: EXCESSIVE GROWTH AFFECTING O36.60X0 COMPARISON: Ultrasound OB growth 11/18/2023 FINDINGS: Heart Rate: 134.33 bpm Amniotic Fluid Volume: 13.4 cm; normal range Number: 1 Position: CEPHALIC BIOMETRY: BPD: 8.96 cm; 36 weeks 2 days; 86.70 % HC: 33.89 cm; 39 weeks 0 days; 96.30 % AC: 35.29 cm; 39 weeks 1 day; >97 % FL: 6.61 cm; 34 weeks 0 days; 21.80 % EFW: 3276.46 g; >97 % FL/AC: 18.73 FL/BPD: 73.75 HC/AC: 0.96 GESTATIONAL AGE: Age by EDC: 34 weeks 6 days CLIFFORD by EDC: 2024-01-22 Age by US: 37 weeks 1 day CLIFFORD by US: 2024-01-06 US/US OB growth IMPRESSION: 1. Single live intrauterine with growth detailed above. 2. Estimated weight is greater than 97th percentile. Electronically authenticated by: LAURA COATES Date: 12/18/2023 06:25
--- NOTE | 2023-12-17 18:19 | US_ITS ---
[address] [address] Patient Name: MYA CASTANEDA MRN: [id number] date: 1990 Sex: F Assigned Patient Location: US Current Patient Location: Accession/Order Number: [id number] Exam Date: 12/17/2023 18:26 Report Date: 12/18/2023 06:23 At the request of: ROCK HARRISON Procedure: US OB BPP w non-stress EXAMINATION: US OB BPP w non-stress HISTORY:EXCESSIVE GROWTH AFFECTING O36.60X0 COMPARISON: Ultrasound OB biophysical 12/10/2023 TECHNIQUE: Ultrasound biophysical profile was performed in the radiology department. BREATHING MOVEMENTS: 2 GROSS BODY MOVEMENTS: 2 TONE: 2 QUALITATIVE AMNIOTIC FLUID VOLUME: 2 PRESENTATION: CEPHALIC HEART RATE: 134.33 bpm AMNIOTIC FLUID VOLUME: 13.43 cm GESTATIONAL AGE: 34 weeks 6 days US/US OB BPP w non-stress IMPRESSION: Total biophysical profile score: 8 Electronically authenticated by: LAURA COATES Date: 12/18/2023 06:23
[2023-12-17 19:09] VITALS: BP 106/59; PULSE 75
== END 2023-12-17 19:44 | disposition home or self-care (01) ==
LOC: US 07:20 → FBC 18:21
PROVIDERS: Visit Provider Obstetrics & Gynecology
DX: O36.63X0 Maternal care for excessive fetal growth, third trimester, not applicable or unspecified (principal); Z3A.34 34 weeks gestation of pregnancy
CPT/HCPCS: 76816; 76818

== ENCOUNTER 2023-12-24 07:24 | Outpatient (OUT) | payer BC, SELFPAY ==
--- OUTSIDE RECORDS SUMMARY | 2023-12-24 07:27 | XMS_ITS | CCD ---
Author Organization [facility] Care Team Providers Care [employer] Glove Shaper Name Role Phone Unavailable Primary Care Provider Unavailabl e RUSSEL ., DR WILKERSON Admitting Unavailable RUSSEL ., DR WILKERSON Attending Unavailable RUSSEL ., DR WILKERSON Consulting Unavailable [place], DR IRENE Dee Consulting Unavailable RUSSEL ., DR WILKERSON Attending Unavailable RUSSEL ., DR WILKERSON Admitting Unavailable RUSSEL ., DR WILKERSON Consulting Unavailable Unavailable Primary Care Provider Unavailabl e Unavailable Primary Care Provider Unavailabl e RUSSEL, DEVEN R Referring Unavailable MOUSSA, RY NADBUNNY Attending Unavailable CHARLOTTE VELASCO Referring Unavail able RUSSEL, DEVEN R Referring Unavailable MARINA MARTINEZ Attending Unavailable RUSSEL, DEVEN R Referring Unavailable ALYSIA LEE Attending Unavailable RUSSEL, DEVEN R Referring Unavailable RUSSEL, DEVEN Attending Unavailable LADONNA CEBALLOS Attending Unavailable RUSSEL, DEVEN Attending Unavailable ARYAN, CATHERINE Attending Unavailable RUSSEL, DEVEN Attending Unavailable RUSSEL, DEVEN Attending Unavailable ARYAN, CATHERINE Attending Unavailable RUSSEL, DEVEN Attending Unavailable Medications Current Medications Medication Drug Class(es) Dates Sig (Normalized) Sig (Original) aspirin 81 mg delayed release oral tablet (6 sources) Platelet Aggregation Inhibitor, Nonsteroidal Anti-inflammatory Drug [...] 7 days. 21 capsule 11/27/2023 12/04/2023 Active [id number] acid ( 19) 29 mg iron- 1 mg tablet,chewable (4 sources) [id number] acid ( 19) 29 mg iron- 1 [...] Polyhydramnios and other problems of amniotic cavity (6 sources) Polyhydramnios with problem; Translations: [Polyhydramnios, unspecified [...] Negative - 4(70) +++ mg/dL [facility] Blood, UA Positive Negative - 50 [place]/mcL [facility] Comment on above: trace Clarity, UA Clear [facility] Color, UA Yellow [facility] Glucose, UA Negative Negative - 1999(110) ++++ mg/dL [facility] Interpretation and review of laboratory results Abnormal [facility] Ketones, UA Negative Negative - 160(16) ++++ mg/dL [facility] Leukocytes, UA Negative Negative - 500+++ Saeed/mcL [facility] Nitrite, UA Negative Negative - Positive [facility] pH, UA 7 5 - 9 [facility] Protein, UA Negative Negative - 1999(20) ++++ mg/dL [facility] Spec Grav, UA 1.02 1 - 1.03 [facility] Urobilinogen, UA 0.2 0.2 - 12 mg/dL [facility] Glucose random or fasting- P OCTon 12-04-2023 External Glucose Fasting Or Random (Fbs) 126 [facility] POCT Hemoglobin A1con 2023 HbA1c (Bld) [Mass fraction] 5.1 % 4 - 7 % [facility] Urinalysis macro (dipstick) panel (U)on 11-27-2023 Bilirubin, UA Negative Negative - 4(70) +++ mg/dL [facility] Blood, UA Negative Negative - 50 [place]/mcL [facility] Clarity, UA Cloudy [facility] Color, UA Yellow [facility] Glucose, UA Negative Negative - 1999(110) ++++ mg/dL [facility] Interpretation and review of laboratory results Normal [facility] Ketones, UA Negative Negative - 160(16) ++++ mg/dL [facility] Leukocytes, UA Negative Negative - 500+++ Saeed/mcL [facility] Nitrite, UA Negative Negative - Positive [facility] pH, UA 7.0 5 - 9 [facility] Protein, UA Negative Negative - 1999(20) ++++ mg/dL [facility] Spec Grav, UA 1.025 1 - 1.03 [facility] Urobilinogen, UA 0.2 0.2 - 12 mg/dL [facility] PAP ACOG PANEL 2: 21 to 29on 05-24-2022 . . Normal [facility] Comment on above: Performed By: #### [id number] #### [facility] [address] [place] [address] Dr. Michael Garrett Age Gdln ACOG Testing 21-29 [facility] Comment on above: Performed By: #### [id number] #### [facility] [address] [place] [address] Dr. Michael Garrett DIAGNOSIS: Comment [facility] Comment on above: Result Comment: NEGA TIVE FOR INTRAEPITHELIAL LESION OR MALIGNANCY. CELLULAR CHANGES ASSOCIATED WITH INFLAMMATION ARE PRESENT. Performed By: #### [id number] #### [facility] [address] [place] [address] Dr. Michael Garrett Methodology: Comment [facility] Comment on above: Result Comment: This liquid based ThinPrep(R) pap test was screened with the use of an image guided system. Performed By: #### [id number] #### [facility] [address] [place] [address] Dr. Michael Garrett Note: Comment [facility] Comment on above: Result Comment: The Pap smear is a screening test designed to aid in the detection of premalignant and malignant conditions of the uterine cervix. It is not a diagnostic procedure and should not be used as the sole means of detecting cervical cancer. Both false-positive and false-negative reports do occur. . Performed By: #### [id number] #### [facility] [address] [place] [address] Dr. Michael Garrett Performed by: Comment Normal [facility] Comment on above: Result Comment: Francisco Otero, Associate Professor Of Church Music (ASCP) Performed By: #### [id number] #### [facility] [address] [place] [address] Dr. Michael Garrett Reflex Criteria: Comment [facility] Comment on above: Result Comment: The HPV DNA reflex criteria were not met with this specimen result therefore, no HPV testing was performed. . Performed By: #### [id number] #### [facility] [address] [place], [place] [address] Dr. Michael Garrett Specimen adequacy: Comment Normal [facility] Comment on above: Result Comment: Sati sfactory for evaluation. Endocervical and/or squamous metaplastic cells (endocervical component) are present. Performed By: #### [id number] #### [facility] [id number] Michael Garrett US PELVIS AND TRANSVAGon [...] by: IRENE ZUÑIGA Date: 2022-05-18 07:45 Normal [facility] Nursing Assessmenton 021 Nursing Assessment [id number] Normal [facility] Coding Summary.on 08-16-2020 Coding Summary. CD:[id number] Gh0bWw+PGhlYWQ+PE1FV FSyR34ooAHidH3WT0kVH R6CIPLWEDBIYK0QWS0vy RP0HMuvL8VajrTu PfingRWdVS61MEl1RNZ5 tDinCRkicZ1icPCsB1j4 TbFmAE36uA18JHnkQXDh XjR8DlVcfroypKVx J1kiIuDhpCGaGyt+PHRh YmxlIHdpZHRoPScxMDAl SxGocHywMV5mQv8qBCVk LWNvbGxhcHNlOiBj j2xeFJLzECoeXD6vzKwy I1WkwRD5KWHye1w5Sm59 dHI+FFCqPNP4jHawCDtd u538AhTgi5juQIJ3 pDIjHLamEAH3J38ul5P9 NXTiKBHlYXC5tVO3hL2i oCniyulyI6ZkkTRxMwW4 LIM7kOIxwZ9rvAmz iozkpI3eYoe+P40AHN0S ASGKKG0IVsg8O5GfEqkk dHI+BM99YRJzNB06jTYg aODgc9nxiJu7PsVk HEYpHTX8hObvRYnug4Vo HAGtL13rjDYsd5D7LCLu kGlmuLSoDgVxwJB0yC9q MDcyykfkl5qryaqp Ycqgy7wyoz75zR73G03m IXztYFQvSXY7YNLeQHCd xSqwof9uxH9dKh1+IDxj s7eng1kcoPr6UkYt BNQdtcQsqNixFZI2e6Ax Zp87X6MeqTrhs0FbZqr9 xk18zDNnr4K7oJQ5ZMbi JBAcjG2gOViwBqC4 OZXwIoXgsR11kVMhYLbj Mr3cgRfwoTlkZK0aSYNl cdmbURKprI4uKYIasZVu vTrfRH4iELInfwhl u057GaDoKBY1JLXimWVu N1XxfD6bYtFnMHLiFBIc I3DeiHZyZNcjL868OPuc NtT2JGUqnjKgY1Fp CDDdlWffZjM8g7O7Jq8N j6AejjglLIF0LEhePWI6 NcY2KhMxHmS2U3YaYyi3 GTXohIytBM2oO6Mq NRHmblrmpnqrgNO2ZXBi KZQcjC30bAGiWVzqWp3c j4C9f030NDXuVWJasO81 Tl7rgQxhZMBsqEQQ yT8luwzix8cunyowUpUv ESLgZZv1AWv8DJQkbKne GxHcPZV4MnV2SRP8gKAr eC5jbEcbivittF3b Oyc+P97ikX6tGUU3RFP7 jbtgBKJdxlFvUJ97OZ08 I1XkCywdeRItpPO+PGRp yeUfeOriXC4uIbDe w9bxi6JtUTooX1EsVXWd WCreYbg4TKPfGOM6pCJ6 kW8pDXJiOWgbe4R6bIR8 J3CnuoXopq0nl2vn HUIfPNhnD77kxBWkq9B0 KIIzeZF6FWZbaMzeXePb qV47Skr+TRNimJmlj3Xf Akfso7pfb6ikeKl4 IjMwJSIgdmFsaWduPSJ0 p2LaBc42K23uYSwzIPSc BDDlYULiTRPlbPpgom3g dJ5vEu2+PGNvbCB3 uDM9gJ5bKBXmSlJ8ZLvv I490CuUofAHpVvzzg0zw m2hxdNq6FuVrZMUcvvTu zHfpQVC6k9XySe04 A94kTIafQYBwXJKrQYMm ZGRmmVjzug9paH8yGj3+ DT9vk8mdiq42kB32bOT+ VZLrZGQ8pUasFXjm ZKHpcS2wABztRpC9QEYp HjVnjF74yGHyXYtaPn4z fGjzhKlxVF5fLOBxrrzh d353ArRsv3jtUQAx pIMuJBkqMCA0C95qd8L2 BGNiDPGmBSD9lAV8uI1u bGlnbjogbGVmdDsgdmVy dXlbKJnvGIcbD952 IHRvcDsnPlBhdGllbnQg ZtTmDQm7W4GaSen0MBWl gKmeGV0axADaTSxfXq7x tBpsgWgpQN0iOUVs dttxb568YrSpq7geBQEj iKYxSQacZVB4B78gq1G2 UYMzKWRcCGF0hCA0nZ0t bGlnbjogbGVmdDsg qmEmoBvqGAvhMCshU230 IHRvcDsnPkJpcnRoIERh xWX4SA33RN18vPRoh2F7 mRG1Q6LwNZQvgegu xccvkLC3YCUmSVGzjF32 Uj2awGwlVs7zKBGtQHM1 LCXbhESzW2EvgJ7sRtUu CBWgZLDoA8MgzYKd MQxpS312QCbxHeD8AKRv tvZsB3ZzDLWcsQhlClT8 e2E7Pe5EV4K7HZ05KT29 bFCkg2R2dYI5G2Br LQXktikneterlZG9MWUm EDKchK55Fp0svLpoTd0k SGJwGAM4RTCloOHgB6Cj wJ4hKyQnKKObFOEm P6OirZLlPRdnT922BXip FzP8IEPvfsMxK5DbNZMg sDmhEjZ9v0O8Xc5QVXm5 FT38II20aBVef8Z2 lHQ2S8NbVFZiscbqwllb nIO0FIKeDKKdiM78As5z iQitNk5qOUWdYJU0OKSl wCZbN0PiyS5fRjAu FYGbBULdW9FboPGmBGnk Q569GMvcQyL0TABprjOw W4NnRKHedBsiHtX5z5F1 Wv0WXFJzUP88DDG6 yHJ1RH14MQ67Q3NxFrqg dGFibGU+PHRhYmxlIHdp ZHRoPScxMDAlJyBzdHls YV4oXz2rCWZyFFUx uZtawMGxWgPik7zgNIXz NCmqIY4qzQysG9TetIM2 REJai8j1Aj08U29oO7Ht dXA+KAMjlPM7iZI7 aI4pIzEuZeD9CWqyG876 FdVksQKgLwccs4xdr8na hRu2CmL5LVNfhjZafTfv RTM9t2GrPj25T18r IHdpZHRoPSIxNSUiIHZh cZdyxu8mfD7jPe8+PGNv rZV0zAM8uV0tXhHeWvT2 OIptF701VwFlyPRj Skjcq1vvd5rwyDd4AyUw JBLwzdWmfKlkMOO4u8Mf Se88F3QxyRxkj3KsCrc0 eq66tOLyj5W3mPC9 F5JeKSFtplmmvQLcaLvv ST8sUGLvfxnqACFkeH5o RENmM4p6XfUlQaP3ZErx E8GcmjY1HJNswOHa LAriSWW9U99hj0U2PTSe JAOsQCE4qGG4xF3nkQtt bjogbGVmdDsgdmVydGlj XNrtGCacU410CYWh wWmpGIXcpG9iGKQauKLa yImeIL1bOUBkppsvHrYH OfsSUd5lJZPGFhWSS7Rp TDwvdGQ+PHRkIHN0 nVwbQPnzRZBdgG6qZHGt B3z5IaQbEnX7BCdvN6Ez SBVglbilVj35oD0bIzXj IbH9HShmZ4JtsrE4 ENMroAGkWEbzPBB8Z40t v5V3KXImSZYpKFV1yHL3 fY0urKufizdevEUqhJjz dmVydGljYWwtYWxp Z950RKRglWcsAaT8JtXv GmD3ACA0R7WuZgv7NMAg mPaePN2qkYDzHXanSz9o pWgabBtsUS5cENWx upwcMXQxxR5dNVAgqQQr mTgrWO1kXYAjuzddj811 SpArLXI8YAKdxQZeR4Hm kN9uZwXyWJPyXZNu L6JhoIOrGPpaP212BQoj XuW3IZOakoObD3TsZTGq xWxtLeJ0e0M1Cb2mTUOJ ZWFyczwvdGQ+PHRk ZXT2mMniBAvqWJQgnV5h USPhT3y0PlLtOoL1PLtx A0RbSBUftiioYf18sU5x DcDiYsY8LBzaU0Hv akJ1GZLglGMiRGlpWDB3 Y53mc2Z5BPHbAZZfKTY4 zPL6oA4ynWjuuigmhJZu dDsgdmVydGljYWwt ZWzdZ158FYPqwSkhFnAz bWFsZTwvdGQ+PHRkIHN0 xQuzEIxkFHYfeX0pMRCy X0g9TmNkQsK2KIvv O2NbIOXphykbHv64uG0n KcUxOaL9IPkoS4NqygE5 DNBjxGKlBSwjWTT0T04p d1X5BKIpBYEdHVO4 qMF0fM4xaXrmzvhqrCSj dDsgdmVydGljYWwtYWxp B237ELIucUrbGe77iPSu pNwcmrK4G7LbXimy dHI+AM13CEZfOC49fASm oLHvd2axcQg3VaGlTZFc JEK5kVbnCCpfc1JqBECa K37djKFqx6N8XHVt hIxsuNHoAmXggIC8qE5w WYpgargjq3yksuqkAgly p2ygit35tX51I31pOQqd ZHRoPSIzMCUiIHZh fKsbjp5koR5qSv7+PGNv qCH3pPO4mL7yWcTnKzW2 VCfyM477FvBctPVhHnbs t0anu9eaoWq5XfQw CNHtfqNmmZdkWZH8a0Ce Dw77K95iUQpvYKMbCAMh WEKnYNAqgGxhrp9ugD3g Ii8+QK3mx1sokq08 qU60mQC+GMEoUGJ0bZxq REnjNGNqaV3iALdqUzY7 JXEaCoUeoK85rPLeRSsk Us3ljFfyaPloMP7n CPJhmlqmx014ZgSlu5xb XBFpbVBrWElpBOR7S44k g7H8QQTuBYMoMXZ8dFJ0 gV0sdBjiwlhwtGAw dDsgdmVydGljYWwtYWxp R067UPHixRecHeZzmSLk G0lzyaNCWX2vMiaqhEL+ ELHlIRX6fKucYIzi TMKpeH8fNAAwV0w2QhVm IhL2MBhxH8VjnjZ9BVNb mSXsQRFrhWQXrE2qngan c9yajwbtDkEmZROn RCt9UGw0QBYtdSpjXqIw ETA2SbZ9YYG7mLUfiI2g nJukxzqwvF8dDsi+RklO OjwvdGQ+PHRkIHN0 cPleTRrsZACydW5dKVUb D9k4FtRsSxC8AVnuM2Cu pjJ5CURoaLFcCDPlmDCL cG6weejdy8bplulw CyHtLSTiOZh9PVu3KULq hJviZeDrHNH5JlI2OVH5 xOYilR6bsCzdteakoY1d Oyc+TVJOOjwvdGQ+ EFIpJFN8jLbxNXnqOGZg eY9oIZIbW2t5EzJnAyZ6 GYerD1ObzkS6ZXXxbVWy WHWfrKMJcX4wpwig d7ugyvcqMtPuHWPrEEw9 UBu4NMEphMfrAuTzHJX9 YgH2IAU5aBKtzJ1toGyt aqbfrF8gAun+UGF5 PIA8KY55KP06P6QiKcyh dGFibGU+PHRhYmxlIHdp ZHRoPScxMDAlJyBzdHls DA0eTi5hPXWyRLDw bGxh (more content not included)... Normal [facility] Coding Summary.on 08-15-2020 Coding Summary. [id number] Gh0bWw+PGhlYWQ+PE1FV VKvC53fkKGryS4ND6cMA Q6SNRBRMYJDFS6VQO6jl JW8XGyaS1BzqfDc PcibmOFfNF36PVs1ODQ1 sCwrXPcqdD9thCRzB7i8 BvTzXA07eE69ZEkzUEDy SgQ5DzXbdqsotIJq O0lwBdWocLUsJms+PHRh YmxlIHdpZHRoPScxMDAl ZlJvlCzxHE6gJp6mCJHu LWNvbGxhcHNlOiBj q3osAPJzDTjnBE2zhVyj R9MbfZS7YRZkq1w7Zb24 dHI+KLLmADQ1sCzhDWnc c145AkSop6afBGM6 pBHyNQqoOWK8P30ra0U0 NBTqOTCyFLM5hBA7zM9q zTbfxetmD9KypLSvDiA8 YCL1yKGurY6sxTac fhknnS3gEgf+L97ENM5E KVLUUZ5QFjn6E8LbHxrg dHI+CW46TVGhEF55gTHr yWKrx3bocLl6DgWu CZJgGPE3gQbtWKdrn3Vg BHXiI99ekKEhu6X9LEWm jCnwqBMlMoXikBG8tC9y ISeumtsph4fqjzvi Wxzqu9zcqq02xH53C22c JMonMTDcAQM5GVOmXMXr nRrnfy6jqR7fPf4+IDxj q9jjl7kejFg6EjBe WZMjbwVxrWloZGI9i0Zv Nt10R6OyyKths1IhNiq1 jo77sUBsj7M6mTP0LBvz JVLgqN7iQGexPgB2 SREbZpHiiV37xAJiPJhj Fq1isIcxmBqgGA9rSFBf brtcTHWeuX7gCLVguSYn oUpiLN7uWIDwhemu o752GrTqVDV1ALLdrZGb Z9AtqK7oDaYdSPGrSJRv Y4FsuJVvCZbnR859GArz PpP3YIGjflEyI1Ti VINfuVxnNfI3m4A0Vw6Q h8PdauacRZX5MIxjPZG8 OdM6WfKdFnT9Q2ZeVke0 NLPnfFevZK2yZ4Qw ECIvnqjvshpjdFW8RRGo NSWnkM03cPBjLQdmJf6u x7P3f088XKKjBKSmqM25 Az6oiMavMWZaxJFL uS3qnvkpl5vdzwxqKgIs ELKyDTc3SZr5JFEykYsk OqYjBEX9JoQ6ROT4oVTl uV8ggRwdvnzlpB3s Oyc+E76vcJ6oPHV2LZW8 sjjyCMEisgIgED36ME69 E4FjSbgelZZniAF+PGRp waGapRebKW3kCsFd h6xjo8VaVLhhS7EbZPJk ONzeCbf3MZMwTGZ8bCX7 fY1hVSUsBZbqe5V3nIU2 N6PzncDfql7uu0mh LQGfXSndZ73tdOWnm3S4 UHCjkEE0QZFooVizSyIg fN68Dcf+QTAfbPlqo7Sm Sxcsw4cqp0xexLu8 IjMwJSIgdmFsaWduPSJ0 p1PrEi03J27wSEkfOYZd EPHrUWUvCINbhRzbfp6q kW0oRd5+PGNvbCB3 kNB7dQ7oWLTwKzN4CYoj A491FiWssKZmJhcha4sc t6xzeWb3EpSvJRTgdiSf iKtpTJZ9o6KlIn66 Y63bJNnxFDQkDFJaBDBk YHPytIaneq4ppN7uZn4+ KZ6mb1uyaj97tE40cDK+ MCUvRAI8qKqdFMjf WZXjmV5pICxfXkP6RYQt LuHjeU67eLEoUNczDv6u rHyomUiuYY7bJPIaivkj m909ZpGor7hbWLRc fETbDPgvVQY4I80is6T3 WWHkEIUsXAK2dMQ3gS3u bGlnbjogbGVmdDsgdmVy eBqrERapIAyuX815 IHRvcDsnPlBhdGllbnQg AwHeZAs5Z2EwCtk5AANb sUleQS7ibFVyKPmiPe3d eGcwzVgmEX6bTAMx lsvsl846FbEex8iyKCVn fIInZEqnXDK3I47ws3U0 OVUmVKExAKJ7aLU4cB4g bGlnbjogbGVmdDsg fjMgvYwxSNbjWEnvP911 IHRvcDsnPkJpcnRoIERh qZP7BZ88OE33tERld2V7 zVH6M4GgACHoexyl lkesfJC1RHLsZRMsgS70 Ob5zpMinJq9nFOZuJET9 BEKmhBZsN4UkxF6yIgRt JCDyWQPpM9TygTQf GPyfV399PYonPpT4UJPs tfCeS9BnPKRcwKofJsB7 f7M6Mr4TF8U4GA67VI25 aOFou2L6bDA3T3Fr ONVqdzrrrhqvlPJ4RBYw BMQeoE96Si6gxRvrPg3s BTTaQVG3CAHygTNhP5Jq vF6tKeJpNCQhBFSx Q8NcbDMeSZdhG389KJwm HtP2DHCzgxJdL9UjWWZa yZewHlA9l7K6Ch5QXPk7 NB93WW60nJDkj3L9 qKD1F5GxWPBlcwxqjfeu bRU3JANnTIKahE64Cd1r zMwmLs7oMTByEWA7NCTu eFJbP3WnsL0eFfAe MNSlLYLfM1SehQOqYJqi O480UFdrVdK2EGLqeyAn H9ChSBTzhXvkVhF2e8F5 Iw3PGXGiSL63OUP6 zWL3XU41IE74J0ThFtrw dGFibGU+PHRhYmxlIHdp ZHRoPScxMDAlJyBzdHls QL8hCf0lXCEpUQOg nGopjNSsTsLmy3cbRPWy DIqcIA0pyBshR6CrmXQ7 LYXul2i9Rb19R73fA5Vg dXA+EFGkuHQ3lIQ8 vQ0gWiVzPyA8BUyoJ423 QyDnxWYvJauso6ngz5mu mTe9NqH4RQZougSlvWgi ITG5i3ZoGo92I39n IHdpZHRoPSIxNSUiIHZh hUsqaq8pvN0qNz1+PGNv mRT8lQS0aV8aUfSuQdX8 GEimM606OnAavPTh Gzqll7irz3jgkId7UdKx ZIWuokWvdMvzMAV8t0Nc Yo97V1EihFkzg8HgGhr7 ag88nAUwy1M3pYR1 E8PcYTGyetcfkUOugOmu UP8lOMRusyigMHLglO1r QGKeI5n4TlRxMbX4VPlx D1CmgsX2ZPHvqRHz PDakLGM1S14tg2V5ATJl OLFgEJN6nIP3kJ9mvRhl bjogbGVmdDsgdmVydGlj XPvtDJejF405LOTh aUpcRPNqmD6fODSclYRc cKwbMJ5lFKQjzneyHsFL YkbFOj6bNBVJNhMUK5Zr TDwvdGQ+PHRkIHN0 rBzpZLesASAkoU9jLMTu Z0j7VoPmYqE7ERwwM0Qe POPnjrugCl10mO5nBgPq DlB2FSqvJ6JcwvJ2 PNLebVJzSYfkOKN4J43t j0A0OJDoPWPkBND6hIT7 uH8jzStfcpexqRZnpPhv dmVydGljYWwtYWxp U989XOAwoIvyImM2YmAa FvT1WWF9X7GbEuo5WLPf tXpeTJ3thPQoIDsvXu9u wGmsxTmyQX3iFWUq czjiKLZneN6fGHTsuXOz eZtwRU1eEIJohieqw385 LiOePVK6RKIhxTIdH9Uu jV0qBuGsUHMuZUOw L2RylIEuQMidF357DTsg IfE4ZMVyqiJiG5VyJCOz yXwwEzC9d4I3Ys3uOOWQ ZWFyczwvdGQ+PHRk MFY0kCdnSNsrIDNlnK0p AANdI5q8WsStNyO4FHju A0GqHIPsgyffNi13fC7w QdCmQxX5TAxrV9Bb qqA3MQVshEIlZUqrZIL7 O81gt4O2OISaMNElCLB4 oUV1zE8niGoyjmgibRNg dDsgdmVydGljYWwt JDeiR759DVRpkIfiBcPv bWFsZTwvdGQ+PHRkIHN0 oPecLSwhNOVlxY5bCUYg S6t0LyTzIbA4IPlo T8WxNUWcjvrbPa92rV7n MhYqItU6BLscZ3WhxbR5 QBEyjRFbMDofZJV3Q68r y5W8QYAfHIThVXC9 eSA5gU7qsLntzfxayGTr dDsgdmVydGljYWwtYWxp I478IKAnkPdfArndmPY9 aWVudDwvdGQ+PC90 yc36R4UfYocjBgn9KKSk HCB3tEH6rY3qLDZrVWet l2Y1cXL6S6QxxxVrag6i t2pdFFAzIIkdR09d mIUbd9X3ESTrmKF7WDMk cQhdNiFklR45Umy+PGNv zGsss0ZeSopso3fjo6xg lSl0SjNoSBZvnjGk gFlkWNN2w2YxMv50E94h IHdpZHRoPSIzMCUiIHZh tUonbb3vfF5hLh2+PGNv pXD8iTG3rE4eWkSs InK4CRgfA061RwLfqVQw Pwqva4ply8hutCn3ZlLp ANXenqZbhHwyXME0a3Ki Do24A4BbqKwbo5Qe Uev3bo01dXApm7A4gFQ9 Z8OmKSWtfgurfYWcmKky AT0rIGWrptrnANGouF4n UAHqF6o7LlUoSnI5 ADawP8WfcoC8YJFapSAk XKLlpMVGyL8eacuuq9qe xmqnUdVzPQEjNOm2VRt8 LWFsaWduOiBsZWZ0 SaP0PLF1wULbpU6tsCnh ciefgI4fOus+QKy1o0df uAEiJF1xsPR2EW65NF25 aSBge9T7zJT9I6Eo DSIgqxfiuppvbPS1RJWh UEYoyQ48Je8jcBbbFx6b QPQdLHE2KIVheJZoC7Ak wZ7rQaQnAZVkMSZt U8QivEPzSVgdD848EIav KgX6TCUfjrAdU2QnUMMm mEzxVgL6d6M9Zp7MDF28 GD42KU03bKVhl7H7 gYS1M0PeISAzrrlcfxbp hRP2WOKrRWHsvL53Fe6j vEgcSc5aKODgJCF4XNMd qLUqF5BrvH9xZuFi EXIiYNKxZ8EyfMEyUQlj L839HMmcXlZ9JALvouZt E1LiDCNtdObtUrF0l3S0 Lu7DIq12NN54ZP17 vXOsg4T5tRX1I0CpDXSn wkstvybscUF1HFVlHTQl iG35Lf2fyRqkHz1oBOMy DWC5CNEumDRhM4Jt jW1oFnQwFKIdMEDlW0Hy aCXwWYrvK205EBzyLyN9 CZCtbpUqH0YxGYTtiBey QyA7u6W0Kl1PDOja prq5O0SdMrgxfQT+PC90 RUToOQ09sKYdmHBye7ve xGw8OzQuQMJcILT8iLsh FHiqi9EpKOYrY01p bGFw (more content not included)... Normal [facility] Consent for Treatmenton 07-20 Consent for Treatment [id number] #1.00CD:127 Normal [facility] General Message Officeon General Message Office --- --- --- --- - -- --- --- --- --- From: Basilio, DirectInbox To: MYA MYLES Sent: 08/06/20 02:30:52 AM EDT Subject: Discharge Summary Ready to View A summary regarding your recent visit is available in the Documents section of your health record. Normal [facility] CBC w/Indiceson 08-05-2020 Erythrocyte distribution width (RBC) [Ratio] 15.1 % High 10.9-14.2 [facility] Comment on above: Performed By: #### 2 [id number], [id number], [id number] #### [facility] [address] [place] [address] Hematocrit (Bld) [Volume fraction] 26.0 % Low 34.0-46.0 [facility] Comment on above: Performed By: #### 2 [id number], [id number], [id number] #### [facility] [address] [place] [address] Hemoglobin (Bld) [Mass/Vol] 8.6 g/dL Low 12.0-16.0 [facility] Comment on above: Performed By: #### 2 [id number], [id number], [id number] #### [facility] [address] [place] [address] MCH (RBC) [Entitic mass] 26.3 pg Low 27.0-34.0 [facility] Comment on above: Performed By: #### 2 [id number], [id number], [id number] #### [facility] [address] [place] [address] MCHC (RBC) [Mass/Vol] 32.9 g/dL Normal 31.4-36.0 [facility] Comment on above: Performed By: #### 2 032253, [id number], [id number] #### [facility] [address] [place] [address] MCV (RBC) [Entitic vol] 79.7 fL Low 80.0-100.0 F [facility] Comment on above: Performed By: #### 2 976818, [id number], [id number] #### [facility] [address] [place] [address] Platelet mean volume (Bld) [Entitic vol] 8.0 fL Normal 6.4-10.8 [facility] Comment on above: Performed By: #### 2 384409, [id number], [id number] #### [facility] [address] [place] [address] Platelets (Bld) [#/Vol] 259.0 E9/L Normal 150.0-500.0 [facility] Comment on above: Performed By: #### 2 635904, [id number], [id number] #### [facility] [address] [place] [address] RBC (Bld) [#/Vol] 3.3 E12/L Low 4.3-5.9 [facility] Comment on above: Performed By: #### 2 521326, [id number], [id number] #### [facility] [address] [place] [address] WBC corrected for nucl RBC Auto (Bld) [#/Vol] 10.2 E9/L Normal 4.0-11.0 [facility] Comment on above: Performed By: #### 2 350410, [id number], [id number] #### [facility] [address] [place] [address] Discharge Instructionson Discharge Instructions [id number]#1.00CD:127 Normal [facility] Inpatient Clinical Summaryon 08-05-2020 Inpatient Clinical Summary [address] [address] Clinical Summary Person Information Name: MYA MYLES [facility] Age: 30 Years : 1990 Sex: Female PCP: Chao Blackwell III, DO Marital Status: Single Race: White Ethnicity: Non- or Language: Dominican MRN: Visit Id: Visit Reason: Speciality: Acuity: 1 PP Enc Type: Inpatient Med Service: Obstetrics Arrival: 08/04/2020 06:59:23 Discharge: 08/05/2020 17:20:00 Dispo Type: Home ([facility]) Address: [address] [place] [address] [address] [place] [id number] Provider Notes: Diagnosis: Depression during ; Obesity [...] every day. Care Team Members: Attending Physician: LAURA MACEDO, Funmilayo Ryan Consulting Physician: Referring Physician: Follow up: With: Address: When: Sukhdeep Schaffer [address] [place] [address], [facility] [address], [place] [id number] [facility] (1) Within 6 weeks Comments: Call Dr if fever>100.5 F, heavy bleeding Call for any problems. Nothing in the vagina for 6 weeks Type Location Start [facility] 09/15/2020 9:00 AM 09/15/2020 9:15 AM Confirmed Patient Education Information: ibuprofen 600 mg Tab Normal [facility] Inpatient Patient Summaryon 08-05-2020 Inpatient Patient Summary [address] [address] Patient Discharge Instructions PERSON INFORMATION [...] Follow up: With: Address: When: Sukhdeep Schaffer [address] [place] [address], [place] [address] Business (1) Within 6 weeks Comments: Call Dr if fever>100.5 F, heavy bleeding Call for any problems. Nothing in the vagina for 6 weeks In the event that this physician does not participate in your insurance network, please consult with your insurance company to find a nearby participating provider. Type Location Start [facility] 09/15/2020 9:00 AM 09/15/2020 9:15 AM Confirmed Comment: JUSTINO Burton VANESSA L, have received the attached patient education materials/instructio ns and have verbalized understanding. Patient Signature Date Clinican/Nurse Signature Date MEDICATION LIST New Medications [id number], [address] [facility] [place], [place] [id number], [phone] ibuprofen (ibuprofen 600 mg Tab) 1 Tablets By Mouth every 6 hours. Refills: 0. Last Dose: Next Dose: Medications to Continue with No Changes Other Medications multivitamin, ( Multivitamins) 1 Tablets By Mouth every day. Last Dose: Next Dose: Pharmacy Information: [facility] PATIENT EDUCATION INFORMATION Instructions: Medication [...] younger th (more content not included)... Normal [facility] ABO/Rhon 08-04-2020 ABO/Rh Positive Invalid Interpretation Code [facility] Comment on above: Performed By: #### 1 [id number], [id number], [id number], [id number] ####[facility] [address] [place] [address] ABO/Rh History Checkon 08-04 ABO/Rh History Check Verified Hx Blood Type Normal [facility] Comment on above: Performed By: #### 1 [id number], [id number], [id number], [id number] ####[facility] [address] [place] [address] ABSCon 08-04-2020 ABSC Gel Interp Negative Normal [facility] Comment on above: Performed By: #### 1 [id number], [id number], [id number], [id number] ####[facility] [address] [place] [address] Blood Bank ID#on 08-04-2020 BBID# [id number] Invalid Interpretation Code [facility] Comment on above: Performed By: #### 1 [id number], [id number], [id number], [id number] ####[facility] [address] [place] [address] CBC w/Indiceson 08-04-2020 Erythrocyte distribution width (RBC) [Ratio] 14.8 % High 10.9-14.2 [facility] Comment on above: Performed By: #### 2 [id number] #### [facility] [address] [place] [address] Hematocrit (Bld) [Volume fraction] 31.7 % Low 34.0-46.0 [facility] Comment on above: Performed By: #### 2 [id number] #### [facility] [address] [place] [address] Hemoglobin (Bld) [Mass/Vol] 10.2 g/dL Low 12.0-16.0 [facility] Comment on above: Performed By: #### 2 783836 #### [facility] [address] [place] [address] MCH (RBC) [Entitic mass] 25.6 pg Low 27.0-34.0 [facility] Comment on above: Performed By: #### 2 [id number] #### [facility] [address] [place] [address] MCHC (RBC) [Mass/Vol] 32.1 g/dL Normal 31.4-36.0 [facility] Comment on above: Performed By: #### 2 [id number] #### [facility] [address] [place] [address] MCV (RBC) [Entitic vol] 79.7 fL Low 80.0-100.0 F [facility] Comment on above: Performed By: #### 2 334049 #### [facility] [address] [place] [address] Platelet mean volume (Bld) [Entitic vol] 8.3 fL Normal 6.4-10.8 [facility] Comment on above: Performed By: #### 2 784088 #### [facility] [address] [place] [address] Platelets (Bld) [#/Vol] 341.0 E9/L Normal 150.0-500.0 [facility] Comment on above: Performed By: #### 2 801465 #### [facility] [address] [place] [address] RBC (Bld) [#/Vol] 4.0 E12/L Low 4.3-5.9 [facility] Comment on above: Performed By: #### 2 991956 #### [facility] [address] [place] [address] WBC corrected for nucl RBC Auto (Bld) [#/Vol] 8.2 E9/L Normal 4.0-11.0 [facility] Comment on above: Performed By: #### 2 476622 #### [facility] [address] [place] [address] Consent for Procedure/Surger yon 08-04-2020 Consent for Procedure/Surgery [id number] 9#1.00CD:127 Normal [facility] Consent for Procedure/Surgery [id number] 3#1.00CD:127 Normal [facility] Consent for Procedure/Surgery [id number] 5#1.00CD:127 Normal [facility] Consent for Treatmenton 07-19 Consent for Treatment [id number] 2#1.00CD:127 Normal [facility] Consent for Treatment [id number] 9#1.00CD:127 Normal [facility] Delivery Summaryon Delivery Summary Patient: MYA [...] Stable. Maternal condition: Stable. Funmilayo Escobedo MD [facility] Comment on above: Result Comment: Elec tronically Signed By: Funmilayo ESCOBEDO MD\.br\Date and Time Signed: 08/04/20 15:29 EDT Discharge Instructionson Discharge Instructions [id number] 9#1.00CD:127 [facility] Help Me Grow Referralon 07-19 Help Me Grow Referral [id number] 4#1.00CD:127 [facility] Progress Note-Physicianon Progress Note-Physician Patient: MYA MYLES Age: 30 years Sex: Female : 1990 Associated Diagnoses: None Author: Kevin Haley Jr., DO Postoperative Information Post Operative Note: Day 2. Anesthetic utilized: Regional: Epidural. Health Status Allergies: Allergic Reactions (Selected) No Known Allergies Problem list: All Problems labor / Patient Care / Confirmed Ovarian cyst / SNOMED CT 765882679 / Confirmed Attention deficit hyperactivity disorder / SNOMED CT 7806281998 / Confirmed Obesity / ICD-9-CM 278.00 / Possible Obesity complicating , third trimester / SNOMED CT 7479910884 / Confirmed Depression during / SNOMED CT 1351427228 / Confirmed Insomnia / SNOMED CT 510749336 / Confirmed / SNOMED CT 535673565 / Confirmed Supervision of high risk in third trimester / SNOMED CT 39438866 / Confirmed Chronic fatigue syndrome / SNOMED CT 88605630 / Confirmed Resolved: / SNOMED CT 163147728 Resolved: / SNOMED CT 492317988 Canceled: Obesity complicating , first trimester / SNOMED CT 7315341377 Canceled: Obesity complicating , second trimester / SNOMED CT 1351150231 Canceled: Supervision of high risk in first trimester / SNOMED CT 96492702 Canceled: Supervision of high risk in second trimester / SNOMED CT 13781410 Physical Examination General: Alert and oriented, No acute distress. Neurologic: Normal sensory, Normal motor function, No focal deficits. Review / Management Result Review Condition: Stable. Assessment Anesthetic outcome No post-epidural complications noted.. Plan Transfer/ Discharge: Condition stable. Normal [facility] Comment on above: Result Comment: Elec [...] / Confirmed Ovarian cyst / SNOMED CT 389149150 / Confirmed Attention deficit hyperactivity disorder / SNOMED CT 1155082224 / Confirmed Obesity / ICD-9-CM 278.00 / Possible Obesity complicating , third trimester / SNOMED CT 8551956015 / Confirmed Depression during / SNOMED CT 9443915762 / Confirmed Insomnia / SNOMED CT 265805772 / Confirmed / SNOMED CT 447390360 / Confirmed Supervision of high risk in third trimester / SNOMED CT 30381385 / Confirmed Chronic fatigue syndrome / SNOMED CT 32563194 / Confirmed Resolved: / SNOMED CT 966387146 Resolved: / SNOMED CT 923865357 Canceled: Obesity complicating , first trimester / SNOMED CT 9494769669 Canceled: Obesity complicating , second trimester / SNOMED CT 7685994675 Canceled: Supervision of high risk in first trimester / SNOMED CT 07816870 Canceled: Supervision of high risk in second trimester / SNOMED CT 58551939 Review of Systems Respiratory: Negative. Cardiovascular: Negative. [...] The PCEA was started at 0942. Normal [facility] Comment on above: Result Comment: Elec tronically Signed By: Kevin Haley Jr., DO\.br\Date and Time Signed: 08/04/20 10:50 EDT UA With Cult Reflexon 2020 Bilirubin Ql (U) Negative Normal Negative [facility] Comment on above: Order Comment: Urina ry Catheter Insertion triggered Urinalysis With Culture Reflex order by discern. Performed By: #### 2 285440, 6722891, [id number] #### [facility] [address] [place] [address] Clarity (U) CLEAR Normal Clear [facility] Comment on above: Order Comment: Urina ry Catheter Insertion triggered Urinalysis With Culture Reflex order by discern. Performed By: #### 2 085444, 4392656, [id number] #### [facility] [address] [place] [address] Color (U) YELLOW Normal Yellow [facility] Comment on above: Order Comment: Urina ry Catheter Insertion triggered Urinalysis With Culture Reflex order by discern. Performed By: #### 2 249320, 9498764, [id number] #### [facility] [address] [place] [address] Crystals LM Ql (Urine sed) Present Normal [facility] Comment on above: Order Comment: Urina ry Catheter Insertion triggered Urinalysis With Culture Reflex order by discern. Performed By: #### 2 944810, 8781212, [id number] #### [facility] [address] [place] [address] Epithelial cells.squamous LM.HPF (Urine sed) [#/Area] 0-2 Normal 0-2 [facility] Comment on above: Order Comment: Urina ry Catheter Insertion triggered Urinalysis With Culture Reflex order by discern. Performed By: #### 2 886042, 3851483, [id number] #### [facility] [address] [place] [address] Glucose Test strip (U) [Mass/Vol] Negative Normal Negative [facility] Comment on above: Order Comment: Urina ry Catheter Insertion triggered Urinalysis With Culture Reflex order by discern. Performed By: #### 2 397892, 6845575, [id number] #### [facility] [address] [place] [address] Hemoglobin Ql (U) TRACE Abnormal Negative [facility] Comment on above: Order Comment: Urina ry Catheter Insertion triggered Urinalysis With Culture Reflex order by discern. Performed By: #### 2 686624, 3086363, [id number] #### [facility] [address] [place] [address] Ketones (U) [Mass/Vol] Negative Normal Negative [facility] Comment on above: Order Comment: Urina ry Catheter Insertion triggered Urinalysis With Culture Reflex order by discern. Performed By: #### 2 662092, 1368618, [id number] #### [facility] [address] [place] [address] [place].plasma/[place]. RBC (Bld) [Mass ratio] 0-3 Normal 0-3 [facility] Comment on above: Order Comment: Urina ry Catheter Insertion triggered Urinalysis With Culture Reflex order by discern. Performed By: #### 2 066965, 7158623, [id number] #### [facility] [address] [place] [address] Mucus Ql (Urine sed) TRACE Normal [facility] Comment on above: Order Comment: Urina ry Catheter Insertion triggered Urinalysis With Culture Reflex order by discern. Performed By: #### 2 652472, 1186205, [id number] #### [facility] [address] [place] [address] Nitrite Ql (U) Negative Normal Negative [facility] Comment on above: Order Comment: Urina ry Catheter Insertion triggered Urinalysis With Culture Reflex order by discern. Performed By: #### 2 620349, 9775625, [id number] #### [facility] [address] [place] [address] pH (U) 6.0 [pH] Invalid Interpretation Code 5.0-9.0 [facility] Comment on above: Order Comment: Urina ry Catheter Insertion triggered Urinalysis With Culture Reflex order by discern. Performed By: #### 2 175623, 9047506, [id number] #### [facility] [address] [place] [address] Protein (U) [Mass/Vol] Negative Normal Negative [facility] Comment on above: Order Comment: Urina ry Catheter Insertion triggered Urinalysis With Culture Reflex order by discern. Performed By: #### 2 196410, 5397526, [id number] #### [facility] [address] [place] [address] Specific gravity (U) [Rel density] 1.015 Invalid Interpretation Code 1.005-1.030 [facility] Comment on above: Order Comment: Urina ry Catheter Insertion triggered Urinalysis With Culture Reflex order by discern. Performed By: #### 2 082426, 7001090, [id number] #### [facility] [address] [place] [address] Type of Urine collection method Catheter Normal [facility] Comment on above: Order Comment: Urina ry Catheter Insertion triggered Urinalysis With Culture Reflex order by discern. Performed By: #### 2 722523, 7553419, [id number] #### [facility] [address] [place] [address] Urobilinogen Qn (U) 0.2 {Henny'U}/dL Normal 0.0-1.0 [facility] Comment on above: Order Comment: Urina ry Catheter Insertion triggered Urinalysis With Culture Reflex order by discern. Performed By: #### 2 648374, 4001072, [id number] #### [facility] [address] [place] [address] WBC Auto Ql (U) Negative Normal Negative [facility] Comment on above: Order Comment: Urina ry Catheter Insertion triggered Urinalysis With Culture Reflex order by discern. Performed By: #### 2 657467, 0733840, [id number] #### [facility] [address] [place] [address] WBC LM.HPF (Urine sed) [#/Area] 0-5 Normal 0-5 [facility] Comment on above: Order Comment: Urina ry Catheter Insertion triggered Urinalysis With Culture Reflex order by discern. Performed By: #### 2 316680, 4800546, [id number] #### [facility] [address] [place] [address] Vaccinationson 08-04-2020 Vaccinations [id number] 0#1.00CD:127 Normal [facility] Coding Summary.on 08-03-2020 Coding Summary. CD:[id number]:[id number] Gh0bWw+PGhlYWQ+PE1FV YQiW41vgAZmpA0OV3wIE R9CTHPGJWRGOS3HOX6tj JT3IHwhR6AqgnEk NagnsJCbLW75IGr0JQT7 aBviUWoogL4fmEVfP0e0 LfSbHO00iK72FZpmETUq QfC8KvTjsaojkEAv A1saWcVwwUEgJpf+PHRh YmxlIHdpZHRoPScxMDAl YsZojYclCB5vFj0zZWXe LWNvbGxhcHNlOiBj f1xvFAWfLKjxJV2cqDxr U2IocUW4MORoq6o6Gc48 dHI+HQNwTUN6jTcgMRrv o866QgMta9ctVVO9 dHNbQYekSLA9Y29mz9T3 WPFvERYmXNV8sLE8xR7l sMopvrvyX8WutCQeQaO0 ISH6eVVclF8omPnk axbiuT4xOoe+P41IDE9A EPTAFY0LQpo4Q8ObDmdt dHI+LI22VBLxJS80rYJu nNBux3ixvKt9OrZc ULGcYWZ6gXklGQpmf9Lf BLAvT77sqGYfb2W9YHGt tKzqcZSxFkGcjUA2dL8g CZukdkayu7njkjmm Inpze8epym16xF22A22v VPmfMCHzYVI6OLOkCNVw dUvkfy2iaM5zZy1+IDxj w6ghh8tjjNh5HwYv FALqvcEypZzhFCH0h4Ee Gj25J6DlwZggq8ZxBzk9 jq58wLDme5S0gKB1MRny GIYbbI6xHKddKiF2 LONpKbMnaU42lURkDIzs Ct2pnPsutUwdLM4nSBFi lhtlBHOiqY2oMWUmqMXl yHfjHX5aTNHwpfgk z116BuTfPFI3QILrhUNp Z4PdsT8pSkAiVMXaNRQh F2JulUQjOXqhJ563OHbh TqI0EPQknnHlI9Ek TEGnnRoxIeH3h8K7Gw3V z6CavmvsXTN5KNpwTON2 WsH4CjIoXjY7Y1UvWxx0 KAZgiSldWZ7xP1Uw QABvzkhqegaqmKV3ITKa BTUgzI20jLOpYWogKn7b x4A7g594ZBPaDLVyfW39 Lh1wxFbjJXCpgRSW aQ2hguwks3pjvxgiYiHn MXPrWFl7FQg3DMCduVte ItRuNRZ1LfI2FDW4lGCn gV9sgHgiwafeiQ3u Oyc+R26fqP5nJHS7GGG3 oeykWBMgtgEqDR49NK96 S1UiZtlwtYQynSQ+PGRp nsJtsZktZM4yYkMh y1oon1StWByeI4RuRENj JAmmCtn9MDKiKWF7qMB8 tO0wHXVtZXycb0V3wWX2 Q0EyhgZuyh2wy6pq ESZmBMqcZ13maZVav1F7 GLUhsLC1WDLtxJqbNuYl dA80Rlz+PWYwzGsjg9Gn Tluff7woz6fxpEb4 IjMwJSIgdmFsaWduPSJ0 i1YkAh13S23qNZhkNWHu ZQKbSXVdBAEavCpnco4f tM4sVj9+PGNvbCB3 gSM0kJ6zBFDeLiO8WRzm C586IsXomSZhGmmon0eg q4ybqJa6LpUfENNfvwBn pZszEXI0w7NcUr91 D56eEBfiODZmGAQuXQMj XMEakCfsqk8vtG8vKq1+ VP3xz3otoj58qL04wJL+ BBXwJFY8mHsdUKfw YVAqxQ6dWUuaVsQ8HZVj ReIxwL48xLOcVWgwLj3s rRjiyQyhYC3zLZXpxqur t056GeVml5xpDCGu pVSbZEabSKK9V26rc0Y6 NEIuAFQeGJA6qMW4yZ8s bGlnbjogbGVmdDsgdmVy bBqwLYpeLJpsX802 IHRvcDsnPlBhdGllbnQg FwYdCDc0C9PtVib6NROc vOytEC8wbXMcCXatVt1n hIchsDnuQU4dDEEw eklab907VqHkd7miDPCr aYPpCLabMDM9M18vy2F4 YTPeUWUnAIW3zDF0lM1p bGlnbjogbGVmdDsg pfFqkFzzTYxoUSsvN632 IHRvcDsnPkJpcnRoIERh pUX3FX61CB73qRHgy6N5 lXV8B6FpCOApvegp dgbjfNB3BTYdHNJzlQ50 Vb5twWorIx9dJZLyNZD6 CWJqdFInX2XrgK9oQqEe UNUoSDEgO4FmtEAd OZzjU509MGesTjL2WRZj mpVmW3NuIKDgdVvrZmI5 j2O4Eb3AI3B4OO75AF77 dEUue0M1sEE1I6Nh OIFihgrhyulfqNB0DMUp CGYkmB99Vd7cvNtiVf9t JSZqJPN1PBGjoDMhW0Ff jL4dRoRkYZKzXWFu M8DueNFuSZczX997THmd XqP1TTEhmrCxX9YjEUAd nDvjPtK3a8I8Ir6WPYz9 FE40CV17aRQfn3G4 fVX6T7YlIGEvyokgnaii pGY5UKPtBNUtfG75Er1t tFrkIn9xPWFrRIV9AKAz rSRmK0JelF4eXqRg UQGuAHXrW1SswAYaWJll E816GCgfKgB6NJCoouJu T5RwTXKmuAvfXeT9h1O3 Qh3XEFWfUZ13PMT9 dBR4BE93LV80A1SoVeai dGFibGU+PHRhYmxlIHdp ZHRoPScxMDAlJyBzdHls TK5qGe0lUURxYBSv xJogrZGeFfPhq2luEKMd IHgkUO9tlUezY2YxdVF3 NGKdh5e8Sg59S84nS7Vk dXA+EAXuqDF7lBW5 uX7ySgXxWyM0WEnrS950 BtKjbCWmIhjax3ipb1ii sNl2BdW7YCHplzHzxQdy QGX1q0PcUm27G87l IHdpZHRoPSIxNSUiIHZh cGnvmp9blY1uEh1+PGNv gVM7bEI0mA8vAiCwClB8 OTcnU595CwQnzSQu Vkhwd3mum3yxqQs0KqXn KNRkwrNcoFqkYHD2o1Ir Sq69V5ZrxBtjc9ZzOxm4 rw95hWZkv7A1uLM1 M5YhSMXxbphcxZKusArc DB0vRJOkzddtKTKcbC3x AIKvD8i5HsEfTwL5VWuq S6UnvdY2WCJeqSWx QQpdNYP0G83tr5Q2RNSo JNGmJAZ9jJR7qP1yxXaq bjogbGVmdDsgdmVydGlj YFmkOSayW771PNYj gJplFWTdgR0dCCLkfDRx bAxyXO4yNBPgtrhyFlKA OxrTPt4sGUXMHlWLW0Aa TDwvdGQ+PHRkIHN0 jXimXRbcENHnpB0aDKZo M7t9SjCmIvE3JFzeQ0Ns ERSqmcvhVd47sS0zXxCj VpC6MEasS1HaxnN7 YUZkgCKoVZajLMZ1Y20l i1U6YMRsMXZtTKG6iDA8 kA0nqVexpdpujHYtpFgq dmVydGljYWwtYWxp P136ILSqiLshXlR8KpZd KgM9EXG3J1ZjYqo2EKRn rOhaGG5rwWBmUQrdEa6p sOurnOnxHS8nEMCk rcuiEYKezB9qCCRwfHIr zAvmPW7rDMApnktfo495 MgElPOW6LPOnfZUwQ6Sv xH1cAiFfWHVlNVNt K1DdoJYeSPktA500CSnm FzL1KIMrkvCmM6ApOJUw fTrqYmV3i6P5Nb2yRMIW ZWFyczwvdGQ+PHRk SRG8cXtbDWteNQRbrB6o DUNkG1e1PvGgQtC6NRrn I6FuMNCmisagNz74bG4z LbQrHwU6TPsoX3Ba izM2TBBrcKCgGRfoILN7 I77gw6T0NDOrUBImGZM0 aVK6yW8mdOvlblknlIBl dDsgdmVydGljYWwt VCixY106YACnrEhbWuFd bWFsZTwvdGQ+PHRkIHN0 wPbjJBwlROTaiU1jIJZq M2f4FsKgLiP6HZre Z0JyYPTzzgtrMd23oV5v LkEhHlL2JVsaP9TpihF1 EGZblZZzAKkkCQK1A67p y0H5OGTxNYMoEWN1 fGU6xU7hnPqpjfojyOUr dDsgdmVydGljYWwtYWxp J621XXHxsOcyXp1DJLNq aWFnZTwvdGQ+PC90 eq45K0BgRzqiLbz2PSXj BGR1mEY0yL6bLPZtFFvs t1W7jRM3P0UpafCqzs9v y1ejUIBzKFdmM53g yBQrm0J1UVAckMD9GUVo sRdbYpHtqI45Ljr+PGNv mYnxa6NqNijek4gju9dr oHt2GkIqSHUcfsRr rWbxFQQ0y0HhBe35E89h IHdpZHRoPSIzMCUiIHZh jCxgit1xqK1tJk9+PGNv uIO0kBI4wQ0bOtAn VyR5TWcoI282SoOpkSIt Mponn8zqq1uugVf7YbFy YMUkwaUjpZgyGGJ6p5Nq Ml77D8ExbPeuf6Vr Ecr3gy21rPKax9C7eHG7 M2XvDDJnqcnoaAYxzVif JM6zTOEjbndqZANenR5t CTYeM5i7DhUeFxN9 UQpaP6TecwE2OTXeoWEh NRExhDHTuV7vgzhit5jl yrelSzWdTSViQQr1XVj0 LWFsaWduOiBsZWZ0 RiM2BQU7jCMbuK7mcVig rzcyfH8xIlt+ZSl5v1ri yZRqVF4uwSU3RL98PK18 cKTud5N8uDF4D7Hh NGEuehlsxrjbbGF3MLDo WNMupA67Rx3xuJonCd2q ZCFgEJG6LMZbuODoY5Hm mM1wTbXyPBKpTSQk E7WswLHlWDyfU457QIbm JkB6UXGjdmXrX9UkADTr mUwgFiH2j7C6Gc2KAL09 AH06UO50vBRnp1P3 oNZ7A0BvHGPsnhftqmkj vAU1SCDbHPIeaC07Dy9l eTszAf9sPRBiPJP7ZZCt cSMvD4TesI4eFmZp ZNPtPNCqP9BeuVSlOBou Z173DVxpNbL8KQUoinFi S2MrAHYedGnnCrW4n6R0 Xz9HJh86MG10NC33 rRTpc6V8iTJ3O8FxQOUq fytgprytqXN1KJUvNUIm bH62Do1mpGtzFv3xDRLz RNR2OILbtXKbR3Le bG7zHfVrODGpIKWrY2Gt tPDzCWmmH714FPnpGtL5 JYBvgiAkY4GeRZDkuYcw RjI4v6R5Os3ZMGyp tmf9G1ZdDvhdqXK+PC90 ZJTxQR42lOJqjWZdd1vt yOq9XoFuMWHuSZL8xMgq TSiio9WaNCLhM59z bGFw (more content not included)... Normal [facility] Ambulatory Clinical Summaryo n 08-02-2020 Ambulatory Clinical Summary {[id number]}CD:[id number] Normal [facility] Insurance Correspondenceon 0 08-02-2020 Insurance Correspondence [id number] #1.00CD:127 Normal [facility] Insurance Correspondence Off iceon 08-02-2020 Insurance Correspondence Office [id number] 1#1.00CD:127 Normal [facility] Insurance Correspondence Office [id number] 1#1.00CD:127 [facility] Nursing Assessmenton 021 Nursing Assessment [id number] 4#1.00CD:127 [facility] Obstetrics Office/Clinic Not jasmine 08-02-2020 Obstetrics Office/Clinic Note Chief Complaint OB 38w 5d, baby moving, occ. [place], swelling bilat. feet, woke up with Migrain in middle of night Obstetric History History (1,0,0,2) # 1 Baby 1 Outcome Date: 2008 Outcome: Live Outcome or Result: Vaginal Gender: Female Gest Age: 41 weeks Wt: 3232 g Hospital: [facility] [place] Labor: -- Child's Name: -- Baby's Father: -- # 2 Baby 1 Outcome Date: 05/26/2013 Outcome: Live Outcome or Result: Vaginal Gender: Male Gest Age: 39 weeks 3 days Wt: 3390 g Hospital: [facility] Labor: 5 hr 55 min Child's [...] trimester) Ordered: Office Visit Level 4 Est 06546 2. Obesity complicating , third trimester (O99.213: Obesity complicating , third trimester) Ordered: Office Visit Level 4 Est 68117 3. Depression during (O99.340: Other mental disorders complicating , unspecified trimester) Ordered: Office Visit Level 4 Est 15165 4. 38 weeks gestation of (Z3A.38: 38 weeks gestation of ) Ordered: Office Visit Level 4 Est 35374 Follow-up With When Contact Information Funmilayo ESCOBEDO MD In [address] [place] [address]- Additional Instructions: Problem List/Past Medical History Ongoing Attention deficit hyperactivity disorder Chronic fatigue syndrome Depression during Insomnia Obesity complicating , third trimester Ovarian cyst Supervision of high risk in third trimester Historical Medications Multivitamins, 1 tab(s), Oral, Daily Allergies No Known Allergies Social History Alcohol - Denies Alcohol Use, 11/21/2009 DENIES, 04/14/2020 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 2019 [employer] Normal [facility] Discharge Instructionson Discharge Instructions [id number] #1.00CD:127 Normal [facility] Inpatient Clinical Summaryon 07-31-2020 Inpatient Clinical Summary [address] [address] Clinical Summary Person Information Name: MYA MYLES [facility] Age: 30 Years : 1990 Sex: Female PCP: Chao Blackwell III, DO Marital Status: Single Race: White Ethnicity: Non- or Language: Dominican Visit Id: Visit Reason: Speciality: Acuity: Obs Enc Type: OB Triage Med Service: Obstetrics Arrival: 07/30/2020 21:16:34 Discharge: 07/30/2020 22:58:00 Dispo Type: Home (Routine DC) Address: [address] [place] [address] [address] [place] [id number] Provider Notes: Diagnosis: Problems Active Insomnia Chronic [...] up: With: Address: When: Funmilayo ESCOBEDO [address] [place] [address] [facility] () In 3 days 08/02/2020 Comments: Keep scheduled [...] Type Location Start Finish State WH SOV [facility] 08/02/2020 4:30 PM 08/02/2020 4:45 PM Confirmed WH [facility] 09/15/2020 9:00 AM 09/15/2020 9:15 AM Confirmed Patient Education Information: Normal [facility] Inpatient Patient Summaryon 07-31-2020 Inpatient Patient Summary [address] [address] Patient Discharge Instructions PERSON INFORMATION Name: MYA [...] Address: When: Funmilayo ESCOBEDO [address] [place] [id number] Business (1) In 3 days 08/02/2020 Comments: [...] provider. Type Location Start Finish State SOV [facility] 08/02/2020 4:30 PM 08/02/2020 4:45 PM Confirmed [facility] 09/15/2020 9:00 AM 09/15/2020 9:15 AM Confirmed [...] Leaflets: You may receive a survey from [employer] asking you to rate your care experience. Your feedback is important and will help us understand what we do well and how we can improve the quality of care we provide to you, your loved ones and our community. It?s an honor to serve you. Thank you for choosing [facility] Consent for Treatmenton 07-19 Consent for Treatment [id number] 0#1.00CD:127 [facility] Consent for Treatment [id number] 8#1.00CD:127 [facility] Insurance Correspondenceon 0 07-29-2020 Insurance Correspondence [phone] [id number] 41#1.00CD:127 [facility] Insurance Correspondence Off iceon 07-29-2020 Insurance Correspondence Office [id number] 5#1.00CD:127 [facility] Nursing Assessmenton 021 Nursing Assessment [id number] 1#1.00CD:127 Normal [facility] Ambulatory Clinical Summaryo n 07-28-2020 Ambulatory Clinical Summary {[id number]}CD:[id number] Normal [facility] Obstetrics Office/Clinic Not jasmine 07-28-2020 Obstetrics Office/Clinic Note Chief Complaint OB visit 38 weeks . Obstetric History History (1,0,0,2) # 1 Baby 1 Outcome Date: 2008 Outcome: Live Outcome or Result: Vaginal Gender: Female Gest Age: 41 weeks Wt: 3232 g Hospital: [facility] [place] Labor: -- Child's Name: -- Baby's [...] trimester) Ordered: Office Visit Level 3 Est 36335 TH 2. Supervision of high risk in third trimester (O09.93: Supervision of high risk , unspecified, third trimester) Follow up in 1 wk. Ordered: Office Visit Level 3 Est 18387 TH 3. 38 weeks gestation of (Z3A.38: 38 weeks gestation of ) Ordered: Office Visit Level 3 Est 03446 TH Follow-up With When Contact Information [facility] In [address] [place] [address]- Additional Instructions: Problem List/Past Medical History Ongoing Attention deficit hyperactivity disorder Chronic fatigue syndrome Depression during Insomnia Obesity complicating , third trimester Ovarian cyst Supervision of high risk in third trimester Historical Medications Multivitamins, 1 tab(s), Oral, Daily Allergies No Known Allergies Social History Alcohol - Denies Alcohol Use, 11/21/2009 DENIES, 04/14/2020 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 ? 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 ? 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 Health and safety ? Rectal thermometer. ? [...] ? Consumer Product Safety Commission: www.cpsc.gov ? [place] [employer]: www.healthychildren. org ? Safe [...] 01/17/2009 Document Revised: 01/17/2018 Document Reviewed: 12/25/2017 [employer] Patient Education ? 2019 [employer] ([employer] [facility] Coding Summary.on 07-27-2020 Coding Summary. CD:[id number] Gh0bWw+PGhlYWQ+PE1FV FMhB77cjNGpyR1IP7xGO H4MFHIWVRZVUC0TMB0ud ZU2JVccC4MdnuXc FosxnGTlAL70NSs9UYI4 rJnoIOajxQ4pkQQbA6m6 SlZkIQ05wT62OVgoPZFu JmT9QoAubrpqpUBg X5zgQhIhfQQbXfp+PHRh YmxlIHdpZHRoPScxMDAl YfXssCplHF3pSe2fXXWn LWNvbGxhcHNlOiBj e3yqYGFmULahNN2gqIxr T1ZcgKR8QRDzc9e8Bc56 dHI+QIIoXIN4aAenGYgv v793CvOkm4erSNQ4 dZWfXLqeCPE5B99xj7X9 FRKtIQBaYVC9lNC0aQ7j kRjkafwlN1OxkCGuYvJ2 HIB3lECjpV8qnDjz ismdpP1pAjy+U93FFE2H KADKIL0ESqs8A7CbWabp dHI+AD10VDYpWO14xARp vRGum2wgjVo3MsUr CMUqDMF9iQmpFRiqo6Vq MBYjD75afNMgw4H5IQGu vJryeVPxFkWxjNR2hG5q NVulstkgb5kvrehx Unbyg5zzsy44yU83E78k SOrlMRSrXWN2FBKqMGFl xFacjp1syI4jLc6+IDxj z8xlw5cklUk4ClAk XGRsvkHfgNdmKDO9e9Wz Ge28E2KlbCzmh5WtRdu9 no66yZPkx7Z9kCZ8IWwi DDPdbF1lHIjiJbF1 SUIcMbOyfJ16rXLsNIwj Pe6orMxszKpzAN2aJXCf kdttLNQfgA9uHQCsjMQg vTcmJN0kWWBplnna r001XiViGEU9MBUrnQQm E9MjlF6pZcZfQVGoJIEc E0KqtUAsHObrF754KTdu BdF9RTBmxgQjA0Lw ZWBnuJnrOgF3q9J5Fv4Y d0KjsptbNQV8YLgaUEK9 CnL2UlSaQhA8L8GyRha5 IAJwnHwrLY8yT1Tw IRHazyrnpcapgWL9FYYc HKRnwP82qLQlUVsePq0e p6M7s996RAOwHEGuyS33 Vw7tpDwsFHUgtWRN oZ0skhnwg7jeuetzIqGf MOSeJWv9ZQv6ZFIlhRfq ByNxMYE0DgY2MGT2zBXz aR2bsQtopatifW2v Oyc+E83weM3cWNQ5RWS7 ywusDXDtvfDbXU79BS08 M6YcHzdjaOLenBU+PGRp doEceDwbNA9gXqWf m8xhh9RiAXiqU3JhNILj VOwoIrr0LHLlBTQ8eSV4 oD5pQIYgQWxsn8O6jKW7 S4AnlyOoai1cm5wd NSQnLOikU88fbWHgt4R7 IDVzhOG9JCYutIcqAtEn dN62Bbr+CDQxrCrqy5Fi Tcnus7cux5ldtKe7 IjMwJSIgdmFsaWduPSJ0 c1VjNx53V91cNVvsHXZh JWLpNKXoGQKspPhiac8l kT8fUy6+PGNvbCB3 tYO7aH9oIVRcCxY0FPfa J076JlKqiMTnQsfou1xg w6doiEu1MnRtVNEiheGm eMwtFMV4o2AxXs05 H50cRKnwBYJuVFMfGSEs QCIfdHtoec3wkO3lUx5+ XH3fw5lerq34tW16cBI+ IHFiXMW7qSugQLpl GJXbwM9oKFjsYzT0BNRg YoHnnK96zPDbBZvhJo7b eLsyxViwPT4zABKdoccs v184RwXav5glMYSm fLEbOFdzSUR6O69ob9H6 RECgZLKhAAI3jTB6yL3c bGlnbjogbGVmdDsgdmVy kGykDVpqRRdxT130 IHRvcDsnPlBhdGllbnQg AnGpIBz3Q4SoVib4IHWc yOeaSH3ewJRhGHtsKc2x sXqdlDovHU5gOCCz qdwuo639GbBic2hgKORu fKMlLEmiBQP6V14eg0T1 DRLxJYNyCEF1xPP6wO0r bGlnbjogbGVmdDsg beQotDhtSNkpLEkhR247 IHRvcDsnPkJpcnRoIERh eTG3WW83TW49lKFdj1L8 sNX7P9ZkSBNrnfgt gtwoxDP1AQUdVXCnlB56 Vy5xoQrqLs0jQJZzWLO7 MYSheYChT0SyxX9nLcUt XLUuMOFwQ4QmpKIu IKzmN016VOgcDhJ4TUNl fuTlU0YnOUXasCmkVkP9 b3D3Aa9PT2G1CC84EV91 zWSbv5R3yMK4E8Nh TBDvlfquwefahIQ7BUTb RWCrqC90Ez7kgDerCk9z HVPxCON5HRDdhGXkM8Wo oP3dBsZrIDRcECBp S5BncCBbYIisY746YWvj RcZ2BMUvhqBjY3HnZBVe xIxwRbF4u8H2Bs2KVFx2 AZ65RC87yNXut6N0 yXB9V2SqVEQbsmutmqlo tJK3STBoEIUabO08Vi0q iXyeQr6dCPVtVYM9HEHv mJZqD1DmsK6aSgLe TYXiZKZhZ5XfeDLxDTkz O238OOapIxI4RVKwpiNv L4FhPTXjfPgeQyG1z7B3 Fi1FPLAjWP59QOA6 hMI6NC93AA28I5ObYfdz dGFibGU+PHRhYmxlIHdp ZHRoPScxMDAlJyBzdHls BD4aPs1jZMXzOXKp aVyfnKVxDuGxh8inRETv IBzdEY3xxAxaD0QgrJP7 TDQsr8w5Ym73T34qO5Rh dXA+KAGdeBS5oVQ2 nK5xNqIoLuK1CGgtW389 YmUldLOxAeqwm4gwp0ph iAd8IiT2QVNiglWbqKgb QQP1l4JeEh59W36j IHdpZHRoPSIxNSUiIHZh tExofv6suG0xFp2+PGNv mKA9yTV4uU6bAyBpGdS2 BZpeI819HsXwwKLq Tckpx7skp0kngWk2KcLd CDLiizWaoCraISU9m4Ff Bh50X5JywBxlm4PcMhn6 se49yLFka5D7vTC6 O0VrFXBgvbztjNNlkQhk PR4eFQBgmcnfUJEloM3l OCFcL5q1CtItOmJ7WKeo B8BwmaV3HUCdcYKo NOgqWBC5J34qv4J3LPOa GPHzKBQ0mYB1kX3qpWvp bjogbGVmdDsgdmVydGlj HCdqHIvxI930BHZe rUaxKNLyfR8kPLRsxIKp rGsnEV3gPYBvmgbfNvVH CipQFu0uPDKZWhTFL0Zt TDwvdGQ+PHRkIHN0 yAmlBSklAQTfqU6qKCPl E1y4HdQjYjN6UXrlV5Uo TOJnwjvyLv55eD5wLuQa HbE7PKpkS1ZoskI3 ZPAcbMAvHQuzQPY5H47e t6N4JPUySKUiIEV3vIJ7 eH1ytZqseoojxIZitSpy dmVydGljYWwtYWxp C413SSVvjWdvOjB2BiXj EbA1IMY0L9IhAeg0PHHt dTcmIX8ftYKaFWtxHo5e lZjzoVxkQL1jWOVs shutCXNgjM7pYKAouIRp bGszKO7sMFFloahec495 JmOhHPF6GJTdiYAoN5Wx eY8rHtEgGRCcEESe L5BqdNPzDPvdH554LTsd JxG5HFLmiqFlH8ScUVHr pNnvCwW6a4B3Hn4rDEWK ZWFyczwvdGQ+PHRk LOF5tFgpBZubNXFpfK1d NMXwU9r2TtNkNhV6SJep Q8WgMDRntajmOu51fI7i VxNeIzW4IFekY1Sr afE4AUVegZCcMDmdLIN2 C08ne5D4QWEsFPCiOIB5 aCY5pO3umZplqxdqvLQt dDsgdmVydGljYWwt ESdcT464HYLqmBklJqEl bWFsZTwvdGQ+PHRkIHN0 oDbsMSzdFNGtiN5zVZDs C1f8RgGmRiO9XUop L9TkDDFpgutsGn52uW2n IlNtWjA1EDmjC2CyczL7 FVUyhOCzEInbWEL1Z92h d1N3UEHdMYGaREJ2 zXT7xH8lbOhspvtziLTf dDsgdmVydGljYWwtYWxp D147AKKhdRnfYl0KHJRx aWFnZTwvdGQ+PC90 un87A8TlIqusFyn1OHHz OFX4vQB3fK4dWMXkWVnv w8I7gOG3F1WcnzSyib5h k9onQINvDYyjX65i zDGdx8S1HLNrjFT6UWIy yLerEcWqtR38Pcx+PGNv yZyxk3KmGmvgg9fds8ql fTx9VqRxYUNqdnBk zGyvKDU1h0UpAp61M31z IHdpZHRoPSIzMCUiIHZh xJdlnn2ngK8oOs7+PGNv kXD0jXU9jM7vBuOt MhU5UXvvJ720DhVwnVHx Asbdj0sfb8cksDe4UmMr GUXfxqVwdYplZZX0i0Zy Pw04U6EjzIdjf3Mj Nfr7gi66bYYvy9V7xWO9 F0YwIAPybktggNMryJdp RP7vVFOiluhgVKYfoJ3z QNQiR8v6JlHwYpT9 DYuwH4ArliI2SZOpoVYg KKNveTCTzC7jnqrnr0mx kkipNcShDVHsUYx8AMj5 LWFsaWduOiBsZWZ0 YiK5RSY0jWPzkU7toDwp xxnpgM5gSsd+VBh9t9hx wRUjEC2jdHY1IJ66SA81 mNSfm8G3iXV7Y1Yn RAHuafdkledglFQ8LOZq QITjfD01Ck5xgJcqUn5x AGWwSLZ4GGJnfIZfR7El vR3zUjPuTMMzKGJe W0SivPGnZGrtY717LYsh PsP8YIGgqlAwK3JwIVBx eSitOzF1j3W4Jl6WMX52 UQ13HT06cAOuf1N9 xJI9V9WdBEQdhfluelbs uIF9DUFsTHRdkP15Ll5f sHzzEy0vDXPlRBK2ZNEp kXPaH8UgqO6sXzUy LXWxAJLkO7JxtLKhXKzq V004PHvuThK7BLMxmsQh S3VoINShjDyjHiU7j8E2 Zg3NSq50XM98YL68 uTVwc8B9mHV0Q9AcWYKq vvnberibnQK1ZLKaJMCr uV02Oe5vuAzrBf9rZFXc ROA5ZEHpaNPqU3Ab fA7mCmLnTIIaNRAtE6Vf cEKoDRgfX622IJwiKwN1 EHUkuxEnM0LrIJNicCyd BnE3r0C5Py1HZCuh vhe8J6CyKlikwUC+PC90 EZHvUJ47xHPrfXYgx1fu oXp5NaFwRWYmDXB8iEhs DVuab0HyHBZeR21n bGFw (more content not included)... Normal [facility] Consent for Treatmenton Consent for Treatment [id number] #1.00CD:127 Normal [facility] Discharge Instructionson Discharge Instructions [id number]#1.00CD:127 Normal [facility] Comment on above: Other Comment: incco rrect title Discharge Instructions [id number]#1.00CD:127 Normal [facility] Inpatient Clinical Summaryon 07-26-2020 Inpatient Clinical Summary [address] [address] Clinical Summary Person Information Name: MYA MYLES [facility] Age: 30 Years : 1990 Sex: Female PCP: Chao Blackwell III, DO Marital Status: Single Race: White Ethnicity: Non- or Language: Dominican Visit Id: Visit Reason: CONTRACTIONS Speciality: Acuity: Enc Type: OB Triage Med Service: Obstetrics Arrival: 07/26/2020 14:59:40 Discharge: 07/26/2020 16:40:00 Dispo Type: Home (Routine DC) Address: [address] [place] [address] [address] [place] [id number] Provider Notes: Diagnosis: Problems Active Insomnia Chronic [...] Follow up: With: Address: When: Funmilayo [place] [address] Business (1) Within 1 week Comments: Call for any problems. Call for fever > 100.5 F Return for contractions closer, longer, and harder Return for decreased movement Return if ruptured membranes or vaginal bleeding Type Location Start Finish State SOV [facility] 07/27/2020 2:45 PM 07/27/2020 3:00 PM Confirmed SOV [facility] 08/02/2020 4:30 PM 08/02/2020 4:45 PM Confirmed WH [facility] 09/15/2020 9:00 AM 09/15/2020 9:15 AM Confirmed Patient Education Information: Normal [facility] Inpatient Patient Summaryon 07-26-2020 Inpatient Patient Summary [address] [address] Patient Discharge Instructions PERSON INFORMATION [...] up: With: Address: When: Funmilayo [place] [address] Business (1) Within 1 week [...] participating provider. Type Location Start Finish State SOLeila [facility] 07/27/2020 2:45 PM 07/27/2020 3:00 PM Confirmed SOV [facility] 08/02/2020 4:30 PM 08/02/2020 4:45 PM Confirmed [facility]ENIDO [facility] 09/15/2020 9:00 AM 09/15/2020 9:15 AM Confirmed [...] Leaflets: You may receive a survey from [employer] asking you to rate your care experience. Your feedback is important and will help us understand what we do well and how we can improve the quality of care we provide to you, your loved ones and our community. It?s an honor to serve you. Thank you for choosing [facility] Normal [facility] UA With Cult Reflexon 2020 Bacteria LM Ql (Urine sed) TRACE Normal Trace [facility] Comment on above: Performed By: #### 2 [id number], [id number], [id number] #### [facility] [address] [place] [address] Bilirubin Ql (U) Negative Normal Negative [facility] Comment on above: Performed By: #### 2 615989, 4315368, [id number] #### [facility] [address] [place] [address] Clarity (U) CLEAR Normal Clear [facility] Comment on above: Performed By: #### 2 634225, 1605649, [id number] #### [facility] [address] [place] [address] Color (U) YELLOW Normal Yellow [facility] Comment on above: Performed By: #### 2 517218, 5834308, [id number] #### [facility] [address] [place] [address] Epithelial cells.squamous LM.HPF (Urine sed) [#/Area] 5-8 Normal 0-2 [facility] Comment on above: Performed By: #### 2 680656, 9994581, [id number] #### [facility] [address] [place] [address] Glucose Test strip (U) [Mass/Vol] Negative Normal Negative [facility] Comment on above: Performed By: #### 2 854175, 0080103, [id number] #### [facility] [address] [place] [address] Hemoglobin Ql (U) TRACE Abnormal Negative [facility] Comment on above: Performed By: #### 2 540833, 2631382, [id number] #### [facility] [address] [place] [address] Ketones (U) [Mass/Vol] TRACE Abnormal Negative Fi [facility] Comment on above: Performed By: #### 2 881469, 9082014, [id number] #### [facility] [address] [place] [address] [place].plasma/[place]. RBC (Bld) [Mass ratio] 0-3 Normal 0-3 [facility] Comment on above: Performed By: #### 2 600773, 4160627, [id number] #### [facility] [address] [place] [address] Nitrite Ql (U) Negative Normal Negative [facility] Comment on above: Performed By: #### 2 424926, 1393340, [id number] #### [facility] [address] [place] [address] pH (U) 6.0 [pH] Invalid Interpretation Code 5.0-9.0 [facility] Comment on above: Performed By: #### 2 272691, 4471607, [id number] #### [facility] [address] [place] [address] Protein (U) [Mass/Vol] Negative Normal Negative [facility] Comment on above: Performed By: #### 2 654343, 5461196, [id number] #### [facility] [address] [place] [address] Specific gravity (U) [Rel density] 1.020 Invalid Interpretation Code 1.005-1.030 [facility] Comment on above: Performed By: #### 2 439676, 7063679, [id number] #### [facility] [address] [place] [address] Type of Urine collection method Clean Catch Normal [facility] Comment on above: Performed By: #### 2 661467, 5880349, [id number] #### [facility] [address] [place] [address] Urobilinogen Qn (U) 0.2 {Henny'U}/dL Normal 0.0-1.0 [facility] Comment on above: Performed By: #### 2 642557, 0122284, [id number] #### [facility] [address] [place] [address] WBC Auto Ql (U) TRACE Abnormal Negative [facility] Comment on above: Performed By: #### 2 004508, 6124522, [id number] #### [facility] [address] [place] [address] WBC LM.HPF (Urine sed) [#/Area] 0-5 Normal 0-5 [facility] Comment on above: Performed By: #### 2 822628, 8568190, [id number] #### [facility] [address] [place] [address] Yeast LM Ql (Urine sed) TRACE Normal [facility] Comment on above: Performed By: #### 2 902713, 9494801, [id number] #### [facility] [address] [place] [address] [place] 07-22-2020 Consent [id number] #1.00CD:127 Normal [facility] Consent for Procedure/Surger yon 07-22-2020 Consent for Procedure/Surgery [id number] #1.00CD:127 Normal [facility] US Follow Upon US Follow Up [...] Positioning Vertex Amniotic Fluid Volume Normal Normal [facility] Ambulatory Clinical Summaryo n 07-21-2020 Ambulatory Clinical Summary {[id number]}CD:[id number] Normal [facility] Ambulatory Clinical Summary {[id number]}CD:[id number] Normal [facility] Obstetrics Office/Clinic Not jasmine 07-21-2020 Obstetrics Office/Clinic Note Chief Complaint OB 37w, baby moving, swelling fingers and feet goes down with rest and elevating them Obstetric History History (1,0,0,2) # 1 Baby 1 Outcome Date: 2008 Outcome: Live Outcome or Result: Vaginal Gender: Female Gest Age: 41 weeks Wt: 3232 g Hospital: [facility] Benny Labor: -- Child's Name: -- Baby's [...] trimester) Ordered: Office Visit Level 4 Est 85872 TH 2. Obesity complicating , third trimester (O99.213: Obesity complicating , third trimester) Ordered: Office Visit Level 4 Est 79366 3. Depression during (O99.340: Other mental disorders complicating , unspecified trimester) Ordered: Office Visit Level 4 Est 75545 4. 37 weeks gestation of (Z3A.37: 37 weeks gestation of ) Ordered: Office Visit Level 4 Est 70339 Orders: metronidazole, 500 mg = 1 tab(s), Oral, q12hr, X 7 day(s), # 14 tab(s), Refills(s) 0, Pharmacy: [facility] #[id number], 158, cm, 07/07/20 20:05:00 EDT, Height/Length Dosing, 88.3, kg, 07/14/20 16:41:00 EDT, Weight Dosing Follow-up With When Contact Information Funmilayo ESCOBEDO MD In [address] [place] [address]- Additional Instructions: Problem List/Past Medical [...] Protein Urine Dipstick: Negative (07/21/20 16:41:00) Normal [facility] Comment on above: Result Comment: Elec tronically Signed By: Funmilayo ESCOBEDO MD\.br\Date and Time Signed: 07/21/20 17:39 EDT Patient Educationon 07-22-19 21 Patient Education Obstetrics and Gynecology Score [...] Reviewed: 07/07/2019 Elsevier Patient Education ? 2019 [employer] [facility] Provider Letteron 07-21-2020 Provider Letter July 21, 2020 To Whom It May Concern, Mya Myles is scheduled to be induced on 08/04/20. [facility] [address] [facility] Ambulatory Clinical Summaryo n 07-14-2020 Ambulatory Clinical Summary {[id number]}CD:[id number] [facility] Obstetrics Office/Clinic Not jasmine 07-14-2020 Obstetrics Office/Clinic Note Chief Complaint OB 36w, baby moving, [place] in morning, feels like underwear are wet and has to shower frequently. Contractions all night and not able to sleep Obstetric History History (1,0,0,2) # 1 Baby 1 Outcome Date: 2008 Outcome: Live Outcome or Result: Vaginal Gender: Female Gest Age: 41 weeks Wt: 3232 g Hospital: [facility] Benny Labor: -- Child's Name: -- Baby's [...] Test Q0114 Office Visit Level 4 Est 58465 NC 2. Obesity complicating , third trimester (O99.213: Obesity complicating , third trimester) Ordered: Fern Test Q0114 Office Visit Level 4 Est 15361 NC 3. Depression during (O99.340: Other mental disorders complicating , unspecified trimester) Ordered: Fern Test Q0114 Office Visit Level 4 Est 32422 NC 4. 36 weeks gestation of (Z3A.36: 36 weeks gestation of ) Ordered: Fern Test Q0114 Office Visit Level 4 Est 91399 NC 5. Bacterial vaginosis (N76.0: Acute vaginitis) Ordered: Fern Test Q0114 Office Visit Level 4 Est 42385 NC Orders: metronidazole, 500 mg = 1 tab(s), Oral, q12hr, X 7 day(s), # 14 tab(s), Refills(s) 0, Pharmacy: [facility] #[id number], 158, cm, 07/07/20 20:05:00 EDT, Height/Length Dosing, 88.3, kg, 07/14/20 16:41:00 EDT, Weight Dosing Follow-up With When Contact Information Funmilayo ESCOBEDO MD In [address] [place] [address]- Additional Instructions: Funmilayo ESCOBEDO MD In 1 week [address] [place] [address]- Additional Instructions: Problem List/Past Medical [...] type 2: (more content not included)... Normal [facility] Comment on above: Result Comment: Elec [...] 05/13/2008 Document Revised: 07/07/2019 Document Reviewed: 07/07/2019 [employer] Patient Education ? 2019 [employer] ([employer] [facility] Coding Summary.on 07-12-2020 Coding Summary. CD:[id number] Gh0bWw+PGhlYWQ+PE1FV QAcZ63rnWBkqP5CC0uXU N0YFHENDMRFEK6RYM5yj UL2XLnrJ0RujqOz EmqgiFJbJI39YHq0BUN7 oGzlCGqtgW2ptYFwI4r8 FhItLT09cI95ZPllFASv JlK0FqImerqlaEEy M5qeBhAsxDExJxd+PHRh YmxlIHdpZHRoPScxMDAl NaQumUigRE7sRc8aLNPy LWNvbGxhcHNlOiBj h2kbDGTyVSziVY5snJwj F4RqtJU8CUUtr9c9Ci13 dHI+CQUcGQL3qUawUWjk h311OkJdx7ybHSU0 yAUlKScgJHB9X32ar9F7 PCFgKNMeXCM5lKL5bR5p mAcqsalgJ0TlbHNzUlJ3 ISR4jIYptX0gcMoc pskmvX4jHew+M45KPW6T DJULKD4AAax8U6KdHepj dHI+PK94AZRdUS24uCGh lRPmg7qeiPt4HaBu DZWcWKE4tFrpCIuqa7Xy VZFpY30fdCAao7C0PCZs bXwxoZKoRzJcmGD6mP0f ELjlmhaok7aihlkc Zujgx8jgka03dQ17Z98o GYmhKQQbVZO9GKMmTBSq dPcsyb3djC6jTi2+IDxj y4uyh4yaaRe0VvUe FTArfmOpbRzhYKG2y4Ix Km42K6AovKnus7SoPvf4 lt19cDZtr4W8qPO2QGwk UCXcsK2aQNbyRwM7 JUUfJpAevC01vXYlIQqh Ev0tyVpdxZvfPQ3xYFSl pdtsHDVdxD3mDTObgJJf aKsxRW7mSJQsjaiu y017YkZxOWO2KQFtdDOd O0XyfV1tFsVhQWOnPDFw T8MnoFXoDUmgH385GOsr RzH3GUMqhnHkY1Lw KIZeyQhuPzN9q6H1Vo2M p4GarctmZEQ0XWrmIKY7 CwN2SaEbOsM0D3VxRzx8 GZMpyKscKV9wU0Qc QTVpcoyxqzkuuKG4LOMb GBPqdK87yYMfUXyfIk1u l6J0s855UTXlPCNtlZ04 Sq9vdFbsUGXxvVSY xM7gxzyxk3faqjktPtKq BOAtVLv9ESx1DZDouBah DeZyQVP3IlB5AEN2uJTi sP7skMucvxdltO8w Oyc+K80hdT1vKMF1FKR0 tuenTDGoznScVD58DE50 X7XjRfgjqQSshWJ+PGRp ydQedQkvKU4hSzNo v9izo3SjLWukN4TzLYHn DJzvAac7UBYmBFG5yKD1 hW9rUDNbNPuvl7U1pZO3 P6JqvuZntr3wx8wu JUJdCLieO30ihKSym2Q0 QAIefHT0VFXdbFdsMlUr fL23Vll+LKVgrFzde8Hr Axaio3kjt6fddZd0 IjMwJSIgdmFsaWduPSJ0 j3TrHy92Z53uJRhfFMKo FSJxVOVwKIQdoWclzd7g qE8nBt8+PGNvbCB3 dEM1mP0kXBNjIwO2FOje Y618KnQlsTDqXzbom5go x1bcoEs6NfZrAEAmpbGd lFmzQHL6u0BvGu59 C81zVSgwPAQnLOPrVTYp ZVBwuYehfh8pbB2bOo1+ UN9mi1dhti49rI50bDM+ VQFcWVN5cAspTFoh AFIbuD7gUSdnHrA4OTHz HeQyaN90lRMgDHuuUb8x xUawzIjpOC8hSPBhbpkv t506TxLtu0kzZUFd tNHxRJpdCGX1E95gg1S2 DFUzWDPaZPE1lIK2sT3w bGlnbjogbGVmdDsgdmVy pJrbKRtmUJyfB060 IHRvcDsnPlBhdGllbnQg EgReXTv5W7EqJuv5QFHe nBbdOB4cbARqXHmdFd6q yEbgcDmwME4lAFRw newpt139HpSdu6txGYYj tMAiXOiwOZE8D02ds8S6 UAZfYQVnKPQ9mJM6bA2l bGlnbjogbGVmdDsg uyKohWanVDpkPNrbF716 IHRvcDsnPkJpcnRoIERh qUX4WQ57XJ49xZXoe5Y3 oQZ2E7XyAJWphckd xfaqmUT6WSMmXXBfxN93 Tl8odQkjRf1wMJAaVMG3 JXMxmVPqK6EuvK6uIbRr XAOuKNQpB0EofIXe QIqjI810GGmgNeZ4TZSq kfWxC6FgJCYjeYvcZgQ7 g8T2Eo7BU1K5BU27XD76 rFMis1D2rCB3X8Kx DQTxtdrdbykrfRG4SYKh FHUaiX66Sy8kgBevCt9i NBTnDYW1VOEtlQObR3Wx eV9dKhHvCKAaLBGl S3BcxNZuEDecN024EFee QrH9JHPvpuXmT6GuDPZw cHmjMrU9a4W0Mo8MBJo9 NW56NG85kAFki7I7 vGY6N2ZyKYHtdcvystmw vTY6BODqLDYjaT17Rc7h nHyiHn2pHAAjJKS5XECx eUThF3RerP9uCqTf GGNtIGEiY2QsjERqJQfv X002JBraKbR9ADIdhoTb M2QhNKKllHpoWbU0a4R3 Nh9HRTOyXP30RQU3 cQI9PP09MW04J5CyQfjw dGFibGU+PHRhYmxlIHdp ZHRoPScxMDAlJyBzdHls BY4uRm2gJGAdSCBz bJtrrJXiCqEbk0pbNUPx YNcqHC0jcHgmW1FwwWH5 UCVrn6a9Tc61U88tZ1Bq dXA+KQAqyFF9fLS5 vA3gExKcNoP9YUdaP136 XpHghHYdNgery4jie9gx mCj1KeC3SLFctqTmqHoq JRZ9f3UxBt23N19j IHdpZHRoPSIxNSUiIHZh eUxpns5kwN9hGv3+PGNv uNM9mJN0pP6gJmAcXmD4 ZAgrR767LrNkzNFf Spmqy1utk1uifFb3SuXv KOUnhjPxwUemIGW4e4Yc Pa87P2ZfdFodz2GtDtv0 ed40qHGer1A4pPX2 D1XhZSFgogshtAThzGkt UH5aNHAnnlccSYAprS3c YRArM3i3VeKwHfH0FSjl M6AslgZ2WGYnpSQz MAmeWOJ7C47aa8N1ENEy CTDyEEA9bCP0tR1zjVae bjogbGVmdDsgdmVydGlj JAgqSUqnJ749MNFg vIvkHHOgfW1kYZBsuUBi uGozNM0tXKEmqswcArYT NnpJEx2aLUAOWeEAG6Uh TDwvdGQ+PHRkIHN0 cIahRPjyHPIhiC2yATMs Q5y3XhXjIeK0EZbaV1Hq BCZndkwfPf77kH4bFzRc RuO1EImgW6WechS7 NXCncKSaXCqcOQU1A88n z3V7YEKpWQKwDVH9tOW6 iO3gbYgmaiignWFpkDbm dmVydGljYWwtYWxp F449KNRhoVbfAhL6MpSh UeK7MMW3K3HjMce4YXRl oNkqYQ9kpJApNFzkUx7l yQhsrRmtNH7bJSQl ljkhCMRbnA2xLIRouNLl nFyzUS2wPQFxthyem922 CfPlBHT9HLHitDSkS8Gv oO9wAmKpQRBhLTAc F1IpaWZqAHegG913DNqi LlZ2HVLcpgHgM9JyPXAn rLhdXoQ7l0Q4Mi8wMOSU ZWFyczwvdGQ+PHRk NBQ3gBahQHeqRGDldI6c NVGrL5n5QyPjLrB7VYwi J2BkLGXkzphmBo83iW3s PsRmXtI3TCugH1Dj myZ5RGFwuEOiXXkyHYK7 T78nh7H4LYLxZTXdBTZ0 lVZ8pK3znKcecwsdaZLu dDsgdmVydGljYWwt ZGtkE038LNQtyGxyVhMb bWFsZTwvdGQ+PHRkIHN0 cOgeOQgdGPTekY1iDRIy E2j9RsAqAoO9OSxs O8YfFERxanywYj79nP4a FuSvMkE6PQodJ2VjvxS2 SBWucFQaQRekXJQ8C29m d9C1WMBsIIJhSGO8 zRL9eI8kqAaamphvrNEx dDsgdmVydGljYWwtYWxp Q317TAUbbDpvHx6ZJOHr aWFnZTwvdGQ+PC90 vu13R7KtOllnUcy9JGFh IML2gSD5yA2lUTNoRYrh m5T1bFI3U3AcvhWebq6q q6tsRUXcGNjlK76r gSWfm3Z6NNSxnKG6NSMv dWjrTtBdkA59Xjk+PGNv eOlkj2QbEgcsy1kcc5pz lXx3RpXvYBDylqPs yIobLRM9a1EeIp29B20z IHdpZHRoPSIzMCUiIHZh kLkkbw0qbI0zCb7+PGNv bFY8bYS2qK1zWsLa FbT3BUtsC393OhTopNFs Iansv7jnk2epbOs0EfQq GHZzbsHohLydCGB8i1Fy Xe37O6BehFphh0Cg Bfn2kl48fXMmf2A9pFM8 F3WoVMJkhiqlwOSnhCts IQ2gFNEynhmaVEScqA0n OEWiL7n3JzSrNcW0 QYemY2BewtI7NIOlfAOa CTAcsJIVuZ2srzuuw3ok rtlgNyDkUYSlDMp3WWu9 LWFsaWduOiBsZWZ0 ZqK3BPA5vMEqyN0jiCtx nsatjB3gOzu+GVk3a0eh oIKvHR5qsXS5RT00WP07 xEXaf1Q7fQA0H0Ch GDXwkwfqfqkvgGK0UUDo ZKJqxN90Jq5knDstZq3j OWXqWIQ7ONLqpUQnZ4Ue jV4wObQxGSYbAEVb X9QtaCKdIPbhB718EVes LkY3QHCwegUnA5BpSSPl kOjoReQ0n8E8Mc8BFZ81 DY03PU57jINvs0R4 eLC6X7HtIFXfuoaxncuq bRM4ELGxEBHpvP84Om0q tDsjOw4rGUGgLTG3IVEe dPOoW1JksH8wRjPu MZFjSEGvV0WbaEZcEPyl P252JQhpWsL7IRHhhcUo G8UaTWGlfLbzTzF8l8P6 Dk4ANl22NL76NH33 dIBsr7U9vFD4F2SeWKLb khgfoujopVW0KLQrKFXh hJ03Or3vdYtdEj1qXVDo WYO8DAZinEPwW6Hl fK1iSxSvUCQpUNLlF7Mv dQBxGYqlI930UVgnZpZ4 FJZwxcGtI1EbQMIyvUfh XuX3c0U9Qd4KAIvk nln4M3QaEvmxsCR+PC90 KMThOF06xMNilNJxr1vo bBq6IlJvCYMiQMU7aLdf TEqvo9RdUOGuD01j bGFw (more content not included)... Normal [facility] Insurance Correspondenceon 0 07-12-2020 Insurance Correspondence [id number] 8#[email or web address]:127 Normal [facility] Insurance Correspondence Off iceon 07-12-2020 Insurance Correspondence Office [id number] 1#1.00CD:127 Normal [facility] Nursing Assessmenton 021 Nursing Assessment [id number] 8#1.00CD:127 Normal [facility] Group B Strep by PCRon 07-09 Group B Strep colonization by PCR Negative Normal Negative [facility] Comment on above: Order Comment: vagin al swab Performed By: #### 2 [id number] #### [facility] [address] [place] [address] ABO/Rhon 07-08-2020 ABO/Rh Positive Invalid Interpretation Code [facility] Comment on above: Performed By: #### 1 [id number], [id number], [id number] #### [facility] [address] [place] [address] ABO/Rh History Checkon 07-08 ABO/Rh History Check Verified Hx Blood Type Normal [facility] Comment on above: Performed By: #### 1 [id number], [id number], [id number], [id number] ####[facility] [address] [place] [address] ABSCon 07-08-2020 ABSC Gel Interp Negative Normal [facility] Comment on above: Performed By: #### 1 [id number], [id number], [id number], [id number] ####[facility] [address] [place] [address] BUNon 07-08-2020 Urea nitrogen [Mass/Vol] 7 mg/dL Normal 07-08 [facility] Comment on above: Performed By: #### 2 [id number], [id number], [id number] #### [facility] [address] [place] [address] Blood Bank ID#on 07-08-2020 BBID# [id number] Invalid Interpretation Code [facility] Comment on above: Performed By: #### 1 [id number], [id number], [id number], [id number] ####[facility] [address] [place] [address] CBC w/Indiceson 07-08-2020 Erythrocyte distribution width (RBC) [Ratio] 13.6 % Normal 10.9-14.2 [facility] Comment on above: Performed By: #### 2 [id number], [id number], [id number] #### [facility] [address] [place] [address] Hematocrit (Bld) [Volume fraction] 28.9 % Low 34.0-46.0 [facility] [facility] Comment on above: Performed By: #### 2 819164, 0053874, [id number] #### [facility] [address] [place] [address] Hemoglobin (Bld) [Mass/Vol] 9.7 g/dL Low 12.0-16.0 [facility] Comment on above: Performed By: #### 2 209416, 7463186, [id number] #### [facility] [address] [place] [address] MCH (RBC) [Entitic mass] 27.4 pg Normal 27.0-34.0 [facility] Comment on above: Performed By: #### 2 624951, 4798514, [id number] #### [facility] [address] [place] [address] MCHC (RBC) [Mass/Vol] 33.5 g/dL Normal 31.4-36.0 [facility] Comment on above: Performed By: #### 2 674114, 0196047, [id number] #### [facility] [address] [place] [address] MCV (RBC) [Entitic vol] 81.7 fL Normal 80.0-100.0 F [facility] Comment on above: Performed By: #### 2 325312, 3249186, [id number] #### [facility] [address] [place] [address] Platelet mean volume (Bld) [Entitic vol] 7.9 fL Normal 6.4-10.8 [facility] Comment on above: Performed By: #### 2 023948, 2795165, [id number] #### [facility] [address] [place] [address] Platelets (Bld) [#/Vol] 320.0 E9/L Normal 150.0-500.0 [facility] Comment on above: Performed By: #### 2 424632, 3080617, [id number] #### [facility] [address] [place] [address] RBC (Bld) [#/Vol] 3.5 E12/L Low 4.3-5.9 [facility] Comment on above: Performed By: #### 2 613014, 1230933, [id number] #### [facility] [address] [place] [address] WBC corrected for nucl RBC Auto (Bld) [#/Vol] 9.9 E9/L Normal 4.0-11.0 [facility] Comment on above: Performed By: #### 2 808636, 9028512, [id number] #### [facility] [address] [place] [address] Creatinineon 07-08-2020 Creatinine [Mass/Vol] 0.4 mg/dL Low 0.5-1.3 [facility] Comment on above: Performed By: #### 2 987920, 6174444, [id number] #### [facility] [address] [place] [address] Discharge Instructionson Discharge Instructions [id number] 8#1.00CD:127 Normal [facility] FSPon 07-08-2020 Fibrin+Fibrinogen fragments (S) [Mass/Vol] <10 Normal <10 [facility] Comment on above: Performed By: #### 2 855565, 6819816, [id number] #### [facility] [address] [place] [address] Stainon 07-08-2020 FMHV 0 mL Invalid Interpretation Code [facility] Comment on above: Performed By: #### 2 627090, 4465720, [id number] #### [facility] [address] [place] [address] Negative Control Negative Normal [facility] Comment on above: Performed By: #### 2 843161, 6450082, [id number] #### [facility] [address] [place] [address] Fibrinogenon 07-08-2020 Fibrinogen Coag (PPP) [Mass/Vol] 451 mg/dL High 200-393 [facility] Comment on above: Performed By: #### 2 328395, 6639241, [id number] #### [facility] [address] [place] [address] Hep Func Panelon 07-08-2020 Bilirubin.indirect [Mass or moles/Vol] UTC Abnormal 0.1-0.9 [facility] Comment on above: Result Comment: Resu lt verified by Discern Rule. Performed result UTC (Unable to Calculate) was sent as an Alpha code due the inability to calculate a valid numeric value. Performed By: #### 2 096747, 1438488, [id number] #### [facility] [address] [place] [address] Albumin [Mass/Vol] 2.6 g/dL Low 3.3-5.0 [facility] Comment on above: Performed By: #### 2 039506, 2004164, [id number] #### [facility] [address] [place] [address] Albumin/Globulin (S) [Mass conc ratio] 0.8 Low 1.1-2.2 [facility] Comment on above: Performed By: #### 2 194090, 3018147, [id number] #### [facility] [address] [place] [address] ALP [Catalytic activity/Vol] 108 Int._Unit/L High 21-98 [facility] Comment on above: Performed By: #### 2 510020, 3731808, [id number] #### [facility] [address] [place] [address] ALT No additional P-5'-P [Catalytic activity/Vol] 13 Int._Unit/L Normal 6-46 [facility] Comment on above: Performed By: #### 2 131709, 4454122, [id number] #### [facility] [address] [place] [address] AST [Catalytic activity/Vol] 22 Int._Unit/L Normal 5-43 [facility] Comment on above: Performed By: #### 2 419296, 0892405, [id number] #### [facility] [address] [place] [address] Bilirubin [Mass/Vol] 0.4 mg/dL Normal 0.0-1.1 [facility] Comment on above: Performed By: #### 2 950332, 7265790, [id number] #### [facility] [address] [place] [address] Bilirubin.direct [Mass/Vol] mg/dL Normal 0.1-0.4 [facility] Comment on above: Performed By: #### 2 825942, 6248659, [id number] #### [facility] [address] [place] [address] Globulin (S) [Mass/Vol] 3.4 g/dL Normal 1.4-4.0 F [facility] Comment on above: Performed By: #### 2 880764, 7804641, [id number] #### [facility] [address] [place] [address] Protein [Mass/Vol] 6.0 g/dL Normal 6.0-7.8 [facility] Comment on above: Performed By: #### 2 859725, 7008393, [id number] #### [facility] [address] [place] [address] Inpatient Clinical Summaryon 07-08-2020 Inpatient Clinical Summary [address] [address] Clinical Summary Person Information Name: MYA MYLES [facility] Age: 30 Years : 1990 Sex: Female PCP: Chao Blackwell III, DO Marital Status: Single Race: White Ethnicity: Non- or Language: Dominican Visit Id: Visit Reason: Speciality: Acuity: Obs Enc Type: OB Triage Med Service: Obstetrics Arrival: 07/07/2020 19:39:51 Discharge: 07/08/2020 21:22:00 Dispo Type: Home (Routine DC) Address: [address] [place] [address] [address] [place] [id number] Provider Notes: Diagnosis: Problems Active Obesity complicating [...] Follow up: With: Address: When: Funmilayo [place] [address] Fonemesh (1) In 3 days 07/11/2020 Comments: Call Dr. Kramer office Saturday morning to see if she wants to see you sooner. If not keep appointment. Call for any problems. Call for severe abdominal pain Call physician for heavy vaginal bleeding (more content not included)... Normal [facility] Inpatient Patient Summaryon 07-08-2020 Inpatient Patient Summary [address] [address] Patient Discharge Instructions PERSON INFORMATION [...] Address: When: Funmilayo ESCOBEDO [address] [place] [address] Business (1) In 3 days 07/11/2020 Comments: [...] Type Location Start Finish State WH SOV [facility] 07/14/2020 4:30 PM 07/14/2020 4:45 PM Confirmed WH Ultrasound [facility] 07/21/2020 4:00 PM 07/21/2020 4:45 PM Confirmed WH SOV [facility] 07/21/2020 4:30 PM 07/21/2020 4:45 PM Confirmed WH SOV [facility] 07/27/2020 2:45 PM 07/27/2020 3:00 PM Confirmed WH SOV [facility] 08/02/2020 4:30 PM 08/02/2020 4:45 PM Confirmed WH BIENVENIDO [facility] 09/15/2020 9:00 AM 09/15/2020 9:30 AM Confirmed [...] Document Released: 05/03/2009 ExitCare? Patient Information ?2009 DZZOM. Labor and Information normally lasts 39?41 weeks. [...] or tightening. (more content not included)... Normal [facility] Lyteson 07-08-2020 Anion gap [Moles/Vol] 9 mmol/L Normal 6-16 [facility] Comment on above: Performed By: #### 2 454668, 3276346, [id number] #### [facility] [address] [place] [address] Chloride [Moles/Vol] 108 mmol/L Normal 101-111 [facility] Comment on above: Performed By: #### 2 679491, 8412979, [id number] #### [facility] [address] [place] [address] CO2 [Moles/Vol] 21 mmol/L Normal 21-31 [facility] Comment on above: Performed By: #### 2 093894, 4489685, [id number] #### [facility] [address] [facility] [place] [address] Potassium [Moles/Vol] 3.4 mmol/L Low 3.5-5.3 [facility] Comment on above: Performed By: #### 2 658663, 6508887, [id number] #### [facility] [address] [place] [address] Sodium [Moles/Vol] 135 mmol/L Normal 135-145 [facility] Comment on above: Performed By: #### 2 964344, 1707935, [id number] #### [facility] [address] [place] [address] PT & PTTon 07-08-2020 aPTT Coag (PPP) [Time] 25.4 second(s) Normal 25.1-36.5 [facility] Comment on above: Result Comment: Hepa rin therapeutic range (represented by Anti-Factor Xa activity of 0.2 - 0.4 U/mL) corresponds to PTT of 56.6 - 109.0 sec. Performed By: #### 2 241481, 5625345, [id number] #### [facility] [address] [place] [address] INR Coag (PPP) [Relative time] 1.0 {INR} Invalid Interpretation Code [facility] Comment on above: Result Comment: INR results are specifically intended to assess patients stabilized on long-term Anticoagulation therapy suggested INR?s ?Less Intensive Anticoagulation? 2.0 ? 3.0 Conventional Range 3.0 ? 4.5 Performed By: #### 2 291776, 3776657, [id number] #### [facility] [address] [place] [address] PT Coag (PPP) [Time] 12.2 second(s) Normal 10.2-12.9 [facility] Comment on above: Performed By: #### 2 892262, 4428987, [id number] #### [facility] [address] [place] [address] Uric Acidon 07-08-2020 Urate [Mass/Vol] 2.7 mg/dL Normal 2.2-7.[address] [facility] Comment on above: Performed By: #### 2 047268, 7543758, [id number] #### [facility] [address] [place] [address] eGFRon 07-08-2020 GFR/1.73 sq M.predicted among blacks MDRD (S/P/Bld) [Vol rate/Area] mL/min/{1.73_m2} Normal >=59 [facility] Comment on above: Order Comment: Order Added by Discern Expert. Result Comment: eGFR is race adjusted. AA=. Performed By: #### 2 900236, 6046787, [id number] #### [facility] [address] [place] [address] GFR/1.73 sq M.predicted among non-blacks MDRD (S/P/Bld) [Vol rate/Area] mL/min/{1.73_m2} Normal >=59 [facility] Comment on above: Order Comment: Order Added by Discern Expert. Result Comment: Event Producer ramesh kidney disease could be indicated at eGFR's of less than 60 mL/min/1.73m2. Kidney failure is indicated at less than 15 mL/min/1.73m2. Performed By: #### 2 701064, 9246203, [id number] #### [facility] [address] [place] [address] AmniSureon 07-07-2020 PAMG-1 Protein Negative Normal Negative [facility] Comment on above: Performed By: #### 2 305076, 6958782, [id number] #### [facility] [address] [place] [address] PAMG-1 Protein Internal Control Positive Normal Positive [facility] Comment on above: Performed By: #### 2 451734, 9482539, [id number] #### [facility] [address] [place] [address] Consent for Treatmenton 06-19 Consent for Treatment [id number] 05 [id number] 3#1.00CD:127 Normal [facility] Consent for Treatment [id number] 05 [id number] 9#1.00CD:127 Normal [facility] FFNon 07-07-2020 Fibronectin. Ql (Vag fld) Negative Normal [facility] Comment on above: Result Comment: In [...] the antibody-antigen reaction. Performed By: #### 2 808692, 5862937, [id number] #### [facility] [address] [place] [address] UA With Cult Reflexon 2020 Bacteria LM Ql (Urine sed) 1+ /HPF Abnormal Trace [facility] Comment on above: Performed By: #### 2 211565, 1269323, [id number] #### [facility] [address] [place] [address] Bilirubin Ql (U) Negative Normal Negative [facility] Comment on above: Performed By: #### 2 892667, 0551376, [id number] #### [facility] [address] [place] [address] Clarity (U) CLEAR Normal Clear [facility] Comment on above: Performed By: #### 2 309924, 4314411, 790402581 #### [facility] [address] [place] [address] Color (U) YELLOW Normal Yellow [facility] Comment on above: Performed By: #### 2 193931, 8169043, [id number] #### [facility] [address] [place] [address] Epithelial cells.squamous LM.HPF (Urine sed) [#/Area] /[HPF] Normal 0-2 [facility] Comment on above: Performed By: #### 2 788294, 6276782, [id number] #### [facility] [address] [place] [address] Glucose Test strip (U) [Mass/Vol] Negative Normal Negative [facility] Comment on above: Performed By: #### 2 308429, 5869799, 667808244 #### [facility] [address] [place] [address] Hemoglobin Ql (U) 2+ Abnormal Negative [facility] Comment on above: Performed By: #### 2 878969, 4539618, [id number] #### [facility] [address] [place] [address] Ketones (U) [Mass/Vol] TRACE Abnormal Negative [facility] Comment on above: Performed By: #### 2 300015, 8010108, [id number] #### [facility] [address] [place] [address] [place].plasma/[place]. RBC (Bld) [Mass ratio] >30 Abnormal 0-3 [facility] Comment on above: Performed By: #### 2 053529, 7575930, 577647759 #### [facility] [address] [place] [address] Mucus Ql (Urine sed) TRACE Normal [facility] Comment on above: Performed By: #### 2 654740, 2949641, [id number] #### [facility] [address] [place] [address] Nitrite Ql (U) Negative Normal Negative [facility] Comment on above: Performed By: #### 2 227038, 4677197, [id number] #### [facility] [address] [place] [address] pH (U) 5.5 [pH] Invalid Interpretation Code 5.0-9.0 [facility] Comment on above: Performed By: #### 2 614791, 3947540, [id number] #### [facility] [address] [place] [address] Protein (U) [Mass/Vol] Negative Normal Negative [facility] Comment on above: Performed By: #### 2 990704, 0971715, 981484369 #### [facility] [address] [place] [address] Specific gravity (U) [Rel density] 1.025 Invalid Interpretation Code 1.005-1.030 [facility] Comment on above: Performed By: #### 2 160371, 5739212, [id number] #### [facility] [address] [place] [address] Type of Urine collection method Clean Catch Normal [facility] Comment on above: Performed By: #### 2 498626, 7403131, 993803061 #### [facility] [address] [place] [address] Urobilinogen Qn (U) 0.2 {Henny'U}/dL Normal 0.0-1.0 [facility] Comment on above: Performed By: #### 2 781291, 0461370, 784069932 #### [facility] [address] [place] [address] WBC Auto Ql (U) Negative Normal Negative [facility] Comment on above: Performed By: #### 2 270459, 9536755, 607527503 #### [facility] [address] [place] [address] WBC LM.HPF (Urine sed) [#/Area] 0-5 Normal 0-5 [facility] Comment on above: Performed By: #### 2 062200, 5648280, 125097192 #### [facility] [address] [place] [address] Ambulatory Clinical Summaryo n 07-06-2020 Ambulatory Clinical Summary {[id number]}CD:455187 Normal [facility] Obstetrics Office/Clinic Not jasmine 07-06-2020 Obstetrics Office/Clinic Note Chief Complaint OB visit 34 weeks 6 days. Obstetric History History (1,0,0,2) # 1 Baby 1 Outcome Date: 2008 Outcome: Live Outcome or Result: Vaginal Gender: Female Gest Age: 41 weeks Wt: 3232 g Hospital: [facility] Labor: -- Child's Name: -- Baby's [...] Stable. Ordered: Office Visit Level 3 Est 61776 TH 2. Obesity complicating , third trimester (O99.213: Obesity complicating , third trimester) Doing well managing weight gain. Ordered: Office Visit Level 3 Est 91247 TH 3. Supervision of high risk in third trimester (O09.93: Supervision of high risk , unspecified, third trimester) Follow up in 2 weeks for appt and growth US. PTL precautions until 37 wks. Ordered: Office Visit Level 3 Est 75068 TH 4. 34 weeks gestation of (Z3A.34: 34 weeks gestation of ) Ordered: Office Visit Level 3 Est 82248 TH Follow-up With When Contact Information [facility] In [address] [place] [address]- Additional Instructions: Problem List/Past Medical History Ongoing [...] Protein Urine Dipstick: Negative (07/06/20 14:59:00) Normal [facility] Comment on above: Result Comment: Elec [...] Document Reviewed: 07/23/2008 ExitCare? Patient Information ?2013 [place] [facility]. [facility] US Follow Upon Follow Up Exam Date/Time: [...] Yousif Toribio M.D. Transcribed by: [facility] Technologist: ADEN Technical Comments CLIFFORD 08/11/20 CLIFFORD Obtained CLIFFORD by US GA 33w 0d History 3 Para 2 Transabdominal Ultrasound Performed Placenta Location posterior Placenta Grade 1 2 Positioning Vertex Amniotic Fluid Volume Normal Normal [facility] Consenton 06-24-2020 Consent [id number] #1.00CD:127 Normal [facility] Ambulatory Clinical Summaryo n 06-23-2020 Ambulatory Clinical Summary {[id number]}CD:[id number] Normal [facility] Ambulatory Clinical Summary {[id number]}CD:193918 Normal [facility] Obstetrics Office/Clinic Not jasmine 06-23-2020 Obstetrics Office/Clinic Note Chief Complaint OB 33w, baby moving, swelling in feet. Having heartburn for about two weeks. Obstetric History History (1,0,0,2) # 1 Baby 1 Outcome Date: 2008 Outcome: Live Outcome or Result: Vaginal Gender: Female Gest Age: 41 weeks Wt: 3232 g Hospital: [facility] Labor: -- Child's Name: -- Baby's [...] trimester) Ordered: Office Visit Level 4 Est 58481 NC 2. Obesity complicating , third trimester (O99.213: Obesity complicating , third trimester) Ordered: Office Visit Level 4 Est 41500 NC 3. Depression during (O99.340: Other mental disorders complicating , unspecified trimester) Ordered: Office Visit Level 4 Est 01878 NC 4. 33 weeks gestation of (Z3A.33: 33 weeks gestation of ) Ordered: Office Visit Level 4 Est 74588 NC Encounter for immunization (Z23: Encounter for immunization) Ordered: tetanus/diphtheria/p ertussis, acel (Tdap), 0.5 mL, IntraMuscular, Once, Stop date 06/23/20 16:00:00 EDT, Routine, Start date 06/23/20 16:00:00 EDT EACH ADD'L [employer] Admin Component 50254 EACH ADD'L [employer] Admin Component 74167 FIRST VACCINE [employer] Admin Charge 98102 Orders: famotidine, 20 mg = 1 tab(s), Oral, BID, # 60 tab(s), Refills(s) 2, Pharmacy: [id number], 157, cm, 06/23/20 15:10:00 EDT, Height/Length Dosing, 86.7, kg, 06/23/20 15:10:00 EDT, Weight Dosing Follow-up With When Contact Information LAURA MACEDO, Funmilayo Ryan In [address] [place] [address]- Additional Instructions: Problem List/Past Medical [...] Protein Urine Dipstick: Negative (06/23/20 15:09:00) Normal [facility] Comment on above: Result Comment: Elec [...] keep your urine pale yellow. ? Take yecw-yyz-igdpudg and prescription medicines only as told by [...] 02/04/2006 Document Revised: 05/25/2019 Document Reviewed: 05/09/2017 [employer] Patient Education ? 2019 [employer] First Stage of Labor Labor is [...] when you walk around or lie down (Dickinson Mahmood contractions). This is also called false [...] monitor strap (more content not included)... Normal [facility] Coding Summary.on 06-12-2020 Coding Summary. CD:[id number]:[id number] Gh0bWw+PGhlYWQ+PE1FV BXvT86mfOOprN0VB6pCF Q3VDSXFPIWSZT1ARC3ki TE6RFgcS8PafnPw TiailEVdTL13JJb3KEU3 tXppTMohtS7sqBZjQ6t4 IwCuBU00dN70ZBozKDZh AkY9DlDkqwfhqMOt C2hdVwJsoCGnHbn+PHRh YmxlIHdpZHRoPScxMDAl RlZsuFvlBR4kTj0iEIZg LWNvbGxhcHNlOiBj c2lcRQZbKQxkRL8xaOzy D5YmuKK4DKPec7q0Wi62 dHI+WROhLBU3hPxdKIhp x999CnQtq0gqRDY2 zBYfFYjoFZD4O56lp3L8 PULhVQVgTOF0bLC1lE1h xAlafhobZ0PimGJkUbK7 QFV5fOOpeN1kpXxg xdhidW0gDmr+U96THK1M HWAHQQ0IJkr9P6UiZfuz dHI+OT83ZMByYO55uGXb sWYev3lpnRk2YiDj XPVkHII7jLfcFKvio5Ju NTOmL09qqYQyu0M5NBIy hPwimQXxNpNlsMG0fE7x EUjvfbeea2xhkdiz Uystu3mcpx83gU54S27o FIauKWVwSVJ3BRKoNVYo uVypsm8nmR3aMu0+IDxj b6poo5eofPu0EeEu JCSgbsMrqRmzCNN9x2Fz Vd54H6UacLjll4DqBmd5 md95oDCid4V5aTW1XTcc WGNenE6cYSmgYcD6 VRTsBxIaiI51qPRgOBfb Tk0iyMsqsJnhAW2vJJEm ayegWUTdtA5mZKAfjTLo dLqgVN1oHBYwizuu l881OqMpZNS8OCUdoOGg H3TknR5sQrXkBHCaQJYq V8JksWTdESohZ704PQbe MoX7MEXxawZhZ2Fw CFQatFeaSsQ5r4Q8Fg9Z h6IvutefPSO0BJasDFF8 SxI5NtOdHtI7M0XzXvj9 AEGnvPrfYE1yZ5Qm UORilmwjoqybzXE1AKNo SCPypO84nQJbYZjyDt0i e9K5l543AHKrYAZclQ50 Od1ijRdwFBRmlNKO mW2ifsyqp6paufcoRvZc PIEcFGy1QTk7EFPonXve SfPvZFC6BoH6UXA3fQLu cP1vhGviqelneF8y Oyc+A47cuO0yNEX9UKJ1 tetqICKpgyJhLK82PD92 H7CoEvzcjZUnmMD+PGRp neIxuVbcGU8dJsSp o9ias4SuMZutQ8TqVUVs ELizJqp6RJRbQQT3yQY6 cA1nSPHpSAdyz0E6qER6 L9OztbRjfu2ek9vc VBYaBPywZ65rpIJfn1U3 IESpqHW5JXZjxXbcNdGh hR17Esl+OFAxgFdwi8Fk Mvokq5zia3oolFd5 IjMwJSIgdmFsaWduPSJ0 b3VnDv55P07eZFguNADs CIDvITVfQKGocLarux9c zU3bPe3+PGNvbCB3 qLP4zE5dBDIoNdT3VOgh J665RfJwcJOyVazon8la h1tgqJc5UtGuAQIplvBs jPmgAWR6f9KlYl82 Z81nTOsdYBKfPFZzEMTe SVQolZfpdl1foO0eWx4+ KD2sm1xjes94aQ21vAN+ MDLrAYD3fZgyHHjf APHroN9bPOsxJaD7WPYb CoTjzZ86oRXaQXwyVc4u lUyjyDkmNR3ySPJexcht v936WxAmw4npMTHg pGJwFFseJTC3Q41un4R0 SARvCVFhOXF7tRY1nB7d bGlnbjogbGVmdDsgdmVy uMccLKzxNMcqN753 IHRvcDsnPlBhdGllbnQg TiSrANf4Q8YaZrp8HJLx tWphEI0xkXZdBWroQp2x tBeooEgvFA5qYJXv olbqf563TyFji6cqKPYb eJVxDRivRME9U73lw1A6 GWPxGOBzUJS2xJO7vX3v bGlnbjogbGVmdDsg yfMxrVfwGKgvINubE115 IHRvcDsnPkJpcnRoIERh rMV4FQ56OA40wBAef3S6 gMJ0V5AhTYTyjbcx ghvbiUZ7EIEtENVcpI50 Wo8tyQmiFt4iTMJpJHZ7 TGSguFCsB9BesI7wDbRm SUSoYDGiT6WdnZLx HAbaL226ZYaiRuU0RTRj umVhY5ZzIJDpcBpbIlN8 c3Z4Va0VX8U0CP86IG97 sCHli8R1yNM6G4Nj ELFdoplgolbaeCP6ISHm LBXvgR81Bh4pqPpiHb4p MYWoGXI0FNGvpSGvP6Jd uR2uCeLzPYGlTRYd E8OovXLiAUyzN457UAfs FdX3PQHcyyQhQ3PvYKRq oQgrDbW1q9Q4Ij7MPJx4 JP52NZ21cSDxu0V3 mPA2B7XnJBNxxbtdlzqb mOS2TQSdMIIrcA13Er5a xJegXz7fRJAfZJU8NPTk vLSdN9DmmQ9aNrTa VRUvQLMqN7KcoMEdUYxx K227VRhpChS0TQQrocOx I0FtKUZlmMgeRmH9k0G7 Sl3MSRPyZE16FCG2 hAL5HJ69WQ44C4WsIzzl dGFibGU+PHRhYmxlIHdp ZHRoPScxMDAlJyBzdHls EI8pTt8wJIYwNKWl lAgymNIyMmKtp1lqYJYb VVrxER2igMbxQ1AbtAA5 WYKmw2w1Ro25S61dI3Kq dXA+ALGnyIK5kKW6 tJ3lMdVvJdF6EToxG986 UvQbiHZhVuqnp9hco9sl yTg7BqN8MFGaevUntNmh OJV6w5DlKd75Z47a IHdpZHRoPSIxNSUiIHZh uZppov0pbW0oVe0+PGNv uSF5gGY5eQ5lRlBrPrN5 OFzuJ666WiSteYJq Ersld4crb7xtgNy3MdHr DQMyraFjsMdbGCZ4f0Yr Xs95W0BxeVjtw5AiGhf5 tb71fWJop4A5zKY2 P8UrQRUnournpMKwiYtq FZ2iPCApzqmkGPAwfE6h SLBrD8r6DvKbCmG5DLxc T9OqjmN5LIBnlINv AQrzOJB1I54gh2Q9QOUy EXGhHHO8lHV8vA1trVih bjogbGVmdDsgdmVydGlj PAgtIPziO602EKPf xKmdUDIctN9mAQXgyUMq dFqkZZ7tXQNgfbfoHiMD NezVRi5oBQNXXxVGI2Zh TDwvdGQ+PHRkIHN0 iCjwSYfnEGQojL6eZSXi S1k5NfShBrM4KHhiQ7Oa ZUWgepxgDs13qY3cAoXx PlV7BNylD4SoacG5 FXOvxXByDJlyUMX5S63n e7B5SVVwUAScXEE8rUG5 sS3xoZmeiowuwDTtdZww dmVydGljYWwtYWxp V029FWHoaRmuXbH4UaJe JjA8WIG0I0XdRfd6UCWp bRfyLB9xnKBbBEnbFv8v xIxztRjvLQ4rKWVg ujmoUHBpjX0uFWUuyVOm wXxiIT1eWXJbwkunl953 QbHkCFW8DUDywVIgD1Sr jQ2uLvZnESOqLLAk W1RlzXUsHWviP924GUkv MgU1SRFhpvQcM9JbURIw rFtuHeV2b1N1Bk3aVJBE ZWFyczwvdGQ+PHRk OIB4jOpjDAopZESzoY9g YTKmJ7r2LtPlIvG9PIqv E1RoIEAnxxbtSt90zN9r XaHfFwA9QXahX4Bt dsF6TYHckRMcWZcyXFL1 P47pl7L9SZAtIVSeLFO3 eNB5pN6saGsmehftfJQx dDsgdmVydGljYWwt QZbdY165JZVaaTojXoKt bWFsZTwvdGQ+PHRkIHN0 oXjzVXwdYLStsU8pUQCk P8b4YxNvMyF2HEag P2UlTBTrwzayLg85iR5x GeUmByQ9JHssJ5GlxaS3 HJXmnDMbVGaeHWW7P61w m8V0VEAqFZDhUWA9 xXL8eF1zqBspztqlbAVy dDsgdmVydGljYWwtYWxp S568QPTqwRwkNt33yNGp uIrkzpY4H3FnTwdx dHI+VG66NJQmHA29bGGy zGNiv3bluRu1ErBuKPRw SNE6qRieJAsqj3MqKLZf L99rxMAxq0K4UAIp lJzniBLgKfPrjMF7jR3u PHfkmfrbl7szbvbuQvnz a2eybc47yF36Q74wGCun ZHRoPSIzMCUiIHZh wGbyql1utF7fCl5+PGNv qLT1cEB6xG6xYwViJvU1 VKrkC794MqPpiGDgHwbf n7ytw6feiTc8YcOl HZOmygDwuTdlIND8c0Dj Yz28I38gGFqwUXLpOHCp GAXnIRDipJrgbo3tpJ8p Ii8+YL1va0wynh80 uI27bQO+QGOyJWH7aIgy JFifBYKcjQ8kVLrzFoN8 PEJeTiIvlK77fQRkJMlh Pa4qwOtmzRjnIX1d FCHbocder166MlPrm5io CLCaeJWoPLpmWLP6W62w v7M9OLVrKXGpAVX9vRA2 xT6miFhhvvbljAQl dDsgdmVydGljYWwtYWxp V465EGOioJemToXrkEVu Z0vjgqKFUG3jBhghxDU+ HHZnDNA0bNzmIBfb WKMamS0vOEEwV7h8PlQr SpS8AIvjE6TsadN1XYNd jVBbINCudZBApT3mqjqj a2uvbyecVoNsVRMf LDr3HCf0VWQzuOmyQkVa SFV6WcD9HWD7wURboH8j hPqcmcvgeB3xUkj+RklO OjwvdGQ+PHRkIHN0 zNzvYPxwPLEnaO0oRBPw U3x4JgQcDaY9JIjoE6Dw xgB7KQJpeFCnJIIfqGDF pB7acfgli2jvxtyr YlAyYNAcFXc0WGb6KEBt oXliOfEbLQJ1VzL0QFT6 pLWydQ2caLtmwjgyvI0f Oyc+TVJOOjwvdGQ+ MQYrKHW4zHrvCUufXCEt wW8bFRWvT5y0IoRjOnM5 CJwyF9SogyR2JSCbfVZo SEYipNMTeS0ptxyi m7vjzolkOsLgSHSzRBy2 WOn9EIBdnTtlKhTcYRU9 JoL7LTM4nOKpqM6fbRcf uzakdW1qTrh+UGF5 JJN1EZ67VR32C8EmQypb dGFibGU+PHRhYmxlIHdp ZHRoPScxMDAlJyBzdHls JQ9gEi3bTJAxPWAa bGxh (more content not included)... Normal [facility] Coding Summary.on 06-09-2020 Coding Summary. CD:[id number]:[id number] Gh0bWw+PGhlYWQ+PE1FV COxZ87htLNjhZ9AV5gKX H7BGJAMJJZEJB7ICB5za RT8CYceJ4JvarPu RfrdkCQbOG41AGl8EVM0 zGpaPKmsyC5pgHBeN7f5 KnKyGH22kK20HBbyMMTo ZtO2WxOjcdfflAEl Q8urZjCyrZHjCrz+PHRh YmxlIHdpZHRoPScxMDAl ZyEwkMwtPV5mKg5uQHWx LWNvbGxhcHNlOiBj b8bfQWLoYOjtRP6mgRih F4JamFP9LHYcu9o9Td36 dHI+UHHnIYU0lXzlGWjs w949JpNdt6nwOXQ1 cMTsCWmhFUR3D48jh3L4 IKXrGDTyLQB9pZK8hN5v dXlijkucA9ByeKJfKtS3 ZIL3pHQubP2gaUwh eklflM2cPrc+K77QJF6H INBCJR4IPhj2H5ZoWsae dHI+YZ40JJNrHV99cBEr aALvk0hxoZd4ZbQd UTLqMIN8rQppRGjrm8Fk EBReL02slMBsv1O1AKFc aIufhKQjBlIaxMF8uG4v MRavlfckd3lffudx Vmhqs4isue28bL36W44g IXawEMLgSMY1MCKuWMAs bWvreu3ueK9lHp7+IDxj d0fjf7vtlUi9JuJw OCKtcyXowDsyTDL6g8Zu Cb71B8SzgVfhb5LiCsa4 bh06bIQkw1A1aCY6ICmw COGkgK4pWSivNmK8 JGKeWmXyjZ52eXSbMQnd Mw8auCehkPolTL0vARWd xgioDAMosT7rCSMgfKIl vOaqLD4oDIPmlhvt s922EsJgNYE8LOBptNAj D7IntA0xRhLeWNMpLRWq F0KneXOdCTrlE246WDuq PqV9KDJgpxTeP3Sv VLLshUgwZeQ4d9Y0Lg6B k8OxgkcrNNJ6KYsmENN8 IlDmIuAuCkR1Y5ZmRkz7 XINqwWyqLG9iC7Ei JROundkwjyoqbBT2UVSw BGRelO10uZAmSSmgYm6h y6E6k407SMAaHGAqrE25 Bm1ekBgkSBNrbDDT jT4hvxkgw2azenbnBvOm GNPmJTa2DHq9PKCjvEos IaNpVTO0SkL8GUN3nBSd kJ6njCdkfcetzY4v Oyc+L54eaC4mDAO4DBY5 wrhlSDJyiiCqRC11OD19 E2RoYbfvnSRfgQB+PGRp qnUqjUbyWT3xOhSs w8uzw1HlBYsuY7NjABGk KSkuErz2PKGpDLX8zEU9 oJ5dMSPiPObqa3Q3iYM8 T7DgwvAwsr1sr2aj XBIlNOyqF63afFRgw5L3 BVAatZU6GKLjlRxxClJm pI68Vhu+DMIctPqmm4By Vzhwz8fmd1qdzBn7 IjMwJSIgdmFsaWduPSJ0 j7BjNh16F83lOKnzCWVh CGOeUKOiAHCnbLlmaf1h yS3bYr1+PGNvbCB3 vHJ4xY2hCAVvQcT1XSqf X841AyFpyQDvQuzpj2ir w2esgBf9QdErCNPvzbZr vAgiEEJ7v2MyKd35 M15nTMnaDIZcHYVdLKKw UBTutItotd8dfA1tZw8+ XZ5zp4eday43eZ56gZP+ RSEcNXL8tWyqDLtf BLWqiC9qLMwiVsZ2PAZv BvWzjX07vFQpHQgiMq2b wPxleXxgEW7tXPPoewik r467GjLic1nzGTJo rAYuGPyfKKU3G37pp0Y0 FPPcJDHiJCE8nHQ2bB2d bGlnbjogbGVmdDsgdmVy lMscGWjcUFquV410 IHRvcDsnPlBhdGllbnQg TcOoSWk8K9CeHtw5ZWMi tYeoSK9geYAqEStfNr4b vCpmlItvYY3fHXYq myfdb899UoLso0ndDGOd wKSvVTiiLKL1W86np0Q0 NMZwIIPnFLV0mPX5iU0e bGlnbjogbGVmdDsg vlUjhAkvBRwgMOuxR689 IHRvcDsnPkJpcnRoIERh yRR9EI03BH53kJJgc2B4 hLZ8F6SvYDYhsyoy rvlqiAL3TDNgDFEraK32 Kc6nkZtgVo5iNEVnIVB5 SIUbgFYbQ5OvxJ3kQvKd TKBoFWWdS2JfyWLy JNpcP014PVerNaN0NROu vuPpE7XfJSLgjWxrUfY7 b4Q1Ds9VF4N5GE93HO68 yBSil5T6rXA2U4Dw CXCzpihztiaewEI0GRYi OWNbkN73Fz0juVioBu3s FYMxWUJ4VMPsdOXoS8Bv pT1aNjBpGZBiDSZx L3NxyNDmQTdlT762FDum FoA5LBVmuhUgJ3QkHFIw nLqlTuH7c1R6Mj5FJRf0 NS52KB00jXPtv4J0 eQY5H9EmLARmmovixavw yGL7JNUnDKYxlF84Bt4t iWvaTv1dFEAhAGA3FKIb xRFcT9YcdF0vEgMz NDIaPLPgB2ZuuACoBOgz O119NHfjXrI8UCKbdqCl O0AzKNZsyJmoAwF5c6P2 Gh0KUPWgPV06BYX4 lFD0RP74IC01K6HxRuom dGFibGU+PHRhYmxlIHdp ZHRoPScxMDAlJyBzdHls ZV8oJp4jJGGtVJIr vNxrcXRhOcAac0cnFIEt AChlMR6ueDhhF8EjuHK9 JDPge5i7Gp82L19oG0Vi dXA+GZTiwXF9rCA8 dT2dBuQaYlQ4FWicQ031 MxUesWPbDpvnr9vbi2zh aRx2KnC0NJOgewXokWup YHW1g1VoOo84V76d IHdpZHRoPSIxNSUiIHZh eQoqkd4wjI9bRj2+PGNv cLO6wOG2xD9xDpLwDqU0 CHegH140IhHoyWZc Yvvut8ivw7teoBe3MdGb YQOincLpoKedMPF5z3Xq Ab50Y2BimIlqz4LmWcy8 br14iTQrj2X5wEB4 V8ZxNDCjxztcgWCjtJil VF5nSGUudbazAUHktB3g NAKgJ9h4YgNiGrV5JLzw R5StwhZ0NEBulEQe LMcaIQI9U70cj2X7QXEw IOWdITW3vBQ1bR9alHsi bjogbGVmdDsgdmVydGlj DNlyYTwwD439ROTo jCjdHDImrF2lDOGnbNNj bTajVU5lWCGovmznHkTW TtzYAi5oKTKRQvNBL1Qe TDwvdGQ+PHRkIHN0 sTwjISowABLgqU6kHZTx X2m7WnGtOnE4CSdiS8Db RABpowcoUj35bZ9aNtUc XvH1LDdxN9SpidX9 CCNsnZNoKUwpHFX9V77m f4K9DBJpFHTjQSA4dYV5 kS1vxMfxvdcykWNldLcc dmVydGljYWwtYWxp W835EZGixAayJkB9ZmQx IcU0NPY8D4QsIgy5IBWv bFzlMD3ttDGbTSvdRc1w bEjolTikXV9aSRGq wavuWXZpxY6mHJZmjMMo xHmlOT1vRRYmnppvo796 IpNhSLN0UBRgfLHiU0Bs hM4hUtRmXAGqNGDk J5UggNDuHLgvV424YYfs PoZ2NZCqhlRpN4FoIUMx oTjzYhC0t7K7Nl8aQRBE ZWFyczwvdGQ+PHRk SGA2lMfuAQxkDKTjhY9x NTUgJ8f5EmOhZoW5VEsi Z1RzGXYkutueEq71oD0e JvIkIuX9FYqjS9Gh mgL4AOBtkVOrDMlgGHE3 M75jq9J9WYKmSXDaEWA8 hAK3iN3kaRpeyulkgVFn dDsgdmVydGljYWwt WMoxM596GFRcbHxfCgVo bWFsZTwvdGQ+PHRkIHN0 yQkdZIjeWABvrQ6cDONk M7o6NjJmXwP0RWrn O5LiWBPajjmwJh44nS8j ImCdNbQ0VTsqQ1XryxK0 FAZcaJUjZWwqZGW8Y83r v1L7JAZrHVXyMJT0 hJI6dF5skJyenzufcMKp dDsgdmVydGljYWwtYWxp K366RKXfzDvkYe38rSZh aQlrulD6I2NmRmrk dHI+ER74YZMpAX33zXMn nYFuj3ccjSi4ImHdHPAp WBJ6rYyqYRumj6XhHECl E22jqMEfg1J6GMTp pPcupEEbZgRdgCS7dP5i TRwjbjwyw6hoxzybJoie h7vlju65kP39B67iWVtg ZHRoPSIzMCUiIHZh bKtsvq4sjO9sJa3+PGNv aYI6yVS5dP3vHsLbBrJ1 CMvvY525QbQmeNEyLebb u1kau0yddQe8AtGe MSJgtxQcfXavVQP5z2Rd Mm99C59gRIwqJQPjIZYi HTUlOPUaxQutse2tlG6z Ii8+PA9gd7sgws17 uZ48uOH+CVTqTDE9aAvs REknANGgnL9xKEbiMaG5 PIZqXnGdlB82aALkJEdr Fk6tgCjzxZmgUO9e CCHnovltx119HlIep9cq SFBadCEbISoaNVV2E67m k6X0UNSuHNOpFHF4pBC5 xN9wdEhkhitszFCz dDsgdmVydGljYWwtYWxp I178BNQitZgsYnOnhNYs S2regzKGDX3vXrubzKZ+ XPPuWFD9iDzrXWxm OPZgwU2jOAVpI6s4YfSl XaJ4EWuiZ2YpndS4PPUs wLGkDSBflHEUhL4vzjuw s6rgchlbZnTsTEWh GRb2JHo0HOTnrObgRtLq ILH8PyX1GOG4mNIpzQ6d mNsfsgsauS6sJlo+RklO OjwvdGQ+PHRkIHN0 rZbtYYmyDEWunR8yULDr G7i8KbMgIdR3DLobO9La cnD8UUHbiYOzVBAzwCRB jR8svhrgf3qjmuxa EjQdLOFsVIy3HFo6ZDCd eVekRzKiKRX6UmM1CSC5 xYWwdJ4fjVifyufwpT2a Oyc+TVJOOjwvdGQ+ YYJlXUN4zBqdBBpjGBQz uE1vWRWmM2d8KgLfPkB1 WSnaN1ZbbmL2TIIcvMMc PKWmjCIOvY9qjnjj c3argqqwBcGwNJGoPOu6 HJg6JJTtjTqqWrEhZFK9 ZkF4YYK3cZBjyO5piOoc cqwamF5hTej+UGF5 PHW7TH66TS04A8VnSpdz dGFibGU+PHRhYmxlIHdp ZHRoPScxMDAlJyBzdHls UW9zGq7wVIOiXZDe bGxh (more content not included)... Normal [facility] Capillary Glucose POCon 05-19 Glucose [Mass/Vol] 82 mg/dL Normal 55-99 [facility] Comment on above: Performed By: #### 2 [id number] #### [facility] [address] [place] [address] Consent for Treatmenton 05-19 Consent for Treatment [id number] #1.00CD:127 Normal [facility] Glu 1 Hron 06-03-2020 Glucose [Mass/Vol] 139 mg/dL Normal 55-180 [facility] Comment on above: Result Comment: POSI TIVE SCREEN = 1 HR > 140 mg/dL Performed By: #### 2 [id number] #### [facility] [address] [place] [address] Glu 2 Hron 06-03-2020 Glucose [Mass/Vol] 123 mg/dL Normal 55-155 [facility] Comment on above: Result Comment: DIAB ETES FASTING >126 mg/dL or 2 HOUR >200 mg/dL Performed By: #### 2 767834, 7790470, [id number] #### [facility] [address] [place] [address] Glu 3 Hron 06-03-2020 Glucose [Mass/Vol] 101 mg/dL Normal 55-140 [facility] Comment on above: Result Comment: GEST ATIONAL DIABETES 2 of the following: FASTING >95 mg/dL 1 HOUR >180 mg/dL 2 HOUR >155 mg/dL 3 HOUR >140 mg/dL Performed By: #### 2 [id number] ####[facility] [address] [place] [address] Glu Fastingon 06-03-2020 Glucose [Mass/Vol] 83 mg/dL Normal 55-99 [facility] Comment on above: Performed By: #### 2 470127, 7018416, [id number] #### [facility] [address] [place] [address] Rubella Abon 06-03-2020 Rubella Ab Positive Normal Positive [facility] Comment on above: Performed By: #### 2 579248, 3726665, [id number] #### [facility] [address] [place] [address] ABO/Rhon 06-02-2020 ABO/Rh Positive Invalid Interpretation Code [facility] Comment on above: Performed By: #### 1 [id number], [id number] ####[facility] [address] [place] [address] ABSCon 06-02-2020 ABSC Gel Interp Negative Normal [facility] Comment on above: Performed By: #### 1 [id number], [id number] ####[facility] [address] [place] [address] CBC w/Indiceson 06-02-2020 Erythrocyte distribution width (RBC) [Ratio] 12.9 % Normal 10.9-14.2 [facility] Comment on above: Performed By: #### 2 648871, 8513277, [id number] #### [facility] [address] [place] [address] Hematocrit (Bld) [Volume fraction] 33.5 % Low 34.0-46.0 [facility] Comment on above: Performed By: #### 2 683554, 1188510, [id number] #### [facility] [address] [place] [address] Hemoglobin (Bld) [Mass/Vol] 11.2 g/dL Low 12.0-16.0 [facility] Comment on above: Performed By: #### 2 364804, 6594048, [id number] #### [facility] [address] [place] [address] MCH (RBC) [Entitic mass] 29.0 pg Normal 27.0-34.0 [facility] Comment on above: Performed By: #### 2 946163, 8146856, [id number] #### [facility] [address] [place] [address] MCHC (RBC) [Mass/Vol] 33.5 g/dL Normal 31.4-36.0 [facility] Comment on above: Performed By: #### 2 912462, 6771569, [id number] #### [facility] [address] [place] [address] MCV (RBC) [Entitic vol] 86.6 fL Normal 80.0-100.0 F [facility] Comment on above: Performed By: #### 2 532250, 5932464, [id number] #### [facility] [address] [place] [address] Platelet mean volume (Bld) [Entitic vol] 7.6 fL Normal 6.4-10.8 [facility] Comment on above: Performed By: #### 2 199605, 1274081, [id number] #### [facility] [address] [place] [address] Platelets (Bld) [#/Vol] 284.0 E9/L Normal 150.0-500.0 [facility] Comment on above: Performed By: #### 2 872126, 8540451, [id number] #### [facility] [address] [place] [address] RBC (Bld) [#/Vol] 3.9 E12/L Low 4.3-5.9 [facility] Comment on above: Performed By: #### 2 596684, 6680521, [id number] #### [facility] [address] [place] [address] WBC corrected for nucl RBC Auto (Bld) [#/Vol] 9.4 E9/L Normal 4.0-11.0 [facility] Comment on above: Performed By: #### 2 216505, 3563085, [id number] #### [facility] [address] [place] [address] Consent for Treatmenton 05-19 Consent for Treatment [id number] #1.00CD:127 Normal [facility] Gest Scr Glu 1 Hron 06-03-19 21 Glucose [Mass/Vol] 150 mg/dL High 55-140 [facility] Comment on above: Result Comment: Posi tive Screen =1 HR > 140mg/dL Performed By: #### 2 282036, 6034032, [id number] #### [facility] [address] [place] [address] Ambulatory Clinical Summaryo n 2020 Ambulatory Clinical Summary {[id number]}CD:142450 Normal [facility] Obstetrics Office/Clinic Not jasmine 2020 Obstetrics Office/Clinic Note Chief Complaint OB 29w 5d, baby moving, patient doing 28 week labs done this Obstetric History History (1,0,0,2) # 1 Baby 1 Outcome Date: 2008 Outcome: Live Outcome or Result: Vaginal Gender: Female Gest Age: 41 weeks Wt: 3232 g Hospital: [facility] Labor: -- Child's Name: -- Baby's [...] trimester) Ordered: Office Visit Level 4 Est 02289 [facility] Follow Up US Follow Up 2. Obesity complicating , third trimester (O99.213: Obesity complicating , third trimester) Ordered: Office Visit Level 4 Est 07207 [facility] Follow Up Follow Up 3. Depression during (O99.340: Other mental disorders complicating , unspecified trimester) Ordered: Office Visit Level 4 Est 13703 [facility] Follow Up US Follow Up 4. 29 weeks gestation of (Z3A.29: 29 weeks gestation of ) Ordered: Office Visit Level 4 Est 36862 [facility] Follow Up Follow Up Follow-up With When Contact Information Funmilayo ESCOBEDO MD In [address] [place] [address]- Additional Instructions: Problem List/Past Medical History Ongoing [...] Protein Urine Dipstick: Negative (05/31/20 14:25:00) Normal [facility] Comment on above: Result Comment: Elec [...] including vitamins, herbs, eye drops, creams, and waip-uxm-pmxnzhi medicines. ? Any blood disorders you have. [...] This inform (more content not included)... Normal [facility] RAD - Ultrasound Reporton RAD - Ultrasound Report [id number] [id number]# 1.00CD:127 [facility] Coding Summary.on 05-17-2020 Coding Summary. CODING DATE: 05/16/2020 FINAL [facility] STATUS: Home (Routine DC) PAYOR: [place] ADMIT DX: REASON FOR VISIT DX: O09.92 [...] [facility]T Date Saved: 05/16/2020 11:17 pm [facility] C Urineon 05-13-2020 Bacteria identified Cx Nom [...] This test was performed at: [facility], [address] [place] [address], [address] , [place], Normal [facility] Comment on above: Performed By: #### 2 [id number] ####[facility] [address] [place] [address] Ambulatory Clinical Summaryo n 05-11-2020 Ambulatory Clinical Summary {[id number]}CD:534810 Normal [facility] Obstetrics Office/Clinic Not jasmine 05-11-2020 Obstetrics Office/Clinic Note Chief Complaint OB visit 26 weeks 6 days. Leg Pain, Has alot of anxiety. Tired all the time. 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 Obstetric History History (1,0,0,2) # 1 Baby 1 Outcome Date: 2008 Outcome: Live Outcome or Result: Vaginal Gender: Female Gest Age: 41 weeks Wt: 3232 g Hospital: [facility] Labor: -- Child's Name: -- Baby's [...] far. Ordered: Office Visit Level 3 Est 40281 [place] 2. Depression during (O99.340: Other mental disorders complicating , unspecified trimester) Doing meditation. Ordered: Office Visit Level 3 Est 46961 [place] 3. Supervision of high risk in [...] 1 Hour Office Visit Level 3 Est 34346 [place] Urine Culture 4. 26 weeks gestation of (Z3A.26: 26 weeks gestation of ) Ordered: Office Visit Level 3 Est 23193 [place] Follow-up With When Contact Information [facility] In [address] [place] [address]- Additional Instructions: Problem List/Past Medical History Ongoing [...] Smokeless Toba (more content not included)... Normal [facility] Comment on above: Result Comment: Elec [...] risk of sudden infant syndrome. ? Rear-facing car seat. Have a [...] Petroleum jelly. ? 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 ? 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 Health and safety ? Rectal thermometer. ? [...] ? Consumer Product Safety Commission: www.cpsc.gov ? [place] [employer]: www.healthychildren. org ? Safe [...] 01/17/2009 Document Revised: 01/17/2018 Document Reviewed: 12/25/2017 [employer] Patient Education ? 2019 [employer] Normal [facility] Coding Summary.on 04-29-2020 Coding Summary. CODING DATE: 04/28/2020 [facility] STATUS: Home (Routine DC) PAYOR: Diamond [...] [facility] CphT Date Saved: 04/28/2020 10:33 pm [facility] Coding Summary.on 04-27-2020 Coding Summary. CODING DATE: 04/27/2020 FINAL [facility] STATUS: Home (Routine DC) PAYOR: [place] ADMIT DX: REASON FOR VISIT DX: Z34.82 [...] [facility] Date Saved: 04/27/2020 10:53 am [facility] Nursing Assessmenton 021 Nursing Assessment [id number] #1.00CD:127 [facility] C Urineon 04-23-2020 Bacteria identified Cx Nom [...] This test was performed at: [facility], [address] [place] [address], [id number] [place] [address], [facility] Comment on above: Performed By: #### 2 119006, 8648635, [id number] #### [facility] [address] [place] [address] Consent for Treatmenton Consent for Treatment [id number] #1.00CD:127 [facility] Consent for Treatment [id number] #1.00CD:127 [facility] Discharge Instructionson Discharge Instructions [id number] [id number] #1.00CD:127 [facility] Inpatient Clinical Summaryon 04-21-2020 Inpatient Clinical Summary [address] [address] Clinical Summary Person Information Name: MYA MYLES [facility] Age: 29 Years : 1990 Sex: Female PCP: Chao Blackwell III, DO Marital Status: Single Race: White Ethnicity: Non- or Language: Dominican Visit Id: Visit Reason: Speciality: Acuity: Enc Type: OB Triage Med Service: Obstetrics Arrival: 04/21/2020 15:56:05 Discharge: 04/21/2020 17:47:48 Dispo Type: Home (Routine DC) Address: [address] [place] [address] [address] [place] [id number] Provider Notes: Diagnosis: Problems Active Depression during [...] Follow up: With: Address: When: Funmilayo ESCOBEDO [employer] [place] [id number] Business (1) 05/12/2020 9:00 AM Comments: Call for any problems. Type Location [facility] 05/12/2020 9:00 AM 05/12/2020 9:15 AM Confirmed Patient Education Information: Normal [facility] Inpatient Patient Summaryon 04-21-2020 Inpatient Patient Summary [place] [id number] Patient Discharge Instructions PERSON INFORMATION Name: MYA [...] test results: Follow up: With: Address: When: Fumnilayo ESCOBEDO [employer] [address] [facility] Business (1) 05/12/2020 9:00 AM Comments: Call [...] Leaflets: You may receive a survey from [employer] asking you to rate your care experience. Your feedback is important and will help us understand what we do well and how we can improve the quality of care we provide to you, your loved ones and our community. It?s an honor to serve you. Thank you for choosing [facility] Normal [facility] Insurance Correspondence Off iceon 04-21-2020 Insurance Correspondence Office [id number] #1.00CD:127 Normal [facility] RAD - Ultrasound Reporton RAD - Ultrasound Report [id number] #1.00CD:127 Normal [facility] UA With Cult Reflexon 2020 Bacteria LM Ql (Urine sed) 1+ /HPF Abnormal Trace [facility] Comment on above: Performed By: #### 2 [id number], [id number], [id number] #### [facility] [address] [place] [address] Bilirubin Ql (U) Negative Normal Negative [facility] Comment on above: Performed By: #### 2 780872, [id number], [id number] #### [facility] [address] [place] [address] Clarity (U) CLEAR Normal Clear [facility] Comment on above: Performed By: #### 2 733164, [id number], [id number] #### [facility] [address] [place] [address] Color (U) YELLOW Normal Yellow [facility] Comment on above: Performed By: #### 2 913617, 5962184, [id number] #### [facility] [address] [place] [address] Epithelial cells.squamous LM.HPF (Urine sed) [#/Area] 3-4 Normal 0-2 [facility] Comment on above: Performed By: #### 2 727377, [id number], [id number] #### [facility] [address] [place] [address] Glucose Test strip (U) [Mass/Vol] Negative Normal Negative [facility] Comment on above: Performed By: #### 2 618668, 9894460, [id number] #### [facility] [address] [place] [address] Hemoglobin Ql (U) Negative Normal Negative [facility] Comment on above: Performed By: #### 2 034695, 7671810, [id number] #### [facility] [address] [place] [address] Ketones (U) [Mass/Vol] 1+ Abnormal Negative [facility] Comment on above: Performed By: #### 2 428407, 5853311, [id number] #### [facility] [address] [place] [address] [place].plasma/[place]. RBC (Bld) [Mass ratio] 0-3 Normal 0-3 [facility] Comment on above: Performed By: #### 2 262805, 6099256, [id number] #### [facility] [address] [place] [address] Nitrite Ql (U) Negative Normal Negative [facility] Comment on above: Performed By: #### 2 487153, 5997289, [id number] #### [facility] [address] [place] [address] pH (U) 7.0 [pH] Invalid Interpretation Code 5.0-9.0 [facility] Comment on above: Performed By: #### 2 312218, 1171229, [id number] #### [facility] [address] [place] [address] Protein (U) [Mass/Vol] Negative Normal Negative [facility] Comment on above: Performed By: #### 2 797087, 6215505, [id number] #### [facility] [address] [place] [address] Specific gravity (U) [Rel density] 1.010 Invalid Interpretation Code 1.005-1.030 [facility] Comment on above: Performed By: #### 2 156524, 1682084, [id number] #### [facility] [address] [place] [address] UA Spec Desc Clean Catch Normal [facility] Comment on above: Performed By: #### 2 427788, 1938989, [id number] #### [facility] [address] [place] [address] Urobilinogen Qn (U) 0.2 {Henny'U}/dL Normal 0.0-1.0 [facility] Comment on above: Performed By: #### 2 286811, 4617457, [id number] #### [facility] [address] [place] [address] WBC Auto Ql (U) 1+ Abnormal Negative [facility] Comment on above: Performed By: #### 2 342577, 2382515, [id number] #### [facility] [address] [place] [address] WBC LM.HPF (Urine sed) [#/Area] 0-5 Normal 0-5 [facility] Comment on above: Performed By: #### 2 871876, 6495276, [id number] #### [facility] [address] [place] [address] C Urineon 04-18-2020 Bacteria identified Cx Nom [...] Locations R1: This test was performed at: [facility], [address] [place] [address], [address]- , [place], Normal [facility] Comment on above: Performed By: #### 2 [id number] ####[facility] [id number] [place] [address] Obstetrics Office/Clinic Not jasmine 04-18-2020 Obstetrics Office/Clinic Note Chief Complaint OB 21w 5d, baby moving Obstetric History History (1,0,0,2) # 1 Baby 1 Outcome Date: 2008 Outcome: Live Outcome or Result: Vaginal Gender: Female Gest Age: 41 weeks Wt: 3232 g Hospital: [facility] [place]enny Labor: -- Child's Name: -- Baby's [...] trimester) Ordered: Office Visit Level 4 Est 38089 NC 2. Obesity complicating , second trimester (O99.212: Obesity complicating , second trimester) Ordered: Office Visit Level 4 Est 39069 NC 3. 21 weeks gestation of (Z3A.21: 21 weeks gestation of ) Ordered: Office Visit Level 4 Est 07627 NC 4. Depression during (O99.340: Other mental disorders complicating , unspecified trimester) Ordered: Office Visit Level 4 Est [address] [place] Follow-up With When Contact Information Funmilayo ESCOBEDO MD In [address] [place] [address]- Additional Instructions: Problem List/Past Medical [...] pts pharmacy. Spoke with pt. 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 Will repeat urine cx at next visit. Kendal Escobedo MD [facility] Comment on above: Result Comment: Elec tronically [...] Locations R1: This test was performed at: [facility], [address] [place] [address], [id number]- , , [facility] Comment on above: Performed By: #### 2 [id number] ####[facility] [address] [place] [address] HIV Screen 4th Generation wR fxon 04-16-2020 HIV 1+2 Ab+HIV1 p24 Ag IA Ql Non-Reactive Invalid Interpretation Code Non Reactive [facility] Comment on above: Result Comment: Perf ormed at: [facility] [address] [place], [place] [id number] PhD Lanette Dunn Performed By: #### 2 184146, [id number], [id number] #### [facility] [address] [place] [address] Hep Bs Agon 04-16-2020 HBV surface Ag IA Ql Negative Invalid Interpretation Code Negative [facility] Comment on above: Result Comment: Perf ormed at: [facility] [address] [place], [place] [id number] PhD Lanette Dunn Performed By: #### 2 200528, [id number], [id number] #### [facility] [address] [place] [address] Coding Summary.on 04-15-2020 Coding Summary. CODING DATE: 04/15/2020 FINAL [facility] STATUS: Home (Routine DC) PAYOR: Diamond [...] CphT Date Saved: 04/15/2020 09:18 am Normal [facility] RPRon 04-15-2020 Reagin Ab RPR Ql (S) Non-Reactive Normal Non-Reactive [facility] Comment on above: Performed By: #### 9 [id number], [id number], [id number] ####[facility] [address] [place] [address] ABO/Rhon 04-14-2020 ABO/Rh Positive Invalid Interpretation Code [facility] Comment on above: Performed By: #### 2 362563, [id number] #### [facility] [address] [place] [address] ABSCon 04-14-2020 ABSC Gel Interp Negative Normal [facility] Comment on above: Performed By: #### 2 051229, [id number] #### [facility] [address] [place] [address] Ambulatory Clinical Summaryo n 04-14-2020 Ambulatory Clinical Summary {[id number]- 89-03-14}CD:[id number] Normal [facility] Auto Diffon 04-14-2020 Basophils/100 WBC (Bld) 0.3 % Normal 0.0-2.0 F [facility] Comment on above: Order Comment: Order Added by Discern Expert. Performed By: #### 2 790517, [id number], [id number] #### [facility] [address] [place] [address] Basophils/Leukocytes Auto (Bld) [Pure # fraction] 0.0 E9/L Normal 0.0-0.2 [facility] Comment on above: Order Comment: Order Added by Discern Expert. Performed By: #### 2 153306, 1450032, [id number] #### [facility] [address] [place] [address] Eosinophils/100 WBC (Bld) 0.3 % Normal 0.0-8.0 [facility] Comment on above: Order Comment: Order Added by Discern Expert. Performed By: #### 2 601628, 7247054, [id number] #### [facility] [address] [place] [address] Eosinophils/Leukocytes Auto (Bld) [Pure # fraction] 0.0 E9/L Normal 0.0-0.5 [facility] Comment on above: Order Comment: Order Added by Discern Expert. Performed By: #### 2 416851, 8252508, [id number] #### [facility] [address] [place] [address] Lymphocytes/100 WBC (Bld) 19.1 % Normal 14.0-50.0 [facility] Comment on above: Order Comment: Order Added by Discern Expert. Performed By: #### 2 520706, 5726977, [id number] #### [facility] [address] [place] [address] Lymphocytes/Leukocytes Auto (Bld) [Pure # fraction] 1.4 E9/L Normal 1.0-4.0 [facility] Comment on above: Order Comment: Order Added by Discern Expert. Performed By: #### 2 841863, 2393799, [id number] #### [facility] [address] [place] [address] Monocytes/100 WBC (Bld) 6.4 % Normal 4.0-14.0 F [facility] Comment on above: Order Comment: Order Added by Discern Expert. Performed By: #### 2 485416, 9738099, [id number] #### [facility] [address] [place] [address] Monocytes/Leukocytes Auto (Bld) [Pure # fraction] 0.5 E9/L Normal 0.2-1.0 [facility] Comment on above: Order Comment: Order Added by Discern Expert. Performed By: #### 2 049184, 6273492, [id number] #### [facility] [address] [place] [address] Neutrophils/100 WBC (Bld) 73.9 % Normal 36.0-75.0 [facility] Comment on above: Order Comment: Order Added by Discern Expert. Performed By: #### 2 636949, 6935568, [id number] #### [facility] [address] [place] [address] Neutrophils/Leukocytes Auto (Bld) [Pure # fraction] 5.3 E9/L Normal 2.0-7.5 [facility] Comment on above: Order Comment: Order Added by Discern Expert. Performed By: #### 2 618227, 0200056, [id number] #### [facility] [address] [place] [address] BhCG Quanton 04-14-2020 [place] [address] m[IU]/mL High 1-3 F [facility] Comment on above: Result Comment: GEST ATIONAL AGE HCG RANGE (mIU/mL) NON- <1-3 0.2-1 WEEKS 5-50 1-2 WEEKS 50-500 2-3 WEEKS 100-5,000 3-4 WEEKS 500-10,000 4-5 WEEKS 1,000-50,000 5-6 WEEKS 10,000-100,000 6-8 WEEKS 15,000-200,000 8-12 WEEKS 10,000-100,000 Performed By: #### 2 687663 #### [facility] [address] [place] [address] CBC w/ Auto Diffon Erythrocyte distribution width (RBC) [Ratio] 13.0 % Normal 10.9-14.2 [facility] Comment on above: Performed By: #### 2 083387, 0425759, [id number] #### [facility] [address] [place] [address] Hematocrit (Bld) [Volume fraction] 34.6 % Normal 34.0-46.0 [facility] Comment on above: Performed By: #### 2 764888, 1711644, [id number] #### [facility] [address] [place] [address] Hemoglobin (Bld) [Mass/Vol] 11.6 g/dL Low 12.0-16.0 [facility] Comment on above: Performed By: #### 2 801328, 5658967, [id number] #### [facility] [address] [place] [address] MCH (RBC) [Entitic mass] 29.8 pg Normal 27.0-34.0 [facility] Comment on above: Performed By: #### 2 129399, 6550085, [id number] #### [facility] [address] [place] [address] MCHC (RBC) [Mass/Vol] 33.4 g/dL Normal 31.4-36.0 [facility] Comment on above: Performed By: #### 2 928305, 9633168, [id number] #### [facility] [address] [place] [address] MCV (RBC) [Entitic vol] 89.2 fL Normal 80.0-100.0 F [facility] Comment on above: Performed By: #### 2 841704, 6447532, [id number] #### [facility] [address] [place] [address] Platelet mean volume (Bld) [Entitic vol] 7.8 fL Normal 6.4-10.8 [facility] Comment on above: Performed By: #### 2 614171, 0492974, [id number] #### [facility] [address] [place] [address] Platelets (Bld) [#/Vol] 326.0 E9/L Normal 150.0-500.0 [facility] Comment on above: Performed By: #### 2 594730, 9862125, [id number] #### [facility] [address] [place] [address] RBC (Bld) [#/Vol] 3.9 E12/L Low 4.3-5.9 [facility] Comment on above: Performed By: #### 2 177626, 9514620, [id number] #### [facility] [address] [place] [address] WBC corrected for nucl RBC Auto (Bld) [#/Vol] 7.2 E9/L Normal 4.0-11.0 [facility] Comment on above: Performed By: #### 2 908514, 3281144, [id number] #### [facility] [address] [place] [address] Consent for Treatmenton 03-22 Consent for Treatment [id number] 10 [id number] #1.00CD:127 Normal [facility] WqaG7biv 04-14-2020 HbA1c (Bld) [Mass fraction] 4.8 % Normal <=5.9 [facility] Comment on above: Performed By: #### 2 855790, 9864080, [id number] #### [facility] [address] [place] [address] Patient Educationon 04-14-19 21 Patient Education How [...] Document Reviewed: 07/23/2008 ExitCare? Patient Information ?2013 DZZOM. Obstetrics and Gynecology Eating Plan for Women [...] your (t (more content not included)... Normal [facility] U Drug Screenon 04-14-2020 Amphetamines Screen method >1000 ng/mL Ql (U) Negative Normal Negative [facility] Comment on above: Result Comment: Nega tive Cutoff: <1000 ng/mL Performed By: #### 2 864460 #### [facility] [address] [place] [address] Barbiturates Screen Ql (U) Negative Normal Negative [facility] Comment on above: Result Comment: Nega tive Cutoff: <200 ng/mL Performed By: #### 2 966943 #### [facility] [address] [place] [address] Benzodiazepines Ql (U) Negative Normal Negative [facility] Comment on above: Result Comment: Nega tive Cutoff: <200 ng/mL Performed By: #### 2 946974 #### [facility] [address] [place] [address] Cocaine Ql (U) Negative Normal Negative [facility] Comment on above: Result Comment: Nega tive Cutoff: <300 ng/mL Performed By: #### 2 656277 #### [facility] [address] [place] [address] Opiates Screen Ql (U) Negative Normal Negative [facility] Comment on above: Result Comment: Nega tive Cutoff: <300 ng/mL Performed By: #### 2 849500 #### [facility] [address] [place] [address] Phencyclidine Screen method >25 ng/mL Ql (U) Negative Normal Negative [facility] Comment on above: Result Comment: Nega tive Cutoff: <25 ng/mL These drug screen results are to be used for medical (i.e., treatment) purposes only. Unconfirmed drug screening results must not be used for non-medical purposes (e.g., employment testing, legal testing). Performed By: #### 2 772508 #### [facility] [address] [place] [address] Tetrahydrocannabinol Screen method >50 ng/mL Ql (U) Negative Normal Negative [facility] Comment on above: Result Comment: Nega tive Cutoff: <50 ng/mL Performed By: #### 2 531725 #### [facility] [address] [place] [address] RAD - Ultrasound Reporton RAD - Ultrasound Report [id number] #1.00CD:127 Normal [facility] Lab Reportson 03-14-2020 Lab Reports [id number] #1.00CD:127 Normal [facility] Ambulatory Clinical Summaryo n 02-29-2020 Ambulatory Clinical Summary {[id number]- [id number]-98}CD:[id number] Normal [facility] Ambulatory Clinical Summary {[id number]-c9- 3a-73-bd}CD:340783 [facility] Obstetrics Office/Clinic Not jasmine 02-29-2020 Obstetrics Office/Clinic Note Chief Complaint OB 15w 2d, feeling flutters, occ. [place] Obstetric History History (1,0,0,2) # 1 Baby 1 Outcome Date: 2008 Outcome: Live Outcome or Result: Vaginal Gender: Female Gest Age: 41 weeks Wt: 3232 g Hospital: [facility] Benny Labor: -- Child's Name: -- Baby's [...] trimester) Ordered: Office Visit Level 4 Est 01755 TH 2. Obesity complicating , second trimester (O99.212: Obesity complicating , second trimester) Ordered: Office Visit Level 4 Est 11036 TH 3. 15 weeks gestation of (Z3A.15: 15 weeks gestation of ) Ordered: Office Visit Level 4 Est 05962 TH Follow-up With When Contact Information Funmilayo ESCOBEDO MD In [address] [place] [address]- Additional Instructions: Problem List/Past Medical [...] Protein Urine Dipstick: Negative (02/29/20 15:46:00) Normal [facility] Comment on above: Result Comment: Elec [...] Document Reviewed: 05/19/2009 ExitCare? Patient Information ?2013 [facility]. [facility] How a Baby Grows During begins when [...] flex an (more content not included)... Normal [facility] Physician Referralon 021 Physician Referral [id number] #1.00CD:127 Normal [facility] RAD - Ultrasound Reporton RAD - Ultrasound Report [id number] #1.00CD:127 Normal [facility] Physician Referralon 020 Physician Referral [id number] #1.00CD:127 Normal [facility] Physician Referralon 020 Physician Referral [id number] #1.00CD:127 Normal [facility] Chlamydia/Gonococcus, NAAon 01-30-2020 C. trachomatis rRNA KAIDEN+probe Ql (Unsp spec) Negative Invalid Interpretation Code Negative [facility] Comment on above: Performed By: #### 2 319111, 4948804, [id number] #### [facility] [address] [place] [address] N. gonorrhoeae rRNA KAIDEN+probe Ql (Unsp spec) Negative Invalid Interpretation Code Negative [facility] Comment on above: Result Comment: Perf ormed at: =G [facility] [address] [id number] MD Kehinde Rivero Performed By: #### 2 373633, 0471089, [id number] #### [facility] [address] [place] [address] Coding Summary.on 01-29-2020 Coding Summary. CODING DATE: 01/29/2020 FINAL [facility] STATUS: Home (Routine DC) PAYOR: Self [...] Garcia Date Saved: 01/29/2020 01:52 pm Normal [facility] Ambulatory Clinical Summaryo n 01-27-2020 Ambulatory Clinical Summary {[id number]-[id number]}CD:[id number] Normal [facility] Obstetrics Office/Clinic Not jasmine 01-27-2020 Obstetrics Office/Clinic Note Chief Complaint 1st OB 10 Weeks 4 days. Some Nausea. Obstetric History History (1,0,0,2) # 1 Baby 1 Outcome Date: 2008 Outcome: Live Outcome or Result: Vaginal Gender: Female Gest Age: 41 weeks Wt: 3232 g Hospital: [facility] Benny Labor: -- Child's Name: -- Baby's [...] drug use. Last pap 2-13-18, NILM. 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 Review of Systems Constitutional: No fever, No [...] genetic testin (more content not included)... Normal [facility] Comment on above: Result Comment: Elec [...] Document Reviewed: 07/23/2008 ExitCare? Patient Information ?2013 DZZOM. [facility] Patient Letter FTon 2019 Patient Letter [facility] January 27, [address] [place] [address] [place] [address] MYA MYLES 1990 Our patient Mya Myles is with a single IUP. EDC is 08/20/[address] [address] [facility] Coding Summary.on 01-22-2020 Coding Summary. CODING DATE: 01/22/[address] [facility] STATUS: Home (Routine DC) PAYOR: [...] Gloria Fleming Date Saved: 01/22/2020 08:46 am [facility] US 1st Trimesteron 01-11-2020 US 1st Trimester [...] corresponding gestational age +/- 1 week are: [place] Rump Length: 1.8 cm Composite Ultrasound Age: [...] Transabdominal Ultrasound Performed Size = Dates Normal [facility] Ambulatory Clinical Summaryo n 01-07-2020 Ambulatory Clinical Summary {[id number]- 73-79-56}CD:100012 Normal [facility] Ambulatory Clinical Summaryo n 01-06-2020 Ambulatory Clinical Summary {[id number] [id number]-[id number]}CD:[id number] Normal [facility] BhG Quanton 01-06-2020 HCG.beta subunit Qn 927008 m[IU]/mL High 1-3 [facility] Comment on above: Result Comment: GEST ATIONAL AGE HCG RANGE (mIU/mL) NON- <1-3 0.2-1 WEEKS 5-50 1-2 WEEKS 50-500 2-3 WEEKS 100-5,000 3-4 WEEKS 500-10,000 4-5 WEEKS 1,000-50,000 5-6 WEEKS 10,000-100,000 6-8 WEEKS 15,000-200,000 8-12 WEEKS 10,000-100,000 Performed By: #### 2 083895, 2708029, [id number] #### [facility] [address] [place] [address] Consent for Treatmenton 12-19 Consent for Treatment [id number] #1.00CD:127 Normal [facility] Gynecology Office/Clinic Not jsamine 01-06-2020 Gynecology Office/Clinic Note Chief Complaint Confirmation of , Nausea Some Vomitting. Has had Dark pink Spotting, First OB paper work added . Obstetric History History (1,0,0,2) # 1 Baby 1 Outcome Date: 2008 Outcome: Live Outcome or Result: Vaginal Gender: Female Gest Age: 41 weeks Wt: 3232 g Hospital: [facility] Benny Labor: -- Child's Name: -- Baby's [...] order subsequent US. Plan to refer to [facility] d/t hx child with congenital lymphedema. [...] test, result positive) Ordered: HCG, Urine POC 18189 Follow-up No qualifying data available Problem List/Past [...] Results HCG, Urine: Positive (01/06/20 09:31:00) Normal [facility] Comment on above: Result Comment: Elec tronically Signed By: Caroline HILARIO\.rosey\Date and Time Signed: 01/06/20 10:17 EST Progesteroneon 01-06-2020 Progesterone [Mass/Vol] 18.00 ng/mL Invalid Interpretation Code [facility] Comment on above: Result Comment: REFE RENCE RANGE Males 0.14-2.06 ng/mL Non- Females Follicular 0.10-0.60 ng/mL Luteal 3.00-17.5 ng/mL Midluteal 3.30-18.6 ng/mL Post-Menopausal 0.10-0.40 ng/mL First Trimester 8.30-66.5 ng/mL Second Trimester 18.9-66.1 ng/mL Third Trimester 35.8-312.4 ng/mL Performed By: #### 2 675463, 1587743, [id number] #### [facility] [address] [place] [address] Coding Summary.on 12-14-2019 Coding Summary. CODING DATE: 12/14/2019 FINAL [facility] STATUS: Home (Routine DC) PAYOR: Self [...] Garcia Date Saved: 12/14/2019 02:13 pm Normal [facility] ED Note-Physicianon 12-14-19 20 ED Note-Physician Basic Information Time Seen: Gege Love PA-C 12/13/2019 19:14 Chief Complaint pt to ED with c/o consuming plastic from a burger at [employer] today. pt is . denies complaints History of Present Illness This patient presents emergency department after ingesting some type of plastic while eating a sandwich at [employer]. She states she was at [employer] restaurant. She bit down on something hard [...] Blackwell In 3 days 12/16/2019 EDT [address] [id number] [facility] (1) Additional Instructions: Patient Education Swallowed Foreign Body, Adult, Nebf-mj-Sgox Problem List/Past Medical History Ongoing Ovarian cyst [...] available. Diagnostic Results No qualifying data available. [facility] Comment on above: Result Comment: Elec tronically Signed By: Gege Love PA-C\.br\Date and Time Signed: 12/13/19 19:34 EDT\.br\Electronically Co-Signed By: Ed Jerome MD\.br\Date and Time Co-Signed: 12/14/19 05:14 EDT Consent for Treatmenton 11-19 Consent for Treatment [id number] #1.00CD:127 [facility] Discharge Instructionson Discharge Instructions [id number]#1.00CD:127 [facility] ED Clinical Summaryon 2019 ED Clinical Summary [address] [address] ED Clinical Summary Person Information Name: MYA MYLES [place] Age: 29 Years : 1990 Sex: Female Language: Dominican PCP: Chao Blackwell III, DO Marital Status: Single MRN: Visit Id: Visit Reason: Medical screening exam; CONSUMED PLASTIC IN A BURGER FROM [place], APRX 6-8 WEEKS Speciality: Acuity: 4 Enc [...] 12/13/2019 19:44:03 12/13/2019 19:44:03 12/13/2019 19:44:03 ADDRESS: [address] [place] [address] [address] [place] [id number] PHYS DOC NOTES: MEDICAL INFORMATION: Prescriptions Given: Medications to Continue with No Changes Other Medications acetaminophen-hydroc odone ([place]enix 325 mg-5 mg oral tablet) 1 Tablets By Mouth every 4 hours as needed for pain. Refills: 0. mupirocin topical (Bactroban 2% Cream) 1 Application Topical 3 times a day. Refills: 0. PATIENT EDUCATION INFORMATION: Instructions: Swallowed Foreign Body, Adult, Skff-yl-Udhm Follow up: With: Address: When: Chaozay Blackwell [address] [place] [address], [facility] [place] [address] Business (1) In 3 days 12/16/2019 DIAGNOSIS: 1:Ingestion of foreign body Normal [facility] ED Patient Education Noteon 12-13-2019 ED [...] Document Reviewed: 05/22/2011 ExitCare? Patient Information ?2015 DZZOM. This information is not intended to replace advice given to you by your health care provider. Make sure you discuss any questions you have with your health care provider. Normal [facility] ED Patient Summaryon 020 ED Patient Summary [address] [address] Patient Discharge Instructions Person Information Name: MYA MYLES Age: 29 Years Arrival Date: 12/13/2019 18:29:24 Discharge Diagnosis: 1:Ingestion of foreign body Primary Care Physician: Chao Blackwell III, DO Provider Information Primary Provider: Advanced Mcat Instructor:None The exam and treatment you received in the Emergency Department were for an urgent problem and are not intended as complete care. It is important that you follow up with a doctor, nurse practitioner, or physician?s life enrichment assistant for ongoing care. If your symptoms become worse or you do not improve as expected and you are unable to reach your usual health care provider, you should return to the Emergency Department. We are available 24 hours a day. MYLESMIMI AlonzoGunjan Cintron has been given the following list of patient education materials, prescriptions and follow-up instructions: Follow-up Instructions: With: Address: When: Chao Blackwell [address] [place] [address], [facility] [place] [address] Business (1) In 3 days 12/16/2019 In the event that this physician does not participate in your insurance network, please consult with your insurance company to find a nearby participating provider. Patient Education Materials: Swallowed Foreign Body, Adult, Qbis-jw-Ttll A MESSAGE TO ALL PATIENTS REGARDING OPIOIDS PRESCRIPTION OPIOIDS: WHAT YOU NEED TO KNOW Prescription opioids can be used to help relieve foxucpcn-hz-ouieuw pain and are often prescribed following a [...] be struggling with addiction, tell your health medicare nurse and ask for guidance or call [facility] National Helpline at 5-243-948-HZDY. (more content not included)... Normal [facility] Vital Signs Date Time Vital Sign Value Performing Clinician Rene hernandez 12-12-2023 09:52-0400 Body mass index (BMI) [Ratio] 35.48 kg/m2 [employer] Work Phone: [facility] 12-12-2023 09:52-0400 Body weight 88 kg [employer] Work Phone: [facility] 12-12-2023 09:52-0400 Diastolic blood pressure 68 mm[Hg] [employer] Work Phone: [facility] 12-12-2023 09:52-0400 Systolic blood pressure 110 mm[Hg] [employer] Work Phone: [facility] 11-27-2023 15:35-0400 Body mass index (BMI) [Ratio] 34.57 kg/m2 Catherine TRACY Work Phone: [facility] 11-27-2023 15:35-0400 Body weight 85.73 kg Catherine TRACY Work Phone: [facility] 11-27-2023 15:35-0400 Diastolic blood pressure 76 mm[Hg] Catherine TRACY Work Phone: [facility] 11-27-2023 15:35-0400 Systolic blood pressure 114 mm[Hg] Catherine TRACY Work Phone: [facility] Healthcare Encounters Encounter Date Encounter Type Care Provider Facility Start: 12-23-2023 End: 12-23-[address] [facility] Start: 12-12-2023 End: 12-12-2023 Bamboo flowsheet Deven Russel DO Work Phone: [facility] Start: 12-12-2023 End: 12-12-2023 Bamboo flowsheet Deven Russel DO Work Phone: [facility] Start: 12-12-2023 End: 12-12-2023 ambulatory DEVEN RUSSEL Not Available Start: 12-12-2023 End: 12-12-2023 flow sheet Deven Russel DO Work Phone: [facility] Comment on above: Third trimester preg faina; 34 weeks gestation of ; Accessory placenta, third trimester Start: 12-09-2023 End: 12-09-[address] [facility] Start: 12-06-2023 End: 12-06-[address] [facility] Start: 12-04-2023 End: 12-04-2023 Office consultation new/estab patient 40 min Alysia Lee MD Work Phone: [facility] Comment on above: Obesity affecting pr egnancy in second trimester, unspecified obesity type (Primary Dx); Polyhydramnios, antepartum, single or unspecified fetus Start: 12-04-2023 End: 12-04-2023 ambulatory MARINA [facility] Start: 11-27-2023 End: 11-27-2023 ambulatory CATHERINE BAEZA Not Available Start: 11-27-2023 End: 11-27-2023 flow sheet Catherine TRACY Work Phone: [facility] Comment on above: 32 weeks gestation o f ; Third trimester ; Dysuria Start: 11-27-2023 End: 11-27-2023 Bamboo flowsheet Catherine TRACY Work Phone: [facility] Start: 11-27-2023 End: 11-27-2023 Bamboo flowsheet Catherine TRACY Work Phone: [facility] Start: 11-14-2023 End: 11-14-2023 ambulatory DEVEN RUSSEL Not Available Start: 10-24-2023 End: 10-24-2023 ambulatory DEVEN RUSSEL Not Available Start: 10-08-2023 End: 10-08-2023 ambulatory DEVEN R [facility] Start: 09-09-2023 End: 09-09-2023 ambulatory CATHERINE BAEZA Not Available Start: 09-06-2023 End: 09-06-2023 ambulatory DEVEN R [facility] Start: 08-12-2023 End: 08-12-2023 ambulatory DEVEN RUSSEL Not Available Start: 07-30-2023 End: 07-30-2023 ambulatory LADONNA KYARAEIM Not Available Start: 07-08-2023 End: 07-08-2023 ambulatory [...] 12-03-2024 Tobacco Screening Tobacco Screening [facility] Start: 09-05-2024 Adult BMI Screening Adult BMI Screen ing [facility] Start: 01-01-2024 End: 01-01-2024 Patient encounter procedure 01/01/2024 11:00 AM EST Appointment [facility] [address] [place] [id number] [facility] Start: 12-25-2023 End: 12-25-2023 Patient encounter procedure 12/25/2023 3:50 PM EST Routine [facility] [address] [place] [address] Catherine Baeza PA [address] [place], [facility] Start: 12-12-2023 End: 12-12-2023 Patient encounter procedure 12/12/2023 9:30 AM EDT Routine [facility] [address] [place] [address] Deven Goode, [address] Sidney Kapoor, [facility] Start: 10-20-2023 Influenza vaccination Influenza Vacc ine [facility] Start: 10-20-2019 Influenza vaccination Flu vaccine (# 1) [facility] [place] Start: 2013 Screening for malign ant neoplasm of cervix Pap Smear [facility] Start: 06-01-2011 DTaP,Tdap and Td Vaccines (1 - Tdap) DTaP,Tdap and Td Vaccines (1 - Tdap) [facility] Start: 2010 Adult BMI Follow Up Plan Adult BMI Follow Up Plan [facility] Start: 2004 [facility] Bacteria identified in Urine by Culture Urine culture Microbiology Routine Dysuria Ordered: 11/27/2023 [facility] Work Phone: Comment on above: Ordered: 11/27/2023 Payers Date Payer Category Payer [facility] BCBS Memb er Subscriber Plan / Payer (Effective 2022-Present) Name: Mya Olivas Relation to Subscriber: Self Name: Mya Olivas Payer ID: Not on file Type: Not on file Address: [address] [place] [phone] [id number] 2022 [facility] Managed Care - Other ANTHEM Member Subscriber Plan / Payer (Effective 2022-Present) Name: Mya Olivas Relation to Subscriber: Self Name: Mya Olivas Payer ID: [id number] (NAIC) Type: Not on file Address: [address] [place] [phone] [id number] 2022 Unknown BCBS BCBS xxxxxx [id number] 2022-Present [phone] [address] [place] [phone] [id number] 2022 Unknown [id number] 1990 Unknown [id number] .[id number]. 593 1992 Unknown [id number] 2.16840.1.293386.3.579.2. 593 1992 Unknown [id number] 2.16.840.1.212814.3.579.2. 1285 1992 Unknown [id number] 2.16840.1.731925.3.579.2. 1285 1992 Unknown [id number] 2.16840.1.209601.3.579.2. 128 1992 Unknown [id number] 2.840.1.221360.3.579.2. 1285 1992 Unknown [id number] 2.840.1.958385.3.579.2. 128 1992 Unknown [id number] 2.840.1.951461.3.579.2. 1258 1992 Unknown [id number] 2.840.1.181647.3.579.2. 1258 1992 Unknown [id number] 2.840.1.204637.3.579.2. 1258 1992 Unknown [id number] 2.840.1.391937.3.579.2. 1258 1992 Unknown [id number] 2.840.1.627515.3.579.2. 1258 1992 Unknown [id number] 2.840.1.802797.3.579.2. 1258 1992 Unknown [id number] 2.16840.1.790147.3.579.2. 1258 1992 Unknown [id number] 2.16840.1.959827.3.579.2. 1258 1992 Unknown [id number] 2.16840.1.986342.3.579.2. 1259 1959 Unknown [id number] Social History Date Type Detail Facility Tobacco smoking stat us NHIS Unknown if ever smoked [facility] Start: 1990 [facility]igned [facility] Start: 07-30-2023 End: 09-06-2023 Tobacco smoking status NHIS Never smoked tobacco [facility] Start: 07-30-2023 End: 09-06-2023 Tobacco use and exposure Smokeless tobacco non-user [facility] Start: 07-30-2023 End: 12-04-2023 History of Social function [facility] Start: 07-30-2023 End: 12-04-2023 Tobacco use panel [facility] Start: 05-01-2023 [facility] Start: 12-04-2023 Alcoholic beverage intake Ex-drinker (finding) [facility] Within the past 12 months we worried whether our food would run out before we got money to buy more. Never True [facility] Start: 08-15-2023 Sex Female (finding) [facility] Clinical Notes 04-21-2020 to 12-23-2023 Telephone Encounter - [address] - 12/23/2023 3:36 PM ESTTelephone Encounter - [address] - 12/23/2023 3:36 PM Brea Bravo LPN - 12/12/2023 9:30 AM DEMARCUS Vasquez - 11/27/2023 3:20 PM EDT Note Date & Type Note Facility 12-23-2023 Miscellaneous Notes CALLED PT AND LEFT A MESSAGE FOR HER TO MAKE A THIRTY MIN GROWTH U/S WITH MFM IN [place] OR HERE AT [facility]. THANK YOU LOYDA documented in this encounter [facility] 12-23-2023 Telephone encounter Note CALLED PT AND LEFT A MESSAGE FOR HER TO MAKE A THIRTY MIN GROWTH U/S WITH MFM IN [place] OR HERE AT [facility]. THANK YOU LOYDA [facility] 12-12-2023 History of Presen t illness Narrative [...] Diagnosis Date ADHD (attention deficit hyperactivity disorder) ([facility]) HISTORY PAST MEDICAL HISTORY SOCIAL HISTORY Past Medical History: Diagnosis Date ADHD (attention deficit hyperactivity disorder) ([facility]) Social History Tobacco Use Smoking status: Never [...] nursing note reviewed. Exam conducted with a boat dispatcher present. Vitals: Estimated body mass index is [...] antibiotic for UTI. Patient voiced that at [facility] they discussed extra fluid & reassurance given [...] DO documented in this encounter [facility] 12-09-2023 Miscellaneous Notes I LEFT A MESSAGE FOR PT TO CALL ME, I WILL CALL PT BACK TO SCHEDULE HER FOR A GROWTH U/S, ALSO A VIDEO VISIT WITH ONE OF THE DRS documented in this encounter [facility] 12-09-2023 Telephone encounter Note I LEFT A MESSAGE FOR PT TO CALL ME, I WILL CALL PT BACK TO SCHEDULE HER FOR A GROWTH U/S, ALSO A VIDEO VISIT WITH ONE OF THE DRS [facility] 12-06-2023 Miscellaneous Notes I LEFT A MESSAGE FOR PT TO CALL ME SO WE CAN SCHEDULE A GROWTH U/S. PT THINKS SHE ONLY NEEDS U/S AT PRIMARY OB OFFICE. CATHERINE Zehra SAID SHE NEEDS TO COME HERE. THANK YOU documented in this encounter [facility] 12-06-2023 Telephone encounter Note I LEFT A MESSAGE FOR PT TO CALL ME SO WE CAN SCHEDULE A GROWTH U/S. PT THINKS SHE ONLY NEEDS U/S AT PRIMARY OB OFFICE. CATHERINE Shahid SAID SHE NEEDS TO COME HERE. THANK YOU [email or web address] 12-04-2023 History of Presen t illness Narrative [...] mouth in the morning., Disp: , Rfl: [id number] acid ( 19) 29 mg iron- 1 [...] ALYSIA LEE MD documented in this encounter [email or web address] 11-27-2023 History of Presen t illness Narrative [...] Diagnosis Date ADHD (attention deficit hyperactivity disorder) ([facility]) HISTORY PAST MEDICAL HISTORY SOCIAL HISTORY Past Medical History: Diagnosis Date ADHD (attention deficit hyperactivity disorder) ([facility]) Social History Tobacco Use Smoking status: Never [...] Ross documented in this encounter [facility] 08-16-2020 Note DATE OF DISCHARGE: 0 [...] complications. Course: Without complications. Sukhdeep Schaffer MD, [facility] Dictated: 08/13/2020 #[id number] Typed: 08/15/2020 #[id number] cc: Sukhdeep Schaffer MD, [facility] Comment on above: Result Comment: Elec tronically Signed By: Karime MACEDO, Sukhdeep Olivera\.br\Date and Time Signed: 08/16/20 08:09 EDT 08-05-2020 Note The following Patien t Education Materials have been given to the patient: EducationMaterial [facility] 08-04-2020 Note Patient: LAZARO MYLES Age: [...] Attention deficit hyperactivity disorder / SNOMED CT 3040545872 / Confirmed Chronic fatigue syndrome / SNOMED CT 32768870 / Confirmed Depression during / SNOMED CT 8600188130 / Confirmed Insomnia / SNOMED CT 259662778 / Confirmed Obesity / ICD-9-CM 278.00 / Possible Obesity complicating , third trimester / SNOMED CT 5723767903 / Confirmed Ovarian cyst / SNOMED CT 456018552 / Confirmed / SNOMED CT 773251807 / Confirmed labor / Patient Care / Confirmed Supervision of high risk in third trimester / SNOMED CT 79853776 / Confirmed Histories History History (1,0,0,2) # 1 Baby 1 Outcome Date: 2008 Outcome: Live Outcome or Result: Vaginal Gender: Female Gest Age: 41 weeks Wt: 3232 g Hospital: [facility] [place] Labor: -- Child's Name: -- Baby's Father: -- # 2 Baby 1 Outcome Date: 05/26/2013 Outcome: Live Outcome or Result: Vaginal Gender: Male Gest Age: 39 weeks 3 days Wt: 3390 g Hospital: [facility] Labor: 5 hr 55 min Child's Name: -- Baby's Father: -- Complications: None Complications: None Family History: Hypertension Father Mother Diabetes mellitus type 2 Father Procedure history: No active procedure history items have been selected or recorded. 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 Home/Environment Lives with Children, Significant other. [...] hearing, Oral mu (more content not included)... [facility] Comment on above: Result Comment: Elec tronically Signed By: LAURA MACEDO, Funmilayo Ryan\.br\Date and Time Signed: 08/04/20 13:03 EDT 07-31-2020 Note The following Patien t Education Materials have been given to the patient: [facility] Note The following Patien t Education Materials have been given to the patient: [facility] 07-11-2020 Note HOSPITAL REGULATIONS : ALL Positive [...] for further cervical progression. Sukhdeep Schaffer MD, [facility] Dictated: 07/08/2020 #[id number] Typed 07/08/2020 #[id number] cc: Sukhdeep Schaffer MD, [facility] Comment on above: Result Comment: Elec tronically Signed By: Sukhdeep Schaffer MD\.br\Date and Time Signed: 07/11/20 07:40 EDT 07-08-2020 Note The following Patien t Education Materials have been given to the patient: [facility] 04-21-2020 Note The following Patien t Education Materials have been given to the patient: [facility] Evaluation note Diagnosis 32 weeks gestation of Third trimester state, incidental Dysuria [facility] Diagnosis Obesity affecting in second trimester, unspecified obesity type- Primary Polyhydramnios, antepartum, single or unspecified fetus documented in this encounter [facility]* Diagnosis Third trimester state, incidental 34 weeks gestation of Accessory placenta, third trimester documented in this encounter [facility] HealthcareInstructionsNot on filedocumented in this encounterProMercy Health St[facility] SystemInstructionsNot on filedocumented in this encounterProMercy Health St[facility] System Summary Purpose Family History No Family History Records FoundNo Family History Records FoundNo Family History Records FoundNo Family History Records Found Advance Directives No Advanced Directives Records FoundNo Advanced Directives Records FoundNo Advanced Directives Records FoundNo Advanced Directives Records Found Additional Source Comments INFORMATION SOURCE (unrecogn ized section and content) DATE CREATED AUTHOR 09/15/2020 [facility] DATE CREATED AUTHOR AUTHOR'S ORGANIZ ATION 06/29/2022 [facility] DATE CREATED AUTHOR AUTHOR'S ORGANIZ ATION 12/07/2023 [facility] DATE CREATED AUTHOR AUTHOR'S ORGANIZ ATION 12/13/2023 [facility] EPIC Reason for Visit (unrecogniz ed [...] BE BASED ON THE PRIMARY CLINICAL RECORDS. [employer] provides no warranty or guarantee of the accuracy or completeness of information in this document.
--- NOTE | 2023-12-24 19:12 | US_ITS ---
[address] [address] Patient Name: MYA CASTANEDA MRN: [id number] date: 1990 Sex: F Assigned Patient Location: US Current Patient Location: Accession/Order Number: [id number] Exam Date: 12/24/2023 19:16 Report Date: 12/25/2023 07:24 At the request of: ROCK HARRISON Procedure: US OB BPP w non-stress EXAMINATION: US OB BPP w non-stress HISTORY: EXCESSIVE GROWTH AFFECTING O36.60X0 COMPARISON: No relevant comparison available. TECHNIQUE: Ultrasound biophysical profile was performed in the radiology department. non-reactive stress testing was performed by nursing staff in the birthing center. FINDINGS: BREATHING MOVEMENTS: 2 GROSS BODY MOVEMENTS: 2 TONE: 2 QUALITATIVE AMNIOTIC FLUID VOLUME: 2 PRESENTATION: CEPHALIC HEART RATE: 127.96 bpm AMNIOTIC FLUID VOLUME: 11.7 cm GESTATIONAL AGE: 35 weeks 6 days US/US OB BPP w non-stress IMPRESSION: Total biophysical profile score: 8 Electronically authenticated by: IRENE ZUÑIGA Date: 12/25/2023 07:24
[2023-12-24 19:50] VITALS: BP 113/78
--- OUTSIDE RECORDS SUMMARY | 2023-12-31 07:50 | XMS_ITS | CCD ---
Author Organization [facility] Care Team Providers Care Die Setter Name Role Phone Unavailable Primary Care Provider Unavailabl e RUSSEL ., DR WILKERSON Admitting Unavailable RUSSEL ., DR WILKERSON Attending Unavailable RUSSEL ., DR WILKERSON Consulting Unavailable [place], DR IRENE Dee Consulting Unavailable RUSSEL ., [...] ARYANCATHERINE Attending Unavailable RUSSEL, DEVEN Attending Unavailable ARYAN, CATHERINE Attending Unavailable Medications Current Medications Medication Drug [...] 7 days. 21 capsule 11/27/2023 12/04/2023 Active [id number] acid ( 19) 29 mg iron- 1 mg tablet,chewable (5 sources) mg713-nwrk-scdly acid ( 19) 29 mg iron- 1 mg tablet,chewable Chew 1 tablet and swallow in the morning. Active Vit-Fe Fumarate-FA ( Vitamin Plus Low Iron) 27-1 MG tablet (8 sources) take 1 tablet by mouth once daily Vit-Fe Fumarate-FA ( Vitamin Plus Low Iron) 27-1 MG tablet Take 1 each by mouth 1 (one) time each day at the same time Active Vit-Fe Fumarate-FA ( Vitamins) 28-0.8 MG tablet (8 sources) Start: 07-08-2023 End: 07-07-2024 take 1 [...] trimester] Onset: 09-06-2023 Chronic Other complications of (7 sources) Placenta succenturiata; Translations: [Other malformation of [...] 09-06-2023 Chronic Other and delivery including normal (10 sources) Third trimester ; Translations: [Encounter for [...] of ] 11-27-2023 Episodic Residual codes; unclassified (7 sources) Gestation period, 34 weeks; Translations: [34 weeks gestation of ] Onset: 12-12-2023 12-12-2023 Episodic Residual codes; unclassified (2 sources) FH: Congenital anomaly; Translations: [Family history of other congenital malformations, deformations and chromosomal abnormalities] 12-24-2023 Episodic Residual codes; unclassified (2 sources) Gestation period, 36 weeks; Translations: [36 weeks gestation of ] 12-26-2023 Episodic Unclassified (1 source) 1st daughter born [...] Range Facility Urinalysis macro (dipstick) panel (U)on 12-26-2023 Bilirubin, UA Negative Negative - 4(70) +++ mg/dL [facility] Blood, UA Negative Negative - 50 [place]/mcL [facility] Clarity, UA Clear [facility] Color, UA Yellow [facility] Glucose, UA Negative Negative - 1999(110) ++++ mg/dL [facility] Interpretation and review of laboratory results Normal [facility] Ketones, UA Negative Negative - 160(16) ++++ mg/dL [facility] Leukocytes, UA Negative Negative - 500+++ [place]ae[place]/mcL [facility] Nitrite, UA Negative Negative - Positive [facility] pH, UA 6.5 5 - 9 [facility] Protein, UA Negative Negative - 1999(20) ++++ mg/dL [facility] Spec Grav, UA 1.015 1 - 1.03 [facility] Urobilinogen, UA 0.2 0.2 - 12 mg/dL [facility] Urinalysis macro (dipstick) panel (U)on 12-12-2023 Bilirubin, UA Negative Negative - 4(70) +++ mg/dL [facility] Blood, UA Positive Negative - 50 [place]/mcL [facility] Comment on above: trace Clarity, UA Clear [facility] Color, UA Yellow [facility] Glucose, UA Negative Negative - 1999(110) ++++ mg/dL [facility] Interpretation and review of laboratory results Abnormal [facility] Ketones, UA Negative Negative - 160(16) ++++ mg/dL [facility] Leukocytes, UA Negative Negative - 500+++ Saeed/mcL [facility] Nitrite, UA Negative Negative - Positive [facility] pH, UA 7 5 - 9 [facility] Protein, UA Negative Negative - 2000(20) ++++ mg/dL [facility] Spec Grav, UA 1.02 1 - 1.03 [facility] Urobilinogen, UA 0.2 0.2 - 12 mg/dL [facility] Glucose random or fasting- P OCTon 12-04-2023 External Glucose Fasting Or Random (Fbs) 126 [facility] POCT Hemoglobin A1con 2023 HbA1c (Bld) [Mass fraction] 5.1 % 4 - 7 % [facility] Urinalysis macro (dipstick) panel (U)on 11-27-2023 Bilirubin, UA Negative Negative - 4(70) +++ mg/dL [facility] Blood, UA Negative Negative - 50 [place]/mcL [facility] Clarity, UA Cloudy [facility] Color, UA Yellow [facility] Glucose, UA Negative Negative - 1999(110) ++++ mg/dL [facility] Interpretation and review of laboratory results Normal [facility] Ketones, UA Negative Negative - 160(16) ++++ mg/dL [facility] Leukocytes, UA Negative Negative - 500+++ Saeed/mcL [facility] Nitrite, UA Negative Negative - Positive [facility] pH, UA 7.0 5 - 9 [facility] Protein, UA Negative Negative - 1999(20) ++++ mg/dL [facility] Spec Grav, UA 1.025 1 - 1.03 [facility] Urobilinogen, UA 0.2 0.2 - 12 mg/dL [facility] PAP ACOG PANEL 2: 21 to 29on 05-24-2022 . . Normal [facility] Comment on above: Performed By: #### [id number] #### [facility] [address] [address] [address] Michael Garrett Age Gdln ACOG Testing 21-29 Normal [facility] Comment on above: Performed By: #### [id number] #### [facility] [address] [address] [address] Michael Garrett DIAGNOSIS: Comment [facility] Comment on above: Result Comment: NEGA TIVE FOR INTRAEPITHELIAL LESION OR MALIGNANCY. CELLULAR CHANGES ASSOCIATED WITH INFLAMMATION ARE PRESENT. Performed By: #### [id number] #### [facility] [address] [place] [address] Dr. Michael Garrett Methodology: Comment Normal [facility] Comment on above: Result Comment: This liquid based ThinPrep(R) pap test was screened with the use of an image guided system. Performed By: #### [id number] #### [facility] [address] [place] [address] Dr. Michael Garrett Note: Comment Normal [facility] Comment on above: Result Comment: The Pap smear is a screening test designed to aid in the detection of premalignant and malignant conditions of the uterine cervix. It is not a diagnostic procedure and should not be used as the sole means of detecting cervical cancer. Both false-positive and false-negative reports do occur. . Performed By: #### [id number] #### [facility] [address] [place] [address] Dr. Michael Garrett Performed by: Comment Normal [facility] Comment on above: Result Comment: Francisco Otero, Special Procedure Tech (ASCP) Performed By: #### [id number] #### [facility] [address] [place] [address] Dr. Michael Garrett Reflex Criteria: Comment [facility] Comment on above: Result Comment: The HPV DNA reflex criteria were not met with this specimen result therefore, no HPV testing was performed. . Performed By: #### [id number] #### [facility] [address] [place] [address] Dr. Michael Garrett Specimen adequacy: Comment Normal [facility] Comment on above: Result Comment: Sati sfactory for evaluation. Endocervical and/or squamous metaplastic cells (endocervical component) are present. Performed By: #### [id number] #### [facility] [address] [place] [address] Dr. Michael Garrett US PELVIS AND TRANSVAGon [...] by: IRENE ZUÑIGA Date: 2022-05-18 07:45 Normal [facility] Nursing Assessmenton [facility] Nursing Assessment [id number] [id number] Normal [facility] Coding Summary.on 08-16-2020 Coding Summary. CD:[id number] Gh0bWw+PGhlYWQ+PE1FV KXzO47lfRWncL8FH3yHC P5QQNJJSELWHG2ARL0jb SS9OQlvG1GnmzFw IcndaHCuSH10QXp1BLP3 wBwzWFkoaR8qeLJhA8f6 SwYrUY17eR52PRtvTEFp RkA7FaZkbwlyeTJa P0yaPwFkuTOyBdy+PHRh YmxlIHdpZHRoPScxMDAl CvHrfSweUN4yAe3oNJDm LWNvbGxhcHNlOiBj h5wyFUCaTOzbWX9bnZcr U2NbrYA4FQFyu8r3Hq08 dHI+RQGmAMN0nRvbTQnd r025NjXut2kkWIV6 wPLtHRbyKKT1P58ga4U9 QCUyIICnEFS9zKY8kM7f yLvkztixS5LdcDZaGjM1 IWI2kMRkcB7msCva rcvkxO4bPcc+Y30TDR2R LBYOKU2FHpd3S6TnTqrw dHI+CW44SCCuTC35fFZl zGZiz6hnpZb2PiEu EGLbCKI3xEfrAZxpz7Qo YBKzN45oyNJtq0Q4RQBg vKosqOIcFpBksOV2hE6p UQwrdovkv8cqanev Gbdbg2crda97oX33Q50s JScjXJCoWSE9GYEoNULx rOofhq8maV7yUa0+IDxj b2tgh6kksKf6HrOy UNJvieFbcYkqAID2g6Jv Ax60W2EazVyaz8UhNya4 qu65fIQkr0A9gZO3ZMal DNLxzS0gPRozWzW5 HHYeIaDrtP53gWFvMEgj Gt4joOcheGseTA3kCPCr yigrTTHstN7lHIKplBBl bNbzSJ7qMSQcpviv q656AxLbXRF9XSIogNOo Y3TzjI7iBrFnVTIyNZSr G5KvxMWrEVgtH886BXxm YsC2ZDXoecNkL0Cz KKXydBscJmB5a8G9Nf8Y w9UtwbskSYD6DNceTHP0 NaX2DtCcAxG3O2YgXzt0 BSCnxMcwMG4rE7Ud SVMeksjdfwggqRS1NOUl YWWcxM85jVBaEPmkSe7c a2T1x782KXYeVZVsoC55 Up1vhWdyQZMvtTYP wW3dubsoh8biotcoGtCn UAZaEFx6RYd5CEYmoCob KdRdWRO4AiL5AJF5qNLc xW4igNyknzplyU4v Oyc+Y67agG5bEQP1ZJL0 uwljSDObzdHqNZ18FY61 D9IuBgqyqQEqjRN+PGRp aiHpxXspVP6gKaZy l9etx4AkVTnrM1KbOPAt LFmhJhx9SIOpKWF5yQI0 qM3dUJEtPNksk3R1jKW0 O5HyakOyel7kf5tp LUErCHjzQ34wxYPyj7X3 BMPwtXB7PARlwSehYwYk bT88Lnk+NTWttRjau9Et Rcjdw1gcc8iraPc3 IjMwJSIgdmFsaWduPSJ0 i1DbCx75S97nMOcyEDCg ALLjULKzYEQmfHbfzk6y fE7kSa7+PGNvbCB3 zWM8fG8jYZWhOmP5RCwf F183PoUbqKPmKhznd0yh o3sjtNt1QnXcNPCgvrEf cFdeBJQ9d4SgVb71 L49kREppMGZdRVRiUIYc QJTjhJohhl9siA6eHf6+ PN2tz2ebqz40rG65xZF+ LWTtOSS1eXcrWMfl JEKbsD5jPCblCxV9RICf JaCntN54mHVjAAsgSf2u hSvbcHazOY1vCUEutugw d941CkPqv5olWQQe iWEzLPddRZP1I99gc0K4 TASoMQCkENW6lZB5eG0l bGlnbjogbGVmdDsgdmVy yFfxMBkvEIquZ131 IHRvcDsnPlBhdGllbnQg PfQvMLz6Y1TnEoi5WMPg qXxwAH8pnMSdDVklPk1p kUirlXnkWP0mBAOl boyuu703MxDrv8efLHVy sMFjOZupPYL5L64jr7N9 KQEvBFQcPUI2pTE9gE5u bGlnbjogbGVmdDsg qpJciIdtZQbcPMcvU883 IHRvcDsnPkJpcnRoIERh pMN8ZE86CJ85cUZey4K7 eMZ4S6WzNDHdexmn lwbunWV6BRMbXSJskK95 Bv9ajBaeZs3jLLRyTKC1 DAHgeHYtP6WygQ3wWgDt AJYaWKQwL9YlgCEb YYbgK798ONypJdX3DFSi twOaM0IvINAsfPluMwI3 t7L6Bg8FN5L4DX71TK76 tYYgm0K5rOS0F3Tc OFBndkeuctkctWT4JRLt RAPluX80Da2xiCrfVp0y UFUjCUV2BNBkvEOdX1Zo sV6iWhZlSSDeJNNt S2QzcMVtLWxiW612SAsz AzS4JJYczsZkL4VsXOQc oWvtTjS0m9G5Iu2GSTr3 AF38YD97jEKol9N9 bWW9O7EoYMRvyblspzfm qRI3XYRtBFWioC02Nz3i hZusFs0rXDBvZAN1JCFu iMJpO7BgbE6yCmUb ESSoKZTyF5DsgHAkJSdg C136LLnbVqG5HJGklgKl N1ObHJIbfMeiKcX6g1L9 Lk4RHFXkWO69LKK5 hON3JQ97BY86M7HfFzsl dGFibGU+PHRhYmxlIHdp ZHRoPScxMDAlJyBzdHls EM9jIx9qQONvHBYq rDqwaDNzStWcx3zgBCTb MQzhBX6xbQumM6GsxHH8 UNAey3y9Pq03P10xF1Rv dXA+EMNxfDC3cLL9 qZ7lPjFvXhL1YRefF093 UaJgbXXaEcdss2xis4db tYu1DwE2YSFdtdLjzXkh XLT6c0MkQq78Z29h IHdpZHRoPSIxNSUiIHZh pSoarx8hyL5dLl5+PGNv oKO5dLP9uV9aGoXeOiR4 RCaxU057NcViyZHr Xghlk5bmt6tpmTz7SkOz EAOevnXrkVixEPZ6z0Ff Se07P1NnlYepk1IrWsx3 yd03iMEmx4G3dMZ5 H8SfDQJpsulufZJtuYky WI4aEIGaqpfeLVDucB3c UBYuI0x3OyMpZkL6KImc O5OtuzE6QQGrqPAx KXpbFIY0P04zj3V2GIZf KQQoJNP3xJR5qW2jqZiw bjogbGVmdDsgdmVydGlj FUluPZkqT286BXXa hKxwOEYbuI5nANGfkINc dYilHQ2aKEVkhmdmMsXO HjwFXk8cUNBQFmZTK7Oa TDwvdGQ+PHRkIHN0 mBnkTTmvLTCejX9dIKEf G6k5SiChWkO6DRdbM1Jk BUYhrdnjLp16vU2sQsDc OwB8CGiqN1DydiV5 EFAlhVYlLXboEIQ1D66w q8V2TNGuDFFhVHI8vHY4 aB6stJijwjummWHimPvn dmVydGljYWwtYWxp N452NUGjtDwyYbB3TzFg IiS1AAU0F0HbNcl5UCMm pHehRL7zyFArJImoJa3g vZqvfSgaDU6aVPRg wllyMFJjhJ5iXKLyzVLp cLugCA5rBJPadqhto151 GbEvFSG4JJXqkGSbL1Mx aS3vVoZqFUSoQHXh T2OgsCYfNFbpZ550QDxq SuK8GZEbypEuF6AgZWSg mXlqZsF2c2U3Vr2nNBDF ZWFyczwvdGQ+PHRk VID2gBkwDPwrIQPasX0y EFDaR2j7EiJsLjG2ZFxh O0AzNATogmgcZz74nD0s ZaOwTyE2ACqmO2Dd puP4VCSexBQiJVniZPV3 N19xo5S6NZIwNYRvTLC3 fIU0iZ9ynPwkxbrzeYAu dDsgdmVydGljYWwt VWwmN250KYBnqZllBoRp bWFsZTwvdGQ+PHRkIHN0 dVzhRDuaPYNwiW9lNNHw Y3b5IuFtZvU8BUcv N0FyIMNermtfUu02vG4w OpDmMzN3FMldB1KjjvM7 QJTldUWxFPtvSRK3N46l d9M8LYTfSKPaRZT2 hLH6zT1coJeclrktdMQn dDsgdmVydGljYWwtYWxp R618STZlpOepNt07rTIe hZlklsU5Z5LtCkzj dHI+TR08HVWbQV82bQWt bVQrk4nkqDp0IkUoXUBh QAS8sOqdTGclb9WmBYPf Y57iwBAbq7Q1USJz qBbdaUVmBiPgtVC4qK4d GXugjwxzk3cqwgbaFfca u0jshd38sJ80M91tKLhi ZHRoPSIzMCUiIHZh iBmdrk5isA0jRv4+PGNv kVB4cLB0dT6jLhKmZdC6 OJotM078TkZsjIYqYfpo g4dkb4pkuDs3KeIe PFXxltLcqOkmKTB1r2To Fc39U70fUAyjWRSaFERj IVGcGMLzuWwfnp2nlM0w Ii8+NC8vd4kuoa41 sE21fOB+KCVgIEU4hKzw TOpqBPZbvY5fNYfwFgD5 PPMxUiVrqV93vMMaFVlf La2qkQcadMmjIS3j NGKsoocpy175RcQfg2gn GPSigBRdEUphSIW5Z37o c4Z4FSFrBSOiIEY6lNF8 lJ8rwPcvusqxqODs dDsgdmVydGljYWwtYWxp E399IFGacBcpPsBanMNn K8sridLESS1rVwreeZB+ GAXvQTI7tGeiTQzm QRKhgV7mKMLbT8z4LpGj XhV1QQcpA1SfrqW3BLXk qMFpJLRngGJReS3jumns a2nofsipPeTlYXNy FUj5CBf0CFPndOwaHvMf RXV3TfD9YWG6yJGfbX9f vUuqqwibxX7oGbl+RklO OjwvdGQ+PHRkIHN0 nQjpPYxcYZBpsT1jNAHy V8n4AwHiFdJ7HOttI1Bd feF6HNDnaSOgKSBduHBL bV8yypqoq8xugvpz GtAuFIZcMJu6ZNy4SKRo ySvqAdFfVYT3RwL7OUW3 zCIgdD2ehSquczdweO7t Oyc+TVJOOjwvdGQ+ RMZkVZW2sKpbOYqvZQQf hQ2yLSArQ1e2AnPfAyZ5 SYcsO5RdiaL2FZItoEWg BFTdiMFToY1cdrqj j6clwhoqBcEkNFJwBQo0 RVt8SWMuuBtvKwGpRGJ6 PlV1POV1sPCubJ9tbAqm ewlfdT4jWqd+UGF5 XYM6KZ47ZM08F9QkHnzz dGFibGU+PHRhYmxlIHdp ZHRoPScxMDAlJyBzdHls CM9jXh8zXYYoYTGl bGxh (more content not included)... Normal [facility] Coding Summary.on 08-15-2020 Coding Summary. CD:[id number] Gh0bWw+PGhlYWQ+PE1FV VFiM42nkQNyaL1PZ4mFH Y0THFFTDWTLDA0WAS9fw JY8SGptB5WzhwLq NpqktOCmOI18JRh8DJB6 nNlcFSwviG3gsSLkT4e3 RrOsHX72hG58REeeQRJc HkD3EgZermlhkKLl V3rqFaBsmOOyZfd+PHRh YmxlIHdpZHRoPScxMDAl NvElsFjhPU6vFf8lLJZe LWNvbGxhcHNlOiBj d6bgYJGdWRlvXX9lkMbt P3TsaQE3XOSfy0f2It05 dHI+NKTeIQN1mMmcAJup j555KuTdj0hoSUX2 pHHzJHsnKPT3U58ns7E5 GNVxSBLoOVO9iOT9aP9f vUilsbswJ8UhdPNcPqM9 MAL6tIRupJ2ekJsg rktviV0wNqo+W84CPR0M KOGFNT5GGte5H1KcPbrx dHI+GB93WETlAZ05pQIh tVScg0ngiAz4VqTb SODxJRH5jXuoFNryo1Rr ZBPwB38izKRwe9H2AEOg kTkmiYEyWqQbxGC1gC1f UJsjvqryz5fxstsx Xcfdl7dkyl87vK68J10b SZxoGTPeWUA0KBNsOXDj nZkdnn1awA6wGm8+IDxj h4kya9ahoMr8SeTk PUQqdhZxzWyiJTB9l2Oc Xc83Y1AgxZuln2FwPay0 kr98uEDlk5H3oXL7HItx PTGtjM8mWOlgVpI3 QBPeIzWbcB96kNPuTGny Zu4diCpdsEtgTP5lILGh nejoGWHjtB0tLKXhfBEk gRefQW8jGVPhwgji u653FwTbJLK4HRBiwDIm W1TqeU6xZbXkXDZxWNZq U5GemXQaZHdaJ256FAsj JdO3QFVizlOrL5Rt SSUvxPkwIkG0k5V3Nq2P a4XuimaxWXY4ILduYWE0 MzK1UuQoBhL1M5BuSrf3 TTJaaGktNH6xZ5Mt OIGlgxmqxtrpxZU3FVIs ASHpbG94wWRfWXhqOr0s r7E0h702KYCrICRojX47 Dx3obTsfEOQrpVUX bU9hyznkc1xaqbsvDyIk ZBYzVCt4CYy1MOWiaYik CzIqLIK7MuX1HOQ5zBLq aH0zlDzrtmbbvT9s Oyc+N78dtX7hDXE4SNZ0 adidXJOebjXvFV64XE98 Q7FlQbxskNFmgYD+PGRp nvKrzDceZI1nCpVr q5iuq0PiNUspE6NaBZFy OZqlUtw0ZBQsKAC6hCF1 gW2sQMJuOBprm0Q1wRV3 J3EtxtGbra0ai1vx AZIdQVwzO93waLUtu0Y9 YPHeoOX0QBKtaYpcJtYi dP87Wqi+JWFyqQqpn4Zx Fddco9utm9qekCd9 IjMwJSIgdmFsaWduPSJ0 g1PkWf25B10oJJvzQQOq PJGiFELuULKgmYgqsf8i pQ3wPb1+PGNvbCB3 pKX3yG5cBOVhRuO8WLnh T939ImEisIDeQachu8nu b6svmTi9OyBtZZMduzYp pXtjALG6e8IbYk13 Y61oILhkOKExLIGcQTAj RCKonNujax3ghM8oQj7+ LW6qb1iaxg07iM45iXN+ WNAbOLI4mLckYKgr OITwdQ3dZYlpAdI7YDTj KpNiqV38yJXaJQefYc8m wXcupCngKO1gOFLitspl h059LrAsf4psOYWu aYYoNYkeJBS7U02as5Q5 IFKdVDLxZRK4uOR7aW7u bGlnbjogbGVmdDsgdmVy sGxgZBrfDVmeE278 IHRvcDsnPlBhdGllbnQg KhPbAVq3Y1YuVup6RTHb rJgeMO3ivPPtOTdzYh1z mFuflKywMF6lTEWs vxkbx375JhHek9stFLHi eQUsYHvcHIC0L59oq5D5 KSIfAXJiBKU4iBM8fJ5l bGlnbjogbGVmdDsg hxXrbKzuPQgrHAafV112 IHRvcDsnPkJpcnRoIERh iLY2SL46MB61nZBog1R8 jGS1I3KwZDZmnynv apiorMK2ZBKhTLMsbE66 Rz4tbLkfJm7mKTVaJSU3 MHAixRHuQ1XctQ1iShBl BPBrDJUqO1JghKVm NKtpU186FHinEyN3BHFy siWqK1GjZFKwqNvsCqF2 u1C4Nb8EG6U3EJ56RD70 rKVwj8Y4uWQ9H7Xj BJWfswtabglctCG9NURg YNUewK23Yh8hzQtvIe3u OSFhAHL4NLXkdFYvK9Ok vN0nEfGkIBQtJCZm B3MhvVYzBAxqK915OCnd LyN0DPJtqiRfG1YxGKHr rRpgAwH7a5B7Ne4LVSg8 IF72YM62zTOrm4R4 jIB5M9CwTVZummbofayu hBZ2FXAjNAVgxV68Ug2n vJusFk8dYRJyNUK9QKAm jCIrU1EngY9sTxHz HCWqZGBbI1BnsQYkIYxu B640MTgpPnC7NEYygzZk K7YkDSBxiLkwWhC2x7J3 Cy3GUQViSE48GUI6 fTP0KW75RP22K5AtSorz dGFibGU+PHRhYmxlIHdp ZHRoPScxMDAlJyBzdHls VY5wFv5vLRVcUKXt wTdznAAjAmPqw8leBVDx XTjxAK8ggNpnI6BgaRR9 UANvg0o8Ko41Q18kB1Wm dXA+ANFnwKY1mCG0 nB2wXhBhCvX9FGghA524 LrXaeXQxKcatk5bpb8gl zVe6KrS5PWLvrbZslOud FXR6r4DeNp26L73e IHdpZHRoPSIxNSUiIHZh kEqktq2byN9bBj9+PGNv eGZ1qGI4vB2yJaOuVtG2 NStsU888XbTjnWAr Qeixw8dyx8qunGh9PeGo DRCozeLcpSxcHAF2l5Zx Bn22E4XgjTgko7JzYbu3 fl83vQSvt9H6cKP9 X5XsQVYronvecWStoFed CM4cMDEqulqcBPXvdK9r IFIxJ1s2RqTqBsM7SYzi O8QqocZ6BPEpkCMh XSleQOC1I78vj5K3YXLm EWPwXEM6lQG3eW1szEsx bjogbGVmdDsgdmVydGlj JVutQCfxX873OXUq jCjuNRTzmA0xFRAidJSx aPnlXR5rLRMdwfsmBzHA RocXRi4hWCJQJkEKW4Iw TDwvdGQ+PHRkIHN0 bAkyZRmfJOWbcT8aRCTf M7p7SqFnQpB0RQhpE6Jm UUTmzvjlTg46wA0mMaBq CoK9YLkqC6VbnjX5 FBOjwHDzLFsrTPQ5C39r h6Y9DAMfRNOzEOZ2zUK1 cN3lpZmswzycmAXdoCpv dmVydGljYWwtYWxp T653SLIxwAcwVtT4DhOg WwA8NXB5A0VvLfg8RXSg aBceSF0rcFLrYJnlIi3v nRarvNazMA7mEUPr zbatELRkuW4dYRBdiXBr zHqfSE2fCAWgpzwbk164 OgRrGOF5PCOtkJQpW4Mw kQ4fAjApIWZnVAZp J0JalAJcRHmdZ730ASgs MbX0JOGjbhZiK9EhRCCw iKvtFdW1r0Z6Ke9sIQZN ZWFyczwvdGQ+PHRk KIG9cIrvHLoaSDCxsO3u KKDzZ1e3SqIfOgC3ZGuq B1KgSILijrenPq67jH5k OmBcZzO6YMemP6Jq tyL7LXYgoYIvJPlzSXR5 R71kp7Q9EEQhTMYaRTN5 qSU3xI7pdXnaqaptnFKg dDsgdmVydGljYWwt NWoxQ592HQWueYsrIjOc bWFsZTwvdGQ+PHRkIHN0 aKhnEGbeKEWrhS4qJTCg G0h0WvVgAvS9TDry E9AlTQDwacerVn36dL7r CdLmRxK4QSiaJ3OspwZ7 YLMpaSErUAzjRXA3K23p l0C6FDJjQJYuZRQ7 jWD9mR2hhKwxbllqeVOm dDsgdmVydGljYWwtYWxp L911FTCqiPpqVerunOE3 aWVudDwvdGQ+PC90 en31N0DoRzggWqa3LWIr DVI4uCA9aC3yMSClLSsp h7X3aIL9A9XvqkJtga3n c9rpWIEmJLexQ96w tIPzt3M9YLTxpGJ1ICSq wBugPyNoyO11Hot+PGNv yOatp3JyYxnrm2pet8bv wAd6TrCcANRogpYn tOsuNNI9v4VuUl54O20m IHdpZHRoPSIzMCUiIHZh bQienz0nxG3gYb7+PGNv sMQ9rDP2mJ2sOoGr TvT4SKupD805HqLixRSi Ukeaj8ija0zewKs5BaPr TNJeqiTmeBqpBTP9i9Dl Lv20L9PjbRjnp8Ft Xuq1dd49yBFvb8T6tWQ4 Z4MmFDKlubltmQNkqCel ER5wENAwjilmGJXejX0q XLYbY9w2JoMvAcY1 SWejH6ZisvZ2VEZgxRXx DMQyxBFHtU6djkrdh5qb dqngPdPyBZUfQDj5IMg3 LWFsaWduOiBsZWZ0 SpV6YJU8nUWpiP1lkEaj zeakwC4uPvj+YZs2w9dc cMEfLQ4jdFT0FH27JP93 nYHig6R8aUE0Y1Oz GWWxosjhihaqbVM4MCEy XCFzlE51Aa2ohOlvQg4n ZOMuPHY5MFLnvVGhP1My tI2gFbCuWKVgQXYs H9KmcIKqCRmbN389PLtz BgQ4QKVcawRdQ6LgVIYb fLjhVgR0y9P4No6NBC13 GP91NG64fEJbc5W1 qXC4P1LoJFOlhntigumk oLF9BJTiZCDwmU19Wq1i qJunBz1mTSOoAUO2LJWz rUDkW8NvhD4mQsUv DEMoGMQdS9HucPGyOMgn S776BQpqXgK6PVZhmdHp U1YaOXOhdKabLqL0l9I0 Fr5ILn84BB07MU32 rJYyo0Y0fPK4M2JmAABi qyfopuywaNS4XSVxFWRs nQ41Hc7nzSzdCq7zXLAq AKE0EFMcaGTnP3Te nU3eWdOvXKHdDESbG2Dw kJYtVFdvK148NMdiKcM8 FDOdguFoI2PhMQHjiWtg PoL5r2L5Ad5VPRkd bfc5W9VwVhgqsUV+PC90 FEPlHT70cHOfjTStz5xb lDy2MhGxUQYfMNQ9iAoo FYerd2IlXKEyN15s bGFw (more content not included)... Normal [facility] Consent for Treatmenton 07-20 Consent for Treatment [id number] #[id number]:127 [facility] General Message Officeon General Message Office --- --- --- --- - -- --- --- --- --- From: Vivien RichmondInbox To: MYA MYLES Sent: 08/06/20 02:30:52 AM EDT Subject: Discharge Summary Ready to View A summary regarding your recent visit is available in the Documents section of your health record. Normal [facility] CBC w/Indiceson 08-05-2020 Erythrocyte distribution width (RBC) [Ratio] 15.1 % High 10.9-14.2 [facility] Comment on above: Performed By: #### 2 [id number], [id number], [id number] #### [facility] [address] [place] [address] Hematocrit (Bld) [Volume fraction] 26.0 % Low 34.0-46.0 [facility] Comment on above: Performed By: #### 2 [id number], [id number], [id number] #### [facility] [address] [place] [address] Hemoglobin (Bld) [Mass/Vol] 8.6 g/dL Low 12.0-16.0 [facility] Comment on above: Performed By: #### 2 004111, [id number], [id number] #### [facility] [address] [place] [address] MCH (RBC) [Entitic mass] 26.3 pg Low 27.0-34.0 [facility] Comment on above: Performed By: #### 2 025859, [id number], [id number] #### [facility] [address] [place] [address] MCHC (RBC) [Mass/Vol] 32.9 g/dL Normal 31.4-36.0 [facility] Comment on above: Performed By: #### 2 [id number], [id number], [id number] #### [facility] [address] [place] [address] MCV (RBC) [Entitic vol] 79.7 fL Low 80.0-100.0 [facility] Comment on above: Performed By: #### 2 694916, 3407189, [id number] #### [facility] [address] [place] [address] Platelet mean volume (Bld) [Entitic vol] 8.0 fL Normal 6.4-10.8 [facility] Comment on above: Performed By: #### 2 281781, [id number], [id number] #### [facility] [address] [place] [address] Platelets (Bld) [#/Vol] 259.0 E9/L Normal 150.0-500.0 [facility] Comment on above: Performed By: #### 2 032010, [id number], [id number] #### [facility] [address] [place] [address] RBC (Bld) [#/Vol] 3.3 E12/L Low 4.3-5.9 [facility] Comment on above: Performed By: #### 2 031196, [id number], [id number] #### [facility] [address] [place] [address] WBC corrected for nucl RBC Auto (Bld) [#/Vol] 10.2 E9/L Normal 4.0-11.0 [facility] Comment on above: Performed By: #### 2 211455, [id number], [id number] #### [facility] [address] [place] [address] Discharge Instructionson Discharge Instructions [id number]#[id number]:127 Normal [facility] Inpatient Clinical Summaryon 08-05-2020 Inpatient Clinical Summary [address] [address] Clinical Summary Person Information Name: MYA MYLES [place] Age: 30 Years : 1990 Sex: Female PCP: Chao Blackwell III, DO Marital Status: Single Race: White Ethnicity: Non- or Language: Colombian MRN: Visit Id: Visit Reason: Speciality: Acuity: 1 PP Enc Type: Inpatient Med Service: Obstetrics Arrival: 08/04/2020 06:59:23 Discharge: 08/05/2020 17:20:00 Dispo Type: Home (Routine DC) Address: [address] [place] [address] [address] [place] [id number] Provider Notes: Diagnosis: Depression during ; Obesity [...] Follow up: With: Address: When: Sukhdeep Schaffer [address] [place], [place] [id number] Business () Within 6 weeks Comments: Call Dr if fever>100.5 F, heavy bleeding Call for any problems. Nothing in the vagina for 6 weeks Type Location Start [facility] 09/15/2020 9:00 AM 09/15/2020 9:15 AM Confirmed Patient Education Information: ibuprofen 600 mg Tab Normal [facility] Inpatient Patient Summaryon 08-05-2020 Inpatient Patient Summary [address] [address] Patient Discharge Instructions PERSON INFORMATION Name: MYLES, MYA Abdulaziz Date of : 1990 Current Date: 08/05/2020 18:16:41 PHYSICIANS Admitting Physician: Funmilayo ESCOBEDO MD Primary Care Physician: Chao Blackwell III, DO PCP Comment: Discharge Diagnosis: Depression during ; Obesity complicating , third trimester; Supervision of high risk in third trimester Condition at Discharge: Stable JUSTINO MYA Cintron has been given the following [...] Follow up: With: Address: When: Sukhdeep [place], [address], [facility] [place] [address] Business (1) Within 6 weeks Comments: Call Dr if fever>100.5 F, heavy bleeding Call for any problems. Nothing in the vagina for 6 weeks In the event that this physician does not participate in your insurance network, please consult with your insurance company to find a nearby participating provider. Type Location Start [facility] 09/15/2020 9:00 AM 09/15/2020 9:15 AM Confirmed Comment: JUSTINO Burton VANESSA L, have received the attached patient education materials/instructio ns and have verbalized understanding. Patient Signature Date Clinican/Nurse Signature Date MEDICATION LIST New Medications [id number], [address], [place] [id number], [phone] ibuprofen (ibuprofen 600 mg Tab) 1 Tablets [...] younger th (more content not included)... Normal [facility] ABO/Rhon 08-04-2020 ABO/Rh Positive Invalid Interpretation Code [facility] Comment on above: Performed By: #### 1 [id number], [id number], [id number], [id number] ####[facility] [address] [place] [address] ABO/Rh History Checkon 08-04 ABO/Rh History Check Verified Hx Blood Type Normal [facility] Comment on above: Performed By: #### 1 [id number], [id number], [id number], [id number] ####[facility] [address] [place] [address] ABSCon 08-04-2020 ABSC Gel Interp Negative Normal [facility] Comment on above: Performed By: #### 1 [id number], [id number], [id number], [id number] ####[facility] [address] [place] [address] Blood Bank ID#on 08-04-2020 BBID# [id number] Invalid Interpretation Code [facility] Comment on above: Performed By: #### 1 [id number], [id number], [id number], [id number] ####[facility] [address] [place] [address] CBC w/Indiceson 08-04-2020 Erythrocyte distribution width (RBC) [Ratio] 14.8 % High 10.9-14.2 [facility] Comment on above: Performed By: #### 2 [id number] #### [facility] [address] [place] [address] Hematocrit (Bld) [Volume fraction] 31.7 % Low 34.0-46.0 [facility] Comment on above: Performed By: #### 2 063644 #### [facility] [address] [place] [address] Hemoglobin (Bld) [Mass/Vol] 10.2 g/dL Low 12.0-16.0 [facility] Comment on above: Performed By: #### 2 792181 #### [facility] [address] [place] [address] 63381 MCH (RBC) [Entitic mass] 25.6 pg Low 27.0-34.0 [facility] Comment on above: Performed By: #### 2 197546 #### [facility] [address] [place] [address] 32614 MCHC (RBC) [Mass/Vol] 32.1 g/dL Normal 31.4-36.0 [facility] Comment on above: Performed By: #### 2 965626 #### [facility] [address] [place] [address] 40508 MCV (RBC) [Entitic vol] 79.7 fL Low 80.0-100.0 [facility] Comment on above: Performed By: #### 2 621202 #### [facility] [address] [place] [address] 37759 Platelet mean volume (Bld) [Entitic vol] 8.3 fL Normal 6.4-10.8 [facility] Comment on above: Performed By: #### 2 803699 #### [facility] [address] [place] [address] 79[address] Platelets (Bld) [#/Vol] 341.0 E9/L Normal 150.0-500.0 [facility] Comment on above: Performed By: #### 2 862402 #### [facility] [address] [place] [address] 29265 RBC (Bld) [#/Vol] 4.0 E12/L Low 4.3-5.9 [facility] Comment on above: Performed By: #### 2 332280 #### [facility] [address] [place] [address] 94882 WBC corrected for nucl RBC Auto (Bld) [#/Vol] 8.2 E9/L Normal 4.0-11.0 [facility] Comment on above: Performed By: #### 2 261281 #### [facility] [address] [place] [address] Consent for Procedure/Surger yon 08-04-2020 Consent for Procedure/Surgery [id number] 9#1.00CD:127 Normal [facility] Consent for Procedure/Surgery [id number] 3#1.00CD:127 Normal [facility] Consent for Procedure/Surgery [id number] 5#1.00CD:127 Normal [facility] Consent for Treatmenton 07-19 Consent for Treatment [id number] 2#1.00CD:127 Normal [facility] Consent for Treatment [id number] 06 [id number] 9#1.00CD:127 Normal [facility] Delivery Summaryon Delivery Summary Patient: MYA [...] Stable. Maternal condition: Stable. Funmilayo Escobedo MD [facility] Comment on above: Result Comment: Elec tronically Signed By: LAURA MACEDO, Funmilayo J\.br\Date and Time Signed: 08/04/20 15:29 EDT Discharge Instructionson Discharge Instructions [id number] 9#1.00CD:127 [facility] Help Me Grow Referralon 07-19 Help Me Grow Referral [id number] 06 [id number] 4#1.00CD:127 [facility] Progress Note-Physicianon Progress Note-Physician Patient: MYA MYLES Age: 30 years Sex: Female : 1990 Associated Diagnoses: None Author: Kevin Haley Jr., DO Postoperative Information Post Operative Note: Day 2. Anesthetic utilized: Regional: Epidural. Health Status Allergies: Allergic Reactions (Selected) No Known Allergies Problem list: All Problems labor / Patient Care / Confirmed Ovarian cyst / SNOMED CT 995668318 / Confirmed Attention deficit hyperactivity disorder / SNOMED CT 2526557893 / Confirmed Obesity / ICD-9-CM 278.00 / Possible Obesity complicating , third trimester / SNOMED CT 8465136291 / Confirmed Depression during / SNOMED CT 9681650483 / Confirmed Insomnia / SNOMED CT 773950094 / Confirmed / SNOMED CT 991958080 / Confirmed Supervision of high risk in third trimester / SNOMED CT 02364890 / Confirmed Chronic fatigue syndrome / SNOMED CT 37627119 / Confirmed Resolved: / SNOMED CT 861926862 Resolved: / SNOMED CT 955373263 Canceled: Obesity complicating , first trimester / SNOMED CT 1856066124 Canceled: Obesity complicating , second trimester / SNOMED CT 5067058495 Canceled: Supervision of high risk in first trimester / SNOMED CT 75005216 Canceled: Supervision of high risk in second trimester / SNOMED CT 27429961 Physical Examination General: Alert and oriented, No acute distress. Neurologic: Normal sensory, Normal motor function, No focal deficits. Review / Management Result Review Condition: Stable. Assessment Anesthetic outcome No post-epidural complications noted.. Plan Transfer/ Discharge: Condition stable. Normal [facility] Comment on above: Result Comment: Elec [...] / Confirmed Ovarian cyst / SNOMED CT 152896649 / Confirmed Attention deficit hyperactivity disorder / SNOMED CT 7785901071 / Confirmed Obesity / ICD-9-CM 278.00 / Possible Obesity complicating , third trimester / SNOMED CT 7843927334 / Confirmed Depression during / SNOMED CT 4388366716 / Confirmed Insomnia / SNOMED CT 372063975 / Confirmed / SNOMED CT 709298266 / Confirmed Supervision of high risk in third trimester / SNOMED CT 84324606 / Confirmed Chronic fatigue syndrome / SNOMED CT 30910125 / Confirmed Resolved: / SNOMED CT 957613546 Resolved: / SNOMED CT 705747520 Canceled: Obesity complicating , first trimester / SNOMED CT 2569198142 Canceled: Obesity complicating , second trimester / SNOMED CT 6070903241 Canceled: Supervision of high risk in first trimester / SNOMED CT 68912669 Canceled: Supervision of high risk in second trimester / SNOMED CT 25689643 Review of Systems Respiratory: Negative. Cardiovascular: Negative. [...] The PCEA was started at 0942. Normal [facility] Comment on above: Result Comment: Elec tronically Signed By: Kevin Haley Jr., DO.rosey\Date and Time Signed: 08/04/20 10:50 EDT UA With Cult Reflexon 2020 Bilirubin Ql (U) Negative Normal Negative [facility] Comment on above: Order Comment: Urina ry Catheter Insertion triggered Urinalysis With Culture Reflex order by discern. Performed By: #### 2 396569, 5171096, [id number] #### [facility] [address] [place] [address] Clarity (U) CLEAR Normal Clear [facility] Comment on above: Order Comment: Urina ry Catheter Insertion triggered Urinalysis With Culture Reflex order by discern. Performed By: #### 2 223576, 1237455, [id number] #### [facility] [address] [place] [address] Color (U) YELLOW Normal Yellow [facility] Comment on above: Order Comment: Urina ry Catheter Insertion triggered Urinalysis With Culture Reflex order by discern. Performed By: #### 2 613591, 7650452, [id number] #### [facility] [address] [place] [address] Crystals LM Ql (Urine sed) Present Normal [facility] Comment on above: Order Comment: Urina ry Catheter Insertion triggered Urinalysis With Culture Reflex order by discern. Performed By: #### 2 967114, 8440181, [id number] #### [facility] [address] [place] [address] Epithelial cells.squamous LM.HPF (Urine sed) [#/Area] 0-2 Normal 0-2 [facility] Comment on above: Order Comment: Urina ry Catheter Insertion triggered Urinalysis With Culture Reflex order by discern. Performed By: #### 2 873855, 4943770, [id number] #### [facility] [address] [place] [address] Glucose Test strip (U) [Mass/Vol] Negative Normal Negative [facility] Comment on above: Order Comment: Urina ry Catheter Insertion triggered Urinalysis With Culture Reflex order by discern. Performed By: #### 2 511186, 0176638, [id number] #### [facility] [address] [place] [address] Hemoglobin Ql (U) TRACE Abnormal Negative [facility] Comment on above: Order Comment: Urina ry Catheter Insertion triggered Urinalysis With Culture Reflex order by discern. Performed By: #### 2 555579, 7895424, [id number] #### [facility] [address] [place] [address] Ketones (U) [Mass/Vol] Negative Normal Negative [facility] Comment on above: Order Comment: Urina ry Catheter Insertion triggered Urinalysis With Culture Reflex order by discern. Performed By: #### 2 253896, 7500182, [id number] #### [facility] [address] [place] [address] Terra Bella.plasma/Terra Bella. RBC (Bld) [Mass ratio] 0-3 Normal 0-3 [facility] Comment on above: Order Comment: Urina ry Catheter Insertion triggered Urinalysis With Culture Reflex order by discern. Performed By: #### 2 745349, 5906697, [id number] #### [facility] [address] [place] [address] Mucus Ql (Urine sed) TRACE Normal [facility] Comment on above: Order Comment: Urina ry Catheter Insertion triggered Urinalysis With Culture Reflex order by discern. Performed By: #### 2 947707, 0473507, [id number] #### [facility] [address] [place] [address] Nitrite Ql (U) Negative Normal Negative [facility] Comment on above: Order Comment: Urina ry Catheter Insertion triggered Urinalysis With Culture Reflex order by discern. Performed By: #### 2 539051, 8372994, [id number] #### [facility] [address] [place] [address] pH (U) 6.0 [pH] Invalid Interpretation Code 5.0-9.0 [facility] Comment on above: Order Comment: Urina ry Catheter Insertion triggered Urinalysis With Culture Reflex order by discern. Performed By: #### 2 430409, 2776596, [id number] #### [facility] [address] [place] [address] Protein (U) [Mass/Vol] Negative Normal Negative [facility] Comment on above: Order Comment: Urina ry Catheter Insertion triggered Urinalysis With Culture Reflex order by discern. Performed By: #### 2 484707, 2966160, [id number] #### [facility] [address] [place] [address] Specific gravity (U) [Rel density] 1.015 Invalid Interpretation Code 1.005-1.030 [facility] Comment on above: Order Comment: Urina ry Catheter Insertion triggered Urinalysis With Culture Reflex order by discern. Performed By: #### 2 558030, 2423760, [id number] #### [facility] [address] [place] [address] Type of Urine collection method Catheter Normal [facility] Comment on above: Order Comment: Urina ry Catheter Insertion triggered Urinalysis With Culture Reflex order by discern. Performed By: #### 2 368365, 3240670, [id number] #### [facility] [address] [place] [address] Urobilinogen Qn (U) 0.2 {Henny'U}/dL Normal 0.0-1.0 [facility] Comment on above: Order Comment: Urina ry Catheter Insertion triggered Urinalysis With Culture Reflex order by discern. Performed By: #### 2 562164, 2413332, [id number] #### [facility] [address] [place] [address] WBC Auto Ql (U) Negative Normal Negative [facility] Comment on above: Order Comment: Urina ry Catheter Insertion triggered Urinalysis With Culture Reflex order by discern. Performed By: #### 2 446302, 9470182, [id number] #### [facility] [address] [place] [address] WBC LM.HPF (Urine sed) [#/Area] 0-5 Normal 0-5 [facility] Comment on above: Order Comment: Urina ry Catheter Insertion triggered Urinalysis With Culture Reflex order by discern. Performed By: #### 2 968501, 3417397, [id number] #### [facility] [address] [place] [address] Vaccinationson 08-04-2020 Vaccinations [id number] 0#1.00CD:127 Normal [facility] Coding Summary.on 08-03-2020 Coding Summary. CD:[id number] Gh0bWw+PGhlYWQ+PE1FV XEiC24hrEVlpF5GA0mIU Q2ZEXZXCCGLJJ2TQH4ed LL4MExrI2NdbiDv UnginARzWK61KDw3PGY1 sSwrYYgdnB9elODtD2x0 GnDhKK59oH47HAseZBRr HqH7WtDoxyodqXEd P6hwHdZufXTjVba+PHRh YmxlIHdpZHRoPScxMDAl YaDrjEwxPB8aGj8jKYMo LWNvbGxhcHNlOiBj w3btUVYnTYjhMW0wjGpi R8CmmCD6LDGim8a8Gn09 dHI+CEPrWNU7kYtiMIfc t306UlHwt7blARV2 kYRtKHwrYEA3A27fk9Y5 UOZgPWTpKQF0lDH3xE9v dTwvdqpxQ1EgqHRoGvB3 MLU0bSYjjR7kjJfm qchxcB5kIfi+J20EKR7R HWGFSJ1MGbu0C5PvKkmp dHI+SV05ZYPtCM24pXYj xLZdq1xzmTk4CzOf VABoPMC4zDrkUXhny9Ps AUYpV48iaMMeo7H6HRZh nChxtOTwIsTflSM6zF4z BYvqrqkhe9jyowwu Mwbqj3kgpc77wY19W02g GOdnHZZyLQP7GMPpFIZh rJqlwk6dzR1mCo9+IDxj g6kau2oydUw0JwWx MDSwyqNwuYnsSUO9f1Lf Vd74M7SqvGsav5EwDso9 xs22hGAib5G6rLZ1NUvj SOTrqP0aEVawRxC6 RDGbQzKrfW60tQPdNXxy Tt1ktCqqvKjgHT0hSPYt icqoHTErqU3tHTQaxSIn vFmeYS1sRRYcaeup r003XsLwWOA3VQXqhWBg D5AdjZ4oErJrXJOyWATt S2FbyPXeJAbwY687BLce HdE2LWSeblQbU8Zu QRUxxGzbHkF2w9P2Xa9T a5QbzfheTVE7NJlmGHP6 KcN7VaUtOuD4W9KjLyh1 GIIzhQfsYT7yZ4Zq FURboekqxnaqaVN4YBKi XSIxdF11hPKnXRcgBp5j f5D7y399NNEsDHZxuP36 Lw1diJniNTBkpZHL bV5erdzlf5cnxcgkCjDt VRShXCg7FOk0KGHjiExb OvMsYOJ1GdY1XUO1eAYc bX4yeAebfyxzyK1p Oyc+X88ffL9jVBP2YRJ8 nachRHJrumRyHX56RC44 W5MoXrlsrOPsgVS+PGRp jySpkSlmXS6kEgRh s3ovu3UfWFhaC4KtJHZy TZdeZho1DOPoQVN6cXZ8 sP9uBRMaQSdhg1S5hZY4 L2UjdqSacn2oj0vx HRLyJApkI56wyKUml1M5 GBYurCY9TUWlgYpcScZa jN62Wjn+BZCprSkbp8Pf Hteiw5hcd3yokAk3 IjMwJSIgdmFsaWduPSJ0 p7XnLz67U34rVMjbVOVv PNYmZCDuBDEuqCiwyy5l eY5eMy2+PGNvbCB3 mLF9jT7sKXThFeH0SRno U243KwYrrEEqIstif2zf e5vrdYc8OdPaUXZiaoTj jQftODZ6j8OdXr43 M89yVTznTXGoKRPcISEe PLCjqXpxaj7znB7iJw7+ OD7ba5qbmy32kZ13wTO+ CYPkEOR8mXigSHzn HXBftB7lQMotDpV9MTCh IgScjW96hRXsCLmwBa8h ySqpmMypPR3zRDHctfhs g268UnFbu7nmBTYx jUWwYUrcHTX6S92vn1W8 ROWpUVZwVKW4sIE3mW2x bGlnbjogbGVmdDsgdmVy jCzsWTbtUKgjH715 IHRvcDsnPlBhdGllbnQg IsEyMJv8X5HrAie9KSEw wWnzLE0hlFCkSUxvFj2t dYlqkHcwSE9vBFOh yxqdb555CfGyf4ptMETl qDEvOBubVAZ6Q28ac3D0 LZEzHYAxXTO9kFM0fX9k bGlnbjogbGVmdDsg zbRkiRjnVWkxXXytW368 IHRvcDsnPkJpcnRoIERh bEN7XO84NG12eSVif7T0 qIB4K2PcDNSjfqvs jzfsiXY4MNIdARRdaM55 Gp0vuRqjQx3rTIDcXAQ6 ETRxkWRvB8GouJ4bDeTl SJSbKDDgM0CldYTr ZMjvM703YOxxVeQ8LWSr eiDdM6YmWRCfkTokOtK0 y5I6Gm9QE2A0YS35HR74 qEDki3N6vSM0J8Tq OISdnexnrbvamPK1YHGh IULswV26Mq8ovPucPs8q CKIqVHX0YHNlcQRcO7Pf kH9iSpGxXADmILHo D3SyiSBaZEhaX981ZMqi GpA9ADKpgwJlU5LpFYBl oDugBbV9a6E1Kv1XBCg3 ZG89MY54nYCtt3U1 cGX9D8LlXQUpvneoxdco zPP7QTHaYUBnpU99Zn2f cJazGf3hBBUvNYZ2TFSe rRRfI8GzrF4qHuMj FYCvNQJqU4FceWKtNLmc C988MYeeNwC8NJPidpJg Z0WuALIlyMnkNbU1z2O9 Cy7ABYPaFD83TMU8 pZH4FK70CR01F8WnIoys dGFibGU+PHRhYmxlIHdp ZHRoPScxMDAlJyBzdHls SK4bYe8jQQCaQKGl dItywDCuCmHep2pcYSNd PTmoMC4kyGawK3AnyDE7 VUUci1p7Hq14F33bX8Lp dXA+FOIptNY1gVW6 oO6bBqYyMkS8OLciM953 JwBpfJIsIvyzn9yya7mo iJg6BmP2WJTxkdRooFpd DAO9q4MdYj57U51w IHdpZHRoPSIxNSUiIHZh xXaqal1xlS8rFz1+PGNv wMA8qFX0fF6mUoYgVjO7 KPutC157IaRogMIj Eoqkm1eyo6zobKv6WpBl WNOkjdZhcGfcIPP3w7Wu Sp44R1JgsJzoa4WhCqm2 sf58rWNpn8L1oBL4 V4ZpOBPojvhffJHuoPpa JD9eYDRomvnhBIFqlP2d OQIrC6q8OaHiXlS6WUxu M7TtrhK8IOAtjSTi FApxCGL3G00md2B0QHKh EQZrLNT8mXL6hB4snImi bjogbGVmdDsgdmVydGlj PEauSZwgB290MLWf tXqvDFOhwY0uYFIacHJr tCvaFR9kXSTivjnzSfWO OnhZBt0uXNGPCsDHE5Tz TDwvdGQ+PHRkIHN0 dShsMDupZKNbqY3yBSAo O5w7CdCiDvN9YWiwJ6Pb SKSgawywGl47lV9jWsJl MnM7NFgxW7ZkkeG1 YSPvmXVmMAypFJY2E14z r3T8SGCbMSHsXPB2oMM1 mB7uvKdlqkkukYBzjNzc dmVydGljYWwtYWxp R086VOZbkLouOhX1CqHz ZaJ9GCO6X2IxOot6UTVd pYtuDE6ayVHxBReqDz1o wJudhFxgLN6qAYTv phiaITXwrF6wGLLdvYOj uAniZW5kWTPjjoqqe501 MxPpWIF5VFRtcVHxO1Zl wI3oQsGqGDGdJQYn A5KbvJJpETkkA936CCvf MgR0OOBcgoSsE6KuEMIu aMgzKnT3q1D4Cn2tEIKJ ZWFyczwvdGQ+PHRk JBO8aNifVEsgZHFczP6s IQEwC9e2KqZzDwS9DTsn R5ZlMSCdfxdtPg27fD0x NcNgDhY8UUvtC0Sk tyK4HQRcmJDiXNhhQXF5 H35wv8N4TFXnEJXrVMD4 uNB4xH6zaMezcuggjCXm dDsgdmVydGljYWwt EIgyO691XJDijFkaQoFk bWFsZTwvdGQ+PHRkIHN0 jQntNJqoFXNpoK8oFGCt A9i2OeBxTuT6YZpl V8AyEGHaxwwpXk97lB2i HdBeOlS3PTkbQ9DdfeF0 PETgbODoHWgyFNE4B47s c0Q4DMQeTHRkJVN8 kSH6mG8flJtjufunwMBz dDsgdmVydGljYWwtYWxp Z396VYMzfLxvQg2JETVg aWFnZTwvdGQ+PC90 al41E0OmWpzbFcr8VXPi BPN3yYB9pY4oJUUqTIba l6P5tHX7A3QvpmBnnf4i s8cqWLRzIIcqX97z lFZkp9G7FQJygGR4IUTb bUbmAqYoiM25Ykx+PGNv oTria5XxQdkqy9dqe9or rUf4AvNbVFMcjwUs mMrrHVG4t8ScNs45V87d IHdpZHRoPSIzMCUiIHZh oNtjfg3taM5cHh6+PGNv dEA8lIK5bL2iGvWr UmY4SQokQ885McSmtTRq Cddhh6xmt6yuoFl9TcKz GBBuiwGmmViaFOV5f8Vc Gi80F7BldHegq8Jo Heu5eh42jQJrv3T4pUR2 D3BgPZFggcqpuTSdzItv RF1xDOYbxsucBOKaxN1k GSJaK8n2RnMxLfB7 EMxoR9MmixM5FKNzuIDm ZUTkjAMOyD9bmikmt4mk uzkwVaJmDCTzGXv5HHt9 LWFsaWduOiBsZWZ0 NhZ6GIQ5aEPgbG1hhDfr ucohjH0tTnb+DZn1z8li rVRlYV9qjBY5UE50FF65 sUXan6J1uQO9U6Dz OLKsufowsnstnCO1DDQc OEXhdM41Me5gsZpiXc5u XJNnUDF5WHHciXNzL9Pd hJ0sYlOwIHJkOPZf F1PbmMPlCNznY352XPzm QyB5DDXkfbIuA4HqSJYa oHwuDuP5d1H2Pd6AWA63 ZH85DL74qUIkf7K6 lZI0M9TtJONnkypxcoky oVS2LWYaNHTzeU49Me2k hWumFs1cMSVnGDW8TEXq lPJrF0DwxY9yUbPe OWTlKNUeI3HcqBRwBSnx N784IZooNnE5ZGFumdCr U1LhLBBnwVgpKtO0w6H9 Tm1SZy78EQ23EN57 aRFyw2B9lTY7K3KqZVNe zfkyuimfqUJ0KFAfVFWs cE15Db4euIhpGx8wYZNm NDU2JJZncMAqI2Gv aW7gWkEcBUYdRHDrM7Fy uPBhZSthZ537KCydZwD9 ZGQokwDdJ9UaKAQodJhp ItQ4k2S1Wk1HJQyf byf5N5YvZwsngJG+PC90 CWZuTC78rBGjbNTfn2op vPp3FuElTTRkERB6bCgx ZSyfk1NhPZCnK17p bGFw (more content not included)... Normal [facility] Ambulatory Clinical Summaryo 08-02-2020 Ambulatory Clinical Summary {[id number]- [id number]}CD:[id number] Normal [facility] Insurance Correspondenceon 0 08-02-2020 Insurance Correspondence [id number] #1.00CD:127 Normal [facility] Insurance Correspondence Off iceon 08-02-2020 Insurance Correspondence Office [id number] 1#1.00CD:127 Normal [facility] Insurance Correspondence Office [id number] 1#1.00CD:127 Normal [facility] Nursing Assessmenton 021 Nursing Assessment [id number] 4#1.00CD:127 Normal [facility] Obstetrics Office/Clinic Not jasmine 08-02-2020 Obstetrics Office/Clinic Note Chief Complaint OB 38w 5d, baby moving, occ. [place], swelling bilat. feet, woke up with Migrain in middle of night Obstetric History History (1,0,0,2) # 1 Baby 1 Outcome Date: 2008 Outcome: Live Outcome or Result: Vaginal Gender: Female Gest Age: 41 weeks Wt: 3232 g [place] [facility] [place] Labor: -- Child's Name: -- Baby's [...] trimester) Ordered: Office Visit Level 4 Est 30371 TH 2. Obesity complicating , third trimester (O99.213: Obesity complicating , third trimester) Ordered: Office Visit Level 4 Est 95533 TH 3. Depression during (O99.340: Other mental disorders complicating , unspecified trimester) Ordered: Office Visit Level 4 Est 39021 TH 4. 38 weeks gestation of (Z3A.38: 38 weeks gestation of ) Ordered: Office Visit Level 4 Est 51762 TH Follow-up With When Contact Information Funmilayo ESCOBEDO MD In [address] [place] [address]- Additional Instructions: Problem List/Past Medical History Ongoing Attention deficit hyperactivity disorder Chronic fatigue syndrome Depression during Insomnia Obesity complicating , third trimester Ovarian cyst Supervision of high risk in third trimester Historical Medications Multivitamins, 1 tab(s), Oral, Daily Allergies No Known Allergies Social History Alcohol - Denies Alcohol Use, 11/21/2009 DENIES, 04/14/2020 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 2019 [employer] Normal [facility] Discharge Instructionson Discharge Instructions [id number] #1.00CD:127 Normal [facility] Inpatient Clinical Summaryon 07-31-2020 Inpatient Clinical Summary [address] [address] Clinical Summary Person Information Name: MYA MYLES [facility] Age: 30 Years : 1990 Sex: Female PCP: Chao Blackwell III, DO Marital Status: Single Race: White Ethnicity: Non- or Language: Colombian Visit Id: Visit Reason: Speciality: Acuity: Obs Enc Type: OB Triage Med Service: Obstetrics Arrival: 07/30/2020 21:16:34 Discharge: 07/30/2020 22:58:00 Dispo Type: Home (Routine PR) Address: [address] [place] [address] [address] [place] [id number] Provider Notes: Diagnosis: Problems Active Insomnia Chronic [...] up: With: Address: When: Funmilayo ESCOBEDO [address] [place], [place] [id number] Business (1) In 3 days 08/02/2020 Comments: [...] 9:15 AM Confirmed Patient Education Information: Normal [facility] Inpatient Patient Summaryon 07-31-2020 Inpatient Patient Summary [address] [address] Patient Discharge Instructions PERSON INFORMATION [...] up: With: Address: When: Funmilayo ESCOBEDO [address] [facility] [place] [address] Business (1) In 3 days 08/02/2020 Comments: [...] Leaflets: You may receive a survey from [employer] asking you to rate your care experience. Your feedback is important and will help us understand what we do well and how we can improve the quality of care we provide to you, your loved ones and our community. It?s an honor to serve you. Thank you for choosing [facility] Consent for Treatmenton 07-19 Consent for Treatment [phone] [id number] 0#1.00CD:127 [facility] Consent for Treatment [id number] 8#1.00CD:127 [facility] Insurance Correspondenceon 0 07-29-2020 Insurance Correspondence [phone] [id number] 41#1.00CD:127 [facility] Insurance Correspondence Off iceon 07-29-2020 Insurance Correspondence Office [id number] 5#1.00CD:127 [facility] Nursing Assessmenton 021 Nursing Assessment [id number] 1#1.00CD:127 [facility] Ambulatory Clinical Summaryo n 07-28-2020 Ambulatory Clinical Summary {[id number]}CD:[id number] [facility] Obstetrics Office/Clinic Not jasmine 07-28-2020 Obstetrics Office/Clinic Note Chief Complaint OB visit 38 weeks . Obstetric History History (1,0,0,2) # 1 Baby 1 Outcome Date: 2008 Outcome: Live Outcome or Result: Vaginal Gender: Female Gest Age: 41 weeks Wt: 3232 g [place] [facility] [place] Labor: -- Child's Name: -- Baby's [...] trimester) Ordered: Office Visit Level 3 Est 37100 TH 2. Supervision of high risk in third trimester (O09.93: Supervision of high risk , unspecified, third trimester) Follow up in 1 wk. Ordered: Office Visit Level 3 Est 25982 TH 3. 38 weeks gestation of (Z3A.38: 38 weeks gestation of ) Ordered: Office Visit Level 3 Est 99539 TH Follow-up With When Contact Information [facility] In [address] [place] [address]- Additional Instructions: Problem List/Past Medical History Ongoing Attention deficit hyperactivity disorder Chronic fatigue syndrome Depression during Insomnia Obesity complicating , third trimester Ovarian cyst Supervision of high risk in third trimester Historical Medications Multivitamins, 1 tab(s), Oral, Daily Allergies No Known Allergies Social History Alcohol - Denies Alcohol Use, 11/21/2009 DENIES, 04/14/2020 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 ? 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 Rectal thermometer. ? [...] 01/17/2009 Document Revised: 01/17/2018 Document Reviewed: 12/25/2017 [employer] Patient Education ? 2019 [employer]. [facility] Coding Summary.on 07-27-2020 Coding Summary. CD:[id number] Gh0bWw+PGhlYWQ+PE1FV SCgU57irZJwyK6WP5kXQ Z7KSTACYGIOJR7GOU4bf HF9JHxoS4DcrqRp UhrzrQBfRS01WGt2AEP6 zQjeYHgzqM4sxCGvC4i9 AgBdKU13wK08GIpyPPWc RrE4DiLahvlhuOZu K2ybViUakWAwEkr+PHRh YmxlIHdpZHRoPScxMDAl JuLoeEcaVV1kOv2sJUNz LWNvbGxhcHNlOiBj u1gdGEOySLdgIP1zcCmx T4XejCU0JMGzr7z2Dd36 dHI+VUBbTEJ3uWheWVci f228KzRud1ouISG8 lPDkYMovDVR1U08jw5I2 XICzLMTaGTN9aWR9vG3s xXzxzuxdS9JuzOWeAuY4 RIN3aMHenR3knIbm xvgctP1bYcu+V27DQS6K FEFKPT8KBxz3A6OkTaij dHI+BD34LAUbEO32vLNr pSKot1hwiOe1FvCg MCHiGQP3lJbpNNvzs1Iw OSElQ89weSUbo7S6CQKw fOhzgRTlOxNdcXT1aK8w FBgtpivwe3cbeyil Usbdc7zgqb19nB05C69r JXhxHBZhWKQ5XISoGDYl nGwrgu9ihK4yCl1+IDxj p2vhz7etsHk9PzSe TQVikmDyrAboSFO1u7Gg Re79Q5AlzHovx5ZhWtx3 zu43rDTxc3U2wXV3VCjf FXGlxM4jGMfkNcM5 GONrFrLyzS29jBUgUMth Mf2nzBwrpJbwAV1sQOXz jbskAMXklI0hGOXmzVZg uAjoCE4yZWLzrmnx e890PsMfBWI6CGQejXLx Q7NgkQ1nUwBoOQVqUXLz J3DslGIqDWztP479EGfj QjS0ARVyziRiW7Fl SEYijAbaHlJ5a7J5Od6I u9DtovqkRJP3KGxhYHN2 XxT0KeCfJeX7V5AhKdw2 TVUjxQtzIE4lP7Hv NWQerzvifcfosZJ6CMYy BEKviL07aFNmSUpmFt6g m6A4m995WJVkLUFewJ31 Sh9xbIzlKOOtuFYI zF2fwykfk5mbexmrJmQe IVRaWWb9GKr7HDQhrWgj KhWbARH9SdF8LWU8rYDz sC8jjWahczgzpW8w Oyc+R79jsT0yTWM2QDT8 xliiEASbwcWwGB38PF15 A0CbKobdtSVxlPO+PGRp rkJavEezUX0wRzIu f4zox7OnPRemC5IwLRYe ZEjzHmh2GWCeGPS6sLW0 uJ8dVDSpNEupn2F2tTH5 U4TjypGsaw7fr9gh XAQqYShaI23cgTLxf3P4 ZUTbvYU2ZEBttEmzInUo qV54Bvy+LPDuaHigb4Mg Huhue1ist2jtyTd2 IjMwJSIgdmFsaWduPSJ0 f0YfHb65D71iYXcvVQJo LLAhTMIiAGBpzTwqxw8f mK9qLr9+PGNvbCB3 nAQ3hD4fZYTcWnR9AKik A467MvVmwCHuNsgfq6ab o1wquKn6VuVfNEUirxDb wLouDNJ8i2GnZg75 D38fPZhjOHUwYFZrUDKn DYJzaSfoee7faH5wGt3+ GA1dy1fccg84oR09hGI+ QXQnGSW2kSiqGTcb ETZpyD6dYKjgXeH7EFKp HgYbfL53wPOnDPltEw3a qApzaBveNV6yJGZezpbl h673ItWzs6qvZKPz iELvDIwdXGW6G63af4V5 LWCnFNGrIIB3dKV7kL4y bGlnbjogbGVmdDsgdmVy nQgiDWekXBnmG922 IHRvcDsnPlBhdGllbnQg GcAaIEy7U0DyPbr0VQEo gNmbTI2jwNUoXAhzAz7e uNckgBivWT7iDDVt yjsub097SwNxl2cwWFYg oUIbHXaqKJQ6X36yp4S6 DGZoTSRzNAT7pNY5nZ0o bGlnbjogbGVmdDsg trVkbFjvXObwPRldE759 IHRvcDsnPkJpcnRoIERh mZM9GV99IV33wJRgn2P5 yVQ3T0KbLRXvbcyu rcvpiXD3NYKxMJDucA89 Vf8jsSuoTy7zVMWaJOL7 JPGvzKWbT3SgqC9jSpWq IWZdIWJiG2ZxiKGa OBxxM376EVzbKaK7ICFk adOcI3WcEONaxJcoLvJ3 h2H0Ni5PD9I1VN65WG54 aRLyf0J7lQU3M4Fu IUFmltzfoioljOF8GJLi UVThpW10Mu0dnGflVq1b QBUvCKF5UKYvxZCpC2St eS8sLtMjOHDuXCXn Z9JrxPPiMJrdF979OTzu AaO9NTLyhvVxX0LdCBXq eRvkKjP7q5Q5Nl1MMDj1 LO39EZ04wURry5E4 vKZ5H7EjHBBdowyjbymx nNE9LNDiZRSusR95Bd4e bZrbVv0kCSUpDWJ4YLAv lSPuA0MgsF2gPrNa CUBcJEJeU3GwrGCsISvb D977QNufKaE5UTZdklWw L8YcSZImkInyOlQ0k0K7 Pq3HGYTnRP41PKH0 iMZ8TH27KC25H4IfHkhv dGFibGU+PHRhYmxlIHdp ZHRoPScxMDAlJyBzdHls PT9qHh7eJJUbRDOk wDydgKZoRoJjz2neAMQz WKojLD4smZwbL6MemYM5 VNLte5q6Sn18O30fU6Gg dXA+RSBlxGZ4kJG2 iT3zSaBcZkY3IYrbP840 EdVveQTnGkkmz1tru7qz gZa9AgH8XLDaqyKxzTfq YZL7h6DwEq76W69f IHdpZHRoPSIxNSUiIHZh kMuawv7ttF3aNk2+PGNv uJN1aQL3aC2mDjOtFoY5 BSrxI300RjNbtLNl Oomgf2ofa6bugLj6WrLg BRMbnoXqmYmrKRV9o5Mm Oo38Z6KhoTalm1FqJnk9 pe27uBRjw8N0eNN3 S0KrTOHuuyuxrABnrQjq FU1fFVIctrkjNBHwtU2u YKWyK2h8ElIiJdL5YQab D2ZovyM9MSQpjIPx XCysSCA2H75df0U5HPUt WFMjDIP3eFO9zG2smGeq bjogbGVmdDsgdmVydGlj FThiXCsoS080YOXt hSviLCYtoY3bJKZyiVNc lEjdMZ3qOJGzpamhCkYY BnkGFc5sUJXHHfSPW1Jv TDwvdGQ+PHRkIHN0 jHbwQXsbMXEjyU2sCUNb Z2s4TsJtCfN6SLcjE2Tk EDSleqemZp52fW7kZmYz JyN6ENdfJ2CyanU2 UOUtkNMsACocZBI8K04q t6Q2XNOyXBBjGCR8fTW0 xL8evAuyqvrkuFWtqCsg dmVydGljYWwtYWxp A250QJVdhWqeWkR1AiRl DgB7SPN8G7GoMeb7CXDv bPebQM4qnGSaQUzcUl2m fLbgtNgwGR1iWBFy cdhrLRLgrQ2xYZCodGHa qUttAB9hSUEvumlio016 ZzTwUDH3XGDdhYAwT2Wt sP6kXxEaHBYrKOBq Y5ScdVAkASzgU517JYgw NiO7RPQaduUxA5ThDBVg ySjrScV6p8X9Dr1vYHYK ZWFyczwvdGQ+PHRk HPW2gBooKQxyVBQhbZ9s QHHeP4l4AsTlNoP3WBkg I0FhITRpvwoqYv96cT9d DjFwUmC6CAwjJ1Jp saR2LVAngABzQRezCYT0 R08sv5O3VCBvNNMmCAN7 vKA5hZ3phWjqtakljKBp dDsgdmVydGljYWwt TIypT798CUSauOyxTcUj bWFsZTwvdGQ+PHRkIHN0 oXilVZjdHDXpoH3rAKBp L0y4CqNnTqF8HCpj J4SbHJEitiueMl60yW8u TkPnRdT0HXbbV9ZvihT7 GGDxcJJoRLivANK1H75c h0U1JKCiYKYkIGH1 nCD5fG7exJqbrobnmGDx dDsgdmVydGljYWwtYWxp S396SLPpiVnxFc0WMMVr aWFnZTwvdGQ+PC90 kj47N8SjTudaNtf7HXWl ZDN9pLK2aZ7xKOJeHBgz o6V2gBM4T6YwhnEjyg9p q0cnDFFtMBswC45r yRRbz4J1TUSjqRO5HXAo uVqdZaZrjP15Znf+PGNv rMvas2ThIpkni4wya1is fOl7EkPfKSVnvaPb qLvlPYJ3t9RnIt71R46q IHdpZHRoPSIzMCUiIHZh bWzlym7jdN9kFr1+PGNv dDZ3yDJ4tG9kMpRy XaK1NClsV360TlFfwIPj Pzrry3noh0huuKl0DaMq HSEolpTzoYpbDEE2t6Li Nw30S7SnuYzdy6Ei Pkg0os38kFItc4M2uLI4 E9NzQHMxedstwQKlyTqm SI9zJOBnnpqbPRJcnJ5q PJCoB4k4DtIhOfV5 SCrtY3RvrdS1XRFbvHDi XFBelCHZhS9jzxxop8al plgrPwOaWGIdZNx0KCg5 LWFsaWduOiBsZWZ0 XgE9AKB3fYJcnS2eoBep xstgaS1hGdx+GUi1q8cb zSJtOY4pvSU7AE02DH50 pGRte7A3wZX0L0Uc QTFkhenkhxknzPZ4SQVy ASDcbG16Jj7ruGuiWw0p FRAbPQP3OQVygQQmF2Ks kG8xNsRkPAQfCJVe G1PceNIiUIdoW510OOvu XfP4PQQkwtTeS4HfWNSe xKixLnH3v4E3Vd9YQX00 OR08MJ99kFCvu4G8 xZK5B4CxQQQsuubjpjgg fST0SRWpZUTrnC89Em1o qQyyIn8fCSDyCZQ5OCMl xINmK5IseN2rDiSh URNnFGSmW1XmiYIfZTkb S790KAwqEhD9QJPuybWj L6LjBYXvzJitBnX5z1J9 Tl5SOc85DQ90RV89 kKBkc4S3kAW6N1GfYGYj vtctsxlbyYY7DVPaFDFo dB87Iy6biNygMu0gWRZv RSU0KWLdeSGoN9Zi gL3hXiDbPOWhYNLuI2Rh iGOzXPlfJ657TKkyDgP6 GEOugkIsN8YyIYHdbDnr EmK0a3G7Un1LGZoa ihe4B9SaXdeitXL+PC90 OABxOP19nWNkuUQqy1zx bKw1UbTjSRUuFXF1eTxq MZwtg5VzOJEmW15s bGFw (more content not included)... Normal [facility] Consent for Treatmenton Consent for Treatment [id number] #1.00CD:127 [facility] Discharge Instructionson Discharge Instructions [id number] 75#1.00CD:127 [facility] Comment on above: Other Comment: incco rrect title Discharge Instructions [id number] 67#1.00CD:127 Normal [facility] Inpatient Clinical Summaryon 07-26-2020 Inpatient Clinical Summary [address] [address] Clinical Summary Person Information Name: MYA MYLES Abdulaziz [place] Age: 30 Years : 1990 Sex: Female PCP: Rishi GUTIÉRREZ DO, Chao Maria Marital Status: Single Race: White Ethnicity: Non- or Language: Colombian Visit Id: Visit Reason: CONTRACTIONS Speciality: Acuity: Enc Type: OB Triage Med Service: Obstetrics Arrival: 07/26/2020 14:59:40 Discharge: 07/26/2020 16:40:00 Dispo Type: Home (Routine DC) Address: [address] [place] [address] [address] [place] [place] [id number] Provider Notes: Diagnosis: Problems Active Insomnia Chronic [...] Follow up: With: Address: When: [place] [address] [facility] (1) Within 1 week Comments: Call for any problems. Call for fever > 100.5 F Return for contractions closer, longer, and harder Return for decreased movement Return if ruptured membranes or vaginal bleeding Type Location Start Finish State [facility] 07/27/2020 2:45 PM 07/27/2020 3:00 PM Confirmed [facility] 08/02/2020 4:30 PM 08/02/2020 4:45 PM Confirmed [facility] 09/15/2020 9:00 AM 09/15/2020 9:15 AM Confirmed Patient Education Information: Normal [facility] Inpatient Patient Summaryon 07-26-2020 Inpatient Patient Summary [address] [address] Patient Discharge Instructions PERSON INFORMATION [...] Follow up: With: Address: When: [place] [address] [employer] [facility] [employer] (1) Within 1 week Comments: Call for any problems. Call for fever > 100.5 F Return for contractions closer, longer, and harder Return for decreased movement Return if ruptured membranes or vaginal bleeding In the event that this physician does not participate in your insurance network, please consult with your insurance company to find a nearby participating provider. Type Location Start Finish State NAVEED JOHNSON Sae[facility] 07/27/2020 2:45 PM 07/27/2020 3:00 PM Confirmed SOV [facility] 08/02/2020 4:30 PM 08/02/2020 4:45 PM Confirmed [facility] 09/15/2020 9:00 AM 09/15/2020 9:15 [...] to serve you. Thank you for choosing [facility] Normal [facility] UA With Cult Reflexon 2020 Bacteria LM Ql (Urine sed) TRACE Normal Trace [facility] Comment on above: Performed By: #### 2 167675, [id number], [id number] #### [facility] [address] [place] [address] Bilirubin Ql (U) Negative Normal Negative [facility] Comment on above: Performed By: #### 2 124847, 7792714, [id number] #### [facility] [address] [place] [address] Clarity (U) CLEAR Normal Clear [facility] Comment on above: Performed By: #### 2 826685, 1711066, [id number] #### [facility] [address] [place] [address] Color (U) YELLOW Normal Yellow [facility] Comment on above: Performed By: #### 2 727712, 0776473, [id number] #### [facility] [address] [place] [address] Epithelial cells.squamous LM.HPF (Urine sed) [#/Area] 5-8 Normal 0-2 [facility] Comment on above: Performed By: #### 2 756516, 1022563, [id number] #### [facility] [address] [place] [address] Glucose Test strip (U) [Mass/Vol] Negative Normal Negative [facility] Comment on above: Performed By: #### 2 230493, 5208565, [id number] #### [facility] [address] [place] [address] Hemoglobin Ql (U) TRACE Abnormal Negative [facility] Comment on above: Performed By: #### 2 348583, 5903876, [id number] #### [facility] [address] [place] [address] Ketones (U) [Mass/Vol] TRACE Abnormal Negative [facility] Comment on above: Performed By: #### 2 478641, 2068570, [id number] #### [facility] [address] [place] [address] Terra Bella.plasma/Terra Bella. RBC (Bld) [Mass ratio] 0-3 Normal 0-3 [facility] Comment on above: Performed By: #### 2 682272, 5116467, [id number] #### [facility] [address] [place] [address] Nitrite Ql (U) Negative Normal Negative [facility] Comment on above: Performed By: #### 2 401209, 0494037, [id number] #### [facility] [address] [place] [address] pH (U) 6.0 [pH] Invalid Interpretation Code 5.0-9.0 [facility] Comment on above: Performed By: #### 2 033578, 1855633, [id number] #### [facility] [address] [place] [address] Protein (U) [Mass/Vol] Negative Normal Negative [facility] Comment on above: Performed By: #### 2 710546, 6773815, [id number] #### [facility] [address] [place] [address] Specific gravity (U) [Rel density] 1.020 Invalid Interpretation Code 1.005-1.030 [facility] Comment on above: Performed By: #### 2 837633, 4910615, [id number] #### [facility] [address] [place] [address] Type of Urine collection method Clean Catch Normal [facility] Comment on above: Performed By: #### 2 846873, 6807614, [id number] #### [facility] [address] [place] [address] Urobilinogen Qn (U) 0.2 {Henny'U}/dL Normal 0.0-1.0 [facility] Comment on above: Performed By: #### 2 914982, 6648450, [id number] #### [facility] [address] [place] [address] WBC Auto Ql (U) TRACE Abnormal Negative [facility] Comment on above: Performed By: #### 2 960925, 9131200, [id number] #### [facility] [address] [place] [address] WBC LM.HPF (Urine sed) [#/Area] 0-5 Normal 0-5 [facility] Comment on above: Performed By: #### 2 215961, 8023805, [id number] #### [facility] [address] [place] [address] Yeast LM Ql (Urine sed) TRACE Normal F [facility] Comment on above: Performed By: #### 2 055050, 2943018, [id number] #### [facility] [address] [place] [address] [place]enton 07-22-2020 Consent [id number] #1.00CD:127 Normal [facility] Consent for Procedure/Surger yon 07-22-2020 Consent for Procedure/Surgery [id number] #1.00CD:127 Normal [facility] US Follow Upon US Follow Up [...] Positioning Vertex Amniotic Fluid Volume Normal Normal [facility] Ambulatory Clinical Summaryo n 07-21-2020 Ambulatory Clinical Summary {[id number]}CD:[id number] Normal [facility] Ambulatory Clinical Summary {[id number]}CD:825948 Normal [facility] Obstetrics Office/Clinic Not jasmine 07-21-2020 Obstetrics Office/Clinic Note Chief Complaint OB 37w, baby moving, swelling fingers and feet goes down with rest and elevating them Obstetric History History (1,0,0,2) # 1 Baby 1 Outcome Date: 2008 Outcome: Live Outcome or Result: Vaginal Gender: Female Gest Age: 41 weeks Wt: 3232 g [place] [facility] Labor: -- Child's Name: -- Baby's [...] trimester) Ordered: Office Visit Level 4 Est 24080 2. Obesity complicating , third trimester (O99.213: Obesity complicating , third trimester) Ordered: Office Visit Level 4 Est 32397 3. Depression during (O99.340: Other mental disorders complicating , unspecified trimester) Ordered: Office Visit Level 4 Est 59664 4. 37 weeks gestation of (Z3A.37: 37 weeks gestation of ) Ordered: Office Visit Level 4 Est 74734 Orders: metronidazole, 500 mg = 1 tab(s), Oral, q12hr, X 7 day(s), # 14 tab(s), Refills(s) 0, Pharmacy: [facility] #[id number], 158, cm, 07/07/20 20:05:00 EDT, Height/Length Dosing, 88.3, kg, 07/14/20 16:41:00 EDT, Weight Dosing Follow-up With When Contact Information Funmilayo ESCOBEDO MD In [address] [place] [address]- Additional Instructions: Problem List/Past Medical [...] Protein Urine Dipstick: Negative (07/21/20 16:41:00) Normal [facility] Comment on above: Result Comment: Elec [...] Reviewed: 07/07/2019 Else[employer] Patient Education ? 2019 [employer] [facility] Provider Letteron 07-21-2020 Provider Letter July 21, 2020 To Whom It May Concern, Mya Myles is scheduled to be induced on 08/04/20. [facility] [address] [place] [id number] [facility] Ambulatory Clinical Summaryo n 07-14-2020 Ambulatory Clinical Summary {[id number]}CD:520359 [facility] Obstetrics Office/Clinic Not jasmine 07-14-2020 [...] Age: 41 weeks Wt: 3232 g Hospital: [facility] Labor: -- Child's Name: -- Baby's [...] Test Q0114 Office Visit Level 4 Est 48929 NC 2. Obesity complicating , third trimester (O99.213: Obesity complicating , third trimester) Ordered: Fern Test Q0114 Office Visit Level 4 Est 24073 NC 3. Depression during (O99.340: Other mental disorders complicating , unspecified trimester) Ordered: Fern Test Q0114 Office Visit Level 4 Est 82623 NC 4. 36 weeks gestation of (Z3A.36: 36 weeks gestation of ) Ordered: Fern Test Q0114 Office Visit Level 4 Est 11880 NC 5. Bacterial vaginosis (N76.0: Acute vaginitis) Ordered: Fern Test Q0114 Office Visit Level 4 Est 37132 NC Orders: metronidazole, 500 mg = 1 tab(s), Oral, q12hr, X 7 day(s), # 14 tab(s), Refills(s) 0, Pharmacy: [facility] #[id number], 158, cm, 07/07/20 20:05:00 EDT, Height/Length Dosing, 88.3, kg, 07/14/20 16:41:00 EDT, Weight Dosing Follow-up With When Contact Information Funmilayo ESCOBEDO MD In 1 week [address] [place] [address]- Additional Instructions: Funmilyao ESCOBEDO MD In 1 week [address] [place] [address]- Additional Instructions: Problem List/Past Medical [...] type 2: (more content not included)... Normal [facility] Comment on above: Result Comment: Elec tronically Signed By: LAURA MACEDO, Funmilayo Garner.rosey\Date and Time Signed: 07/14/20 17:27 EDT Patient [...] 05/13/2008 Document Revised: 07/07/2019 Document Reviewed: 07/07/2019 [employer] Patient Education ? 2020 [employer] [facility] Coding Summary.on 07-12-2020 Coding Summary. CD:[id number] Gh0bWw+PGhlYWQ+PE1FV UMmQ94xkJHqtA4QQ8nFF R0TUDXTRQUZHJ3WPP7yy BK4DXcuG3CrxgJd TwdvvOLdBD39RDm2CBH3 cZxhFBmvjW3vsXGgE2a7 EeAmTE23aJ59XQcqMNHu PsL5RnOhyyuwrSDs K4viLmJxsUPtOsy+PHRh YmxlIHdpZHRoPScxMDAl BkWgfRezOD0oZh7vVTDt LWNvbGxhcHNlOiBj b3ouFFDsDMplRO3mvFiw F1JpfHA1BIKdx3m4Xg16 dHI+ZFYuIAS3hUabCYnz h692BhPrv2dnUVQ5 oBNxNVcyBWW6U62xr2G4 OJByYAWkSAQ4fMW2cO4o yJifeldvK7FrfBOhArM5 KIF4iVYbvK4hwBgp gyesnY5mJtr+R46ECU2I EAZXCB4IWep3I1LcQxwv dHI+QG14DRBnLG84mZXd hHKyp7jlfRy5WeGj KVXrLQO7qZchIKpso1Xe LBIkR51nlIAsl9F9YMYq xOrsoSXoWvQuiLU3sA6s TTbdhqpcc1ohjfjt Beghh4viyr43qV40U87d BFabQWShNXI2LSIzQXHz vKqmgh1lpU6cOq1+IDxj e4khk7hgrYe8EzHz ANZqbpUjkFtlUHT8s9Hj Bf93F1KavAobg0WmFrs6 jz04qPHyu5A7iZM3BGnf WPIphK8aSQjnYnG5 EMKhQyFfcB36hNOeFYfb Gx2crMkxuGmkPO9tMVGr zdhlBTMzxW2tEWJprEMu xJsiGF5lIGTkfjyt x241HmHaBGB7EHWznTCh F2UmzZ2oTiWkSTAcWAYu R6QpqAGtKEtdQ570ARmp PwC2YRCmonWwE9Vj WCJcwNnlCzO7h8Q0Uc1P j4KqawgaAAL3CFavZNS2 NjE1CvHmZkS6K7UxEni7 ZJSnyTgpYU3aU9Fi MQUcgobbsfegrPA6GOGs DTKlnM02qMHfYMbxQw1a o7P7q941ZUTuZWDdtE16 Of8xcPpoQDYsiZPJ sB4pbljif2ryjwjyDoRw AFTzHSl3NSc0PGOowFaz RxRrLOH3QrY3CAQ7eSFr nU5tvHzughuejU2v Oyc+I23fiB6zRWS0OYY5 ulqbQUBqkwUoUG59BJ99 Y4YjSvyjzWNbiKQ+PGRp tgTevBniVF2fHxYz v1ghy5ApJOsoG5YiPMVp ILhoNtj8LTWkZHM2wKI0 mV4lGKKeANqkc7Q3rLF4 L4YxbeNtlj4si3zg ZEFnHAsyI78vvOQqf5T2 RYAttTK5JRYyrJkaYgWh xS18Uhh+NFVtaEpre4Qs Xymcq0grp6htdZl9 IjMwJSIgdmFsaWduPSJ0 f6OkUu47A71eKIagZYUq LFXqJDQiJCBwbUujlb7l kE3uBq6+PGNvbCB3 yPN6rA3qVVPxFpZ2VOkz N802CtQeuHJoUjmki2gg n3bgtUo3IyXzMUWgbsNb dGkrVUK2f9TdMx35 F46fDSjnRUZtLCGnNCYd FTHtbQzeob9ipX7pJe6+ MP3lj2apue31mK56eSS+ CIBiWRL8sPvdJBlo KQLmtT8lUKnbBeP6FHXd AkNeoC79fFOlIXgcQz0e jHybrZcoAB0lJUYhnbyf o866TxMbu7mpBHWl uDNqENbnUVV5Z42or6J8 VIXnKHYqBLJ1tNL7oA1c bGlnbjogbGVmdDsgdmVy yCsvGZldNPylY719 IHRvcDsnPlBhdGllbnQg LkHoKRi7T9VkMpc4WLAm hOoeID3stEAaCWtwEm2t jAyziWydUG8dFMQc wyype580IgYbd3osKIXr cQKtKLfvMBL1N39bh1V9 YVJhXDXoREY7dFQ2pZ5e bGlnbjogbGVmdDsg rqZgnToiTIebLDsbK209 IHRvcDsnPkJpcnRoIERh fYH1NA59PG44rPNil1F5 gFO8N9RuSPUmopdk ucfmpBK3XTZaOKZouV38 Wo0xeOxeFf5vTXMaFOY0 XQQyxBSxP2MbkB0aDuGn SDPeKJFeX5LyfQBr BSsmK153LPtbHnD8ITNx uxPrI0KhDEUhfSvuYcE0 w8Z3Ci4JJ5I8NK95UX89 zZIew2C2eRX6V5Qm MEDmrvyojxtvbOW8ZYPo OZBjkR78Rv3tuUgsJl3j HVZtOFL2LQGnoGCnW8Gl aN3uUmSfMQToOQGv P4UmrWNkSAfwD782GFsq ElZ0DFEttmRiU6CkNDDr cOkqMoR7l6W4Mu4TVEe2 SF41YR82kYAha3Z2 xVS9C8LjEIXdmuqhzpyp jBA2IMYoOFDxzN57Ux7d aXubJc5qZQCxRJC9MQYz qERtD4FhpC6kXoIf JRZwEBBoU9AzbZTzMXkz R330JZbvMnL0PIIyxmKt V0PjVSBuuWdaWdF2f0R1 Xp4JSXPgPZ20IUP9 sYP4XR82CO51Y3YxEolm dGFibGU+PHRhYmxlIHdp ZHRoPScxMDAlJyBzdHls RO1pId0tRPFdUZOz vCbxsCRyVlYyl5gcBGXd SHzyVD5wzPabT8KxxSO3 ZWIjc3b9Ie59S24hW7Nj dXA+CMYhiKF9bCW6 mE5kNjIrOwW9ICpiB337 FhGnxJDuJtlxm2yoz5tr tDn2UgO5JSKgztRpzZbo WGO8b9VhTo70U15j IHdpZHRoPSIxNSUiIHZh wMgvvc7zwI9mCn5+PGNv aHX3tAZ1vZ0jAlDvNqY9 GJgwA991JuSreDUq Aehsv8awo1uuiVv3QnLs GVIjrgSeuLuaDEW6g9Ez Fh64T3IqdHuzl9LgNde1 pd30qCRam9B5xGU2 D9FjBCQjyrbghRHazDzz GJ1oGAEicmwnCJQjyT3q IDJmT3o8DdAkRrD4KDvx U3LldhF7QVOhvVEf PVlsBXE7F08vw5H9JRAs UZBlPXT1mFY5vL3llWuv bjogbGVmdDsgdmVydGlj VResFYjgB148PNGy mTtkXATprK9pGUHroPEg qAthLW9nWUMzwbmwGdYO KdgJJb7jQVQHLgRFM2Hy TDwvdGQ+PHRkIHN0 jIcnVOdvDLBsuT7bTMYe S5l7SaPfBeB9OBpwO6Sa FYDeynjuJs89rT8bZuCa PoK6DRmpW0ZrnlN9 LHKzkQXuGIsrHOQ3H11u a0E3DQYcIUCrNEC8eXX0 jR4kcDnlffghaWYiqOlh dmVydGljYWwtYWxp K559WXSjpZjtZgE3NkQp LgD7PHJ7G2KmNju1CVHz hHixCJ8sxXNvHJifZj0f mNtdbCjuAK2mKHIe wryeJAHijA4rOCIyyHWh cZfiVM7cJMFalbvvs737 WfNcRQA4YICpnPIpP8Hp xT8zZnEaLSWnXVAa J8ZyxGYmPRynK638XDju CrE7TWSedsXqD8NkDDDw qOgjHjB4k8M1Sk8nEBAJ ZWFyczwvdGQ+PHRk PKS1eBegZHeaRPMjgY1v HQXqS7s3DmQtRvR6VRxx W9TzXWQyjmkgIb94tK2i JqTaEvM4ULxiV6Xl afP4NXJseOSbMFvtZPE7 S77qa6Z3QOWtXQEhOTG7 rGL2pX8drWldggyoeUOf dDsgdmVydGljYWwt FCoyI304TZOgrZnhIeEk bWFsZTwvdGQ+PHRkIHN0 lGzbHBrnCLYstA5lQURk V5a3ZgKzEbT1FEko G6PnYVZldruwYu68aT4e WoPuHbX3IFieL4SchnO4 ZVTmmCOlZIsrLDI7H99c v0W4XLIbORWrSMS9 hNW7tQ9peOjqpokvcXYw dDsgdmVydGljYWwtYWxp X565IYBzuUsoKi6COESd aWFnZTwvdGQ+PC90 xd72O0HqLpavBng0NVNx UGC2gBF1oJ4cFVYqUNgt f5W9cMQ9Z7KxklXnvx9k c5mcJMQxJElgK19u fODkv8C1ZJAgeQF4WDMr bHkdNnRjiL04San+PGNv bKrbm5SpVqzkr0qee9di hXn6YfWbNOSrknMa cKwjKFB9k4VhZt06O93b IHdpZHRoPSIzMCUiIHZh dUjbue3fjL7iMp4+PGNv sWH2pAR3kI6lCdRy JaL4BUdfR007EcSutRXs Xmvtv2ojt1zsrZz9FwYk BABphnVoeOsqRPB6g1Wk Qa70Q3ZxlXucj3Cc Awv9im61zQBsk6G4iTI1 B7FmCPTeavgbpZJqaCiw HC6iMBLyajgdZTYdyW3h VCRqU7o2HpVtTwK2 YLhqT0SbhtQ0PQRltWVn TWVggVZVfW7jxaies0ee xqnyKjAsBSQhDZw6BCl3 LWFsaWduOiBsZWZ0 XqV0YZC9qUAfjH9nxZkl dcezvV7cHpd+AQn8r4vt nNPuMJ1uhQM0VH08MP17 iAWml0H6oMN8G8Pz TCUxdahofwuqoVK5KDYs FAEzxQ39Pf6riOfaLt1j BDGnLUE6XNEvyDUbX1Ga cI5vGfTfOPUiNDXc K4RtuGMuMWeeJ943MRky WsH3SEZoaaOlO6QpYSKn fSzuTbV0m9W6We1FPO36 KR35FN71bMJzg6B8 sIH4Y9AcWXXiyedtabfz fFX5JCEdGIRchB40Nf8h nUwnVo9pAKXtHYM3RSYb mEPfE8RzpT1hZaMl OXKxDLFxY7JkyBMfSNcy Q510XWqyUfS6EYMzmtOt U8OtYSYwqGvfXtF3q7K2 Lq8QKq00SX64NE12 sGVhe7H2uBJ6M2CiYKZv nchmctqybQC0DTBqQWVw yS39Re7zdUuiMi3yDUYd URC9AUSvsLWbD2St pF5qKtZwDCIyXCSgL8Zc kXExQThgS110JPgsOpS0 YXWgadWkT6BnQBXbnRim TqY7z4B0Ac4OJFyo qde6E9CvNwjypMR+PC90 GYAlSV63pIJckRZgo0wc oBf5JvSjESQmMTB5oWad UGfgm2TqSSUkK60d bGFw (more content not included)... Normal [facility] Insurance Correspondenceon 0 07-12-2020 Insurance Correspondence [phone] [id number] 8#1.00CD:127 Normal [facility] Insurance Correspondence Off iceon 07-12-2020 Insurance Correspondence Office [id number] 1#1.00CD:127 Normal [facility] Nursing Assessmenton 021 Nursing Assessment [id number] 8#1.00CD:127 Normal [facility] Group B Strep by PCRon 07-09 Group B Strep colonization by PCR Negative Normal Negative [facility] Comment on above: Order Comment: vagin al swab Performed By: #### 2 [id number] #### [facility] [address] [place] [address] ABO/Rhon 07-08-2020 ABO/Rh Positive Invalid Interpretation Code [facility] Comment on above: Performed By: #### 1 [id number] #### [facility] [address] [place] [address] ABO/Rh History Checkon 07-08 ABO/Rh History Check Verified Hx Blood Type Normal [facility] Comment on above: Performed By: #### 1 [id number], [id number] ####[facility] [address] [place] [address] ABSCon 07-08-2020 ABSC Gel Interp Negative Normal [facility] Comment on above: Performed By: #### 1 [id number], [id number], [id number] ####[facility] [address] [place] [address] BUNon 07-08-2020 Urea nitrogen [Mass/Vol] 7 mg/dL Normal 5-21 [facility] Comment on above: Performed By: #### 2 [id number], [id number], [id number] #### [facility] [address] [place] [address] Blood Bank ID#on 07-08-2020 BBID# [id number] Invalid Interpretation Code [facility] Comment on above: Performed By: #### 1 [id number], [id number], [id number], [id number] ####[facility] [address] [place] [address] CBC w/Indiceson 07-08-2020 Erythrocyte distribution width (RBC) [Ratio] 13.6 % Normal 10.9-14.2 [facility] Comment on above: Performed By: #### 2 [id number], [id number], [id number] #### [facility] [address] [place] [address] Hematocrit (Bld) [Volume fraction] 28.9 % Low 34.0-46.0 [facility] Comment on above: Performed By: #### 2 [id number], [id number], [id number] #### [facility] [address], [place] [address] Hemoglobin (Bld) [Mass/Vol] 9.7 g/dL Low 12.0-16.0 [facility] Comment on above: Performed By: #### 2 409945, 9635480, [id number] #### [facility] [address] [place] [address] MCH (RBC) [Entitic mass] 27.4 pg Normal 27.0-34.0 [facility] Comment on above: Performed By: #### 2 990086, 9853661, [id number] #### [facility] [address] [place] [address] MCHC (RBC) [Mass/Vol] 33.5 g/dL Normal 31.4-36.0 [facility] Comment on above: Performed By: #### 2 495423, 7759422, [id number] #### [facility] [address] [place] [address] MCV (RBC) [Entitic vol] 81.7 fL Normal 80.0-100.0 [facility] Comment on above: Performed By: #### 2 765041, 4240817, [id number] #### [facility] [address] [place] [address] Platelet mean volume (Bld) [Entitic vol] 7.9 fL Normal 6.4-10.8 [facility] Comment on above: Performed By: #### 2 048440, 9253824, [id number] #### [facility] [address] [place] [address] Platelets (Bld) [#/Vol] 320.0 E9/L Normal 150.0-500.0 [facility] Comment on above: Performed By: #### 2 269945, 4633407, [id number] #### [facility] [address] [place] [address] RBC (Bld) [#/Vol] 3.5 E12/L Low 4.3-5.9 [facility] Comment on above: Performed By: #### 2 706890, 1000621, [id number] #### [facility] [address] [place] [address] WBC corrected for nucl RBC Auto (Bld) [#/Vol] 9.9 E9/L Normal 4.0-11.0 [facility] Comment on above: Performed By: #### 2 779512, 2112368, [id number] #### [facility] [address] [place] [address] Creatinineon 07-08-2020 Creatinine [Mass/Vol] 0.4 mg/dL Low 0.5-1.3 [facility] Comment on above: Performed By: #### 2 206093, 2578720, [id number] #### [facility] [address] [place] [address] Discharge Instructionson Discharge Instructions [id number] 8#1.00CD:127 Normal [facility] FSPon 07-08-2020 Fibrin+Fibrinogen fragments (S) [Mass/Vol] <10 Normal <10 [facility] Comment on above: Performed By: #### 2 118269, 4544393, [id number] #### [facility] [address] [place] [address] Stainon 07-08-2020 FMHV 0 mL Invalid Interpretation Code [facility] Comment on above: Performed By: #### 2 081638, 0669564, [id number] #### [facility] [address] [place] [id number] Negative Control Negative Normal [facility] Comment on above: Performed By: #### 2 403466, 1330088, [id number] #### [facility] [address] [place] [address] Fibrinogenon 07-08-2020 Fibrinogen Coag (PPP) [Mass/Vol] 451 mg/dL High 200-393 [facility] Comment on above: Performed By: #### 2 808715, 0404068, [id number] #### [facility] [address] [place] [address] Hep Func Panelon 07-08-2020 Bilirubin.indirect [Mass or moles/Vol] UTC Abnormal 0.1-0.9 [facility] Comment on above: Result Comment: Resu lt verified by Discern Rule. Performed result UTC (Unable to Calculate) was sent as an Alpha code due the inability to calculate a valid numeric value. Performed By: #### 2 181262, 7047885, [id number] #### [facility] [address] [place] [address] Albumin [Mass/Vol] 2.6 g/dL Low 3.3-5.0 [facility] Comment on above: Performed By: #### 2 602284, 9086864, [id number] #### [facility] [address] [place] [address] Albumin/Globulin (S) [Mass conc ratio] 0.8 Low 1.1-2.2 [facility] Comment on above: Performed By: #### 2 941738, 9426472, [id number] #### [facility] [address] [place] [address] ALP [Catalytic activity/Vol] 108 Int._Unit/L High 21-98 [facility] Comment on above: Performed By: #### 2 546592, 4451625, [id number] #### [facility] [address] [place] [address] ALT No additional P-5'-P [Catalytic activity/Vol] 13 Int._Unit/L Normal 6-46 [facility] Comment on above: Performed By: #### 2 260313, 1119085, [id number] #### [facility] [address] [place] [address] AST [Catalytic activity/Vol] 22 Int._Unit/L Normal 5-43 [facility] Comment on above: Performed By: #### 2 521639, 6491981, [id number] #### [facility] [address] [place] [address] Bilirubin [Mass/Vol] 0.4 mg/dL Normal 0.0-1.1 [facility] Comment on above: Performed By: #### 2 359115, 8386357, [id number] #### [facility] [address] [place] [address] Bilirubin.direct [Mass/Vol] mg/dL Normal 0.1-0.4 [facility] Comment on above: Performed By: #### 2 290135, 2919032, [id number] #### [facility] [address] [place] [address] Globulin (S) [Mass/Vol] 3.4 g/dL Normal 1.4-4.0 [facility] Comment on above: Performed By: #### 2 200753, 2595090, [id number] #### [facility] [address] [place] [address] Protein [Mass/Vol] 6.0 g/dL Normal 6.0-7.8 [facility] Comment on above: Performed By: #### 2 316348, 0030833, [id number] #### [facility] [address] [place] [address] Inpatient Clinical Summaryon 07-08-2020 Inpatient Clinical Summary [address] [address] Clinical Summary Person Information Name: MYA MYLES Ifeoma/[facility] Age: 30 Years : 1990 Sex: Female PCP: Chao Blackwell III, DO Marital Status: Single Race: White Ethnicity: Non- or Language: Colombian Visit Id: Visit Reason: Speciality: Acuity: Obs Enc Type: OB Triage Med Service: Obstetrics Arrival: 07/07/2020 19:39:51 Discharge: 07/08/2020 21:22:00 Dispo Type: Home ([facility]) Address: [address] [place] [address] [address] [place] [place] [id number] Provider Notes: Diagnosis: Problems Active Obesity complicating [...] Follow up: With: Address: When: Funmilayo ESCOBEDO [address] [place], [place] [id number] [facility] (1) In 3 days 07/11/2020 Comments: Call Dr. Kramer office Saturday to see if she wants to see you sooner. If not keep appointment. Call for any problems. Call for severe abdominal pain Call physician for heavy vaginal bleeding (more content not included)... Normal [facility] Inpatient Patient Summaryon 07-08-2020 Inpatient Patient Summary [address] [address] Patient Discharge Instructions PERSON INFORMATION Name: MYA [...] Follow up: With: Address: When: Funmilayo ESCOBEDO [address] [place] [address] [facility] (1) In 3 days 07/11/2020 Comments: Call [...] a nearby participating provider. Type Location Start [facility] 07/14/2020 4:30 PM 07/14/2020 4:45 PM Confirmed [facility] Ultrasound [facility] 07/21/2020 4:00 PM 07/21/2020 4:45 PM Confirmed [facility] SOV [facility] 07/21/2020 4:30 PM 07/21/2020 4:45 PM Confirmed [facility] SOV [facility] 07/27/2020 2:45 PM 07/27/2020 3:00 PM [facility] 4:30 PM 08/02/2020 4:45 PM Confirmed [...] (38.9? C) or higher. Document Released: 05/03/2009 ATG Access? Patient Information ?2009 [employer]. Labor and Information normally lasts 39?41 [...] or tightening. (more content not included)... Normal [facility] Lyteson 07-08-2020 Anion gap [Moles/Vol] 9 mmol/L Normal - [facility] Comment on above: Performed By: #### 2 606988, 1879766, [id number] #### [facility] [address] [place] [address] Chloride [Moles/Vol] 108 mmol/L Normal 101-111 [facility] Comment on above: Performed By: #### 2 064039, 5180587, [id number] #### [facility] [address] [place] [address] CO2 [Moles/Vol] 21 mmol/L Normal 21-31 [facility] Comment on above: Performed By: #### 2 498960, 4639818, [id number] #### [facility] [address] [place] [address] Potassium [Moles/Vol] 3.4 mmol/L Low 3.5-5.3 [facility] Comment on above: Performed By: #### 2 079901, 4961376, [id number] #### [facility] [address] [place] [address] Sodium [Moles/Vol] 135 mmol/L Normal 135-145 [facility] Comment on above: Performed By: #### 2 681409, 1124503, [id number] #### [facility] [address] [place] [address] PT & PTTon 07-08-2020 aPTT Coag (PPP) [Time] 25.4 second(s) Normal 25.1-36.5 [facility] Comment on above: Result Comment: Hepa rin therapeutic range (represented by Anti-Factor Xa activity of 0.2 - 0.4 U/mL) corresponds to PTT of 56.6 - 109.0 sec. Performed By: #### 2 458624, 8043765, [id number] #### [facility] [address] [place] [address] INR Coag (PPP) [Relative time] 1.0 {INR} Invalid Interpretation Code [facility] Comment on above: Result Comment: INR results are specifically intended to assess patients stabilized on long-term Anticoagulation therapy suggested INR?s ?Less Intensive Anticoagulation? 2.0 ? 3.0 Conventional Range 3.0 ? 4.5 Performed By: #### 2 093436, 0867000, [id number] #### [facility] [address] [place] [address] PT Coag (PPP) [Time] 12.2 second(s) Normal 10.2-12.9 [facility] Comment on above: Performed By: #### 2 659596, 9731852, [id number] #### [facility] [address] [place] [address] Uric Acidon 07-08-2020 Urate [Mass/Vol] 2.7 mg/dL Normal 2.2-7.4 [facility] Comment on above: Performed By: #### 2 069274, 2946941, [id number] #### [facility] [address] [place] [address] eGFRon 07-08-2020 GFR/1.73 sq M.predicted among blacks MDRD (S/P/Bld) [Vol rate/Area] mL/min/{1.73_m2} Normal >=59 [facility] Comment on above: Order Comment: Order Added by Discern Expert. Result Comment: eGFR is race adjusted. AA=. Performed By: #### 2 376038, 1431392, [id number] #### [facility] [address] [place] [address] GFR/1.73 sq M.predicted among non-blacks MDRD (S/P/Bld) [Vol rate/Area] mL/min/{1.73_m2} Normal >=59 [facility] Comment on above: Order Comment: Order Added by Discern Expert. Result Comment: [employer] ramesh kidney disease could be indicated at eGFR's of less than 60 mL/min/1.73m2. Kidney failure is indicated at less than 15 mL/min/1.73m2. Performed By: #### 2 572838, 8572622, [id number] #### [facility] [address] [place] [address] AmniSureon 07-07-2020 PAMG-1 Protein Negative Normal Negative [facility] Comment on above: Performed By: #### 2 831162, 9604379, [id number] #### [facility] [address] [place] [address] PAMG-1 Protein Internal Control Positive Normal Positive [facility] Comment on above: Performed By: #### 2 607476, 3425825, [id number] #### [facility] [address] [place] [address] Consent for Treatmenton -2 Consent for Treatment [id number] 05 [id number] 3#1.00CD:127 Normal [facility] Consent for Treatment [id number] 05 [id number] 9#1.00CD:127 Normal [facility] FFNon 07-07-2020 Fibronectin. Ql (Vag fld) Negative Normal [facility] Comment on above: Result Comment: In [...] the antibody-antigen reaction. Performed By: #### 2 993315, 6007491, [id number] #### [facility] [address] [place] [address] UA With Cult Reflexon 2020 Bacteria LM Ql (Urine sed) 1+ /HPF Abnormal Trace [facility] Comment on above: Performed By: #### 2 818570, 0566579, [id number] #### [facility] [address] [place] [address] Bilirubin Ql (U) Negative Normal Negative [facility] Comment on above: Performed By: #### 2 839752, 3349805, 679849778 #### [facility] [address] [place] [address] Clarity (U) CLEAR Normal Clear [facility] Comment on above: Performed By: #### 2 318227, 6528251, [id number] #### [facility] [address] [place] [address] Color (U) YELLOW Normal Yellow [facility] Comment on above: Performed By: #### 2 055835, 3605232, [id number] #### [facility] [address] [place] [address] Epithelial cells.squamous LM.HPF (Urine sed) [#/Area] /[HPF] Normal 0-2 [facility] Comment on above: Performed By: #### 2 754442, 8721801, [id number] #### [facility] [address] [place] [address] Glucose Test strip (U) [Mass/Vol] Negative Normal Negative [facility] Comment on above: Performed By: #### 2 224896, 6409562, [id number] #### [facility] [address] [address] Hemoglobin Ql (U) 2+ Abnormal Negative [facility] Comment on above: Performed By: #### 2 208681, 0643144, [id number] #### [facility] [address] [address] Ketones (U) [Mass/Vol] TRACE Abnormal Negative [facility] Comment on above: Performed By: #### 2 228169, 1110711, [id number] #### [facility] [address] [place] [address] Terra Bella.plasma/Terra Bella. RBC (Bld) [Mass ratio] >30 Abnormal 0-3 [facility] Comment on above: Performed By: #### 2 380129, 0254570, [id number] #### [facility] [address] [place] [address] Mucus Ql (Urine sed) TRACE Normal [facility] Comment on above: Performed By: #### 2 789905, 1703826, [id number] #### [facility] [address] [place] [address] Nitrite Ql (U) Negative Normal Negative [facility] Comment on above: Performed By: #### 2 536855, 7734873, [id number] #### [facility] [address] [place] [address] pH (U) 5.5 [pH] Invalid Interpretation Code 5.0-9.0 [facility] Comment on above: Performed By: #### 2 970781, 4403665, [id number] #### [facility] [address] [place] [address] Protein (U) [Mass/Vol] Negative Normal Negative [facility] Comment on above: Performed By: #### 2 214743, 8042009, [id number] #### [facility] [address] [place] [address] Specific gravity (U) [Rel density] 1.025 Invalid Interpretation Code 1.005-1.030 [facility] Comment on above: Performed By: #### 2 553618, 0716245, [id number] #### [facility] [address] [place] [address] Type of Urine collection method Clean Catch Normal [facility] Comment on above: Performed By: #### 2 274634, 4094936, [id number] #### [facility] [address] [place] [address] Urobilinogen Qn (U) 0.2 {Henny'U}/dL Normal 0.0-1.0 [facility] Comment on above: Performed By: #### 2 718732, 9645743, [id number] #### [facility] [address] [place] [address] WBC Auto Ql (U) Negative Normal Negative [facility] Comment on above: Performed By: #### 2 702011, 2621014, [id number] #### [facility] [address] [place] [address] WBC LM.HPF (Urine sed) [#/Area] 0-5 Normal 0-5 [facility] Comment on above: Performed By: #### 2 137805, 6379493, [id number] #### [facility] [address] [place] [address] Ambulatory Clinical Summaryo n 07-06-2020 Ambulatory Clinical Summary {[id number]}CD:[id number] Normal [facility] Obstetrics Office/Clinic Not jasmine 07-06-2020 Obstetrics Office/Clinic Note Chief Complaint OB visit 34 weeks 6 days. Obstetric History History (1,0,0,2) # 1 Baby 1 Outcome Date: 2008 Outcome: Live Outcome or Result: Vaginal Gender: Female Gest Age: 41 weeks Wt: 3232 g [place] [facility] Labor: -- Child's Name: -- Baby's [...] Stable. Ordered: Office Visit Level 3 Est 61116 TH 2. Obesity complicating , third trimester (O99.213: Obesity complicating , third trimester) Doing well managing weight gain. Ordered: Office Visit Level 3 Est 30987 TH 3. Supervision of high risk in third trimester (O09.93: Supervision of high risk , unspecified, third trimester) Follow up in 2 weeks for appt and growth US. PTL precautions until 37 wks. Ordered: Office Visit Level 3 Est 72257 TH 4. 34 weeks gestation of (Z3A.34: 34 weeks gestation of ) Ordered: Office Visit Level 3 Est 50878 Follow-up With When Contact Information [facility] In 2 weeks [address] [place] [address]- Additional Instructions: Problem List/Past Medical History Ongoing [...] Protein Urine Dipstick: Negative (07/06/20 14:59:00) Normal [facility] Comment on above: Result Comment: Elec [...] Document Reviewed: 07/23/2008 ExitCare? Patient Information ?2013 [employer]. [facility] Follow Upon Follow Up Exam Date/Time: [...] Positioning Vertex Amniotic Fluid Volume Normal Normal [facility] Consenton 06-24-2020 Consent [id number] #1.00CD:127 Normal [facility] Ambulatory Clinical Summaryo n 06-23-2020 Ambulatory Clinical Summary {[id number]}CD:[id number] Normal [facility] Ambulatory Clinical Summary {[id number]}CD:[id number] Normal [facility] Obstetrics Office/Clinic Not jasmine 06-23-2020 Obstetrics Office/Clinic Note Chief Complaint OB 33w, baby moving, swelling in feet. Having heartburn for about two weeks. Obstetric History History (1,0,0,2) # 1 Baby 1 Outcome Date: 2008 Outcome: Live Outcome or Result: Vaginal Gender: Female Gest Age: 41 weeks Wt: 3232 g [place] [facility] [place] Labor: -- Child's Name: -- Baby's [...] trimester) Ordered: Office Visit Level 4 Est 00214 NC 2. Obesity complicating , third trimester (O99.213: Obesity complicating , third trimester) Ordered: Office Visit Level 4 Est 54667 NC 3. Depression during (O99.340: Other mental disorders complicating , unspecified trimester) Ordered: Office Visit Level 4 Est 16988 NC 4. 33 weeks gestation of (Z3A.33: 33 weeks gestation of ) Ordered: Office Visit Level 4 Est 23328 NC Encounter for immunization (Z23: Encounter for immunization) Ordered: tetanus/diphtheria/p ertussis, acel (Tdap), 0.5 mL, IntraMuscular, Once, Stop date 06/23/20 16:00:00 EDT, Routine, Start date 06/23/20 16:00:00 EDT EACH ADD'L Tie Sawyer Admin Component 41888 EACH ADD'L Tie Sawyer Admin Component 73069 FIRST VACCINE Tie Sawyer Admin Charge 28497 Orders: famotidine, 20 mg = 1 tab(s), Oral, BID, # 60 tab(s), Refills(s) 2, Pharmacy: [id number], 157, cm, 06/23/20 15:10:00 EDT, Height/Length Dosing, 86.7, kg, 06/23/20 15:10:00 EDT, Weight Dosing Follow-up With When Contact Information Funmilayo ESCOBEDO MD In 2 weeks [address] [place] [address]- Additional Instructions: Problem List/Past Medical [...] Protein Urine Dipstick: Negative (06/23/20 15:09:00) Normal [facility] Comment on above: Result Comment: Elec [...] keep your urine pale yellow. ? Take kpdi-lvr-lwpontl and prescription medicines only as told by [...] 02/04/2006 Document Revised: 05/25/2019 Document Reviewed: 05/09/2017 [employer] Patient Education ? 2020 [employer] First Stage of Labor Labor is [...] monitor strap (more content not included)... Normal [facility] Coding Summary.on 06-12-2020 Coding Summary. [id number] Gh0bWw+PGhlYWQ+PE1FV JOcN33yzULicI7AH6rTX F8ENBQXWCQUNZ3NYS0ll WM7PGreZ5BgnmNb GvutpBTpJU13VIp2IBB4 mLnfMAehoR0kcCDkW2b5 BjHeYX43gL20HYetSVId AeU6QhOhrzmnnEDo D0skKySmoLPaBbz+PHRh YmxlIHdpZHRoPScxMDAl IaTghDkoDC7kYb6bHQYi LWNvbGxhcHNlOiBj o1hoERMuDSbfBX8evRft X5AlbVY9BSAhq1f8Az22 dHI+XCBtFKW3nMcoMVcd r681InBsy9feYAG5 vDRdFGbhAXL0H56fk6R6 WOVdWMZbXHK2dZT4lD4s xHukxnbjV2EoqAGkRlC0 TUW1tUZbmY6tpVsv akgnlS8dIlo+K30AMB1L HHGFZS8UZrd6V4QpHzov dHI+MB65OEKfXS78tYTc bUGqe7fhjSa2EaCl QTEwAXC8iSutPDvca7Xo YVQcK69thTYdu4Q5NFPd bMrauJYyTzSnfDF3cG1e FKiquxrgh3ujtvmx Xtklh9saka69uI74J79a VQcsUDRwIUY3WDCuKPLi yKoaii6zzY8kEt4+IDxj b5nov3xrqJo4MkLl XBFnqnBrkRocYIU0x7Fp Ff20Q6NxxRmml9PvEsz9 ja97bBZgc8Y2nZL8QVcq LAAipJ6hFNalNyM7 IDCfIhBqeD95jSLvEAap Rw5zdMyglDkeKT9tNOOt dpndUUIwgY4fYMYgvAYm rDiwXX7uMMRdfqru k877CdPzOHH0XDRteALr Y2PtvQ6aRtRvVFFxPMUi F3XurBIuSTwlG212UVek GvQ2IECfjyCvL5Xv WITqiBfiGoU5l1P9Gd7U c1HxuwfsKQK5TIpgQBS8 ZsS4UfWqUfG8F1UsOxu0 CMHuzNdiQV1hP7Wh FSVdtndgjcijtMU5JHMt FEJjoP52cGSjUYxsLv6l z1G7n425EFHgWKMieQ32 Hu8bxGdnIVZqtBJR uT1xuxepr7isnyfrLfPm JVEdQDp4BJv5AMCofQis PgHtJAX0RuO0SCQ2gOLz hA9reZvhkhzyiH5b Oyc+Z99tdA0wGTS4BAR4 nvxoXQImxjBoJE80QD60 C0YgOuwkkCLxbFG+PGRp nbYmfGstIX5qEmAb o2mxs7KkTFipV8YqFQQd OBghRlv8UCNrGRC6xOQ5 oK8dCMUhSHbmg0Z7oOT0 H6DuhrRqcc1ag3oa VRJhKZxqY72tkJBvi1H6 DEBgiFL2LHJthKsaWnEq cD46Qtx+LOMkpBzcp8Zt Iycax4fko0scjLw1 IjMwJSIgdmFsaWduPSJ0 l1PxCn53T53wIHgyUOIy TFCzUPLaECYneBsech2p bD3cCf5+PGNvbCB3 uJC0qK2gZIEyXvC3THvi K977FxWigBAqLnhgc8ht j6gzrNz7NfUqXQHoeuGt wEhoLOK2m7LlPf40 W61nXWgmZHAiFCUtOFQx KOTmlBsheh5viS9wRi1+ LV9su6qibc74hB90rTH+ EXWjXRP1bRypOXvc EPRtbX4fKWkdQcV6QHQy CwEcaK93fROmNVysIj0b oXotoTjnTG7iXKAbdlqh d870CuSlb9pjATSz aTTxMQqjAMZ5L07mn4M2 WSPpRHOvVUX2iJN6oU1n bGlnbjogbGVmdDsgdmVy hFxhUCghMNmmW412 IHRvcDsnPlBhdGllbnQg IlJfACe2M8BeEfy9RNEk qSscND2ucNZjLJdkQp9t zYcmcQamDJ6jOGWx myrii253TxRgu5vuSCOs jYSiQTviXKZ6H63jw5M1 EDOjLWTrCKD0jAV6yI1y bGlnbjogbGVmdDsg mxMsoWiwUWskKCcfJ052 IHRvcDsnPkJpcnRoIERh wMQ3VW23UD72yNGoj9Z1 xIS1F2OnISXydgwt zcqcpUP4TFZmMOSwjL21 Gw4lzXrhVs3eESToWFE8 YBPncBRjB5GxhI5aWxFh BJXfXFVcX0UazSZo EVrxL947EZbnVqR2YXFb lcYzM1MeNFCdgGeiDnP0 j9Z0Id9SK9X0VR31FF27 mSUnw0F4iYS8V5Kz DOUtccingjnuySS4FUSc ATWgvC84Kk2usZgcZd6w XWTmFHA7AEUtiGSmI3Zb uK8kXpDgWMJuHWSq P1SnmBIhFJdlA509KEsy BpC2KWBqffVjR2WpFNTd kRlcNtH0x4H1Ea0QBDd5 DZ60GB19mMFgk5G5 dHN8A6TaWXGksyzntkmn dVN5RWWyOHQnxZ63Ga4n yWxgPy3eNUIvZAA3DDYt zQGsP8FjdF8dNgYw WXRkCWViH9WmoAGiIAit H548IDcfLgJ8FPUzzkJf E8YeMNDylEkkPuZ5i3T3 El8KSRHhNS31TPK6 dBN8VB39BY86F7NiLpqu dGFibGU+PHRhYmxlIHdp ZHRoPScxMDAlJyBzdHls BO3gMw4oZVKnGZCv lLermWSqNkXlh2cuAPFz QAoyNZ6ukPeeI3YtfKL6 IIGgb9b9Fu50I96pB3En dXA+CICfcAC5tTX9 eI3kHeOfHmU7MBxaG485 GqKnuAQfCocef5qxq7tj wCv0WeJ9YZHjqyEspIci PYL3c3KwBd55V08x IHdpZHRoPSIxNSUiIHZh uXvhjf5caX2kLm6+PGNv nLN6dUW9xI6aGnQnNkT5 DDqnF277KvDxyPAc Xtayg3lbx6fzmTq7YaLu UGYolmCkkRndZRY0i5Xi Wu73W0TflGfri7LpGma8 zb42wLWbg1M0zFL3 J2XjKTBoquuseMDerCpy PN1aIQWvoqgqVGXdyH1s FPQsT0x3UbMfVlA5QFtj I5WcufT0AFHyhTPy WNhzRUF0J82kn1G6NOUs ZTKmXCI4xLF5wF0tkGqx bjogbGVmdDsgdmVydGlj MOfoGJvsR980OLBh vHytUPZmaC9sWANoaASu zOqvBM9aEOHairkjGnYY VswUAt7gXGXXTuAAR9Gv TDwvdGQ+PHRkIHN0 iAzxGWzkNHIpyA3yZMVx H2r8VhSyEdM0NOwkG0Lf OXCqnxknJl86nT1xAeUj SeS0DQzjY4UnvmT7 EKIphFWvEWrtQND9G15j d3I0FFOvKLEpQUV1eCI0 sN2phJwsgtcxcQMmpIjx dmVydGljYWwtYWxp T601NODpnUxvUuU1FgIo LqJ7ZOJ8J2QzVdg6NAAj yGnuZJ5yxBNbBZutHa6d sIwtnYbnPH0pORCw dznpSEGtsK3pCUBhwLYt mLbkLA8sWXCtpzrbh576 PwPqGMQ6ZBNeuDDqH6Nc rB8uJjApUARvAGAi B1LdgXLmEGfeQ700OJxa BiY8MJFqttKdY8FhITEc fUxuTwP4e7J1Es5wOIGA ZWFyczwvdGQ+PHRk SCO7zMspCMsvGOIrpL9b IQMnB4f6PjGrBzJ5VEhh P7EbCCDzmfbwEp96sG9d QhLnXmZ5CZukY9Tm dlM2RAFteLXhBGajKDB9 Q82ue5V2XUEkHTYrIPT6 oLA6yO4fsXjbjjazsMBl dDsgdmVydGljYWwt PNyeT525WQSazVonSiTy bWFsZTwvdGQ+PHRkIHN0 bNobCPolJRJsqE1gTAZo V8o0UiRvPvS3RXsf H1XdINCuelqdXw61lX0q DdOoBeT5PLsuX2MejmE6 MZChyMWiVUegXZP9F42n o0W3IIMaVITlUZW4 iLC1iV6eqGpknfceqGTr dDsgdmVydGljYWwtYWxp H694BBGkuGflUp59fVXh nCoudwA1E4RwKita dHI+ZS25YNSnCZ73kXDz dZUif3mzmOa5ZkKnMIXk BND6uBbaXUpja8ZkDTOu W33xpHLrc2K6AVRs lYiwlXMxRwEnvLJ9vR1i TGqhjshpp9gxwytzIrrm o5vgdv77yG04K13jAJzg ZHRoPSIzMCUiIHZh xLigaz9fcI6ySe4+PGNv cDK1hOA9fZ4oAoKnXhJ6 XYwvV849XcXloKIdHadt t7bmt9vkrQd8SsSg YJEbfdHdaLfvPQD2k7Vq Du77O28oIJwgENXjQGLj YKWuYLZpiPogkr2odN6k Ii8+MW0zh3evcj00 kY67iHI+JQRtJVT7eQsj ZKgcFIDzhU6xKPglVeZ2 TSScFlEfrN98dLFcUAhg Ax5fcTygpMzpMN9u JGBbuqwes155IcOli1mi VAPrlKXcGRdtJKY8R36b p5M4ZLDvRDKzBOL8eAX3 aF5bkEwzzmzedMPh dDsgdmVydGljYWwtYWxp Y738MGVxmWfpHuVqxJMx G1eqpnRCCY5bQmqqbGP+ UHRfRVL9jGgsKHqx ZTEwpL0aIPGgM7i7NpAv AbF0VUziX9VcspY8OOGu uHEuNMLomJUMyG3dgvly n4xzltfrSlAwYGGc RTw7DCk5DFUarUqyFbBo JQF9LiG0LER8aEUhvC4d vSxgiyrzsB8yOki+RklO OjwvdGQ+PHRkIHN0 hLjmXKpkUPHljL3rSWXe B5o9OmUnAwM1JKcfN8Yb nxM5DKOxwQXrKEFczKUR gO0ujzzmm1nwhqsm GfZrQZCjFMq3FVj6QLUe iHysHfFjBRQ3HiL9ULL7 lSBcqG5arXetpfrtqN7n Oyc+TVJOOjwvdGQ+ ADRvMIA3xQhlXPaoKEUg uK8fUTZhP0z9TpZxTqQ2 BDmbN0IbggI9OHXwsJLh UTXegSPRqT7uzvrb h3csfqfoDyFoTLUjECz3 GMv7TNIxyKhaPoTkCCN4 ArY4ORO9lXVdtU4cjCcd krxmvR4yBzq+UGF5 TOQ4RX75OE55I3PrFtzf dGFibGU+PHRhYmxlIHdp ZHRoPScxMDAlJyBzdHls JP0fSp0zGBNdEDZc bGxh (more content not included)... Normal [facility] Coding Summary.on 06-09-2020 Coding Summary. CD:[id number]:[id number] Gh0bWw+PGhlYWQ+PE1FV FDsL88lxNVcbQ7VL1bHU G2CISMGXGYMJP2IVB9bo HT7FQjbJ6IrhfCe AehkaZWcHM33LPl8CEQ3 jYipBEzhfD0kwYHkE0e0 HjHxGZ35bO16JUxmCIYm OaC4ZjLnomyekQMv J4ooTtLriIGuYgb+PHRh YmxlIHdpZHRoPScxMDAl JmBcaLwbAW1iEg2sAWLt LWNvbGxhcHNlOiBj h3zjHDAvRVmgHT4stCrt G6EklRW0AKDgz3t1Kh97 dHI+RBTuSFA8nIsrBOna x562KlAbh0dzFUG0 bWWpPOqgKUV1P90ax7Z7 YGQkGXKiUSQ4zDR9jB9s gYonceleK4HquNCuIlK6 WFN3zZNiaY6imTkb ynxikK4cLoi+T31WOL7N RUVARZ3JVae5O0ObDqnu dHI+FX77ZPAbPZ46lYZo xEXvx1eqnFu8QsFk KPChZXD4xYkaGOtbj8Fz QORvF85ryENxl4T5LFQc cNnnxWFhJvItyVQ3oK2i LNunhvdot6jhgaxt Znfvq6aqhd17xP74A32t QCevOISyJRZ7KAMcHKDk gBghor0khH7nAe4+IDxj n0pql1ttdFb2NxIs JZZntvKdjGjxTJT0s1Df Wa98F8HzsSpfa2IgGbh7 ai16pSOry1T6rWH9RVrk ZCNzyA6dEYgdJkY8 BQBwLaVdeL78tKUjXZgp Qg9vuRlufEneBU7yXUBr mnbkUUOrcK5mGSZbhRHh kKnzEV1oNNPylmpp a337DeCbVBQ8XPKftPUr A8CqxW8dYtHiZJGeCSBq W8KzlNFkIDuaW625UNkz WjY9CRMowkDfY7Kb OKPyiUnxMuJ3n4F0Rh5O i9ClrljcHST0EYmxPWS8 UnNhNpRdEwV3U3ZkFlb0 CQEgxYwbZD7oW1Ld LCZdvabjfurxgDZ7TRAn WLBjoB61kQUvKAzyFa9s d5J1t892STGaXITndY22 Uc7aoAwtIHFdjOKP bZ7vftpdm1wrpmwaBiJh RSLfRJk1SAw8RRBksVni MnQeHDB2KhN8BYP9wKQi uA2elOjdqoifjP7q Oyc+M44spL5jLPA6VCM5 xmkrHVYenxFhWB76VQ06 Q4QfSxfdoJXpwNQ+PGRp chJhfEyzHX0sXaCt o5ccl9FtTPmqC2BbQVGl VPsxDky1MKYzVOY9iVB2 xR2nFGSsAOilv5I2pEJ3 P7WlgpLdzv7qo9td JRSxHQlhH08ppKCfs0K0 LZIlhYG9OUHnbImpXvHb xN15Rhg+KYWwhHkdf8Aw Nwvuy1yqn4xmyZl4 IjMwJSIgdmFsaWduPSJ0 p0AbKy05F68eGMafYBSp PCEtOLRvOGDtiQtoga0w pA8cEg6+PGNvbCB3 pSP0uP2iZEVzNzF3JKcc N398IoZimKObNdfsm8bj b9dblHy3ThIoUNAjqbOb dXfrFED8c1IxGs13 A34gLRmdWQEzKUYlYMMl IBJhnDxteb8koJ5fXm9+ SQ8rp8zhnz37zE84oWB+ RCYoIDT7dRivSLsn WHMltK9pGZnpFfZ5DXRe GdObfB35uBYcDObwEy7r zPqqhUxxKK7wJQOydldp g805VuBsm2zuMLYh zBKpBPwyCAT4K07ic0U9 DHVqDJKxHGX0iEP2rS7s bGlnbjogbGVmdDsgdmVy sCidORtzQApbM673 IHRvcDsnPlBhdGllbnQg AlNyBJl9P0DdWfq4MOOc bAcnDX8nxSDvVRduKw0l oXejhNmcMN0aYDUk jtnur363HvHsr4nlWLZs jGRqRQukSEF0B26fe8L8 JIBnXEKuJAT6tGA6eY7k bGlnbjogbGVmdDsg zxWdgQpwPIbkVAtkE115 IHRvcDsnPkJpcnRoIERh xMH0QL20TN11aLJgy7Z4 aNH0H1PlVHVqzhto jlxtjYF5HSUuNUUasL78 Gv9nxXieHe8qEMVzEOB5 QZKthSOzD8JtkZ6zKbWz XHNlAEBfP4HhmYGd EWylA874EFqbErQ7BEUl poVeN8ByXYAahIdiVeK9 o3E5Vx8YI7F4TQ72IF90 rJVbj3V3nKV9H2Jl QWLxsolmifcshBB7PRQg SCGcqH53Rs9spJbxNm8r XQJkUXF2LPVmvVTgD3Pg gD5aZmGwQEGqMCRf D6JrzGDpTMivR433HBrg IhD1JPUdqkNsD8GjKKCc gYpyYbH4c2E9Tk1ZHAl5 ME86YA61gTQgg0X7 zAM8C0ErYQAmuukcpuqi nUN5SZCyNQFvxF46Iw1s jXkhQc5vBRChUEV7QLNj rLDeI5VudW5uCvTv BMPyZYIdX8OtqOZpNTvs E416SMghHsP2JSTacpYd N6NbKLGmyGftGsV1d4V2 Qp5YBVLrDA74MQR5 rKJ7JI92UP00P7KrUgbc dGFibGU+PHRhYmxlIHdp ZHRoPScxMDAlJyBzdHls PE3uSc2nPDXgMPVg sXtyoIUbRfQgc3evWGQv AMdoPV6oaRnlQ4WumBF8 SCGeb2f8Zg04I65qC5Wk dXA+CRCreMD2eBR2 kW9fRzUaOcV0COeqY590 NvAjgZJxOkgga8ctq9ub zPg2IzW2PPIkqvGmhApg SBP5k8SmZq66D05h IHdpZHRoPSIxNSUiIHZh iMauwe6pjU7jLn1+PGNv xMX6lFH0cI9rIjTdRhE5 XGmeX234NnHvmGNa Ogheu8olo5kdkDo4WaXk RAFonxZoyRdjXDJ8w4Kv Yx92Y9WqfEcbc7VfMen5 ey84pXEnu3M9uPS7 G3XsZUGzkzkzlQKnaPmt ZS0vTVBhocowJNPmoK2e DAArO6i5PxNwVoZ1MUay Y4JvdzS4SZRweTAg XDdvPEB4G87jv4J2ASEs WIOqWOT4oSF4sS0xaNdt bjogbGVmdDsgdmVydGlj PMywJExlX796OONm cCchQLAbfJ4rBJYceBSa sXwcSV1cURXxxwuyFxSG QwfYYu8wGMUCGdZWH1Kr TDwvdGQ+PHRkIHN0 pGzqRQeqAKFjrY5nXYMt J4j7RkPjEvJ0VFxdV9Qs RXPbtpmsQm95mG1yDgZo LgM6IWynU4XvaoU7 WVGqpFFhOAilUIR5E86i g4B8FWMzDGHeFAK0vDJ8 oL4npCbybetbtFCrtLeu dmVydGljYWwtYWxp O326AOJthTmkYqG1UxUi PbI7JEV2A2WpIjg0DVLe uWtkGK2bmKNrDCbjMq6q qRtzmByfBK8nEIJi jwbeBTJbsG8iJNKulGPd yBmnHH9iKRRnzlthn862 BiPiLGR9KJBguTVuJ8Kk fE4uPdOdVAXmBMMm V4YacEFxINxaA209ZQhc IfF3XZOmdyIfC3LqBMHt bXiuVgN6j5L9Dd3wLUYP ZWFyczwvdGQ+PHRk BTN1jZmxCNtaUBHngL9y IAOmU9i3UyVhNfY6LJln U0ByRNJpcbhmDy09nL6g QzViRpL1KRjyZ6Hq qjS7AWXawXGnBVyyQMH0 N64my0E8PWFyKOBvHFN4 vTZ4rO3kqHglhwmdrCXa dDsgdmVydGljYWwt GPfnE466HWUjbRywCuHg bWFsZTwvdGQ+PHRkIHN0 yFkoBUxaBMSzfL9tZTQb Q1j0ZeDmDcU3SLio Q0ZbVVKowqwgLi96cK6y KbCvShF4LJwxU8ZqhcE5 KFBqwYNoQOjuQWE9V40n f7V8DKFeFFRlTUG1 yLM4mH9iwUfyfusytCPd dDsgdmVydGljYWwtYWxp D528BKDrtMuaHu03sIQa lYgymhI2K6BsWasv dHI+WZ85BGHyZM96dOXq rQBsd5qowMh4LnFmUXYk TGU5iLwhBFtpi2RkAKGo F41nkZApd6L1PNBc uRxpxCKpSvAbhYT3zL2n WQdipddsb1trfzfbFfip t2fkvv60qG28E25iOEdt ZHRoPSIzMCUiIHZh lJtqyn7vrU6kBe3+PGNv xEO6aUC6jE2jLgUlPyZ6 RRuaQ064NuLarPGnJllx m6ndp3ajgHg2SyRb DHMnzrYtdDrtPSI9o5No Pe18U34fWEkhUAWjHLKs BMBrCHGuuBwkpb2kfX2l Ii8+RT8yp5ljrw85 aZ58tLG+SFHjVMD7eRpu JEzzTGGfgI8uODgxSfG8 NSArLmLgmT44lBVbTYtk Ky5uiMyhnJxsIQ9o CWLvoztoo058BfSrl3wz OCNdtEJcEHrsZHY7B02y a7B3NOFjKRRgVMU8yRT8 vT9wtLjljdossSNv dDsgdmVydGljYWwtYWxp W978AQGbkIyyRdBcePNy E0zhhsSAFR8aWuzngOG+ GXBtXTZ1fWiqJBhh QJRkpL9cKECxO0q4JzDp SuZ5GUsfT3JvzwB0IQCb bRUrSEBalJRAoD5zqcrq w6owshtbIvUbOSMf XVx3JWd0CTIskUreScFa YNP8QpC8LEY6yAToeK2r wObfwnudjV7xQgc+RklO OjwvdGQ+PHRkIHN0 gNriVZhuWDRspG6dZREv S5b0KjBkZqR2DHveN0Ec gkL3ERRreDHbUZHysFYX nL3yfjwzs6bgurib RnLrVTCuBWz8JBn4QMEl kBteNgPuBMX3IeF8EFR8 dCWjhK6nhQohugxdbQ0w Oyc+TVJOOjwvdGQ+ NFJnTQX5oGadTSxlGJLn tC5oSNDvH5s5KxDgSsX8 EZhgY6PyxrF2HPJcgAQx KAIzcCOWgE0uekuq v0cygxyoCxDbIZFhACj7 NZj2ASFfmIyiRmBnCIY7 FrF3PAO2kPEhhQ7yqWbq qnpxkR2gEaj+UGF5 OFW0PQ69SM93M3ObNdrl dGFibGU+PHRhYmxlIHdp ZHRoPScxMDAlJyBzdHls UU4rWg9lLQTsZVTs bGxh (more content not included)... Normal [facility] Capillary Glucose POCon 05-19 Glucose [Mass/Vol] 82 mg/dL Normal 55-99 [facility] Comment on above: Performed By: #### 2 [id number] #### [facility] [address] [place] [address] Consent for Treatmenton 05-19 Consent for Treatment [id number] #1.00CD:127 Normal [facility] Glu 1 Hron 06-03-2020 Glucose [Mass/Vol] 139 mg/dL Normal 55-180 [facility] Comment on above: Result Comment: POSI TIVE SCREEN = 1 HR > 140 mg/dL Performed By: #### 2 062636 #### [facility] [address] [place] [address] Glu 2 Hron 06-03-2020 Glucose [Mass/Vol] 123 mg/dL Normal 55-155 [facility] Comment on above: Result Comment: DIAB ETES FASTING >126 mg/dL or 2 HOUR >200 mg/dL Performed By: #### 2 611988, 9372522, [id number] #### [facility] [address] [place] [address] Glu 3 Hron 06-03-2020 Glucose [Mass/Vol] 101 mg/dL Normal 55-140 [facility] Comment on above: Result Comment: GEST ATIONAL DIABETES 2 of the following: FASTING >95 mg/dL 1 HOUR >180 mg/dL 2 HOUR >155 mg/dL 3 HOUR >140 mg/dL Performed By: #### 2 [id number] ####[facility] [address] [place] [address] Glu Fastingon 06-03-2020 Glucose [Mass/Vol] 83 mg/dL Normal 55-99 [facility] Comment on above: Performed By: #### 2 329548, 4853267, [id number] #### [facility] [address] [place] [address] Rubella Abon 06-03-2020 Rubella Ab Positive Normal Positive [facility] Comment on above: Performed By: #### 2 513762, 0610304, [id number] #### [facility] [address] [place] [address] ABO/Rhon 06-02-2020 ABO/Rh Positive Invalid Interpretation Code [facility] Comment on above: Performed By: #### 1 [id number], [id number] ####[facility] [address] [place] [address] ABSCon 06-02-2020 ABSC Gel Interp Negative Normal [facility] Comment on above: Performed By: #### 1 [id number], [id number] ####[facility] [address] [place] [address] CBC w/Indiceson 06-02-2020 Erythrocyte distribution width (RBC) [Ratio] 12.9 % Normal 10.9-14.2 [facility] Comment on above: Performed By: #### 2 522826, 9123250, [id number] #### [facility] [address] [place] [address] Hematocrit (Bld) [Volume fraction] 33.5 % Low 34.0-46.0 [facility] Comment on above: Performed By: #### 2 282558, 7172746, [id number] #### [facility] [address] [place] [address] Hemoglobin (Bld) [Mass/Vol] 11.2 g/dL Low 12.0-16.0 [facility] Comment on above: Performed By: #### 2 715160, 0414716, [id number] #### [facility] [address] [place] [address] MCH (RBC) [Entitic mass] 29.0 pg Normal 27.0-34.0 [facility] Comment on above: Performed By: #### 2 268616, 3806440, [id number] #### [facility] [address] [place] [address] MCHC (RBC) [Mass/Vol] 33.5 g/dL Normal 31.4-36.0 [facility] Comment on above: Performed By: #### 2 296780, 6377658, [id number] #### [facility] [address] [place] [address] MCV (RBC) [Entitic vol] 86.6 fL Normal 80.0-100.0 [facility] Comment on above: Performed By: #### 2 586899, 9692711, [id number] #### [facility] [address] [place] [address] Platelet mean volume (Bld) [Entitic vol] 7.6 fL Normal 6.4-10.8 [facility] Comment on above: Performed By: #### 2 672498, 2090220, [id number] #### [facility] [address] [place] [address] Platelets (Bld) [#/Vol] 284.0 E9/L Normal 150.0-500.0 [facility] Comment on above: Performed By: #### 2 651249, 6595669, [id number] #### [facility] [address] [place] [address] RBC (Bld) [#/Vol] 3.9 E12/L Low 4.3-5.9 [facility] Comment on above: Performed By: #### 2 029469, 8221055, [id number] #### [facility] [address] [place] [address] WBC corrected for nucl RBC Auto (Bld) [#/Vol] 9.4 E9/L Normal 4.0-11.0 [facility] Comment on above: Performed By: #### 2 091983, 2726861, [id number] #### [facility] [address] [place] [address] Consent for Treatmenton 05-19 Consent for Treatment [id number] 10 [id number] #1.00CD:127 Normal [facility] Gest Scr Glu 1 Hron 06-03-19 Glucose [Mass/Vol] 150 mg/dL High 55-140 [facility] Comment on above: Result Comment: Posi tive Screen =1 HR > 140mg/dL Performed By: #### 2 381851, 5604124, [id number] #### [facility] [address] [place] [address] Ambulatory Clinical Summaryo n 2020 Ambulatory Clinical Summary {[id number]- d8-26-70}CD:[id number] Normal [facility] Obstetrics Office/Clinic Not jasmine 2020 Obstetrics Office/Clinic Note Chief Complaint OB 29w 5d, baby moving, patient doing 28 week labs done this Obstetric History History (1,0,0,2) # 1 Baby 1 Outcome Date: 2008 Outcome: Live Outcome or Result: Vaginal Gender: Female Gest Age: 41 weeks Wt: 3232 g [place] [facility] [place] Labor: -- Child's Name: -- Baby's [...] trimester) Ordered: Office Visit Level 4 Est 38398 UT US Follow Up US Follow Up 2. Obesity complicating , third trimester (O99.213: Obesity complicating , third trimester) Ordered: Office Visit Level 4 Est 42497 UT US Follow Up US Follow Up 3. Depression during (O99.340: Other mental disorders complicating , unspecified trimester) Ordered: Office Visit Level 4 Est 73853 UT US Follow Up US Follow Up 4. 29 weeks gestation of (Z3A.29: 29 weeks gestation of ) Ordered: Office Visit Level 4 Est 28203 UT US Follow Up US Follow Up Follow-up With When Contact Information Funmilayo ESCOBEDO MD In [address] [place] [address]- Additional Instructions: Problem List/Past Medical History Ongoing [...] Protein Urine Dipstick: Negative (05/31/20 14:25:00) Normal [facility] Comment on above: Result Comment: Elec [...] including vitamins, herbs, eye drops, creams, and cagf-zeg-wrklaiq medicines. ? Any blood disorders you have. [...] This inform (more content not included)... Normal [facility] RAD - Ultrasound Reporton RAD - Ultrasound Report [id number] [id number]# 1.00CD:127 [facility] Coding Summary.on 05-17-2020 Coding Summary. CODING DATE: 05/16/2020 FINAL [facility] STATUS: Home (Routine DC) PAYOR: Diamond [...] Pitt CphT Date Saved: 05/16/2020 11:17 pm [facility] C Urineon 05-13-2020 Bacteria identified [...] Locations R1: [facility], [address] [place] [address], [facility]- , [place], [facility] Comment on above: Performed By: #### 2 291011 ####[place] [address] Ambulatory Clinical Summaryo n 05-11-2020 Ambulatory Clinical Summary {[id number] [id number]-[id number]- b9-f9-14}CD:[id number] [facility] Obstetrics Office/Clinic Not jasmine 05-11-2020 [...] Age: 41 weeks Wt: 3232 g [place] [facility] [place]enny Labor: -- Child's Name: -- Baby's [...] far. Ordered: Office Visit Level 3 Est 42050 NC 2. Depression during (O99.340: Other mental disorders complicating , unspecified trimester) Doing meditation. Ordered: Office Visit Level 3 Est 39209 NC 3. Supervision of high risk in [...] 1 Hour Office Visit Level 3 Est 94103 [place] Urine Culture 4. 26 weeks gestation of (Z3A.26: 26 weeks gestation of ) Ordered: Office Visit Level 3 Est 19640 UT Follow-up With When Contact Information [facility] [place] In [address] [place] [address]- Additional Instructions: Problem List/Past Medical History Ongoing [...] Smokeless Toba (more content not included)... Normal [facility] Comment on above: Result Comment: Elec tronically Signed By: RHONDA DICKEY, Caroline\.br\Date and Time Signed: 05/11/20 10:23 EDT Patient [...] Petroleum jelly. ? 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 Rectal thermometer. ? [...] 01/17/2009 Document Revised: 01/17/2018 Document Reviewed: 12/25/2017 [employer] Patient Education ? 2019 [employer]. [facility] Coding Summary.on 04-29-2020 Coding Summary. CODING DATE: 04/28/2020 [facility] STATUS: Home (Routine DC) PAYOR: Diamond [...] Pitt CphT Date Saved: 04/28/2020 10:33 pm [facility] Coding Summary.on 04-27-2020 Coding Summary. CODING DATE: 04/27/2020 [facility] STATUS: Home (Routine DC) PAYOR: Diamond [...] [facility] CphT Date Saved: 04/27/2020 10:53 am [facility] Nursing Assessmenton 021 Nursing Assessment [id number] #1.00CD:127 [facility] C Urineon 04-23-2020 Bacteria identified [...] Locations R1: This test was performed at: [facility], [address] [place] [address], [address] [place] [address], [facility] Comment on above: Performed By: #### 2 220689, 3650461, [id number] #### [facility] [address] [place] [address] Consent for Treatmenton Consent for Treatment [id number] 30 [id number] #1.00CD:127 [facility] Consent for Treatment [id number] #1.00CD:127 [facility] Discharge Instructionson Discharge Instructions [id number] [id number] #1.00CD:127 Normal [facility] Inpatient Clinical Summaryon 04-21-2020 Inpatient Clinical Summary [address] [address] Clinical Summary Person Information Name: MYA MYLES [place] Age: 29 Years : 1990 Sex: Female PCP: Chao Blackwell III, DO Marital Status: Single Race: White Ethnicity: Non- or Language: Colombian Visit Id: Visit Reason: Speciality: Acuity: Enc Type: OB Triage Med Service: Obstetrics Arrival: 04/21/2020 15:56:05 Discharge: 04/21/2020 17:47:48 Dispo Type: Home (Routine DC) Address: [address] [place] [address] [address] [place] [id number] Provider Notes: Diagnosis: Problems Active Depression during [...] Follow up: With: Address: When: [place] [address] [facility] (1) 05/12/2020 9:00 AM Comments: Call for any problems. Type Location Start [facility] 05/12/2020 9:00 AM 05/12/2020 9:15 AM Confirmed Patient Education Information: Normal [facility] Inpatient Patient Summaryon 04-21-2020 Inpatient Patient Summary [address] [address] Patient Discharge Instructions PERSON INFORMATION Name: MYA [...] Follow up: With: Address: When: [place] [address] [facility] (1) 05/12/2020 9:00 AM Comments: Call for any problems. In the event that this physician does not participate in your insurance network, please consult with your insurance company to find a nearby participating provider. Type Location Start [facility] 05/12/2020 9:00 AM 05/12/2020 9:15 AM [...] to serve you. Thank you for choosing [facility] Normal [facility] Insurance Correspondence Off iceon 04-21-2020 Insurance Correspondence Office [id number] #1.00CD:127 Normal [facility] RAD - Ultrasound Reporton RAD - Ultrasound Report [id number] 0210 [id number] #1.00CD:127 Normal [facility] UA With Cult Reflexon 2020 Bacteria LM Ql (Urine sed) 1+ /HPF Abnormal Trace [facility] Comment on above: Performed By: #### 2 980877, 3465094, [id number] #### [facility] [address] [place] [address] Bilirubin Ql (U) Negative Normal Negative [facility] Comment on above: Performed By: #### 2 424437, 7643500, [id number] #### [facility] [address] [place] [address] Clarity (U) CLEAR Normal Clear [facility] Comment on above: Performed By: #### 2 818764, 6382968, [id number] #### [facility] [address] [place] [address] Color (U) YELLOW Normal Yellow [facility] Comment on above: Performed By: #### 2 565615, 0688860, [id number] #### [facility] [address] [place] [address] Epithelial cells.squamous LM.HPF (Urine sed) [#/Area] 3-4 Normal 0-2 [facility] Comment on above: Performed By: #### 2 620469, 9314849, [id number] #### [facility] [address] [place] [address] Glucose Test strip (U) [Mass/Vol] Negative Normal Negative [facility] Comment on above: Performed By: #### 2 014066, 8767873, [id number] #### [facility] [address] [place] [address] Hemoglobin Ql (U) Negative Normal Negative [facility] Comment on above: Performed By: #### 2 510192, 2120016, [id number] #### [facility] [address] [place] [address] Ketones (U) [Mass/Vol] 1+ Abnormal Negative [facility] Comment on above: Performed By: #### 2 397037, 5377324, [id number] #### [facility] [address] [place] [address] Terra Bella.plasma/Terra Bella. RBC (Bld) [Mass ratio] 0-3 Normal 0-3 [facility] Comment on above: Performed By: #### 2 399317, 6217464, [id number] #### [facility] [address] [place] [address] Nitrite Ql (U) Negative Normal Negative [facility] Comment on above: Performed By: #### 2 744265, 1297992, [id number] #### [facility] [address] [place] [address] pH (U) 7.0 [pH] Invalid Interpretation Code 5.0-9.0 [facility] Comment on above: Performed By: #### 2 [id number], [id number], [id number] #### [facility] [address] [place] [address] Protein (U) [Mass/Vol] Negative Normal Negative [facility] Comment on above: Performed By: #### 2 [id number], [id number], [id number] #### [facility] [address] [place] [address] Specific gravity (U) [Rel density] 1.010 Invalid Interpretation Code 1.005-1.030 [facility] Comment on above: Performed By: #### 2 [id number], [id number], [id number] #### [facility] [address] [place] [address] UA Spec Desc Clean Catch Normal [facility] Comment on above: Performed By: #### 2 [id number], [id number], [id number] #### [facility] [address] [place] [address] Urobilinogen Qn (U) 0.2 {Henny'U}/dL Normal 0.0-1.0 [facility] Comment on above: Performed By: #### 2 [id number], [id number], [id number] #### [facility] [address] [place] [address] WBC Auto Ql (U) 1+ Abnormal Negative [facility] Comment on above: Performed By: #### 2 [id number], [id number], [id number] #### [facility] [address] [place] [address] WBC LM.HPF (Urine sed) [#/Area] 0-5 Normal 0-5 [facility] Comment on above: Performed By: #### 2 925410, [id number], [id number] #### [facility] [address] [place] [address] C Urineon 04-18-2020 Bacteria identified Cx Nom [...] R1: This test was performed at: [facility], [address] [place] [address], [facility] , , [facility] Comment on above: Performed By: #### 2 [id number] ####[address] [place] [address] Obstetrics Office/Clinic Not jasmine 04-18-2020 Obstetrics Office/Clinic Note Chief Complaint OB 21w 5d, baby moving Obstetric History History (1,0,0,2) # 1 Baby 1 Outcome Date: 2008 Outcome: Live Outcome or Result: Vaginal Gender: Female Gest Age: 41 weeks Wt: 3232 g Hospital: [facility] Labor: -- Child's Name: -- Baby's [...] trimester) Ordered: Office Visit Level 4 Est 59967 NC 2. Obesity complicating , second trimester (O99.212: Obesity complicating , second trimester) Ordered: Office Visit Level 4 Est 54833 NC 3. 21 weeks gestation of (Z3A.21: 21 weeks gestation of ) Ordered: Office Visit Level 4 Est 23472 NC 4. Depression during (O99.340: Other mental disorders complicating , unspecified trimester) Ordered: Office Visit Level 4 Est 32945 NC Follow-up With When Contact Information Funmilayo ESCOBEDO MD In [address] [place] [address]- Additional Instructions: Problem List/Past Medical [...] pts pharmacy. Spoke with pt. 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 Will repeat urine cx at next visit. Kendal Escobedo MD Normal [facility] Comment on above: Result Comment: Elec tronically Signed By: LAURA MACEDO, Funmilayo Garner.br\Date and Time Signed: 04/18/20 18:12 EST C Urineon 04-17-2020 Bacteria identified Cx Nom (U) Microbiology PROCEDURE: Urine Culture [R1] SOURCE: U CleanCatch BODY SITE: COLLECTED DATE/TIME: 04/15/2020 02:51 EST RECEIVED DATE/TIME: 04/15/2020 02:51 EST START DATE/TIME: 04/15/2020 02:51 EST FREE TEXT SOURCE: RHONDA DICKEY, Caroline DICKEY, Caroline FINAL REPORTS Final Report [] Verified Date/Time: 04/17/2020 10:39 EST <10,000 cfu/ml Mixed skin contaminants Performing Locations R1: This test was performed at: [facility], [address] [place] [address], [id number], [facility] Comment on above: Performed By: #### 2 [id number] ####[facility] [address] [place] [address] HIV Screen 4th Generation wR fxon 04-16-2020 HIV 1+2 Ab+HIV1 p24 Ag IA Ql Non-Reactive Invalid Interpretation Code Non Reactive [facility] Comment on above: Result Comment: Perf ormed at: [address] [id number] PhD Lanette Dunn Performed By: #### 2 [id number], [id number], [id number] #### [facility] [address] [place] [address] Hep Bs Agon 04-16-2020 HBV surface Ag IA Ql Negative Invalid Interpretation Code Negative [facility] Comment on above: Result Comment: Perf ormed at: [facility] [id number] PhD Lanette Dunn Performed By: #### 2 [id number], [id number], [id number] #### [facility] [address] [place] [address] Coding Summary.on 04-15-2020 Coding Summary. CODING DATE: 04/15/2020 FINAL [facility] STATUS: Home (Routine DC) PAYOR: Diamond [...] CphT Date Saved: 04/15/2020 09:18 am Normal [facility] RPRon 04-15-2020 Reagin Ab RPR Ql (S) Non-Reactive Normal Non-Reactive [facility] Comment on above: Performed By: #### 9 [id number], [id number], [id number] ####[facility] [address] [place] [address] ABO/Rhon 04-14-2020 ABO/Rh Positive Invalid Interpretation Code [facility] Comment on above: Performed By: #### 2 106757, [id number] #### [facility] [address] [place] [address] ABSCon 04-14-2020 ABSC Gel Interp Negative Normal [facility] Comment on above: Performed By: #### 2 [id number], [id number] #### [facility] [address] [place] [address] Ambulatory Clinical Summaryo n 04-14-2020 Ambulatory Clinical Summary {[id number] [id number]}CD:[id number] Normal [facility] Auto Diffon 04-14-2020 Basophils/100 WBC (Bld) 0.3 % Normal 0.0-2.0 [facility] Comment on above: Order Comment: Order Added by Discern Expert. Performed By: #### 2 726926, 4265835, [id number] #### [facility] [address] [place] [address] Basophils/Leukocytes Auto (Bld) [Pure # fraction] 0.0 E9/L Normal 0.0-0.2 [facility] Comment on above: Order Comment: Order Added by Discern Expert. Performed By: #### 2 406455, 5892073, [id number] #### [facility] [address] [place] [address] Eosinophils/100 WBC (Bld) 0.3 % Normal 0.0-8.0 [facility] Comment on above: Order Comment: Order Added by Discern Expert. Performed By: #### 2 277834, 7467375, [id number] #### [facility] [address] [place] [address] Eosinophils/Leukocytes Auto (Bld) [Pure # fraction] 0.0 E9/L Normal 0.0-0.5 [facility] Comment on above: Order Comment: Order Added by Discern Expert. Performed By: #### 2 812528, 3002907, [id number] #### [facility] [address] [place] [address] Lymphocytes/100 WBC (Bld) 19.1 % Normal 14.0-50.0 [facility] Comment on above: Order Comment: Order Added by Discern Expert. Performed By: #### 2 166997, 5767641, [id number] #### [facility] [address] [place] [address] Lymphocytes/Leukocytes Auto (Bld) [Pure # fraction] 1.4 E9/L Normal 1.0-4.0 [facility] Comment on above: Order Comment: Order Added by Discern Expert. Performed By: #### 2 182970, 3607279, [id number] #### [facility] [address] [place] [address] Monocytes/100 WBC (Bld) 6.4 % Normal 4.0-14.[address] [facility] Comment on above: Order Comment: Order Added by Discern Expert. Performed By: #### 2 068246, 2901205, [id number] #### [facility] [address] [place] [address] Monocytes/Leukocytes Auto (Bld) [Pure # fraction] 0.5 E9/L Normal 0.2-1.0 [facility] Comment on above: Order Comment: Order Added by Discern Expert. Performed By: #### 2 116235, 9298861, [id number] #### [facility] [address] [place] [address] Neutrophils/100 WBC (Bld) 73.9 % Normal 36.0-75.0 [facility] Comment on above: Order Comment: Order Added by Discern Expert. Performed By: #### 2 184919, 4286888, [id number] #### [facility] [address] [place] [address] Neutrophils/Leukocytes Auto (Bld) [Pure # fraction] 5.3 E9/L Normal 2.0-7.5 [facility] Comment on above: Order Comment: Order Added by Discern Expert. Performed By: #### 2 454699, 2227933, [id number] #### [facility] [address] [place] [address] BhCG Quanton 04-14-2020 [place] [address] m[IU]/mL High 1-3 [facility] Comment on above: Result Comment: GEST ATIONAL AGE HCG RANGE (mIU/mL) NON- <1-3 0.2-1 WEEKS 5-50 1-2 WEEKS 50-500 2-3 WEEKS 100-5,000 3-4 WEEKS 500-10,000 4-5 WEEKS 1,000-50,000 5-6 WEEKS 10,000-100,000 6-8 WEEKS 15,000-200,000 8-12 WEEKS 10,000-100,000 Performed By: #### 2 086124 #### [facility] [address] [place] [address] CBC w/ Auto Diffon Erythrocyte distribution width (RBC) [Ratio] 13.0 % Normal 10.9-14.2 [facility] Comment on above: Performed By: #### 2 345664, 7234973, [id number] #### [facility] [address] [place] [address] Hematocrit (Bld) [Volume fraction] 34.6 % Normal 34.0-46.0 [facility] Comment on above: Performed By: #### 2 977971, 1299891, [id number] #### [facility] [address] [place] [address] Hemoglobin (Bld) [Mass/Vol] 11.6 g/dL Low 12.0-16.0 [facility] Comment on above: Performed By: #### 2 190813, 6434980, [id number] #### [facility] [address] [place] [address] MCH (RBC) [Entitic mass] 29.8 pg Normal 27.0-34.0 [facility] Comment on above: Performed By: #### 2 946894, 6086081, [id number] #### [facility] [address] [place] [address] MCHC (RBC) [Mass/Vol] 33.4 g/dL Normal 31.4-36.0 [facility] Comment on above: Performed By: #### 2 099366, 9141521, [id number] #### [facility] [address] [place] [address] MCV (RBC) [Entitic vol] 89.2 fL Normal 80.0-100.0 [facility] Comment on above: Performed By: #### 2 950349, 0374081, [id number] #### [facility] [address] [place] [address] Platelet mean volume (Bld) [Entitic vol] 7.8 fL Normal 6.4-10.8 [facility] Comment on above: Performed By: #### 2 604419, 8677387, [id number] #### [facility] [address] [place] [address] Platelets (Bld) [#/Vol] 326.0 E9/L Normal 150.0-500.0 [facility] Comment on above: Performed By: #### 2 337048, 9923510, [id number] #### [facility] [address] [place] [address] RBC (Bld) [#/Vol] 3.9 E12/L Low 4.3-5.9 [facility] Comment on above: Performed By: #### 2 995455, 4529842, [id number] #### [facility] [address] [place] [address] WBC corrected for nucl RBC Auto (Bld) [#/Vol] 7.2 E9/L Normal 4.0-11.0 [facility] Comment on above: Performed By: #### 2 985277, 8259232, [id number] #### [facility] [address] [place] [address] Consent for Treatmenton 03-22 Consent for Treatment [id number] 10 [id number] #1.00CD:127 Normal [facility] MxoF3nsv 04-14-2020 HbA1c (Bld) [Mass fraction] 4.8 % Normal <=5.9 [facility] Comment on above: Performed By: #### 2 268070, 7909105, [id number] #### [facility] [address] [place] [address] Patient Educationon 04-14-19 21 Patient Education How [...] Document Reviewed: 07/23/2008 ExitCare? Patient Information ?2013 [employer]. Obstetrics and Gynecology Eating Plan for [...] your (t (more content not included)... Normal [facility] U Drug Screenon 04-14-2020 Amphetamines Screen method >1000 ng/mL Ql (U) Negative Normal Negative [facility] Comment on above: Result Comment: Nega tive Cutoff: <1000 ng/mL Performed By: #### 2 956914 #### [facility] [address] [place] [address] Barbiturates Screen Ql (U) Negative Normal Negative [facility] Comment on above: Result Comment: Nega tive Cutoff: <200 ng/mL Performed By: #### 2 616461 #### [facility] [address] [place] [address] Benzodiazepines Ql (U) Negative Normal Negative [facility] Comment on above: Result Comment: Nega tive Cutoff: <200 ng/mL Performed By: #### 2 850243 #### [facility] [address] [place] [address] Cocaine Ql (U) Negative Normal Negative [facility] Comment on above: Result Comment: Nega tive Cutoff: <300 ng/mL Performed By: #### 2 913123 #### [facility] [address] [place] [address] Opiates Screen Ql (U) Negative Normal Negative [facility] Comment on above: Result Comment: Nega tive Cutoff: <300 ng/mL Performed By: #### 2 029036 #### [facility] [address] [place] [address] Phencyclidine Screen method >25 ng/mL Ql (U) Negative Normal Negative [facility] Comment on above: Result Comment: Nega tive Cutoff: <25 ng/mL These drug screen results are to be used for medical (i.e., treatment) purposes only. Unconfirmed drug screening results must not be used for non-medical purposes (e.g., employment testing, legal testing). Performed By: #### 2 691245 #### [facility] [address] [place] [address] Tetrahydrocannabinol Screen method >50 ng/mL Ql (U) Negative Normal Negative [facility] Comment on above: Result Comment: Nega tive Cutoff: <50 ng/mL Performed By: #### 2 925907 #### [facility] [address] [place] [address] RAD - Ultrasound Reporton RAD - Ultrasound Report [id number] #1.00CD:127 Normal [facility] Reportson 03-14-2020 Lab Reports [id number] #1.00CD:127 Normal [facility] Ambulatory Clinical Summaryo n 02-29-2020 Ambulatory Clinical Summary {[id number]-98}CD:[id number] Normal [facility] Ambulatory Clinical Summary {[id number] 3a-73-[id number]}CD:847107 Normal [facility] Obstetrics Office/Clinic Not jasmine 02-29-2020 Obstetrics Office/Clinic Note Chief Complaint OB 15w 2d, feeling flutters, occ. [place] Obstetric History History (1,0,0,2) # 1 Baby 1 Outcome Date: 2008 Outcome: Live Outcome or Result: Vaginal Gender: Female Gest Age: 41 weeks Wt: 3232 g [place] [facility] [place] Labor: -- Child's Name: -- Baby's [...] trimester) Ordered: Office Visit Level 4 Est 04015 TH 2. Obesity complicating , second trimester (O99.212: Obesity complicating , second trimester) Ordered: Office Visit Level 4 Est 04876 TH 3. 15 weeks gestation of (Z3A.15: 15 weeks gestation of ) Ordered: Office Visit Level 4 Est 03694 TH Follow-up With When Contact Information Funmilayo ESCOBEDO MD In [address] [place] [address]- Additional Instructions: Problem List/Past Medical History Ongoing [...] Protein Urine Dipstick: Negative (02/29/20 15:46:00) Normal [facility] Comment on above: Result Comment: Elec [...] 02/04/2006 Document Revised: 04/28/2012 Document Reviewed: 05/19/2009 [facility] [place] Patient Information ?2013 [employer], [facility]. Family Medicine How a Baby Grows During [...] flex an (more content not included)... Normal [facility] Physician Referralon 021 Physician Referral [id number] #1.00CD:127 Normal [facility] RAD - Ultrasound Reporton RAD - Ultrasound Report [id number] #1.00CD:127 Normal [facility] Physician Referralon 020 Physician Referral [id number] #1.00CD:127 Normal [facility] Physician Referralon 020 Physician Referral [id number] #1.00CD:127 Normal [facility] Chlamydia/Gonococcus, NAAon 01-30-2020 C. trachomatis rRNA KAIDEN+probe Ql (Unsp spec) Negative Invalid Interpretation Code Negative [facility] Comment on above: Performed By: #### 2 756344, 1636390, [id number] #### [facility] [address] [place] [address] N. gonorrhoeae rRNA KAIDEN+probe Ql (Unsp spec) Negative Invalid Interpretation Code Negative [facility] Comment on above: Result Comment: Perf ormed at: =G [facility] [address] [facility] [place] [id number] MD Kehinde Rivero Performed By: #### 2 219396, 9901011, [id number] #### [facility] [address] [place] [address] Coding Summary.on 01-29-2020 Coding Summary. CODING DATE: 01/29/2020 FINAL [facility] STATUS: Home (Routine DC) PAYOR: Self [...] Garcia Date Saved: 01/29/2020 01:52 pm Normal [facility] Ambulatory Clinical Summaryo n 01-27-2020 Ambulatory Clinical Summary {[id number]}CD:[id number] Normal [facility] Obstetrics Office/Clinic Not jasmine 01-27-2020 Obstetrics Office/Clinic Note Chief Complaint 1st OB 10 Weeks 4 days. Some Nausea. Obstetric History History (1,0,0,2) # 1 Baby 1 Outcome Date: 2008 Outcome: Live Outcome or Result: Vaginal Gender: Female Gest Age: 41 weeks Wt: 3232 g [place] [facility] [place] Labor: -- Child's Name: -- Baby's [...] drug use. Last pap 2-13-18, NILM. 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 Review of Systems Constitutional: No fever, No [...] during or after office hours. Referral to MFM and will defer to them for genetic testin (more content not included)... Normal [facility] Comment on above: Result Comment: Elec [...] Document Reviewed: 07/23/2008 ExitCare? Patient Information ?2013 [employer]. [facility] January 27, 2020 MYA MYLES [address] [place] [address] MYA MYLES 1990 Our patient Mya Myles is with a single IUP. EDC is 08/20/[address] [address] [facility] Coding Summary.on 01-22-2020 Coding Summary. CODING DATE: 01/22/2020 [facility] STATUS: Home (Routine DC) PAYOR: Self [...] Fleming Date Saved: 01/22/2020 08:46 am Normal [facility] US 1st Trimesteron 01-11-2020 1st Trimester [...] corresponding gestational age +/- 1 week are: [place] Rump Length: 1.8 cm Composite Ultrasound Age: [...] Transabdominal Ultrasound Performed Size = Dates Normal [facility] Ambulatory Clinical Summaryo n 01-07-2020 Ambulatory Clinical Summary {[id number] [id number]}CD:[id number] Normal [facility] Ambulatory Clinical Summaryo n 01-06-2020 Ambulatory Clinical Summary {[id number]-[id number]}CD:[id number] Normal [facility] BhC Quanton 01-06-2020 HCG.beta subunit Qn 578705 m[IU]/mL High 1-3 [facility] Comment on above: Result Comment: GEST ATIONAL AGE HCG RANGE (mIU/mL) NON- <1-3 0.2-1 WEEKS 5-50 1-2 WEEKS 50-500 2-3 WEEKS 100-5,000 3-4 WEEKS 500-10,000 4-5 WEEKS 1,000-50,000 5-6 WEEKS 10,000-100,000 6-8 WEEKS 15,000-200,000 8-12 WEEKS 10,000-100,000 Performed By: #### 2 608521, 0884189, [id number] #### [facility] [address] [place] [address] Consent for Treatmenton 12-19 Consent for Treatment [id number] #1.00CD:127 Normal [facility] Gynecology Office/Clinic Not jasmine 01-06-2020 Gynecology Office/Clinic Note Chief Complaint Confirmation of , Nausea Some Vomitting. Has had Dark pink Spotting, First OB paper work added . Obstetric History History (1,0,0,2) # 1 Baby 1 Outcome Date: 2008 Outcome: Live Outcome or Result: Vaginal Gender: Female Gest Age: 41 weeks Wt: 3232 g Hospital: [facility] Labor: -- Child's Name: -- Baby's [...] order subsequent US. Plan to refer to [facility] d/t hx child with congenital lymphedema. [...] test, result positive) Ordered: HCG, Urine POC 60445 Follow-up No qualifying data available Problem List/Past [...] Results HCG, Urine: Positive (01/06/20 09:31:00) Normal [facility] Comment on above: Result Comment: Elec tronically Signed By: RHONDA DICKEY, Caroline\.rosey\Date and Time Signed: 01/06/20 10:17 EST Progesteroneon 01-06-2020 Progesterone [Mass/Vol] 18.00 ng/mL Invalid Interpretation Code [facility] Comment on above: Result Comment: REFE RENCE RANGE Males 0.14-2.06 ng/mL Non- Females Follicular 0.10-0.60 ng/mL Luteal 3.00-17.5 ng/mL Midluteal 3.30-18.6 ng/mL Post-Menopausal 0.10-0.40 ng/mL First Trimester 8.30-66.5 ng/mL Second Trimester 18.9-66.1 ng/mL Third Trimester 35.8-312.4 ng/mL Performed By: #### 2 093717, 2489041, [id number] #### [facility] [address] [place] [address] Coding Summary.on 12-14-2019 Coding Summary. CODING DATE: 12/14/2019 FINAL [facility] STATUS: Home (Routine DC) PAYOR: Self [...] Garcia Date Saved: 12/14/2019 02:13 pm Normal [facility] ED Note-Physicianon 12-14-19 ED Note-Physician Basic Information Time Seen: Kate MESA, Gege Ryan. 12/13/2019 19:14 Chief Complaint pt to ED with c/o consuming plastic from a burger at [employer] today. pt is . denies complaints History of Present Illness This patient presents emergency department after ingesting some type of plastic while eating a sandwich at [employer]. She states she was at [employer] restaurant. She bit down on something hard [...] Blackwell In 3 days 12/16/2019 EDT [address] [facility] [place] [address]- Business (1) Additional Instructions: Patient Education Swallowed Foreign Body, Adult, Wkxu-pb-Ahha Problem List/Past Medical History Ongoing Ovarian cyst Historical Medications Inpatient No active inpatient medications Home Bactroban 2% Cream, 1 ced, Topical, TID Greenwood 325 mg-5 mg oral tablet, 1 tab(s), Oral, q4hr, PRN Allergies No Known Allergies Social History Alcohol - Denies Alcohol Use, 11/21/2009 Substance Abuse - Denies Substance Abuse, 11/21/2009 Tobacco - Denies Tobacco Use, 11/21/2009 Family History Diabetes mellitus type 2: Mother and Father. Hypertension: Mother and Father. Lab Results No qualifying data available. Diagnostic Results No qualifying data available. Normal [facility] Comment on above: Result Comment: Elec tronically Signed By: Gege Love PA-C\.br\Date and Time Signed: 12/13/19 19:34 EDT\.br\Electronically Co-Signed By: Ed Jerome MD\.br\Date and Time Co-Signed: 12/14/19 05:14 EDT Consent for Treatmenton 11-19 Consent for Treatment [id number] #1.00CD:127 Normal [facility] Discharge Instructionson Discharge Instructions [id number] [id number]#1.00CD:127 Normal [facility] ED Clinical Summaryon 2019 ED Clinical Summary [address] [address] ED Clinical Summary Person Information Name: MYA MYLES [place] Age: 29 Years : 1990 Sex: Female Language: Colombian PCP: Chao Blackwell III, DO Marital Status: Single MRN: Visit Id: Visit Reason: Medical screening exam; CONSUMED PLASTIC IN A BURGER FROM [facility], APRX 6-8 WEEKS Speciality: Acuity: 4 Enc [...] 12/13/2019 19:44:03 12/13/2019 19:44:03 12/13/2019 19:44:03 ADDRESS: [address] [place] [address] [address] [place] [phone] [facility] DOC NOTES: MEDICAL INFORMATION: Prescriptions Given: Medications to Continue with No Changes Other Medications acetaminophen-hydroc odone (Greenwood 325 mg-5 mg oral tablet) 1 Tablets By Mouth every 4 hours as needed for pain. Refills: 0. mupirocin topical (Bactroban 2% Cream) 1 Application Topical 3 times a day. Refills: 0. PATIENT EDUCATION INFORMATION: Instructions: Swallowed Foreign Body, Adult, Dgsa-yk-Ayxb Follow up: With: Address: When: Chao Blackwell [address] [place] [address], [facility] [place] [address] Business (1) In 3 days 12/16/2019 DIAGNOSIS: 1:Ingestion of foreign body Normal [facility] ED Patient Education Noteon 12-13-2019 ED [...] Document Reviewed: 05/22/2011 ExitCare? Patient Information ?2015 [employer]. This information is not intended to replace advice given to you by your health care provider. Make sure you discuss any questions you have with your health care provider. Normal [facility] ED Patient Summaryon 020 ED Patient Summary [facility] [address] [place], [place] [address] Patient Discharge Instructions Person Information Name: MYA MYLES Age: 29 Years Arrival Date: 12/13/2019 18:29:24 Discharge Diagnosis: 1:Ingestion of foreign body Primary Care Physician: Chao Blackwell III, DO Provider Information Primary Provider: Advanced Structurer:None The exam and treatment you received in the Emergency Department were for an urgent problem and are not intended as complete care. It is important that you follow up with a doctor, nurse practitioner, or physician?s grooming assistant for ongoing care. If your symptoms [...] Follow-up Instructions: With: Address: When: Chao Blackwell [address] [place] [address], [place] [address] Business (1) In 3 days 12/16/2019 In the event that this physician does not participate in your insurance network, please consult with your insurance company to find a nearby participating provider. Patient Education Materials: Swallowed Foreign Body, Adult, Lcfn-es-Ezgu A MESSAGE TO ALL PATIENTS REGARDING OPIOIDS PRESCRIPTION OPIOIDS: WHAT YOU NEED TO KNOW Prescription opioids can be used to help relieve exttegje-hi-fmkeha pain and are often prescribed following a [...] be struggling with addiction, tell your health ocular care technician and ask for guidance or call [facility]?S National Helpline at 4-563-527-LJYQ. (more content not included)... Normal [facility] Vital Signs Date Time Vital Sign Value Performing Clinician Rene hernandez 12-26-2023 15:59-0500 Body mass index (BMI) [Ratio] 35.85 kg/m2 Catherine TRACY Work Phone: [facility] 12-26-2023 15:59-0500 Body weight 88.91 kg Catherine TRACY Work Phone: [facility] 12-26-2023 15:59-0500 Diastolic blood pressure 70 mm[Hg] Catherine TRACY Work Phone: [facility] 12-26-2023 15:59-0500 Systolic blood pressure 110 mm[Hg] Catherine TRACY Work Phone: [facility] 12-12-2023 09:52-0400 Body mass index (BMI) [Ratio] 35.48 kg/m2 Deven Russel DO Work Phone: [facility] 12-12-2023 09:52-0400 Body weight 88 kg Deven Russel DO Work Phone: [facility] 12-12-2023 09:52-0400 Diastolic blood pressure 68 mm[Hg] Deven Russel DO Work Phone: [facility] 12-12-2023 09:52-0400 Systolic blood pressure 110 mm[Hg] Deven Russel DO Work Phone: [facility] 11-27-2023 15:35-0400 Body mass index (BMI) [Ratio] 34.57 kg/m2 Catherine TRACY Work Phone: [facility] 11-27-2023 15:35-0400 Body weight 85.73 kg Catherine TRACY Work Phone: [facility] 11-27-2023 15:35-0400 Diastolic blood pressure 76 mm[Hg] Catherine TRACY Work Phone: [facility] 11-27-2023 15:35-0400 Systolic blood pressure 114 mm[Hg] Catherine TRACY Work Phone: [facility] Healthcare Encounters Encounter Date Encounter Type Care Provider Facility Start: 12-26-2023 End: 12-26-2023 flow sheet Catherine TRACY Work Phone: [facility] OB Comment on above: Third trimester preg faina; 36 weeks gestation of Start: 12-26-2023 End: 12-26-2023 ambulatory CATHERINE BAEZA Not Available Start: 12-26-2023 End: 12-26-2023 Bamboo flowsheet Catherine TRACY Work Phone: [facility] Start: 12-26-2023 End: 12-26-2023 Bamboo flowsheet Catherine TRACY Work Phone: [facility] Start: 12-24-2023 End: 12-24-2023 Orders Only Liliam Parra RN Maternal- Medicine at [facility] Comment on above: Polyhydramnios, ante , single or unspecified fetus (Primary Dx); Lymphedema; Family history of congenital anomaly Start: 12-23-2023 End: 12-23-[address] Maternal- Medicine at [facility] Start: 12-12-2023 End: 12-12-2023 Bamboo flowsheet Deven Russel DO Work Phone: [facility] Start: 12-12-2023 End: 12-12-2023 Bamboo flowsheet Deven Russel DO Work Phone: [facility] Start: 12-12-2023 End: 12-12-2023 ambulatory DEVEN RUSSEL Not Available Start: 12-12-2023 End: 12-12-2023 flow sheet Deven Russel DO Work Phone: [facility] Comment on above: Third trimester preg faina; 34 weeks gestation of ; Accessory placenta, third trimester Start: 12-09-2023 End: 12-09-[address] Maternal- Medicine at [facility] Start: 12-06-2023 End: 12-06-[address] Maternal- Medicine at [facility] Start: 12-04-2023 End: 12-04-2023 Office consultation new/estab patient 40 min Alysia Lee MD Work Phone: Maternal- Medicine at [facility] Comment on above: Obesity affecting pr egnancy in second trimester, unspecified obesity type (Primary Dx); Polyhydramnios, antepartum, single or unspecified fetus Start: 12-04-2023 End: 12-04-2023 ambulatory MARINA [facility] Start: 11-27-2023 End: 11-27-2023 ambulatory CATHERINE BAEZA [...] Available Start: 10-08-2023 End: 10-08-2023 ambulatory DEVEN [facility] Start: 09-09-2023 End: 09-09-2023 ambulatory CATHERINE BAEZA Not Available Start: 09-06-2023 End: 09-06-2023 ambulatory DEVEN R [facility] Start: 08-12-2023 End: 08-12-2023 ambulatory DEVEN [...] Date Procedure Procedure Detail Performing Clinician Start: 12-26-2023 Urnls dip stick/tabl et rgnt non-auto w/o micrscp Catherine TRACY Work Phone: Start: 12-12-2023 Urnls dip stick/tabl et rgnt [...] congenital anomaly Expected: 12/23/2024 (Approximate), Expires: 12/23/2024 [facility] Work Phone: Comment on above: Expected: 12/23/2024 (Approximate), Expires: 12/23/2024 Start: 12-03-2024 Tobacco Screening Tobacco Screening [facility] Start: 09-05-2024 Adult BMI Screening Adult BMI Screen ing [facility] Start: 01-01-2024 End: 01-01-2024 Patient encounter procedure 01/01/2024 11:00 AM EST Appointment [facility] [address] [place] [id number] [facility] Start: 12-26-2023 End: 12-26-2023 Patient encounter procedure 12/26/2023 3:50 PM EST Routine [facility] [address] [place] [address] Catherine Baeza PA [address] [place], [facility] Arrived [facility] Comment on above: Arrived Start: 12-26-2023 End: 12-25-2024 Strep B DNA probe, amplification Strep B DNA probe, amplification Lab Routine Third trimester Expected: 12/26/2023 (Approximate), Expires: 12/25/2024 [facility] Work Phone: Comment on above: Expected: 12/26/2023 (Approximate), Expires: 12/25/2024 Start: 12-25-2023 End: 12-25-2023 Patient encounter procedure 12/25/2023 3:50 PM EST Routine [facility] [address] [place] [address] Catherine Baeza PA [address] [place], [place] [id number] [facility] Start: 12-12-2023 End: 12-12-2023 Patient encounter procedure 12/12/2023 9:30 AM EDT Routine [facility] [address] [place] [address] Deven Goode DO [address], [place] [id number] [facility] Start: 10-20-2023 Influenza vaccination Influenza Vacc ine [facility] Start: 10-20-2019 Influenza vaccination Flu vaccine (# 1) [facility], [place] Start: 2013 Screening for malign ant neoplasm of cervix Pap Smear [facility] Start: 06-01-2011 DTaP,Tdap and Td Vaccines (1 - Tdap) DTaP,Tdap and Td Vaccines (1 - Tdap) [facility] Start: 2010 Adult BMI Follow Up Plan Adult BMI Follow Up Plan [facility] Start: 2004 Depression Screening Depression Scre ening [facility] Bacteria identified in Urine by Culture Urine culture Microbiology Routine Dysuria Ordered: 11/27/2023 [facility] Work Phone: Comment on above: Ordered: 11/27/2023 Payers Date Payer Category Payer [facility] BCBS [id number] 2022 [facility] Managed Care - Other [employer] [id number] 2022 Unknown BCBS BCBS [id number] 2022-Present [phone] [address] [place] [address] [id number] 2022 Unknown [id number] 1992 Unknown [id number] 2.16.840.1.396743.3.579.2. 593 1992 Unknown [id number] 2.16.840.1.132695.3.579.2. 593 1992 Unknown [id number] 2.16.840.1.117191.3.579.2. 128 1992 Unknown [id number] 2.16840.1.255934.3.579.2. 1285 1992 Unknown [id number] 2.16840.1.972207.3.579.2. 1285 1992 Unknown [id number] 2.840.1.976601.3.579.2. 1285 1992 Unknown [id number] 2.16840.1.162231.3.579.2. 1285 1992 Unknown [id number] 2.16840.1.057178.3.579.2. 1258 1992 Unknown [id number] 2.16840.1.719034.3.579.2. 1258 1992 Unknown [id number] 2.840.1.686732.3.579.2. 1258 1992 Unknown [id number] 2.16.840.1.507559.3.579.2. 1258 1992 Unknown [id number] 2.16.840.1.796276.3.579.2. 1258 1992 Unknown [id number] 2.16.840.1.140733.3.579.2. 1258 1992 Unknown [id number] 2.16840.1.486647.3.579.2. 1258 1992 Unknown [id number] 2.16.840.1.981462.3.579.2. 1259 1992 Unknown [id number] 2.16.840.1.458152.3.579.2. 1259 1992 Unknown [id number] 2.16.840.1.080362.3.579.2. 1259 1959 Unknown [id number] Social History Date Type Detail Facility Tobacco smoking stat us [facility] Unknown if ever smoked [facility] Start: 1992 [facility] Start: 07-30-2023 End: 09-06-2023 Tobacco smoking status WVIS Never smoked tobacco [facility] Start: 07-30-2023 End: 09-06-2023 Tobacco use and exposure Smokeless tobacco non-user [facility] Start: 07-30-2023 End: 12-04-2023 History of Social function [facility] Start: 07-30-2023 End: 12-04-2023 Tobacco use panel [facility] Start: 05-01-2023 [facility] Start: 12-04-2023 Alcoholic beverage intake Ex-drinker (finding) [facility] Within the past 12 months we worried whether our food would run out before we got money to buy more. Never True [facility] Start: 08-15-2023 Sex Female (finding) [facility] Clinical Notes 04-21-2020 to 12-26-2023 DEMARCUS Ross - 12/26/2023 3:50 PM ESTTelephone Encounter - [address] - 12/23/2023 3:36 PM ESTTelephone Encounter - [address] - 12/23/2023 3:36 PM Brea Bravo LPN - 12/12/2023 9:30 AM EDT Note Date & Type Note Facility 12-26-2023 History of Presen t illness Narrative Reason [...] PROBLEMS Active Ambulatory Problems Diagnosis Date Noted Accessory placenta, third trimester 12/12/2023 34 weeks gestation of 12/12/2023 Third trimester 12/12/2023 Resolved Ambulatory Problems Diagnosis Date Noted No Resolved Ambulatory Problems Past Medical History: Diagnosis Date ADHD (attention deficit hyperactivity disorder) ([facility]) HISTORY PAST MEDICAL HISTORY SOCIAL HISTORY Past Medical History: Diagnosis Date ADHD (attention deficit hyperactivity disorder) ([facility]) Social History Tobacco Use Smoking status: Never Smokeless tobacco: Never Substance Use Topics Alcohol use: Not on file Drug use: Not on file FAMILY HISTORY No family history on file. SURGICAL HISTORY No past surgical history on file. REVIEW OF SYSTEMS Review of Systems: Review [...] reviewed. Vitals: Estimated body mass index is 35.85 kg/m as calculated from the following: Height as of 05/16/22: 5' 2 . Weight as of this encounter: 196 lb. BP: 110/70 Patient's last menstrual period was 04/10/2023. ASSESSMENT & PLAN ICD-10-CM 1. Third trimester Z34.93 POCT urinalysis dipstick manually resulted Strep B DNA probe, amplification 2. 36 weeks gestation of Z3A.36 Patient is doing well but has complaints of being tired and having maternal discomfort due to . Patient verbalized frequent movement and was instructed to perform kick counts three times per day. labor precautions were given, LARC consent was signed/declined, and GBS was obtained. Cervical check was performed and patient is 1cm dilated. Orders Placed This Encounter Procedures Strep B DNA probe, amplification POCT urinalysis dipstick manually resulted Follow Up: Patient is to return to office in 1 week for routine OB appointment Documented by Terra Blackwell MA on behalf of: DEMARCUS Ross documented in this encounter [facility] 12-23-2023 Miscellaneous Notes CALLED PT AND LEFT A MESSAGE FOR HER TO MAKE A THIRTY MIN GROWTH U/S WITH MFM IN [place] OR HERE AT [facility]. THANK YOU LOYDA documented in this encounter [facility] 12-23-2023 Telephone encounter Note CALLED PT AND LEFT A MESSAGE FOR HER TO MAKE A THIRTY MIN GROWTH U/S WITH MFM IN [place] OR HERE AT [facility]. THANK YOU LOYDA [facility] 12-12-2023 History of Presen t [...] Diagnosis Date ADHD (attention deficit hyperactivity disorder) ([facility]) HISTORY PAST MEDICAL HISTORY SOCIAL HISTORY Past Medical History: Diagnosis Date ADHD (attention deficit hyperactivity disorder) ([facility]) Social History Tobacco Use Smoking [...] nursing note reviewed. Exam conducted with a icing machine operator present. Vitals: Estimated body mass index is [...] antibiotic for UTI. Patient voiced that at [facility] they discussed extra fluid & reassurance [...] Deven Goode DO documented in this encounter [facility] 12-09-2023 Miscellaneous Notes I LEFT A MESSAGE FOR PT TO CALL ME, I WILL CALL PT BACK TO SCHEDULE HER FOR A GROWTH U/S, ALSO A VIDEO VISIT WITH ONE OF THE DRS documented in this encounter [facility] 12-09-2023 Telephone encounter Note I LEFT A MESSAGE FOR PT TO CALL ME, I WILL CALL PT BACK TO SCHEDULE HER FOR A GROWTH U/S, ALSO A VIDEO VISIT WITH ONE OF THE DRS [facility] 12-06-2023 Miscellaneous Notes I LEFT A MESSAGE FOR PT TO CALL ME SO WE CAN SCHEDULE A GROWTH U/S. PT THINKS SHE ONLY NEEDS U/S AT PRIMARY OB OFFICE. CATHERINE Zehra SAID SHE NEEDS TO COME HERE. THANK YOU documented in this encounter [facility] 12-06-2023 Telephone encounter Note I LEFT A MESSAGE FOR PT TO CALL ME SO WE CAN SCHEDULE A GROWTH U/S. PT THINKS SHE ONLY NEEDS U/S AT PRIMARY OB OFFICE. CATHERINE Shahid SAID SHE NEEDS TO COME HERE. THANK YOU [facility] 12-04-2023 History of Presen t [...] mouth in the morning., Disp: , Rfl: [id number] ( 19) 29 mg iron- 1 [...] ALYSIA LEE MD documented in this encounter [facility] [employer] 11-27-2023 History of Presen t illness Narrative [...] Diagnosis Date ADHD (attention deficit hyperactivity disorder) ([facility]) HISTORY PAST MEDICAL HISTORY SOCIAL HISTORY Past Medical History: Diagnosis Date ADHD (attention deficit hyperactivity disorder) ([facility]) Social History Tobacco Use Smoking [...] Patient scheduled for US NEXT WEEK WITH [facility], orders for nst and bpp sent for starting Orders Placed This Encounter Procedures POCT urinalysis dipstick manually resulted Follow Up: Patient is to return to office in 2 weeks for routine OB appointment. Documented by Leah Mason on behalf of: DEMARCUS Ross documented in this encounter [facility] 08-16-2020 Note DATE OF DISCHARGE: 0 [...] complications. Course: Without complications. [facility], [facility] Dictated: 08/13/2020 #[id number] Typed: 08/15/2020 #[id number] cc: Sukhdeep Schaffer MD, [place] Comment on above: Result Comment: Elec tronically Signed By: Karime MACEDO, Sukhdeep Olivera\.br\Date and Time Signed: 08/16/20 08:09 EDT 08-05-2020 Note The following Patien t Education Materials have been given to the patient: EducationMaterial [facility] 08-04-2020 Note Patient: LAZARO MYLES Age: [...] Attention deficit hyperactivity disorder / SNOMED CT 7549498363 / Confirmed Chronic fatigue syndrome / SNOMED CT 67992057 / Confirmed Depression during / SNOMED CT 5301105656 / Confirmed Insomnia / SNOMED CT 797487230 / Confirmed Obesity / ICD-9-CM 278.00 / Possible Obesity complicating , third trimester / SNOMED CT 6407705478 / Confirmed Ovarian cyst / SNOMED CT 370714982 / Confirmed / SNOMED CT 654194688 / Confirmed labor / Patient Care / Confirmed Supervision of high risk in third trimester / SNOMED CT 47053329 / Confirmed Histories History History (1,0,0,2) # 1 Baby 1 Outcome Date: 2008 Outcome: Live Outcome or Result: Vaginal Gender: Female Gest Age: 41 weeks Wt: 3232 g [facility] Labor: -- Child's Name: -- Baby's [...] Use (11/21/2009) DENIES 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 Home/Environment Lives with Children, Significant other. [...] hearing, Oral mu (more content not included)... [facility] Comment on above: Result Comment: Elec tronically Signed By: LAURA MACEDO, Funmilayo Ryan\.br\Date and Time Signed: 08/04/20 13:03 EDT 07-31-2020 Note The following Patien t Education Materials have been given to the patient: [facility] 07-26-2020 Note The following Patien t Education Materials have been given to the patient: [facility] 07-11-2020 Note HOSPITAL REGULATIONS : ALL [...] for further cervical progression. Sukhdeep Schaffer MD, [facility] Dictated: 07/08/2020 #[id number] Typed 07/08/2020 #[id number] cc: Sukhdeep Schaffer MD, [facility] Comment on above: Result Comment: Elec tronically Signed By: Karime MACEDO, Sukhdeep Olivera\.br\Date and Time Signed: 07/11/20 07:40 EDT 07-08-2020 Note The following Patien t Education Materials have been given to the patient: [facility] Note The following Patien t Education Materials have been given to the patient: [facility] Evaluation note Diagnosis 32 weeks gestation of Third trimester state, incidental Dysuria [facility] Diagnosis Obesity affecting in second trimester, unspecified obesity type- Primary Polyhydramnios, antepartum, single or unspecified fetus [facility] Diagnosis Third trimester state, incidental 34 weeks gestation of Accessory placenta, third trimester [facility] Diagnosis Polyhydramnios, antepartum, single or unspecified fetus- Primary Lymphedema Other noninfectious lymphedema Family history of congenital anomaly Family history of congenital anomalies [facility] Diagnosis Third trimester state, incidental 36 weeks gestation of documented in this encounter [facility] HealthcareInstructionsNot on filedocumented in this encounterPro[facility] SystemInstructionsNot on filedocumented in this encounterProMediL[facility] SystemInstructionsNot on filedocumented in this [facility]Pro[facility] Summary Purpose Family History No Family History Records FoundNo Family History Records FoundNo Family History Records FoundNo Family History Records Found Advance Directives No Advanced Directives Records FoundNo Advanced Directives Records FoundNo Advanced Directives Records FoundNo Advanced Directives Records Found Additional Source Comments INFORMATION SOURCE (unrecogn ized section and content) DATE CREATED AUTHOR 09/15/2020 [facility] DATE CREATED AUTHOR AUTHOR'S ORGANIZ ATION 06/29/2022 [facility] DATE CREATED AUTHOR AUTHOR'S ORGANIZ ATION 12/07/2023 [facility] DATE CREATED AUTHOR AUTHOR'S ORGANIZ ATION 12/28/2023 [facility] EPIC Reason for Visit (unrecogniz [...] BE BASED ON THE PRIMARY CLINICAL RECORDS. [employer] provides no warranty or guarantee of the accuracy or completeness of information in this document.
== END 2023-12-24 20:15 | disposition home or self-care (01) ==
LOC: US 07:25 → FBC 19:48
PROVIDERS: Visit Provider Obstetrics & Gynecology
DX: O36.63X0 Maternal care for excessive fetal growth, third trimester, not applicable or unspecified (principal); Z3A.35 35 weeks gestation of pregnancy
CPT/HCPCS: 76818

== ENCOUNTER 2023-12-26 19:56 | Outpatient (REF) | payer BC, SELFPAY ==
--- OUTSIDE RECORDS SUMMARY | 2023-12-26 20:00 | XMS_ITS | CCD ---
Author Organization [facility] Care Team Providers Care Radiologist Name Role Phone Unavailable Primary Care Provider Unavailabl e RUSSEL ., DR WILKERSON Admitting Unavailable RUSSEL ., DR WILKERSON Attending Unavailable RUSSEL ., DR WILKERSON Consulting Unavailable BERKELEY, DR IRENE Dee Consulting Unavailable RUSSEL ., [...] aspirin 81 mg delayed release oral tablet (7 sources) Platelet Aggregation Inhibitor, Nonsteroidal Anti-inflammatory Drug [...] 7 days. 21 capsule 11/27/2023 12/04/2023 Active [id number] acid ( 19) 29 mg iron- 1 mg tablet,chewable (5 sources) [id number]-rezy-fbxmv acid ( 19) 29 mg iron- 1 [...] not elsewhere classified] Onset: 09-06-2023 Chronic Other diseases of veins and lymphatics (2 sources) Lymphedema; Translations: [Lymphedema, not elsewhere classified] 12-24-2023 Chronic Other nutritional; endocrine; and metabolic disorders [...] Polyhydramnios and other problems of amniotic cavity (9 sources) Polyhydramnios with problem; Translations: [Polyhydramnios, unspecified trimester, not applicable or unspecified] Onset: 12-04-2023 12-04-2023 Episodic Residual codes; unclassified (1 source) Gestation period, 32 weeks; Translations: [32 weeks gestation of ] 11-27-2023 Episodic Residual codes; unclassified (4 sources) Gestation period, 34 weeks; Translations: [34 weeks gestation of ] Onset: 12-12-2023 12-12-2023 Episodic Residual codes; unclassified (2 sources) FH: Congenital anomaly; Translations: [Family history of other congenital malformations, deformations and chromosomal abnormalities] 12-24-2023 Episodic Unclassified (1 source) 1st daughter born [...] UA Negative Negative - 4(70) +++ mg/dL [facility] Blood, UA Positive Negative - 50 [place]/mcL [facility] Comment on above: trace Clarity, UA Clear [facility] Color, UA Yellow [facility] Glucose, UA Negative Negative - 1999(110) ++++ mg/dL [facility] Interpretation and review of laboratory results Abnormal [facility] Ketones, UA Negative Negative - 160(16) ++++ mg/dL [facility] Leukocytes, UA Negative Negative - 500+++ Saeed/mcL [facility] Nitrite, UA Negative Negative - Positive [facility] pH, UA 7 5 - 9 [facility] Protein, UA Negative Negative - 1999(20) ++++ mg/dL [facility] Spec Grav, UA 1.02 1 - 1.03 [facility] Urobilinogen, UA 0.2 0.2 - 12 mg/dL [facility] Glucose random or fasting- P OCTon 12-04-2023 External Glucose Fasting Or Random (Fbs) 126 [facility] POCT Hemoglobin A1con 2023 HbA1c (Bld) [Mass fraction] 5.1 % 4 - 7 % [facility] Urinalysis macro (dipstick) panel (U)on 11-27-2023 Bilirubin, UA Negative Negative - 4(70) +++ mg/dL [facility] Blood, UA Negative Negative - 50 [place]/mcL [facility] Clarity, UA Cloudy [facility] Color, UA Yellow [facility] Glucose, UA Negative Negative - 2000(110) ++++ mg/dL [facility] Interpretation and review of laboratory results Normal [facility] Ketones, UA Negative Negative - 160(16) ++++ mg/dL [facility] Leukocytes, UA Negative Negative - 500+++ Saeed/mcL [facility] Nitrite, UA Negative Negative - Positive [facility] pH, UA 7.0 5 - 9 [facility] Protein, UA Negative Negative - 2000(20) ++++ mg/dL [facility] Spec Grav, UA 1.025 1 - 1.03 [facility] Urobilinogen, UA 0.2 0.2 - 12 mg/dL [facility] PAP ACOG PANEL 2: 21 to 29on 05-24-2022 . . Normal [facility] Comment on above: Performed By: #### [id number] #### [facility] [address] [place] [address] Dr. Michael Garrett Age Gdln ACOG Testing - [facility] Comment on above: Performed By: #### [id number] #### [facility] [address] [place] [address] Dr. Michael Garrett DIAGNOSIS: Comment [facility] Comment on above: Result Comment: NEGA TIVE FOR INTRAEPITHELIAL LESION OR MALIGNANCY. CELLULAR CHANGES ASSOCIATED WITH INFLAMMATION ARE PRESENT. Performed By: #### [id number] #### [facility] [address] [place] [address] Dr. Michael Garrett Methodology: Comment [facility] Comment on above: Result Comment: This liquid based ThinPrep(R) pap test was screened with the use of an image guided system. Performed By: #### [id number] #### [facility] [address] [place] [address] Dr. Michael Garrett Note: Comment [facility] Comment on above: Result Comment: The Pap smear is a screening test designed to aid in the detection of premalignant and malignant conditions of the uterine cervix. It is not a diagnostic procedure and should not be used as the sole means of detecting cervical cancer. Both false-positive and false-negative reports do occur. . Performed By: #### [id number] #### [facility] [address] [place] [address] Dr. Michael Garrett Performed by: Comment [facility] Comment on above: Result Comment: Francisco Otero, [employer] (ASCP) Performed By: #### [id number] #### [facility] [address] [place] [address] Dr. Michael Garrett Reflex Criteria: Comment Normal [facility] Comment on above: Result Comment: The HPV DNA reflex criteria were not met with this specimen result therefore, no HPV testing was performed. . Performed By: #### [id number] #### [facility] [address] [place] [address] Dr. Michael Garrett Specimen adequacy: Comment Normal [facility] Comment on above: Result Comment: Sati sfactory for evaluation. Endocervical and/or squamous metaplastic cells (endocervical component) are present. Performed By: #### [id number] #### [facility] [address] [place] [address] Dr. Michael Garrett US PELVIS AND TRANSVAGon [...] by: IRENE ZUÑIGA Date: 2022-05-18 07:45 Normal [facility] Nursing Assessmenton 021 Nursing Assessment [id number] #[id number] Normal [facility] Coding Summary.on 08-16-2020 Coding Summary. CD:[id number] Gh0bWw+PGhlYWQ+PE1FV VDoQ84dgCXndI9UC9eWF L3BAAJWYHXZKO8SFG2ad BV7NPrfH0ZwlyMp NggfiUQbBU76ZUo8XFR9 gYexXCcnaU9rkAIuN8q8 GcKxQL59qC09CMgdPAKw XzN6OmCtdynizZMr O6eyObDdbZWdUvp+PHRh YmxlIHdpZHRoPScxMDAl XcHjrDuqEK0xRr0bASHs LWNvbGxhcHNlOiBj r0dkGUJmFPqcYK6buYyy N1HcnEC0EVErp7v1Jm42 dHI+GABuSAO2zKkwAYpr e036LxVfb5dkXPS4 jKKkGKxmADS3S57qh8W8 FKKhFYOiNAO3vER4sJ8b sSzqkmpzL5DfrJYaHkP1 AIC6pBDciE9xyJft fjgstE6bHlb+X07LMT7G OBUNHS1KBhi7Z7IvOjel dHI+BR10NUWeOM14eZKe gENkw1ntsUw2LgRa VSLaVQP5eRykDOhgo4Rr RMLaW77klNZdd8B6NUQn nMxuyYYbUhStvDP2yV2f AStukdqhd8zbwxnz Ekjzv1bmla33fJ76I04d FOdqWAYoHAA8BOWvJYXq zRqtli0kjC6nGc4+IDxj a2aae6upyJj0XoTm LKFuurWsnBcaMCN4e8Wh Mo31Y1GbdQboh7LrZmd6 sv14vNAtk2E8uKL9KFja ILWouQ5wBVdiEoH0 FUMeWrRyyZ94vBTfFEwt Jk9kvFlglPovXE3jYNNj shijARRycU5pTJCnwZYy xBumSJ1sIQEatcye z477XyYeICL5KEMmzOGa V7XdkG2eJgEkJAFbNRGx B4DdmOThMPrrU101KPvo ZgZ6MMKzowJwE3Gs VAOnrBhoHhJ6p2O1Ut2P w3VturdeWKT9BNpbHER3 IrJ1PqHdBlM4K2AaKrd2 JNUheCpgES1vY7Sy AWAnndlwagaimXX4OEZs JJNdeM01jKWzYBjrQk1b h2Y8s543LEYaRXBvtN36 Ku9kaLsmALExjAAY cK3ekfvkp6lppdfiRsVs LMOwMBo6UEm5QICcrOyz ZyBsSAC3XzL8LLV4rSLw vU0noTbufndhuD4s Oyc+A42ovE5lCTR5MPQ6 nosxEBVzjzBtDL73LK19 E6OaGgvqtDPxgEU+PGRp dcJhbQnwOO1tXnDu f3mne8LfIDyzE8MeQZKx DPtsLii5XRJzJLW1cEI6 tY2wBHZlYLpnv7V0dCH3 C9EblgMtza5ll4fm JJGnFXliD52zmBQkq5N4 EONqiXJ7HBBcyJwdEbDw qL48Opm+YIVjhWwvr9Cg Lgqwv0vxp9aveOk6 IjMwJSIgdmFsaWduPSJ0 l3GtPq69O25nJDfrLOTw SCFgAMWrPWQiuDfglg1z hU3wMa9+PGNvbCB3 pOR0eH4pHVXdThZ7CAfp R006XtUxsETcOebwp3zc j0udtVl1ArSfXPFjcaJk aJfnKCH3w3OjCx05 D32bRIscZBXgIDWwGNCr BLZauPsjez7xvH6iFi9+ HT0ia2duyd46tL83nKU+ EJAnHLF2yYndQRji CZMttT8yWHnhEvK3SEGr GrVqzP84wTKuJTpoCq5o eTehkOsuJK3iXFHcrqpq l232AbNza0wsTUVu fCZfVJoyUWO8F55hz6K4 DXLoSIBxGAS8gDJ1aB7j bGlnbjogbGVmdDsgdmVy kKdlNDacDTrlC831 IHRvcDsnPlBhdGllbnQg JuWnZEq3I4WfQnz5JPDl dBlbAF3vpUXuJWooGl8k yWzwyTsnBT1uPSVj kzicb378TnElp0jlIBKs yTUeTGtkKFT9H91ej8J4 VNEiUMPsSOO9pYM9cS9p bGlnbjogbGVmdDsg gtCdsDoyRHxbSYuuB516 IHRvcDsnPkJpcnRoIERh zGX2BW44RZ43oAQtp5J2 mVN0W2LqJRZvspjo bucfaGL0QEWdAUFpbV33 Vd9nkYgnOa2qYASiWLN7 GMFqbFFdU1QncU1fJzSh FWBqXSHlW9ZjxIKk VMakZ348QXowGbX4ESQj onHlA8QuOBEkbDqzObV5 n4Y7Dn9KS2Y6AN35HE39 lGXwi7H6oTX0H3Jt GMNicbevjlywcEP0ZWIu PLMcrI90Xk4koMrjEi8c XQSbTLT0LJOsaNUzO9Qq aL6eKaHlIAWbFMXu J1OwaFOrYIsrR932IQoz VxG3JZAdffGnV6AoEKBu mSeuAdV2f8M6Ir1PRRe9 ET07IA26dPVks4H3 sUF1B3ZbTTTaheyxlbbh bYK9BWAvRMNgiF08Nl2t bYfkNw6kLSFqBPH4TRKc wTOwN8UowC9hLiKw OWOiGVVlV9LzkQEdRQmo D875TLcyNaJ3RBSqnnYp T2GcATSacXtwJyG5p3J4 Jr4CLSGzMX74VJJ5 dJZ3QY49HF09F9JxKxck dGFibGU+PHRhYmxlIHdp ZHRoPScxMDAlJyBzdHls TD2tKa6tJDFtXGJh zKerlSQvWwAsa2lvQVWg CTauLI6qaDpeK3VsnNF9 VNQyy1n0Br51K97gI8Ls dXA+MNLroAA0rQP0 eT6kSjXeAsL4QWaqN554 LjStlMFiBiamg3jos2fe wZw1OoQ4FASiekDlvDuh EVE9g4CvEs89B58m IHdpZHRoPSIxNSUiIHZh dTsftj7mlR6yNp8+PGNv bKF6xKW4aS4mUpGbPhU1 UXsiB602XsBgnKDb Pxvto1ooy5raiHv1LjUm TETtvlGmkWttZBZ6o2Sj Xg15G2ZtqVcao5KrYpf0 ss29qXJwn6F2aLU7 F9RdUAEpxbsycZNgcXuy YR9yYJQhhsxqWAVkeV2n VCIyF2o7XtJtKiC9WEir K3NtvjD8FKDliIEj OExxCRZ8V98pd6M7QDTc GRQvJAU7oUW3dQ4lwMnb bjogbGVmdDsgdmVydGlj ARuhVGybP697BAFx zPmbNILamC3vKGBkhBPp nBsxGQ6sEAPfxvkyLbYK AvgKWn4hHLKMFiUVM5Qs TDwvdGQ+PHRkIHN0 uKpwKIzbUBXoeX6nTCQn J9m8ZaAtBeO8WGyjQ7Cs WLXhrdotGp28eX8yYrYw QdM0CHvtB6GkosO9 NSUfeWQzXQlwAJE7A69i d7P5JGRhCYWtAYV7lYI7 bI1xjWmsfywewELuiGyg dmVydGljYWwtYWxp T023VIRxdYivClU3FrFi PlL8HKW1C5TfTuu2UQGs fZzoXD4vnPEbOUjjUo9c cZhxlZacST4xRPKv odrwKKAwiD2aTHSjyZLf lSscXZ7dOBRaniadz176 LyBxTZP4IGIvzDRnM0Ox jF6iQvFgZNYeKHSb N2MtbZZvXHinD069UZor ZjN6LUSkpbUtQ1QnFKYs nNiqZjI4p7C1Li7vLKGC ZWFyczwvdGQ+PHRk RWN9oQtfYZecFMUvzN4l BYDlF4g4PjInFlR5XCkj N7AcDDHqogmiBt43tD1p IgPmJzZ0OZvpM1Xj qwT1GFMndFHrUFewXYH7 W68lp1O7AVReOYPsOHJ0 fED0wF0ooDdrdsfyjVGw dDsgdmVydGljYWwt NHjiR120BPLrfDuaNxXn bWFsZTwvdGQ+PHRkIHN0 mRgiPEadYOLcaJ1yRMMx D1r9GsPyJmW4MQoh F1TeCQPgmbvdJg46iV5f GwMqOtZ7HZitF6YclfU9 XVNscRCsKBoyQAE5A76f u8G5FFYwTJZoFLF1 hTB1nS3elDqlsetkmMIx dDsgdmVydGljYWwtYWxp S134TEDanBcbCi56kLTh qDzxsaK2F6IaQeqo dHI+WD65HIQyVK67dRBr gZSjj7kocGe8ZnKaCTHc CUC4qQqgNWduj3SuQDFb R82njYPki1Q8HYRo wZnauEKdIuAtnPI4fH2z XNtfsrtgi3fjfzewFlmf e9riwq44mJ78I47vAVvl ZHRoPSIzMCUiIHZh iJsgcz9ayG5wUk0+PGNv uDT3kNP1uR1tCdQfKnY3 BYbvE941JdJwwCPsKlzv d0doy5hhyYz1MnDa LXQkjaOohXzmMYY2i3Ry Xg29Y82cPIopOBGbRGCx DIVlNVMyyAroxj5pjE4a Ii8+FO2fs1ltwi97 qE68mKD+BFFgTXG6eWvh DOriATFscC0eAWddJqL2 TSQhQuAasI20gJYdYOcs Sb7heAuklJfgPR1o FWPbcgrlp190VbAgf6xs SRUvwKBwKClcHYL0R98s h3W0ELXeJTTjOBT9hEV7 nT9zbZndbvkbyEOn dDsgdmVydGljYWwtYWxp X838CMAdvTulHjJgiDVl S8btizADOP7dVtrraUZ+ SXFbBGI3sPeiRPgj DBYipV1zIBYdJ1s0IpOc AcS4THlqX7NeqcC5PYBv xWLcYKSwmSJKyF8sqxvz j7evsysuCgIsRCVg LYk5PRg5IGMnzCttWzWi GRJ6UbT6KUP0qOCcfU4x lGvlguskvA4fJja+RklO OjwvdGQ+PHRkIHN0 rBttZEdoICNhvF0kBJCe S3m5JtUaTjK0SDahK0Ec ihN1FITvhPJwGGHhdHMZ zL8kowbju8wnuicu GeEiALDdKBm6DLn5SBPi iZlqRjIkKTP6JaP0LYT6 zKLfmN0riEhsmmxbbB7v Oyc+TVJOOjwvdGQ+ FGTfVVH7vRqeWDmnXIZf pW6xPNQpD8d5UfBjJuR2 EUovD0LjieT6IOKctGTk GCNesMMEjX9qvdqw h0vfmpyhJpWvUBAtLDr2 JFy7WMCjmKeyIiHmNYO6 ExN8UBG9pKPkcW8pmEso vvgjxA3wGuo+UGF5 SND4OF89SH48T1KzQscs dGFibGU+PHRhYmxlIHdp ZHRoPScxMDAlJyBzdHls BN5sVo6uZEFoMMJw bGxh (more content not included)... Normal [facility] Coding Summary.on 08-15-2020 Coding Summary. CD:[id number] Gh0bWw+PGhlYWQ+PE1FV ZEjR69wwPRxpH7ET9uLY Z3LLLPTQUZCNT7JHK6ee CJ7RSedZ6NakpPy GafupWKzDP70QGa4GAB4 zNdfDHoynQ5fqBEyR4u1 JhQqTL57aX38HYlkPCZb DpR3KmUwmsuxgMGn M2fjYoXppOAxXmb+PHRh YmxlIHdpZHRoPScxMDAl VrAfpZuzPY6oLp1xALEl LWNvbGxhcHNlOiBj s8zaFQPuLVmjCY3hfAvr D7MdzUC6NZWcp6m7Gi72 dHI+SRLfVDZ2vJhhLRit v986VzRkv1hwHMH1 nADwJOgnSVJ4G84qw3Z0 OQXeFAScSAH0eLL6qV9q vUqrbhccW1MgvUAyNmU8 RXN6xLDeoY7cePec vnvebX9zCsv+U32RCF2T LHEBYR2VNkx7K5BuSnur dHI+BJ76ZPFiFC46oEAe fRRwu2kuaJd8JlEn LSIgWGG7iUwxSGkxu6Cy MGBwT02ybADhj1Q2ONYk nRkpiBTsPoPgxFB7eE5a ORyzckkjt1rpkgei Avwcu0gene55eI30Z37f NQhxWVUdTTY5GAThVRRr rRevdz2agY0rQu6+IDxj g7ceh2bpaFc9AxHv CRNvsqCnqXtfIID8q7Up Vo88C4ZrvOipp8WgNaj3 pw43sJMqm5U3rMM1NMyj UWIhrZ6tCEnnPxH6 FVNfKgAmyV18pWNcOWap Kl4lnZusmZalJB2xKBHt evxpRKPidV1aQFKlpJBm wHwfAJ7lBCFvcrpc b649GoMlTET4TPFqgTEo B1IiqN0qUnHaMIZwNKDm W7FdhLDlNFhvJ661HDjz FgZ5NROmjfChJ2Yb YKNhcFmxWtZ9r6M7Op6E d2RjuhbgHFX0TXdgEKS5 PnV6PjUtFhU4W9LgVuf3 TCBlhOpfZK7bY1Qb HVMxmttnqygobLL8JCYq XYPfpU32dRJkQUwwAc1n q4S2e945RKNqMJUpmL24 Ju8fbGqcBFBecMYZ mX3rxrknt6gmkeaoQdEi CUJjBNu7YSe8BWMomWrc ZsGhCBZ5SrG1SJU1dZHx tT2zkLninhgevI5x Oyc+C51oiD4fUKX9OJU2 fzzwUDOfibAqMG43EF86 C7NxLzpxjMLcdJM+PGRp xlHhaLczNG4zRdWd u6njt5HxKAfoY3NnFWHv IMwuQno6JNOuHHC8tKR4 fW8kHOCxDPcdm3K9yMF2 Z5TdpmZycu4ue1iq DYUqVByhG85ayUEjj7O1 JPQduYI7DYWzaEajGmCg jZ08Vha+PFBruPhdt2Mt Cwdjl8wno3bhtEw6 IjMwJSIgdmFsaWduPSJ0 p2IwIi09Q48yQWdhORVs WXKsAZViPTIkqExchr0i uC1oVb7+PGNvbCB3 dPD7lV4gEFVuQuL6RXwz I928LfZptIVuPecqx1nu m5ikbGr2UqYrMLNwhjTy iNmkQIO8h0TxVn26 V86hOEzkTNRvFJLgJQTk OTFiuRmoty0rwK1fYw8+ NL0ul3oqih20hG19oDX+ ZWPaSVJ7mFvvXWzy SULyqZ1tGQozEiU4KXHm AgClkP03vISyTDshEl5h dHmenMbiKC5oVBZmhxoh w557QwSkl9kmFJGm zFJvLVkkMMM3Q62nj6I1 UJQbLHPoPKO6nSL3pW1z bGlnbjogbGVmdDsgdmVy tHjxOGwzTHlaN309 IHRvcDsnPlBhdGllbnQg TdRiPNt2T6FnVpf7LULm yPsjHS9lfTGuUWdwYd4f sMffoXxnJF3dBSWt cutly641QxZgz6bdHCUk mBCrENsvMUL7H82zb6G4 UGZrJBBfBZW3xNI9tL7l bGlnbjogbGVmdDsg ewHjrWdhRBddQDjzW323 IHRvcDsnPkJpcnRoIERh fOM2ZI71MF31wKUvo4B9 gWE7Z8MgOUVmumps szpzxWC8MIMgOHCnfT73 Fe1dpKfiVe0uQVXjXTZ6 ZECvdZTxP4LuqY7qKcAh QBGfUJHgU1EyoSWf LJscW942ZHyeCcI1HMIs asOfH9JgXWZgkYufMeZ6 u3H9Ep5RM5P0RA98FQ00 nRJow4B4zYY3I6Oq UILkhvkqfpcprJX7RXUj CUOxnK55Rl9jgKsdKa3n XMFqORZ8KWFlyUOzQ7Ir nY1bIhFvVOZwZEVd O0SxvPXaJIkmR206ENlg LvK5CXTvkkLcT7RjDBAv lAhvPuA2l3Y7Qy1HSYj1 DO60PE05gPNof2L6 uKD0U2QgHCPrfnxqhclq mXT8PJTmVRShjQ58Bo7m zRptQa8sELIpSXF0YZRf nZUuO9PodC5aWeFw LILmLNCgU8KdeGZfAOkh J068AEpfCpA4FVTcjqUf P0EtFIBxrJxrLjF2q3Z0 Ml5QECBqRJ62VYZ6 kIE2MJ75QK41W9UuWudc dGFibGU+PHRhYmxlIHdp ZHRoPScxMDAlJyBzdHls FB7wGw5aXEEwIBQy wRipuWNkYdOgl9tkOPJk MHzgKB8iwDwvW8ZczUL1 LPMxs8n6Wt73J66yS1Vk dXA+MZOilHI9oKO8 fL6xHeYcJuY1OEflD330 GsDnoOLeYuwil4wmm5rc zFe0HiT8JULshoAmeEkc NSJ9t7VhFj34D49y IHdpZHRoPSIxNSUiIHZh yMwinb4cpX7vNs5+PGNv hWY5nKQ3qX4nLhYpYqO4 YDmaC301ZwRjgFGc Twmpl4twg5zkiWr9PzLi JORvfdLfyLztUTR8b0Us Ck54T9RvlOkap4AmMck6 lq23eFWaa5U7rQQ7 L8ScEHTotvmrcXEcyWzh DD2qXFMoxuupTIGwnT3j ZCFhI3r2WeJjIeQ2MXvd G4OhauC2WFXxiHBx OMikHAB6K90bq2H3LVSg XALqUEG0nPR3bB1kvGhl bjogbGVmdDsgdmVydGlj YFcjTJytV514EJYo uLclGUBlxA8jFBGevWZn qLffYP0gFUVlxrufSvKC KceRAc8uGEYKCnDNA2If TDwvdGQ+PHRkIHN0 lXuuCAodWNIfoO1aTAYg Z7y8OgStCaA1CVxpK9Ir YQMijsctKk22kI4qPaWi HxR5KTevK4FtqcI8 CQOasLKwWGpyUPE7M34i c9T0RKFpOXReHKG7lIT5 uP7diHsjaxwzbYIlrWua dmVydGljYWwtYWxp H462LHWrbXqgBkD5WdEa FbB3DGD9C4VoRin5GIYs rQfcKB8tzGSaWIygZt4e iBhmtEduJG0sHBIy epbbJJLxmE0zPNKnkKLw pFqxYT4uHNAighgns570 OcVwCMW7ABKixPScC9Wl cW5rFgNbPLAjCXSf R3MmyHMhPWbhD283KBjs SoP9KIPihkZoO6YgJMAz fFulDoF8h2J9Uc4bNXJY ZWFyczwvdGQ+PHRk HHU8vHtbSHyrRWGgwC1n GKLiA0w8AvPqQyQ8BDqp M0AnFTHtksbgJm21oG4u WgZfNqO7YOttO7Jm krV8RMDdpHClIOigMQZ4 C64yv0D9ELPpVTPcPYA9 cCY9tG1ecZfavtjipCUu dDsgdmVydGljYWwt SGfiZ480IKXqtTwySmQz bWFsZTwvdGQ+PHRkIHN0 pMjkJAuaGYDzxO7eLDEa Q9l5LcYtTvO1GEom O4XrXTBxbwsaDu12tM1u KfSyDhQ4KHgrT4KsphF0 GRTzdRJnZYaiDKQ2Q68u q5B0GNOcBHZyDOU2 yKB5cA9xgFnpheefaIGt dDsgdmVydGljYWwtYWxp B828AXNwhOjnOmxmxRN9 aWVudDwvdGQ+PC90 hn24S7OfEqpqXai0RZCq KZX0oOE9zI5cZSJyLPeb s9Q5jNN7Z4LsgiSkow3d v2kkZHPkEWphY97x cZHgf0U5CXVmrWF2VXGi zDjjGpOlzN78Oeb+PGNv oVjow7BuZcmcg4lwo6df bBo9NdSwFGYpwyVw hMsrAON5d6QmEx09K51n IHdpZHRoPSIzMCUiIHZh wMjnux0lsL4gUb2+PGNv dSK7sQB6yZ4bEtQt QgM0AEocC979BmGloKTf Serqt7lks6aivWc4NcAd QQRspfZgqZohTZS0h4Sg Vk39K9OqeKoxl9Tj Wwf2pt09zLRie7M0nXY6 W4BqKWBfngxrlOCilHsv TH1tHLUuajlfZEWhgM3u GQQpZ4r5AkJwRjQ4 GFgxI4WqoaX2HMBjbDQs ISNayORByU4nmedqg8kc kdpcGgJfCIPpPUu3SCu0 LWFsaWduOiBsZWZ0 QxP4QDV2sFXnaC4lvPek gqsemX6bUli+FQy9w5fb hIIgRV0jbFW3QB11YW25 tUMwm9V6wZF6S4Th WMKqmpzxwbebzTH6KYHh MCAhwG72Ek1gqGbxDg5x QGYsEPC0AOTurZGzD9Qm dS1dJjMwABQkTIYs G9LrdSYxSBfdS209VTeu QpD7FGFtzbMlN0PvLRIk zEjoFpG9y7Z5Ij9WXE80 ZT07LF92oOYuf7V4 yMT0A2BbAOVmehrustnm oYC4YKNfVLGtqF57Qh7h sGyrVl7gXDNbWVL4ZIWz lNSuR6JfgR6hXgBi YAXhAVMrE3IoqKXhHVep X795LIziWrQ3UEFxklPq R9BlVYGdyNvqCsC1q5S5 Wt4RLh12XE09VD53 fPCch6Z8jCH8N1NyNXQe kadsxeyrpCC6VPWvHNZu rI96Zt0mpHakNs3sSKXd JZM3PHMsnXUbO4Ys aR5lLsIyENXhFAUsU8Cf nGRsTMlaT711OEpkPnP9 HSFghiHcZ6PsHCBmaGvv UbY4f5N8Rz1MLZwv ido1A5KoBqezxVX+PC90 VWFmBM25cSJkzFHzo8az bRj9BmXzJXPrVNB2uLrw AHioe8QjPPDkH36m bGFw (more content not included)... Normal [facility] Consent for Treatmenton 07-20 Consent for Treatment [id number] #1.00CD:127 Normal [facility] General Message Officeon General Message Office --- --- --- --- - -- --- --- --- --- From: GonzalesVivien YuanInmode To: MYA MYLES Sent: 08/06/20 02:30:52 AM EDT Subject: Discharge Summary Ready to View A summary regarding your recent visit is available in the Documents section of your health record. Normal [facility] CBC w/Indiceson 08-05-2020 Erythrocyte distribution width (RBC) [Ratio] 15.1 % High 10.9-14.2 [facility] Comment on above: Performed By: #### 2 [id number], [id number], [id number] #### [facility] [address] [place] [address] Hematocrit (Bld) [Volume fraction] 26.0 % Low 34.0-46.0 [facility] Comment on above: Performed By: #### 2 [id number], [id number], [id number] #### [facility] [address] [place] [address] Hemoglobin (Bld) [Mass/Vol] 8.6 g/dL Low 12.0-16.0 [facility] Comment on above: Performed By: #### 2 [id number], [id number], [id number] #### [facility] [address] [place] [address] MCH (RBC) [Entitic mass] 26.3 pg Low 27.0-34.0 [facility] Comment on above: Performed By: #### 2 [id number], [id number], [id number] #### [facility] [address] [place] [address] MCHC (RBC) [Mass/Vol] 32.9 g/dL Normal 31.4-36.0 [facility] Comment on above: Performed By: #### 2 658695, [id number], [id number] #### [facility] [address] [place] [address] MCV (RBC) [Entitic vol] 79.7 fL Low 80.0-100.[address] [facility] Comment on above: Performed By: #### 2 592583, [id number], [id number] #### [facility] [address] [place] [address] Platelet mean volume (Bld) [Entitic vol] 8.0 fL Normal 6.4-10.8 [facility] Comment on above: Performed By: #### 2 057329, [id number], [id number] #### [facility] [address] [place] [address] Platelets (Bld) [#/Vol] 259.0 E9/L Normal 150.0-500.0 [facility] Comment on above: Performed By: #### 2 177651, [id number], [id number] #### [facility] [address] [place] [address] RBC (Bld) [#/Vol] 3.3 E12/L Low 4.3-5.9 [facility] Comment on above: Performed By: #### 2 076452, [id number], [id number] #### [facility] [address] [place] [address] WBC corrected for nucl RBC Auto (Bld) [#/Vol] 10.2 E9/L Normal 4.0-11.0 [facility] Comment on above: Performed By: #### 2 026502, [id number], [id number] #### [facility] [address] [place] [address] Discharge Instructionson Discharge Instructions [id number]#1.00CD:127 Normal [facility] Inpatient Clinical Summaryon 08-05-2020 Inpatient Clinical Summary [address] [address] Clinical Summary Person Information Name: MYA MYLES [facility] Age: 30 Years : 1990 Sex: Female PCP: Chao Blackwell III, DO Marital Status: Single Race: White Ethnicity: Non- or Language: South African Visit Id: Visit Reason: Speciality: Acuity: 1 PP Enc Type: Inpatient Med Service: Obstetrics Arrival: 08/04/2020 06:59:23 Discharge: 08/05/2020 17:20:00 Dispo Type: Home ([facility]) Address: [address] [place] [address] [address] [place] [id number] Provider Notes: Diagnosis: Depression during ; Obesity [...] Follow up: With: Address: When: Sukhdeep Schaffer [address] [place] [address], [place] [address], [place] [id number] Business (1) Within 6 weeks Comments: Call Dr if fever>100.5 F, heavy bleeding Call for any problems. Nothing in the vagina for 6 weeks Type Location Start Finish [facility] 09/15/2020 9:00 AM 09/15/2020 9:15 AM Confirmed Patient Education Information: ibuprofen 600 mg Tab Normal [facility] Inpatient Patient Summaryon 08-05-2020 Inpatient Patient Summary [address] [address] Patient Discharge Instructions PERSON INFORMATION Name: JENN MYLESESSA Abdulaziz Date of : 1990 Current Date: 08/05/2020 [...] Follow up: With: Address: When: Sukhdeep Schaffer [address] [place] [address], [place] [address] Business (1) Within 6 weeks Comments: Call Dr if fever>100.5 F, heavy bleeding Call for any problems. Nothing in the vagina for 6 weeks In the event that this physician does not participate in your insurance network, please consult with your insurance company to find a nearby participating provider. Type Location Start Finish [facility] 09/15/2020 9:00 AM 09/15/2020 9:15 AM Confirmed Comment: JUSTINO Burton [place], have received the attached patient education materials/instructio ns and have verbalized understanding. Patient Signature Date Clinican/Nurse Signature Date MEDICATION LIST New Medications [id number], [address], [place] [id number], [phone] ibuprofen (ibuprofen 600 mg Tab) 1 Tablets By Mouth every 6 hours. Refills: 0. Last Dose: Next Dose: Medications to Continue with No Changes Other Medications multivitamin, ( Multivitamins) 1 Tablets By Mouth every day. Last Dose: Next Dose: Pharmacy Information: [facility] PATIENT EDUCATION INFORMATION Instructions: Medication Leaflets: [...] younger th (more content not included)... Normal [facility] ABO/Rhon 08-04-2020 ABO/Rh Positive Invalid Interpretation Code [facility] Comment on above: Performed By: #### 1 [id number], [id number], [id number], [id number] ####[facility] [address] [place] [address] ABO/Rh History Checkon 08-04 ABO/Rh History Check Verified Hx Blood Type Normal [facility] Comment on above: Performed By: #### 1 [id number], [id number], [id number], [id number] ####[facility] [address] [place] [address] ABSCon 08-04-2020 ABSC Gel Interp Negative Normal [facility] Comment on above: Performed By: #### 1 [id number], [id number], [id number], [id number] ####[facility] [address] [place] [address] Blood Bank ID#on 08-04-2020 BBID# [id number] Invalid Interpretation Code [facility] Comment on above: Performed By: #### 1 [id number], [id number], [id number], [id number] ####[facility] [address] [place] [address] CBC w/Indiceson 08-04-2020 Erythrocyte distribution width (RBC) [Ratio] 14.8 % High 10.9-14.2 [facility] Comment on above: Performed By: #### 2 [id number] #### [facility] [address] [place] [address] Hematocrit (Bld) [Volume fraction] 31.7 % Low 34.0-46.0 [facility] Comment on above: Performed By: #### 2 [id number] #### [facility] [address] [place] [address] Hemoglobin (Bld) [Mass/Vol] 10.2 g/dL Low 12.0-16.0 [facility] Comment on above: Performed By: #### 2 [id number] #### [facility] [address] [place] [address] MCH (RBC) [Entitic mass] 25.6 pg Low 27.0-34.0 [facility] Comment on above: Performed By: #### 2 [id number] #### [facility] [facility] [address] [place] [address] MCHC (RBC) [Mass/Vol] 32.1 g/dL Normal 31.4-36.0 [facility] Comment on above: Performed By: #### 2 [id number] #### [facility] [address] [place] [address] MCV (RBC) [Entitic vol] 79.7 fL Low 80.0-100.0 [facility] Comment on above: Performed By: #### 2 [id number] #### [facility] [address] [place] [address] Platelet mean volume (Bld) [Entitic vol] 8.3 fL Normal 6.4-10.8 [facility] Comment on above: Performed By: #### 2 133249 #### [facility] [address] [place] [address] Platelets (Bld) [#/Vol] 341.0 E9/L Normal 150.0-500.0 [facility] Comment on above: Performed By: #### 2 442967 #### [facility] [address] [place] [address] RBC (Bld) [#/Vol] 4.0 E12/L Low 4.3-5.9 [facility] Comment on above: Performed By: #### 2 [id number] #### [facility] [address] [place] [address] WBC corrected for nucl RBC Auto (Bld) [#/Vol] 8.2 E9/L Normal 4.0-11.0 [facility] Comment on above: Performed By: #### 2 286897 #### [facility] [address] [place] [address] Consent for Procedure/Surger yon 08-04-2020 Consent for Procedure/Surgery [id number] 9#1.00CD:127 Normal [facility] Consent for Procedure/Surgery [id number] 3#1.00CD:127 Normal [facility] Consent for Procedure/Surgery [id number] 5#1.00CD:127 Normal [facility] Consent for Treatmenton 07-19 Consent for Treatment [id number] 2#1.00CD:127 Normal [facility] Consent for Treatment [id number] 9#1.00CD:127 Normal [facility] Delivery Summaryon Delivery Summary Patient: MYA [...] Stable. Maternal condition: Stable. Funmilayo Escobedo MD [facility] Comment on above: Result Comment: Elec tronically Signed By: Funmilayo ESCOBEDO MD\.br\Date and Time Signed: 08/04/20 15:29 EDT Discharge Instructionson Discharge Instructions [id number] 9#1.00CD:127 [facility] Help Me Grow Referralon 07-19 Help Me Grow Referral [id number] 4#1.00CD:127 Normal [facility] Progress Note-Physicianon Progress Note-Physician Patient: MYA MYLES Age: 30 years Sex: Female : 1990 Associated Diagnoses: None Author: Kevin Haley Jr., DO Postoperative Information Post Operative Note: Day 2. Anesthetic utilized: Regional: Epidural. Health Status Allergies: Allergic Reactions (Selected) No Known Allergies Problem list: All Problems labor / Patient Care / Confirmed Ovarian cyst / SNOMED CT 383559138 / Confirmed Attention deficit hyperactivity disorder / SNOMED CT 5385441100 / Confirmed Obesity / ICD-9-CM 278.00 / Possible Obesity complicating , third trimester / SNOMED CT 5957039307 / Confirmed Depression during / SNOMED CT 9764984017 / Confirmed Insomnia / SNOMED CT 565201355 / Confirmed / SNOMED CT 740388971 / Confirmed Supervision of high risk in third trimester / SNOMED CT 67118710 / Confirmed Chronic fatigue syndrome / SNOMED CT 33118443 / Confirmed Resolved: / SNOMED CT 382853364 Resolved: / SNOMED CT 677961985 Canceled: Obesity complicating , first trimester / SNOMED CT 9675878339 Canceled: Obesity complicating , second trimester / SNOMED CT 2597249049 Canceled: Supervision of high risk in first trimester / SNOMED CT 79748992 Canceled: Supervision of high risk in second trimester / SNOMED CT 75875105 Physical Examination General: Alert and oriented, No acute distress. Neurologic: Normal sensory, Normal motor function, No focal deficits. Review / Management Result Review Condition: Stable. Assessment Anesthetic outcome No post-epidural complications noted.. Plan Transfer/ Discharge: Condition stable. Normal [facility] Comment on above: Result Comment: Elec [...] / Confirmed Ovarian cyst / SNOMED CT 611382882 / Confirmed Attention deficit hyperactivity disorder / SNOMED CT 4272704372 / Confirmed Obesity / ICD-9-CM 278.00 / Possible Obesity complicating , third trimester / SNOMED CT 2017641622 / Confirmed Depression during / SNOMED CT 5424224396 / Confirmed Insomnia / SNOMED CT 326920562 / Confirmed / SNOMED CT 674223394 / Confirmed Supervision of high risk in third trimester / SNOMED CT 00059022 / Confirmed Chronic fatigue syndrome / SNOMED CT 40833873 / Confirmed Resolved: / SNOMED CT 446725188 Resolved: / SNOMED CT 441575038 Canceled: Obesity complicating , first trimester / SNOMED CT 9461204574 Canceled: Obesity complicating , second trimester / SNOMED CT 6170410598 Canceled: Supervision of high risk in first trimester / SNOMED CT 29785668 Canceled: Supervision of high risk in second trimester / SNOMED CT 87325185 Review of Systems Respiratory: Negative. Cardiovascular: Negative. [...] The PCEA was started at 0942. Normal [facility] Comment on above: Result Comment: Elec tronically Signed By: Kevin Haley Jr., DO.rosey\Date and Time Signed: 08/04/20 10:50 EDT UA With Cult Reflexon 2020 Bilirubin Ql (U) Negative Normal Negative [facility] Comment on above: Order Comment: Urina ry Catheter Insertion triggered Urinalysis With Culture Reflex order by michelle. Performed By: #### 2 379890, 4066232, [id number] #### [facility] [address] [place] [address] Clarity (U) CLEAR Normal Clear [facility] Comment on above: Order Comment: Urina ry Catheter Insertion triggered Urinalysis With Culture Reflex order by discern. Performed By: #### 2 898265, 8648511, [id number] #### [facility] [address] [place] [address] Color (U) YELLOW Normal Yellow [facility] Comment on above: Order Comment: Urina ry Catheter Insertion triggered Urinalysis With Culture Reflex order by discern. Performed By: #### 2 612898, 9969320, [id number] #### [facility] [address] [place] [address] Crystals LM Ql (Urine sed) Present Normal [facility] Comment on above: Order Comment: Urina ry Catheter Insertion triggered Urinalysis With Culture Reflex order by discern. Performed By: #### 2 281900, 2218838, [id number] #### [facility] [address] [place] [address] Epithelial cells.squamous LM.HPF (Urine sed) [#/Area] 0-2 Normal 0-2 [facility] Comment on above: Order Comment: Urina ry Catheter Insertion triggered Urinalysis With Culture Reflex order by discern. Performed By: #### 2 942466, 2580969, [id number] #### [facility] [address] [place] [address] Glucose Test strip (U) [Mass/Vol] Negative Normal Negative [facility] Comment on above: Order Comment: Urina ry Catheter Insertion triggered Urinalysis With Culture Reflex order by discern. Performed By: #### 2 015851, 3448970, [id number] #### [facility] [address] [place] [address] Hemoglobin Ql (U) TRACE Abnormal Negative [facility] Comment on above: Order Comment: Urina ry Catheter Insertion triggered Urinalysis With Culture Reflex order by discern. Performed By: #### 2 556097, 8580454, [id number] #### [facility] [address] [place] [address] Ketones (U) [Mass/Vol] Negative Normal Negative [facility] Comment on above: Order Comment: Urina ry Catheter Insertion triggered Urinalysis With Culture Reflex order by discern. Performed By: #### 2 731786, 6532624, [id number] #### [facility] [address] [place] [address] [facility]. RBC (Bld) [Mass ratio] 0-3 Normal 0-3 [facility] Comment on above: Order Comment: Urina ry Catheter Insertion triggered Urinalysis With Culture Reflex order by discern. Performed By: #### 2 597523, 3334240, [id number] #### [facility] [address] [place] [address] Mucus Ql (Urine sed) TRACE Normal [facility] Comment on above: Order Comment: Urina ry Catheter Insertion triggered Urinalysis With Culture Reflex order by discern. Performed By: #### 2 624332, 7837201, [id number] #### [facility] [address] [place] [address] Nitrite Ql (U) Negative Normal Negative [facility] Comment on above: Order Comment: Urina ry Catheter Insertion triggered Urinalysis With Culture Reflex order by discern. Performed By: #### 2 988513, 0181058, [id number] #### [facility] [address] [place] [address] pH (U) 6.0 [pH] Invalid Interpretation Code 5.0-9.0 [facility] Comment on above: Order Comment: Urina ry Catheter Insertion triggered Urinalysis With Culture Reflex order by discern. Performed By: #### 2 801416, 1881142, [id number] #### [facility] [address] [place] [address] Protein (U) [Mass/Vol] Negative Normal Negative [facility] Comment on above: Order Comment: Urina ry Catheter Insertion triggered Urinalysis With Culture Reflex order by discern. Performed By: #### 2 362927, 8662309, [id number] #### [facility] [address] [place] [address] Specific gravity (U) [Rel density] 1.015 Invalid Interpretation Code 1.005-1.030 [facility] Comment on above: Order Comment: Urina ry Catheter Insertion triggered Urinalysis With Culture Reflex order by discern. Performed By: #### 2 832756, 4522044, [id number] #### [facility] [address] [place] [address] Type of Urine collection method Catheter Normal [facility] Comment on above: Order Comment: Urina ry Catheter Insertion triggered Urinalysis With Culture Reflex order by discern. Performed By: #### 2 715403, 5020591, [id number] #### [facility] [address] [place] [address] Urobilinogen Qn (U) 0.2 {Henny'U}/dL Normal 0.0-1.0 [facility] Comment on above: Order Comment: Urina ry Catheter Insertion triggered Urinalysis With Culture Reflex order by discern. Performed By: #### 2 533688, 4297400, [id number] #### [facility] [address] [place] [address] WBC Auto Ql (U) Negative Normal Negative [facility] Comment on above: Order Comment: Urina ry Catheter Insertion triggered Urinalysis With Culture Reflex order by discern. Performed By: #### 2 792999, 2805942, [id number] #### [facility] [address] [place] [address] WBC LM.HPF (Urine sed) [#/Area] 0-5 Normal 0-5 [facility] Comment on above: Order Comment: Urina ry Catheter Insertion triggered Urinalysis With Culture Reflex order by discern. Performed By: #### 2 509011, 5123010, [id number] #### [facility] [address] [place] [address] Vaccinationson 08-04-2020 Vaccinations [id number] 0#1.00CD:127 Normal [facility] Coding Summary.on 08-03-2020 Coding Summary. CD:[id number] Gh0bWw+PGhlYWQ+PE1FV EArP35yxUEzbH7KQ3iDM M2UMNNBOUTAGN1YZW0yy PI9UBcjN3WrnkJo EpvwwNXhVF46JAl3PEL4 cMacEWihlJ8roOEhY6p9 AbKdHQ54vE37ACggWWSl HrP8IdVpomddqLCr F9acPfMfxAIsKub+PHRh YmxlIHdpZHRoPScxMDAl IhUlmRlgXE5tSa1vEIYc LWNvbGxhcHNlOiBj f8tsDMRkSAthSH4lbKjr J1YazAY5FBEzv0t8Eh27 dHI+PUNeOGQ9bDcoXYbk o009PpTzy5idELS0 rTRdJItpLUT7O65dk8E8 DDPtLYPxDXZ6aLT8dJ1i yGlwfckjB9ZapTOaUyT2 QWM2fQXjvD9zdWja mnproU9sZlw+R47SXB3O CGCLZU6JVym2E0YoCjto dHI+OS90CHWiRA03uFEp wLLga6pcdJy3HlUj ZEKzRRT0mCcmMAbdh7Mu IMYnU89muHCjl0V6WSXi vSkvbYWqTaCbgNJ7rZ6h HQqqguukp1zuzqta Wjwjb0dttm93zB85S94d VSzjGWQrGOE3ZOCxGSOe eCigqb7luJ5pUq1+IDxj t6zge1ezpYh8DrIj HJZredFefYftBSC4z0Nc Yd79I9EfwOpvx5LfUvq9 kv10hPAju5S9bOG2NJou QODrhO2cYOwqGrI0 KUXwDnMwzI18iDVpVBxc Jm5utKqzrQjrDD3wYJWu gmuyLDWezS1zQKPouNIs oDqpYC1lREArtkae v932SvPmXFK1AKPjaDSz W5RntE8hFpYlTCMpCHMk G0ItfBPjXMvaZ952VHvl VyI5FXAprkQgF9Ed TADabEbbPbF6n7N4Oe8S q8SyhctsACL9EVotQDO5 GhY7FsFdSiT8P4VbLln9 HJZjgHpvDA6zY7Dr MKMtrcykirzvfON1HLHr EKPmxG12gIItYKjpLy5f o1T1o568CINsWYBlnX49 Wx3mwPunWUFcgJOH tT8fnewzx1jtpspdRfNq TZPeJMw0SOx1NLRzhJob ErOvUZA1WcX1QKD4dWCo tT6gsUcbrcwleR3x Oyc+W75uiW0oJLL3XGD6 lslxOGPfzrJeQA56FH75 B6VhCemyqFVqcLY+PGRp enLdvWbgWD8cYwSh h7imb5PrKCxuX7SzCQHc BLzvDdc6ZTEeAMA1fWY7 tV2cWGWvCRodg5C9aBT3 M8LsboNwjv4kl0lg HALzKDfgK08eaKDjg4H4 KMTlnRD5JWTptEyoUjWf cJ32Rxc+NBYbqXizm4Zh Dpgbe5ays1kmgOe4 IjMwJSIgdmFsaWduPSJ0 l3YwNh62M23yINqgFCBf MCLdWLIyEOAqyYruss6b oP6ePh8+PGNvbCB3 dKI4tR6mGPJcVhR8KAfi V844TfYwzBRtFlddu7ti t4yfaYd9SeXqXSNtmdMn ySrnUNM2y2ZxWq13 U71kWVnhLXAfRZCfPZZk VEXktCummz5rzZ8jAw0+ XN7et9qpqg34fO81uYV+ QAZfBQU0kBzmFEkh GBZglM3xZDejEqK3WDQo AgAmpR17mXPrMJolBh4a kMjwmJfhVO5lOZKfvuxi j886JeDjq3ahGXYg lUWaGFboMVL1D35ki6X9 SYEyIJIgPQI9iOR0nZ6r bGlnbjogbGVmdDsgdmVy oGufEWwbGCecX441 IHRvcDsnPlBhdGllbnQg SnMkPBl9Q6QeIvl3IEWv rVeuEN4hvDAmOUgqBd4x uGzgsCjxUT5wTPXl bccvj724UwFds4kfGMYy nVFfWLrnPIS3G06yt1Q5 BKWvDHHcOFK8aUT3xR6j bGlnbjogbGVmdDsg nrPbuVyzBRxjGOilA312 IHRvcDsnPkJpcnRoIERh vIE8HP28PF01cKPkh5P2 oDI5K9IoWRKlqsty kmxdmFE5WOGjDLXpnJ44 Ox8qbMhsRh8iYXTpRPG1 YTXxyVHjO2WryY0bKlKv NVIrWLYrV3XvuQCw ESsxC737OEkkMnL7UBGc tiFdC9XoIHPwcZhcVnZ6 e5W3Ri3HR5A1MV98NE07 cNDsw6N6xOU5M2Ri MRWifyvmtbsjxZA2NSQs KHPufS42Ql1hbMeiMd8o LHZzCZA9WFZkwZDnF3Uc eT7nDeDdLXDjOEOk T5IxeMPlSBooC085OHwt RgV2OSFhzvOxI1HhLJWi uTfrSpU0l8K4Eh5KUIl1 OZ67WP01hIHop5S7 wYR8B7AqIWSrkrkrkvhp wDB6FPJyOHRgzZ96Ma3v nLuhMg4nSCVhLKL5BZCe gWXiH4VznU6nSuBf QJHiGSHkW0KnhDBrOTtm D250WRebMlT2NIUlmgOa Y8WhVOVkrMtcSzP8m6F8 Aj7GGYJzNS93MTX9 uHJ9KA35UO09P7BpSpky dGFibGU+PHRhYmxlIHdp ZHRoPScxMDAlJyBzdHls DK4kEp8rQDLkFKZu aPwtaAGuNgYtk3imOOSa JAzeRL5atMpoC2CwrMH0 IDMhc6c1Yf75M96pT3Ql dXA+KGAppGY5eOB3 lL2qBsOjNiQ2SRwfM084 PfNvjGTyPjlag0drd7ji pEg0HkW0CHXonmDltOue IUP6h1ErZt58V44t IHdpZHRoPSIxNSUiIHZh cWwtwi7raX1mQx9+PGNv qUH8yFU4uY1mDbAkQoC2 GCduY115YyQosBLy Ezzjw4bxu2uviEp3VaGt DGYbqfPltMuaQZB2x9Pb Cd11W4AaxXwvi5WpSqr2 or03sXWac5Y8nIX7 F9IhEHPrjrltgFRpbZiz JG2kULUverlzBJFhsP5q IYKkB6f2BvRyMwX6CMje H6LhigB1MRIfmWJx BJhwUZH6N24nw4C0HCMm DQJlJEG9vTE6xX0khBbg bjogbGVmdDsgdmVydGlj IGdtRDloX909KZIi uHunDOLihE2fOVZtxSCo aLoiNO9qZYXgjljpTiJC GpuTOn3qCMQIQaSFB4Ki TDwvdGQ+PHRkIHN0 sCxaQBwpLJBpxZ7zDDIp T3q3LmLtDeU0CVloU7Za CCBzceigDc30sN1wVoKu EjM3UKatH8EgqeK1 QKDuaDGcLWqzXFY5N68c c2U2JDGrOBKrRWR8nOW5 uF0ziKlvbanzoLDvhEjt dmVydGljYWwtYWxp H304JUAlqGcjTmQ4HqAd TbB6OTD7U7QoQdk7XJTb lPjuJQ3znZWsBQulWs4o lArzaFolMM7pNEBp wmieINTigP4tCOUjrSLl xUpnGD5gPKAsemizw223 IqYpMFI5KUNkaQHdC9Ds aW9xVxBiQKDtCAQk D8WfdGYdGBdrA119AQdk PcL4QMJtjwMzE1BlJYAl aWyeYlA6e0F8Re0zBUGM ZWFyczwvdGQ+PHRk ALJ4kGpySZwcIWWtdM1e OMBvC0c4IoApDvG3MWqf W5KgYZDahqmuIw64jL0j VnBpZdA7DEduV3Jg jtB1IVOgeFJsMIgiENM3 X93qm8A7KNNuGXYiEJL0 hGT6yL5liNmejfqlbZTx dDsgdmVydGljYWwt CGkkA035PZFvgBpqZeWn bWFsZTwvdGQ+PHRkIHN0 mGqgLZzcUFGhzA5rUTGr E8m4SgNjVgK2RJhg B3CoQODpawdtAu76aD8q NdDpHsZ8ZPtsU5ZardL4 JNKdwKYcJEnkFHD4M18t d6J7WESbYDZwTUO6 kVT1bY5zxQlsrxrqfQPe dDsgdmVydGljYWwtYWxp C710LXPuiBuaBv5VTGPz aWFnZTwvdGQ+PC90 gb27I3GhMsxrXec2WAJn CIG4jMK5pZ1oGKQrAPgk p5J3ySB5M4GaocNfxi7t l4jtIRNvIZalY47w pVSja7N8HVQrrXD6SSOo vDimBwGvqY65Kft+PGNv pTfle6JjQbzwt8iuz3eh qWv5QuKcZPWjxmOe eRzaVDI4a7GlMp41U36h IHdpZHRoPSIzMCUiIHZh qFvvlh6rrF0dFq7+PGNv mNL5uPO3vU2fOwLn SoG1YCcmI236AzVqwVNs Fqkms8scg6sedTp8FtJp PJAzapQmvMgyLLY2b2Gz Nh52G4AxrZepz7Op Mvp9gz67wTTlv2T2uME1 N1LgUZWzlsbzcOAbpUjf XD7zIYWphtwdNKVrsF7r FWTmR5z3UzGcDsV0 UUjlI7GjetX7QWMheERk NMNtxDCRtV8ktaxxm2fe pndcXaEjIYThHZt9MZj1 LWFsaWduOiBsZWZ0 PfT0SKV2pHLlhZ2pzYpx rhdgqL9bQif+STs7a4mh mHCxAX5ulVJ2LF76XV55 jYBma0J8pVU1L8Yh SAXeegbjsvxixEO8NTBb SIFieQ50Hr0yjOnhLr9p PJGjWMC6WHUfqXSfI5Gz sM8yWrJtHHUcITXd Z8UpeCDqOXmsA022GTdz JpV9DXPwnaVfM1VaUMRh tOqpIhQ2l5X7Uy0EGL98 OK98GN62mCUah5Q5 rVX0Z2TiFMMlzcsnmvwf tTO9YVOaRPGghF71Bs1m kZnsMw9nXUJhFXB6IYWa nXMaF0EatJ4iOfNt BGLvGBSxZ4DorMLzKDri R377EUdhDnJ3VLRvnnUr F1FuLKJdlLjsUrT6y8Z2 Gv9LQu22QC47QP35 yGEhf7W2aLV7C5RxFPRr ddqboisrvRZ8BQKaGLWo xN26Vu8qlBjkOb9dRBBs HOP2NDKncMFgW3Ac uD0yPqSeYJYqPEXrU4Uj xYLwWIrjX453SDmjEjV1 HEDzcnVgD0MgQEUomAzh WpI6g3Y4Jh1TGKcn kyw2O9FbHooscIW+PC90 WVZdLT72lUWruBJjq0qy qDx1YzUtMVLhHGW1oOkz WNbuq4JzICZmL83j bGFw (more content not included)... Normal [facility] Ambulatory Clinical Summaryo n 08-02-2020 Ambulatory Clinical Summary {[id number]-[id number]-[id number] 09-9c-6a}CD:[id number] Normal [facility] Insurance Correspondenceon 0 08-02-2020 Insurance Correspondence [id number] #1.00CD:127 [facility] Insurance Correspondence Off iceon 08-02-2020 Insurance Correspondence Office [id number] 1#1.00CD:127 [facility] Insurance Correspondence Office [id number] 1#1.00CD:127 [facility] Nursing Assessmenton 021 Nursing Assessment [id number] 4#1.00CD:127 Normal [facility] Obstetrics Office/Clinic Not jasmine 08-02-2020 Obstetrics Office/Clinic Note Chief Complaint OB 38w 5d, baby moving, occ. [place], swelling bilat. feet, woke up with Migrain in middle of night Obstetric History History (1,0,0,2) # 1 Baby 1 Outcome Date: 2008 Outcome: Live Outcome or Result: Vaginal Gender: Female Gest Age: 41 weeks Wt: 3232 g Hospital: [facility] Labor: -- Child's Name: -- Baby's [...] trimester) Ordered: Office Visit Level 4 Est 90311 2. Obesity complicating , third trimester (O99.213: Obesity complicating , third trimester) Ordered: Office Visit Level 4 Est 68111 TH 3. Depression during (O99.340: Other mental disorders complicating , unspecified trimester) Ordered: Office Visit Level 4 Est 30291 TH 4. 38 weeks gestation of (Z3A.38: 38 weeks gestation of ) Ordered: Office Visit Level 4 Est 86152 TH Follow-up With When Contact Information Funmilayo ESCOBEDO MD In [address] [place] [address]- Additional Instructions: Problem List/Past Medical History Ongoing Attention deficit hyperactivity disorder Chronic fatigue syndrome Depression during Insomnia Obesity complicating , third trimester Ovarian cyst Supervision of high risk in third trimester Historical Medications Multivitamins, 1 tab(s), Oral, Daily Allergies No Known Allergies Social History Alcohol - Denies Alcohol Use, 11/21/2009 DENIES, 04/14/2020 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 [...] Protein Urine Dipstick: Negative (08/02/20 16:30:00) Normal [facility] Comment on above: Result Comment: Elec [...] 05/13/2008 Document Revised: 07/07/2019 Document Reviewed: 07/07/2019 [employer] Patient Education ? 2020 [employer] Normal [facility] Discharge Instructionson Discharge Instructions [id number] #1.00CD:127 Normal [facility] Inpatient Clinical Summaryon 07-31-2020 Inpatient Clinical Summary [place] [address] Clinical Summary Person Information Name: MYA MYLES Ifeoma/[facility] Age: 30 Years : 1990 Sex: Female PCP: Chao Blackwell III, DO Marital Status: Single Race: White Ethnicity: Non- or Language: South African MRN: [id number]-- Visit Id: Visit Reason: Speciality: Acuity: Obs Enc Type: OB Triage Med Service: Obstetrics Arrival: 07/30/2020 21:16:34 Discharge: 07/30/2020 22:58:00 Dispo Type: Home (Routine DC) Address: [address] [place] [address] [address] [place] [id number] Provider Notes: Diagnosis: Problems Active Insomnia Chronic [...] Follow up: With: Address: When: Funmilayo ESCOBEDO [facility] [place] [address] P[place]nap (1) In 3 days 08/02/2020 Comments: Keep [...] Location Start Finish State WH SOV [facility] 08/02/2020 4:30 PM 08/02/2020 4:45 PM Confirmed WH [facility] 09/15/2020 9:00 AM 09/15/2020 9:15 AM Confirmed Patient Education Information: Normal [facility] Inpatient Patient Summaryon 07-31-2020 Inpatient Patient Summary [address] [address] Patient Discharge Instructions PERSON INFORMATION Name: MYA MYLES Date of : 1990 Current Date: 07/30/2020 23:21:29 PHYSICIANS Admitting Physician: Funmilayo ESCOBEDO MD Primary Care Physician: Choa Blackwell III, DO PCP Comment: Discharge Diagnosis: [...] up: With: Address: When: Funmilayo ESCOBEDO [address] [place] [address] Business (1[employer]ovan In 3 days 08/02/2020 Comments: Keep scheduled [...] provider. Type Location Start Finish State SOV [facility] 08/02/2020 4:30 PM 08/02/2020 4:45 PM Confirmed [facility] 09/15/2020 9:00 AM 09/15/2020 9:15 [...] Leaflets: You may receive a survey from [employer] asking you to rate your care experience. Your feedback is important and will help us understand what we do well and how we can improve the quality of care we provide to you, your loved ones and our community. It?s an honor to serve you. Thank you for choosing [facility] Normal [facility] Consent for Treatmenton 07-19 Consent for Treatment [id number] 0#1.00CD:127 Normal [facility] Consent for Treatment [id number] 8#1.00CD:127 Normal [facility] Insurance Correspondenceon 0 07-29-2020 Insurance Correspondence [id number]#1.00CD:127 Normal [facility] Insurance Correspondence Off iceon 07-29-2020 Insurance Correspondence Office [id number] 5#1.00CD:127 Normal [facility] Nursing Assessmenton 021 Nursing Assessment [id number] 1#1.00CD:127 Normal [facility] Ambulatory Clinical Summaryo n 07-28-2020 Ambulatory Clinical Summary {[id number]}CD:[id number] Normal [facility] Obstetrics Office/Clinic Not jasmine 07-28-2020 Obstetrics Office/Clinic Note Chief Complaint OB visit 38 weeks . Obstetric History History (1,0,0,2) # 1 Baby 1 Outcome Date: 2008 Outcome: Live Outcome or Result: Vaginal Gender: Female Gest Age: 41 weeks Wt: 3232 g Hospital: [facility] Labor: -- Child's Name: -- Baby's Father: -- # 2 Baby 1 Outcome Date: 05/26/2013 Outcome: Live Outcome or Result: Vaginal Gender: Male Gest Age: 39 weeks 3 days Wt: 3390 g Hospital: [facility] Labor: 5 hr 55 min Child's [...] trimester) Ordered: Office Visit Level 3 Est 94848 TH 2. Supervision of high risk in third trimester (O09.93: Supervision of high risk , unspecified, third trimester) Follow up in 1 wk. Ordered: Office Visit Level 3 Est 50949 TH 3. 38 weeks gestation of (Z3A.38: 38 weeks gestation of ) Ordered: Office Visit Level 3 Est 67269 Follow-up With When Contact Information [facility] In [address] [place] [address]- Additional Instructions: Problem List/Past Medical History Ongoing Attention deficit hyperactivity disorder Chronic fatigue syndrome Depression during Insomnia Obesity complicating , third trimester Ovarian cyst Supervision of high risk in third trimester Historical Medications Multivitamins, 1 tab(s), Oral, Daily Allergies No Known Allergies Social History Alcohol - Denies Alcohol Use, 11/21/2009 DENIES, 04/14/2020 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 [...] Protein Urine Dipstick: Negative (07/28/20 16:33:00) [facility] Comment on above: Result Comment: Elec tronically Signed By: RHONDA DICKEY, Caroline\.rosey\Date and Time Signed: 07/28/20 16:52 EDT Patient [...] Petroleum jelly. ? 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 ? 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 Rectal thermometer. ? [...] ? Consumer Product Safety Commission: www.cpsc.gov ? [place] [employer]: www.healthychildren. org ? Safe [...] 01/17/2009 Document Revised: 01/17/2018 Document Reviewed: 12/25/2017 [employer] Patient Education ? 2019 [employer]. [facility] Coding Summary.on 07-27-2020 Coding Summary. CD:[id number] Gh0bWw+PGhlYWQ+PE1FV OKgP35mxKTwpL9GA1tCX N9FFFPZAWVOFT4ALJ2pc PT5ZHxjQ0VwfyCn CscjkJInGN86CCa9MHJ1 xJpsKJnbcN0dzHPxI6v0 YiHwQS03uM05JRswAPTa CyJ4BfBapxmmlUPj M3guEdCoqWGqXlb+PHRh YmxlIHdpZHRoPScxMDAl VlMqfHunEA6wTw8yHUKo LWNvbGxhcHNlOiBj j2mnXEGhVIhsEK4pwSpv V6UncUQ2VKFkr9f5Lk32 dHI+LKMcARA9sVvvSHhl e529EjJei8bxCCH4 sZIcXXunFWC4J34uw0P2 TCEoJSWyNMP1hXQ3mN2h sNnfncobB3NpyFLaSpC8 ZJR4nIRmvL9mlZii wjvwzF3cJym+P86CZA4N PVYWHX7CZlh6P3XeIwrx dHI+HW81EYGnDH45aIRx qSRdz1kkyXd5ZgTb PYCiHGP8uDltEJkii9Wz TWJtP29uoYTme1O3RUKv pFrpvFRzBjIoeKJ1zK8w FIvojcbzc1tlkwsw Wipio2geow38jC82Y75i MHpfWAIkPWH5WAZkOWXs wCmlyd3fsP4rKp9+IDxj k6rfu6efxPu9WlEj XRStrvNugCbtRAF5k7Oh Kj98N7OepIooc9CpVno2 wo43jYDqx2S6nQZ4WBrj AWJxsF4cQTgnQdJ4 TOBsCaXoaJ25pHTeNXzz Zo9znMmcmDjbXA5rTSSb vhjzXEHwyP7kTQItlNRy kXhvUJ9nSNScfakw k860OhZcDUD8ZBCulQNi R1LmtE9eTaZgVDFeAVBa F8JgmNDzSJjdZ379MJzd OwN4HLKniqCxR0Th KWQizDgfWrW2d0H4Fo3H r7LstthbKGE0ADfqOUW2 IxJ5DhBjFuX5L6HsMwp3 HVYuxOqfCD8qK8Au DNBairbtewmrbMK1URRu BXFanJ58gXRdRWysDi8t o2G3d973XTMoBQDnuA00 Yx3ugMxbHRRmeOHO nF9gtkpnz2uvtuoxExCs QXVuNNo3SKx8OSVdjGfu KaKzHBQ1LuR8BMA2lTWq iV5fuOungvnuwM3p Oyc+O10hlP3rEIT1BKM5 rtraWWIszjZuFX22ZP46 H2MlOwktsDQrlOZ+PGRp kuGzuInoBY5dUyOz z3itv6SuPCxqP8TaAEFp OEraKgk4GMRcUFA3qPZ3 xD3kYUCxGFxrk1W2cIT5 B6MpbgIadl0yw0yc JCWbCZenD72mhSXxm4P2 YWUbjDJ1NOZruDxuHtPm kX52Qbp+WSAdkJqtv8Qm Crvzt7hqp7gvlEd1 IjMwJSIgdmFsaWduPSJ0 c3JiQe81H74kHGxdPVGr EANvMCVdUKYtxTcggt1q mI4lZt7+PGNvbCB3 aWP9cM0eCHLeEcA5XRsy H228FjAaoLRkBordy3sj g3zqnCk0OqZmSIMzkvZd jXamNBW0n2YiQk36 U64wEWytLKOkQTMbQTHe SPStvVyjhj5wyB2aPo0+ AK0lk6dcnq27kU81uEI+ TTQjBLI5bRrbNPru POLvyR2pWVweZdO0VICf UvKibY89sVZpSRqaIo5j oQygqEboDV1mDALvlswt r615HfKdb9geRNHm gTJoRNidGXZ1A51wd7J1 TAOcADZhMDI4jNA3wN4r bGlnbjogbGVmdDsgdmVy ySgvFYpwYQbiX188 IHRvcDsnPlBhdGllbnQg EqYzRXp9I6SlBzh1LWLi hHqxTW3tuWJsTFhmWq7w uAacoJxfJQ3vZKEl rainj628RnAzz7usOOXh uOHhYYlrSWT3B01kz7X4 KGLgQSNeQJA9dGA9eT3b bGlnbjogbGVmdDsg lsLlfOpfTQtnYUkpZ651 IHRvcDsnPkJpcnRoIERh qKA2IW18HA10oTMuv1Y7 pJI4N9QbWGCaurbm aohqgJN2TMQnUGBjtZ03 Nr4uiPdpMj4rGKDoAZT6 BHQesHNdC1QlvQ7qLoJn TNPbUERqO8SwoZZq LJlmY228DVuzCeB9ZQLm psTlH5QaUCYjzBlwThQ2 a8G1Os6UF5S0RP19UN95 sNHqb9O8eXQ4G6Nx YBOxbbqbigtogHP6BJSm RIIyxT33Cw0wmWdaHc1h BWJrLWE2FYGdeVAtS2Sx jN2lRbFyEBSrPWZa Q0VmlAAjAPrcT626GKqc PqM8ZXUeyuPsR0QcIOHw oYxxLwF7v7A5Ox4JJGu1 DH76ZT57yIEpb2Z7 oKD1H8TiHPWmmtlnfhux hNJ2NMZmTQPlqK03Rj7r kYttBb7hVUReDFL7QFEf iUJwI8SkpG9uXaZf UVYgTRZrZ0OtgAAbRLut M056GKhfCwP3UTSmjiCr I4IoDCMssStvEtK6g9I8 Ix1ZHEIfJZ18CBM9 oCG5AE65GB21M0HaLagu dGFibGU+PHRhYmxlIHdp ZHRoPScxMDAlJyBzdHls SL9wCw5nQIYbPGVu eQtbaONbQgKhf2hgWUYk OWpdRR3lqXyaY3ChoEZ0 GMWmd2d2Ab84I18kJ2Lr dXA+SVKfwEC1oCI1 wN2nHgPtKlM9ZEkxA260 HmUszSXzUuwra0dse0mx fCx1HeK6TQCjunEleDpw TJK9g3OsEl40G17i IHdpZHRoPSIxNSUiIHZh tVwald3lpD1wLp9+PGNv bMY5gRE6jS2uAyUeSbS8 FJssP721WtIawIJx Ucfut7bbx3iteIn2QnNr EYEjghXzsNtkDVE3d3Ei Mb23P3GyrUugi9IeGah8 ge75eMTqb6I0uKN4 Y4VeAHVfyfbwdITibMka JM1gFJElflenCEGywG3r GCQjM6m3HqAyLaJ1XZgl B3JrzeP0PHOozNKs AOfuFNW5K50or4I8EISy XAAbKFM4jEA3aV1ovVkz bjogbGVmdDsgdmVydGlj GPwjAVvkM677KKNg dJcxIZZilI3hJFZfrRTg lWbmTW8eWLRwgxfzWjJW TeqKNa1jYJSSJmFPQ0Cn TDwvdGQ+PHRkIHN0 wTszZExgCDXjwO3fZVBr K4i7NmCjUxA3HUdyC7Gv JWKafkhjMb93zR7iZkDl ZuI1YXqmO8AznyE6 SAZhfLZjSTdrWXM3J98d u3J7DOOnIMHrHER8uQJ6 wH7pjQsffzerpOWvrObl dmVydGljYWwtYWxp S265YPBxdOrqJcY9RyTf RfP3PFL7W0VkUsj7OJKk oMlvZQ9ghCLhEWjvLv5f tRihvDebAM1aITUb zbutKOWulO3pLTVrfUTf cYuqNZ6qZCKyrbrog812 OkSkTCU8CSAxhBCxD4Wr sR8uHtPmWOCrTRHo S7BspGOfWMlmP247YMnk HvW3RCDpoeJtC7GxXGAr aLknPqX4a6L1Mq5uTJIK ZWFyczwvdGQ+PHRk TQH5mHxrPLjmZEDweM6x NXOmG3p3ToCrCoC5XIhr W3IjFRSuikovNh60eS8d OvVzOiU5RVbuL1Fu uuF5AJJlhESrEUwkUOB3 O19rm4U0OKFnFXEeUNC5 bEO1iC7cgDtnncolcQQh dDsgdmVydGljYWwt RNuuR425MWQkeEfvEwFh bWFsZTwvdGQ+PHRkIHN0 oNmuWHrsJUOgcW7sCLFi C2o6VnMsZtW7JVnh B8KbNAZuyrgnPw18bI9t SeYmHeJ3TMfbA8HpmlU5 HJZejNWhBStuCOI3G17o a6H1PMWgGNBjDRR5 pHH1iA5qcNkknscoxDUi dDsgdmVydGljYWwtYWxp C184PQTibItmZh3QXQYo aWFnZTwvdGQ+PC90 kq27G2SgKixlGny4PPPc IFR3nTB3rS4aNGKrSKic i5U7lMH3J8ButrNpzy4a a8egVUYuLWihD93l nKMoj6W8HUJptSW3IMDc oRctMfHpzJ54Hfl+PGNv qLesk5KaHixnx1efr8ur aWm6KdDaTDHqtmMt fWuqWHL3n0YxFn32A94l IHdpZHRoPSIzMCUiIHZh qUekpw1noH4pXw3+PGNv yJJ5uZW2gS1aHlCs OhU8OPrvD618NmYvuABb Lgdgx7dtv4ylsMv9LiDd WZIamnSphJboXGR5a3Cv Ea29V7MxnCmpl1Ex Tun0wz49mKEvj2M1yQZ4 U0LoGAWjntlhpIDrlSee YL1kUNIgrxnzCKVifK4x IZQyI1w1CgUfPiY6 UFkzE6BaovB0YJQrfVNl CFFatMHNbV7ruoxma5dm kosoVoNkZNNoTQr7ZSf3 LWFsaWduOiBsZWZ0 WpL2QFH7jEFtvU0bqZxg oecblQ1aDec+BSc7s8cz kMDpNB3byAI3PP35QC36 tWOxh3E1gBI1B8Fn IYWfaacguvnmtGE9ZSVr SFVreS66Xw5gkRgfFc2d WXPwXCB0BWPozYAmU0Bl qR5lUzOqVLAnTCSb D8OghTHvDSijR736ALsf YxU1JKJxbhSdD8JdWXBw bEseWsF1z2W5Tv6APB70 IJ52WD26bUHoa4B0 cKK2C4PmSHZfwldnegpi iGG4OGVcDWOhoD07Xm1q pEudGf0rIJCeGLD6ABJf bUNxR4TggB3bPaEa JROhRXUyR9HypDNwYRha V111UKpqDiW5SSNqyaMy M4UfFTYwuWfuGiE4c4S5 Wt7FZq96HR27BX51 bNVsa1M9pIU8N9RjJNNq pwbfajpzzNN6EUKkUUBj sU02Gs5tfCwjEg0jRTMz FAG7EKRekACuJ9Qu pH2rUvDdTFTvFJDfW6Ko sDJzUFexU846YCpdKaO0 JETirnPhO5RxLAQgfNxj OaX3z0W7Ev3VSXnp bqn9H4NjVsocsPB+PC90 DADjLP80aOIrtTTsd1kb uCt0UhVbLPJhEDL6kMjs BSbdb8MaKAPoV95f bGFw (more content not included)... Normal [facility] Consent for Treatmenton 060 Consent for Treatment [id number] #1.00CD:127 Normal [facility] Discharge Instructionson Discharge Instructions [id number]#1.00CD:127 Normal [facility] Comment on above: Other Comment: incco rrect title Discharge Instructions [id number]#1.00CD:127 Normal [facility] Inpatient Clinical Summaryon 07-26-2020 Inpatient Clinical Summary [address] [address] Clinical Summary Person Information Name: MYA MYLES Ifeoma/[facility] Age: 30 Years : 1990 Sex: Female PCP: Chao Blackwell III, DO Marital Status: Single Race: White Ethnicity: Non- or Language: South African Visit Id: Visit Reason: CONTRACTIONS Speciality: Acuity: Enc Type: OB Triage Med Service: Obstetrics Arrival: 07/26/2020 14:59:40 Discharge: 07/26/2020 16:40:00 Dispo Type: Home ([facility]) Address: [address] [place] [address] [address] [id number] Provider Notes: Diagnosis: Problems Active Insomnia Chronic [...] Follow up: With: Address: When: Funmilayo ESCOBEDO [place] [phone] Business (1) Within 1 week Comments: Call for any problems. Call for fever > 100.5 F Return for contractions closer, longer, and harder Return for decreased movement Return if ruptured membranes or vaginal bleeding Type Location Start Finish State SOV [facility] 07/27/2020 2:45 PM 07/27/2020 3:00 PM Confirmed WH SOV [facility] 08/02/2020 4:30 PM 08/02/2020 4:45 PM Confirmed WH BIENVENIDO [facility] 09/15/2020 9:00 AM 09/15/2020 9:15 AM Confirmed Patient Education Information: Normal [facility] Inpatient Patient Summaryon 07-26-2020 Inpatient Patient Summary [address] [address] Patient Discharge Instructions PERSON INFORMATION Name: MYA MYLES Date of : 1990 Current Date: 07/26/2020 19:27:26 PHYSICIANS Admitting Physician: Funmialyo ESCOBEDO MD Primary Care Physician: Chao Blackwell [...] Follow up: With: Address: When: Funmilayo ESCOBEDO [place] [phone] Business (1) Within 1 week Comments: Call [...] provider. Type Location Start Finish State [facility] 07/27/2020 2:45 PM 07/27/2020 3:00 PM Confirmed SOV [facility] 08/02/2020 4:30 PM 08/02/2020 4:45 PM Confirmed BIENVENIDO [facility] 09/15/2020 9:00 AM 09/15/2020 9:15 [...] Leaflets: You may receive a survey from [employer] asking you to rate your care experience. Your feedback is important and will help us understand what we do well and how we can improve the quality of care we provide to you, your loved ones and our community. It?s an honor to serve you. Thank you for choosing [facility] Normal [facility] UA With Cult Reflexon 2020 Bacteria LM Ql (Urine sed) TRACE Normal Trace [facility] Comment on above: Performed By: #### 2 [id number], [id number], [id number] #### [facility] [address] [place] [address] Bilirubin Ql (U) Negative Normal Negative [facility] Comment on above: Performed By: #### 2 673835, [id number], [id number] #### [facility] [address] [place] [address] Clarity (U) CLEAR Normal Clear [facility] Comment on above: Performed By: #### 2 091993, [id number], [id number] #### [facility] [address] [place] [address] Color (U) YELLOW Normal Yellow [facility] Comment on above: Performed By: #### 2 343764, 6451926, [id number] #### [facility] [address] [place] [address] Epithelial cells.squamous LM.HPF (Urine sed) [#/Area] 5-8 Normal 0-2 [facility] Comment on above: Performed By: #### 2 356154, 7007396, [id number] #### [facility] [address] [place] [address] Glucose Test strip (U) [Mass/Vol] Negative Normal Negative [facility] Comment on above: Performed By: #### 2 252210, 2902502, [id number] #### [facility] [address] [place] [address] Hemoglobin Ql (U) TRACE Abnormal Negative [facility] Comment on above: Performed By: #### 2 372538, 6460459, [id number] #### [facility] [address] [place] [address] Ketones (U) [Mass/Vol] TRACE Abnormal Negative Fi [facility] Comment on above: Performed By: #### 2 800017, 4748149, [id number] #### [facility] [address] [place] [address] [facility]. RBC (Bld) [Mass ratio] 0-3 Normal 0-3 [facility] Comment on above: Performed By: #### 2 705669, 0846387, [id number] #### [facility] [address] [place] [address] Nitrite Ql (U) Negative Normal Negative [facility] Comment on above: Performed By: #### 2 130727, 5482499, [id number] #### [facility] [address] [place] [address] pH (U) 6.0 [pH] Invalid Interpretation Code 5.0-9.0 [facility] Comment on above: Performed By: #### 2 758441, 4299158, [id number] #### [facility] [address] [place] [address] Protein (U) [Mass/Vol] Negative Normal Negative [facility] Comment on above: Performed By: #### 2 229498, 4469464, [id number] #### [facility] [address] [place] [address] Specific gravity (U) [Rel density] 1.020 Invalid Interpretation Code 1.005-1.030 [facility] Comment on above: Performed By: #### 2 356681, 5589756, [id number] #### [facility] [address] [place] [address] Type of Urine collection method Clean Catch Normal [facility] Comment on above: Performed By: #### 2 836596, 9586963, [id number] #### [facility] [address] [place] [address] Urobilinogen Qn (U) 0.2 {Henny'U}/dL Normal 0.0-1.0 [facility] Comment on above: Performed By: #### 2 375592, 0944530, [id number] #### [facility] [address] [place] [address] WBC Auto Ql (U) TRACE Abnormal Negative [facility] Comment on above: Performed By: #### 2 280627, 9145399, [id number] #### [facility] [address] [place] [address] WBC LM.HPF (Urine sed) [#/Area] 0-5 Normal 0-5 [facility] Comment on above: Performed By: #### 2 925361, 6549854, [id number] #### [facility] [address] [place] [address] Yeast LM Ql (Urine sed) TRACE Normal [facility] Comment on above: Performed By: #### 2 572459, 6411093, [id number] #### [facility] [address] [place] [address] [place]enton 07-22-2020 Consent [id number] #1.00CD:127 Normal [facility] Consent for Procedure/Surger yon 07-22-2020 Consent for Procedure/Surgery [id number] #1.00CD:127 Normal [facility] US Follow Upon US Follow Up [...] Positioning Vertex Amniotic Fluid Volume Normal Normal [facility] Ambulatory Clinical Summaryo n 07-21-2020 Ambulatory Clinical Summary {[id number]}CD:[id number] Normal [facility] Ambulatory Clinical Summary {[id number]}CD:[id number] Normal [facility] Obstetrics Office/Clinic Not jasmine 07-21-2020 Obstetrics Office/Clinic Note Chief Complaint OB 37w, baby moving, swelling fingers and feet goes down with rest and elevating them Obstetric History History (1,0,0,2) # 1 Baby 1 Outcome Date: 2008 Outcome: Live Outcome or Result: Vaginal Gender: Female Gest Age: 41 weeks Wt: 3232 g Hospital: [facility] Labor: -- Child's Name: -- Baby's [...] trimester) Ordered: Office Visit Level 4 Est 00992 TH 2. Obesity complicating , third trimester (O99.213: Obesity complicating , third trimester) Ordered: Office Visit Level 4 Est 81019 TH 3. Depression during (O99.340: Other mental disorders complicating , unspecified trimester) Ordered: Office Visit Level 4 Est 60064 4. 37 weeks gestation of (Z3A.37: 37 weeks gestation of ) Ordered: Office Visit Level 4 Est 58913 TH Orders: metronidazole, 500 mg = 1 tab(s), Oral, q12hr, X 7 day(s), # 14 tab(s), Refills(s) 0, Pharmacy: [facility] #[id number], 158, cm, 07/07/20 20:05:00 EDT, Height/Length Dosing, 88.3, kg, 07/14/20 16:41:00 EDT, Weight Dosing Follow-up With When Contact Information LAURA MACEDO, Funmilayo Ryan In [address] [place] [address]- Additional Instructions: Problem List/Past Medical [...] Protein Urine Dipstick: Negative (07/21/20 16:41:00) Normal [facility] Comment on above: Result Comment: Elec isauroally Signed By: LAURA MACEDO, Funmilayo Stallings\Date and Time Signed: 07/21/20 17:39 EDT Patient [...] Reviewed: 07/07/2019 Elsevier Patient Education ? 2019 [employer] Normal [facility] Provider Letteron 07-21-2020 Provider Letter July 21, 2020 To Whom It May Concern, Mya Myles is scheduled to be induced on 08/04/20. [employer] [address] Normal [facility] Ambulatory Clinical Summaryo n 07-14-2020 Ambulatory Clinical Summary {[id number]}CD:[id number] Normal [facility] Obstetrics Office/Clinic Not jasmine 07-14-2020 Obstetrics Office/Clinic Note Chief Complaint OB 36w, baby moving, [place] in morning, feels like underwear are wet and has to shower frequently. Contractions all night and not able to sleep Obstetric History History (1,0,0,2) # 1 Baby 1 Outcome Date: 2008 Outcome: Live Outcome or Result: Vaginal Gender: Female Gest Age: 41 weeks Wt: 3232 g Hospital: [facility] Labor: -- Child's Name: -- Baby's Father: -- # 2 Baby 1 Outcome Date: 05/26/2013 Outcome: Live Outcome or Result: Vaginal Gender: Male Gest Age: 39 weeks 3 days Wt: 3390 g Hospital: -- [facility] Labor: 5 hr 55 min Child's [...] Test Q0114 Office Visit Level 4 Est 15155 NC 2. Obesity complicating , third trimester (O99.213: Obesity complicating , third trimester) Ordered: Fern Test Q0114 Office Visit Level 4 Est 31877 NC 3. Depression during (O99.340: Other mental disorders complicating , unspecified trimester) Ordered: Fern Test Q0114 Office Visit Level 4 Est 07868 NC 4. 36 weeks gestation of (Z3A.36: 36 weeks gestation of ) Ordered: Fern Test Q0114 Office Visit Level 4 Est 91498 NC 5. Bacterial vaginosis (N76.0: Acute vaginitis) Ordered: Fern Test Q0114 Office Visit Level 4 Est 43108 NC Orders: metronidazole, 500 mg = 1 tab(s), Oral, q12hr, X 7 day(s), # 14 tab(s), Refills(s) 0, Pharmacy: [facility] #[id number], 158, cm, 07/07/20 20:05:00 EDT, Height/Length Dosing, 88.3, kg, 07/14/20 16:41:00 EDT, Weight Dosing Follow-up With When Contact Information Funmilayo ESCOBEDO MD In 1 week [address] [place] [address]- Additional Instructions: Funmilayo ESCOBEDO MD In 1 week [address] [place] [address]- Additional Instructions: Problem List/Past Medical [...] type 2: (more content not included)... Normal [facility] Comment on above: Result Comment: Elec [...] 05/13/2008 Document Revised: 07/07/2019 Document Reviewed: 07/07/2019 [employer] Patient Education ? 2019 [employer]. [facility] Coding Summary.on 07-12-2020 Coding Summary. CD:[id number] Gh0bWw+PGhlYWQ+PE1FV PWjZ88osAAxoQ3GJ0xIO J3WMIRLTEEFGC1PJQ3qe JO8FAaoO0BisnVr AdhumKKxQO38NGt0XRN9 mUxaPLhxzX1dwGKrL8u3 OwZxEI05gJ45XXnlIXJa KjX2PeAmoectsFOq H8pwRoKqdRGiUwh+PHRh YmxlIHdpZHRoPScxMDAl ZxIutFxxPQ8wMu7nUBFt LWNvbGxhcHNlOiBj r4nuPSBbDYrpKC1qmCwm J0TlaIK9KGRhd5g6Uy32 dHI+JVIgILX4rXydVWit h326AbJai1uyCGA2 vCLmBZqpMUY9I74kg3F5 VUXpDUYsMJS8wZR3lS8v oMiwbrjhT3WzkSYyLxS7 UYK6aSYbzF2reUpd ijyqnU7uBgc+F78QYK4M VGXFXR5OEky4E4EbMejt dHI+XD69OCOuOP48zVJf nHEsv4hugTe0IfEp SVTwHOM9yHscBWfih7Xg EXUiE29ipADwi3D5XMAq cAkldLOyPxKsaNE7kD2m YHymazrof9qlroxt Qahnk7utjw08zK31B63l CGqgEXUkAQM4AKUaWUVa hAvaor1rzI7yVp8+IDxj g4qtw2rndAm9DeXm TOKumfWueEqaTTX7y8Ij He94M9QvfLxgu1WbGeg4 id74cIJie7P0aXR3CZml PKXhsQ9iPQkzYrE1 AFBhAdSjuV12aUMcCKqa Su4ytVufsTccOK7oMIWb raokABCucB7xMOMjyHPq zOrdFL1kAMLyeypc y682UaWxZPC0IZPnbVJc U9ZkoA0rUeRnUCCjXHCg E5XmcXTjPLnsP286DSdz ByC2BSTgpnRpE4Gh SQMzxGrmAeR5l5P6Ml1C e9KvxxteCYT8LKfkSSN0 HgV2HwByHqY1Z4FhTaj7 WGRizLttMK1kQ0Rl FUSerpmicgcwtYI6TWBs DWYwdH17hLZlLWhuZy5l c2T5d440WKGfHPUdvX21 Qb8rsXjqQMKagCIP oO3czrmrd7cxvapiYjFy ZHRfZRt2YIa6RBYznLqk EtHkAOJ8JaO3YWD3qTKf cB3rtJkvagbrtV1q Oyc+W53fzS2iCWH1NAJ6 fqpoFBGhzvWmDY82ZO64 E4WrRikrgRNcuYX+PGRp qcMiqSfoYJ9iGdAz d0nnu5OrTTsmJ7HfQBPk APxbJsp5BMTfCXT5qRU5 uC3lNRSxYXgqu2Z6rGL1 K2DwriOqae9cj0jr QBTcAMjrN20wmZWhf4T6 UYXpaNT1PAZubZmmZuZh uF88Vnp+XZOpjNkpe5Nk Cmxbq6beb2ombTn0 IjMwJSIgdmFsaWduPSJ0 x7SvDv29U17iHVtiKXNp DSLwQRHiEYAqkFmhzx2f uH5nQu3+PGNvbCB3 yXM8yO6hQGXiRyM0KQgi R135IvDxnFBnYdvry0cm v1wuuGg0OjDdFXOtzpWl sAwwLYZ1l6WpDk15 E72ePBklLNCrKPYqLSHx XAZjdEdxul9ecT9nVm6+ SM4cx7mxzc68jL20uHU+ BGAwVVQ5yPcwULxs JLDstQ9fAKwoStD5CBOj RzEjuE80qQVnKBvbLw9v uPhsdKsyGN0cTMIeqvvl h810KfXjv7fxKAMw iUMjTIyyTSJ3I82mx0Z5 KATnEFHhZZT2gJC0zQ1c bGlnbjogbGVmdDsgdmVy yFryJAinFQrcU771 IHRvcDsnPlBhdGllbnQg ScClSYt9U6IxCix9MJXy jZplLZ2ijKUgDUauMx4r pXeqwBkrIT8hLZXq wgdnz397JsTpj9vqAREz lLLjQAovXLF2N76ak1Y6 BELqWKYaEAJ8rSK2gC7u bGlnbjogbGVmdDsg zxAdiGzrBUtsIRcrV167 IHRvcDsnPkJpcnRoIERh dRZ6MH41BQ93pMCyz5S7 dCL7R6WxSEEitwqn yoixpPP1KBZjKSAkhR08 Pb9hdYfrKt6gLOOeFCW7 LKOfuOHdM6EpiM5eAzRo WYWpQWQjO7IimHOt ICfcB971YScgEuH9OEUc xgQzG0PjXXImkRsbGtL9 b8V3Bj7LA7O0KC01ZD10 tQMag8H6rKP8A1Cl ZHLafxjfdquhoLM2WCQc FEMboG52Bh9ytJgnLd4w MWVmBGR2VYYvyAKmN5Sw mY5nSwKgVXKpTICc E2HorVChOAnsO572GHbf BhO5PCEnvmWuM4EaWRZr mSglAbN5k7J6Wq5DOZx7 HP07VQ29bQRmw8I8 mZP5T9WzQSWxfuiceauj vNH6ECJyGTKyvV04Ph2k qZgmQt1xZBCbWAX6YNCx uIZhP1HrfM9yRyTs AAArNWSgE5GdvRTmQVuq G998BKbmIcG0JOBzewEe R5KjEYYmdHvqVeS4y8J5 Si7YKEHfPG45VPS9 mFX2GO37JW48U5JxBmyc dGFibGU+PHRhYmxlIHdp ZHRoPScxMDAlJyBzdHls JS1xUe6lYKVzMEDq rRojjRDxAkBdn1vyMBWe PBytWD0klMbgD8FosGP5 WRMya3t1Bj94A02wC7Mj dXA+NKTewNL7ePQ1 yJ9aZtOzAfB5OJnbF802 CcMxsJXpBfsvu7jef0du cNo0BtY2HLOexqQqxRtx MTV7z8QwBo94F93w IHdpZHRoPSIxNSUiIHZh aTzzzl9jrJ5aPb6+PGNv lOU5iTC1uH5kEyRsJmX7 IWurF938GnYtpYYv Zkwqc8enl4aglQt8TxEb UTXygdYjuLfoYMF3l0Nb Et06P9YwiObfn0DsLnk5 cc22fAKsu1E8hZC0 M8VpSLGfutkhwSWeqNeu XI3oXKDobanwAMIjwC3a LQBkL7m9QkXeVlL8ORzf D8TxhuY3UELpuZRl SQmeSBK3C14wg8F7BROl BVEeSQJ8nRB6yQ4rbUsf bjogbGVmdDsgdmVydGlj ERgtONftE764DRNl tGtoGXQcgX6jIDZsiTKa iFrsGD6dVVJsvletFuCN SxjPOq8mZKJXNmZBF1Xb TDwvdGQ+PHRkIHN0 nTtfRHllHLPguY6oSZPd V6p3MmSqLmP7HIhsW5Tx ZNAxkfscGz29uF4zXlRy ThN1DMphK2YmqtQ2 QZVxuWWiJQlwFWU0L11h t7H7WHDoXVWnSXV9wBG4 vX5enYhaunhmuXOqnCyk dmVydGljYWwtYWxp G123VSUkrMyhKyJ9NxIe AeY2NAO1I4DoHfq2REMk sQjuJP1qfGOkPXshBb4r fNcygNtbKP0kEZLf dtdmXWLzqF1zENSqxMGc wMamVA9qKQKaklacj381 JjZoAKW0AEBlaFGpX8En yY3qSkPoPUPuNUJl F5PhrVWdIWgrH365EQdk RcQ8XAKidlZaW3IeOFHg sTduElB2x0G0Er7pOHWC ZWFyczwvdGQ+PHRk XKN8sFreIHyhMOIxoB9g AEYpP2a3JsDwNoN5NAxr D0RzSFIcbbzqQs32bG2s VfKjBxI9UGmaU2Tt waO0RSZkiFTkDNzpZIK6 P72gu2X8UEObKYVrGAS8 hFG2aE1qyGzpuurxmLAp dDsgdmVydGljYWwt OHpoA174OIZqfTtcZcUz bWFsZTwvdGQ+PHRkIHN0 uPolPDhpQTZfpL6uQRFk K0k3FvBkUnM1WYqj D7GaUTWlsqisPc19kP5s HqRoClR9JJjfV3AsejC9 CAFerAJwEQuyTJO6B93p y0S8FTVfLIDwQCB6 vHA4gB5nqYqgwmqkhBUg dDsgdmVydGljYWwtYWxp C218ZTIgjHkyEv1CYRQn aWFnZTwvdGQ+PC90 lk58A1MsShhnPvm6IQEd WIK3mCN1vI1jAALjHQhc t5O7nKM4H6IceyOlut9l c3cuBMYrEKtbO17m wXAny3Z3BGXogYF4NAUg gLntZwOfoT90Dmg+PGNv sKgkf7AcPxgwy5vbq5el aIk4DtScHIFirqEi yElkXQF7o6VwSl55J89b IHdpZHRoPSIzMCUiIHZh gOyxae0urV4jFy3+PGNv kUX0sSL8qY9cNlVz UrD8EOwsW853JdPjjJJm Ykejy8uvw2pgdBx5UhXi FLRmsdGgkRzgNJJ1q5Dl Wg04T7AgwNflj3Xs Pad1gx11iGEps2F9jUQ5 M6JlAXRepbvoyEKtrWsf QB7tDNLlziriIXHogE9z CSHsT3u4PgYwOuY5 NLthB8IgipA6PWWyuCUu PYWrdKHVvR4emxijc3ms bowgSkDwXXYaIPw7PMy2 LWFsaWduOiBsZWZ0 LlF2NSI7gLGvyH5ztOke iriauE0sHbn+QRt2a1gf uKAoYG1vvYH5PM37WI89 yQUkj9W7tEC7Y3Ef YWYjkuvqsbdxpUQ1XVXa BYWycY62Pr4jaYqpUt2w CVDnSFS4BKMebSFsH6Ol oS2pSzAeBWPaFYEk I7EpwLQnFMpyB347EWmz UlE8OBFoovOdJ3PcZRQk aGwkVkZ6f1L1Xg4ABC98 VS70XO52yWXwn2V5 eIV8X5KlSAHlisrzedxd cZD8GSShSPAkyQ45Sq2i cLhjJc7fZTIeRMH2QXCa jOIcT1RylL6fSdZq HUJeRTAoZ2FkiXAsNYxg A746CMjeLvG9KIKpmpJb I2FxBZMypIjvRfX4n0Q7 Lj3ONl08BS36YT49 yVQto4H3eKY1M5MyNYHq cpzvcjlkrWE3WXMbAEPn eO99Sp7vzNcsKu4yAFGq RYK5WCWqoWJkJ8Fi hM8iMzTxWIJrLJBeA4Wa xSHjHVtrJ761TNxhYjS9 BBTllvVaG4GtTXSppXvb NlK4x3C4Mr5VUQnn xku8Y0AzXoptyJN+PC90 YBJbER59uYFdkYRbo5pl mYh1ZmXvPBMaAES2dYtd DMsry3LbUQQdO56b bGFw (more content not included)... Normal [facility] Insurance Correspondenceon 0 07-12-2020 Insurance Correspondence [id number] 8#[email or web address]:127 Normal [facility] Insurance Correspondence Off iceon 07-12-2020 Insurance Correspondence Office [id number] 1#1.00CD:127 Normal [facility] Nursing Assessmenton 021 Nursing Assessment [id number] 8#1.00CD:127 Normal [facility] Group B Strep by PCRon 07-09 Group B Strep colonization by PCR Negative Normal Negative [facility] Comment on above: Order Comment: vagin al swab Performed By: #### 2 [id number] #### [facility] [address] [place] [address] ABO/Rhon 07-08-2020 ABO/Rh Positive Invalid Interpretation Code [facility] Comment on above: Performed By: #### 1 [id number], [id number] #### [facility] [address] [place] [address] ABO/Rh History Checkon 07-08 ABO/Rh History Check Verified Hx Blood Type Normal [facility] Comment on above: Performed By: #### 1 [id number], [id number] ####[facility] [address] [place] [address] ABSCon 07-08-2020 ABSC Gel Interp Negative Normal [facility] Comment on above: Performed By: #### 1 [id number] ####[facility] [address] [place] [address] BUNon 07-08-2020 Urea nitrogen [Mass/Vol] 7 mg/dL Normal 07-08 [facility] Comment on above: Performed By: #### 2 [id number], [id number], [id number] #### [facility] [address] [place] [address] Blood Bank ID#on 07-08-2020 BBID# [id number] Invalid Interpretation Code [facility] Comment on above: Performed By: #### 1 [id number] ####[facility] [address] [place] [address] CBC w/Indiceson 07-08-2020 Erythrocyte distribution width (RBC) [Ratio] 13.6 % Normal 10.9-14.2 [facility] Comment on above: Performed By: #### 2 [id number], [id number], [id number] #### [facility] [address] [place] [address] Hematocrit (Bld) [Volume fraction] 28.9 % Low 34.0-46.0 [facility] Comment on above: Performed By: #### 2 [id number], [id number], [id number] #### [facility] [address] [place] [address] Hemoglobin (Bld) [Mass/Vol] 9.7 g/dL Low 12.0-16.0 [facility] Comment on above: Performed By: #### 2 302956, 6507764, [id number] #### [facility] [address] [place] [address] MCH (RBC) [Entitic mass] 27.4 pg Normal 27.0-34.0 [facility] Comment on above: Performed By: #### 2 610000, 7070623, [id number] #### [facility] [address] [place] [address] MCHC (RBC) [Mass/Vol] 33.5 g/dL Normal 31.4-36.0 [facility] Comment on above: Performed By: #### 2 379219, 6083293, [id number] #### [facility] [address] [place] [address] MCV (RBC) [Entitic vol] 81.7 fL Normal 80.0-100.[address] [facility] Comment on above: Performed By: #### 2 681684, 1635623, [id number] #### [facility] [address] [place] [address] 24820 Platelet mean volume (Bld) [Entitic vol] 7.9 fL Normal 6.4-10.8 [facility] Comment on above: Performed By: #### 2 585934, 7084061, [id number] #### [facility] [address] [place] [address] Platelets (Bld) [#/Vol] 320.0 E9/L Normal 150.0-500.0 [facility] Comment on above: Performed By: #### 2 135949, 8750995, [id number] #### [facility] [address] [place] [address] RBC (Bld) [#/Vol] 3.5 E12/L Low 4.3-5.9 [facility] Comment on above: Performed By: #### 2 721657, 4600818, [id number] #### [facility] [address] [place] [address] WBC corrected for nucl RBC Auto (Bld) [#/Vol] 9.9 E9/L Normal 4.0-11.0 [facility] Comment on above: Performed By: #### 2 375093, 8833904, [id number] #### [facility] [address] [place] [address] Creatinineon 07-08-2020 Creatinine [Mass/Vol] 0.4 mg/dL Low 0.5-1.3 [facility] Comment on above: Performed By: #### 2 153335, 7408419, [id number] #### [facility] [address] [place] [address] Discharge Instructionson Discharge Instructions [id number]#1.00CD:127 Normal [facility] FSPon 07-08-2020 Fibrin+Fibrinogen fragments (S) [Mass/Vol] <10 Normal <10 [facility] Comment on above: Performed By: #### 2 025506, 8485361, [id number] #### [facility] [address] [place] [address] Stainon 07-08-2020 FMHV 0 mL Invalid Interpretation Code [facility] Comment on above: Performed By: #### 2 001116, 7009639, [id number] #### [facility] [address] [place] [address] Negative Control Negative Normal [facility] Comment on above: Performed By: #### 2 350667, 9216593, [id number] #### [facility] [address] [place] [address] Fibrinogenon 07-08-2020 Fibrinogen Coag (PPP) [Mass/Vol] 451 mg/dL High 200-393 [facility] Comment on above: Performed By: #### 2 890801, 9116521, [id number] #### [facility] [address] [place] [address] Hep Func Panelon 07-08-2020 Bilirubin.indirect [Mass or moles/Vol] UTC Abnormal 0.1-0.9 [facility] Comment on above: Result Comment: Resu lt verified by Discern Rule. Performed result UTC (Unable to Calculate) was sent as an Alpha code due the inability to calculate a valid numeric value. Performed By: #### 2 742502, 8986957, [id number] #### [facility] [address] [place] [address] Albumin [Mass/Vol] 2.6 g/dL Low 3.3-5.0 [facility] Comment on above: Performed By: #### 2 486430, 8280411, [id number] #### [facility] [address] [place] [address] Albumin/Globulin (S) [Mass conc ratio] 0.8 Low 1.1-2.2 [facility] Comment on above: Performed By: #### 2 006488, 4529940, [id number] #### [facility] [address] [place] [address] ALP [Catalytic activity/Vol] 108 Int._Unit/L High 21-98 [facility] Comment on above: Performed By: #### 2 387311, 6573377, [id number] #### [facility] [address] [place] [address] ALT No additional P-5'-P [Catalytic activity/Vol] 13 Int._Unit/L Normal 6-46 [facility] Comment on above: Performed By: #### 2 777930, 8684425, [id number] #### [facility] [address] [place] [address] AST [Catalytic activity/Vol] 22 Int._Unit/L Normal 5-43 [facility] Comment on above: Performed By: #### 2 448438, 9873576, [id number] #### [facility] [address] [place] [address] Bilirubin [Mass/Vol] 0.4 mg/dL Normal 0.0-1.1 [facility] Comment on above: Performed By: #### 2 046123, 7388960, [id number] #### [facility] [address] [place] [address] Bilirubin.direct [Mass/Vol] mg/dL Normal 0.1-0.4 [facility] Comment on above: Performed By: #### 2 608018, 8011382, [id number] #### [facility] [address] [place] [address] Globulin (S) [Mass/Vol] 3.4 g/dL Normal 1.4-4.[address] [facility] Comment on above: Performed By: #### 2 196043, 3271238, [id number] #### [facility] [address] [place] [address] Protein [Mass/Vol] 6.0 g/dL Normal 6.0-7.8 [facility] Comment on above: Performed By: #### 2 712955, 4668122, [id number] #### [facility] [address] [place] [address] Inpatient Clinical Summaryon 07-08-2020 Inpatient Clinical Summary [address] [address] Clinical Summary Person Information Name: MYA MYLES [place] Age: 30 Years : 1990 Sex: Female PCP: Chao Blackwell III, DO Marital Status: Single Race: White Ethnicity: Non- or Language: South African Visit Id: Visit Reason: Speciality: Acuity: Obs Enc Type: OB Triage Med Service: Obstetrics Arrival: 07/07/2020 19:39:51 Discharge: 07/08/2020 21:22:00 Dispo Type: Home (Routine DC) Address: [address] [place] [address] [address] [place] [id number] Provider Notes: Diagnosis: Problems Active Obesity complicating [...] Follow up: With: Address: When: [place] [address] Business (1) In 3 days 07/11/2020 Comments: Call Dr. Kramer office Saturday morning to see if she wants to see you sooner. If not keep appointment. Call for any problems. Call for severe abdominal pain Call physician for heavy vaginal bleeding (more content not included)... Normal [facility] Inpatient Patient Summaryon 07-08-2020 Inpatient Patient Summary [address] [address] Patient Discharge Instructions PERSON INFORMATION [...] Address: When: Funmilayo ESCOBEDO [address] [place] [address] [place] (1[place] In 3 days 07/11/2020 Comments: Call Dr. [...] Location Start Finish State WH SOV [facility] 07/14/2020 4:30 PM 07/14/2020 4:45 PM Confirmed WH Ultrasound [facility] 07/21/2020 4:00 PM 07/21/2020 4:45 PM Confirmed WH SOV [facility] 07/21/2020 4:30 PM 07/21/2020 4:45 PM Confirmed WH SOV [facility] 07/27/2020 2:45 PM 07/27/2020 3:00 PM Confirmed WH SOV [facility] 08/02/2020 4:30 PM 08/02/2020 4:45 PM Confirmed WH BIENVENIDO [facility] 09/15/2020 9:00 AM 09/15/2020 9:30 AM Confirmed [...] Document Released: 05/03/2009 ExitCare? Patient Information ?2009 [employer]. Labor and Information normally lasts 39?41 weeks. [...] or tightening. (more content not included)... Normal [facility] Lyteson 07-08-2020 Anion gap [Moles/Vol] 9 mmol/L Normal 6-16 [facility] Comment on above: Performed By: #### 2 913627, 8312047, [id number] #### [facility] [address] [facility] [place] [address] Chloride [Moles/Vol] 108 mmol/L Normal 101-111 [facility] Comment on above: Performed By: #### 2 063960, 8353157, [id number] #### [facility] [address] [place] [address] CO2 [Moles/Vol] 21 mmol/L Normal 21-31 [facility] Comment on above: Performed By: #### 2 626007, 5681106, [id number] #### [facility] [address] [place] [address] Potassium [Moles/Vol] 3.4 mmol/L Low 3.5-5.3 [facility] Comment on above: Performed By: #### 2 283871, 1970668, [id number] #### [facility] [address] [place] [address] Sodium [Moles/Vol] 135 mmol/L Normal 135-145 [facility] Comment on above: Performed By: #### 2 116334, 4509146, [id number] #### [facility] [address] [place] [address] PT & PTTon 07-08-2020 aPTT Coag (PPP) [Time] 25.4 second(s) Normal 25.1-36.5 [facility] Comment on above: Result Comment: Hepa rin therapeutic range (represented by Anti-Factor Xa activity of 0.2 - 0.4 U/mL) corresponds to PTT of 56.6 - 109.0 sec. Performed By: #### 2 930316, 3097432, [id number] #### [facility] [address] [place] [address] INR Coag (PPP) [Relative time] 1.0 {INR} Invalid Interpretation Code [facility] Comment on above: Result Comment: INR results are specifically intended to assess patients stabilized on long-term Anticoagulation therapy suggested INR?s ?Less Intensive Anticoagulation? 2.0 ? 3.0 Conventional Range 3.0 ? 4.5 Performed By: #### 2 016720, 5504675, [id number] #### [facility] [address] [place] [address] PT Coag (PPP) [Time] 12.2 second(s) Normal 10.2-12.9 [facility] Comment on above: Performed By: #### 2 233604, 6652676, [id number] #### [facility] [address] [place] [address] Uric Acidon 07-08-2020 Urate [Mass/Vol] 2.7 mg/dL Normal 2.2-7.4 [facility] Comment on above: Performed By: #### 2 273488, 1110092, [id number] #### [facility] [address] [place] [address] eGFRon 07-08-2020 GFR/1.73 sq M.predicted among blacks MDRD (S/P/Bld) [Vol rate/Area] mL/min/{1.73_m2} Normal >=59 [facility] Comment on above: Order Comment: Order Added by Discern Expert. Result Comment: eGFR is race adjusted. AA=. Performed By: #### 2 927626, 9927271, [id number] #### [facility] [address] [place] [address] GFR/1.73 sq M.predicted among non-blacks MDRD (S/P/Bld) [Vol rate/Area] mL/min/{1.73_m2} Normal >=59 [facility] Comment on above: Order Comment: Order Added by Discern Expert. Result Comment: Registered Public Health Nurse ramesh kidney disease could be indicated at eGFR's of less than 60 mL/min/1.73m2. Kidney failure is indicated at less than 15 mL/min/1.73m2. Performed By: #### 2 977706, 3062414, [id number] #### [facility] [address] [place] [address] AmniSureon 07-07-2020 PAMG-1 Protein Negative Normal Negative [facility] Comment on above: Performed By: #### 2 135324, 3067547, [id number] #### [facility] [address] [place] [address] PAMG-1 Protein Internal Control Positive Normal Positive [facility] Comment on above: Performed By: #### 2 685253, 8674854, [id number] #### [facility] [address] [place] [address] Consent for Treatmenton 06-19 Consent for Treatment [id number] 05 [id number] 3#1.00CD:127 Normal [facility] Consent for Treatment [id number]#1.00CD:127 Normal [facility] FFNon 07-07-2020 Fibronectin. Ql (Vag fld) Negative Normal [facility] Comment on above: Result Comment: In [...] the antibody-antigen reaction. Performed By: #### 2 592837, 6013264, [id number] #### [facility] [address] [place] [address] UA With Cult Reflexon 2020 Bacteria LM Ql (Urine sed) 1+ /HPF Abnormal Trace [facility] Comment on above: Performed By: #### 2 213730, 0697312, [id number] #### [facility] [address] [place] [address] Bilirubin Ql (U) Negative Normal Negative [facility] Comment on above: Performed By: #### 2 695779, 0935494, [id number] #### [facility] [address] [place] [address] Clarity (U) CLEAR Normal Clear [facility] Comment on above: Performed By: #### 2 755815, 3908561, [id number] #### [facility] [address] [place] [address] Color (U) YELLOW Normal Yellow [facility] Comment on above: Performed By: #### 2 287086, 9813596, [id number] #### [facility] [address] [place] [address] Epithelial cells.squamous LM.HPF (Urine sed) [#/Area] /[HPF] Normal 0-2 [facility] Comment on above: Performed By: #### 2 252593, 5521701, [id number] #### [facility] [address] [place] [address] Glucose Test strip (U) [Mass/Vol] Negative Normal Negative [facility] Comment on above: Performed By: #### 2 352658, 2724862, [id number] #### [facility] [address] [place] [address] Hemoglobin Ql (U) 2+ Abnormal Negative [facility] Comment on above: Performed By: #### 2 636995, 7453887, [id number] #### [facility] [address] [place] [address] Ketones (U) [Mass/Vol] TRACE Abnormal Negative [facility] Comment on above: Performed By: #### 2 013201, 6303419, [id number] #### [facility] [address] [place] [address] [facility]. RBC (Bld) [Mass ratio] >30 Abnormal 0-3 [facility] Comment on above: Performed By: #### 2 639587, 7856344, [id number] #### [facility] [address] [place] [address] Mucus Ql (Urine sed) TRACE Normal [facility] Comment on above: Performed By: #### 2 007789, 2070418, [id number] #### [facility] [address] [place] [address] Nitrite Ql (U) Negative Normal Negative [facility] Comment on above: Performed By: #### 2 768722, 8668333, [id number] #### [facility] [address] [place] [address] pH (U) 5.5 [pH] Invalid Interpretation Code 5.0-9.0 [facility] Comment on above: Performed By: #### 2 547839, 8984471, [id number] #### [facility] [address] [place] [address] Protein (U) [Mass/Vol] Negative Normal Negative [facility] Comment on above: Performed By: #### 2 283791, 3015889, 115362154 #### [facility] [address] [place] [address] Specific gravity (U) [Rel density] 1.025 Invalid Interpretation Code 1.005-1.030 [facility] Comment on above: Performed By: #### 2 482632, 8461145, [id number] #### [facility] [address] [place] [address] Type of Urine collection method Clean Catch Normal [facility] Comment on above: Performed By: #### 2 186904, 0059309, [id number] #### [facility] [address] [place] [address] Urobilinogen Qn (U) 0.2 {Henny'U}/dL Normal 0.0-1.0 [facility] Comment on above: Performed By: #### 2 174340, 6075469, [id number] #### [facility] [address] [place] [address] WBC Auto Ql (U) Negative Normal Negative [facility] Comment on above: Performed By: #### 2 865383, 6384795, [id number] #### [facility] [address] [place] [address] WBC LM.HPF (Urine sed) [#/Area] 0-5 Normal 0-5 [facility] Comment on above: Performed By: #### 2 485187, 7384471, [id number] #### [facility] [address] [place] [address] Ambulatory Clinical Summaryo n 07-06-2020 Ambulatory Clinical Summary {[id number]}CD:[id number] Normal [facility] Obstetrics Office/Clinic Not jasmine 07-06-2020 Obstetrics Office/Clinic Note Chief Complaint OB visit 34 weeks 6 days. Obstetric History History (1,0,0,2) # 1 Baby 1 Outcome Date: 2008 Outcome: Live Outcome or Result: Vaginal Gender: Female Gest Age: 41 weeks Wt: 3232 g Hospital: [facility] Labor: -- Child's Name: -- Baby's [...] Stable. Ordered: Office Visit Level 3 Est 39445 TH 2. Obesity complicating , third trimester (O99.213: Obesity complicating , third trimester) Doing well managing weight gain. Ordered: Office Visit Level 3 Est 55060 TH 3. Supervision of high risk in third trimester (O09.93: Supervision of high risk , unspecified, third trimester) Follow up in 2 weeks for appt and growth US. PTL precautions until 37 wks. Ordered: Office Visit Level 3 Est 73756 TH 4. 34 weeks gestation of (Z3A.34: 34 weeks gestation of ) Ordered: Office Visit Level 3 Est 43385 TH Follow-up With When Contact Information [facility] [place] In [address] [place] [address]- Additional Instructions: Problem List/Past Medical History Ongoing [...] Protein Urine Dipstick: Negative (07/06/20 14:59:00) Normal [facility] Comment on above: Result Comment: Elec [...] Document Reviewed: 07/23/2008 ExitCare? Patient Information ?2013 [employer]. [facility] Follow Upon Follow Up Exam [...] Signed by: Yousif Toribio M.D. Transcribed by: [facility] Technologist: ADEN Technical Comments CLIFFORD 08/11/20 CLIFFORD Obtained CLIFFORD by US GA 33w 0d History 3 Para 2 Transabdominal Ultrasound Performed Placenta Location posterior Placenta Grade 1 2 Positioning Vertex Amniotic Fluid Volume Normal Normal [facility] Consenton 06-24-2020 Consent [id number] #1.00CD:127 Normal [facility] Ambulatory Clinical Summaryo n 06-23-2020 Ambulatory Clinical Summary {[id number] [id number]}CD:[id number] Normal [facility] Ambulatory Clinical Summary {[id number] [id number]}CD:[id number] Normal [facility] Obstetrics Office/Clinic Not jasmine 06-23-2020 Obstetrics Office/Clinic Note Chief Complaint OB 33w, baby moving, swelling in feet. Having heartburn for about two weeks. Obstetric History History (1,0,0,2) # 1 Baby 1 Outcome Date: 2008 Outcome: Live Outcome or Result: Vaginal Gender: Female Gest Age: 41 weeks Wt: 3232 g Hospital: [facility] Labor: -- Child's Name: -- [...] trimester) Ordered: Office Visit Level 4 Est 04752 NC 2. Obesity complicating , third trimester (O99.213: Obesity complicating , third trimester) Ordered: Office Visit Level 4 Est 37180 NC 3. Depression during (O99.340: Other mental disorders complicating , unspecified trimester) Ordered: Office Visit Level 4 Est 66279 NC 4. 33 weeks gestation of (Z3A.33: 33 weeks gestation of ) Ordered: Office Visit Level 4 Est 78105 NC Encounter for immunization (Z23: Encounter for immunization) Ordered: tetanus/diphtheria/p ertussis, acel (Tdap), 0.5 mL, IntraMuscular, Once, Stop date 06/23/20 16:00:00 EDT, Routine, Start date 06/23/20 16:00:00 EDT EACH ADD'L Health And Safety Specialist Admin Component 22769 EACH ADD'L Health And Safety Specialist Admin Component 50474 FIRST VACCINE Health And Safety Specialist Admin Charge 62111 Orders: famotidine, 20 mg = 1 tab(s), Oral, BID, # 60 tab(s), Refills(s) 2, Pharmacy: [id number], 157, cm, 06/23/20 15:10:00 EDT, Height/Length Dosing, 86.7, kg, 06/23/20 15:10:00 EDT, Weight Dosing Follow-up With When Contact Information LAURA MACEDO, Funmilayo Ryan In [address] [place] [address]- Additional Instructions: Problem List/Past Medical [...] Protein Urine Dipstick: Negative (06/23/20 15:09:00) Normal [facility] Comment on above: Result Comment: Elec tronically Signed By: LAURA MACEDO, Funmilayo Garner.br\Date and Time Signed: 06/23/20 15:40 EDT Patient [...] keep your urine pale yellow. ? Take cnvu-eal-hkvpivs and prescription medicines only as told by [...] 02/04/2006 Document Revised: 05/25/2019 Document Reviewed: 05/09/2017 [employer] Patient Education ? 2019 [employer] First Stage of Labor Labor is [...] monitor strap (more content not included)... Normal [facility] Coding Summary.on 06-12-2020 Coding Summary. [id number] Gh0bWw+PGhlYWQ+PE1FV IWbM76jvECtkH1VY8dFG I7MTOKWUZBXSZ3GJC8xd LJ4HPxmW0FtsoYo QqjetHSqCW61OCc5MKY1 lRsfNTwhcO6ucKZlX7p4 WtDuVE76qC44LNqmCASw AaD7EiYkxohbaWJc Z0xzTuOiaPQsPnf+PHRh YmxlIHdpZHRoPScxMDAl PxRutUxzWX7cFd5gADUv LWNvbGxhcHNlOiBj m7ukGPXkDBztUR5thHgq C9NmbJP6LERgn5q8Fy63 dHI+ROCsJKK5qWphNUxo p443JpFlj5xfYMU7 pASrJLuzAYR9N59ox8Y1 MMQwAMDbDFK0nTO2uW6s lPxshcyxH7YtlDTpMuK5 NUO6dRNuuI2mfNuc ygdiuS3rRux+K29TUT8R WXIDMO8ZAmk0V6SeLuas dHI+AH26UVYqXT86zJOy vOHtd0lufLq8VqXn RABgNZF8hMhbTWfng9Ld SVDxB60duFClg2L0BAKg mLcllPOnZpXkcGC3aJ3u ZYfqdrine2efjbmg Zzrxp6qzfs24pV03K57y MXqsNCUhGJY7DXMlTXAr gGyldm2ooI4cMy9+IDxj s5frr4axgQu5HeOi BROzxaFbbRcbXUG8y9Jh Rw81Z7IyeUftq2GhXld7 lg48cLRve6E5hUX3GGmh KWKafG1fHUpgKkO4 CEQtVuYexC81tUNqSNoq Xb0xkEpfvIqjUR9gYHPi jizpWMLloY2pXZBdaILe iIkaIF2sBBPfxmfl e047HdPvBNB2DPIehFLf F7MvhJ0uZmQeUSCxWHBn L7JnyUTfTLglP895DNbs IjH3KVOemcRjP9Cy YOUjqEycRrZ7e3V4Wc2H o9QkjdnsBLW3LLmqIFC3 SxB1EmUsJvW6G8TeYln0 EPYtrGpgQS5hQ6Pa ZBJtkwntcmmpjEB0MOZr OMBbsD91qGXxYZnoHh4h d6H6p601FCEtYEEpxE00 Gh0ndHuhFLWbvPUI uK5bteyuu1sfcuibEtEb WPCgLRa1JWh0WZKunRpc JyFwAPE2PoB9UHG7yTEb nY1nbObrltgfuH2c Oyc+F44taJ0nOBR9IEH1 ijxeMWCzzdRcRT01QV82 U1MlWnidpBKwcZT+PGRp fzTxtAkvAY7vHwEa b1eqc1UdSIlxA2BsJIDr CKjsXhs8NHVoBEE0oAK4 rB2fFNMwQZuug5C8lJW1 H6RmndNnzq9pg4wa SNYvTGnyM04jeXTld0N9 PYXhgNK5YVMcfLfcNeOm yI80Wyl+RUAwtYbwr9Ck Ljnpx3pga3gbxNm5 IjMwJSIgdmFsaWduPSJ0 v6TdRw17F56kGDpzQZZq WHEoQZNwTMCeoVibxp7k yZ9kPk1+PGNvbCB3 vMQ5fO8qUMBsYoY2VFkp K534SkEryIFxYzanp7si t3jxnCh4YuOkSZOerxXt mKunDPX2s1ThJl11 C06aGUdbQLVcCGCeYJTc AYOijVywkv3yvP9wWs1+ JJ7dn9rcix14nV82xTM+ AYMpCSM5gNdcAUqi UUBguE7qQNeoWiX4QQYm HnQaaN24tAAeAExsRe5d mZfhuQshXP5rLYRwsrny a165AwXqt6xjKGWr tGUxPWhlTLX8N99mx5J1 ESSiLDZbVUY2mCM5eW3c bGlnbjogbGVmdDsgdmVy lVqvHShnCGhgU612 IHRvcDsnPlBhdGllbnQg DgYxSXb4N3EkZww9HCKt bSkfNF2ugVFxVJluRy7k cCegqOnrNC6bGXJk vppng066LrKni3zdMQFj cNCwBYdvDIZ6L52mr8D7 QOHoNXYoECS2aZP7sR9e bGlnbjogbGVmdDsg zoEbeIimJUmlZEikE544 IHRvcDsnPkJpcnRoIERh mYJ8BL67IR99oXRbr3W6 tBL3F9MxHZYpabpd zucqhAQ2QAHpDVTwgR22 Bf0krOupFb1fWCJhNYR9 HNPkjZBxD8AkwR0xElJp YDRwPKJiM7JdrZIb UZzqN233IGkhDyU7TZDj vtKzA0QgKZBxaWugHyA9 e1G8Fn8QA1U8BZ27PI76 nUCea4O0xCD6C1Nf GLHhsbpdleoyeWV6ZBAj DVDqcV83Yo6sgRppDe6k DWEoODD8IYXmzDMsI0Qi bU7uDqSaCTEdQTIq J9GzsAPtACwiK897CXiu XhO4URPeqoDbV5MzWJHk wRanHkB5l5G4Kb2WNQe7 YQ04BR47gDMvc3B4 rOS2K6OaGWNtghdsqali mXH5HFTmGFRlpJ66Nd1l sBufYs8iBDLdFRH9XNBe rAHpU7MdbB2bKoUh GTXnBJNgC1CtiALsKCmy Y782CTtlNuQ3LMAuqpZc J3QeUXOmuXtfVsL0w6K7 Yz0JBLDwIA00WZJ4 iGL7HO64BG77U2QuXobo dGFibGU+PHRhYmxlIHdp ZHRoPScxMDAlJyBzdHls VT0gGy9vIQHmEMFt jAnbyTHiDyHgh5yjPEYv HKdmYR6dsQqgE3AxoVK8 NUIko7u7Yu17N79wX9Zk dXA+QXDkeRC1qEF4 dA0kJpSsPyB8JNgaM215 XhQjvANfUjqew0yau0fe jNr0YvD8WJTioiEdbWdz PLB0z9NlDr09V34p IHdpZHRoPSIxNSUiIHZh aWsjhh7liU1pSl6+PGNv fUC4bEG9iC0lMfZhIxU2 QRnsB634WfSsqCQz Fvsxf9phc9exrBr4RkTl HNMfbdSofHltMAT9g4Qh Pt79V7JrxAabp8ZzTsi7 kt09dFOan6D5kXK3 P0TkKMCygprfsTJosXah ZF9nNROjcpvaIFJcbO0o QQZiH5q5MxPiRpM7LIzy K6UcxzC8FHIlqDTg QVgdBSF9Z79hg2R8XECb STRhRDT2cZB9cZ8laQec bjogbGVmdDsgdmVydGlj PHyfRLcsB364FWAt cVktFDVxaE6bMXQspVHo wJfsQJ5cKTFczsyyDpLH RopDNo6mFRXMNgRMD4Ec TDwvdGQ+PHRkIHN0 gVdfIWkzCOMqtO2vUKJk J6e4PnDkQxT9UHycB6Lz OOZkwrrpFg88sR3kNaHx QxS6GZcdD3WjuvR0 SQZavGNxKSrlBKF1C60l z5N9SCHbUWTvJNC3kSD5 mI6cdXlyxkbonRKrqKpj dmVydGljYWwtYWxp T665KOBfdRoaOxB4HaKc CgF7TVD5C9QkVxk9TEZh oAhdOS1oaSNwBOywRv4c eMblxZhqQY8vXXDh llfnGTZtcX0nTNMqvQXo jLzbXC2yWKPyjjwai780 LoGqREI5AJImfHMbB8Wr iD1bEwDyFSMzJSLe C3IkyMNuOQvgC587UXvy PhZ8CNClvcExQ7WvXFYl mClyOeW7p6L1Uy7oLLAN ZWFyczwvdGQ+PHRk MCO7lKoxKPxsMXWkdW5s CNBcW7t9TcKeEgU6YQaj Q5VoJRKlraaiQf15lX7r PnVnAiP8VNjhY0Fr edX0FWShzSPaJVmrGUB5 D46gh8X6JQIrFWMuKUR6 kSY4lR5ueUxpnfextGZg dDsgdmVydGljYWwt ZRiuR365EBXjzFlwUbMb bWFsZTwvdGQ+PHRkIHN0 jLocXAraJGRwdW7xYIPk R0e7WjGgKmA8NHaj N4LzXWFpouzmDc14sO4c EzMbVfK4GSvsY2HjsfN6 VNHllDGcWBisTBU7F89q q4H8BQRrUJUdEEX3 tEP8yL3ydGkxuambyIKd dDsgdmVydGljYWwtYWxp X807SQOpoXulZs94vWUb gBzbtxQ5M2HwMcpo dHI+UF31MMWdTH74iTFj gWYlc1qqbEj1YeOmEWQb IJF1zRioPLprb7QmTYAs J99hrZCrr2M3JCAi lIrajVQaJoVyaKJ1nE9d PKnqpuwyn2tdcfifOkbh l2fgse23pU68W20yCRgi ZHRoPSIzMCUiIHZh oEodij0vhF7aVt1+PGNv uXY0jJB7tF8dSmAjLtK3 JHqtR148BbElyZXxSxwk c2ekc1zinVr1FiXu SQNihaRkvKefIDM4e3Ls Ci81U95fVPqgSLWnFQSw MABfTFIuzTkmws4exI5s Ii8+HS4lx0uwdo19 mK62sWO+IPKoAGO2gZty AUfvMGWzoT9hEMufZtM7 YFRzVnRwiL99kPSbACyb Ql7khBbguUvxGE6v CFFobuxle606TmYlj1hb OTVscHFuCMjlHDN0A05g e9H9CRKbIPPrMBO2gGK4 qB5fsRhvmhpaxENg dDsgdmVydGljYWwtYWxp C109BMFdgRslDcXbeYQw L3gfhxGFNY9vCrvbdKP+ WFTaNUO6cFyaSIrp LFPzkH7mFSNnD6g1UmIs LnR3DQbxO5PqppN8RGUg oGLaTYIdnBWYmW4skibd a5rlozwuAcBjRLKu XBo9EKm0WJLiwDofUpDy FSU0WrN4MEY2dSTtsH8k aYnsgfvkzW7zRxb+RklO OjwvdGQ+PHRkIHN0 uAejHRdbUXCacJ2aKTKg Z7x3DmXmAsV6QOzaH8Zu xoJ6NYYmmWRyYQIpjJJK kE8vntfvh5ykxhdv JhQuXMDpBJl2WYp3MNHh zGtlGlZwGYN0BaW5KRU9 iIAvhN3rqPhtkmedpX1l Oyc+TVJOOjwvdGQ+ TMGlVRJ9nHobSCztAXTc oR4fWDHyR3j0JqQgNsY1 IMkiJ5XnqwB6JDDdeSYo ICHhnWSIkJ2komzb c8brcucaTlJkOJMvLNx8 AEr0TYYjjMsqBdTuLQZ5 UpW3PTS8dVOdjO2wsUgr vrbliJ0qNcv+UGF5 SOJ1FU12QY27M5SoYsgt dGFibGU+PHRhYmxlIHdp ZHRoPScxMDAlJyBzdHls EE0pRz6lECWyVCBd bGxh (more content not included)... Normal [facility] Coding Summary.on 06-09-2020 Coding Summary. CD:[id number]:[id number] Gh0bWw+PGhlYWQ+PE1FV EVgT05ehHAmfA9IF3rQN V7RIPZMVWQKGF2FHZ3ik DT4BGvjU7OnkqGz IjzwwZMnEJ82KVm8EVW4 xUcxYZuklB5lvYIjB8f3 UhLkFN34kH00FPslHQRj PpQ4EzWnemjciNNg Y4cvVuGawKLuObx+PHRh YmxlIHdpZHRoPScxMDAl TlPbzXlyLW9dNe9sZBHy LWNvbGxhcHNlOiBj s1cnRRTeDHqvLK8fyNpo G9GpoQN4ZORzj0s0Hx56 dHI+UPJwEAP0wRbxZWib n406RoSba2zvBZW1 zJSkVMpkWQG9R19rk4D1 ETEmCKRcQWF4mWZ5wR5o jShnuytdU4XdqKTvIrC3 ISS8eABtqI9axSzy fthltV3wBxl+A38HWH8H JGGVPE6HRfw7H7XhMoea dHI+MP58MHNxEA27mOEj sXYdz8ztvLi1DgJb CXHwUVR4bOxeXIukp7De OIGxO31wxUDgt1K4XBQm dBckuIUgOsVxoLV7lG4g ZIbhkkvew5mrykuc Dqyvu7jrgy63hE02Y40u ITjlIDIfWLI3JVBaPCMn nIldnk1bjD6kQt6+IDxj j6zdz6ueuQm8QhKm DIMnysTdeHxiNLM8p0Mp Ly35Z1QstYgyy6PwZkd3 tr37eJEzw4X9yIE8JVnz YAXzaL6uNSomUtV5 BPCfEgHxvH73aNKmAWlw Ga0wyTsjsWewQC1dNZZz rtcbDMMctK3eDLPaqNLq nByhVN3hHYSzgslm l769UuPbEJN0FIXgcPMq X8NrlE4mLhNjLMWhBYDy D7AooPZfKHdeN413CGve UfY5QSAupsFfL2Un TUGliGojNdI5q8T0Yo5R u7OkvddyNXG7IJceVRU7 AxRmVuQcSjD9X0OlIgu7 LFDplOugMZ2sM0Uj TCWlywfvtjsxaDV5EDZq AWHwwG86bSUqWNrdLe7g r4N7k381WPElXHFkaZ54 Ou6fdJyxYURkeDVU jI5vxehvh7lrnmfgSvZu LDMoBWc1IDo7RGScmXtq DsUtHCA2TeP9XRX4pWEb xF5tdRjiwalzeW5h Oyc+L63nhV2jPVB0NHR7 bjqfYKUmshMtLC16AN74 D3XrItejuLWomOZ+PGRp sfXmjSyfWT3zCjTn w7ezz4QtJWclY5CsOSFy NOzdPzs6JHOfJTF6fVQ4 vO2eHQQeZEmig0H7eKV8 P6AuxvEjwg1am0rm YCOoJCyjT85zuRDsy5G5 MOZliDO5OQXtpPuoHeVv zR44Yqt+IEDssAtit1Oo Rmhvs6zpq8dqbGa1 IjMwJSIgdmFsaWduPSJ0 y4UvMo01M16lPDavKIIf DPBwMXLuRDJbcKjgya2n zG1kHw8+PGNvbCB3 vJW0tJ3tZHYwNfN1UNyc H907TmEqeMYsPmkrs1px k9gvoFi0RwYiNWQwrdHf gCvaAZS9b3HpWe55 P65cZEvzUNSwNAFnXVOf LYUfeOyavg4vsU2yVg3+ HZ7kg6jdsg07nA89nIQ+ MLDaAHF3yScfZZaa KCYlmW7cPGiaUzZ9VCEz QiNteB66nARdLHpdHh7c cZwjrZxgTF5lGBVxqcxn u714ObCmp4mtDFUn mXDcCGcoVMO7E15xz3R2 OKXyKUItMYS9kJB7gH8e bGlnbjogbGVmdDsgdmVy gPqoSLqhXHymY150 IHRvcDsnPlBhdGllbnQg BcGlEBd0Y7UkRal6SITs hRhbSA5fxEEkXXkaPq5f xZicrSooMV0hNKEv hgvre518JhGsw7rjAKKm sJEaECbuRWC6G09fz7L4 HENfWVTuQCY6cYD9nW6y bGlnbjogbGVmdDsg asIxvBmnZEscIBmeB715 IHRvcDsnPkJpcnRoIERh lNW3GU87UJ16cUJfn0M6 fPH4R9PcUPXwepsi vxwjuUV3LEUoJVAypS98 Kg5hnImgAm8dNKEpLOZ9 CFUnyJSwW3UyjA3nEfYx XLJlMLUsE8LnzYMn GUdzA896WSueLnG0UCNk neVpG1QbFNYcuLvtDbM3 g3H4Pm4ZP1Y8EX41PE43 sURyg3M0lMO1S2Ba PJHelkjjivsxmJW0WYGk FAJftR55Oi7ovNmoSa6s KVKmDHW0YTSivXGcW0Vn tI7zIjOqFBLcPDAj Q9EurCBcHWbpH201BEzw QzQ1KLHvkpGkS5HjTHOn pXocLcH3y2F2Og0QVIp7 HK27CA88eOGrv4P3 fSP5O4HiBJZuosvpoaxh sXJ5BLEzXXXtnX06No7u qBquPm4zJZNzYWE0YZCv cLSkI9EjwD6fRfPt ZHAwRWGaB4ExnVCnUYdt U085DZbtWtZ1TRXmotOa Z2GvRIJijVlrHvR3f6M8 Ts2SRYMiXB33RUR0 xAB1DK49CO61Q8KrAtpb dGFibGU+PHRhYmxlIHdp ZHRoPScxMDAlJyBzdHls VO9qXx9sYGWaWWOn xJumsUSwEgQpl0leQYQv XIbkTM3wbGimV0AezTD5 BKUep4n5Cz02H73lO3Gh dXA+YRCnkPO9bNY8 yX5rBcLdNuW1RPjjG759 MqJpnGGoEcivx6poq1os tXo7ZtT8SVKvyrSchGfl IHO4p5DoJi26N82c IHdpZHRoPSIxNSUiIHZh vAedwz0amT6jPk6+PGNv jLY1uXN5oR1sGlArJoW4 AZwaY394WiWxaYHf Onprt2fsk1hnyDt5VdSq CPIpzkCtsXhsRPR0l7Ds Re11W2BwlSxuh8OxEiu1 dp15xQPee9H5tZA0 R2XiFYUdynhirPLdbNxf UR2vIYSqhwbfYRMkiB5d PGWqH3u4HbVvVfM2HUkz V7KxwaE3MDJphRYx JQnfLHQ3J35pc5P0KFXc YHCrDWS3sAK5hC1cwIox bjogbGVmdDsgdmVydGlj YGelKGwvB483SNLm xFttHOGiiJ8iHKYvzSGb qXntRH8wSADlwqutZsLR RzmCKw1zVNVVLxXIZ7To TDwvdGQ+PHRkIHN0 tBjrFSotFLSihM0rOQCo W5g5IhTcTqI1KLuhY3Gk PYFxuhprMi02zA7jKyYf FhB5ZXurE3AhyoS3 XPCbgJYhBBxqKUC8L58j s4B3DZJgKLXpSGH2eZI0 vB9dnXmfbmkjyUZdiXwd dmVydGljYWwtYWxp C997OIXezYneXxY5VlVq RlZ5AWY6R8QcQoa7OPBz vNuzHA8amCRvQMbmMq6j wRepvUlpWO5hFIMm aeppPEAsgU0hIMThgAUj yYxeHS0kEUSiceygl907 BkEfBZH9NIApjSZjJ6Mx tK2lPoJjURCfWXRs F4PllWWfOHsyA653HBxi EdO6BMJkqhMlY9PaEVGc bTniBaT2d1Q8Wn0wATVX ZWFyczwvdGQ+PHRk XJZ8cKmiYEnoNQGcsB5a DRDzB7d5ZgDhLrK9TOxj A2KuRJCpxpsoWo97mK3f CoAsBtI3EYkrA7Nu ttE5RCNniHZmUTjxOEE6 O15mo7B3APErFWYmMFC6 yNA1qQ5gbGyhijcfzXIq dDsgdmVydGljYWwt IDkhJ283YUIdbTcaJsDx bWFsZTwvdGQ+PHRkIHN0 sUtlREtmKVEbuP4yKEVd N1r5XkMjLdZ5DNof I7IgOHBrvsgyJa13xO0b FqUaPjF9RXigM3UrscU7 JBKzxOFkSPktUID9U37e w6B3GTOnTAOmRLW5 vEX6qY3osNyfloeccVQx dDsgdmVydGljYWwtYWxp O416IBJeoNnzAh87dCNp mEmguaU8I3GoOize dHI+ZM09JXAiWZ18jQTd yLKvv2ocqDs2PbXoTDVs QTX9lOfeEFywm6OhEYZf T82niWJbf7W6BVYw fJpwmEFuDvQauXK6eC9a YWmlhkmgn5lcxpzeLsbd m3ukaj75iF05M47zCWro ZHRoPSIzMCUiIHZh sJbtgn2yeJ5yXq9+PGNv wLY4nNF1pH4aZdJnPuI9 QLvfV118ZxBssSAlAxrz d1nus6pvtXb1ClBq CBKwswNxzZfsJQH6o0Ii Sl99A30yBLclQECiMLWq KRPqVKJmaUiokp5zuE2t Ii8+CP0dq7ihtq23 tS71rXH+TZKmDHK5iWdg IThiHAUhyR9sWCbcMhO0 RSNjHuTvwP41sBNuDTbt Jz0vtRqyoUfwIF3h KBSbwatkr317XrSur2qn PPNqiEKzHZcdQCP6S69t f3R0BVBwSSVrKKF4iWB8 qV0biXlacajmnXDy dDsgdmVydGljYWwtYWxp E604RLWucGqcEvCjiIAw Q3wvbaZTCW8vXlyqaLW+ QZBfGIW5hOcjFTeh UIMqlT7wICSuP2r7BbBx ZbG2BUybR6NmcdP8APQi hIYsLPFggMGGuJ8nbanz l7ggxeyaJlTxORNj MFg1OJx4XRDbhLozYlWl HWF1FgW6GMF9pWMeuY0d gOffmvjukW7sWih+RklO OjwvdGQ+PHRkIHN0 qNvjHScnBGHgmU6aNXDx W8r0VeHzDcQ2LArlS5Zd hnB8DJAwbUKyYMSbySUO cF6gixhre3kunxkn KdKjSKTfKWa8ZMs9PFTg jVcpBoGzWXG0CpD4SLC2 cSUjqW1zcWywpgiijY3m Oyc+TVJOOjwvdGQ+ UDLhKQX5qZfjXTexPRIz tD2bQJDyB2a2KuUxYyQ4 SLjuO1MqtsS1MLPamHJd PHPcqPCHwM8rdghi u8kyvprzObAjZIJuBGg2 MLv3DAPvyNzoNmLaOCO5 SeZ5BDY0yFQmjA4ehZfh vbupjB8wWzv+UGF5 YBO5DC11ZJ54Z3FwRocn dGFibGU+PHRhYmxlIHdp ZHRoPScxMDAlJyBzdHls UE4bYj2lHMYhWXTu bGxh (more content not included)... Normal [facility] Capillary Glucose POCon 05-19 Glucose [Mass/Vol] 82 mg/dL Normal 55-99 [facility] Comment on above: Performed By: #### 2 [id number] #### [facility] [address] [place] [address] Consent for Treatmenton 05-19 Consent for Treatment [id number] #1.00CD:127 Normal [facility] Glu 1 Hron 06-03-2020 Glucose [Mass/Vol] 139 mg/dL Normal 55-180 [facility] Comment on above: Result Comment: POSI TIVE SCREEN = 1 HR > 140 mg/dL Performed By: #### 2 [id number] #### [facility] [address] [place] [address] Glu 2 Hron 06-03-2020 Glucose [Mass/Vol] 123 mg/dL Normal 55-155 [facility] Comment on above: Result Comment: DIAB ETES FASTING >126 mg/dL or 2 HOUR >200 mg/dL Performed By: #### 2 999084, [id number], [id number] #### [facility] [address] [place] [address] Glu 3 Hron 06-03-2020 Glucose [Mass/Vol] 101 mg/dL Normal 55-140 [facility] Comment on above: Result Comment: GEST ATIONAL DIABETES 2 of the following: FASTING >95 mg/dL 1 HOUR >180 mg/dL 2 HOUR >155 mg/dL 3 HOUR >140 mg/dL Performed By: #### 2 [id number] ####[facility] [address] [place] [address] Glu Fastingon 06-03-2020 Glucose [Mass/Vol] 83 mg/dL Normal 55-99 [facility] Comment on above: Performed By: #### 2 812451, 2244092, [id number] #### [facility] [address] [place] [address] Rubella Abon 06-03-2020 Rubella Ab Positive Normal Positive [facility] Comment on above: Performed By: #### 2 049368, 5713474, [id number] #### [facility] [address] [place] [address] ABO/Rhon 06-02-2020 ABO/Rh Positive Invalid Interpretation Code [facility] Comment on above: Performed By: #### 1 [id number], [id number] ####[facility] [address] [place] [address] ABSCon 06-02-2020 ABSC Gel Interp Negative Normal [facility] Comment on above: Performed By: #### 1 0199433, 6992871 ####[facility] [address] [place] [address] CBC w/Indiceson 06-02-2020 Erythrocyte distribution width (RBC) [Ratio] 12.9 % Normal 10.9-14.2 [facility] Comment on above: Performed By: #### 2 143809, 2932128, [id number] #### [facility] [address] [place] [address] Hematocrit (Bld) [Volume fraction] 33.5 % Low 34.0-46.0 [facility] Comment on above: Performed By: #### 2 867075, 0834732, [id number] #### [facility] [address] [place] [address] Hemoglobin (Bld) [Mass/Vol] 11.2 g/dL Low 12.0-16.0 [facility] Comment on above: Performed By: #### 2 352878, 1897035, [id number] #### [facility] [address] [place] [address] MCH (RBC) [Entitic mass] 29.0 pg Normal 27.0-34.0 [facility] Comment on above: Performed By: #### 2 669737, 0782721, [id number] #### [facility] [address] [place] [address] MCHC (RBC) [Mass/Vol] 33.5 g/dL Normal 31.4-36.0 [facility] Comment on above: Performed By: #### 2 699764, 6156635, [id number] #### [facility] [address] [place] [address] MCV (RBC) [Entitic vol] 86.6 fL Normal 80.0-100.[address] [facility] Comment on above: Performed By: #### 2 601940, 5019540, [id number] #### [facility] [address] [place] [address] Platelet mean volume (Bld) [Entitic vol] 7.6 fL Normal 6.4-10.8 [facility] Comment on above: Performed By: #### 2 372899, 5961705, [id number] #### [facility] [address] [place] [address] Platelets (Bld) [#/Vol] 284.0 E9/L Normal 150.0-500.0 [facility] Comment on above: Performed By: #### 2 170134, 5664082, [id number] #### [facility] [address] [place] [address] RBC (Bld) [#/Vol] 3.9 E12/L Low 4.3-5.9 [facility] Comment on above: Performed By: #### 2 994862, 3751711, [id number] #### [facility] [address] [place] [address] WBC corrected for nucl RBC Auto (Bld) [#/Vol] 9.4 E9/L Normal 4.0-11.0 [facility] Comment on above: Performed By: #### 2 983661, 8120940, [id number] #### [facility] [address] [place] [address] Consent for Treatmenton 05-19 Consent for Treatment [id number] #1.00CD:127 Normal [facility] Gest Scr Glu 1 Hron 06-03-19 21 Glucose [Mass/Vol] 150 mg/dL High 55-140 [facility] Comment on above: Result Comment: Posi tive Screen =1 HR > 140mg/dL Performed By: #### 2 437569, 5105659, [id number] #### [facility] [address] [place], [place] [address] Ambulatory Clinical Summaryo n 2020 Ambulatory Clinical Summary {[id number]- d8-26-70}CD:[id number] Jer[facility] Obstetrics Office/Clinic Not jasmine 2020 Obstetrics Office/Clinic Note Chief Complaint OB 29w 5d, baby moving, patient doing 28 week labs done this Obstetric History History (1,0,0,2) # 1 Baby 1 Outcome Date: 2008 Outcome: Live Outcome or Result: Vaginal Gender: Female Gest Age: 41 weeks Wt: 3232 g Hospital: [facility] Labor: -- Child's Name: -- Baby's [...] trimester) Ordered: Office Visit Level 4 Est 36843 [facility] Follow Up Follow Up 2. Obesity complicating , third trimester (O99.213: Obesity complicating , third trimester) Ordered: Office Visit Level 4 Est 67285 [facility] Follow Up Follow Up 3. Depression during (O99.340: Other mental disorders complicating , unspecified trimester) Ordered: Office Visit Level 4 Est 61297 [facility] Follow Up Follow Up 4. 29 weeks gestation of (Z3A.29: 29 weeks gestation of ) Ordered: Office Visit Level 4 Est 09198 [facility] Follow Up Follow Up Follow-up With When Contact Information Funmilayo ESCOBEDO MD In [address] [place] [address]- Additional Instructions: Problem List/Past Medical [...] Protein Urine Dipstick: Negative (05/31/20 14:25:00) Normal [facility] Comment on above: Result Comment: Elec [...] including vitamins, herbs, eye drops, creams, and vtsj-esa-wxdeqqb medicines. ? Any blood disorders you have. [...] This inform (more content not included)... Normal [facility] RAD - Ultrasound Reporton RAD - Ultrasound Report [id number] [id number]# 1.00CD:127 [facility] Coding Summary.on 05-17-2020 Coding Summary. CODING DATE: 05/16/2020 [facility] STATUS: Home (Routine DC) PAYOR: Diamond ADMIT [...] Pitt CphT Date Saved: 05/16/2020 11:17 pm [facility] C Urineon 05-13-2020 Bacteria identified Cx Nom (U) Microbiology PROCEDURE: Urine Culture [R1] SOURCE: U Random BODY SITE: COLLECTED DATE/TIME: 05/11/2020 10:37 EDT RECEIVED DATE/TIME: 05/11/2020 19:08 EDT START DATE/TIME: 05/11/2020 19:08 EDT FREE TEXT SOURCE: Caroline HILARIO, Caroline FINAL REPORTS Final Report [] Verified Date/Time: 05/13/2020 08:25 EDT 4,000 cfu/ml Mixed skin contaminants Performing Locations R1: This test was performed at: [facility], [address] [place] [address], [address]- , [place], Normal [facility] Comment on above: Performed By: #### 2 934659 ####[facility] [address] [place] [address] Ambulatory Clinical Summaryo n 05-11-2020 Ambulatory Clinical Summary {[id number]-[id number]}CD:[id number] Normal [facility] Obstetrics Office/Clinic Not jasmine 05-11-2020 Obstetrics [...] Age: 41 weeks Wt: 3232 g Hospital: [facility] Labor: -- Child's Name: -- Baby's [...] far. Ordered: Office Visit Level 3 Est 63644 [place] 2. Depression during (O99.340: Other mental disorders complicating , unspecified trimester) Doing meditation. Ordered: Office Visit Level 3 Est 93150 [place] 3. Supervision of high risk in [...] 1 Hour Office Visit Level 3 Est 19543 [place] Urine Culture 4. 26 weeks gestation of (Z3A.26: 26 weeks gestation of ) Ordered: Office Visit Level 3 Est 53459 [place] Follow-up With When Contact Information [facility] In [address] [place] [address]- Additional Instructions: Problem List/Past Medical History Ongoing [...] Smokeless Toba (more content not included)... Normal [facility] Comment on above: Result Comment: Elec [...] Petroleum jelly. ? 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 ? 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 Rectal thermometer. ? [...] ? Consumer Product Safety Commission: www.cpsc.gov ? [place] [employer]: www.healthychildren. org ? Safe [...] 01/17/2009 Document Revised: 01/17/2018 Document Reviewed: 12/25/2017 [employer] Patient Education ? 2019 [employer]. [facility] Coding Summary.on 04-29-2020 Coding Summary. CODING DATE: 04/28/2020 FINAL [facility] STATUS: Home (Routine DC) PAYOR: Diamond ADMIT [...] [facility] CphT Date Saved: 04/28/2020 10:33 pm [facility] Coding Summary.on 04-27-2020 Coding Summary. CODING DATE: 04/27/2020 FINAL [facility] STATUS: Home (Routine DC) PAYOR: Diamond ADMIT [...] [facility]phT Date Saved: 04/27/2020 10:53 am [facility] Nursing Assessmenton 021 Nursing Assessment [id number] #1.00CD:127 [facility] C Urineon 04-23-2020 Bacteria identified Cx [...] Locations R1: This test was performed at: [facility], [address] [place] [address], [address]- , [place], [facility] Comment on above: Performed By: #### 2 240526, 2573857, [id number] #### [facility] [address] [place] [address] Consent for Treatmenton Consent for Treatment [id number] 30 [id number] #1.00CD:127 [facility] Consent for Treatment [id number] #1.00CD:127 [facility] Discharge Instructionson Discharge Instructions [id number] [id number] #1.00CD:127 [facility] Inpatient Clinical Summaryon 04-21-2020 Inpatient Clinical Summary [address] [address] Clinical Summary Person Information Name: MYA MYLES Ifeoma/[facility] Age: 29 Years : 1990 Sex: Female PCP: Chao Blackwell III, DO Marital Status: Single Race: White Ethnicity: Non- or Language: South African Visit Id: Visit Reason: Speciality: Acuity: Enc Type: OB Triage Med Service: Obstetrics Arrival: 04/21/2020 15:56:05 Discharge: 04/21/2020 17:47:48 Dispo Type: Home (Routine DC) Address: [address] [place] [address] [address] [place] [id number] Provider Notes: Diagnosis: Problems Active Depression during [...] Follow up: With: Address: When: Funmilayo ESCOBEDO [facility] [place] [id number] Business (1) 05/12/2020 9:00 AM Comments: Call for any problems. Type Location Start [facility] 05/12/2020 9:00 AM 05/12/2020 9:15 AM Confirmed Patient Education Information: Normal [facility] Inpatient Patient Summaryon 04-21-2020 Inpatient Patient Summary [place] [id number] Patient Discharge Instructions PERSON INFORMATION Name: MYA [...] With: Address: When: Funmilayo ESCOBEDO [address] [place] [phone] Business (1) 05/12/2020 9:00 AM Comments: Call for any problems. In the event that this physician does not participate in your insurance network, please consult with your insurance company to find a nearby participating provider. Type Location Start [facility] [place] 05/12/2020 9:00 AM 05/12/2020 9:15 AM Confirmed Comment: IJUSTINO VANESSA L, [...] Last Dose: Next Dose: Pharmacy Information: [facility] PATIENT EDUCATION INFORMATION Instructions: Medication Leaflets: You may receive a survey from [facility] [employer] asking you to rate your care experience. Your feedback is important and will help us understand what we do well and how we can improve the quality of care we provide to you, your loved ones and our community. It?s an honor to serve you. Thank you for choosing [facility] Normal [facility] Insurance Correspondence Off iceon 04-21-2020 Insurance Correspondence Office [id number] #1.00CD:127 Normal [facility] RAD - Ultrasound Reporton RAD - Ultrasound Report [id number] 0210 [id number] #1.00CD:127 Normal [facility] UA With Cult Reflexon 2020 Bacteria LM Ql (Urine sed) 1+ /HPF Abnormal Trace [facility] Comment on above: Performed By: #### 2 196859, 6416900, [id number] #### [facility] [address] [place] [address] Bilirubin Ql (U) Negative Normal Negative [facility] Comment on above: Performed By: #### 2 612770, 1933598, [id number] #### [facility] [address] [place] [address] Clarity (U) CLEAR Normal Clear [facility] Comment on above: Performed By: #### 2 370388, 7854274, [id number] #### [facility] [address] [place] [address] Color (U) YELLOW Normal Yellow [facility] Comment on above: Performed By: #### 2 107591, 0560003, [id number] #### [facility] [address] [place] [address] Epithelial cells.squamous LM.HPF (Urine sed) [#/Area] 3-4 Normal 0-2 [facility] Comment on above: Performed By: #### 2 698653, 7914529, [id number] #### [facility] [address] [place] [address] Glucose Test strip (U) [Mass/Vol] Negative Normal Negative [facility] Comment on above: Performed By: #### 2 239450, 4469630, [id number] #### [facility] [address] [place] [address] Hemoglobin Ql (U) Negative Normal Negative [facility] Comment on above: Performed By: #### 2 302393, 0744899, [id number] #### [facility] [address] [place] [address] Ketones (U) [Mass/Vol] 1+ Abnormal Negative [facility] Comment on above: Performed By: #### 2 [id number], [id number], [id number] #### [facility] [address] [place] [address] [facility]. RBC (Bld) [Mass ratio] 0-3 Normal 0-3 [facility] Comment on above: Performed By: #### 2 [id number], [id number], [id number] #### [facility] [address] [place] [address] Nitrite Ql (U) Negative Normal Negative [facility] Comment on above: Performed By: #### 2 100356, [id number], [id number] #### [facility] [address] [place] [address] pH (U) 7.0 [pH] Invalid Interpretation Code 5.0-9.0 [facility] Comment on above: Performed By: #### 2 [id number], [id number], [id number] #### [facility] [address] [place] [address] Protein (U) [Mass/Vol] Negative Normal Negative [facility] Comment on above: Performed By: #### 2 186392, [id number], [id number] #### [facility] [address] [place] [address] Specific gravity (U) [Rel density] 1.010 Invalid Interpretation Code 1.005-1.030 [facility] Comment on above: Performed By: #### 2 768677, [id number], [id number] #### [facility] [address] [place], [place] [id number] UA Spec Desc Clean Catch Normal [facility] Comment on above: Performed By: #### 2 539071, [id number], [id number] #### [facility] [address] [place] [address] Urobilinogen Qn (U) 0.2 {Henny'U}/dL Normal 0.0-1.0 [facility] Comment on above: Performed By: #### 2 584853, [id number], [id number] #### [facility] [address] [place] [address] WBC Auto Ql (U) 1+ Abnormal Negative [facility] Comment on above: Performed By: #### 2 499161, [id number], [id number] #### [facility] [address] [place] [address] WBC LM.HPF (Urine sed) [#/Area] 0-5 Normal 0-5 [facility] Comment on above: Performed By: #### 2 759618, [id number], [id number] #### [facility] [address] [place] [address] [place] [address] C Urineon 04-18-2020 Bacteria identified Cx Nom [...] Locations R1: This test was performed at: [facility], [address] [place] [address], [address]- , , Normal [facility] Comment on above: Performed By: #### 2 [id number] ####[facility] [address] [place] [address] Obstetrics Office/Clinic Not jasmine 04-18-2020 Obstetrics Office/Clinic Note Chief Complaint OB 21w 5d, baby moving Obstetric History History (1,0,0,2) # 1 Baby 1 Outcome Date: 2008 Outcome: Live Outcome or Result: Vaginal Gender: Female Gest Age: 41 weeks Wt: 3232 g Hospital: [facility] Labor: -- Child's Name: -- Baby's [...] trimester) Ordered: Office Visit Level 4 Est 64838 NC 2. Obesity complicating , second trimester (O99.212: Obesity complicating , second trimester) Ordered: Office Visit Level 4 Est 35306 NC 3. 21 weeks gestation of (Z3A.21: 21 weeks gestation of ) Ordered: Office Visit Level 4 Est 38212 NC 4. Depression during (O99.340: Other mental disorders complicating , unspecified trimester) Ordered: Office Visit Level 4 Est 81592 NC Follow-up With When Contact Information Funmilayo ESCOBEDO MD In [address] [place] [address]- Additional Instructions: Problem List/Past Medical History Ongoing [...] pts pharmacy. Spoke with pt. 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 Will repeat urine cx at next visit. Kendal Escobedo MD [facility] Comment on above: Result Comment: [...] Locations R1: [facility] [address] [place] [address], [address] , , [facility] Comment on above: Performed By: #### 2 [id number] ####[facility] [address] [place] [address] HIV Screen 4th Generation wR fxon 04-16-2020 HIV 1+2 Ab+HIV1 p24 Ag IA Ql Non-Reactive Invalid Interpretation Code Non Reactive [facility] Comment on above: Result Comment: Perf ormed at: [address] [id number] PhD Lanette Dunn Performed By: #### 2 [id number], [id number], [id number] #### [facility] [address] [place] [address] Hep Bs Agon 04-16-2020 HBV surface Ag IA Ql Negative Invalid Interpretation Code Negative [facility] Comment on above: Result Comment: Perf ormed at: [address] [id number] [id number] PhD Lanette Dunn Performed By: #### 2 [id number], [id number], [id number] #### [facility] [address] [place] [address] Coding Summary.on 04-15-2020 Coding Summary. CODING DATE: 04/15/2020 FINAL [facility] DSC STATUS: Home (Routine DC) PAYOR: Diamond [...] CphT Date Saved: 04/15/2020 09:18 am Normal [facility] RPRon 04-15-2020 Reagin Ab RPR Ql (S) Non-Reactive Normal Non-Reactive [facility] Comment on above: Performed By: #### 9 [id number] ####[facility] [address] [place] [address] ABO/Rhon 04-14-2020 ABO/Rh Positive Invalid Interpretation Code [facility] Comment on above: Performed By: #### 2 [id number], [id number] #### [facility] [address] [place] [address] ABSCon 04-14-2020 ABSC Gel Interp Negative Normal [facility] Comment on above: Performed By: #### 2 717310, [id number] #### [facility] [address] [place] [address] Ambulatory Clinical Summaryo n 04-14-2020 Ambulatory Clinical Summary {[id number] [id number]}CD:[id number] Normal [facility] Auto Diffon 04-14-2020 Basophils/100 WBC (Bld) 0.3 % Normal 0.0-2.[address] [facility] Comment on above: Order Comment: Order Added by Discern Expert. Performed By: #### 2 840723, [id number], [id number] #### [facility] [address] [place] [address] Basophils/Leukocytes Auto (Bld) [Pure # fraction] 0.0 E9/L Normal 0.0-0.2 [facility] Comment on above: Order Comment: Order Added by Discern Expert. Performed By: #### 2 586765, 8907212, [id number] #### [facility] [address] [place] [address]683 Eosinophils/100 WBC (Bld) 0.3 % Normal 0.0-8.0 [facility] Comment on above: Order Comment: Order Added by Discern Expert. Performed By: #### 2 538181, [id number], [id number] #### [facility] [address] [place] [address]28 Eosinophils/Leukocytes Auto (Bld) [Pure # fraction] 0.0 E9/L Normal 0.0-0.5 [facility] Comment on above: Order Comment: Order Added by Discern Expert. Performed By: #### 2 165623, 5759123, [id number] #### [facility] [address] [place] [address] 86629 Lymphocytes/100 WBC (Bld) 19.1 % Normal 14.0-50.0 [facility] Comment on above: Order Comment: Order Added by Discern Expert. Performed By: #### 2 646187, 2341876, [id number] #### [facility] [address] [place] [address]9490 Lymphocytes/Leukocytes Auto (Bld) [Pure # fraction] 1.4 E9/L Normal 1.0-4.0 [facility] Comment on above: Order Comment: Order Added by Discern Expert. Performed By: #### 2 667535, 7138984, [id number] #### [facility] [address] [place] [address]602 Monocytes/100 WBC (Bld) 6.4 % Normal 4.0-14.0 [facility] Comment on above: Order Comment: Order Added by Discern Expert. Performed By: #### 2 838915, [id number], [id number] #### [facility] [address] [place] [address] Monocytes/Leukocytes Auto (Bld) [Pure # fraction] 0.5 E9/L Normal 0.2-1.0 [facility] Comment on above: Order Comment: Order Added by Discern Expert. Performed By: #### 2 667535, 3571432, [id number] #### [facility] [address] [place] [address] 31240 Neutrophils/100 WBC (Bld) 73.9 % Normal 36.0-75.0 [facility] Comment on above: Order Comment: Order Added by Discern Expert. Performed By: #### 2 989098, 6262283, [id number] #### [facility] [address] [place] [address] 9[address]30 Neutrophils/Leukocytes Auto (Bld) [Pure # fraction] 5.3 E9/L Normal 2.0-7.5 [facility] Comment on above: Order Comment: Order Added by Discern Expert. Performed By: #### 2 974219, 3391807, [id number] #### [facility] [address] [place] [address] BhCG Quanton 04-14-2020 [place] [address] m[IU]/mL High 1-[address] [facility] Comment on above: Result Comment: GEST ATIONAL AGE HCG RANGE (mIU/mL) NON- <1-3 0.2-1 WEEKS 5-50 1-2 WEEKS 50-500 2-3 WEEKS 100-5,000 3-4 WEEKS 500-10,000 4-5 WEEKS 1,000-50,000 5-6 WEEKS 10,000-100,000 6-8 WEEKS 15,000-200,000 8-12 WEEKS 10,000-100,000 Performed By: #### 2 841050 #### [facility] [address] [place] [address] CBC w/ Auto Diffon Erythrocyte distribution width (RBC) [Ratio] 13.0 % Normal 10.9-14.2 [facility] Comment on above: Performed By: #### 2 779036, 8465624, [id number] #### [facility] [address] [place] [address] Hematocrit (Bld) [Volume fraction] 34.6 % Normal 34.0-46.0 [facility] Comment on above: Performed By: #### 2 784456, 6189182, [id number] #### [facility] [address] [place] [address]45 Hemoglobin (Bld) [Mass/Vol] 11.6 g/dL Low 12.0-16.0 [facility] Comment on above: Performed By: #### 2 873975, 0802836, [id number] #### [facility] [address] [place] [address] MCH (RBC) [Entitic mass] 29.8 pg Normal 27.0-34.0 [facility] Comment on above: Performed By: #### 2 038903, 6255144, [id number] #### [facility] [address] [place] [address] MCHC (RBC) [Mass/Vol] 33.4 g/dL Normal 31.4-36.0 [facility] Comment on above: Performed By: #### 2 277649, 8542975, [id number] #### [facility] [address] [place] [address] MCV (RBC) [Entitic vol] 89.2 fL Normal 80.0-100.[address] [facility] Comment on above: Performed By: #### 2 544886, 2114079, [id number] #### [facility] [address] [place] [address] 26181 Platelet mean volume (Bld) [Entitic vol] 7.8 fL Normal 6.4-10.8 [facility] Comment on above: Performed By: #### 2 491858, 1524926, [id number] #### [facility] [address] [place] [address]307 Platelets (Bld) [#/Vol] 326.0 E9/L Normal 150.0-500.0 [facility] Comment on above: Performed By: #### 2 217702, 5316070, [id number] #### [facility] [address] [place] [address] 72624 RBC (Bld) [#/Vol] 3.9 E12/L Low 4.3-5.9 [facility] Comment on above: Performed By: #### 2 260415, 8167916, [id number] #### [facility] [address] [place] [address]8419 WBC corrected for nucl RBC Auto (Bld) [#/Vol] 7.2 E9/L Normal 4.0-11.0 [facility] Comment on above: Performed By: #### 2 997370, 4859462, [id number] #### [facility] [address] [place] [address] Consent for Treatmenton 03-22 Consent for Treatment [id number] #1.00CD:127 Normal [facility] HvaL0rti 04-14-2020 HbA1c (Bld) [Mass fraction] 4.8 % Normal <=5.9 [facility] Comment on above: Performed By: #### 2 061546, 4600303, [id number] #### [facility] [address] [place] [address] Patient Educationon 04-14-19 21 Patient Education How [...] Document Reviewed: 07/23/2008 ExitCare? Patient Information ?2013 [employer]. Obstetrics and Gynecology Eating Plan for Women [...] your (t (more content not included)... Normal [facility] U Drug Screenon 04-14-2020 Amphetamines Screen method >1000 ng/mL Ql (U) Negative Normal Negative [facility] Comment on above: Result Comment: Nega tive Cutoff: <1000 ng/mL Performed By: #### 2 128799 #### [facility] [address] [place] [address] Barbiturates Screen Ql (U) Negative Normal Negative [facility] Comment on above: Result Comment: Nega tive Cutoff: <200 ng/mL Performed By: #### 2 538200 #### [facility] [address] [place] [address] Benzodiazepines Ql (U) Negative Normal Negative [facility] Comment on above: Result Comment: Nega tive Cutoff: <200 ng/mL Performed By: #### 2 417384 #### [facility] [address] [place] [address] Cocaine Ql (U) Negative Normal Negative [facility] Comment on above: Result Comment: Nega tive Cutoff: <300 ng/mL Performed By: #### 2 274736 #### [facility] [address] [place] [address] Opiates Screen Ql (U) Negative Normal Negative [facility] Comment on above: Result Comment: Nega tive Cutoff: <300 ng/mL Performed By: #### 2 989822 #### [facility] [address] [place] [address] Phencyclidine Screen method >25 ng/mL Ql (U) Negative Normal Negative [facility] Comment on above: Result Comment: Nega tive Cutoff: <25 ng/mL These drug screen results are to be used for medical (i.e., treatment) purposes only. Unconfirmed drug screening results must not be used for non-medical purposes (e.g., employment testing, legal testing). Performed By: #### 2 858481 #### [facility] [address] [place] [address] Tetrahydrocannabinol Screen method >50 ng/mL Ql (U) Negative Normal Negative [facility] Comment on above: Result Comment: Nega tive Cutoff: <50 ng/mL Performed By: #### 2 682512 #### [facility] [address] [place] [address] RAD - Ultrasound Reporton RAD - Ultrasound Report [id number] #1.00CD:127 Normal [facility] Reportson 03-14-2020 Lab Reports [id number] #1.00CD:127 Normal [facility] Ambulatory Clinical Summaryo n 02-29-2020 Ambulatory Clinical Summary {[id number] [id number]-98}CD:975792 Normal [facility] Ambulatory Clinical Summary {[id number] 3a-73-bd}CD:447407 Normal [facility] Obstetrics Office/Clinic Not jasmine 02-29-2020 Obstetrics Office/Clinic Note Chief Complaint OB 15w 2d, feeling flutters, occ. [place] Obstetric History History (1,0,0,2) # 1 Baby 1 Outcome Date: 2008 Outcome: Live Outcome or Result: Vaginal Gender: Female Gest Age: 41 weeks Wt: 3232 g [facility]: [facility] Labor: -- Child's Name: -- Baby's [...] trimester) Ordered: Office Visit Level 4 Est 84232 TH 2. Obesity complicating , second trimester (O99.212: Obesity complicating , second trimester) Ordered: Office Visit Level 4 Est 09611 TH 3. 15 weeks gestation of (Z3A.15: 15 weeks gestation of ) Ordered: Office Visit Level 4 Est 87340 TH Follow-up With When Contact Information LAURA MACEDO, Funmilayo Ryan In [address] [place] [address]- Additional Instructions: Problem List/Past Medical [...] Protein Urine Dipstick: Negative (02/29/20 15:46:00) Normal [facility] Comment on above: Result Comment: Elec [...] Document Reviewed: 05/19/2009 ExitCare? Patient Information ?2013 [employer]. Family Medicine How a Baby Grows During [...] flex an (more content not included)... Normal [facility] Physician Referralon 021 Physician Referral [id number] #1.00CD:127 Normal [facility] RAD - Ultrasound Reporton RAD - Ultrasound Report [id number] [id number] #1.00CD:127 Normal [facility] Physician Referralon 020 Physician Referral [id number] #1.00CD:127 Normal [facility] Physician Referralon 020 Physician Referral [id number] #1.00CD:127 Normal [facility] Chlamydia/Gonococcus, NAAon 01-30-2020 C. trachomatis rRNA KAIDEN+probe Ql (Unsp spec) Negative Invalid Interpretation Code Negative [facility] Comment on above: Performed By: #### 2 678528, 7222209, [id number] #### [facility] [address] [place] [address] N. gonorrhoeae rRNA KAIDEN+probe Ql (Unsp spec) Negative Invalid Interpretation Code Negative [facility] Comment on above: Result Comment: Perf ormed at: =G [facility] [address] [id number] MD Kehinde Rivero Performed By: #### 2 091751, [id number], [id number] #### [facility] [address] [place] [address] Coding Summary.on 01-29-2020 Coding Summary. CODING DATE: 01/29/2020 FINAL [facility] STATUS: Home (Routine DC) PAYOR: Self Pay [...] Garcia Date Saved: 01/29/2020 01:52 pm Normal [facility] Ambulatory Clinical Summaryo n 01-27-2020 Ambulatory Clinical Summary {[id number]}CD:[id number] Normal [facility] Obstetrics Office/Clinic Not jasmine 01-27-2020 Obstetrics Office/Clinic Note Chief Complaint 1st OB 10 Weeks 4 days. Some Nausea. Obstetric History History (1,0,0,2) # 1 Baby 1 Outcome Date: 2008 Outcome: Live Outcome or Result: Vaginal Gender: Female Gest Age: 41 weeks Wt: 3232 g Hospital: [facility] Labor: -- Child's Name: -- Baby's Father: -- # 2 Baby 1 Outcome Date: 05/26/2013 Outcome: Live Outcome or Result: Vaginal Gender: Male Gest Age: 39 weeks 3 days Wt: 3390 g Hospital: [facility] Labor: 5 hr 55 min Child's [...] patient here for first OB visit. LMP 9--20. Sure of dates, not on contraception at [...] smoking, alcohol, or drug use. Last pap 04-02-17, NILM. 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 Review of Systems Constitutional: No fever, No [...] during or after office hours. Referral to [facility] and will defer to them for genetic testin (more content not included)... Normal [facility] Comment on above: Result Comment: Elec [...] Document Reviewed: 07/23/2008 ExitCare? Patient Information ?2013 [employer]. [facility] Patient Letter FTon 2019 Patient [place] [facility] [place] 27, 2020 MYA MYLES [address] [place] [address] MYA MYLES 1990 Our patient Mya Myles is with a single IUP. EDC is 08/20/[address] [address] [facility] Coding Summary.on 01-22-2020 Coding Summary. CODING DATE: 01/22/2020 FINAL [facility] DSCH STATUS: Home (Routine DC) PAYOR: Self [...] Gloria Fleming Date Saved: 01/22/2020 08:46 am [facility] US 1st Trimesteron 01-11-2020 1st Trimester [...] corresponding gestational age +/- 1 week are: [place] Rump Length: 1.8 cm Composite Ultrasound Age: [...] Transabdominal Ultrasound Performed Size = Dates Normal [facility] Ambulatory Clinical Summaryo n 01-07-2020 Ambulatory Clinical Summary {[id number] [id number]}CD:[id number] Normal [facility] Ambulatory Clinical Summaryo n 01-06-2020 Ambulatory Clinical Summary {[id number] [id number]}CD:051484 [facility]2020 HCG.beta subunit Qn 111453 m[IU]/mL High 1-3 [facility] Comment on above: Result Comment: GEST ATIONAL AGE HCG RANGE (mIU/mL) NON- <1-3 0.2-1 WEEKS 5-50 1-2 WEEKS 50-500 2-3 WEEKS 100-5,000 3-4 WEEKS 500-10,000 4-5 WEEKS 1,000-50,000 5-6 WEEKS 10,000-100,000 6-8 WEEKS 15,000-200,000 8-12 WEEKS 10,000-100,000 Performed By: #### 2 000549, [id number], [id number] #### [facility] [address] [place] [address] Consent for Treatmenton 12-19 Consent for Treatment [id number] #1.00CD:127 Normal [facility] Gynecology Office/Clinic Not jasmine 01-06-2020 Gynecology Office/Clinic Note Chief Complaint Confirmation of , Nausea Some Vomitting. Has had Dark pink Spotting, First OB paper work added . Obstetric History History (1,0,0,2) # 1 Baby 1 Outcome Date: 2008 Outcome: Live Outcome or Result: Vaginal Gender: Female Gest Age: 41 weeks Wt: 3232 g Hospital: [facility] Labor: -- Child's Name: -- Baby's [...] order subsequent US. Plan to refer to [facility] d/t hx child with congenital lymphedema. [...] test, result positive) Ordered: HCG, Urine POC 25843 Follow-up No qualifying data available Problem List/Past [...] Results HCG, Urine: Positive (01/06/20 09:31:00) Normal [facility] Comment on above: Result Comment: Elec tronically Signed By: Caroline HILARIO\.rosey\Date and Time Signed: 01/06/20 10:17 EST Progesteroneon 01-06-2020 Progesterone [Mass/Vol] 18.00 ng/mL Invalid Interpretation Code [facility] Comment on above: Result Comment: REFE RENCE RANGE Males 0.14-2.06 ng/mL Non- Females Follicular 0.10-0.60 ng/mL Luteal 3.00-17.5 ng/mL Midluteal 3.30-18.6 ng/mL Post-Menopausal 0.10-0.40 ng/mL First Trimester 8.30-66.5 ng/mL Second Trimester 18.9-66.1 ng/mL Third Trimester 35.8-312.4 ng/mL Performed By: #### 2 846836, 9979904, [id number] #### [facility] [address] [place] [address] Coding Summary.on 12-14-2019 Coding Summary. CODING DATE: 12/14/2019 [facility] STATUS: Home (Routine DC) PAYOR: [...] Garcia Date Saved: 12/14/2019 02:13 pm Normal [facility] ED Note-Physicianon 10-26-20 20 ED Note-Physician Basic Information Time Seen: Kate MESA, Gege Ankush 12/13/2019 19:14 Chief Complaint pt to ED with c/o consuming plastic from a burger at [employer] today. pt is . denies complaints History of Present Illness This patient presents emergency department after ingesting some type of plastic while eating a sandwich at [employer]. She states she was at [employer] restaurant. She bit down on something hard [...] Chao Blackwell In 3 days 12/16/[address] [place], [place] [id number] [facility] (1) Additional Instructions: Patient Education Swallowed Foreign Body, Adult, Jojy-hf-Nari Problem List/Past Medical History Ongoing Ovarian cyst Historical Medications Inpatient No active inpatient medications Home Bactroban 2% Cream, 1 ced, Topical, TID Randolph 325 mg-5 mg oral tablet, 1 tab(s), Oral, q4hr, PRN Allergies No Known Allergies Social History Alcohol - Denies Alcohol Use, 11/21/2009 Substance Abuse - Denies Substance Abuse, 11/21/2009 Tobacco - Denies Tobacco Use, 11/21/2009 Family History Diabetes mellitus type 2: Mother and Father. Hypertension: Mother and Father. Lab Results No qualifying data available. Diagnostic Results No qualifying data available. Normal [facility] Comment on above: Result Comment: Elec tronically Signed By: Gege Love PA-C\.br\Date and Time Signed: 12/13/19 19:34 EDT\.br\Electronically Co-Signed By: Ed Jerome MD\.br\Date and Time Co-Signed: 12/14/19 05:14 EDT Consent for Treatmenton 11-19 Consent for Treatment [id number] 01 [id number] #1.00CD:127 Normal [facility] Discharge Instructionson Discharge Instructions [id number]#1.00CD:127 Normal [facility] ED Clinical Summaryon 2019 ED Clinical Summary [place] [id number] ED Clinical Summary Person Information Name: MYA MYLES [facility]feoma/[facility] Age: 29 Years : 1990 Sex: Female Language: South African PCP: Chao Blackwell III, DO Marital Status: Single MRN: Visit Id: Visit Reason: Medical screening exam; CONSUMED PLASTIC IN A BURGER FROM [employer], APRX 6-8 WEEKS Speciality: Acuity: 4 Enc [...] 19:44:03 12/13/2019 19:44:03 12/13/2019 19:44:03 ADDRESS: [address] [place] [id number] [facility] DOC NOTES: MEDICAL INFORMATION: Prescriptions Given: Medications to Continue with No Changes Other Medications acetaminophen-hydroc odone (Randolph 325 mg-5 mg oral tablet) 1 Tablets By Mouth every 4 hours as needed for pain. Refills: 0. mupirocin topical (Bactroban 2% Cream) 1 Application Topical 3 times a day. Refills: 0. PATIENT EDUCATION INFORMATION: Instructions: Swallowed Foreign Body, Adult, Gcjt-jc-Ripl Follow up: With: Address: When: Chao Blackwell [address] [place] [address], [facility] [place] [address] Business (1) In 3 days 12/16/2019 DIAGNOSIS: 1:Ingestion of foreign body Normal [facility] ED Patient Education Noteon 12-13-2019 ED [...] Document Reviewed: 05/22/2011 ExitCare? Patient Information ?2015 [employer]. This information is not intended to replace advice given to you by your health care provider. Make sure you discuss any questions you have with your health care provider. Normal [facility] ED Patient Summaryon 020 ED Patient Summary [address] [address] Patient Discharge Instructions Person Information Name: MYA MYLES Age: 29 Years Arrival Date: 12/13/2019 18:29:24 Discharge Diagnosis: 1:Ingestion of foreign body Primary Care Physician: Chao Blackwell III, DO Provider Information Primary Provider: [employer] Layer:None The exam and treatment you received in the Emergency Department were for an urgent problem and are not intended as complete care. It is important that you follow up with a doctor, nurse practitioner, or physician?s baking assistant for ongoing care. If your symptoms [...] Instructions: With: Address: When: Chao Blackwell [address] [place] [address] Business (1) In 3 days 12/16/2019 In the event that this physician does not participate in your insurance network, please consult with your insurance company to find a nearby participating provider. Patient Education Materials: Swallowed Foreign Body, Adult, Ptwv-ph-Ihph A MESSAGE TO ALL PATIENTS REGARDING OPIOIDS PRESCRIPTION OPIOIDS: WHAT YOU NEED TO KNOW Prescription opioids can be used to help relieve mlpgvplw-sc-eienab pain and are often prescribed following a [...] be struggling with addiction, tell your health healthcare management consultant and ask for guidance or call SAM[employer]?S National Helpline at 7-908-218-ECIB. (more content not included)... Normal [facility] Vital Signs Date Time Vital Sign Value Performing Clinician Rene hernandez 12-12-2023 09:52-0400 Body mass index (BMI) [Ratio] 35.48 kg/m2 [employer] Work Phone: [facility] [employer] 12-12-2023 09:52-0400 Body weight 88 kg [employer] Work Phone: [facility] [employer] 12-12-2023 09:52-0400 Diastolic blood pressure 68 mm[Hg] [employer] Work Phone: [facility] [employer] 12-12-2023 09:52-0400 Systolic blood pressure 110 mm[Hg] [id number] Work Phone: [facility] 11-27-2023 15:35-0400 Body mass index (BMI) [Ratio] 34.57 kg/m2 Catherine TRACY Work Phone: [facility] 11-27-2023 15:35-0400 Body weight 85.73 kg Catherine TRACY Work Phone: [facility] 11-27-2023 15:35-0400 Diastolic blood pressure 76 mm[Hg] Catherine TRACY Work Phone: [facility] 11-27-2023 15:35-0400 Systolic blood pressure 114 mm[Hg] Catherine TRACY Work Phone: [facility] Healthcare Encounters Encounter Date Encounter Type Care Provider Facility Start: 12-24-2023 End: 12-24-2023 Orders Only Liliam Parra RN [facility] Comment on above: Polyhydramnios, ante , single or unspecified fetus (Primary Dx); Lymphedema; Family history of congenital anomaly Start: 12-23-2023 End: 12-23-[address] [facility] Start: 12-12-2023 End: 12-12-2023 Bamboo flowsheet Deven Russel DO Work Phone: [facility] Start: 12-12-2023 End: 12-12-2023 Bamboo flowsheet Deven Russel DO Work Phone: [facility] Start: 12-12-2023 End: 12-12-2023 ambulatory DEVEN RUSSEL Not Available Start: 12-12-2023 End: 12-12-2023 flow sheet Deven Russel DO Work Phone: [facility] Comment on above: Third trimester preg faina; 34 weeks gestation of ; Accessory placenta, third trimester Start: 12-09-2023 End: 12-09-[address] [facility] Start: 12-06-2023 End: 12-06-[address] [facility] Start: 12-04-2023 End: 12-04-2023 Office consultation new/estab patient 40 min Alysia Lee MD Work Phone: [facility] Comment on above: Obesity affecting pr egnancy in second trimester, unspecified obesity type (Primary Dx); Polyhydramnios, antepartum, single or unspecified fetus Start: 12-04-2023 End: 12-04-2023 ambulatory MARINA [facility] Start: 11-27-2023 End: 11-27-2023 ambulatory CATHERINE [...] Not Available Start: 10-08-2023 End: 10-08-2023 ambulatory [facility] Start: 09-09-2023 End: 09-09-2023 ambulatory CATHERINE BAEZA Not Available Start: 09-06-2023 End: 09-06-2023 ambulatory [facility] Start: 08-12-2023 End: 08-12-2023 ambulatory DEVEN RUSSEL Not Available Start: 07-30-2023 End: 07-30-2023 ambulatory LADONNA NORTHEIM Not Available Start: 07-08-2023 End: 07-08-2023 ambulatory DEVEN RUSSEL Not Available Start: 06-07-2023 End: 06-07-2023 ambulatory DEVEN RUSSEL Not Available Start: 05-17-2022 End: 05-18-[address] IRENE ZUÑIGA Facility: Start: 05-16-2022 End: 05-16-[address] DEVEN GOODE . Facility: Start: 02-16-2020 End: 02-16-2020 Subsequent hospital visit by physician Najma Hilliard Work Phone: [facility] Procedures Date Procedure Procedure Detail Performing Clinician Start: 12-12-2023 Urnls dip stick/tabl et rgnt non-auto w/o micrscp Deven Goode DO Work Phone: Start: 12-04-2023 End: 12-04-2023 Glucose quantitative blood xcpt reagent strip Alysia Lee MD Work Phone: Start: 11-27-2023 Urnls dip stick/tabl et rgnt non-auto w/o micrscp Catherine TRACY Work Phone: Plan of Treatment Date Care Activity Detail Author Start: 12-23-2024 End: 12-23-2024 US MFM with or without consult US MFM with or without consult Imaging Routine Polyhydramnios, antepartum, single or unspecified fetus Lymphedema Family history of congenital anomaly Expected: 12/23/2024 (Approximate), Expires: 12/23/2024 [facility] Work Phone: Comment on above: Expected: 12/23/2024 (Approximate), Expires: 12/23/2024 Start: 12-03-2024 Tobacco Screening Tobacco Screening [facility] Start: 09-05-2024 Adult BMI Screening Adult BMI Screen ing [facility] Start: 01-01-2024 End: 01-01-2024 Patient encounter procedure 01/01/2024 11:00 AM EST Appointment [facility] [address] [place] [id number] [facility] Start: 12-25-2023 End: 12-25-2023 Patient encounter procedure 12/25/2023 3:50 PM EST Routine [facility] [address] [facility] [place] [id number] Catherine Baeaz PA [address] [place] [address] [facility] Start: 12-12-2023 End: 12-12-2023 Patient encounter procedure 12/12/2023 9:30 AM EDT Routine [facility] [address] [place] [id number] Deven Goode, [address] [place] [address] [facility] Start: 10-20-2023 Influenza vaccination Influenza Vacc ine [facility] Start: 10-20-2019 Influenza vaccination Flu vaccine (# 1) [place], [place] Start: 2013 Screening for malign ant neoplasm of cervix Pap Smear [facility] Start: 06-01-2011 DTaP,Tdap and Td Vaccines (1 - Tdap) DTaP,Tdap and Td Vaccines (1 - Tdap) [facility] Start: 2010 Adult BMI Follow Up Plan Adult BMI Follow Up Plan [facility] Start: 2004 Depression Screening Depression [facility] Bacteria identified in Urine by Culture Urine culture Microbiology Routine Dysuria Ordered: 11/27/2023 [facility] Work Phone: Comment on above: Ordered: 11/27/2023 Payers Date Payer Category Payer [facility] [employer] [id number] 2022 [employer] - Other [employer] [id number] 2022 Unknown BCBS BCBS [id number] [id number] 2022-Present [phone] [id number] [place] [id number] 2022 Unknown [id number] 1992 Unknown [id number] 2.16840.1.301387.3.579.2. 593 1992 Unknown [id number] 2.16840.1.201396.3.579.2. 593 1992 Unknown [id number] 2.16840.1.382084.3.579.2. 1285 1992 Unknown [id number] 2.16840.1.003283.3.579.2. 1285 1992 Unknown [id number] 2.16840.1.350496.3.579.2. 1285 1992 Unknown [id number] 2.16840.1.918749.3.579.2. 1285 1992 Unknown [id number] 2.16840.1.976119.3.579.2. 1285 1992 Unknown [id number] 2.16840.1.764656.3.579.2. 1259 1992 Unknown [id number] 2.16840.1.511805.3.579.2. 1259 1992 Unknown [id number] 2.16.840.1.402976.3.579.2. 9 1992 Unknown [id number] 2.16.840.1.561824.3.579.2. 9 1992 Unknown [id number] 2.16.840.1.896728.3.579.2. 1258 1992 Unknown [id number] 2.16.840.1.321576.3.579.2. 9 1992 Unknown [id number] 2.16.840.1.717986.3.579.2. 9 1992 Unknown [id number] 2.16.840.1.973562.3.579.2. 9 1992 Unknown [id number] 2.16.840.1.526049.3.579.2. 1259 1959 Unknown [id number] Social History Date Type Detail [facility] [place] Start: 1990 Sex Assigned At Not on file [facility] [place] Start: 07-30-2023 End: 09-06-2023 Tobacco smoking status [facility]IS Never smoked tobacco [facility] Start: 07-30-2023 End: 09-06-2023 Tobacco use and exposure Smokeless tobacco non-user [facility] Start: 07-30-2023 End: 12-04-2023 History of Social function [facility] Start: 07-30-2023 End: 12-04-2023 Tobacco use panel [facility] Start: 05-01-2023 [facility] Start: 12-04-2023 Alcoholic beverage intake Ex-drinker (finding) [facility] Within the past 12 months we worried whether our food would run out before we got money to buy more. Never True [facility] Start: 08-15-2023 Sex Female (finding) [facility] Clinical Notes 04-21-2020 to 12-23-2023 Telephone Encounter [...] THIRTY MIN GROWTH U/S WITH MFM IN [place] OR HERE AT [facility]. THANK YOU LOYDA documented in this encounter [facility] 12-23-2023 Telephone encounter Note CALLED PT AND LEFT A MESSAGE FOR HER TO MAKE A THIRTY MIN GROWTH U/S WITH MFM IN [place] OR HERE AT [facility]. THANK YOU LOYDA [facility] 12-12-2023 History of Presen t illness Narrative [...] nursing note reviewed. Exam conducted with a paper deliverer present. Vitals: Estimated body mass index is [...] antibiotic for UTI. Patient voiced that at [facility] they discussed extra fluid & reassurance [...] Deven Goode DO documented in this encounter [facility] 12-09-2023 Miscellaneous Notes I LEFT A MESSAGE FOR PT TO CALL ME, I WILL CALL PT BACK TO SCHEDULE HER FOR A GROWTH U/S, ALSO A VIDEO VISIT WITH ONE OF THE DRS documented in this encounter [facility] 12-09-2023 Telephone encounter Note I LEFT A MESSAGE FOR PT TO CALL ME, I WILL CALL PT BACK TO SCHEDULE HER FOR A GROWTH U/S, ALSO A VIDEO VISIT WITH ONE OF THE DRS [facility] 12-06-2023 Miscellaneous Notes I LEFT A MESSAGE FOR PT TO CALL ME SO WE CAN SCHEDULE A GROWTH U/S. PT THINKS SHE ONLY NEEDS U/S AT PRIMARY OB OFFICE. CATHERINE Shahid SAID SHE NEEDS TO COME HERE. THANK YOU documented in this encounter [facility] 12-06-2023 Telephone encounter Note I LEFT A MESSAGE FOR PT TO CALL ME SO WE CAN SCHEDULE A GROWTH U/S. PT THINKS SHE ONLY NEEDS U/S AT PRIMARY OB OFFICE. CATHERINE Zehra SAID SHE NEEDS TO COME HERE. THANK YOU [facility] 12-04-2023 History of Presen t illness [...] mouth in the morning., Disp: , Rfl: [id number] acid ( 19) 29 mg iron- 1 [...] ALYSIA LEE MD documented in this encounter [facility] [employer] 11-27-2023 History of Presen t illness Narrative [...] Diagnosis Date ADHD (attention deficit hyperactivity disorder) ([facility]) HISTORY PAST MEDICAL HISTORY SOCIAL HISTORY Past Medical History: Diagnosis Date ADHD (attention deficit hyperactivity disorder) ([facility]) Social History Tobacco Use Smoking status: [...] of: DEMARCUS Ross documented in this encounter [facility] 08-16-2020 Note DATE OF DISCHARGE: 0 08/05/2020 [...] complications. Course: Without complications. Sukhdeep Schaffer MD, [facility] [place] Dictated: 08/13/2020 #[id number] Typed: 08/15/2020 #[id number] cc: Sukhdeep Schaffer MD, [facility] Comment on above: Result Comment: Elec tronically Signed By: Karime MACEDO, Sukhdeep Olivera\.br\Date and Time Signed: 08/16/20 08:09 EDT 08-05-2020 Note The following Patien t Education Materials have been given to the patient: EducationMaterial [facility] 08-04-2020 Note Patient: LAZARO MYLES Age: [...] Attention deficit hyperactivity disorder / SNOMED CT 1406179897 / Confirmed Chronic fatigue syndrome / SNOMED CT 16532089 / Confirmed Depression during / SNOMED CT 6506983885 / Confirmed Insomnia / SNOMED CT 363657225 / Confirmed Obesity / ICD-9-CM 278.00 / Possible Obesity complicating , third trimester / SNOMED CT 7663373479 / Confirmed Ovarian cyst / SNOMED CT 543794165 / Confirmed / SNOMED CT 003049191 / Confirmed labor / Patient Care / Confirmed Supervision of high risk in third trimester / SNOMED CT 98538560 / Confirmed Histories History History (1,0,0,2) # 1 Baby 1 Outcome Date: 2008 Outcome: Live Outcome or Result: Vaginal Gender: Female Gest Age: 41 weeks Wt: 3232 g Hospital: [facility] Labor: -- Child's Name: -- Baby's [...] (11/21/2009) DENIES Employment/School 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 Home/Environment Lives with Children, Significant other. Living [...] hearing, Oral mu (more content not included)... [facility] Comment on above: Result Comment: Elec tronically Signed By: LAURA MACEDO, Funmilayo Stallings\Date and Time Signed: 08/04/20 13:03 EDT 07-31-2020 Note The following Patien t Education Materials have been given to the patient: [facility] 07-26-2020 Note The following Patien t Education Materials have been given to the patient: [facility] 07-11-2020 Note HOSPITAL REGULATIONS : ALL [...] for further cervical progression. Sukhdeep Schaffer MD, [facility] [place] Dictated: 07/08/2020 #[id number] Typed 07/08/2020 #[id number] cc: Sukhdeep Schaffer MD, [facility] Comment on above: Result Comment: Elec tronically Signed By: Karime MACEDO, Sukhdeep Olivera\.br\Date and Time Signed: 07/11/20 07:40 EDT 07-08-2020 Note The following Patien t Education Materials have been given to the patient: [facility] 04-21-2020 Note The following Patien t Education Materials have been given to the patient: [facility] Evaluation note Diagnosis 32 weeks gestation of Third trimester state, incidental Dysuria [facility] Diagnosis Obesity affecting in second trimester, unspecified obesity type- Primary Polyhydramnios, antepartum, single or unspecified fetus [facility] Diagnosis Third trimester state, incidental 34 weeks gestation of Accessory placenta, third trimester [facility] Diagnosis Polyhydramnios, antepartum, single or unspecified fetus- Primary Lymphedema Other noninfectious lymphedema Family history of congenital anomaly Family history of congenital anomalies documented in this encounter [facility]ructionsNot on filedocumented in this encounter [facility]Not on filedocumented in this encounter [facility]Not on filedocumented in this encounter [facility] Summary Purpose Family History No Family History Records FoundNo Family History Records FoundNo Family History Records FoundNo Family History Records Found Advance Directives No Advanced Directives Records FoundNo Advanced Directives Records FoundNo Advanced Directives Records FoundNo Advanced Directives Records Found Additional Source Comments INFORMATION SOURCE (unrecogn ized section and content) DATE CREATED AUTHOR 09/15/2020 [facility] DATE CREATED AUTHOR AUTHOR'S ORGANIZ ATION 06/29/[address] [facility] DATE CREATED AUTHOR AUTHOR'S ORGANIZ ATION 12/07/2023 [facility] DATE CREATED AUTHOR AUTHOR'S ORGANIZ ATION 12/13/[address] [facility] d[facility] Specialists EPIC Reason for [...] BE BASED ON THE PRIMARY CLINICAL RECORDS. [facility] [employer] provides no warranty or guarantee of the accuracy or completeness of information in this document.
== END 2023-12-26 19:57 | disposition home or self-care (01) ==
LOC: LAB 19:56
PROVIDERS: Visit Provider Physician Assistant
DX: Z34.93 Encounter for supervision of normal pregnancy, unspecified, third trimester (principal)
CPT/HCPCS: 87081; 87150

== ENCOUNTER 2024-01-07 09:10 | Outpatient (OUT) | payer BC, SELFPAY ==
--- OUTSIDE RECORDS SUMMARY | 2024-01-07 09:32 | XMS_ITS | CCD ---
Author Organization [facility] Care Team Providers Care Tunnel Mucker Name Role Phone Unavailable Primary Care Provider Unavailabl e RUSSEL ., DR WILKERSON Admitting Unavailable RUSSEL ., DR WILKERSON Attending Unavailable RUSSEL ., DR WILKERSON Consulting Unavailable BEAUMONT, DR IRENE Dee Consulting Unavailable RUSSEL ., DR WILKERSON Attending Unavailable RUSSEL ., DR WILKERSON Admitting Unavailable RUSSEL ., DR WILKERSON Consulting Unavailable Unavailable Primary Care Provider Unavailabl e Unavailable Primary Care Provider Unavailabl e RUSSEL, DEVEN Attending Unavailable LADONNA CEBALLOS Attending Unavailable RUSSEL, DEVEN Attending Unavailable ARYAN, CATHERINE Attending Unavailable RUSSEL, DEVEN Attending Unavailable RUSSEL, DEVEN Attending Unavailable ARYAN, CATHERINE Attending Unavailable RUSSEL, DEVEN Attending Unavailable ARYAN, CATHERINE Attending Unavailable ARYAN, CATHERINE Attending Unavailable RUSSEL, DEVEN R Referring Unavailable MOUSSA, RY BERGERON Attending Unavailable SUSIE VELASCO Referring Unavaila ble RUSSEL, DEVEN R Referring Unavailable MARTINEZ, MARINA Attending Unavailable RUSSEL, DEVEN R Referring Unavailable ALYSIA LEE Attending Unavailable RUSSEL, DEVEN R Referring Unavailable RUSSEL, DEVEN R Referring Unavailable Medications [...] 7 days. 21 capsule 11/27/2023 12/04/2023 Active [id number]-qlbm-[id number] acid ( 19) 29 mg iron- 1 mg tablet,chewable (5 sources) ge186-qxxy-zjqur acid ( 19) 29 mg iron- 1 [...] Episodic Other diseases of veins and lymphatics (2 sources) Lymphedema; Translations: [Lymphedema, not elsewhere classified] 12-24-2023 Chronic Other diseases of veins and lymphatics [...] unspecified trimester, not applicable or unspecified] Onset: 12-05-2023 12-04-2023 Episodic Residual codes; unclassified (1 source) [...] UA Negative Negative - 4(70) +++ mg/dL [facility] Blood, UA Negative Negative - 50 [place]/mcL [facility] Clarity, UA Clear [facility] Color, UA Yellow [facility] Glucose, UA Negative Negative - 1999(110) ++++ mg/dL [facility] Interpretation and review of laboratory results Normal [facility] Ketones, UA Negative Negative - 160(16) ++++ mg/dL [facility] Leukocytes, UA Negative Negative - 500+++ Saeed/mcL [facility] Nitrite, UA Negative Negative - Positive [facility] pH, UA 6.5 5 - 9 [facility] Protein, UA Negative Negative - 2000(20) ++++ mg/dL [facility] Spec Grav, UA 1.015 1 - 1.03 [facility] Urobilinogen, UA 0.2 0.2 - 12 mg/dL [facility] Urinalysis macro (dipstick) panel (U)on 12-12-2023 Bilirubin, UA Negative Negative - 4(70) +++ mg/dL [facility] Blood, UA Positive Negative - 50 [place]/mcL [facility] Comment on above: trace Clarity, UA Clear [facility] Color, UA Yellow [facility] Glucose, UA Negative Negative - 1999(110) ++++ mg/dL [facility] Interpretation and review of laboratory results Abnormal [facility] Ketones, UA Negative Negative - 160(16) ++++ mg/dL [facility] Leukocytes, UA Negative Negative - 500+++ Saeed/mcL [facility] Nitrite, UA Negative Negative - Positive [facility] pH, UA 7 5 - 9 [facility] Protein, UA Negative Negative - 1999(20) ++++ mg/dL [facility] Spec Grav, UA 1.02 1 - 1.03 [facility] Urobilinogen, UA 0.2 0.2 - 12 mg/dL [facility] Glucose random or fasting- P OCTon 12-04-2023 External Glucose Fasting Or Random (Fbs) 126 [facility] POCT Hemoglobin A1con 2023 HbA1c (Bld) [Mass fraction] 5.1 % 4 - 7 % [facility] Urinalysis macro (dipstick) panel (U)on 11-27-2023 Bilirubin, UA Negative Negative - 4(70) +++ mg/dL [facility] Blood, UA Negative Negative - 50 [place]/mcL [facility] Clarity, UA Cloudy [facility] Color, UA Yellow [facility] Glucose, UA Negative Negative - 1999(110) ++++ mg/dL [facility] Interpretation and review of laboratory results Normal [facility] Ketones, UA Negative Negative - 160(16) ++++ mg/dL [facility] Leukocytes, UA Negative Negative - 500+++ Saeed/mcL [facility] Nitrite, UA Negative Negative - Positive [facility] pH, UA 7.0 5 - 9 [facility] Protein, UA Negative Negative - 1999(20) ++++ mg/dL [facility] Spec Grav, UA 1.025 1 - 1.03 [facility] Urobilinogen, UA 0.2 0.2 - 12 mg/dL [facility] PAP ACOG PANEL 2: 23 to 31on 05-24-2022 . . Normal [facility] Comment on above: Performed By: #### [id number] #### [facility] [address] [address] [address] Michael Garrett Age Gdln ACOG Testing - [facility] Comment on above: Performed By: #### [id number] #### [facility] [address] [address] [address] Michael Garrett DIAGNOSIS: Comment [facility] Comment on above: Result Comment: NEGA TIVE FOR INTRAEPITHELIAL LESION OR MALIGNANCY. CELLULAR CHANGES ASSOCIATED WITH INFLAMMATION ARE PRESENT. Performed By: #### [id number] #### [facility] [address] [place] [address] Dr. Michael Garrett Methodology: Comment [facility] Comment on above: Result Comment: This liquid based ThinPrep(R) pap test was screened with the use of an image guided system. Performed By: #### [id number] #### [facility] [address] [place] [address] Dr. Michael Garrett Note: Comment Normal [facility] Comment on above: Result Comment: The Pap smear is a screening test designed to aid in the detection of premalignant and malignant conditions of the uterine cervix. It is not a diagnostic procedure and should not be used as the sole means of detecting cervical cancer. Both false-positive and false-negative reports do occur. . Performed By: #### [id number] #### [facility] [address] [place] [address] Dr. Michael Garrett Performed by: Comment Normal [facility] Comment on above: Result Comment: Francisco Otero, Beverage Steward (ASCP) Performed By: #### [id number] #### [facility] [address] [place] [address] Dr. Michael Garrett Reflex Criteria: Comment [facility] Comment on above: Result Comment: The HPV DNA reflex criteria were not met with this specimen result therefore, no HPV testing was performed. . Performed By: #### [id number] #### [facility] [address] [place] [address] Dr. Michael Garrett Specimen adequacy: Comment Normal [facility] Comment on above: Result Comment: Sati sfactory for evaluation. Endocervical and/or squamous metaplastic cells (endocervical component) are present. Performed By: #### [id number] #### [facility] [address] [place] [address] Dr. Michael Garrett US PELVIS AND TRANSVAGon [...] ZUÑIGA Date: 2022-05-18 07:45 Normal [facility] Nursing Assessmenton [facility] Nursing Assessment [id number] [email or web address] Normal [facility] Coding Summary.on 08-16-2020 Coding Summary. CD:[id number] Gh0bWw+PGhlYWQ+PE1FV EEwJ28dxKAkxX7VK7kHH F5XCPJDOIMJOV4KIP4io BO1QIqrM6BpfdMg NnyanEGeFP37KMk8VMV5 jPdoWBbqcQ3qbVImI5u4 EgZcMP07lU33WIpkGKFu BiG5IeLrtvkacLSm D5pnKsHwvKQzCqy+PHRh YmxlIHdpZHRoPScxMDAl LiQizWtzRD1cEd6oAYPg LWNvbGxhcHNlOiBj y0tjBNXwESvtQE9byYvd B0CycMT6RKXhi2s2Sr90 dHI+HCUxQZU1iMsdTGnb k793FhQbi5szHCP4 wDWxHBzjUOI6Y83nr4S1 EBKpCUNpBBY7rDM5jX4v mLudsnuxG9AmpTOoKdW4 PBP4lFCkeY0wjMok runtqH3lBrb+H46YNY3G HCIWTT8VXzm0W5HaRgwx dHI+XE64OFSoTQ37pLJf lQLaj3nqzJh8GwPv QYAvFXC1cNggPXpus7Bq NERbA87saYVrk5E8BTIw dLlxzRGaMhIsrCN8kB0u MZwiltanf1ayhknj Sxfxm7vvdn61fH60B25t BIsoAKZtOEF9WWMdQGJa mUtcwl9ciO7oLt6+IDxj s7stj5yuaEu4DoMo CRCnvlZmqPxdHHI2q8Mn Bg43Q1VzsTptn0BcUeh8 ew91bYVrw3O5rEZ4FAqg UAGzeE9eRDxiSnY9 KWFkXqFyrJ22rEBdVYpe Iy2vyMurmDlrUG1bSGNo xvcaGZEgtZ8oFIWqbBNo iCccCW0tVCZweqgk h312FpRxNUG4TXIzjGEn F9ZnaJ8hDsIiKHMhMYMr L0WoeLUuRElcS049AMei VbO2EPApcsMcE4Xd UFKiaScvLnK2x8Y9Oh9Y h0NylgiyEAT6NWxcTVT6 VqQ5IvOtRfT8C6AeQks9 VDLdcHbuYJ6aK2Ti EAHasprgunjgsNW3XLWr SABsnW18lPUzCDzfSw2x a5X5f394ZFWrJFEggF96 Qp0swWldFDTmoMNN xD0cekzfp6mngsekWkQe BIPvHUz5GNr9CPGyyNlw DkVkZXL1FrS8LSB9fMAw cX3qlXdjsrixtO9s Oyc+Q53iiM0nTNJ2QAB9 kgztRNEqqmPlXB78VQ27 X8GnXeutoXZsoFV+PGRp fsQbiMmiFM3kFfZs o8tfv9PtJIbdY6RbTLGq RMdlCma9XFHxSWY7rUI6 lJ0lAZVdEKkls6S8tHO4 A6XrjtQzfn8by4av ZVTeTTrmU22hlESxt7K3 JUDrgWQ0HOVveRzzUuVm gO13Kfo+DZRxtInax7Dg Adeaq0czy0phnJh6 IjMwJSIgdmFsaWduPSJ0 m8TdHn54L41rWVlzLUTp LSQuZTEtOIRajBnjik3f zF5kRj0+PGNvbCB3 vFE9rZ8tDGQlWbE8SVjw C633PlPiuOCbPwpei8yt t7iieWc6VeZwBCHikoCa jAmsAKO6f3PfBx45 O60hGPptEPXqCHDbNKTp BKJpkHhihy8nkU6bMw7+ KT0jh8djye72mH64hME+ HBAfZVT2bRvpCXaj NMOuqD1pVBmoKaZ6YDZo GtLqjC92bWJxCUuqCu3g tPjtqUfsAI3cTWFewufz c250HsLip6gwBIMp vMMaVLzjRFY6X00rx2A8 OTGaGUJxVEU1lIC9tV5o bGlnbjogbGVmdDsgdmVy qFmeMMakQDdfW003 IHRvcDsnPlBhdGllbnQg OqRkQUj0C6VdUvr2RWQp lLvkZV2xvJUyPNjmFz9v aOfzbIicTQ7sGBDk qffsl876TrWug7ylJTWa oOYvSAcuSCG8S53po2H6 AVXtLMPqKGD4dGR8hM6g bGlnbjogbGVmdDsg hvKjzAfhSXunRAzwZ934 IHRvcDsnPkJpcnRoIERh cOF4HZ82SP10cDWje3Y1 iMP2W7MmSETmidis fcuqcDN7FHLsXOUogE15 Iz7vkIbpQu9lZPQbIAL8 QEPpwEKuP9UsaS8sIdWa NNBvXHRkP9KxsBMe RUowG367HTqnVxL5CFOu leDbO0MpUOHqaCeaWfR8 g4N7Sf5XC4H1WK09BR80 qPNqc7A1bTE1A1Sv LVIpejddhliefJL7TIVr YRMknF25Gg0ceWooZa7k YHWzWQW2PCTsuHBtA1Lz yU2gJbFnWGCqLELg W4IfdFLkKZczO309AGhi NrU9UAUkhrFiT4QxJVGk jMraIjU8c8X0Dd1EHLv0 IH20FI80dXBhv4E1 dXE3N7EcSOIytethboio hQS2VSCkANEnvL18Cy3j lFvyTj4oRVJwHXN5SOLx gKErW2VzcC8iKrKw XYItZHAlN0KstRPvFUlv R390OXxjFnP3UMKnkpGh O6XzXMLasNwcGvX9z7U7 Xd0EBABoND92RTI8 xAS5QH59XC72Q2OnFwnb dGFibGU+PHRhYmxlIHdp ZHRoPScxMDAlJyBzdHls GF3uXc9rQGKoTIKa zAdaxGXoXfLkw2xiFKIp LJyzMB5tgLrnV3TzkAY7 ZDTbl8w9Kk21L96eA5Bt dXA+AKRuhKR1lXD1 iM8hWbZmLmV0ZLgzA768 HxLtuEDhMoudm8bhc0zc qKf1PmE5TGLcywVlxTuh FMB2f3SoEv50V08p IHdpZHRoPSIxNSUiIHZh rLnaxo0axK4sMt7+PGNv dAG3ePD9qB7wSnDwZmC2 FZxiE080TmXiyAKk Uciqp4ezi7cjoSf3YlZv CYDlrrKioZvkUCT3v5Qq Mj14V4GryUman3FpOnl5 dv78wSBec6R7nCK8 W2UmAFMuskfsqIFncEon SV1cVXPuxtrdMDJjuH5o CIBhE8d0SnHmVcW5ZXyf Y7WbqgC5LRXatSMa DJjvDMC2A17dm4B9BQYr CSIkFMH3dWE3zY5dwXxk bjogbGVmdDsgdmVydGlj AMshWJdxH320BIIs nInvGNHokN8mOPGipTSb bRweTS1nADLgjwnxNdNS JduAOx3aSTDUTfQRF8Lo TDwvdGQ+PHRkIHN0 lOquWYobKXFvxR9jQUVx I6y3ZxSbYqH9BIalG8Sd MNLrgqcyPk75aC7zSdNu GmD0RJqpY7OhagR0 EXHxsWLtRPxpSWR7Q69h r0B7KOZnJAJsSBH5wBN9 mK6pnNxmythcmNWmeJlw dmVydGljYWwtYWxp K586YPKssZbvRlX9AiVf PrJ3JLC4D8DfCne6FJBn yBgfAH5ywANwOKkxRt7l zJixtOaoKI8xQFOv vjhnURFxoC9zOQVxnHIw rCtxUG0rRYNtvqhmt387 NgEyJWZ1MFDgzOYnX3Dl kG0lWiAiURYqQJMp U4WlpZEeGTjgF406UDif ZuH4ZJTkztFcH2XnFUAd kZktIgD1r7S9Mk3pHNIF ZWFyczwvdGQ+PHRk IBV1lPfwGLagJAZsgY7t UKYuY3j6GiMeYsF0YQue C6YiYJAkqtruSv10wL4u GyCvGpP7CQzdW0Bi quW0MIQtfNClCAqfHGW2 R10lg2H0UIIrTAIrKDP5 pHX8aZ7ohXbpmxahwMBc dDsgdmVydGljYWwt MSmfD469XQZixPiuLxXa bWFsZTwvdGQ+PHRkIHN0 dAlkZNsfVNYlfR1lSTKm I9u6MlClPiC6OIud J9MnXSExwkvkFu99iG3r TxLoYsA8DVkeZ0WujsR0 LULllABuMGilDTB1W65a o8I7CFHnOVYtSMJ3 dJC5aT6tlNizqavetZYt dDsgdmVydGljYWwtYWxp K990JEBlmPmsSp82iCJm eYegudF6D3NsQjld dHI+ZL46HVWhMI10hLAh pTZyt8vmcEv1DxHvEQXc WCC1hLjfYHocl2DfLMOk N17fvJNui5K5KJTg xCketVDaNqSbqYQ0rY1r YPkazdhfn1sfkbwhAywo p5vgeg13tR65X17uRLfp ZHRoPSIzMCUiIHZh uXiypd9esT5cOu4+PGNv oVF3iJG8cI7uVhMeKyY7 MJmqX635TyBkgDSpBqkm e8zyg5iigTn3CtNc ZDXdmvWaqUykLOG3a7Jl Gq05L28qEDizHMQxFOKi QKCgNSZaqHlblz4yyT2g Ii8+SD2im5poup68 uO84xVY+QCRiZHK1sEiu DYfqAKQduU9kCPhgOqY5 ICNwHsKaeC76wPDjSJdd Qa9xdMkhgHijLL9e TXFmcxfcf737AfGhk0nc NPGkaWGrBThlKHK5B69d a3S9MLYiVODjFTV6eQV3 eE2igFoshyfncBDv dDsgdmVydGljYWwtYWxp X022RKGvaPqlFyGjrXAq E3rocjOORA6dCsilzAY+ HGMoZDU1pXlkJZzp RXNckV9kQSAmQ9w3BeOw BtS0VQpnP2DlyxK4VEAo kXZbVKIqlRWUoQ9ttrty p5tzhfyaFdMoCFEq NUk2YKc5INYzoFasOpNt SQC6RbQ0BVB4cIKmdH8r zXbnvnweeR0tWis+RklO OjwvdGQ+PHRkIHN0 qFshOTrwQADhdE7dDQIv H1z1MvSzRtC6XMnyY2Ws ygP2UECgbDIiRGNlqHIQ cO2wxxbwb1svazym DtRjZPLeDPm5AVz0DPCa rUfvIuDeBIL8OyG9SDM8 dFYsiH2agJpffdklmN8a Oyc+TVJOOjwvdGQ+ CDEdMRW0xIsjJOcoUJZj hF6wPPBxT5x2DaIdZqR0 GWksP2BpdjN6FDOyxNHo SKZqjTISoV3pbzye i7dctjrmVsDvEIPeVYf7 VQv1EVJmoExdKnCcZNQ9 BhM2EHX4tWIfjD0frOhj befxqM5yHfp+UGF5 OSR9JL83NK23M6AsZnhm dGFibGU+PHRhYmxlIHdp ZHRoPScxMDAlJyBzdHls FC6wLx2iSHLaARFn bGxh (more content not included)... Normal [facility] Coding Summary.on 08-15-2020 Coding Summary. CD:[id number] Gh0bWw+PGhlYWQ+PE1FV LSlC17ffHUslA2VA6aFW S0TVXRIIZQXTU4UAZ0jv OJ7UPbfG6AkaqLf OzixvSZjTS21TXy6XEO2 gXspKWbrhS1hjFGbB5g6 OcOjOD99cR09DXegCMMt EvP4LsWrlonfiSAt R4bkYwUanFNvGsl+PHRh YmxlIHdpZHRoPScxMDAl OcAdiSuoWQ5gWt9lYOOd LWNvbGxhcHNlOiBj s0mpNUEcAXewLK5kzXzg F3SwdSD8RSQij1q1Qa47 dHI+ODSyBNU3rVhsISbl n003TxDap1htBIY4 gGRtBQaeEYG1Z24hk4F4 MUAmCDTnLJB8vUC0aU1f gIkjaszkF6EeqHYcJdG2 WFO5aUJsuG8scRop nijczL7xUpa+E88LGQ8B OCALVK3QTjg7S7TsUgkd dHI+TX67YRKbBF49uVYw fXEso6gqqIt5WjWu EHPiFGW3mRmpITfcc4Dg ATLzJ93cxIZrj0B3OQNi hSthbNOrVoIpxYE6iU2o GHmvvwmyw0cnnkid Kqoml0sfoa41tG66P13b UTicIKNeSOH0WAZdBZUf qMvyqi7oeO9dTy2+IDxj b4awq1dzkAu0UeNs KKTqzbYigTylETQ6z6Sj Ul10C4RufYesf4WmQem7 rs77yFAck8E7pWL4BPzo UDJnzJ6nNOggJkX6 RLRmPnEnvU01yDQkHOqt Ij2ltPqzxUfbBT7yHDNg vqymAHGknZ7lOPVcuOAp aCdcTH7tZEBsjpik f214PcIxZJJ1UXYhbOAr S5TvfN3dYvBlYAFpNZOg B7FtaRHtAXdiB592SQcw EdX2MXAvheOcL9Om SRGofKdxQtX3k1J0Mw5R s4ZrfligXPB2QKroAQZ6 YnH7ByBhFfC9N4FvOds8 SQHrcOfvDV8hY3Vn SRTsyibytgtagMS8GSFo RXMuxY27aGFkPCjjWd5j w0Z7s367LNGvKOFdyS24 Hs5dlWynILRxmCIF sV2bvmsgf2rmebcoZoZg LVLuNCk6UEh1FWDgnLal ZkWsWJQ1ZeP8RSL0vTWn gE5dwTeobibvmD5f Oyc+K23agW0ePCF9BEE6 cpkpGFBkttHtET00ZG66 W7IsXclqyABgePY+PGRp edHtiAyxED4cOlZe x1gna8ZjVNhiZ6YaDBTn AYmoOae4QVCeBPF8rIJ6 nX7aGSNsRWglf0G1nMG3 F0JeneZokq3iv1ye EQRpBOtrE40xoYEfa9X7 CJMaoWX2KVWljFvvKzAt xR12Mzv+HVQcvXcld9Nz Rzkpp7kuh9wxnUe4 IjMwJSIgdmFsaWduPSJ0 a5HzUj84O18rDFglLORd BFIiCPDjHJKspEqnna3p vE2aIa6+PGNvbCB3 jLW4jV9lHDZhNvI8VQud L564MrSebPEiIwbri2ii w1uxoLs3BjQgTIUcxxWv kMurOKP3k2YqKz72 A67eXOdlVXGuPYLfWBGw OWBwhVnxov3coF3uWr4+ EU9kf6pwqu73lP18sOU+ YGMvFRO5mXoxGZdn SDHbmY3mAHjlYyL6IREs UhGjwJ32bJGsZRjvQm3i gEvkuBsnBJ3kWZNgdhen b128JrQvm8bnFHHs oHRjWMoiBCR2L16xz3P7 FBMxEPGnCDR1kRI9dH6y bGlnbjogbGVmdDsgdmVy pDmyHMzyQTttL252 IHRvcDsnPlBhdGllbnQg NfAkBPz0G6EnSpj8KVUc nGdyET7zaEBbLUzmXg9p zHdmqGucNO4mPLGy yzquj794XcXzh9kfNWKa hNLiMFmhJAR1E58zi6Z7 YUZqYCBiFJC1lSF0yV1y bGlnbjogbGVmdDsg toNfjHwlWSbnZPdrJ818 IHRvcDsnPkJpcnRoIERh xUM6MC46WK54rHWep6N8 gLW5F1PlCLKptkdm afontXD8UJIaMZAfaX16 Ea8oyDwyFy5mJQZnVBQ0 ARSvsCOhG1FoeN7aTwTb FUAkAOStC0WwpLAl RQvpO009CZozDyR4BBCj jhNcH6BlTHNvpEicBhR6 q6V2Ep9CN9C8CB60KW55 yJNoe8F7dMR9E6Tr PGQdcznowkfrsUR8PVDl GRPaaE73Xu6rcZpcFa6b QJQiHST1JEWgbVOrY9Lb pO9iSmWdHPCsHSHx S5BcmMOfZLmlF770RZaw AkJ6WNKfmlOwM8WxOHOz rChsAnY3j2A2Zf4QLLg5 BL38CN55dDSjk9F8 lPR2P0UuAREvfsagdlzl lAP5DYNsQGAnnC21Fi7b fAmjEv2cEKWvQQR5JKTg pNOdN1YatP1nFbOt IANkNRZiW7KatPCgBQqc T261GHniFrV9MFZphnEs U9ZtOQSyaByiUkR4o5Q2 Wh1TRJLvEP05PST7 pPJ0VC28FR48M6XmDgfu dGFibGU+PHRhYmxlIHdp ZHRoPScxMDAlJyBzdHls ZA1zGh4rDJAnFSFa vYtxxCVrNlIqr7wfMUAe LEfoCA7nzFqeX4HnvPF6 OTXjb8c1Rs56B73cD4Sq dXA+VRCwvOR5xAW0 mJ1fFnUfDqU0SXdgI968 BqDqpNFiWhioe1osh0id hUj3DiD7CJItzeJadRuz MLV1r5AwSy61L84x IHdpZHRoPSIxNSUiIHZh fKuneb8dmE6gMd0+PGNv fEQ9xOM8sN4sJhHdKwM9 GBgiH398NmLeyKEu Wbbpd6kmn5qpmYt8DzBo GLMdbhYkkJxhVTE5s6Wv Ax13H4MxiCwpp7MfWze7 dy84bQWjh2U4hCB5 E7XlAGOvixrnkMDarIwk US5tZSMrzalxIOSzoG6s NQJrD1n9HkCyBnN8RXnq D7EjqbJ2XCIvtDCi SRxuPKM5H26tn6W2VQTe DCPgUTA1rXQ3eR0jwTfs bjogbGVmdDsgdmVydGlj HGtnDFgoN896WQWx fWgxPFZdyK9nIMUgsKLo yFotOM1iMJNwfwrqQtAC UzdBZa2vSSMJZdLVU4Yi TDwvdGQ+PHRkIHN0 hBmrNOqsHKCnlO0zAXAv F4w9GsHiMsK3BAgwT2Rw UYIkqjtdFl20cL7mUmMg LlP5GDvdO8KyqbD0 QCHecJPpVCtcYOY3P42h n1L1QUJhMEObEAX9bAJ1 iP1saFspqgvjgMLviGop dmVydGljYWwtYWxp O130ZEXddVmfYqU2YgXd ZhR8HRW2H4GgVyc3HBHz hTdtZA0ceGQcHKeiRt0t aHdojWvxWX3hEULa zlbgLIDouZ2jUOKmqRWz wVhbSX7gYJJhvioia293 JoCuGXV7KRKnvDYiU9Hq vZ2iSiGdGJGjARMt H3ZbxURuKVeeD942NTrr PxD5YFVurwIgC3XpAFKw mQncViS4e5O0Uc2cSAEF ZWFyczwvdGQ+PHRk GAV2wFkmEBlmNOIayO0g MQCaF4y3DaItLbQ0FIrh Z8BgFZWwbhvqIp41eF8l LaRiHeS4AZuaZ1Zk jjL7CPTbdYWzPKvlWPE2 N70ib3T0KRBnREXlHME0 gGN7xR7kfMyjmodilWLx dDsgdmVydGljYWwt WSdaD066QFXixEdbVaTo bWFsZTwvdGQ+PHRkIHN0 xRezIHclRDEjjQ8oEUIl G9r9BgZnCuJ7AIbw U1UcFEIonrnqAo61mG8s CeTnCoZ2RGnkI9GpctI8 RQBqmRQlPZleAZA6Z01n r6C3FWLiNDVoVMU8 dNA7gQ1iuNvahvgqhIVf dDsgdmVydGljYWwtYWxp E624GFOgiMloTtowfBA0 aWVudDwvdGQ+PC90 fb54M8VmCyqgUpb7INHk EWU0vJL8rK6dTKAjDOuz k1D9eCE6M3EibxTmnq3t p7rlSBPnEPpbK39n sHZev3N2OCGxfNE3ECQz zUxlYsTryA12Fnr+PGNv yUzwx4GyZwwvz7kky7nl nNz1OqXgGCUytsFu nVyoOSH0h2NwNy88F62a IHdpZHRoPSIzMCUiIHZh mEjjek9yqA4dIg1+PGNv dIV0fIW8kD9rTaOe YhT6SRzoM289TuFncCBr Cxtcn5exp9ixeLh2FgIo CGLpnhCvaJlgIIE0r5Qx Bv70I9OqwRulv7Rw Zfo1wf66iOIxy9L7yFE6 L9XlSNThwipsqLEfrUjr LZ5mLWHpsfxoGCGnwO2c SQHkM8p8NrRoZgP1 IPeeM8QcsjG7TZDakTLo QWXwgEREoH9agbkbw9mh yjwrAoPkRMUhUUh8TYg5 LWFsaWduOiBsZWZ0 QgY8JJU3sAHcaK9woPip fttbyV7tIsr+HIz4g1km fSQtJY6viUS9CL38OG68 dVThv6Q5xHE4L5Tc NDQryzqncaflmYN8STHm HQFbwX60Pa1wiSrxYi3r FVNaAUM8ANGidLVqF2Ub dQ5qLxDoKZTdALSe G1EpsARhXGvmD211TCic QnI5XGDljxZrB2OsMJPy zBqlScN3x5K4Cv1EXY05 GU64KU15fEUvp0M9 jLL6S0HeXFWwedkqtpqv mVM6PAEuOKUehC51Uk1u nIpmNw9gJBKgNUW3NNFn hBStV9BvnO1bYsUs UQKlPOOwX0EncFDvEKgh B612IYovCaC1BSRzknCo X7WrUVMtlCzvKjY9l6K1 Ud0YTk25JL36JQ82 iNYin4A6uMR7M3LtNLUw ynzusokwsWS0BVNoTMHu qS39Zn1exAxoYn9yWEWj JEY0KPInxVUmH6Uc zU5lEyKqVKDqSOEbQ4Ao sHSeMCvfF071GQehMaL3 OKWlotUjF1TrNXTbiZaf SuH1z2E6Dm6JPFwt lyh3U9NqJhzzfMY+PC90 JHLgTV80dYAicAGhm8fz eRc1IjVoVPNmDPO1vGla ELyih2CcWFSzM64u bGFw (more content not included)... Normal [facility] Consent for Treatmenton 07-20 Consent for Treatment [id number] #[id number]:127 [facility] General Message Officeon General Message Office --- --- --- --- - -- --- --- --- --- From: Basilio DirectInbox To: MIMI MYLESGunjan Cintron Sent: 08/06/20 02:30:52 AM EDT Subject: Discharge Summary Ready to View A summary regarding your recent visit is available in the Documents section of your health record. Normal [facility] CBC w/Indiceson 08-05-2020 Erythrocyte distribution width (RBC) [Ratio] 15.1 % High 10.9-14.2 [facility] Comment on above: Performed By: #### 2 [id number], [id number], [id number] #### [facility] [address] [place] [address] Hematocrit (Bld) [Volume fraction] 26.0 % Low 34.0-46.0 [facility] Comment on above: Performed By: #### 2 [id number], [id number], [id number] #### [facility] [address] [place] [address] Hemoglobin (Bld) [Mass/Vol] 8.6 g/dL Low 12.0-16.0 [facility] Comment on above: Performed By: #### 2 [id number], [id number], [id number] #### [facility] [address] [place] [address] MCH (RBC) [Entitic mass] 26.3 pg Low 27.0-34.0 [facility] Comment on above: Performed By: #### 2 334389, [id number], [id number] #### [facility] [address] [place] [address] MCHC (RBC) [Mass/Vol] 32.9 g/dL Normal 31.4-36.0 [facility] Comment on above: Performed By: #### 2 [id number], [id number], [id number] #### [facility] [address] [place] [address] MCV (RBC) [Entitic vol] 79.7 fL Low 80.0-100.0 [facility] Comment on above: Performed By: #### 2 018031, [id number], [id number] #### [facility] [address] [place] [address] Platelet mean volume (Bld) [Entitic vol] 8.0 fL Normal 6.4-10.8 [facility] Comment on above: Performed By: #### 2 604956, [id number], [id number] #### [facility] [address] [place] [address] Platelets (Bld) [#/Vol] 259.0 E9/L Normal 150.0-500.0 [facility] Comment on above: Performed By: #### 2 [id number], [id number], [id number] #### [facility] [address] [place] [address] RBC (Bld) [#/Vol] 3.3 E12/L Low 4.3-5.9 [facility] Comment on above: Performed By: #### 2 658270, [id number], [id number] #### [facility] [address] [place] [address] WBC corrected for nucl RBC Auto (Bld) [#/Vol] 10.2 E9/L Normal 4.0-11.0 [facility] Comment on above: Performed By: #### 2 [id number], [id number], [id number] #### [facility] [address] [place] [address] Discharge Instructionson Discharge Instructions [id number]#1.00CD:127 Normal [facility] Inpatient Clinical Summaryon 08-05-2020 Inpatient Clinical Summary [address] [address] Clinical Summary Person Information Name: MYA MYLES [place] Age: 30 Years : 1990 Sex: Female PCP: Chao Blackwell III, DO Marital Status: Single Race: White Ethnicity: Non- or Language: Azeri Visit Id: Visit Reason: Speciality: Acuity: 1 PP Enc Type: Inpatient Med Service: Obstetrics Arrival: 08/04/2020 06:59:23 Discharge: 08/05/2020 17:20:00 Dispo Type: Home (Routine DC) Address: [address] [place] [address] [address] [place] [id number] Provider Notes: Diagnosis: Depression during ; Obesity [...] Follow up: With: Address: When: Sukhdeep Schaffer [address] [place] [address] [facility] (1) Within 6 weeks Comments: Call Dr if fever>100.5 F, heavy bleeding Call for any problems. Nothing in the vagina for 6 weeks Type Location Start [facility] 09/15/2020 9:00 AM 09/15/2020 9:15 AM Confirmed Patient Education Information: ibuprofen 600 mg Tab Normal [facility] Inpatient Patient Summaryon 08-05-2020 Inpatient Patient Summary [address] [address] Patient Discharge Instructions PERSON INFORMATION [...] Follow up: With: Address: When: Sukhdeep [address], [facility] [address], [place] [address] Business (1) Within 6 weeks Comments: Call Dr if fever>100.5 F, heavy bleeding Call for any problems. Nothing in the vagina for 6 weeks In the event that this physician does not participate in your insurance network, please consult with your insurance company to find a nearby participating provider. Type Location Start [facility] 09/15/2020 9:00 AM 09/15/2020 9:15 AM Confirmed Comment: JUSTINO Burton VANESSA L, have received the attached patient education materials/instructio ns and have verbalized understanding. Patient Signature Date Clinican/Nurse Signature Date MEDICATION LIST New Medications [id number], [address], [place] [id number], [phone] ibuprofen (ibuprofen 600 mg Tab) 1 Tablets [...] younger th (more content not included)... Normal [facility] ABO/Rhon 08-04-2020 ABO/Rh Positive Invalid Interpretation Code [facility] Comment on above: Performed By: #### 1 [id number], [id number], [id number], [id number] ####[facility] [id number] [place] [address] ABO/Rh History Checkon 08-04 ABO/Rh History Check Verified Hx Blood Type Normal [facility] Comment on above: Performed By: #### 1 [id number], [id number], [id number], [id number] ####[facility] [id number] [place] [address] ABSCon 08-04-2020 ABSC Gel Interp Negative Normal [facility] Comment on above: Performed By: #### 1 [id number], [id number], [id number], [id number] ####[facility] [address] [place], [place] [address] [address] ID#on 08-04-2020 BBID# [id number] Invalid Interpretation Code [facility] Comment on above: Performed By: #### 1 [id number], [id number], [id number], [id number] ####[facility] [address] [place] [address] CBC w/Indiceson 08-04-2020 Erythrocyte distribution width (RBC) [Ratio] 14.8 % High 10.9-14.2 [facility] Comment on above: Performed By: #### 2 [id number] #### [facility] [address] [place] [address] Hematocrit (Bld) [Volume fraction] 31.7 % Low 34.0-46.0 [facility] Comment on above: Performed By: #### 2 285564 #### [facility] [address] [place] [address] Hemoglobin (Bld) [Mass/Vol] 10.2 g/dL Low 12.0-16.0 [facility] Comment on above: Performed By: #### 2 655547 #### [facility] [address] [place] [address] MCH (RBC) [Entitic mass] 25.6 pg Low 27.0-34.0 [facility] Comment on above: Performed By: #### 2 906678 #### [facility] [address] [place] [address] MCHC (RBC) [Mass/Vol] 32.1 g/dL Normal 31.4-36.0 [facility] Comment on above: Performed By: #### 2 910305 #### [facility] [address] [place] [address] MCV (RBC) [Entitic vol] 79.7 fL Low 80.0-100.0 [facility] Comment on above: Performed By: #### 2 432822 #### [facility] [address] [place] [address] Platelet mean volume (Bld) [Entitic vol] 8.3 fL Normal 6.4-10.8 [facility] Comment on above: Performed By: #### 2 619193 #### [facility] [address] [place] [address] Platelets (Bld) [#/Vol] 341.0 E9/L Normal 150.0-500.0 [facility] Comment on above: Performed By: #### 2 636078 #### [facility] [address] [place] [address] RBC (Bld) [#/Vol] 4.0 E12/L Low 4.3-5.9 [facility] Comment on above: Performed By: #### 2 858918 #### [facility] [address] [place] [address] WBC corrected for nucl RBC Auto (Bld) [#/Vol] 8.2 E9/L Normal 4.0-11.0 [facility] Comment on above: Performed By: #### 2 955689 #### [facility] [address] [place] [address] Consent for Procedure/Surger yon 08-04-2020 Consent for Procedure/Surgery [id number] 9#1.00CD:127 Normal [facility] Consent for Procedure/Surgery [id number] 3#1.00CD:127 Normal [facility] Consent for Procedure/Surgery [id number] 5#1.00CD:127 Normal [facility] Consent for Treatmenton 07-19 Consent for Treatment [id number] 2#1.00CD:127 Normal [facility] Consent for Treatment [id number] 9#1.00CD:127 Normal [facility] Delivery Summaryon Delivery Summary Patient: [...] Stable. Maternal condition: Stable. Funmilayo Escobedo MD [facility] Comment on above: Result Comment: Elec tronically Signed By: LAURA MACEDO, Funmilayo J\.br\Date and Time Signed: 08/04/20 15:29 EDT Discharge Instructionson Discharge Instructions [id number] 9#1.00CD:127 [facility] Help Me Grow Referralon 07-19 Help Me Grow Referral [id number] 4#1.00CD:127 [facility] Progress Note-Physicianon Progress Note-Physician Patient: MYA MYLES Age: 30 years Sex: Female : 1990 Associated Diagnoses: None Author: Kevin Haley Jr., DO Postoperative Information Post Operative Note: Day 2. Anesthetic utilized: Regional: Epidural. Health Status Allergies: Allergic Reactions (Selected) No Known Allergies Problem list: All Problems labor / Patient Care / Confirmed Ovarian cyst / SNOMED CT 320443970 / Confirmed Attention deficit hyperactivity disorder / SNOMED CT 8047247980 / Confirmed Obesity / ICD-9-CM 278.00 / Possible Obesity complicating , third trimester / SNOMED CT 4064574581 / Confirmed Depression during / SNOMED CT 5565923157 / Confirmed Insomnia / SNOMED CT 384192008 / Confirmed / SNOMED CT 062538427 / Confirmed Supervision of high risk in third trimester / SNOMED CT 08729776 / Confirmed Chronic fatigue syndrome / SNOMED CT 85589368 / Confirmed Resolved: / SNOMED CT 881180345 Resolved: / SNOMED CT 106652063 Canceled: Obesity complicating , first trimester / SNOMED CT 5346528946 Canceled: Obesity complicating , second trimester / SNOMED CT 6001052892 Canceled: Supervision of high risk in first trimester / SNOMED CT 06013249 Canceled: Supervision of high risk in second trimester / SNOMED CT 03513794 Physical Examination General: Alert and oriented, No acute distress. Neurologic: Normal sensory, Normal motor function, No focal deficits. Review / Management Result Review Condition: Stable. Assessment Anesthetic outcome No post-epidural complications noted.. Plan Transfer/ Discharge: Condition stable. Normal [facility] Comment on above: Result [...] / Confirmed Ovarian cyst / SNOMED CT 050210967 / Confirmed Attention deficit hyperactivity disorder / SNOMED CT 6892074422 / Confirmed Obesity / ICD-9-CM 278.00 / Possible Obesity complicating , third trimester / SNOMED CT 3420138762 / Confirmed Depression during / SNOMED CT 9592583311 / Confirmed Insomnia / SNOMED CT 810803389 / Confirmed / SNOMED CT 568957560 / Confirmed Supervision of high risk in third trimester / SNOMED CT 33862264 / Confirmed Chronic fatigue syndrome / SNOMED CT 08072225 / Confirmed Resolved: / SNOMED CT 035220435 Resolved: / SNOMED CT 326965970 Canceled: Obesity complicating , first trimester / SNOMED CT 1230444171 Canceled: Obesity complicating , second trimester / SNOMED CT 4167826806 Canceled: Supervision of high risk in first trimester / SNOMED CT 33778061 Canceled: Supervision of high risk in second trimester / SNOMED CT 92478763 Review of Systems Respiratory: Negative. Cardiovascular: Negative. [...] The PCEA was started at 0942. Normal [facility] Comment on above: Result Comment: Elec tronically Signed By: Kevin Haley Jr., DO.rosey\Date and Time Signed: 08/04/20 10:50 EDT UA With Cult Reflexon 2020 Bilirubin Ql (U) Negative Normal Negative [facility] Comment on above: Order Comment: Urina ry Catheter Insertion triggered Urinalysis With Culture Reflex order by discern. Performed By: #### 2 714135, 5491810, [id number] #### [facility] [address] [place] [address] Clarity (U) CLEAR Normal Clear [facility] Comment on above: Order Comment: Urina ry Catheter Insertion triggered Urinalysis With Culture Reflex order by discern. Performed By: #### 2 324016, 2515513, [id number] #### [facility] [address] [place] [address] Color (U) YELLOW Normal Yellow [facility] Comment on above: Order Comment: Urina ry Catheter Insertion triggered Urinalysis With Culture Reflex order by discern. Performed By: #### 2 435293, 4746634, [id number] #### [facility] [address] [place] [address] Crystals LM Ql (Urine sed) Present Normal [facility] Comment on above: Order Comment: Urina ry Catheter Insertion triggered Urinalysis With Culture Reflex order by discern. Performed By: #### 2 358449, 7128604, [id number] #### [facility] [address] [place] [address] Epithelial cells.squamous LM.HPF (Urine sed) [#/Area] 0-2 Normal 0-2 [facility] Comment on above: Order Comment: Urina ry Catheter Insertion triggered Urinalysis With Culture Reflex order by discern. Performed By: #### 2 184509, 6904756, [id number] #### [facility] [address] [place] [address] Glucose Test strip (U) [Mass/Vol] Negative Normal Negative [facility] Comment on above: Order Comment: Urina ry Catheter Insertion triggered Urinalysis With Culture Reflex order by discern. Performed By: #### 2 317335, 2261907, [id number] #### [facility] [address] [place] [address] Hemoglobin Ql (U) TRACE Abnormal Negative [facility] Comment on above: Order Comment: Urina ry Catheter Insertion triggered Urinalysis With Culture Reflex order by discern. Performed By: #### 2 268313, 1693862, [id number] #### [facility] [address] [place] [address] Ketones (U) [Mass/Vol] Negative Normal Negative [facility] Comment on above: Order Comment: Urina ry Catheter Insertion triggered Urinalysis With Culture Reflex order by discern. Performed By: #### 2 609755, 0304758, [id number] #### [facility] [address] [place] [address] [place].plasma/[place]. RBC (Bld) [Mass ratio] 0-3 Normal 0-3 [facility] Comment on above: Order Comment: Urina ry Catheter Insertion triggered Urinalysis With Culture Reflex order by discern. Performed By: #### 2 107733, 6332245, [id number] #### [facility] [address] [place] [address] Mucus Ql (Urine sed) TRACE Normal [facility] Comment on above: Order Comment: Urina ry Catheter Insertion triggered Urinalysis With Culture Reflex order by discern. Performed By: #### 2 679194, 1123594, [id number] #### [facility] [address] [place] [address] Nitrite Ql (U) Negative Normal Negative [facility] Comment on above: Order Comment: Urina ry Catheter Insertion triggered Urinalysis With Culture Reflex order by discern. Performed By: #### 2 025901, 2501349, [id number] #### [facility] [address] [place] [address] pH (U) 6.0 [pH] Invalid Interpretation Code 5.0-9.0 [facility] Comment on above: Order Comment: Urina ry Catheter Insertion triggered Urinalysis With Culture Reflex order by discern. Performed By: #### 2 477990, 5705045, [id number] #### [facility] [address] [place] [address] Protein (U) [Mass/Vol] Negative Normal Negative [facility] Comment on above: Order Comment: Urina ry Catheter Insertion triggered Urinalysis With Culture Reflex order by discern. Performed By: #### 2 681591, 5448633, [id number] #### [facility] [address] [place] [address] Specific gravity (U) [Rel density] 1.015 Invalid Interpretation Code 1.005-1.030 [facility] Comment on above: Order Comment: Urina ry Catheter Insertion triggered Urinalysis With Culture Reflex order by discern. Performed By: #### 2 188141, 2107836, [id number] #### [facility] [address] [place] [address] Type of Urine collection method Catheter Normal [facility] Comment on above: Order Comment: Urina ry Catheter Insertion triggered Urinalysis With Culture Reflex order by discern. Performed By: #### 2 982752, 6689461, [id number] #### [facility] [address] [place] [address] Urobilinogen Qn (U) 0.2 {Henny'U}/dL Normal 0.0-1.0 [facility] Comment on above: Order Comment: Urina ry Catheter Insertion triggered Urinalysis With Culture Reflex order by discern. Performed By: #### 2 287798, 8291676, [id number] #### [facility] [address] [place] [address] WBC Auto Ql (U) Negative Normal Negative [facility] Comment on above: Order Comment: Urina ry Catheter Insertion triggered Urinalysis With Culture Reflex order by discern. Performed By: #### 2 127100, 2087358, [id number] #### [facility] [address] [place] [address] WBC LM.HPF (Urine sed) [#/Area] 0-5 Normal 0-5 [facility] Comment on above: Order Comment: Urina ry Catheter Insertion triggered Urinalysis With Culture Reflex order by discern. Performed By: #### 2 596299, 7875092, [id number] #### [facility] [address] [place] [address] Vaccinationson 08-04-2020 Vaccinations [id number] 0#1.00CD:127 Normal [facility] Coding Summary.on 08-03-2020 Coding Summary. CD:[id number] Gh0bWw+PGhlYWQ+PE1FV PCtA70hmLAjjV3RM3sOM L1TXFHJOKXXXL7KSH2wn LC8QUntT9XftxJs DkndyXEjGP24XGq2JQQ2 jQnoYZunuY5dkGFzN6e6 QwYxQU01kC98YRrmTYDw CaM8CcBwvitjyYUw K7kvIkUowXYuPzg+PHRh YmxlIHdpZHRoPScxMDAl HuEktFqnDN0sCe1cKROp LWNvbGxhcHNlOiBj e5onRGNrCZmmHV3frOie K8AzsTP3VXNuj1j4Rp15 dHI+NNAbSEE9iIbjNZwt h246JyEgd0qqVNH0 rWCnTVraWTM2R15di6L1 OIIePCDiFUS1fXU3rE3m kVztveipL0ZsxSAtCpM0 ULU6wVRyfQ8usDlv yympaO7hNmw+F57GXP9U XUSWAY5AFbj4O4UqUbtz dHI+JH49OJPlUK42iSLn rQZvd5ubiKg2LzLy BOClUSK0qLxyAFart4Cy PDSsY07cpWLgk9N4LAWb aFofmFSfJyGncKU1xX0n ZFggehzfc0zvriuo Gzktv1lowp07bR65J09u JDutXKNsVRF6UQDlPMEh qQmohq7daY0qZe0+IDxj v8ehh0lurTt7AmIv NEPwzmEnwOfkSTN3p9Xe Qr26B0BspRmau3WwTzs4 dj67oVMol6P7kZQ9HMtg AHMewD7aIHxlXtU3 TALcOwBpsX12vIDxUGnx Fw7pyFpuwEyfCL0dZRNk caqrYXVdkF5jOSNrkUIl hPmuAN2lXILgywwf q526FiLdRZD4LEEsmQXm G6RrmA4oQgTvUDZrQWRo U7ZgqGPsRPkpP476WAzw LcJ7JFZzpnFhP9Jl WWRquAyuSbU5h6F4Xb1O o7IspyegEQW0ESnkIXB9 PjO6LbYnLiN1E6GjLny3 PAThrHlnSB3lR1Ga FSUjorsvgjsvmEP2TZYc GYLvgV76eSCkYNslZg5u d6X6b314TPJsKEJvuT30 Go5omArsOJFfcZYC mR1avxoeg3eddjsdZlHa ZPSpZBk8MPp4TGCkbFva FyYsKJQ3VfL5WZR4uBNt jF6xqPuctyqedK0c Oyc+Q76veR9vKHP2CXI3 xdzvTVGnkdDpQH94QE50 G1UcOxhzaYNvgVE+PGRp rdYnqAotVG7jJbMc n2bzj5ZeLEvlD6LvNQOx FFabKin1YPDwOMY2bNB2 jC0bSEZzRWixn4W2wBO0 U1ElchKvnv9cf5ni ARFjNLbwS16koKCjf0U6 ELBtsVX7MJCpeRmeCkCs wN57Baw+NTHivJhbv9Ff Fiqbu5qwq2lqmQb0 IjMwJSIgdmFsaWduPSJ0 h7MuYv11B85bPXgyQRLh FBIrWWOeOIYqzTgerr2t pN2nEv8+PGNvbCB3 lMN7fB2eRMHwLiW6QEem X582IxXinGQdYxgmu1du k8armLx0GmYxTDKmruAa fFnuIPT9u5OfSo02 W56lPIwzGTMtUMGaMCZd GKYfcPqixq2kuI6pKp8+ IZ4hr4fahq58wR16xGP+ ROJoHKB9uFqtHQwy JQXoiA2eDBopQiK4LXEe MfVxeV81rSZeCKfhGy2h tPoczLdyQW8eHUWxbynj c897ZyKup7dxFOJx kXBnXAihTUY4F03rv5Q2 YFYsLJMoVFZ2bED9aM4u bGlnbjogbGVmdDsgdmVy aGrhPAjwDWypM170 IHRvcDsnPlBhdGllbnQg FlLoYNd6I8PbMpx7ZXSg oHfqFF2crDDdSKucEs9w xCxuuQynQU6pCDFl plvjg842WfTrn1kxFFFf kGImSJeiTDB4J42vd8S5 YQGfWQPyGZV5dAI5mS4x bGlnbjogbGVmdDsg snClcBuuZIapGGvxL122 IHRvcDsnPkJpcnRoIERh sHX4SX43KT40rAGaf0E2 iAB5X5JmQXEremaa hxdunEC6MCJfWEUroV41 Ry1ldDarTf5cSKCsHOP7 NJGtcPPrD0XmyE5kAnEj OXPsIGLuZ0AiiGUy HSlxH352YYqxDdF8CMUk gsYqU8DoHKUdoXeyGrE7 c9Z2Uc8UD6S2AH84XF75 nYOcf3C7iFN7A1Qd YTOpleibbrqrrWJ2ZXOu RJKzrA18Qv4eeSrjVw1z HUGsQJS5OQWtcRVzU6Ub zA4pOoByPVAjHAMc X2VzjNLdDSubK688ANpt UpO1PWYcibPyZ1JnCLHm wZfuVjO6d8O0Wp3VMHt3 JM85MD60zEBnl0X5 gSX3R0FmOMXwqredkwpi nHA4BJDhUAFfkT69Nr4h lUcbIw8cLTIzBBW6VRSz iPCbQ6RuyD5cDuYg GFIfKVXqJ9YdyROqAUlz H434ULefUaN4COVcwsUr X4JlKRExjEwdJqI0s1D7 Tq8XDETzVY74RGI1 tXL6PE94IZ94H8WbRtlh dGFibGU+PHRhYmxlIHdp ZHRoPScxMDAlJyBzdHls VD0cBf3yOGQcHHJn oCessATqGvYzp2baBZXa EPkoLL1zfSjhN2DfgQH0 QIXiz0q7Ly16S94zX0Nv dXA+IZRneAU0tWT9 mX1xPdGfQtR4VTseD228 VfXxwTGcNdvye7nvt6gw cOe7YgN0WJBzrhEjbTyf BBR0r1BiXk47J50w IHdpZHRoPSIxNSUiIHZh lYztfl4dwU7qWq1+PGNv yFN3wPH7sA4eMrXtBpD8 AGfxZ891RdNneYWr Jufpk5kxo8ufmPk2XqNy EXRnzsBsvPtvTEZ1w8Eo Tb67B4MxyEpxe1AcAhi2 cu92iYQll2K3iTO9 S2EoJLPknxgerFVubSzn YJ5wMFCstexgNTNnoL6s RIJhT9w7ZaDsOcA9ORnf G0XbekX0NQOsaKCr QSycIFX9W83ji9Y2PSNq EWKwNZL2iWK7vM5jxRvv bjogbGVmdDsgdmVydGlj DOqyRUaaN614HOTr qTjyXMRzkJ8eAZFdfMWy cIlrVP5bAQTtbpceTpDL VkeTOo0lVCWIZvQNA5Rb TDwvdGQ+PHRkIHN0 wMwqREjySCRguQ1kAXJf M0s6WvQhStR9MKfbH6Mk DCQjjvfpGi54wR2fTvRi YdZ5UGcnN6PqkbE9 BZNezSYzBZmdEGF8U36p s5O0YXTzNORzQUO2qLM3 nP0wfTlmnxgnkRHkgUnp dmVydGljYWwtYWxp R168RYLsmNqiNsU5QtBu BhR4PTD9M2XmWxk3IQKx jDdaJR2wbKAaRQhsKk5y pXowbXcqUU3vUDQm qefuTHHwoO3oYAHqrVLd vLqjSS8sGIVojyted695 UvCeMZA6RBCxfANoJ8Qh xN1hMcHqGBSuNCIg F1RbkLWlTLjrX898JCno UkK6IMIhemDeO7VgLRHz fZhlEkF5d4I0Qn5qLXJE ZWFyczwvdGQ+PHRk OIJ4xRjxTVnoDLIuuH5m VALnB6k9UrGfHoY7DJis P4CkNGEyattiUw44qI0y HhYsOiD5DPniH0Jv shP4NTIsyUKiWIunJUP4 Z35oj8G9WADtNGWcWRE2 gME5wN3mbMnhmdxjsSOr dDsgdmVydGljYWwt ZPamO984FOMbqNxpUsEl bWFsZTwvdGQ+PHRkIHN0 rOgzWFapLFIraY9mHZIh C8t5CoNdVcF0SAys U4EeEASszicvFd45yE9i QfUqTzF7QHdeZ5FwuxI8 ZDXzzBArZKouRRI0C72b v2Y7RQMaGYClPDY8 eQN9mJ3oeUdzuqddoWVb dDsgdmVydGljYWwtYWxp S688NABezXtyDa8VOIFw aWFnZTwvdGQ+PC90 tf80L3LtQrekQar5YKQs CSN6tVG0pA8pERHeYYwi x5V7qUW0Z8UmcvWrvl1f n3wsNZYaUXsyE69t qMSej5P1KKPeeSW9EUKg eKylMoKwpN44Doy+PGNv fCyit6FyVzjgi1kyy6zd zAp3XzNdGGZrqnSq kYzsSRC8m5IpMh72G44b IHdpZHRoPSIzMCUiIHZh sAbfds7nzL4cKg1+PGNv nKD4hFR5kC9lCoVh WeN7RLkmP466ToFojQFw Zeexj8mko3dnsYi6CvEh YMRiioIhyHflGUG5z0Iy Dw58S7ZwcIshn8Pi Zbi8bf66pHXxg5X7nJE8 S4BtCCUwzulrdSAhcTzi ZL3yNKRcxkueNMYyaG7i RFEpX1o5LeEmEbV0 MCkfY5BvtoV7NZFcrAOl EEReaUVEsE5uugbrx9xf ythsGrHsUMEkEZr0BTc7 LWFsaWduOiBsZWZ0 DuZ3XOK5hGAfnZ7avRnu hrkiyM0mVka+KIb1p0lt kPBgND6wgPV3EJ59AR77 wVLyx1M5dJV3O4Ic VZNsnkyfkecboEG4EAKu CRZcqZ40Tt7qgEbwRd1k PHEyZDT9LEKksZPoC2Nt lA8zZjKqJCWpDDVy W0SkaDQnVPvhE586EEyf TkU4UOCtldPgH2GnLCRn bIqmQaN6p9U3Ar1TJV06 OU16KH05eRJni7D5 hJJ7U2WiKBUkxfiklhrb kFN1GTWfEDBkbZ38Ci6c bQstQx1fYRVnCFA9RHJf eBFfU6UgiN4iWnHw TNIpEXXlZ3JstPYzNIfq I639RCxkKaV3AHGgcyPj L0BlCVVkaTcgJzH1z6X4 Jy2CRw35ZK17WR42 dZHsn9B8fQG5Y1MnDEMa kvpmlrsmjCD5AEDkKPHd zX27Ts5faUvuSo5vJYOj AJZ4XLVydRTmF3Yp lK4pVhRwQPSiBCExB1Co fPHaTZxoO226HLsnAaV2 PGPoufNhQ8IyICGbdYcn MmX2h9A8Gl5FDUmi uii9A1BvKujjtOY+PC90 NXGiRW91mITeuEIly4tt hUe6XmWgCGTnUWL8yVer ATihq4IkMMNaU05n bGFw (more content not included)... Normal [facility] Ambulatory Clinical Summaryo 08-02-2020 Ambulatory Clinical Summary {[id number]-56-[id number]-[id number]- 09-9c-6a}[id number] [facility] Insurance Correspondenceon 0 08-02-2020 Insurance Correspondence [id number] #1.00CD:127 [facility] Insurance Correspondence Off iceon 08-02-2020 Insurance Correspondence Office [id number] 1#1.00CD:127 [facility] Insurance Correspondence Office [id number] 1#1.00CD:127 Normal [facility] Nursing Assessmenton 021 Nursing Assessment [id number] 4#1.00CD:127 Normal [facility] Obstetrics Office/Clinic Not jasmine 08-02-2020 [...] trimester) Ordered: Office Visit Level 4 Est 56248 TH 2. Obesity complicating , third trimester (O99.213: Obesity complicating , third trimester) Ordered: Office Visit Level 4 Est 99701 TH 3. Depression during (O99.340: Other mental disorders complicating , unspecified trimester) Ordered: Office Visit Level 4 Est 86948 TH 4. 38 weeks gestation of (Z3A.38: 38 weeks gestation of ) Ordered: Office Visit Level 4 Est 97107 TH Follow-up With When Contact Information Funmilayo ESCOBEDO MD In [address] [place] [address]- Additional Instructions: Problem List/Past Medical History Ongoing Attention deficit hyperactivity disorder Chronic fatigue syndrome Depression during Insomnia Obesity complicating , third trimester Ovarian cyst Supervision of high risk in third trimester Historical Medications Multivitamins, 1 tab(s), Oral, Daily Allergies No Known Allergies Social History Alcohol - Denies Alcohol Use, 11/21/2009 DENIES, 04/14/2020 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 2019 [employer] Normal [facility] Discharge Instructionson Discharge Instructions [id number] #1.00CD:127 Normal [facility] Inpatient Clinical Summaryon 07-31-2020 Inpatient Clinical Summary [address] [address] Clinical Summary Person Information Name: MYA MYLES Ifeoma/[facility] Age: 30 Years : 1990 Sex: Female PCP: Chao Blackwell III, DO Marital Status: Single Race: White Ethnicity: Non- or Language: Azeri Visit Id: Visit Reason: Speciality: Acuity: Obs Enc Type: OB Triage Med Service: Obstetrics Arrival: 07/30/2020 21:16:34 Discharge: 07/30/2020 22:58:00 Dispo Type: Home ([facility]) Address: [address] [place] [address] [address] [place] [id number] Provider Notes: Diagnosis: Problems Active Insomnia Chronic [...] Follow up: With: Address: When: [place] [address] Business (1) In 3 days [...] Type Location Start Finish State [facility] 08/02/2020 4:30 PM 08/02/2020 4:45 PM Confirmed [facility] 09/15/2020 9:00 AM 09/15/2020 9:15 AM Confirmed Patient Education Information: Normal [facility] Inpatient Patient Summaryon 07-31-2020 Inpatient Patient Summary [address] [address] Patient Discharge Instructions PERSON INFORMATION [...] When: Funmilayo ESCOBEDO [address] [place] [address] Business (1) In 3 days 08/02/2020 Comments: [...] nearby participating provider. Type Location Start Finish [facility] 08/02/2020 4:30 PM 08/02/2020 4:45 PM Confirmed [facility] 09/15/2020 9:00 AM 09/15/2020 9:15 AM [...] Leaflets: You may receive a survey from [employer] asking you to rate your care experience. Your feedback is important and will help us understand what we do well and how we can improve the quality of care we provide to you, your loved ones and our community. It?s an honor to serve you. Thank you for choosing [facility] Consent for Treatmenton 07-19 Consent for Treatment [id number] 0#1.00CD:127 [facility] Consent for Treatment [id number] 8#1.00CD:127 [facility] Insurance Correspondenceon 0 07-29-2020 Insurance Correspondence [id number] 41#1.00CD:127 [facility] Insurance Correspondence Off iceon 07-29-2020 Insurance Correspondence Office [id number] 5#1.00CD:127 [facility] Nursing Assessmenton 021 Nursing Assessment [id number] 1#1.00CD:127 [facility] Ambulatory Clinical Summaryo n 07-28-2020 Ambulatory Clinical Summary {[id number]}CD:[id number] [facility] Obstetrics Office/Clinic Not jasmine 07-28-2020 [...] trimester) Ordered: Office Visit Level 3 Est 49414 TH 2. Supervision of high risk in third trimester (O09.93: Supervision of high risk , unspecified, third trimester) Follow up in 1 wk. Ordered: Office Visit Level 3 Est 62787 TH 3. 38 weeks gestation of (Z3A.38: 38 weeks gestation of ) Ordered: Office Visit Level 3 Est 01963 TH Follow-up With When Contact Information [facility] In [address] [place] [address]- Additional Instructions: Problem List/Past Medical History Ongoing Attention deficit hyperactivity disorder Chronic fatigue syndrome Depression during Insomnia Obesity complicating , third trimester Ovarian cyst Supervision of high risk in third trimester Historical Medications Multivitamins, 1 tab(s), Oral, Daily Allergies No Known Allergies Social History Alcohol - Denies Alcohol Use, 11/21/2009 DENIES, 04/14/2020 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 ? 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 Rectal thermometer. ? [...] ? Consumer Product Safety Commission: www.cpsc.gov ? [employer]: www.healthychildren. org ? Safe [...] 01/17/2009 Document Revised: 01/17/2018 Document Reviewed: 12/25/2017 [employer] Patient Education ? 2019 [employer]. [facility] Coding Summary.on 07-27-2020 Coding Summary. CD:[id number] Gh0bWw+PGhlYWQ+PE1FV VWpN85ysUMszJ4YZ9cGQ V8PCCBAETLZMV4YVX8ak FT9CJobW6JcldFl DtkedORpVC16VJv5KIL8 iKsiVDigmK0kyWObP9d6 QqInDN41eP29HZauZNEt OaU6EdUljxjuxPOb C6waJnZfaSYgEth+PHRh YmxlIHdpZHRoPScxMDAl VmOwtCthFS9gQs5sNZQe LWNvbGxhcHNlOiBj e1ulDPWkDOzcPH3bdVyk K2LaeHW1ATRwf1r9Wf93 dHI+QQGdQGV5zDtxZYrr h040VaNmr5tqLWC1 dWEeAQdyFDD3D08fp4M1 KQGyMKDzGYD5zUJ1aK5x gTcthxmtB8YftCYnGsS8 MSO0dIGjcM1boKsn oseasB4rIxj+W23NAT8Q SGASUW1JMna4T6JxLebh dHI+RI31MUXjFQ65dRUt dOBsh6mgtWi9JwKr YQNcCPM2eBtgSPpzl7Ps BRJcF30clETdz7F9JDMv iPbceFJfPhKvlVH9xH6d ZBrkokqhy6dexxit Gtvfs6zmlv59kL74B42o GEbdYJGuLYS9UQAySCZr gUbvma9ngG2hEb6+IDxj f7nuj8jqjEc5JnIb UBXvrbCvuWioVTV1m8Dq Dp75V5OdtJeqb5OeKwd0 nz30nWEje8Z3nAL8QBxe NSBxpC5yYPbjTaN6 NMBjQfRqgB30hTUmJIfr Ro5jzZguhQvbHV5lXLGu xuwdGWPtyQ6wXQZxeJSk dBamVC6fEVQfqrch z851YkIoTYA9GJEbkXJq A5ZthU1fAwXsJGRyJBSz V8YkhMRoIXrxF506JIse ZtS3HQZqfyDiG5Gb TJBfkLwfFvJ1r6J0Vx3M d0CsambbPQR3HZkxCAF4 SlW6RsQgWwF6S9HaVyn4 DUPcdGywVB3sM0Ak YFEcoctggvlyoNT8ULPz CKBjqS89lPAhFAbaPb5y r1I6p201WDLzYKNawP18 Mh4cyOcbWTZcpMSX dH9hdrlxx7mxabkjWuTj CGOrNLk6GBu0NAItoJgh SbHgZLV6LuB8PWV5uGMy hQ8xlLcvbzdwkS8n Oyc+V87unM6rVJC3BAE9 tnhxTPWwzeVdHE36MZ41 Y2ZzSwjxzUWuzSD+PGRp ztGulJxlBC2eXjXx v3oes0ScVJgmK5GmRZPy EOudBpp7YGAeHAW5wOK0 dE4pJSPrPSqii9E3xYV7 S2WzpeWvte2tq7qh ENEyIEuqM89daHAfb2X5 DHKtoTR5JGPuqEywFsFx cT10Gsl+MFEmkKabz2Ze Kxztc9zdz3anoTo0 IjMwJSIgdmFsaWduPSJ0 b6FwMf97V85xOXhbEVUb IJYxLNBuDOMgsVikmt7s nL4mYr8+PGNvbCB3 xDU1xQ9mRKLuKcU6YLpq V317SgFfbYRqXprxi7wf z6fcfRh1QyMmDASirpLe mLboJTR4k8YoAk54 C31xDOmcLCSuOGNrCVZc WWYmzSrtll5sdP7lPa6+ AX5jt6ulmr72vY34xLZ+ WWGgEIM4rCrmXVsi CTWrfS4mGAdmIuK1RGJt SnVypH96vJOaDOdbPw6d fUaeyZkrXM8tRBIggitf j120FkRgs5ehESJu yMFfKUkgCTF5N25mb9S2 DTIcELOwAVH3mOB6hW8j bGlnbjogbGVmdDsgdmVy tDrjGGclTMcfN919 IHRvcDsnPlBhdGllbnQg RwRqVSx3I9GxVcf0UDBk qFztQZ2thVDbLTqwKz4g cKapeIvdWL9xEJNn zovms298WxLew7wuMUIn vURwRGpfWHX6P31px2I6 JHVoEAHqBGX2mPV9mN4v bGlnbjogbGVmdDsg wpZpxJvyRUqqIOynJ390 IHRvcDsnPkJpcnRoIERh qQY7XD72IU60aWMwj2A9 mAJ0Y4EtAAMaxgtu fgoeeDP4HZGqEUPbvL39 Xm6idLxxQr7jZSBtVOE6 APVehLMxT3DoeU8uGlRo SFOvTIGyO3AniKSv LNsoX276QHkeVzF8YTJj zxNaW4NkDKLeoMxbAlZ2 t1Q9Xw7FF1H3ZH33GS16 lBDbx8G7nRK3R7Tg IRIvksphqkhgeZM4JVQy XSBmnP00He1acJsgXg8v QISnRHU7JASiwMMdC7Se fZ6zXqMtBJCbZWZl O5LukOKzESegA447KVau JtV6LXRihuUyA9WtGEUw hWdyTvT5h0S2Mq2TCWc2 XH92VH62jFZyb6V8 dKS0P2MbDNGpjquhdhts xHB9TPWnJTTxrS47Eo3j gUelWp1uCFSfVTK6WXYd uTOiQ0QaaS1nReHl YWGhHYEjM6KgnPItAQhb Z293KPqeIuD4PVZuviIw Q4RiSMFpcQvaXdJ1z7Q7 My8EWFAaMC89QGS1 zCX2YY44QP85X9LmLmmq dGFibGU+PHRhYmxlIHdp ZHRoPScxMDAlJyBzdHls EG4pEa7yBWXkLIDr eAslsJBoHfFii7ntMCFx KDrdCW1wrTjxZ7EgjTC1 YKCzr7u5Ss63P03pD0Sk dXA+HGCrqLF2yBV1 zM8kWmPvApX6OIyzU355 McOysAZzWnzzu4fch7vh zMz2MlG8APMhmxEdgPpr TUS9j5FnRs15C15h IHdpZHRoPSIxNSUiIHZh uCjpwz9yeK7cAb4+PGNv cAY0hFT8iW6xVmNaIrR2 ABzsT101VuHnoGYv Epiwc3ofq6jghAv2VpNy XAAnhqZfwOhyPGM2l1Ch No28Z2QiaWwbn3NhIqe3 yy15iFQny4X4cQA0 O2RlEFTjnzlafZXcqIii FL1aJBGkndmuTTZhaO3h ZQWhO8w8ZyMyAnS3YJob W3YsbpE0UKLmdKHp QTczGNN3P08iu9M1EEVq AVNtCYO8zVY4jK4hrVxb bjogbGVmdDsgdmVydGlj SLloSRlzN714OLQu iRsbKWTifI1jTEUcfEDm lGbeHK0cVIQailbrNsEB KtxVWo6fVCOVMoXBK9Zk TDwvdGQ+PHRkIHN0 xOosYOrsPAJchW7oTQKj Z5i5QcUoQuA4UGabF2Fm MQJvdyomNs34eK5vTzBg QsN6UNzzL8EruzS1 IAOheEXnOWgxABO3V19f a5J5NJGkHKQpEMK0bFU0 gF3hxRmxrupvcAEfqScg dmVydGljYWwtYWxp Y040WNGzaTotPaQ8ZoVk AuV2CLV0C4AaLjf3IPDh vYzpIR3caSRjTXqeAu3a vTfpvXooXL4hTRHe njdySRMjfH4fDZCorGIs aVauLY5iYCTogfiwt052 BcXzNPR5YXRggIKrU7Bf uH8hVoWxPJPdLSIc G0EytJKfQFclA801GAvp OeU5JRTdpdHuO9FxPSDh yZeqRnC8y0K8Gg4qTCEZ ZWFyczwvdGQ+PHRk MDO1rBbyHUgiTTTldQ8t WZUtH6s9ShDlHtD3CEbd Y6RfVFDzcnofEj59eB4w OcErLbA1APjcK2Ge lvK5QMBejIKnMYryJVJ0 L07wd3P3ONYsDCUvHZI4 nXX6fI2ogGjedmpcnTCd dDsgdmVydGljYWwt ADeyD908BFVxsPnnKpKo bWFsZTwvdGQ+PHRkIHN0 lKbxNQbbYPUedM0fJNYa M5a4UiRcQrL3NNpj I8HeJUZaytdfAu07cB0s NhSmCiO7IXgqB3MnyqQ9 RTScgEPkGZyrMXX2Z10l p1M2GICnLTOaRBY1 yJH7bG6upEabaqvniITh dDsgdmVydGljYWwtYWxp U540NDXyeLzjQp4NRQVa aWFnZTwvdGQ+PC90 rg00H6WwJghpEpg2HTDb RVR3kFP0dP1nLRJgXJta e4R7xVG1Y2CbfdWoim1t w8lhXUWsTIunP62t jZPlx0A0VUVzrQU5PLAg rKnpOiHsgU75Oka+PGNv rWwep2FcAypfm9qvg8we yIz8KqVvLSRkjpZv bRwlUZB1n1WjVd03K60h IHdpZHRoPSIzMCUiIHZh dMumut1eaI5xRz1+PGNv iMR6iOA2pI7qFlIt MpD1XQkqO221EwJzjVVv Wfxam5hnb6rwtGf0PtZg KEJlyzCupNefTHU8c9Cq Mq49A7FodQyjo2Vd Xma1wv36aWLbd8Z0pFE8 F9EcYCSiclhyqYVufTmj NX0aNJVwcdwsDSGywJ6t POIbH0v3BgIhAxO0 DCaeS9CxgnC3GDYckYOm YFInfXBWeN1xmdith5lb yxadNzMsJTIyEUr4FEg5 LWFsaWduOiBsZWZ0 UfS8GLA7hSQeqS2wpIma asynvO4sYfs+TOs1f7sv pKZsYH5ubJV9HH53ZR11 iKOhj3S5bVS6J5Ym BKCfmbaprymyvHK2YNKf MVFjnN87Rl0ofXnlUf0t SVOrCJF6CTEqzWIjX0Ed pX5yAbLqZQGwELEw L7SobXIuSQpaQ081ICvw RxK4OLScvnAoS3DcQEOm hYcvOzX0v5I6Rl9OMI07 HB77TW52fODmc7B9 wPQ4D0KpTXBejofcociz jRM4AJLtKLMdeS08Ib5g yJlxNj2rGDHkZEG8OSMr jJHwM5EtsM0nBySn VTFtPGYgA5XnrRUhKBah U420GTyxMqG2ELTnvwKb N0CsGQVsdGagQbL6n9F4 Ch2CLn40FE09MC22 vPShe4B6qLI8E8OcUQLh jzwbleijiAA4XMMgALDx lC31Gx6lgOwjFt7lCZVz RBO2MIHgqNDbU1Rc wU6gAxBwNSJiLNLiO4Vw iODcVPwvZ135EUqcRhY9 RWIeyqGhM7TzUNZeqVdx FqZ4r5D5He0JFBxw zpo1M7KsXabqtZF+PC90 UOOgGH12mLMptCRsm3gf nKy9KiJcBZOkOLA7tGuh XVcea9SfSVOpU16y bGFw (more content not included)... [facility] Consent for Treatmenton Consent for Treatment [id number] #1.00CD:127 [facility] Discharge Instructionson Discharge Instructions [id number] 75#1.00CD:127 [facility] Comment on above: Other Comment: incco rrect title Discharge Instructions [id number] 67#1.00CD:127 [facility] Inpatient Clinical Summaryon 07-26-2020 Inpatient Clinical Summary [address] [address] Clinical Summary Person Information Name: MYLESMYA Ifeoma/[facility] Age: 30 Years : 1990 Sex: Female PCP: Chao Blackwell III, DO Marital Status: Single Race: White Ethnicity: Non- or Language: Azeri Visit Id: Visit Reason: CONTRACTIONS Speciality: Acuity: Enc Type: OB Triage Med Service: Obstetrics Arrival: 07/26/2020 14:59:40 Discharge: 07/26/2020 16:40:00 Dispo Type: Home ([facility]) Address: [address] [place] [address] [address] [place] [id number] Provider Notes: Diagnosis: Problems Active Insomnia Chronic [...] Follow up: With: Address: When: [place] [address] [employer] (1) Within 1 week Comments: Call for any problems. Call for fever > 100.5 F Return for contractions closer, longer, and harder Return for decreased movement Return if ruptured membranes or vaginal bleeding Type Location Start Finish State [facility] 07/27/2020 2:45 PM 07/27/2020 3:00 PM Confirmed [facility] 08/02/2020 4:30 PM 08/02/2020 4:45 PM Confirmed WH BI[facility]EN[facility] 09/15/2020 9:00 AM 09/15/2020 9:15 AM Confirmed Patient Education Information: Normal [facility] Inpatient Patient Summaryon 07-26-2020 Inpatient Patient Summary [address] [address] Patient Discharge Instructions PERSON INFORMATION [...] Follow up: With: Address: When: [place] [address] [employer] (0) Within 1 week Comments: Call for any problems. Call for fever > 100.5 F Return for contractions closer, longer, and harder Return for decreased movement Return if ruptured membranes or vaginal bleeding In the event that this physician does not participate in your insurance network, please consult with your insurance company to find a nearby participating provider. Type Location Start Finish State ELIZABETH Saeid 07/27/2020 2:45 PM 07/27/2020 3:00 PM Confirmed SOLeila Saeid 08/02/2020 4:30 PM 08/02/2020 4:45 PM [...] to serve you. Thank you for choosing [facility] Normal [facility] UA With Cult Reflexon 2020 Bacteria LM Ql (Urine sed) TRACE Normal Trace [facility] Comment on above: Performed By: #### 2 767586, [id number], [id number] #### [facility] [address] [place] [address] Bilirubin Ql (U) Negative Normal Negative [facility] Comment on above: Performed By: #### 2 730373, 3394537, [id number] #### [facility] [address] [place] [address] Clarity (U) CLEAR Normal Clear [facility] Comment on above: Performed By: #### 2 900952, 6690344, [id number] #### [facility] [address] [place] [address] Color (U) YELLOW Normal Yellow [facility] Comment on above: Performed By: #### 2 192727, 5757514, [id number] #### [facility] [address] [place] [address] Epithelial cells.squamous LM.HPF (Urine sed) [#/Area] 5-8 Normal 0-2 [facility] Comment on above: Performed By: #### 2 018657, 5008479, [id number] #### [facility] [address] [place] [address] Glucose Test strip (U) [Mass/Vol] Negative Normal Negative [facility] Comment on above: Performed By: #### 2 154062, 4983351, [id number] #### [facility] [address] [place] [address] Hemoglobin Ql (U) TRACE Abnormal Negative [facility] Comment on above: Performed By: #### 2 937059, 7967855, [id number] #### [facility] [address] [place] [address] Ketones (U) [Mass/Vol] TRACE Abnormal Negative [facility] Comment on above: Performed By: #### 2 308477, 4676751, [id number] #### [facility] [address] [place] [address] [place].plasma/[place]. RBC (Bld) [Mass ratio] 0-3 Normal 0-3 [facility] Comment on above: Performed By: #### 2 201750, 9916926, [id number] #### [facility] [address] [place] [address] Nitrite Ql (U) Negative Normal Negative [facility] Comment on above: Performed By: #### 2 346507, 2908888, [id number] #### [facility] [address] [place] [address] pH (U) 6.0 [pH] Invalid Interpretation Code 5.0-9.0 [facility] Comment on above: Performed By: #### 2 029455, 5591934, [id number] #### [facility] [address] [place] [address] Protein (U) [Mass/Vol] Negative Normal Negative [facility] Comment on above: Performed By: #### 2 720989, 7428463, [id number] #### [facility] [address] [place] [address] Specific gravity (U) [Rel density] 1.020 Invalid Interpretation Code 1.005-1.030 [facility] Comment on above: Performed By: #### 2 030244, 9103731, [id number] #### [facility] [address] [place] [address] Type of Urine collection method Clean Catch Normal [facility] Comment on above: Performed By: #### 2 649028, 4819303, [id number] #### [facility] [address] [place] [address] Urobilinogen Qn (U) 0.2 {Henny'U}/dL Normal 0.0-1.0 [facility] Comment on above: Performed By: #### 2 105665, 4301328, [id number] #### [facility] [address] [place] [address] WBC Auto Ql (U) TRACE Abnormal Negative [facility] Comment on above: Performed By: #### 2 527528, 7754036, [id number] #### [facility] [address] [place] [address] WBC LM.HPF (Urine sed) [#/Area] 0-5 Normal 0-5 [facility] Comment on above: Performed By: #### 2 487984, 7047127, [id number] #### [facility] [address] [place] [address] Yeast LM Ql (Urine sed) TRACE Normal F [facility] Comment on above: Performed By: #### 2 918287, 2238970, [id number] #### [facility] [address] [place] [address] Consenton 07-22-2020 Consent [id number] #1.00CD:127 Normal [facility] Consent for Procedure/Surger yon 07-22-2020 Consent for Procedure/Surgery [id number] #1.00CD:127 Normal [facility] US Follow Upon US Follow [...] Vertex Amniotic Fluid Volume Normal Normal [facility] Ambulatory Clinical Summaryo n 07-21-2020 Ambulatory Clinical Summary {[id number]}CD:[id number] Normal [facility] Ambulatory Clinical Summary {[id number]}CD:655790 Normal [facility] Obstetrics Office/Clinic Not jasmine 07-21-2020 [...] trimester) Ordered: Office Visit Level 4 Est 35934 2. Obesity complicating , third trimester (O99.213: Obesity complicating , third trimester) Ordered: Office Visit Level 4 Est 72683 3. Depression during (O99.340: Other mental disorders complicating , unspecified trimester) Ordered: Office Visit Level 4 Est 25316 4. 37 weeks gestation of (Z3A.37: 37 weeks gestation of ) Ordered: Office Visit Level 4 Est 25568 Orders: metronidazole, 500 mg = 1 tab(s), Oral, q12hr, X 7 day(s), # 14 tab(s), Refills(s) 0, Pharmacy: [facility][id number], 158, cm, 07/07/20 20:05:00 EDT, Height/Length Dosing, 88.3, kg, 05/27/21 16:41:00 EDT, Weight Dosing Follow-up With When Contact Information Funmilayo ESCOBEDO MD In [address] [place] [address]- Additional Instructions: Problem List/Past Medical [...] Protein Urine Dipstick: Negative (07/21/20 16:41:00) Normal [facility] Comment on above: Result [...] 05/13/2008 Document Revised: 07/07/2019 Document Reviewed: 07/07/2019 [employer] Patient Education ? 2019 [employer] [facility] Provider Letteron 07-21-2020 Provider Letter July 21, 2020 To Whom It May Concern, Mya Myles is scheduled to be induced on 08/04/20. [facility] [address] [facility] Ambulatory Clinical Summaryo n 07-14-2020 Ambulatory Clinical Summary {[id number]}CD:080683 [facility] Obstetrics Office/Clinic Not jasmine 07-14-2020 [...] Age: 41 weeks Wt: 3232 g Hospital: [facility] Labor: -- Child's Name: -- Baby's [...] Test Q0114 Office Visit Level 4 Est 87699 NC 2. Obesity complicating , third trimester (O99.213: Obesity complicating , third trimester) Ordered: Fern Test Q0114 Office Visit Level 4 Est 82504 NC 3. Depression during (O99.340: Other mental disorders complicating , unspecified trimester) Ordered: Fern Test Q0114 Office Visit Level 4 Est 94926 NC 4. 36 weeks gestation of (Z3A.36: 36 weeks gestation of ) Ordered: Fern Test Q0114 Office Visit Level 4 Est 29512 NC 5. Bacterial vaginosis (N76.0: Acute vaginitis) Ordered: Fern Test Q0114 Office Visit Level 4 Est 11169 NC Orders: metronidazole, 500 mg = 1 tab(s), Oral, q12hr, X 7 day(s), # 14 tab(s), Refills(s) 0, Pharmacy: [facility] #[id number], 158, cm, 07/07/20 20:05:00 EDT, Height/Length Dosing, 88.3, kg, 07/14/20 16:41:00 EDT, Weight Dosing Follow-up With When Contact Information Funmilayo ESCOBEDO MD In 1 week [address] [place] [address]- Additional Instructions: Funmilayo ESCOBEDO MD In 1 week [address] [place] [address]- Additional Instructions: Problem List/Past Medical [...] type 2: (more content not included)... Normal [facility] Comment on above: Result [...] Reviewed: 07/07/2019 [employer] Patient Education ? 2019 [employer] [facility] Coding Summary.on 07-12-2020 Coding Summary. CD:[id number]:[id number] Gh0bWw+PGhlYWQ+PE1FV IMdG23eoRGdiF0FC1gIQ V5ATYSDTIDLXM1SDB2rb HU8VUgjS2TxjvPn LtxkoTCmCE52HJl0REV7 oRdkVMgvvR8pbFWoG7g9 VdPiJJ36sO05YDfzYYEw NrB7WcDetdgtwJKg U3lbEwAddNBgYaf+PHRh YmxlIHdpZHRoPScxMDAl DaCaeZbyQN3fBm0tWLXa LWNvbGxhcHNlOiBj c9bcFYZhICdlPW6wiFwx W9IeuUS5VKVvw3w0Mt11 dHI+DMIpEFB7aGnhNWng r196XrKnd0oxNGH6 rUIeYQdgUYL7D65ne2I4 JPQcNWMeBPI2pIR5rH8f zQjajraiD3NjjXQaLjG8 RGA8mNIylI9zvXmr gltmuV2nBbc+Z75JJV0K QFDRNM2FIld3S7JvKijq dHI+PR55NTEyBW00lQIj nYZzg5enuGg1AtQs JOEvDFN8cLneLAcsm4Rd XOJcK01fjWCge8S1QMZl zSgmcGOhFrNizWJ2cS3a FSmlzcgvv4aqwxxs Otffi3plef12oO07E88q SHwmEANgOVX1FQYmUHWi oDpjrt5pgF5tEm4+IDxj k5ftg1wyvXm7ZiNy NISjwlNqyJzdRNH6l9Xh Ip59D0FulFzka4IaLum3 wt27gHDdn3X7wWQ3WUdc LCCouE1uRXcyEiY1 ESSsEnBnfK63mZHrNNis Il0xhGjhaXlkYL1fCEOe gefmKEVlyN6iOBCffWWb uEmbLU2hYVPqradu r407PvElTRF7WIYerDCi N6BmvE6gKbIoEHIhLBIt I4QniPOhFKgiR362VMio QrJ2BZHoueThZ0An JURvfWubIjK2p6S5Wf7K w9WrxlclTKK3CAuiQSY5 JuB4AsQoRlG3L3RvLwz0 WBFcyLqrAI5gY5Rf CADypebsmclqdAD0GLNg QVLkiG01fARsEDaxQz2c r2C0e779GBKwCVHkaR80 Wi1epCykELSkoKDL bO2bwffys7gwiiqkBcZp UMJoBDa0OWe2YODyvHug VsIaIAL3YeG0ETV7mJZv oE5wwScquprfuW4q Oyc+H13spA2pNAD9ATX2 cckxNHAgugZbSZ06ZH99 N9YrDwltqTMmlLA+PGRp guUazIuwXW6pCyBm a8qvd6GzYXmzH1KgBMWq DCzbSjt5MYYwROE4lNF0 wV4aZYDlUForx2E4cGE5 Q3HvclXzie3mf9kr RGOfXRtbC79uoWAes7K8 FGVujLF1JJVndWrkZjNe oB96Qxe+MSSzbTjxt2By Prjfs5mqd7mffQw9 IjMwJSIgdmFsaWduPSJ0 c1OpLa36Q03hCEepEYRt ILDsOXIfUOJuiLbpib9l vH4bWy1+PGNvbCB3 pUY9gM1pGGCrUsS7WZhs U370VyTraGOtGiiln3kq q0vgoVh0LaByZJGtgiHr bDebEKT6j2GzIy78 Z31uBUrfXNPrYYTiDCMa WYSjsWqbud0lrG7pRq5+ EM4eb2fuga91rB07dDJ+ KEPgSQE3pVjsCYwz XCEonN8lRPimFtR3AOCb WtYpkN06aCHkUXgxSh0o fUppgDipSF5fROSfnbjz h923YtYhr6wcCIMj iRYjYRxcLGV9D52wg1A1 LXVcUJIfRUY2jBN3dR1u bGlnbjogbGVmdDsgdmVy yCbeYLidHYjsY243 IHRvcDsnPlBhdGllbnQg PqSvGCq2C1KuFmv7RBVg sDisSZ3llOWuFFneGg9n vCiwpIkySH9wPWSb abihx387AfOmd3wtKUXd hGCeUJlgWOH3P82cu3Q9 UXZjKZFjFJP9eEI2sM1p bGlnbjogbGVmdDsg rdIimCbbFWnnPKiaJ374 IHRvcDsnPkJpcnRoIERh zBC5IH07JM00cWJqy7W8 yBE4H1ObTRRqmwwh ezrsxGL8PGGoNIFnnF32 Ny9wkAqpRz0cVOZkKPE1 QAMfoACvE2KvqT4oCyZr FAQwUTNmP0KinXBz PBqdD546SYqmFoM6DPQe yhScC0VvAFFvjStaBdE3 p0Z8Ft8PW9H6GL74XM07 lUTru5W1mEE5W5Vb CSMpikafupoqgWA7ORVp ZUBemN43Ms3gyLqiUv3j IZVrFUI8ZSIawXEkE1Vi nM9lJhKfXMCfXVYj B5QxiCExXPztV965POcj CfY8XRBwzbNiL2UjWYSy dVopSoT5e6Q9Bd1CTOc9 FJ94ID78kOKyi3F5 cAM6M8XoBGTbjoqrzxlh yBR3AXGfEWLzwG46Kl7r qXxvBa9vKTDnFGQ7VOAa pJSaH2ByqG8zFoHw ZXJeNXQmN8IqmLNrOVcj A022KEhbYmQ7HFIrgrJb O0AbVBGbhVxnQtR1r3F4 Kq9VSEWkAR04VZJ2 fJX5GV92QD26P7FyMyyk dGFibGU+PHRhYmxlIHdp ZHRoPScxMDAlJyBzdHls IX8bWp3fAXDlMOHi fZudaNXaPxWjy4gkPUNt FAhqKD8gwScuC3IgfWP5 PRSua8p1Gm33R01zI2Nm dXA+OKWyuQQ2wIV5 uJ8zIgPoRkQ0ACawJ882 GcGnhPYtPcinw3hed1yg gEx4OmR9ENRodxCroBjp ORP0n9QwKg57M72a IHdpZHRoPSIxNSUiIHZh rXgqxu7pmN4bKx9+PGNv zOP6eJO2uU4qYsSsAeI7 JMqdS428IlBowUHy Owsay8wpg6hymUl0LpGa EQXiwbKayXemCQY5r9Zc Ei48O5HyeAjpz4UgKbs9 px45kFAio6C7jKH2 K1DcCWJgbdqolWGacWjx ZW8wSGJskapjCVFzbB9m OPEuO0o9XiJqZyT6FKez H9YxorE1BJNxrNWo ODcaEAH8Z72ha9L5TYFv SEVfIMW0rTF2jY3bgSsz bjogbGVmdDsgdmVydGlj OUudDIgsN991ZCZn tZziLIDbrM6kSBGshAAt lEcoKL6bWGOdjiokHxWN ZtzBQv4vWFBLGcQTU5Cx TDwvdGQ+PHRkIHN0 wAnjBAioIXMiwT3dYVEy E2i7BbLuMgI0DAodJ3Cr BTTwwbffJh07nZ1vFjYk MkI0CQuxM9EaseB9 YJGesIDgTXhhXQN5I33v j0L4PYRiLKUlMGA9nMM2 iW0ifNawdatmhAMorWrw dmVydGljYWwtYWxp W357SHFzcMfqBgK5JzWy UyW2YJN8O7NtPke9FSMi aEbnLL6mfHRgZDohLw6m xWdotMukCK9gDJYz jcgdMEMibT4mGUHilPOu dUkpUW6fZXJalajvd746 ZjAbQVK1OYJyyTLkT6Nh yM3gTkHuILYhXJEr W7NcyFXiNAhuD597VPii EaA9FEZqecOlC5JkYKVa gCgwNyR3w7S5If9jCSGW ZWFyczwvdGQ+PHRk WMZ5yUtgZYwzMBSeyC6w BXOgG9w3CaVdIfE9RRax S7KgFUGthyvbKd51lD0c AeQbPrN6CSwwS8Ez blP3BUIzfPKpVKwkNGU6 X02us2V1ANQmXWFwZQP1 yAM5xY3tuLqklwgjjSQw dDsgdmVydGljYWwt BEjpU025MKFppWjkIoZp bWFsZTwvdGQ+PHRkIHN0 lWvnCLrvQPBscI9nVUJq G4y2QxAgSlV5UAaj E8FwCUYbupnzWp71mA8z TyAhCoP0XFweC6OyrsN4 IXBoxYYlWOjoTUU7T19e o6C4WBVxYQKeNUC4 nIY4gN7urKxiexkjbAGo dDsgdmVydGljYWwtYWxp O688PSXkjSknZf8FGAQv aWFnZTwvdGQ+PC90 wb74I6YpUrlbZkp8NAIe YAW8zBC8zF6jVZEdMBhl y5J3uXV5E5OpqcBccl7c q2mtTRFiVJjsQ67v bEPxi1Y4ZVKtwNY5ICBi dJhoAuStmD30Tve+PGNv uMznl5ExTpopj9jga4ab sZq2YvDyIWOqiwKv uGjfHDA5t1CjCo72S51s IHdpZHRoPSIzMCUiIHZh eEjamd7pwN7hXj8+PGNv xFC8iXM8iV7pCqXn UlK4SWyyZ902CoUyeDUy Xfnde0ver2ubfNp1GiCx DSTqxaVgqGhpERE3r4Xa Fa79J7WikKxex4Up Sjl6sf68zRKsz4Y3mHX2 P1GwYNXpvywknFVnwBnu QE9eESOadkwnVBEmxM1k KSIbY7i0EfWyPyS5 TTkyP8OqldD2LFAmkEKa LBSwdZVYkH9zswtgg1nu qoqmYmUcNVDmSUa9MOt7 LWFsaWduOiBsZWZ0 TmX4AHF0iYDhmI5mmRos xvapvA0zDuq+NHm7d2oq iOHnFC7mdYG5IL88HL22 zSGxv3V9qDS1T1Go EZOrjpvbgijzgOU7NIUh RFBcuX64Bw2adAgzXp7h JSLmQBU2LKCjoAWsV7Yx aC6tLzUmYDExPPXf U3QdjHJdOPiiA355DMid AdF1HCTlzyTqE4RqJZAn xVapDuO2b7N0Fx3SZO37 XN37AY50cRBct5I2 sVY8Q9FrNEQlwffpbmzx jKW8VGWgRGVcmR58Gh3r qOpyVg1yNKIpZNH0EPDn sZZsH1HexR3lZvAt TAMlFODcC8WxnFJaURvo H926ARngRrO6HCGevgYt L3CcHIIywUzaAuE6m8S1 Xh5JVm04GZ29EE74 cUUaa8D9lMF5I4LsKKCw baxzfjwxiER6UYHyYRHz zL73Mr5rhImzCm1mBRAw AOO7MAIswRJtE9Mp lN7pLlMoGZYwXGSjG0Vc hNNpOIfsR022QOseQgD3 ZJTkieCaF8MtEHVanNdd DvX1f1V4Ju5LTAad hoz0T6IkNgmywTD+PC90 OHXwNC10xFGqrOUff6yf xWq9YpKuDYLcMFW8kBbr FAyvx3WlHGViZ64c bGFw (more content not included)... Normal [facility] Insurance Correspondenceon 0 07-12-2020 Insurance Correspondence [id number] 8#1.00CD:127 Normal [facility] Insurance Correspondence Off iceon 07-12-2020 Insurance Correspondence Office [id number] 1#1.00CD:127 Normal [facility] Nursing Assessmenton Nursing Assessment [id number] 8#1.00CD:127 Normal [facility] Group B Strep by PCRon 07-09 Group B Strep colonization by PCR Negative Normal Negative [facility] Comment on above: Order Comment: vagin al swab Performed By: #### 2 [id number], [id number] #### [facility] [address] [place] [address] ABO/Rhon 07-08-2020 ABO/Rh Positive Invalid Interpretation Code [facility] Comment on above: Performed By: #### 1 [id number], [id number] #### [facility] [address] [place] [address] ABO/Rh History Checkon 07-08 ABO/Rh History Check Verified Hx Blood Type Normal [facility] Comment on above: Performed By: #### 1 [id number], [id number] ####[facility] [address] [place] [address] ABSCon 07-08-2020 ABSC Gel Interp Negative Normal [facility] Comment on above: Performed By: #### 1 [id number], [id number], [id number], [id number] ####[facility] [address] [place] [address] BUNon 07-08-2020 Urea nitrogen [Mass/Vol] 7 mg/dL Normal - [facility] Comment on above: Performed By: #### 2 [id number], [id number], [id number] #### [facility] [address] [place] [address] Blood Bank ID#on 07-08-2020 BBID# [id number] Invalid Interpretation Code [facility] Comment on above: Performed By: #### 1 [id number], [id number], [id number], [id number] ####[facility] [address] [place] [address] CBC w/Indiceson 07-08-2020 Erythrocyte distribution width (RBC) [Ratio] 13.6 % Normal 10.9-14.2 [facility] Comment on above: Performed By: #### 2 [id number], [id number], [id number] #### [facility] [address] [place] [address] Hematocrit (Bld) [Volume fraction] 28.9 % Low 34.0-46.0 [facility] Comment on above: Performed By: #### 2 [id number], [id number], [id number] #### [facility] [address] [place] [address] Hemoglobin (Bld) [Mass/Vol] 9.7 g/dL Low 12.0-16.0 [facility] Comment on above: Performed By: #### 2 [id number], [id number], [id number] #### [facility] [address] [place] [address] MCH (RBC) [Entitic mass] 27.4 pg Normal 27.0-34.0 [facility] Comment on above: Performed By: #### 2 456237, 8402071, [id number] #### [facility] [address] [place] [address] MCHC (RBC) [Mass/Vol] 33.5 g/dL Normal 31.4-36.0 [facility] Comment on above: Performed By: #### 2 258172, 4190353, [id number] #### [facility] [address] [place] [address] MCV (RBC) [Entitic vol] 81.7 fL Normal 80.0-100.0 [facility] Comment on above: Performed By: #### 2 956364, 2636935, [id number] #### [facility] [address] [place] [address] Platelet mean volume (Bld) [Entitic vol] 7.9 fL Normal 6.4-10.8 [facility] Comment on above: Performed By: #### 2 726545, 6473093, [id number] #### [facility] [address] [place] [address] Platelets (Bld) [#/Vol] 320.0 E9/L Normal 150.0-500.0 [facility] Comment on above: Performed By: #### 2 783734, 9436227, [id number] #### [facility] [address] [place] [address] RBC (Bld) [#/Vol] 3.5 E12/L Low 4.3-5.9 [facility] Comment on above: Performed By: #### 2 977512, 6180499, [id number] #### [facility] [address] [place] [address] WBC corrected for nucl RBC Auto (Bld) [#/Vol] 9.9 E9/L Normal 4.0-11.0 [facility] Comment on above: Performed By: #### 2 477323, 3286788, [id number] #### [facility] [address] [place] [address] Creatinineon 07-08-2020 Creatinine [Mass/Vol] 0.4 mg/dL Low 0.5-1.3 [facility] Comment on above: Performed By: #### 2 661624, 1403366, [id number] #### [facility] [address] [place] [address] Discharge Instructionson Discharge Instructions [id number] 210 [id number] 8#1.00CD:127 Normal [facility] FSPon 07-08-2020 Fibrin+Fibrinogen fragments (S) [Mass/Vol] <10 Normal <10 [facility] Comment on above: Performed By: #### 2 318084, 5269706, [id number] #### [facility] [address] [place] [address] Stainon 07-08-2020 FMHV 0 mL Invalid Interpretation Code [facility] Comment on above: Performed By: #### 2 753498, 5281860, [id number] #### [facility] [address] [id number] Negative Control Negative Normal [facility] Comment on above: Performed By: #### 2 605832, 1746570, [id number] #### [facility] [address] [place] [address] Fibrinogenon 07-08-2020 Fibrinogen Coag (PPP) [Mass/Vol] 451 mg/dL High 200-393 [facility] Comment on above: Performed By: #### 2 878969, 0231421, [id number] #### [facility] [address] [place] [address] Hep Func Panelon 07-08-2020 Bilirubin.indirect [Mass or moles/Vol] UTC Abnormal 0.1-0.9 [facility] Comment on above: Result Comment: Resu lt verified by Discern Rule. Performed result UTC (Unable to Calculate) was sent as an Alpha code due the inability to calculate a valid numeric value. Performed By: #### 2 201242, 2886269, [id number] #### [facility] [address] [place] [address] Albumin [Mass/Vol] 2.6 g/dL Low 3.3-5.0 [facility] Comment on above: Performed By: #### 2 423368, 1883612, [id number] #### [facility] [address] [place] [address] Albumin/Globulin (S) [Mass conc ratio] 0.8 Low 1.1-2.2 [facility] Comment on above: Performed By: #### 2 541617, 2272319, [id number] #### [facility] [address] [place] [address] ALP [Catalytic activity/Vol] 108 Int._Unit/L High 21-98 [facility] Comment on above: Performed By: #### 2 626104, 0482817, [id number] #### [facility] [address] [place] [address] ALT No additional P-5'-P [Catalytic activity/Vol] 13 Int._Unit/L Normal 6-46 [facility] Comment on above: Performed By: #### 2 282983, 8080576, [id number] #### [facility] [address] [place] [address] AST [Catalytic activity/Vol] 22 Int._Unit/L Normal 5-43 [facility] Comment on above: Performed By: #### 2 114688, 4619968, [id number] #### [facility] [address] [place] [address] Bilirubin [Mass/Vol] 0.4 mg/dL Normal 0.0-1.1 [facility] Comment on above: Performed By: #### 2 383480, 7973984, [id number] #### [facility] [address] [place] [address] Bilirubin.direct [Mass/Vol] mg/dL Normal 0.1-0.4 [facility] Comment on above: Performed By: #### 2 278923, 0179419, [id number] #### [facility] [address] [place] [address] Globulin (S) [Mass/Vol] 3.4 g/dL Normal 1.4-4.0 [facility] Comment on above: Performed By: #### 2 445081, 2919748, [id number] #### [facility] [address] [place] [address] Protein [Mass/Vol] 6.0 g/dL Normal 6.0-7.8 [facility] Comment on above: Performed By: #### 2 355655, 6900447, [id number] #### [facility] [address] [place] [address] Inpatient Clinical Summaryon 07-08-2020 Inpatient Clinical Summary [address] [address] Clinical Summary Person Information Name: MYA MYLES Ifeoma/[facility] Age: 30 Years : 1990 Sex: Female PCP: Chao Blackwell III, DO Marital Status: Single Race: White Ethnicity: Non- or Language: Azeri Visit Id: Visit Reason: Speciality: Acuity: Obs Enc Type: OB Triage Med Service: Obstetrics Arrival: 07/07/2020 19:39:51 Discharge: 07/08/2020 21:22:00 Dispo Type: Home ([facility]) Address: [address] [place] [address] [address] [place] [id number] Provider Notes: Diagnosis: Problems Active Obesity complicating [...] Follow up: With: Address: When: Funmilayo ESCOBEDO [address] [place] [address] [phone] [facility] () In 3 days 07/11/2020 Comments: Call Dr. Kramer office Saturday to see if she wants to see you sooner. If not keep appointment. Call for any problems. Call for severe abdominal pain Call physician for heavy vaginal bleeding (more content not included)... Normal [facility] Inpatient Patient Summaryon 07-08-2020 Inpatient Patient Summary [address] [id number] Patient Discharge Instructions PERSON INFORMATION Name: MYA [...] Follow up: With: Address: When: Funmilayo ESCOBEDO [address] [place] [address] [facility] () In 3 days 07/11/2020 [...] a nearby participating provider. Type Location Start [facility] 07/14/2020 4:30 PM 07/14/2020 4:45 PM Confirmed [facility] Ultrasound [facility] 07/21/2020 4:00 PM 07/21/2020 4:45 PM Confirmed [facility] SOV [facility] 07/21/2020 4:30 PM 07/21/2020 4:45 PM Confirmed [facility] SOV [place] 07/27/2020 2:45 PM 07/27/2020 3:00 PM Confirmed [facility] SOV [place] 08/02/2020 4:30 PM 08/02/2020 4:45 PM Confirmed WH BIENVENIDO [place] 09/15/2020 9:00 AM 09/15/2020 9:30 AM Confirmed [...] (38.9? C) or higher. Document Released: 05/03/2009 [employer]? Patient Information ?2009 [employer]. Labor and Information normally lasts 39?41 weeks. [...] or tightening. (more content not included)... Normal [facility] Lyteson 07-08-2020 Anion gap [Moles/Vol] 9 mmol/L Normal -16 [facility] Comment on above: Performed By: #### 2 936651, 1001081, [id number] #### [facility] [address] [place] [address] Chloride [Moles/Vol] 108 mmol/L Normal 101-111 [facility] Comment on above: Performed By: #### 2 187921, 1277045, [id number] #### [facility] [address] [place] [address] CO2 [Moles/Vol] 21 mmol/L Normal 21-31 [facility] Comment on above: Performed By: #### 2 926226, 4292966, [id number] #### [facility] [address] [place] [address] Potassium [Moles/Vol] 3.4 mmol/L Low 3.5-5.3 [facility] Comment on above: Performed By: #### 2 181264, 3780132, [id number] #### [facility] [address] [place] [address] Sodium [Moles/Vol] 135 mmol/L Normal 135-145 [facility] Comment on above: Performed By: #### 2 484107, 4737562, [id number] #### [facility] [address] [place] [address] PT & PTTon 07-08-2020 aPTT Coag (PPP) [Time] 25.4 second(s) Normal 25.1-36.5 [facility] Comment on above: Result Comment: Hepa rin therapeutic range (represented by Anti-Factor Xa activity of 0.2 - 0.4 U/mL) corresponds to PTT of 56.6 - 109.0 sec. Performed By: #### 2 917741, 8184999, [id number] #### [facility] [address] [place] [address] INR Coag (PPP) [Relative time] 1.0 {INR} Invalid Interpretation Code [facility] Comment on above: Result Comment: INR results are specifically intended to assess patients stabilized on long-term Anticoagulation therapy suggested INR?s ?Less Intensive Anticoagulation? 2.0 ? 3.0 Conventional Range 3.0 ? 4.5 Performed By: #### 2 367087, 7430922, [id number] #### [facility] [address] [place] [address] PT Coag (PPP) [Time] 12.2 second(s) Normal 10.2-12.9 [facility] Comment on above: Performed By: #### 2 002343, 0668753, [id number] #### [facility] [address] [place] [address] Uric Acidon 07-08-2020 Urate [Mass/Vol] 2.7 mg/dL Normal 2.2-7.4 [facility] Comment on above: Performed By: #### 2 808694, 9925011, [id number] #### [facility] [address] [place] [address] eGFRon 07-08-2020 GFR/1.73 sq M.predicted among blacks MDRD (S/P/Bld) [Vol rate/Area] mL/min/{1.73_m2} Normal >=59 [facility] Comment on above: Order Comment: Order Added by Discern Expert. Result Comment: eGFR is race adjusted. AA=. Performed By: #### 2 491118, 2729140, [id number] #### [facility] [address] [place] [address] GFR/1.73 sq M.predicted among non-blacks MDRD (S/P/Bld) [Vol rate/Area] mL/min/{1.73_m2} Normal >=59 [facility] Comment on above: Order Comment: Order Added by Discern Expert. Result Comment: Air Technician ramesh kidney disease could be indicated at eGFR's of less than 60 mL/min/1.73m2. Kidney failure is indicated at less than 15 mL/min/1.73m2. Performed By: #### 2 441533, 8884110, [id number] #### [facility] [address] [place] [address] AmniSureon 07-07-2020 PAMG-1 Protein Negative Normal Negative [facility] Comment on above: Performed By: #### 2 138969, 8529634, [id number] #### [facility] [address] [place] [address] PAMG-1 Protein Internal Control Positive Normal Positive [facility] Comment on above: Performed By: #### 2 807100, 4180145, [id number] #### [facility] [address] [place] [address] Consent for Treatmenton 06-19 Consent for Treatment [id number] 05 [id number] 3#1.00CD:127 Normal [facility] Consent for Treatment [id number] 05 [id number] 9#1.00CD:127 Normal [facility] FFNon 07-07-2020 Fibronectin. Ql (Vag fld) Negative Normal [facility] Comment on above: Result [...] the antibody-antigen reaction. Performed By: #### 2 584044, 6754976, [id number] #### [facility] [address] [place] [address] UA With Cult Reflexon 2020 Bacteria LM Ql (Urine sed) 1+ /HPF Abnormal Trace [facility] Comment on above: Performed By: #### 2 168779, 6998833, [id number] #### [facility] [address] [place] [address] Bilirubin Ql (U) Negative Normal Negative [facility] Comment on above: Performed By: #### 2 516747, 3469667, [id number] #### [facility] [address] [place] [address] Clarity (U) CLEAR Normal Clear [facility] Comment on above: Performed By: #### 2 796900, 8301094, [id number] #### [facility] [address] [place] [address] Color (U) YELLOW Normal Yellow [facility] Comment on above: Performed By: #### 2 530251, 1674519, [id number] #### [facility] [address] [place] [address] Epithelial cells.squamous LM.HPF (Urine sed) [#/Area] /[HPF] Normal 0-2 [facility] Comment on above: Performed By: #### 2 368557, 7276607, [id number] #### [facility] [address] [id number] Glucose Test strip (U) [Mass/Vol] Negative Normal Negative [facility] Comment on above: Performed By: #### 2 136240, 5619392, [id number] #### [facility] [address] [address]36[address] Hemoglobin Ql (U) 2+ Abnormal Negative [facility] Comment on above: Performed By: #### 2 954802, 5501159, [id number] #### [facility] [address] [place] [address] Ketones (U) [Mass/Vol] TRACE Abnormal Negative [facility] Comment on above: Performed By: #### 2 795526, 6978968, [id number] #### [facility] [address] [place] [address] [place].plasma/[place]. RBC (Bld) [Mass ratio] >30 Abnormal 0-3 [facility] Comment on above: Performed By: #### 2 514132, 1318095, [id number] #### [facility] [address] [place] [address] Mucus Ql (Urine sed) TRACE Normal [facility] Comment on above: Performed By: #### 2 483857, 7782929, [id number] #### [facility] [address] [place] [address] Nitrite Ql (U) Negative Normal Negative [facility] Comment on above: Performed By: #### 2 751639, 9037416, [id number] #### [facility] [address] [place] [address] pH (U) 5.5 [pH] Invalid Interpretation Code 5.0-9.0 [facility] Comment on above: Performed By: #### 2 276556, 2684522, 848327295 #### [facility] [address] [place] [address] Protein (U) [Mass/Vol] Negative Normal Negative [facility] Comment on above: Performed By: #### 2 641211, 0563929, [id number] #### [facility] [address] [place] [address] Specific gravity (U) [Rel density] 1.025 Invalid Interpretation Code 1.005-1.030 [facility] Comment on above: Performed By: #### 2 318323, 3600005, [id number] #### [facility] [address] [place] [address] Type of Urine collection method Clean Catch Normal [facility] Comment on above: Performed By: #### 2 307235, 3022854, 597647400 #### [facility] [address] [place] [address] Urobilinogen Qn (U) 0.2 {Henny'U}/dL Normal 0.0-1.0 [facility] Comment on above: Performed By: #### 2 206589, 3915328, 848801159 #### [facility] [address] [place] [address] WBC Auto Ql (U) Negative Normal Negative [facility] Comment on above: Performed By: #### 2 497150, 8960137, [id number] #### [facility] [address] [place] [address] WBC LM.HPF (Urine sed) [#/Area] 0-5 Normal 0-5 [facility] Comment on above: Performed By: #### 2 071879, 5523525, [id number] #### [facility] [address] [place] [address] Ambulatory Clinical Summaryo n 07-06-2020 Ambulatory Clinical Summary {[id number]}CD:218420 Normal [facility] Obstetrics Office/Clinic Not jasmine 07-06-2020 [...] Stable. Ordered: Office Visit Level 3 Est 90966 TH 2. Obesity complicating , third trimester (O99.213: Obesity complicating , third trimester) Doing well managing weight gain. Ordered: Office Visit Level 3 Est 50545 TH 3. Supervision of high risk in third trimester (O09.93: Supervision of high risk , unspecified, third trimester) Follow up in 2 weeks for appt and growth US. PTL precautions until 37 wks. Ordered: Office Visit Level 3 Est 39536 4. 34 weeks gestation of (Z3A.34: 34 weeks gestation of ) Ordered: Office Visit Level 3 Est 19404 TH Follow-up With When Contact Information [facility] In 2 weeks [address] [place] [address]- Additional Instructions: Problem List/Past Medical History Ongoing [...] Protein Urine Dipstick: Negative (07/06/20 14:59:00) Normal [facility] Comment on above: Result [...] Document Reviewed: 07/23/2008 [employer]? Patient Information ?2013 [employer]. [facility] Follow Upon Follow Up Exam Date/Time: [...] Signed by: Yousif Toribio M.D. Transcribed by: U Technologist: ADEN Technical Comments CLIFFORD 08/11/20 CLIFFORD Obtained CLIFFORD by US GA 33w 0d History 3 Para 2 Transabdominal Ultrasound Performed Placenta Location posterior Placenta Grade 1 2 Positioning Vertex Amniotic Fluid Volume Normal Normal [facility] Consenton 06-24-2020 Consent [id number] #1.00CD:127 Normal [facility] Ambulatory Clinical Summaryo n 06-23-2020 Ambulatory Clinical Summary {[id number]}CD:682267 Normal [facility] Ambulatory Clinical Summary {[id number] [id number]}CD:434410 Normal [facility] Obstetrics Office/Clinic Not jasmine 06-23-2020 [...] trimester) Ordered: Office Visit Level 4 Est 70849 NC 2. Obesity complicating , third trimester (O99.213: Obesity complicating , third trimester) Ordered: Office Visit Level 4 Est 65594 NC 3. Depression during (O99.340: Other mental disorders complicating , unspecified trimester) Ordered: Office Visit Level 4 Est 32325 NC 4. 33 weeks gestation of (Z3A.33: 33 weeks gestation of ) Ordered: Office Visit Level 4 Est 23299 [place] Encounter for immunization (Z23: Encounter for immunization) Ordered: tetanus/diphtheria/p ertussis, acel (Tdap), 0.5 mL, IntraMuscular, Once, Stop date 06/23/20 16:00:00 EDT, Routine, Start date 06/23/20 16:00:00 EDT EACH ADD'L Funding Coordinator Admin Component 23749 EACH ADD'L Funding Coordinator Admin Component 56314 FIRST VACCINE Funding Coordinator Admin Charge 45710 Orders: famotidine, 20 mg = 1 tab(s), Oral, BID, # 60 tab(s), Refills(s) 2, Pharmacy: [id number], 157, cm, 06/23/20 15:10:00 EDT, Height/Length Dosing, 86.7, kg, 06/23/20 15:10:00 EDT, Weight Dosing Follow-up With When Contact Information Funmilayo ESCOBEDO MD In 2 weeks [address] [place] [address]- Additional Instructions: Problem List/Past Medical [...] Protein Urine Dipstick: Negative (06/23/20 15:09:00) Normal [facility] Comment on above: Result [...] keep your urine pale yellow. ? Take mkhb-qxc-scnwztt and prescription medicines only as told by [...] 02/04/2006 Document Revised: 05/25/2019 Document Reviewed: 05/09/2017 [employer] Patient Education ? 2020 [employer] First Stage of Labor Labor is [...] monitor strap (more content not included)... Normal [facility] Coding Summary.on 06-12-2020 Coding Summary. CD:[id number] Gh0bWw+PGhlYWQ+PE1FV HFaY31xbVLbxY0DE2iWX K9HDWOTGKHIGK4MPI9ki PZ5CQgjT8HirhNn UynscGJzZT95KHx6TIS2 hQmtGZnyaF3tjDAuD3f9 BrExKU47jV52LPcnHIRw PzB1SjDoaccvsIHv V2wlKzLloGZlIdh+PHRh YmxlIHdpZHRoPScxMDAl EbDclFcyXS2dKw1bBIFa LWNvbGxhcHNlOiBj j1auCUBzIKsoOH4hsSrb P6JmtIW7EPFlf9y9My33 dHI+BBKmJCB8pLmcBKcs j361UjXys2hgYRE9 yMAuJEaxERI4S90us8N9 OOMsBIHwRLS3cMH4hP1l oYlceknaR9ElwYMaAhS2 ZHV7eDDnwH8bgNnp prgbbC2yZst+C62WZG6F PRZEZR1QWpu5P2TmGgun dHI+YB33AFUhES69aFTy rOPpc6vpeVb4VuZc IPBeVOA5sLkoGPxzh1Lq AFFbH86cpLUpp3W3CSBs zOhivXHvBvRjcAX3tI2z WHlzfjicg2gszcta Pbgvt1qwnl12iW40D48d NFteLCUhIIU0VNUkHSSa vRkvwr6fvA3tQl3+IDxj p4zrs4wqlLv2AsXg ZVJkeiIysJliKAG7v4Re Dz06P8AjbZuyh8ZwFfw2 ve27gFKbs5S2rXY8XKtm CCSkxW8vWIhfYdJ4 KRJwMcCbqT29gRGwUUds Nn4szXqisKrfPE5yYEVg eihqLJXvcP6tAKOzrERg dNbsVS9uDGIripuf h383ByCyBVH9SGAimDPy B7QquA2sSmTzOAGxEECu I2FfxZTzLNewP194NCmk MnW9OQUrvfQuV6Iu BVPmkOtmNhE2t3W6Eg4G d2MyvbxgOMK0ZDdpAFT9 GgH8CeXoVkZ7P8UeWgc4 UVWgtMfgKK3dL1Xh NDGnprjwlfbtmIL0IZBh YTNuwS09zCGdZIopYq1a w3F4x273SNSuYWYkaB20 Td3ubJwwIRTpcJOZ qG0ceaqjf2obgxmzBfPf IVNdQGq5WNs0OLKviYey YrKaKRT8IxI2FWK8fXDs mQ0vcQnqnrtsuY4n Oyc+M66ylG9bMMJ8VWI7 dmdoCVRlvjIqLI35WL83 Y0WgGbztfEJciRM+PGRp xjBgcYhsDB5xQoOa p9yqw0CsSFzkA6XgJUIx MLqkCww6ANXsJAO7hYP6 qM9uOBHcKRyhi7U0vOX3 Y5RyfiAzni5nr2yl WORsYRauN88vjFRwu6C7 CKPkrVB3FMQdrYcpNfNn fL46Fpb+OTZkuOszu3Ra Hrgzr8ekp6meyAg6 IjMwJSIgdmFsaWduPSJ0 f2UfJk35A99mZJmcJPYh UIOzVTNuKUYrjTrvgc8g rZ9tKq4+PGNvbCB3 iYQ2uS7vFOXzUgF8SArn L571IsZfySFnOfzlu5iv g1dhkQy6GlUaQNMvbzNx qHtqWGX5i7RbGp11 B43jIAzzKLRfFUUzEANg RRNchKhufv2xlP7lEa9+ NI4dt2lxrw97jH49ePL+ MCZaXXS5eKuvOJhx GSIpoC5oOAjwIlR3UUMs HsUakO04vDQiKErtRe7b yWvpqRuqRS8oKKOghpel k350IjBri3ubBSFy kAWbREanQHM4I14bl8P7 PWFmNRUwPQO5nOJ9oN7j bGlnbjogbGVmdDsgdmVy qDifLJveXUonL068 IHRvcDsnPlBhdGllbnQg MvCpHJo3U8RrScf5SZVw kCofIP3odKWnVRjoAt4w bMjgaAzxNO8dVAOv arhqr153RwEoz7zaZZUg yGZzAEklVPI5S91ln1J2 QBMdNRKmHGN8xPM5wJ9g bGlnbjogbGVmdDsg ntDtnXgdRAfaYIlhE593 IHRvcDsnPkJpcnRoIERh vUP1JF53GO31aKPnt2A3 cUP3P3CrHBIwwnje ezxdzPW1PDUjAFOaxE46 Yo2wtAttXz6pYJTmRHB1 QEGqcPMhY7BjbQ1kGsGh DUZvPBRoJ5DceHKu PTlmP134BJttIlJ4CYRc afYeT9VbANYhbBrfAgB2 j4M2Iy8OY5N0NW04SE38 gVGbi0U2mZU0H1Yb ZLLtvfyqaobmzTT9FRFo UJIqnF20Pp0opZdeHg8g NEPuWEM6BRSeiZBkU0Aw jZ7kFmOqKCWyJYRp D4OjhIOwNVbjH983EEkv PrV1ZVNgxtFkG9NvYIXm aLbjRgS4v3T8Cj4HJIb8 JG76GB16uFHcu4O4 lKN8L9ZmGXCottvdemex zND5FQThZNMpnX79Mm1d sQeiOm9iNNJaKXI0OIDy vSDrN7OqqP6oMwVd OKBgKLAnF2CcsNNfJKmq Y347ILqqKtJ4CODtbdFn Z4EbNAZhrFyuYkQ5p0K1 Ga5FPGLyKE51GHF8 rLL5VC58UA64L9KlFllh dGFibGU+PHRhYmxlIHdp ZHRoPScxMDAlJyBzdHls AQ2uNd8mHUKwQZGj oLnhwKVtWpXyr5orFZIe OSclUX5ltVsnL2ExrPF1 DSZyu7m1Xr90X36uO3Jh dXA+UFPaiCF3oUI2 gR7dNhPmIwM6WGdzU052 EyNanWHrShdrt7rej5qn dRw1NvN5NYJbctQfsRyr ADH2v4HsVz87W55e IHdpZHRoPSIxNSUiIHZh zYgmnk8qhX6oSz7+PGNv lYB5mYG9hG2wPfUuFhT1 MCofC628TlQniNMe Sqnfr1dbm9ylkAe7JfZb NGSnwiEuzBaeFKN1q2Am Bd22R1KerKgsx2JsMie8 qx76aLYgw2S8jOY0 Q0QgWRJcfopifXUjeSww ZN8bANKhofgpMVRodL7o KOKgZ6j1SgSkWiQ2HQbm L8UoorP6HIKcrQQr UQkuDJE0Q75ff9Q0RTHy CQBoNPN7mNW1dZ2caUxt bjogbGVmdDsgdmVydGlj OOkjVOqkF918HDZf zHvvCNZvtU0xCLBdaREg fYfmGX9qTWQlscpwNrLR VfqOXp1kEHSWPfQDG7Jx TDwvdGQ+PHRkIHN0 kRyjBItsCVMdqR5hSFQx R4t6QfSwFjT7MCukX3Vi MBItdujiOg55dW3nMmIz BhS7LEfbW9MgryF7 ZDQwjTHlIDyeWUR7M34o s0R1NUNlOEXcSGY4wAS3 rM1pqNrfuwjylCThxBrw dmVydGljYWwtYWxp I690HBLqaPvmSmV4GbZc QsQ7FNB1U2RfFmf6NBEh pPrfJZ4ttWYkFNrkUp8n nWozwLwoFK8mMJVy unacQBQpnT5kINUnsEDj lTzoPH5pHOYcyrpgn470 UbYgMHL9GURcxGBpE2Cj cR4vBpJfRBMuTUDu N9TisQGvPMelB590JPwj DbN7RBPnrxWaT8ZfHUQq aRmvUgR7b7H4Am1sJDTV ZWFyczwvdGQ+PHRk LII2nFpsWBacXLFfkH7h BYAnF4w5LvCyAaZ5EPpo Z2EnRDVtxuojRl64fJ7m GgMjMsI5YLyrI1Li wpC8ZHVdlKDtWDplIXQ6 W82fn6C2AISiEISdCTW1 yZH7sO7cvKgpwfexjVRw dDsgdmVydGljYWwt ZTcyI806UIJmtXqcVvRm bWFsZTwvdGQ+PHRkIHN0 gOzcHGemMKWemM1vCAOo P8i4PiHtBvC0FXsh F2QzPWKlgakiQw49kB1t CvIwQxE7YUvrL7DepjK6 SAWzcNErLMzlVGX4G54d j4T3APGfYMWvFII4 zDB8xM1liUhwpwyehJYs dDsgdmVydGljYWwtYWxp T552VRRwiFbxFe94cCXm yEgoqlH7N0NySmko dHI+GD01BJDuLN82sVKp jTKmn4mjaAr7SePtCLTt PIE9wLmuANqcb7FbCXQc I10vqLRny1T9BVXk hVpfxZIfGvBnaFK9xU7t LCwxohkyg1ldlfbeQilo c4uzyg17yD47T56kVJdp ZHRoPSIzMCUiIHZh yMclrw5orF1mYr5+PGNv sTD2cGJ4oH3xToIkXfB4 WSenO740AmFjyEWdWhmm z9eqy6unnPk2CxPv AXQrcaOqcXfgEUL2j2Yf Zt49X24jDRsiGYTkEJEs GUMrNSIwmActxx9cpH4u Ii8+UN9ht2dsqy29 kX40yHY+KGOgKOV0bZmp BCobGMJdjR1lWMwrYsW2 LPTvVvUbzX11yBVtXNcc Xy7ouDujaXnpIF7g DMPcyukrp348TvBfg1ou AOLzySPaZGrmKKI0X87h c3Z0XXFcHPAyHCI5iEC4 qR7ilLcqdursxHLk dDsgdmVydGljYWwtYWxp U989TYGljGkxRuNttZKz X2aiytOUGT9zXmuynRK+ KZZtFUR0bUowUHrw BKQuuB7cNATzA1b0MeQk XtQ0RPkiO6KrykF1YQGi bJThTLBbaNADmU5nuhgs m5ykcbndSeGlXGEy TPk0KDn2YDFghVdjFbWe EHC5UvS3QKW7nDCbmC6i rJwfsdtolI6lPfd+RklO OjwvdGQ+PHRkIHN0 uTizNQgbPBRwzF9kQXGe U5t9OwJxPdR8KXoyW8Vu itH7NKUkbZXnALMtkCYV oW2ssifli1wnniuw ObBoTOFcDAr1RNs3BDHy qYiiJqAgPTV6TaT6NNO5 nPAqxI2vzRvyecbpgN7i Oyc+TVJOOjwvdGQ+ OTGcJGB7xYcfXJacHTDb hW1tDVPaT4q5VsXkBzP9 JSryM3KiyjN9BZZgwHRe UZFqjECEnF3hmypu d3mygyuiPdDyKVBkDKs4 LZt9OHCkxKmkJpHmEMQ6 YjF3RUQ0oKMwjY7okNau kwqlfH5sWev+UGF5 NSG2YV17GI18Z1IpCjwo dGFibGU+PHRhYmxlIHdp ZHRoPScxMDAlJyBzdHls IF1uCe6sKBCsIIKq bGxh (more content not included)... Normal [facility] Coding Summary.on 06-09-2020 Coding Summary. CD:[id number] Gh0bWw+PGhlYWQ+PE1FV LBjO09wmGXkxT5LB4jFA F9KFQBYYOONXM1ZCI0oz PB4KIrgK4JruzYs PmjqlLJhEQ65WBr2PIO3 jQfwWZqkqB1xcZNtH8j9 SzHtUU80fE81ABrvZMRq XjW7PpEopmnuxXUc H5qhZwAtlEYqMnf+PHRh YmxlIHdpZHRoPScxMDAl LeDmnZkyJO0iAw2sOJYp LWNvbGxhcHNlOiBj s6ooTREdIWwcWC4axQtx T2IxyKA8XDYkd8n9Tq56 dHI+EOKdEKM9lVtoHLrz s706HaWaj8obMDK9 xQYyCDxdQXD9C36nm6C9 SHPyOXWzDRN3sWH9yR8b wPwxbkasQ6MprUVxPpP5 LKT2wOBizO9xeWjy rsfkvI9pLdk+A84CNZ6I KWQQIQ9NZla7Q1CjEeav dHI+SY41XJHoVC80xIOa dWNnt1sxcFz8UcHz ROZgBQE2uSifUKnmz8Lj GYQrS33tyDAax2M0TJSd eEztrWVvWzLevZI4mT1u BEsrryhev2vzkqhh Ajrik6ralw83vX50T59r ASamJLBaTVO4WLUnSWCy dQxdsu7uvB6mHp3+IDxj p6inb6agyWt3YaQa DRStetUvpRwuPML8m1Sa Ms42V5FgaItpu0TiOot4 ck93kRGub2F9hWC4YBaz FXShkA6lJRyjZcL1 GDOaGcHnzC50aEBiPYoh Vb7vaApodXmlNL2zJNCk sybmLICapT9cNWEoyFDd dJiePS6iWEArdalr e560YuGqXJM8KOIvgOLw T4JvfU8tZlPsVALvBDAp I2GmkPQkFPiqO348XLls QbD9SYYxfsAzW8Kq NUIzzWzmDzC8e0M5Wn8X u5TincssYVR2WOdjPCN1 VkNtErYkKyQ9V5DuZtc0 VZKzzGfyOI3pS5Lv LZGbegjpxxnknHJ6OOYi TSKhtI82vXZpQXwjCa9u k3C1r805GHQwJHWvzA85 Dl6ysOueBESlqOMH jZ8kpkgup9rzkanfHfYl GKSxFCq2FKu2LKBjjYhn ShRgNIP2NrV6BST8vLSc cM5qqJcptujbbH6i Oyc+Y93osP7nDKM0HKL8 hlzkXJEiadUaZO48OZ91 E2QfKshmvOLamQY+PGRp fwBhkGxyFN8oUuOb g5aub0CsNVfiQ4WfLFJg TZmsYyd3EFQpFVF3jEX2 uN6fFDDcAZkcy0K5lTN1 U3FaskCkuh3ds1rk PRAsCMyaT62boXJbw6Z6 JBCtgJM8YCTzwDifTkCk dM96Zfy+OHXyyMpdv0Bj Gkazh8dpg2ihgVh4 IjMwJSIgdmFsaWduPSJ0 f4IrSm68G23jZPskTVUy IYAjZKDmNBCizKigzs6z tN8bRd3+PGNvbCB3 vLP2rL8mWBLoGaB8ZBdp R379VzBldIDrRntgn4ei k0jtzKz9RiPsCYUrkbPo zDamLPT6i6HtTu77 Y43dXSqvWEEmBNUjPPSq LYRezWolsd6yyW5gTp6+ DP6wi8iepo27uC22rLL+ RWQqDDR4xEsgVHxj MYIlyG1dEPazAqP1LSEs RzAdiQ66vHJdRBwwNo6s lLdfvOorPD7aLGIayvse j592JcBij8adQBOd vJDpEIgaAAE6H94ah7R3 TUYxOTJrJWF6vVD8dS2z bGlnbjogbGVmdDsgdmVy qLchWRhsUMnfJ022 IHRvcDsnPlBhdGllbnQg FgQyJXt2X0QeBkf9OGYu uLphBY8xgZUsIArlLx1d fHazfLqxNF7ySGYo mytmu665OcOpv1kuGAZg kQIhUAisMOI4K95zx8Y3 WMKnHKVkJPR1kVZ2mZ9p bGlnbjogbGVmdDsg chVayWgwTXtvXEkfO524 IHRvcDsnPkJpcnRoIERh vLP7IJ94CA55sXIkm8W0 wZT9K0FhKZRzthgc tqpydFK5PZVmMLZrxL52 Bh5ioKeaHw3fPDRkZYA9 EJRkyIDwX4VlzP6zLpQl UWCaLDZcU4IumMTr KNyfN903KVoqEnE7RKFv xlYlC1OrYIOuqIcdLuQ0 n5N4Kd8YV3C5VJ26DA65 sVFjl2N7lZB9Z1Et LKNmwhkyapbvfXY4RGKa DSSaiJ31Id1lmNniMq1h NPGqSAT5GREmdMGkO1Kk nV2rLoMxGKYnJCYw T9MbkSDkBYfsS824FQss NfV2GAVgsoYoY5WoSWMj eMbhRfQ9y3X6Yp8BSSr2 GL74TG80cHQih6H7 uLE9V1VuULPoarblswno oRD8WCSfYSYiwG72Wg0k wSbaGe7ySTUjZXT0UKEs pALmA9GajZ5yJmZy FYPqVUJiY9JrsSQhSRxt V643KAbcSjZ2CWPzwrBb J5SbQSUqjIunVtW9k7E7 Tc0PNBJvWM57GBB6 zGU4OK20LI20Y8XaHeie dGFibGU+PHRhYmxlIHdp ZHRoPScxMDAlJyBzdHls JD7eMr8eOWHgUXPv sDvemYKtDeZra8fpRANo PXupXS6jzNhvR3MqqRK2 IXZqe1g7Xk80O48pF6If dXA+UZAovOL8xLV5 fB7iVjDfBbE7CAaiW360 XiOiqURvWyxnn0wtv1qx gZi7FvT2ZFRwtoPaeDms WCU3x3RuJn65G53l IHdpZHRoPSIxNSUiIHZh tDmgvt5fcR6vOa4+PGNv uGB4nZQ8rX5rDmRwPqY3 YUvvN366BvAmrHLc Azidg9wif6yizKf9BwEq KRIcahSaoSekOGT2w6Qm Np28P2UfySmpd3SiEye8 qg84mZPin3X4pVL3 O5EzTNFrjmwzzXFqeEbm WX1iBVJkkblhJEAsmE1v QSNzE6g4BwCxMiB1MUob Q1QgklK1BOZbpXOk BGrmMDQ9U70us9X9ZHQf UZTuPES1bGZ2rD5bdVcz bjogbGVmdDsgdmVydGlj WLjsIXetB824GDIh xAxpJTZxdT2gGHKpsNUi fIcwGU6cSCImwixhPiIU MivYWy6aBYYEFfODI4Ga TDwvdGQ+PHRkIHN0 zZtiGYvxFOUwhL9cFTTr E1b4SiBcVpR1QJkdF4Dr JCBwrcskYr35lI2dOjIn SrX2YFkqU3RxmaG6 EHAgmJZeODosZYF7U07v j3Y8FBXlZQFoOQJ2cAK7 aD9bvJhyrboxnUJkxOhl dmVydGljYWwtYWxp U144RFFodZxwFoR7OvWe GjF5YKP0F1PpMpw9PKAz lOifYB5frNQaOKifFn0n kHxwbUurFK5aRGLk zcomBORdjO5aONEeoJHt sRgwOB3jPCHnbccea955 XdOaHTP4UKJpiYYkJ1Yb dL4zCwGoZRCfQJCf C2AswSUuFZpjE042SAzm CzR2ABXbytLuR9TpWJEs sCsyOeM4q5E1Hw5sCGLD ZWFyczwvdGQ+PHRk FVS8oToyGIiiZGRljB4c THAmJ4j7PiPpDiF8GYuu P6JvMSAumgssZo88hU8d IvSwIbW4NJvuZ6Rf ydM3LNGjuNKcXQuhUID4 P26fa6E0IXRwVFKcPNO6 wQG4kI2imMqersukxSHf dDsgdmVydGljYWwt WJiyC244SQVtnIfuHgZd bWFsZTwvdGQ+PHRkIHN0 pPxyJRfrZXRftN3eZRVv Z9p6TmFsPlU1JRwk T0WtHNVljzddIh18tA2p PaHyAvW0DUupJ3FyexZ9 PFIkgMFxYRckJQQ5U92d g1I9LEIvQVLeXDJ8 sUN9pB6vpFyevfjluFDp dDsgdmVydGljYWwtYWxp S596XYVegAvoWx19tRAe oEeoedV9H5YvEjhz dHI+XC78CMWwRW56fCQz wUZca1cgaNf8JpVkFZZw NGQ6fBpwVNnzm9IrADHp T17gdMPli5C0HOKc sYyuwCDaZiAfoQD3qF5y LMcracqzw0oovqxuNgnw v4egya66eN20G85bMHrc ZHRoPSIzMCUiIHZh nJzozf4idC2qQf7+PGNv kBP7dKK7eG2fBuVnBoJ2 ROcdG805NpLihMXoXwfv g4kjo8gakEt7OtLg ESMlprOgmYueVEN4e2Nb Lm07C13oENneRKDwEIXc KNYxIAKjvCihnp8htO5b Ii8+YY3mi7wzql41 fK50qSM+UVExZEI0hBtr KUvoLTXszB3fDPofJfE8 UHSpLpQunC35vCKkFKom Jh6hpBxhjNalAF0v SCPcwfpsm757WrSfa6ec NIHemJCaDHupVSI5E88a d2Z1DYCvVWGmEQK9gSB6 yM0faDrlhcjnmVTl dDsgdmVydGljYWwtYWxp C922NLAjnPelSbIhoCMg I7bswmZPAC8zGegvrMO+ CLKeETF1wMveXVys WJSxbE4qOBZqF2u4IqWv EnI4KRxiH9JhitR6MNHv aICkMZJyeOWLxG2oybbh b7vzsjwhMnMcJIJw CMz2JQv5WLQcmMrgEjZv JMI4KkY5TOF3lNYblU8h aCnmmzcknF5xKxn+RklO OjwvdGQ+PHRkIHN0 cWnjOCxvUTLolJ2yPTZb L3i0JdPjUkP7AAwcS0Gt mhJ0YOYjsSZxEGRjhMQZ lL6iatmoe5btkksy IeUvRBXtIZw2RRv2ATLs lUqrAqMePRN7XrY2NVM5 gQAmqI3aiYpccdjvfH1l Oyc+TVJOOjwvdGQ+ MFOmDLZ6aAuzOUiaPPSl fI8zZGFjH8d3VbZePmJ6 PGwjX8FsjwY4IKUjlFNy NXLsdDUDlC7whsag s4nchlnjIpHpBGZtYLh1 GXn6PITkaVjeNcSuZJR3 GmG6GCU2fIXltD2haKic vtjazK5gQnt+UGF5 NDE5MA65FI38F4CtOfbf dGFibGU+PHRhYmxlIHdp ZHRoPScxMDAlJyBzdHls ZJ9fAm0sOSErGPIv bGxh (more content not included)... Normal [facility] Capillary Glucose POCon 05-19 Glucose [Mass/Vol] 82 mg/dL Normal 55-99 [facility] Comment on above: Performed By: #### 2 [id number] #### [facility] [address] [place] [address] Consent for Treatmenton 05-19 Consent for Treatment [id number] #1.00CD:127 Normal [facility] Glu 1 Hron 06-03-2020 Glucose [Mass/Vol] 139 mg/dL Normal 55-180 [facility] Comment on above: Result Comment: POSI TIVE SCREEN = 1 HR > 140 mg/dL Performed By: #### 2 [id number] #### [facility] [address] [place] [address] Glu 2 Hron 06-03-2020 Glucose [Mass/Vol] 123 mg/dL Normal 55-155 [facility] Comment on above: Result Comment: DIAB ETES FASTING >126 mg/dL or 2 HOUR >200 mg/dL Performed By: #### 2 697743, 3147334, [id number] #### [facility] [address] [place] [address] Glu 3 Hron 06-03-2020 Glucose [Mass/Vol] 101 mg/dL Normal 55-140 [facility] Comment on above: Result Comment: GEST ATIONAL DIABETES 2 of the following: FASTING >95 mg/dL 1 HOUR >180 mg/dL 2 HOUR >155 mg/dL 3 HOUR >140 mg/dL Performed By: #### 2 723066 ####[facility] [address] [place] [address] Glu Fastingon 06-03-2020 Glucose [Mass/Vol] 83 mg/dL Normal 55-99 [facility] Comment on above: Performed By: #### 2 342147, 2506636, [id number] #### [facility] [address] [place] [id number] Rubella Abon 06-03-2020 Rubella Ab Positive Normal Positive [facility] Comment on above: Performed By: #### 2 119100, 0440858, [id number] #### [facility] [address] [id number] ABO/Rhon 06-02-2020 ABO/Rh Positive Invalid Interpretation Code [facility] Comment on above: Performed By: #### 1 5093553, [id number] ####[facility] [address] [place] [address] ABSCon 06-02-2020 ABSC Gel Interp Negative Normal [facility] Comment on above: Performed By: #### 1 [id number], [id number] ####[facility] [address] [place] [address] CBC w/Indiceson 06-02-2020 Erythrocyte distribution width (RBC) [Ratio] 12.9 % Normal 10.9-14.2 [facility] Comment on above: Performed By: #### 2 872346, 7982994, [id number] #### [facility] [address] [place] [address] Hematocrit (Bld) [Volume fraction] 33.5 % Low 34.0-46.0 [facility] Comment on above: Performed By: #### 2 644359, 1116979, [id number] #### [facility] [address] [place] [address] Hemoglobin (Bld) [Mass/Vol] 11.2 g/dL Low 12.0-16.0 [facility] Comment on above: Performed By: #### 2 774206, 9320949, [id number] #### [facility] [address] [place] [address] MCH (RBC) [Entitic mass] 29.0 pg Normal 27.0-34.0 [facility] Comment on above: Performed By: #### 2 550469, 4328264, [id number] #### [facility] [address] [place] [address] MCHC (RBC) [Mass/Vol] 33.5 g/dL Normal 31.4-36.0 [facility] Comment on above: Performed By: #### 2 716866, 0178356, [id number] #### [facility] [address] [place] [address] MCV (RBC) [Entitic vol] 86.6 fL Normal 80.0-100.0 F [facility] Comment on above: Performed By: #### 2 185768, 0826135, [id number] #### [facility] [address] [place] [address] Platelet mean volume (Bld) [Entitic vol] 7.6 fL Normal 6.4-10.8 [facility] Comment on above: Performed By: #### 2 522539, 9615399, [id number] #### [facility] [address] [place] [address] Platelets (Bld) [#/Vol] 284.0 E9/L Normal 150.0-500.0 [facility] Comment on above: Performed By: #### 2 527922, 1705327, [id number] #### [facility] [address] [place] [address] RBC (Bld) [#/Vol] 3.9 E12/L Low 4.3-5.9 [facility] Comment on above: Performed By: #### 2 703396, 4705431, [id number] #### [facility] [address] [place] [address] WBC corrected for nucl RBC Auto (Bld) [#/Vol] 9.4 E9/L Normal 4.0-11.0 [facility] Comment on above: Performed By: #### 2 527423, 4583470, [id number] #### [facility] [address] [place] [address] Consent for Treatmenton 05-19 Consent for Treatment [id number] 10 [id number] #1.00CD:127 Normal [facility] Gest Scr Glu 1 Hron 06-03-19 Glucose [Mass/Vol] 150 mg/dL High 55-140 [facility] Comment on above: Result Comment: Posi tive Screen =1 HR > 140mg/dL Performed By: #### 2 749904, 8205972, [id number] #### [facility] [address] [place] [address] Ambulatory Clinical Summaryo n 2020 Ambulatory Clinical Summary {[id number]-l0-12-be- d8-26-70}CD:450083 Normal [facility] Obstetrics Office/Clinic Not jasmine 2020 [...] trimester) Ordered: Office Visit Level 4 Est 74820 UT US Follow Up US Follow Up 2. Obesity complicating , third trimester (O99.213: Obesity complicating , third trimester) Ordered: Office Visit Level 4 Est 12476 [place] US Follow Up US Follow Up 3. Depression during (O99.340: Other mental disorders complicating , unspecified trimester) Ordered: Office Visit Level 4 Est 51088 NC US Follow Up US Follow Up 4. 29 weeks gestation of (Z3A.29: 29 weeks gestation of ) Ordered: Office Visit Level 4 Est 07117 UT US Follow Up US Follow Up Follow-up With When Contact Information Funmilayo ESCOBEDO MD In [address] [place] [address]- Additional Instructions: Problem List/Past Medical History Ongoing [...] Protein Urine Dipstick: Negative (05/31/20 14:25:00) Normal [facility] Comment on above: Result [...] including vitamins, herbs, eye drops, creams, and aexj-hnv-jiofgdx medicines. ? Any blood disorders you have. [...] This inform (more content not included)... Normal [facility] Ultrasound Reporton RAD - Ultrasound Report [id number] [id number]# 1.00CD:127 Normal [facility] Coding Summary.on 05-17-2020 Coding Summary. CODING DATE: 05/16/2020 FINAL [facility] STATUS: Home (Routine DC) PAYOR: [place] ADMIT DX: REASON FOR VISIT DX: O09.92 [...] [facility] CphT Date Saved: 05/16/2020 11:17 pm Normal [facility] C Urineon 05-13-2020 Bacteria identified [...] Locations R1: This test was performed at: [employer] [facility], [address] [place] [address], [facility]- , , [facility] Comment on above: Performed By: #### 2 632700 ####[facility] [address] [place] [address] Ambulatory Clinical Summaryo n 05-11-2020 Ambulatory Clinical Summary {[id number]- b9-f9-14}CD:068329 Normal [facility] Obstetrics Office/Clinic Not jasmine 05-11-2020 Obstetrics [...] far. Ordered: Office Visit Level 3 Est 53183 NC 2. Depression during (O99.340: Other mental disorders complicating , unspecified trimester) Doing meditation. Ordered: Office Visit Level 3 Est 63501 NC 3. Supervision of high risk in [...] 1 Hour Office Visit Level 3 Est 49981 [place] Urine Culture 4. 26 weeks gestation of (Z3A.26: 26 weeks gestation of ) Ordered: Office Visit Level 3 Est 93756 UT Follow-up With When Contact Information [facility] [place] In [address] [place] [address]- Additional Instructions: Problem List/Past Medical History Ongoing [...] Smokeless Toba (more content not included)... Normal [facility] Comment on above: Result [...] Petroleum jelly. ? 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 Rectal thermometer. ? [...] ? Consumer Product Safety Commission: www.cpsc.gov ? [employer]: www.healthychildren. org ? Safe [...] 01/17/2009 Document Revised: 01/17/2018 Document Reviewed: 12/25/2017 [employer] Patient Education ? 2019 [employer]. [facility] Coding Summary.on 04-29-2020 Coding Summary. CODING DATE: 04/28/2020 [facility] STATUS: Home (Routine DC) PAYOR: Diamond [...] [facility] CphT Date Saved: 04/28/2020 10:33 pm [facility] Coding Summary.on 04-27-2020 Coding Summary. CODING DATE: 04/27/2020 [facility] STATUS: Home (Routine DC) PAYOR: Diamond [...] result in slightly different terminology. Coded By: Vannsea [facility] CphT Date Saved: 04/27/2020 10:53 am [facility] Nursing Assessmenton 021 Nursing Assessment [id number] #1.00CD:127 [facility] C Urineon 04-23-2020 Bacteria identified [...] Locations R1: This test was performed at: [facility], [address] [place] [address], [id number], [facility] Comment on above: Performed By: #### 2 632334, 2932213, [id number] #### [facility] [address] [place] [address] Consent for Treatmenton Consent for Treatment [id number] #1.00CD:127 [facility] Consent for Treatment [id number] #1.00CD:127 [facility] Discharge Instructionson Discharge Instructions [id number] 030 [id number] #1.00CD:127 Normal [facility] Inpatient Clinical Summaryon 04-21-2020 Inpatient Clinical Summary [address] [address] Clinical Summary Person Information Name: MYA MYLES [place] Age: 29 Years : 1990 Sex: Female PCP: Chao Blackwell III, DO Marital Status: Single Race: White Ethnicity: Non- or Language: Azeri Visit Id: Visit Reason: Speciality: Acuity: Enc Type: OB Triage Med Service: Obstetrics Arrival: 04/21/2020 15:56:05 Discharge: 04/21/2020 17:47:48 Dispo Type: Home ([facility]) Address: [address] [place] [address] [address] [place] [id number] Provider Notes: Diagnosis: Problems Active Depression during [...] Follow up: With: Address: When: [place] [address] [employer] (1) 05/12/2020 9:00 AM Comments: Call for any problems. Type Location Start [facility] 05/12/2020 9:00 AM 05/12/2020 9:15 AM Confirmed Patient Education Information: Normal [facility] Inpatient Patient Summaryon 04-21-2020 Inpatient Patient Summary [address] [address] Patient Discharge Instructions PERSON INFORMATION Name: MYA [...] Follow up: With: Address: When: [place] [address] [employer] (1) 05/12/2020 9:00 AM Comments: Call for any problems. In the event that this physician does not participate in your insurance network, please consult with your insurance company to find a nearby participating provider. Type Location Start [facility] [place] 05/12/2020 9:00 AM 05/12/2020 9:15 AM [...] to serve you. Thank you for choosing [facility] Normal [facility] Insurance Correspondence Off iceon 04-21-2020 Insurance Correspondence Office [id number] #1.00CD:127 Normal [facility] RAD - Ultrasound Reporton RAD - Ultrasound Report [id number] [id number] #1.00CD:127 Normal [facility] UA With Cult Reflexon 2020 Bacteria LM Ql (Urine sed) 1+ /HPF Abnormal Trace [facility] Comment on above: Performed By: #### 2 638765, 2137305, [id number] #### [facility] [address] [place] [address] Bilirubin Ql (U) Negative Normal Negative [facility] Comment on above: Performed By: #### 2 435536, 2643135, [id number] #### [facility] [address] [place] [address] Clarity (U) CLEAR Normal Clear [facility] Comment on above: Performed By: #### 2 302726, 0737430, [id number] #### [facility] [address] [place] [address] Color (U) YELLOW Normal Yellow [facility] Comment on above: Performed By: #### 2 386671, 9424903, [id number] #### [facility] [address] [place] [address] Epithelial cells.squamous LM.HPF (Urine sed) [#/Area] 3-4 Normal 0-2 [facility] Comment on above: Performed By: #### 2 357852, 9046246, [id number] #### [facility] [address] [place] [address] Glucose Test strip (U) [Mass/Vol] Negative Normal Negative [facility] Comment on above: Performed By: #### 2 244727, 7788285, [id number] #### [facility] [address] [place] [address] Hemoglobin Ql (U) Negative Normal Negative [facility] Comment on above: Performed By: #### 2 435299, 4650406, [id number] #### [facility] [address] [place] [address] Ketones (U) [Mass/Vol] 1+ Abnormal Negative [facility] Comment on above: Performed By: #### 2 920804, 8406948, [id number] #### [facility] [address] [place] [address] [place].plasma/[place]. RBC (Bld) [Mass ratio] 0-3 Normal 0-3 [facility] Comment on above: Performed By: #### 2 [id number], [id number], [id number] #### [facility] [address] [place] [address] Nitrite Ql (U) Negative Normal Negative [facility] Comment on above: Performed By: #### 2 [id number], [id number], [id number] #### [facility] [address] [place] [address] pH (U) 7.0 [pH] Invalid Interpretation Code 5.0-9.0 [facility] Comment on above: Performed By: #### 2 139745, [id number], [id number] #### [facility] [address] [place] [address] Protein (U) [Mass/Vol] Negative Normal Negative [facility] Comment on above: Performed By: #### 2 [id number], [id number], [id number] #### [facility] [address] [place] [address] Specific gravity (U) [Rel density] 1.010 Invalid Interpretation Code 1.005-1.030 [facility] Comment on above: Performed By: #### 2 338196, [id number], [id number] #### [facility] [address] [place] [address] UA Spec Desc Clean Catch Normal [facility] Comment on above: Performed By: #### 2 [id number], [id number], [id number] #### [facility] [address] [place] [address] Urobilinogen Qn (U) 0.2 {Henny'U}/dL Normal 0.0-1.0 [facility] Comment on above: Performed By: #### 2 604778, [id number], [id number] #### [facility] [address] [place] [address] WBC Auto Ql (U) 1+ Abnormal Negative [facility] Comment on above: Performed By: #### 2 [id number], [id number], [id number] #### [facility] [address] [place] [address] WBC LM.HPF (Urine sed) [#/Area] 0-5 Normal 0-5 [facility] Comment on above: Performed By: #### 2 223507, [id number], [id number] #### [facility] [address] [place] [address] C Urineon 04-18-2020 Bacteria identified Cx Nom [...] Locations R1: This test was performed at: [facility], [address] [place] [address], [facility] , , [facility] Comment on above: Performed By: #### 2 [id number] ####[place] [address] Obstetrics Office/Clinic Not jasmine 04-18-2020 Obstetrics Office/Clinic [...] trimester) Ordered: Office Visit Level 4 Est 04592 [place] 2. Obesity complicating , second trimester (O99.212: Obesity complicating , second trimester) Ordered: Office Visit Level 4 Est 21050 [place] 3. 21 weeks gestation of (Z3A.21: 21 weeks gestation of ) Ordered: Office Visit Level 4 Est 33381 [place] 4. Depression during (O99.340: Other mental disorders complicating , unspecified trimester) Ordered: Office Visit Level 4 Est 32355 [place] Follow-up With When Contact Information Funmilayo ESCOBEDO MD In [address] [place] [address]- Additional Instructions: Problem List/Past Medical [...] cx at next visit. Kendal Escobedo MD [facility] Comment on above: Result Comment: Elec tronically Signed By: LAURA MACEDO, Funmilayo Garner.rosey\Date and Time Signed: 04/18/20 18:12 EST C [...] Locations R1: This test was performed at: [facility], [address] [place] [address], [id number] , , [facility] Comment on above: Performed By: #### 2 [id number] ####[facility] [address] [place] [address] HIV Screen 4th Generation wR fxon 04-16-2020 HIV 1+2 Ab+HIV1 p24 Ag IA Ql Non-Reactive Invalid Interpretation Code Non Reactive [facility] Comment on above: Result Comment: Perf ormed at: [address] [id number] PhD Lanette Dunn Performed By: #### 2 [id number], [id number], [id number] #### [facility] [address] [place] [address] Hep Bs Agon 04-16-2020 HBV surface Ag IA Ql Negative Invalid Interpretation Code Negative [facility] Comment on above: Result Comment: Perf ormed at: [address] [id number] PhD Lanette Dunn Performed By: #### 2 [id number], [id number], [id number] #### [facility] [address] [place] [address] Coding Summary.on 04-15-2020 Coding Summary. CODING DATE: 04/15/2020 FINAL [facility] STATUS: Home (Routine DC) PAYOR: Diamond [...] CphT Date Saved: 04/15/2020 09:18 am Normal [facility] RPRon 04-15-2020 Reagin Ab RPR Ql (S) Non-Reactive Normal Non-Reactive [facility] Comment on above: Performed By: #### 9 [id number] ####[facility] [address] [place] [address] ABO/Rhon 04-14-2020 ABO/Rh Positive Invalid Interpretation Code [facility] Comment on above: Performed By: #### 2 [id number], [id number] #### [facility] [address] [place] [address] ABSCon 04-14-2020 ABSC Gel Interp Negative Normal [facility] Comment on above: Performed By: #### 2 [id number], [id number] #### [facility] [address] [place] [address] Ambulatory Clinical Summaryo n 04-14-2020 Ambulatory Clinical Summary {[id number]-u2-[id number]-[id number]-9t-66-73- 89-03-14}CD:810704 Normal [facility] Auto Diffon 04-14-2020 Basophils/100 WBC (Bld) 0.3 % Normal 0.0-2.0 [facility] Comment on above: Order Comment: Order Added by Discern Expert. Performed By: #### 2 943906, [id number], [id number] #### [facility] [address] [place] [address] Basophils/Leukocytes Auto (Bld) [Pure # fraction] 0.0 E9/L Normal 0.0-0.2 [facility] Comment on above: Order Comment: Order Added by Discern Expert. Performed By: #### 2 471986, [id number], [id number] #### [facility] [address] [place] [address] Eosinophils/100 WBC (Bld) 0.3 % Normal 0.0-8.0 [facility] Comment on above: Order Comment: Order Added by Idalia Expert. Performed By: #### 2 607197, 0676456, [id number] #### [facility] [address] [place] [address] Eosinophils/Leukocytes Auto (Bld) [Pure # fraction] 0.0 E9/L Normal 0.0-0.5 [facility] Comment on above: Order Comment: Order Added by Idalia Expert. Performed By: #### 2 290713, 8129404, [id number] #### [facility] [address] [place] [address] Lymphocytes/100 WBC (Bld) 19.1 % Normal 14.0-50.0 [facility] Comment on above: Order Comment: Order Added by Idalia Expert. Performed By: #### 2 106279, 6276617, [id number] #### [facility] [address] [place] [address] Lymphocytes/Leukocytes Auto (Bld) [Pure # fraction] 1.4 E9/L Normal 1.0-4.0 [facility] Comment on above: Order Comment: Order Added by Idalia Expert. Performed By: #### 2 902201, 2201233, [id number] #### [facility] [address] [place] [address] Monocytes/100 WBC (Bld) 6.4 % Normal 4.0-14.0 [facility] Comment on above: Order Comment: Order Added by Discern Expert. Performed By: #### 2 697161, 5990703, [id number] #### [facility] [address] [place] [address] Monocytes/Leukocytes Auto (Bld) [Pure # fraction] 0.5 E9/L Normal 0.2-1.0 [facility] Comment on above: Order Comment: Order Added by Discern Expert. Performed By: #### 2 835800, 1596072, [id number] #### [facility] [address] [place] [address] Neutrophils/100 WBC (Bld) 73.9 % Normal 36.0-75.0 [facility] Comment on above: Order Comment: Order Added by Discern Expert. Performed By: #### 2 655727, 1189202, [id number] #### [facility] [address] [place] [address] Neutrophils/Leukocytes Auto (Bld) [Pure # fraction] 5.3 E9/L Normal 2.0-7.5 [facility] Comment on above: Order Comment: Order Added by Discern Expert. Performed By: #### 2 123439, 1986984, [id number] #### [facility] [address] [place] [address] BhCG Quanton 04-14-2020 [place] [address] m[IU]/mL High 1-3 [facility] Comment on above: Result Comment: GEST ATIONAL AGE HCG RANGE (mIU/mL) NON- <1-3 0.2-1 WEEKS 5-50 1-2 WEEKS 50-500 2-3 WEEKS 100-5,000 3-4 WEEKS 500-10,000 4-5 WEEKS 1,000-50,000 5-6 WEEKS 10,000-100,000 6-8 WEEKS 15,000-200,000 8-12 WEEKS 10,000-100,000 Performed By: #### 2 662354 #### [facility] [address] [place] [address] CBC w/ Auto Diffon 02-25-202 1 Erythrocyte distribution width (RBC) [Ratio] 13.0 % Normal 10.9-14.2 [facility] Comment on above: Performed By: #### 2 053313, 8870658, [id number] #### [facility] [address] [place] [address] Hematocrit (Bld) [Volume fraction] 34.6 % Normal 34.0-46.0 [facility] Comment on above: Performed By: #### 2 126326, 4481762, [id number] #### [facility] [address] [place] [address] Hemoglobin (Bld) [Mass/Vol] 11.6 g/dL Low 12.0-16.0 [facility] Comment on above: Performed By: #### 2 005062, 6934296, [id number] #### [facility] [address] [place] [address] MCH (RBC) [Entitic mass] 29.8 pg Normal 27.0-34.0 [facility] Comment on above: Performed By: #### 2 488723, 5669127, [id number] #### [facility] [address] [place] [address] MCHC (RBC) [Mass/Vol] 33.4 g/dL Normal 31.4-36.0 [facility] Comment on above: Performed By: #### 2 416134, 8510046, [id number] #### [facility] [address] [place] [address] MCV (RBC) [Entitic vol] 89.2 fL Normal 80.0-100.0 [facility] Comment on above: Performed By: #### 2 741222, 9676689, [id number] #### [facility] [address] [place] [address] Platelet mean volume (Bld) [Entitic vol] 7.8 fL Normal 6.4-10.8 [facility] Comment on above: Performed By: #### 2 921602, 9286564, [id number] #### [facility] [address] [place] [address] Platelets (Bld) [#/Vol] 326.0 E9/L Normal 150.0-500.0 [facility] Comment on above: Performed By: #### 2 366753, 3851953, [id number] #### [facility] [address] [place] [address] RBC (Bld) [#/Vol] 3.9 E12/L Low 4.3-5.9 [facility] Comment on above: Performed By: #### 2 709636, 5383763, [id number] #### [facility] [address] [place] [address] WBC corrected for nucl RBC Auto (Bld) [#/Vol] 7.2 E9/L Normal 4.0-11.0 [facility] Comment on above: Performed By: #### 2 535337, 2966646, [id number] #### [facility] [address] [place] [address] Consent for Treatmenton 03-22 Consent for Treatment [id number] #1.00CD:127 Normal [facility] SthT5ozd 04-14-2020 HbA1c (Bld) [Mass fraction] 4.8 % Normal <=5.9 [facility] Comment on above: Performed By: #### 2 909866, 3502298, [id number] #### [facility] [address] [place] [address] Patient Educationon 04-14-19 Patient Education How a [...] Document Reviewed: 07/23/2008 ExitCare? Patient Information ?2014 [employer] [facility]. Obstetrics and Gynecology Eating Plan for Women [...] your (t (more content not included)... Normal [facility] U Drug Screenon 04-14-2020 Amphetamines Screen method >1000 ng/mL Ql (U) Negative Normal Negative [facility] Comment on above: Result Comment: Nega tive Cutoff: <1000 ng/mL Performed By: #### 2 561443 #### [facility] [address] [place] [address] Barbiturates Screen Ql (U) Negative Normal Negative [facility] Comment on above: Result Comment: Nega tive Cutoff: <200 ng/mL Performed By: #### 2 727501 #### [facility] [address] [place] [address] Benzodiazepines Ql (U) Negative Normal Negative [facility] Comment on above: Result Comment: Nega tive Cutoff: <200 ng/mL Performed By: #### 2 513821 #### [facility] [address] [place] [address] Cocaine Ql (U) Negative Normal Negative [facility] Comment on above: Result Comment: Nega tive Cutoff: <300 ng/mL Performed By: #### 2 728434 #### [facility] [address] [place] [address] Opiates Screen Ql (U) Negative Normal Negative [facility] Comment on above: Result Comment: Nega tive Cutoff: <300 ng/mL Performed By: #### 2 184850 #### [facility] [address] [place] [address] Phencyclidine Screen method >25 ng/mL Ql (U) Negative Normal Negative [facility] Comment on above: Result Comment: Nega tive Cutoff: <25 ng/mL These drug screen results are to be used for medical (i.e., treatment) purposes only. Unconfirmed drug screening results must not be used for non-medical purposes (e.g., employment testing, legal testing). Performed By: #### 2 672027 #### [facility] [address] [place] [address] Tetrahydrocannabinol Screen method >50 ng/mL Ql (U) Negative Normal Negative [facility] Comment on above: Result Comment: Nega tive Cutoff: <50 ng/mL Performed By: #### 2 661729 #### [facility] [address] [place] [address] RAD - Ultrasound Reporton RAD - Ultrasound Report [id number] #1.00CD:127 Normal [facility] Lab Reportson 03-14-2020 Lab Reports [id number] #1.00CD:127 Normal [facility] Ambulatory Clinical Summaryo n 02-29-2020 Ambulatory Clinical Summary {[id number]- [id number]-98}CD:508844 Normal [facility] Ambulatory Clinical Summary {[id number]-4 [id number]-ms-[id number]-k7-c9- 3a-73-bd}CD:076303 Normal [facility] Obstetrics Office/Clinic Not jasmine 02-29-2020 Obstetrics Office/Clinic Note Chief Complaint OB 15w 2d, feeling flutters, occ. [place] Obstetric History History (1,0,0,2) # 1 Baby 1 Outcome Date: 2008 Outcome: Live Outcome or Result: Vaginal Gender: Female Gest Age: 41 weeks Wt: 3232 g Hospital: [facility] Labor: -- Child's Name: -- Baby's [...] trimester) Ordered: Office Visit Level 4 Est 31959 TH 2. Obesity complicating , second trimester (O99.212: Obesity complicating , second trimester) Ordered: Office Visit Level 4 Est 31616 TH 3. 15 weeks gestation of (Z3A.15: 15 weeks gestation of ) Ordered: Office Visit Level 4 Est 99041 TH Follow-up With When Contact Information Funmilayo ESCOBEDO MD In [address] [place] [address]- Additional Instructions: Problem List/Past Medical History Ongoing [...] Protein Urine Dipstick: Negative (02/29/20 15:46:00) Normal [facility] Comment on above: Result [...] Document Reviewed: 05/19/2009 ExitCare? Patient Information ?2014 [employer], [facility]. Family Medicine How a Baby Grows [...] flex an (more content not included)... Normal [facility] Physician Referralon 021 Physician Referral [id number] #1.00CD:127 Normal [facility] RAD - Ultrasound Reporton RAD - Ultrasound Report [id number] #1.00CD:127 Normal [facility] Physician Referralon 020 Physician Referral [id number] #1.00CD:127 Normal [facility] Physician Referralon 020 Physician Referral [id number] #1.00CD:127 Normal [facility] Chlamydia/Gonococcus, NAAon 01-30-2020 C. trachomatis rRNA KAIDEN+probe Ql (Unsp spec) Negative Invalid Interpretation Code Negative [facility] Comment on above: Performed By: #### 2 660639, 1985896, [id number] #### [facility] [address] [place] [address] N. gonorrhoeae rRNA KAIDEN+probe Ql (Unsp spec) Negative Invalid Interpretation Code Negative [facility] Comment on above: Result Comment: Perf ormed at: =G [facility] [place] [address] [place] [id number] MD Kehinde Rivero Performed By: #### 2 145298, 9968343, [id number] #### [facility] [address] [place] [address] Coding Summary.on 01-29-2020 Coding Summary. CODING DATE: 01/29/2020 FINAL [facility] STATUS: Home (Routine DC) PAYOR: Self [...] Garcia Date Saved: 01/29/2020 01:52 pm Normal [facility] Ambulatory Clinical Summaryo n 01-27-2020 Ambulatory Clinical Summary {[id number] c6-b9-26}CD:418382 Normal [facility] Obstetrics Office/Clinic Not jasmine 01-27-2020 [...] drug use. Last pap 2-13-18, NILM. 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 Review of Systems Constitutional: No fever, No [...] genetic testin (more content not included)... Normal [facility] Comment on above: Result [...] Document Reviewed: 07/23/2008 ExitCare? Patient Information ?2013 [employer]. [facility] January 27, [address] MYA MYLES [address] [place] [address] [place] [address] MYA MYLES 1990 Our patient Mya Myles is with a single IUP. EDC is 08/20/[address] [address] [facility] Coding Summary.on 01-22-2020 Coding Summary. CODING DATE: 01/22/2020 FINAL [facility] STATUS: Home (Routine DC) PAYOR: Self [...] Fleming Date Saved: 01/22/2020 08:46 am Normal [facility] 1st Trimesteron 01-11-2020 1st Trimester Exam Date/Time: [...] corresponding gestational age +/- 1 week are: [place] Rump Length: 1.8 cm Composite Ultrasound Age: [...] Transabdominal Ultrasound Performed Size = Dates Normal [facility] Ambulatory Clinical Summaryo n 01-07-2020 Ambulatory Clinical Summary {[id number] [id number]}CD:094503 Normal [facility] Ambulatory Clinical Summaryo n 01-06-2020 Ambulatory Clinical Summary {[id number]-[id number]- 7a-[id number]}CD:561298 Normal [facility] BhCG Quanton 01-06-2020 HCG.beta subunit Qn 619939 m[IU]/mL High 1-3 [facility] Comment on above: Result Comment: GEST ATIONAL AGE HCG RANGE (mIU/mL) NON- <1-3 0.2-1 WEEKS 5-50 1-2 WEEKS 50-500 2-3 WEEKS 100-5,000 3-4 WEEKS 500-10,000 4-5 WEEKS 1,000-50,000 5-6 WEEKS 10,000-100,000 6-8 WEEKS 15,000-200,000 8-12 WEEKS 10,000-100,000 Performed By: #### 2 010391, 1655593, [id number] #### [facility] [address] [place] [address] Consent for Treatmenton 12-19 Consent for Treatment [id number] #1.00CD:127 Normal [facility] Gynecology Office/Clinic Not jasmine 01-06-2020 Gynecology Office/Clinic Note Chief Complaint Confirmation of , Nausea Some Vomitting. Has had Dark pink Spotting, First OB paper work added . Obstetric History History (1,0,0,2) # 1 Baby 1 Outcome Date: 2008 Outcome: Live Outcome or Result: Vaginal Gender: Female Gest Age: 41 weeks Wt: 3232 g Hospital: [facility] Labor: -- Child's Name: -- Baby's [...] order subsequent US. Plan to refer to M d/t hx child with congenital lymphedema. Recommend [...] test, result positive) Ordered: HCG, Urine POC 24519 Follow-up No qualifying data available Problem List/Past [...] Results HCG, Urine: Positive (01/06/20 09:31:00) Normal [facility] Comment on above: Result Comment: Elec tronically Signed By: Caroline HILARIO\.rosey\Date and Time Signed: 01/06/20 10:17 EST Progesteroneon 01-06-2020 Progesterone [Mass/Vol] 18.00 ng/mL Invalid Interpretation Code [facility] Comment on above: Result Comment: REFE RENCE RANGE Males 0.14-2.06 ng/mL Non- Females Follicular 0.10-0.60 ng/mL Luteal 3.00-17.5 ng/mL Midluteal 3.30-18.6 ng/mL Post-Menopausal 0.10-0.40 ng/mL First Trimester 8.30-66.5 ng/mL Second Trimester 18.9-66.1 ng/mL Third Trimester 35.8-312.4 ng/mL Performed By: #### 2 142644, 3544477, [id number] #### [facility] [address] [place] [address] Coding Summary.on 12-14-2019 Coding Summary. CODING DATE: 12/14/2019 FINAL [facility] STATUS: Home (Routine DC) PAYOR: Self [...] Garcia Date Saved: 12/14/2019 02:13 pm Normal [facility] ED Note-Physicianon 12-14-19 ED Note-Physician Basic Information Time Seen: Kate MESA, Gege Ryan. 12/13/2019 19:14 Chief Complaint pt to ED with c/o consuming plastic from a burger at [employer] today. pt is . denies complaints History of Present Illness This patient presents emergency department after ingesting some type of plastic while eating a sandwich at [employer]. She states she was at [employer] restaurant. She bit down on something hard [...] Blackwell In 3 days 12/16/2019 EDT [address] [place] [address] Business (1) Additional Instructions: Patient Education Swallowed Foreign Body, Adult, Dcxu-mw-Naqi Problem List/Past Medical History Ongoing Ovarian cyst Historical Medications Inpatient No active inpatient medications Home Bactroban 2% Cream, 1 ced, Topical, TID Cashmere 325 mg-5 mg oral tablet, 1 tab(s), Oral, q4hr, PRN Allergies No Known Allergies Social History Alcohol - Denies Alcohol Use, 11/21/2009 Substance Abuse - Denies Substance Abuse, 11/21/2009 Tobacco - Denies Tobacco Use, 11/21/2009 Family History Diabetes mellitus type 2: Mother and Father. Hypertension: Mother and Father. Lab Results No qualifying data available. Diagnostic Results No qualifying data available. [facility] Comment on above: Result Comment: Elec tronically Signed By: Gege Love PA-C\.br\Date and Time Signed: 12/13/19 19:34 EDT\.br\Electronically Co-Signed By: Ed Jerome MD\.br\Date and Time Co-Signed: 12/14/19 05:14 EDT Consent for Treatmenton 11-19 Consent for Treatment [id number] #1.00CD:127 [facility] Discharge Instructionson Discharge Instructions [id number]#1.00CD:127 [facility] ED Clinical Summaryon 2019 ED Clinical Summary [address] [address] ED Clinical Summary Person Information Name: MYA MYLES [place] Age: 29 Years : 1990 Sex: Female Language: Azeri PCP: Chao Blackwell III, DO Marital Status: Single MRN: - Visit Id: Visit Reason: Medical screening exam; CONSUMED PLASTIC IN A BURGER FROM [employer] APRX 6-8 WEEKS Speciality: Acuity: 4 Enc [...] 12/13/2019 19:44:03 12/13/2019 19:44:03 12/13/2019 19:44:03 ADDRESS: [address] [place] [address] [address] [place] [id number] [facility] DOC NOTES: MEDICAL INFORMATION: Prescriptions Given: Medications to Continue with No Changes Other Medications acetaminophen-hydroc odone (Cashmere 325 mg-5 mg oral tablet) 1 Tablets By Mouth every 4 hours as needed for pain. Refills: 0. mupirocin topical (Bactroban 2% Cream) 1 Application Topical 3 times a day. Refills: 0. PATIENT EDUCATION INFORMATION: Instructions: Swallowed Foreign Body, Adult, Ntbg-wq-Boti Follow up: With: Address: When: Chao Blackwell [address] [place] [address], [facility], [place] [address] Business (1) In 3 days 12/16/2019 DIAGNOSIS: 1:Ingestion of foreign body Normal [facility] ED Patient Education Noteon 12-13-2019 [...] Document Reviewed: 05/22/2011 ExitCare? Patient Information ?2015 [employer]. This information is not intended to replace advice given to you by your health care provider. Make sure you discuss any questions you have with your health care provider. Normal [facility] ED Patient Summaryon 020 ED Patient Summary [facility] [address] [place], [place] [id number] Patient Discharge Instructions Person Information Name: MYA MYLES Age: 29 Years Arrival Date: 12/13/2019 18:29:24 Discharge Diagnosis: 1:Ingestion of foreign body Primary Care Physician: Chao Blackwell III, DO Provider Information Primary Provider: [employer] Se[employer] Manager:None The exam and treatment you received in the Emergency Department were for an urgent problem and are not intended as complete care. It is important that you follow up with a doctor, nurse practitioner, or physician?s assistant professor of dietetics for ongoing care. If your symptoms become worse or you do not improve as expected and you are unable to reach your usual health care provider, you should return to the Emergency Department. We are available 24 hours a day. MYA MYLES has been given the following list of patient education materials, prescriptions and follow-up instructions: Follow-up Instructions: With: Address: When: Chao Blackwell [address] [place] [address], [facility], [place] [address] Business (1) In 3 days 12/16/2019 In the event that this physician does not participate in your insurance network, please consult with your insurance company to find a nearby participating provider. Patient Education Materials: Swallowed Foreign Body, Adult, Ebkn-vn-Qnkq A MESSAGE TO ALL PATIENTS REGARDING OPIOIDS PRESCRIPTION OPIOIDS: WHAT YOU NEED TO KNOW Prescription opioids can be used to help relieve nsjrmdnc-vb-tukshk pain and are often prescribed following a [...] be struggling with addiction, tell your health chronic care nurse and ask for guidance or call [facility]?S National Helpline at 5-717-788-JZVL. (more content not included)... Normal [facility] Vital Signs Date Time Vital Sign Value Performing Clinician Rene hernandez 12-26-2023 15:59-0500 Body mass index (BMI) [Ratio] 35.85 kg/m2 Catherine TRACY Work Phone: [facility] 12-26-2023 15:59-0500 Body weight 88.91 kg Catherine TRACY Work Phone: [facility] 12-26-2023 15:59-0500 Diastolic blood pressure 70 mm[Hg] Catherine TRACY Work Phone: [facility] 12-26-2023 15:59-0500 Systolic blood pressure 110 mm[Hg] Catherine TRACY Work Phone: [facility] 12-12-2023 09:52-0400 Body mass index (BMI) [Ratio] 35.48 kg/m2 Deven Russel DO Work Phone: [facility] 12-12-2023 09:52-0400 Body weight 88 kg Deven Russel DO Work Phone: [facility] 12-12-2023 09:52-0400 Diastolic blood pressure 68 mm[Hg] Deven Russel DO Work Phone: [facility] 12-12-2023 09:52-0400 Systolic blood pressure 110 mm[Hg] Deven Russel DO Work Phone: [facility] 11-27-2023 15:35-0400 Body mass index (BMI) [Ratio] 34.57 kg/m2 Catherine TRACY Work Phone: [facility] 11-27-2023 15:35-0400 Body weight 85.73 kg Catherine TRACY Work Phone: [facility] 11-27-2023 15:35-0400 Diastolic blood pressure 76 mm[Hg] Catherine TRACY Work Phone: [facility] 11-27-2023 15:35-0400 Systolic blood pressure 114 mm[Hg] Catherine TRACY Work Phone: [facility] Encounters Encounter Date Encounter Type Care Provider Facility Start: 01-01-2024 End: 01-01-2024 ambulatory DEVEN R [facility] Start: 01-01-2024 End: 01-01-2024 ambulatory CATHERINE BAEZA Not Available Start: 12-26-2023 End: 12-26-2023 flow sheet Catherine TRACY Work Phone: [facility] Comment on above: Third trimester preg faina; 36 weeks gestation of Start: 12-26-2023 End: 12-26-2023 ambulatory CATHERINE BAEZA Not Available Start: 12-26-2023 End: 12-26-2023 Bamboo flowsheet Catherine TRACY Work Phone: [facility] Start: 12-26-2023 End: 12-26-2023 Bamboo flowsheet Catherine TRACY Work Phone: [facility] Start: 12-24-2023 End: 12-24-2023 Orders Only Liliam Parra RN [facility] at [facility] Comment on above: Polyhydramnios, ante , single or unspecified fetus (Primary Dx); Lymphedema; Family history of congenital anomaly Start: 12-23-2023 End: 12-23-[address] [facility] at [facility] Start: 12-12-2023 End: 12-12-2023 Bamboo flowsheet Deven Russel DO Work Phone: [facility] Start: 12-12-2023 End: 12-12-2023 Bamboo flowsheet Deven Russel DO Work Phone: [facility] Start: 12-12-2023 End: 12-12-2023 ambulatory DEVEN RUSSEL Not Available Start: 12-12-2023 End: 12-12-2023 flow sheet Deven Russel DO Work Phone: [facility] Comment on above: Third trimester preg faina; 34 weeks gestation of ; Accessory placenta, third trimester Start: 12-09-2023 End: 12-09-[address] [facility] Start: 12-06-2023 End: 12-06-[address] [facility] Start: 12-04-2023 End: 12-04-2023 Office consultation new/estab patient 40 min Alysia Lee MD Work Phone: [facility] Comment on above: Obesity affecting pr egnancy in second trimester, unspecified obesity type (Primary Dx); Polyhydramnios, antepartum, single or unspecified fetus Start: 12-04-2023 End: 12-04-2023 [facility] Start: 11-27-2023 End: 11-27-2023 ambulatory CATHERINE BAEZA Not Available Start: 11-27-2023 End: 11-27-2023 flow sheet Catherine TRACY Work Phone: [facility] Comment on above: 32 weeks gestation o f ; Third trimester ; Dysuria Start: 11-27-2023 End: 11-27-2023 Bamboo flowsheet Catherine TRACY Work Phone: [facility] Start: 11-27-2023 End: 11-27-2023 Bamboo flowsheet Catherine TRACY Work Phone: [facility] Start: 11-14-2023 End: 11-14-2023 ambulatory DEVEN RUSSEL Not Available Start: 10-24-2023 End: 10-24-2023 ambulatory DEVEN RUSSEL Not Available Start: 10-08-2023 End: 10-08-2023 ambulatory DEVEN [facility] Start: 09-09-2023 End: 09-09-2023 ambulatory CATHERINE BAEZA Not Available Start: 09-06-2023 End: 09-06-2023 ambulatory DEVEN R RUSSEL [facility] Start: 08-12-2023 End: 08-12-2023 ambulatory DEVEN CARYO Not Available Start: 07-30-2023 End: 07-30-2023 ambulatory LADONNA CEBALLOS Not Available Start: 07-08-2023 End: 07-08-2023 ambulatory DEVEN CARYO Not Available Start: 06-07-2023 End: 06-07-2023 ambulatory DEVEN CARYO Not Available Start: 05-17-2022 End: 05-18-2022 ambulatory [...] dip stick/tabl et rgnt non-auto w/o micrscp Devenjuanjo Goode DO Work Phone: Start: 12-04-2023 End: [...] 12/23/2024 Start: 12-03-2024 Tobacco Screening Tobacco Screening [facility] Start: 09-05-2024 Adult BMI Screening Adult BMI Screen ing [facility] Start: 01-01-2024 End: 01-01-2024 Patient encounter procedure 01/01/2024 11:00 AM EST Appointment [facility] [address] [place] [address] [facility] Start: 12-26-2023 End: 12-26-2023 Patient encounter procedure 12/26/2023 3:50 PM EST Routine [facility] [address] [place] [place] [address] Catherine Baeza, PA [address] [place], [place] [id number] Arrived [facility] Comment on above: Arrived Start: 12-26-2023 End: 12-25-2024 Strep B DNA probe, amplification Strep B DNA probe, amplification Lab Routine Third trimester Expected: 12/26/2023 (Approximate), Expires: 12/25/2024 [facility] Work Phone: Comment on above: Expected: 12/26/2023 (Approximate), Expires: 12/25/2024 Start: 12-25-2023 End: 12-25-2023 Patient encounter procedure 12/25/2023 3:50 PM EST Routine [facility] [address] [place] [place] [id number] Catherine Baeza PA [address] [place] [address] [facility] Start: 12-12-2023 End: 12-12-2023 Patient encounter procedure 12/12/2023 9:30 AM EDT Routine [facility] [address] [place] [id number] Deven Goode DO [address], [place] [id number] [facility] Start: 10-20-2023 Influenza vaccination Influenza Vacc ine [facility] Start: 10-20-2019 Influenza vaccination Flu vaccine (# 1) [place], [place] Start: 2013 Screening for malign ant neoplasm of cervix Pap Smear [facility] Start: 06-01-2011 DTaP,Tdap and Td Vaccines (1 - Tdap) DTaP,Tdap and Td Vaccines (1 - Tdap) [facility] Start: 2010 Adult BMI Follow Up Plan Adult BMI Follow Up Plan [facility] Start: 2004 [facility] identified in Urine by Culture Urine culture Microbiology Routine Dysuria Ordered: 11/27/2023 [facility] Work Phone: Comment on above: Ordered: 11/27/2023 Payers Date Payer Category Payer [facility] BCBS [id number] 2022 [facility] Managed Care - Other ANTHEM [id number] 2022 Unknown BCBS BCBS [id number] [id number] 2022-Present [phone] [address] [place] [address] [id number] 2022 Unknown [id number] 1992 Unknown [id number] 2.16.840.1.096623.3.579.2. 593 1992 Unknown [id number] 2.16.840.1.707590.3.579.2. 593 1992 Unknown [id number] 2.16.840.1.790251.3.579.2. 1258 1992 Unknown [id number] 2.16840.1.165148.3.579.2. 1258 1992 Unknown [id number] 2.16.840.1.175973.3.579.2. 1258 1992 Unknown [id number] 2.16.840.1.442651.3.579.2. 1258 1992 Unknown [id number] 2.16.840.1.413530.3.579.2. 9 1992 Unknown [id number] 2.16.840.1.115971.3.579.2. 1258 1992 Unknown [id number] 2.16.840.1.408713.3.579.2. 1258 1992 Unknown [id number] 2.16.840.1.429110.3.579.2. 1258 1992 Unknown [id number] 2.16.840.1.867963.3.579.2. 1258 1992 Unknown [id number] 2.16.840.1.800909.3.579.2. 1258 1992 Unknown [id number] 2.16.840.1.920408.3.579.2. 1259 1992 Unknown [id number] 2.16.840.1.534450.3.579.2. 6 1992 Unknown [id number] 2.16.840.1.949033.3.579.2. 6 1992 Unknown [id number] 2.16.840.1.698729.3.579.2. 6 1992 Unknown [id number] 2.16.840.1.127057.3.579.2. 1286 1992 Unknown [id number] 2.16.840.1.339468.3.579.2. 6 1992 Unknown [id number] 2.16.840.1.897545.3.579.2. 1286 1959 Unknown [id number] Social History Date Type Detail Facility [facility] [place] Start: 1990 Sex Assigned At Not on file [place] Start: 07-30-2023 End: 09-06-2023 Tobacco smoking status ALIS Never smoked tobacco [facility] Start: 07-30-2023 End: 09-06-2023 Tobacco use and exposure Smokeless tobacco non-user [facility] Start: 07-30-2023 End: 12-04-2023 History of Social function [facility] Start: 07-30-2023 End: 12-04-2023 Tobacco use panel [facility] Start: 05-01-2023 [facility] Start: 12-04-2023 Alcoholic beverage intake Ex-drinker (finding) [facility] Within the past 12 months we worried whether our food would run out before we got money to buy more. Never True [facility] Start: 08-15-2023 Sex Female (finding) [facility] Clinical Notes 04-21-2020 to 12-26-2023 DEMARCUS Ross [...] Diagnosis Date ADHD (attention deficit hyperactivity disorder) ([facility]) HISTORY PAST MEDICAL HISTORY SOCIAL HISTORY Past Medical History: Diagnosis Date ADHD (attention deficit hyperactivity disorder) ([facility]) Social History Tobacco Use Smoking status: Never [...] of: DEMARCUS Ross documented in this encounter [facility] 12-23-2023 Miscellaneous Notes CALLED PT AND LEFT A MESSAGE FOR HER TO MAKE A THIRTY MIN GROWTH U/S WITH MFM IN [place] OR HERE AT [facility]. THANK YOU LOYDA documented in this encounter [facility] 12-23-2023 Telephone encounter Note CALLED PT AND LEFT A MESSAGE FOR HER TO MAKE A THIRTY MIN GROWTH U/S WITH MFM IN [place] OR HERE AT [facility]. THANK YOU LOYDA [facility] 12-12-2023 History of Presen t illness Narrative [...] Diagnosis Date ADHD (attention deficit hyperactivity disorder) ([facility]) HISTORY PAST MEDICAL HISTORY SOCIAL HISTORY Past Medical History: Diagnosis Date ADHD (attention deficit hyperactivity disorder) ([facility]) Social History Tobacco Use Smoking status: Never [...] nursing note reviewed. Exam conducted with a motorcycle subassembly repairer present. Vitals: Estimated body mass index is [...] antibiotic for UTI. Patient voiced that at [facility] they discussed extra fluid & reassurance given [...] Deven Goode DO documented in this encounter [facility] 12-09-2023 Miscellaneous Notes I LEFT A MESSAGE FOR PT TO CALL ME, I WILL CALL PT BACK TO SCHEDULE HER FOR A GROWTH U/S, ALSO A VIDEO VISIT WITH ONE OF THE DRS documented in this encounter [facility] 12-09-2023 Telephone encounter Note I LEFT A MESSAGE FOR PT TO CALL ME, I WILL CALL PT BACK TO SCHEDULE HER FOR A GROWTH U/S, ALSO A VIDEO VISIT WITH ONE OF THE DRS [facility] 12-06-2023 Miscellaneous Notes I LEFT A MESSAGE FOR PT TO CALL ME SO WE CAN SCHEDULE A GROWTH U/S. PT THINKS SHE ONLY NEEDS U/S AT PRIMARY OB OFFICE. CATHERINE Shahid SAID SHE NEEDS TO COME HERE. THANK YOU documented in this encounter [facility] 12-06-2023 Telephone encounter Note I LEFT A MESSAGE FOR PT TO CALL ME SO WE CAN SCHEDULE A GROWTH U/S. PT THINKS SHE ONLY NEEDS U/S AT PRIMARY OB OFFICE. CATHERINE Shahid SAID SHE NEEDS TO COME HERE. THANK YOU [facility] [employer] [facility] 12-04-2023 History of Presen t illness [...] mouth in the morning., Disp: , Rfl: [id number] acid ( 19) 29 mg iron- 1 [...] ALYSIA LEE MD documented in this encounter [facility] 11-27-2023 History of Presen t illness Narrative [...] Diagnosis Date ADHD (attention deficit hyperactivity disorder) ([facility]) HISTORY PAST MEDICAL HISTORY SOCIAL HISTORY Past Medical History: Diagnosis Date ADHD (attention deficit hyperactivity disorder) ([facility]) Social History Tobacco Use Smoking status: Never [...] Patient scheduled for US NEXT WEEK WITH [facility], orders for nst and bpp sent for starting Orders Placed This Encounter Procedures POCT urinalysis dipstick manually resulted Follow Up: Patient is to return to office in 2 weeks for routine OB appointment. Documented by Leah Mason on behalf of: DEMARCUS Ross documented in this encounter [facility] 08-16-2020 Note DATE OF [...] complications. Course: Without complications. Sukhdeep Schaffer MD, [facility] Dictated: 08/13/2020 #[id number] Typed: 08/15/2020 #[id number] cc: Sukhdeep Schaffer MD, [facility] Comment on above: Result Comment: Elec tronically Signed By: Karime MACEDO, Sukhdeep Olivera\.br\Date and Time Signed: 08/16/20 08:09 EDT 08-05-2020 Note The following Patien t Education Materials have been given to the patient: EducationMaterial [facility] 08-04-2020 Note Patient: LAZARO MYLES [...] Attention deficit hyperactivity disorder / SNOMED CT 5312433975 / Confirmed Chronic fatigue syndrome / SNOMED CT 15563220 / Confirmed Depression during / SNOMED CT 3294781917 / Confirmed Insomnia / SNOMED CT 452145628 / Confirmed Obesity / ICD-9-CM 278.00 / Possible Obesity complicating , third trimester / SNOMED CT 5149034823 / Confirmed Ovarian cyst / SNOMED CT 820686551 / Confirmed / SNOMED CT 456546614 / Confirmed labor / Patient Care / Confirmed Supervision of high risk in third trimester / SNOMED CT 08265606 / Confirmed Histories History History (1,0,0,2) # [...] 3 days Wt: 3390 g Hospital: -- [facility] Labor: 5 hr 55 min Child's Name: -- Baby's Father: -- Complications: None Complications: None Family History: Hypertension Father Mother Diabetes mellitus type 2 Father Procedure history: No active procedure history items have been selected or recorded. 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 Home/Environment Lives with Children, Significant other. [...] hearing, Oral mu (more content not included)... [facility] Comment on above: Result Comment: Elec tronically Signed By: LAURA MACEDO, Funmilayo Ryan\.br\Date and Time Signed: 08/04/20 13:03 EDT 07-31-2020 Note The following Patien t Education Materials have been given to the patient: [facility] 07-26-2020 Note The following Patien t Education Materials have been given to the patient: [facility] 07-11-2020 Note HOSPITAL REGULATIONS : [...] for further cervical progression. Sukhdeep Schaffer MD, [facility] Dictated: 07/08/2020 #[id number] Typed 07/08/2020 #[id number] cc: Sukhdeep Schaffer MD, [facility] Comment on above: Result Comment: Elec tronically Signed By: Karime MACEDO, Sukhdeep Olivera\.br\Date and Time Signed: 07/11/20 07:40 EDT 07-08-2020 Note The following Patien t Education Materials have been given to the patient: [facility] 04-21-2020 Note The following Patien t Education Materials have been given to the patient: [facility] Evaluation note Diagnosis 32 weeks gestation of Third trimester state, incidental Dysuria [facility] Diagnosis Obesity affecting in second trimester, unspecified obesity type- Primary Polyhydramnios, antepartum, single or unspecified fetus [facility] Diagnosis Third trimester state, incidental 34 weeks gestation of Accessory placenta, third trimester documented in this encounter [facility] Healthcare[facility] note* Diagnosis Polyhydramnios, antepartum, single or unspecified fetus- Primary Lymphedema Other noninfectious lymphedema Family history of congenital anomaly Family history of congenital anomalies [facility] Diagnosis Third trimester state, incidental 36 weeks gestation of documented in this encounter [facility] HealthcareInstructionsNot on filedocumented in this encounterProMer[facility] SystemInstructionsNot on filedocumented in this encounterProMercy Health St[facility] SystemInstructionsNot on filedocumented in [facility] Summary Purpose Family History No Family History Records FoundNo Family History Records FoundNo Family History Records FoundNo Family History Records Found Advance Directives No Advanced Directives Records FoundNo Advanced Directives Records FoundNo Advanced Directives Records FoundNo Advanced Directives Records Found Additional Source Comments INFORMATION SOURCE (unrecogn ized section and content) DATE CREATED AUTHOR 09/15/2020 [facility] DATE CREATED AUTHOR AUTHOR'S ORGANIZ ATION 06/29/2022 [facility] DATE CREATED AUTHOR AUTHOR'S ORGANIZ ATION 01/03/2024 [facility] EPIC DATE CREATED AUTHOR AUTHOR'S ORGANIZ ATION 01/03/2024 [facility] Reason for Visit (unrecogniz ed section and [...] BE BASED ON THE PRIMARY CLINICAL RECORDS. [facility] [employer] provides no warranty or guarantee of the accuracy or completeness of information in this document.
--- NOTE | 2024-01-07 18:26 | US_ITS ---
[address] [address] Patient Name: MYA CASTANEDA MRN: [id number] date: 1990 Sex: F Assigned Patient [facility] Current Patient Location: Accession/Order Number: [id number] Exam Date: 01/07/2024 18:32 Report Date: 01/08/2024 07:21 At the request of: ROCK HARRISON Procedure: US OB BPP w non-stress EXAMINATION: US OB BPP w non-stress HISTORY: EXCESSIVE GROWTH AFFECTING O36.60X0 COMPARISON: No relevant comparison available. TECHNIQUE: Ultrasound biophysical profile was performed in the radiology department. non-reactive stress testing was performed by nursing staff in the birthing center. FINDINGS: BREATHING MOVEMENTS: 2 GROSS BODY MOVEMENTS: 2 TONE: 2 QUALITATIVE AMNIOTIC FLUID VOLUME: 2 PRESENTATION: CEPHALIC HEART RATE: 138.46 bpm AMNIOTIC FLUID VOLUME: 12.4 GESTATIONAL AGE: 37 weeks 6 days US/US OB BPP w non-stress IMPRESSION: Total biophysical profile score: 8 Electronically authenticated by: IRENE ZUÑIGA Date: 01/08/2024 07:21
[2024-01-07 18:57] VITALS: BP 119/80; PULSE 85
== END 2024-01-07 19:25 | disposition home or self-care (01) ==
LOC: US 09:11 → FBC 18:24
PROVIDERS: Visit Provider Obstetrics & Gynecology
DX: O36.63X0 Maternal care for excessive fetal growth, third trimester, not applicable or unspecified (principal); Z3A.37 37 weeks gestation of pregnancy
CPT/HCPCS: 76818

== ENCOUNTER 2024-01-15 05:05 | Inpatient (IN) | payer BC, SELFPAY ==
[2024-01-15] VITALS (31 sets, daily range): BP systolic 94–130; BP diastolic 50–75; PULSE 64–107; TEMP 36–36.6
--- OUTSIDE RECORDS SUMMARY | 2024-01-15 05:08 | XMS_ITS | CCD ---
Author Organization [facility] Care Team Providers Care Forestry Support Specialist Name Role Phone Unavailable Primary Care Provider Unavailabl e RUSSEL ., DR WILKERSON Admitting Unavailable RUSSEL ., DR WILKERSON Attending Unavailable RUSSEL ., DR WILKERSON Consulting Unavailable DANIEL, DR IRENE Dee Consulting Unavailable RUSSEL ., DR WILKERSON Attending Unavailable RUSSEL ., DR WILKERSON Admitting Unavailable RUSSEL ., DR WILKERSON Consulting Unavailable Unavailable Primary Care Provider Unavailabl e Unavailable Primary Care Provider Unavailabl e RUSSEL, DEVEN R Referring Unavailable MOUSSA, HIND NADIM Attending Unavailable LOVECEZAR OSORIO, JOSE LRINKELLIE Referring Unavaila ble RUSSEL, DEVEN R Referring Unavailable MARTINEZ, MARINA Attending Unavailable RUSSEL, DEVEN R Referring Unavailable ALYSIA LEE Attending Unavailable RUSSEL, DEVEN R Referring Unavailable RUSSEL, DEVEN R Referring Unavailable RUSSEL, DEVEN Attending Unavailable LADONNA CEBALLOS Attending Unavailable RUSSEL, DEVEN Attending Unavailable JADON, CATHERINE Attending Unavailable RUSSEL, DEVEN Attending Unavailable RUSSEL, DEVEN Attending Unavailable JADON, CATHERINE Attending Unavailable RUSSEL, DEVEN Attending Unavailable JADON, CATHERINE Attending Unavailable JADON, CATHERINE Attending Unavailable JADON, CATHERINE Attending Unavailable Medications Current Medications Medication [...] 7 days. 21 capsule 11/27/2023 12/04/2023 Active [id number] acid ( 19) 29 mg iron- 1 mg tablet,chewable (5 sources) [id number] acid ( 19) 29 mg iron- 1 mg tablet,chewable Chew 1 tablet and swallow in the morning. Active Vit-Fe Fumarate-FA ( Vitamin Plus Low Iron) 27-1 MG tablet (17 sources) take 1 tablet by mouth once daily Vit-Fe Fumarate-FA ( Vitamin Plus Low Iron) 27-1 MG tablet Take 1 each by mouth 1 (one) time each day at the same time Active Vit-Fe Fumarate-FA ( Vitamins) 28-0.8 MG tablet (17 sources) Start: 07-08-2023 End: 07-07-2024 take 1 tablet by mouth once daily Vit-Fe Fumarate-FA ( Vitamins) 28-0.8 MG tablet Indications: First trimester Take 1 tablet by mouth Daily 30 tablet 07/08/2023 07/07/2024 Active Completed/Discontinued Medications Medication Drug [...] trimester] Onset: 09-06-2023 Chronic Other complications of (16 sources) Placenta succenturiata; Translations: [Other malformation of [...] 09-06-2023 Chronic Other and delivery including normal (20 sources) Third trimester ; Translations: [Encounter for [...] of ] 11-27-2023 Episodic Residual codes; unclassified (16 sources) Gestation period, 34 weeks; Translations: [34 weeks gestation of ] Onset: 12-12-2023 12-12-2023 Episodic Residual codes; unclassified (2 sources) FH: Congenital anomaly; Translations: [Family history of other congenital malformations, deformations and chromosomal abnormalities] 12-24-2023 Episodic Residual codes; unclassified (2 sources) Gestation period, 36 weeks; Translations: [36 weeks gestation of ] 12-26-2023 Episodic Residual codes; unclassified (4 sources) Gestation period, 37 weeks; Translations: [37 weeks gestation of ] 01-01-2024 Episodic Residual codes; unclassified (2 sources) Gestation period, 38 weeks; Translations: [38 weeks gestation of ] 01-13-2024 Episodic Unclassified (1 source) 1st daughter born [...] Range Facility Urinalysis macro (dipstick) panel (U)on 01-13-2024 Bilirubin, UA Negative Negative - 4(70) +++ mg/dL [facility] Blood, UA Negative Negative - 50 [place]/mcL [facility] Clarity, UA Clear [facility] Color, UA Yellow [facility] Glucose, UA Negative Negative - 1999(110) ++++ mg/dL [facility] Interpretation and review of laboratory results Normal [facility] Ketones, UA Negative Negative - 160(16) ++++ mg/dL [facility] Leukocytes, UA Negative Negative - 500+++ Saeed/mcL [facility] Nitrite, UA Negative Negative - Positive [facility] pH, UA 6.5 5 - 9 [facility] Protein, UA Negative Negative - 1999(20) ++++ mg/dL [facility] Spec Grav, UA 1.02 1 - 1.03 [facility] Urobilinogen, UA 0.2 0.2 - 12 mg/dL [facility] Urinalysis macro (dipstick) panel (U)on 12-26-2023 Bilirubin, UA Negative Negative - 4(70) +++ mg/dL [facility] Blood, UA Negative Negative - 50 [place]/mcL [facility] Clarity, UA Clear [facility] Color, UA Yellow [facility] Glucose, UA Negative Negative - 1999(110) ++++ mg/dL [facility] Interpretation and review of laboratory results Normal [facility] Ketones, UA Negative Negative - 160(16) ++++ mg/dL [facility] Leukocytes, UA Negative Negative - 500+++ Saeed/mcL [facility] Nitrite, UA Negative Negative - Positive [facility] pH, UA 6.5 5 - 9 [facility] Protein, UA Negative Negative - 1999(20) ++++ mg/dL [facility] Spec Grav, UA 1.015 1 - 1.03 [facility] Urobilinogen, UA 0.2 0.2 - 12 mg/dL [facility] Urinalysis macro (dipstick) panel (U)on 12-12-2023 Bilirubin, UA Negative Negative - 4(70) +++ mg/dL [facility] Blood, UA Positive Negative - 50 [place]/mcL [facility] Comment on above: trace Clarity, UA Clear [facility] Color, UA Yellow [facility] Glucose, UA Negative Negative - 1999(110) ++++ mg/dL [facility] Interpretation and review of laboratory results Abnormal [facility] Ketones, UA Negative Negative - 160(16) ++++ mg/dL [facility] Leukocytes, UA Negative Negative - 500+++ Saeed/mcL [facility] Nitrite, UA Negative Negative - Positive [facility] pH, UA 7 5 - 9 [facility] Protein, UA Negative Negative - 1999(20) ++++ mg/dL [facility] Spec Grav, UA 1.02 1 - 1.03 [facility] Urobilinogen, UA 0.2 0.2 - 12 mg/dL [facility] Glucose random or fasting- P OCTon 12-04-2023 External Glucose Fasting Or Random (Fbs) 126 [facility] POCT Hemoglobin A1con 2023 HbA1c (Bld) [Mass fraction] 5.1 % 4 - 7 % [facility] Urinalysis macro (dipstick) panel (U)on 11-27-2023 Bilirubin, UA Negative Negative - 4(70) +++ mg/dL [facility] Blood, UA Negative Negative - 50 [place]/mcL [facility] Clarity, UA Cloudy [facility] Color, UA Yellow [facility] Glucose, UA Negative Negative - 1999(110) ++++ mg/dL [facility] Interpretation and review of laboratory results Normal [facility] Ketones, UA Negative Negative - 160(16) ++++ mg/dL [facility] Leukocytes, UA Negative Negative - 500+++ Saeed/mcL [facility] Nitrite, UA Negative Negative - Positive [facility] pH, UA 7.0 5 - 9 [facility] Protein, UA Negative Negative - 2000(20) ++++ mg/dL [facility] Spec Grav, UA 1.025 1 - 1.03 [facility] Urobilinogen, UA 0.2 0.2 - 12 mg/dL [facility] PAP ACOG PANEL 2: 21 to 29on 05-24-2022 . . [facility] Comment on above: Performed By: #### [id number] #### [facility] [address] [place] [address] Dr. Michael Garrett Age Gdln ACOG Testing - [facility] Comment on above: Performed By: #### [id number] #### [facility] [address] [place] [address] Dr. Michael Garrett DIAGNOSIS: Comment [facility] Comment on above: Result Comment: NEGA TIVE FOR INTRAEPITHELIAL LESION OR MALIGNANCY. CELLULAR CHANGES ASSOCIATED WITH INFLAMMATION ARE PRESENT. Performed By: #### [id number] #### [facility] [address] [place] [address] Dr. Michael Garrett Methodology: Comment [facility] Comment on above: Result Comment: This liquid based ThinPrep(R) pap test was screened with the use of an image guided system. Performed By: #### [id number] #### [facility] [address] [place] [address] Dr. Michael Garrett Note: Comment [facility] Comment on above: Result Comment: The Pap smear is a screening test designed to aid in the detection of premalignant and malignant conditions of the uterine cervix. It is not a diagnostic procedure and should not be used as the sole means of detecting cervical cancer. Both false-positive and false-negative reports do occur. . Performed By: #### [id number] #### [facility] [address] [place] [address] Dr. Michael Garrett Performed by: Comment Normal [facility] Comment on above: Result Comment: Francisco Otero, Transplant Immunologist (ASCP) Performed By: #### [id number] #### [facility] [address] [place] [address] Dr. Michael Garrett Reflex Criteria: Comment Normal [facility] Comment on above: Result Comment: The HPV DNA reflex criteria were not met with this specimen result therefore, no HPV testing was performed. . Performed By: #### [id number] #### [facility] [address] [address] [address] Michael Garrett Specimen adequacy: Comment Normal [facility] Comment on above: Result Comment: Sati sfactory for evaluation. Endocervical and/or squamous metaplastic cells (endocervical component) are present. Performed By: #### [id number] #### [facility] [address] [place] [address] Dr. Michael Garrett US PELVIS AND TRANSVAGon [...] [facility] Center Nursing Assessmenton 021 Nursing Assessment [id number] #[id number]:127 Normal [facility] Coding Summary.on 08-16-2020 Coding Summary. CD:[id number] Gh0bWw+PGhlYWQ+PE1FV POhG32urQDgcE0CW5xQB Z6WKFMHPTKUZH8MRM8nb SU0ZRpsT7WcsiBv YmyzzNWfTN03AVg7QDR6 oVcgUJluzG8woKIsH0a7 JkOoZI94fA51UTorHEIm PfB2KwAezrmtlOPb F5ggTcGquEDuOjo+PHRh YmxlIHdpZHRoPScxMDAl FqKkuJtnZG2fBg6mMJZy LWNvbGxhcHNlOiBj r2lfLFUsAHzfNT8lwEvq K3FbjZC7JDZou9e8Bc42 dHI+DILaPWN5gSfsZWes v511WiKbc9riQJF2 jXSxZHhySUP9G75hx6P6 WCWqGTQcMSQ0qKC5eX0p jFxfmpfbT9UwpCUfCyD9 ZHR3oTJrvL3exBrl dbjzbJ4rQwa+J49JEZ6P SCYAQI9OSow3H7MwZrnr dHI+TA13ZCOfUQ90aERk pKPnq4dchPm5FbHz KRCkRFX3rKmqLFaxp9Ko COOaM09bxAUfi8K5BVNd bHbfwVLiQrNrfRO6bZ0b DJvtrwuql9iwrrvk Amikm5lhdo42nD09G57x SRldCCKuSEJ2ELOkVFIg aWkhtm7vkI7jSh6+IDxj t2fgv7zyqJw1HvGo BMYcskCusHobNWN6c3As Py78N5WkcDghs3ZmXkt9 ki12yEKyc1W0dKF7YNgk LCBekQ8nWYtwClA9 MGScXmGnzJ48gHGfNSyd Cz1pkPvwlFrsNN2cUQXs dywpBTAktS0pHCBdcLSu nBytSW9hOODgbyig i498AoMbGVT1ZIQniTZi Y5DgoY5eAkYzGMDeRLVn E9QnqMWtCZglD645EJjf HhW5ZOZydcFfK3Lc EUAfeFbkApZ7v9Q7Tt3C n6FyxbjsJZF0FPfuWBH5 GjE6XwIwYuP7P9MlIrz4 BOXdfDxuZZ5bA4Wn FHHwwycbwqtpjTV8YVKs GCRufY19jEUnUHpvEr4k w3Z9q417FACvIEMraU22 Io6puKohCGIzyPKM bH8vpyciq8xsnvpcTaRp CXXoTEu6LEc2UOCnkDhr OfPdGQM7QhV6BFX4gBPf pZ1gfWcfmhmzyK2o Oyc+S14hgR1vPWE0HSO4 gakfBFDuovClAS36LZ53 N2ThRsdmyZUjxCU+PGRp fqNpdFiuQK7jKiZt u9fuy3VzHIqsY3JcKENi UGdgTdx1YNNuEAU7vMY2 wZ5pTFCmRRlux1G2rSV3 P7XvuyXprm3jf7lc TSYoIBkaO12qpPAri4Q9 ALEwsED9EOXhaUbjMdPg kW77Pmk+DRUcfAcou5Gu Oxtxh6mps8ykgVx7 IjMwJSIgdmFsaWduPSJ0 d1HdYu26E64cEFjnHKEg MYZdLOYpSRWfpJdtzf2t xZ0oYn2+PGNvbCB3 cJN3eB2dMUYhIpE4YXua P232YeTfrJItZgflx1zl c6erbWr9YgIjRHBawpWo rUtfXWV4z7MbOx33 S78eUAavSBJvYPSeQOXa DXJxjEghen3iqN1dYl2+ HC3pj8tdfb23eX23lYL+ GCApRMZ4dUwmFIrz WFIpuZ9iAIjjHzH6VMYs HzXdrL63dYTzXIooTp2k cZdqnTpzGP7qZHQstdqv w117CeDac0ybGADt bQHzGXpeQNB8V71ne7G1 MOSnCHNiDTS9uPN4fP9j bGlnbjogbGVmdDsgdmVy qDynKFtyYUyuJ587 IHRvcDsnPlBhdGllbnQg YoRaABu2M0KoNgw9RJRf vQpfJP8ctDAiWJleYu6m wJqpxOqgTB4nSROz opnuq567IbSgi1ziVPGs sXZhYMttMUK8A90nr8A1 BXSySSWsNMO9uNM6dN2b bGlnbjogbGVmdDsg rlCttJguMBikFCgqR544 IHRvcDsnPkJpcnRoIERh wTV6YE78TQ88kUQbl4J1 bCA7K1EiJEZoxkuj lluddCH8LHVzZWXxpK03 Ys9cpEqeIs8mVJHwHWC2 SIDbmYYwY4EpjO9yXuWx QRRpLISnU4PhdTXj SDiqU690UOxcLdT2IJHv ecAkI5MaMGTwlJnfRbE0 w1H8Vd5HE8J5AG66KP98 fOEox5W8gHL8K9Pv IJTdzoulhtghrWN6GHAw HFQpjV23Uc3lvMxaXa6b HBUzXMS5QLSukZQvQ3Uw pK1qJaBtYGHbSVFp W7FhnXUeUGlvS390ILtc YaO3EJDntfKxY2GaHYEb zDjbTpY6s7N4Ql5OAIf1 KY53FO87oNIeg6Y9 dFW0J2DnBKSwjjhokeuj pAE4UZRnOFEukX23Hv6k iPjyLn1eSMVcVIU1XVUs sQQlH6IlaO1zUwNn EEXzABEuA0IhaBBlRNyj I944ALcbLbW4HCZlfdBb U4IxBAYxzYkcZzG4k7H4 Wk7BPSIfHZ42LII6 oQB6NK73NW00T0SnFxde dGFibGU+PHRhYmxlIHdp ZHRoPScxMDAlJyBzdHls CL9vCs8cFRGgTKCy wPvgqQDjWxQov8naKMKv TMtuEH2uhUtoQ7SfgAA0 DVDxo9q2El56T37hN7Zk dXA+WHHrwBG1rWX0 yR6bEfHeEoB9OUgyE800 OdDztEXmGcreh5zom0rp xGi7UzO4WCYbxnDysQar HAG1u6LkHz24T99s IHdpZHRoPSIxNSUiIHZh lVbosf7uaC1iHq4+PGNv xGU3kXT8cA8aKmZuIsU9 FOkaP601IjYgtUVo Zektg5liq6unfKw8AhCg ITRwrrGgpRdlOKC5m0Lx Mt78X9SieLtva1BzUtm1 dt60mXGdv8O5kQG1 L8EyGOYvtookuRCkdLzg OS1eSKYwmjieCGIjeR9x BBUmE8y0QdBsThD8WLit M0DqdiY0PFDwcIOh UDwfDFT6O07gq1X3OXEe AENaEPF9iNP2aX1beKai bjogbGVmdDsgdmVydGlj JGflILqaS865LVCj eBnlTQXzkG8sOTYfkGMj lEfsTC5yQWOkpikeImAN HzpGXh2eJORIBxEQG7Ze TDwvdGQ+PHRkIHN0 oSzcXIhsAPQlyO2bVVWj H1f4EqXwUdP1JArzA0Jz LWFjsahiGz13vG7nMcQg ZgY3DBcyV7NaeiV5 IYExaHXbVCjmEGC7V40n g0Y8HGCoKBImZEG0bTZ0 cB7axTcfgifpfZWemTkd dmVydGljYWwtYWxp L880GRSbxKhnBaQ6SxUy SnM1EEM2P1WpEcx5FPEp kNjeIR2mcZUxZHimZi7k pAzdrMerTX5eKWNu fisaLMQfoI4jGXEvtJQt rCekQG7eMIApskdqr061 MvAsFFA3ZENwaZEsH6Vl tP7nOkRaHNEwMZSj V3ZhiNKaFYlmR028RQhd DfP9RRFlaxSjK5UrXBBo uTxpIlE1k3F0Gw7nAPNO ZWFyczwvdGQ+PHRk HTS0gSmeQNujLIYjiX7c PDVsB6q7OyCqPdH6WNdf V3SjKHAmtgxfKi76aT0a CxIhLiB9ZDhdR6Gs ykQ9MRCmsXXxFFxgGRM7 M33su9U0DCDbTHXrKPZ9 oSL8sE9kcXoktdeniBDg dDsgdmVydGljYWwt UIjcE846QRScaFygLgTt bWFsZTwvdGQ+PHRkIHN0 oLjxZZdiXILxeV6tXLPd B1h9OqKmJnH0SBor L1EjLOVabrsoOt59vK5y BkZlNeL0YQjsI4NgzgS9 XUTtiNNaDNkmFOC0X57x g9M4WPGsOHHeRAQ2 jKV7pR4baExymyeenVOe dDsgdmVydGljYWwtYWxp U426KMZruGspOq59vRCi hGykqxT5N4YbDvxg dHI+JY98DQZeVQ96qDEt wKLmx8xmjWy7JpXcZMGh RNT7wHkbEZvnu6LdHYMz A13keBLxv4F2LEOj jWauhMYmZsUsdWC1iX9p OEdzewvvg1apaumaUkvi z9dpcc22hX29G44hVSzi ZHRoPSIzMCUiIHZh tUrekv3nsI3nEa5+PGNv rFY5mFQ7pE7yHmNfLfM0 BClaT947KqKvkZTvVgfn d4ngh1pniOi4PrYn GYJpuzRmyEtwBTG0k6Ym Yj41O56dZNraSWGfPOUh SLIwOQMpdGdcwu6jnW9a Ii8+PM3ro2vdcx93 gZ81wIB+FNEtOZC2fPor CWscHDOxnO6vLKufDqJ7 TAAdAiCfzQ03kKZuVUzr Rm0bvWbqjIedUR8x GZNvfatji901SsMtp6vp NNNxfVLyFJmlOVH9V63r x6B6ZBEaSMQlEQY9bVM9 wC6anTfmupzrtYIe dDsgdmVydGljYWwtYWxp U416LFEkmZyzJwJauICj I0gnzmJXOB3rUkrqbDR+ OEUrRTT0uCkgAWud JVVumO2eSASxV9w7PwBh RoJ7RKxjP8GajkI9NPOs gTJbSCDhjSHHcH1inuus n5ttoupzMiWgOKTz TBz7VUn6GERviRwvVaLw VXX8HcN4IJA5fCDctD5s uXvhcyqxeY4mYyw+RklO OjwvdGQ+PHRkIHN0 bAgfYSflKCIzcJ1nKFTh J7y6TaTfAsL8GEjtC8Ux lgY5YVMfyIRoLCKoyIMF pC9knovrg2zacyhr AfTxJWZzIVx6BWl5NQPp yKagIgGoEVC1RwW0UUV8 kNCjwA8clXppzvvsjK0p Oyc+TVJOOjwvdGQ+ WCXsUVX6mTyaFUskELEi zK0gYFWiT2j7MrIuVuT9 TSfmM6NftoK1VLFwuFKl URCvgLHDqI3oundk n9ujpkrjLwMqFDRiYMt1 JJi4BKMgdVnyZbUfURO1 OaW5ENJ7sRSjuI9rfBsr axxncI1yYqy+UGF5 XZG7SZ33XE75H3PkIfsw dGFibGU+PHRhYmxlIHdp ZHRoPScxMDAlJyBzdHls UE4fFb1wGOWkARIb bGxh (more content not included)... Normal [facility] Coding Summary.on 08-15-2020 Coding Summary. [id number] Gh0bWw+PGhlYWQ+PE1FV EEcY07biDHsfT7BT9gXB J7MUHBGBCPYRU4OSH6pd HP6MRapS5TmxfJu UsseaDSjDJ50KOt6ZCT1 eZrvVNvuaZ0gfBWuU7m8 XyKePF45jN84IZpaKLOy AnT3TbBmgpgqnCXk C9feBpYcfBTxWew+PHRh YmxlIHdpZHRoPScxMDAl RtVlrPvlZJ2oPe9mXRFn LWNvbGxhcHNlOiBj s9aeDTRkUUwqYW5qeZhm S8PfgCJ5HAMpk4j8Dx82 dHI+DMSiNBW9dYebZTys b594WcCuu0hlYJY5 tUDzOXtpFTX8X89yu6C0 KEVrHTMfUSO7pPV1qL2z sAnjjucdJ3AsmDHiFvK3 IUX2cEPadZ1ptNzj kbyocU4rQbr+J33ROF4X IBSHRE2FGwc0J2JtEgks dHI+AW18UPSqAN52kQRu eXVda7axyTz2VzEz ZCEuECT8jYwiIQpcr1Km FPOeA34poBEui3A4VFDl tTrgmXHnGiBbcDL1fE6p KRfjcylyf1efgdut Jijzw2iuzs33kR40K43g RDnsFCZcSMD2CCEdQFFe uGmreo7hoK5gGc0+IDxj u7iri9nmiEj3AmOh FWHmdfAutUmrSGE6k7Cu Sg36B3CogZvdq8EzIjj8 ed11vFVlx5D6bFY2QYvc UCIepG5vTXqsIxP8 OVNhEiPwxP00wSWrAUle Vt1axWbexHvlPC5qLUPi fzekGHWdgV5kRSVwcLVe rQwbQQ9nUYAbtzpj c697OeHoMVX3IVNkzPHc C4DgnM6dKyThGRBrVFZf S3NpnHXdOLtaZ990MVhy AiK2ZQJztuHoS4Et OLLfdWibUmX3o6Q0Ar3D e7SwmnnvAME2BBpoUTW6 IpI2WlGsHeJ0S5BtHgz9 OMVypGuqHZ9jF2Fz JEQqagcnruwfjOP0PBOw GPTusN10aDWfIOwbOr6n s3E7b562NVTgKKOlsL77 Ts2ljVrzXLWiqLPB sG4kgtxom7uocqisJeJf XIOkEYe7GLc0HTQnsNkd XsWoQEB6AiJ1UGM8nJEx eG7lhXaxfgdmfQ7n Oyc+B09guR1fAZK3TBI4 cixjPJLympAkVZ71IU14 P2EzLpazaOZboJL+PGRp hpLyrVykDH8cKrJt r5dvx7CcAQlbX7LzEWIj TEakGfm8SWPrRKO6gFT4 iU7wLRFlLCvoo3Z8eDK3 X0ZjxgJzzt3dz9zm RMLfVIizQ03dnOVbj7P7 DXRgjUT8NISqlSriOdTx mS65Kvs+AGPejIqzl1Lu Gryry9jzu3pryDx2 IjMwJSIgdmFsaWduPSJ0 y5HqZy35F98dCWiaTCSp GFZaVBJkWOTxfOlwzs1a pS2xDg4+PGNvbCB3 aGH8vN7vWJUxOnZ2YNcr J178CsIgfSCxWvjia6ls m8cuzMm7LjPaIERswpGw aZoeHUU7j9NkMx43 K30uBFwpHXCyVCRoNJFn OSYftEpoot4idJ8pRd9+ TZ7lg1ynaw48qE87zMS+ ERBwMVX9tJyeDQjb SEHqqC2aIHcmExM1UGNs TtGnkX99lWAgODdfEp9h rAhryOtmYD1pQALbejlc s709UtYly6qtTSZz mLUxLGbbBPN0N52rq6Z9 BZWqQXCaNQJ3mAG0fD8t bGlnbjogbGVmdDsgdmVy tUceUHkbUJneS583 IHRvcDsnPlBhdGllbnQg GnHdWZw7Q5ByIvq6VPZt jXhlGH6baZIyZMnaTp8c eHyuyAtxXO3hEQPg vcghp576EjIrm8njQRSt wIBtCOnzEIK4N35ae5V1 CFLgMXCzOJY8eLC8bJ5x bGlnbjogbGVmdDsg eyBffHhnRMfyLOffX294 IHRvcDsnPkJpcnRoIERh qJG2BY13YT55yATbz2Y3 hWS4H2HgNNPaqkxb yquyoTB9OJQfYEMnqG91 Tp8hoAmfHr1zBQEtRGQ7 FNTmuFFoU4ZpyB8eYwDo PEPhLDUpZ8YqnPDr CVkwC102JMzzGyC4OVIc scZuV3PiQXCahGtnGvS9 s5G2Gs2SC1Q8ES05WW11 dUWit5C7zQS8U3Ei KVKbvzejynzxsUU7QECi OPOheS13Wc9fcZgtHm5u JVVfQBP4LFNkrLPzY3Kg qU1tSqZyFTOvVYHo B2WepDHtLPciB784PSel MqV7PCMxngIvY9QgYVRw pDefPiQ8t7Y8Cz5DOLm7 LZ08HU16aQJel0D4 ySJ2D9TtSFQewjesgmza lQT2SKUxUOBuiW94Pu3u nNfePn3wPZBkBBX5QOUm wOMgX3KrxU9qNtKr EZMuQXAtP5XdpJTzNPez U312SEcjNuO0MEVyqbOa L0KoQKVglHwnXkD2j4B4 Sn0FEXJqXX44HWG7 pAX5WE75TJ84C8FkHtfr dGFibGU+PHRhYmxlIHdp ZHRoPScxMDAlJyBzdHls WL4fWp4yCLZnZQAv nJsslOYmLfVjg4hrRSIc WTgrZH4ybTozR0JryGK2 ESQvu5v0Tq57Q02dI7Fz dXA+RIKodMT1sJM4 eR1lNmJnBdG3CTvfJ632 UnWtgNQkIbxve5xdn4dn uCi7YaU1UKUxxeSkxJbg GFS5i2OeLh00I07t IHdpZHRoPSIxNSUiIHZh bMpeaf4viF7rPa8+PGNv jPO8zNG6sT3cEzJhYfR6 CNxoY387QzVvqTSs Ycvcf5nqr5bnuKi3EoYs ZCGcvgUcmQfiQGK9q6Qd Gs19T8DcmPyyr1HrSjf8 eq89hCApy1Q7oML4 P8EuKPBocevkrOFxkJbg EW4bOWGlbijsTBEqlX2u YNThH7x0TnIyEiQ4DYrv S8DhvhG5WBEcyVWi ZZmjJXF1A30pz3B0OXZu YVOlVYA2lQB3aP5hvJfc bjogbGVmdDsgdmVydGlj JIqbHZpbQ252XHYv oXsyVDIthN9gNWHrwJQs rOfiRG3sPFAgtsfkJrLT BzuRQl3tUZQBGxCDI3Fg TDwvdGQ+PHRkIHN0 pXflVLvfEYKnlJ8lAPOm Q7o7DsYnEmL3JIccC6Gj HVFszhvwXp72aY2uHaAo TjQ0JFyuS4HxtmE9 GXBpwDAsXHvzRNF9A62f l2R7YZIhNOHkIPS3gTD0 dX2iqMrgeacsgOHypMmf dmVydGljYWwtYWxp K223AOKcxXazSgS6SxJf KcT0LOH9B6QsTcu7NMWc gTiuZP5guEIzMTbpPi8n oEnyuWatHL3aIJHa gfhjVRVmeW0bWTFvoXZd dVqeYR5rEPQbdfcqe857 LdTwBAE3FEUlrSVwA4Ks nG3iKdVeVEBiWBJy O8CyjXRmMIscX087WZzg TsX4BOFrybTdL9AyLWRa iZanLbU8v8F0Ce9bAPJH ZWFyczwvdGQ+PHRk WKE1yMawPCpyANKtiF6u SNYvT0c9VoTaQeK1JBgs U2HcEJXovcnpRh71cE0m XlRjKjZ8YMkoC8Ab gxB6ZWKyqJLqCUdcPJW6 U96lw0X9PMZiBHGdKTN1 dBJ5iG9wcXfucasgpOOp dDsgdmVydGljYWwt IEjtM188YZHsiYakBcIa bWFsZTwvdGQ+PHRkIHN0 fLlwNLwsTGZjzZ3mOKAb X1h9AlNqJiM8RSoy Z1WzPQPcuxpeVg32yQ1g JmWaLkV3PRatP2GaywN6 SRUrrRYyIQuuOGY0S63c k5V1OBCyPCSvYNA7 dPN1qX1zzJfrfjkymVRk dDsgdmVydGljYWwtYWxp C899HWSsrIifUnhyxXL4 aWVudDwvdGQ+PC90 zo09T8AnZetwRal9VERs MRJ2eTB8rN5cLWRgRRoe x8D9hKS0S5ZcbrUclm3o r9tdHDLwXYdxC26z gKJpr5H1IQAwoQY9EWLz eJxhJpVxvL50Pbu+PGNv jQjye0PqZafmc4duj0yc xRe8DzUmIOKzmiNv mQevIFK2s7RgQb27O60p IHdpZHRoPSIzMCUiIHZh hQzxsb0lzT6yRg5+PGNv sQB2aZV4aW6fFuOw TqW9BLcyJ001HjMbgEFz Hiosn4kwg9dozLf0WfWg OJIihgBtsLhxBCD7a9Tg Fh99K7TfyMlfa0Sa Hey0ck85cYKiu1Y0uBA5 Y3IxQEHtbxztzDSotDju UY0nXBCprvzjZONogS6p XOFqH5q2FfMxAnD3 RLppS6BovpM6KUCqdLXq EICjoQJAaY1copwjs0uy ebtuEgCxEZKfMJz4MVs6 LWFsaWduOiBsZWZ0 ElZ3FQQ2hHRktT7rmKog gvppnO9hVss+EJb1r7ke rAErIB2jbEJ7EP70OY87 uYDbr9F4qCN2V9Ac TFRdsbfjuwmjgIB6QIAa FENmbC83Wz0gkFfxOu2w CHWhUML5YQMepXTkZ6Ho aR5hHtYoXNDjHWBp N7SybSYlFCtqR070UAwq GsK5SOAzguQfN5YdHAQv lUekSoV1e7L8Mx0JIF08 BX02WV63tKLrw9C8 oPK6W8CtULNageprqlfs uFQ3ZKPvSVVyaT23Ck4m rGzuGx3kFCBjVRT2GKOv eLReB4PviY3bCzTf KRFoZCXuC6XihETsTBll M003AInzUgA7JRWfdnHx L2LzYYUfkFidIeW3d4C6 Zt8MJf14ED89KF16 fFAah4N0qNN6W4LgQDMh esndawwhpIC5JDXuTDOt mN35Ar2jdPuqRt0uXJXe XKE1YWRbqDMtZ9Hd rJ6wWqVePKZvFDBgV4Fr kHDuCRduV211IYggVqU2 UJSobpUyV6EzZVNktFub XkD4o6C9Aj5DFOvi unc1R3PoFucssGT+PC90 LMNmUF69jUFseHDge7cb bIo0ZxVsHVWyGII6wWuc YQnph6RoZCNrP77p bGFw (more content not included)... Normal [facility] Consent for Treatmenton 07-20 Consent for Treatment [id number] #[id number]:127 Normal [facility] General Message Officeon General Message Office --- --- --- --- - -- --- --- --- --- From: Ezekiel Richmond To: MYA MYLES Sent: 08/06/20 02:30:52 AM EDT Subject: Discharge Summary Ready to View A summary regarding your recent visit is available in the Documents section of your health record. Normal [facility] CBC w/Indiceson 08-05-2020 Erythrocyte distribution width (RBC) [Ratio] 15.1 % High 10.9-14.2 [facility] Comment on above: Performed By: #### 2 [id number], [id number] #### [facility] [address] [place] [address] Hematocrit (Bld) [Volume fraction] 26.0 % Low 34.0-46.0 [facility] Comment on above: Performed By: #### 2 [id number], [id number], [id number] #### [facility] [address] [place] [address] Hemoglobin (Bld) [Mass/Vol] 8.6 g/dL Low 12.0-16.0 [facility] Comment on above: Performed By: #### 2 [id number], [id number], [id number] #### [facility] [address] [place] [address] MCH (RBC) [Entitic mass] 26.3 pg Low 27.0-34.0 [facility] Comment on above: Performed By: #### 2 [id number], [id number], [id number] #### [facility] [address] [place] [address] MCHC (RBC) [Mass/Vol] 32.9 g/dL Normal 31.4-36.0 [facility] Comment on above: Performed By: #### 2 [id number], [id number], [id number] #### [facility] [address] [place] [address] MCV (RBC) [Entitic vol] 79.7 fL Low 80.0-100.0 [facility] Comment on above: Performed By: #### 2 [id number], [id number], [id number] #### [facility] [address] [place] [address] Platelet mean volume (Bld) [Entitic vol] 8.0 fL Normal 6.4-10.8 [facility] Comment on above: Performed By: #### 2 [id number], [id number], [id number] #### [facility] [address] [place] [address] Platelets (Bld) [#/Vol] 259.0 E9/L Normal 150.0-500.0 [facility] Comment on above: Performed By: #### 2 [id number], [id number], [id number] #### [facility] [address] [place] [address] RBC (Bld) [#/Vol] 3.3 E12/L Low 4.3-5.9 [facility] Comment on above: Performed By: #### 2 541929, [id number], [id number] #### [facility] [address] [place] [address] WBC corrected for nucl RBC Auto (Bld) [#/Vol] 10.2 E9/L Normal 4.0-11.0 [facility] Comment on above: Performed By: #### 2 [id number], [id number], [id number] #### [facility] [address] [place] [address] Discharge Instructionson Discharge Instructions [id number]#[id number]:127 Normal [facility] Inpatient Clinical Summaryon 08-05-2020 Inpatient Clinical Summary [address] [address] Clinical Summary Person Information Name: MYA MYLES [facility] Age: 30 Years : 1990 Sex: Female PCP: Chao Blackwell III, DO Marital Status: Single Race: White Ethnicity: Non- or Language: [place] Visit Id: Visit Reason: Speciality: Acuity: 1 PP Enc Type: Inpatient Med Service: Obstetrics Arrival: 08/04/2020 06:59:23 Discharge: 08/05/2020 17:20:00 Dispo Type: Home ([facility]) Address: [address] [place] [address] [address] [place] [id number] Provider Notes: Diagnosis: Depression during ; Obesity [...] Physician: Follow up: With: Address: When: Sukhdeep [place], [facility] [address], [place], [place] [address] [facility] (1) Within 6 weeks Comments: Call Dr if fever>100.5 F, heavy bleeding Call for any problems. Nothing in the vagina for 6 weeks Type Location Start Finish [facility] 09/15/2020 9:00 AM 09/15/2020 9:15 AM Confirmed Patient Education Information: ibuprofen 600 mg Tab Normal [facility] Inpatient Patient Summaryon 08-05-2020 Inpatient Patient Summary [address] [address] Patient Discharge Instructions PERSON INFORMATION [...] Follow up: With: Address: When: Sukhdeep [place], [facility] [address], [place] [address] Business (1) Within 6 weeks Comments: Call Dr if fever>100.5 F, heavy bleeding Call for any problems. Nothing in the vagina for 6 weeks In the event that this physician does not participate in your insurance network, please consult with your insurance company to find a nearby participating provider. Type Location Start Finish State [facility] Saeid 09/15/2020 9:00 AM 09/15/2020 9:15 AM Confirmed Comment: JUSTINO Burton VANESSA L, have received the attached patient education materials/instructio ns and have verbalized understanding. Patient Signature Date Clinican/Nurse Signature Date MEDICATION LIST New Medications [id number] [address], [place] [id number], [phone] ibuprofen (ibuprofen 600 mg Tab) 1 Tablets By Mouth every 6 hours. Refills: 0. Last Dose: Next Dose: Medications to Continue with No Changes Other Medications multivitamin, ( Multivitamins) 1 Tablets By Mouth every day. Last Dose: Next Dose: Pharmacy Information: [facility] PATIENT EDUCATION INFORMATION Instructions: Medication Leaflets: ibuprofen [...] younger th (more content not included)... Normal [facility] ABO/Rhon 08-04-2020 ABO/Rh Positive Invalid Interpretation Code [facility] Comment on above: Performed By: #### 1 [id number], [id number], [id number], [id number] ####[facility] [address] [place] [address] ABO/Rh History Checkon 08-04 ABO/Rh History Check Verified Hx Blood Type Normal [facility] Comment on above: Performed By: #### 1 [id number], [id number], [id number], [id number] ####[facility] [address] [place] [address] ABSCon 08-04-2020 ABSC Gel Interp Negative Normal [facility] Comment on above: Performed By: #### 1 [id number], [id number], [id number], [id number] ####[facility] [address] [place] [address] Blood Bank ID#on 08-04-2020 BBID# [id number] Invalid Interpretation Code [facility] Comment on above: Performed By: #### 1 [id number], [id number], [id number], [id number] ####[facility] [address] [place] [address] CBC w/Indiceson 08-04-2020 Erythrocyte distribution width (RBC) [Ratio] 14.8 % High 10.9-14.2 [facility] Comment on above: Performed By: #### 2 198537 #### [facility] [address] [place] [address] Hematocrit (Bld) [Volume fraction] 31.7 % Low 34.0-46.0 [facility] Comment on above: Performed By: #### 2 895157 #### [facility] [address] [place] [address] Hemoglobin (Bld) [Mass/Vol] 10.2 g/dL Low 12.0-16.0 [facility] Comment on above: Performed By: #### 2 674053 #### [facility] [address] [place] [address] MCH (RBC) [Entitic mass] 25.6 pg Low 27.0-34.0 [facility] Comment on above: Performed By: #### 2 111752 #### [facility] [address] [place] [address] MCHC (RBC) [Mass/Vol] 32.1 g/dL Normal 31.4-36.0 [facility] Comment on above: Performed By: #### 2 090360 #### [facility] [address] [place] [address] MCV (RBC) [Entitic vol] 79.7 fL Low 80.0-100.0 [facility] Comment on above: Performed By: #### 2 [id number] #### [facility] [address] [place] [address] Platelet mean volume (Bld) [Entitic vol] 8.3 fL Normal 6.4-10.8 [facility] Comment on above: Performed By: #### 2 065837 #### [facility] [address] [place] [address] Platelets (Bld) [#/Vol] 341.0 E9/L Normal 150.0-500.0 [facility] Comment on above: Performed By: #### 2 757359 #### [facility] [address] [place] [address] RBC (Bld) [#/Vol] 4.0 E12/L Low 4.3-5.9 [facility] Comment on above: Performed By: #### 2 329461 #### [facility] [address] [place] [address] WBC corrected for nucl RBC Auto (Bld) [#/Vol] 8.2 E9/L Normal 4.0-11.0 [facility] Comment on above: Performed By: #### 2 422438 #### [facility] [address] [place] [address] Consent for Procedure/Surger yon 08-04-2020 Consent for Procedure/Surgery [id number] 9#1.00CD:127 Normal [facility] Consent for Procedure/Surgery [id number] 3#1.00CD:127 Normal [facility] Consent for Procedure/Surgery [id number] 5#1.00CD:127 Normal [facility] Consent for Treatmenton 07-19 Consent for Treatment [id number] 2#1.00CD:127 Normal [facility] Consent for Treatment [id number] 9#1.00CD:127 Normal [facility] Delivery Summaryon Delivery Summary Patient: [...] Vaginal Delivery: condition: Stable. Maternal condition: Stable. MD Jerardo Ferro [facility] Comment on above: Result Comment: Elec tronically Signed By: Funmilayo ESCOBEDO MD\.br\Date and Time Signed: 08/04/20 15:29 EDT Discharge Instructionson Discharge Instructions [id number] 9#1.00CD:127 Normal [facility] Help Me Grow Referralon 07-19 Help Me Grow Referral [id number] 4#1.00CD:127 Normal [facility] Progress Note-Physicianon Progress Note-Physician Patient: MYA MYLES Age: 30 years Sex: Female : 1990 Associated Diagnoses: None Author: Kevin Haley Jr., DO Postoperative Information Post Operative Note: Day 2. Anesthetic utilized: Regional: Epidural. Health Status Allergies: Allergic Reactions (Selected) No Known Allergies Problem list: All Problems labor / Patient Care / Confirmed Ovarian cyst / SNOMED CT 916205835 / Confirmed Attention deficit hyperactivity disorder / SNOMED CT 7304989917 / Confirmed Obesity / ICD-9-CM 278.00 / Possible Obesity complicating , third trimester / SNOMED CT 4315252934 / Confirmed Depression during / SNOMED CT 8774991466 / Confirmed Insomnia / SNOMED CT 017560586 / Confirmed / SNOMED CT 096705642 / Confirmed Supervision of high risk in third trimester / SNOMED CT 02478577 / Confirmed Chronic fatigue syndrome / SNOMED CT 55915362 / Confirmed Resolved: / SNOMED CT 892226699 Resolved: / SNOMED CT 860167723 Canceled: Obesity complicating , first trimester / SNOMED CT 8372423255 Canceled: Obesity complicating , second trimester / SNOMED CT 0409164225 Canceled: Supervision of high risk in first trimester / SNOMED CT 36468852 Canceled: Supervision of high risk in second trimester / SNOMED CT 90085170 Physical Examination General: Alert and oriented, No acute distress. Neurologic: Normal sensory, Normal motor function, No focal deficits. Review / Management Result Review Condition: Stable. Assessment Anesthetic outcome No post-epidural complications noted.. Plan Transfer/ Discharge: Condition stable. Normal [facility] Comment on above: [...] / Confirmed Ovarian cyst / SNOMED CT 259839240 / Confirmed Attention deficit hyperactivity disorder / SNOMED CT 2347416479 / Confirmed Obesity / ICD-9-CM 278.00 / Possible Obesity complicating , third trimester / SNOMED CT 3119156365 / Confirmed Depression during / SNOMED CT 8146445339 / Confirmed Insomnia / SNOMED CT 544465446 / Confirmed / SNOMED CT 149433729 / Confirmed Supervision of high risk in third trimester / SNOMED CT 30675420 / Confirmed Chronic fatigue syndrome / SNOMED CT 31598103 / Confirmed Resolved: / SNOMED CT 179195089 Resolved: / SNOMED CT 592208458 Canceled: Obesity complicating , first trimester / SNOMED CT 3063965275 Canceled: Obesity complicating , second trimester / SNOMED CT 3527718918 Canceled: Supervision of high risk in first trimester / SNOMED CT 71967305 Canceled: Supervision of high risk in second trimester / SNOMED CT 34489100 Review of Systems Respiratory: Negative. Cardiovascular: Negative. [...] The PCEA was started at 0942. Normal [facility] Comment on above: Result Comment: Elec tronically Signed By: Kevin Haley Jr., DO.rosey\Date and Time Signed: 08/04/20 10:50 EDT UA With Cult Reflexon 2020 Bilirubin Ql (U) Negative Normal Negative [facility] Comment on above: Order Comment: Urina ry Catheter Insertion triggered Urinalysis With Culture Reflex order by discern. Performed By: #### 2 714808, 9439749, [id number] #### [facility] [address] [place] [address] Clarity (U) CLEAR Normal Clear [facility] Comment on above: Order Comment: Urina ry Catheter Insertion triggered Urinalysis With Culture Reflex order by discern. Performed By: #### 2 264293, 3597256, [id number] #### [facility] [address] [place] [address] Color (U) YELLOW Normal Yellow [facility] Comment on above: Order Comment: Urina ry Catheter Insertion triggered Urinalysis With Culture Reflex order by discern. Performed By: #### 2 863125, 3487884, [id number] #### [facility] [address] [place] [address] Crystals LM Ql (Urine sed) Present Normal [facility] Comment on above: Order Comment: Urina ry Catheter Insertion triggered Urinalysis With Culture Reflex order by discern. Performed By: #### 2 600416, 7515270, [id number] #### [facility] [address] [place] [address] Epithelial cells.squamous LM.HPF (Urine sed) [#/Area] 0-2 Normal 0-2 [facility] Comment on above: Order Comment: Urina ry Catheter Insertion triggered Urinalysis With Culture Reflex order by discern. Performed By: #### 2 601856, 6346179, [id number] #### [facility] [address] [place] [address] Glucose Test strip (U) [Mass/Vol] Negative Normal Negative [facility] Comment on above: Order Comment: Urina ry Catheter Insertion triggered Urinalysis With Culture Reflex order by discern. Performed By: #### 2 389671, 9979761, [id number] #### [facility] [address] [place] [address] Hemoglobin Ql (U) TRACE Abnormal Negative [facility] Comment on above: Order Comment: Urina ry Catheter Insertion triggered Urinalysis With Culture Reflex order by discern. Performed By: #### 2 899442, 0209029, [id number] #### [facility] [address] [place] [address] Ketones (U) [Mass/Vol] Negative Normal Negative [facility] Comment on above: Order Comment: Urina ry Catheter Insertion triggered Urinalysis With Culture Reflex order by discern. Performed By: #### 2 362905, 7313228, [id number] #### [facility] [address] [place] [address] Ratamosa.plasma/Ratamosa. RBC (Bld) [Mass ratio] 0-3 Normal 0-3 [facility] Comment on above: Order Comment: Urina ry Catheter Insertion triggered Urinalysis With Culture Reflex order by discern. Performed By: #### 2 442601, 3429104, [id number] #### [facility] [address] [place] [address] Mucus Ql (Urine sed) TRACE Normal [facility] Comment on above: Order Comment: Urina ry Catheter Insertion triggered Urinalysis With Culture Reflex order by discern. Performed By: #### 2 756680, 0618762, [id number] #### [facility] [address] [place] [address] Nitrite Ql (U) Negative Normal Negative [facility] Comment on above: Order Comment: Urina ry Catheter Insertion triggered Urinalysis With Culture Reflex order by discern. Performed By: #### 2 176378, 2559805, [id number] #### [facility] [address] [place] [address] pH (U) 6.0 [pH] Invalid Interpretation Code 5.0-9.0 [facility] Comment on above: Order Comment: Urina ry Catheter Insertion triggered Urinalysis With Culture Reflex order by discern. Performed By: #### 2 184879, 2065847, [id number] #### [facility] [address] [place] [address] Protein (U) [Mass/Vol] Negative Normal Negative [facility] Comment on above: Order Comment: Urina ry Catheter Insertion triggered Urinalysis With Culture Reflex order by discern. Performed By: #### 2 384185, 1329989, [id number] #### [facility] [address] [place] [address] Specific gravity (U) [Rel density] 1.015 Invalid Interpretation Code 1.005-1.030 [facility] Comment on above: Order Comment: Urina ry Catheter Insertion triggered Urinalysis With Culture Reflex order by discern. Performed By: #### 2 226234, 6313989, [id number] #### [facility] [address] [place] [address] Type of Urine collection method Catheter Normal [facility] Comment on above: Order Comment: Urina ry Catheter Insertion triggered Urinalysis With Culture Reflex order by discern. Performed By: #### 2 544907, 7041905, [id number] #### [facility] [address] [place] [address] Urobilinogen Qn (U) 0.2 {Henny'U}/dL Normal 0.0-1.0 [facility] Comment on above: Order Comment: Urina ry Catheter Insertion triggered Urinalysis With Culture Reflex order by discern. Performed By: #### 2 753698, 9863641, [id number] #### [facility] [address] [place] [address] WBC Auto Ql (U) Negative Normal Negative [facility] Comment on above: Order Comment: Urina ry Catheter Insertion triggered Urinalysis With Culture Reflex order by discern. Performed By: #### 2 971721, 8674053, [id number] #### [facility] [address] [place] [address] WBC LM.HPF (Urine sed) [#/Area] 0-5 Normal 0-5 [facility] Comment on above: Order Comment: Urina ry Catheter Insertion triggered Urinalysis With Culture Reflex order by discern. Performed By: #### 2 567580, 9729976, [id number] #### [facility] [address] [place] [address] Vaccinationson 08-04-2020 Vaccinations [id number] 0#1.00CD:127 Normal [facility] Coding Summary.on 08-03-2020 Coding Summary. CD:[id number] Gh0bWw+PGhlYWQ+PE1FV TWxE55cnYImdS2KD1mHX D6DCMJGOVFNVB0UHU7tm BI1RKxuC6LqzyQr PtqgsHXgPD69MFl3WGY2 yVifULoksX4ovXReR0o0 FaQaIG78iJ46TTzgIZMp GoR2XwFhtcpdkMHd X6giSzYrsCFxJrm+PHRh YmxlIHdpZHRoPScxMDAl JpByzGkmRE8rKj9tUSKw LWNvbGxhcHNlOiBj b8vbBSYrIXogSH9vsIhf F5CkaQN8OWMfy5g4Np28 dHI+UVCqIYJ6nGysIUhh e662YwXtw9chZIH5 mVKqTZsdTWE9S56ad3C2 RBMaGAIcPXX5pKE9zW6s jEvsheayH2EudYQqFzF2 KOU8eIBuhR3zoGch dbcbuP5rPfj+L98ISV6K AEGECG4FDfq9Q4EmGjld dHI+QG72KLYfUZ44vMOz zKZnd8fnlZa6NoXk XNBnTIN0wPucZLfeh9Jt OOSlB41xmBLro2I4WCFt vNediHRxXeYmnPY4dM0t JBstptxia6yinrtu Blfnn4weos52zV24W19b GDtoBKPkPAW3RQZdOFSg bZhyrm6xoI0aVm7+IDxj t0xlq5anrOo7PjVb SICrfhZgyNrgCMS7n5Fc Sf40B3LwlDjca2SwRdv7 ha34cYAfr4J8wHJ5NZra EFBmbV2iQXwxIzU1 KCDzOuAafT45oGKpSUza Fz3zhVxemZemVJ0zFZHl srezSRSceD9qOKIarOVt iOgiCN4lGMFnsxno q767SxZnOIE5VPDlxADi G6TrcX1jDeYbNCNoGPRl N0PdgNYyFQvxU631FQjc FwB2NEItyfOrF3La YKNpkGqqFwG8q3V0Pp1N q3DunfbmLCU0JOpfPHU0 TpB3PoYxAeL3X5FfUho1 MCMjyEjcVW5qH1Es DVVvktqxfwxwhEW5IDRz DZEovH26cWEpYYdvRs7j o8B7o483RHPpLOJqeX96 Uf4eySmhDLZbiACW oP8besqjc1woghycPaUz PTCsEIo3WEe7QZNzeRem MjKvGYH3WsJ1IGH6hQLm jN4wtAmlexttoD6l Oyc+E05joN9vIDY4OVD5 crtfESQgsnUlFQ84WO00 B8PzMgapgSKxuMV+PGRp icKunWthML9oPuOa s1moq5VaMAopO3BbWMUa UAfxAns3VUZaMTE3hSZ5 lO0tJIZbTUiyw8P6bYK2 X1OljsEdoz0ed4bl MPBbLWlcL52qmRJbt1U2 CHSmhUZ8EYRkxQcmXfQv cS31Ywl+FJKkcXxii0Wv Eqbwv4cly1egoTo8 IjMwJSIgdmFsaWduPSJ0 v4EvUp24J29pTQiiQNNg WPCgLPViWGKdmVywaz5s fI0zWb6+PGNvbCB3 eBT2wY7tEJVzHbL6VVos D424LsUrlHYlHsabs7ic v8kijSa2XcXoNLAfeaCl tEmrUQJ1s4EkKn24 W14rYYbhLAQlOCNvGORz IRGgzJkvij0wmU3uFr6+ SS1eg2inls81eG20nOD+ PRRqWPB0lSjwHYez BUMbdT0wDKyvXiP2YTBu XtNzsW07oRQaVLslOu1t jOmvoYbmDA7rFKNmuqmn s003QwPel5cnXZJw eKWaKCvpTVH1I19xy1H3 WPPwLOUeOTS7oYK9bV5q bGlnbjogbGVmdDsgdmVy eOdkSYuyRQfaA496 IHRvcDsnPlBhdGllbnQg WyQqTUn2H9NqHgc6NAQj lCvhXO6qcBEpCDusVl3u lBnhzGmoLM8fLKBs msiyc354PoLzv6ejCQTi sISiBDmzBON9G03hg7M6 WNLhTKPlHQL4rLF6jH4b bGlnbjogbGVmdDsg rwXtkKwuYBkaQFsxW101 IHRvcDsnPkJpcnRoIERh cGY3FQ15TG10iYQgi9F0 cYM0T5YcBDZyokok jehctFI1CRIwEJNozX14 Yo2eyJqaPq6lRMTrPFS4 KTPexPGcZ9EsiG3kChGb EAVcOZPcV8WfmUOr UDmmL185LVayAwI1GBQw wkDaY6OwYDAoeMbgPfM2 g8U0Fm5NF4U3SW50RF01 dQTvm5M3aFX8I6Lw CCIikqipuzjpbKO0CZCl QXNmuA92Wx5sfCrtOw8z JREgONK0ECAutJLxG8Ku hH6fXpMtSTSfNXEz J9ObhYQuJQvlQ341WGpa ZsJ2ISZtczRcE3ZiGVCi jZtbIkK8f8S8Yq5HOJu8 XA44MQ39jJRdd7F8 aEJ5A9BsAGEogyrwjkpv rYL3BGZbNILivL35Ls1d oBvzYh7rNTWxJAP0HVUg dWWkR2WoiK4fYgXi TVKjLZSsO8KshHFjLKhh P486XXxvGfX0OIBfczJp S3IsWDCvzDjiYuH7u8B8 Cn4BHLMeJA78JFW4 gEG3YJ51PT99A5IsFfmg dGFibGU+PHRhYmxlIHdp ZHRoPScxMDAlJyBzdHls DC9sDz7cEGGjOQFi jObozRKoIwOdq0kqFUOh JIdfWT4vpJtwI5LjvGZ3 MYQyh7s4Tf47R61yR7Qp dXA+HCNzgYT3jJQ4 kJ4rNiZgGjK7LDhlE224 KvEeqCMgHwdpm7mga1cx iNy3PrV7QTPytlCrkFza BCK2y0AcFd04R62z IHdpZHRoPSIxNSUiIHZh cAzmqc3djN4gVx5+PGNv zFB0dGN3uM8aWyKaPvR2 FRfkR640YpBxeABl Vewzq8uhn1zwoAy3AfUw TIFazoMtxKsuAPV8j2Wm Hy44H1UbpYbfv8AiBbl0 lh60uBLne3K6lFX6 V7LlTEJppgnacNOgmTdh NO3eAMFbxsocZIFnyI0m ALUlH7f7IwBhGpA2TKqa X5OljbV4GBDguDHn TBbgOWC5B03zq3Y3EXKm XRWcFWJ0mVE2kY2ceBei bjogbGVmdDsgdmVydGlj QTkuHNtoH931NSQv nXtqYYEqvY1sCRWzxRLi dOhbBV6oNCOsfrwfHcMX WrtPTh3eDUSEZsDEB7Yt TDwvdGQ+PHRkIHN0 dHssTSkhHJFsfH3zCAIo Q6i9VrRdAeK8EDimJ6Af RAOfpuxkMt31vV3hTjFh ClX6TXenV2DggvQ3 DKTipZHgSSprPNE8C96v f7B3UFMlFUPxVLV5zPW1 gS0daRlxmzfbjVYgrWlt dmVydGljYWwtYWxp W122RVWfuIbzGqS4DuFw KmO7IRF3V1PfUvb9VNPa zTgpYB4lvCKtMIcoAa6k rDzmyLvqDT7xGPNk gaycWGCadB7jHNRefMNu dRklRL9nMYSdvvsbm750 KcDnEZD9OPXagIRuM5Pi uE2pWbQlCRYcFAGb H6XblUNnPOmwX245QMgo VeY2OXVshsZqS4XoJMVz yQdhBfO9d0Y2Rl6lPEKZ ZWFyczwvdGQ+PHRk BCV9pAeoUZbyBFEjrI8w GIMmI1z9XeWgXdB2XLfa Q3AvBUVidvzuVp87dU7g CvVkDfW5OCgdH8On upO8NJYwsZTnDUryZLN5 L85qt3P3DRVgGWXrYPC7 hBO3uG6xpKoiypntvFLz dDsgdmVydGljYWwt PKdlZ506HRSqoDusMsTj bWFsZTwvdGQ+PHRkIHN0 rVphWTwbMZMqvR4jIRYf J5a5TvHpBjL6UYmy U5WcNOGauommFb31mX4j BsToEsP5YSmeC1DpgoX3 FAWbjREcZOwxQCW4C27n w1M3KMLcFXRgMAY3 xQM7xB6bbEwkrtuswIIx dDsgdmVydGljYWwtYWxp L413RLObnOqeKs7RKPXa aWFnZTwvdGQ+PC90 et33F6CrItigAmo0WBAd OYZ7kXS9qM0lHNWyOBab s0X0yXJ0Q1NdbhPjrf2c z1rjBQPuXZlbD59w yYBeq4X0MKInzKA9LQTu jOqdDbSvnK89Bfq+PGNv bTaap3RpJtnlq8jpu1lo bLn2SkGaXJTuxlXs lKnaUMW8x7JyPi80E47c IHdpZHRoPSIzMCUiIHZh nEosvn7xmJ7xZe0+PGNv qIG6oYS0xS9lJiTo CjU6DUleO395AwAfeRIp Gwyaf2nop7goiIg4NrTs WUOwvmWzvDypRYG4s9Lt Hu94T7BksLqcy3Yu Qai6ff42rTUja7T8wBO0 U7RhICNkdrxmiOCxoJds LT5cOPThcxtcUANpcF7a PDWtP3m5OyYqFsB5 IIlfO6FpqeM1LTFwkAIp OYYxyXPCfX5phdhdh2lp pekmLsJhKVJyUZh1WBb8 LWFsaWduOiBsZWZ0 ThL3GXL3yWNyzA2rbWfz edifzP0iSmd+SOp0y6wm bYMiFX6vrLT8EY60RY14 gOHai7M9kCH2H0Dh GNYimwruyvuddMV1NQFk LEZbrW20Ed5aeYphMg2i EIHeLBF9QUCcdGFuZ8Lv uO7xZmCwRLSpNLUa P7XtoTWpXQfmS059FDlg DqA3DYTycqSjR2RnRZGo aGsiCgP6a3C8Hc7HZU28 HP75DQ84wYEun0M6 hZE7T7XiZSYyyldzhrpp pAO1TECiFLQbuY96Wx9n cOnaQq7wFNKaRBX1HIRw xZNyO5IyiR7wVvId BGEbKKDtG9VqiCJiIBbz I720RTcfBaY6KOTqzlLk Z6TnDKVraQcwHaT8n6W5 Dr2CCk90VL71VQ78 bNZiy0R5bWR0H2JyRLEt gpekvotciHY6ULUaWIRq rG62Ja5itYlkVa0vJVYd BSD7HMOckRVcN6Bc yS3cKpYqABZaJXHyP7Uo tKGvRZpbJ399EMqeNsN6 HYOqliNlK8AnSUQtoOlk GzA0n9P3Iq5FSTrb zjw1G0SfFhkwlSV+PC90 FCUxYX88lYTkxANrp8xj pIi7IvRnJNLlGOX5eJqf WGoao8UiILUfY78v bGFw (more content not included)... Normal [facility] Ambulatory Clinical Summaryo n 08-02-2020 Ambulatory Clinical Summary {pr-11-h1-b9-9e-80-4 1-3m-nh-05-tt-16-5b- 09-9c-6a}CD:[id number] [facility] Insurance Correspondenceon 0 08-02-2020 Insurance Correspondence [id number] #1.00CD:127 [facility] Insurance Correspondence Off iceon 08-02-2020 Insurance Correspondence Office [id number] 1#1.00CD:127 [facility] Insurance Correspondence Office [id number] 1#1.00CD:127 [facility] Nursing Assessmenton 021 Nursing Assessment [id number] 4#1.00CD:127 [facility] Obstetrics Office/Clinic Not jasmine 08-02-2020 Obstetrics Office/Clinic Note Chief Complaint OB 38w 5d, baby moving, occ. [place], swelling bilat. feet, woke up with Migrain in middle of night Obstetric History History (1,0,0,2) # 1 Baby 1 Outcome Date: 2008 Outcome: Live Outcome or Result: Vaginal Gender: Female Gest Age: 41 weeks Wt: 3232 g Hospital: [facility] Labor: -- Child's Name: -- Baby's [...] trimester) Ordered: Office Visit Level 4 Est 44930 TH 2. Obesity complicating , third trimester (O99.213: Obesity complicating , third trimester) Ordered: Office Visit Level 4 Est 40146 TH 3. Depression during (O99.340: Other mental disorders complicating , unspecified trimester) Ordered: Office Visit Level 4 Est 28847 TH 4. 38 weeks gestation of (Z3A.38: 38 weeks gestation of ) Ordered: Office Visit Level 4 Est 17817 TH Follow-up With When Contact Information Funmilayo ESCOBEDO MD In [address] [place] [address]- Additional Instructions: Problem List/Past Medical History Ongoing Attention deficit hyperactivity disorder Chronic fatigue syndrome Depression during Insomnia Obesity complicating , third trimester Ovarian cyst Supervision of high risk in third trimester Historical Medications Multivitamins, 1 tab(s), Oral, Daily Allergies No Known Allergies Social History Alcohol - Denies Alcohol Use, 11/21/2009 DENIES, 04/14/2020 Employment/School 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 2020 [employer] Normal [facility] Discharge Instructionson Discharge Instructions [id number] Normal [facility] Inpatient Clinical Summaryon 07-31-2020 Inpatient Clinical Summary [place] [id number] Clinical Summary Person Information Name: MYA MYLES/[facility] Age: 30 Years : 1990 Sex: Female PCP: Chao Blackwell III, DO Marital Status: Single Race: White Ethnicity: Non- or Language: [place] Visit Id: Visit Reason: Speciality: Acuity: Obs Enc Type: OB Triage Med Service: Obstetrics Arrival: 07/30/2020 21:16:34 Discharge: 07/30/2020 22:58:00 Dispo Type: Home (Routine DC) Address: [address] [place] [address] [address] [place] [id number] Provider Notes: Diagnosis: Problems Active Insomnia Chronic [...] up: With: Address: When: Funmilayo ESCOBEDO [address] [place] [address] [facility] ([facility] In 3 days 08/02/2020 Comments: Keep scheduled [...] vaginal bleeding Type Location Start Finish State [facility] [place] 08/02/2020 4:30 PM 08/02/2020 4:45 PM Confirmed [facility] 09/15/2020 9:00 AM 09/15/2020 9:15 AM Confirmed Patient Education Information: Normal [facility] Inpatient Patient Summaryon 07-31-2020 Inpatient Patient Summary [address] [address] Patient Discharge Instructions PERSON INFORMATION [...] Follow up: With: Address: When: Funmilayo ESCOBEDO [address] [place] [address] Business ([employer] In 3 days 08/02/2020 Comments: Keep scheduled [...] Leaflets: You may receive a survey from [employer] asking you to rate your care experience. Your feedback is important and will help us understand what we do well and how we can improve the quality of care we provide to you, your loved ones and our community. It?s an honor to serve you. Thank you for choosing [facility] Normal [facility] Consent for Treatmenton 07-19 Consent for Treatment [id number] 0#1.00CD:127 [facility] Consent for Treatment [id number] 06 [id number] 8#1.00CD:127 [facility] Insurance Correspondenceon 0 07-29-2020 Insurance Correspondence [id number] 41#1.00CD:127 [facility] Insurance Correspondence Off iceon 07-29-2020 Insurance Correspondence Office [id number] 5#1.00CD:127 [facility] Nursing Assessmenton 021 Nursing Assessment [id number] 1#1.00CD:127 [facility] Ambulatory Clinical Summaryo n 07-28-2020 Ambulatory Clinical Summary {[id number]}CD:[id number] [facility] Obstetrics Office/Clinic Not jasmine 07-28-2020 Obstetrics Office/Clinic Note Chief Complaint OB visit 38 weeks . Obstetric History History (1,0,0,2) # 1 Baby 1 Outcome Date: 2008 Outcome: Live Outcome or Result: Vaginal Gender: Female Gest Age: 41 weeks Wt: 3232 g [place] [facility] Labor: -- Child's Name: -- Baby's Father: -- # 2 Baby 1 Outcome Date: 05/26/2013 Outcome: Live Outcome or Result: Vaginal Gender: Male Gest Age: 39 weeks 3 days Wt: 3390 g Hospital: [facility] Labor: 5 hr 55 min Child's Name: -- Baby's Father: -- Complications: None Complications: None EGA and CLIFFORD Gestational Age (EGA) and LCIFFORD * Note: EGA calculated as of 07/28/2020 [...] third trimester) Ordered: Office Visit Level 3 [facility] [address] TH 2. Supervision of high risk in third trimester (O09.93: Supervision of high risk , unspecified, third trimester) Follow up in 1 wk. Ordered: Office Visit Level 3 Est 24813 TH 3. 38 weeks gestation of (Z3A.38: 38 weeks gestation of ) Ordered: Office Visit Level 3 Est 38332 TH Follow-up With When Contact Information [facility] In [address] [place] [address]- Additional Instructions: Problem List/Past Medical History Ongoing Attention deficit hyperactivity disorder Chronic fatigue syndrome Depression during Insomnia Obesity complicating , third trimester Ovarian cyst Supervision of high risk in third trimester Historical Medications Multivitamins, 1 tab(s), Oral, Daily Allergies No Known Allergies Social History Alcohol - Denies Alcohol Use, 11/21/2009 DENIES, 04/14/2020 Employment/School 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 ? 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 ? 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 Health and safety ? Rectal thermometer. [...] ? Consumer Product Safety Commission: www.cpsc.gov ? [employer]: www.healthychildren. org ? Safe [...] 01/17/2009 Document Revised: 01/17/2018 Document Reviewed: 12/25/2017 [employer] Patient Education ? 2019 [employer]. [facility] Coding Summary.on 07-27-2020 Coding Summary. CD:[id number] Gh0bWw+PGhlYWQ+PE1FV EDvP13mtQYoqA5GT8tIX R7JGCSOMPRORD3GHR8wr XW9NIdsC2EjipOw WbfbdBCcND28KHz6OQG8 kPwvNBdjfY4wfPUzE4p4 CfDxUY72iY28UVidRYNm TrW3QiQauemseVBg R7miDbNkwRJpPag+PHRh YmxlIHdpZHRoPScxMDAl UyLdzVjiEP0hHb3zAKMf LWNvbGxhcHNlOiBj y7iaVUGqGIynCR4bkFyw Z4YikTJ4BOOkb1l8Un81 dHI+BWVlNDU0aKdeZRqa h887OzFrp7mpFWQ6 uTUjVGzeMAJ9V28rt0K3 ILEcZTXvCCK7rQV8fR7j hVbhrmehT5FdvEShSzJ1 YDM2gPIumS6ztGwm kkyupF2yPod+J52UJW2Y SWRVJK3BEdp6E2WtLnyc dHI+VV87CJXzNX46cVVg cZStg6euzYg5TbXs WZCgQHA8xCzkIYgms5Pu DWNnS88ayCAww4F4BNCh yCagyTZsWeBqfRE8fY0r DRywmdadr6gxwlmf Ulohl0rssg67zL27Q38b NHgvWPAnRLN4BYRgCLZc cLcpig8byM6mZv8+IDxj a0jyh9twxPn3EiSh UXKfphCemXivSOK0z1Kg Wo65J5VijYrib5SiTph8 gv90eOKby5V4oEZ0NBhx TMRzhD2wFYsdDbF1 KYOqFwLhtG38mXYmXHlg Rp2mgPlomCtvLP0dVHQt jjtoEBWbcJ7uTBYbiNUo rQeyNC6zMFCclblq s265WzEeBDQ0DARlvOOi P2KhyI5rMxTkKMWoUNAx P1NliMOyZCkoS609BDqq OlZ3LRMlyhEwK2Um SCUzlZllVaP3i7C6Lf5S f8IqzjahWUV0TMdqACC6 FxB8AfFoOlX7F1RwCnj8 WFNkhXpbPY4oJ6Vj GVKmohamqkrjvHD7FFEz RHLhrB69gVNuVGicOd6c o5O5f932RWLcEYWmtD42 Iz5xgVsbLBObaEHF lL2ekcpid2kmrcwaLpTy VTDrATs1XTk0ZMTkzBbt SpAzAPO2LgK7DLT3bNHy vQ2gzLoxouronD0k Oyc+M96egW4eTVF7UKF3 ogejWKXiuuOcOW99WC20 X6JzUsmudDQaaOL+PGRp boGwdHrhXY1zSfWf x3xeq0KtCJhqI1CrTVAy ONlkMtt9FLZpGUN3sDE6 bR0nNNCyAGemi6Z4sKJ0 Q1EmmpXfsu5an0lu VEEuZHekM12ugXRhe1L5 ENIbzAM5HBVajClxEuNf aP98Gvg+ZMEpgJyil4Pl Auprr6zxx4lupZt7 IjMwJSIgdmFsaWduPSJ0 l3JqBy36X96uTAuzAALk QWPfDFFtUDLwgHqkjg6k dU2eDr8+PGNvbCB3 oCL4nW0cIRSvFvC0UBor A965JwYjhVTxZmupy7cc m6updYb2MaYySNPcfoNs dZqiKFO6r2QlBh43 K87wBCscBNZxGHJoQHAe DQBlkNjzfy8yoW7fKh8+ HD3xn3hcmv72uW98eHJ+ UQDsHZA4iVxaDQrm TURvhT8zHKroHnL4FKNa DaPqxO76bTPnCNdqGd6v cNtvmXhpJU9qCAUtxvyy q585GmVrc3xfDYVr hKAuTZgzWPO4G20ha9U4 AMXzIOKhDHE6nNE0rA1t bGlnbjogbGVmdDsgdmVy bRfqXZzpKLlfX598 IHRvcDsnPlBhdGllbnQg UrJaFUc5C9FpPve4SRMr vXdoZH8vnPLmHWxeZr5j rExhjSchDM4rJMPs odipt868OzXqc2ndPGOz eVSkDCyjQUN8Q79my5J3 RGGlIJNxCOV2nMV8aG5g bGlnbjogbGVmdDsg aeWzuUogOJxhQYnqW402 IHRvcDsnPkJpcnRoIERh rHU2KZ04EG35jDDiz4I7 qNP0E2HaOSTuigfp vnzizFE4ZILhVIOwkU19 Ad0aoCqkIf8nOHVkWTZ9 IYKzyZLzL7PdcJ5nWwDf ZGWiYHKpR5UjiADd BIbiJ804BOkuQtW3MFUc yhAhX8HjRIYydAfyLwS0 z0Y4Za9IH7S4II13RY48 fMPpr8Y9rXW3X9Aq WIGqnpdfdrodzIR9NYKh DNZfpO08Nq0tePotVg2j JCGjLPV6ATMepVNaO1Io sP3sXaWqNIGtQVWj Q8QstGXcFNwpM263MQax PoA3QNYilnJlJ5KaWEFm kLllNgF2m4C1Wu2VRKc0 MZ20QX86qTQli9M7 iQW0X2AwYZQtkhaiaozc pZG5ZUAqBTPxnM43Vg1w uKqtOi8bAGRtXGI3FSSd xQVtD0PihR8yYuZm ESAkDNTqY6VqcIXmIQmk B623KZzaPuU8GKPhfzOk Z2IkBPZhyFzxUgN8b1J3 Du4MLLDqXU35NNG6 jJU0LX28OP38M2TpYllk dGFibGU+PHRhYmxlIHdp ZHRoPScxMDAlJyBzdHls AE1bRq1zAOBiXHIz vMpkaWCoReSvo0raFZJp FWfnPP5soLbfF7IevYR7 NLJlp8j6Kk85T15uQ6Jn dXA+ZCYjyJS9jKB3 vG4aVzCnUrX6MGkqL036 GlVkuPRkUsypo2yol6sn dNh1EiI0DTIcocYgbKjs DNY0f1MgOi35M44i IHdpZHRoPSIxNSUiIHZh vPbaiz6tfA8sJh7+PGNv hZH3wRL2iJ4iGfJiMhA7 HNneX976BpQncJLg Ougyx5apt8zuhFz3RvKi NGHgvdSrsZqpTQM6h6Sm Ht55C1DsmCakh8VqLbi0 io98nWOea1S2bTF8 B0FmFQLfblahqEGfpNhd KF9jEUBntqwmTHDjnT2h IKSrW3w9EzIoVwR8OUck N0CpgkR5DUEitLIw XZycDLN9I63rs1Z6XVGt LVRjADB5jJJ6bP6vrQmm bjogbGVmdDsgdmVydGlj MWnlIDacQ681CCPw zCecFCOzoS5aVVTarYHj fZewTT4eMKSmkeszGjOI RmvKDi9rBBACVfSDV7Nv TDwvdGQ+PHRkIHN0 qDrrEFjfXNVwsU1jNYIs A0i5YhScHjZ7VEpxB8Qn CROllyltEu54vM8eOyIy FqV9IEjpH4FbakH6 ABGejRUwNLqmNTM2Q55q l8S0POBgHONlAUR0rQR9 cL2wqLtrgpzhyLEaiDbk dmVydGljYWwtYWxp E830AJBnlCdyPfQ0LnDz TvI3AEQ2E3GwVrf0NNGg lDlpRW1smRXzXBruPx5u uMkvxFjkSP1tOWHk qiezEUOkcS2oABDybXTk sAkqOG6rUDNorzetf826 AyWjRET6WDVtzUTlO3Su yX6lOkUpWNSzCKQm G7XhuYCpOQzsO885WXct WqH8UUMqknYmX2VlORTm fPtdNbO5q6R1Er1yZQHC ZWFyczwvdGQ+PHRk UCB4aKrxKMsoDMOiaK8e SGWtH8e9RbWnYoP7FJkb K8RdUPModsrlMb50cU7c WfAjEoJ2RXyfW3Nx kuS9VELvqQVqDBdtLYI0 D85gr4G7RLEeUIKeYQQ7 iNN8rQ8jaRisprfhdPZa dDsgdmVydGljYWwt RYijI722BXOugLudKoHm bWFsZTwvdGQ+PHRkIHN0 mOivDKhrKBLfdB5sEODx Y0r6EwSlVbG7XKte Q2SiKROkddbuQe27lE5a GbBwMoQ8YDxtR9WoskH5 LGTvsEXdRGpgANN3L58u s4V1UYVzOVJpUVV6 zSQ3pC4dqJctcdzrqAZc dDsgdmVydGljYWwtYWxp W233YXHswAeyMd4YUBJd aWFnZTwvdGQ+PC90 vt85T8FvQpfnStq4OMDu XGV9qZL6lF4bWUQeLAgp u4Y9oFX5R7OskeEomm7v r0isZHNsLAmyX86t iQMtt1S6ZLVkdYH8EEYn vZoaWzQvlQ20Bba+PGNv rMhhw5CkDcgzr3hyq6xf oCn1PjKyTWYtpnLq vVkaJGX4r7WgHj19F28a IHdpZHRoPSIzMCUiIHZh qNiwpu8gtH6nUw5+PGNv cIP9xTO7hW4uNvXc CmR7UZlfZ256VzHnlVEc Cihga4pxc7tvrBv4XsNf CNTecgTfsFymDUE6q4Dl Xt24J0XbmImhe5Sz Ach7bh43fXKqd7B2uRP6 J4EgPZNzehajtGVebGja IU4jMYYmilavOFAqgQ1p MYErP7l6CjTkCpH1 LPkzJ3UvtfB4FDQldONe XDBjjAZXuS4xpzaut7kh noelDmSyKBItDNe2DQg3 LWFsaWduOiBsZWZ0 MgU3CPX6wYSmgV7pmOec lfsefR8eHod+CQz0t3fc hLUkQB4taMX6KL45KA65 bVYyd0O5vGK4P8Ew XUWyxmghtoyffJP6FWFo ROHocM65Px9fxOzrEg5z YCMhVXD8PYIdtVVtT8Eq hA3zSgCiENGqJHSd X9UopJUpIVbpX654WKwz VgO8FHRcidQgY8EyWMOg oZrlQyB4m7U0Zp6LYO12 WG43EP13jIZyy1Q5 yVI0B7PeWNXzcydbtulm oJG0EHCsOONhdJ95He7e iFxoMr2gNXDkRUQ7RUMh hTBdW1JprI9uClYm ZFLgHWFkS9KhbXDeUIsp C264JHywBzS1YKJujnUw K8PyNKNljHxsLdN8e6T4 Nc2KGi67FT93IA91 tCOfk3V2aYO3X9RzFFBy pxljkxibcLV0FOSzBLNj rX45Uw1dqEruId6pIQOt AZC5RIAhcAPhL0Up wU5fTvYqCPPlUXHqA2Oz aXCoDVxjI664NMlsXpO5 PODfmjHyD4AxXLEjiEqt SdK6d1L9En0HOUoo kid6U7DpPlqmcUO+PC90 FMQtVW38kZTinCWda6nz uWe4CkYbKRSvADZ4pJya NLhsu3EzVFKzX76r bGFw (more content not included)... [facility] Consent for Treatmenton Consent for Treatment [id number] #1.00CD:127 [facility] Discharge Instructionson Discharge Instructions [id number] 75#1.00CD:127 [facility] Comment on above: Other Comment: incco rrect title Discharge Instructions [id number] 67#1.00CD:127 [facility] Inpatient Clinical Summaryon 07-26-2020 Inpatient Clinical Summary [address] [address] Clinical Summary Person Information Name: MYA MYLES [facility]oma/[facility] Age: 30 Years : 1990 Sex: Female PCP: Chao Blackwell III, DO Marital Status: Single Race: White Ethnicity: Non- or Language: [place] Visit Id: Visit Reason: CONTRACTIONS Speciality: Acuity: Enc Type: OB Triage Med Service: Obstetrics Arrival: 07/26/2020 14:59:40 Discharge: 07/26/2020 16:40:00 Dispo Type: Home (Routine DC) Address: [address] [place] [address] [address] BRANSON [phone] Provider Notes: Diagnosis: Problems Active Insomnia Chronic [...] Follow up: With: Address: When: Funmilayo ESCOBEDO [facility] [place] [phone] Business (1) Within 1 week Comments: Call [...] 9:15 AM Confirmed Patient Education Information: Normal [facility] Inpatient Patient Summaryon 07-26-2020 Inpatient Patient Summary [address] [address] Patient Discharge Instructions PERSON INFORMATION Name: MYA [...] Address: When: Funmilayo ESCOBEDO [address] [place], [place] [id number] Business (1) Within 1 week Comments: Call for any problems. Call for fever > 100.5 F Return for contractions closer, longer, and harder Return for decreased movement Return if ruptured membranes or vaginal bleeding In the event that this physician does not participate in your insurance network, please consult with your insurance company to find a nearby participating provider. Type Location Start [facility] SOV [facility] 07/27/2020 [...] Leaflets: You may receive a survey from [employer] asking you to rate your care experience. Your feedback is important and will help us understand what we do well and how we can improve the quality of care we provide to you, your loved ones and our community. It?s an honor to serve you. Thank you for choosing [facility] Normal [facility] UA With Cult Reflexon 2020 Bacteria LM Ql (Urine sed) TRACE Normal Trace [facility] Comment on above: Performed By: #### 2 891514, 3062205, [id number] #### [facility] [address] [place] [address] Bilirubin Ql (U) Negative Normal Negative [facility] Comment on above: Performed By: #### 2 995747, 5938443, [id number] #### [facility] [address] [place] [address] Clarity (U) CLEAR Normal Clear [facility] Comment on above: Performed By: #### 2 184261, 1790914, [id number] #### [facility] [address] [place] [address] Color (U) YELLOW Normal Yellow [facility] Comment on above: Performed By: #### 2 477109, 5854766, [id number] #### [facility] [address] [place] [address] Epithelial cells.squamous LM.HPF (Urine sed) [#/Area] 5-8 Normal 0-2 [facility] Comment on above: Performed By: #### 2 906924, 3317745, [id number] #### [facility] [address] [place] [address] Glucose Test strip (U) [Mass/Vol] Negative Normal Negative [facility] Comment on above: Performed By: #### 2 024797, 8549355, [id number] #### [facility] [address] [place] [address] Hemoglobin Ql (U) TRACE Abnormal Negative [facility] Comment on above: Performed By: #### 2 050976, 5657315, [id number] #### [facility] [address] [place] [address] Ketones (U) [Mass/Vol] TRACE Abnormal Negative [facility] Comment on above: Performed By: #### 2 529185, 9868666, [id number] #### [facility] [address] [place] [address] Ratamosa.plasma/Ratamosa. RBC (Bld) [Mass ratio] 0-3 Normal 0-3 [facility] Comment on above: Performed By: #### 2 291139, 6765914, [id number] #### [facility] [address] [place] [address] Nitrite Ql (U) Negative Normal Negative [facility] Comment on above: Performed By: #### 2 950726, 1676730, [id number] #### [facility] [address] [place] [address] pH (U) 6.0 [pH] Invalid Interpretation Code 5.0-9.0 [facility] Comment on above: Performed By: #### 2 738636, 2937193, [id number] #### [facility] [address] [place] [address] Protein (U) [Mass/Vol] Negative Normal Negative [facility] Comment on above: Performed By: #### 2 517666, 6993949, [id number] #### [facility] [address] [place] [address] Specific gravity (U) [Rel density] 1.020 Invalid Interpretation Code 1.005-1.030 [facility] Comment on above: Performed By: #### 2 770120, 1212017, [id number] #### [facility] [address] [place] [address] Type of Urine collection method Clean Catch Normal [facility] Comment on above: Performed By: #### 2 235104, 3430873, [id number] #### [facility] [address] [place] [address] Urobilinogen Qn (U) 0.2 {Henny'U}/dL Normal 0.0-1.0 [facility] Comment on above: Performed By: #### 2 315480, 6845825, [id number] #### [facility] [address] [place] [address] WBC Auto Ql (U) TRACE Abnormal Negative [facility] Comment on above: Performed By: #### 2 326259, 9411654, [id number] #### [facility] [address] [place] [address] WBC LM.HPF (Urine sed) [#/Area] 0-5 Normal 0-5 [facility] Comment on above: Performed By: #### 2 214443, 9775289, [id number] #### [facility] [address] [place] [address] Yeast LM Ql (Urine sed) TRACE Normal [facility] Comment on above: Performed By: #### 2 518612, 1342849, [id number] #### [facility] [address] [place] [address] Consenton 07-22-2020 Consent [id number] #1.00CD:127 Normal [facility] Consent for Procedure/Surger yon 07-22-2020 Consent for Procedure/Surgery [id number] #1.00CD:127 Normal [facility] US Follow Upon US Follow [...] by: Alexy Conn MD, V. Transcribed by: Phong Technologist: ADEN Technical Comments CLIFFORD 08/11/20 CLIFFORD Obtained CLIFFORD by US GA 37w 1d History 3 Para 2 Transabdominal Ultrasound Performed Placenta Location posterior Placenta Grade 2 Positioning Vertex Amniotic Fluid Volume Normal Normal [facility] Ambulatory Clinical Summaryo n 07-21-2020 Ambulatory Clinical Summary {[id number]}CD:[id number] Normal [facility] Ambulatory Clinical Summary {[id number]}CD:[id number] Normal [facility] Obstetrics Office/Clinic Not jasmine 07-21-2020 Obstetrics Office/Clinic Note Chief Complaint OB 37w, baby moving, swelling fingers and feet goes down with rest and elevating them Obstetric History History (1,0,0,2) # 1 Baby 1 Outcome Date: 2008 Outcome: Live Outcome or Result: Vaginal Gender: Female Gest Age: 41 weeks Wt: 3232 g [facility]: [facility] Labor: -- Child's Name: -- Baby's [...] trimester) Ordered: Office Visit Level 4 Est 31077 TH 2. Obesity complicating , third trimester (O99.213: Obesity complicating , third trimester) Ordered: Office Visit Level 4 Est 02218 TH 3. Depression during (O99.340: Other mental disorders complicating , unspecified trimester) Ordered: Office Visit Level 4 Est 67987 4. 37 weeks gestation of (Z3A.37: 37 weeks gestation of ) Ordered: Office Visit Level 4 Est 86841 Orders: metronidazole, 500 mg = 1 tab(s), Oral, q12hr, X 7 day(s), # 14 tab(s), Refills(s) 0, Pharmacy: [facility] #[id number], 158, cm, 07/07/20 20:05:00 EDT, Height/Length Dosing, 88.3, kg, 07/14/20 16:41:00 EDT, Weight Dosing Follow-up With When Contact Information LAURA MACEDO, Funmilayo Ryan In [address] [place] [address]- Additional Instructions: Problem List/Past Medical [...] Protein Urine Dipstick: Negative (07/21/20 16:41:00) Normal [facility] Comment on above: [...] 05/13/2008 Document Revised: 07/07/2019 Document Reviewed: 07/07/2019 [employer] Patient Education ? 2020 [employer]. [facility] Provider Letteron 07-21-2020 Provider Letter July 21, 2020 To Whom It May Concern, Mya Myles is scheduled to be induced on 08/04/20. [facility] [address] [place] [address] [facility] Ambulatory Clinical Summaryo n 07-14-2020 Ambulatory Clinical Summary {[id number]}CD:984752 [facility] Obstetrics Office/Clinic Not jasmine 07-14-2020 Obstetrics Office/Clinic Note Chief Complaint OB 36w, baby moving, [place] in morning, feels like underwear are wet and has to shower frequently. Contractions all night and not able to sleep Obstetric History History (1,0,0,2) # 1 Baby 1 Outcome Date: 2008 Outcome: Live Outcome or Result: Vaginal Gender: Female Gest Age: 41 weeks Wt: 3232 g [facility]: [facility] Labor: -- Child's Name: -- Baby's Father: -- # 2 Baby 1 Outcome Date: 05/26/2013 Outcome: Live Outcome or Result: Vaginal Gender: Male Gest Age: 39 weeks 3 days Wt: 3390 g Hospital: [facility] Labor: 5 hr 55 min Child's [...] Test Q0114 Office Visit Level 4 Est 35568 [place] 2. Obesity complicating , third trimester (O99.213: Obesity complicating , third trimester) Ordered: Fern Test Q0114 Office Visit Level 4 Est 97403 [place] 3. Depression during (O99.340: Other mental disorders complicating , unspecified trimester) Ordered: Fern Test Q0114 Office Visit Level 4 Est 07790 [place] 4. 36 weeks gestation of (Z3A.36: 36 weeks gestation of ) Ordered: Fern Test Q0114 Office Visit Level 4 Est 62810 [place] 5. Bacterial vaginosis (N76.0: Acute vaginitis) Ordered: Fern Test Q0114 Office Visit Level 4 Est 79355 [place] Orders: metronidazole, 500 mg = 1 tab(s), Oral, q12hr, X 7 day(s), # 14 tab(s), Refills(s) 0, Pharmacy: [facility] #[id number], 158, cm, 07/07/20 20:05:00 EDT, Height/Length Dosing, 88.3, kg, 07/14/20 16:41:00 EDT, Weight Dosing Follow-up With When Contact Information Funmilayo ESCOBEDO MD In [address] [place] [address]- Additional Instructions: Funmilayo ESCOBEDO MD In [address] [place] [address]- Additional Instructions: Problem List/Past Medical [...] type 2: (more content not included)... Normal [facility] Comment on above: [...] 05/13/2008 Document Revised: 07/07/2019 Document Reviewed: 07/07/2019 [employer] Patient Education ? 2019 [employer] [facility] Coding Summary.on 07-12-2020 Coding Summary. CD:[id number] Gh0bWw+PGhlYWQ+PE1FV WElB20wnIRkpO0OK5tMC T2JCSZVEUVGKN7ZZB8xu PL1VYmcC0LsngGl CctdoPKcUC52YOh3KYU3 qDzmCExnkG1fzFBzA9f3 IxMpLY74jW74ULwzTTEq LhH4UyLsurlqqUBp V2ahJqVkjFBjAlr+PHRh YmxlIHdpZHRoPScxMDAl MaKdmCttOS6mTw5xJMJr LWNvbGxhcHNlOiBj u7ssRAJgLRcrMY1saGhd C8DuqRS6ACSww2p9Lf49 dHI+TYAiGYC4zVmwYUaz s090FwEmy0skYUN3 fUVjOHdnUIB0A04wp2H2 AQAxPEUvHCN2zHF1cA3q pGivxtkiO9ObxVBbNlG2 YKU0tGEmnG9cqNid mjanuZ3wRtx+Q29ZXT4G NQOITM0BDgv5S8XhQlht dHI+SI95EIJzKJ62wBOb iRKdd7pooYh8JwGc NAYoXUI6rQffIIhxd8Ur BPIyE02wtHVbd7M8KQRs yFatrAYrQcZhuBV0lK2g TCsemtjcn8jybzkk Yashg7ihof54mU34F17c CUxuHTJxDEQ8KDQzURZj yVwuuh3tdC4bXo7+IDxj y7voc3bblBd4ZeLf RGUgteDhgBcoWMJ9v7Gf Ax05J0PqsQfym3OzQpj1 yk41tFKaw4B8kPD5OAez GTBxvI4eDUvgLjL6 TQYlZiCneJ38pOPkFDwp Ma4doJxqpPixBI9hGWFg euzuVJDtcB9gKDCjlTTk vWnoCN8kCWXvxfmw x462BlLiAPI7PNZlxZAr E4OdfR1mVfHlRYYnEVPb P0UmtNIcOIidQ544MWxq DpM7VGEmrkQhO1Iu IEUmvFsfElJ9i7M1My4Q w1HryanyRFL8RYasKLW9 SoD7ZdIzAvT7Z0WpLse0 ZILxhErzEQ2dJ6Mp GJMxbkqifiapjFV5KRIq RTTggG36sDXoRRjaIn7o h8Q5u341QVHeYNQaxR13 Pz8iuMexFKDedBBG uD4nmbqre9xgptcmYlAn LQIiAUb8YNn6EMLwpOdh QxWuHJC8PzD6YEJ4aZUw pB4ncTmgcceobS4b Oyc+A31ofT9nLCC5YBV8 vmuuJZVzbbHzLH21GC99 Y4VpYutyrGBavOS+PGRp haJveLxdOC7oJfAq n6tyq9VgKYbhJ4LuEEVf OTdbQel2NJIbFZZ4dNI8 yO9uVMJmAHaqp8V2lFQ2 M0HmxxXyjm0mz1pz BKRjQFudA41xrWLgs1X4 RZSncEK0BQXyiXeeIrSg sL84Xyl+KFSgjIvjz5Vo Oaknv8mly3vmsIj6 IjMwJSIgdmFsaWduPSJ0 j5SvXc35R81aJMhcMAYh LQCzVHZqIMRmxFtdrv0b vB2gGq4+PGNvbCB3 zDJ8zG9lUHIpVaR2YPtf X413FrKynQHzGskgk7kl k8czgNw7KbIlFOSmhpVu jDwiIWC7h3LtQt15 R90yBJhnTXCnPJAdFKNh ALFwiErgia2ywA1hFz5+ XE9fi9vyqw31wO72qXN+ HPClFZK7fSewWBru MQKgxQ9hTHkaGzK8TCMz DbKziH10kZVtBOjdJy5u lGmjiCcbVQ4aPVCcbmfq h512OzPqr6pbZFXz xFMqTHtiUYP2L68yj4B2 GTWyCVXwDGY3aPN1cY7x bGlnbjogbGVmdDsgdmVy yGxrGTokRQmfD146 IHRvcDsnPlBhdGllbnQg KdRjISj9X4CyZfm4CWIi gNllIS5rrIFnNNjzUf0r vHtreTwwZO6wXUGw jfwqu999ZzMoc7oqBOBz qXWbGYdlCSS3J75zf5E8 KJZjWBKaDPL9dJB3sV8r bGlnbjogbGVmdDsg wqJxuKsdFOoqIUxdE152 IHRvcDsnPkJpcnRoIERh aMN9HX34IS86vAWyw1E4 aAY0I0HgSQDlbjyn bthgtRB1BIRrLSOdjK80 Vb5sjWymSe8wZAQyYFE0 UMTgoWMtE1FzuE5vEbQk AWYnINGdK1CbqKUa BNseG570XMplQsQ3IDDb zkUvY6EjAKDxxSpfJlO1 v1Y0Je5YA6T9QK42UL47 xDIgl9P0pTK5M7Xq WWMusjbqllmikKD0JWQi ATKieD18Fh6ohNpiHa4k FCQaFWB0HJJcyMYjP2Vj zP9qBmQvFTZmLIZd C3KrgHHeCFbyS222NSsw UlZ4ODSfkiJwM3KuFYHx lXmpFsS1p4O6Cr4NXMn9 NE50ZC49jYXwa5G0 eEL3I8YkUQZirrodnoyx mHV3SNAnDWQwgG94Gd7y dNzfWp2qKUNoAVE2TMJv wJJnC9YxmH6bRyLk YSVuFQQzI9ArjMRfHHae Z935WRttNqQ8SSBnpyAk H4NqZYCsdXvgCrL2m0G6 Cr2PVLHiNJ47MAT5 vNG3IF11WN41C5XmZnry dGFibGU+PHRhYmxlIHdp ZHRoPScxMDAlJyBzdHls SH4tXw5vPQRhFFFk hMmviNLbCkQge7qrRLBm NNabHP3qpRntS1ShmLX9 CQFfz4l6Uy70U26jP3Vk dXA+JSDjzMZ4uPU7 zX8mCaPoIqZ4ZOwmV112 KpBnhVDwOzjfz7sel8zz rZj8YeB0FULkxvVqyUwc YXW7m6WkYl47J68a IHdpZHRoPSIxNSUiIHZh uYfqlk1ecZ5uTr2+PGNv bTY2tKK1dV7fJhDrEzF4 SNnhJ196OjZdjOLl Jqdlj5pft4meoMd5ZgBr TKKyerChiMzlMRB3r2Xn Bs87O7IoqHzxb6EiJza6 dm83jASsx6X7bFJ8 Z1AeVMFdchlqiIXvoXbt WT5lEEXmtpygOFThmH1h CAWmV9g6HpMeEdX1ETvg L2RriuH8FKOhrCNq QTtkCHG1H89wr3D2GHVi TQUuTCR2cWW0eK2ojHyv bjogbGVmdDsgdmVydGlj MIdeQTciF417ZOWn kDdvKZOzqH5pJJNnoOLe jQmaFH3rZGUimetyYvDL AqtDRh7iSZOLMdDIS2Es TDwvdGQ+PHRkIHN0 kCvqNSvoNLEwnN5lLQDj L6s0BkEdPbG3PSjmH9Vi SGDvhwzzJf10gU4fRlWl WzR2HSdtQ6RfkeQ9 QMEggHAkSEspULX6X78h l0E0UAYvSFMsRUY9iUW5 mZ4hyDpiqenvkVQgkOxg dmVydGljYWwtYWxp X064XWRrlQriSzN7LpXr PqR3VNE9W6PkJqk3CJYn uArbNZ3rqNOvLOehXr5s gFykzBpxHI4dUZGi ospyXJVooX7fGRFqnFRs eVqyZS2iTKKdoeabu251 AzBpYRA1JSHaiHLzN7Yk nG9pTdXxHWDiGGCn R0WwbSMwIZdhY855RBfw UlB6FXQcsfPcE7OkWJUo kLmrClR0k7S6Iw6vNGZT ZWFyczwvdGQ+PHRk HVG7yZoeBAljLRXbjJ5x OYCjP9o4KzBlAyL6GGoq D1RiIHCtgddzOy47nG5f VfOiNkW7MCksA4Fj myJ9ELBsiSDyFZiaYVG4 K29mi2G4EQYeXUJcWFN6 qFB3lY1mzUkmbyyplADs dDsgdmVydGljYWwt BJlyN236GYYymXuwVbPu bWFsZTwvdGQ+PHRkIHN0 wHkiHKcvGFItiP7eQWLf S3d0FqMuRzK2LHjd W8PxWWYboqerLp38fD4z HqOhUiD7SIlbD9KlexY2 POAntGMbFMyvNPP2L64b j4D4DFIyLOFwXDS0 sGL8cJ0spFudhbddeUJc dDsgdmVydGljYWwtYWxp J793SZIlkSelTl4DNBOe aWFnZTwvdGQ+PC90 if69O9QoIeneMul2NAXn GOZ9eJT9fR0uBVRbIMoz h9Z8fLG7E1YlecTkmf9n d1ysHMChKXorZ01q fDFho8J6MDZptXX5WNVy yVfwFaUqzQ06Nii+PGNv jVagu3ZlEufuc0ejz1ty aIf5MgTpLJFuvyRy wThtCOO6u9PdTz99I45e IHdpZHRoPSIzMCUiIHZh iSuoxl5xiR6sGx1+PGNv oFL2mHB5gW9fNmYx UuT6NXslO536RfJrlOLo Kxjvg4ndn0vezFe6EvNr ZOTzazAvnDkdDXJ8q0Ra Uy01M5GwcWhrz7Dj Vjc2pi70oHQzm2Q2oTK4 Y6McKZHrezmgbBAprUbt WW4cZXTuuotfCGMngM3n BYUrY8g5FmSuUdX4 EMdeU5KfjpD7WCSskSDl XKYpeWVFmM4idotkn3bm vqbzPrKdJPTjUVa6RBp7 LWFsaWduOiBsZWZ0 QdG9SZA3jMQtlE0xoWfl veaeqH8vJdt+HMb4n7zh wSNoQW3exDQ1RF11AL39 cJGcj3R4xDG6L1Di YPGhphiwnrlmcMP2AFNz VGPbxQ54Oq4swZeyVd5f WSQiGED4ODUgcZJcW6Un dN5lHbXlMUFmOEIl N3EruCEuSQreI181FVmd HgK8LGPtewKhU9DwUHYn lTgoKkZ2h5I8Ma3VTF18 YY42NZ88eGLzy5U7 oYO1X1UvIHAvdywewngx qVR6UNYaZRJlsB60Im6h bLkxYe9nCJOmREX2QZGd qTKeP2TamR8cTqEu FHSwETSrD8QqeMZiORoc Q635GWwkUvG8ZLUdpcHk W1SpAMXuuQpcOxB0d3O5 Ou1CPj22PT90IJ47 eKLnm2N0aSK9B1NxRXWm gyyrwymwvIB5XNDdSUSe qL33Jc3tzAfyAo3iQAXj DRL0OUHdoXFmU1Yl sC2fByAiDEXiPWCvT4Md rNVfTOvoN237HQsmKhS9 VWOmjhGnP0BxJVCntItl UyY2r3S9Ly4YSIat klj3Y2DzLgzadJC+PC90 FKWzTB00mDJdsUDyf5lm eZe2CnHgEQRjJEI8cRzi EZdqd3QnEGNmP09j bGFw (more content not included)... Normal [facility] Insurance Correspondenceon 0 07-12-2020 Insurance Correspondence [id number] 8#1.00CD:127 Normal [facility] Insurance Correspondence Off iceon 07-12-2020 Insurance Correspondence Office [id number] 1#1.00CD:127 Normal [facility] Nursing Assessmenton 021 Nursing Assessment [id number] 8#1.00CD:127 Normal [facility] Group B Strep by PCRon 07-09 Group B Strep colonization by PCR Negative Normal Negative [facility] Comment on above: Order Comment: vagin al swab Performed By: #### 2 478174, 7501720, [id number] #### [facility] [address] [place] [address] ABO/Rhon 07-08-2020 ABO/Rh Positive Invalid Interpretation Code [facility] Comment on above: Performed By: #### 1 8633190, 25952054, 5194820, [id number] #### [facility] [address] [place] [address] ABO/Rh History Checkon 07-08 ABO/Rh History Check Verified Hx Blood Type Normal [facility] Comment on above: Performed By: #### 1 0148174, 23144916, 1143815, 82008747 ####[facility] [address] [place] [address] ABSCon 07-08-2020 ABSC Gel Interp Negative Normal [facility] Comment on above: Performed By: #### 1 5878240, 60212617, 5124652, [id number] ####[facility] [address] [place] [address] BUNon 07-08-2020 Urea nitrogen [Mass/Vol] 7 mg/dL Normal 07-08 [facility] Comment on above: Performed By: #### 2 223334, 2059489, [id number] #### [facility] [address] [place] [address] Blood Bank ID#on 07-08-2020 BBID# [id number] Invalid Interpretation Code [facility] Comment on above: Performed By: #### 1 9279868, 88110276, 1881745, [id number] ####[facility] [address] [place] [address] CBC w/Indiceson 07-08-2020 Erythrocyte distribution width (RBC) [Ratio] 13.6 % Normal 10.9-14.2 [facility] Comment on above: Performed By: #### 2 875812, 2495014, [id number] #### [facility] [address] [place] [address] Hematocrit (Bld) [Volume fraction] 28.9 % Low 34.0-46.0 [facility] Comment on above: Performed By: #### 2 870427, 9790812, 312083341 #### [facility] [address] [place] [address] Hemoglobin (Bld) [Mass/Vol] 9.7 g/dL Low 12.0-16.0 [facility] Comment on above: Performed By: #### 2 250541, 8077561, 335804689 #### [facility] [address] [place] [address] MCH (RBC) [Entitic mass] 27.4 pg Normal 27.0-34.0 [facility] Comment on above: Performed By: #### 2 955517, 1377710, 692981063 #### [facility] [address] [place] [address] MCHC (RBC) [Mass/Vol] 33.5 g/dL Normal 31.4-36.0 [facility] Comment on above: Performed By: #### 2 441083, 2448252, 457479744 #### [facility] [address] [place] [address] MCV (RBC) [Entitic vol] 81.7 fL Normal 80.0-100.0 [facility] Comment on above: Performed By: #### 2 337610, 8488944, [id number] #### [facility] [address] [place] [address] Platelet mean volume (Bld) [Entitic vol] 7.9 fL Normal 6.4-10.8 [facility] Comment on above: Performed By: #### 2 311501, 1513848, [id number] #### [facility] [address] [place] [address] Platelets (Bld) [#/Vol] 320.0 E9/L Normal 150.0-500.0 [facility] Comment on above: Performed By: #### 2 874405, 7797817, 606770588 #### [facility] [address] [place] [address] RBC (Bld) [#/Vol] 3.5 E12/L Low 4.3-5.9 [facility] Comment on above: Performed By: #### 2 324681, 7307635, [id number] #### [facility] [address] [place] [address] WBC corrected for nucl RBC Auto (Bld) [#/Vol] 9.9 E9/L Normal 4.0-11.0 [facility] Comment on above: Performed By: #### 2 668143, 8916191, 929897989 #### [facility] [address] [place] [address] Creatinineon 07-08-2020 Creatinine [Mass/Vol] 0.4 mg/dL Low 0.5-1.3 [facility] Comment on above: Performed By: #### 2 478559, 6673494, 645050566 #### [facility] [address] [place] [address] Discharge Instructionson Discharge Instructions [id number] 8#1.00CD:127 Normal [facility] FSPon 07-08-2020 Fibrin+Fibrinogen fragments (S) [Mass/Vol] <10 Normal <10 [facility] Comment on above: Performed By: #### 2 005355, 6757049, 210314733 #### [facility] [address] [place] [address] Stainon 07-08-2020 FMHV 0 mL Invalid Interpretation Code [facility] Comment on above: Performed By: #### 2 197136, 5888601, 604179870 #### [facility] [address] [place] [address] Negative Control Negative Normal [facility] Comment on above: Performed By: #### 2 578880, 1360092, 847287925 #### [facility] [address] [place] [address] Fibrinogenon 07-08-2020 Fibrinogen Coag (PPP) [Mass/Vol] 451 mg/dL High 200-393 [facility] Comment on above: Performed By: #### 2 304438, 8660609, 731348371 #### [facility] [address] [place] [address] Hep Func Panelon 07-08-2020 Bilirubin.indirect [Mass or moles/Vol] UTC Abnormal 0.1-0.9 [facility] Comment on above: Result Comment: Resu lt verified by Discern Rule. Performed result UTC (Unable to Calculate) was sent as an Alpha code due the inability to calculate a valid numeric value. Performed By: #### 2 273971, 8863891, [id number] #### [facility] [address] [place] [address] Albumin [Mass/Vol] 2.6 g/dL Low 3.3-5.0 [facility] Comment on above: Performed By: #### 2 379384, 2263932, 389965537 #### [facility] [address] [place] [address] Albumin/Globulin (S) [Mass conc ratio] 0.8 Low 1.1-2.2 [facility] Comment on above: Performed By: #### 2 789315, 4743433, 150060979 #### [facility] [address] [place] [address] ALP [Catalytic activity/Vol] 108 Int._Unit/L High 21-98 [facility] Comment on above: Performed By: #### 2 857917, 3345649, 174440316 #### [facility] [address] [place] [address] ALT No additional P-5'-P [Catalytic activity/Vol] 13 Int._Unit/L Normal 6-46 [facility] Comment on above: Performed By: #### 2 289434, 5025111, 302826437 #### [facility] [address] [place] [address] AST [Catalytic activity/Vol] 22 Int._Unit/L Normal 5-43 [facility] Comment on above: Performed By: #### 2 628450, 3355603, 599283070 #### [facility] [address] [place] [address] Bilirubin [Mass/Vol] 0.4 mg/dL Normal 0.0-1.1 [facility] Comment on above: Performed By: #### 2 160871, 6115681, 541602645 #### [facility] [address] [place] [address] Bilirubin.direct [Mass/Vol] mg/dL Normal 0.1-0.4 [facility] Comment on above: Performed By: #### 2 028186, 9308164, 487754912 #### [facility] [address] [place] [address] Globulin (S) [Mass/Vol] 3.4 g/dL Normal 1.4-4.0 [facility] Comment on above: Performed By: #### 2 650347, 5319504, 952009769 #### [facility] [address] [place] [address] Protein [Mass/Vol] 6.0 g/dL Normal 6.0-7.8 [facility] Comment on above: Performed By: #### 2 420279, 7276045, 296080057 #### [facility] [address] [place] [address] Inpatient Clinical Summaryon 07-08-2020 Inpatient Clinical Summary [address] [address] Clinical Summary Person Information Name: MYA MYLES [facility] Age: 30 Years : 1990 Sex: Female PCP: Chao Blackwell III, DO Marital Status: Single Race: White Ethnicity: Non- or Language: [place] Visit Id: Visit Reason: Speciality: Acuity: Obs Enc Type: OB Triage Med Service: Obstetrics Arrival: 07/07/2020 19:39:51 Discharge: 07/08/2020 21:22:00 Dispo Type: Home (Routine DC) Address: [address] [place] [address] [address] [place] [id number] Provider Notes: Diagnosis: Problems Active Obesity complicating [...] Follow up: With: Address: When: [place] [address] Business (1) In 3 days 07/11/2020 Comments: Call Dr. Kramer office Saturday morning to see if she wants to see you sooner. If not keep appointment. Call for any problems. Call for severe abdominal pain Call physician for heavy vaginal bleeding (more content not included)... Normal [facility] Inpatient Patient Summaryon 07-08-2020 Inpatient Patient Summary [address] [address] Patient Discharge Instructions PERSON INFORMATION [...] Follow up: With: Address: When: Funmilayo ESCOBEDO [employer] [place] [id number] Business (1) In 3 days 07/11/2020 Comments: [...] PM 07/21/2020 4:45 PM [facility] 4:30 PM 07/21/2020 4:45 PM [facility] 07/27/2020 2:45 PM 07/27/2020 3:00 PM Confirmed [facility] 08/02/2020 4:30 PM 08/02/2020 4:45 PM Confirmed WH [facility] 09/15/2020 9:00 AM 09/15/2020 9:30 AM Confirmed [...] Document Released: 05/03/2009 ExitCare? Patient Information ?2009 [employer] [facility]. Labor and Information normally lasts 39?41 weeks. [...] or tightening. (more content not included)... Normal [facility] Anion gap [Moles/Vol] 9 mmol/L Normal 6-16 [facility] Comment on above: Performed By: #### 2 845995, 2961121, [id number] #### [facility] [address] [place] [address] Chloride [Moles/Vol] 108 mmol/L Normal 101-111 [facility] Comment on above: Performed By: #### 2 893977, 2491291, 902140838 #### [facility] [address] [place] [address] CO2 [Moles/Vol] 21 mmol/L Normal 21-31 [facility] Comment on above: Performed By: #### 2 869751, 5343193, 970479565 #### [facility] [address] [place] [address] Potassium [Moles/Vol] 3.4 mmol/L Low 3.5-5.3 [facility] Comment on above: Performed By: #### 2 868552, 3635581, [id number] #### [facility] [address] [place] [address] Sodium [Moles/Vol] 135 mmol/L Normal 135-145 [facility] Comment on above: Performed By: #### 2 120154, 7536041, 087156752 #### [facility] [address] [place] [address] PT & PTTon 07-08-2020 aPTT Coag (PPP) [Time] 25.4 second(s) Normal 25.1-36.5 [facility] Comment on above: Result Comment: Hepa rin therapeutic range (represented by Anti-Factor Xa activity of 0.2 - 0.4 U/mL) corresponds to PTT of 56.6 - 109.0 sec. Performed By: #### 2 787333, 2703206, [id number] #### [facility] [address] [place] [address] INR Coag (PPP) [Relative time] 1.0 {INR} Invalid Interpretation Code [facility] Comment on above: Result Comment: INR results are specifically intended to assess patients stabilized on long-term Anticoagulation therapy suggested INR?s ?Less Intensive Anticoagulation? 2.0 ? 3.0 Conventional Range 3.0 ? 4.5 Performed By: #### 2 656808, 2472272, [id number] #### [facility] [address] [place] [address] PT Coag (PPP) [Time] 12.2 second(s) Normal 10.2-12.9 [facility] Comment on above: Performed By: #### 2 953758, 4370167, 043947859 #### [facility] [address] [place] [address] Uric Acidon 07-08-2020 Urate [Mass/Vol] 2.7 mg/dL Normal 2.2-7.4 [facility] Comment on above: Performed By: #### 2 675604, 9727307, 232830959 #### [facility] [address] [place] [address] eGFRon 07-08-2020 GFR/1.73 sq M.predicted among blacks MDRD (S/P/Bld) [Vol rate/Area] mL/min/{1.73_m2} Normal >=59 [facility] Comment on above: Order Comment: Order Added by Discern Expert. Result Comment: eGFR is race adjusted. AA=. Performed By: #### 2 441081, 7154395, 754489618 #### [facility] [address] [place] [address] GFR/1.73 sq M.predicted among non-blacks MDRD (S/P/Bld) [Vol rate/Area] mL/min/{1.73_m2} Normal >=59 [facility] Comment on above: Order Comment: Order Added by Discern Expert. Result Comment: Bean Dumper ramesh kidney disease could be indicated at eGFR's of less than 60 mL/min/1.73m2. Kidney failure is indicated at less than 15 mL/min/1.73m2. Performed By: #### 2 038178, 4703153, 512015314 #### [facility] [address] [place] [address] AmniSureon 07-07-2020 PAMG-1 Protein Negative Normal Negative [facility] Comment on above: Performed By: #### 2 055492, 4332598, 007233347 #### [facility] [address] [place] [address] PAMG-1 Protein Internal Control Positive Normal Positive [facility] Comment on above: Performed By: #### 2 679337, 4374776, 766015512 #### [facility] [address] [place] [address] Consent for Treatmenton - Consent for Treatment [id number] 3#1.00CD:127 Normal [facility] Consent for Treatment [id number] 9#1.00CD:127 Normal [facility] FFNon 07-07-2020 Fibronectin. Ql (Vag fld) Negative Normal [facility] Comment on above: [...] the antibody-antigen reaction. Performed By: #### 2 586416, 7826086, 779697554 #### [facility] [address] [place] [address] UA With Cult Reflexon 2020 Bacteria LM Ql (Urine sed) 1+ /HPF Abnormal Trace [facility] Comment on above: Performed By: #### 2 927670, 3009102, 629727881 #### [facility] [address] [place] [address] Bilirubin Ql (U) Negative Normal Negative [facility] Comment on above: Performed By: #### 2 850544, 7777480, 739450241 #### [facility] [address] [place] [address] Clarity (U) CLEAR Normal Clear [facility] Comment on above: Performed By: #### 2 251175, 9278083, [id number] #### [facility] [address] [place] [address] Color (U) YELLOW Normal Yellow [facility] Comment on above: Performed By: #### 2 229517, 9572981, 230760692 #### [facility] [address] [place] [address] Epithelial cells.squamous LM.HPF (Urine sed) [#/Area] /[HPF] Normal 0-2 [facility] Comment on above: Performed By: #### 2 205675, 9125577, [id number] #### [facility] [address] [place] [address] Glucose Test strip (U) [Mass/Vol] Negative Normal Negative [facility] Comment on above: Performed By: #### 2 281172, 7923915, 307082873 #### [facility] [address] [place] [address] Hemoglobin Ql (U) 2+ Abnormal Negative [facility] Comment on above: Performed By: #### 2 822823, 2843630, 126413849 #### [facility] [address] [place] [address] Ketones (U) [Mass/Vol] TRACE Abnormal Negative [facility] Comment on above: Performed By: #### 2 958625, 7998582, [id number] #### [facility] [address] [place] [address] Ratamosa.plasma/Ratamosa. RBC (Bld) [Mass ratio] >30 Abnormal 0-3 [facility] Comment on above: Performed By: #### 2 114010, 3816899, 259604502 #### [facility] [address] [place] [address] Mucus Ql (Urine sed) TRACE Normal [facility] Comment on above: Performed By: #### 2 925125, 7406591, 545677553 #### [facility] [address] [place] [address] Nitrite Ql (U) Negative Normal Negative [facility] Comment on above: Performed By: #### 2 663150, 1992137, 655488485 #### [facility] [address] [place] [address] pH (U) 5.5 [pH] Invalid Interpretation Code 5.0-9.0 [facility] Comment on above: Performed By: #### 2 540754, 5102921, 052201955 #### [facility] [address] [place] [address] Protein (U) [Mass/Vol] Negative Normal Negative [facility] Comment on above: Performed By: #### 2 523495, 4902624, 702562500 #### [facility] [address] [place] [address] Specific gravity (U) [Rel density] 1.025 Invalid Interpretation Code 1.005-1.030 [facility] Comment on above: Performed By: #### 2 473920, 0387042, 038691133 #### [facility] [address] [place] [address] Type of Urine collection method Clean Catch Normal [facility] Comment on above: Performed By: #### 2 129919, 2525349, 585967458 #### [facility] [address] [place] [address] Urobilinogen Qn (U) 0.2 {Henny'U}/dL Normal 0.0-1.0 [facility] Comment on above: Performed By: #### 2 344023, 9473912, 860194641 #### [facility] [address] [place] [address] WBC Auto Ql (U) Negative Normal Negative [facility] Comment on above: Performed By: #### 2 481844, 7105463, 549194286 #### [facility] [address] [place] [address] WBC LM.HPF (Urine sed) [#/Area] 0-5 Normal 0-5 [facility] Comment on above: Performed By: #### 2 090950, 5388637, 612540427 #### [facility] [address] [place] [address] Ambulatory Clinical Summaryo n 07-06-2020 Ambulatory Clinical Summary {[id number]-[id number]- 4d-9d-99}CD:[id number] Normal [facility] Obstetrics Office/Clinic Not jasmine 07-06-2020 Obstetrics Office/Clinic Note Chief Complaint OB visit 34 weeks 6 days. Obstetric History History (1,0,0,2) # 1 Baby 1 Outcome Date: 2008 Outcome: Live Outcome or Result: Vaginal Gender: Female Gest Age: 41 weeks Wt: 3232 g Hospital: [facility] Labor: -- Child's Name: -- Baby's [...] Stable. Ordered: Office Visit Level 3 Est 64938 TH 2. Obesity complicating , third trimester (O99.213: Obesity complicating , third trimester) Doing well managing weight gain. Ordered: Office Visit Level 3 Est 65511 TH 3. Supervision of high risk in third trimester (O09.93: Supervision of high risk , unspecified, third trimester) Follow up in 2 weeks for appt and growth US. PTL precautions until 37 wks. Ordered: Office Visit Level 3 Est 91732 TH 4. 34 weeks gestation of (Z3A.34: 34 weeks gestation of ) Ordered: Office Visit Level 3 Est 35440 TH Follow-up With When Contact Information [facility] In [address] [place] [address]- Additional Instructions: Problem List/Past Medical History Ongoing [...] Protein Urine Dipstick: Negative (07/06/20 14:59:00) Normal [facility] Comment on above: [...] Document Reviewed: 07/23/2008 ExitCare? Patient Information ?2013 [employer]. [facility] Follow Upon Follow Up Exam Date/Time: 06/23/2020 15:12 EDT Reason for Exam: Size - measuring standard growth/amniotic fluid volume;growth q4w - anatomy completed with [facility] Report IMPRESSION: SINGLE LIVE INTRAUTERINE CORRESPONDING [...] Signed by: Yousif Toribio M.D. Transcribed by: [facility] Technologist: ADEN Technical Comments CLIFFORD 08/11/20 CLIFFORD Obtained CLIFFORD by US GA 33w 0d History 3 Para 2 Transabdominal Ultrasound Performed Placenta Location posterior Placenta Grade 1 2 Positioning Vertex Amniotic Fluid Volume Normal Normal [facility] Consenton 06-24-2020 Consent [id number] #1.00CD:127 Normal [facility] Ambulatory Clinical Summaryo n 06-23-2020 Ambulatory Clinical Summary {[id number]-59- 4f-09-56}CD:[id number] Normal [facility] Ambulatory Clinical Summary {[id number] [id number]-[id number]- 21-e0-30}CD:[id number] Normal [facility] Obstetrics Office/Clinic Not jasmine 06-23-2020 Obstetrics Office/Clinic Note Chief Complaint OB 33w, baby moving, swelling in feet. Having heartburn for about two weeks. Obstetric History History (1,0,0,2) # 1 Baby 1 Outcome Date: 2008 Outcome: Live Outcome or Result: Vaginal Gender: Female Gest Age: 41 weeks Wt: 3232 g [facility] Labor: -- Child's Name: -- Baby's [...] trimester) Ordered: Office Visit Level 4 Est 69706 NC 2. Obesity complicating , third trimester (O99.213: Obesity complicating , third trimester) Ordered: Office Visit Level 4 Est 17257 NC 3. Depression during (O99.340: Other mental disorders complicating , unspecified trimester) Ordered: Office Visit Level 4 Est 88438 NC 4. 33 weeks gestation of (Z3A.33: 33 weeks gestation of ) Ordered: Office Visit Level 4 Est 14312 NC Encounter for immunization (Z23: Encounter for immunization) Ordered: tetanus/diphtheria/p ertussis, acel (Tdap), 0.5 mL, IntraMuscular, Once, Stop date 06/23/20 16:00:00 EDT, Routine, Start date 06/23/20 16:00:00 EDT EACH ADD'L Felt Strip Finisher Admin Component 48630 EACH ADD'L Felt Strip Finisher Admin Component 52043 FIRST VACCINE Felt Strip Finisher Admin Charge 77037 Orders: famotidine, 20 mg = 1 tab(s), Oral, BID, # 60 tab(s), Refills(s) 2, [id number], 157, cm, 06/23/20 15:10:00 EDT, Height/Length Dosing, 86.7, kg, 06/23/20 15:10:00 EDT, Weight Dosing Follow-up With When Contact Information LAURA MACEDO, Funmilayo Ryan In [address] [place] [address]- Additional Instructions: Problem List/Past Medical [...] Protein Urine Dipstick: Negative (06/23/20 15:09:00) Normal [facility] Comment on above: [...] keep your urine pale yellow. ? Take kqyi-pox-rwjlkmp and prescription medicines only as told by [...] 02/04/2006 Document Revised: 05/25/2019 Document Reviewed: 05/09/2017 [employer] Patient Education ? 2019 [employer] First Stage of Labor Labor is [...] monitor strap (more content not included)... Normal [facility] Coding Summary.on 06-12-2020 Coding Summary. CD:[id number]:[id number] Gh0bWw+PGhlYWQ+PE1FV AZeR44giWRukM4MG7rZC U9MSILHADMIFN8ZTJ2ct BC8WMdoZ3EdkgXa QqvcbJCmVF19QOu9LTG3 mKizZUkjiH4trHJpR0q7 JcQlQX01uF57QBhrGXAh OuK7FmYpxpopxEKu K0xyIyTqiXOlOdg+PHRh YmxlIHdpZHRoPScxMDAl NeOspXjgTI6wIj0kBVPx LWNvbGxhcHNlOiBj b1mkFAMjTRxnPS5qnZdx G9PfxRE7NAQzl1o1Vs93 dHI+ZASwYJL7iFqcXQyl y771NkFfu5fpBDF0 kLOuIWkoGSR8D19hn8S7 OBUvOUEbJWE9nGY9yK4h hHlbsfaxS3NzdFTkCnP5 BIH2yZRbbL8twEdb zuspbA4iQkt+Z37QMN5B ZFNEQR5NSjf5D7MxSgyx dHI+MI01KEAyTQ24jEAt bSMnr4bowDj5VuRv DLLcQKN9mJmdPAzrz4Zu QNKmM89ghKXpa6C8DOJb iJpeqMSzSqIdmXN6bV9w YBvibrkvg7tqxufa Upzjf7htkd29hE83I96q TJgsPBCoDJD3JMDsUMCi rYjyhe1twZ8zJo3+IDxj r7vqh3yszNk8ZhFv PCYberUcgFmiGGA4d2Rc Jn35H1TouNxvw9MxBcj1 ul86oJKcu1O1aCP4SZyy YSRlaW5yDGmjDgB5 EENlRiXkbJ44zVSaGGpr Yo1yyKhhcSzqPU6zYVDe uhueURDwuF1mGLDjaTTc fOohZG8iNSKmgerr c763XdCpCSI8BJNcoQJj A8IodT6zRoXrCHHiINIb A2XrrXWpPNicZ909JSca WiK8VPKwiaGuG0Og VHRprNgyNxL1m1U4Tj8O p9KngefkFUI2XBpyTEL2 QvU4QgQyUeN4V9IdYlh6 QWXfbUqfHJ2mL9Qk ZAPipaxrgmkhoXN5RUGs FOWwkS61sAHzGAiqPf2x j1Y8k922EQYdDULmaN74 Ao5jxGfpOQGehRLI iU7fkanty9mtvgjrYgDl XQOcPXi7LOe8NDKxsJuq JxFmSRK6PlB6OUT6fDTc rC4lhQclwzlcsC6p Oyc+K86gjW3oRBT9TAC0 phokNTGdscObLY78YZ81 K7HnSvhmrCFmlMP+PGRp ooFlyHnvAL1fZkIt i7dkb2PkMHpdC9HuPAKy BHaxWht2EKTyKZF3kNK3 qQ2oQOXzNGero2M1xAE6 E2XbypElri6gp4hd CLKsMMqtH72idVWvx7X5 HRFpuNL5WJHlqNozCvTr qO67Hnm+RQPxhDonh4Aw Ejrms6mup4ektJo7 IjMwJSIgdmFsaWduPSJ0 n4FcLz28Y67dPSjzPQXf KWTeEGYsHKWgaLmceo3v cQ5zMt2+PGNvbCB3 vJH1sT5rOMGmNjL6LDcz W529QyJmkVRiTpxdd7io m8ammCi1IoVsVZGnjpCh mXhyJGO6k7RsLf21 W71vWIxbNKStWJGbTODj KUTleAnyqh4txC4hYc2+ XR1ph0ctwc02kU62vKA+ XQTcIGV6kHceSSug VVHwsF6qJNsxZiW8DOQf AiXbcF91hODnYGvpLn3k mCzqfOsqRA9eYMLqsqps j030BuFni2unPUPr kWOwRLquCEG1Z81um5P6 KFLnOELoQII5sNB8pI6r bGlnbjogbGVmdDsgdmVy nMlcAHgxBSolY179 IHRvcDsnPlBhdGllbnQg VpDnOVm9M1MdZot1MIJd hGviMS0ueVYoLUfkCy0o rTekgQceVD6xTCMh rtjie956OpEtd5oiQKGo iAWcDPajLFX6D95hy7L4 JFWjUCKmFZB5cTD9xH2b bGlnbjogbGVmdDsg aeLinJbeZExuMGjnE893 IHRvcDsnPkJpcnRoIERh sMA4WW66EK03gTBqs8O3 zRD2D5XxFAYdfpju malseEZ7WKYnRNLvvM00 Mk4niCmnHx3sRRMkSZF8 UZZsqQGkT0EupG3hAhOa FZUrCFLcL6MybMIb VCbnN408NOtrJiC6WJJz ymVrK4WeLODbqSyrPfG6 i0F6Qa0WD7P5BB24VB03 xZKje3N9sVO4T0Qt WUZfyxrgkrhfyLN2MRRn IASygN65Xh9ijFzgYq8l MPSyYCI3KDMseQSkF1Ip cS1sBzCsHIRkRODx Y6VajOUmUJetB160JOzo ZaR7JQTyriZaZ7QrIXLv yPqwQpV3r6R8Og1NDOo2 GB75BW60rTZbx1F9 lYQ9Y3EcPYCmzxakcxqt mSO5XNOfBPLogG94Xu6v tGeoXz5sNNKxIXB4STZn cUXaZ9XcdZ9vMmIu FLQlKXHtN2WvoCYdLNpb V329EHovJtS2PAZdqmFt P2DpBMQstAzdFcL2v9B8 Wx8TZJZxZW78JAS8 nWE7CU02AK59Y6ZfEwlg dGFibGU+PHRhYmxlIHdp ZHRoPScxMDAlJyBzdHls AT4qRj2tYUTtUXCv dHtuxNPqPqHts9suPEZl ZRbdKN2zzKyxR6CoiCH1 RQAks6t3Il78J67qE8Oh dXA+ABIiyOX3gRZ9 xQ0vClBuRsC8GMltN001 SvOprXUfFraua5dgq1fk uZp5VaG1ISHokhZodGhm JEK2i0ZfGn09Q35h IHdpZHRoPSIxNSUiIHZh wRepuf6xoS3nFv7+PGNv pWX1rXH3eP1eEfKxWeH3 ZSkbR084BmCgkOYo Xplrr3qup9wcjJu3CnTx QBPzmfIbkCzwPQI4y5Dp Xn85I8KkjJkvx6SyBmk9 ho57kGKrp0P1nWQ4 B7XuDDOxxgencZSnsCup NZ6pMBMuvnxkCTZppO1d LOZsM9e7XaDzJpD5UGhm U3YkqpL4HTLkqQAd TTofOXG7E27pl7N8OTZn RTGtKMK2xZQ8iU9coDzr bjogbGVmdDsgdmVydGlj MBszJZerO608GDWx iFecNYDrcW1aSOVypAFv mUhoHQ5kOYHqfmduHwRK LvfTVt3wFFHOQjJKA5Nq TDwvdGQ+PHRkIHN0 fYyfNWnbICSrnG6wWVAm L5r5ShXpZuW0GMxmW7As LPWwgwvvZj42hF8nLnEc EtB2CFqeS8MaqvV5 WMXmnZLfADflGPG9V09q v2J0WCXkDXMhNZL7oOX6 qG9dfOvnemiwuANekBru dmVydGljYWwtYWxp A459JBYwtDjkLmA9LwAr FnC3URA2A3QaRvu6FFBd mWkhCV5mtTQyGKvcGh6m kBjjwKwkGH2aYPEg alxlOCTgrF8yRJGufCEm wZiaOW0jCKVpakknb262 ThLnYKF0KVBimXLkM5Zk xF5jIhDaYXDfIGUy N3MadOHmWWchI600WJcr BcT6KNEyukCdS7UaLZLe jHkqUqY9r6H1Va4pHXXU ZWFyczwvdGQ+PHRk AFJ6dOggGYfsGKPqsR3m NWJlG9v6IvYgXdQ8VZjq C2LwPPMujuhnTp80xX5l CcEmPoJ5CIezC7Wk ttW0RROnfUXtKKbmUSS7 Y94kj5Z8DKKeMCUyFHI7 lIB1lC2fuWudgaocbSHw dDsgdmVydGljYWwt SFdqW213VJVcwCdaHoJg bWFsZTwvdGQ+PHRkIHN0 dDcqDDepYLCpnE6zPVAr N0u1GmOeZdR2IKtk M9VhKLFjqcciVd58gT4f VtJwFbJ2XFhvS7CgtxJ6 BRBcbYIzUQjaIBJ8Y47a b3E5JPSxPUWqHIB0 jZY9aM7syVtznemrmGYi dDsgdmVydGljYWwtYWxp I964JUPieFyjQq94vIKj dHsyooT7K7TzMusa dHI+JL12VNJyEK48cPFi aFXom4abiPw2ZqNjYINg MVO0fUskUKfto2TgFGDx J41oxEAhx7L9RVKn fIbftBUpRzBkpVK2mG9g EEzhdumqr3iallfbTscw g9jetn42rI12D82tSNcs ZHRoPSIzMCUiIHZh yLqklf8jcW8rGs4+PGNv eDV8zFU6mQ6bPeOzSwB1 UEybC066ZfHtkMQhFllz i4utz7edeFc1DzSa WLEpqeSskHckWZE2p5Nr Pq49H31gXNvxNMNrWGDn OSTpVKVvdWhefk5hfL9l Ii8+MX9bo6ffvc08 eX98nRJ+ROHaEEF7eRtk OTzjEYThwM6iEAuhMwH3 ZXHpNiLxjR99oGPtDPqr Xf9yuYaeiMbmOG0s FBMzsqbga724LhAyb8kg POYrkKMzXPlmCOM0R42d j3T5IGOtWCWyXHN6bTY2 pC9hyAkmylxfuSGb dDsgdmVydGljYWwtYWxp G688XUZkkRinFrHckKDz H2kcadPCBC9wGigyxSO+ NPYmJMU3hAbcVCnd DZGwuV2hPDOoM2j8LjSb UkH8RIxxE2HqndE3HQUl nSGxFFWsaQCHxC7xruxn s9ggbtlvBtQxCDOq YYc9JDg2KLRatQheVmSx JLQ9PkA9EFU5vXJbjV7u kBbvgduweJ7eUfm+RklO OjwvdGQ+PHRkIHN0 uAzePNzuLERpxF0gVSAd X1o3PkKqMyA7ZAbqF8Uk coK6MEDfbXAqRYZmcTML uW9ygjmqe3lcevid RtJmGAXrBTp0AJh1KOOh qPtjHxTtRUJ6FiR2XOQ0 wUAkrF8byIhnfjyqrB7i Oyc+TVJOOjwvdGQ+ VNXjOOO3hOrsEWvcXQBl lO0xVMYxE5i9YiXhQwO6 QFgpL3HpyhM8NAKfdCPm FQSkdAHEqF4mlwsh y3xshptfQsDhLGVnABy8 USj2QLTxwKlfRzMtPRH8 RnM6PFI8aNCszV0yxZna lbcmwY7hDtz+UGF5 PRS5YD69SV93C6HwSmyb dGFibGU+PHRhYmxlIHdp ZHRoPScxMDAlJyBzdHls KQ5dEt7mYCLyKOAt bGxh (more content not included)... Normal [facility] Coding Summary.on 06-09-2020 Coding Summary. CD:[id number]:[id number] Gh0bWw+PGhlYWQ+PE1FV VCuD04ubGPlpP1ZJ8lYH N5EKZXJKRPDZI2HHC2tq KO8HSkkB7UjchPl MokqxEVlNN85IQg1DNO8 hDpbJMwprT6uzVYgR3a7 EsYlXI28cO89WZrwORKw PuD2WsToggzuxAOr J3kpVaWnbILpHfx+PHRh YmxlIHdpZHRoPScxMDAl JwWceYcuWS7tFo1pBQZo LWNvbGxhcHNlOiBj p8gsZGLqMDzeZW0vuTlm Q7UstNV2PKKyz6r2Fe22 dHI+NSUxTYN3vRasMJbr c077YzVkt4qrVFF2 lWLgBHovTLC0K24oq8M5 QNEiEZWrLDL3eKO4wG3j bWwkxjlvI9BtyTYzHmW4 AUJ9zQDmrI7fdWbv mortgH9tNfo+W97FOE0H JAUGAR7KIlq1I8RgGsve dHI+JS85HGFwWZ11uLYc qYTwi2msiIw2ZtFq WTHkNNU1jZqfQMhzy2Ib XOBeB24fgORcj7F1ODQw tKxkjCXkUvDcnJM5zD1p PUdyzixrw4tlkhry Ypqzh9tztk28rA51O01y MOopOAMrRPL8PSZhOZXn sWsyuc5kvJ6qUc5+IDxj k3lgt4bsoRd8QzTi IZSzttSudLpuUTG3s0Zg Pm35T5PtqRzxa8CdTrk5 dw46wCWcf2U2zVK2OCxs EURswN4hEJqqXiQ8 BFCyZnBqfL47vGQqFEmn Xe6zkGfvlApqIL3pXTVx lwssVUOjhB9jZZDekJJx fXexPQ4uBHFqryic l304GfEyAEM1TOPbdJGg K3EsuM6lApNwZXUcGMRo Z1RaiEChSViwU591YGzp YsR8YUYdpgCdO5Dh BZCghYxaExZ7o2B1Ks4W l5OtruvmKUM3GJoeEKK8 PeDcSjNyBeX7G6KbOkp4 MHZeyEllXE0iM4Cp NCMztndnkprwtHF7LRDv YXSodA87eKCgFTlxFd1w g3C5k199SGNpAVJsoS03 Yn8bnWpqKXSewAGB bT8obhvcc2tdtuuwXcZm KIQaPHy3LCz7HWFqwPlw LrRzVPX5QnU7EYC5vEWf lW9joDycyzuetW9x Oyc+W92biJ2nKAJ7CET2 qcwqDLNjpmWbST27ZB10 E0OcOpdlcDTccPS+PGRp ymWceLcaOD2qCiIz d9nwd2SxXJfvT0JjGDOb YZeiXcp5LTKnYIW9pSX4 jN6mGSVmHXfdj0T6rXG6 I7CrvdTaiu3sz5px YLVsZPieJ47otWNeh4F1 FOEepVI5VWWhlYnfPaLo dU98Afr+AGMelWkml2Fm Wikle1nvq4bukOs3 IjMwJSIgdmFsaWduPSJ0 v9IxIz93F57tFYxgEWZx TJNmJSJgUFUnlUsvak2e mE9lUs3+PGNvbCB3 lNI8sU0hKDLkHwJ1FYyf R356OzTgjQHrKwabe4by o5mftDp1HcTdTDGnwjCr qSdlVRN4j9WcAn32 U70tVRoyRGWrBJMdDXSa YVSqhLnqoj0hrJ2uPv0+ EX6dx3emez25iO82iAS+ BDErAGI0iEyvUIim THNsaE0jEHnpIcK5EEOa NlVnxB54lWRxQMbgSe6n rSnkaPqgMH6eZQYmxtil n993YpZff9ibBFRz iGPfYHetTXN8E35jz5D7 QHCaIRHuZOM0aXR5zW0m bGlnbjogbGVmdDsgdmVy bExdZEjlIDveN384 IHRvcDsnPlBhdGllbnQg YxKpIXy8Z6PhVgu9QTFx jNckVM0oxZTrTBvgWn0m mUrolYzmBO2yRYZp qhjqm004CvNbu1plUALq gLIlTMupWSN1X17lc3W4 DHQdDUFsBFB7sTB2nA0k bGlnbjogbGVmdDsg soOqtEkwNKsuIHgqS296 IHRvcDsnPkJpcnRoIERh oMT6KX13MG88lWLdp9T8 lSM4T8DgQBHbgbbn aupyvHH1FSXnZFPrnQ76 Yc6vaHtiBa1mPOQrCEJ7 XQXkkLYcM7EylO4cMyBm BAQdXTHoX7TfcXAw XQdhJ035KQvgEaP0AWEo glEeM9FiWEJnrEgpVlE1 n4C5Ks3RR1U1ZI81XJ57 wRCok0T0rLI4M8Gn NLFcxqxabbysnXE4OXHr HZSyxV94Un5mjXbsGk7o OSRvVZZ5AKVdaWRzC0Ga bP3oElErLODiFJWh T8FitSQeGDkoN267PBrq OgX0OHPvkpBdA2MmFKRg mIwfYvW1x4I1Ko5VXZm7 KU91VB17yOQjc0D3 cYG4U2IoXRLukaxancqt sQN1CQOyFZMewN41Ql1u yWjrFe3aXFXnOUL9JOAw tSKrJ6XeuA3uCiGv HXEiAPMmD1XiuSVvVTxq A465ENcaFcD5WVPncpCw D0QdBIRezPwsBrI7y5F7 Zf1BLQCvZE87GER9 jUD1IZ65IA45E0XcHipa dGFibGU+PHRhYmxlIHdp ZHRoPScxMDAlJyBzdHls LE0nAx6pAYIyHNMr mMvkzGMwOqKju6zxZVVx KWxiDL3skSpxQ2VopNK3 AREna1o0Is44R73bC3Jd dXA+ZJVgxYV9dBS1 iG5hApLoIkM4EVmrT251 AjAqzYAqCxmtz7pch3rp oGw5EeS9OTWqmaZbrDcl OQW0b8TlDb19B90d IHdpZHRoPSIxNSUiIHZh hPynof1vlP3lWz9+PGNv vMR7sYH2kF7wGoSoJpY7 RMcsR896UgCefLEg Rjcnh2mrh1uwtDa6RhVn QGZxpyZjqZafVZQ5i5Yv Kh76I4FayPxys5VlRsk1 kn09aSPsl6Q8yRL6 N0WyPNYrugzexHEwhXqn LZ7vVSCqnhaqONRgfJ7i AMVtS8w2GaMlLiS5TJlm O1OioiB1LDHnmDMb RNmxOLQ1I19ta0R7BIBu COPhLIP3lAX2xQ2vgKze bjogbGVmdDsgdmVydGlj OErhTQgwE179XRSx wKppKPPvxD7iSYCohUTc ePhsSF9gPNHprbvrQyCB NluWNe2zDXTSUuAGS9Ow TDwvdGQ+PHRkIHN0 dVnoOGksWDYlxE9cLNGa D9l6QrYoLuL1PAitO5Tf FAGivdkeGc08hQ7hKfMu XaY3TCqcQ7AosqR4 XDWhdVVuBFvdDDY8T96n a1F4ZMKcLEMbZVY6eRC1 gH4ezOavteymbZPnoYbe dmVydGljYWwtYWxp P437UPWrmXaoArJ1UjDu FvT2UFY4E0RkTer7VDTj zSbbMK0arJJsUXvzFz1l jJgtwKotGA1vZGHz sdkmLBQzuQ5tPTGzcYNa lWxsGH8eBWWawtruy887 WbSsTOP2MDAahVKmV0Qs bC5lGbAkZYGwQXDq G1QauVVuONeoJ772ZWjy AuA0JMTqwfOcD8TmUYXq vDhxQeR0z0X9Vo7hPFOE ZWFyczwvdGQ+PHRk WNY5cVkzWFxuBKBhkA5s GQZmS6w9DqGdXwZ5KOzo F2RwKXMsjmxhDs32nN8e CsStQuM4HQdkS4Iw hzO3LJXwtPTkYFgdEFH8 G80il4Y9YPYeJQWfATR7 xUB0dT8lzKexnbztqYXz dDsgdmVydGljYWwt PRfzC567YGQhfKndUzUm bWFsZTwvdGQ+PHRkIHN0 xThlHUiyQRDljT8nWXQk A2s2YdXpGdM3GAwc T9ArUIGpoudpPl90bG3r IqRgQyB7PAhvP0MgxfE9 VJIziDPyDXrsDHJ8S34a f2W3VFXiMUZvRVI5 gPH7yW1awRzleiqsuUOg dDsgdmVydGljYWwtYWxp A651QZDmxNljXw98vOTy cBdipfG3L1QgPxaa dHI+UZ39OYAjBB89sGZa nEIrl4qlxSm7OyInUJJv RKH1xPnkKPgiv3TjJRVy H02duXYye9F6BAMe pHrbiCUiPsQygYR4nZ3g JCygjznkq0mjpmjvTirj w1kldq85eM09H69lGPpm ZHRoPSIzMCUiIHZh vTsirq7hjX3xAg4+PGNv hDL9zIS4iJ4oVeIhMaY1 ICrgA065RxKuuUGnJrgb m1cvw6lymHw2UoUz EIAbxgWuiKqfYIG9i4Yn Lt28Q72oPUgcZDYsUUVt UVMkWJGrbRnlkn2boM3t Ii8+KY3ho6moog17 jM60xHB+MBKvHIZ7mVaj GKykGCUdsF2tAFsuGdW1 TAUwDiTrlV85jWIgMQew Hm7jmMvuoYcqWP3e RBEzzwocx084OiOsw2ru YZCicMHeZYgtCGG7L47j h7I1LEMiRGQrKEV1nFM0 aH3luTdxxsdoiQNt dDsgdmVydGljYWwtYWxp L291CIWzeBsmJhWcdURi H1vxwqJRTW1aKeaqvOS+ BKSzOPK5nLvaIZtl QIEuvZ2oLDIjF7o6TsOw SgW2BMkoI5IlxaV0OXIq tGAzSGJgiWQIbW7klyfm o8daxpupZnZkDBOz ACo4BOc9JUKpcVtlTjYr GKA2SdI4LHR4mKFgmW8u yZpjvbwrxT9xUmi+RklO OjwvdGQ+PHRkIHN0 qJkfXOqtXENhjD7jRWIb Q5f9GzHqNfH7TCrrN7Un jhM4HRKhmDExVDTrjLHT bB4lbknhk1cigszo OyPwGGQyUHd0YRa5ZTAf fGjgIkNhMRJ3ZsF1PBW1 zDEfzV3uhSyqtofbrA1w Oyc+TVJOOjwvdGQ+ SRUpBQZ7rGqhPClhFOPj gW2yXOEcX8q8NyIhDiU8 RCmcF8TjiyG2LKQzfMDr HNKtkWEMlN1bcfvh p6gxuybwFuGcAHIbSFd7 WIo2AFOjhDmcQaMaAPY6 JoR1YUY3hDQjeN5pzWat rgyasZ0hPfr+UGF5 KAE4JH53BK12F9SsUztg dGFibGU+PHRhYmxlIHdp ZHRoPScxMDAlJyBzdHls EL2rOp9vMDToVBSc bGxh (more content not included)... Normal [facility] Capillary Glucose POCon 05-19 Glucose [Mass/Vol] 82 mg/dL Normal 55-99 [facility] Comment on above: Performed By: #### 2 [id number] #### [facility] [address] [place] [address] Consent for Treatmenton 05-19 Consent for Treatment [id number] 10 [id number] #1.00CD:127 Normal [facility] Glu 1 Hron 06-03-2020 Glucose [Mass/Vol] 139 mg/dL Normal 55-180 [facility] Comment on above: Result Comment: POSI TIVE SCREEN = 1 HR > 140 mg/dL Performed By: #### 2 [id number] #### [facility] [address] [place] [address] Glu 2 Hron 06-03-2020 Glucose [Mass/Vol] 123 mg/dL Normal 55-155 [facility] Comment on above: Result Comment: DIAB ETES FASTING >126 mg/dL or 2 HOUR >200 mg/dL Performed By: #### 2 [id number], [id number], [id number] #### [facility] [address] [place] [address] Glu 3 Hron 06-03-2020 Glucose [Mass/Vol] 101 mg/dL Normal 55-140 [facility] Comment on above: Result Comment: GEST ATIONAL DIABETES 2 of the following: FASTING >95 mg/dL 1 HOUR >180 mg/dL 2 HOUR >155 mg/dL 3 HOUR >140 mg/dL Performed By: #### 2 [id number] ####[facility] [address] [place] [address] Glu Fastingon 06-03-2020 Glucose [Mass/Vol] 83 mg/dL Normal 55-99 [facility] Comment on above: Performed By: #### 2 [id number], [id number], [id number] #### [facility] [address] [place] [address] Rubella Abon 06-03-2020 Rubella Ab Positive Normal Positive [facility] Comment on above: Performed By: #### 2 [id number], [id number], [id number] #### [facility] [address] [place] [address] ABO/Rhon 06-02-2020 ABO/Rh Positive Invalid Interpretation Code [facility] Comment on above: Performed By: #### 1 [id number], [id number] ####[facility] [address] [place] [address] ABSCon 06-02-2020 ABSC Gel Interp Negative Normal [facility] Comment on above: Performed By: #### 1 [id number], [id number] ####[facility] [address] [place] [address] CBC w/Indiceson 06-02-2020 Erythrocyte distribution width (RBC) [Ratio] 12.9 % Normal 10.9-14.2 [facility] Comment on above: Performed By: #### 2 356374, [id number], [id number] #### [facility] [address] [place] [address] Hematocrit (Bld) [Volume fraction] 33.5 % Low 34.0-46.0 [facility] Comment on above: Performed By: #### 2 639732, [id number], [id number] #### [facility] [address] [place] [address] Hemoglobin (Bld) [Mass/Vol] 11.2 g/dL Low 12.0-16.0 [facility] Comment on above: Performed By: #### 2 397269, [id number], [id number] #### [facility] [address] [place] [address] MCH (RBC) [Entitic mass] 29.0 pg Normal 27.0-34.0 [facility] Comment on above: Performed By: #### 2 183807, [id number], [id number] #### [facility] [address] [place] [address] MCHC (RBC) [Mass/Vol] 33.5 g/dL Normal 31.4-36.0 [facility] Comment on above: Performed By: #### 2 120427, [id number], [id number] #### [facility] [address] [place] [address] MCV (RBC) [Entitic vol] 86.6 fL Normal 80.0-100.0 [facility] Comment on above: Performed By: #### 2 651150, [id number], [id number] #### [facility] [address] [place] [address] Platelet mean volume (Bld) [Entitic vol] 7.6 fL Normal 6.4-10.8 [facility] Comment on above: Performed By: #### 2 619927, [id number], [id number] #### [facility] [address] [place] [address] Platelets (Bld) [#/Vol] 284.0 E9/L Normal 150.0-500.0 [facility] Comment on above: Performed By: #### 2 831996, 6500387, [id number] #### [facility] [address] [place] [address] RBC (Bld) [#/Vol] 3.9 E12/L Low 4.3-5.9 [facility] Comment on above: Performed By: #### 2 419014, 2655395, [id number] #### [facility] [address] [place] [address] WBC corrected for nucl RBC Auto (Bld) [#/Vol] 9.4 E9/L Normal 4.0-11.0 [facility] Comment on above: Performed By: #### 2 909061, 0003984, [id number] #### [facility] [address] [place] [address] Consent for Treatmenton 05-19 Consent for Treatment [id number] 10 [id number] #1.00CD:127 Normal [facility] Gest Scr Glu 1 Hron 06-03-19 Glucose [Mass/Vol] 150 mg/dL High 55-140 [facility] Comment on above: Result Comment: Posi tive Screen =1 HR > 140mg/dL Performed By: #### 2 824991, 0456140, [id number] #### [facility] [address] [place] [address] Ambulatory Clinical Summaryo n 2020 Ambulatory Clinical Summary {[id number]}CD:[id number] Normal [facility] Obstetrics Office/Clinic Not jasmine 2020 Obstetrics Office/Clinic Note Chief Complaint OB 29w 5d, baby moving, patient doing 28 week labs done this Obstetric History History (1,0,0,2) # 1 Baby 1 Outcome Date: 2008 Outcome: Live Outcome or Result: Vaginal Gender: Female Gest Age: 41 weeks Wt: 3232 g [facility]: [facility] [place] Labor: -- Child's Name: -- Baby's [...] trimester) Ordered: Office Visit Level 4 Est 29745 [facility] Follow Up Follow Up 2. Obesity complicating , third trimester (O99.213: Obesity complicating , third trimester) Ordered: Office Visit Level 4 Est 81799 [facility] Follow Up Follow Up 3. Depression during (O99.340: Other mental disorders complicating , unspecified trimester) Ordered: Office Visit Level 4 Est 70235 [facility] Follow Up Follow Up 4. 29 weeks gestation of (Z3A.29: 29 weeks gestation of ) Ordered: Office Visit Level 4 Est 84003 [facility] Follow Up Follow Up Follow-up With When Contact Information Funmilayo ESCOBEDO MD In [address] [place] [address]- Additional Instructions: Problem List/Past Medical [...] Protein Urine Dipstick: Negative (05/31/20 14:25:00) Normal [facility] Comment on above: Result Comment: Elec tronically Signed By: LAURA MACEDO, Funmilayo Ryan\.br\Date and Time Signed: 05/31/20 15:32 EDT Patient [...] including vitamins, herbs, eye drops, creams, and kzvx-gdv-udcmhjb medicines. ? Any blood disorders you have. [...] This inform (more content not included)... Normal [facility] RAD - Ultrasound Reporton RAD - Ultrasound Report [id number]# 1.00CD:127 Normal [facility] Coding Summary.on 05-17-2020 Coding Summary. CODING DATE: 05/16/2020 FINAL [facility] STATUS: Home (Routine DC) PAYOR: [...] CphT Date Saved: 05/16/2020 11:17 pm Normal [facility] C Urineon 05-13-2020 [...] Locations R1: This test was performed at: [facility], [address] [place] [address], [facility]- , , [facility] Comment on above: Performed By: #### 2 [id number] ####[facility] [address] [place] [address] Ambulatory Clinical Summaryo n 05-11-2020 Ambulatory Clinical Summary {[id number]}CD:[id number] Normal [facility] Obstetrics Office/Clinic Not jasmine 05-11-2020 Obstetrics [...] Age: 41 weeks Wt: 3232 g Hospital: [facility] [place] Labor: -- Child's Name: -- Baby's [...] far. Ordered: Office Visit Level 3 Est 50243 [place] 2. Depression during (O99.340: Other mental disorders complicating , unspecified trimester) Doing meditation. Ordered: Office Visit Level 3 Est 93739 [place] 3. Supervision of high risk in [...] 1 Hour Office Visit Level 3 Est 09246 [place] Urine Culture 4. 26 weeks gestation of (Z3A.26: 26 weeks gestation of ) Ordered: Office Visit Level 3 Est 14363 [place] Follow-up With When Contact Information [facility] In [address] [place] [address]- Additional Instructions: Problem List/Past Medical History Ongoing [...] Smokeless Toba (more content not included)... Normal [facility] Comment on above: Result Comment: Elec tronically Signed By: Kathryn HILARIO.rosey\Date and Time Signed: [...] Petroleum jelly. ? 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 ? 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 Health and safety ? Rectal thermometer. [...] ? Consumer Product Safety Commission: www.cpsc.gov ? [employer]: www.healthychildren. org ? Safe [...] 01/17/2009 Document Revised: 01/17/2018 Document Reviewed: 12/25/2017 [employer] Patient Education ? 2019 [employer]. [facility] Coding Summary.on 04-29-2020 Coding Summary. CODING DATE: 04/28/2020 FINAL [facility] STATUS: Home (Routine DC) PAYOR: [...] [place] CphT Date Saved: 04/28/2020 10:33 pm [facility] Coding Summary.on 04-27-2020 Coding Summary. CODING DATE: 04/27/2020 FINAL [facility] STATUS: Home (Routine DC) PAYOR: [...] [place] CphT Date Saved: 04/27/2020 10:53 am [facility] Nursing Assessmenton 021 Nursing Assessment [id number] #1.00CD:127 [facility] C Urineon 04-23-2020 Bacteria identified [...] Locations R1: This test was performed at: [facility], [address] [place] [address], [address]- , , [facility] Comment on above: Performed By: #### 2 [id number], [id number], [id number] #### [facility] [address] [place] [address] Consent for Treatmenton Consent for Treatment [id number] #1.00CD:127 [facility] Consent for Treatment [id number] #1.00CD:127 [facility] Discharge Instructionson Discharge Instructions [id number] #1.00CD:127 [facility] Inpatient Clinical Summaryon 04-21-2020 Inpatient Clinical Summary [address] [address] Clinical Summary Person Information Name: MYA MYLES Ifeoma/[facility] Age: 29 Years : 1990 Sex: Female PCP: Chao Blackwell III, DO Marital Status: Single Race: White Ethnicity: Non- or Language: [place] Visit Id: Visit Reason: Speciality: Acuity: Enc Type: OB Triage Med Service: Obstetrics Arrival: 04/21/2020 15:56:05 Discharge: 04/21/2020 17:47:48 Dispo Type: Home (Routine DC) Address: [address] [place] [address] [place] [id number] Provider Notes: Diagnosis: Problems Active Depression during [...] Address: When: Funmilayo ESCOBEDO [address] [place] [address] Business (1) 05/12/2020 9:00 AM Comments: Call for any problems. Type Location Start Finish [facility] [place] 05/12/2020 9:00 AM 05/12/2020 9:15 AM Confirmed Patient Education Information: Normal [facility] Inpatient Patient Summaryon 04-21-2020 Inpatient Patient Summary [address] [address] Patient Discharge Instructions PERSON INFORMATION Name: MYA [...] With: Address: When: Funmilayo ESCOBEDO [address] [place], [place] [id number] Business (1) 05/12/2020 9:00 AM Comments: Call for any problems. In the event that this physician does not participate in your insurance network, please consult with your insurance company to find a nearby participating provider. Type Location Start [facility] 05/12/2020 9:00 AM 05/12/2020 9:15 AM Confirmed [...] Leaflets: You may receive a survey from [employer] asking you to rate your care experience. Your feedback is important and will help us understand what we do well and how we can improve the quality of care we provide to you, your loved ones and our community. It?s an honor to serve you. Thank you for choosing [facility] Normal [facility] Insurance Correspondence Off iceon 04-21-2020 Insurance Correspondence Office [id number] #1.00CD:127 Normal [facility] RAD - Ultrasound Reporton RAD - Ultrasound Report [id number] [id number] #1.00CD:127 Normal [facility] UA With Cult Reflexon 2020 Bacteria LM Ql (Urine sed) 1+ /HPF Abnormal Trace [facility] Comment on above: Performed By: #### 2 [id number], [id number], [id number] #### [facility] [address] [place] [address] Bilirubin Ql (U) Negative Normal Negative [facility] Comment on above: Performed By: #### 2 904426, [id number], [id number] #### [facility] [address] [place] [address] Clarity (U) CLEAR Normal Clear [facility] Comment on above: Performed By: #### 2 635353, [id number], [id number] #### [facility] [address] [place] [address] Color (U) YELLOW Normal Yellow [facility] Comment on above: Performed By: #### 2 882970, [id number], [id number] #### [facility] [address] [place] [address] Epithelial cells.squamous LM.HPF (Urine sed) [#/Area] 3-4 Normal 0-2 [facility] Comment on above: Performed By: #### 2 359476, [id number], [id number] #### [facility] [address] [place] [address] Glucose Test strip (U) [Mass/Vol] Negative Normal Negative [facility] Comment on above: Performed By: #### 2 209248, [id number], [id number] #### [facility] [address] [place] [address] Hemoglobin Ql (U) Negative Normal Negative [facility] Comment on above: Performed By: #### 2 446903, [id number], [id number] #### [facility] [address] [place] [address] Ketones (U) [Mass/Vol] 1+ Abnormal Negative [facility] Comment on above: Performed By: #### 2 050671, [id number], [id number] #### [facility] [address] [place] [address] [place]osa.plasma/Ratamosa. RBC (Bld) [Mass ratio] 0-3 Normal 0-3 [facility] Comment on above: Performed By: #### 2 108501, 8141671, [id number] #### [facility] [address] [place] [address] Nitrite Ql (U) Negative Normal Negative [facility] Comment on above: Performed By: #### 2 578596, [id number], [id number] #### [facility] [address] [place] [address] pH (U) 7.0 [pH] Invalid Interpretation Code 5.0-9.0 [facility] Comment on above: Performed By: #### 2 426400, 8834063, [id number] #### [facility] [address] [place] [address] Protein (U) [Mass/Vol] Negative Normal Negative [facility] Comment on above: Performed By: #### 2 354984, [id number], [id number] #### [facility] [address] [place] [address] Specific gravity (U) [Rel density] 1.010 Invalid Interpretation Code 1.005-1.030 [facility] Comment on above: Performed By: #### 2 741367, [id number], [id number] #### [facility] [address] [place] [address] UA Spec Desc Clean Catch Normal [facility] Comment on above: Performed By: #### 2 389299, 9311258, [id number] #### [facility] [address] [place] [address] Urobilinogen Qn (U) 0.2 {Henny'U}/dL Normal 0.0-1.0 [facility] Comment on above: Performed By: #### 2 554860, [id number], [id number] #### [facility] [address] [place] [address] WBC Auto Ql (U) 1+ Abnormal Negative [facility] Comment on above: Performed By: #### 2 030446, [id number], [id number] #### [facility] [address] [place], [place] [address] WBC LM.HPF (Urine sed) [#/Area] 0-5 Normal 0-5 [facility] Comment on above: Performed By: #### 2 523869, 9994580, [id number] #### [facility] [address] [place] [address] C Urineon 04-18-2020 Bacteria identified Cx Nom [...] Locations R1: This test was performed at: [facility], [address] [place] [address], [employer] , , [facility] Comment on above: Performed By: #### 2 [id number] ####[facility] [address] [place] [address] Obstetrics Office/Clinic Not jasmine 04-18-2020 Obstetrics Office/Clinic Note Chief Complaint OB 21w 5d, baby moving Obstetric History History (1,0,0,2) # 1 Baby 1 Outcome Date: 2008 Outcome: Live Outcome or Result: Vaginal Gender: Female Gest Age: 41 weeks Wt: 3232 g [facility] [facility] [place] Labor: -- Child's Name: -- Baby's [...] trimester) Ordered: Office Visit Level 4 Est 96022 NC 2. Obesity complicating , second trimester (O99.212: Obesity complicating , second trimester) Ordered: Office Visit Level 4 Est 11230 NC 3. 21 weeks gestation of (Z3A.21: 21 weeks gestation of ) Ordered: Office Visit Level 4 Est 13664 NC 4. Depression during (O99.340: Other mental disorders complicating , unspecified trimester) Ordered: Office Visit Level 4 Est 35262 NC Follow-up With When Contact Information Funmilayo ESCOBEDO MD In [address] [place] [address]- Additional Instructions: Problem List/Past Medical History Ongoing [...] pts pharmacy. Spoke with pt. 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 Will repeat urine cx at next visit. Kendal Escobedo MD [facility] Comment on above: [...] Locations R1: This test was performed at: [facility], [address] [place] [address], [address] , [place], Normal [facility] Comment on above: Performed By: #### 2 734655 ####[facility] [address] [place] [address] HIV Screen 4th Generation wR fxon 04-16-2020 HIV 1+2 Ab+HIV1 p24 Ag IA Ql Non-Reactive Invalid Interpretation Code Non Reactive [facility] Comment on above: Result Comment: [facility] [id number] PhD Lanette Dunn Performed By: #### 2 536013, [id number], [id number] #### [facility] [address] [place] [address] Hep Bs Agon 04-16-2020 HBV surface Ag IA Ql Negative Invalid Interpretation Code Negative [facility] Comment on above: Result Comment: Perf ormed at: [facility] [id number] PhD Lanette Dunn Performed By: #### 2 795090, [id number], [id number] #### [facility] [address] [place] [address] Coding Summary.on 04-15-2020 Coding Summary. CODING DATE: 04/15/2020 FINAL [facility] STATUS: Home (Routine DC) PAYOR: [...] CphT Date Saved: 04/15/2020 09:18 am Normal [facility] RPRon 04-15-2020 Reagin Ab RPR Ql (S) Non-Reactive Normal Non-Reactive [facility] Comment on above: Performed By: #### 9 [id number], [id number], [id number] ####[facility] [address] [place] [address] ABO/Rhon 04-14-2020 ABO/Rh Positive Invalid Interpretation Code [facility] Comment on above: Performed By: #### 2 350413, [id number] #### [facility] [address] [place] [address] ABSCon 04-14-2020 ABSC Gel Interp Negative Normal [facility] Comment on above: Performed By: #### 2 138588, [id number] #### [facility] [address] [place] [address] Ambulatory Clinical Summaryo n 04-14-2020 Ambulatory Clinical Summary {[id number]}CD:765443 Normal [facility] Auto Diffon 04-14-2020 Basophils/100 WBC (Bld) 0.3 % Normal 0.0-2.0 [facility] Comment on above: Order Comment: Order Added by Discern Expert. Performed By: #### 2 358144, 4708031, [id number] #### [facility] [address] [place] [address] Basophils/Leukocytes Auto (Bld) [Pure # fraction] 0.0 E9/L Normal 0.0-0.2 [facility] Comment on above: Order Comment: Order Added by Discern Expert. Performed By: #### 2 476334, 2703985, [id number] #### [facility] [address] [place] [address] Eosinophils/100 WBC (Bld) 0.3 % Normal 0.0-8.0 [facility] Comment on above: Order Comment: Order Added by Discern Expert. Performed By: #### 2 049441, 0668539, [id number] #### [facility] [address] [place] [address] Eosinophils/Leukocytes Auto (Bld) [Pure # fraction] 0.0 E9/L Normal 0.0-0.5 [facility] Comment on above: Order Comment: Order Added by Discern Expert. Performed By: #### 2 696798, 8087420, [id number] #### [facility] [address] [place] [address] Lymphocytes/100 WBC (Bld) 19.1 % Normal 14.0-50.0 [facility] Comment on above: Order Comment: Order Added by Discern Expert. Performed By: #### 2 653536, 7161101, [id number] #### [facility] [address] [place] [address] Lymphocytes/Leukocytes Auto (Bld) [Pure # fraction] 1.4 E9/L Normal 1.0-4.0 [facility] Comment on above: Order Comment: Order Added by Idalia Expert. Performed By: #### 2 964484, 6807934, [id number] #### [facility] [address] [place] [address] Monocytes/100 WBC (Bld) 6.4 % Normal 4.0-14.0 [facility] Comment on above: Order Comment: Order Added by Discern Expert. Performed By: #### 2 301506, 0313097, [id number] #### [facility] [address] [place] [address] Monocytes/Leukocytes Auto (Bld) [Pure # fraction] 0.5 E9/L Normal 0.2-1.0 [facility] Comment on above: Order Comment: Order Added by Idalia Expert. Performed By: #### 2 390207, 8780791, [id number] #### [facility] [address] [place] [address] Neutrophils/100 WBC (Bld) 73.9 % Normal 36.0-75.0 [facility] Comment on above: Order Comment: Order Added by Discern Expert. Performed By: #### 2 632250, 4803585, [id number] #### [facility] [address] [place] [address] Neutrophils/Leukocytes Auto (Bld) [Pure # fraction] 5.3 E9/L Normal 2.0-7.5 [facility] Comment on above: Order Comment: Order Added by Discern Expert. Performed By: #### 2 487616, 1809589, [id number] #### [facility] [address] [place] [address] BhCG Quanton 04-14-2020 [place] [address] m[IU]/mL High 1-3 [facility] Comment on above: Result Comment: GEST ATIONAL AGE HCG RANGE (mIU/mL) NON- <1-3 0.2-1 WEEKS 5-50 1-2 WEEKS 50-500 2-3 WEEKS 100-5,000 3-4 WEEKS 500-10,000 4-5 WEEKS 1,000-50,000 5-6 WEEKS 10,000-100,000 6-8 WEEKS 15,000-200,000 8-12 WEEKS 10,000-100,000 Performed By: #### 2 128553 #### [facility] [address] [place] [address] CBC w/ Auto Diffon Erythrocyte distribution width (RBC) [Ratio] 13.0 % Normal 10.9-14.2 [facility] Comment on above: Performed By: #### 2 748761, 5467793, [id number] #### [facility] [address] [place] [address] Hematocrit (Bld) [Volume fraction] 34.6 % Normal 34.0-46.0 [facility] Comment on above: Performed By: #### 2 510337, 4305995, [id number] #### [facility] [address] [place] [address] Hemoglobin (Bld) [Mass/Vol] 11.6 g/dL Low 12.0-16.0 [facility] Comment on above: Performed By: #### 2 191026, 9799229, [id number] #### [facility] [address] [place] [address] MCH (RBC) [Entitic mass] 29.8 pg Normal 27.0-34.0 [facility] Comment on above: Performed By: #### 2 828591, 4058440, [id number] #### [facility] [address] [place] [address] MCHC (RBC) [Mass/Vol] 33.4 g/dL Normal 31.4-36.0 [facility] Comment on above: Performed By: #### 2 738965, 5853453, [id number] #### [facility] [address] [place] [address] MCV (RBC) [Entitic vol] 89.2 fL Normal 80.0-100.0 [facility] Comment on above: Performed By: #### 2 593032, 3643576, [id number] #### [facility] [address] [place] [address] Platelet mean volume (Bld) [Entitic vol] 7.8 fL Normal 6.4-10.8 [facility] Comment on above: Performed By: #### 2 544106, 7401677, [id number] #### [facility] [address] [place] [address] Platelets (Bld) [#/Vol] 326.0 E9/L Normal 150.0-500.0 [facility] Comment on above: Performed By: #### 2 414212, 2742924, [id number] #### [facility] [address] [place] [address] RBC (Bld) [#/Vol] 3.9 E12/L Low 4.3-5.9 [facility] Comment on above: Performed By: #### 2 043387, 2666549, [id number] #### [facility] [address] [place] [address] WBC corrected for nucl RBC Auto (Bld) [#/Vol] 7.2 E9/L Normal 4.0-11.0 [facility] Comment on above: Performed By: #### 2 226787, 7228125, [id number] #### [facility] [address] [place] [address] Consent for Treatmenton 03-22 Consent for Treatment [id number] #1.00CD:127 Normal [facility] ZyvW2mkm 04-14-2020 HbA1c (Bld) [Mass fraction] 4.8 % Normal <=5.9 [facility] Comment on above: Performed By: #### 2 008191, 1715251, [id number] #### [facility] [address] [place] [address] Patient Educationon 04-14-19 21 Patient Education How [...] Document Reviewed: 07/23/2008 ExitCare? Patient Information ?2013 [employer]. Obstetrics and Gynecology Eating Plan for Women [...] your (t (more content not included)... Normal [facility] U Drug Screenon 04-14-2020 Amphetamines Screen method >1000 ng/mL Ql (U) Negative Normal Negative [facility] Comment on above: Result Comment: Nega tive Cutoff: <1000 ng/mL Performed By: #### 2 401685 #### [facility] [address] [place] [address] Barbiturates Screen Ql (U) Negative Normal Negative [facility] Comment on above: Result Comment: Nega tive Cutoff: <200 ng/mL Performed By: #### 2 120036 #### [facility] [address] [place] [address] Benzodiazepines Ql (U) Negative Normal Negative [facility] Comment on above: Result Comment: Nega tive Cutoff: <200 ng/mL Performed By: #### 2 185614 #### [facility] [address] [place] [address] Cocaine Ql (U) Negative Normal Negative [facility] Comment on above: Result Comment: Nega tive Cutoff: <300 ng/mL Performed By: #### 2 558957 #### [facility] [address] [place] [address] Opiates Screen Ql (U) Negative Normal Negative [facility] Comment on above: Result Comment: Nega tive Cutoff: <300 ng/mL Performed By: #### 2 175710 #### [facility] [address] [place] [address] Phencyclidine Screen method >25 ng/mL Ql (U) Negative Normal Negative [facility] Comment on above: Result Comment: Nega tive Cutoff: <25 ng/mL These drug screen results are to be used for medical (i.e., treatment) purposes only. Unconfirmed drug screening results must not be used for non-medical purposes (e.g., employment testing, legal testing). Performed By: #### 2 687239 #### [facility] [address] [place] [address] Tetrahydrocannabinol Screen method >50 ng/mL Ql (U) Negative Normal Negative [facility] Comment on above: Result Comment: Nega tive Cutoff: <50 ng/mL Performed By: #### 2 652387 #### [facility] [address] [place] [address] RAD - Ultrasound Reporton RAD - Ultrasound Report [id number] #1.00CD:127 Normal [facility] Reportson 03-14-2020 Lab Reports [id number] #1.00CD:127 Normal [facility] Ambulatory Clinical Summaryo n 02-29-2020 Ambulatory Clinical Summary {[id number]}CD:[id number] Normal [facility] Ambulatory Clinical Summary {[id number] [id number]-[id number]}CD:849642 Normal [facility] Obstetrics Office/Clinic Not jasmine 02-29-2020 Obstetrics Office/Clinic Note Chief Complaint OB 15w 2d, feeling flutters, occ. [place] Obstetric History History (1,0,0,2) # 1 Baby 1 Outcome Date: 2008 Outcome: Live Outcome or Result: Vaginal Gender: Female Gest Age: 41 weeks Wt: 3232 g [facility]: [facility] [place] Labor: -- Child's Name: -- Baby's [...] RTC 4 wks. Has anatomy US with Neelam on 03/22. Discussed weight gain and exercise in . 1. Supervision of high risk in second trimester (O09.92: Supervision of high risk , unspecified, second trimester) Ordered: Office Visit Level 4 Est 37629 TH 2. Obesity complicating , second trimester (O99.212: Obesity complicating , second trimester) Ordered: Office Visit Level 4 Est 92176 TH 3. 15 weeks gestation of (Z3A.15: 15 weeks gestation of ) Ordered: Office Visit Level 4 Est 17068 TH Follow-up With When Contact Information LAURA MACEDO, Funmilayo Ryan In [address] [place] [address]- Additional Instructions: Problem List/Past Medical [...] Protein Urine Dipstick: Negative (02/29/20 15:46:00) Normal [facility] Comment on above: [...] Document Reviewed: 05/19/2009 ExitCare? Patient Information ?2013 [facility]. Family Medicine How a Baby Grows [...] flex an (more content not included)... Normal [facility] Physician Referralon 021 Physician Referral [id number] #1.00CD:127 Normal [facility] RAD - Ultrasound Reporton RAD - Ultrasound Report [id number] #1.00CD:127 Normal [facility] Physician Referralon 020 Physician Referral [id number] #1.00CD:127 Normal [facility] Physician Referralon 020 Physician Referral [id number] #1.00CD:127 Normal [facility] Chlamydia/Gonococcus, NAAon 01-30-2020 C. trachomatis rRNA KAIDEN+probe Ql (Unsp spec) Negative Invalid Interpretation Code Negative [facility] Comment on above: Performed By: #### 2 091456, 2839037, [id number] #### [facility] [address] [place] [address] N. gonorrhoeae rRNA KAIDEN+probe Ql (Unsp spec) Negative Invalid Interpretation Code Negative [facility] Comment on above: Result Comment: Perf ormed at: =G [facility] [address] [facility] [place] [id number] MD Kehinde Rivero Performed By: #### 2 030294, 9130863, [id number] #### [facility] [address] [place] [address] Coding Summary.on 01-29-2020 Coding Summary. CODING DATE: 01/29/2020 FINAL [facility] STATUS: Home (Routine DC) PAYOR: [...] Garcia Date Saved: 01/29/2020 01:52 pm Normal [facility] Ambulatory Clinical Summaryo n 01-27-2020 Ambulatory Clinical Summary {[id number]}CD:358902 Normal [facility] Obstetrics Office/Clinic Not jasmine 01-27-2020 Obstetrics Office/Clinic Note Chief Complaint 1st OB 10 Weeks 4 days. Some Nausea. Obstetric History History (1,0,0,2) # 1 Baby 1 Outcome Date: 2008 Outcome: Live Outcome or Result: Vaginal Gender: Female Gest Age: 41 weeks Wt: 3232 g [facility]: [facility] [place] Labor: -- Child's Name: -- Baby's [...] drug use. Last pap 04-02-17, NILM. 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 Review of Systems Constitutional: No fever, No [...] during or after office hours. Referral to [facility] and will defer to them for genetic testin (more content not included)... Normal [facility] Comment on above: [...] Document Reviewed: 07/23/2008 ExitCare? Patient Information ?2013 [employer]beat. [facility] Patient Letter FTon 2019 Patient Letter [facility] January 27, 2020 MYLESMYA Alonzo Abdulaziz [address] [facility] [place] [address] MIMI MYLESGunjan Cintron 1990 Our patient Mya Myles is with a single IUP. EDC is 08/20/[address] [address] [facility] Coding Summary.on 01-22-2020 Coding Summary. CODING DATE: 01/22/2020 FINAL [facility] DSC STATUS: Home (Routine DC) PAYOR: Self [...] Gloria Fleming Date Saved: 01/22/2020 08:46 am [facility] US 1st Trimesteron 01-11-2020 US 1st [...] corresponding gestational age +/- 1 week are: [place] Rump Length: 1.8 cm Composite Ultrasound Age: [...] Transabdominal Ultrasound Performed Size = Dates Normal [facility] Ambulatory Clinical Summaryo n 01-07-2020 Ambulatory Clinical Summary {[id number]}CD:[id number] Normal [facility] Ambulatory Clinical Summaryo n 01-06-2020 Ambulatory Clinical Summary {[id number]}CD:297498 Normal [facility] BhCG Quanton 01-06-2020 HCG.beta subunit Qn 772150 m[IU]/mL High 1-3 [facility] Comment on above: Result Comment: GEST ATIONAL AGE HCG RANGE (mIU/mL) NON- <1-3 0.2-1 WEEKS 5-50 1-2 WEEKS 50-500 2-3 WEEKS 100-5,000 3-4 WEEKS 500-10,000 4-5 WEEKS 1,000-50,000 5-6 WEEKS 10,000-100,000 6-8 WEEKS 15,000-200,000 8-12 WEEKS 10,000-100,000 Performed By: #### 2 584449, 3755383, [id number] #### [facility] [address] [place] [address] Consent for Treatmenton 12-19 Consent for Treatment [id number] #1.00CD:127 Normal [facility] Gynecology Office/Clinic Not jasmine 01-06-2020 Gynecology Office/Clinic Note Chief Complaint Confirmation of , Nausea Some Vomitting. Has had Dark pink Spotting, First OB paper work added . Obstetric History History (1,0,0,2) # 1 Baby 1 Outcome Date: 2008 Outcome: Live Outcome or Result: Vaginal Gender: Female Gest Age: 41 weeks Wt: 3232 g Hospital: [facility] [place] Labor: -- Child's Name: -- Baby's [...] order subsequent US. Plan to refer to [facility] d/t hx child with congenital lymphedema. [...] test, result positive) Ordered: HCG, Urine POC 59285 Follow-up No qualifying data available Problem List/Past [...] Results HCG, Urine: Positive (01/06/20 09:31:00) Normal [facility] Comment on above: Result Comment: Elec tronically Signed By: RHONDA DICKEY, Caroline\.br\Date and Time Signed: 01/06/20 10:17 EST Progesteroneon 01-06-2020 Progesterone [Mass/Vol] 18.00 ng/mL Invalid Interpretation Code [facility] Comment on above: Result Comment: REFE RENCE RANGE Males 0.14-2.06 ng/mL Non- Females Follicular 0.10-0.60 ng/mL Luteal 3.00-17.5 ng/mL Midluteal 3.30-18.6 ng/mL Post-Menopausal 0.10-0.40 ng/mL First Trimester 8.30-66.5 ng/mL Second Trimester 18.9-66.1 ng/mL Third Trimester 35.8-312.4 ng/mL Performed By: #### 2 390676, 4969206, [id number] #### [facility] [address] [place] [address] Coding Summary.on 12-14-2019 Coding Summary. CODING DATE: 12/14/2019 FINAL [facility] STATUS: Home (Routine DC) PAYOR: [...] Garcia Date Saved: 12/14/2019 02:13 pm Normal [facility] ED Note-Physicianon 12-14-19 20 ED Note-Physician Basic Information Time Seen: Kate MESA, Gege Lechuga 12/13/2019 19:14 Chief Complaint pt to ED with c/o consuming plastic from a burger at [employer] today. pt is . denies complaints History of Present Illness This patient presents emergency department after ingesting some type of plastic while eating a sandwich at [employer]. She states she was at [employer] restaurant. She bit down on something hard [...] Blackwell In 3 days 12/16/2019 EDT [address] [id number] [facility] (1) Additional Instructions: Patient Education Swallowed Foreign Body, Adult, Stop-xq-Wdwa Problem List/Past Medical History Ongoing Ovarian cyst Historical Medications Inpatient No active inpatient medications Home Bactroban 2% Cream, 1 ced, Topical, TID Superior 325 mg-5 mg oral tablet, 1 tab(s), Oral, q4hr, PRN Allergies No Known Allergies Social History Alcohol - Denies Alcohol Use, 11/21/2009 Substance Abuse - Denies Substance Abuse, 11/21/2009 Tobacco - Denies Tobacco Use, 11/21/2009 Family History Diabetes mellitus type 2: Mother and Father. Hypertension: Mother and Father. Lab Results No qualifying data available. Diagnostic Results No qualifying data available. Normal [facility] Comment on above: Result Comment: Elec tronically Signed By: Kate MESA, Gege Lechuga\.br\Date and Time Signed: 12/13/19 19:34 EDT\.br\Electronically Co-Signed By: Ed Jerome MD\.rosey\Date and Time Co-Signed: 12/14/19 05:14 EDT Consent for Treatmenton 11-19 Consent for Treatment [id number] #1.00CD:127 Normal [facility] Discharge Instructionson Discharge Instructions [id number]#1.00CD:127 Normal [facility] ED Clinical Summaryon 2019 ED Clinical Summary [place] [id number] ED Clinical Summary Person Information Name: MYA MYLES [facility]feoma/[facility] Age: 29 Years : 1990 Sex: Female Language: [place] Arabian PCP: Chao Blackwell III, DO Marital Status: Single Visit Id: Visit Reason: Medical screening exam; CONSUMED PLASTIC IN [facility] BURGER FROM [facility], APRX 6-8 WEEKS Speciality: Acuity: 4 [...] 12/13/2019 19:44:03 12/13/2019 19:44:03 12/13/2019 19:44:03 ADDRESS: [address] [place] [address] [address] [place] [id number] [facility] DOC NOTES: MEDICAL INFORMATION: Prescriptions Given: Medications to Continue with No Changes Other Medications acetaminophen-hydroc odone (Superior 325 mg-5 mg oral tablet) 1 Tablets By Mouth every 4 hours as needed for pain. Refills: 0. mupirocin topical (Bactroban 2% Cream) 1 Application Topical 3 times a day. Refills: 0. PATIENT EDUCATION INFORMATION: Instructions: Swallowed Foreign Body, Adult, Vrhu-kc-Ujqt Follow up: With: Address: When: Chao Blackwell [address] [place] [address], [place] [address] Business (1) In 3 days 12/16/2019 DIAGNOSIS: 1:Ingestion of foreign body Normal [facility] ED Patient Education Noteon 12-13-2019 [...] Document Reviewed: 05/22/2011 ExitCare? Patient Information ?2015 [employer]. This information is not intended to replace advice given to you by your health care provider. Make sure you discuss any questions you have with your health care provider. Normal [facility] ED Patient Summaryon 020 ED Patient Summary [place] [id number] Patient Discharge Instructions Person Information Name: MYA MYLES Age: 29 Years Arrival Date: 12/13/2019 18:29:24 Discharge Diagnosis: 1:Ingestion of foreign body Primary Care Physician: Chao Blackwell III, DO Provider Information Primary Provider: Advanced Dry Pan Charger:None The exam and treatment you received in the Emergency Department were for an urgent problem and are not intended as complete care. It is important that you follow up with a doctor, nurse practitioner, or physician?s property assistant for ongoing care. If your symptoms [...] Follow-up Instructions: With: Address: When: Chao Blackwell [address] [place] [address], [facility] [address] Business (1) In 3 days 12/16/2019 In the event that this physician does not participate in your insurance network, please consult with your insurance company to find a nearby participating provider. Patient Education Materials: Swallowed Foreign Body, Adult, Ygcu-ut-Kjsh A MESSAGE TO ALL PATIENTS REGARDING OPIOIDS PRESCRIPTION OPIOIDS: WHAT YOU NEED TO KNOW Prescription opioids can be used to help relieve uqufybcy-ml-vcohry pain and are often prescribed following a [...] be struggling with addiction, tell your health director day care center and ask for guidance or call SAMHSA?S National Helpline at 4-509-691-UKHE. (more content not included)... Normal [facility] Vital Signs Date Time Vital Sign Value Performing Clinician Rene hernandez 01-13-2024 16:02-0500 Body mass index (BMI) [Ratio] 37.09 kg/m2 [employer] DO Work Phone: [facility] [employer] 01-13-2024 16:02-0500 Body weight 91.99 kg [employer] DO Work Phone: [facility] 01-13-2024 16:02-0500 Diastolic blood pressure 60 mm[Hg] [employer] Work Phone: [facility] 01-13-2024 16:02-0500 Systolic blood pressure 100 mm[Hg] Deven Russel DO Work Phone: [facility] 01-06-2024 08:34-0500 Body mass index (BMI) [Ratio] 36.58 kg/m2 Catherine Walden PA Work Phone: [facility] 01-06-2024 08:34-0500 Body weight 90.72 kg Catherine Jadon PA Work Phone: [facility] 01-06-2024 08:34-0500 Diastolic blood pressure 70 mm[Hg] Catherine Walden PA Work Phone: [facility] 01-06-2024 08:34-0500 Systolic blood pressure 112 mm[Hg] Catherine Jadon PA Work Phone: [facility] 12-26-2023 15:59-0500 Body mass index (BMI) [Ratio] 35.85 kg/m2 Catherine Jadon PA Work Phone: [facility] 12-26-2023 15:59-0500 Body weight 88.91 kg Catherine Walden PA Work Phone: [facility] 12-26-2023 15:59-0500 Diastolic blood pressure 70 mm[Hg] Catherine Walden PA Work Phone: [facility] 12-26-2023 15:59-0500 Systolic blood pressure 110 mm[Hg] Catherine Walden PA Work Phone: [facility] 12-12-2023 09:52-0400 Body mass index (BMI) [Ratio] 35.48 kg/m2 Deven Russel DO Work Phone: [facility] 12-12-2023 09:52-0400 Body weight 88 kg Deven Russel DO Work Phone: [facility] 12-12-2023 09:52-0400 Diastolic blood pressure 68 mm[Hg] Deven Russel DO Work Phone: [facility] 12-12-2023 09:52-0400 Systolic blood pressure 110 mm[Hg] Deven Russel DO Work Phone: [facility] 11-27-2023 15:35-0400 Body mass index (BMI) [Ratio] 34.57 kg/m2 Catherine TRACY Work Phone: [facility] 11-27-2023 15:35-0400 Body weight 85.73 kg Catherine TRACY Work Phone: [facility] 11-27-2023 15:35-0400 Diastolic blood pressure 76 mm[Hg] Catherine TRACY Work Phone: [facility] 11-27-2023 15:35-0400 Systolic blood pressure 114 mm[Hg] Catherine TRACY Work Phone: [facility] Healthcare Encounters Encounter Date Encounter Type Care Provider Facility Start: 01-13-2024 End: 01-13-2024 flow sheet Deven Russel DO Work Phone: [facility] Comment on above: 38 weeks gestation o f ; Third trimester Start: 01-13-2024 End: 01-13-2024 Bamboo flowsheet Deven Russel DO Work Phone: [facility] Start: 01-13-2024 End: 01-13-2024 Bamboo flowsheet Deven Russel DO Work Phone: [facility] Start: 01-06-2024 End: 01-06-2024 Bamboo flowsheet Catherine TRACY Work Phone: [facility] Start: 01-06-2024 End: 01-06-2024 Bamboo flowsheet Catherine TRACY Work Phone: [facility] Start: 01-06-2024 End: 01-06-2024 flow sheet Catherine TRACY Work Phone: [facility] Comment on above: Third trimester preg faina; 37 weeks gestation of Start: 01-06-2024 End: 01-06-2024 ambulatory CATHERINE BAEZA Not Available Start: 01-01-2024 End: 01-01-2024 Bamboo flowsheet Catherine TRACY Work Phone: [facility] Start: 01-01-2024 End: 01-01-2024 Bamboo flowsheet Catherine TRACY Work Phone: [facility] Start: 01-01-2024 End: 01-01-2024 ambulatory [facility] Start: 01-01-2024 End: 01-01-2024 flow sheet Catherine TRACY Work Phone: [facility] Comment on above: Third trimester preg faina; 37 weeks gestation of Start: 01-01-2024 End: 01-01-2024 ambulatory CATHERINE BAEZA Not Available Start: 12-26-2023 End: 12-26-2023 flow sheet Catherine TRACY Work Phone: [facility] Comment on above: Third trimester preg faina; 36 weeks gestation of Start: 12-26-2023 End: 12-26-2023 ambulatory CATHERINE BAEZA Not Available Start: 12-26-2023 End: 12-26-2023 Bamboo flowsheet Catherine TRACY Work Phone: [facility] Start: 12-26-2023 End: 12-26-2023 Bamboo flowsheet Catherine TRACY Work Phone: [facility] Start: 12-24-2023 End: 12-24-2023 Orders Only Liliam Parra RN [facility] Comment on above: Polyhydramnios, ante , single or unspecified fetus (Primary Dx); Lymphedema; Family history of congenital anomaly Start: 12-23-2023 End: 12-23-[address] [facility] Start: 12-12-2023 End: 12-12-2023 Bamboo flowsheet Deven Russel DO Work Phone: [facility] Start: 12-12-2023 End: 12-12-2023 Bamboo flowsheet Deven Russel DO Work Phone: [facility] Start: 12-12-2023 End: 12-12-2023 ambulatory DEVEN RUSSEL Not Available Start: 12-12-2023 End: 12-12-2023 flow sheet Deven Russel DO Work Phone: [facility] Comment on above: Third trimester preg faina; 34 weeks gestation of ; Accessory placenta, third trimester Start: 12-09-2023 End: 12-09-[address] [facility] Start: 12-06-2023 End: 12-06-[address] [facility] Start: 12-04-2023 End: 12-04-2023 Office consultation new/estab patient 40 min Alysia Lee MD Work Phone: [facility] Comment on above: Obesity affecting pr egnancy in second trimester, unspecified obesity type (Primary Dx); Polyhydramnios, antepartum, single or unspecified fetus Start: 12-04-2023 End: 12-04-2023 ambulatory [facility] Start: 11-27-2023 End: 11-27-2023 ambulatory CATHERINE [...] Start: 10-08-2023 End: 10-08-2023 [facility] Start: 09-09-2023 End: 09-09-2023 ambulatory CATHERINE BAEZA Not Available Start: 09-06-2023 End: 09-06-2023 ambulatory DEVEN Candace RUSSEL [facility] Start: 08-12-2023 End: 08-12-2023 ambulatory DEVEN [...] Date Procedure Procedure Detail Performing Clinician Start: 01-13-2024 Urnls dip stick/tabl et rgnt non-auto w/o micrscp Deven Russel DO Work Phone: Start: 12-26-2023 Urnls dip stick/tabl et rgnt [...] congenital anomaly Expected: 12/23/2024 (Approximate), Expires: 12/23/2024 [facility] Work Phone: Comment on above: Expected: 12/23/2024 (Approximate), Expires: 12/23/2024 Start: 12-03-2024 Tobacco Screening Tobacco Screening [facility] Start: 09-05-2024 Adult BMI Screening Adult BMI Screen ing [facility] Start: 01-13-2024 End: 01-13-2024 Patient encounter procedure [facility] Comment on above: Arrived Start: 01-01-2024 End: 01-01-2024 Patient encounter procedure 01/01/2024 11:00 AM EST Appointment [facility] [address] [place] [address] [facility] Start: 12-26-2023 End: 12-26-2023 Patient encounter procedure 12/26/2023 3:50 PM EST Routine [facility] [address] [place] [id number] Catherine Baeza PA [address] [place], [place] [address] [place] [address] Arrived [facility] Comment on above: Arrived Start: 12-26-2023 End: 12-25-2024 Strep B DNA probe, amplification Strep B DNA probe, amplification Lab Routine Third trimester Expected: 12/26/2023 (Approximate), Expires: 12/25/2024 [facility] Work Phone: Comment on above: Expected: 12/26/2023 (Approximate), Expires: 12/25/2024 Start: 12-25-2023 End: 12-25-2023 Patient encounter procedure 12/25/2023 3:50 PM EST Routine [facility] [address] [place] [phone] Catherine Baeza, PA [address] [place] [place] [address] [facility] Start: 12-12-2023 End: 12-12-2023 Patient encounter procedure 12/12/2023 9:30 AM EDT Routine [facility] [address] [place] [phone] Deven Goode, [address] [place] [address] [facility] Start: 10-20-2023 Influenza vaccination Influenza Vacc ine [facility] Start: 10-20-2019 Influenza vaccination Flu vaccine (# 1) [place], [place] Start: 2013 Screening for malign ant neoplasm of cervix Pap Smear [facility] Start: 06-01-2011 DTaP,Tdap and Td Vaccines (1 - Tdap) DTaP,Tdap and Td Vaccines (1 - Tdap) [facility] Start: 2010 Adult BMI Follow Up Plan Adult BMI Follow Up Plan [facility] Start: 2004 Depression Screening Depression Scre [facility] Bacteria identified in Urine by Culture Urine culture Microbiology Routine Dysuria Ordered: 11/27/2023 [facility] Work Phone: Comment on above: Ordered: 11/27/2023 Payers Date Payer Category Payer [place] Amanuel Lin [employer] [id number] 2022 Amanuel [employer] - Other [employer] [id number] 2022 Unknown BCBS BCBS xxxxxx [id number] 2022-Present [phone] [id number] [place], [place] [address] [id number] 2022 Unknown [id number] 1992 Unknown [id number] 2.16840.1.414833.3.579.2. 593 1992 Unknown [id number] 2.840.1.156329.3.579.2. 593 1992 Unknown [id number] 2.840.1.022843.3.579.2. 1285 1992 Unknown [id number] 2.840.1.120296.3.579.2. 1285 1992 Unknown [id number] 2.16840.1.114520.3.579.2. 1285 1992 Unknown [id number] 2.16840.1.248783.3.579.2. 1285 1992 Unknown [id number] 2.16840.1.288582.3.579.2. 1285 1992 Unknown [id number] 2.16840.1.329075.3.579.2. 1285 1992 Unknown [id number] 2.16840.1.888556.3.579.2. 9 1992 Unknown [id number] 2.16.840.1.937881.3.579.2. 1258 1992 Unknown [id number] 2.16.840.1.684446.3.579.2. 1258 1992 Unknown [id number] 2.16.840.1.010137.3.579.2. 1258 1992 Unknown [id number] 2.16.840.1.645557.3.579.2. 1258 1992 Unknown [id number] 2.16.840.1.631019.3.579.2. 1258 1992 Unknown [id number] 2.16.840.1.355678.3.579.2. 1258 1992 Unknown [id number] 2.16.840.1.057860.3.579.2. 1258 1992 Unknown [id number] 2.16.840.1.900440.3.579.2. 1258 1992 Unknown [id number] 2.16.840.1.876420.3.579.2. 1258 1992 Unknown [id number] 2.16.840.1.992565.3.579.2. 1258 1992 Unknown [id number] 2.16.840.1.035267.3.579.2. 9 1959 Unknown [id number] Social History Date Type Detail Facility [facility] Start: 1990 [facility] Start: 07-30-2023 End: 09-06-2023 Tobacco smoking status PAIS Never smoked tobacco [facility] Start: 07-30-2023 End: 09-06-2023 Tobacco use and exposure Smokeless tobacco non-user [facility] Start: 07-30-2023 End: 12-04-2023 History of Social function [facility] Start: 07-30-2023 End: 12-04-2023 Tobacco use panel [facility] Start: 05-01-2023 [facility] Start: 12-04-2023 Alcoholic beverage intake Ex-drinker (finding) [facility] Within the past 12 months we worried whether our food would run out before we got money to buy more. Never True [facility] Start: 08-15-2023 Sex Female (finding) [facility] Clinical Notes 04-21-2020 to 01-13-2024 Bindu Bravo, MARLINE - 01/13/2024 3:50 PM DEMARCUS Price - 01/06/2024 8:50 AM DEMARCUS Price - 01/01/2024 8:40 AM DEMARCUS Price - 12/26/2023 3:50 PM Brea Bravo LPN - 12/12/2023 9:30 AM EDT Note Date & Type Note Facility 01-13-2024 History of Presen t illness Narrative Reason for Appointment: Patient ID: Mya Olivas is a 33 y.o. female who presents for No chief complaint on file. Patient presents today for Return OB appointment. MEDICATIONS Current Outpatient Medications Medication Instructions Vit-Fe Fumarate-FA ( Vitamin Plus Low Iron) 27-1 MG tablet 1 each, Every 24 hours Vit-Fe Fumarate-FA ( Vitamins) [...] Constitutional: Appearance: Normal appearance. She is well-developed. Genitourinary: Vulva normal. Cardiovascular: Rate and Rhythm: Normal rate and [...] nursing note reviewed. Exam conducted with a underwater trapper present. Vitals: Estimated body mass index is 37.09 kg/m as calculated from the following: Height as of 05/16/22: 5' 2 . Weight as of this encounter: 202 lb 12.8 oz. BP: 100/60 Patient's last menstrual period was 04/10/2023. ASSESSMENT & PLAN ICD-10-CM 1. 38 weeks gestation of Z3A.38 POCT urinalysis dipstick manually resulted 2. Third trimester Z34.93 POCT urinalysis dipstick manually resulted Patient presents today for a routine obstetrics appointment. Patient is currently 38w5d with a Estimated Date of Delivery: 01/22/24. Patient to have IOL on 01/15/24. Patient signed consents last week for induction of labor. Patient is currently dilated 1-2cm. Patient to return to clinic for post visit. Documented by Bindu Bravo LPN on behalf of: Deven Goode DO documented in this encounter [facility] 01-06-2024 History of Presen t illness Narrative Reason [...] Diagnosis Date ADHD (attention deficit hyperactivity disorder) ([facility]) HISTORY PAST MEDICAL HISTORY SOCIAL HISTORY Past [...] Constitutional: Appearance: Normal appearance. She is well-developed. Genitourinary: Vulva normal. Cardiovascular: Rate and Rhythm: Normal rate and [...] nursing note reviewed. Exam conducted with a underwater trapper present. Vitals: Estimated body mass index is 36.58 kg/m as calculated from the following: Height as of 05/16/22: 5' 2 . Weight as of this encounter: 200 lb. BP: 112/70 Patient's last menstrual period was 04/10/2023. ASSESSMENT & PLAN ICD-10-CM 1. Third trimester Z34.93 2. 37 weeks gestation of Z3A.37 Patient presents today for a routine obstetrics appointment. Patient is currently 37w5d with a Estimated Date of Delivery: 01/22/24. Patient complaints of numbness throughout the night in both hands. Patient to sign IOL for 01/15/24. Patient to return to clinic in 1 week. Documented by Bindu Bravo LPN on behalf of: DEMARCUS Ross documented in this encounter [facility] 01-01-2024 History of Presen t illness Narrative Reason [...] Diagnosis Date ADHD (attention deficit hyperactivity disorder) ([facility]) HISTORY PAST MEDICAL HISTORY SOCIAL HISTORY Past Medical History: Diagnosis Date ADHD (attention deficit hyperactivity disorder) ([facility]) Social History Tobacco Use Smoking status: Never [...] 05/16/22: 5' 2 . Weight as of 11/7/24: 196 lb. BP: Patient's last menstrual period was 04/10/2023. ASSESSMENT & PLAN ICD-10-CM 1. Third trimester Z34.93 2. 37 weeks gestation of Z3A.37 Return OB: Patient presents today for a routine obstetrics appointment. Patient is currently 37w0d . Patient states she is doing well but has complaints of being tired due to current . Patient has verbalizes frequent movement. labor precautions was discussed/given and patient was instructed to perform kick counts three times a day. No orders of the defined types were placed in this encounter. Follow Up: Patient is to return to office in 1 week for routine OB appointment. Documented by DEMARCUS Ross on behalf of: DEMARCUS Ross documented in this encounter [facility] 12-26-2023 History of Presen t illness Narrative [...] Diagnosis Date ADHD (attention deficit hyperactivity disorder) ([facility]) HISTORY PAST MEDICAL HISTORY SOCIAL HISTORY Past Medical History: Diagnosis Date ADHD (attention deficit hyperactivity disorder) ([facility]) Social History Tobacco Use Smoking status: Never [...] of: DEMARCUS Ross documented in this encounter [facility] 12-23-2023 Miscellaneous Notes CALLED PT AND LEFT A MESSAGE FOR HER TO MAKE A THIRTY MIN GROWTH U/S WITH MFM IN [place] OR HERE AT [facility]. THANK YOU LOYDA documented in this encounter [facility] 12-23-2023 Telephone encounter Note CALLED PT AND LEFT A MESSAGE FOR HER TO MAKE A THIRTY MIN GROWTH U/S WITH MFM IN [place] OR HERE AT [facility]. THANK YOU LOYDA [facility] 12-12-2023 History of Presen t illness [...] Diagnosis Date ADHD (attention deficit hyperactivity disorder) ([facility]) HISTORY PAST MEDICAL HISTORY SOCIAL HISTORY Past Medical History: Diagnosis Date ADHD (attention deficit hyperactivity disorder) ([facility]) Social History Tobacco Use Smoking status: Never [...] nursing note reviewed. Exam conducted with a underwater trapper present. Vitals: Estimated body mass index is [...] antibiotic for UTI. Patient voiced that at [facility] they discussed extra fluid & reassurance [...] Deven Goode DO documented in this encounter [facility] 12-09-2023 Miscellaneous Notes I LEFT A MESSAGE FOR PT TO CALL ME, I WILL CALL PT BACK TO SCHEDULE HER FOR A GROWTH U/S, ALSO A VIDEO VISIT WITH ONE OF THE DRS documented in this encounter [facility] 12-09-2023 Telephone encounter Note I LEFT A MESSAGE FOR PT TO CALL ME, I WILL CALL PT BACK TO SCHEDULE HER FOR A GROWTH U/S, ALSO A VIDEO VISIT WITH ONE OF THE DRS [facility] 12-06-2023 Miscellaneous Notes I LEFT A MESSAGE FOR PT TO CALL ME SO WE CAN SCHEDULE A GROWTH U/S. PT THINKS SHE ONLY NEEDS U/S AT [facility]IMARY OB OFFICE. CATHERINE Shahid SAID SHE NEEDS TO COME HERE. THANK YOU documented in this encounter [facility] 12-06-2023 Telephone encounter Note I LEFT A MESSAGE FOR PT TO CALL ME SO WE CAN SCHEDULE A GROWTH U/S. PT THINKS SHE ONLY NEEDS U/S AT [facility]IMARY [facility] OFFICE. CATHERINE Shahid SAID SHE NEEDS TO COME HERE. THANK YOU [facility] 12-04-2023 History of Presen t illness [...] mouth in the morning., Disp: , Rfl: [id number] acid ( 19) 29 mg iron- 1 [...] ALYSIA LEE MD documented in this encounter [facility] 11-27-2023 History of Presen t illness Narrative [...] Diagnosis Date ADHD (attention deficit hyperactivity disorder) ([facility]) HISTORY PAST MEDICAL HISTORY SOCIAL HISTORY Past Medical History: Diagnosis Date ADHD (attention deficit hyperactivity disorder) ([facility]) Social History Tobacco Use Smoking status: Never [...] Patient scheduled for US NEXT WEEK WITH [facility], orders for nst and bpp sent for starting Orders Placed This Encounter Procedures POCT urinalysis dipstick manually resulted Follow Up: Patient is to return to office in 2 weeks for routine OB appointment. Documented by Leah Mason on behalf of: DEMARCUS Ross documented in this encounter [facility] 08-16-2020 Note DATE OF [...] complications. Course: Without complications. Sukhdeep Schaffer MD, [facility] Dictated: 08/13/2020 #[id number] Typed: 08/15/2020 #[id number] cc: Sukhdeep Schaffer MD, [facility] Comment on above: Result Comment: Elec tronically Signed By: Karime MACEDO, Sukhdeep Olivera\.br\Date and Time Signed: 08/16/20 08:09 EDT 08-05-2020 Note The following Patien t Education Materials have been given to the patient: EducationMaterial [facility] 08-04-2020 Note Patient: LAZARO MYLES [...] Attention deficit hyperactivity disorder / SNOMED CT 2203671318 / Confirmed Chronic fatigue syndrome / SNOMED CT 36104494 / Confirmed Depression during / SNOMED CT 5556298899 / Confirmed Insomnia / SNOMED CT 531367288 / Confirmed Obesity / ICD-9-CM 278.00 / Possible Obesity complicating , third trimester / SNOMED CT 3501240100 / Confirmed Ovarian cyst / SNOMED CT 577117559 / Confirmed / SNOMED CT 409668554 / Confirmed labor / Patient Care / Confirmed Supervision of high risk in third trimester / SNOMED CT 32358618 / Confirmed Histories History History (1,0,0,2) # 1 Baby 1 Outcome Date: 2008 Outcome: Live Outcome or Result: Vaginal Gender: Female Gest Age: 41 weeks Wt: 3232 g [facility]: [facility] Labor: -- Child's Name: -- Baby's Father: -- # 2 Baby 1 Outcome Date: 05/26/2013 Outcome: Live Outcome or Result: Vaginal Gender: Male Gest Age: 39 weeks 3 days Wt: 3390 g Hospital: [facility] Labor: 5 hr 55 min Child's Name: -- Baby's Father: -- Complications: None Complications: None Family History: Hypertension Father Mother Diabetes mellitus type 2 Father Procedure history: No active procedure history items have been selected or recorded. 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 Home/Environment Lives with Children, Significant other. [...] hearing, Oral mu (more content not included)... [facility] Comment on above: Result Comment: Elec tronically Signed By: LAURA MACEDO, Funmilayo Ryan\.rosye\Date and Time Signed: 08/04/20 13:03 EDT 07-31-2020 Note The following Patien t Education Materials have been given to the patient: [facility] 07-26-2020 Note The following Patien t Education Materials have been given to the patient: [facility] 07-11-2020 Note HOSPITAL REGULATIONS : [...] Sukhdeep Schaffer MD, [facility] Dictated: 07/08/2020 #[id number] Typed 07/08/2020 #[id number] cc: Sukhdeep Schaffer MD, [facility] Comment on above: Result Comment: Elec tronically Signed By: Karime MACEDO, Sukhdeep Olivera\.br\Date and Time Signed: 07/11/20 07:40 EDT 07-08-2020 Note The following Patien t Education Materials have been given to the patient: [facility] 04-21-2020 Note The following Patien t Education Materials have been given to the patient: [facility] Evaluation note Diagnosis 32 weeks gestation of Third trimester state, incidental Dysuria [facility] Diagnosis Obesity affecting in second trimester, unspecified obesity type- Primary Polyhydramnios, antepartum, single or unspecified fetus [facility] Diagnosis Third trimester state, incidental 34 weeks gestation of Accessory placenta, third trimester [facility]* Diagnosis Polyhydramnios, antepartum, single or unspecified fetus- Primary Lymphedema Other noninfectious lymphedema Family history of congenital anomaly Family history of congenital anomalies [facility] Diagnosis Third trimester state, incidental 36 weeks gestation of documented [facility]* Diagnosis Third trimester state, incidental 37 weeks gestation of documented [facility]* Diagnosis Third trimester state, incidental 37 weeks gestation of [facility]* Diagnosis 38 weeks gestation of Third trimester state, incidental documented in this encounter [facility] HealthcareInstructionsNot on filedocumented in this encounterPro[facility] System[facility]ructionsNot on filedocumented in this encounterProMedimt Health SystemInstructionsNot on filedocumented in this encounter[facility] Summary Purpose Family History No Family History Records FoundNo Family History Records FoundNo Family History Records FoundNo Family History Records Found Advance Directives No Advanced Directives Records FoundNo Advanced Directives Records FoundNo Advanced Directives Records FoundNo Advanced Directives Records Found Additional Source Comments INFORMATION SOURCE (unrecogn ized section and content) DATE CREATED AUTHOR 09/15/2020 [facility] DATE CREATED AUTHOR AUTHOR'S ORGANIZ ATION 06/29/2022 [facility] DATE CREATED AUTHOR AUTHOR'S ORGANIZ ATION 01/03/2024 [facility] DATE CREATED AUTHOR AUTHOR'S ORGANIZ ATION 01/07/2024 [facility] EPIC Reason for Visit (unrecogniz ed [...] BE BASED ON THE PRIMARY CLINICAL RECORDS. [facility]. provides no warranty or guarantee of the accuracy or completeness of information in this document.
[2024-01-15] MEDS: 0.9 % SODIUM CHLORIDE 1,000 ML 125 ML IV ×2 (05:55→14:05)
[2024-01-15] MEDS: OXYTOCIN/0.9 % SODIUM CHLORIDE 10 UNITS/500 ML PLAST..BAG 6 UNIT IV (06:02)
[2024-01-15 06:09] LABS: Hematocrit 38.5 % (36.0-48.0); Hemoglobin 12.9 g/dL (12.0-16.0); Mean Corpuscular HGB Conc 33.5 g/dL (29.9-35.2); Mean Corpuscular Hemoglobin 29.5 pg (26.7-34.0); Mean Corpuscular Volume 87.9 fL (81.0-99.0); Mean Platelet Volume 10.2 fL (9.5-13.5); Platelet Count 285 10^3/uL (150-450); Red Blood Count 4.38 10^6/uL (4.20-5.40); Red Cell Distribution Width 13.3 % (11.0-15.0); White Blood Count 8.9 10^3/uL (4.0-11.0)
[2024-01-15 06:35] LABS: Cannabinoid Screen Urine NEGATIVE (NEGATIVE)
[2024-01-15 06:36] LABS: Amphetamine Screen Urine NEGATIVE (NEGATIVE); Barbiturates Screen Urine NEGATIVE (NEGATIVE); Benzodiazepines Screen Urine NEGATIVE (NEGATIVE); Buprenorphine Screen Urine NEGATIVE (NEGATIVE); Cocaine Screen Urine NEGATIVE (NEGATIVE); Methadone Screen Urine NEGATIVE (NEGATIVE); Methamphetamines Screen Urine NEGATIVE (NEGATIVE); Opiate Screen Urine NEGATIVE (NEGATIVE); Oxycodone Screen Urine NEGATIVE (NEGATIVE); Phencyclidine Screen Urine NEGATIVE (NEGATIVE); Tricyclic Antidepressant Urine NEGATIVE (NEGATIVE)
[2024-01-15] MEDS: 0.9 % SODIUM CHLORIDE 1,000 ML 1000 ML IV (10:33)
[2024-01-15] MEDS: ROPIVACAINE HCL/PF 400 MG/200 ML PREMIX 6 MG EPIDURAL (11:09)
[2024-01-15] MEDS: OXYTOCIN/0.9 % SODIUM CHLORIDE 20 UNITS/1,000 ML PLAST..BAG 125 UNIT IV (17:12)
--- NOTE | 2024-01-15 17:15 | PM.OBPRCVD ---
Procedure Intrapartal events: None Induction method: per pitocin protocol Delivery augmentation: rupture of membranes and pitocin Delivery monitor: external FHT and external uterine Route of delivery: Episiotomy Description: none L&D Laceration Description: none Estimated blood loss (mL): 250 Anesthesia type: Epidural Disposition: floor Delivery date: 01/15/24 Gender: male presentation: vertex Placental delivery description: Spontaneous cord description: 3 Vessels
[2024-01-15] MEDS: BENZOCAINE/MENTHOL 85 GRAM SPRAY BOTTLE 1 APPLIC TOPICAL (17:45)
[2024-01-15] MEDS: GLYCERIN/WITCH HAZEL PADS 1 PAD TOPICAL (17:45)
--- NOTE | 2024-01-15 20:48 | W.PC.ACHO ---
Registration Status: ADM IN Primary Language: Hungarian Preferred Language: Hungarian Report given to ShannonAfsaneh at 1900. Care relinquished. Active Medications Generic Name Dose Route Start Last Admin Trade Name Morenita PRN Reason Stop Dose Admin Acetaminophen 650 mg 01/15/24 17:16 Acetaminophen 325 Mg Tablet PO Q6H PRN Mild Pain Al Hydroxide/Mg Hydroxide 2,400 mg 01/15/24 17:16 Magnesium Hydroxide 2,400 Mg/10 Ml Oral.Susp PO Q6H PRN Dyspepsia Benzocaine/Menthol 1 applic 01/15/24 17:16 01/15/24 17:45 Benzocaine/Menthol 85 Gram [place] Bottle TOPICAL 1 applic Q2H PRN Administration Pain Carboprost Tromethamine 250 mcg 01/15/24 05:07 Carboprost Tromethamine 250 Mcg/Ml 1 Ml Vial IM 01/17/24 05:07 Q15M PRN Bleeding Diphenhydramine HCl 25 mg 01/15/24 05:33 Diphenhydramine Hcl 50 Mg/Ml Vial IV 01/16/24 05:33 Q6H PRN Itching Diphtheria/Pertussis/Tetanus Vacc 0.5 ml 01/17/24 09:00 Adacel Diph,Pertuss(Acell),Tet Vac/Pf 0.5 Ml Adult Syringe IM 01/17/24 09:01 .ONCE ONE Docusate Sodium 100 mg 01/16/24 09:00 Docusate Sodium 100 Mg Capsule PO BID KAILEE Ephedrine Sulfate 5 mg 01/15/24 05:33 Ephedrine Sulfate 50 Mg/Ml Vial IV 01/16/24 05:33 Q5M PRN Blood Pressure - Low Fentanyl Citrate 100 mcg 01/15/24 05:33 Fentanyl Citrate/Pf 100 Mcg/2 Ml Vial EPIDURAL ONCE PRN epidural Fentanyl Citrate 100 mcg 01/15/24 05:33 Fentanyl Citrate/Pf 100 Mcg/2 Ml Vial EPIDURAL ONCE PRN epidural Tranexamic Acid 1,000 mg/ 110 mls @ 440 mls/hr 01/15/24 05:07 Sodium Chloride IV 01/17/24 05:07 ONCE PRN Uterine Bleeding Sodium Chloride 1,000 mls @ 125 mls/hr 01/15/24 05:30 01/15/24 17:12 Sodium Chloride 0.9% 1,000 Ml IV 0 mls/hr .Q8H KAILEE Infusion Oxytocin/Sodium Chloride 10 units in 500 mls @ 6 mls/hr 01/15/24 05:15 01/15/24 17:12 Pitocin 10 Unit/500 Ml-Ns IV 0 milliunit/min TITR KAILEE 0 mls/hr Infusion Protocol 2 MILLIUNIT/MIN Ropivacaine/Sodium Chloride 400 mg in 200 mls @ 6 mls/hr 01/15/24 05:45 01/15/24 17:12 Naropin 0.2% 400 Mg/200 Ml Bag EPIDURAL 0 mls/hr Q24H KAILEE Infusion Ibuprofen 600 mg 01/15/24 17:16 Ibuprofen 600 Mg Tablet PO Q6H PRN Moderate Pain Lidocaine 5 ml 01/15/24 05:07 Lidocaine Viscous 2% 15 Ml Solution TOPICAL 01/17/24 05:08 ONCE PRN Pain Lidocaine 1 ml 01/15/24 05:07 Lidocaine Hcl 1% 200 Mg/20 Ml Mdv INJ 01/17/24 05:08 ONCE PRN Pain Lidocaine 5 ml 01/15/24 05:33 Lidocaine Hcl 2% Pf 100 Mg/5 Ml Vial INJ 01/16/24 05:33 Q1H PRN epidural Measles/Mumps/Rubella Vaccine Live 0.5 ml 01/17/24 09:00 Measles,Mumps,Rubella Vacc/Pf 0.5 Ml Vial SQ 01/17/24 09:01 .ONCE ONE Methylergonovine Maleate 0.2 mg 01/15/24 05:07 Methylergonovine Maleate 0.2 Mg/Ml Ampule IM 01/17/24 05:07 ONCE PRN Uterine Contractility/Contract Methylergonovine Maleate 0.2 mg 01/15/24 05:07 Methylergonovine Maleate 0.2 Mg Tablet PO 01/17/24 05:07 Q4H PRN Uterine Contractility/Contract Misoprostol 600 mcg 01/15/24 05:07 Misoprostol 100 Mcg Tablet PO 01/17/24 05:07 ONCE PRN Uterine Bleeding Misoprostol 800 mcg 01/15/24 05:07 Misoprostol 100 Mcg Tablet SL 01/17/24 05:07 ONCE PRN Uterine Bleeding Misoprostol 1,000 mcg 01/15/24 05:07 Misoprostol 100 Mcg Tablet CA 01/17/24 05:07 ONCE PRN Uterine Bleeding Nalbuphine HCl 10 mg 01/15/24 05:07 Nalbuphine Hcl 10 Mg/Ml Ampule IV Q3H PRN Pain Naloxone HCl 0.4 mg 01/15/24 05:33 Naloxone Hcl 0.4 Mg/Ml Vial IV 01/16/24 05:34 ONCE PRN respiratory distress Ondansetron HCl 4 mg 01/15/24 05:07 Ondansetron Pf 4 Mg/2 Ml Vial IV Q6H PRN Nausea And Vomiting Ondansetron HCl 4 mg 01/15/24 05:07 Ondansetron 4 Mg Rapdis Tablet SL Q6H PRN Nausea And Vomiting Oxytocin 10 unit 01/15/24 05:07 Oxytocin 10 Unit/Ml Vial IM 01/17/24 05:07 ONCE PRN Bleeding Senna 17.2 mg 01/15/24 20:00 Sennosides 8.6 Mg Tablet PO QHS PRN Constipation Simethicone 80 mg 01/15/24 17:16 Simethicone 80 Mg Tab.Chew PO QID PRN Abdominal Distention Temazepam 15 mg 01/15/24 17:16 Temazepam 15 Mg Capsule PO QHS PRN Sleep Witch Zita/Glycerin 1 pad 01/15/24 17:16 01/15/24 17:45 Glycerin/Witch Zita Pads TOPICAL 1 pad Q2H PRN Administration Pain Diet Category Date Time Status Regular Consistency Diet Diet 01/15/24 17:16 Active Consults Category Date Time Status Consult to Anesthesiology Routine Cons 01/15/24 Ordered IV Insertion/Site Date of IV Line Insertion [20g 01/15/24 left Hand] IV Insertion Time [20g left 05:47 Hand] Neurology Patient orientation (short person,place,time,situation list) Respiratory Oxygen Delivery Method Room Air Oxygen Delivery Method Room Air Catheter Urinary Catheter Date of 01/15/24 Insertion [Urethral] Urinary Catheter Time of 13:17 Insertion [Urethral] Date Urinary Catheter Removed 01/15/24 [Urethral] Date Urinary Catheter Removed 01/15/24 Date Urinary Catheter Removed 01/15/24 Date Urinary Catheter Removed 01/15/24 Date Urinary Catheter Removed 01/15/24 Date Urinary Catheter Removed 01/15/24 Date Urinary Catheter Removed 01/15/24 Date Urinary Catheter Removed 01/15/24 Date Urinary Catheter Removed 01/15/24 Date Urinary Catheter Removed 01/15/24 Time Urinary Catheter 16:55 Discontinued [Urethral]
[2024-01-15] MEDS: IBUPROFEN 600 MG TABLET PO (22:09)
[2024-01-16 00:18] VITALS: TEMP 36.4
[2024-01-16 00:19] VITALS: BP 106/60; PULSE 74
[2024-01-16] MEDS: ACETAMINOPHEN 325 MG TABLET 650 MG PO (02:34)
[2024-01-16] MEDS: IBUPROFEN 600 MG TABLET PO ×2 (06:18→15:24)
[2024-01-16 06:19] LABS: Basophils Percent Auto 0.3 % (0.2-2.0); Eosinophils Absolute Auto 0.1 10^3/uL (0.0-0.7); Eosinophils Percent Auto 0.5 % (0.9-7.0); Hematocrit 35.5 % (36.0-48.0); Hemoglobin 11.8 g/dL (12.0-16.0); Immature Granulocytes Abs Auto 0.06 10^3/uL (0.00-0.03); Immature Granulocytes Pct Auto 0.5 % (0.0-0.5); Lymphocytes Absolute Auto 2.8 10^3/uL (1.2-3.8); Lymphocytes Percent Auto 23.6 % (20.5-60.0); Mean Corpuscular HGB Conc 33.2 g/dL (29.9-35.2); Mean Corpuscular Hemoglobin 29.3 pg (26.7-34.0); Mean Corpuscular Volume 88.1 fL (81.0-99.0); Mean Platelet Volume 10.3 fL (9.5-13.5); Monocytes Absolute Auto 0.9 10^3/uL (0.3-0.8); Monocytes Percent Auto 7.8 % (1.7-12.0); Neutrophils Absolute Auto 7.9 10^3/uL (1.4-6.5); Neutrophils Percent Auto 67.3 % (43.0-75.0); Platelet Count 247 10^3/uL (150-450); Red Blood Count 4.03 10^6/uL (4.20-5.40); Red Cell Distribution Width 13.5 % (11.0-15.0); White Blood Count 11.7 10^3/uL (4.0-11.0)
[2024-01-16 08:23] VITALS: BP 108/62; PULSE 69
[2024-01-16 08:25] VITALS: BP 108/62; PULSE 69; TEMP 36.8
[2024-01-16] MEDS: DOCUSATE SODIUM 100 MG CAPSULE PO (08:26)
--- NOTE | 2024-01-16 10:27 | P.OBPN_ITS ---
OB - PN: Subj Subjective Patient comments: no complaints [place] status: doing well [place] feeding status: exclusively Exam Constitutional Vital Signs, click to edit/add: Last Vital Signs Temp 98.2 F 01/16/24 08:25 Pulse 69 01/16/24 08:25 Resp 16 01/16/24 08:25 BP 108/62 01/16/24 08:25 O2 Del Method Room Air 01/16/24 08:25 Common normals: no apparent distress General appearance: cooperative and comfortable Orientation/consciousness: Yes awake HENMT Common normals: normocephalic Eye Common normals: EOMs intact bilaterally General eye: normal appearance of both eyes Neck & C-Spine Common normals: no lymphadenopathy General: normal visual inspection Lymph Lymphatic: no lymphadenopathy noted Chest Common normals: inspection of chest normal Respiratory Common normals: normal respiratory effort Effort & inspection: able to speak in complete sentences Cardio Common normals: regular rate and regular rhythm Rhythm: regular rhythm GI Common normals: Normal to inspection, nondistended, normoactive bowel sounds present Inspection: normal to inspection Palpation: soft Back & Pelvis Common normals: no CVA tenderness Extremity Common normals: normal to inspection Neuro Common normals: oriented x3 Psych Attitude: calm Thought process: normal thought process Results Labs Labs: Short CBC 01/16/24 Range/Units 05:55 WBC 11.7 H (4.0-11.0) 10^3/uL Hgb 11.8 L (12.0-16.0) g/dL Hct 35.5 L (36.0-48.0) % Plt Count 247 (150-450) 10^3/uL Urinary Catheter Management Urinary Catheter Management Urethral: Cath placed during this visit: yes, but has since been removed by the nurse Insertion date: 01/15/24 Insertion time: 13:17 Removal date: 01/15/24 Removal time: 16:55 OB - PN: A/P Assessment and Plan (1) Term : Plan term Plan - Vaginal Delivery day: 1 Plan: routine care Time Spent with Patient Time: Total time spent is greater than 50% in coordination of care (as documented) at patient's floor/unit and/or counseling patient: Total time spent with greater than 50% in coordination of care (as documented) at patient's floor/unit and/or counseling patient: less than 15 minutes
--- NOTE | 2024-01-16 19:44 | W.PC.EDHO ---
Primary Language: Latvian Preferred Language: Latvian Reported on discharge needs, pain, prescription & circ education needed . Active Medications Generic Name Dose Route Start Last Admin Trade Name Freq PRN Reason Stop Dose Admin Acetaminophen 650 mg 01/15/24 17:16 01/16/24 02:34 Acetaminophen 325 Mg Tablet PO 650 mg Q6H PRN Administration Mild Pain Al Hydroxide/Mg Hydroxide 2,400 mg 01/15/24 17:16 Magnesium Hydroxide 2,400 Mg/10 Ml Oral.Susp PO Q6H PRN Dyspepsia Benzocaine/Menthol 1 applic 01/15/24 17:16 01/15/24 17:45 Benzocaine/Menthol 85 Gram [place] Bottle TOPICAL 1 applic Q2H PRN Administration Pain Carboprost Tromethamine 250 mcg 01/15/24 05:07 Carboprost Tromethamine 250 Mcg/Ml 1 Ml Vial IM 01/17/24 05:07 Q15M PRN Bleeding Diphtheria/Pertussis/Tetanus Vacc 0.5 ml 01/17/24 09:00 Adacel Diph,Pertuss(Acell),Tet Vac/Pf 0.5 Ml Adult Syringe IM 01/17/24 09:01 .ONCE ONE Docusate Sodium 100 mg 01/16/24 09:00 01/16/24 08:26 Docusate Sodium 100 Mg Capsule PO 100 mg BID KAILEE Administration Fentanyl Citrate 100 mcg 01/15/24 05:33 Fentanyl Citrate/Pf 100 Mcg/2 Ml Vial EPIDURAL ONCE PRN epidural Fentanyl Citrate 100 mcg 01/15/24 05:33 Fentanyl Citrate/Pf 100 Mcg/2 Ml Vial EPIDURAL ONCE PRN epidural Tranexamic Acid 1,000 mg/ 110 mls @ 440 mls/hr 01/15/24 05:07 Sodium Chloride IV 01/17/24 05:07 ONCE PRN Uterine Bleeding Sodium Chloride 1,000 mls @ 125 mls/hr 01/15/24 05:30 01/15/24 19:00 Sodium Chloride 0.9% 1,000 Ml IV Infused .Q8H KAILEE Infusion Oxytocin/Sodium Chloride 10 units in 500 mls @ 6 mls/hr 01/15/24 05:15 01/15/24 22:45 Pitocin 10 Unit/500 Ml-Ns IV Infused TITR KAILEE Infusion Protocol 2 MILLIUNIT/MIN Ropivacaine/Sodium Chloride 400 mg in 200 mls @ 6 mls/hr 01/15/24 05:45 01/15/24 19:00 Naropin 0.2% 400 Mg/200 Ml Bag EPIDURAL Infused Q24H KAILEE Infusion Ibuprofen 600 mg 01/15/24 17:16 01/16/24 15:24 Ibuprofen 600 Mg Tablet PO 600 mg Q6H PRN Administration Moderate Pain Lidocaine 5 ml 01/15/24 05:07 Lidocaine Viscous 2% 15 Ml Solution TOPICAL 01/17/24 05:08 ONCE PRN Pain Lidocaine 1 ml 01/15/24 05:07 Lidocaine Hcl 1% 200 Mg/20 Ml Mdv INJ 01/17/24 05:08 ONCE PRN Pain Measles/Mumps/Rubella Vaccine Live 0.5 ml 01/17/24 09:00 Measles,Mumps,Rubella Vacc/Pf 0.5 Ml Vial SQ 01/17/24 09:01 .ONCE ONE Methylergonovine Maleate 0.2 mg 01/15/24 05:07 Methylergonovine Maleate 0.2 Mg/Ml Ampule IM 01/17/24 05:07 ONCE PRN Uterine Contractility/Contract Methylergonovine Maleate 0.2 mg 01/15/24 05:07 Methylergonovine Maleate 0.2 Mg Tablet PO 01/17/24 05:07 Q4H PRN Uterine Contractility/Contract Misoprostol 600 mcg 01/15/24 05:07 Misoprostol 100 Mcg Tablet PO 01/17/24 05:07 ONCE PRN Uterine Bleeding Misoprostol 800 mcg 01/15/24 05:07 Misoprostol 100 Mcg Tablet SL 01/17/24 05:07 ONCE PRN Uterine Bleeding Misoprostol 1,000 mcg 01/15/24 05:07 Misoprostol 100 Mcg Tablet NV 01/17/24 05:07 ONCE PRN Uterine Bleeding Nalbuphine HCl 10 mg 01/15/24 05:07 Nalbuphine Hcl 10 Mg/Ml Ampule IV Q3H PRN Pain Ondansetron HCl 4 mg 01/15/24 05:07 Ondansetron Pf 4 Mg/2 Ml Vial IV Q6H PRN Nausea And Vomiting Ondansetron HCl 4 mg 01/15/24 05:07 Ondansetron 4 Mg Rapdis Tablet SL Q6H PRN Nausea And Vomiting Oxytocin 10 unit 01/15/24 05:07 Oxytocin 10 Unit/Ml Vial IM 01/17/24 05:07 ONCE PRN Bleeding Senna 17.2 mg 01/15/24 20:00 Sennosides 8.6 Mg Tablet PO QHS PRN Constipation Simethicone 80 mg 01/15/24 17:16 Simethicone 80 Mg Tab.Chew PO QID PRN Abdominal Distention Temazepam 15 mg 01/15/24 17:16 Temazepam 15 Mg Capsule PO QHS PRN Sleep Witch Zita/Glycerin 1 pad 01/15/24 17:16 01/15/24 17:45 Glycerin/Witch Zita Pads TOPICAL 1 pad Q2H PRN Administration Pain Female History Gestational age based on last 40 menstrual period Expected Date of Delivery 01/22/24 Calculated Date of Delivery 01/15/24 Pain Pain Scale [Back] 5 Pain Scale 5 Pain Scale 5 Pain Scale 6 Pain Scale 4 Pain Scale 4 Pain Scale 4 Pain Scale 6 Pain Scale Used [Back] Numeric (1 - 10) Pain Scale Used Numeric (1 - 10) Pain Scale Used Numeric (1 - 10) Pain Scale Used Numeric (1 - 10) Pain Scale Used Numeric (1 - 10) Pain Scale Used Numeric (1 - 10) IV Insertion/Site Date of IV Line Insertion [20g 01/15/24 left Hand] Oxygen Administration Oxygen Delivery Method Room Air Oxygen Delivery Method Room Air Oxygen Delivery Method Room Air Oxygen Delivery Method Room Air
[2024-01-16 20:35] VITALS: BP 113/59; PULSE 80
[2024-01-16 21:00] VITALS: TEMP 36.6
== END 2024-01-16 21:15 | disposition home or self-care (01) | DRG 807 ==
PROVIDERS: Admitting Provider Obstetrics & Gynecology; Visit Provider Obstetrics & Gynecology
DX: O69.81X0 Labor and delivery complicated by cord around neck, without compression, not applicable or unspecified (principal); Z37.0 Single live birth; Z3A.39 39 weeks gestation of pregnancy
CPT/HCPCS: 36415; 59050; 59410; 80307; 85025; 85027; 86850; 86900; 86901; 88307; J2795